=== PATIENT | male | born 1950 | race Caucasian/White ===

== ENCOUNTER 2019-12-15 13:04 | Inpatient (IN) | payer MEDICARE, OTHER ==
[~2019-12-15] VITALS: Ht 167.6 cm; Wt 65.3 kg
--- OUTSIDE RECORDS SUMMARY | ~2019-12-15 | XMS | Clinical Summary ---
Demographics + + + | Address | [address] | | | [place] [address] | + + + | Home Phone | | + + + | Preferred Language | Unknown | + + + | Marital Status | | + + + | Congregation Affiliation | Unknown | + + + | Race | Unknown | + + + | Ethnic Group | Unknown | + + + Author + + + | Author | [facility] | | | and [place] | + + + | Organization | [facility] | | | [...] | | | | | [place] [address] | | + + + + + Care Team Providers + +------+ + | Care Managing Partner [employer] Name | Role | Phone | + +------+ + | No, Physician | PCP | Unavailable | + +------+ + Allergies + + + + + + | Active Allergy | Reactions | Severity | Noted | Comments | | | | | Date | | + + + + + + | Vegetable Oil | GI Upset | Medium | 10/31/19 | Pt states that he | | | | | 18 | gets upset stomach | | | | | | when ingesting | | | | | | canola oil. | + + + + + + | Soybean Oil | GI Upset | Medium | 10/31/19 | Pt states he gets | | | | | 20 | upset stomach when | | | | | | he ingests soybean | | | | | | oil. | + + + + + + Medications + + + +---------+------+------+-------+ | Medication | Sig | Dispensed | Refills | Star | End | Statu | | | | | | t | Date | s | | | | | | Date | | | + + + +---------+------+------+-------+ | aspirin (ASPIRIN | Take 1 tablet (81 mg | 30 | 0 | 10/13 | | Activ | | ADULT LOW STRENGTH) | total) by mouth | tablet | | 0/20 | | e | | 81 MG EC tablet | Daily | | | 20 | | | + + + +---------+------+------+-------+ Active Problems Not on file Encounters +--------+ + + + + | Date | Type | Specialty | Care Team | Description | +--------+ + + + + | 10/30/ | Hospital | | Aki Capone, | Elevated troponin I | | 2019 - | Encounter | | Denzel Chan, | level (Primary Dx); | | | | | MD | Abnormal ECG; | | 10/31/ | | | | Fatigue, unspecified | | 2019 | | | | type; Generalized | | | | | | weakness | +--------+ + + + + | 10/30/ | Office | Immediate Care | Alex Frias | Dizziness (Primary | | 2019 | Visit | | [place] | Dx) | +--------+ + + + + from Last 3 Months Social History + +-------+ +--------+------+ | Tobacco Use | Types | Packs/Day | Years | Date | | | | | Used | | + +-------+ +--------+------+ | Never Smoker | | | | | + +-------+ +--------+------+ + +------+---+---+ | Smokeless Tobacco: | Chew | | | | Current User | | | | + +------+---+---+ + + + | Sex Assigned at | Date Recorded | | | | + + + | Not on file | | + + + Last Filed Vital Signs + + + + + | Vital Sign | Reading | Time Taken | Comments | + + + + + | Blood Pressure | 118/72 | 11/01/2019 7:54 AM | | | | | PDT | | + + + + + | Pulse | 90 | 11/01/2019 7:54 AM | | | | | PDT | | + + + + + | Temperature | 37 C (98.6 F) | 11/01/2019 7:54 AM | | | | | PDT | | + + + + + | Respiratory Rate | 18 | 11/01/2019 7:54 AM | | | | | PDT | | + + + + + | Oxygen Saturation | 96% | 11/01/2019 7:54 AM | | | | | PDT | | + + + + + | Inhaled Oxygen | - | - | | | Concentration | | | | + + + + + | Weight | 63.6 kg (140 lb 3.4 | 11/01/2019 3:29 AM | | | | oz) | PDT | | + + + + + | Height | 165.1 cm (5' 5") | 10/31/2019 11:33 AM | | | | | PDT | | + + + + + | Body Mass Index | 23.33 | 10/31/2019 11:33 AM | | | | | PDT | | + + + + + Plan of Treatment + + + + + | Health Maintenance | Due Date | Last | Comments | | | | Done | | + + + + + | Hepatitis C | | | | | Screening | 9 | | | + + + + + | Vaccine: | | | | | Dtap/Tdap/Td (1 - | 8 | | | | Tdap) | | | | + + + + + | Colorectal Cancer | | | | | Screening | 9 | | | | (Colonoscopy) | | | | + + + + + | Vaccine: Zoster (1 | | | | | of 2) | 9 | | | + + + + + | Vaccine: | | | | | Pneumococcal 65+ (1 | 4 | | | | of 1 - PPSV23) | | | | + + + + + | Adult Annual | | | | | Wellness Visit | 0 | | | + + + + + | Vaccine: Influenza | | | | | (#1) | 0 | | | + + + + + | Hemoglobin A1c | | 10/31/19 | | | Screening | 1 | 20 | | + + + + + Procedures + +--------+ + + + | Procedure Name | Priori | Date/Time | Associated Diagnosis | Comments | | | ty | | | | + +--------+ + + + | TROPONIN I | Routin | 11/01/2019 | | Results for this | | | e | 11:54 AM | | procedure are in the | | | | PDT | | results section. | + +--------+ + + + | TROPONIN I | Routin | 11/01/2019 | | Results for this | | | e | 5:44 AM | | procedure are in the | | | | PDT | | results section. | + +--------+ + + + | PROTIME INR | Routin | 11/01/2019 | | Results for this | | | e | 4:34 AM | | procedure are in the | | | | PDT | | results section. | + +--------+ + + + | MAGNESIUM | Routin | 11/01/2019 | | Results for this | | | e | 4:34 AM | | procedure are in the | | | | PDT | | results section. | + +--------+ + + + | CBC NO DIFFERENTIAL | Routin | 11/01/2019 | | Results for this | | | e | 4:34 AM | | procedure are in the | | | | PDT | | results section. | + +--------+ + + + | BASIC METABOLIC | Routin | 11/01/2019 | | Results for this | | PANEL | e | 4:34 AM | | procedure are in the | | | | PDT | | results section. | + +--------+ + + + | TROPONIN I | Routin | 11/01/2019 | | Results for this | | | e | 12:17 AM | | procedure are in the | | | | PDT | | results section. | + +--------+ + + + | HEMOGLOBIN A1C | Add-On | 10/31/2019 | | Results for this | | | | 8:03 PM | | procedure are in the | | | | PDT | | results section. | + +--------+ + + + | TROPONIN I | Routin | 10/31/2019 | | Results for this | | | e | 6:23 PM | | procedure are in the | | | | PDT | | results section. | + +--------+ + + + | ECHO COMPLETE | Routin | 10/31/2019 | | Results for this | | | e | 5:24 PM | | procedure are in the | | | | PDT | | results section. | + +--------+ + + + | ECG 12 LEAD | STAT | 10/31/2019 | | Results for this | | | | 1:12 PM | | procedure are in the | | | | PDT | | results section. | + +--------+ + + + | PROCALCITONIN, SERUM | STAT | 10/31/2019 | | Results for this | | | | 12:08 PM | | procedure are in the | | | | PDT | | results section. | + +--------+ + + + | XR CHEST AP PORTABLE | STAT | 10/31/2019 | | Results for this | | | | 12:04 PM | | procedure are in the | | | | PDT | | results section. | + +--------+ + + + | AMMONIA | STAT | 10/31/2019 | | Results for this | | | | 11:53 AM | | procedure are in the | | | | PDT | | results section. | + +--------+ + + + | CBC WITH | STAT | 10/31/2019 | | Results for this | | DIFFERENTIAL | | 11:49 AM | | procedure are in the | | | | PDT | | results section. | + +--------+ + + + | LIPID PANEL | Add-On | 10/31/2019 | | Results for this | | | | 11:48 AM | | procedure are in the | | | | PDT | | results section. | + +--------+ + + + | C-REACTIVE PROTEIN | Routin | 10/31/2019 | | Results for this | | | e | 11:48 AM | | procedure are in the | | | | PDT | | results section. | + +--------+ + + + | LIPASE | STAT | 10/31/2019 | | Results for this | | | | 11:48 AM | | procedure are in the | | | | PDT | | results section. | + +--------+ + + + | CK TOTAL | STAT | 10/31/2019 | | Results for this | | | | 11:48 AM | | procedure are in the | | | | PDT | | results section. | + +--------+ + + + | B TYPE NATRIURETIC | STAT | 10/31/2019 | | Results for this | | PEPTIDE | | 11:48 AM | | procedure are in the | | | | PDT | | results section. | + +--------+ + + + | MAGNESIUM | STAT | 10/31/2019 | | Results for this | | | | 11:48 AM | | procedure are in the | | | | PDT | | results section. | + +--------+ + + + | TSH | STAT | 10/31/2019 | | Results for this | | | | 11:48 AM | | procedure are in the | | | | PDT | | results section. | + +--------+ + + + | PROTIME INR | STAT | 10/31/2019 | | Results for this | | | | 11:48 AM | | procedure are in the | | | | PDT | | results section. | + +--------+ + + + | TROPONIN I | STAT | 10/31/2019 | | Results for this | | | | 11:48 AM | | procedure are in the | | | | PDT | | results section. | + +--------+ + + + | COMPREHENSIVE | STAT | 10/31/2019 | | Results for this | | METABOLIC PANEL | | 11:48 AM | | procedure are in the | | | | PDT | | results section. | + +--------+ + + + | ECG 12 LEAD | STAT | 10/31/2019 | | Results for this | | | | 11:47 AM | | procedure are in the | | | | PDT | | results section. | + +--------+ + + + | OXYGEN THERAPY | STAT | 10/31/2019 | | | | | | 11:31 AM | | | | | | PDT | | | + +--------+ + + + | RHYTHM ECG, REPORT | Routin | 10/31/2019 | | Results for this | | | e | 11:30 AM | | procedure are in the | | | | PDT | | results section. | + +--------+ + + + | RHYTHM ECG, REPORT | Routin | 10/31/2019 | | Results for this | | | e | 11:30 AM | | procedure are in the | | | | PDT | | results section. | + +--------+ + + + | ECG 12 LEAD | Routin | 10/31/2019 | Dizziness | Results for this | | | e | 10:56 AM | | procedure are in the | | | | PDT | | results section. | + +--------+ + + + from Last 3 Months Results Troponin I (11/01/2019 11:54 AM PDT)Only the most recent of 5 results within the time perio d is included. + + + + + + | Component | Value | Ref Range | Performed | Pathologist | | | | | At | Signature | + + + + + + | Troponin I | 0.04Comment: | <0.06 ng/mL | [facility] | | | | Comment:Reference | | [facility] | | | | Ranges: 0.00-0.06 = | | MEDICAL | | | | NORMAL >0.06 = | | CENTER - | | | | SUSPICIOUS FOR | | LABORATORY | | | | MYOCARDIAL DAMAGE NOTE: | | | | | | Values greater than | | | | | | 0.78 ng/mL have been | | | | | | shown to be strongly | | | | | | associated with acute | | | | | | myocardial infarction. | | | | | | The [employer] | | | | | | Cardiology (ACC) | | | | | | recommends a decision | | | | | | limit of 0.06 ng/mL for | | | | | | this assay. Results | | | | | | greater than 0.06 can | | | | | | reflect a pre-infarct | | | | | | acute coronary syndrome, | | | | | | but can also reflect | | | | | | myocardial necrosis or | | | | | | injury that is not due | | | | | | to coronary artery | | | | | | disease. Some of these | | | | | | causes are sepsis, | | | | | | hypocolemia, atrial | | | | | | fibrillation, heart | | | | | | failure, pulmonary | | | | | | embolism, myocarditis, | | | | | | myocardial contusion, | | | | | | and renal failure. The | | | | | | diagnosis of myocardial | | | | | | infarction should be | | | | | | based on a combination | | | | | | of the patient's | | | | | | clinical presentation | | | | | | and the clinical | | | | | | laboratory test results | | | | | | (especially serial | | | | | | troponin levels). | | | | + + + + + + + + | Specimen | + + | Blood | + + + + + + + | Performing | Address | City/State/Zipcode | Phone Number | | Organization | | | | + + + + + | [facility] | [address] | [place] | [phone] | | [facility] | | [address] | | | - LABORATORY | | | | + + + + + Protime INR (11/01/2019 4:34 AM PDT)Only the most recent of 2 results within the time tomás od is included. + + + + + + | Component | Value | Ref Range | Performed | Pathologist | | | | | At | Signature | + + + + + + | Prothrombin | 13.8 | 11.3 - 13.9 | [facility] | | | Time | | seconds | [facility] | | | | | | MEDICAL | | | | | | CENTER - | | | | | | LABORATORY | | + + + + + + | INR | 1.0Comment: Usual Oral | 0.9 - 1.1 | [facility] | | | | Anticoagulation Range: | | [facility] | | | | 2.0 - 3.0High | | MEDICAL | | | | Level Oral | | CENTER - | | | | Anticoagulation Range: | | LABORATORY | | | | 2.5 - 3.5 | | | | + + + + + + + + | Specimen | + + | Blood | + + + + + + + | Performing | Address | City/State/Zipcode | Phone Number | | Organization | | | | + + + + + | [facility] | [address] | [place] | [phone] | | [facility] | | [address] | | | - LABORATORY | | | | + + + + + CBC no Differential (11/01/2019 4:34 AM PDT) + + + + + + | Component | Value | Ref Range | Performed | Pathologist | | | | | At | Signature | + + + + + + | White Blood | 10.0 | 4.0 - 11.0 K/uL | [facility] | | | Cells | | | [facility] | | | | | | MEDICAL | | | | | | CENTER - | | | | | | LABORATORY | | + + + + + + | Red Blood | 3.86 (L) | 4.30 - 5.70 | [facility] | | | Cells | | M/uL | [facility] | | | | | | MEDICAL | | | | | | CENTER - | | | | | | LABORATORY | | + + + + + + | Hemoglobin | 10.8 (L) | 13.5 - 18.0 | [facility] | | | | | g/dL | [facility] | | | | | | MEDICAL | | | | | | CENTER - | | | | | | LABORATORY | | + + + + + + | Hematocrit | 32.9 (L) | 40.0 - 51.0 % | [facility] | | | | | | [facility] | | | | | | MEDICAL | | | | | | CENTER - | | | | | | LABORATORY | | + + + + + + | MCV | 85.2 | 83.0 - 101.0 fL | [facility] | | | | | | [facility] | | | | | | MEDICAL | | | | | | CENTER - | | | | | | LABORATORY | | + + + + + + | MCH | 28.0 | 28.0 - 35.0 pg | [facility] | | | | | | [facility] | | | | | | MEDICAL | | | | | | CENTER - | | | | | | LABORATORY | | + + + + + + | MCHC | 32.8 | 32.0 - 36.0 | [facility] | | | | | g/dL | [facility] | | | | | | MEDICAL | | | | | | CENTER - | | | | | | LABORATORY | | + + + + + + | RDW-CV | 14.6 | <15.0 % | [facility] | | | | | | [facility] | | | | | | MEDICAL | | | | | | CENTER - | | | | | | LABORATORY | | + + + + + + | RDW-SD | 45.0 | 35.1 - 46.3 fL | [facility] | | | | | | [facility] | | | | | | MEDICAL | | | | | | CENTER - | | | | | | LABORATORY | | + + + + + + | Platelet | 233 | 140 - 440 K/uL | [facility] | | | Count | | | [facility] | | | | | | MEDICAL | | | | | | CENTER - | | | | | | LABORATORY | | + + + + + + | MPV | 9.5 | 6.5 - 12.4 fL | [facility] | | | | | | [facility] | | | | | | MEDICAL | | | | | | CENTER - | | | | | | LABORATORY | | + + + + + + | % nRBC | 0 | 0 - 2 per 100 | [facility] | | | | | WBCs | [facility] | | | | | | MEDICAL | | | | | | CENTER - | | | | | | LABORATORY | | + + + + + + | Absolute | 0.00 | 0.00 - 0.01 | [facility] | | | nRBC | | K/uL | [facility] | | | | | | MEDICAL | | | | | | CENTER - | | | | | | LABORATORY | | + + + + + + + + | Specimen | + + | Blood | + + + + + + + | Performing | Address | City/State/Zipcode | Phone Number | | Organization | | | | + + + + + | [facility] | [address] | [place] | [phone] | | [facility] | | [address] | | | - LABORATORY | | | | + + + + + Magnesium (11/01/2019 4:34 AM PDT)Only the most recent of 2 results within the time period is included. + +-------+ + + + | Component | Value | Ref Range | Performed | Pathologist | | | | | At | Signature | + +-------+ + + + | Magnesium | 2.1 | 1.6 - 2.6 mg/dL | [facility] | | | | | | [facility] | | | | | | MEDICAL | | | | | | CENTER - | | | | | | LABORATORY | | + +-------+ + + + + + | Specimen | + + | Blood | + + + + + + + | Performing | Address | City/State/Zipcode | Phone Number | | Organization | | | | + + + + + | [facility] | [address] | [place] | [phone] | | [facility] | | [address] | | | - LABORATORY | | | | + + + + + Basic Metabolic Panel (11/01/2019 4:34 AM PDT) + + + + + + | Component | Value | Ref Range | Performed | Pathologist | | | | | At | Signature | + + + + + + | Na | 132 (L) | 136 - 145 | [facility] | | | | | mmol/L | [facility] | | | | | | MEDICAL | | | | | | CENTER - | | | | | | LABORATORY | | + + + + + + | K | 4.3 | 3.4 - 5.1 | [facility] | | | | | mmol/L | [facility] | | | | | | MEDICAL | | | | | | CENTER - | | | | | | LABORATORY | | + + + + + + | Cl | 98 | 98 - 107 mmol/L | [facility] | | | | | | [facility] | | | | | | MEDICAL | | | | | | CENTER - | | | | | | LABORATORY | | + + + + + + | CO2 | 24 | 20 - 31 mmol/L | [facility] | | | | | | [facility] | | | | | | MEDICAL | | | | | | CENTER - | | | | | | LABORATORY | | + + + + + + | Anion Gap | 10 | 3 - 16 mmol/L | [facility] | | | | | | [facility] | | | | | | MEDICAL | | | | | | CENTER - | | | | | | LABORATORY | | + + + + + + | Glucose | 109 (H) | 60 - 106 mg/dL | [facility] | | | | | | [facility] | | | | | | MEDICAL | | | | | | CENTER - | | | | | | LABORATORY | | + + + + + + | BUN | 17 | 9 - 23 mg/dL | [facility] | | | | | | [facility] | | | | | | MEDICAL | | | | | | CENTER - | | | | | | LABORATORY | | + + + + + + | Creatinine | 0.95 | 0.70 - 1.30 | [facility] | | | | | mg/dL | [facility] | | | | | | MEDICAL | | | | | | CENTER - | | | | | | LABORATORY | | + + + + + + | eGFR, | >60Comment: GLOMERULAR | >=60 | [facility] | | | non- | FILTRATION | mL/min/1.73m2 | [facility] | | | [place] | RATE,ESTIMATED | | MEDICAL | | | | mL/min/1.24n1Pnpb than | | CENTER - | | | | 60 Chronic kidney | | LABORATORY | | | | disease,if found over a | | | | | | 3-month period.Less than | | | | | | 15 Kidney failureFor | | | | | | | | | | | | Americans,multiply the | | | | | | calculated GFR by 1.21. | | | | | | | | | | + + + + + + | Calcium | 8.6 (L) | 8.7 - 10.4 | [facility] | | | | | mg/dL | [facility] | | | | | | MEDICAL | | | | | | CENTER - | | | | | | LABORATORY | | + + + + + + | BUN/Creatin | 17.9 | | [facility] | | | ine Ratio | | | [facility] | | | | | | MEDICAL | | | | | | CENTER - | | | | | | LABORATORY | | + + + + + + + + | Specimen | + + | Blood | + + + + + + + | Performing | Address | City/State/Zipcode | Phone Number | | Organization | | | | + + + + + | [facility] | [address] | [place] | [phone] | | [facility] | | [address] | | | - LABORATORY | | | | + + + + + Hemoglobin A1C (10/31/2019 8:03 PM PDT) + +---------+ + + + | Component | Value | Ref Range | Performed | Pathologist | | | | | At | Signature | + +---------+ + + + | Hemoglobin | 6.2 (H) | 4.3 - 6.0 % | [facility] | | | A1c | | | [facility] | | | | | | MEDICAL | | | | | | CENTER - | | | | | | LABORATORY | | + +---------+ + + + | Estimated | 131 | mg/dL | [facility] | | | Average | | | [facility] | | | Glucose | | | MEDICAL | | | | | | CENTER - | | | | | | LABORATORY | | + +---------+ + + + + + | Specimen | + + | Blood | + + + + + + + | Performing | Address | City/State/Zipcode | Phone Number | | Organization | | | | + + + + + | [facility] | [address] | [place], [place] | [phone] | | [facility] | | [address] | | | - LABORATORY | | | | + + + + + ECHO Complete (10/31/2019 5:24 PM PDT) + +--------+ + + + | Component | Value | Ref Range | Performed | Pathologist | | | | | At | Signature | + +--------+ + + + | LVIDd | 4.95 | cm | [facility] | | + +--------+ + + + | FS | 28 | % | [facility] | | + +--------+ + + + | LA volume | 55.52 | mL | [facility] | | + +--------+ + + + | Ascending | 3.19 | cm | [facility] | | | aorta | | | | | + +--------+ + + + | AV mean | 2.84 | mmHg | [facility] | | | gradient | | | | | + +--------+ + + + | Aortic | 2.36 | cm2 | [facility] | | | Valve Area | | | | | | by | | | | | | Continuity | | | | | | VTI | | | | | + +--------+ + + + | MV mean | 2.19 | mmHg | [facility] | | | gradient | | | | | + +--------+ + + + | MV Area by | 3.37 | cm2 | [facility] | | | P 1/2 | | | | | | method | | | | | + +--------+ + + + | MV Area by | 1.89 | cm2 | [facility] | | | Continuity | | | | | | Equation | | | | | + +--------+ + + + | IVRT | 89.97 | msec | [facility] | | + +--------+ + + + | LVOT | 1.94 | cm | [facility] | | | diameter | | | | | + +--------+ + + + | LVOT peak | 86.65 | cm/s | [facility] | | | pierre | | | | | + +--------+ + + + | LVOT peak | 16.29 | cm | [facility] | | | VTI | | | | | + +--------+ + + + | AV peak pierre | 115.4 | cm/s | [facility] | | + +--------+ + + + | AV VTI | 20.39 | cm | [facility] | | + +--------+ + + + | MR max pierre | 432.53 | cm/s | [facility] | | + +--------+ + + + | AV peak | 5.33 | mmHg | [facility] | | | gradient | | | | | + +--------+ + + + | MV peak | 4.83 | mmHg | [facility] | | | gradient | | | | | + +--------+ + + + | MV VTI | 131.1 | cm | [facility] | | + +--------+ + + + | MV Pressure | 65.28 | msec | [facility] | | | 1/2 time | | | | | + +--------+ + + + | LA Volume | 32 | mL/m2 | [facility] | | | Index | | | | | + +--------+ + + + | AV LVOT | 3 | mmHg | [facility] | | | Peak | | | | | | Gradient | | | | | + +--------+ + + + | AV LVOT | 1.55 | mmHg | [facility] | | | Mean | | | | | | Gradient | | | | | + +--------+ + + + | TR Peak | 22 | mmHg | [facility] | | | Gradient | | | | | + +--------+ + + + | TR Velocity | 232.29 | cm/s | [facility] | | + +--------+ + + + | LV | 8.21 | cm | [facility] | | | Diastolic | | | | | | Length 4C | | | | | + +--------+ + + + | LV | 60 | % | [facility] | | | Ordaz's | | | | | | Biplane EF | | | | | + +--------+ + + + | LV ED | 77.26 | ml | [facility] | | | Volume | | | | | | (Ordaz's) | | | | | + +--------+ + + + | LV ED | 45 | ml/m2 | [facility] | | | Volume | | | | | | Index | | | | | + +--------+ + + + | LV ES | 30.9 | ml | [facility] | | | Volume | | | | | + +--------+ + + + | LVOT Mean | 57.41 | cm/s | [facility] | | | Velocity | | | | | + +--------+ + + + | MV E' | 10 | cm/s | [facility] | | | Septal | | | | | | Velocity | | | | | + +--------+ + + + | MV | 512.73 | cm/s2 | [facility] | | | Deceleratio | | | | | | n [place] | | | | | + +--------+ + + + | MV | 225.1 | msec | [facility] | | | Deceleratio | | | | | | n Time | | | | | + +--------+ + + + | MV E/A | 0.94 | | [facility] | | | Ratio | | | | | + +--------+ + + + | MV Mean | 68.57 | cm/s | [facility] | | | Velocity | | | | | + +--------+ + + + | MV Peak | 122.56 | cm/s | [facility] | | | A-Wave | | | | | + +--------+ + + + | MV Peak | 115.42 | cm/s | [facility] | | | E-Wave | | | | | + +--------+ + + + | AV Mean | 77.55 | cm/s | [facility] | | | Velocity | | | | | + +--------+ + + + | RA Area | 7.84 | cm2 | [facility] | | + +--------+ + + + | LA/Aorta | 1.36 | | [facility] | | | Ratio | | | | | + +--------+ + + + | LA Area | 19.84 | cm2 | [facility] | | + +--------+ + + + | MV E/E | 11.54 | | [facility] | | | SEPTAL | | | | | + +--------+ + + + | LA Major | 0.2039 | cm | [facility] | | + +--------+ + + + | LV ES | 18 | ml/m2 | [facility] | | | Volume | | | | | | Index | | | | | + +--------+ + + + | Vitals | 165.1 | | [facility] | | | Height | | | | | + +--------+ + + + | Vitals | 66.00 | | [facility] | | | Weight | | | | | + +--------+ + + + | Aortic Root | 3.09 | cm | [facility] | | | Diameter | | | | | + +--------+ + + + | IVS | 1.03 | cm | [facility] | | | Diastolic | | | | | | Thickness | | | | | | MM | | | | | + +--------+ + + + | LVPW | 1 | cm | [facility] | | | Diastolic | | | | | | Thickness | | | | | | MM | | | | | + +--------+ + + + | IVS | 1.16 | cm | [facility] | | | Systolic | | | | | | Thickness | | | | | | MM | | | | | + +--------+ + + + | LV Systolic | 3.57 | cm | [facility] | | | Diameter | | | | | | MM | | | | | + +--------+ + + + | LVPW | 1.39 | cm | [facility] | | | Systolic | | | | | | Thickness | | | | | | MM | | | | | + +--------+ + + + | AV Cusp | 2.05 | cm | [facility] | | | Seperation | | | | | | MM | | | | | + +--------+ + + + | LA Systolic | 4.19 | cm | [facility] | | | Diameter | | | | | | MM | | | | | + +--------+ + + + | TAPSE | 1.9 | cm | [facility] | | + +--------+ + + + | LVEF-TTE | 60 | | [facility] | | | TRANSTHORAC | | | | | | IC ECHO | | | | | + +--------+ + + + + + | Specimen | + + | | + + + + -+ | Narrative | Performed At | + + -+ | Transthoracic | [facility] | | Echocardiography Report (TTE) Demographics Patient Name CHEYANNE | | | REILLY Room Number 428 | | | SUSHIL Patient Number [id number] Date of Study | | | 10/31/2019 Visit Number [id number] | | | Referring Physician ALICE BATES | | | Family Law Specialist KARIME AVITIA Number Date of | | | 1950 Daniela BAKER | | | MD DIANA | | | Physician Age 69 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 Procedure | | | DateDate: 10/31/2019 Start: 04:43 PM Study Location: Adult | | | FloorTechnical Quality: Adequate visualization Patient Status: Routine | | | Height: 65 inches Weight: 145 pounds BSA: 1.73 m^2 BMI: 24.13 kg/m^2 | | | HR: 79 bpm Conclusions Summary Left ventricle is normal in size and | | | function. Ejection fraction is estimated at 55-60%. Impaired | | | relaxation compatible with diastolic dysfunction (reversed E/A ratio). | | | Mitral valve is thickened with mild annular calcification, borderline | | | prolapse, and an eccentric jet of severe insufficiency directed | | | towards inter-atrial septum. Structurally normal tricuspid valve with | | | mild insufficiency and peak velocity consistent with normal pulmonary | | | pressures. Left atrium is mildly enlarged. No previous studies | | | available for comparison. Signature | | | | | | Electronically signed by SAMUEL ORTIZ MD (Interpreting physician) on | | | 10/31/2019 at 06:04 PM | | | | | | Structures Left Atrium LA Dimension: 4.19 cm | | | LA Area: 19.84 cm^2 LA/Aorta: 1.36 LA Volume/Index: 55.52 ml | | | /32m^2 Left Atrium Findings Left atrium is mildly enlarged. Left | | | Ventricle Diastolic Dimension: 4.95 cm Systolic | | | Dimension: 3.57 cm Septum Diastolic: 1.03 cm Septum | | | Systolic: 1.16 cm PW Diastolic: 1 cm PW | | | Systolic: 1.39 cm EF Estimated: 60% FS: | | | 27.9 % LV EDV/LV EDV Index: 77.26 ml/45 m^2 LV ESV/LV ESV Index: | | | 30.9 ml/18 m^2 EF Calculated: 60% LV | | | Length: 8.21 cm | | | CI: 2.2 l/min*m^2 CO: 3.8 l/min | | | IVRT: 90 msec LVOT Diameter: 1.94 cm Left Ventricle Findings Left | | | ventricle is normal in size and function. Ejection fraction is | | | estimated at 55-60%. Impaired relaxation compatible with diastolic | | | dysfunction (reversed E/A ratio). Right Atrium | | | RA Area: 7.84 cm^2 Right Atrium Findings | | | Normal right atrial size. Right Ventricle Right Ventricle Findings | | | Normal right ventricular size. Right ventricle global systolic | | | function is normal. TAPSE = 1.9 cm. MiscellaneousAorta Aortic Root: | | | 3.09 cm Ascending Aorta: 3.19 cm LVOT Diameter: 1.94 cm Miscellaneous | | | FindingsAortic root is of normal size. Pericardium Pericardial | | | Effusion Findings No evidence of pericardial effusion. Pleura | | | Pleural Effusion Findings No evidence of pleural effusion. Valves | | | Mitral Valve Peak E-Wave: 115.42 cm/s Peak A-Wave: | | | 122.56 cm/s P1/2t: 65.3 msec E/A Ratio: | | | 0.94 Mean Velocity: 68.57 cm/s Peak Gradient: 4.83 | | | mmHg Mean Gradient: 2.19 mmHg Deceleration Time: | | | 225.1 msec Area (PHT): 3.37 cm^2 Area | | | (continuity): 1.89 cm^2 MR Velocity: 432.53 cm/s MR | | | VTI: 131.1 cm Tissue Doppler E' Septal Velocity: 10 cm/s Mitral | | | Valve Findings Mitral valve is thickened with mild annular | | | calcification, borderline prolapse, and an eccentric jet of severe | | | insufficiency directed towards inter-atrial septum. Aortic Valve | | | Peak Velocity: 115.4 cm/s Mean Velocity: 77.55 cm/s | | | Peak Gradient: 5.33 mmHg Mean Gradient: 2.84 mmHg | | | Area (continuity): 2.36 cm^2 AV VTI: 20.39 cm Cusp Separation: 2.05 | | | cm Aortic Valve Findings Aortic valve is trileaflet without | | | significant stenosis or regurgitation. Tricuspid Valve TR Velocity: | | | 232.29 cm/s TR Gradient: 21.58 mmHg Tricuspid | | | Valve Findings Structurally normal tricuspid valve with mild | | | insufficiency and peak velocity consistent with normal pulmonary | | | pressures. Pulmonic Valve Pulmonic Valve Findings Normal pulmonic | | | valve structure and function. Normal pulmonary valve and RVOT flow by | | | color and Doppler flow imaging. LVOT Peak Velocity: 86.65 cm/s | | | Mean Velocity: 57.41 cm/s Peak Gradient: 3 mmHg | | | Mean Gradient: 1.55 mmHg LVOT Diameter: 1.94 cm | | | LVOT VTI: 16.29 cm | | | Septum Diastolic: 1.03 cm Septum Systolic: 1.16 cm | | | PW Diastolic: 1 cm PW Systolic: 1.39 cm | | | EF Estimated: 60% FS: 27.9 % | | | LV EDV/LV EDV Index: 77.26 ml/45 m^2 LV ESV/LV ESV Index: 30.9 ml/18 m^2 | | | EF Calculated: 60% LV Length: 8.21 cm | | | CI: 2.2 l/min*m^2 | | | CO: 3.8 l/min IVRT: 90 msec | | | LVOT Diameter: 1.94 cm | | | | | | Left Ventricle Findings | | | Left ventricle is normal in size and function. Ejection fraction is | | | estimated at 55-60%. | | | Impaired relaxation compatible with diastolic dysfunction (reversed E/A | | | ratio). | | | | | | Right Atrium | | | | | | RA Area: 7.84 cm^2 | | | | | | Right Atrium Findings | | | Normal right atrial size. | | | | | | Right Ventricle | | | | | | Right Ventricle Findings | | | Normal right ventricular size. | | | Right ventricle global systolic function is normal. | | | TAPSE = 1.9 cm. | | | | | |Miscellaneous | | |Aorta | | | | | | Aortic Root: 3.09 cm | | | Ascending Aorta: 3.19 cm | | | LVOT Diameter: 1.94 cm | | | | | |Miscellaneous Findings | | |Aortic root is of normal size. | | | | | | Pericardium | | | | | | Pericardial Effusion Findings | | | No evidence of pericardial effusion. | | | | | | Pleura | | | | | | Pleural Effusion Findings | | | No evidence of pleural effusion. | | | | | |Valves | | | | | | Mitral Valve | | | | | | Peak E-Wave: 115.42 cm/s Peak A-Wave: 122.56 cm/s | | | P1/2t: 65.3 msec E/A Ratio: 0.94 | | | Mean Velocity: 68.57 cm/s Peak Gradient: 4.83 mmHg | | | Mean Gradient: 2.19 mmHg Deceleration Time: 225.1 msec | | | Area (PHT): 3.37 cm^2 Area (continuity): 1.89 cm^2 | | | MR Velocity: 432.53 cm/s MR VTI: 131.1 cm | | | | | | Tissue Doppler | | | | | | E' Septal Velocity: 10 cm/s | | | | | | Mitral Valve Findings | | | Mitral valve is thickened with mild annular calcification, borderline | | | prolapse, and an eccentric jet of severe insufficiency directed towards | | | inter-atrial septum. | | | | | | Aortic Valve | | | | | | Peak Velocity: 115.4 cm/s Mean Velocity: 77.55 cm/s | | | Peak Gradient: 5.33 mmHg Mean Gradient: 2.84 mmHg | | | Area (continuity): 2.36 cm^2 | | | AV VTI: 20.39 cm | | | | | | Cusp Separation: 2.05 cm | | | | | | Aortic Valve Findings | | | Aortic valve is trileaflet without significant stenosis or regurgitation. | | | | | | Tricuspid Valve | | | | | | TR Velocity: 232.29 cm/s TR Gradient: 21.58 mmHg | | | | | | Tricuspid Valve Findings | | | Structurally normal tricuspid valve with mild insufficiency and peak | | | velocity consistent with normal pulmonary pressures. | | | | | | Pulmonic Valve | | | | | | Pulmonic Valve Findings | | | Normal pulmonic valve structure and function. Normal pulmonary valve and | | | RVOT flow by color and Doppler flow imaging. | | | | | | LVOT | | | | | | Peak Velocity: 86.65 cm/s Mean Velocity: 57.41 cm/s | | | Peak Gradient: 3 mmHg Mean Gradient: 1.55 mmHg | | | LVOT Diameter: 1.94 cm LVOT VTI: 16.29 cm | | | | | + + -+ + + | Procedure Note | + + | Juan, Rad Results In - 10/31/2019 6:04 PM PDT Transthoracic Echocardiography Report | | (TTE) Demographics Patient Name CHEYANNE SIMMS Room Number 428 | | SUSHIL Patient Number [id number] Date of Study 10/31/2019 Visit | | Number [id number] Referring Physician ALICE BATES Accession | | [id number] Family Law Specialist KARIME AVITIA Number Date of | | 1950 Interpreting SAMUEL ORTIZ MD | | Physician Age 69 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 Ejection fraction is estimated at 55-60%. Impaired relaxation | | compatible with diastolic dysfunction (reversed E/A ratio). Mitral valve is thickened | | with mild annular calcification, borderline prolapse, and an eccentric jet of severe | | insufficiency directed towards inter-atrial septum. Structurally normal tricuspid valve | | with mild insufficiency and peak velocity consistent with normal pulmonary pressures. | | Left atrium is mildly enlarged. No previous studies available for comparison. Signature | | | | Structures Left Atrium | | LA Dimension: 4.19 cm LA Area: 19.84 cm^2 LA/Aorta: 1.36 LA | | Volume/Index: 55.52 ml /32m^2 Left Atrium Findings Left atrium is mildly enlarged. Left | | Ventricle Diastolic Dimension: 4.95 cm Systolic Dimension: 3.57 cm Septum | | Diastolic: 1.03 cm Septum Systolic: 1.16 cm PW Diastolic: 1 cm | | PW Systolic: 1.39 cm EF Estimated: 60% FS: 27.9 % LV EDV/LV | | EDV Index: 77.26 ml/45 m^2 LV ESV/LV ESV Index: 30.9 ml/18 m^2 EF Calculated: 60% | | LV Length: 8.21 cm CI: 2.2 l/min*m^2 | | CO: 3.8 l/min IVRT: 90 msec LVOT Diameter: 1.94 cm Left | | Ventricle Findings Left ventricle is normal in size and function. Ejection fraction is | | estimated at 55-60%. Impaired relaxation compatible with diastolic dysfunction (reversed | | E/A ratio). Right Atrium RA Area: 7.84 cm^2 Right Atrium | | Findings Normal right atrial size. Right Ventricle Right Ventricle Findings Normal right | | ventricular size. Right ventricle global systolic function is normal. TAPSE = 1.9 | | cm.MiscellaneousAorta Aortic Root: 3.09 cm Ascending Aorta: 3.19 cm LVOT Diameter: 1.94 | | cmMiscellaneous FindingsAortic root is of normal size. Pericardium Pericardial Effusion | | Findings No evidence of pericardial effusion. Pleura Pleural Effusion Findings No | | evidence of pleural effusion.Valves Mitral Valve Peak E-Wave: 115.42 cm/s | | Peak A-Wave: 122.56 cm/s P1/2t: 65.3 msec E/A Ratio: 0.94 Mean | | Velocity: 68.57 cm/s Peak Gradient: 4.83 mmHg Mean Gradient: 2.19 mmHg | | Deceleration Time: 225.1 msec Area (PHT): 3.37 cm^2 Area | | (continuity): 1.89 cm^2 MR Velocity: 432.53 cm/s MR VTI: 131.1 cm Tissue | | Doppler E' Septal Velocity: 10 cm/s Mitral Valve Findings Mitral valve is thickened with | | mild annular calcification, borderline prolapse, and an eccentric jet of severe | | insufficiency directed towards inter-atrial septum. Aortic Valve Peak Velocity: 115.4 | | cm/s Mean Velocity: 77.55 cm/s Peak Gradient: 5.33 mmHg Mean | | Gradient: 2.84 mmHg Area (continuity): 2.36 cm^2 AV VTI: 20.39 cm Cusp Separation: 2.05 | | cm Aortic Valve Findings Aortic valve is trileaflet without significant stenosis or | | regurgitation. Tricuspid Valve TR Velocity: 232.29 cm/s TR Gradient: 21.58 | | mmHg Tricuspid Valve Findings Structurally normal tricuspid valve with mild | | insufficiency and peak velocity consistent with normal pulmonary pressures. Pulmonic | | Valve Pulmonic Valve Findings Normal pulmonic valve structure and function. Normal | | pulmonary valve and RVOT flow by color and Doppler flow imaging. LVOT Peak Velocity: | | 86.65 cm/s Mean Velocity: 57.41 cm/s Peak Gradient: 3 mmHg | | Mean Gradient: 1.55 mmHg LVOT Diameter: 1.94 cm LVOT VTI: 16.29 cm | | Signature | | | | | | | | | | | |Structures | | | | Left Atrium | | | | LA Dimension: 4.19 cm LA Area: 19.84 cm^2 | | LA/Aorta: 1.36 | | LA Volume/Index: 55.52 ml /32m^2 | | | | Left Atrium Findings | | Left atrium is mildly enlarged. | | | | Left Ventricle | | | | Diastolic Dimension: 4.95 cm Systolic Dimension: 3.57 cm | | Septum Diastolic: 1.03 cm Septum Systolic: 1.16 cm | | PW Diastolic: 1 cm PW Systolic: 1.39 cm | | EF Estimated: 60% FS: 27.9 % | | LV EDV/LV EDV Index: 77.26 ml/45 m^2 LV ESV/LV ESV Index: 30.9 ml/18 m^2 | | EF Calculated: 60% LV Length: 8.21 cm | | CI: 2.2 l/min*m^2 | | CO: 3.8 l/min IVRT: 90 msec | | LVOT Diameter: 1.94 cm | | | | Left Ventricle Findings | | Left ventricle is normal in size and function. Ejection fraction is | | estimated at 55-60%. | | Impaired relaxation compatible with diastolic dysfunction (reversed E/A | | ratio). | | | | Right Atrium | | | | RA Area: 7.84 cm^2 | | | | Right Atrium Findings | | Normal right atrial size. | | | | Right Ventricle | | | | Right Ventricle Findings | | Normal right ventricular size. | | Right ventricle global systolic function is normal. | | TAPSE = 1.9 cm. | | | |Miscellaneous | |Aorta | | | | Aortic Root: 3.09 cm | | Ascending Aorta: 3.19 cm | | LVOT Diameter: 1.94 cm | | | |Miscellaneous Findings | |Aortic root is of normal size. | | | | Pericardium | | | | Pericardial Effusion Findings | | No evidence of pericardial effusion. | | | | Pleura | | | | Pleural Effusion Findings | | No evidence of pleural effusion. | | | |Valves | | | | Mitral Valve | | | | Peak E-Wave: 115.42 cm/s Peak A-Wave: 122.56 cm/s | | P1/2t: 65.3 msec E/A Ratio: 0.94 | | Mean Velocity: 68.57 cm/s Peak Gradient: 4.83 mmHg | | Mean Gradient: 2.19 mmHg Deceleration Time: 225.1 msec | | Area (PHT): 3.37 cm^2 Area (continuity): 1.89 cm^2 | | MR Velocity: 432.53 cm/s MR VTI: 131.1 cm | | | | Tissue Doppler | | | | E' Septal Velocity: 10 cm/s | | | | Mitral Valve Findings | | Mitral valve is thickened with mild annular calcification, borderline | | prolapse, and an eccentric jet of severe insufficiency directed towards | | inter-atrial septum. | | | | Aortic Valve | | | | Peak Velocity: 115.4 cm/s Mean Velocity: 77.55 cm/s | | Peak Gradient: 5.33 mmHg Mean Gradient: 2.84 mmHg | | Area (continuity): 2.36 cm^2 | | AV VTI: 20.39 cm | | | | Cusp Separation: 2.05 cm | | | | Aortic Valve Findings | | Aortic valve is trileaflet without significant stenosis or regurgitation. | | | | Tricuspid Valve | | | | TR Velocity: 232.29 cm/s TR Gradient: 21.58 mmHg | | | | Tricuspid Valve Findings | | Structurally normal tricuspid valve with mild insufficiency and peak | | velocity consistent with normal pulmonary pressures. | | | | Pulmonic Valve | | | | Pulmonic Valve Findings | | Normal pulmonic valve structure and function. Normal pulmonary valve and | | RVOT flow by color and Doppler flow imaging. | | | | LVOT | | | | Peak Velocity: 86.65 cm/s Mean Velocity: 57.41 cm/s | | Peak Gradient: 3 mmHg Mean Gradient: 1.55 mmHg | | LVOT Diameter: 1.94 cm LVOT VTI: 16.29 cm | + + + +---------+ + + | Performing | Address | City/State/Zipcode | Phone Number | | Organization | | | | + +---------+ + + | [facility] | | | | + +---------+ + + ECG 12 lead (10/31/2019 1:12 PM PDT)Only the most recent of 3 results within the time tomás od is included. + + + + + + | Component | Value | Ref Range | Performed | Pathologist | | | | | At | Signature | + + + + + + | VENTRICULAR | 91 | BPM | [facility] | | | RATE EKG | | | | | + + + + + + | ATRIAL RATE | 91 | BPM | [facility] | | + + + + + + | P-R | 110 | ms | [facility] | | | INTERVAL | | | | | + + + + + + | QRS | 80 | ms | [facility] | | | DURATION | | | | | + + + + + + | Q-T | 384 | ms | [facility] | | | INTERVAL | | | | | + + + + + + | Q-T | 472 | ms | [facility] | | | INTERVAL | | | | | | (CORRECTED) | | | | | + + + + + + | P WAVE AXIS | -19 | degrees | [facility] | | + + + + + + | QRS AXIS | -20 | degrees | [facility] | | + + + + + + | T AXIS | 44 | degrees | [facility] | | + + + + + + | INTERPRETAT | Unusual P axis with | | [facility] | | | ION TEXT | short RI interval, | | | | | | possible ectopic atrial | | | | | | rhythm with premature | | | | | | atrial complexesPossible | | | | | | Inferior infarct , age | | | | | | undeterminedLong | | | | | | QTcOtherwise normal | | | | | | ECGWhen compared with | | | | | | ECG of 31-OCT-2019 | | | | | | 11:47, (Unconfirmed)No | | | | | | significant change was | | | | | | foundConfirmed by | | | | | | NICKOLAS ROMERO MD ([id number]) | | | | | | on 11/01/2019 10:47:37 AM | | | | | | | [...] | | | + +---------+ + + Procalcitonin (10/31/2019 12:08 PM PDT) + + + + + + | Component | Value | Ref Range | Performed | Pathologist | | | | | At | Signature | + + + + + + | Procalciton | 0.68 (H) | <=0.50 ng/mL | [facility] | | | in | | | [facility] | | | | | | [facility] | | | | | | [facility] - | | | | | | LABORATORY | | + + + + + + | Comment | Comment: < 0.50 | | [facility] | | | | ng/mL:Procalcitonin | | [facility] | | | | levels below 0.50 ng/mL | | MEDICAL | | | | on the first day of | | CENTER - | | | | admission represents a | | LABORATORY | | | | low risk for progression | | | | | | to severe sepsis and/or | | | | | | septic shock, however | | | | | | these do not exclude an | | | | | | infection, because | | | | | | localized infections | | | | | | (without systemic signs) | | | | | | may also be associated | | | | | | with such low levels. | | | | | | > 2.00 | | | | | | ng/mL:Procalcitonin | | | | | | levels above 2.00 ng/mL | | | | | | on the first day of | | | | | | admission represents a | | | | | | high risk for | | | | | | progression to severe | | | | | | sepsis and/or septic | | | | | | shock. If the | | | | | | procalcitonin | | | | | | measurement is performed | | | | | | shortly after the | | | | | | systemic infection | | | | | | process has started | | | | | | (usually less than 6 | | | | | | hours), these values may | | | | | | still be low. As | | | | | | various non-infectious | | | | | | conditions are known to | | | | | | induce procalcitonin as | | | | | | well, procalcitonin | | | | | | levels between 0.50 | | | | | | ng/mL and 2.00 ng/mL | | | | | | should be reviewed | | | | | | carefully to take into | | | | | | account the specific | | | | | | clinical background and | | | | | | condition(s) of the | | | | | | individual patient. | | | | + + + + + + + + | Specimen | + + | Blood | + + + + + + + | Performing | Address | City/State/Zipcode | Phone Number | | Organization | | | | + + + + + | [facility] | [address] | [place] | [phone] | | [facility] | | [address] | | | - LABORATORY | | | | + + + + + XR Chest AP Portable (10/31/2019 12:04 PM PDT) + + | Specimen | + + | | + + + + + | Impressions | Performed At | + + + | No radiographic evidence for acute disease in the chest. | [facility] | + + + + + + | Narrative | Performed At | + + + | EXAM: XR CHEST AP PORTABLE dated 10/31/2019 12:04 PM HISTORY: cp | [facility] | | Comparison: None. TECHNIQUE: A single portable view of the | | | chest. FINDINGS: The lungs are symmetrically aerated. They | | | are clear. There are no large pleural effusions. There is no | | | pneumothorax. The cardiac and mediastinal contours are not | | | enlarged. No acute osseous abnormalities. | | + + + + + | Procedure Note | + + | Juan, Rad Results In - 10/31/2019 12:36 PM PDT EXAM: XR CHEST AP PORTABLE dated | | 10/31/2019 12:04 PMHISTORY: cpComparison: None.TECHNIQUE: A single portable view of the | | chest.FINDINGS:The lungs are symmetrically aerated. They are clear. There are nolarge | | pleural effusions. There is no pneumothorax. The cardiac andmediastinal contours are | | not enlarged. No acute osseousabnormalities. IMPRESSION: No radiographic evidence for | | acute disease in the chest. | |TECHNIQUE: A single portable view of the chest. | | | |FINDINGS: | | | |The lungs are symmetrically aerated. They are clear. There are no | |large pleural effusions. There is no pneumothorax. The cardiac and | |mediastinal contours are not enlarged. No acute osseous | |abnormalities. | | | |IMPRESSION: | | | |No radiographic evidence for acute disease in the chest. | + + + +---------+ + + | Performing | Address | City/State/Zipcode | Phone Number | | Organization | | | | + +---------+ + + | [facility] | | | | + +---------+ + + Ammonia (10/31/2019 11:53 AM PDT) + +---------+ + + + | Component | Value | Ref Range | Performed | Pathologist | | | | | At | Signature | + +---------+ + + + | Ammonia | <10 (L) | 11 - 32 umol/L | [facility] | | | | | | [facility] | | | | | | [facility] | | | | | | CENTER - | | | | | | LABORATORY | | + +---------+ + + + + + | Specimen | + + | Blood - Right upper | | arm structure (body | | structure) | + + + + + + + | Performing | Address | City/State/Zipcode | Phone Number | | Organization | | | | + + + + + | [facility] | [address] | [place] | [phone] | | [facility] | | [id number] | | | - LABORATORY | | | | + + + + + CBC with Differential (10/31/2019 11:49 AM PDT) + + + + + + | Component | Value | Ref Range | Performed | Pathologist | | | | | At | Signature | + + + + + + | White Blood | 9.8 | 4.0 - 11.0 K/uL | [facility] | | | Cells | | | [facility] | | | | | | MEDICAL | | | | | | CENTER - | | | | | | LABORATORY | | + + + + + + | Red Blood | 4.19 (L) | 4.30 - 5.70 | [facility] | | | Cells | | M/uL | [facility] | | | | | | MEDICAL | | | | | | CENTER - | | | | | | LABORATORY | | + + + + + + | Hemoglobin | 11.7 (L) | 13.5 - 18.0 | [facility] | | | | | g/dL | [facility] | | | | | | MEDICAL | | | | | | CENTER - | | | | | | LABORATORY | | + + + + + + | Hematocrit | 34.8 (L) | 40.0 - 51.0 % | [facility] | | | | | | [facility] | | | | | | [facility]ICAL | | | | | | CENTER - | | | | | | LABORATORY | | + + + + + + | MCV | 83.1 | 83.0 - 101.0 fL | [facility] | | | | | | [facility] | | | | | | [facility]ICAL | | | | | | CENTER - | | | | | | LABORATORY | | + + + + + + | MCH | 27.9 (L) | 28.0 - 35.0 pg | [facility] | | | | | | [facility] | | | | | | [facility]ICAL | | | | | | CENTER - | | | | | | LABORATORY | | + + + + + + | MCHC | 33.6 | 32.0 - 36.0 | [facility] | | | | | g/dL | [facility] | | | | | | MEDICAL | | | | | | CENTER - | | | | | | LABORATORY | | + + + + + + | RDW-CV | 14.6 | <15.0 % | [facility] | | | | | | [facility] | | | | | | [facility] | | | | | | CENTER - | | | | | | LABORATORY | | + + + + + + | RDW-SD | 43.9 | 35.1 - 46.3 fL | [facility] | | | | | | [facility] | | | [facility] | | [facility] | | | | | | C[facility] - | | | | | | LABORATORY | | + + + + + + | Platelet | 246 | 140 - 440 K/uL | [facility] | | | Count | | | [facility] | | | | | | MEDICAL | | | | | | CENTER - | | | | | | LABORATORY | | + + + + + + | MPV | 9.2 | 6.5 - 12.4 fL | [facility] | | | | | | [facility] | | | | | | [facility] | | | | | | C[facility] - | | | | | | LABORATORY | | + + + + + + | % | 79.4 | 45.0 - 82.0 % | [facility] | | | Neutrophils | | | [facility] | | | | | | MEDICAL | | | | | | CENTER - | | | | | | LABORATORY | | + + + + + + | % | 12.4 (L) | 20.0 - 45.0 % | [facility] | | | Lymphocytes | | | [facility] | | | | | | MEDICAL | | | | | | CENTER - | | | | | | LABORATORY | | + + + + + + | % Monocytes | 7.4 | 4.0 - 12.0 % | [facility] | | | | | | [facility] | | | | | | [facility] | | | | | | C[facility] - | | | | | | LABORATORY | | + + + + + + | % | 0.1 | 0.0 - 5.0 % | [facility] | | | Eosinophils | | | [facility] | | | | | | MEDICAL | | | | | | CENTER - | | | | | | LABORATORY | | + + + + + + | % Basophils | 0.2 | 0.0 - 1.0 % | [facility] | | | | | | [facility] | | | | | | MEDICAL | | | | | | CENTER - | | | | | | LABORATORY | | + + + + + + | % Immature | 0.5 (H)Comment: | 0.0 - 0.4 % | [facility] | | | Granulocyte | Preliminary studies have | | [facility] | | | s | indicated the IG% | | MEDICAL | | | | and/or IG# show promise | | CENTER - | | | | as an early indicator | | LABORATORY | | | | for infection. | | | | + + + + + + | Absolute | 7.75 | 1.80 - 8.50 | [facility] | | | Neutrophils | | K/uL | [facility] | | | | | | MEDICAL | | | | | | CENTER - | | | | | | LABORATORY | | + + + + + + | Absolute | 1.21 | 0.60 - 3.20 | [facility] | | | Lymphocytes | | K/uL | [facility] | | | | | | MEDICAL | | | | | | CENTER - | | | | | | LABORATORY | | + + + + + + | Absolute | 0.72 | 0.00 - 1.00 | [facility] | | | Monocytes | | K/uL | [facility] | | | | | | MEDICAL | | | | | | CENTER - | | | | | | LABORATORY | | + + + + + + | Absolute | 0.01 | 0.00 - 0.40 | [facility] | | | Eosinophils | | K/uL | [facility] | | | | | | MEDICAL | | | | | | CENTER - | | | | | | LABORATORY | | + + + + + + | Absolute | 0.02 | 0.00 - 0.10 | [facility] | | | Basophils | | K/uL | [facility] | | | | | | MEDICAL | | | | | | CENTER - | | | | | | LABORATORY | | + + + + + + | Absolute | 0.05 (H) | 0.00 - 0.03 | [facility] | | | Immature | | K/uL | [facility] | | | Granulocyte | | | MEDICAL | | | s | | | CENTER - | | | | | | LABORATORY | | + + + + + + | % nRBC | 0 | 0 - 2 per 100 | [facility] | | | | | WBCs | [facility] | | | | | | MEDICAL | | | | | | CENTER - | | | | | | LABORATORY | | + + + + + + | Absolute | 0.00 | 0.00 - 0.01 | [facility] | | | nRBC | | K/uL | [facility] | | | | | | MEDICAL | | | | | | CENTER - | | | | | | LABORATORY | | + + + + + + + + | Specimen | + + | Blood - Right upper | | arm structure (body | | structure) | + + + + + + + | Performing | Address | City/State/Zipcode | Phone Number | | Organization | | | | + + + + + | [facility] | [address] | [place] | [phone] | | [facility] | | [id number] | | | - LABORATORY | | | | + + + + + Lipid Panel (10/31/2019 11:48 AM PDT) + +---------+ + + + | Component | Value | Ref Range | Performed | Pathologist | | | | | At | Signature | + +---------+ + + + | Triglycerid | 168 (H) | <=150 mg/dL | [facility] | | | es | | | [facility] | | | | | | [facility] | | | | | | [facility] - | | | | | | LABORATORY | | + +---------+ + + + | Cholesterol | 165 | <=200 mg/dL | [facility] | | | [facility] | [facility] | | | | | | [facility] - | | | | | | LABORATORY | | + +---------+ + + + | HDL | 21 (L) | 40 - 60 mg/dL | [facility] | | | | | [facility] | | | | | | [facility] | | | | | | CENTER - | | | | | | LABORATORY | | + +---------+ + + + | Chol/HDL | 7.9 | | [facility] | | | Ratio | | | [facility] | | | | | | [facility] | | | | | | CENTER - | | | | | | LABORATORY | | + +---------+ + + + | LDL, | 110 | <=130 mg/dL | [facility] | | | Calculated | | | [facility] | | | | | | [facility] | | | | | | CENTER - | | | | | | LABORATORY | | + +---------+ + + + + + | Specimen | + + | Blood - Right upper | | arm structure (body | | structure) | + + + + + + + | Performing | Address | City/State/Zipcode | Phone Number | | Organization | | | | + + + + + | [facility] | [address] | [place] | [phone] | | [facility] | | [address] | | | - LABORATORY | | | | + + + + + C-Reactive Protein (10/31/2019 11:48 AM PDT) + + + + + + | Component | Value | Ref Range | Performed | Pathologist | | | | | At | Signature | + + + + + + | CRP | 80.90 (H) | <10.00 mg/L | [facility] | [facility] | | | | | | [facility] - | | | | | | LABORATORY | | + + + + + + + + | Specimen | + + | Blood - Right upper | | arm structure (body | | structure) | + + + + + + + | Performing | Address | City/State/Zipcode | Phone Number | | Organization | | | | + + + + + | [facility] | [address] | [place] | [phone] | | [facility] | | [address] | | | - LABORATORY | | | | + + + + + TSH (10/31/2019 11:48 AM PDT) + + + + + + | Component | Value | Ref Range | Performed | Pathologist | | | | | At | Signature | + + + + + + | TSH | 0.46 (L) | 0.55 - 4.78 | [facility] | | | | | uIU/mL | [facility] | | | | | | MEDICAL | | | | | | CENTER - | | | | | | LABORATORY | | + + + + + + + + | Specimen | + + | Blood - Right upper | | arm structure (body | | structure) | + + + + + + + | Performing | Address | City/State/Zipcode | Phone Number | | Organization | | | | + + + + + | [facility] | [address] | [place] | [phone] | | [facility] | | [address] | | | - LABORATORY | | | | + + + + + B Type Natriuretic Peptide (10/31/2019 11:48 AM PDT) + + + + + + | Component | Value | Ref Range | Performed | Pathologist | | | | | At | Signature | + + + + + + | BNP | 238 (H)Comment: New | <100 pg/mL | [facility] | | | | method in use as of | | [facility] | | | | July 10, 2018. Check | | MEDICAL | | | | reference range for | | CENTER - | | | | changes.Some analytes | | LABORATORY | | | | show significant | | | | | | variation from the | | | | | | previous method.It may | | | | | | be necessary to set a | | | | | | new baseline for this | | | | | | analyte. | | | | + + + + + + + + | Specimen | + + | Blood - Right upper | | arm structure (body | | structure) | + + + + + + + | Performing | Address | City/State/Zipcode | Phone Number | | Organization | | | | + + + + + | [facility] | [address] | [place] | [phone] | | [facility] | | [address] | | | - LABORATORY | | | | + + + + + Lipase (10/31/2019 11:48 AM PDT) + + + + + + | Component | Value | Ref Range | Performed | Pathologist | | | | | At | Signature | + + + + + + | Lipase | 39Comment: New method in | 12 - 53 U/L | [facility] | | | | use as of July 10, | | [facility] | | | | 2019. Check reference | | MEDICAL | | | | range for changes.Some | | CENTER - | | | | analytes show | | LABORATORY | | | | significant variation | | | | | | from the previous | | | | | | method.It may be | | | | | | necessary to set a new | | | | | | baseline for this | | | | | | analyte. | | | | + + + + + + + + | Specimen | + + | Blood - Right upper | | arm structure (body | | structure) | + + + + + + + | Performing | Address | City/State/Zipcode | Phone Number | | Organization | | | | + + + + + | [facility] | [address] | [place] | [phone] | | [facility] | | [address] | | | - LABORATORY | | | | + + + + + CK Total (10/31/2019 11:48 AM PDT) + +--------+ + + + | Component | Value | Ref Range | Performed | Pathologist | | | | | At | Signature | + +--------+ + + + | CK TOTAL | 25 (L) | 46 - 171 U/L | [facility] | | | | | | [facility] | | | | | | MEDICAL | | | | | | CENTER - | | | | | | LABORATORY | | + +--------+ + + + + + | Specimen | + + | Blood - Right upper | | arm structure (body | | structure) | + + + + + + + | Performing | Address | City/State/Zipcode | Phone Number | | Organization | | | | + + + + + | [facility] | [address] | [place], [place] | [phone] | | [facility] | | [address] | | | - LABORATORY | | | | + + + + + Comprehensive Metabolic Panel (10/31/2019 11:48 AM PDT) + + + + + + | Component | Value | Ref Range | Performed | Pathologist | | | | | At | Signature | + + + + + + | Na | 129 (L) | 136 - 145 | [facility] | | | | | mmol/L | [facility] | | | | | | MEDICAL | | | | | | CENTER - | | | | | | LABORATORY | | + + + + + + | K | 4.1 | 3.4 - 5.1 | [facility] | | | | | mmol/L | [facility] | | | | | | MEDICAL | | | | | | CENTER - | | | | | | LABORATORY | | + + + + + + | Cl | 100 | 98 - 107 mmol/L | [facility] | | | | | | [facility] | | | | | | MEDICAL | | | | | | CENTER - | | | | | | LABORATORY | | + + + + + + | CO2 | 23 | 20 - 31 mmol/L | [facility] | | | | | | [facility] | | | | | | MEDICAL | | | | | | CENTER - | | | | | | LABORATORY | | + + + + + + | Anion Gap | 6 | 3 - 16 mmol/L | [facility] | | | | | | [facility] | | | | | | MEDICAL | | | | | | CENTER - | | | | | | LABORATORY | | + + + + + + | Glucose | 130 (H) | 60 - 106 mg/dL | [facility] | | | | | | [facility] | | | | | | MEDICAL | | | | | | CENTER - | | | | | | LABORATORY | | + + + + + + | BUN | 20 | 9 - 23 mg/dL | [facility] | | | | | | [facility] | | | | | | MEDICAL | | | | | | CENTER - | | | | | | LABORATORY | | + + + + + + | Creatinine | 1.16 | 0.70 - 1.30 | [facility] | | | | | mg/dL | [facility] | | | | | | [facility] | | | | | | CENTER - | | | | | | LABORATORY | | + + + + + + | eGFR, | >60Comment: GLOMERULAR | >=60 | [facility] | | | non- | FILTRATION | mL/min/1.73m2 | [facility] | | | [place] | RATE,ESTIMATED | | MEDICAL | | | | mL/min/1.82v8Htuk than | | CENTER - | | | | 60 Chronic kidney | | LABORATORY | | | | disease,if found over a | | | | | | 3-month period.Less than | | | | | | 15 Kidney failureFor | | | | | | | | | | | | Americans,multiply the | | | | | | calculated GFR by 1.21. | | | | | | | | | | + + + + + + | Calcium | 9.0 | 8.7 - 10.4 | [facility] | | | | | mg/dL | [facility] | | | | | | MEDICAL | | | | | | CENTER - | | | | | | LABORATORY | | + + + + + + | Albumin | 3.9 | 3.2 - 4.8 g/dL | [facility] | | | | | | [facility] | | | | | | MEDICAL | | | | | | CENTER - | | | | | | LABORATORY | | + + + + + + | Bilirubin | 0.7 | 0.3 - 1.2 mg/dL | [facility] | | | Total | | | [facility] | | | | | | MEDICAL | | | | | | CENTER - | | | | | | LABORATORY | | + + + + + + | Total | 7.2 | 5.7 - 8.2 g/dL | [facility] | | | Protein | | | [facility] | | | | | | MEDICAL | | | | | | CENTER - | | | | | | LABORATORY | | + + + + + + | AST | 23 | 0 - 34 U/L | [facility] | | | | | | [facility] | | | | | | MEDICAL | | | | | | CENTER - | | | | | | LABORATORY | | + + + + + + | ALT | 18 | 10 - 49 U/L | [facility] | | | | | | [facility] | | | | | | MEDICAL | | | | | | CENTER - | | | | | | LABORATORY | | + + + + + + | Alkaline | 53 | 46 - 116 U/L | [facility] | | | Phosphatase | | | [facility] | | | | | | MEDICAL | | | | | | CENTER - | | | | | | LABORATORY | | + + + + + + | Globulin | 3.3 | 2.1 - 3.8 g/dL | [facility] | | | | | | [facility] | | | | | | MEDICAL | | | | | | CENTER - | | | | | | LABORATORY | | + + + + + + | Albumin/Denice | 1.2 | 0.8 - 1.9 | [facility] | | | bulin Ratio | | | [facility] | | | | | | MEDICAL | | | | | | CENTER - | | | | | | LABORATORY | | + + + + + + | BUN/Creatin | 17.2 | | [facility] | | | ine Ratio | | | [facility] | | | | | | MEDICAL | | | | | | CENTER - | | | | | | LABORATORY | | + + + + + + + + | Specimen | + + | Blood - Right upper | | arm structure (body | | structure) | + + + + + + + | Performing | Address | City/State/Zipcode | Phone Number | | Organization | | | | + + + + + | [facility] | [address] | [place] | [phone] | | [facility] | | [address] | | | - LABORATORY | | | | + + + + + RHYTHM ECG, REPORT (10/31/2019 11:30 AM PDT)Only the most recent of 2 results within the ti period is included. + + + | Narrative | Performed At | + + + | Aki Capone MD 10/31/2019 1:02 PM ECG Rhythm Report | | | Date/Time: 10/31/2019 11:47 AM Performed by: Aki Capone MD | | | Authorized by: Aki Capone MD ECG reviewed by ED Physician | | | in the absence of a electrician refinery: yes Previous ECG: Previous | | | ECG: Compared to current Comparison ECG info: I compared to | | | the ECG done October 31, 2019 at 10:56 Similarity: Changes noted | | | Interpretation: Interpretation: normal Rate: ECG rate: | | | 92 ECG rate assessment: normal Rhythm: Rhythm: sinus | | | rhythm Ectopy: Ectopy: none QRS: QRS axis: Normal | | | Conduction: Conduction: normal ST segments: ST | | | segments: Normal T waves: T waves: normal Comments: | | | ECG shows normalization of the previously observed ischemic changes | | + + + from Last 3 Months Insurance + +--------+ +--------+ +---------+--------+ | Payer | Benefi | Subscriber | Effect | Phone | Address | Type | | | t Plan | ID | [place] | | | | | | / | | Dates | | | | | | Group | | | | | | + +--------+ +--------+ +---------+--------+ | MEDICARE | [employer] | [id number] | 10/13/19 | [phone] | | Medica | | | RE | | 14-Pre | 5 | | re | | | PART A | | sent | | | | | | AND B | | | | | | + +--------+ +--------+ +---------+--------+ + +--------+ +--------+ + + | Guarantor Name | Accoun | Relation to | Date | Phone | Billing Address | | | t Type | Patient | of | | | | | | | | | | + +--------+ +--------+ + + | Reilly Hamm | Person | Self [birth year] | [address] | | [place] | al/[place] | | 1951 | [phone] | [place] [address] | | | juice | | | 0 (Home) | | + +--------+ +--------+ + + Advance Directives + + + + + | Type | Date Recorded | Patient | Explanation | | | | 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
--- OUTSIDE RECORDS SUMMARY | ~2019-12-15 | XMS | Encounter Summary ---
Demographics + + + | Address | [address] | | | [place] [address] | + + + | Home Phone | | + + + | Preferred Language | Unknown | + + + | Marital Status | | + + + | Adventism Affiliation | Unknown | + + + | Race | Unknown | + + + | Ethnic Group | Unknown | + + + Author + + + | Author | [facility] | | | and [place] | + + + | Organization | [facility] | | [...] | | | | | [place] [id number] | | + + + + + Care Team Providers + +------+ + | Care Hotel Front Office Manager Name | Role | Phone | + +------+ + | No, Physician | PCP | Unavailable | + +------+ + Reason for Visit + + + | Reason | Comments | + + + | Weakness | | + + + Encounter Details +--------+ + + + + | Date | Type | Department | Care Team | Description | +--------+ + + + + | 10/30/ | Hospital | [facility] | Aki Capone, | Elevated troponin I | | 2019 - | Encounter | [facility] | [address] | level (Primary Dx); | | | | [address] [place] | [place] | Abnormal ECG; | | 10/31/ | | [place] [address] | [id number] | Fatigue, unspecified | | 2020 | | [phone] | | type; Generalized | | | | | Denzel Pryor MD | weakness | | | | | [address] | | | | | | [place] | | | | | | [id number] | | | | | | | | +--------+ + + + + Social History + +-------+ +--------+------+ | Tobacco [...] documented as of this encounter Discharge Summaries Denzel Pryor MD - 11/01/2019 1:44 PM PDT [place], [place] HOSPITALIST DISCHARGE SUMMARY Pt. Name/Age/: Reilly Hamm 69 y.o. 1950 Date of Admission: 10/31/2019 Date of Discharge: 11/01/2019 Admitting Physician: Denzel Pryor MD Primary Care Provider: No Physician on file Discharging Physician: Denzel Pryor MD DISCHARGE DIAGNOSES: Elevated troponin Impaired glucose tolerance with A1c of 6.2 DISCHARGE MEDICATIONS: Discharge Medications New Medications Details aspirin 81 MG EC tablet Take 1 tablet (81 mg total) by mouth Daily aka: ASPIRIN ADULT LOW STRENGTH HOSPITAL COURSE: Please refer to the H&P for full details and the most recent rounding rounding (progress) n ote. In short Mr Hamm is a 69 y/o gentleman with no significant past medical history, former smoker who presented to the hospital with generalized weakness. Initial evaluation revealed mildly ron vated troponin, elevated BNP, no acute ischemic changes on EKG, mildly suppressed TSH. With elevated troponin there was a concern of NSTEMI, patient was admitted for rule out and risk -stratification. His troponins remain flat and then normalized, ECHO showed normal EF with mild diastolic dysfunction and was otherwise fairly unremarkable. Next day patient felt at his baseline. I had a long discussion with the patient and his about re-stratification with stress testing, patient agreed to the test but was not willing to wait for it until Mo nday as inpatient he signed out AMA and will follow-up with stress test as outpatient. Keila ent was also found to have elevated A1c at 6.2, dietary instructions were provided and he wa s advised to recheck his A1c within 3 to 6 months. He was prescribed low-dose aspirin at [facility]. Otherwise he was stable clinically at the time of leaving hospital. Most recent weight: Input and output for last 24hrs: Wt Readings from Last 1 Encounters: 11/01/19 63.6 kg (140 lb 3.4 oz) I/O last 24 Hours: In: 300 [P.O.:300] Out: 300 [Urine:300] Vitals Ranges: Temp: [36.4 C (97.6 F)-38.2 C (100.8 F)] 37 C (98.6 F) Pulse: [84-99] 90 Resp: [12-18] 18 BP: (112-136)/(66-86) 118/72 Vitals: Temp: 37 C (98.6 F) BP: 118/72 Pulse: 90 Resp: 18 SpO2: 96 % SpO2 96 % on room air at flow rate L/min PHYSICAL EXAM: Patient seen and examined by me on discharge day Constitutional: NAD, afebrile Eye: pupils round, equal, reactive to light, no conjunctivitis nor scleral icterus, injecte d conjunctive are noted Neck: no lymphadenopathy, thyromegaly nor masses Cardiac: RRR, S1/S2, fairly loud systolic ejection murmur in the precordial area and right second intercostal space, no rubs or gallops, no LE edema Lung: non labored breathing, coarse breath sounds with no overt crackles, wheezing or rhonc hi Abdomen: soft, NT, non distended, no HSM nor masses, BS + MSK: normal mobility in all four extremities, normal range of motion Skin: no rash, ulcers or skin brakes Psych: mood and affect normal, oriented x3, appropriate and cooperative PROCEDURES AND CONSULTS: Procedures None Consults None PENDING RESULTS: Cardiac stress test DISPOSITION AND DISCHARGE INSTRUCTIONS: Condition: Patient being discharged with condition improved. Diet: Heart healthy diet Greater than 30 minutes were spent on discharge and coordination of post-hospital care. Electronically signed by: Denzel Pryor MD, 11/01/2019 1:[address] [facility] Portions of this chart may have been created with i[employer]itness voice recognition software. Occasi onal wrong-word or sound-alike substitutions may have occurred due to the inherent mcgee itations of voice recognition software. Please read the chart carefully and recognize, using context, where these substitutions have occurred documented in this enco unter Discharge Instructions AttachmentsThe following attachments cannot be sent through Care Everywhere.Weakness (Uncer tain Cause) (Citizen Of [place])documented in this encounter Medications at Time of [...] + + documented as of this encounter H&P Notes Denzel Pryor MD - 10/31/2019 2:14 PM PDT [place], [place] HOSPITALIST HISTORY & PHYSICAL Patient: Reilly Hamm : 1950: Age: 69 y.o. MedRec: [id number] Admission date: 10/31/2019 Hospital day # : 0 Physician author: Denzel Pryor MD Today: 10/31/2019 CHIEF COMPLAINT: Generalized weakness, dyspnea on exertion HISTORY OF PRESENT ILLNESS: Mr Hamm is a 69 y/o gentleman with no significant past medical history, former smoker who presented to the hospital with generalized weakness. 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 Other than that patient denies fever, chills, headache, dizziness, c ough, sore throat, chest pain, palpitations, abdominal pain, nausea, vomiting, diarrhea, dys uria hematuria, focal weakness, numbness or tingling. Of note patient has not seen a doctor in 40 years, he does not take any medications and had no symptoms in his adult life. In ED his vitals were normal, lab work significant for mildly elevated troponin at 0.07, BN P at 238, elevated inflammatory markers with procalcitonin 0.68, CRP 80.9, mild hyponatremia with sodium of 129, mildly suppressed TSH at 0.46. He is CXR is largely unremarkable, EKG with no acute ischemic changes. PAST MEDICAL and SURGICAL HISTORY: No significant past medical history or past surgical history FAMILY HISTORY: No significant family history of heart disease or cancer SOCIAL HISTORY: Has been a lifelong smoker who quit about a year and a half ago, he has been smoking for ab out 55 years under 1 pack/day Denies extensive alcohol use Denies illicit drugs REVIEW OF SYSTEMS: Constitutional: in no acute distress, afebrile, complaining of generalized weakness Head and neck: negative, except as stated in H&P Cardiac: negative, except as stated in H&P Pulmonary: negative, except as stated in H&P GI: negative, except as stated in H&P : negative, except as stated in H&P Skin: negative, except as stated in H&P Psyche: negative, except as stated in H&P Musculoskeletal: negative, except as stated in H&P Neuro: negative, except for as stated in H&P HOME MEDICATIONS: No prescription medications ALLERGIES: NKDA VITAL SIGNS: Temp: 35.6 C (96.1 F), Pulse: 95, Resp: 12, BP: 112/86, SpO2 98 % on room air at flow r ate L/min Temp Min: 35.6 C (96.1 F) Max: 36.6 C (97.9 F) Weight: 66 kg (145 lb 8.1 oz) PHYSICAL EXAMINATION: Constitutional: NAD, afebrile Eye: pupils round, equal, reactive to light, no conjunctivitis nor scleral icterus, injecte d conjunctive are noted ENT: unremarkable oral ear and nose Neck: no lymphadenopathy, thyromegaly nor masses Cardiac: RRR, S1/S2, fairly loud systolic ejection murmur in the precordial area and right second intercostal space, no rubs or gallops, no LE edema Lung: non labored breathing, coarse breath sounds with no overt crackles, wheezing or rhonc hi Abdomen: soft, NT, non distended, no HSM nor masses, BS + MSK: normal mobility in all four extremities, normal range of motion Skin: no rash, ulcers or skin brakes Neuro: Face symmetric, tongue midline, ehs manager equal, no pronator drift, motor and sensory int act throughout Psych: mood and affect normal, oriented x3, appropriate and cooperative DIAGNOSTIC STUDIES: Lab results last 24 hours Recent Results (from the past 24 hour(s)) ECG 12 lead Collection Time: 10/31/19 10:56 AM Result Value Ref Range INTERPRETATION TEXT Not Confirmed ECG 12 lead Collection Time: 10/31/19 11:47 AM Result Value Ref Range INTERPRETATION TEXT Not Confirmed Comprehensive Metabolic Panel Collection Time: 10/31/19 11:48 AM Result Value Ref Range Na 129 (L) 136 - 145 mmol/L K 4.1 3.4 - 5.1 mmol/L Cl 100 98 - 107 mmol/L CO2 23 20 - 31 mmol/L Anion Gap 6 3 - 16 mmol/L Glucose 130 (H) 60 - 106 mg/dL BUN 20 9 - 23 mg/dL Creatinine 1.16 0.70 - 1.30 mg/dL eGFR if not >60 >=60 mL/min/1.73m2 Calcium 9.0 8.7 - 10.4 mg/dL Albumin 3.9 3.2 - 4.8 g/dL Bilirubin Total 0.7 0.3 - 1.2 mg/dL Total Protein 7.2 5.7 - 8.2 g/dL AST 23 0 - 34 U/L ALT 18 10 - 49 U/L Alkaline Phosphatase 53 46 - 116 U/L Globulin 3.3 2.1 - 3.8 g/dL Albumin/Globulin Ratio 1.2 0.8 - 1.9 BUN/Creatinine Ratio 17.2 Troponin I Collection Time: 10/31/19 11:48 AM Result Value Ref Range Troponin I 0.07 (H) <0.06 ng/mL Protime INR Collection Time: 10/31/19 11:48 AM Result Value Ref Range Prothrombin Time 13.9 11.3 - 13.9 seconds INR 1.0 0.9 - 1.1 TSH Collection Time: 10/31/19 11:48 AM Result Value Ref Range TSH 0.46 (L) 0.55 - 4.78 uIU/mL Magnesium Collection Time: 10/31/19 11:48 AM Result Value Ref Range Magnesium 2.2 1.6 - 2.6 mg/dL B Type Natriuretic Peptide Collection Time: 10/31/19 11:48 AM Result Value Ref Range BNP 238 (H) <100 pg/mL CK Total Collection Time: 10/31/19 11:48 AM Result Value Ref Range CK TOTAL 25 (L) 46 - 171 U/L Lipase Collection Time: 10/31/19 11:48 AM Result Value Ref Range Lipase 39 12 - 53 U/L C-Reactive Protein Collection Time: 10/31/19 11:48 AM Result Value Ref Range CRP 80.90 (H) <10.00 mg/L CBC with Differential Collection Time: 10/31/19 11:49 AM Result Value Ref Range WBC 9.8 4.0 - 11.0 K/uL RBC 4.19 (L) 4.30 - 5.70 M/uL Hemoglobin 11.7 (L) 13.5 - 18.0 g/dL Hematocrit 34.8 (L) 40.0 - 51.0 % MCV 83.1 83.0 - 101.0 fL MCH 27.9 (L) 28.0 - 35.0 pg MCHC 33.6 32.0 - 36.0 g/dL RDW-CV 14.6 <15.0 % RDW-SD 43.9 35.1 - 46.3 fL Platelet Count 246 140 - 440 K/uL MPV 9.2 6.5 - 12.4 fL % Neutrophils 79.4 45.0 - 82.0 % % Lymphocytes 12.4 (L) 20.0 - 45.0 % % Monocytes 7.4 4.0 - 12.0 % % Eosinophils 0.1 0.0 - 5.0 % % Basophils 0.2 0.0 - 1.0 % % Immature Granulocytes 0.5 (H) 0.0 - 0.4 % Absolute Neutrophils 7.75 1.80 - 8.50 K/uL Absolute Lymphocytes 1.21 0.60 - 3.20 K/uL Absolute Monocytes 0.72 0.00 - 1.00 K/uL Absolute Eosinophils 0.01 0.00 - 0.40 K/uL Absolute Basophils 0.02 0.00 - 0.10 K/uL Absolute Immature Granulocytes 0.05 (H) 0.00 - 0.03 K/uL % nRBC 0 0 - 2 per 100 WBCs Absolute nRBC 0.00 0.00 - 0.01 K/uL Ammonia Collection Time: 10/31/19 11:53 AM Result Value Ref Range Ammonia <10 (L) 11 - 32 umol/L Procalcitonin Collection Time: 10/31/19 12:08 PM Result Value Ref Range Procalcitonin 0.68 (H) <=0.50 ng/mL Comment ECG 12 lead Collection Time: 10/31/19 1:13 PM Result Value Ref Range INTERPRETATION TEXT Not Confirmed Radiology results (more choices using dotrisresults) Xr Chest Ap Portable Result Date: 10/31/2019 EXAM: XR CHEST AP PORTABLE dated 10/31/2019 12:04 PM HISTORY: cp Comparison: None. TECHNIQUE : A single portable view of the chest. FINDINGS: The lungs are symmetrically aerated. They are clear. There are no large pleural effusions. There is no pneumothorax. The cardiac an d mediastinal contours are not enlarged. No acute osseous abnormalities. No radiographic evidence for acute disease in the chest. I reviewed imaging. EKG Results (I reviewed EKG). I reviewed and summarized old records. ASSESSMENT: This is a 69 y/o gentleman with no significant past medical history, former smoker who pres ented to the hospital with generalized weakness. Evaluation revealed mildly elevated tropon in, elevated BNP, no acute ischemic changes on EKG, mildly suppressed TSH. With elevated tr oponin there is a concern of NSTEMI, patient will be admitted for rule out and risk-stratifi cation. As to his generalized weakness no clear reason so far, and might continue that, he has elevated inflammatory markers but no fever or white count to suggest infection. We will continue work-up. PLAN: Elevated troponin Suspicious for cardiac event, his risk factors mainly include history of extensive smoking and age We will cycle troponins Obtain ECHO Monitor on telemetry If troponins go up will repeat EKG, discussed with cardiology Obtain lipid panel and A1c If troponins remain flat will go down will consider inpatient stress test risk stratificati on Generalized weakness No clear etiology at this time, he has elevated inflammatory markers but clinically does no t appear infected, no white count, no fever, CXR clear TSH is mildly suppressed, I doubt hyper thyroidism driving his symptoms We will watch closely for infectious etiology Rule out COVID-19 Monitor labs and clinical signs of infection Former smoker Patient counseled to stay away from smoking DVT prophylaxis: SCD, heparin sq CODE STATUS: FULL CODE Disposition: admit to inpatient care CMS Documentation I expect this patient will be hospitalized for greater than 2 midnights and expect the post -hospital plan to be discharged to home. Electronically signed by: Denzel Pryor MD 10/31/2019 2:[address] [facility] Portions of this chart may have been created with iWitness voice recognition software. Occasi onal wrong-word or sound-alike substitutions may have occurred due to the inherent mcgee itations of voice recognition software. Please read the chart carefully and recognize, using context, where these substitutions have occurred documented in this enco unter ED Notes Irene Lyles RN - 10/31/2019 11:58 AM PDTThijustine RN assumed care of the pt at this time a fter receiving report from Perla DE LA CRUZ erla Cote RN - 10/31/2019 11:33 AM PDTWeakness for the past few weeks af ter being in the heat with no water for increased amount of time, has decreased appetite and yesterday he had some dizziness, denies chest pain, no headaches ki Capone MD - 10/31/2019 11:30 AM PDTAss ociated Order(s): ECG Rhythm Report; ECG Rhythm ReportFormatting of this note might be diffe rent from the original. Chief Complaint: "dizziness and fatigue" HPI: This 69 y.o. patient presents to the Emergency Department with exam dizziness and fati laura and decreased appetite. This is been worsening for 5 weeks. The patient was seen at [facility] and sent to the emergency department for further work-up. Apparently the patient does not regularly receive medical care and has not seen a doctor in over 40 years. 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 About 1 month prior to a rrival, he was out helping his son [employer]. He was working outside and intense hot d ry conditions from 6 AM to 9 PM every day. During the daylight hours he had very limited ac cess to free water and felt very weak and dehydrated. Initially thought he had just been de hydrated and that he would get better over time. However over the past 2 to 3 weeks, he has had persistent lack of energy, severe fatigue, sleeping 14 to 16 hours a day, and simply is not able to regain his previous level of function. The patient has no associated chest damaris n. He denies nausea or vomiting. He denies back pain. No headache. The symptoms have wor sened and his son found out about the symptoms today and said that he needed to go to the em ergency department to be evaluated. The patient was seen in urgent care and had a very abno rmal ECG with possible ischemic changes on the anterior leads and was sent to the emergency department for further testing. There is no associated abdominal pain at this time Past Medical and Surgical History I did review the patient's past medical and surgical history. The patient has no past medic al history on file. The patient has no past surgical history on file. Family and Social History I did review the patient's family and social history. The patient's family history is not o n file. The patient reports that he has never smoked. His smokeless tobacco use includes delmi w. Medications and Allergies No current outpatient medications on file prior to encounter. No Known Allergies Review of Systems Review of Systems Constitutional: Positive for malaise/fatigue. Negative for chills, fever and weight loss. Gastrointestinal: Positive for nausea. Negative for abdominal pain. "Normally he eats three square meals a day but he has had no appetite" Neurological: Positive for dizziness. As in history of present illness. A 10 system review was otherwise negative. Physical Examination VITAL SIGNS: Temp: 35.6 C (96.1 F) Pulse: 93 Resp: 12 SpO2: 99 % BP: 144/81 Body mass index is 24.21 kg/m. Constitutional: male patient, alert and appropriate, conversant with nurse and staff. HEENT: Atraumatic, patient follows me around the room with their eyes, PERRL, Oropharynx sh ows no redness, moist mucus membranes. Neck: Supple with full range of motion. No JVD, lymphadenopathy, or meningismus. Respiratory: Good air movement bilaterally. No wheezes, no rales. Patient's work of breathi ng is normal. Cardiovascular: Normal S1 S2. No rubs or murmurs Abdomen: Soft, nontender. No rebound, guarding, or masses. Bowel tones normal. No pulsat ile masses Back: No CVA tenderness. No midline thoracic or lumbar spinal tenderness. Extremities: Nontender. No edema, no calf asymmetry. Present distal pulses. Skin: Warm, Dry, No obvious rashes. Capillary refill is brisk <3 seconds and shows good per fusion on areas of visible skin. Neurologic: Alert & oriented. Cranial nerves II-XII intact. No focal deficits. Gait is norm al. Speech is normal. Psychiatric: Normal mood, affect and judgement. No evidence of suicidal or homicidal ideat ion at this time. Labs Results for orders placed or performed during the hospital encounter of 10/31/19 CBC with Differential Result Value Ref Range WBC 9.8 4.0 - 11.0 K/uL RBC 4.19 (L) 4.30 - 5.70 M/uL Hemoglobin 11.7 (L) 13.5 - 18.0 g/dL Hematocrit 34.8 (L) 40.0 - 51.0 % MCV 83.1 83.0 - 101.0 fL MCH 27.9 (L) 28.0 - 35.0 pg MCHC 33.6 32.0 - 36.0 g/dL RDW-CV 14.6 <15.0 % RDW-SD 43.9 35.1 - 46.3 fL Platelet Count 246 140 - 440 K/uL MPV 9.2 6.5 - 12.4 fL % Neutrophils 79.4 45.0 - 82.0 % % Lymphocytes 12.4 (L) 20.0 - 45.0 % % Monocytes 7.4 4.0 - 12.0 % % Eosinophils 0.1 0.0 - 5.0 % % Basophils 0.2 0.0 - 1.0 % % Immature Granulocytes 0.5 (H) 0.0 - 0.4 % Absolute Neutrophils 7.75 1.80 - 8.50 K/uL Absolute Lymphocytes 1.21 0.60 - 3.20 K/uL Absolute Monocytes 0.72 0.00 - 1.00 K/uL Absolute Eosinophils 0.01 0.00 - 0.40 K/uL Absolute Basophils 0.02 0.00 - 0.10 K/uL Absolute Immature Granulocytes 0.05 (H) 0.00 - 0.03 K/uL % nRBC 0 0 - 2 per 100 WBCs Absolute nRBC 0.00 0.00 - 0.01 K/uL Comprehensive Metabolic Panel Result Value Ref Range Na 129 (L) 136 - 145 mmol/L K 4.1 3.4 - 5.1 mmol/L Cl 100 98 - 107 mmol/L CO2 23 20 - 31 mmol/L Anion Gap 6 3 - 16 mmol/L Glucose 130 (H) 60 - 106 mg/dL BUN 20 9 - 23 mg/dL Creatinine 1.16 0.70 - 1.30 mg/dL eGFR if not >60 >=60 mL/min/1.73m2 Calcium 9.0 8.7 - 10.4 mg/dL Albumin 3.9 3.2 - 4.8 g/dL Bilirubin Total 0.7 0.3 - 1.2 mg/dL Total Protein 7.2 5.7 - 8.2 g/dL AST 23 0 - 34 U/L ALT 18 10 - 49 U/L Alkaline Phosphatase 53 46 - 116 U/L Globulin 3.3 2.1 - 3.8 g/dL Albumin/Globulin Ratio 1.2 0.8 - 1.9 BUN/Creatinine Ratio 17.2 Troponin I Result Value Ref Range Troponin I 0.07 (H) <0.06 ng/mL Protime INR Result Value Ref Range Prothrombin Time 13.9 11.3 - 13.9 seconds INR 1.0 0.9 - 1.1 TSH Result Value Ref Range TSH 0.46 (L) 0.55 - 4.78 uIU/mL Magnesium Result Value Ref Range Magnesium 2.2 1.6 - 2.6 mg/dL B Type Natriuretic Peptide Result Value Ref Range BNP 238 (H) <100 pg/mL CK Total Result Value Ref Range CK TOTAL 25 (L) 46 - 171 U/L Ammonia Result Value Ref Range Ammonia <10 (L) 11 - 32 umol/L Lipase Result Value Ref Range Lipase 39 12 - 53 U/L C-Reactive Protein Result Value Ref Range CRP 80.90 (H) <10.00 mg/L Procalcitonin Result Value Ref Range Procalcitonin 0.68 (H) <=0.50 ng/mL Comment ECG 12 lead Result Value Ref Range INTERPRETATION TEXT Not Confirmed Imaging Recent imaging: Xr Chest Ap Portable Result Date: 10/31/2019 EXAM: XR CHEST AP PORTABLE dated 10/31/2019 12:04 PM HISTORY: cp Comparison: None. TECHNIQUE : A single portable view of the chest. FINDINGS: The lungs are symmetrically aerated. They are clear. There are no large pleural effusions. There is no pneumothorax. The cardiac an d mediastinal contours are not enlarged. No acute osseous abnormalities. No radiographic evidence for acute disease in the chest. Medical Decision Making EMS notes and snf records if applicable/available. Pertinent labs and imaging stud ies were reviewed (see above). Medication and allergy lists reviewed in [facility]. Nursing notes and old records were reviewed if available within [facility]. ER course: 11:30 AM PDT - Patient care initiated. After introducing myself to the patient, I performed a careful history and physical examination. This is a very pleasant 69-year-old male presenting with generalized weakness. The patient is pretty insistent that he never had chest pain or pressure but I am very concerned becaus e he had an ECG done at the urgent care that showed definite ST depressions and T wave inver sions in his anterior leads. The patient will benefit from a full cardiac work-up as well a s a full set of labs. This could be something like rhabdomyolysis, renal failure, anemia, e lectrolyte abnormalities, etc. We will give IV fluids and then reassess. 125:41. His ECG done in the emergency department shows normalization of the previously see n ischemic changes. These are dramatically different ECGs and are very concerning for dynam ic changes that could be related to cardiac ischemia. I will call and discuss the case with cardiology but I recommend admission to the hospital, trending his troponin, and further te sting. 12:56. Case discussed with Dr. Blakely of Cardiology who [facility]ing of his troponin ECG Rhythm Report Date/Time: 10/31/2019 10:56 AM Performed by: Aki Capone MD Authorized by: Aki Capone MD ECG reviewed by ED Physician in the absence of a automotive designer: yes Previous ECG: Previous ECG: Unavailable Interpretation: Interpretation: abnormal Rate: ECG rate: 95 ECG rate assessment: normal Rhythm: Rhythm: sinus rhythm Ectopy: Ectopy: none QRS: QRS axis: Normal Conduction: Conduction: normal ST segments: ST segments: Abnormal Depression: V2 and V3 T waves: T waves: inverted Inverted: V3, V4 and V5 Comments: This ECG is very worrisome and seems to show ischemic changes ECG Rhythm Report Date/Time: 10/31/2019 11:47 AM Performed by: Aki Capone MD Authorized by: Aki Capone MD ECG reviewed by ED Physician in the absence of a automotive designer: yes Previous ECG: Previous ECG: Compared to current Comparison ECG info: I compared to the ECG done October 31, 2019 at 10:56 Similarity: Changes noted Interpretation: Interpretation: normal Rate: ECG rate: 92 ECG rate assessment: normal Rhythm: Rhythm: sinus rhythm Ectopy: Ectopy: none QRS: QRS axis: Normal Conduction: Conduction: normal ST segments: ST segments: Normal T waves: T waves: normal Comments: ECG shows normalization of the previously observed ischemic changes Last Set of Vital Signs: Temp: 35.6 C (96.1 F) Pulse: 86 Resp: 21 SpO2: 99 % BP: 124/68 Impression 1. Elevated troponin I level 2. Abnormal ECG 3. Fatigue, unspecified type 4. Generalized weakness Disposition: Admit Condition: Stable Patient's Medications No medications on file Discharge References/Attachments Weakness (Uncertain Cause) (Citizen Of [place]) Aki Capone MD 10/31/19 1302 documented in this e ncounter Miscellaneous Notes Plan of [place] - Lilliana Lutz RN - 11/01/2019 1:36 PM PDTFree from falls/injury, ani ls appropriately to make needs known, alert/oriented x4. Pt signed ama form. IV removed. Bel ongings sent with pt. lan of Care - Angy Thompson - 11/01/2019 10:32 AM PDTDischarge Planning: This CM Asst spoke with Rafael and his daughter Alvaro Hoang at his bedside regarding discharge p lans. Rafael reports he lives in [place] with his Nathalie. He reports no steps to enter the home and no steps inside the home. The bathroom has a walk in shower and grab bars. Rafael reports he is independent in his ADL's. He does not use any DME. He drives. Rafael reports he has not had a PCP since 1974. He is not interested in establishing with one either. His pharmacy preference is [facility]. Rafael does not anticipate any discharge needs. He reports his Nathalie will transport him home when medically stable for discharge. Dispo: Home with spouse, no needs. Electronically signed by: Angy Thompson 11/01/2019 10:38 AM PDT lan of Galen العراقي RN - 11/01/2019 3:05 AM PDTReilly has remained free from falls. He has not had an y complaints of pain. His trop has gone up to 0.08, Dr. Frey notified. His urine output flores s been adequate, vitals signs have been stable. He has not had any complaints of SOB or dizz iness. lan of Lilliana Hopkins RN - 10/31/2019 5:05 PM PDTFree from falls/injury, alert/oriented x4, calls appropriately to make needs known. Telemetry in place. Pt has been NPO since this mor ahsan. Pt has an intolerance to canola and soybean oil, noted under allergies. Vss.Electronic ally signed by Lilliana Lutz RN at 10/31/2019 5:10 PM PDTdocumented in this encounter Plan of Treatment Not on filedocumented as of this encounter Procedures + +--------+ [...] + + documented in this encounter Results Troponin I (11/01/2019 11:54 AM PDT) + + + + + [...] | | | | | | [employer] | | | | | [...] [address] | [place] | [phone] | | [facility] | | [address] | | | - LABORATORY | | | | + + + + + Troponin I (11/01/2019 5:44 AM PDT) + + + + + + | Component | Value | Ref Range | Performed | Pathologist | | | | | At | Signature | + + + + + + | Troponin I | 0.06 (H)Comment: | <0.06 ng/mL | [facility] | | [...] | | | | | | [employer] | | | | | [...] + + | Performing | Address | City/State[facility] | Phone Number | | Organization | | | | + + + + + | [facility] | [address] | [place] | [phone] | | [facility] | | [address] | | | - LABORATORY | | | | + + + + + Protime INR (11/01/2019 4:34 AM PDT) + + + + + + | Component | Value | Ref Range | Performed | Pathologist | | | | | At | Signature | + + + + + + | Prothrombin | 13.8 | 11.3 - 13.9 | [facility] | | | Time | | seconds | [facility] | | | | | | MEDICAL | | | | | | CENTER - | | | | | | LABORATORY | | + + + + + + | INR | 1.0Comment: Usual Oral | 0.9 - 1.1 | [facility] | | | | Anticoagulation Range: | | [facility] | | | | 2.0 - 3.0High [...] + + | Performing | Address | City/State/[facility] | Phone Number | | Organization | | | | + + + + + | [facility] | [address] | [place] | [phone] | | [facility] | | [address] | | | - LABORATORY | | | | + + + + + Magnesium (11/01/2019 4:34 AM PDT) + +-------+ + + + | [...] + | [facility] | [address] | [place] | [phone] | | [facility] | | [address] | | | - LABORATORY | | [...] | | Cells | | | [facility] | | | | | | MEDICAL | | | | | | CENTER - | | | | | | LABORATORY | | + + + + + + | Red Blood | 3.86 (L) | 4.30 - 5.70 | [facility] | | | Cells | | M/uL | [facility] | | | | | | [...] | | nRBC | | K/uL | [facility] | | | | [...] ST. | [address] | [place], [place] | [phone] | | [facility] | | [address] | | | - LABORATORY | | [...] | | | | | mg/dL | [facility] | | | | | | MEDICAL | | | | | | CENTER - | | | | | | LABORATORY | | + + + + + + | eGFR, | >60Comment: GLOMERULAR | >=60 | [facility] | | | non- | FILTRATION | mL/min/1.73m2 | [facility] | | | Greek | RATE,ESTIMATED | | MEDICAL | | | | mL/min/1.71e6Ubks than | | CENTER - | | [...] | | | | | mg/dL | [facility] | | | | [...] + + | [facility] | [address] | [place] | [phone] | | [facility] | | [address] | | | - LABORATORY | | | | + + + + + Troponin I (11/01/2019 12:17 AM PDT) + + + + + + | Component | Value | Ref Range | Performed | Pathologist | | | | | At | Signature | + + + + + + | Troponin I | 0.08 (H)Comment: | <0.06 ng/mL | [facility] | | [...] | | | | | | [employer] | | | | | [...] [address] | [place] | [phone] | | [facility] | | [address] | | | - LABORATORY | | [...] [address] | [place] | [phone] | | [facility] | | [address] | | | - LABORATORY | | | | + + + + + Troponin I (10/31/2019 6:23 PM PDT) + + + + + + | Component | Value | Ref Range | Performed | Pathologist | | | | | At | Signature | + + + + + + | Troponin I | 0.07 (H)Comment: | <0.06 ng/mL | [facility] | | [...] | | | | | | [employer] | | | | | [...] ST. | 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 | | | Procedure Type of Study [...] | | | Electronically signed by SAMUEL BLAKELY MD (Interpreting physician) on | | | [...] | Procedure Note | + + | Bull Martinez Results In - 10/31/2019 6:04 PM PDT Transthoracic Echocardiography Report | | (TTE) Demographics Patient Name HANSEL SIMMS Room Number 428 | | SUSHIL Patient Number [id number] Date of Study 10/31/2019 Visit | | Number [id number] Referring Physician ALICE BATES Accession | | [id number] Slurry Man KARIME AVITIA Number Date of | | 1950 Interpreting SAMUEL BLAKELY MD | | Physician 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 | [address] | [place] | [phone] | | [facility] | | [address] | | | - LABORATORY | | [...] + | [facility] | [address] | [place] | [phone] | | [facility] | | [address] | | | - LABORATORY | | [...] | | | Cells | | | [facility] | | | | | | MEDICAL | | | | | | CENTER - | | | | | | LABORATORY | | + + + + + + | Red Blood | 4.19 (L) | 4.30 - 5.70 | [facility] | | | Cells | | M/uL | [facility] | | | | | | MEDICAL | | | | | | CENTER - | | | | | | LABORATORY | | + + + + + + | Hemoglobin | 11.7 (L) | 13.5 - 18.0 | [facility] | | | | | g/dL | [facility] | | | | [...] | Preliminary studies have | | [facility] | | | s | indicated the [...] | Neutrophils | | K/uL | [facility] | | | | [...] | | Basophils | | K/uL | [facility] | | | | | | MEDICAL | | | | | | CENTER - | | | | | | LABORATORY | | + + + + + + | Absolute | 0.05 (H) | 0.00 - 0.03 | [facility] | | | Immature | | K/uL | [facility] | | | Granulocyte | | | MEDICAL | | | s | | | CENTER - | | | | | | LABORATORY | | + + + + + + | % nRBC | 0 | 0 - 2 per 100 | [facility] | | | | | WBCs | [facility] | | | | | | MEDICAL | | | | | | CENTER - | | | | | | LABORATORY | | + + + + + + | Absolute | 0.00 | 0.00 - 0.01 | [facility] | | | nRBC | | K/uL | [facility] | | | | [...] [address] | [place] | [phone] | | [facility] | | [address] | | | - LABORATORY | | [...] LDL, | 110 | <=130 mg/dL | [facility] | | | Calculated | | | [facility] | | [...] + | [facility] | [address] | [place] | [phone] | | [facility] | | [address] | | | - LABORATORY | | | | + + + + + C-Reactive Protein (10/31/2019 11:48 AM PDT) + + + + + + | Component | Value | Ref Range | Performed | Pathologist | | | | | At | Signature | + + + + + + | CRP | 80.90 (H) | <10.00 mg/L | [facility] | | | | | [...] + | [facility] | [address] | [place] | [phone] | | [facility] | | [address] | | | - LABORATORY | | [...] in | 12 - 53 U/L | [facility] | | | | use as of July 10 | | [facility] | | | | 2018. Check reference | | MEDICAL | | [...] + | [facility] | [address] | [place] | [phone] | | [facility] | | [address] | | | - LABORATORY | | | | + + + + + CK Total (10/31/2019 11:48 AM PDT) + +--------+ + + + | Component | Value | Ref Range | Performed | Pathologist | | | | | At | Signature | + +--------+ + + + | CK TOTAL | 25 (L) | 46 - 171 U/L | [facility] | | | | [...] [address] | [place] | [phone] | | [facility] | | [address] | | | - LABORATORY | | [...] 238 (H)Comment: New | <100 pg/mL | [facility] | | | | method in use as of | | [facility] | | | | July 10, [...] + | [facility] | [address] | [place], [place] | [phone] | | [facility] | | [address] | | | - LABORATORY | | | | + + + + + Magnesium (10/31/2019 11:48 AM PDT) + +-------+ + + + | Component | Value | Ref Range | Performed | Pathologist | | | | | At | Signature | + +-------+ + + + | Magnesium | 2.2 | 1.6 - 2.6 mg/dL | [facility] | | | | [...] [address] | [place] | [phone] | | [facility] | | [address] | | | - LABORATORY | | [...] | | | | | uIU/mL | [facility] | | | | [...] + + | [facility] | [address] | [place] | [phone] | | [facility] | | [address] | | | - LABORATORY | | | | + + + + + Protime INR (10/31/2019 11:48 AM PDT) + + + + + + | Component | Value | Ref Range | Performed | Pathologist | | | | | At | Signature | + + + + + + | Prothrombin | 13.9 | 11.3 - 13.9 | [facility] | | | Time | | seconds | [facility] | | | | | | MEDICAL | | | | | | CENTER - | | | | | | LABORATORY | | + + + + + + | INR | 1.0Comment: Usual Oral | 0.9 - 1.1 | [facility] | | | | Anticoagulation Range: | | [facility] | | | | 2.0 - 3.0High [...] [address] | [place] | [phone] | | [facility] | | [address] | | | - LABORATORY | | | | + + + + + Troponin I (10/31/2019 11:48 AM PDT) + + + + + + | Component | Value | Ref Range | Performed | Pathologist | | | | | At | Signature | + + + + + + | Troponin I | 0.07 (H)Comment: | <0.06 ng/mL | [facility] | | [...] | | | | | | [employer] | | | | | [...] + | [facility] | [address] | [place] | [phone] | | [facility] | | [address] | | | - LABORATORY | | [...] 23 | 20 - 31 mmol/L | [facility] [...] 20 | 9 - 23 mg/dL | [facility] | | | | | | [facility] | | | | | | MEDICAL | | | | | | CENTER - | | | | | | LABORATORY | | + + + + + + | Creatinine | 1.16 | 0.70 - 1.30 | [facility] | | | | | mg/dL | [facility] | | | | | | MEDICAL | | | | | | CENTER - | | | | | | LABORATORY | | + + + + + + | eGFR, | >60Comment: GLOMERULAR | >=60 | [facility] | | | non- | FILTRATION | mL/min/1.73m2 | [facility] | | | Greek | RATE,ESTIMATED | | MEDICAL | | | | mL/min/1.01o3Etjh than | | CENTER - | | [...] | 9.0 | 8.7 - 10.4 | [facility] | | | | | mg/dL | [facility] | | | | | | MEDICAL | | | | | | CENTER - | | | | | | LABORATORY | | + + + + + + | Albumin | 3.9 | 3.2 - 4.8 g/dL | [facility] | | | | | | [facility] [...] [address] | [place] | [phone] | | [facility] | | [address] | | | - LABORATORY | | | | + + + + + ECG 12 lead (10/31/2019 11:47 AM PDT) + + + + + + | Component | Value | Ref Range | Performed | Pathologist | | | | | At | Signature | + + + + + + | VENTRICULAR | 92 | BPM | [facility] | | | RATE EKG | | | | | + + + + + + | ATRIAL RATE | 92 | BPM | [facility] | | + + + + + + | P-R | 172 | ms | [facility] | | | INTERVAL | | | | | + + + + + + | QRS | 80 | ms | [facility] | | | DURATION | | | | | + + + + + + | Q-T | 376 | ms | [facility] | | | INTERVAL | | | | | + + + + + + | Q-T | 464 | ms | [facility] | | | INTERVAL | | | | | | (CORRECTED) | | | | | + + + + + + | QRS AXIS | -25 | degrees | [facility] | | + + + + + + | T AXIS | 37 | degrees | [facility] | | + + + + + + | INTERPRETAT | Unusual P axis with | | [facility] | | | ION TEXT | short [place], , possible | | | | | | ectopic atrial rhythm | | | | | | with premature atrial | | | | | | complexesOtherwise | | | | | | normal ECGWhen compared | | | | | | with ECG of 31-OCT-2019 | | | | | | 10:56, | | | | | | (Unconfirmed)Criteria | | | | | | for Inferior infarct are | | | | | | no longer presentT wave | | | | | | inversion no longer | | | | | | evident in Anterior | | | | | | leadsCriteria for | | | | | | Possible Inferior | | | | | | infarct , age | | | | | | undetermined is no | | | | | | longer | | | | | | presentReconfirmed by | | | | | | NICKOLAS ROMERO MD ([id number]) | | | | | | on 11/01/2019 10:45:57 AM | | | | | | [...] | | | + +---------+ + + RHYTHM ECG, REPORT (10/31/2019 11:30 AM PDT) + + + | Narrative | Performed At | + + + | Aki Capone MD 10/31/2019 1:02 PM ECG Rhythm Report | | | Date/Time: 10/31/2019 11:47 AM Performed by: Aki Capone MD | | | Authorized by: Aki Capone MD ECG reviewed by ED Physician | | | in the absence of a automotive designer: yes Previous ECG: Previous | | | [...] ischemic changes | | + + + RHYTHM ECG, REPORT (10/31/2019 11:30 AM PDT) + + + | Narrative | Performed At | + + + | Aki Capone MD 10/31/2019 1:02 PM ECG Rhythm Report | | | Date/Time: 10/31/2019 10:56 AM Performed by: Aki Capone MD | | | Authorized by: Aki aCpone MD ECG reviewed by ED Physician | | | in the absence of a automotive designer: yes Previous ECG: Previous | | | ECG: Unavailable Interpretation: Interpretation: abnormal | | | Rate: ECG rate: 95 ECG rate assessment: normal Rhythm: | | | Rhythm: sinus rhythm Ectopy: Ectopy: none QRS: | | | QRS axis: Normal Conduction: Conduction: normal ST | | | segments: ST segments: Abnormal Depression: V2 and V3 T | | | waves: T waves: inverted Inverted: V3, V4 and V5 | | | Comments: This ECG is very worrisome and seems to show ischemic | | | changes | | + + + documented in this encounter Visit Diagnoses + + | Diagnosis | + + | Elevated troponin I level - Primary Other abnormal blood chemistry | + + | Abnormal ECG Nonspecific abnormal electrocardiogram (ECG) (EKG) | + + | Fatigue, unspecified type | + + | Generalized weakness Other malaise and fatigue | + + documented in this encounter Administered Medications + +--------+ +--------+------+------+ | Medication Order | MAR | Action | Dose | Rate | Site | | | Action | Date | | | | + +--------+ +--------+------+------+ | aspirin chewable tablet 324 mg | Given | 10/31/19 | 324 mg | | | | 324 mg, Oral, ONCE, Sun10/31/19 | | 20 1:43 | | | | | at 1245, For 1 dose | | PM PDT | | | | + +--------+ +--------+------+------+ +---+---+ | | | +---+---+ + +-------+ +--------+---+ + | heparin 5,000 units/mL | Given | 10/31/19 | 5,000 | | Abdomen- | | injection 5,000 Units 5,000 | | 20 8:26 | Units | | LLQ | | Units, Subcutaneous, EVERY 12 | | PM PDT | | | | | HOURS, First dose on Sun10/31/19 | | | | | | | at 2100 | | | | | | + +-------+ +--------+---+ + +---+---+ | | | +---+---+ documented in this encounter
--- OUTSIDE RECORDS SUMMARY | ~2019-12-15 | XMS | Encounter Summary ---
Demographics + + + | Address | [address] | | | [place] [address] | + + + | Home Phone | | + + + | Preferred Language | Unknown | + + + | Marital Status | | + + + | Jehovah'S Witness Affiliation | Unknown | + + + | Race | Unknown | + + + | Ethnic Group | Unknown | + + + Author + + + | Author | [facility] | | | and [place] | + + + | Organization | [facility] | | | [...] | | | | | [place] [address] | | + + + + + Care Team Providers + +------+ + | Care Lead Rider Name | Role | Phone | + +------+ + | No, Physician | PCP | Unavailable | + +------+ + Reason for Visit + + + | Reason | Comments | + + + | Fatigue | | + + + | Dizziness | | + + + | Decreased Appetite | | + + + Encounter Details +--------+---------+ + + + | Date | Type | Department | Care Team | Description | +--------+---------+ + + + | 10/30/ | Office | [facility] | Alex Frias | Dizziness (Primary | | 2020 | Visit | CARE [address] | [place] [address] [address] | Dx) | | | | [place], [place] | [address] [place] | | | | | [address] | [place] [address] | | | | | [phone] | [phone] | | | | | | | [...] + + + | Blood Pressure | 115/56 | 10/31/2019 10:42 AM | | | | | PDT | | + + + + + | Pulse | 96 | 10/31/2019 10:42 AM | | | | | PDT | | + + + + + | Temperature | 36.6 C (97.9 F) | 10/31/2019 10:42 AM | | | | | PDT | | + + + + + | Respiratory Rate | 20 | 10/31/2019 10:42 AM | | | | | PDT | | + + + + + | Oxygen Saturation | 99% | 10/31/2019 10:42 AM | | | | | PDT [...] + + + documented in this encounter Progress Notes Ramirez Cueto, DOROTHY - 10/31/2019 10:30 AM PDTFormatting of this note might be different fr om the original. This is a Rapid Triage & this patient was not seen by a physician during this triage: Patient presents to with fatigue, decreased appetite and intermittent dizziness for abou t 5 weeks. He denies chest pain, shortness of breath. He states he has not seen a physician in over 40 years. He is referred to ER for further evaluation Chief Complaint Patient presents with Fatigue Dizziness Decreased Appetite BP 115/56 | Pulse 96 | Temp 36.6 C (97.9 F) | Resp 20 | SpO2 99% Relevant History related to today's visit: No past medical history on file. MD Consulted: Emergency Room has been recommended for this patient. The patient has [facility] [] Other: Reason for triage recommendation: Out of Scope of Practice or Complex Medical Needs Suspected Cardiac: [] Seizures: [] Advanced Respiratory Condition: [] Head Injury with LOC: [] Pre- Problems: [] Victim of Crime: [] Child/Elder Abuse: [] Severe Abdominal Pain: [] "Worst pain in life": [] Need for IV Medication: [] After-hours Radiology Reading needs by [facility]: [] Patient with complex workup needs to close to closing time: [] Patient in need of hospital admission: [] Patient at risk if to remain in Urgent Care: [x] Patient refused assessment during triage: [] The recommended mode of transportation is: Patient/Family Transport-- x Staff Transport-- EMS-- Other: Patient has Accepted or Declined these recommendations: [x] Accept [] Decline Patient/guardian signature will be scanned in to EMR *Patient has been advised to the reasons that he/she is being triaged to the ED* [x] *Report has been called to the ED charge nurse regarding triage findings* [x] Nurse's name who took report: *The patient has been informed that the ED staff will be aware of his/her arrival, although patient may not be roomed immediately, they will be seen as soon as possible.* [x] documented in this e ncounter Plan of Treatment Not on filedocumented as [...] + + documented in this encounter Results ECG 12 lead (10/31/2019 10:56 AM PDT) + + + + + + | Component | Value | Ref Range | Performed | Pathologist | | | | | At | Signature | + + + + + + | VENTRICULAR | 95 | BPM | [facility] | | | RATE EKG | | | | | + + + + + + | ATRIAL RATE | 95 | BPM | [facility] | | + + + + + + | P-R | 110 | ms | [facility] | | | INTERVAL | | | | | + + + + + + | QRS | 78 | ms | [facility] | | | DURATION | | | | | + + + + + + | Q-T | 384 | ms | [facility] | | | INTERVAL | | | | | + + + + + + | Q-T | 482 | ms | [facility] | | | INTERVAL | | | | | | (CORRECTED) | | | | | + + + + + + | P WAVE AXIS | -27 | degrees | [facility] | | + + + + + + | QRS AXIS | -28 | degrees | [facility] | | + + + + + + | T AXIS | 148 | degrees | [facility] | | + + + + + + | INTERPRETAT | Unusual P axis with | | [facility] | | | ION TEXT | short [place], , possible | | | | | | ectopic atrial rhythm | | | | | | with premature atrial | | | | | | complexesLong | | | | | | QTcInferior infarct , | | | | | | age undeterminedT wave | | | | | | abnormality, consider | | | | | | anterior | | | | | | ischemiaAbnormal ECGNo | | | | | | previous ECGs | | | | | | availableConfirmed by | | | | | | NICKOLAS ROMERO MD ([id number]) | | | | | | on 11/01/2019 10:43:46 AM | | | | | | [...] | | | + +---------+ + + documented in this encounter Visit Diagnoses + + | Diagnosis | + + | Dizziness - Primary Dizziness and giddiness | + + documented in this encounter
--- NOTE | 2019-12-15 17:10 | NUR ---
69 YEAR OLD MALE PATIENT ADMITTED TO CCU FROM ED VIA STRETCHER WITH DX OF UTI/SEPSIS,AMS. UPON ADMIT PATIENT IS SLOW TO ANSWERE QUESTIONS. IS CONFUSED TO PLACE, TIME, EVENT. PATIENT WIDE HERE TO HELP WITH ADMISSION PROCESS. PATIENT HAS BEEN HAVING INTERMITTENT FEVERS APPROX 1.5 MONTHS. WAS AT [facility] IN OCTOBER. HAD HEART WORK UP AT THAT TIME. DENIES PAIN OR NAUSEA ON ADMIT.
--- NOTE | 2019-12-15 18:10 | NUR ---
UP TO COMMODE WITH ASSIST. NO BM.
--- NOTE | 2019-12-15 18:33 | NUR ---
AWAITING CLEAR LIQ TRAY. DENIES NAUSEA OR ABD PAIN.
--- NOTE | 2019-12-15 19:06 | NUR ---
REPORT TO NEXT SHIFT. SITTING UP IN BED RESTING. IVF OF LR INFUSING.
--- NOTE | 2019-12-15 20:22 | NUR ---
IN TO ASSESS. PT. IS AWAKE BUT SL SLOW TO RESPOND. ANSWERS MOST QUESTIONS READILY AND ACCURATELY BUT WHEN ASKED HOW LONG HE HAD LIVED HERE STATED THE 12TH. WHEN EXPRESSED CONCERN THAT HE WAS A BURDEN ON STAFF REASURED THAT HE WAS NOT AND THAT WE WERE HERE FOR HIM. NOTED TO HAVE MURMER. RR 24-28 UNLABORED. FEW CRACKLES R BASE.
--- NOTE | 2019-12-15 20:44 | NUR ---
ASSISTED TO [facility] THOUGHT HAD TO HAVE BM, PASSED LETI. DID BECOME FATIGUED WITH ACTIVITY.
--- NOTE | 2019-12-16 00:35 | NUR ---
AWAKE, FEELING NEED TO HAVE BM, ASSISTED TO BSC. MOVEMENT IS STRONGER BUT DID BECOME FATIGUED AND SOB WITH GETTING BACK TO BED. PASSED GAS AND HAVE SMEAR OF STOOL. HAS SCATTERED WHEEZES AND DR BAKER NOTIFIED. IVF DEC TO 100ML/HR.
--- NOTE | 2019-12-16 01:22 | NUR ---
PATIENT TACHYCARDIAC GREAT THAN 150 BPM. PATIENT IS ALERT IN BED, REPORTS FEELING SOB AND SOUNDS WHEEZY. STAT EKG ORDERED. NOTIFIED BY GISELE DE LA CRUZ. RT IN FOR EKG. TO THE ROOM. VERBAL ORDERS TO PUSH 15 MG CARDIZEM. GISELE DE LA CRUZ PROVIDED THE MEDS. HR IMPROVED TO THE 80'S. REPEAT EKG DONE. DILTIAZEM DRIP ORDERED TO START AT 5 MG/HR. BP Q 15M. SEE VITAL SIGNS AND EMAR.
--- NOTE | 2019-12-16 01:45 | NUR ---
DOROTHY ALVARADO STATES "PT SAYS HE IS SHOB AND SOUNDS A LITTLE WHEEZE". PT WAS ASSESSED. PT SPO2 97 ON RA. WHEEZES GONE WHEN PT BREATHING IN THROUGH NOSE AND OUT MOUTH. DR CHENG CALLED AND STATES "NO NEB AT THIS TIME. CHEST XRAY AND THEN MAYBE BIPAP AFTER XRAY RESULTS". XRAY ORDERED BY DOROTHY ALVARADO.
--- NOTE | 2019-12-16 01:58 | NUR ---
XRAY IN FOR PORTABLE CHEST XRAY. PATIENT TOLERATED WELL. PATIENT CONTINUES TO FEEL SOB AND ANXIOUS. RR 30. ENCOURAGED PATIENT TO BREATH IN THROUGH NOSE AND OUT THROUGH HIS MOUTH. PATIENT REPORTS SHAKING HANDS, MILD TREMOR NOTED. 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 PATIENT ORIENTED. ENCOURAGED PATIENT TO REST.
--- NOTE | 2019-12-16 02:25 | NUR ---
PT SLEEPING, RESP ARE UNLABORED BUT CONT 25-28. DR BAKER NOTIFIED OF CXR RESULTS. WILL DC IVF AND GIVE 20MG LASIX IV.
--- NOTE | 2019-12-16 03:38 | NUR ---
SLEEPING, RESP REG BUT RATE STILL MID 20'S. HR 90'S, CONT ON CARDIZEM AT 5MG/HR.
--- NOTE | 2019-12-16 04:11 | NUR ---
PT AWAKENED WHEN RN IN TO EMPTY [facility] CATH. PT STATES BREATHING FEELS BETTER. BREATH TONES ESS CLEAR, WHEN HAD PT TURN TO LISTEN TO POST CHEST THEN DID DEVELOP SL UPPER AIRWAY WHEEZE. HAD 775ML URINE OUT SINCE LASIX WAS GIVEN.HR REMAINS 90'S, CONT ON CARDIZEM GTT AT 5MG/HR.
--- NOTE | 2019-12-16 05:32 | NUR ---
LAB IN TO DRAW. PT STATES HE HASN'T REALLY SLEPT. NO OTHER C/O. NO CHANGE CARDIZEM GTT.
--- NOTE | 2019-12-16 06:49 | EKG ---
[facility] [address] [facility] [place], [place] [address] Signed Sinus tachycardia Left axis deviation Abnormal ECG No previous ECGs available Confirmed by VIDAL BAKER MD [id number] on 12/16/2019 6:49:18 AM Electronically Signed By: VIDAL BAKER MD 12/16/19 0649 PATIENT NAME: DEMI EDWARD Electrocardiogram DATE OF : 46 PHYSICIAN: VIDAL BAKER MD REPORT #: [id number] REPORT IS CONFIDENTIAL AND NOT TO BE RELEASED WITHOUT AUTHORIZATION
--- NOTE | 2019-12-16 06:51 | EKG ---
[facility] [address] [place] [address] Signed Sinus rhythm with short NV with premature atrial complexes Otherwise normal ECG When compared with ECG of 16-DEC-2019 01:12, (Unconfirmed) premature atrial complexes are now present Vent. rate has decreased BY 70 BPM Criteria for Inferior infarct are no longer present ST no longer depressed in Lateral leads Confirmed by VIDAL BAKER MD ([id number]) on 12/16/2019 6:51:14 AM Electronically Signed By: VIDAL BAKER MD 12/16/19 0651 PATIENT NAME: DEMI EDWARD Electrocardiogram DATE OF : 46 PHYSICIAN: VIDAL BAKER MD REPORT #: [id number] REPORT IS CONFIDENTIAL AND NOT TO BE RELEASED WITHOUT AUTHORIZATION
--- NOTE | 2019-12-16 06:51 | EKG ---
[facility] [address] [facility] [place], [place] [address] Signed Supraventricular tachycardia Inferior infarct , age undetermined Cannot rule out Anterior infarct , age undetermined Abnormal ECG When compared with ECG of 15-DEC-2019 13:13, (Unconfirmed) Inferior infarct is now present ST now depressed in Anterolateral leads Confirmed by VIDAL BAKER MD ([id number]) on 12/16/2019 6:50:54 AM Electronically Signed By: VIDAL BAKER MD 12/16/19 0651 PATIENT NAME: DEMI EDWARD Electrocardiogram DATE OF : 46 PHYSICIAN: VIDAL BAKER MD REPORT #: [id number] REPORT IS CONFIDENTIAL AND NOT TO BE RELEASED WITHOUT AUTHORIZATION
--- NOTE | 2019-12-16 08:00 | NUR ---
ASSESSMENT DONE. PATIENT STATES HE DIDN'T SLEEP LAST NIGHT. DENIES PAIN. C/O SLIGHT SHORTNESS OF BREATH. CARDIZEM GTT REMAINS AT 5 MG/HR. HR 100, SR WITH PAC'S. LAB HAS BEEN IN ROOM TO DRAW BLOOD FOR T&S AND REPEAT CBC. TALKED WITH PATIENT ABOUT BLOOD COUNT, IS AWARE OF POSSIBLE BLOOD TRANSFUSION. LUNGS WITH FEW WHEEZES RIGHT. MERIDA CATH PATENT WITH CLEAR YELLOW URINE NOTED.
--- NOTE | 2019-12-16 09:30 | NUR ---
SAT AT BEDSIDE, SPONGE BATH GIVEN, TOLERATED WELL. THEN TO CHAIR, TRANSFERS FAIR WITH ASSIST. INCREASED SHORTNESS OF BREATH WITH EXERTION. THEN TO COMMODE. NO STOOL NOTED. BACK TO BED PER REQUEST. HAS AUDIBLE EXERTIONAL WHEEZES. RR MID 30'S, O2 SAT HIGH 90'S.
--- NOTE | 2019-12-16 11:12 | NUR ---
RESTING, DENEIS PROBLEMS. NO CHANGES. CARDIZEM GTT REMAINS AT 5 MG/HR.
--- NOTE | 2019-12-16 12:00 | NUR ---
ECHOO BEING DONE AT BEDSIDE.
--- NOTE | 2019-12-16 13:00 | NUR ---
ECHO COMPLETE. MASTER PRINTER TO CALL DR. BAKER REGARDING RESULTS. CLEAR LIQ TRAY HELD AT THIS TIME.
--- NOTE | 2019-12-16 13:30 | NUR ---
DR. BAKER HERE TO TALK WITH PATIENT ABOUT POSSIBLE TRANSFER TO [facility] THIS AFTERNOON. PATIENT IN ROOM AND AWARE.
--- NOTE | 2019-12-16 13:52 | NUR ---
UNABLE TO VISIT WITH PT-COVID 19 TEST PENDING. WILL FOLLOW ABLE
--- NOTE | 2019-12-16 14:30 | NUR ---
CLEAR LIQUIDS OFFERED, REFUSING.
--- NOTE | 2019-12-16 15:10 | NUR ---
TYLENOL 650 MG PO GIVEN FOR GENERAL COMFORT AND SEHN816.1 F.
--- NOTE | 2019-12-16 15:20 | NUR ---
ROOM CONFIRMED AT [facility]. WILL BE TRANSFERRED [facility]IA [facility] THIS AFTERNOON.
--- NOTE | 2019-12-16 15:50 | NUR ---
report called to sabi.
--- NOTE | 2019-12-16 16:15 | NUR ---
TO [facility] VIA [facility].
--- NOTE | 2019-12-16 16:22 | NUR ---
AMBULANCE CREW HERE TO TAKE PATIENT TO [facility], REPORT TO THEM.
--- NOTE | 2019-12-16 17:44 | PATH ---
[facility] [address] [facility] [place], [place] [address] Signed ORDERING PHYSICIAN: Chapincito Gilmore MD PATIENT NAME: DEMI EDWARD GENDER: Galen : 1950 SPECIMEN(S): No Source Given MOLECULAR PATHOLOGY RESULTS: SARS-CoV-2 Not Detected ADDITIONAL NOTES.: The [employer] Fusion SARS-CoV-2 Assay is a multiplex real-time PCR (RT-PCR) in vitro diagnostic test intended for the qualitative detection of RNA from SARS-CoV-2 from individuals who meet COVID-19 clinical and/or epidemiological criteria. In general, SARS-CoV-2 RNA can be detected during the acute phase of infection. Positive results indicate the presence of SARS-CoV-2 RNA. Clinical correlation with patient history and other diagnostic information is necessary to determine patient infection status. Positive results do not rule out bacterial infection or co-infection with other viruses. Negative results do not preclude SARS-CoV-2 infection and should not be used as the sole basis for patient management decisions. Negative results must be combined with other clinical observations, patient history, and epidemiological information. The [employer] Fusion SARS-CoV-2 Assay is not yet approved or cleared by the [place] FDA. When there are no FDA-approved or cleared tests available, and other criteria are met, FDA can make tests available under an emergency access mechanism called an Emergency Use Authorization (EUA). The EUA for this test is supported by the [place] of Health and Human Service's (HHS's) declaration that circumstances exist to justify the emergency use of in vitro diagnostics for the detection and/or diagnosis of the virus that causes COVID-19. This EUA will remain in effect for the duration of the COVID-19 declaration justifying emergency of IVDs, unless it is terminated or revoked by FDA, after which the test may no longer be used. The [employer] Fusion SARS-CoV-2 Assay is for use only under EUA in US laboratories certified under the Clinical Laboratory Improvement Amendments of 1988 (CLIA) to perform high complexity tests. [email or web address] is certified under CLIA to perform high complexity PATIENT NAME: DEMI EDWARD PATHOLOGY DATE OF : 46 REPORT #: [id number] PHYSICIAN: NEERAJ LEWIS PCP: OTHER PCP REPORT IS CONFIDENTIAL AND NOT TO BE RELEASED WITHOUT AUTHORIZATION [address] [address] Signed clinical laboratory testing. PERFORMING LABORATORY.: Molecular testing was performed by [email or web address] [facility] [place] [address] (Financial Operations Consultant: Christos Julien D.O.; CLIA#: [id number]) Diagnostician: System Interface Pathologist Electronically Signed 12/16/2019 Copies: ~ PATIENT NAME: DEMI EDWARD PATHOLOGY DATE OF : 46 REPORT #: [id number] PHYSICIAN: NEERAJ LEWIS PCP: OTHER PCP REPORT IS CONFIDENTIAL AND NOT TO BE RELEASED WITHOUT AUTHORIZATION
== END 2019-12-16 16:15 | disposition short-term general hospital (02) | DRG 871 ==
LOC: ED 13:04 → CCU 16:47
PROVIDERS: ADMIT Internal Medicine
DX: A41.89 Other specified sepsis (principal); G93.41 Metabolic encephalopathy; N39.0 Urinary tract infection, site not specified; I01.1 Acute rheumatic endocarditis; D73.9 Disease of spleen, unspecified; Z20.828 Contact with and (suspected) exposure to other viral communicable diseases
CPT/HCPCS: 36415; 71045; 74177; 80048; 80053; 81001; 83605; 85025; 85651; 86140; 86850; 86900; 86901; 87040; 87077; 87088; 87186; 93005; 93010; 93306; 96361; 99285-25; C9803; J0692; J1650; J1940; J2543; J7030; J7121; Q9967

== ENCOUNTER 2020-01-05 22:12 | Emergency (ER) | payer MEDICARE ==
[~2020-01-05] VITALS: Ht 165.1 cm; Wt 60.3 kg
--- OUTSIDE RECORDS SUMMARY | ~2020-01-05 | XMS | Encounter Summary ---
Demographics + + + | Address | [address] | | | [place] [address] | + + + | Home Phone | | + + + | Preferred Language | Unknown | + + + | Marital Status | | + + + | Moravian Affiliation | Unknown | + + + | Race | Unknown | + + + | Ethnic Group | Not or | + + + Author + + + | Author | [facility] | | | and [place] | + + + | Organization | [facility] | | | and [place] | + + + | Address | Unknown | + + + | Phone | Unavailable | + + + Support + + + + + | Name | Relationship | Address | Phone | + + + + + | Nathalie Hamm | ECON | [address] | | | | | [place] [address] | | + + + + + | Alvaro Newton | ECON | Unknown | | + + + + + Care Team Providers + +------+ + | Care Toeing Stockings Name | Role | Phone | + +------+ + | Sheng Combs MD | PCP | | + +------+ + Encounter Details +--------+ + + + + | Date | Type | Department | Care Team | Description | +--------+ + + + + | 01/03/ | Telephone | [facility] | Isaac Rocha, | | | 2019 | | PHARMACY SERVICES | PharmD | | | | | [place] [address] | | | | | | [address] | | | | | | [place], [place] | | | | | | [address] | | | | | | [phone] | | | +--------+ + + + + Social History + +-------+ +--------+ + | Tobacco Use | Types | Packs/Day | Years | Date | | | | | Used | | + +-------+ +--------+ + | Former Smoker | | 0.5 | 40 | 12/15/1965 - | | | | | | 06/17/2017 | + +-------+ +--------+ + + +------+---+ + | Smokeless Tobacco: | Chew | | Quit: | | Former User | | | 11/15/19 | | | | | 15 | + +------+---+ + + + +---------+ + | Alcohol Use | Drinks/Week | oz/Week | Comments | + + +---------+ + | Not Currently | | | | + + +---------+ + + + + | Sex Assigned at | Date Recorded | | | | + + + | Not on file | | + + + documented as of this encounter Functional Status + + + + | Functional Status | Response | Date of Assessment | + + + + | Are you deaf or do you have serious | No | 11/01/2019 | | difficulty hearing? | | | + + + + | Are you blind or do you have serious | No | 11/01/2019 | | difficulty seeing, even when wearing | | | | glasses? | | | + + + + | Do you have serious difficulty walking or | No | 11/01/2019 | | climbing stairs? (5 years old or older) | | | + + + + | Do you have difficulty dressing or bathing? | No | 11/01/2019 | | (5 years old or older) | | | + + + + | Because of a physical, mental, or emotional | No | 11/01/2019 | | condition, do you have difficulty doing | | | | errands alone such as visiting a doctor's | | | | office or shopping? [15 years old or | | | | older)] | | | + + + + + + + + | Cognitive Status | Response | Date of Assessment | + + + + | Because of a physical, mental, or emotional | No | 11/01/2019 | | condition, do you have serious difficulty | | | | concentrating, remembering, or making | | | | decisions? (5 years old or older) | | | + + + + documented as of this encounter Plan of Treatment +--------+---------+ + + + | Date | Type | Specialty | Care Team | Description | +--------+---------+ + + + | 01/07/ | Office | Anticoagulation | Kenroy Greenberg, | | | 2019 | Visit | | [address] | | | | | | [place] | | | | | | [address] | | | | | | | | +--------+---------+ + + + | 01/15/ | Office | Cardiothoracic | Keaton Ernandez, | | | 2019 | Visit | Surgery | [address] | | | | | | [place] | | | | | | [place] [address] | | | | | | [phone] | | | | | | | | +--------+---------+ + + + | 01/20/ | Office | Cardiology | Valarie, | | | 2019 | Visit | | [address] | | | | | [address] | | | | | | [place] | | | | | | [address] | | | | | | | | +--------+---------+ + + + | 01/20/ | Office | Infectious Diseases | Josh Mckeon DO | | | 2019 | Visit | | [address] | | | | | | [place] [address] | | | | | | [phone] | | | | | | | | +--------+---------+ + + + documented as of this encounter Visit Diagnoses Not on filedocumented in this encounter"
--- OUTSIDE RECORDS SUMMARY | ~2020-01-05 | XMS | Encounter Summary ---
Demographics + + + | Address | [address] | | | [place] [address] | + + + | Home Phone | | + + + | Preferred Language | Unknown | + + + | Marital Status | | + + + | Temple Affiliation | Unknown | + + + | Race | Unknown | + + + | Ethnic Group | Not or | + + + Author + + + | Author | [facility] | | | and [place] | + + + | Organization | [facility] | | | and [...] | | | | | [place] [address] | | + + + + + | Alvaro Newton | ECON | Unknown | | + + + + + Care Team Providers + +------+ + | Care Media Relations Intern Name | Role | Phone | + +------+ + | No, Physician | PCP | Unavailable | + +------+ + Reason for Visit Auth/Cert +--------+--------+ + + + + | Status | Reason | Specialty | Diagnoses / | Referred By | Referred To | | | | | Procedures | Contact | Contact | +--------+--------+ + + + + | | | | Diagnoses | | Oh, | | | | | Acute | | Jeet Aaron MD | | | | | bacterial | | [address] | | | | | endocarditis | | [address] | | | | | | | [place] | | | | | Endocarditis | | [place] | | | | | of mitral | | [id number] Phone: | | | | | valve | | [phone] | | | | | Severe | | Fax: | | | | | mitral | | [phone] | | | | | regurgitatio | | | | | | | n | | | | | | | Procedures | | | | | | | MN L HRT | | | | | | | CATH W/NJX L | | | | | | | | | | | | | | VENTRICULOGR | | | | | | | APHY IMG S&I | | | | | | | . | | | +--------+--------+ + + + + Encounter Details +--------+---------+ + + + | Date | Type | Department | Care Team | Description | +--------+---------+ + + + | 12/19/ | Surgery | [facility] | Job Menjivar, | EXTRACTION TEETH | | 2019 | | [facility] | DMD [address] | | | | | [address] | [place] [address] | | | | | [address] | [phone] | | | | | [place], [place] | | | | | | [address] | | | | | | [phone] | | | +--------+---------+ + + + Social History + +-------+ [...] + + documented as of this encounter Last Filed Vital Signs + + + + + | Vital Sign | Reading | Time Taken | Comments | + + + + + | Blood Pressure | 149/79 | 12/20/2019 7:35 AM | | | | | PDT | | + + + + + | Pulse | 108 | 12/20/2019 7:35 AM | | | | | PDT | | + + + + + | Temperature | 37.3 C (99.2 F) | 12/20/2019 7:35 AM | | | | | PDT | | + + + + + | Respiratory Rate | 18 | 12/20/2019 7:35 AM | | | | | PDT | | + + + + + | Oxygen Saturation | 100% | 12/20/2019 7:35 AM | | | | | PDT | | + + + + + | Inhaled Oxygen | - | - | | | Concentration | | | | + + + + + | Weight | 59.5 kg (131 lb 2.8 | 12/20/2019 3:54 AM | | | | oz) | PDT | | + + + + + | Height | 165.1 cm (5' 5") | 12/16/2019 7:59 PM | | | | | PDT | | + + + + + | Body Mass Index | 22.38 | 12/16/2019 7:59 PM | | | | | PDT | | + + + + + documented in this encounter Functional Status + + + [...] + + documented as of this encounter Discharge Summaries Keaton Ernandez PA - 12/31/2019 7:41 AM PDTFormatting of this note might be different fr om the original. Service: Cardiothoracic Surgery Discharge Summary Pt: Reilly Hamm AGE/SEX: 69 y.o. male ROOM: [facility]/9111-01 : 1950 PCP: Sheng Combs MD Date/Time:12/31/2019 7:41 AM PDT Date of Admission: 12/16/2019 Date of Discharge: 12/31/2019 Hospital Day: LOS: 15 days Surgery/Procedure: 12/24/2019, Dr Galvan Mitral valve replacement with a 29 mm Saint JudeEpic bioprosthetic valve Exploration of aortic valve Post-Op Day: 7 Days Post-Op Discharge Provider: LEA Cavanaugh Treatment Team: Jeet Tejeda MD; Jef Ryan MD; Maddi Dwyer MD; Olvin Mckeon MD Discharge Diagnoses: Principal Problem: Status post mitral valve replacement Active Problems: Acute bacterial endocarditis Diet-controlled diabetes mellitus Severe protein-calorie malnutrition Infectious endocarditis Endocarditis of mitral valve DUNIA (acute kidney injury) Mitral valve replaced Resolved Problems: Severe mitral regurgitation BRIEF HISTORY OF PRESENTATION: Reilly Hamm is a 69 y.o. male w/ severe symptomatic mitral regurgitation. The patient has been treated for bacterial endocarditis and currently has negative blood cul tures. The patient was felt to be an appropriate candidate for mitral valve replacement an d the risks, benefits, and alternatives were discussed in detail with the patient who acknow ledged understanding and wished to proceed. HOSPITAL COURSE: The patient was taken to the operating room and underwent the above procedure(s) on 2019. Operation was uneventful (please refer to operative note for details of the same). The patient tolerated the procedure well and was transferred to the ICU intubated and in stable condition, and was extubated per ICU protocol. He spent 4 nights in the ICU and on patient was transferred to the cardiac unit, hemodynamically stable. He received electroly te replacement per protocol and continued to make good recovery, ambulating, tolerating card iac diet, and passing bowel movements. Chest tubes and pacing wires were removed without com plication, and the patient remained stable without supplemental oxygen. The patient was fit for discharge to Home on 12/31/2019. Discharged on Warfarin for Mitral Valve replacement for 3mos Problems addressed during hospital stay: 1)Endocarditits: Discharged on IV Abx per ID. F/u with ID outpatient Past Medical History: Diagnosis Date Diabetes mellitus (HCC) Infectious endocarditis Mitral valve replaced 12/24/2019 29 mm Saint Jose R Epic bioprosthetic valve Severe mitral regurgitation Past Surgical History: Procedure Laterality Date CARDIAC CATHERIZATION N/A 12/19/2019 Procedure: CV LHC; Surgeon: Jeet Tejeda MD; Location: [facility] CV LAB CARDIAC CATHERIZATION N/A 12/19/2019 Procedure: CV COR ANGIO; Surgeon: Jeet Tejeda MD; Location: [facility] CV LAB CARDIAC CATHERIZATION Left 12/19/2019 Procedure: CV LV; Surgeon: Jeet Tejeda MD; Location: [facility] CV LAB MITRAL VALVE REPLACEMENT N/A 12/24/2019 Procedure: MITRAL VALVE REPLACEMENT; Surgeon: Reilly Galvan MD PhD; Location: [facility] CHRISTI N OR TOOTH EXTRACTION N/A 12/20/2019 Procedure: EXTRACTION TEETH; Surgeon: Job Menjivar DMD; Location: [facility] MAIN OR Allergies Allergen Reactions Canola Oil [Vegetable Oil] GI Upset Pt states that he gets upset stomach when ingesting canola oil. Soybean Oil GI Upset Pt states he gets upset stomach when he ingests soybean oil. Medications Prior to Admission Medication Sig Dispense Refill aspirin (ASPIRIN ADULT LOW STRENGTH) 81 MG EC tablet Take 1 tablet (81 mg total) by [facility] Daily 30 tablet 0 DISCHARGE EXAM Vital Signs: BP 145/67 | Pulse 75 | Temp 37 C (98.6 F) (Oral) | Resp 16 | Ht 1.651 m (5' 5") | Wt 61 kg (134 lb 7.7 oz) | SpO2 99% | BMI 22.38 kg/m Temp: [36.7 C (98 F)-37 C (98.6 F)] 37 C (98.6 F) Pulse: [75-86] 75 Resp: [16-18] 16 BP: (130-145)/(60-67) 145/67 Current weight: Patient Vitals for the past 96 hrs: Weight 12/31/19 0600 61 kg (134 lb 7.7 oz) 12/30/19 0500 60.1 kg (132 lb 7.9 oz) 12/29/19 0610 64.7 kg (142 lb 10.2 oz) 12/28/19 0600 65.3 kg (143 lb 15.4 oz) Admission weight: Weight: 59 kg (130 lb 1.1 oz) Physical Exam: General: Alert, oriented, in no acute distress,resting in bed Heart: RRR No murmur Lungs: CTA b/l Dim bases. Abdomen:Soft, nondistended, nontender Extremities: Well perfused, mild LE edema Musculoskeletal:no deformities or significant abnormalities Neurological: No gross focal motor or sensory deficits Skin:No rash or lesions. Mid-sternal incision dressing is C/D/I. Chest tube removed inc ision C/D/I. Pacing wires removed EVH incisions C/D/I. DATA Recent Results (from the past 24 hour(s)) POC Glucose Result Value Ref Range Glucose, POC 99 65 - 99 mg/dL POC Glucose Result Value Ref Range Glucose, POC 110 (H) 65 - 99 mg/dL Basic Metabolic Panel Result Value Ref Range Na 136 135 - 145 mmol/L K 4.1 3.5 - 4.9 mmol/L Cl 102 99 - 109 mmol/L CO2 27 23 - 32 mmol/L Anion Gap 11 5 - 20 mmol/L Glucose 101 (H) 65 - 99 mg/dL BUN 10 8 - 25 mg/dL Creatinine 0.86 0.70 - 1.30 mg/dL BUN/Creatinine Ratio 12 Calcium 8.4 (L) 8.5 - 10.5 mg/dL Estimated GFR >60 >60 mL/min/1.73m2 CBC with Differential Result Value Ref Range WBC 7.61 3.80 - 11.00 K/uL Red Blood Cells 3.36 (L) 4.20 - 5.70 M/uL Hemoglobin 9.2 (L) 13.2 - 17.0 g/dL Hematocrit 29.2 (L) 39.0 - 50.0 % MCV 86.9 80.0 - 100.0 fl MCH 27.4 27.0 - 34.0 pg MCHC 31.5 (L) 32.0 - 35.5 g/dL RDW-SD 53.1 (H) 37 - 53 fl Platelet Count 324 150 - 400 K/uL MPV 9.9 fl Diff Type AUTOMATED % nRBC 0.0 0 /100WBC % Neutrophils 67.30 % IMMATURE GRANULOCYTE 0.30 % % Lymphocytes 18.50 % Monocyte % 12.20 % Eosinophils % 1.40 % Basophils % 0.30 % Neutrophils, Absolute 5.12 1.90 - 7.40 K/uL IMMATURE GRANS AB 0.02 0.00 - 0.07 K/uL Absolute Lymphocytes 1.41 1.00 - 3.90 K/uL Absolute Monocytes 0.93 (H) 0.00 - 0.80 K/uL Eosinophils, Absolute 0.11 0.00 - 0.50 K/uL Basophils, Absolute 0.02 0.00 - 0.10 K/uL Magnesium Result Value Ref Range Magnesium 1.5 (L) 1.7 - 2.4 mg/dL Protime INR Result Value Ref Range INR 2.9 PLAN 1. Patient is discharged to Home. 2. Pt instructed to schedule follow-up appointments as below. 3. Education: Cardiac Surgery: The patient is being discharged with instructions on cardiac diet, jamari rnal precautions x 12 weeks and surgical incision care are according to the Society of Thora cic Surgeon guidelines. The patient is given instructions to start cardiac rehabilitation in accordance with yield improvement engineer recommendations. Pt advised not to drive for 6 weeks post disc harge. The patient was given extensive education regarding incision precautions. He/She was instructed to take showers using only soap and water on the incisions. The patient was encou raged to contact us in case he/she developed high fever, discharge from his/her wounds, or e xperience same symptoms prior to surgery Cardiothoracic Surgery will manage prescriptions until pt has seen seen Speech Communication Instructor and Primary Care Physician, who will resume prescription management afterwards. Discharge Checklist: Aspirin (81mg/day) is being given at discharge:Yes A beta rip is being given at discharge:No, because of bradycardia. A high-intensity statin (e.g., atorvastatin at 40-80 mg/day) is being given at discharge :Yes. Adherence to lipid modifying therapy to be monitored by cardiology An JENNIFER inhibitor or ARB is being given at discharge:Yes Warfarin is being given at discharge and will be managed by: The anticoagulation clini c ([facility]) with a goal INR of 2-3. Tobacco cessation counseling is being given at discharge: N/A, because the patient does not use tobacco. A referral to phase 2 cardiac rehabilitation will be given by cardiology. Disposition: Discharge to: Home Condition: Stable Code Status: Full Code Discharge Procedure Orders CBC with Manual Differential Standing Status: Standing Number of Occurrences: 4 Standing Exp. Date: 12/29/20 Comprehensive Metabolic Panel Standing Status: Standing Number of Occurrences: 4 Standing Exp. Date: 12/29/20 Sedimentation Rate Standing Status: Standing Number of Occurrences: 4 Standing Exp. Date: 12/29/20 C-Reactive Protein Standing Status: Standing Number of Occurrences: 4 Standing Exp. Date: 12/29/20 Amb referral to external anticoagulation monitoring Referral Priority: Routine Referral Type: Evaluate & Treat Referral Reason: Specialty Services Required Requested Specialty: Anticoagulation Number of Visits Requested: 1 Referral to Home Health Referral Priority: Routine Referral Type: Evaluate & Treat Referral Reason: Specialty Services Required Requested Specialty: Home Health Services Number of Visits Requested: 1 Follow up: Reilly Galvan MD [facility] [address] [place] [facility] [id number] Schedule an appointment as soon as possible for a visit in 2 weeks Post-op Jeet Tejeda MD [address] [place] Formerly named [facility] [id number] Schedule an appointment as soon as possible for a visit in 2 weeks Post-op Maddi Dwyer MD [address] [facility] [id number] Schedule an appointment as soon as possible for a visit in 2 weeks Post-op Sheng Combs MD [address] [address] You have an upcoming appointment on at 1:40pm on Monday, January 06, 2020. Discharge Medications New Medications Details acetaminophen 500 mg tablet Take 2 tablets by mouth EVERY 6 TO 8 HOURS NEEDED for Pain. aka: TYLENOL ascorbic acid 500 mg tablet Take 1 tablet by mouth Daily for 60 days. aka: VITAMIN C atorvaSTATin 40 mg tablet Take 1 tablet by mouth nightly. aka: LIPITOR cefTRIAXone (ROCEPHIN) IVPB (custom dose) 2 g Inject 2 g into the vein Daily for 27 days. Indications: Bacteria in the Blood, endocardit is Start: January 04, 2020 cefTRIAXone 40 MG/ML IVPB Inject 50 mLs into the vein every 12 hours for 4 days. Indications: Bacteria in the Blood aka: ROCEPHIN ferrous sulfate 325 mg tablet Take 1 tablet by mouth 2 times daily (with breakfast & dinner). lisinopril 2.5 MG tablet Take 1 tablet by mouth Daily. aka: PRINIVIL,ZESTRIL oxyCODONE 5 mg tablet Take 1 tablet by mouth every 6 hours as needed for Pain. aka: ROXICODONE warfarin 3 MG tablet Take 1 tablet by mouth Daily. aka: COUMADIN Unchanged Medications Details aspirin 81 MG EC tablet Take 1 tablet (81 mg total) by mouth Daily aka: ASPIRIN ADULT LOW STRENGTH Discharge took less than 30 minutes, to include final examination, discussion of admission, and preparation of prescriptions, instructions for on-going care, follow-up and documentati on of discharge summary. LEA Cavanaugh 12/31/2019 documented in this enco unter Discharge Instructions Instructions Jannette Solis RN - 12/30/2019 Cardiothoracic Surgery Discharge Instructions Routine Follow Up Appointments Follow up with Cardiothoracic Surgery, Dr Galvan in 2wks. [facility]. Please call [phone] for questions/concerns Follow up with your Speech Communication Instructor, Dr. Tejeda, in 2 weeks. Please make an appointment. Follow up with your Infectious Disease, Dr. Dwyer, in 2 weeks. Please make an appoint ment. Follow up with your Primary Care Physician in 3-4 weeks. Please make an appointment. General Instructions Follow the instructions in the the [facility] Cardiac Surgery Navigation Guide. This guide is a n excellent resource for concerns you and your family may have as you heal from surgery. Watch the [facility] Heart Surgery video on YouTube: [email or web address].com/[email or web address] The [facility] Cardiothoracic Surgery office will contact you within 72 hours of your hospital discharge. If you do not receive a phone call or have any concerns before then, please call our office Mon-Fri 8:00am-5:00pm at [phone]. Please make sure we have the best conta ct number for you before you leave the hospital. Recovery Course: Until post-op week 6: please adhere to strict sternal precautions. Sternum is approx. 30-50% healed, given no complications. This includes the following: no pulling, pushing, or lifting, anything heavier than a mi lk jug or upper body opposing motion (arms in going in opposite directions). No driving until post-op week 6. No side-sleeping until post-op week 6. Post-op week 6-10: Sternum is approximately 50-90% healed. Begin Cardiac Rehab (this is approximately 3-5x/ week for 30 mins each). Referred to you by your yield improvement engineer. Post-op week 10-12: Sternum is approximately 90-100% healed. Should be near/at/better w/ your recovery than you were prior to surgery. Tips/Tricks for a Successful Recovery: Walk, walk, walk, walk as much as you can, a little farther each walk. Use your IS a few times every hour for a week, and then once /hr the next week and so on . Diet *These are in addition to any dietary restrictions you may already follow for other conditions. Most importantly: limit your sugar intake. (Yes, even if you are not a diabetic). Resear shows that sugar is a direct reflection to inflammation, which is not helpful for recover y. Continue a low sodium (salt) diet throughout the course of your life. Salt will cause hy pertension (high blood pressure). Try to decrease your intake of saturated fats (greasy/fried foods) and cholesterol. Increase your intake of high fiber foods such as vegetables, fruit, and whole grains. No caffeine while you are initially recovering from surgery as it can cause heart palpit ations. A cup of coffee a day is okay as long as your not experiencing symptoms. No alcohol, especially when taking pain medications (ie: narcotics). Eat plenty of fresh fruits and vegetables, especially that have the skin on them, to hel p reduce constipation. Tips/Tricks: Of your week's meals, try to eat 80% that are fresh food that isn't from a can, box, bag , or frozen. Try to eat a majority of your foods from the perimeter of the grocery store. Avoid the m iddle aisles, these foods are high in preservatives and are unhealthy options. Bowel Care Most patients experience some degree of constipation after surgery. To minimize constipati on: Take 4-6 short walks daily if able Take a twice daily fiber supplement such as Benefiber, Citrucel, or Metamucil Take stool softeners daily as prescribed, such as Colace Take over the counter medicines such as Milk of Magnesia (MOM) or Miralax. Tips/Tricks: In order to wipe after a bathroom visit, make sure you grab one shoulder wi th one arm, and turn your whole upper body towards the side you will use to wipe. This helps follow strict sternal precautions for 6 weeks. Daily Monitoring Follow the home care instructions in the [facility] Cardiac Surgery Navigation Guide. Please monitor your weight, blood pressure, heart rate and blood glucose daily (diabetics o nly) daily. Notify the [facility] Cardiothoracic Surgery office if: Any weight gain/loss of 4lbs or more in 2 days. Weigh yourself daily in the AM. Temperature greater than 101F. Redness, swelling, drainage, or increased tenderness along your incision. Significant shortness of breath, weight gain or loss, ankle swelling, or chest pain. Persistent loose stools or diarrhea. Medication Instructions Your medications may change after surgery. Some of these changes will be temporary, other changes are related to your halfway health maintenance. Ultimately your yield improvement engineer or [facility] care physician will determine what medications you should continue after you recover f rom surgery. Only take the medications on your Discharge Medication List when you leave the hospital. Review the list with your nurse prior to leaving the hospital and at the pharmacy when p icking up your medications. Cardiothoracic Surgery will manage prescriptions until you have seen your Speech Communication Instructor a [place] Primary Care Physician, in which they will resume prescription management afterwards. Dressings and Stitches You will not be leaving the hospital with a dressing on your surgical incision site. Theref ore, it is important to monitor for the changes covered under daily monitoring. All the stitches along your mid-sternal and leg incisions will dissolve and do not need to be removed. If you have any visible stitches at smaller incision sites (where the chest t ubes were) please have them removed at your follow up visit with [facility] Cardiothoracic Surge ry - no later than 2 weeks after your surgery. Wash incision with soap and water - do not scrub, rinse with warm water, and do not allo w the shower water to directly impact the incision (ie: place back towards shower head). Use clean towels on incision sites. Pat dry, do not cross contaminate. No baths, hot tubs, or swimming until incision sites are 100% scab-free and look like a scar. Do not use any dressings, lotions, creams, oils, neosporin, band-aids etc, on incisions. Reason to go to ER/Call 911 1. You cannot breathe. 2. You are having chest pain or pain that radiates into your jaw, arm, or the middle of you r back. 3. You feel as though you are going to lose consciousness. 4. Your heart is racing too fast or feels irregular. Reason to call our office 1. Weight gain of 2-5 lbs in 24 hours. Please take daily weights. 2. Drainage from any of your incisions, or opening of any incisions (Signs of infection (re dness, swelling, drainage, or warmth) at the incision site 3. Popping or clicking in chest - immediately stop the movement which caused that symptom. If it persists please call us, and we will order a Chest x-ray or CT scan. 4. Chest pain or a return of the heart symptoms you had before your surgery, changes in the location, type, or severity of pain 5. Fever above 100F (37.8C) 6. Shortness of breath 7. Fainting 8. New or increased swelling in your hands, feet, or ankles 9. Fast or irregular pulse 10. Any unusual bleeding Normal recovery: 1. Small lump at the top of the sternal incision that will resolve with time. 2. Numbness or tingling in small or ring finger, due to pinched cervical nerve from positio ahsan during surgery. 3. Pain across chest: Due to surgical retraction, LEON extraction; you may also experience pain in the neck, back, hips, or shoulder. 4. Sensitivity to your heart: More acute awareness of your heartbeat (sound, sensation) - a fter surgery the pericardium is no longer intact and there is no fluid to insulate the heart . Over time scar tissue will develop and sensitivity will diminish. 5. Neurological Cognitive Disfunction: The heart-lung machine causes micro emboli, which ca n cause short term memory loss, confusion, and/or inability to focus - the symptoms should s lowly resolve over time. Exercise: Ambulating: Progressively increase the amount of time and distance. The goal is to walk a minimum of 6 times a day. Do not use arms to push, pull, or lift greater than 5 lbs. Move arms symmetrically, not opposing (different directions). Emotions: It is common to feel somewhat emotional and/or depressed at times. You may also feel tired, irritable, anxious, or simply not quite yourself for a few weeks. These feelings usually im prove as your recovery progresses. If they don't, discuss these feelings with your primary c are provider. Sex: Rest assured that sex won't interfere with your healing. Until the breast bone is fully hea led, select a position that will reduce discomfort or stress to the breast bone. Cardiac Rehabilitation: Your Speech Communication Instructor will refer you to Outpatient Cardiac Rehabilitation. This program can ass ist you with supervised exercise and education that focus on your specific risk factors. In addition, it helps to "retrain" you to perform normal tasks that may be difficult immediatel y after surgery. Cardiac rehab starts at about 4-6 weeks post-op and lasts for 12 weeks, wit h 3 visits per week, and about 1 hour per visit. Your yield improvement engineer will provide you with a r eferral to cardiac rehab when he/she feels that you are physically ready. After Coronary Artery Bypass Surgery Your doctor performed coronary artery bypass graft surgery (also called CABG, [facility] ). This surgery created new pathways around blocked parts of your heart s blood vessels, allowing blood to reach your heart muscle. Your doctor used a healthy blood vessel from another part of your body (a graft) to restore blood flow. Activity Discuss with your doctor what you can and can t do as you recover. You will have good and bad days. This is normal. But tell your doctor if you feel depressed, have trouble sleep ing, or have a persistent decrease in appetite. Although these problems are common after sunil shaan, they can slow your recovery. It s important to seek help. Let others drive you wherever you need to go for the first 3 to 6 weeks after your surge ry. Ask someone to stand nearby while you shower or do other activities, just in case you ne ed help. Avoid using very hot water while showering. It can affect your circulation and make you dizzy. Weigh yourself every day, at the same time of day, and in the same kind of clothes. Grisel herndon weight gain can be a sign of a problem that needs your doctor s attention. You may start doing light work around the house and yard after 2 to 3 weeks at home. Don t lift anything heavier than 5 pounds. Until approved by your doctor, avoid mowing the la wn, vacuuming, driving, and doing other activities that could strain your breastbone. Ask your doctor when you can expect to return to work. Pain Relief You will recover faster after surgery if your pain is kept under control: Don t be surprised if you feel sharp pains as your breastbone heals or if you have sor eness in your incision during changes in weather. Tell your doctor if you have questions about what you re feeling, if your medications don t reduce your pain, or if you suddenly feel worse. Controlling Your Risk Factors After Bypass Surgery Managing coronary artery disease After surgery, the blood flow to your heart is better, but new blockages can still form. Yo u need to take steps to prevent this. By committing yourself to managing your risk factors f or coronary artery disease, commonly called heart disease, you can help keep new blockages f rom forming. This will lower your changes of needing another bypass surgery. Controlling risk factors To manage heart disease, you must control as many risk factors as you can. [facility] to identify your risk factors and to get them under control. Your health care provider will work with you to modify lifestyle factors as needed to help prevent profression of atherosclerotic cardiovascular disease (ASCVD), which may be the caus e of your chest pain (angina). Factors you may need to work on include: Diet Your health care provider will give you information on dietary changes that you may need to make, based on your situation. Your provider may recommend that you see a registered dietit sukhdev for help with diet changes. Changes may include: Reducing fat and cholesterol intake Reducing sodium (salt) intake, especially if you have high blood pressure Increasing your intake of fresh vegetables and fruits Eating lean proteins, such as fish, poultry, and legumes (beans and peas) and eating les s red meat and processed meats Using low-fat dairy products Using vegetable and nut oils in limited amounts Limiting sweets and processed foods such as chips, cookies, and baked goods Weight management If you are overweight or obese, your health care provider will work with you to lose weight and lower your body mass index (BMI) to a normal or near-normal level. Making diet changes and increasing physical activity can help. Heart Medications After Bypass Surgery Heart medications Your doctor may prescribe some of these medications after your bypass surgery: Antiplatelet medications (such as aspirin) help prevent blood clots. They also reduce yo ur risk of a heart attack. Beta-blockers reduce the heart rate and the force of the heartbeat. They also lower bloo d pressure. JENNIFER inhibitors lower blood pressure and decrease strain on the heart. Lipid-lowering medications reduce the amount of LDL ( bad ) cholesterol and other fa ts in the blood. Some medications also improve levels of HDL ( good ) cholesterol. Other medications Depending on your risk factors, you may also take medications for related conditions: If you have high blood pressure, you may take medications such as diuretics and vasodila tors. These lower blood pressure, which helps control heart disease. If you have diabetes, pills or insulin injections can keep blood sugar under control. Th is reduces the risk of diabetes complications, including heart disease. Tips for taking medications Set up a routine. For example, take your medication with the same meal each day, or befo re you go to bed. Keep a list of all your medications and their dosages. Show this list to any doctor or d entist who treats you. Also, show it to your pharmacist before buying any prescription or ov [id number] medication. Managing Pain After Bypass Surgery Taking your medicines After your bypass surgery, you may be given prescriptions for new medicines when you leave the hospital. Take each one as directed. Keeping a chart or putting your pills in a 7-day pi ll box can help you remember. Starting a Cardiac Rehab Program After Bypass Surgery A cardiac rehab program can take place in a hospital, a clinic, or a doctor's office. You' ll work with a team of specialists. Your team may include doctors, nurses, exercise speciali sts, dietitians, and counselors. Cardiac rehab can help you get back into your normal routin e after surgery. It also provides tools to improve your overall health for the rest of your life. Program components A cardiac rehab program includes the following: Exercise. You'll learn how to exercise safely. Your program will include exercises to in crease fitness, endurance, and strength. Nutrition education. You'll work with a dietitian to learn the best ways to eat for hear t health. You'll also learn ways to use this knowledge when you shop, cook, and eat out. Help managing risk factors. You'll learn about controlling related conditions such as hi gh blood pressure, high cholesterol, and diabetes. Counseling. You'll get help dealing with the emotional aspects of CAD and treatment. Thi s may include help with depression and anxiety. It may also include practical advice and sup port for quitting smoking, losing weight, being physically active, and continuing your sex l karmen. Family education. Your family can learn with you. That way, they can help you to continu e using your new skills and knowledge after you finish the program. Your Emotional Health After Bypass Surgery Having heart disease and heart surgery may trigger a variety of feelings. While you may be relieved to have had treatment, you may also feel depressed or angry at times. You may also feel that your loved ones don t let you do enough. These feelings are normal, but they can make you short-tempered with those around you. Letting them know how you feel will help kamille id misunderstandings. Talking about your feelings and needs If your loved ones know how you feel, they can support you better. When you talk with your spouse or other loved ones: Choose a time when you can relax and talk without being disturbed. Use terms such as I feel or I need you to This tells your loved one ho w you feel without blaming him or her. Be sure to give your loved one time to say what he or she feels and needs. This is a stacey d time for those close to you, too. You may want to talk first to a friend or family member who doesn t live with you. Thi s can help you understand your own feelings. Notes to family and friends Accept that your loved one may be depressed or angry at times. Try not to blame yourself for these feelings. Recognize that you may feel angry or depressed, too. Try to talk openly about your feeli ngs. You may want to talk with a friend or other family member first MEDICATION: BETA-BLOCKERS You have been prescribed a beta-rip. This is a special type of drug that contains many different generic and brand names, such as Inderal, (propranolol), Tenormin (atenolol), Lopr essor (metoprolol), Corgard (nadolol), and others. They are used for angina, high blood pres sure, rapid heart rate, migraine headaches, and other problems. DIRECTIONS FOR USE: Unless otherwise stated, take your medicine on an empty stomach either one half hour bef ore meals or 2 hours after a meal. If you find that it causes nausea when taken on an empty stomach, you may take it with food. Take the medicine at regular intervals and as directed. Please take your blood pressure before you take each dose. If your blood pressure (top n umber) is less than 110 or your heart rate is less than 60, please skip that one dose and th en resume your regular medication regimen. If you were given this medicine for high blood pressure, measure your blood pressure ramírez ry few days to check your response. You may measure your own blood pressure at home, or have someone do it for you at a pharmacy, clinic, or your doctor s office. Notify your doctor if your pressure does not begin to improve within 1 week. Notify your doctor if your blood p ressure goes below 110/60 on 2 readings in a row (this is too low) or if your pulse stays be low 60. The goal for most persons is to get their blood pressure below 140/90 and pulse unde r 100. If you were told to take this medicine every day, do not skip doses or suddenly stop karlo ing this medicine since this might make your condition worse. Talk to your doctor if you nee d to stop this medicine so you can reduce the dose gradually. WHAT TO WATCH FOR: POSSIBLE SIDE EFFECTS: Nausea, vomiting, cramps, gas (Take the medicine with food. Contact your doctor if symptoms persist). Sedation, fatigue, dizziness, confusion, diarrhea, or cons tipation (Contact your doctor if these effects persist). Shortness of breath, wheezing, swel ling of feet or legs, slow pulse, fainting (Contact your doctor or return to this facility p romptly). MEDICAL CONDITIONS: Before starting this medicine, be sure your doctor knows if you have an y of the following conditions: or Asthma, chronic bronchitis or emphysema Heart disease or diabetes Thyroid, liver, or kidney disease DRUG INTERACTIONS: Before starting this medicine, be sure your doctor knows if you are taki ng any of the following drugs: Tagamet (cimetidine), calcium channel blockers (Calan, verapamil), another beta-rip, theophylline (Aminophylline, Theodur), MAO inhibitors (Parnate) tranylcypromine, Nardil (ph enelzine) WARNING:Do not drive, ride a bicycle, or operate dangerous equipment while taking this medi cine until you know how it will affect you. What is Coronavirus? The Novel Coronavirus 2019 (COVID-19) is a new virus strain that is spread mainly from pers [id number] through respiratory droplets when an infected person coughs or sneezes. Symptom s may appear 2-14 days after exposure. Reported illnesses have ranged from mild symptoms to severe illness and for confirmed cases. Some people testing positive for COVID-19 have no symptoms at all (asymptomatic). The most common symptoms include: ? Cough ? Shortness of breath or difficulty breathing ? Fever ? Chills ? Muscle pain ? Sore throat ? New loss of taste or smell COVID-19 is most commonly spread from an infected person to others through: ? Between people who are in close contact with one another (within about 6 feet). ? Respiratory droplets produced by coughing and sneezing. These droplets can land in the mo uths or nose of people who are nearby or possibly be inhaled into the lungs. ? Touching a surface with the virus on it and then touching your mouth, nose, or eyes befor e washing your hands. How to protect yourself ? Avoid touching your eyes, nose and mouth with unwashed hands. ? Wash your hands often with soap and water for at least 20 seconds. This is especially imp ortant after blowing your nose, coughing, or sneezing; going to the bathroom; and before eat ing or preparing food. ? If soap and water are not available, use an alcohol-based hand seconds handler with at least 60 % alcohol covering all surfaces of your hands and rubbing them together until they feel dry. ? Cover your cough or sneeze with a tissue, then throw the tissue in the trash. (Putting a tissue on a table contaminates the surface of the table with germs.) ? Routinely disinfect frequently touched objects and surfaces, using a cleaning spray or wi pe. ? Avoid travel to high-risk countries. Non-essential travel to or through any of the countr ies for which the CDC has issued a level 2 or 3 travel health notice is discouraged. https://www.cdc.gov/coronavirus/2019-ncov/travelers/index.html ? Stay at least 6 feet away from others when in public places, do not gather in groups, sta y out of crowded places, and avoid mass gatherings to slow the spread of the virus. ? Use of a simple cloth face covering to slow the spread of the virus in public settings wh ere it's hard to stay away from others, such as in grocery stores, pharmacies, and other are as where the virus might easily spread. Cloth masks do not protect the wearer but instead h old in droplets from sneezing or coughing to prevent spreading to other people and surfaces. Cloth face coverings fashioned from household items or made at home from common materials a t low cost can be used. It is not recommended to use surgical masks or N-95 respirators. A few definitions that you should be familiar with regarding COVID-19: Quarantine is used to keep someone who might have been exposed to COVID-19 away from others . Isolation is used to separate people infected with the virus (those who are sick from COVID -19 and those with no symptoms) from people who are not infected. Both quarantine and isolation are similar that they: ? involve separation of people to protect the public ? help limit further spread of COVID-19 ? can be done voluntarily or be required by health authorities What to do if you are sick? ? If you have a fever and cough, you may have COVID-19. Notify your medical provider. ? Stay home except to get medical care (see for Home Isolation) ? Monitor your symptoms When you should seek medical evaluation and advice? ? Call 911 if you have a medical emergency such as trouble breathing, persistent pain or pr essure in the chest, and/or bluish lips or face. If you have a medical emergency and need to call 911, notify the collator operator that you have or think you might have, COVID-19. If possible, put on a facemask before medical help arrives. ? If you are 65 and older, or have underlying conditions such as , heart disease, diabetes, lung disease and weakened immune system, work with your doctor to develop a plan t o determine your health risks to COVID-19 and how to manage symptoms. If you do have symptom s, contact your doctor immediately. ? For worsening symptoms or difficulty breathing, please contact your primary care provider or consider a virtual visit. ? If you do not have a high-risk condition and your symptoms are mild, you do not need to b e evaluated in person and do not need to be tested for COVID-19. (Please see Home Quarantin e and Isolation Instructions below) ? We ask that you please avoid coming to the emergency department, unless you have a health emergency and/or you have been advised by a provider to do so. This helps prevent the risk of spreading this disease and further exposure in our community and allows us to dedicate cr itical and limited emergency resources to those who are very sick. Who should be tested? A common question right now is, Why can't I get tested? The answer: Not everyone need s to be tested. Given the short supply of testing supplies and protective equipment for our health care workers, the CDC recommends that people who are hospitalized, healthcare worker who have COVID-19 symptoms, residents in nursing facilities or jail communities or home health, or those who are high risk (older adults, chronic diseases, immunosuppressed) s hould be prioritized for testing. These recommendations may evolve to include more people ov er time, as this situation is evolving rapidly. It is not recommended to test individuals wh o do not have COVID-19 symptoms. What to do if you think you have been exposed to COVID-19? If you feel healthy but recently had close contact with a person known to have COVID-19, yo u need to self-quarantine. Follow the self-quarantine instructions listed below: ? Check your temperature twice a day ? Stay home for 14 days from the time of exposure and self-monitor for fever, cough, and sh ortness of breath. ? Contact your medical provider if your temperature is greater than 100.4 and you develop c ough or shortness of breath. ? If possible, stay away from people who are high-risk for getting very sick from COVID-19. Does this mean my family or other people I live with need to self-quarantine? Other members of the household are not required to self-quarantine, unless they have been t old by a medical professional to do so. If you develop symptoms and are suspected to have CO VID-19, members of the household will be classified as close contacts and will then need to be in self-quarantine. Please speak to your health care provider and/or health department fo r further instructions. What are the guidelines for home quarantine and home isolation? ? Restrict activities outside your home, except for seeking medical care. ? Do not go to work, another person's home, school or public areas. ? Do not use public transportation. ? Cover coughs and sneezes. ? Avoid close contact with household members. When this is not possible, stay at least 6 fe et from other people and wear a cloth face covering. During the COVD-19 pandemic, medical-gr ebony masks are reserved for healthcare workers. ? Use separate sleeping and bathroom/bathing facilities, if feasible. ? Wash your hands often with soap and water for at least 20 seconds. This is especially imp ortant after blowing your nose, coughing, or sneezing; going to the bathroom; and before eat ing or preparing your food. ? Use hand seconds handler if soap and water are not available. Use an alcohol-based hand sanitiz er with at least 60% alcohol, covering all surfaces of your hands and rubbing them together until they feel dry ? Cover your mouth and nose with a tissue when you cough or sneeze. Throw away used tissues in a lined trash can. Wash your hands afterwards. ? Clean and disinfect high-touch surfaces in your sick room and bathroom with a house hold disinfectant. High-touch surfaces include phones, remote controls, counters, doorknobs, tabletops, bathroom fixtures, toilets, keyboards, and bedside tables. Let someone else otto n and disinfect surfaces in common areas, but not your bedroom and bathroom. ? Avoid sharing personal household items (dishes, drinking glasses, cups, eating utensils, towels, or bedding) with other people or pets in your home. After using these items, they sh ould be washed thoroughly with soap and water or in the farmworker cranberry/washer. ? Call ahead before visiting your doctor. This will help the healthcare provider's office t shayy steps to keep other people from getting infected or exposed. ? If you have been tested for COVID-19, stay home until your healthcare provider contacts y ou about your test results. When should I discontinue self-quarantine? If you have tested positive for COVID-19, you can leave home after these three things have happened: ? At least 3 days (72 hours) have passed since resolution of fever (temperature less than 1 00.0F or 37.8C) without the use of fever-reducing medications (e.g. Tylenol, Ibuprofen) AND ? At least 3 days of improvement in respiratory symptoms (e.g. cough, shortness of breath) AND ? At least 10 days have passed since symptoms first appeared If you have tested positive for COVID-19 and are retested, you can leave home after these t hree things have happened: ? Resolution of fever (temperature less than 100.0F or 37.8C) without the use of fever-redu cing medications (e.g. Tylenol, Ibuprofen) AND ? Improvement in respiratory symptoms (e.g. cough, shortness of breath) AND ? Negative test results of COVID-19 from at least two consecutive samples collected 24 hrs or more apart If you are waiting for COVID-19 test results or you are symptomatic but did not require tejinder ting, you can leave home after the following things have happened: ? At least 3 days (72 hours) have passed since resolution of fever (temperature less than 1 00.0F or 37.8C) without the use of fever-reducing medications (e.g. Tylenol, Ibuprofen) and at least 3 days of improvement in respiratory symptoms (e.g., cough, shortness of breath), a nd at least 10 days have passed since symptoms first appeared. OR ? Two negative test results received and at least 24 hours have passed since resolution of fever (temperature less than 100.0F or 37.8C) without the use of fever-reducing medications (e.g. Tylenol, Ibuprofen). How is COVID-19 treated? Most people with COVID-19 will recover on their own. There is no specific antiviral treatm ent recommended for COVID-19 at this time. People with COVID-19 should receive supportive ca re to help relieve symptoms. For severe cases, treatment should include care to support jg l organ functions. Additional Information For up-to-date information about coronavirus and the community public health response, joshi t your local public health website. CDC: COVID-19: https://www.cdc.gov/coronavirus/2019-ncov/index.html [place] Coronavirus Advisory: https://www.[place].org/nkdcagbe-jxk-snvlvctp/coron avirus-advisory Virtual Visits Available [email or web address] documented in this encounter Medications at Time of Discharge + + + +---------+ + + | Medication | Sig | Dispensed | Refills | Start | End Date | | | | | | Date | | + + + +---------+ + + | acetaminophen | Take 2 tablets by | | 0 | 08/18/20 | | | (TYLENOL) 500 mg | mouth EVERY 6 TO 8 | | | 20 | | | tablet | HOURS NEEDED for | | | | | | | Pain. | | | | | + + + +---------+ + + | ascorbic acid | Take 1 tablet by | 30 | 1 | 08/18/20 | | | (VITAMIN C) 500 mg | mouth Daily for 60 | tablet | | 20 | 0 | | tablet | days. | | | | | + + + +---------+ + + | aspirin (ASPIRIN | Take 1 tablet (81 mg | 30 | 0 | 11/01/19 | | | ADULT LOW STRENGTH) | total) by mouth | tablet | | 20 | | | 81 MG EC tablet | Daily | | | | | + + + +---------+ + + | atorvaSTATin | Take 1 tablet by | 30 | 1 | 12/30/19 | | | (LIPITOR) 40 mg | mouth nightly. | tablet | | 20 | | | tablet | | | | | | + + + +---------+ + + | cefTRIAXone | Inject 2 g into the | 1 each | 0 | 01/04/20 | | | (ROCEPHIN) IVPB | vein Daily for 27 | | | 20 | 0 | | (custom dose) 2 | days. Indications: | | | | | | gIndications: | Bacteria in the | | | | | | Bacteremia, | Blood, endocarditis | | | | | | endocarditis | | | | | | + + + +---------+ + + | ferrous sulfate | Take 1 tablet by | 60 | 1 | 12/30/19 | | | 325 mg tablet | mouth 2 times daily | tablet | | 20 | | | | (with breakfast & | | | | | | | dinner). | | | | | + + + +---------+ + + | lisinopril | Take 1 tablet by | 30 | 1 | 12/30/19 | | | (PRINIVIL,ZESTRIL) | mouth Daily. | tablet | | 20 | | | 2.5 MG tablet | | | | | | + + + +---------+ + + | oxyCODONE | Take 1 tablet by | 30 | 0 | 12/30/19 | | | (ROXICODONE) 5 mg | mouth every 6 hours | tablet | | 20 | | | tablet | as needed for Pain. | | | | | + + + +---------+ + + | warfarin | Take 1 tablet by | 30 | 1 | 12/30/19 | | | (COUMADIN) 3 MG | mouth Daily. | tablet | | 20 | | | tablet | | | | | | + + + +---------+ + + | cefTRIAXone | Inject 50 mLs into | 400 mL | 0 | 12/30/19 | | | (ROCEPHIN) 40 MG/ML | the vein every 12 | | | 20 | 0 | | IVPBIndications: | hours for 4 days. | | | | | | Bacteremia | Indications: | | | | | | | Bacteria in the | | | | | | | Blood | | | | | + + + +---------+ + + documented as of this encounter Progress Notes Jannette Solis RN - 12/31/2019 9:53 AM PDTReviewed discharge education with patient. Pt left with IV ABX and belongings. Left in private vehicle with daughter. Jannette Solis, RN Jannette Esparza RN - 12/30/2019 6:27 PM PDTVS stable. Pt staying another night d/t IV ABX not arriving at pt's home. Pt's daughter and at bedside for IV infusion teaching and discharge educati on. All questions answered. AVS reviewed and discharge time set for 1000 tomorrow, pt and destiny luque voiced understanding. Jannette Solis RN hrah, Pilar Aaron RN - 12/30/2019 12:10 PM [facility]30 after 0900 dose. 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 Delivery of medication and supplies to [facility] by 900 12/30 for 2100 dose at home. Patient will need to re ceive his 0900 dose inpatient 12/30 prior to discharge. [facility] will follow patie nt weekly for picc line dressing changes, labs as ordered as well as providing nursing suppo rt as needed. Thank you. Pilar Gonzalez RN [phone] CM: patient will need to discharge in the am (its an hour drive) to make it to his [address] appt in [place] (per ). Electronically signed by Pilar Gonzalez RN at 2019 12:16 PM PDTMaddi Dwyer MD - 12/30/2019 8:19 AM PDTFormatting of this note joi ht be different from the original. [facility] Service: Infectious Disease Progress Note Hospital Day: LOS: 15 days Post-Op Day: 7 Days Post-Op SUBJECTIVE Patient Summary: RE: Endocarditis Chart reviewed. From Dr. Tejeda's note: 69 y.o. male transferred from 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 He had no significant medical history prior to his rece nt admissions. He reportsapproximately 4 months of weakness/fatigue, intermittent fevers, and weight loss of 35-40 pounds.Denieschest pain/pressure. He reported dyspnea on ex ertion with occasional cough, no orthopnea, PND or lower extremity edema. He noted occasio naldizziness but no lightheadedness/syncope. [facility] with those complaints.Laborato ry evaluation was significant for elevated CRP of 80, elevated procalcitonin of 0.68, decrea sed TSH 0.46, and hemoglobin A1c 6.2%. Also duringthe course of evaluation he was found to have a mild troponin elevation, peak 0.08. ECGs reviewed, initial ECGwas concerning f or possible inferior infarct, ST-T abnormalities whichresolved on follow-up ECGs. An ech ocardiogram showed preserved LV systolic function, diastolic dysfunction, severe eccentric M R, mild TR. Furtherevaluation with stress test was recommended, however he declined to d o it and was discharged. He then presented to [facility] 12/15/2019 with altered mental status and fever to 104F.He was found to have multiple laboratory abnormalities includingelevated white blood cell countwith bandemia, anemia with hemoglobin 8.3 (was 1 1.7on 10/31/19), lactic acidosis, blood cultures [id number] withgram-positive cocci in chains, identified as S. mitis. Chest x-ray was normal with the exception of mild cardiome unruly. CT scan of the abdomen pelvis demonstrated low-density lesion in the spleen (with 2 satellite lesions disease, low-density lesion in the right lobe of the liver, and lesion in the left kidney. He wasalso tachycardic,initialECG showed a regular narrow complex t achycardia, rate 167 bpm withpossible inferior infarct andnonspecific ST-T abnormalities , likely PSVT.He had palpitations with it. He was reportedly given diltiazem with decrease in his heart rate and follow-up ECG demonstratedNSR with a rate of 97, short MN andPACs .A repeat echo at [facility] showed preserved LV systolic function with a largemobilevegeta tion attached to the posterior leaflet of the mitral valve with severe eccentric anterior MR .There isalso a small ASD with mild ypxc-me-wlssp atrial shunting, as well as mild TR with moderate pulmonary hypertension, confirmed on ARNOLDO. He had no significant CAD on cardia c cath.. ID is following, and he is on antibiotics, awaiting surgical MVR. He had a comple te dental extraction Sunday. He underwent MVR surgery 12/24/19 with a 29 mm Saint Jose R Epic bioprosthetic valve. Follow ing this, in ICU, he had a prolonged gran mal seizure, responded to IV ativan. Brain CT kyra wed no new changes. 12/26: PICC placed, R IJ central line d/c'd Events Overnight: No further issues. Mental status has been stable and he has been working with physical therapy. Respiratory status is stable. Patient denies chest pain cur rently. No diarrhea. No pruritus or new skin rash. No issues with PICC. Discharge planning is ongoing. Scheduled Medications acetaminophen 1,000 mg Oral Q8H ascorbic acid 500 mg Oral Daily atorvaSTATin 40 mg Oral Nightly cefTRIAXone 2 g Intravenous Q12H ferrous sulfate 325 mg Oral BID WC furosemide 40 mg Intravenous BID ( and ) heparin 5,000 Units Subcutaneous Q8H insulin lispro 0-18 Units Subcutaneous 4x Daily WC and HS levETIRAcetam 500 mg Intravenous Q12H lisinopril 2.5 mg Oral Daily magnesium hydroxide 30 mL Oral Nightly magnesium sulfate 2 g Intravenous Once potassium chloride 20 mEq Oral BID warfarin 2 mg Oral Daily - Warfarin Continuous Infusions dextrose 10% PRN Medications albuterol, aspirin, bisacodyl, Hypoglycemia Management AND POCT Glucose AND dextros e AND dextrose 10%, gadobutrol, hydrALAZINE, HYDROmorphone, HYDROmorphone, LORazepam, me latonin, menthol throat lozenges, oxyCODONE, phenol, polyethylene glycol OBJECTIVE Physical Exam Vital signs have been reviewed General: Not in acute physical distress HEENT: Normocephalic. Anicteric sclera. No conjunctival petechiae. Notable pallor noted. No visible oral labial lesions. Supple neck Dressings intact over sternal wound. Lungs: No rales, wheezes rhonchi noted Cardiovascular: Normal rate. Regular rhythm. No murmur. Abdomen: No distention. Soft. No tenderness, rebound or guarding Skin: No rash PICC at left upper extremity no inflammation Neurologic: Oriented x3. Moves all extremities. No tremors Psychiatric: Cooperative for the clinical evaluation DATA Recent Labs Lab 12/30/19 0450 12/29/19 0536 12/28/19 0339 WBC 8.39 7.35 9.94 HGB 9.1* 8.3* 8.7* HCT 29.4* 26.4* 27.8* PLT 308 271 272 MONOPCT 10.40 10.70 8.20 Recent Labs Lab 12/30/19 0450 12/29/19 0536 12/28/19 0339 NA 137 139 138 K 3.9 4.0 4.0 CL 102 108 106 CO2 26 25 26 BUN 11 13 15 CALCIUM 8.4* 8.2* 8.2* Phosphorus: No results found for: PHOS No results for input(s): LABALBU in the last 168 hours. Recent Labs Lab 12/30/19 0450 12/29/19 0536 12/28/19 0339 MG 1.7 1.8 2.1 No results for input(s): AMYLASE in the last 168 hours. Recent Labs Lab 12/24/19 1756 12/24/19 1522 12/24/19 1331 PHART 7.341* 7.382 7.330* PO2ART 160* 153* 230* HET0UPE 40 33* 43 [id number] 99* 99* 100* Recent Labs Lab 12/30/19 0450 12/29/19 0536 12/28/19 1129 12/24/19 1328 INR 1.7 1.1 1.1 1.3 PTT -- -- -- 32 Microbiology and Radiology Data reviewed PROBLEM LIST Principal Problem: Status post mitral valve replacement Active Problems: Acute bacterial endocarditis Diet-controlled diabetes mellitus Severe protein-calorie malnutrition Infectious endocarditis Endocarditis of mitral valve DUNIA (acute kidney injury) Mitral valve replaced ASSESSMENT & PLAN 1.Subacute mitral valve endocarditis -Found to have large vegetation on mitral valve withsevereeccentric regurgitation. -Bacteremia cleared with negative blood cultures on 12/15 -S/p MVR with bioprosthetic valve on 12/23 -Patient will be covered withintravenous ceftriaxone 2 g every 12 hours until 01/03/20, then changed to daily dosing to complete the endocarditis treatment -PICC placed 2. Streptococcusviridans bacteremia. Antibiotics as above. 3. Splenic infarcts/emboli on CT Abdominal exam benign 4. Possible kidney hematogenous seeding per CT.findings 5. Very poor dentition.S/p teeth extraction. 6. Bilateral septic emboli to brain. Currently asymptomatic There was report of microhemorrhage. 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 Patient has be en advised to contact the ID clinic if any symptoms of antibiotic side effects ensue or if a ny concerns/questions regarding infection arise. ID clinic follow up: in 2 weeks Case discussed with Keaton Ernandez PA-C and Case Management 35 mins spent for clinical encounter including coordination of discharge care Code Status: Full Code Maddi Dwyer MD 12/31/2019 hika Ernandez PA - 12/30/2019 8:15 AM PDTFormatting of this note might be different from the [facility] Service: Cardiothoracic Surgery Progress Note ROOM: [address] [place] [address] Hospital Day: LOS: 14 days Post-Op Day: 6 Days Post-Op Surgery/Procedure: Mitral valve replacement with a 29 mm Saint JudeEpic bioprosthetic johnny ve Exploration of aortic valve SUBJECTIVE Events Overnight: Stable night, SR, RA. Ready to go home UOP: 1.3L/24hs CT Output: out OBJECTIVE Vital Signs: BP 115/56 | Pulse 79 | Temp 36.5 C (97.7 F) (Oral) | Resp 18 | Ht 1.651 m (5' 5") | Wt 60.1 kg (132 lb 7.9 oz) | SpO2 100% | BMI 22.05 kg/m Current weight: Patient Vitals for the past 96 hrs: Weight 12/30/19 0500 60.1 kg (132 lb 7.9 oz) 12/29/19 0610 64.7 kg (142 lb 10.2 oz) 12/28/19 0600 65.3 kg (143 lb 15.4 oz) 12/27/19 0500 66.8 kg (147 lb 4.3 oz) Admission weight: Weight: 59 kg (130 lb 1.1 oz) Physical Exam: General: Alert, oriented, in no acute distress, resting in bed Heart: RRR No murmur Lungs: CTA b/l Dim bases. Abdomen: Soft, nondistended, nontender Extremities: Well perfused, +1 LE edema Musculoskeletal: no deformities or significant abnormalities Neurological: No gross focal motor or sensory deficits Skin: No rash or lesions. Mid-sternal incision dressing is C/D/I. Chest tube removed inci daniel C/D/I. Pacing wires removed EVH incisions C/D/I. DATA: Scheduled Medications acetaminophen 1,000 mg Oral Q8H ascorbic acid 500 mg Oral Daily atorvaSTATin 40 mg Oral Nightly cefTRIAXone 2 g Intravenous Q12H ferrous sulfate 325 mg Oral BID WC furosemide 40 mg Intravenous BID (8 and 16) heparin 5,000 Units Subcutaneous Q8H insulin lispro 0-18 Units Subcutaneous 4x Daily WC and HS levETIRAcetam 500 mg Intravenous Q12H lisinopril 2.5 mg Oral Daily magnesium hydroxide 30 mL Oral Nightly potassium chloride 20 mEq Oral BID warfarin 5 mg Oral Daily - Warfarin Continuous Infusions dextrose 10% PRN Medications albuterol, aspirin, bisacodyl, Hypoglycemia Management AND POCT Glucose AND dextros e AND dextrose 10%, gadobutrol, hydrALAZINE, HYDROmorphone, HYDROmorphone, LORazepam, me latonin, menthol throat lozenges, oxyCODONE, phenol, polyethylene glycol HOME MEDS: Prior to Admission medications Medication Sig Start Date End Date Taking? Authorizing Provider aspirin (ASPIRIN ADULT LOW STRENGTH) 81 MG EC tablet Take 1 tablet (81 mg total) by mouth D ken 11/01/19 Denzel Pryor MD LABS: Recent Labs Lab 12/30/190 12/29/19 0536 12/28/19 0339 WBC 8.39 7.35 9.94 HGB 9.1* 8.3* 8.7* HCT 29.4* 26.4* 27.8* PLT 308 271 272 MONOPCT 10.40 10.70 8.20 Recent Labs Lab 12/30/190 12/29/19 0536 12/28/19 0339 NA 137 139 138 K 3.9 4.0 4.0 CL 102 108 106 CO2 26 25 26 BUN 11 13 15 CALCIUM 8.4* 8.2* 8.2* Phosphorus: No results found for: PHOS No results for input(s): LABALBU in the last 168 hours. Recent Labs Lab 12/30/19 0450 12/29/19 0536 12/28/19 0339 MG 1.7 1.8 2.1 No results for input(s): AMYLASE in the last 168 hours. Recent Labs Lab 12/24/19 1756 12/24/19 1522 12/24/19 1331 PHART 7.341* 7.382 7.330* PO2ART 160* 153* 230* UAP8MOY 40 33* 43 [id number] 99* 99* 100* Recent Labs Lab 12/30/19 0450 12/29/19 0536 12/28/19 1129 12/24/19 1328 INR 1.7 1.1 1.1 1.3 PTT -- -- -- 32 No results for input(s): TSH in the last 168 hours. Invalid input(s): T3FREE, FREET4 No results for input(s): TROPONINT in the last 168 hours. Invalid input(s): CKTOTAL, TROPONINI, CKMBINDEX PROBLEM LIST Principal Problem: Status post mitral valve replacement Active Problems: Acute bacterial endocarditis Diet-controlled diabetes mellitus Severe protein-calorie malnutrition Infectious endocarditis Endocarditis of mitral valve DUNIA (acute kidney injury) Mitral valve replaced ASSESSMENT & PLAN Endocarditis -- Rocephin BID till 01/02 then to daily till per Dr Real figueroa ID. S/P MVR -- Continue Coumadin for MVR, INR 1.1 today -- Start ASA. -- Diuresis again today Junctional rhythm -- SR with 1st degree AV block, f/u with Cardiology outpatient -- Appreciate consult from Dr Mckeon HTN -- lisinopril PO today. Code Status: Full Code LEA Cavanaugh 12/30/2019 Sheila Nicholson M A, CCC-CHROMOSOMAL DISORDERS COUNSELOR - 12/29/2019 2:53 PM PDTMISSED THERAPY VISIT Speech Therapy attempted to see the following patient today: Reilly Hamm Missed Visit (patient unavailable) - working with OT. SHEILA PILLAI MA, CCC-CHROMOSOMAL DISORDERS COUNSELOR 12/29/2019 hafer, Pilar Aaron RN - 12/29/2019 2:34 PM PDTProv[facility] received [facility]. W ill investigate benefits. Thank you. Pilar Gonzalez RN [phone] 1640: [facility] Liaison spoke with patient's , she is agreeable to services. Willing and able to learn. CM attempting to get HH on board, so I will hold on initiating nu rsing portion. After orders received I will coordinate delivery of medication and supplies t o support discharge plan. Maddi Farah MD - 12/29/2019 8:55 AM PDTFormatting of this note might be differe nt from the original. [facility] Service: Infectious Disease Progress Note Hospital Day: LOS: 13 days Post-Op Day: 5 Days Post-Op SUBJECTIVE Patient Summary: RE: Endocarditis Chart reviewed. From Dr. Tejeda's note: 69 y.o. male transferred from 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 He had no significant medical history prior to his rece nt admissions. He reportsapproximately 4 months of weakness/fatigue, intermittent fevers, and weight loss of 35-40 pounds.Denieschest pain/pressure. He reported dyspnea on ex ertion with occasional cough, no orthopnea, PND or lower extremity edema. He noted occasio naldizziness but no lightheadedness/syncope. He [facility] with those complaints.Laborato ry evaluation was significant for elevated CRP of 80, elevated procalcitonin of 0.68, decrea sed TSH 0.46, and hemoglobin A1c 6.2%. Also duringthe course of evaluation he was found to have a mild troponin elevation, peak 0.08. ECGs reviewed, initial ECGwas concerning f or possible inferior infarct, ST-T abnormalities whichresolved on follow-up ECGs. An ech ocardiogram showed preserved LV systolic function, diastolic dysfunction, severe eccentric M R, mild TR. Furtherevaluation with stress test was recommended, however he declined to d o it and was discharged. He then presented to [facility] 12/15/2019 with altered mental status and fever to 104F.He was found to have multiple laboratory abnormalities includingelevated white blood cell countwith bandemia, anemia with hemoglobin 8.3 (was 1 1.7on 10/31/19), lactic acidosis, blood cultures [id number] withgram-positive cocci in chains, identified as S. mitis. Chest x-ray was normal with the exception of mild cardiome unruly. CT scan of the abdomen pelvis demonstrated low-density lesion in the spleen (with 2 satellite lesions disease, low-density lesion in the right lobe of the liver, and lesion in the left kidney. He wasalso tachycardic,initialECG showed a regular narrow complex t achycardia, rate 167 bpm withpossible inferior infarct andnonspecific ST-T abnormalities , likely PSVT.He had palpitations with it. He was reportedly given diltiazem with decrease in his heart rate and follow-up ECG demonstratedNSR with a rate of 97, short MN andPACs .A repeat echo at [facility] showed preserved LV systolic function with a largemobilevegeta tion attached to the posterior leaflet of the mitral valve with severe eccentric anterior MR .There isalso a small ASD with mild pejx-jx-dhedt atrial shunting, as well as mild TR with moderate pulmonary hypertension, confirmed on ARNOLDO. He had no significant CAD on cardia c cath.. ID is following, and he is on antibiotics, awaiting surgical MVR. He had a comple te dental extraction Sunday. He underwent MVR surgery 12/24/19 with a 29 mm Saint Jose R Epic bioprosthetic valve. Follow ing this, in ICU, he had a prolonged gran mal seizure, responded to IV ativan. Brain CT kyra wed no new changes. 12/26: PICC placed, R IJ central line d/c'd Events Overnight: Afebrile. No acute issues reported overnight. Maintaining oxygen saturation on room air. Undergoing diuresis. Scheduled Medications acetaminophen 1,000 mg Oral Q8H ascorbic acid 500 mg Oral Daily atorvaSTATin 40 mg Oral Nightly cefTRIAXone 2 g Intravenous Q12H ferrous sulfate 325 mg Oral BID WC furosemide 40 mg Intravenous BID (8 and 16) heparin 5,000 Units Subcutaneous Q8H insulin lispro 0-18 Units Subcutaneous 4x Daily WC and HS levETIRAcetam 500 mg Intravenous Q12H lisinopril 2.5 mg Oral Daily magnesium hydroxide 30 mL Oral Nightly potassium chloride 20 mEq Oral BID warfarin 5 mg Oral Daily - Warfarin Continuous Infusions dextrose 10% PRN Medications albuterol, aspirin, bisacodyl, Hypoglycemia Management AND POCT Glucose AND dextros e AND dextrose 10%, gadobutrol, hydrALAZINE, HYDROmorphone, HYDROmorphone, LORazepam, me latonin, menthol throat lozenges, oxyCODONE, phenol, polyethylene glycol OBJECTIVE Vital Signs: Vitals: 12/29/19 0747 BP: 134/61 Pulse: 60 Resp: 18 Temp: 36.7 C (98.1 F) Physical Exam Vital signs have been reviewed General: Not in acute physical distress HEENT: Normocephalic. Anicteric sclera. No conjunctival petechiae. Notable pallor noted. No visible oral labial lesions. Supple neck Dressings intact over sternal wound. Lungs: No rales, wheezes rhonchi noted Cardiovascular: Normal rate. Regular rhythm. No murmur. Chest tube and pacer wires have been removed. Abdomen: No distention. Soft. No tenderness, rebound or guarding Skin: No rash PICC at left upper extremity no inflammation Neurologic: Oriented x3. Moves all extremities. No tremors Psychiatric: Cooperative for the clinical evaluation DATA Recent Results (from the past 24 hour(s)) ECG 12 lead Collection Time: 12/28/19 10:19 AM Result Value Ref Range VENTRICULAR RATE EKG 66 BPM ATRIAL RATE 66 BPM P-R INTERVAL 322 ms QRS DURATION 80 ms Q-T INTERVAL 558 ms Q-T INTERVAL (CORRECTED) 584 ms QRS AXIS -16 degrees T AXIS -167 degrees INTERPRETATION TEXT Sinus rhythm with 1st degree A-V block ST & Marked T wave abnormality, consider anterolateral ischemia Prolonged QT Abnormal ECG When compared with ECG of 26-DEC-2019 08:00, No significant change was found Confirmed by EARNESTINE GARZA MD ([id number]) on 12/28/2019 4:12:49 PM POC Glucose Collection Time: 12/28/19 11:28 AM Result Value Ref Range Glucose, POC 100 (H) 65 - 99 mg/dL Protime INR Collection Time: 12/28/19 11:29 AM Result Value Ref Range INR 1.1 POC Glucose Collection Time: 12/28/19 4:24 PM Result Value Ref Range Glucose, POC 114 (H) 65 - 99 mg/dL POC Glucose Collection Time: 12/28/19 9:18 PM Result Value Ref Range Glucose, POC 94 65 - 99 mg/dL Basic Metabolic Panel Collection Time: 12/29/19 5:36 AM Result Value Ref Range Na 139 135 - 145 mmol/L K 4.0 3.5 - 4.9 mmol/L Cl 108 99 - 109 mmol/L CO2 25 23 - 32 mmol/L Anion Gap 10 5 - 20 mmol/L Glucose 95 65 - 99 mg/dL BUN 13 8 - 25 mg/dL Creatinine 0.81 0.70 - 1.30 mg/dL BUN/Creatinine Ratio 16 Calcium 8.2 (L) 8.5 - 10.5 mg/dL Estimated GFR >60 >60 mL/min/1.73m2 CBC with Differential Collection Time: 12/29/19 5:36 AM Result Value Ref Range WBC 7.35 3.80 - 11.00 K/uL Red Blood Cells 2.94 (L) 4.20 - 5.70 M/uL Hemoglobin 8.3 (L) 13.2 - 17.0 g/dL Hematocrit 26.4 (L) 39.0 - 50.0 % MCV 89.8 80.0 - 100.0 fl MCH 28.2 27.0 - 34.0 pg MCHC 31.4 (L) 32.0 - 35.5 g/dL RDW-SD 56.1 (H) 37 - 53 fl Platelet Count 271 150 - 400 K/uL MPV 9.8 fl Diff Type AUTOMATED % nRBC 0.0 0 /100WBC % Neutrophils 69.70 % IMMATURE GRANULOCYTE 0.40 % % Lymphocytes 18.10 % Monocyte % 10.70 % Eosinophils % 0.70 % Basophils % 0.40 % Neutrophils, Absolute 5.12 1.90 - 7.40 K/uL IMMATURE GRANS AB 0.03 0.00 - 0.07 K/uL Absolute Lymphocytes 1.33 1.00 - 3.90 K/uL Absolute Monocytes 0.79 0.00 - 0.80 K/uL Eosinophils, Absolute 0.05 0.00 - 0.50 K/uL Basophils, Absolute 0.03 0.00 - 0.10 K/uL Magnesium Collection Time: 12/29/19 5:36 AM Result Value Ref Range Magnesium 1.8 1.7 - 2.4 mg/dL Protime INR Collection Time: 12/29/19 5:36 AM Result Value Ref Range INR 1.1 ECG 12 lead Collection Time: 12/29/19 8:21 AM Result Value Ref Range INTERPRETATION TEXT Not Confirmed Microbiology and radiology data reviewed PROBLEM LIST Principal Problem: Status post mitral valve replacement Active Problems: Acute bacterial endocarditis Diet-controlled diabetes mellitus Severe protein-calorie malnutrition Infectious endocarditis Endocarditis of mitral valve DUNIA (acute kidney injury) Mitral valve replaced ASSESSMENT & PLAN 1.Subacute mitral valve endocarditis -Found to have large vegetation on mitral valve withsevereeccentric regurgitation. -Bacteremia cleared with negative blood cultures on 12/15 -S/p MVR with bioprosthetic valve on 12/23 -Patient will be covered withintravenous ceftriaxone 2 g every 12 hours until 01/03/20, then changed to daily dosing to complete the endocarditis treatment for 4 more weeks -PICC placed 2. Streptococcusviridans bacteremia. Antibiotics as above. 3. Splenic infarcts/emboli on CT Abdominal exam benign 4. Possible kidney hematogenous seeding per CT.findings 5. Very poor dentition.S/p teeth extraction. 6. Bilateral septic emboli to brain. Currently asymptomatic There was report of microhemorrhage. 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 On RA. UOP: 1375/24hs CT Output: out OBJECTIVE Vital Signs: BP 164/71 | Pulse 59 | Temp 36.5 C (97.7 F) (Oral) | Resp 16 | Ht 1.651 m (5' 5") | Wt 64.7 kg (142 lb 10.2 oz) | SpO2 97% | BMI 23.74 kg/m Current weight: Patient Vitals for the past 96 hrs: Weight 12/29/19 0610 64.7 kg (142 lb 10.2 oz) 12/28/19 0600 65.3 kg (143 lb 15.4 oz) 12/27/19 0500 66.8 kg (147 lb 4.3 oz) 12/26/19 0400 67.6 kg (149 lb 0.5 oz) 12/25/19 1200 63 kg (138 lb 14.2 oz) Admission weight: Weight: 59 kg (130 lb 1.1 oz) Physical Exam: General: Alert, oriented, in no acute distress, resting in bed Heart: RRR No murmur Lungs: CTA b/l Dim bases. Abdomen: Soft, nondistended, nontender Extremities: Well perfused, +1 LE edema Musculoskeletal: no deformities or significant abnormalities Neurological: No gross focal motor or sensory deficits Skin: No rash or lesions. Mid-sternal incision dressing is C/D/I. Chest tube removed inci daniel C/D/I. Pacing wires removed EVH incisions C/D/I. DATA: Scheduled Medications acetaminophen 1,000 mg Oral Q8H ascorbic acid 500 mg Oral Daily atorvaSTATin 40 mg Oral Nightly cefTRIAXone 2 g Intravenous Q12H ferrous sulfate 325 mg Oral BID WC heparin 5,000 Units Subcutaneous Q8H insulin lispro 0-18 Units Subcutaneous 4x Daily WC and HS levETIRAcetam 500 mg Intravenous Q12H lisinopril 2.5 mg Oral Daily magnesium hydroxide 30 mL Oral Nightly warfarin 5 mg Oral Daily - Warfarin Continuous Infusions dextrose 10% PRN Medications albuterol, aspirin, bisacodyl, Hypoglycemia Management AND POCT Glucose AND dextros e AND dextrose 10%, gadobutrol, hydrALAZINE, HYDROmorphone, HYDROmorphone, LORazepam, me latonin, menthol throat lozenges, oxyCODONE, phenol, polyethylene glycol HOME MEDS: Prior to Admission medications Medication Sig Start Date End Date Taking? Authorizing Provider aspirin (ASPIRIN ADULT LOW STRENGTH) 81 MG EC tablet Take 1 tablet (81 mg total) by mouth D ken 11/01/19 Denzel Pryor MD LABS: Recent Labs Lab 12/29/19 0536 12/28/19 0339 12/27/19 0358 WBC 7.35 9.94 12.04* HGB 8.3* 8.7* 7.9* HCT 26.4* 27.8* 25.3* PLT 271 272 211 MONOPCT 10.70 8.20 9.10 Recent Labs Lab 12/29/19 0536 12/28/19 0339 12/27/19 1239 12/27/19 0358 NA 139 138 -- 137 K 4.0 4.0 4.4 3.5 CL 108 106 -- 105 CO2 25 26 -- 25 BUN 13 15 -- 14 CALCIUM 8.2* 8.2* -- 8.0* Phosphorus: No results found for: PHOS No results for input(s): LABALBU in the last 168 hours. Recent Labs Lab 12/29/19 0536 12/28/19 0339 12/27/19 0358 MG 1.8 2.1 2.2 No results for input(s): AMYLASE in the last 168 hours. Recent Labs Lab 12/24/19 1756 12/24/19 1522 12/24/19 1331 PHART 7.341* 7.382 7.330* PO2ART 160* 153* 230* QLJ2NCV 40 33* 43 Q1PGEXQI 99* 99* 100* Recent Labs Lab 12/29/19 0536 12/28/19 1129 12/24/19 1328 INR 1.1 1.1 1.3 PTT -- -- 32 No results for input(s): TSH in the last 168 hours. Invalid input(s): T3FREE, FREET4 No results for input(s): TROPONINT in the last 168 hours. Invalid input(s): CKTOTAL, TROPONINI, CKMBINDEX PROBLEM LIST Principal Problem: Status post mitral valve replacement Active Problems: Acute bacterial endocarditis Diet-controlled diabetes mellitus Severe protein-calorie malnutrition Infectious endocarditis Endocarditis of mitral valve DUNIA (acute kidney injury) Mitral valve replaced ASSESSMENT & PLAN Endocarditis -- Rocephin BID till 01/02 then to daily till per Dr Real figueroa ID. S/P MVR -- Continue Coumadin for MVR, INR 1.1 today -- Start ASA. -- Diuresis again today Junctional rhythm -- NO BBLOCKERS till back in steady NSR -- Check 12 lead ekg again today HTN -- lisinopril PO today. Code Status: Full Code LEA Cavanaugh 12/29/2019 ver, Nj Figueroa RN - 6:53 PM PDTA/O, forgetful at times, calm and cooperative, transfer from ICU today, plan for MRI now that pacer wires are removed ([id number]), tolerating diet, no N/V, denies pain, afebrile, sutures in mouth intact, would like to visit tomorrow Electronically signed by: Nj Curtis RN 12/28/2019 6:54 PM PDT hit Singh Phar mD - 12/28/2019 5:54 PM PDT Warfarin Dosing Per Pharmacy Pharmacy consulted to dose warfarin per: LEA Denis INDICATION: Bioprosthetic mitral valve GOAL INR: 2-3 OTHER ANTICOAGULATION: Heparin subcutaneous DRUG INTERACTIONS: Ceftriaxone, acetaminophen, heparin, ASA PATIENT DIET: General; puree, thin liquids. Eating 75-100% of meals. BLEED RISK: Concurrent drugs can increase bleed risk along with recent surgery. Recent Labs Lab 12/28/19 1129 12/28/19 0339 12/27/19 0358 12/26/19 0315 12/24/19 1328 12/23/19 0840 HGB -- 8.7* 7.9* 8.6* < > 10.8* < > -- PLT -- 272 211 159 < > 178 < > -- INR 1.1 -- -- -- -- 1.3 -- 1.1 < > = values in this interval not displayed. DATE 12/27 INR 1.1 Warfarin Dose Planned- 2.5 mg Assessment: The INR is at baseline of 1.1. Initiating the recommended warfarin nomogram dose of 2.5 mg due to patient's age, weight, r ecent surgery and concurrent medications. Heparin ordered for DVT prophylaxis until patient's INR is therapeutic per provider. Plan: Warfarin 2.5 mg po today INR in am Monitor for ability to discontinue heparin Pharmacy will continue to follow and modify therapy as indicated. Whit Singh, PharmD 5:27 PM PDT 12/28/2019 egan Montenegro, RD - 12/28/2019 11:22 AM PDTFormatting of this note might be different from the willie ginal. NUTRITION NOTE Summary High Risk Follow Up Fluid/Beverage Intake Oral Fluids Amount: Ad jewel Food Intake Type of Food/Meals: General, Dysphagia Puree, 1 DMA item per tray Amount of Food: 75-100% of meals over the last 2 days, on average 92% of 3 meals recorded. Pt reports he ate ~50% of bowl of cream of wheat this morning. Nourishments: Agreeable to receiving chocolate Magic Cup. Declined offer for Ensure/Boost d ue to these products containing canola oil which pt does not tolerate (vomiting, heartburn, diarrhea). Nutritionally Relevant Medications Reviewed Nutrition-Focused Physical Findings Extremities, Muscles and Bones: +1 BUE and +1 dependent edema Digestive System (Mouth to Rectum): CHROMOSOMAL DISORDERS COUNSELOR following; BM on 12/26; missing teeth Nerves and Cognition: Flat Affect Skin: bilateral chest incision Anthropometrics Current Weight: 65.3 kg, gain of 6.3 kg from admit. Per I/Os pt is 122 mL fluid positive. Monitor trend. Biochemical Data, Medical Test, and Procedures Recent Labs 12/28/19 0339 NA 138 K 4.0 GLU 99 BUN 15 CREA 0.79 MG 2.1 Estimated Energy Needs 1770 - 2065 octavio/day, 30 - 35 kcal/kg/admit wt 59 kg Estimated Protein Needs 71 - 86 g protein/day, 1.2 - 1.5 g pro/kg/admit wt 59 kg Nutrition Diagnosis severe PEM related to inability to consume sufficient PO as evidenced by illness, pt reports decreased appetite x 4 months, intake < 75% EER x 4 months, severe wt loss, severe m uscle loss. Recommendations General Diet with consistencies per CHROMOSOMAL DISORDERS COUNSELOR recommendations Chocolate Magic Cup BID at snack times Encourage intake of nutrient-dense, protein-rich food choices, as tolerated Consider appetite stimulant, as indicated Monitor diet tolerance, adequacy of intake, weight trend, labs, hydration status, and stool ing patterns. Nutritional Risk and Follow-Up Level of Risk: Moderate-High Required Follow Up: 4 days(; 12/31) Megan Cardona MS-MPH, RDN 12/28/2019 11:22 AM PDT aneu, LEA Daniel - 12/28/2019 7:44 AM PDTFormatting of this note might be different from [place]. [facility] Service: Cardiothoracic Surgery Progress Note ROOM: [address] [place] [address] Hospital Day: LOS: 12 days Post-Op Day: 4 Days Post-Op Surgery/Procedure: Mitral valve replacement with a 29 mm Saint JudeEpic bioprosthetic johnny ve Exploration of aortic valve SUBJECTIVE Events Overnight: Documented that back in NSR, but appeats jxn this morning. Rate 60-7 0. Better night no more hallucinations. Still a bit impulsive. [facility] UOP: 1375/24hs CT Output: out OBJECTIVE Vital Signs: BP 159/68 | Pulse 60 | Temp 36.7 C (98.1 F) (Oral) | Resp 20 | Ht 1.651 m (5' 5") | Wt 65.3 kg (143 lb 15.4 oz) | SpO2 97% | BMI 23.96 kg/m Current weight: Patient Vitals for the past 96 hrs: Weight 12/28/19 0600 65.3 kg (143 lb 15.4 oz) 12/27/19 0500 66.8 kg (147 lb 4.3 oz) 12/26/19 0400 67.6 kg (149 lb 0.5 oz) 12/25/19 1200 63 kg (138 lb 14.2 oz) Admission weight: Weight: 59 kg (130 lb 1.1 oz) Physical Exam: General: Alert, oriented, in no acute distress, resting in bed getting pic line Heart: RRR No murmur Lungs: CTA b/l Dim bases. Abdomen: Soft, nondistended, nontender Extremities: Well perfused, +1 LE edema Musculoskeletal: no deformities or significant abnormalities Neurological: No gross focal motor or sensory deficits Skin: No rash or lesions. Mid-sternal incision dressing is C/D/I. Chest tube present inci daniel C/D/I. Pacing wires removed EVH incisions C/D/I. DATA: Scheduled Medications acetaminophen 1,000 mg Oral Q8H atorvaSTATin 40 mg Oral Nightly cefTRIAXone 2 g Intravenous Q12H heparin 5,000 Units Subcutaneous Q8H insulin lispro 0-18 Units Subcutaneous 4x Daily WC and HS levETIRAcetam 500 mg Intravenous Q12H magnesium hydroxide 30 mL Oral Nightly Continuous Infusions dextrose 10% niCARdipine Stopped (12/27/19 1000) PRN Medications albumin, albuterol, aspirin, bisacodyl, calcium gluconate IVPB, Hypoglycemia Management A ND POCT Glucose AND dextrose AND dextrose 10%, hydrALAZINE, HYDROmorphone, HYDROmo rphone, LORazepam, Magnesium replacement - ICU AND magnesium sulfate AND magnesium s ulfate, melatonin, menthol throat lozenges, meperidine, oxyCODONE, phenol, polyethylene glyc ol, Potassium replacement - ICU AND potassium chloride AND potassium chloride AND* * potassium chloride, Phosphate Replacement - ICU AND sodium phosphate IVPB AND sodi um phosphate IVPB HOME MEDS: Prior to Admission medications Medication Sig Start Date End Date Taking? Authorizing Provider aspirin (ASPIRIN ADULT LOW STRENGTH) 81 MG EC tablet Take 1 tablet (81 mg total) by mouth Viv rogers 11/01/19 Denzel Pryor MD LABS: Recent Labs Lab 12/28/19 0339 12/27/19 0358 12/26/19 031 WBC 9.94 12.04* 11.09* HGB 8.7* 7.9* 8.6* HCT 27.8* 25.3* 27.3* PLT 272 211 159 MONOPCT 8.20 9.10 6.90 Recent Labs Lab 12/28/19 0339 12/27/19 1239 12/27/19 0358 12/26/19 0315 NA 138 -- 137 137 K 4.0 4.4 3.5 4.8 CL 106 -- 105 110* CO2 26 -- 25 21* BUN 15 -- 14 15 CALCIUM 8.2* -- 8.0* 7.8* Phosphorus: No results found for: PHOS No results for input(s): LABALBU in the last 168 hours. Recent Labs Lab 12/28/19 0339 12/27/19 0358 12/26/19 0315 MG 2.1 2.2 2.3 No results for input(s): AMYLASE in the last 168 hours. Recent Labs Lab 12/24/19 1756 12/24/19 1522 12/24/19 1331 PHART 7.341* 7.382 7.330* PO2ART 160* 153* 230* EUU1UBP 40 33* 43 H2WNBHOY 99* 99* 100* Recent Labs Lab 12/24/19 1328 12/23/19 0840 INR 1.3 1.1 PTT 32 -- No results for input(s): TSH in the last 168 hours. Invalid input(s): T3FREE, FREET4 No results for input(s): TROPONINT in the last 168 hours. Invalid input(s): CKTOTAL, TROPONINI, CKMBINDEX PROBLEM LIST Principal Problem: Status post mitral valve replacement Active Problems: Acute bacterial endocarditis Diet-controlled diabetes mellitus Severe protein-calorie malnutrition Infectious endocarditis Endocarditis of mitral valve DUNIA (acute kidney injury) Mitral valve replaced ASSESSMENT & PLAN Endocarditis -- Rocephin BID till 01/02 then to daily till per Dr Noble w ID. S/P MVR -- D/C pwires today -- Coumadin for MVR -- Start ASA. -- Diuresis again today -- transfer to step down Junctional rhythm -- Not likely gonna need PPM, as rate holding and improving. -- NO BBLOCKERS till back in steady NSR -- Check 12 lead ekg now. HTN -- lisinopril PO today. Code Status: Full Code LEA Evans 12/28/2019 Associated attestation - Rashaad Elder MD - 12/28/2019 5:01 PM PDTI agree Looks much better today. Recognized me Hct better Looks like junctional rhythm on strip but rate increases with exercise so will remove wires today and start him on Coumadin for his mitral valve Off 02 and looks euvolemic Maddi Key MD - 12/28/2019 6:05 AM PDTFormatting of this note might be differe nt from the original. [facility] Service: Infectious Disease Progress Note Hospital Day: LOS: 12 days Post-Op Day: 4 Days Post-Op SUBJECTIVE Patient Summary: RE: Endocarditis Chart reviewed. From Dr. Tejeda's note: 69 y.o. male transferred from 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 He had no significant medical history prior to his rece nt admissions. He reportsapproximately 4 months of weakness/fatigue, intermittent fevers, and weight loss of 35-40 pounds.Denieschest pain/pressure. He reported dyspnea on ex ertion with occasional cough, no orthopnea, PND or lower extremity edema. He noted occasio naldizziness but no lightheadedness/syncope. [facility] those complaints.Laborato ry evaluation was significant for elevated CRP of 80, elevated procalcitonin of 0.68, decrea sed TSH 0.46, and hemoglobin A1c 6.2%. Also duringthe course of evaluation he was found to have a mild troponin elevation, peak 0.08. ECGs reviewed, initial ECGwas concerning f or possible inferior infarct, ST-T abnormalities whichresolved on follow-up ECGs. An ech ocardiogram showed preserved LV systolic function, diastolic dysfunction, severe eccentric M R, mild TR. Furtherevaluation with stress test was recommended, however he declined to d o it and was discharged. He then presented to [facility] 12/15/2019 with altered mental status and fever to 104F.He was found to have multiple laboratory abnormalities includingelevated white blood cell countwith bandemia, anemia with hemoglobin 8.3 (was 1 1.7on 10/31/19), lactic acidosis, blood cultures [id number] withgram-positive cocci in chains, identified as S. mitis. Chest x-ray was normal with the exception of mild cardiome unruly. CT scan of the abdomen pelvis demonstrated low-density lesion in the spleen (with 2 satellite lesions disease, low-density lesion in the right lobe of the liver, and lesion in the left kidney. He wasalso tachycardic,initialECG showed a regular narrow complex t achycardia, rate 167 bpm withpossible inferior infarct andnonspecific ST-T abnormalities , likely PSVT.He had palpitations with it. He was reportedly given diltiazem with decrease in his heart rate and follow-up ECG demonstratedNSR with a rate of 97, short MN andPACs .A repeat echo at [facility] showed preserved LV systolic function with a largemobilevegeta tion attached to the posterior leaflet of the mitral valve with severe eccentric anterior MR .There isalso a small ASD with mild [id number] atrial shunting, as well as mild TR with moderate pulmonary hypertension, confirmed on ARNOLDO. He had no significant CAD on cardia c cath.. ID is following, and he is on antibiotics, awaiting surgical MVR. He had a comple te dental extraction Sunday. He underwent MVR surgery 12/24/19 with a 29 mm Saint Jose R Epic bioprosthetic valve. Follow ing this, in ICU, he had a prolonged gran mal seizure, responded to IV ativan. Brain CT kyra wed no new changes. 12/26: PICC placed, R IJ central line d/c'd Events Overnight: Afebrile. More oriented. Undergoing dysphagia treatment. Worked with physical therapy yesterday with recommendation for inpatient rehabitation. Denies chest pain, dyspnea, chest pain. Reportedly had no further hallucinations. Scheduled Medications acetaminophen 1,000 mg Oral Q8H atorvaSTATin 40 mg Oral Nightly cefTRIAXone 2 g Intravenous Q12H heparin 5,000 Units Subcutaneous Q8H insulin lispro 0-18 Units Subcutaneous 4x Daily WC and HS levETIRAcetam 500 mg Intravenous Q12H magnesium hydroxide 30 mL Oral Nightly Continuous Infusions dextrose 10% niCARdipine Stopped (12/27/19 1000) PRN Medications albumin, albuterol, aspirin, bisacodyl, calcium gluconate IVPB, Hypoglycemia Management A ND POCT Glucose AND dextrose AND dextrose 10%, hydrALAZINE, HYDROmorphone, HYDROmo rphone, LORazepam, Magnesium replacement - ICU AND magnesium sulfate AND magnesium s ulfate, melatonin, menthol throat lozenges, meperidine, oxyCODONE, phenol, polyethylene glyc ol, Potassium replacement - ICU AND potassium chloride AND potassium chloride AND* * potassium chloride, Phosphate Replacement - ICU AND sodium phosphate IVPB AND sodi um phosphate IVPB OBJECTIVE Vital Signs: Vitals: 12/27/19 2351 BP: Pulse: Resp: 19 Temp: 36.8 C (98.2 F) Physical Exam Vital signs have been reviewed General: Not in acute physical distress HEENT: Normocephalic. Anicteric sclera. No conjunctival petechiae. Notable pallor noted. No visible oral labial lesions. Supple neck Dressings intact over sternal wound. Lungs: No rales, wheezes rhonchi noted Cardiovascular: Normal rate. Regular rhythm. No murmur. Chest tube noted. Abdomen: No distention. Soft. No tenderness, rebound or guarding Skin: No rash PICC at left upper extremity no inflammation Neurologic: Sleepy. Oriented x3. Moves all extremities. No tremors Psychiatric: Cooperative for the clinical evaluation DATA Recent Results (from the past 24 hour(s)) POC Glucose Collection Time: 12/27/19 9:14 AM Result Value Ref Range Glucose, POC 119 (H) 65 - 99 mg/dL POC Glucose Collection Time: 12/27/19 12:04 PM Result Value Ref Range Glucose, POC 179 (H) 65 - 99 mg/dL Potassium Collection Time: 12/27/19 12:39 PM Result Value Ref Range K 4.4 3.5 - 4.9 mmol/L POC Glucose Collection Time: 12/27/19 5:10 PM Result Value Ref Range Glucose, POC 106 (H) 65 - 99 mg/dL POC Glucose Collection Time: 12/27/19 9:44 PM Result Value Ref Range Glucose, POC 119 (H) 65 - 99 mg/dL Basic Metabolic Panel Collection Time: 12/28/19 3:39 AM Result Value Ref Range Na 138 135 - 145 mmol/L K 4.0 3.5 - 4.9 mmol/L Cl 106 99 - 109 mmol/L CO2 26 23 - 32 mmol/L Anion Gap 10 5 - 20 mmol/L Glucose 99 65 - 99 mg/dL BUN 15 8 - 25 mg/dL Creatinine 0.79 0.70 - 1.30 mg/dL BUN/Creatinine Ratio 19 Calcium 8.2 (L) 8.5 - 10.5 mg/dL Estimated GFR >60 >60 mL/min/1.73m2 CBC with Differential Collection Time: 12/28/19 3:39 AM Result Value Ref Range WBC 9.94 3.80 - 11.00 K/uL Red Blood Cells 3.15 (L) 4.20 - 5.70 M/uL Hemoglobin 8.7 (L) 13.2 - 17.0 g/dL Hematocrit 27.8 (L) 39.0 - 50.0 % MCV 88.3 80.0 - 100.0 fl MCH 27.6 27.0 - 34.0 pg MCHC 31.3 (L) 32.0 - 35.5 g/dL RDW-SD 55.3 (H) 37 - 53 fl Platelet Count 272 150 - 400 K/uL MPV 10.3 fl Diff Type AUTOMATED % nRBC 0.0 0 /100WBC % Neutrophils 77.30 % IMMATURE GRANULOCYTE 0.60 % % Lymphocytes 13.50 % Monocyte % 8.20 % Eosinophils % 0.20 % Basophils % 0.20 % Neutrophils, Absolute 7.68 (H) 1.90 - 7.40 K/uL IMMATURE GRANS AB 0.06 0.00 - 0.07 K/uL Absolute Lymphocytes 1.34 1.00 - 3.90 K/uL Absolute Monocytes 0.82 (H) 0.00 - 0.80 K/uL Eosinophils, Absolute 0.02 0.00 - 0.50 K/uL Basophils, Absolute 0.02 0.00 - 0.10 K/uL Magnesium Collection Time: 12/28/19 3:39 AM Result Value Ref Range Magnesium 2.1 1.7 - 2.4 mg/dL Microbiology data: 12/23 mitral valve tissue culture with no growth to date; Gram stain shows no cells or organ isms 12/15 blood cultures with no growth Component Latest Ref Rng & Units 12/16/2019 12/24/2019 11:14 PM 6:46 AM SARS-CoV-2, NAAT (COVID-19) NEG NEGATIVE NEGATIVE SPECIMEN SOURCE: A. HEART VALVE, MITRAL CLINICAL HISTORY: Replacement/repair valve, mitral. I05.8 (endocarditis of mitral valve) FINAL PATHOLOGIC DIAGNOSIS: Mitral heart valve: - Severe bacterial endocarditis Radiology data: CXR FINDINGS/IMPRESSION: 1. Left upper extremity PICC, with catheter tip at or near the superior caval atrial juncti on level. Intact sternal wires with stable configuration. Epicardial wires noted. Evid ence of cardiac valve surgery. Interval removal of right IJ sheath. 2. Low lung volumes. Confluent opacity left lung base, likely combination of atelectasis and/or consolidation and/or small left pleural effusion, unchang ed from previous exam. Probable bilateral perihilar atelectasis and/or pulmonary vascular congestion, stable. Trace right pleural effusion. 3. Cardiomediastinal contours are stable. 4. No pneumothorax. Chest x-ray 1. Interval repositioning of the left arm PICC line 2. Left basilar subsegmental atelectasis and small left effusion Final Report Signed by: Fernando Collier Dwane Sign Date/Time: 12/27/2019 9:56 AM Echocardiogram 12/25 There is mildly reduced left ventricular systolic function. The left ventricular ejectio n fraction is 40%. There is abnormal left ventricular septal motion due to prior cardiac sunil shaan. Normal size right ventricle, with normal right ventricular systolic function. There is a surgically placed bioprosthetic mitral valve with normal function. Mild to moderate tricuspid regurgitation. There are significant changes compared to the preoperative study, done 12/16/2019 at [facility]. PROBLEM LIST Principal Problem: Status post mitral valve replacement Active Problems: Acute bacterial endocarditis Diet-controlled diabetes mellitus Severe protein-calorie malnutrition Infectious endocarditis Endocarditis of mitral valve DUNIA (acute kidney injury) Mitral valve replaced ASSESSMENT & PLAN 1.Subacute mitral valve endocarditis -Found to have large vegetation on mitral valve withsevereeccentric regurgitation. -Bacteremia cleared with negative blood cultures on 12/15 -S/p MVR with bioprosthetic valve on 12/23 -Patient will be covered withintravenous ceftriaxone 2 g every 12 hours until 01/03/20, then changed to daily dosing to complete the endocarditis treatment. -PICC placed 2. Streptococcusviridans bacteremia. Antibiotics as above. 3. Splenic infarcts/emboli on CT Abdominal exam benign 4. Possible kidney hematogenous seeding per CT.findings 5. Very poor dentition.S/p teeth extraction. 6. Bilateral septic emboli to brain. Currently asymptomatic There was report of microhemorrhage. No further seizure activity High-dose twice daily ceftriaxone for SIGN WRITER HAND coverage. Code Status: Full Code Maddi Dwyer MD 12/28/2019 ustine Cabrera RN - 12/27/2019 5:27 PM PDTPatient's orientation much improved today. Able to make needs known and is alert and oriented. Occasionally he is impulsive and requires frequent re direction and education on sternal precautions. Parker, LEA Daniel - 12/27/2019 3:10 PM PDTW. [facility] Interim Note Pt. Name/Age/: Reilly Hamm 69 y.o. 1950 Med. Record Number: [id number] Subjective General: just finished walking w PT. Did well. Very apologetic for his hallucinations last few days. Objective: Temp: 36.8 C (98.3 F) BP: 128/60 Pulse: 73 Resp: 20 SpO2: 97 % on l/m Min/Max Temp past 24 hours:Temp Av.8 C (98.3 F) Min: 36.4 C (97.6 F) Max: 3 7.4 C (99.3 F) Rhythm Strip: junctional, 70's Assessment and Plan: If cont to remain orientated then plan to transfer to floor tomorrow. Electronically signed by: LEA Evans 12/27/2019 3:10 PM PDT [facility] Diana Canales PA - 12/27/2019 8:04 AM PDT [facility] Service: Cardiothoracic Surgery Progress Note ROOM: [address] [place] [address] Hospital Day: LOS: 11 days Post-Op Day: 3 Days Post-Op Surgery/Procedure: Mitral valve replacement with a 29 mm Saint JudeEpic bioprosthetic johnny ve Exploration of aortic valve SUBJECTIVE Events Overnight: Remains in junctional rhythm rate 70 during day dropped 50-60. Hemod ynamics stable. ON and off Nicardipine. BP up 149/67. Art line damped but draws back. UOP: 2445/24hs CT Output: out OBJECTIVE Vital Signs: BP 149/67 | Pulse 54 | Temp 36.8 C (98.3 F) (Oral) | Resp 18 | Ht 1.651 m (5' 5") | Wt 67.6 kg (149 lb 0.5 oz) | SpO2 96% | BMI 24.80 kg/m Current weight: Patient Vitals for the past 96 hrs: Weight 12/26/19 0400 67.6 kg (149 lb 0.5 oz) 12/25/19 1200 63 kg (138 lb 14.2 oz) 12/24/19 0343 63 kg (138 lb 14.2 oz) Admission weight: Weight: 59 kg (130 lb 1.1 oz) Physical Exam: General: Alert, oriented, in no acute distress, resting in bed getting pic line Heart: RRR No murmur Lungs: CTA b/l Dim bases. Abdomen: Soft, nondistended, nontender Extremities: Well perfused, +1 LE edema Musculoskeletal: no deformities or significant abnormalities Neurological: No gross focal motor or sensory deficits Skin: No rash or lesions. Mid-sternal incision dressing is C/D/I. Chest tube present inci daniel C/D/I. Pacing wires present EVH incisions C/D/I. DATA: Scheduled Medications acetaminophen 1,000 mg Oral Q8H atorvaSTATin 40 mg Oral Nightly cefTRIAXone 2 g Intravenous Q12H heparin 5,000 Units Subcutaneous Q8H insulin lispro 0-18 Units Subcutaneous 4x Daily WC and HS levETIRAcetam 500 mg Intravenous Q12H magnesium hydroxide 30 mL Oral Nightly metoprolol tartrate 12.5 mg Oral BID Continuous Infusions dextrose 10% niCARdipine Stopped (12/27/19 0021) phenylephrine Stopped (12/25/19 1620) PRN Medications albumin, albuterol, aspirin, bisacodyl, calcium gluconate IVPB, Hypoglycemia Management A ND POCT Glucose AND dextrose AND dextrose 10%, HYDROmorphone, HYDROmorphone, LORaz epam, Magnesium replacement - ICU AND magnesium sulfate AND magnesium sulfate, andreia onin, menthol throat lozenges, meperidine, oxyCODONE, phenol, polyethylene glycol, Potassium replacement - ICU AND potassium chloride AND potassium chloride AND potassium c hloride, Phosphate Replacement - ICU AND sodium phosphate IVPB AND sodium phosphate IVPB HOME MEDS: Prior to Admission medications Medication Sig Start Date End Date Taking? Authorizing Provider aspirin (ASPIRIN ADULT LOW STRENGTH) 81 MG EC tablet Take 1 tablet (81 mg total) by mouth D ken 11/01/19 Denzel Pryor MD LABS: Recent Labs Lab 12/27/1935712/26/1931412/25/19 0418 WBC 12.04* 11.09* 13.20* HGB 7.9* 8.6* 8.5* HCT 25.3* 27.3* 26.3* PLT 211 159 145* MONOPCT 9.10 6.90 6.40 Recent Labs Lab 12/27/19 0358 12/26/19 0315 12/25/19 1231 12/25/19 0418 NA 137 137 -- -- 140 K 3.5 4.8 3.9 < > 4.0 CL 105 110* -- -- 110* CO2 25 21* -- -- 23 BUN 14 15 -- -- 14 CALCIUM 8.0* 7.8* -- -- 7.4* < > = values in this interval not displayed. Phosphorus: No results found for: PHOS No results for input(s): LABALBU in the last 168 hours. Recent Labs Lab 12/27/19 0358 12/26/19 0315 12/25/19 0418 MG 2.2 2.3 2.6* No results for input(s): AMYLASE in the last 168 hours. Recent Labs Lab 12/24/19 1756 12/24/19 1522 12/24/19 1331 PHART 7.341* 7.382 7.330* PO2ART 160* 153* 230* SEH8IDW 40 33* 43 [id number] 99* 99* 100* Recent Labs Lab 12/24/19 1328 12/23/19 0840 INR 1.3 1.1 PTT 32 -- No results for input(s): TSH in the last 168 hours. Invalid input(s): T3FREE, FREET4 No results for input(s): TROPONINT in the last 168 hours. Invalid input(s): CKTOTAL, TROPONINI, CKMBINDEX PROBLEM LIST Principal Problem: Status post mitral valve replacement Active Problems: Acute bacterial endocarditis Diet-controlled diabetes mellitus Severe protein-calorie malnutrition Infectious endocarditis Endocarditis of mitral valve DUNIA (acute kidney injury) Mitral valve replaced ASSESSMENT & PLAN Endocarditis -- Rocephin BID till 01/02 then to daily till per Dr Real figueroa ID. S/P MVR -- No bblocker -- PWires in place still with Jxn rhythm. Rate little lower this morning. -- Diuresis again today -- Getting PICC line today and will get central line out Junctional rhythm -- Rate 50 - 60. NO BBlockers. -- Watching closely for PPM HTN -- Hydralazine IV today -- Plan start lisinopril tomorrow PO Code Status: Full Code LEA Evans 12/27/2019 Maddi Farah MD - 12/27/2019 6:10 AM PDT [facility] Service: Infectious Disease Progress Note Hospital Day: LOS: 11 days Post-Op Day: 3 Days Post-Op SUBJECTIVE Patient Summary: RE: Endocarditis Chart reviewed. From Dr. Tejeda's note: 69 y.o. male transferred from 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 He had no significant medical history prior to his rece nt admissions. He reportsapproximately 4 months of weakness/fatigue, intermittent fevers, and weight loss of 35-40 pounds.Denieschest pain/pressure. He reported dyspnea on ex ertion with occasional cough, no orthopnea, PND or lower extremity edema. He noted occasio naldizziness but no lightheadedness/syncope. [facility] with those complaints.Laborato ry evaluation was significant for elevated CRP of 80, elevated procalcitonin of 0.68, decrea sed TSH 0.46, and hemoglobin A1c 6.2%. Also duringthe course of evaluation he was found to have a mild troponin elevation, peak 0.08. ECGs reviewed, initial ECGwas concerning f or possible inferior infarct, ST-T abnormalities whichresolved on follow-up ECGs. An [facility] ocardiogram showed preserved LV systolic function, diastolic dysfunction, severe eccentric M R, mild TR. Furtherevaluation with stress test was recommended, however he declined to d o it and was discharged. He then presented to [facility] 12/15/2019 with altered mental status and fever to 104F.He was found to have multiple laboratory abnormalities includingelevated white blood cell countwith bandemia, anemia with hemoglobin 8.3 (was 1 1.7on 10/31/19), lactic acidosis, blood cultures [id number] withgram-positive cocci in chains, identified as S. mitis. Chest x-ray was normal with the exception of mild cardiome unruly. CT scan of the abdomen pelvis demonstrated low-density lesion in the spleen (with 2 satellite lesions disease, low-density lesion in the right lobe of the liver, and lesion in the left kidney. He wasalso tachycardic,initialECG showed a regular narrow complex t achycardia, rate 167 bpm withpossible inferior infarct andnonspecific ST-T abnormalities , likely PSVT.He had palpitations with it. He was reportedly given diltiazem with decrease in his heart rate and follow-up ECG demonstratedNSR with a rate of 97, short MN andPACs .A repeat echo at [facility] showed preserved LV systolic function with a largemobilevegeta tion attached to the posterior leaflet of the mitral valve with severe eccentric anterior MR .There isalso a small ASD with mild [id number]-bllss atrial shunting, as well as mild TR with moderate pulmonary hypertension, confirmed on ARNOLDO. He had no significant CAD on cardia c cath.. ID is following, and he is on antibiotics, awaiting surgical MVR. He had a comple te dental extraction Sunday. He underwent MVR surgery 12/24/19 with a 29 mm [facility] Epic bioprosthetic valve. Follow ing this, in ICU, he had a prolonged gran mal seizure, responded to IV ativan. Brain CT kyra wed no new changes. Events Overnight: Patient is afebrile, evaluated by physical therapy and speech yest erday. T-max of 99.3 F yesterday, afebrile today. Hemodynamically stable. Maintaining o xygen saturation at 95 to 96% in room air. He currently denies chest pain, abdominal pain or headache. PICC just placed Scheduled Medications acetaminophen 1,000 mg Oral Q8H atorvaSTATin 40 mg Oral Nightly cefTRIAXone 2 g Intravenous Q12H heparin 5,000 Units Subcutaneous Q8H insulin lispro 0-18 Units Subcutaneous 4x Daily WC and HS levETIRAcetam 500 mg Intravenous Q12H magnesium hydroxide 30 mL Oral Nightly metoprolol tartrate 12.5 mg Oral BID Continuous Infusions dextrose 10% niCARdipine Stopped (12/27/19 0021) phenylephrine Stopped (12/25/19 1620) PRN Medications albumin, albuterol, aspirin, bisacodyl, calcium gluconate IVPB, Hypoglycemia Management A ND POCT Glucose AND dextrose AND dextrose 10%, HYDROmorphone, HYDROmorphone, LORaz epam, Magnesium replacement - ICU AND magnesium sulfate AND magnesium sulfate, andreia onin, menthol throat lozenges, meperidine, oxyCODONE, phenol, polyethylene glycol, Potassium replacement - ICU AND potassium chloride AND potassium chloride AND potassium c hloride, Phosphate Replacement - ICU AND sodium phosphate IVPB AND sodium phosphate IVPB OBJECTIVE Vital Signs: Vitals: 12/27/19 0400 BP: 168/72 Pulse: 56 Resp: 19 Temp: 36.7 C (98 F) Physical Exam Vital signs have been reviewed General: Frail looking elderly male, not in acute physical distress HEENT: Normocephalic. Anicteric sclera. No conjunctival petechiae. Notable pallor noted. No visible oral labial lesions. Supple neck Dressings intact over sternal wound. Lungs: No rales, wheezes rhonchi noted Cardiovascular: Normal rate. Regular rhythm. No murmur Abdomen: No distention. Soft. No tenderness, rebound or guarding Skin: No rash PICC noted at left upper extremity No peripheral stigmata of infective endocarditis Neurologic: Awake, alert, oriented to person and place. Slightly confused. Moves all extr emities. No tremors Psychiatric: Cooperative for the clinical evaluation DATA Recent Results (from the past 24 hour(s)) ECG 12 lead Collection Time: 12/26/19 8:00 AM Result Value Ref Range VENTRICULAR RATE EKG 57 BPM ATRIAL RATE 57 BPM P-R INTERVAL 252 ms QRS DURATION 76 ms Q-T INTERVAL 546 ms Q-T INTERVAL (CORRECTED) 531 ms P WAVE AXIS 18 degrees QRS AXIS -19 degrees T AXIS 111 degrees INTERPRETATION TEXT Sinus bradycardia with 1st degree A-V block ST & Marked T wave abnormality, consider anterolateral ischemia Prolonged QT Abnormal ECG When compared with ECG of 20-DEC-2019 08:04, Premature atrial complexes are no longer Present MN interval has increased Vent. rate has decreased BY 56 BPM T wave inversion now evident in Anterolateral leads Confirmed by EARNESTINE GARZA MD ([id number]) on 12/26/2019 3:17:52 PM POC Glucose Collection Time: 12/26/19 9:40 AM Result Value Ref Range Glucose, POC 128 (H) 65 - 99 mg/dL Echo Limited Collection Time: 12/26/19 11:29 AM Result Value Ref Range LVIDd 4.7 cm FS 20 % MV mean gradient 8.05 mmHg MV peak gradient 20.52 mmHg TR Peak Gradient 25 mmHg TR Velocity 248.22 cm/s RV Diastolic Basal Diameter 2.87 cm MV Deceleration Time 362.71 msec MV E/A Ratio 1.32 MV Mean Velocity 134.63 cm/s MV Peak A-Wave 134.88 cm/s MV Peak E-Wave 178.15 cm/s Vitals Heart Rate Rest 64 Vitals BP Systolic 128 Vitals BP Diastolic 63 Vitals Height 165.0 Vitals Weight 67.60 IVS Diastolic Thickness MM 1.12 cm LVPW Diastolic Thickness MM 1.05 cm IVS Systolic Thickness MM 1.29 cm LV Systolic Diameter MM 3.77 cm LVPW Systolic Thickness MM 1.28 cm LVEF-TTE TRANSTHORACIC ECHO 40 % POC Glucose Collection Time: 12/26/19 1:33 PM Result Value Ref Range Glucose, POC 121 (H) 65 - 99 mg/dL POC Glucose Collection Time: 12/26/19 5:30 PM Result Value Ref Range Glucose, POC 121 (H) 65 - 99 mg/dL POC Glucose Collection Time: 12/26/19 8:10 PM Result Value Ref Range Glucose, POC 138 (H) 65 - 99 mg/dL Basic Metabolic Panel Collection Time: 12/27/19 3:58 AM Result Value Ref Range Na 137 135 - 145 mmol/L K 3.5 3.5 - 4.9 mmol/L Cl 105 99 - 109 mmol/L CO2 25 23 - 32 mmol/L Anion Gap 11 5 - 20 mmol/L Glucose 114 (H) 65 - 99 mg/dL BUN 14 8 - 25 mg/dL Creatinine 0.85 0.70 - 1.30 mg/dL BUN/Creatinine Ratio 16 Calcium 8.0 (L) 8.5 - 10.5 mg/dL Estimated GFR >60 >60 mL/min/1.73m2 CBC with Differential Collection Time: 12/27/19 3:58 AM Result Value Ref Range WBC 12.04 (H) 3.80 - 11.00 K/uL Red Blood Cells 2.89 (L) 4.20 - 5.70 M/uL Hemoglobin 7.9 (L) 13.2 - 17.0 g/dL Hematocrit 25.3 (L) 39.0 - 50.0 % MCV 87.5 80.0 - 100.0 fl MCH 27.3 27.0 - 34.0 pg MCHC 31.2 (L) 32.0 - 35.5 g/dL RDW-SD 53.5 (H) 37 - 53 fl Platelet Count 211 150 - 400 K/uL MPV 10.7 fl Diff Type AUTOMATED % nRBC 0.0 0 /100WBC % Neutrophils 79.70 % IMMATURE GRANULOCYTE 0.50 % % Lymphocytes 10.40 % Monocyte % 9.10 % Eosinophils % 0.10 % Basophils % 0.20 % Neutrophils, Absolute 9.60 (H) 1.90 - 7.40 K/uL IMMATURE GRANS AB 0.06 0.00 - 0.07 K/uL Absolute Lymphocytes 1.25 1.00 - 3.90 K/uL Absolute Monocytes 1.10 (H) 0.00 - 0.80 K/uL Eosinophils, Absolute 0.01 0.00 - 0.50 K/uL Basophils, Absolute 0.02 0.00 - 0.10 K/uL Magnesium Collection Time: 12/27/19 3:58 AM Result Value Ref Range Magnesium 2.2 1.7 - 2.4 mg/dL Microbiology data: 12/23 mitral valve tissue culture with no growth to date; Gram stain shows no cells or organ isms 12/15 blood cultures with no growth Component Latest Ref Rng & Units 12/16/2019 12/24/2019 11:14 PM 6:46 AM SARS-CoV-2, NAAT (COVID-19) NEG NEGATIVE NEGATIVE SPECIMEN SOURCE: A. HEART VALVE, MITRAL CLINICAL HISTORY: Replacement/repair valve, mitral. I05.8 (endocarditis of mitral valve) FINAL PATHOLOGIC DIAGNOSIS: Mitral heart valve: - Severe bacterial endocarditis Radiology data: Chest x-ray 1. Interval repositioning of the left arm PICC line 2. Left basilar subsegmental atelectasis and small left effusion Final Report Signed by: Fernando Collier, Rishi Sign Date/Time: 12/27/2019 9:56 AM Echocardiogram 12/25 There is mildly reduced left ventricular systolic function. The left ventricular ejectio n fraction is 40%. There is abnormal left ventricular septal motion due to prior cardiac sunil shaan. Normal size right ventricle, with normal right ventricular systolic function. There is a surgically placed bioprosthetic mitral valve with normal function. Mild to moderate tricuspid regurgitation. There are significant changes compared to the preoperative study, done 12/16/2019 at [facility]. PROBLEM LIST Principal Problem: Status post mitral valve replacement Active Problems: Acute bacterial endocarditis Diet-controlled diabetes mellitus Severe protein-calorie malnutrition Infectious endocarditis Endocarditis of mitral valve DUNIA (acute kidney injury) Mitral valve replaced ASSESSMENT & PLAN 1.Subacute mitral valve endocarditis Large vegetation found on mitral valve withsevereeccentric regurgitation. Cardiothoracic surgery consulteddue to large size of vegetation. High risk for recurrent embolization. s/pTEE. No abscess. Bacteremia cleared with negative blood cultures on 12/15 S/p MVR with bioprosthetic valve on 12/23 Patient will be covered withintravenous ceftriaxone 2 g every 12 hours until 01/03/20, the n changed to daily to complete the endocarditis treatment. PICC placed 2. Streptococcusviridans bacteremia. Antibiotics as above. 3. Splenic infarcts/emboli on CT Abdominal exam benign 4. Possible kidney hematogenous seeding per CT.findings 5. Very poor dentition.S/p teeth extraction. 6. Bilateral septic emboli to brain. Currently asymptomatic, although with some degree of cognitive impairment. There was report of microhemorrhage. No further seizure activity High-dose twice daily ceftriaxone for SIGN WRITER HAND coverage. 8. Pulmonary edema: Resolved; O2 sats stable in room air Code Status: Full Code Maddi Dwyer MD 12/27/2019 Karina Marcus MD - 12/27/2019 3:27 AM PDTFormatting of this note might be different f rom the original. [facility] Service: Flare Worker Progress Note Reilly Hamm 69 y.o. Hospital Day: LOS: 11 days Post-Op Day: 1 Day Post-Op Consulting Physicians Treatment Team: Jeet Tejeda MD; Jef Ryan MD; Maddi Dwyer MD SUBJECTIVE Patient Summary: The patient is a 69 y.o. male with significant past medical history of diabetes mellitus who presented to [facility] 12/14 due to a 4 month history of we akness and 1 month history of fevers. Echocardiogram was perfromed which revealed mitral johnny ve endocarditis with mitral valve regurgitation. He was started on zosyn and cefipime. Blood cultures obtained on admission grew out GPC in chains in 2/2 bottles. [facility] on 12/16 and admitted to the acute care floor. CT revealed septic emboli in the spleen, liver, left kidney and brain. Initial blood cultures grew viridans gr oup streptococcus. He was referred to CTS for consideration of mitral valve replacement. Blo od cultures have remained negative for the past 6 days and he was maintained on 2g ceftriaxo ne Q12 for SIGN WRITER HAND coverage. His carious teeth were removed by [facility]FS on 12/19. He developed pulmona ry edema and was diuresed over the last 48 hours with lasix. He underwent mitral valve repla cement on 12/[address] Galvan. ICU Timeline: 12/23: To ICU s/p MVR with Dr. Galvan, postoperatively patient had left sided weakness, th en 2 mins of tonic clonic seizure. 2 mg ativan given with resolution of seizure activity. Lo aded with Keppra, repeat head CT largely unchanged. 12/24: Remains intubated on MV, restless but following some commands. Failed SBT x2 due t o prolonged periods of apnea. Off vasopressors at 0730 12/25: extubated to nasal canula, disoriented at times and yelling. Able to answer simple questions. Following commands in all extremities. Chest tube removed Events Overnight: Overnight he was disoriented and couldn't sleep. Wanted to communic ate with god. Heart rate has been sinus rhythm. Occasionally needing nicardipine for BP con trol. SCHEDULED MEDICATIONS Reviewed. OBJECTIVE VITAL SIGNS Temp: [35.9 C (96.6 F)-37.4 C (99.3 F)] 36.9 C (98.5 F) Pulse: [57-80] 61 Resp: [15-28] 21 BP: (92-191)/(56-85) 146/71 Arterial Line BP: (100-207)/(45-70) 190/68 CVP: [8 mmHg-27 mmHg] 27 mmHg Intake/Output Summary (Last 24 hours) at 12/27/2019 0327 Last data filed at 12/27/2019 0210 Gross per 24 hour Intake 667 ml Output 2565 ml Net -1898 ml EXAM GEN: disoriented, awake, alert NEURO: PERRL, tracking gaze, AxOx1, following simple commands, moving all extremities HEENT: sclerae clear, nonicteric, oral mmm, pink, no exudates NECK: supple, trachea midline CV: RRR, pacer off, S1/S2, no murmur, rub or gallop, peripheral pulses palpable, cap refill brisk, prolonged QTC on EKG CHEST: midline incision with dressing, c/d/i, no erythema or oozing, LUNGS: clear b/l, no wheezing, rales or rhonchi, symmetric chest expansion, even and unlabo red ABD: soft, nondistended, no rebound, no guarding, bowel tones present EXTR: no edema, clubbing or cyanosis SKIN: warm, dry, no rash or mottling; no e/o skin breakdown over the occiput, scapulae, elb ows, sacrum or heels LINES/TUBES: PIV, R IJ cordis, A-line Diagnostic Studies: Available labs and images have been reviewed and will be addressed as indicated in the assessment and plan. PROBLEM LIST Principal Problem: Status post mitral valve replacement Active Problems: Acute bacterial endocarditis Diet-controlled diabetes mellitus Severe protein-calorie malnutrition Infectious endocarditis Endocarditis of mitral valve DUNIA (acute kidney injury) Mitral valve replaced Resolved Problems: Severe mitral regurgitation ASSESSMENT & PLAN NEURO: Seizure: 2 min tonic clonic activity postoperatively with resulting postictal state - daina villanueva due to septic emboli. ? On Keppra BID prophylaxis ? PRN ativan, monitor for seizure activity ? Neurology consult per CTS ? EEG shows non specific generalized cerebral dysfunction without seizure activity Septic emboli to brain with intermittent confusion - secondary to mitral valve endocardi tis. Neurology following. ? Neuro checks per protocol ? CAM-ICU monitoring ? Promote regular sleep/wake cycle - melatonin 6mg started for sleep at night CV: Initially had complete Heart Block: s/p MVR with no intrinsic rhythm off epicardial paci ng. Now improved to sinus rhythm at 65s . Was pacer dependent. Likely due to debridement of posterior MV annulous- ? Off vasopressors ? Cardiology following - need for PPM placement to be determined. Coronary angiogram done 12/18- no significant CAD. Cont telemetry monitoring Beta rip on hold PULM: Titrate O2 to keep sats >92% GI/NUTRITION: CHROMOSOMAL DISORDERS COUNSELOR cleared for pureed diet with 1 DMA item per tray RENAL/LYTES: Stable creatinine Renally dose medications, avoid nephrotoxins Monitor electrolytes and replace per protocol Strict I/O's, daily weights ID: Subacute mitral valve endocarditis s/p MVR with Dr. Galvan. Original source likely cariou s teeth which were removed by Dr. Hull on 12/19. Evidence of septic emboli to spleen, brain, kidney and liver Abx per ID. on ceftriaxone 2gm for SIGN WRITER HAND coverage BID until 01/03/20 then change to daily t o complete the endocarditis treatment. Source of Infection: endocarditis and bacteremia SIRS Criteria: HR > 90 and WBC > 12,000 or < 4000 Acute Organ Dysfunction: Not present Shock: Not Present Based on the above findings, the patient has evidence of: Sepsis (Infection + 2 SIRS) 12/27/2019 3:35 AM PDT Total SOFA Score: 3 HEME: Normocytic anemia - exacerbated by blood loss during surgery. Transfusions managed by CT S. H&H stable Thrombocytopenia improving ENDO: Type 2 diabetes mellitus Maintain BG 80-180 mg/dl on SSI MUSC/SKIN: Reviewed skin cares with nursing. Mobilize up to chair/ ambulation Turns q2h to prevent pressure ulcers PT/OTwhen appropriate PROPHYLAXIS: Stress ulcer prophylaxis: N/A DVT prophylaxis: SCD's while in bed, subcutaneous heparin VAP: N/A Disposition: Per primary service. Code Status: Full Code *Please bill 45 minutes of critical care time spent evaluating the patient, reviewing the d isaac and formulating a plan exclusive of all other procedures. Karina Engle MD 12/27/2019 Aki Saucedo, PT, DPT - 12/26/2019 3:22 PM PDTFormatting of this note might be diffe rent from the original. 12/26/19 1522 PT Visit Summary PT Visit Type Missed Visit (patient unavailable) Next Visit Information 12/25, Cardiac/Stroke, 1+1, HPW, mild L sided weakness PT Visit Summary Having CHROMOSOMAL DISORDERS COUNSELOR consult lexi Peoples MD - 12/26/2019 9:16 AM PDTFormatting of this note might be different fro m the original. [facility] Service: Infectious Diseases Progress Note Hospital Day: LOS: 10 days Post-Op Day: 2 Days Post-Op CC: Follow up on endocarditis. SUBJECTIVE/OVERNIGHT EVENTS Continues on iv antibiotic therapy. Tolerating antibiotics well. Oxygen requirements: SpO2: 100 % on 5L/min nasal cannula Extubated. Good urine output. Postop leukocytosis is trending down. Afebrile. Slightly confused. Intake/Output Summary (Last 24 hours) at 12/26/2019 0916 Last data filed at 12/26/2019 0800 Gross per 24 hour Intake 2084.12 ml Output 658 ml Net 1426.12 ml REVIEW OF SYSTEMS Unable to obtain due to altered mental status. MEDICATIONS: Scheduled Meds: acetaminophen 1,000 mg Oral Q8H atorvaSTATin 40 mg Oral Nightly cefTRIAXone 2 g Intravenous Q12H chlorhexidine 15 mL Mouth/Throat BID docusate sodium 100 mg Oral BID famotidine 20 mg Oral Daily famotidine 20 mg Intravenous Daily heparin 5,000 Units Subcutaneous Q8H insulin lispro 0-18 Units Subcutaneous 4x Daily WC and HS levETIRAcetam 500 mg Intravenous Q12H magnesium hydroxide 30 mL Oral Nightly metoprolol tartrate 12.5 mg Oral BID Continuous Infusions: dexmedetomidine Stopped (12/26/19 0415) dextrose 10% phenylephrine Stopped (12/25/19 1620) PRN Meds:.albumin, albuterol, aspirin, bisacodyl, calcium gluconate IVPB, Hypoglycemia Cha gement AND POCT Glucose AND dextrose AND dextrose 10%, HYDROmorphone, HYDROmorph one, LORazepam, Magnesium replacement - ICU AND magnesium sulfate AND magnesium sulf ate, menthol throat lozenges, meperidine, oxyCODONE, phenol, polyethylene glycol, Potassium replacement - ICU AND potassium chloride AND potassium chloride AND potassium ch loride, Phosphate Replacement - ICU AND sodium phosphate IVPB AND sodium phosphate I VPB PHYSICAL EXAM Vital Signs: BP 141/56 | Pulse 80 | Temp 36.1 C (97 F) | Resp 22 | Ht 1.651 m (5' 5") | Wt 67.6 kg (149 lb 0.5 oz) | SpO2 100% | BMI 24.80 kg/m Focused exam shows: General exam: No distress, cooperative with exam. HEENT: sclera non-icteric, no visible oral thrush Cardiovascular: regular rate and rhythm Lungs: no tachypnea, clear breath sounds. Mildly decreased at bases Abdomen: no distension, bowel sounds present Extremities/MSK: No edema, no joint effusions Skin: No lesions, normal turgor Neurologic: Awake, cranial nerves intact. Follows commands. Location: [facility]. LABS: All labs were reviewed. Recent Results (from the past 24 hour(s)) POC Glucose Result Value Ref Range Glucose, POC 104 (H) 65 - 99 mg/dL Potassium Result Value Ref Range K 3.9 3.5 - 4.9 mmol/L POC Glucose Result Value Ref Range Glucose, POC 105 (H) 65 - 99 mg/dL POC Glucose Result Value Ref Range Glucose, POC 98 65 - 99 mg/dL POC Glucose Result Value Ref Range Glucose, POC 126 (H) 65 - 99 mg/dL POC Glucose Result Value Ref Range Glucose, POC 157 (H) 65 - 99 mg/dL Basic Metabolic Panel Result Value Ref Range Na 137 135 - 145 mmol/L K 4.8 3.5 - 4.9 mmol/L Cl 110 (H) 99 - 109 mmol/L CO2 21 (L) 23 - 32 mmol/L Anion Gap 11 5 - 20 mmol/L Glucose 177 (H) 65 - 99 mg/dL BUN 15 8 - 25 mg/dL Creatinine 0.89 0.70 - 1.30 mg/dL BUN/Creatinine Ratio 17 Calcium 7.8 (L) 8.5 - 10.5 mg/dL Estimated GFR >60 >60 mL/min/1.73m2 CBC with Differential Result Value Ref Range WBC 11.09 (H) 3.80 - 11.00 K/uL Red Blood Cells 3.03 (L) 4.20 - 5.70 M/uL Hemoglobin 8.6 (L) 13.2 - 17.0 g/dL Hematocrit 27.3 (L) 39.0 - 50.0 % MCV 90.1 80.0 - 100.0 fl MCH 28.4 27.0 - 34.0 pg MCHC 31.5 (L) 32.0 - 35.5 g/dL RDW-SD 54.6 (H) 37 - 53 fl Platelet Count 159 150 - 400 K/uL MPV 10.8 fl Diff Type AUTOMATED % nRBC 0.0 0 /100WBC % Neutrophils 82.90 % IMMATURE GRANULOCYTE 0.50 % % Lymphocytes 9.50 % Monocyte % 6.90 % Eosinophils % 0.10 % Basophils % 0.10 % Neutrophils, Absolute 9.20 (H) 1.90 - 7.40 K/uL IMMATURE GRANS AB 0.05 0.00 - 0.07 K/uL Absolute Lymphocytes 1.05 1.00 - 3.90 K/uL Absolute Monocytes 0.77 0.00 - 0.80 K/uL Eosinophils, Absolute 0.01 0.00 - 0.50 K/uL Basophils, Absolute 0.01 0.00 - 0.10 K/uL Magnesium Result Value Ref Range Magnesium 2.3 1.7 - 2.4 mg/dL POC Glucose Result Value Ref Range Glucose, POC 155 (H) 65 - 99 mg/dL ECG 12 lead Result Value Ref Range INTERPRETATION TEXT Not Confirmed Microbiology Results (Last 14 Days by Collected Date with Culture/Sensitivity) Procedure Component Value Units Date/Time Culture, Tissue, Smear, with Anaerobes [[id number]] Collected: 12/24/19 1020 Order Status: Completed Lab Status: Preliminary result Updated: 12/25/19 1351 Specimen: Tissue from Heart, Valve, Mitral Gram Stain Result NO CELLS OR ORGANISMS SEEN RESULT NO GROWTH AT THIS TIME RESULT Testing performed at [facility], [address] [place] [id number] Comment: Testing performed at [facility], [address] [place] [id number] Coronavirus (COVID-19) NAAT [[id number]] Collected: 12/24/19 0646 Order Status: Completed Lab Status: Final result Updated: 12/24/19 0749 Specimen: Tissue from Nasopharynx SARS-CoV-2, NAAT (COVID-19) NEGATIVE Comment: This test was developed and its performance characteristics determined by [email or web address]. It has not been cleared or approved by the [place] FDA. This test has been authorized by FDA under an Emergency Use Authorization (EUA). Clinicians should be advised to consider a patients signs, symptoms, history, and results of other diagnostic tests when interpreting results. Testing performed at [facility];[address] [place] [id number] Coronavirus (COVID-19) NAAT [[id number]] Collected: 12/16/19 2314 Order Status: Completed Lab Status: Final result Updated: 12/17/19 0022 SARS-CoV-2, NAAT (COVID-19) NEGATIVE Comment: This test was developed and its performance characteristics determined by [email or web address]. It has not been cleared or approved by the [place] FDA. This test has been authorized by FDA under an Emergency Use Authorization (EUA). Clinicians should be advised to consider a patients signs, symptoms, history, and results of other diagnostic tests when interpreting results. Testing performed at [facility];[address] [place] [address] Coronavirus (COVID-19) NAAT [[id number]] Collected: 12/16/192135 Order Status: Canceled Lab Status: No result Specimen: Tissue from Nasopharynx Culture, Blood [[id number]] Collected: 12/16/19 1925 Order Status: Completed Lab Status: Final result Updated: 12/23/19 0707 Specimen: Peripheral Blood Special Requests RIGHT HAND Special Requests Testing performed at [facility];[address] [place] [address] RESULT NO GROWTH 6 DAYS RESULT Testing performed at [facility], [address] [place] [id number] Comment: Testing performed at [facility], [address] [place] [address] Culture, Blood [[id number]] Collected: 12/16/19 1925 Order Status: Completed Lab Status: Final result Updated: 12/23/19 0707 Specimen: Peripheral Blood Special Requests LEFT HAND Special Requests Testing performed at [facility];[address] [place] [address]36 RESULT NO GROWTH 6 DAYS RESULT Testing performed at [facility], [address] [place] [id number] Comment: Testing performed at [facility], [address] [place] [address] Microbiology Results (72 hrs) Procedure Component Value Units Date/Time Culture, Tissue, Smear, with Anaerobes [[id number]] Collected: 12/24/19 1020 Order Status: Completed Lab Status: Preliminary result Updated: 12/25/19 1351 Specimen: Tissue from Heart, Valve, Mitral Gram Stain Result NO CELLS OR ORGANISMS SEEN RESULT NO GROWTH AT THIS TIME RESULT Testing performed at [facility], [address] [place] [id number] Comment: Testing performed at [address] [address] Coronavirus (COVID-19) NAAT [[id number]] Collected: 12/24/19 0646 Order Status: Completed Lab Status: Final result Updated: 12/24/19 0749 Specimen: Tissue from Nasopharynx SARS-CoV-2, NAAT (COVID-19) NEGATIVE Comment: This test was developed and its performance characteristics determined by [email or web address]. It has not been cleared or approved by the [place] FDA. This test has been authorized by FDA under an Emergency Use Authorization (EUA). Clinicians should be advised to consider a patients signs, symptoms, history, and results of other diagnostic tests when interpreting results. Testing performed at [facility];[address] [place] [address] IMAGING: CXR images were reviewed. Images dated today. My interpretation: Basilar atelectasis. ASSESSMENT & PLAN The patient is a 69 y.o.-year-old male with the following problems: Active Hospital Problems Diagnosis Date Noted Status post mitral valve replacement 12/24/2019 Mitral valve replaced 12/24/2019 DUNIA (acute kidney injury) 12/21/2019 Infectious endocarditis Severe protein-calorie malnutrition 12/17/2019 Acute bacterial endocarditis 12/16/2019 Diet-controlled diabetes mellitus 12/16/2019 Endocarditis of mitral valve 12/16/2019 Resolved Hospital Problems Diagnosis Date Noted Date Resolved Severe mitral regurgitation 12/24/2019 . 1.Subacute mitral valve endocarditis Large vegetation found on mitral valve withsevereeccentric regurgitation. Cardiothoracic surgery consulteddue to large size of vegetation. High risk for recurrent embolization. s/pTEE. No abscess. Repeat blood cultures x2 sets are in process, no growth so ar. Patient will be covered withintravenous ceftriaxone 2 g every 12 hours until 01/03/20, the n change to daily to complete the endocarditis treatment. Place PICC and remove central line. Cardiac surgery scheduled for tomorrow. 2. Viridans group Streptococcusbacteremia. Antibiotics as above. 3. Splenic infarcts/emboli on CT 4. Possible kidney hematogenous seeding as well per CT. 5. Very poor dentition.S/p teeth extraction. 6. Massive weight loss, secondary to #1. 7. Bilateral septic emboli to brain. Currently asymptomatic, although with some degree of cognitive impairment.With the larg e mitral valve vegetation, not surprising. There is evidence of microhemorrhage. 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 8. Pulmonary edema: Responded well to lasix. Off oxygen. Breathing better. 9. New problem: Seizure. No additional seizure activity. CT unchanged. MRI has been requested. Clinically stable from ID standpoint. Continue current antibiotic regimen. Repeat CBC and CMP in the am. Discussed with attending provider: Reilly Galvan MD PhD . Dr. Dwyer will take over ID service tomorrow. Alexi Noble MD, MPH Infectious Diseases 12/26/19 ehr, Chevy Aaron MD - 12/26/2019 7:58 AM PDTFormatting of this note might be different from the [facility] Service: Cardiology Progress Note Date of Admission: 12/16/2019 BRIEF CLINICAL HISTORY: 69 y.o. male transferred from [facility] for tribal dari ral valve endocarditis with severe mitral regurgitation and evidence for septic emboli in e spleen, liver, left kidney and brain. He had no significant medical history prior to his r [facility] admissions. He reports approximately 4 months of weakness/fatigue, intermittent fevers , and weight loss of 35-40 pounds. Denies chest pain/pressure. He reported dyspnea on exer tion with occasional cough, no orthopnea, PND or lower extremity edema. He noted occasional dizziness but no lightheadedness/syncope. He initially presented to [facility] 10/31/2019 with those complaints. Laboratory evaluation was significant for elevated CRP of 80, elevated procalcitonin of 0.68, decreased TSH 0.46, and hemoglobin A1c 6.2%. Also during the course of evaluation he was found to flores ve a mild troponin elevation, peak 0.08. ECGs reviewed, initial ECG was concerning for poss ible inferior infarct, ST-T abnormalities which resolved on follow-up ECGs. An echocardiogr am showed preserved LV systolic function, diastolic dysfunction, severe eccentric MR, mild T R. Further evaluation with stress test was recommended, however he declined to do it and wa s discharged. He then presented to [facility] 12/15/2019 with altered mental stat us and fever to 104F. He was found to have multiple laboratory abnormalities including elev ated white blood cell count with bandemia, anemia with hemoglobin 8.3 (was 11.7 on 10/31/19), lactic acidosis, blood cultures x2 positive with gram-positive cocci in chains, identified as S. mitis. Chest x-ray was normal with the exception of mild cardiomegaly. CT scan of e abdomen pelvis demonstrated low-density lesion in the spleen (with 2 satellite lesions dis ease, low-density lesion in the right lobe of the liver, and lesion in the left kidney. He was also tachycardic, initial ECG showed a regular narrow complex tachycardia, rate 167 bpm with possible inferior infarct and nonspecific ST-T abnormalities, likely PSVT. He had palpi tations with it. He was reportedly given diltiazem with decrease in his heart rate and follo w-up ECG demonstrated NSR with a rate of 97, short MN and PACs. A repeat echo at [facility] showed preserved LV systolic function with a large mobile vegetation attached to the posterior siria flet of the mitral valve with severe eccentric anterior MR. There is also a small ASD with mild [id number] atrial shunting, as well as mild TR with moderate pulmonary hypertension, confirmed on ARNOLDO. He had no significant CAD on cardiac cath.. ID is following, and he is o n antibiotics, awaiting surgical MVR. He had a complete dental extraction Sunday. He underwent MVR surgery 12/24/19 with a 29 mm Saint Jose R Epic bioprosthetic valve. Follow ing this, in ICU, he had a prolonged gran mal seizure, responded to IV ativan. Currently on vent, sedated, off pressor support. Ventricular paced, no underlying rhythm when PM rate t urned down to [address] showed no new changes. EVENTS OVERNIGHT: He is awake, still mildly sedated, on vent, moves all 4 extremities, no ds yes/no appropriately to questions, denies pain. Past Medical History: Diagnosis Date Diabetes mellitus (HCC) Infectious endocarditis Mitral valve replaced 12/24/2019 29 mm Saint Jose R Epic bioprosthetic valve Severe mitral regurgitation Past Surgical History: Procedure Laterality Date CARDIAC CATHERIZATION N/A 12/19/2019 Procedure: CV LHC; Surgeon: Jeet Tejeda MD; Location: [facility] CV LAB CARDIAC CATHERIZATION N/A 12/19/2019 Procedure: CV COR ANGIO; Surgeon: Jeet Tejeda MD; Location: [facility] CV LAB CARDIAC CATHERIZATION Left 12/19/2019 Procedure: CV LV; Surgeon: Jeet Tejeda MD; Location: [facility] CV LAB MITRAL VALVE REPLACEMENT N/A 12/24/2019 Procedure: MITRAL VALVE REPLACEMENT; Surgeon: Reilly Galvan MD PhD; Location: [facility] CHRISTI N OR TOOTH EXTRACTION N/A 12/20/2019 Procedure: EXTRACTION TEETH; Surgeon: Job Menjivar DMD; Location: [facility] MAIN OR Allergies Allergen Reactions Canola Oil [Vegetable Oil] GI Upset Pt states that he gets upset stomach when ingesting canola oil. Soybean Oil GI Upset Pt states he gets upset stomach when he ingests soybean oil. Medications Prior to Admission Medication Sig Dispense Refill aspirin (ASPIRIN ADULT LOW STRENGTH) 81 MG EC tablet Take 1 tablet (81 mg total) by valorie th Daily 30 tablet 0 Scheduled Medications acetaminophen 1,000 mg Oral Q8H atorvaSTATin 40 mg Oral Nightly cefTRIAXone 2 g Intravenous Q12H chlorhexidine 15 mL Mouth/Throat BID docusate sodium 100 mg Oral BID famotidine 20 mg Oral Daily famotidine 20 mg Intravenous Daily heparin 5,000 Units Subcutaneous Q8H insulin lispro 0-18 Units Subcutaneous 4x Daily WC and HS levETIRAcetam 500 mg Intravenous Q12H magnesium hydroxide 30 mL Oral Nightly metoprolol tartrate 12.5 mg Oral BID Continuous Infusions dexmedetomidine Stopped (12/26/19 0415) dextrose 10% phenylephrine Stopped (12/25/19 1620) PRN Medications albumin, albuterol, aspirin, bisacodyl, calcium gluconate IVPB, Hypoglycemia Management A ND POCT Glucose AND dextrose AND dextrose 10%, HYDROmorphone, HYDROmorphone, LORaz epam, Magnesium replacement - ICU AND magnesium sulfate AND magnesium sulfate, menth ol throat lozenges, meperidine, oxyCODONE, phenol, polyethylene glycol, Potassium replacemen t - ICU AND potassium chloride AND potassium chloride AND potassium chloride, Ph osphate Replacement - ICU AND sodium phosphate IVPB AND sodium phosphate IVPB PHYSICAL EXAM Vital Signs: BP 113/58 | Pulse 80 | Temp 36.1 C (97 F) | Resp 22 | Ht 1.651 m (5' 5") | Wt 67.6 kg (149 lb 0.5 oz) | SpO2 100% | BMI 24.80 kg/m TELEMETRY: Sinus bradycardia I/O: 2083, CT 150 GENERAL: Ill-appearing 69 yo M in no distress. Appears approximately stated age, awake, c onfused HEENT: Normocephalic, atraumatic. Forehead lipoma EYES: Arcus senilis (superior only),sclerae anicteric, no xanthelsasmas MOUTH: ETT in place NECK: No JVD, lymphadenopathy, thyromegaly, bruits. Carotid pulses are 2+ bilaterally LUNGS: clear anterolaterally, with no rales, rhonchi or wheezing noted, respirations unlab ored HEART: Sternotomy bandaged. Nondisplaced PMI, regular rate and rhythm, S1, S2 diminished. No murmurs, rubs or gallops noted. ABDOMEN: Soft, nontender, no organomegaly, masses or bruits. Bowel sounds are normal in a ll 4 quadrants. The abdominal aortic pulsation is not palpable. EXTREMITIES: No edema. Radial pulses 2+ bilaterally. Femoral pulses are 2+ bilaterally wi thout bruits. DP and PT pulses are 2+ bilaterally. SKIN: Warm and dry, capillary refill is normal, no splinter hemorrhages noted in nails, no Osler's nodes or Janeway lesions. NEUROLOGIC: Awake, confused but cooperative, moves all 4 extremities, fairly good strength bilaterally with no obvious defects PSYCHIATRIC: Confused, does not remember what happened to him DATA Recent Labs Lab 12/26/1931412/25/19 1231 12/25/19 0749 12/25/19 0418 12/24/19 2355 12/24/19 1959 12/24/19 1328 12/24/19 0451 12/23/19 0614 12/22/19 0546 NA 137 -- -- 140 -- -- -- 136 135 136 137 K 4.8 3.9 4.0 4.0 4.2 4.5 < > 4.3 3.7 3.6 3.9 CL 110* -- -- 110* -- -- -- 106 103 101 104 CO2 21* -- -- 23 -- -- -- 24 24 25 23 BUN 15 -- -- 14 -- -- -- 16 17 15 17 CREA 0.89 -- -- 0.90 -- -- -- 1.01 1.00 1.11 1.10 EGFR >60 -- -- >60 -- -- -- >60 >60 >60 >60 GLU 177* -- -- 98 -- -- -- 132* 109* 118* 112* MG 2.3 -- -- 2.6* -- -- -- 3.1* -- -- -- CALCIUM 7.8* -- -- 7.4* -- -- -- 7.1* 8.4* 8.3* 8.0* < > = values in this interval not displayed. Recent Labs Lab 12/26/1931413/20 0418 12/24/19 1328 12/24/19 1214 12/24/19 1140 12/24/19 1109 12/24/19 0451 12/23/19 0840 12/23/19 0614 12/22/19 0546 WBC 11.09* 13.20* 41.65* -- -- -- -- 10.42 -- 11.67* 12.49* HGB 8.6* 8.5* 10.8* 7.8* 7.5* 7.8* < > 9.0* -- 8.8* 8.9* HCT 27.3* 26.3* 33.3* 23* 22* 23* < > 28.3* -- 28.1* 28.8* PLT 159 145* 178 -- -- -- -- 344 -- 320 305 INR -- -- 1.3 -- -- -- -- -- 1.1 -- -- < > = values in this interval not displayed. BLOOD C&S: + for Step mitis EKG (12/26/19): Sinus bradycardia, 57, 1st degree AVB, low voltage in standard limb leads, marked T wave inversions V1-V6, prolonged QT interval, QTc 531 ms, marked changes compared t o his last EKG 10/31/[address] (12/25/19): Small subacute infarct within the right occipital lobe, not significantly changed since CT 12/20/2019. No additional significant intracranial findings. CXR (12/26/19): 1. Lines and support devices are unchanged in position. 2. Segmental medial left basilar atelectasis/consolidation unchanged. Stable lung volumes. No new pulmonary opacities. 3. Cardiomediastinal contours are stable. 4. No pneumothorax. BRAIN MRI (12/18/19): 1. An 8 x 8 x 11 mm ring enhancing lesion, image 68 series 11, in the right parieto-occipit al junction near the cortical surface. This may represent a septic embolus or simple the enh ancement of a subacute infarct. 2. 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 CERTIFIED HISTOLOGIC TECHNICIAN territory including a 1.1 x 2.6 cm infarct of t he right occipital lobe, minimal areas of subacute ischemia in the brothers matter of the inferi or right parietal lobe, a 4.5 mm infarct of the central right thalamus, a 3 mm infarct at th e right side of the posterior body the corpus callosum at the medial border of the atria the right lateral ventricle. These may represent embolic infarcts. 3. 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 4. Scalp lipoma of the left forehead measuring 38 x 31 x 7 mm. CARDIAC CATH (12/19/19): No angiographically significant coronary artery disease. Severe (4+) mitral regurgitation due to endocarditis. ECHOs (12/16/19 - [facility]): 1. EF 65%. 2. Normal RV size and function. 3. Suspicion of left to right atrial shunt by color Doppler in subcostal view. 4. Large echodense mass attached to the posterior leaflet of the mitral valve, highly mobil e, measuring 2.5 x 1.4 x 1.6 cm consistent with vegetation, with severe eccentric anterior m itral regurgitation. 5. Mild tricuspid regurgitation with moderate pulmonary hypertension. 6. No evidence of pericardial effusion. (10/31/19 - [facility]): EF 55-60%. Impaired relaxation compatible with diastolic dysfunction (reversed E/A ratio). Mitral valve is thickened with mild annular calcification, borderline prolapse, and an eccentric jet of severe insufficiency directed towards inter-atrial septum. Structurally normal tricuspid valve with mild insufficiency and peak velocity consistent with normal pulmonary pressures. Left atrium is mildly enlarged. No previous studies available for comparison. PROBLEM LIST Principal Problem: Status post mitral valve replacement Active Problems: Acute bacterial endocarditis Diet-controlled diabetes mellitus Severe protein-calorie malnutrition Infectious endocarditis Endocarditis of mitral valve DUNIA (acute kidney injury) Mitral valve replaced ASSESSMENT & PLAN 1. 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 Blood cultures x 2 positive at OSH for S. miti s, blood cultures here are negative so far. A complete dental extraction was done, as this is the likely initial source of infection. ID consulted, on IV Ceftriaxone. He underwent surgical mitral valve replacement earlier today. On vent, pressor support, sedated, cannot assess neuro status at present. Ventricular paced at present. 2. Mild troponin elevation, ECG abnormalities - without angina. There was no significant c oronary artery disease. His Aspirin can be stopped. Continue statin therapy, at 40 mg arthur y, even though he does not have CAD, for primary prevention, as his his 10 year ASCVD risk i s calculated at > 20% (high) and high dose statin therapy is indicated. 3. Anemia, acute - Hemoglobin 11.7 on 10/31/19, 8.3 on 12/15/19 labs at OSH. Hgb dropped to 6 .6 , was > 10 after transfusion of 2 units PRBCs. This is ? from a combination of b one marrow suppression due to IE, MR-related hemolysis, likely exacerbated by hematuria when he pulled out his [place]. Stool was negative for OB. Stable in early post-op period. 4. Arrhythmias: PSVT with a prolonged episode Sunday AM, nonsustained VT this AM. Topr ol XL decreased to 12.5 mg BID. No underlying rhythm at present, A-V paced. Discussed with Dr. Galvan, who had to debride the posterior MV annulus extensively, and he may require a PP M implantation due to this. It is too soon to determine this at present, however. 5. Small secundum ASD with a minimal left to right atrial shunt on echocardiogram and ARNOLDO, will be closed at the time of his MVR surgery. 6. Mild TR with pulmonary hypertension by 12/16/19 echocardiogram at [facility], most likely relate d to severe MR. This will not require surgery. 7. Encephalopathy on admission, resolved prior to surgery, likely due to septic emboli of the brain in multiple areas. His told me that prior to his current illness, his mental acuity was normal. He was evaluated by Dr. Ryan, neurology, who noted his mild confusion was improving. Post-op, he again has encephalopathy 8. TSH 0.46, but normal free T4 (1.5). 9. Glucose intolerance - HgbA1C 6.2% on 10/31/19 admission. 10. Gran mal seizure following MVR, responded to ativan, no new findings on brain CT overn ight. He had the potential for this from septic brain emboli prior to surgery. Now on Kepp ra. MRI indicated. 11. Marked leukocytosis immediately following surgery, decreased quite a bit today 12. Marked EKG changes, uncertain significance in absence of CAD or obvious CVA. Will rec heck limited echo. I will be out of town for the next week, starting this afternoon, Geoffrey Garza MD covering Code Status: Full Code eone, Reilly Umaña MD PhD - 12/26/2019 7:53 AM PDT [facility] Service: Cardiothoracic Surgery Progress Note ROOM: [address] [place] [address] Hospital Day: LOS: 10 days Post-Op Day: 2 Days Post-Op Surgery/Procedure: Mitral valve replacement with a 29 mm Saint JudeEpic bioprosthetic johnny ve Exploration of aortic valve SUBJECTIVE Events Overnight: Mr. Hamm was successfully extubated last night. He remains a bit confused this morning and perseverating but he was able to answer simple questions. He was restrained overnight as he was pulling on his central line and pacemaker wires. His hemodynamics have improved. He does have an underlying rhythm which appears to be a ju nctional rhythm in the 70s now. The pacemaker was turned down and his blood pressure remain ed stable. UOP: 568/24hs CT Output:30 mL/overnight, 150mL/24hrs OBJECTIVE Vital Signs: BP 113/58 | Pulse 80 | Temp 36.1 C (97 F) | Resp 22 | Ht 1.651 m (5' 5") | Wt 67.6 kg (149 lb 0.5 oz) | SpO2 100% | BMI 24.80 kg/m Current weight: Patient Vitals for the past 96 hrs: Weight 12/26/19 0400 67.6 kg (149 lb 0.5 oz) 12/25/19 1200 63 kg (138 lb 14.2 oz) 12/24/19 0343 63 kg (138 lb 14.2 oz) 12/23/19 0707 64.2 kg (141 lb 8.6 oz) Admission weight: Weight: 59 kg (130 lb 1.1 oz) Physical Exam: General: Alert, oriented, in no acute distress, resting in bed Heart: RRR No murmur Lungs: CTA b/l Dim bases. Abdomen: Soft, nondistended, nontender Extremities: Well perfused, +1 LE edema Musculoskeletal: no deformities or significant abnormalities Neurological: No gross focal motor or sensory deficits Skin: No rash or lesions. Mid-sternal incision dressing is C/D/I. Chest tube present inci daniel C/D/I. Pacing wires present EVH incisions C/D/I. DATA: Scheduled Medications acetaminophen 1,000 mg Oral Q8H atorvaSTATin 40 mg Oral Nightly cefTRIAXone 2 g Intravenous Q12H chlorhexidine 15 mL Mouth/Throat BID docusate sodium 100 mg Oral BID famotidine 20 mg Oral Daily famotidine 20 mg Intravenous Daily heparin 5,000 Units Subcutaneous Q8H insulin lispro 0-18 Units Subcutaneous 4x Daily WC and HS levETIRAcetam 500 mg Intravenous Q12H magnesium hydroxide 30 mL Oral Nightly metoprolol tartrate 12.5 mg Oral BID Continuous Infusions dexmedetomidine Stopped (12/26/19 0415) dextrose 10% phenylephrine Stopped (12/25/19 1620) PRN Medications albumin, albuterol, aspirin, bisacodyl, calcium gluconate IVPB, Hypoglycemia Management A ND POCT Glucose AND dextrose AND dextrose 10%, HYDROmorphone, HYDROmorphone, LORaz epam, Magnesium replacement - ICU AND magnesium sulfate AND magnesium sulfate, menth ol throat lozenges, meperidine, oxyCODONE, phenol, polyethylene glycol, Potassium replacemen t - ICU AND potassium chloride AND potassium chloride AND potassium chloride, Ph osphate Replacement - ICU AND sodium phosphate IVPB AND sodium phosphate IVPB HOME MEDS: Prior to Admission medications Medication Sig Start Date End Date Taking? Authorizing Provider aspirin (ASPIRIN ADULT LOW STRENGTH) 81 MG EC tablet Take 1 tablet (81 mg total) by mouth D ken 11/01/19 Denzel Pryor MD LABS: Recent Labs Lab 12/26/19 0315 12/25/19 0418 12/24/19 1328 12/24/19 0451 WBC 11.09* 13.20* 41.65* -- 10.42 HGB 8.6* 8.5* 10.8* < > 9.0* HCT 27.3* 26.3* 33.3* < > 28.3* PLT 159 145* 178 -- 344 MONOPCT 6.90 6.40 -- -- 6.10 < > = values in this interval not displayed. Recent Labs Lab 12/26/19 0315 12/25/19 1231 12/25/19 0749 12/25/19 0418 12/24/19 1328 NA 137 -- -- 140 -- 136 K 4.8 3.9 4.0 4.0 < > 4.3 CL 110* -- -- 110* -- 106 CO2 21* -- -- 23 -- 24 BUN 15 -- -- 14 -- 16 CALCIUM 7.8* -- -- 7.4* -- 7.1* < > = values in this interval not displayed. Phosphorus: No results found for: PHOS No results for input(s): LABALBU in the last 168 hours. Recent Labs Lab 12/26/19 0315 12/25/19 0418 12/24/19 1328 MG 2.3 2.6* 3.1* No results for input(s): AMYLASE in the last 168 hours. Recent Labs Lab 12/24/19 1756 12/24/19 1522 12/24/19 1331 PHART 7.341* 7.382 7.330* PO2ART 160* 153* 230* TSO0IUJ 40 33* 43 [id number] 99* 99* 100* Recent Labs Lab 12/24/19 1328 12/23/19 0840 INR 1.3 1.1 PTT 32 -- No results for input(s): TSH in the last 168 hours. Invalid input(s): T3FREE, FREET4 No results for input(s): TROPONINT in the last 168 hours. Invalid input(s): CKTOTAL, TROPONINI, CKMBINDEX PROBLEM LIST Principal Problem: Status post mitral valve replacement Active Problems: Acute bacterial endocarditis Diet-controlled diabetes mellitus Severe protein-calorie malnutrition Infectious endocarditis Endocarditis of mitral valve DUNIA (acute kidney injury) Mitral valve replaced ASSESSMENT & PLAN Mr. Hamm is a 69-year-old gentleman who remains hemodynamically stable following mitral v alve replacement for extensive destruction of his posterior leaflet and annulus from bacteri al endocarditis. His heart rhythm is improved overnight and is now what appears to be a jessica ctional rhythm in the 70s. We will obtain an EKG this morning. Chest tubes are no longer draining they will be removed. We will leave the pacing wires to day. We will increase mobility as he tolerates and becomes more oriented. Lasix 20 mg IV this m orning with removal of Villa catheter later today to decrease the risk of bacteremia and the risk of subsequent infection of his mitral prosthesis. I will be leaving town today and his care will be assumed by my partners Dr. Elder and Dr. Castro. Code Status: Full Code Reilly Galvan MD PhD FACS 12/26/2019 otung, TaishaLIZ yanP - 12/26/2019 7:50 AM PDTFormatting of this note might be different from the [facility] Service: Flare Worker Progress Note Reilly Hamm 69 y.o. Hospital Day: LOS: 10 days Post-Op Day: 1 Day Post-Op Consulting Physicians Treatment Team: Alexi Rodarte MD; Jeet Tejeda MD; Jef Ryan MD SUBJECTIVE Patient Summary: The patient is a 69 y.o. male with significant past medical history of diabetes mellitus who presented to [facility] 12/14 due to a 4 month history of we akness and 1 month history of fevers. Echocardiogram was perfromed which revealed mitral johnny ve endocarditis with mitral valve regurgitation. He was started on zosyn and cefipime. Blood cultures obtained on admission grew out GPC in chains in 2/2 bottles. [facility] on 12/16 and admitted to the acute care floor. CT revealed septic emboli in the spleen, liver, left kidney and brain. Initial blood cultures grew viridans gr oup streptococcus. He was referred to CTS for consideration of mitral valve replacement. Blo od cultures have remained negative for the past 6 days and he was maintained on 2g ceftriaxo ne Q12 for SIGN WRITER HAND coverage. His carious teeth were removed by OMFS on 12/19. He developed pulmona ry edema and was diuresed over the last 48 hours with lasix. He underwent mitral valve repla cement on 12/[address] Galvan. ICU Timeline: 12/23: To ICU s/p MVR with Dr. Galvan, postoperatively patient had left sided weakness, th en 2 mins of tonic clonic seizure. 2 mg ativan given with resolution of seizure activity. Lo aded with Keppra, repeat head CT largely unchanged. 12/24: Remains intubated on MV, restless but following some commands. Failed SBT x2 due t o prolonged periods of apnea. Off vasopressors at 0730 Events Overnight: Extubated to nasal canula, confused, restless, unable to follow com mands. Minimal CT output SCHEDULED MEDICATIONS Reviewed. OBJECTIVE VITAL SIGNS Temp: [34.9 C (94.8 F)-36.4 C (97.5 F)] 36.1 C (97 F) Pulse: [79-80] 80 Resp: [3-32] 22 BP: (83-121)/(55-76) 113/58 Arterial Line BP: (97-179)/(49-166) 129/61 CVP: [5 mmHg-21 mmHg] 15 mmHg Intake/Output Summary (Last 24 hours) at 12/26/2019 0750 Last data filed at 12/26/2019 0600 Gross per 24 hour Intake 2084.12 ml Output 718 ml Net 1366.12 ml EXAM GEN: pleasantly confused, restless, NAD NEURO: PERRL, tracking gaze, AxOx1, unable to follow commands, purposeful movement to all e xtremities HEENT: sclerae clear, nonicteric, oral mmm, pink, no exudates NECK: supple, trachea midline CV: RRR paced rhythm, S1/S2, no murmur, rub or gallop, peripheral pulses palpable, cap refi ll brisk CHEST: midline incision with dressing, c/d/i, no erythema or oozing, CT exiting subxiphoid process LUNGS: clear b/l, no wheezing, rales or rhonchi, symmetric chest expansion, even and unlabo red ABD: soft, nondistended, no rebound, no guarding, bowel tones present EXTR: no edema, clubbing or cyanosis SKIN: warm, dry, no rash or mottling; no e/o skin breakdown over the occiput, scapulae, elb ows, sacrum or heels LINES/TUBES: PIV, villa, CT x 2, R IJ cordis, A-line Diagnostic Studies: Available labs and images have been reviewed and will be addressed as indicated in the assessment and plan. PROBLEM LIST Principal Problem: Status post mitral valve replacement Active Problems: Acute bacterial endocarditis Diet-controlled diabetes mellitus Severe protein-calorie malnutrition Infectious endocarditis Endocarditis of mitral valve DUNIA (acute kidney injury) Mitral valve replaced Resolved Problems: Severe mitral regurgitation ASSESSMENT & PLAN NEURO: Seizure: 2 min tonic clonic activity postoperatively with resulting postictal state - daina villanueva due to septic emboli. ? On Keppra BID prophylaxis ? PRN ativan, monitor for seizure activity ? Neurology consult per CTS ? EEG shows non specific generalized cerebral dysfunction without seizure activity Septic emboli to brain with intermittent confusion - secondary to mitral valve endocardi tis. Neurology following. ? Neuro checks per protocol ? CAM-ICU monitoring ? Promote regular sleep/wake cycle. CV: Complete Heart Block: s/p MVR with no intrinsic rhythm off epicardial pacing. Now improv ed to junctional rhythm in 70's. Was pacer dependent. Likely due to debridement of posterior MV annulous- ? Off vasopressors ? Cardiology following - need for PPM placement to be determined. Coronary angiogram done 12/18- no significant CAD. Cont telemetry monitoring PULM: Apnea episodes - likely secondary to neurologic status. Extubated to NC- Resolved Monitor for airway compromise Titrate O2 to keep sats >92% GI/NUTRITION: NPO until CHROMOSOMAL DISORDERS COUNSELOR swallow evaluation completed RENAL/LYTES: DUNIA - Likely secondary to critical illness. High risk to develop worsening DUNIA post op. Follow closely. Renally dose medications, avoid nephrotoxins Monitor electrolytes and replace per protocol Strict I/O's, daily weights ID: Subacute mitral valve endocarditis s/p MVR with Dr. Galvan. Original source likely cariou s teeth which were removed by Dr. Hull on 12/19. Evidence of septic emboli to spleen, brain, kidney and liver Abx per ID. 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 Source of Infection: endocarditis and bacteremia SIRS Criteria: HR > 90 and WBC > 12,000 or < 4000 Acute Organ Dysfunction: Not present Shock: Not Present Based on the above findings, the patient has evidence of: Sepsis (Infection + 2 SIRS) 12/26/2019 12:42 PM PDT Total SOFA Score: 4 HEME: Normocytic anemia - exacerbated by blood loss during surgery. Transfusions managed by CT S. H&H stable Thrombocytopenia - drop since admission, exacerbated by sepsis, surgery. Follow closely. - resolved ENDO: Type 2 diabetes mellitus Maintain BG 80-180 mg/dl on SSI MUSC/SKIN: Reviewed skin cares with nursing. Mobilize up to chair/ ambulation Turns q2h to prevent pressure ulcers PT/OTwhen appropriate PROPHYLAXIS: Stress ulcer prophylaxis: N/A DVT prophylaxis: SCD's while in bed, subcutaneous heparin VAP: N/A Disposition: Per primary service. Code Status: Full Code *Please bill 45 minutes of critical care time spent evaluating the patient, reviewing the d isaac and formulating a plan exclusive of all other procedures. ARELY Peters 12/26/2019 Edelmira Hdez RN - 12/26/2019 5:34 AM PDTPt extubated to 2L NC. He has a moderate nonproductive cough. He is able to say his name, but perseverates. He does not know where he is or that he has had surgery. Last Oxycodone was given around 0200. Tylenol given just prior to extubation. Dex gtt is currently off. I have chose to leave patient restrained at this time because h e is pacer dependent, has TLC, and a wound VAC. Will continue to monitor for when it is saf e to remove . Pt was able to swallow a couple of ice chips, but he does not have very good control of his mouth. I think he will need a swallow eval. 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 Benton Martinez ARNP - 12/25/2019 12:51 PM PDTFormatting of this note might be different from the [facility] Service: Flare Worker Progress Note Reilly Hamm 69 y.o. Hospital Day: LOS: 9 days Post-Op Day: 1 Day Post-Op Consulting Physicians Treatment Team: Alexi Rodarte MD; Jeet Tejeda MD; Jef Ryan MD SUBJECTIVE Patient Summary: The patient is a 69 y.o. male with significant past medical history of diabetes mellitus who presented to [facility] 12/14 due to a 4 month history of we akness and 1 month history of fevers. Echocardiogram was perfromed which revealed mitral johnny ve endocarditis with mitral valve regurgitation. He was started on zosyn and cefipime. Blood cultures obtained on admission grew out GPC in chains in 2/2 bottles. [facility] management on 12/16 and admitted to the acute care floor. CT revealed septic emboli in the spleen, liver, left kidney and brain. Initial blood cultures grew viridans gr oup streptococcus. He was referred to CTS for consideration of mitral valve replacement. Blo od cultures have remained negative for the past 6 days and he was maintained on 2g ceftriaxo ne Q12 for SIGN WRITER HAND coverage. His carious teeth were removed by OMFS on 12/19. He developed pulmona ry edema and was diuresed over the last 48 hours with lasix. He underwent mitral valve repla cement on 12/[address] Galvan. ICU Timeline: 12/23: To ICU s/p MVR with Dr. Galvan, postoperatively patient had left sided weakness, th en 2 mins of tonic clonic seizure. 2 mg ativan given with resolution of seizure activity. Lo aded with Keppra, repeat head CT largely unchanged. Events Overnight: Remains intubated on MV, restless but following some commands. Fail ed SBT x2 due to prolonged periods of apnea. Off vasopressors at 0730 SCHEDULED MEDICATIONS Reviewed. OBJECTIVE VITAL SIGNS Temp: [35.2 C (95.4 F)-36.4 C (97.5 F)] 35.8 C (96.5 F) Pulse: [79-80] 80 Resp: [3-28] 14 BP: (82-143)/(53-81) 92/59 Arterial Line BP: (54-157)/(41-81) 97/52 CVP: [4 mmHg-26 mmHg] 9 mmHg Intake/Output Summary (Last 24 hours) at 12/25/2019 1251 Last data filed at 12/25/2019 1200 Gross per 24 hour Intake 3841.6 ml Output 1562 ml Net 2279.6 ml EXAM GEN: intubated and sedated, intermittent restlessness NEURO: PERRL, tracking gaze, but unable to follow finger with gaze. no facial asymmetry, mo ving extremities with RUE 4/5 cardiac rehab nurse strength LUE 3/5 cardiac rehab nurse strength HEENT: sclerae clear, nonicteric, oral mmm, pink, no exudates NECK: supple, trachea midline CV: RRR paced rhythm, S1/S2, no murmur, rub or gallop, peripheral pulses palpable, cap refi ll brisk CHEST: midline incision with dressing, c/d/i, no erythema or oozing, CT exiting subxiphoid process LUNGS: clear b/l, no wheezing, rales or rhonchi, symmetric chest expansion, irregular respi ration pattern on MV ABD: soft, nondistended, no rebound, no guarding, bowel tones present EXTR: no edema, clubbing or cyanosis SKIN: warm, dry, no rash or mottling; no e/o skin breakdown over the occiput, scapulae, elb ows, sacrum or heels LINES/TUBES: PIV, villa, CT x 2, R IJ cordis, A-line Diagnostic Studies: Available labs and images have been reviewed and will be addressed as indicated in the assessment and plan. PROBLEM LIST Principal Problem: Status post mitral valve replacement Active Problems: Acute bacterial endocarditis Diet-controlled diabetes mellitus Severe protein-calorie malnutrition Infectious endocarditis Endocarditis of mitral valve DUNIA (acute kidney injury) Mitral valve replaced Resolved Problems: Severe mitral regurgitation ASSESSMENT & PLAN NEURO: Seizure: 2 min tonic clonic activity postoperatively with resulting postictal state - daina villanueva due to septic emboli. ? Loading dose Kepra given with BID prophylaxis continued ? PRN ativan, monitor for seizure activity ? CTS to consult neurology ? EEG pending Septic emboli to brain with intermittent confusion - secondary to mitral valve endocardi tis. Neurology following. ? Neuro checks per protocol ? CAM-ICU monitoring ? Sedation holiday as tolerates. CV: Complete Heart Block: s/p MVR with no intrinsic rhythm off epicardial pacing. Likely due to debridement of posterior MV annulous ? AV 100% paced ? Off vasopressors ? Cardiology following - need for PPM placement to be determined. Coronary angiogram done 12/18- no significant CAD. Cont telemetry monitoring PULM: Apnea episodes - likely secondary to neurologic status. Continues to remain intubated f or airway protection. Cont lung protective strategy 6cc/kg IBW, pPlat<30 Work towards ventilator liberation, daily spontaneous breathing trials per postop CTS pr otocol. GI/NUTRITION: Start TF per RD due to prolonged intubation if he fails SBT again today. RENAL/LYTES: DUNIA - has improved over last 3 days. Likely secondary to critical illness. High risk to develop worsening DUNIA post op. Follow closely. Renally dose medications, avoid nephrotoxins Monitor electrolytes and replace per protocol Strict I/O's, daily weights ID: Subacute mitral valve endocarditis s/p MVR with Dr. Galvan. Original source likely cariou s teeth which were removed by Dr. Hull on 12/19. Evidence of septic emboli to spleen, brain, kidney and liver Abx per ID. 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 Source of Infection: endocarditis and bacteremia SIRS Criteria: HR > 90 and WBC > 12,000 or < 4000 Acute Organ Dysfunction: Not present Shock: Not Present Based on the above findings, the patient has evidence of: Sepsis (Infection + 2 SIRS) 12/25/2019 12:59 PM PDT Total SOFA Score: 8 HEME: Normocytic anemia - exacerbated by blood loss during surgery. Transfusions managed by CT S. Thrombocytopenia - drop since admission, exacerbated by sepsis, surgery. Follow closely. ENDO: Type 2 diabetes mellitus. Endotool post op, transition to SSI once stabilizes. MUSC/SKIN: Reviewed skin cares with nursing. Mobilize when able Turns q2h to prevent pressure ulcers PT/OTwhen appropriate PROPHYLAXIS: Stress ulcer prophylaxis: Famotidine DVT prophylaxis: SCD's while in bed VAP: chlorhexidine oral care and HOB > 30 degrees Disposition: ICU as above. Code Status: Full Code *Please bill 45 minutes of critical care time spent evaluating the patient, reviewing the d isaac and formulating a plan exclusive of all other procedures. ARELY Peters 12/25/2019 Evelin Squires se, MD - 12/25/2019 10:40 AM PDT [facility] Service: Infectious Diseases Progress Note Hospital Day: LOS: 9 days Post-Op Day: 1 Day Post-Op CC: Follow up on endocarditis. SUBJECTIVE/OVERNIGHT EVENTS Continues on iv antibiotic therapy. Oxygen requirements: SpO2: 99 % on 2L/min mechanical ventilation Pt had seizure activity earlier. Temperature is low. Urine output is good. Pupils are equal. Not on vasopressors. Remains intubated. Intake/Output Summary (Last 24 hours) at 12/25/2019 1040 Last data filed at 12/25/2019 0952 Gross per 24 hour Intake 4941.6 ml Output 2896 ml Net 2045.6 ml REVIEW OF SYSTEMS Unable to obtain due to altered mental status. MEDICATIONS: Scheduled Meds: acetaminophen 1,000 mg Oral Q8H atorvaSTATin 40 mg Oral Nightly cefTRIAXone 2 g Intravenous Q12H chlorhexidine 15 mL Mouth/Throat BID docusate sodium 100 mg Oral BID famotidine 20 mg Oral Daily famotidine 20 mg Intravenous Daily heparin 5,000 Units Subcutaneous Q8H insulin lispro 1-16 Units Subcutaneous TID WC levETIRAcetam 500 mg Intravenous Q12H magnesium hydroxide 30 mL Oral Nightly metoprolol tartrate 12.5 mg Oral BID Continuous Infusions: dexmedetomidine 0.4 mcg/kg/hr (12/25/19 0751) dextrose 5% and sodium chloride 0.45% 50 mL/hr at 12/25/19 0949 EPINEPHrine infusion Stopped (12/24/19 1415) insulin regular 1.1 Units/hr (12/25/19 0831) nitroglycerin in dextrose Stopped (12/24/19 1352) phenylephrine 10 mcg/min (12/25/19 0900) vasopressin (VASOSTRICT) infusion (shock) Stopped (12/24/19 1353) PRN Meds:.albumin, albuterol, aspirin, bisacodyl, calcium gluconate IVPB, dextrose, HYDROmo rphone, HYDROmorphone, LORazepam, Magnesium replacement - ICU AND magnesium sulfate AN D magnesium sulfate, menthol throat lozenges, meperidine, oxyCODONE, phenol, polyethylene glycol, Potassium replacement - ICU AND potassium chloride AND potassium chloride AND potassium chloride, Phosphate Replacement - ICU AND sodium phosphate IVPB AND sodium phosphate IVPB PHYSICAL EXAM Vital Signs: BP (!) 87/57 | Pulse 79 | Temp 35.3 C (95.5 F) | Resp 22 | Ht 1.651 m (5' 5") | Wt 63 kg (138 lb 14.2 oz) | SpO2 99% | BMI 23.11 kg/m Focused exam shows: General exam: Intubated, sedated, mildly agitated. HEENT: sclera non-icteric, no visible oral thrush Cardiovascular: regular rate and rhythm Lungs: no tachypnea, clear breath sounds. Mildly decreased at bases Abdomen: no distension, bowel sounds present Extremities/MSK: No edema, no joint effusions Skin: No lesions, normal turgor Neurologic: Awake, cranial nerves intact. Follows commands. Venous access: CVC. Location: [facility]. LABS: All labs were reviewed. Recent Results (from the past 24 hour(s)) POC CG 4, ISTAT Arterial Result Value Ref Range pH, Arterial, POC 7.364 7.350 - 7.450 pCO2, Arterial 46 (H) 35 - 45 mmHg pO2, Arterial 291 (HH) 80 - 105 mmHg Lactate, Arterial, POC 1.23 0.36 - 1.25 mmol/L HCO3, Arterial 26 22 - 26 mmol/L TCO2, Arterial, POC 27 23 - 27 mEq/L Base Excess, POC 1 0 - 3 mEq/L SO2, Arterial, POC 100 (H) 95 - 98 % POC ISTAT, CG8, Arterial Result Value Ref Range pH, Arterial, POC 7.414 7.350 - 7.450 pCO2, Arterial 41 35 - 45 mmHg pO2, Arterial 281 (HH) 80 - 105 mmHg HCO3, Arterial 26 22 - 26 mmol/L TCO2, Arterial, POC 27 23 - 27 mEq/L Base Excess, POC 1 0 - 3 mEq/L SO2, Arterial, POC 100 (H) 95 - 98 % Sodium, POC 136 135 - 145 mEq/L Potassium, POC 4.8 3.5 - 5.0 mEq/L Ionized Calcium, POC 1.03 (L) 1.12 - 1.32 mmol/L Glucose, POC 138 (H) 65 - 99 mg/dL Hematocrit, POC 23 (LL) 40.0 - 50.0 % Hemoglobin, POC 7.8 (LL) 13.7 - 16.7 g/dL POC ISTAT, CG8, Arterial Result Value Ref Range pH, Arterial, POC 7.344 (L) 7.350 - 7.450 pCO2, Arterial 47 (H) 35 - 45 mmHg pO2, Arterial 276 (HH) 80 - 105 mmHg HCO3, Arterial 25 22 - 26 mmol/L TCO2, Arterial, POC 27 23 - 27 mEq/L Base Excess, POC 0 0 - 3 mEq/L SO2, Arterial, POC 100 (H) 95 - 98 % Sodium, POC 134 (L) 135 - 145 mEq/L Potassium, POC 5.0 3.5 - 5.0 mEq/L Ionized Calcium, POC 1.40 (H) 1.12 - 1.32 mmol/L Glucose, POC 123 (H) 65 - 99 mg/dL Hematocrit, POC 22 (LL) 40.0 - 50.0 % Hemoglobin, POC 7.5 (LL) 13.7 - 16.7 g/dL POC CG 4, ISTAT Arterial Result Value Ref Range pH, Arterial, POC 7.371 7.350 - 7.450 pCO2, Arterial 44 35 - 45 mmHg pO2, Arterial 268 (HH) 80 - 105 mmHg Lactate, Arterial, POC 1.34 (H) 0.36 - 1.25 mmol/L HCO3, Arterial 25 22 - 26 mmol/L TCO2, Arterial, POC 27 23 - 27 mEq/L Base Excess, POC 0 0 - 3 mEq/L SO2, Arterial, POC 100 (H) 95 - 98 % POC ISTAT, CG8, Arterial Result Value Ref Range pH, Arterial, POC 7.358 7.350 - 7.450 pCO2, Arterial 44 35 - 45 mmHg pO2, Arterial 183 (H) 80 - 105 mmHg HCO3, Arterial 25 22 - 26 mmol/L TCO2, Arterial, POC 26 23 - 27 mEq/L POC Base Deficit mmol/L 1 0.0 - 2.0 mmol/L SO2, Arterial, POC 100 (H) 95 - 98 % Sodium, POC 137 135 - 145 mEq/L Potassium, POC 4.5 3.5 - 5.0 mEq/L Ionized Calcium, POC 1.17 1.12 - 1.32 mmol/L Glucose, POC 122 (H) 65 - 99 mg/dL Hematocrit, POC 23 (LL) 40.0 - 50.0 % Hemoglobin, POC 7.8 (LL) 13.7 - 16.7 g/dL POC CG 4, ISTAT Arterial Result Value Ref Range pH, Arterial, POC 7.375 7.350 - 7.450 pCO2, Arterial 42 35 - 45 mmHg pO2, Arterial 203 (HH) 80 - 105 mmHg Lactate, Arterial, POC 1.38 (H) 0.36 - 1.25 mmol/L HCO3, Arterial 25 22 - 26 mmol/L TCO2, Arterial, POC 26 23 - 27 mEq/L POC Base Deficit mmol/L 1 0.0 - 2.0 mmol/L SO2, Arterial, POC 100 (H) 95 - 98 % ECHO Transesophageal (ARNOLDO) - Periop Result Value Ref Range LVEF-ARNOLDO TRANSESOPHAGEAL ECHO 55 Basic Metabolic Panel Result Value Ref Range Na 136 135 - 145 mmol/L K 4.3 3.5 - 4.9 mmol/L Cl 106 99 - 109 mmol/L CO2 24 23 - 32 mmol/L Anion Gap 10 5 - 20 mmol/L Glucose 132 (H) 65 - 99 mg/dL BUN 16 8 - 25 mg/dL Creatinine 1.01 0.70 - 1.30 mg/dL BUN/Creatinine Ratio 16 Calcium 7.1 (L) 8.5 - 10.5 mg/dL Estimated GFR >60 >60 mL/min/1.73m2 CBC with Differential Result Value Ref Range WBC 41.65 (HH) 3.80 - 11.00 K/uL Red Blood Cells 3.73 (L) 4.20 - 5.70 M/uL Hemoglobin 10.8 (L) 13.2 - 17.0 g/dL Hematocrit 33.3 (L) 39.0 - 50.0 % MCV 89.3 80.0 - 100.0 fl MCH 29.0 27.0 - 34.0 pg MCHC 32.4 32.0 - 35.5 g/dL RDW-SD 53.5 (H) 37 - 53 fl Platelet Count 178 150 - 400 K/uL MPV 9.7 fl Diff Type MANUAL % Segmented Neutrophils 93 % % Lymphocytes 5 % % Monocytes 2 % Neutrophils, Absolute 38.74 (H) 1.90 - 7.40 K/uL Absolute Lymphocytes 2.08 1.00 - 3.90 K/uL Absolute Monocytes 0.83 (H) 0.00 - 0.80 K/uL Platelet Estimate ADEQUATE RBC Morphology RBC AND PLT MORPHOLOGY APPEAR NORMAL Fibrinogen Result Value Ref Range Fibrinogen 292 200 - 450 mg/dL Magnesium Result Value Ref Range Magnesium 3.1 (H) 1.7 - 2.4 mg/dL Protime INR Result Value Ref Range INR 1.3 PTT Result Value Ref Range PTT 32 23 - 32 seconds POC Glucose Result Value Ref Range Glucose, POC 128 (H) 65 - 99 mg/dL Blood gas, Arterial Result Value Ref Range FiO2, POC 50 % pH, Arterial, POC 7.330 (L) 7.350 - 7.450 pCO2, Arterial 43 35 - 45 mmHg pO2, Arterial 230 (HH) 80 - 105 mmHg HCO3, Arterial 23 22 - 26 mmol/L TCO2, Arterial, POC 24 23 - 27 mEq/L POC Base Deficit mmol/L 3 (H) 0.0 - 2.0 mmol/L SO2, Arterial, POC 100 (H) 95 - 98 % POC Glucose Result Value Ref Range Glucose, POC 127 (H) 65 - 99 mg/dL Blood gas, Arterial Result Value Ref Range FiO2, POC 30 % pH, Arterial, POC 7.382 7.350 - 7.450 pCO2, Arterial 33 (L) 35 - 45 mmHg pO2, Arterial 153 (H) 80 - 105 mmHg HCO3, Arterial 20 (L) 22 - 26 mmol/L TCO2, Arterial, POC 21 (L) 23 - 27 mEq/L POC Base Deficit mmol/L 6 (H) 0.0 - 2.0 mmol/L SO2, Arterial, POC 99 (H) 95 - 98 % Activated clotting time Result Value Ref Range Activated Clotting Time, POC 257 (H) 74 - 137 seconds POC Glucose Result Value Ref Range Glucose, POC 126 (H) 65 - 99 mg/dL Potassium Result Value Ref Range K 4.3 3.5 - 4.9 mmol/L POC Glucose Result Value Ref Range Glucose, POC 119 (H) 65 - 99 mg/dL POC Glucose Result Value Ref Range Glucose, POC 99 65 - 99 mg/dL Blood gas, Arterial Result Value Ref Range FiO2, POC 30 % pH, Arterial, POC 7.341 (L) 7.350 - 7.450 pCO2, Arterial 40 35 - 45 mmHg pO2, Arterial 160 (H) 80 - 105 mmHg HCO3, Arterial 21 (L) 22 - 26 mmol/L TCO2, Arterial, POC 23 23 - 27 mEq/L POC Base Deficit mmol/L 4 (H) 0.0 - 2.0 mmol/L SO2, Arterial, POC 99 (H) 95 - 98 % POC Glucose Result Value Ref Range Glucose, POC 96 65 - 99 mg/dL POC Glucose Result Value Ref Range Glucose, POC 106 (H) 65 - 99 mg/dL Potassium Result Value Ref Range K 4.5 3.5 - 4.9 mmol/L POC Glucose Result Value Ref Range Glucose, POC 106 (H) 65 - 99 mg/dL POC Glucose Result Value Ref Range Glucose, POC 102 (H) 65 - 99 mg/dL POC Glucose Result Value Ref Range Glucose, POC 105 (H) 65 - 99 mg/dL Potassium Result Value Ref Range K 4.2 3.5 - 4.9 mmol/L POC Glucose Result Value Ref Range Glucose, POC 99 65 - 99 mg/dL POC Glucose Result Value Ref Range Glucose, POC 98 65 - 99 mg/dL POC Glucose Result Value Ref Range Glucose, POC 100 (H) 65 - 99 mg/dL Basic Metabolic Panel Result Value Ref Range Na 140 135 - 145 mmol/L K 4.0 3.5 - 4.9 mmol/L Cl 110 (H) 99 - 109 mmol/L CO2 23 23 - 32 mmol/L Anion Gap 11 5 - 20 mmol/L Glucose 98 65 - 99 mg/dL BUN 14 8 - 25 mg/dL Creatinine 0.90 0.70 - 1.30 mg/dL BUN/Creatinine Ratio 16 Calcium 7.4 (L) 8.5 - 10.5 mg/dL Estimated GFR >60 >60 mL/min/1.73m2 CBC with Differential Result Value Ref Range WBC 13.20 (H) 3.80 - 11.00 K/uL Red Blood Cells 2.93 (L) 4.20 - 5.70 M/uL Hemoglobin 8.5 (L) 13.2 - 17.0 g/dL Hematocrit 26.3 (L) 39.0 - 50.0 % MCV 89.8 80.0 - 100.0 fl MCH 29.0 27.0 - 34.0 pg MCHC 32.3 32.0 - 35.5 g/dL RDW-SD 53.7 (H) 37 - 53 fl Platelet Count 145 (L) 150 - 400 K/uL MPV 10.6 fl Diff Type AUTOMATED % nRBC 0.0 0 /100WBC % Neutrophils 82.60 % IMMATURE GRANULOCYTE 0.50 % % Lymphocytes 10.20 % Monocyte % 6.40 % Eosinophils % 0.10 % Basophils % 0.20 % Neutrophils, Absolute 10.91 (H) 1.90 - 7.40 K/uL IMMATURE GRANS AB 0.07 0.00 - 0.07 K/uL Absolute Lymphocytes 1.35 1.00 - 3.90 K/uL Absolute Monocytes 0.84 (H) 0.00 - 0.80 K/uL Eosinophils, Absolute 0.01 0.00 - 0.50 K/uL Basophils, Absolute 0.02 0.00 - 0.10 K/uL Magnesium Result Value Ref Range Magnesium 2.6 (H) 1.7 - 2.4 mg/dL POC Glucose Result Value Ref Range Glucose, POC 95 65 - 99 mg/dL POC Glucose Result Value Ref Range Glucose, POC 103 (H) 65 - 99 mg/dL POC Glucose Result Value Ref Range Glucose, POC 105 (H) 65 - 99 mg/dL Potassium Result Value Ref Range K 4.0 3.5 - 4.9 mmol/L POC Glucose Result Value Ref Range Glucose, POC 106 (H) 65 - 99 mg/dL Microbiology Results (Last 14 Days by Collected Date with Culture/Sensitivity) Procedure Component Value Units Date/Time Culture, Tissue, Smear, with Anaerobes [[id number]] Collected: 12/24/19 1020 Order Status: Completed Lab Status: Preliminary result Updated: 12/24/192107 Specimen: Tissue from Heart, Valve, Mitral Gram Stain Result NO CELLS OR ORGANISMS SEEN Gram Stain Result Testing performed at [facility], [address] [place] [address] RESULT PENDING Comment: Testing performed at [address] [address] Coronavirus (COVID-19) NAAT [[id number]] Collected: 12/24/19 0646 Order Status: Completed Lab Status: Final result Updated: 12/24/19 0749 Specimen: Tissue from Nasopharynx SARS-CoV-2, NAAT (COVID-19) NEGATIVE Comment: This test was developed and its performance characteristics determined by [email or web address]. It has not been cleared or approved by the [place] FDA. This test has been authorized by FDA under an Emergency Use Authorization (EUA). Clinicians should be advised to consider a patients signs, symptoms, history, and results of other diagnostic tests when interpreting results. Testing performed at [address];[place] [address] Coronavirus (COVID-19) NAAT [[id number]] Collected: 12/16/19 2314 Order Status: Completed Lab Status: Final result Updated: 12/17/19 0022 SARS-CoV-2, NAAT (COVID-19) NEGATIVE Comment: This test was developed and its performance characteristics determined by [email or web address]. It has not been cleared or approved by the [place] FDA. This test has been authorized by FDA under an Emergency Use Authorization (EUA). Clinicians should be advised to consider a patients signs, symptoms, history, and results of other diagnostic tests when interpreting results. Testing performed at [facility];[address] [place] [address] Coronavirus (COVID-19) NAAT [[id number]] Collected: 12/16/192135 Order Status: Canceled Lab Status: No result Specimen: Tissue from Nasopharynx Culture, Blood [[id number]] Collected: 12/16/191924 Order Status: Completed Lab Status: Final result Updated: 12/23/19706 Specimen: Peripheral Blood Special Requests RIGHT HAND Special Requests Testing performed at [facility];[address] [place] [address] RESULT NO GROWTH 6 DAYS RESULT Testing performed at [facility], [address] [place] [address] Comment: Testing performed at [facility], [address] [place] [address] Culture, Blood [[id number]] Collected: 12/16/191924 Order Status: Completed Lab Status: Final result Updated: 12/23/19706 Specimen: Peripheral Blood Special Requests LEFT HAND Special Requests Testing performed at [facility];[address] [place] [address] RESULT NO GROWTH 6 DAYS RESULT Testing performed at [facility], [address] [place] [address] Comment: Testing performed at [facility], [address] [place] [address] Microbiology Results (72 hrs) Procedure Component Value Units Date/Time Culture, Tissue, Smear, with Anaerobes [[id number]] Collected: 12/24/19 1020 Order Status: Completed Lab Status: Preliminary result Updated: 12/24/192107 Specimen: Tissue from Heart, Valve, Mitral Gram Stain Result NO CELLS OR ORGANISMS SEEN Gram Stain Result Testing performed at [facility], [address] [place] [address] RESULT PENDING Comment: Testing performed at [facility], [address] [place] [address] Coronavirus (COVID-19) NAAT [[id number]] Collected: 12/24/19 0646 Order Status: Completed Lab Status: Final result Updated: 12/24/19 0749 Specimen: Tissue from Nasopharynx SARS-CoV-2, NAAT (COVID-19) NEGATIVE Comment: This test was developed and its performance characteristics determined by [email or web address]. It has not been cleared or approved by the [place] FDA. This test has been authorized by FDA under an Emergency Use Authorization (EUA). Clinicians should be advised to consider a patients signs, symptoms, history, and results of other diagnostic tests when interpreting results. Testing performed at [facility];[address] [place] [address];[place] [address] IMAGING: CXR images were reviewed. Images dated today. My interpretation: ET tube. Atelectasis. ASSESSMENT & PLAN The patient is a 69 y.o.-year-old male with the following problems: Active Hospital Problems Diagnosis Date Noted Status post mitral valve replacement 12/24/2019 Mitral valve replaced 12/24/2019 DUNIA (acute kidney injury) 12/21/2019 Infectious endocarditis Severe protein-calorie malnutrition 12/17/2019 Acute bacterial endocarditis 12/16/2019 Diet-controlled diabetes mellitus 12/16/2019 Endocarditis of mitral valve 12/16/2019 Resolved Hospital Problems Diagnosis Date Noted Date Resolved Severe mitral regurgitation 12/24/2019 . 1.Subacute mitral valve endocarditis Large vegetation found on mitral valve withsevereeccentric regurgitation. Cardiothoracic surgery consulteddue to large size of vegetation. High risk for recurrent embolization. s/pTEE. No abscess. Repeat blood cultures x2 sets are in process, no growth so ar. Patient will be covered withintravenous ceftriaxone 2 g every 12 hours. Cardiac surgery scheduled for tomorrow. 2. Viridans group Streptococcusbacteremia. Antibiotics as above. 3. Splenic infarcts/emboli on CT 4. Possible kidney hematogenous seeding as well per CT. 5. Very poor dentition.S/p teeth extraction. 6. Massive weight loss, secondary to #1. 7. Bilateral septic emboli to brain. Currently asymptomatic, although with some degree of cognitive impairment.With the larg e mitral valve vegetation, not surprising. There is evidence of microhemorrhage. 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 Timing of cardiothoracic surgery to be determined by CTS specialist in view of stroke. 8. Pulmonary edema: Responded well to lasix. Off oxygen. Breathing better. 9. New problem: Seizure. Recommend brain imaging. Continue current antibiotic regimen. Repeat CBC and CMP in the am. Discussed with attending provider: Reilly Galvan MD PhD . Alexi Noble MD, MPH Infectious Diseases 12/25/19 heree Miguel MS CCC-CHROMOSOMAL DISORDERS COUNSELOR - 12/25/2019 8:00 AM PDTMISSED THERAPY VISIT Speech Therapy attempted to see the following patient today: Reilly Hamm (P) Missed Visit (status changed), Need New Orders Due to transfer to ICU, new orders are needed if speech therapy services are still warrante d at this time. A M Shanika, Jeet Aaron MD - 12/25/2019 7:37 AM PDT [facility] Service: Cardiology Progress Note Date of Admission: 12/16/2019 BRIEF CLINICAL HISTORY: 69 y.o. male transferred from [facility] for tribal dari ral valve endocarditis with severe mitral regurgitation and evidence for septic emboli in th e spleen, liver, left kidney and brain. He had no significant medical history prior to his r ecent admissions. He reports approximately 4 months of weakness/fatigue, intermittent fevers , and weight loss of 35-40 pounds. Denies chest pain/pressure. He reported dyspnea on exer tion with occasional cough, no orthopnea, PND or lower extremity edema. He noted occasional dizziness but no lightheadedness/syncope. He initially presented to [facility] 10/31/2019 with those complaints. Laboratory evaluation was significant for elevated CRP of 80, elevated procalcitonin of 0.68, decreased TSH 0.46, and hemoglobin A1c 6.2%. Also during the course of evaluation he was found to flores ve a mild troponin elevation, peak 0.08. ECGs reviewed, initial ECG was concerning for poss ible inferior infarct, ST-T abnormalities which resolved on follow-up ECGs. An echocardiogr am showed preserved LV systolic function, diastolic dysfunction, severe eccentric MR, mild T R. Further evaluation with stress test was recommended, however he declined to do it and wa s discharged. He then presented to [facility] 12/15/2019 with altered mental stat us and fever to 104F. He was found to have multiple laboratory abnormalities including elev ated white blood cell count with bandemia, anemia with hemoglobin 8.3 (was 11.7 on 10/31/19), lactic acidosis, blood cultures x2 positive with gram-positive cocci in chains, identified as S. mitis. Chest x-ray was normal with the exception of mild cardiomegaly. CT scan of th e abdomen pelvis demonstrated low-density lesion in the spleen (with 2 satellite lesions dis ease, low-density lesion in the right lobe of the liver, and lesion in the left kidney. He was also tachycardic, initial ECG showed a regular narrow complex tachycardia, rate 167 bpm with possible inferior infarct and nonspecific ST-T abnormalities, likely PSVT. He had palpi tations with it. He was reportedly given diltiazem with decrease in his heart rate and follo w-up ECG demonstrated NSR with a rate of 97, short MN and PACs. A repeat echo at [facility] showed preserved LV systolic function with a large mobile vegetation attached to the posterior siria flet of the mitral valve with severe eccentric anterior MR. There is also a small ASD with mild [id number] atrial shunting, as well as mild TR with moderate pulmonary hypertension, confirmed on ARNOLDO. He had no significant CAD on cardiac cath.. ID is following, and he is o n antibiotics, awaiting surgical MVR. He had a complete dental extraction Sunday. EVENTS OVERNIGHT: He underwent MVR surgery 12/24/19 with a 29 mm Saint Jose R Epic bioprosth etic valve. Following this, in ICU, he had a prolonged gran mal seizure, responded to IV at [facility]. Currently on vent, sedated, off pressor support. Ventricular paced, no underlying rh ythm when PM rate turned down to [address] overnight showed no new changes. He is awake, still mildly sedated, on vent, moves all 4 extremities, nods yes/no appropriately to questions, denies pain. Past Medical History: Diagnosis Date Diabetes mellitus (HCC) Infectious endocarditis Mitral valve replaced 12/24/2019 29 mm Saint Jose R Epic bioprosthetic valve Severe mitral regurgitation Past Surgical History: Procedure Laterality Date CARDIAC CATHERIZATION N/A 12/19/2019 Procedure: CV LHC; Surgeon: Jeet Tejeda MD; Location: [facility] CV LAB CARDIAC CATHERIZATION N/A 12/19/2019 Procedure: CV COR ANGIO; Surgeon: Jeet Tejeda MD; Location: [facility] CV LAB CARDIAC CATHERIZATION Left 12/19/2019 Procedure: CV LV; Surgeon: Jeet Tejeda MD; Location: [facility] CV LAB TOOTH EXTRACTION N/A 12/20/2019 Procedure: EXTRACTION TEETH; Surgeon: Job Menjivar DMD; Location: [facility] MAIN OR Allergies Allergen Reactions Canola Oil [Vegetable Oil] GI Upset Pt states that he gets upset stomach when ingesting canola oil. Soybean Oil GI Upset Pt states he gets upset stomach when he ingests soybean oil. Medications Prior to Admission Medication Sig Dispense Refill aspirin (ASPIRIN ADULT LOW STRENGTH) 81 MG EC tablet Take 1 tablet (81 mg total) by valorie th Daily 30 tablet 0 Scheduled Medications acetaminophen 1,000 mg Oral Q8H atorvaSTATin 40 mg Oral Nightly cefTRIAXone 2 g Intravenous Q12H docusate sodium 100 mg Oral BID famotidine 20 mg Oral Daily famotidine 20 mg Intravenous Daily heparin 5,000 Units Subcutaneous Q8H insulin lispro 1-16 Units Subcutaneous TID WC levETIRAcetam 500 mg Intravenous Q12H magnesium hydroxide 30 mL Oral Nightly metoprolol tartrate 12.5 mg Oral BID Continuous Infusions dexmedetomidine 0.2 mcg/kg/hr (12/25/19 0637) dextrose 5% and sodium chloride 0.45% 50 mL/hr at 12/24/19 1425 EPINEPHrine infusion Stopped (12/24/19 1415) insulin regular 1 Units/hr (12/25/19 0606) nitroglycerin in dextrose Stopped (12/24/19 1352) phenylephrine 10 mcg/min (12/25/19 0421) vasopressin (VASOSTRICT) infusion (shock) Stopped (12/24/19 1353) PRN Medications albumin, albuterol, aspirin, bisacodyl, calcium gluconate IVPB, dextrose, HYDROmorphone, HY DROmorphone, LORazepam, Magnesium replacement - ICU AND magnesium sulfate AND magnes ium sulfate, menthol throat lozenges, meperidine, oxyCODONE, phenol, polyethylene glycol, Po tassium replacement - ICU AND potassium chloride AND potassium chloride AND pota ssium chloride, Phosphate Replacement - ICU AND sodium phosphate IVPB AND sodium aurora sphate IVPB PHYSICAL EXAM Vital Signs: BP 100/61 | Pulse 80 | Temp 35.5 C (95.9 F) | Resp 11 | Ht 1.651 m (5' 5") | Wt 63 kg (138 lb 14.2 oz) | SpO2 99% | BMI 23.11 kg/m TELEMETRY: Ventricular paced, no underlying rhythm at present I/O: 5342 / 2923, CT 170, blood 1250 GENERAL: Ill-appearing 69 yo M in no distress. Appears approximately stated age, on vent, sedated. HEENT: Normocephalic, atraumatic. EYES: Arcus senilis (superior only), pupils constricted, not clearly reacting to light, sclerae anicteric, no xanthelsasmas MOUTH: ETT in place NECK: No JVD, lymphadenopathy, thyromegaly, bruits. Carotid pulses are 2+ bilaterally LUNGS: clear anterolaterally, with no rales, rhonchi or wheezing noted, respirations unlab ored HEART: Nondisplaced PMI, regular rate and rhythm, S1, S2 diminished. No murmurs, rubs or gallops noted. ABDOMEN: Soft, nontender, no organomegaly, masses or bruits. Bowel sounds are normal in a ll 4 quadrants. The abdominal aortic pulsation is not palpable. EXTREMITIES: No edema. Radial pulses 2+ bilaterally. Femoral pulses are 2+ bilaterally wi thout bruits. DP and PT pulses are 2+ bilaterally. SKIN: Warm and dry, capillary refill is normal, no splinter hemorrhages noted in nails, no Osler's nodes or Janeway lesions. NEUROLOGIC: Awake, moves all 4 extremities PSYCHIATRIC: Cannot assess DATA Recent Labs Lab 12/25/198 12/24/19 2355 12/24/19 1959 12/24/19 1557 12/24/19 1328 12/24/19 0451 12/23/19 0614 12/22/19 0546 12/21/19 0502 12/18/19 1152 NA 140 -- -- -- 136 135 136 137 136 < > -- K 4.0 4.2 4.5 4.3 4.3 3.7 3.6 3.9 4.2 < > -- CL 110* -- -- -- 106 103 101 104 103 < > -- CO2 23 -- -- -- 24 24 25 23 22* < > -- BUN 14 -- -- -- 16 17 15 17 21 < > -- CREA 0.90 -- -- -- 1.01 1.00 1.11 1.10 1.40* < > -- EGFR >60 -- -- -- >60 >60 >60 >60 50* < > -- GLU 98 -- -- -- 132* 109* 118* 112* 149* < > -- MG 2.6* -- -- -- 3.1* -- -- -- -- -- -- CALCIUM 7.4* -- -- -- 7.1* 8.4* 8.3* 8.0* 7.6* < > -- TSH -- -- -- -- -- -- -- -- -- -- 1.380 < > = values in this interval not displayed. Recent Labs Lab 12/25/198 12/24/19 1328 12/24/19 1214 12/24/19 1140 12/24/19 1109 12/24/19 1038 12/24/19 0451 12/23/19 0840 12/23/19 0614 12/22/19 0546 12/21/19 0502 WBC 13.20* 41.65* -- -- -- -- -- 10.42 -- 11.67* 12.49* 15.85* HGB 8.5* 10.8* 7.8* 7.5* 7.8* 8.2* < > 9.0* -- 8.8* 8.9* 8.9* HCT 26.3* 33.3* 23* 22* 23* 24* < > 28.3* -- 28.1* 28.8* 28.2* PLT 145* 178 -- -- -- -- -- 344 -- 320 305 272 INR -- 1.3 -- -- -- -- -- -- 1.1 -- -- -- < > = values in this interval not displayed. BLOOD C&S: + for Step greta BRAIN CT (12/25/19): Small subacute infarct within the right occipital lobe, not significantly changed since CT 12/20/2019. No additional significant intracranial findings. CXR (12/25/19): 1. ET tube 4 cm from dany. Right IJ she stable. NG tube in the stomach. Left chest tube in place. Mediastinal drain in place. 2. Increased medial left basilar atelectasis. Decreased medial right basilar atelectasis. 3. Cardiomediastinal contours are stable. 4. No pneumothorax. BRAIN MRI (12/18/19): 1. An 8 x 8 x 11 mm ring enhancing lesion, image 68 series 11, in the right parieto-occipit al junction near the cortical surface. This may represent a septic embolus or simple the enh ancement of a subacute infarct. 2. 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 CERTIFIED HISTOLOGIC TECHNICIAN territory including a 1.1 x 2.6 cm infarct of t he right occipital lobe, minimal areas of subacute ischemia in the brothers matter of the inferi or right parietal lobe, a 4.5 mm infarct of the central right thalamus, a 3 mm infarct at th e right side of the posterior body the corpus callosum at the medial border of the atria the right lateral ventricle. These may represent embolic infarcts. 3. 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 4. Scalp lipoma of the left forehead measuring 38 x 31 x 7 mm. CARDIAC CATH (12/19/19): No angiographically significant coronary artery disease. Severe (4+) mitral regurgitation due to endocarditis. ECHOs (12/16/19 - [facility]): 1. EF 65%. 2. Normal RV size and function. 3. Suspicion of left to right atrial shunt by color Doppler in subcostal view. 4. Large echodense mass attached to the posterior leaflet of the mitral valve, highly mobil e, measuring 2.5 x 1.4 x 1.6 cm consistent with vegetation, with severe eccentric anterior m itral regurgitation. 5. Mild tricuspid regurgitation with moderate pulmonary hypertension. 6. No evidence of pericardial effusion. (10/31/19 - [facility]): EF 55-60%. Impaired relaxation compatible with diastolic dysfunction (reversed E/A ratio). Mitral valve is thickened with mild annular calcification, borderline prolapse, and an eccentric jet of severe insufficiency directed towards inter-atrial septum. Structurally normal tricuspid valve with mild insufficiency and peak velocity consistent with normal pulmonary pressures. Left atrium is mildly enlarged. No previous studies available for comparison. PROBLEM LIST Principal Problem: Status post mitral valve replacement Active Problems: Acute bacterial endocarditis Diet-controlled diabetes mellitus Severe protein-calorie malnutrition Infectious endocarditis Endocarditis of mitral valve DUNIA (acute kidney injury) Mitral valve replaced ASSESSMENT & PLAN 1. 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 Blood cultures x 2 positive at OSH for S. miti s, blood cultures here are negative so far. A complete dental extraction was done, as this is the likely initial source of infection. ID consulted, on IV Ceftriaxone. He underwent surgical mitral valve replacement earlier today. On vent, pressor support, sedated, cannot assess neuro status at present. Ventricular paced at present. 2. Mild troponin elevation, ECG abnormalities - without angina. There was no significant c oronary artery disease. His Aspirin can be stopped. Continue statin therapy, at 40 mg arthur y, even though he does not have CAD, for primary prevention, as his his 10 year ASCVD risk i s calculated at > 20% (high) and high dose statin therapy is indicated. 3. Anemia, acute - Hemoglobin 11.7 on 10/31/19, 8.3 on 12/15/19 labs at OSH. Hgb dropped to 6 .6 , was > 10 after transfusion of 2 units PRBCs. This is ? from a combination of b one marrow suppression due to IE, MR-related hemolysis, likely exacerbated by hematuria when he pulled out his [place]. Stool was negative for OB. Stable in early post-op period. 4. Arrhythmias: PSVT with a prolonged episode Sunday AM, nonsustained VT this AM. Topr ol XL decreased to 12.5 mg BID. No underlying rhythm at present, A-V paced. Discussed with Dr. Galvan, who had to debride the posterior MV annulus extensively, and he may require a PP M implantation due to this. It is too soon to determine this at present, however. 5. Small secundum ASD with a minimal left to right atrial shunt on echocardiogram and ARNOLDO, will be closed at the time of his MVR surgery. 6. Mild TR with pulmonary hypertension by 12/16/19 echocardiogram at [facility], most likely relate d to severe MR. This will not require surgery. 7. Encephalopathy on admission, resolved prior to surgery, likely due to septic emboli of the brain in multiple areas. His told me that prior to his current illness, his mental acuity was normal. He was evaluated by Dr. Ryan, neurology, who noted his mild confusion was improving. 8. TSH 0.46, but normal free T4 (1.5). 9. Glucose intolerance - HgbA1C 6.2% on 10/31/19 admission. 10. Gran mal seizure following MVR, responded to ativan, no new findings on brain CT overn ight. He had the potential for this from septic brain emboli prior to surgery. Now on Kepp ra. Brain imaging deferred at present, but will be needed. 11. Marked leukocytosis immediately following surgery, decreased quite a bit today Code Status: Full Code Reilly Townsend MD PhD - 12/25/2019 7:25 AM PDT [facility] Service: Cardiothoracic Surgery Progress Note ROOM: [id number]/[id number] Hospital Day: LOS: 9 days Post-Op Day: 1 Day Post-Op Surgery/Procedure: Mitral valve replacement with a 29 mm Saint Jose R Epic bioprosthetic valv e Exploration of aortic valve SUBJECTIVE Events Overnight: Mr. Hamm tolerated surgery well yesterday and came off pump withou t difficulty. Upon arriving in the ICU he was stable for a number of hours. He then experi enced a grand mal seizure and had several hours of minimal responsiveness albeit after recei ving lorazepam for the seizure. Overnight he did wake up more. He is now following command s including squeezing both hands and moving both feet. He is not awake enough for extubatio n yet but is moving in the right direction. A CT scan was obtained last night of the brain which demonstrated no new findings. He remains AV paced with a rate of 80. Underlying rhythm is profoundly bradycardic. UOP: 1503/24hs CT Output: 170mL/overnight, 170mL/24hrs OBJECTIVE Vital Signs: BP 100/61 | Pulse 80 | Temp 35.5 C (95.9 F) | Resp 11 | Ht 1.651 m (5' 5") | Wt 63 kg (138 lb 14.2 oz) | SpO2 99% | BMI 23.11 kg/m Current weight: Patient Vitals for the past 96 hrs: Weight 12/24/19 0343 63 kg (138 lb 14.2 oz) 12/23/19 0707 64.2 kg (141 lb 8.6 oz) Admission weight: Weight: 59 kg (130 lb 1.1 oz) Physical Exam: General: Minimally sedated on the ventilator, resting in bed Heart: RRR No murmur Lungs: CTA b/l Dim bases. Abdomen: Soft, nondistended, nontender Extremities: Well perfused, No LE edema Musculoskeletal: no deformities or significant abnormalities Neurological: No gross focal motor or sensory deficits Skin: No rash or lesions. Mid-sternal incision dressing is C/D/I. Chest tube present inci daniel C/D/I. Pacing wires present EVH incisions C/D/I. DATA: Scheduled Medications acetaminophen 1,000 mg Oral Q8H atorvaSTATin 40 mg Oral Nightly cefTRIAXone 2 g Intravenous Q12H docusate sodium 100 mg Oral BID famotidine 20 mg Oral Daily famotidine 20 mg Intravenous Daily insulin lispro 1-16 Units Subcutaneous TID levETIRAcetam 500 mg Intravenous Q12H magnesium hydroxide 30 mL Oral Nightly metoprolol tartrate 12.5 mg Oral BID Continuous Infusions dexmedetomidine 0.2 mcg/kg/hr (12/25/19 0637) dextrose 5% and sodium chloride 0.45% 50 mL/hr at 12/24/19 1425 EPINEPHrine infusion Stopped (12/24/19 1415) insulin regular 1 Units/hr (12/25/19 0606) nitroglycerin in dextrose Stopped (12/24/19 1352) phenylephrine 10 mcg/min (12/25/19 0421) vasopressin (VASOSTRICT) infusion (shock) Stopped (12/24/19 1353) PRN Medications albumin, albuterol, aspirin, bisacodyl, calcium gluconate IVPB, dextrose, HYDROmorphone, HY DROmorphone, LORazepam, Magnesium replacement - ICU AND magnesium sulfate AND magnes ium sulfate, menthol throat lozenges, meperidine, oxyCODONE, phenol, polyethylene glycol, Po tassium replacement - ICU AND potassium chloride AND potassium chloride AND pota ssium chloride, Phosphate Replacement - ICU AND sodium phosphate IVPB AND sodium aurora sphate IVPB HOME MEDS: Prior to Admission medications Medication Sig Start Date End Date Taking? Authorizing Provider aspirin (ASPIRIN ADULT LOW STRENGTH) 81 MG EC tablet Take 1 tablet (81 mg total) by mouth D ken 11/01/19 Denzel Pryor MD LABS: Recent Labs Lab 12/25/1941712/24/198 12/24/19 1214 12/24/19 0451 12/23/19 0614 WBC 13.20* 41.65* -- -- 10.42 11.67* HGB 8.5* 10.8* 7.8* < > 9.0* 8.8* HCT 26.3* 33.3* 23* < > 28.3* 28.1* PLT 145* 178 -- -- 344 320 MONOPCT 6.40 -- -- -- 6.10 6.40 < > = values in this interval not displayed. Recent Labs Lab 12/25/1941712/24/19 2355 12/24/19 1959 12/24/19 1328 12/24/19 0451 NA 140 -- -- -- 136 135 K 4.0 4.2 4.5 < > 4.3 3.7 CL 110* -- -- -- 106 103 CO2 23 -- -- -- 24 24 BUN 14 -- -- -- 16 17 CALCIUM 7.4* -- -- -- 7.1* 8.4* < > = values in this interval not displayed. Phosphorus: No results found for: PHOS No results for input(s): LABALBU in the last 168 hours. Recent Labs Lab 12/25/19 0418 12/24/19 1328 MG 2.6* 3.1* No results for input(s): AMYLASE in the last 168 hours. Recent Labs Lab 12/24/19 1756 12/24/19 1522 12/24/19 1331 PHART 7.341* 7.382 7.330* PO2ART 160* 153* 230* [id number] 40 33* 43 [id number] 99* 99* 100* Recent Labs Lab 12/24/19 1328 12/23/19 0840 INR 1.3 1.1 PTT 32 -- Recent Labs Lab 12/18/19 1152 TSH 1.380 No results for input(s): TROPONINT in the last 168 hours. Invalid input(s): CKTOTAL, TROPONINI, CKMBINDEX PROBLEM LIST Principal Problem: Status post mitral valve replacement Active Problems: Acute bacterial endocarditis Diet-controlled diabetes mellitus Severe protein-calorie malnutrition Infectious endocarditis Endocarditis of mitral valve DUNIA (acute kidney injury) Mitral valve replaced ASSESSMENT & PLAN Postoperative day #1 following atrial valve replacement for bacterial endocarditis with ext ensive destruction of the tribal mitral valve involving the annulus as well. He remains AV paced which is not surprising given the extensive destruction of the posterior annulus. Pos toperative transesophageal echocardiogram revealed excellent function of the new bioprosthet ic valve with no perivalvular leak. He seems to be waking up more this morning and may have delayed emergence from anesthetic secondary to his preoperative embolic stroke associated w ith his endocarditis. It is reassuring that the CT scan obtained last night demonstrates no new findings. We will follow him closely for the appropriate time for extubation. Continue AV pacing at this time. Continue postoperative antibiotics per infectious disease recommendation with fu ll course of postoperative endocarditis therapy. Begin DVT prophylaxis today. Code Status: Full Code Reilly Galvan MD PhD FACS 12/25/2019 Marcie Cadet RN - 12/24/2019 6:15 PM Peyton (Nathalie) updated over phone on events and progress post MVR. Password established. Dr. Galvan and Dr. Tejeda at bedside to evaluate patient. Dr. Tejeda check ed for underlying rhythm (pacer turned down to 30 bpm). No underlying rhythm at this time. E lectronically signed by Marcie Bennett RN at 12/24/2019 6:30 PM Alexi Squires MD - 12/24/2019 5:56 PM PDTFormatting of this note might be different from the origin [facility] Service: Infectious Diseases Progress Note Hospital Day: LOS: 8 days Post-Op Day: Day of Surgery CC: Follow up on endocarditis. SUBJECTIVE/OVERNIGHT EVENTS Continues on iv antibiotic therapy. Denies new concerns and denies side effects. Tolerating antibiotics well. No acute events over the last 24 hours. Oxygen requirements: SpO2: 100 % on 2L/min mechanical ventilation To the OR today for valvular replacement. Afebrile. Good mentation today. Intake/Output Summary (Last 24 hours) at 12/24/2019 1756 Last data filed at 12/24/2019 1700 Gross per 24 hour Intake 3188 ml Output 2168 ml Net 1020 ml REVIEW OF SYSTEMS . GI: denies diarrhea. Skin: denies skin rash. Constitutional: denies fever and chills. Respi ratory: denies difficulty breathing. MEDICATIONS: Scheduled Meds: acetaminophen 1,000 mg Oral Q8H atorvaSTATin 40 mg Oral Nightly cefTRIAXone 2 g Intravenous Q12H docusate sodium 100 mg Oral BID [START ON 12/25/2019] famotidine 20 mg Oral Daily [START ON 12/25/2019] famotidine 20 mg Intravenous Daily insulin lispro 1-16 Units Subcutaneous TID WC [START ON 12/25/2019] levETIRAcetam 500 mg Intravenous Q12H magnesium hydroxide 30 mL Oral Nightly metoprolol tartrate 12.5 mg Oral BID Continuous Infusions: dexmedetomidine Stopped (12/24/19 1450) dextrose 5% and sodium chloride 0.45% 50 mL/hr at 12/24/19 1425 EPINEPHrine infusion Stopped (12/24/19 1415) insulin regular 2 Units/hr (12/24/19 1551) nitroglycerin in dextrose Stopped (12/24/19 1352) phenylephrine 40 mcg/min (12/24/19 1630) vasopressin (VASOSTRICT) infusion (shock) Stopped (12/24/19 1353) PRN Meds:.albumin, albuterol, aspirin, bisacodyl, calcium gluconate IVPB, dextrose, HYDROmo rphone, HYDROmorphone, LORazepam, Magnesium replacement - ICU AND magnesium sulfate AN D magnesium sulfate, menthol throat lozenges, meperidine, oxyCODONE, phenol, polyethylene glycol, Potassium replacement - ICU AND potassium chloride AND potassium chloride AND potassium chloride, Phosphate Replacement - ICU AND sodium phosphate IVPB AND sodium phosphate IVPB PHYSICAL EXAM Vital Signs: BP 92/57 | Pulse 80 | Temp 35.5 C (95.9 F) | Resp 16 | Ht 1.651 m (5' 5") | Wt 63 kg (138 lb 14.2 oz) | SpO2 100% | BMI 23.11 kg/m Focused exam shows: General exam: No distress, cooperative with exam. HEENT: sclera non-icteric, no visible oral thrush Cardiovascular: regular rate and rhythm Lungs: no tachypnea, clear breath sounds. Mildly decreased at bases Abdomen: no distension, bowel sounds present Extremities/MSK: No edema, no joint effusions Skin: No lesions, normal turgor Neurologic: Awake, cranial nerves intact. Follows commands. Venous access: PIV. LABS: All labs were reviewed. Recent Results (from the past 24 hour(s)) CBC with Differential Result Value Ref Range WBC 10.42 3.80 - 11.00 K/uL Red Blood Cells 3.31 (L) 4.20 - 5.70 M/uL Hemoglobin 9.0 (L) 13.2 - 17.0 g/dL Hematocrit 28.3 (L) 39.0 - 50.0 % MCV 85.5 80.0 - 100.0 fl MCH 27.2 27.0 - 34.0 pg MCHC 31.8 (L) 32.0 - 35.5 g/dL RDW-SD 53.6 (H) 37 - 53 fl Platelet Count 344 150 - 400 K/uL MPV 10.2 fl Diff Type AUTOMATED % nRBC 0.0 0 /100WBC % Neutrophils 78.30 % IMMATURE GRANULOCYTE 0.60 % % Lymphocytes 14.20 % Monocyte % 6.10 % Eosinophils % 0.70 % Basophils % 0.10 % Neutrophils, Absolute 8.16 (H) 1.90 - 7.40 K/uL IMMATURE GRANS AB 0.06 0.00 - 0.07 K/uL Absolute Lymphocytes 1.48 1.00 - 3.90 K/uL Absolute Monocytes 0.64 0.00 - 0.80 K/uL Eosinophils, Absolute 0.07 0.00 - 0.50 K/uL Basophils, Absolute 0.01 0.00 - 0.10 K/uL Basic Metabolic Panel Result Value Ref Range Na 135 135 - 145 mmol/L K 3.7 3.5 - 4.9 mmol/L Cl 103 99 - 109 mmol/L CO2 24 23 - 32 mmol/L Anion Gap 12 5 - 20 mmol/L Glucose 109 (H) 65 - 99 mg/dL BUN 17 8 - 25 mg/dL Creatinine 1.00 0.70 - 1.30 mg/dL BUN/Creatinine Ratio 17 Calcium 8.4 (L) 8.5 - 10.5 mg/dL Estimated GFR >60 >60 mL/min/1.73m2 Coronavirus (COVID-19) NAAT Specimen: Nasopharynx; Tissue Result Value Ref Range SARS-CoV-2, NAAT (COVID-19) NEGATIVE NEG Red Blood Cells (RBC) - Crossmatch and Hold Result Value Ref Range Product Code RED CELL GROUP Units ordered 4 BLOOD BANK COMMENT ORDER RECEIVED IN BLOOD BANK. BLOOD BANK COMMENT Testing performed at [facility];[address] [place] [address];[place] [address] POC Glucose Result Value Ref Range Glucose, POC 119 (H) 65 - 99 mg/dL POC ISTAT, CG8, Arterial Result Value Ref Range pH, Arterial, POC 7.441 7.350 - 7.450 pCO2, Arterial 35 35 - 45 mmHg pO2, Arterial 220 (HH) 80 - 105 mmHg HCO3, Arterial 24 22 - 26 mmol/L TCO2, Arterial, POC 25 23 - 27 mEq/L Base Excess, POC 0 0 - 3 mEq/L SO2, Arterial, POC 100 (H) 95 - 98 % Sodium, POC 135 135 - 145 mEq/L Potassium, POC 3.8 3.5 - 5.0 mEq/L Ionized Calcium, POC 1.14 1.12 - 1.32 mmol/L Glucose, POC 133 (H) 65 - 99 mg/dL Hematocrit, POC 27 (L) 40.0 - 50.0 % Hemoglobin, POC 9.2 (L) 13.7 - 16.7 g/dL POC CG 4, ISTAT Arterial Result Value Ref Range pH, Arterial, POC 7.447 7.350 - 7.450 pCO2, Arterial 34 (L) 35 - 45 mmHg pO2, Arterial 218 (HH) 80 - 105 mmHg Lactate, Arterial, POC 0.72 0.36 - 1.25 mmol/L HCO3, Arterial 24 22 - 26 mmol/L TCO2, Arterial, POC 25 23 - 27 mEq/L Base Excess, POC 0 0 - 3 mEq/L SO2, Arterial, POC 100 (H) 95 - 98 % POC ISTAT, CG8, Arterial Result Value Ref Range pH, Arterial, POC 7.399 7.350 - 7.450 pCO2, Arterial 41 35 - 45 mmHg pO2, Arterial 263 (HH) 80 - 105 mmHg HCO3, Arterial 25 22 - 26 mmol/L TCO2, Arterial, POC 26 23 - 27 mEq/L Base Excess, POC 0 0 - 3 mEq/L SO2, Arterial, POC 100 (H) 95 - 98 % Sodium, POC 135 135 - 145 mEq/L Potassium, POC 3.6 3.5 - 5.0 mEq/L Ionized Calcium, POC 1.12 1.12 - 1.32 mmol/L Glucose, POC 142 (H) 65 - 99 mg/dL Hematocrit, POC 24 (L) 40.0 - 50.0 % Hemoglobin, POC 8.2 (L) 13.7 - 16.7 g/dL POC ISTAT, CG8, Arterial Result Value Ref Range pH, Arterial, POC 7.390 7.350 - 7.450 pCO2, Arterial 47 (H) 35 - 45 mmHg pO2, Arterial 314 (HH) 80 - 105 mmHg HCO3, Arterial 28 (H) 22 - 26 mmol/L TCO2, Arterial, POC 30 (H) 23 - 27 mEq/L Base Excess, POC 3 0 - 3 mEq/L SO2, Arterial, POC 100 (H) 95 - 98 % Sodium, POC 132 (L) 135 - 145 mEq/L Potassium, POC 3.6 3.5 - 5.0 mEq/L Ionized Calcium, POC 0.97 (L) 1.12 - 1.32 mmol/L Glucose, POC 145 (H) 65 - 99 mg/dL Hematocrit, POC 21 (LL) 40.0 - 50.0 % Hemoglobin, POC 7.1 (LL) 13.7 - 16.7 g/dL POC ISTAT, CG8, Venous Result Value Ref Range pH, Venous, POC 7.283 (L) 7.310 - 7.410 PCO2, Venous, POC 58 (H) 41 - 51 mmHG pO2, Venous 54 (H) 30 - 40 mmHG HCO3, Venous 27 23 - 28 mmol/L TCO2, POC 29 24 - 29 mEq/L Base Excess, POC 1 0 - 3 mEq/L POC SO2.BLDV.QN.(%) 83.0 60 - 85 % Sodium, POC 136 135 - 145 mEq/L Potassium, POC 4.2 3.5 - 5.0 mEq/L Ionized Calcium, POC 1.08 (L) 1.12 - 1.32 mmol/L Glucose, POC 148 (H) 65 - 99 mg/dL Hematocrit, POC 20 (LL) 40.0 - 50.0 % Hemoglobin, POC 6.8 (LL) 13.7 - 16.7 g/dL POC ISTAT, CG8, Arterial Result Value Ref Range pH, Arterial, POC 7.319 (L) 7.350 - 7.450 pCO2, Arterial 52 (H) 35 - 45 mmHg pO2, Arterial 363 (HH) 80 - 105 mmHg HCO3, Arterial 27 (H) 22 - 26 mmol/L TCO2, Arterial, POC 28 (H) 23 - 27 mEq/L Base Excess, POC 1 0 - 3 mEq/L SO2, Arterial, POC 100 (H) 95 - 98 % Sodium, POC 135 135 - 145 mEq/L Potassium, POC 4.2 3.5 - 5.0 mEq/L Ionized Calcium, POC 1.07 (L) 1.12 - 1.32 mmol/L Glucose, POC 150 (H) 65 - 99 mg/dL Hematocrit, POC 20 (LL) 40.0 - 50.0 % Hemoglobin, POC 6.8 (LL) 13.7 - 16.7 g/dL POC ISTAT, CG8, Arterial Result Value Ref Range pH, Arterial, POC 7.350 7.350 - 7.450 pCO2, Arterial 47 (H) 35 - 45 mmHg pO2, Arterial 314 (HH) 80 - 105 mmHg HCO3, Arterial 26 22 - 26 mmol/L TCO2, Arterial, POC 27 23 - 27 mEq/L Base Excess, POC 0 0 - 3 mEq/L SO2, Arterial, POC 100 (H) 95 - 98 % Sodium, POC 136 135 - 145 mEq/L Potassium, POC 4.2 3.5 - 5.0 mEq/L Ionized Calcium, POC 0.95 (L) 1.12 - 1.32 mmol/L Glucose, POC 159 (H) 65 - 99 mg/dL Hematocrit, POC 24 (L) 40.0 - 50.0 % Hemoglobin, POC 8.2 (L) 13.7 - 16.7 g/dL POC CG 4, ISTAT Arterial Result Value Ref Range pH, Arterial, POC 7.364 7.350 - 7.450 pCO2, Arterial 46 (H) 35 - 45 mmHg pO2, Arterial 291 (HH) 80 - 105 mmHg Lactate, Arterial, POC 1.23 0.36 - 1.25 mmol/L HCO3, Arterial 26 22 - 26 mmol/L TCO2, Arterial, POC 27 23 - 27 mEq/L Base Excess, POC 1 0 - 3 mEq/L SO2, Arterial, POC 100 (H) 95 - 98 % POC ISTAT, CG8, Arterial Result Value Ref Range pH, Arterial, POC 7.414 7.350 - 7.450 pCO2, Arterial 41 35 - 45 mmHg pO2, Arterial 281 (HH) 80 - 105 mmHg HCO3, Arterial 26 22 - 26 mmol/L TCO2, Arterial, POC 27 23 - 27 mEq/L Base Excess, POC 1 0 - 3 mEq/L SO2, Arterial, POC 100 (H) 95 - 98 % Sodium, POC 136 135 - 145 mEq/L Potassium, POC 4.8 3.5 - 5.0 mEq/L Ionized Calcium, POC 1.03 (L) 1.12 - 1.32 mmol/L Glucose, POC 138 (H) 65 - 99 mg/dL Hematocrit, POC 23 (LL) 40.0 - 50.0 % Hemoglobin, POC 7.8 (LL) 13.7 - 16.7 g/dL POC ISTAT, CG8, Arterial Result Value Ref Range pH, Arterial, POC 7.344 (L) 7.350 - 7.450 pCO2, Arterial 47 (H) 35 - 45 mmHg pO2, Arterial 276 (HH) 80 - 105 mmHg HCO3, Arterial 25 22 - 26 mmol/L TCO2, Arterial, POC 27 23 - 27 mEq/L Base Excess, POC 0 0 - 3 mEq/L SO2, Arterial, POC 100 (H) 95 - 98 % Sodium, POC 134 (L) 135 - 145 mEq/L Potassium, POC 5.0 3.5 - 5.0 mEq/L Ionized Calcium, POC 1.40 (H) 1.12 - 1.32 mmol/L Glucose, POC 123 (H) 65 - 99 mg/dL Hematocrit, POC 22 (LL) 40.0 - 50.0 % Hemoglobin, POC 7.5 (LL) 13.7 - 16.7 g/dL POC CG 4, ISTAT Arterial Result Value Ref Range pH, Arterial, POC 7.371 7.350 - 7.450 pCO2, Arterial 44 35 - 45 mmHg pO2, Arterial 268 (HH) 80 - 105 mmHg Lactate, Arterial, POC 1.34 (H) 0.36 - 1.25 mmol/L HCO3, Arterial 25 22 - 26 mmol/L TCO2, Arterial, POC 27 23 - 27 mEq/L Base Excess, POC 0 0 - 3 mEq/L SO2, Arterial, POC 100 (H) 95 - 98 % POC ISTAT, CG8, Arterial Result Value Ref Range pH, Arterial, POC 7.358 7.350 - 7.450 pCO2, Arterial 44 35 - 45 mmHg pO2, Arterial 183 (H) 80 - 105 mmHg HCO3, Arterial 25 22 - 26 mmol/L TCO2, Arterial, POC 26 23 - 27 mEq/L POC Base Deficit mmol/L 1 0.0 - 2.0 mmol/L SO2, Arterial, POC 100 (H) 95 - 98 % Sodium, POC 137 135 - 145 mEq/L Potassium, POC 4.5 3.5 - 5.0 mEq/L Ionized Calcium, POC 1.17 1.12 - 1.32 mmol/L Glucose, POC 122 (H) 65 - 99 mg/dL Hematocrit, POC 23 (LL) 40.0 - 50.0 % Hemoglobin, POC 7.8 (LL) 13.7 - 16.7 g/dL POC CG 4, ISTAT Arterial Result Value Ref Range pH, Arterial, POC 7.375 7.350 - 7.450 pCO2, Arterial 42 35 - 45 mmHg pO2, Arterial 203 (HH) 80 - 105 mmHg Lactate, Arterial, POC 1.38 (H) 0.36 - 1.25 mmol/L HCO3, Arterial 25 22 - 26 mmol/L TCO2, Arterial, POC 26 23 - 27 mEq/L POC Base Deficit mmol/L 1 0.0 - 2.0 mmol/L SO2, Arterial, POC 100 (H) 95 - 98 % ECHO Transesophageal (ARNOLDO) - Periop Result Value Ref Range LVEF-ARNOLDO TRANSESOPHAGEAL ECHO 55 Basic Metabolic Panel Result Value Ref Range Na 136 135 - 145 mmol/L K 4.3 3.5 - 4.9 mmol/L Cl 106 99 - 109 mmol/L CO2 24 23 - 32 mmol/L Anion Gap 10 5 - 20 mmol/L Glucose 132 (H) 65 - 99 mg/dL BUN 16 8 - 25 mg/dL Creatinine 1.01 0.70 - 1.30 mg/dL BUN/Creatinine Ratio 16 Calcium 7.1 (L) 8.5 - 10.5 mg/dL Estimated GFR >60 >60 mL/min/1.73m2 CBC with Differential Result Value Ref Range WBC 41.65 (HH) 3.80 - 11.00 K/uL Red Blood Cells 3.73 (L) 4.20 - 5.70 M/uL Hemoglobin 10.8 (L) 13.2 - 17.0 g/dL Hematocrit 33.3 (L) 39.0 - 50.0 % MCV 89.3 80.0 - 100.0 fl MCH 29.0 27.0 - 34.0 pg MCHC 32.4 32.0 - 35.5 g/dL RDW-SD 53.5 (H) 37 - 53 fl Platelet Count 178 150 - 400 K/uL MPV 9.7 fl Diff Type MANUAL % Segmented Neutrophils 93 % % Lymphocytes 5 % % Monocytes 2 % Neutrophils, Absolute 38.74 (H) 1.90 - 7.40 K/uL Absolute Lymphocytes 2.08 1.00 - 3.90 K/uL Absolute Monocytes 0.83 (H) 0.00 - 0.80 K/uL Platelet Estimate ADEQUATE RBC Morphology RBC AND PLT MORPHOLOGY APPEAR NORMAL Fibrinogen Result Value Ref Range Fibrinogen 292 200 - 450 mg/dL Magnesium Result Value Ref Range Magnesium 3.1 (H) 1.7 - 2.4 mg/dL Protime INR Result Value Ref Range INR 1.3 PTT Result Value Ref Range PTT 32 23 - 32 seconds POC Glucose Result Value Ref Range Glucose, POC 128 (H) 65 - 99 mg/dL Blood gas, Arterial Result Value Ref Range FiO2, POC 50 % pH, Arterial, POC 7.330 (L) 7.350 - 7.450 pCO2, Arterial 43 35 - 45 mmHg pO2, Arterial 230 (HH) 80 - 105 mmHg HCO3, Arterial 23 22 - 26 mmol/L TCO2, Arterial, POC 24 23 - 27 mEq/L POC Base Deficit mmol/L 3 (H) 0.0 - 2.0 mmol/L SO2, Arterial, POC 100 (H) 95 - 98 % POC Glucose Result Value Ref Range Glucose, POC 127 (H) 65 - 99 mg/dL Blood gas, Arterial Result Value Ref Range FiO2, POC 30 % pH, Arterial, POC 7.382 7.350 - 7.450 pCO2, Arterial 33 (L) 35 - 45 mmHg pO2, Arterial 153 (H) 80 - 105 mmHg HCO3, Arterial 20 (L) 22 - 26 mmol/L TCO2, Arterial, POC 21 (L) 23 - 27 mEq/L POC Base Deficit mmol/L 6 (H) 0.0 - 2.0 mmol/L SO2, Arterial, POC 99 (H) 95 - 98 % Activated clotting time Result Value Ref Range Activated Clotting Time, POC 257 (H) 74 - 137 seconds Potassium Result Value Ref Range K 4.3 3.5 - 4.9 mmol/L Microbiology Results (Last 14 Days by Collected Date with Culture/Sensitivity) Procedure Component Value Units Date/Time Culture, Tissue, Smear, with Anaerobes [[id number]] Collected: 12/24/19 1020 Order Status: Sent Lab Status: In process Updated: 12/24/19 1058 Specimen: Tissue from Heart, Valve, Mitral Coronavirus (COVID-19) NAAT [[id number]] Collected: 12/24/19 0646 Order Status: Completed Lab Status: Final result Updated: 12/24/19 0749 Specimen: Tissue from Nasopharynx SARS-CoV-2, NAAT (COVID-19) NEGATIVE Comment: This test was developed and its performance characteristics determined by [email or web address]. It has not been cleared or approved by the [place] FDA. This test has been authorized by FDA under an Emergency Use Authorization (EUA). Clinicians should be advised to consider a patients signs, symptoms, history, and results of other diagnostic tests when interpreting results. Testing performed at [facility];[address] [place] [address] Coronavirus (COVID-19) NAAT [[id number]] Collected: 12/16/19 2314 Order Status: Completed Lab Status: Final result Updated: 12/17/19 0022 SARS-CoV-2, NAAT (COVID-19) NEGATIVE Comment: This test was developed and its performance characteristics determined by [email or web address]. It has not been cleared or approved by the [place] FDA. This test has been authorized by FDA under an Emergency Use Authorization (EUA). Clinicians should be advised to consider a patients signs, symptoms, history, and results of other diagnostic tests when interpreting results. Testing performed at [facility];[address] [place] [address] Coronavirus (COVID-19) NAAT [[id number]] Collected: 12/16/196 Order Status: Canceled Lab Status: No result Specimen: Tissue from Nasopharynx Culture, Blood [[id number]] Collected: 12/16/191924 Order Status: Completed Lab Status: Final result Updated: 12/23/19706 Specimen: Peripheral Blood Special Requests RIGHT HAND Special Requests Testing performed at [facility];[address] [place] [address] RESULT NO GROWTH 6 DAYS RESULT Testing performed at [facility], [address] [place] [id number] Comment: Testing performed at [facility], [address] [place] [address] Culture, Blood [[id number]] Collected: 12/16/191924 Order Status: Completed Lab Status: Final result Updated: 12/23/19706 Specimen: Peripheral Blood Special Requests LEFT HAND Special Requests Testing performed at [facility];[address] [place] [address] RESULT NO GROWTH 6 DAYS RESULT Testing performed at [address] [address] Comment: Testing performed at [facility], [address] [place] [address] Microbiology Results (72 hrs) Procedure Component Value Units Date/Time Culture, Tissue, Smear, with Anaerobes [[id number]] Collected: 12/24/19 1020 Order Status: Sent Lab Status: In process Updated: 12/24/19 1058 Specimen: Tissue from Heart, Valve, Mitral Coronavirus (COVID-19) NAAT [[id number]] Collected: 12/24/19 0646 Order Status: Completed Lab Status: Final result Updated: 12/24/19 0749 Specimen: Tissue from Nasopharynx SARS-CoV-2, NAAT (COVID-19) NEGATIVE Comment: This test was developed and its performance characteristics determined by [email or web address]. It has not been cleared or approved by the [place] FDA. This test has been authorized by FDA under an Emergency Use Authorization (EUA). Clinicians should be advised to consider a patients signs, symptoms, history, and results of other diagnostic tests when interpreting results. Testing performed at [facility];[address] [place] [address];[place] [address] IMAGING: No new images for review today. ASSESSMENT & PLAN The patient is a 69 y.o.-year-old male with the following problems: Active Hospital Problems Diagnosis Date Noted Status post mitral valve replacement 12/24/2019 Mitral valve replaced 12/24/2019 DUNIA (acute kidney injury) 12/21/2019 Infectious endocarditis Severe protein-calorie malnutrition 12/17/2019 Acute bacterial endocarditis 12/16/2019 Diet-controlled diabetes mellitus 12/16/2019 Endocarditis of mitral valve 12/16/2019 Resolved Hospital Problems Diagnosis Date Noted Date Resolved Severe mitral regurgitation 12/24/2019 . 1.Subacute mitral valve endocarditis Large vegetation found on mitral valve withsevereeccentric regurgitation. Cardiothoracic surgery consulteddue to large size of vegetation. High risk for recurrent embolization. s/pTEE. No abscess. Repeat blood cultures x2 sets are in process, no growth so ar. Patient will be covered withintravenous ceftriaxone 2 g every 12 hours. Cardiac surgery scheduled for today.. 2. Viridans group Streptococcusbacteremia. Antibiotics as above. 3. Splenic infarcts/emboli on CT 4. Possible kidney hematogenous seeding as well per CT. 5. Very poor dentition.S/p teeth extraction. 6. Massive weight loss, secondary to #1. 7. Bilateral septic emboli to brain. Currently asymptomatic, although with some degree of cognitive impairment.With the larg e mitral valve vegetation, not surprising. There is evidence of microhemorrhage. 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 8. Pulmonary edema: Improved. Patient updated on his/her condition today. His was also updated at the bedside today. All questions answered. Discussed with attending provider: Reilly Galvan MD PhD and hospitalist service. Pt to g o to ICU postoperatively. . Alexi Noble MD, MPH Infectious Diseases 12/24/19 ehr, Chevy Aaron MD - 12/24/2019 5:50 PM PDTFormatting of this note might be different from the willie luis. [facility] Service: Cardiology Progress Note Date of Admission: 12/16/2019 BRIEF CLINICAL HISTORY: 69 y.o. male transferred from [facility] for tribal dari ral valve endocarditis with severe mitral regurgitation and evidence for septic emboli in th e spleen, liver, left kidney and brain. He had no significant medical history prior to his r ecent admissions. He reports approximately 4 months of weakness/fatigue, intermittent fevers , and weight loss of 35-40 pounds. Denies chest pain/pressure. He reported dyspnea on exer tion with occasional cough, no orthopnea, PND or lower extremity edema. He noted occasional dizziness but no lightheadedness/syncope. He initially presented to [facility] 10/31/2019 with those complaints. Laboratory evaluation was significant for elevated CRP of 80, elevated procalcitonin of 0.68, decreased TSH 0.46, and hemoglobin A1c 6.2%. Also during the course of evaluation he was found to flores ve a mild troponin elevation, peak 0.08. ECGs reviewed, initial ECG was concerning for poss ible inferior infarct, ST-T abnormalities which resolved on follow-up ECGs. An echocardiogr am showed preserved LV systolic function, diastolic dysfunction, severe eccentric MR, mild T R. Further evaluation with stress test was recommended, however he declined to do it and wa s discharged. He then presented to [facility] 12/15/2019 with altered mental stat us and fever to 104F. He was found to have multiple laboratory abnormalities including elev ated white blood cell count with bandemia, anemia with hemoglobin 8.3 (was 11.7 on 10/31/19), lactic acidosis, blood cultures x2 positive with gram-positive cocci in chains, identified as S. mitis. Chest x-ray was normal with the exception of mild cardiomegaly. CT scan of th e abdomen pelvis demonstrated low-density lesion in the spleen (with 2 satellite lesions dis ease, low-density lesion in the right lobe of the liver, and lesion in the left kidney. He was also tachycardic, initial ECG showed a regular narrow complex tachycardia, rate 167 bpm with possible inferior infarct and nonspecific ST-T abnormalities, likely PSVT. He had palpi tations with it. He was reportedly given diltiazem with decrease in his heart rate and follo w-up ECG demonstrated NSR with a rate of 97, short MN and PACs. A repeat echo at [facility] showed preserved LV systolic function with a large mobile vegetation attached to the posterior siria flet of the mitral valve with severe eccentric anterior MR. There is also a small ASD with mild dned-gy-uhdhb atrial shunting, as well as mild TR with moderate pulmonary hypertension, confirmed on ARNOLDO. He had no significant CAD on cardiac cath.. ID is following, and he is o n antibiotics, awaiting surgical MVR. He had a complete dental extraction Sunday. EVENTS OVERNIGHT: He underwent MVR surgery today with a 29 mm [place] R Epic bioprosthet ic valve. Following this, in ICU, he had a prolonged seizure, responded to IV ativan. Curr ently on vent, sedated, on Epi and Rojas drips for pressor support. Past Medical History: Diagnosis Date Diabetes mellitus (HCC) Infectious endocarditis Severe mitral regurgitation Past Surgical History: Procedure Laterality Date CARDIAC CATHERIZATION N/A 12/19/2019 Procedure: CV LHC; Surgeon: Jeet Tejeda MD; Location: [facility] CV LAB CARDIAC CATHERIZATION N/A 12/19/2019 Procedure: CV COR ANGIO; Surgeon: Jeet Tejeda MD; Location: [facility] [place] CV LAB CARDIAC CATHERIZATION Left 12/19/2019 Procedure: CV LV; Surgeon: Jeet Tejeda MD; Location: [facility] CV LAB TOOTH EXTRACTION N/A 12/20/2019 Procedure: EXTRACTION TEETH; Surgeon: Job Menjivar DMD; Location: [facility] MAIN OR Allergies Allergen Reactions Canola Oil [Vegetable Oil] GI Upset Pt states that he gets upset stomach when ingesting canola oil. Soybean Oil GI Upset Pt states he gets upset stomach when he ingests soybean oil. Medications Prior to Admission Medication Sig Dispense Refill aspirin (ASPIRIN ADULT LOW STRENGTH) 81 MG EC tablet Take 1 tablet (81 mg total) by valorie th Daily 30 tablet 0 Scheduled Medications acetaminophen 1,000 mg Oral Q8H atorvaSTATin 40 mg Oral Nightly cefTRIAXone 2 g Intravenous Q12H docusate sodium 100 mg Oral BID [START ON 12/25/2019] famotidine 20 mg Oral Daily [START ON 12/25/2019] famotidine 20 mg Intravenous Daily insulin lispro 1-16 Units Subcutaneous TID WC [START ON 12/25/2019] levETIRAcetam 500 mg Intravenous Q12H magnesium hydroxide 30 mL Oral Nightly metoprolol tartrate 12.5 mg Oral BID Continuous Infusions dexmedetomidine Stopped (12/24/19 1450) dextrose 5% and sodium chloride 0.45% 50 mL/hr at 12/24/19 1425 EPINEPHrine infusion Stopped (12/24/19 1415) insulin regular 2 Units/hr (12/24/19 1551) nitroglycerin in dextrose Stopped (12/24/19 1352) phenylephrine 40 mcg/min (12/24/19 1630) vasopressin (VASOSTRICT) infusion (shock) Stopped (12/24/19 1353) PRN Medications albumin, albuterol, aspirin, bisacodyl, calcium gluconate IVPB, dextrose, HYDROmorphone, HY DROmorphone, LORazepam, Magnesium replacement - ICU AND magnesium sulfate AND magnes ium sulfate, menthol throat lozenges, meperidine, oxyCODONE, phenol, polyethylene glycol, Po tassium replacement - ICU AND potassium chloride AND potassium chloride AND pota ssium chloride, Phosphate Replacement - ICU AND sodium phosphate IVPB AND sodium aurora sphate IVPB PHYSICAL EXAM Vital Signs: BP 92/57 | Pulse 80 | Temp 35.5 C (95.9 F) | Resp 16 | Ht 1.651 m (5' 5") | Wt 63 kg (138 lb 14.2 oz) | SpO2 100% | BMI 23.11 kg/m TELEMETRY: Ventricular paced, no underlying rhythm at present GENERAL: Ill-appearing 69 yo M in no distress. Appears approximately stated age. HEENT: Normocephalic, atraumatic. EYES: Arcus senilis (superior only), pupils constricted, not clearly reacting to light, sclerae anicteric, no xanthelsasmas MOUTH: ETT in place NECK: No JVD, lymphadenopathy, thyromegaly, bruits. Carotid pulses are 2+ bilaterally LUNGS: clear anterolaterally, with no rales, rhonchi or wheezing noted, respirations unlab ored HEART: Nondisplaced PMI, regular rate and rhythm, S1, S2 diminished. No murmurs, rubs or gallops noted. ABDOMEN: Soft, nontender, no organomegaly, masses or bruits. Bowel sounds are normal in a ll 4 quadrants. The abdominal aortic pulsation is not palpable. EXTREMITIES: No edema. Radial pulses 2+ bilaterally. Femoral pulses are 2+ bilaterally wi thout bruits. DP and PT pulses are 2+ bilaterally. SKIN: Warm and dry, capillary refill is normal, no splinter hemorrhages noted in nails, no Osler's nodes or Janeway lesions. NEUROLOGIC: Sedated, cannot assess PSYCHIATRIC: Cannot assess DATA Recent Labs Lab 12/24/19 1557 12/24/19 1328 12/24/19 0451 12/23/19 0614 12/22/19 0546 12/21/19 0502 12/20/19 0630 12/18/19 1152 NA -- 136 135 136 137 136 136 < > -- K 4.3 4.3 3.7 3.6 3.9 4.2 3.6 < > -- CL -- 106 103 101 104 103 103 < > -- CO2 -- 24 24 25 23 22* 24 < > -- BUN -- 16 17 15 17 21 14 < > -- CREA -- 1.01 1.00 1.11 1.10 1.40* 0.95 < > -- EGFR -- >60 >60 >60 >60 50* >60 < > -- GLU -- 132* 109* 118* 112* 149* 116* < > -- MG -- 3.1* -- -- -- -- -- -- -- CALCIUM -- 7.1* 8.4* 8.3* 8.0* 7.6* 8.4* < > -- TSH -- -- -- -- -- -- -- -- 1.380 < > = values in this interval not displayed. Recent Labs Lab 12/24/19 1328 12/24/19 1214 12/24/19 1140 12/24/19 1109 12/24/19 1038 12/24/19 1008 12/24/19 0451 12/23/19 0840 12/23/19 0614 12/22/19 0546 12/21/19 0502 12/20/19 0630 12/18/19 0554 WBC 41.65* -- -- -- -- -- -- 10.42 -- 11.67* 12.49* 15.85* 11.83* < > 9.59 HGB 10.8* 7.8* 7.5* 7.8* 8.2* 6.8* < > 9.0* -- 8.8* 8.9* 8.9* 9.7* < > 6.6* HCT 33.3* 23* 22* 23* 24* 20* < > 28.3* -- 28.1* 28.8* 28.2* 30.5* < > 21.6* PLT 178 -- -- -- -- -- -- 344 -- 320 305 272 295 < > 319 INR 1.3 -- -- -- -- -- -- -- 1.1 -- -- -- -- -- 1.0 < > = values in this interval not displayed. BLOOD C&S: + for Clayton hernandes BRAIN MRI (12/18/19): 1. An 8 x 8 x 11 mm ring enhancing lesion, image 68 series 11, in the right parieto-occipit al junction near the cortical surface. This may represent a septic embolus or simple the enh ancement of a subacute infarct. 2. 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 CERTIFIED HISTOLOGIC TECHNICIAN territory including a 1.1 x 2.6 cm infarct of t he right occipital lobe, minimal areas of subacute ischemia in the brothers matter of the inferi or right parietal lobe, a 4.5 mm infarct of the central right thalamus, a 3 mm infarct at th e right side of the posterior body the corpus callosum at the medial border of the atria the right lateral ventricle. These may represent embolic infarcts. 3. 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 4. Scalp lipoma of the left forehead measuring 38 x 31 x 7 mm. CARDIAC CATH (12/19/19): No angiographically significant coronary artery disease. Severe (4+) mitral regurgitation due to endocarditis. ECHOs (12/16/19 - [facility]): 1. EF 65%. 2. Normal RV size and function. 3. Suspicion of left to right atrial shunt by color Doppler in subcostal view. 4. Large echodense mass attached to the posterior leaflet of the mitral valve, highly mobil e, measuring 2.5 x 1.4 x 1.6 cm consistent with vegetation, with severe eccentric anterior m itral regurgitation. 5. Mild tricuspid regurgitation with moderate pulmonary hypertension. 6. No evidence of pericardial effusion. (10/31/19 - [facility]): EF 55-60%. Impaired relaxation compatible with diastolic dysfunction (reversed E/A ratio). Mitral valve is thickened with mild annular calcification, borderline prolapse, and an eccentric jet of severe insufficiency directed towards inter-atrial septum. Structurally normal tricuspid valve with mild insufficiency and peak velocity consistent with normal pulmonary pressures. Left atrium is mildly enlarged. No previous studies available for comparison. PROBLEM LIST Principal Problem: Status post mitral valve replacement Active Problems: Acute bacterial endocarditis Diet-controlled diabetes mellitus Severe protein-calorie malnutrition Infectious endocarditis Endocarditis of mitral valve DUNIA (acute kidney injury) ASSESSMENT & PLAN 1. 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 Blood cultures x 2 positive at OSH for S. miti s, blood cultures here are negative so far. A complete dental extraction was done, as this is the likely initial source of infection. ID consulted, on IV Ceftriaxone. He underwent surgical mitral valve replacement earlier today. On vent, pressor support, sedated, cannot assess neuro status at present. Ventricular paced at present. 2. Mild troponin elevation, ECG abnormalities - without angina. There was no significant c oronary artery disease. His Aspirin can be stopped. Continue statin therapy, at 40 mg arthur y, even though he does not have CAD, for primary prevention, as his his 10 year ASCVD risk i s calculated at > 20% (high) and high dose statin therapy is indicated. 3. Anemia, acute - Hemoglobin 11.7 on 10/31/19, 8.3 on 12/15/19 labs at OSH. Hgb dropped to 6 .6 , was > 10 after transfusion of 2 units PRBCs yesterday, now decreasing, may requ mello another transfusion prior to surgery. This is ? from a combination of bone marrow suppr ession due to IE, MR-related hemolysis, likely exacerbated by hematuria when he pulled out h is [place]. Stool was negative for OB. 4. Arrhythmias: PSVT with a prolonged episode Sunday AM, nonsustained VT this AM. Montaño ge Diltiazem to Toprol XL 50 mg daily. 5. Small secundum ASD with a minimal left to right atrial shunt on echocardiogram and ARNOLDO, will be closed at the time of his MVR surgery. 6. Mild TR with pulmonary hypertension by 12/16/19 echocardiogram at [facility], most likely relate d to severe MR. This will not require surgery. 7. Poor insight/understanding due to encephalopathy, resolved, likely due to septic emboli of the brain in multiple areas. His told me that prior to his current illness, his me ntal acuity was normal. He was evaluated by Dr. Ryan, neurology, who noted his mild confusion was improving. 8. TSH 0.46, but normal free T4 (1.5). 9. Glucose intolerance - HgbA1C 6.2% on 10/31/19 admission. 10. Seizure following MVR, responded to ativan, worrisome for another cerebral septic embo lic event. Now on Keppra. Brain imaging deferred at present, but will be needed. 11. Marked leukocytosis following surgery, expected to decrease over the next few days Code Status: Full Code Sheree Rowan M S CCC-CHROMOSOMAL DISORDERS COUNSELOR - 12/24/2019 7:52 AM PDTMISSED THERAPY VISIT Speech Therapy attempted to see the following patient today: Reilly Hamm (P) Missed Visit (patient unavailable)- receiving procedure at this time. ST to check back at another time census permitting. evin Little Chaplain - 12/24/2019 6:54 AM PDTF/u continue CP support. Pt voiced being scared (tear ful), CP facilitated with med conversation expression of Pt feelings and provided comforting presence. Pt voiced he would like to see his family again, his horse Khalil and getting fernando k his ADL. A prayer of blessing for Pt's surgery was offered and accepted. Pt shared feeling emotionally better as a result of CP visit. h, Jeet Aaron MD - 12/23/2019 5:42 PM PDTFormatting of this no te might be different from the original. [facility] Service: Cardiology Progress Note Date of Admission: 12/16/2019 BRIEF CLINICAL HISTORY: 69 y.o. male transferred from [facility] for tribal dari ral valve endocarditis with severe mitral regurgitation and evidence for septic emboli in th e spleen, liver, left kidney and brain. He had no significant medical history prior to his r ecent admissions. He reports approximately 4 months of weakness/fatigue, intermittent fevers , and weight loss of 35-40 pounds. Denies chest pain/pressure. He reported dyspnea on exer tion with occasional cough, no orthopnea, PND or lower extremity edema. He noted occasional dizziness but no lightheadedness/syncope. He initially presented to [facility] 10/31/2019 with those complaints. Laboratory evaluation was significant for elevated CRP of 80, elevated procalcitonin of 0.68, decreased TSH 0.46, and hemoglobin A1c 6.2%. Also during the course of evaluation he was found to flores ve a mild troponin elevation, peak 0.08. ECGs reviewed, initial ECG was concerning for poss ible inferior infarct, ST-T abnormalities which resolved on follow-up ECGs. An echocardiogr am showed preserved LV systolic function, diastolic dysfunction, severe eccentric MR, mild T R. Further evaluation with stress test was recommended, however he declined to do it and wa s discharged. He then presented to [facility] 12/15/2019 with altered mental stat us and fever to 104F. He was found to have multiple laboratory abnormalities including elev ated white blood cell count with bandemia, anemia with hemoglobin 8.3 (was 11.7 on 10/31/19), lactic acidosis, blood cultures x2 positive with gram-positive cocci in chains, identified as S. mitis. Chest x-ray was normal with the exception of mild cardiomegaly. CT scan of th e abdomen pelvis demonstrated low-density lesion in the spleen (with 2 satellite lesions dis ease, low-density lesion in the right lobe of the liver, and lesion in the left kidney. He was also tachycardic, initial ECG showed a regular narrow complex tachycardia, rate 167 bpm with possible inferior infarct and nonspecific ST-T abnormalities, likely PSVT. He had palpi tations with it. He was reportedly given diltiazem with decrease in his heart rate and follo w-up ECG demonstrated NSR with a rate of 97, short MN and PACs. A repeat echo at [facility] showed preserved LV systolic function with a large mobile vegetation attached to the posterior siria flet of the mitral valve with severe eccentric anterior MR. There is also a small ASD with mild pyhx-jh-cvrou atrial shunting, as well as mild TR with moderate pulmonary hypertension, confirmed on ARNOLDO. He had no significant CAD on cardiac cath.. ID is following, and he is o n antibiotics, awaiting surgical MVR. EVENTS OVERNIGHT: He had a complete dental extraction Sunday. He denies pain at present . Mental status has returned to normal. Surgery scheduled for tomorrow. He expressed unde rstandable apprehension regarding this, but is ready to have it done. Past Medical History: Diagnosis Date Diabetes mellitus (HCC) Infectious endocarditis Severe mitral regurgitation Past Surgical History: Procedure Laterality Date CARDIAC CATHERIZATION N/A 12/19/2019 Procedure: CV LHC; Surgeon: Jeet Tejeda MD; Location: [facility] CV LAB CARDIAC CATHERIZATION N/A 12/19/2019 Procedure: CV COR ANGIO; Surgeon: Jeet Tejeda MD; Location: [facility] CV LAB CARDIAC CATHERIZATION Left 12/19/2019 Procedure: CV LV; Surgeon: Jeet Tejeda MD; Location: [facility] CV LAB TOOTH EXTRACTION N/A 12/20/2019 Procedure: EXTRACTION TEETH; Surgeon: Job Menjivar DMD; Location: [facility] MAIN OR Allergies Allergen Reactions Canola Oil [Vegetable Oil] GI Upset Pt states that he gets upset stomach when ingesting canola oil. Soybean Oil GI Upset Pt states he gets upset stomach when he ingests soybean oil. Medications Prior to Admission Medication Sig Dispense Refill aspirin (ASPIRIN ADULT LOW STRENGTH) 81 MG EC tablet Take 1 tablet (81 mg total) by valorie th Daily 30 tablet 0 Scheduled Medications atorvaSTATin 40 mg Oral Nightly [START ON 12/24/2019] ceFAZolin 2 g Intravenous Prior to Incision cefTRIAXone 2 g Intravenous Q12H heparin 5,000 Units Subcutaneous Q12H melatonin 3 mg Oral Nightly metoprolol succinate 50 mg Oral Daily mupirocin Both nostrils BID probiotic formula 1 capsule Oral Daily with breakfast senna 17.2 mg Oral BID Continuous Infusions lactated ringers 100 mL/hr at 12/22/19 1608 PRN Medications acetaminophen, HYDROmorphone, ondansetron, oxyCODONE, polyethylene glycol, sodium chloride (PF) 0.9% injection PHYSICAL EXAM Vital Signs: BP 121/60 | Pulse 81 | Temp 36.7 C (98.1 F) (Oral) | Resp 20 | Ht 1.651 m (5' 5") | Wt 64.2 kg (141 lb 8.6 oz) | SpO2 90% | BMI 23.55 kg/m TELEMETRY: NSR, PACs, one 6 beat run of nonsustained VT at 08:03 this AM, no further PSVT s donta Sunday GENERAL: Ill-appearing 69 yo M in no distress. Appears approximately stated age. HEENT: Normocephalic, atraumatic. EYES: PERRL, sclerae anicteric, no xanthelsasmas MOUTH: Oral mucosae moist, edentulous NECK: No JVD, lymphadenopathy, thyromegaly, bruits. Carotid pulses are 2+ bilaterally LUNGS: Mildly decreased BS at the left base, otherwise clear bilaterally, with no rales, r honchi or wheezing noted, respirations unlabored HEART: Nondisplaced PMI, regular rate and rhythm, S1, S2 normal. 3/6 blowing holosystolic murmur at the apex radiating throughout the precordium, no rubs or gallops noted. ABDOMEN: Soft, nontender, no organomegaly, masses or bruits. Bowel sounds are normal in a ll 4 quadrants. The abdominal aortic pulsation is not palpable. EXTREMITIES: No edema. Radial pulses 2+ bilaterally with a normal right Kelton test. Femor al pulses are 2+ bilaterally without bruits. DP and PT pulses are 2+ bilaterally. SKIN: Warm and dry, capillary refill is normal, no splinter hemorrhages noted in nails, no Osler's nodes or Janeway lesions. NEUROLOGIC: Awake, A&Ox3. No focal motor deficits. PSYCHIATRIC: Appropriate affect DATA Recent Labs Lab 12/23/19 0614 12/22/19 0546 12/21/19 0502 12/20/19 0630 12/19/19 0626 12/18/19 1152 12/18/19 0554 NA 136 137 136 136 138 -- 142 K 3.6 3.9 4.2 3.6 3.9 -- 3.8 CL 101 104 103 103 107 -- 111* CO2 25 23 22* 24 20* -- 23 BUN 15 17 21 14 13 -- 13 CREA 1.11 1.10 1.40* 0.95 1.08 -- 0.90 EGFR >60 >60 50* >60 >60 -- >60 GLU 118* 112* 149* 116* 113* -- 99 CALCIUM 8.3* 8.0* 7.6* 8.4* 8.9 -- 7.9* TSH -- -- -- -- -- 1.380 -- Recent Labs Lab 12/23/19 0840 12/23/19 0614 12/22/19 0546 12/21/19 0502 12/20/19 0630 12/19/19 0626 12/18/19 1751 12/18/19 0554 WBC -- 11.67* 12.49* 15.85* 11.83* 16.89* -- 9.59 HGB -- 8.8* 8.9* 8.9* 9.7* 10.5* 10.3* 6.6* HCT -- 28.1* 28.8* 28.2* 30.5* 33.6* 32.2* 21.6* PLT -- 320 305 272 295 339 -- 319 INR 1.1 -- -- -- -- -- -- 1.0 BLOOD C&S: + for Clayton hernandes BRAIN MRI (12/18/19): 1. An 8 x 8 x 11 mm ring enhancing lesion, image 68 series 11, in the right parieto-occipit al junction near the cortical surface. This may represent a septic embolus or simple the enh ancement of a subacute infarct. 2. 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 CERTIFIED HISTOLOGIC TECHNICIAN territory including a 1.1 x 2.6 cm infarct of t he right occipital lobe, minimal areas of subacute ischemia in the brothers matter of the inferi or right parietal lobe, a 4.5 mm infarct of the central right thalamus, a 3 mm infarct at th e right side of the posterior body the corpus callosum at the medial border of the atria the right lateral ventricle. These may represent embolic infarcts. 3. 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 4. Scalp lipoma of the left forehead measuring 38 x 31 x 7 mm. CARDIAC CATH (12/19/19): No angiographically significant coronary artery disease. Severe (4+) mitral regurgitation due to endocarditis. ECHOs (12/16/19 - [facility]): 1. EF 65%. 2. Normal RV size and function. 3. Suspicion of left to right atrial shunt by color Doppler in subcostal view. 4. Large echodense mass attached to the posterior leaflet of the mitral valve, highly mobil e, measuring 2.5 x 1.4 x 1.6 cm consistent with vegetation, with severe eccentric anterior m itral regurgitation. 5. Mild tricuspid regurgitation with moderate pulmonary hypertension. 6. No evidence of pericardial effusion. (10/31/19 - [facility]): EF 55-60%. Impaired relaxation compatible with diastolic dysfunction (reversed E/A ratio). Mitral valve is thickened with mild annular calcification, borderline prolapse, and an eccentric jet of severe insufficiency directed towards inter-atrial septum. Structurally normal tricuspid valve with mild insufficiency and peak velocity consistent with normal pulmonary pressures. Left atrium is mildly enlarged. No previous studies available for comparison. PROBLEM LIST Principal Problem: Acute bacterial endocarditis Active Problems: Diet-controlled diabetes mellitus Severe protein-calorie malnutrition Infectious endocarditis Severe mitral regurgitation Endocarditis of mitral valve DUNIA (acute kidney injury) ASSESSMENT & PLAN 1. 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 Blood cultures x 2 positive at OSH for S. miti s, blood cultures here are negative so far. ID consulted, on IV Ceftriaxone. He has been af ebrile since admission, but has leukocytosis with bandemia, better today. He was seen by Evelin Elder MD and Reilly Galvan MD, and will undergo surgical mitral valve replacement to raeann. A complete dental extraction was done, as this is the likely initial source of inf ection. 2. Mild troponin elevation, ECG abnormalities - without angina. There was no significant c oronary artery disease. His Aspirin can be stopped. Continue statin therapy, at 40 mg arthur y, even though he does not have CAD, for primary prevention, as his his 10 year ASCVD risk i s calculated at > 20% (high) and high dose statin therapy is indicated. 3. Anemia, acute - Hemoglobin 11.7 on 10/31/19, 8.3 on 12/15/19 labs at OSH. Hgb dropped to 6 .6 , was > 10 after transfusion of 2 units PRBCs yesterday, now decreasing, may requ mello another transfusion prior to surgery. This is ? from a combination of bone marrow suppr ession due to IE, MR-related hemolysis, likely exacerbated by hematuria when he pulled out h is [place]. Stool was negative for OB. 4. Arrhythmias: PSVT with a prolonged episode Sunday AM, nonsustained VT this AM. Montaño ge Diltiazem to Toprol XL 50 mg daily. 5. Small secundum ASD with a minimal left to right atrial shunt on echocardiogram and ARNOLDO, will be closed at the time of his MVR surgery. 6. Mild TR with pulmonary hypertension by 12/16/19 echocardiogram at [facility], most likely relate d to severe MR. This will not require surgery. 7. Poor insight/understanding due to encephalopathy, resolved, likely due to septic emboli of the brain in multiple areas. His told me that prior to his current illness, his me ntal acuity was normal. He was evaluated by Dr. Ryan, neurology, who noted his mild confusion was improving. 8. TSH 0.46, but normal free T4 (1.5). 9. Glucose intolerance - HgbA1C 6.2% on 10/31/19 admission. 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 CHANGES: Pt w/ mitral valve disease. Plan for MV replacement in morning. Pt noted recent increased fatigue, then episode of severe dehydration. Had all his teeth removed about 4 d ays ago. EXPERIENCES: He notes a sense of surprise that something has gone wrong as he hasn't been in a hospital in over 40 years. INTENTIONS: To regain his strength and vitality. RESOURCES: Strong, rugged disposition, now balanced w/ feeling anxious regarding the unkno wns r/t pending surgery. One emotional moment as he reflected on his sense of vulnerability . Strong support of (51 yrs) and family. Marginal miki factor that included desire f or pre-op prayer which was said for deep peace and well-being going into the surgery. OUTCOMES: Pt noted feeling more grounded and calm after interventions. PLAN OF CARE: Usual CVOR pt care prior to surgery, then support protocols w/ family. Post -op f/u w/ patient pending. Alexi Lerner MD - 12/23/2019 11:10 AM PDTFormatting of this note might be different fro m the original. [facility] Service: Infectious Diseases Progress Note Hospital Day: LOS: 7 days Post-Op Day: 3 Days Post-Op CC: Follow up on endocarditis. SUBJECTIVE/OVERNIGHT EVENTS Continues on iv antibiotic therapy. Denies new concerns and denies side effects. Tolerating antibiotics well. No acute events over the last 24 hours. Oxygen requirements: SpO2: 90 % on 0L/min room air Cardiac surgery scheduled for tomorrow. Patient denies new complaints. Breathing better today. Good diuresis over last 24 h. Intake/Output Summary (Last 24 hours) at 12/23/2019 1110 Last data filed at 12/23/2019 0700 Gross per 24 hour Intake 538.41 ml Output 2325 ml Net -1786.59 ml REVIEW OF SYSTEMS . GI: denies diarrhea. Skin: denies skin rash. Constitutional: denies fever and chills. Respi ratory: denies difficulty breathing. MEDICATIONS: Scheduled Meds: atorvaSTATin 40 mg Oral Nightly [START ON 12/24/2019] ceFAZolin 2 g Intravenous Prior to Incision cefTRIAXone 2 g Intravenous Q12H heparin 5,000 Units Subcutaneous Q12H melatonin 3 mg Oral Nightly metoprolol succinate 50 mg Oral Daily mupirocin Both nostrils BID probiotic formula 1 capsule Oral Daily with breakfast senna 17.2 mg Oral BID Continuous Infusions: lactated ringers 100 mL/hr at 12/22/19 1608 PRN Meds:.acetaminophen, HYDROmorphone, ondansetron, oxyCODONE, polyethylene glycol, sodium chloride (PF) 0.9% injection PHYSICAL EXAM Vital Signs: BP 134/71 | Pulse 80 | Temp 36.4 C (97.6 F) (Oral) | Resp 20 | Ht 1.651 m (5' 5") | Wt 64.2 kg (141 lb 8.6 oz) | SpO2 90% | BMI 23.55 kg/m Focused exam shows: General exam: No distress, cooperative with exam. HEENT: sclera non-icteric, no visible oral thrush Cardiovascular: regular rate and rhythm Lungs: no tachypnea, clear breath sounds. Mildly decreased at bases Abdomen: no distension, bowel sounds present Extremities/MSK: No edema, no joint effusions Skin: No lesions, normal turgor Neurologic: Awake, cranial nerves intact. Follows commands. Venous access: PIV. LABS: All labs were reviewed. Recent Results (from the past 24 hour(s)) CBC with Differential Result Value Ref Range WBC 11.67 (H) 3.80 - 11.00 K/uL Red Blood Cells 3.27 (L) 4.20 - 5.70 M/uL Hemoglobin 8.8 (L) 13.2 - 17.0 g/dL Hematocrit 28.1 (L) 39.0 - 50.0 % MCV 85.9 80.0 - 100.0 fl MCH 26.9 (L) 27.0 - 34.0 pg MCHC 31.3 (L) 32.0 - 35.5 g/dL RDW-SD 53.1 (H) 37 - 53 fl Platelet Count 320 150 - 400 K/uL MPV 9.4 fl Diff Type AUTOMATED % nRBC 0.0 0 /100WBC % Neutrophils 80.60 % IMMATURE GRANULOCYTE 0.40 % % Lymphocytes 11.90 % Monocyte % 6.40 % Eosinophils % 0.50 % Basophils % 0.20 % Neutrophils, Absolute 9.40 (H) 1.90 - 7.40 K/uL IMMATURE GRANS AB 0.05 0.00 - 0.07 K/uL Absolute Lymphocytes 1.39 1.00 - 3.90 K/uL Absolute Monocytes 0.75 0.00 - 0.80 K/uL Eosinophils, Absolute 0.06 0.00 - 0.50 K/uL Basophils, Absolute 0.02 0.00 - 0.10 K/uL Basic Metabolic Panel Result Value Ref Range Na 136 135 - 145 mmol/L K 3.6 3.5 - 4.9 mmol/L Cl 101 99 - 109 mmol/L CO2 25 23 - 32 mmol/L Anion Gap 14 5 - 20 mmol/L Glucose 118 (H) 65 - 99 mg/dL BUN 15 8 - 25 mg/dL Creatinine 1.11 0.70 - 1.30 mg/dL BUN/Creatinine Ratio 14 Calcium 8.3 (L) 8.5 - 10.5 mg/dL Estimated GFR >60 >60 mL/min/1.73m2 Protime INR Result Value Ref Range INR 1.1 Type and Screen Result Value Ref Range ABO Rh O POSITIVE Antibody Screen NEGATIVE BB BAND [id number] BB BAND Testing performed at [facility];[address] [place] [address];[place] [address] Microbiology Results (Last 14 Days by Collected Date with Culture/Sensitivity) Procedure Component Value Units Date/Time Coronavirus (COVID-19) NAAT [[id number]] Collected: 12/16/19 6848 Order Status: Completed Lab Status: Final result Updated: 12/17/1921 SARS-CoV-2, NAAT (COVID-19) NEGATIVE Comment: This test was developed and its performance characteristics determined by [email or web address]. It has not been cleared or approved by the [place] FDA. This test has been authorized by FDA under an Emergency Use Authorization (EUA). Clinicians should be advised to consider a patients signs, symptoms, history, and results of other diagnostic tests when interpreting results. Testing performed at [facility];[address] [place] [address] Coronavirus (COVID-19) NAAT [[id number]] Collected: 12/16/192135 Order Status: Canceled Lab Status: No result Specimen: Tissue from Nasopharynx Culture, Blood [[id number]] Collected: 12/16/191924 Order Status: Completed Lab Status: Final result Updated: 12/23/1907 Specimen: Peripheral Blood Special Requests RIGHT HAND Special Requests Testing performed at [facility];[address] [place] [address] RESULT NO GROWTH 6 DAYS RESULT Testing performed at [facility], [address] [place] [id number] Comment: Testing performed at [facility], [address] [place] [address] Culture, Blood [[id number]] Collected: 12/16/191924 Order Status: Completed Lab Status: Final result Updated: 12/23/19 0707 Specimen: Peripheral Blood Special Requests LEFT HAND Special Requests Testing performed at [facility];[address] [place] [address] RESULT NO GROWTH 6 DAYS RESULT Testing performed at [facility], [address] [place] [id number] Comment: Testing performed at [facility], [address] [place] [address] Microbiology Results (72 hrs) No results found for the last 72 hours. IMAGING: CXR images were reviewed. My interpretation: Pulmonary edema. ASSESSMENT & PLAN The patient is a 69 y.o.-year-old male with the following problems: Active Hospital Problems Diagnosis Date Noted DUNIA (acute kidney injury) 12/21/2019 Infectious endocarditis Severe mitral regurgitation Severe protein-calorie malnutrition 12/17/2019 Acute bacterial endocarditis 12/16/2019 Diet-controlled diabetes mellitus 12/16/2019 Endocarditis of mitral valve 12/16/2019 Resolved Hospital Problems No resolved problems to display. . 1.Subacute mitral valve endocarditis Large vegetation found on mitral valve withsevereeccentric regurgitation. Cardiothoracic surgery consulteddue to large size of vegetation. High risk for recurrent embolization. s/pTEE. No abscess. Repeat blood cultures x2 sets are in process, no growth so ar. Patient will be covered withintravenous ceftriaxone 2 g every 12 hours. Cardiac surgery scheduled for tomorrow. 2. Viridans group Streptococcusbacteremia. Antibiotics as above. 3. Splenic infarcts/emboli on CT 4. Possible kidney hematogenous seeding as well per CT. 5. Very poor dentition.S/p teeth extraction. 6. Massive weight loss, secondary to #1. 7. Bilateral septic emboli to brain. Currently asymptomatic, although with some degree of cognitive impairment.With the larg e mitral valve vegetation, not surprising. There is evidence of microhemorrhage. 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 Timing of cardiothoracic surgery to be determined by CTS specialist in view of stroke. 8. Pulmonary edema: Responded well to lasix. Off oxygen. Breathing better. Repeat CBC and CMP in the am. Patient updated on his/her condition today. Discussed with attending provider: Aki Youssef,* . Alexi Noble MD, MPH Infectious Diseases 12/23/19 Mildred Townsend MD PhD - 12/23/2019 8:14 AM PDTFormatting of this note might be different from [place]. [facility] Service: Cardiothoracic Surgery Progress Note ROOM: [address] [place] [address] Hospital Day: LOS: 7 days SUBJECTIVE Events Overnight: Mr. Hamm appears comfortable this morning. He diuresed well foll owing the IV Lasix yesterday. He denies any shortness of breath and was lying supine in bed when I spoke with him. He is recovering well from his tooth extractions. He has been afeb rile. His hemoglobin has been stable at 28 and his platelet count is stable at 320. His cr eatinine is down to 1.1. Blood cultures remain negative at 6 acute days. UOP: 2525 /24hs OBJECTIVE Vital Signs: BP 130/74 | Pulse 83 | Temp 36.4 C (97.6 F) (Oral) | Resp 20 | Ht 1.651 m (5' 5") | Wt 64.2 kg (141 lb 8.6 oz) | SpO2 90% | BMI 23.55 kg/m Current weight: Patient Vitals for the past 96 hrs: Weight 12/23/19 0707 64.2 kg (141 lb 8.6 oz) 12/21/19 0317 59.4 kg (130 lb 13.5 oz) 12/20/19 0354 59.5 kg (131 lb 2.8 oz) Admission weight: Weight: 59 kg (130 lb 1.1 oz) Physical Exam: General: Alert, oriented, in no acute distress, resting in bed Heart: RRR Diastolic murmur Lungs: CTA b/l Abdomen: Soft, nondistended, nontender Extremities: Well perfused, No LE edema Musculoskeletal: no deformities or significant abnormalities Neurological: No gross focal motor or sensory deficits Skin: No rash or lesions. DATA: Scheduled Medications atorvaSTATin 40 mg Oral Nightly cefTRIAXone 2 g Intravenous Q12H heparin 5,000 Units Subcutaneous Q12H melatonin 3 mg Oral Nightly metoprolol succinate 50 mg Oral Daily probiotic formula 1 capsule Oral Daily with breakfast senna 17.2 mg Oral BID Continuous Infusions lactated ringers 100 mL/hr at 12/22/19 1608 PRN Medications acetaminophen, HYDROmorphone, ondansetron, oxyCODONE, polyethylene glycol, sodium chloride (PF) 0.9% injection HOME MEDS: Prior to Admission medications Medication Sig Start Date End Date Taking? Authorizing Provider aspirin (ASPIRIN ADULT LOW STRENGTH) 81 MG EC tablet Take 1 tablet (81 mg total) by mouth Viv rogers 11/01/19 Denzel Pryor MD LABS: Recent Labs Lab 12/23/19 0614 12/22/19 0546 12/21/19 0502 12/20/19 0630 WBC 11.67* 12.49* 15.85* 11.83* HGB 8.8* 8.9* 8.9* 9.7* HCT 28.1* 28.8* 28.2* 30.5* PLT 320 305 272 295 MONOPCT 6.40 -- 5.50 4.30 Recent Labs Lab 12/23/19 0614 12/22/19 0546 12/21/19 0502 NA 136 137 136 K 3.6 3.9 4.2 CL 101 104 103 CO2 25 23 22* BUN 15 17 21 CALCIUM 8.3* 8.0* 7.6* Phosphorus: No results found for: PHOS No results for input(s): LABALBU in the last 168 hours. No results for input(s): MG in the last 168 hours. No results for input(s): AMYLASE in the last 168 hours. No results for input(s): PHART, PO2ART, TET8GGB, U3YUYDNI, BEART in the last 168 hours. Recent Labs Lab 12/18/19 0554 INR 1.0 Recent Labs Lab 12/18/19 1152 TSH 1.380 No results for input(s): TROPONINT in the last 168 hours. Invalid input(s): CKTOTAL, TROPONINI, CKMBINDEX PROBLEM LIST Principal Problem: Acute bacterial endocarditis Active Problems: Diet-controlled diabetes mellitus Severe protein-calorie malnutrition Infectious endocarditis Severe mitral regurgitation Endocarditis of mitral valve DUNIA (acute kidney injury) ASSESSMENT & PLAN Mr. Hamm is a 69-year-old gentleman with tribal mitral valve endocarditis with severe dari ral regurgitation and documented septic emboli to the spleen liver and left kidney as well a s embolic stroke. He has been evaluated by neurology and underwent both an MRI and a CT sca n which did not demonstrate evidence of subarachnoid hemorrhage. Conversation with neurolog y supports our plan to proceed with surgical intervention on his valve for the very large ve getation which is not yet cleared. I explained to the patient that there certainly is a sma ll risk of stroke associated with surgery but that the large vegetation could also cause a d evastating stroke or without surgery. I again reviewed with the patient the procedure of mitral valve repair or replacement and d escribed it in detail including the alternatives and accompanying benefits and risks includi ng but not limited to operative mortality stroke pneumonia renal failure infection bleeding perioperative myocardial infarction postop arrhythmias recurrent endocarditis or sternal deh iscence. The patient understands these risks and wishes to proceed with surgery. We will plan to go to the operating room tomorrow for mitral valve repair or replacement. Code Status: Full Code Reilly Galvan MD PhD FACS [facility] 12/23/2019 Gareth Villar MD - 12/23/2019 7:58 AM PDTFormatting of this note might be different from the or iginal. [facility] Service: Hospitalist Progress Note Pt: Reilly Hamm AGE/SEX: 69 y.o. male ROOM: [facility]91[facility] [place][note 2] : 1950 PCP: No Physician on file ADMIT DATE: 12/16/2019 TODAY'S DATE: 12/23/2019 Hospital Day/Hospital Course: LOS: 7 days Mr. Hamm is a 69-year-old male with no significant past medical history who originally pr [facility] on 12/14 with progressive weakness for the last few months an d intermittent fevers for the last 1 month, found to have GPC bacteremia and mitral valve en docarditis, transferred to [facility] on 12/15 for further evaluation. Further work-up has revealed splenic infarcts/emboli on CT imaging. Hospital course has been complicated by acute delir ium and anemia of unclear etiology. Infectious disease has been consulted and patient is no w on broad-spectrum antibiotics. Cardiology has been consulted and patient has had cardiac catheterization and ARNOLDO , 12/18. CT surgery has also been consulted and patient is now awaiti MV surgery later this week. SUBJECTIVE: Patient seen and examined at bedside in follow-up,Was eating his dental soft diet which devan ts to eat because he has had all his teeth pulled out, he has been afebrile, vital signs hav e been stable has not needed extra O2, denies fevers, chest pain, dyspnea. Scheduled Medications: atorvaSTATin 40 mg Oral Nightly cefTRIAXone 2 g Intravenous Q12H heparin 5,000 Units Subcutaneous Q12H melatonin 3 mg Oral Nightly metoprolol succinate 50 mg Oral Daily probiotic formula 1 capsule Oral Daily with breakfast senna 17.2 mg Oral BID Continuous Infusions None lactated ringers 100 mL/hr at 12/22/19 1608 PRN Medications acetaminophen, HYDROmorphone, ondansetron, oxyCODONE, polyethylene glycol, sodium chloride (PF) 0.9% injection Allergy: Allergies Allergen Reactions Canola Oil [Vegetable Oil] GI Upset Pt states that he gets upset stomach when ingesting canola oil. Soybean Oil GI Upset Pt states he gets upset stomach when he ingests soybean oil. OBJECTIVE: Vitals: BP 130/74 | Pulse 83 | Temp 36.4 C (97.6 F) (Oral) | Resp 20 | Ht 1.651 m (5' 5") | Wt 64.2 kg (141 lb 8.6 oz) | SpO2 90% | BMI 23.55 kg/m I&O Detailed Table: Intake/Output Summary (Last 24 hours) at 12/23/2019 0758 Last data filed at 12/23/2019 0700 Gross per 24 hour Intake 538.41 ml Output 2525 ml Net -1986.59 ml Patient Vitals for the past 96 hrs: Weight 12/23/19 0707 64.2 kg (141 lb 8.6 oz) 12/21/19 0317 59.4 kg (130 lb 13.5 oz) 12/20/19 0354 59.5 kg (131 lb 2.8 oz) Physical Examination: GEN: elderly male in no apparent distress HEAD: normocephalic EYES: no conjunctival icterus or injection CV: RR at ~70 bpm, normal S1/S2, 3/6 systolic murmur heard best at the apex with radiation to axilla RESP: faint bibasilar crackles, no wheezing, no increased work of breathing ABD: soft, NT/ND, BS+, no obvious masses/organomegaly SKIN: warm and dry, no rashes MSK: normal muscle bulk and tone PSYCH: mood is good, affect congruent NEURO: grossly non-focal LABS: BMP 136 101 15 118* 3.6 25 1.11 CaMgPhos 8.3* LFT CBC 11.67* 8.8* 320 28.1* Coag 1.0 Last labs from current encounter as of 12/23/19-07:58 PDT Recent Labs Lab 12/18/19 0554 INR 1.0 Microbiology Results (72 hrs) Procedure Component Value Units Date/Time Coronavirus (COVID-19) NAAT [[id number]] Collected: 12/16/19 2314 Order Status: Completed Lab Status: Final result Updated: 12/17/19 0022 SARS-CoV-2, NAAT (COVID-19) NEGATIVE Comment: This test was developed and its performance characteristics determined by [email or web address]. It has not been cleared or approved by the [place] FDA. This test has been authorized by FDA under an Emergency Use Authorization (EUA). Clinicians should be advised to consider a patients signs, symptoms, history, and results of other diagnostic tests when interpreting results. Testing performed at [facility];[address] [place] [id number] Culture, Blood [[id number]] Collected: 12/16/191924 Order Status: Completed Lab Status: Preliminary result Updated: 12/18/19716 Specimen: Peripheral Blood Special Requests RIGHT HAND Special Requests Testing performed at [facility];[address] [place] [address] RESULT NO GROWTH AT THIS TIME RESULT Testing performed at [facility], [address] [place] [address] Comment: Testing performed at [facility], [address] [place] [address] Culture, Blood [[id number]] Collected: 12/16/191924 Order Status: Completed Lab Status: Preliminary result Updated: 12/18/19716 Specimen: Peripheral Blood Special Requests LEFT HAND Special Requests Testing performed at [facility];[address] [place] [address] RESULT NO GROWTH AT THIS TIME RESULT Testing performed at [facility], [address] [place] [address] Comment: Testing performed at [facility], [address] [place] [address] IMAGING: Reviewed in [facility], no new results. PROBLEM LIST Principal Problem: Acute bacterial endocarditis Active Problems: Diet-controlled diabetes mellitus Severe protein-calorie malnutrition Infectious endocarditis Severe mitral regurgitation Endocarditis of mitral valve DUNIA (acute kidney injury) Resolved Problems: * No resolved hospital problems. * ASSESSMENT & PLAN MV endocarditis Admitted on 12/14 to OSH with 1 month of intermittent fevers and 4 months of fatigue. Sepsis present on admit evidenced by fever to 104F, tachycardia to 160s, lactic Acid level of 5.8. Hemodynamics now improved. CXR unremarkable. CT abdomen/pelvis showed 2 hypodense liver lesi ons and 1 hypodense left kidney lesion concerning for infarcts. Blood cultures at OSH grew v iridans group streptococcus, ones here are NGTD. Underwent cardiac cath 12/18 which did not re veal any obstructive CAD. Also underwent ARNOLDO on 12/18 revealing a 3.1 cm posterior leaflet ve getation on mitral valve, severe MR, small ASD with minimal L to R shunting and no evidence of heart L shunting. On 12/19 patient underwent dental extraction of all his teeth by Dr. Jacobo rivers as these were presumed to be initial source of infection. -CT surgery, Dr. Galvan consulted, plan for surgery with bioprosthetic valve replacement tomas orrow -cardiology, Dr. Tejeda consulted -ID, Dr. Noble consulted, continue rocephin -follow up blood cultures, 12/15: NGTD SVT At outside hospital had HRs in the 160s, resolved on diltiazem drip which was weaned off up on arrival here, now on orals. Notably patient with admit October of this year for fatigue and poor appetite with negative cardiac enzymes with recommendation for stress test however left AMA before it could be done. Prior to that hospitalization had not seen a doctor in 20 year s. -cardiology, Dr. Tejeda consulted, continue diltiazem 120 mg daily -telemetry Anemia Notably had Hgb of 11.7 on 10/31/19. Was down to 6.6 on admit. MCV normocytic. Iron panel co nsistent with anemia of chronic disease. LDH and haptoglobin normal, not consistent with hem olysis. Reportedly also recently pulled out his villa and had associated hematuria although doubt this to be sole culprit. Imaging done at OSH did not show RP bleed. FOBT negative, no likely GI source of blood loss. Thyroid studies normal. Retic count/index appropriately high suggesting good bone marrow response to anemia. -serial monitoring of H/H -pRBC transfusion if Hgb <7.0 Septic emboli to the brain Intermittent confusion over the past few days prompting brain MRI which confirmed suspicion and had multiple abnormalities as seen below: 1. An 8 x 8 x 11 mm ring enhancing lesion, image 68 series 11, in the right parieto-occipit al junction near the cortical surface. This may represent a septic embolus or simple the enh ancement of a subacute infarct. 2. 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 CERTIFIED HISTOLOGIC TECHNICIAN territory including a 1.1 x 2.6 cm infarct of t he right occipital lobe, minimal areas of subacute ischemia in the brothers matter of the inferi or right parietal lobe, a 4.5 mm infarct of the central right thalamus, a 3 mm infarct at th e right side of the posterior body the corpus callosum at the medial border of the atria the right lateral ventricle. These may represent embolic infarcts. 3. 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 4. Scalp lipoma of the left forehead measuring 38 x 31 x 7 mm. -neurology, Dr. Ryan has been consulted DUNIA -improved with IV fluids suggestive of pre-renal etiology, continue IV fluids today -notably did receive IV contrast for cardiac cath on 12/18 as well as on 12/[address] head/neck so at risk for contrast induced nephropathy -also on broad antibiotics so at risk for intrinsic renal injury from this -trend Cr, strict Is&Os, daily weights, follow electrolytes, and avoid nephrotoxins TII DM -HgA1c of 6.2% -diet controlled I attest that this clinical assessment using ASPEN criteria 1 is accurate for this patient and supports that as a medical diagnosis. A specific nutrition treatment plan will be imple mented as outlined in the registered dietitian's plan of care. Nutrition Diagnosis: Severe protein-calorie malnutrition Type, Severe: Chronic illness Weight Loss: Other (see comment) (severe wt loss of 25 lbs, 16% over 4 months.) Energy Intake: Less than or equal to 75% energy intake compared to estimated needs for grea ter than or equal to 1 month Muscle Mass: Severe depletion PPx: SQH Code status: Full Contacts: Nathalie, , , called and updated 12/21 Dispo: Depending on progress after mitral valve surgery I explained lab findings and plan of care to patient and presently at bedside and the y verbalized understanding and agreement and had no more questions for me after my interacti on with them, also told her another hospitalist will see them later. More than 35 minutes sp ent directly face to face with patient and more than 65% spent for physical examination and discussing care and counseling about patient illness with patient and relative at bedside, on chart review, coordinating care with other providers, formulating a plan of care and cha gement as well as Computerized Physician Transit Mix Operator. Dictation software, [employer], used which may contain error for similar sounding words even af ter review. Portions of this chart may have been copied from previous notes for continuity of care. Aki Youssef MD 7:58 AM PDT 12/23/2019 Portions of this chart may have been copied from previous notes for continuity of care purp ose lisia Whitfield RN - 12/22/2019 6:[id number] Noble at bedside. Pt appears to have lab ored breathing and scattered crackles in bases. Pt became very flushed in the cheek. Stat ch est x-ray ordered and complete. Pt afebrile. 1815 Pt states feeling even more warm and diaphoretic. Temp 100.2 Ice pack placed under arm s. 1845 Dr. Noble aware of chest x-ray. Order for 20 mg IV lasix. Alisia Bello RN Alexi Squires MD - 12/22/2019 5:13 PM PDT [facility] Service: Infectious Diseases Progress Note Hospital Day: LOS: 6 days Post-Op Day: 2 Days Post-Op CC: Follow up on endocarditis. SUBJECTIVE/OVERNIGHT EVENTS Continues on iv antibiotic therapy. Denies new concerns and denies side effects. Tolerating antibiotics well. No acute events over the last 24 hours. Oxygen requirements: SpO2: 94 % on 0L/min room air Patient appeared to have difficulty breathing and increased work of breathing while I was e xamining him today. He denies chest pain. Intake/Output Summary (Last 24 hours) at 12/22/2019 1713 Last data filed at 12/22/2019 1543 Gross per 24 hour Intake 2518.12 ml Output 1450 ml Net 1068.12 ml REVIEW OF SYSTEMS . GI: denies diarrhea. Skin: denies skin rash. Constitutional: denies fever and chills. Respi ratory: denies difficulty breathing. MEDICATIONS: Scheduled Meds: atorvaSTATin 40 mg Oral Nightly cefTRIAXone 2 g Intravenous Q12H heparin 5,000 Units Subcutaneous Q12H melatonin 3 mg Oral Nightly metoprolol succinate 50 mg Oral Daily probiotic formula 1 capsule Oral Daily with breakfast senna 17.2 mg Oral BID Continuous Infusions: lactated ringers 100 mL/hr at 12/22/19 1608 PRN Meds:.acetaminophen, HYDROmorphone, ondansetron, oxyCODONE, polyethylene glycol, sodium chloride (PF) 0.9% injection PHYSICAL EXAM Vital Signs: BP 136/78 | Pulse 92 | Temp 37.6 C (99.6 F) (Oral) | Resp 19 | Ht 1.651 m (5' 5") | Wt 59.4 kg (130 lb 13.5 oz) | SpO2 94% | BMI 21.77 kg/m Focused exam shows: General exam: Tachypneic, no distress, cooperative with exam. HEENT: sclera non-icteric, no visible oral thrush Cardiovascular: regular rate and rhythm Lungs: Bilateral crackles Abdomen: no distension, bowel sounds present Extremities/MSK: No edema, no joint effusions Skin: No lesions, normal turgor Neurologic: Awake, cranial nerves intact. Follows commands. Venous access: PIV. LABS: All labs were reviewed. Recent Results (from the past 24 hour(s)) CBC with Differential Result Value Ref Range WBC 12.49 (H) 3.80 - 11.00 K/uL Red Blood Cells 3.35 (L) 4.20 - 5.70 M/uL Hemoglobin 8.9 (L) 13.2 - 17.0 g/dL Hematocrit 28.8 (L) 39.0 - 50.0 % MCV 86.0 80.0 - 100.0 fl MCH 26.6 (L) 27.0 - 34.0 pg MCHC 30.9 (L) 32.0 - 35.5 g/dL RDW-SD 54.1 (H) 37 - 53 fl Platelet Count 305 150 - 400 K/uL MPV 10.4 fl Diff Type MANUAL % Segmented Neutrophils 83 % % Lymphocytes 10 % % Monocytes 7 % RBC Morphology RBC AND PLT MORPHOLOGY APPEAR NORMAL Basic Metabolic Panel Result Value Ref Range Na 137 135 - 145 mmol/L K 3.9 3.5 - 4.9 mmol/L Cl 104 99 - 109 mmol/L CO2 23 23 - 32 mmol/L Anion Gap 14 5 - 20 mmol/L Glucose 112 (H) 65 - 99 mg/dL BUN 17 8 - 25 mg/dL Creatinine 1.10 0.70 - 1.30 mg/dL BUN/Creatinine Ratio 15 Calcium 8.0 (L) 8.5 - 10.5 mg/dL Estimated GFR >60 >60 mL/min/1.73m2 Microbiology Results (Last 14 Days by Collected Date with Culture/Sensitivity) Procedure Component Value Units Date/Time Coronavirus (COVID-19) NAAT [[id number]] Collected: 12/16/19 2314 Order Status: Completed Lab Status: Final result Updated: 12/17/19 0022 SARS-CoV-2, NAAT (COVID-19) NEGATIVE Comment: This test was developed and its performance characteristics determined by [email or web address]. It has not been cleared or approved by the [place] FDA. This test has been authorized by FDA under an Emergency Use Authorization (EUA). Clinicians should be advised to consider a patients signs, symptoms, history, and results of other diagnostic tests when interpreting results. Testing performed at [facility];[address] [place] [address] Coronavirus (COVID-19) NAAT [[id number]] Collected: 12/16/192135 Order Status: Canceled Lab Status: No result Specimen: Tissue from Nasopharynx Culture, Blood [[id number]] Collected: 12/16/191924 Order Status: Completed Lab Status: Preliminary result Updated: 12/18/19716 Specimen: Peripheral Blood Special Requests RIGHT HAND Special Requests Testing performed at [facility];[address] [place] [address] 15889 RESULT NO GROWTH AT THIS TIME RESULT Testing performed at [facility], [address] [place] [id number] Comment: Testing performed at [facility], [address] [place] [address] Culture, Blood [[id number]] Collected: 12/16/191924 Order Status: Completed Lab Status: Preliminary result Updated: 12/18/19716 Specimen: Peripheral Blood Special Requests LEFT HAND Special Requests Testing performed at [facility];[address] [place] [address] 50040 RESULT NO GROWTH AT THIS TIME RESULT Testing performed at [facility], [address] [place] [id number] Comment: Testing performed at [facility], [address] [place] [address] [id number] Microbiology Results (72 hrs) No results found for the last 72 hours. IMAGING: CXR images were reviewed. Images dated today. My interpretation: Stat chest x-ray was ordered. There is pulmonary edema. ASSESSMENT & PLAN The patient is a 69 y.o.-year-old male with the following problems: Active Hospital Problems Diagnosis Date Noted DUNIA (acute kidney injury) 12/21/2019 Infectious endocarditis Severe mitral regurgitation Severe protein-calorie malnutrition 12/17/2019 Acute bacterial endocarditis 12/16/2019 Diet-controlled diabetes mellitus 12/16/2019 Endocarditis of mitral valve 12/16/2019 Resolved Hospital Problems No resolved problems to display. . 1.Subacute mitral valve endocarditis Large vegetation found on mitral valve withsevereeccentric regurgitation. Cardiothoracic surgery consulteddue to large size of vegetation. High risk for recurrent embolization. s/pTEE. No abscess. Repeat blood cultures x2 sets are in process, no growth so ar. Patient will be covered withintravenous ceftriaxone 2 g every 12 hours. 2. Viridans group Streptococcusbacteremia. Antibiotics as above. 3. Splenic infarcts/emboli on CT 4. Possible kidney hematogenous seeding as well per CT. 5. Very poor dentition.S/p teeth extraction. 6. Massive weight loss, secondary to #1. 7. Bilateral septic emboli to brain. Currently asymptomatic, although with some degree of cognitive impairment.With the larg e mitral valve vegetation, not surprising. There is evidence of microhemorrhage. 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 Timing of cardiothoracic surgery to be determined by CTS specialist in view of stroke. Patient appears to be decompensating today, increased work of breathing, although maintaini ng oxygen saturation. Chest x-ray showed pulmonary edema. Contacted hospitalist service to day. 1 dose of Lasix given stat 20 mg IV. Cardiology on board. Continue current antibiotic regimen. Repeat CBC and CMP in the am. Patient updated on his/her condition today. Discussed with attending provider: Monty Major MD . Alexi Noble MD, MPH Infectious Diseases 12/22/[address] - 12/22/2019 1:10 PM PDTFormatting of this note might be different from the or iginal. NUTRITION NOTE Summary Reason For Assessment: per organizational policy( risk follow up.) Pt is POD # 2 oral surgery, needs valve replacement surgery. Pt reports his appetite remain s poor. Fluid/Beverage Intake Oral Fluids Amount: Ad jewel. Food Intake Type of Food/Meals: Current active diet order is: Diet Diet general; puree; Effective Now Amount of Food: Oral intake remains inadequate. Pt reports poor appetite this morning. Jeane mims charting of meals during admit. RN noted pt only ate a few bites of dinner on 12/20. This morning pt reports he ordered breakfast but ended up not eating it because he wasn't hungry. Nourishments: chocolate magic cups BID as mid am, mid pm snack. Pt reports he has been eati ng them at times. Nutritionally Relevant Medications Probiotic, senna. Nutrition-Focused Physical Findings Overall Appearance: Resting in bed, on room air, appears tired. Digestive System (Mouth to Rectum): CHROMOSOMAL DISORDERS COUNSELOR following. Anthropometrics Current Weight: 59.4 kg (130 lb 13.5 oz) Admit Weight: 59 kg (130 lb 1.1 oz) Biochemical Data, Medical Test, and Procedures Recent Labs 12/22/19 0546 NA 137 K 3.9 GLU 112* BUN 17 CREA 1.10 Food and Nutrition Knowledge Discussed importance of adequate kcal/protein for healing, pt verbalized understanding. Estimated Energy Needs Energy Calorie Requirements: 1770 - 2065 octavio/day, 30 - 35 kcal/kg/admit wt 59 kg Estimated Protein Needs Range Gm Protein (gm): 71 - 86 g protein/day, 1.2 - 1.5 g pro/kg/admit wt 59 kg Nutrition Diagnosis severe PEM related to inability to consume sufficient PO as evidenced by illness, pt r eports decreased appetite x 4 months, intake < 75% EER x 4 months, severe wt loss, severe mu scle loss. Recommendations Continue general diet as ordered with texture/liquids per CHROMOSOMAL DISORDERS COUNSELOR. Encourage high protein, nutr ient dense foods foods. Send chocolate magic cups TID at snack times to optimize oral intake . Consider appetite stimulant or TF if oral intake continues to be inadequate. RD staff to leonor mcgee per protocol. Nutritional Risk Required Follow Up: 3 days(8/13 H.) Jeet Keating RD,CD 12/22/2019 Problem: Malnutrition Goal: Improved Nutritional Intake Outcome: Ongoing, not progressing Note: Pt will consume at least 50% of meals/snacks/supplements. 1:10 PM PDT Monty Gunter MD - 12/22/2019 10:59 AM PDT [facility] Service: Hospitalist Progress Note Pt: Reilly Hamm AGE/SEX: 69 y.o. male ROOM: [address] [place] [address] : 1950 PCP: No Physician on file ADMIT DATE: 12/16/2019 TODAY'S DATE: 12/22/2019 Hospital Day/Hospital Course: LOS: 6 days Mr. Hamm is a 69-year-old male with no significant past medical history who originally pr esented to [facility] on 12/14 with progressive weakness for the last few months an d intermittent fevers for the last 1 month, found to have GPC bacteremia and mitral valve en docarditis, transferred to [facility] on 12/15 for further evaluation. Further work-up has revealed splenic infarcts/emboli on CT imaging. Hospital course has been complicated by acute delir ium and anemia of unclear etiology. Infectious disease has been consulted and patient is no w on broad-spectrum antibiotics. Cardiology has been consulted and is planning for cardiac catheterization and possibly ARNOLDO tomorrow, 12/18. CT surgery has also been consulted and ernst ent is now awaiting MV surgery later this week. SUBJECTIVE: He is doing well today. Hopes to continue recovering. Awaiting surgery. Denies fevers, ches t pain, dyspnea. Scheduled Medications: atorvaSTATin 40 mg Oral Nightly cefTRIAXone 2 g Intravenous Q12H heparin 5,000 Units Subcutaneous Q12H melatonin 3 mg Oral Nightly metoprolol succinate 50 mg Oral Daily probiotic formula 1 capsule Oral Daily with breakfast senna 17.2 mg Oral BID Continuous Infusions None lactated ringers 100 mL/hr at 12/21/19 0852 PRN Medications acetaminophen, HYDROmorphone, ondansetron, oxyCODONE, polyethylene glycol, sodium chloride (PF) 0.9% injection Allergy: Allergies Allergen Reactions Canola Oil [Vegetable Oil] GI Upset Pt states that he gets upset stomach when ingesting canola oil. Soybean Oil GI Upset Pt states he gets upset stomach when he ingests soybean oil. OBJECTIVE: Vitals: BP 136/83 | Pulse 98 | Temp 37 C (98.6 F) (Oral) | Resp 19 | Ht 1.651 m (5' 5") | Wt 59.4 kg (130 lb 13.5 oz) | SpO2 95% | BMI 21.77 kg/m I&O Detailed Table: Intake/Output Summary (Last 24 hours) at 12/22/2019 1059 Last data filed at 12/22/2019 0609 Gross per 24 hour Intake 2068.12 ml Output 1195 ml Net 873.12 ml Patient Vitals for the past 96 hrs: Weight 12/21/19 0317 59.4 kg (130 lb 13.5 oz) 12/20/19 0354 59.5 kg (131 lb 2.8 oz) 12/19/19 0326 59.4 kg (130 lb 15.3 oz) Physical Examination: GEN: elderly male in no apparent distress HEAD: normocephalic EYES: no conjunctival icterus or injection CV: RR at ~70 bpm, normal S1/S2, 3/6 systolic murmur heard best at the apex with radiation to axilla RESP: faint bibasilar crackles, no wheezing, no increased work of breathing ABD: soft, NT/ND, BS+, no obvious masses/organomegaly SKIN: warm and dry, no rashes MSK: normal muscle bulk and tone PSYCH: mood is good, affect congruent NEURO: grossly non-focal LABS: BMP 137 104 17 112* 3.9 23 1.10 CaMgPhos 8.0* LFT CBC 12.49* 8.9* 305 28.8* Coag 1.0 Last labs from current encounter as of 12/22/19-10:59 PDT Recent Labs Lab 12/18/19 0554 INR 1.0 Microbiology Results (72 hrs) Procedure Component Value Units Date/Time Coronavirus (COVID-19) NAAT [[id number]] Collected: 12/16/19 2319 Order Status: Completed Lab Status: Final result Updated: 12/17/1921 SARS-CoV-2, NAAT (COVID-19) NEGATIVE Comment: This test was developed and its performance characteristics determined by [employer]. It has not been cleared or approved by the [place] FDA. This test has been authorized by FDA under an Emergency Use Authorization (EUA). Clinicians should be advised to consider a patients signs, symptoms, history, and results of other diagnostic tests when interpreting results. Testing performed at [facility];[address] [place] [address]120 Culture, Blood [[id number]] Collected: 12/16/191924 Order Status: Completed Lab Status: Preliminary result Updated: 12/18/1917 Specimen: Peripheral Blood Special Requests RIGHT HAND Special Requests Testing performed at [facility];[address] [place] [address] 34672 RESULT NO GROWTH AT THIS TIME RESULT Testing performed at [facility], [address] [place] [address] [id number] Comment: Testing performed at [facility], [address] [place] [address] 079[address] Culture, Blood [[id number]] Collected: 12/16/191924 Order Status: Completed Lab Status: Preliminary result Updated: 12/18/19716 Specimen: Peripheral Blood Special Requests LEFT HAND Special Requests Testing performed at [facility];[address] [place] [address] 15092 RESULT NO GROWTH AT THIS TIME RESULT Testing performed at [facility], [address] [place] [address] 8[address]19 Comment: Testing performed at [facility], [address] [place] [address]82 IMAGING: Reviewed in EPIC, no new results. PROBLEM LIST Principal Problem: Acute bacterial endocarditis Active Problems: Diet-controlled diabetes mellitus Severe protein-calorie malnutrition Infectious endocarditis Severe mitral regurgitation Endocarditis of mitral valve DUNIA (acute kidney injury) Resolved Problems: * No resolved hospital problems. * ASSESSMENT & PLAN MV endocarditis Admitted on 12/14 to OSH with 1 month of intermittent fevers and 4 months of fatigue. Sepsis present on admit evidenced by fever to 104F, tachycardia to 160s, lactic Acid level of 5.8. Hemodynamics now improved. CXR unremarkable. CT abdomen/pelvis showed 2 hypodense liver lesi ons and 1 hypodense left kidney lesion concerning for infarcts. Blood cultures at OSH grew v iridans group streptococcus, ones here are NGTD. Underwent cardiac cath 12/18 which did not re veal any obstructive CAD. Also underwent ARNOLDO on 12/18 revealing a 3.1 cm posterior leaflet ve getation on mitral valve, severe MR, small ASD with minimal L to R shunting and no evidence of heart L shunting. On 12/19 patient underwent dental extraction of all his teeth by Dr. Jacobo rivers as these were presumed to be initial source of infection. -CT surgery, Dr. Galvan consulted, awaiting MV surgery -cardiology, Dr. Tejeda consulted -ID, Dr. Noble consulted, continue rocephin -follow up blood cultures, 12/15: NGTD SVT At outside hospital had HRs in the 160s, resolved on diltiazem drip which was weaned off up on arrival here, now on orals. Notably patient with admit October of this year for fatigue and poor appetite with negative cardiac enzymes with recommendation for stress test however left AMA before it could be done. Prior to that hospitalization had not seen a doctor in 20 year s. -cardiology, Dr. Tejeda consulted, continue diltiazem 120 mg daily -telemetry Anemia Notably had Hgb of 11.7 on 10/31/19. Was down to 6.6 on admit. MCV normocytic. Iron panel co nsistent with anemia of chronic disease. LDH and haptoglobin normal, not consistent with hem olysis. Reportedly also recently pulled out his villa and had associated hematuria although doubt this to be sole culprit. Imaging done at OSH did not show RP bleed. FOBT negative, no likely GI source of blood loss. Thyroid studies normal. Retic count/index appropriately high suggesting good bone marrow response to anemia. -serial monitoring of H/H -pRBC transfusion if Hgb <7.0 Septic emboli to the brain Intermittent confusion over the past few days prompting brain MRI which confirmed suspicion and had multiple abnormalities as seen below: 1. An 8 x 8 x 11 mm ring enhancing lesion, image 68 series 11, in the right parieto-occipit al junction near the cortical surface. This may represent a septic embolus or simple the enh ancement of a subacute infarct. 2. 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 CERTIFIED HISTOLOGIC TECHNICIAN territory including a 1.1 x 2.6 cm infarct of t he right occipital lobe, minimal areas of subacute ischemia in the brothers matter of the inferi or right parietal lobe, a 4.5 mm infarct of the central right thalamus, a 3 mm infarct at th e right side of the posterior body the corpus callosum at the medial border of the atria the right lateral ventricle. These may represent embolic infarcts. 3. 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 4. Scalp lipoma of the left forehead measuring 38 x 31 x 7 mm. -neurology, Dr. Ryan has been consulted DUNIA -improved with IV fluids suggestive of pre-renal etiology, continue IV fluids today -notably did receive IV contrast for cardiac cath on 12/18 as well as on 12/[address] head/neck so at risk for contrast induced nephropathy -also on broad antibiotics so at risk for intrinsic renal injury from this -trend Cr, strict Is&Os, daily weights, follow electrolytes, and avoid nephrotoxins TII DM -HgA1c of 6.2% -diet controlled I attest that this clinical assessment using ASPEN criteria 1 is accurate for this patient and supports that as a medical diagnosis. A specific nutrition treatment plan will be imple mented as outlined in the registered dietitian's plan of care. Nutrition Diagnosis: Severe protein-calorie malnutrition Type, Severe: Chronic illness Weight Loss: Other (see comment) (severe wt loss of 25 lbs, 16% over 4 months.) Energy Intake: Less than or equal to 75% energy intake compared to estimated needs for grea ter than or equal to 1 month Muscle Mass: Severe depletion PPx: SQH Code status: Full Contacts: Nathalie, , , called and updated 12/21 Dispo: pending final ID recs and MV surgery, no clear timeline at this time Monty Major MD 10:59 AM PDT 12/22/2019 Portions of this chart may have been copied from previous notes for continuity of care purp ose ehr, Jeet Aaron MD - 12/22/2019 9:25 AM PDT [facility] Service: Cardiology Progress Note Date of Admission: 12/16/2019 BRIEF CLINICAL HISTORY: 69 y.o. male transferred from [facility] for tribal dari ral valve endocarditis with severe mitral regurgitation and evidence for septic emboli in th e spleen, liver, left kidney and brain. He had no significant medical history prior to his r [facility] admissions. He reports approximately 4 months of weakness/fatigue, intermittent fevers , and weight loss of 35-40 pounds. Denies chest pain/pressure. He reported dyspnea on exer tion with occasional cough, no orthopnea, PND or lower extremity edema. He noted occasional dizziness but no lightheadedness/syncope. He initially presented to [facility] 10/31/2019 with those complaints. Laboratory evaluation was significant for elevated CRP of 80, elevated procalcitonin of 0.68, decreased TSH 0.46, and hemoglobin A1c 6.2%. Also during the course of evaluation he was found to flores ve a mild troponin elevation, peak 0.08. ECGs reviewed, initial ECG was concerning for poss ible inferior infarct, ST-T abnormalities which resolved on follow-up ECGs. An echocardiogr am showed preserved LV systolic function, diastolic dysfunction, severe eccentric MR, mild T R. Further evaluation with stress test was recommended, however he declined to do it and wa s discharged. He then presented to [facility] 12/15/2019 with altered mental stat us and fever to 104F. He was found to have multiple laboratory abnormalities including elev ated white blood cell count with bandemia, anemia with hemoglobin 8.3 (was 11.7 on 10/31/19), lactic acidosis, blood cultures x2 positive with gram-positive cocci in chains, identified as S. mitis. Chest x-ray was normal with the exception of mild cardiomegaly. CT scan of e abdomen pelvis demonstrated low-density lesion in the spleen (with 2 satellite lesions dis ease, low-density lesion in the right lobe of the liver, and lesion in the left kidney. He was also tachycardic, initial ECG showed a regular narrow complex tachycardia, rate 167 bpm with possible inferior infarct and nonspecific ST-T abnormalities, likely PSVT. He had palpi tations with it. He was reportedly given diltiazem with decrease in his heart rate and follo w-up ECG demonstrated NSR with a rate of 97, short MN and PACs. A repeat echo at [facility] showed preserved LV systolic function with a large mobile vegetation attached to the posterior siria flet of the mitral valve with severe eccentric anterior MR. There is also a small ASD with mild [id number]-sl-[id number] atrial shunting, as well as mild TR with moderate pulmonary hypertension, confirmed on ARNOLDO. He had no significant CAD on cardiac cath. ID is following, and he is on antibiotics, awaiting surgical MVR. EVENTS OVERNIGHT: He had a complete dental extraction done yesterday. He denies pain at p resent, seems sharper mentally today. Past Medical History: Diagnosis Date Diabetes mellitus (HCC) Infectious endocarditis Severe mitral regurgitation Past Surgical History: Procedure Laterality Date CARDIAC CATHERIZATION N/A 12/19/2019 Procedure: CV LHC; Surgeon: Jeet Tejeda MD; Location: [facility] CV LAB CARDIAC CATHERIZATION N/A 12/19/2019 Procedure: CV COR ANGIO; Surgeon: Jeet Tejeda MD; Location: [facility] CV LAB CARDIAC CATHERIZATION Left 12/19/2019 Procedure: CV LV; Surgeon: Jeet Tejeda MD; Location: [facility] CV LAB TOOTH EXTRACTION N/A 12/20/2019 Procedure: EXTRACTION TEETH; Surgeon: Job Menjivar DMD; Location: [facility] MAIN OR Allergies Allergen Reactions Canola Oil [Vegetable Oil] GI Upset Pt states that he gets upset stomach when ingesting canola oil. Soybean Oil GI Upset Pt states he gets upset stomach when he ingests soybean oil. Medications Prior to Admission Medication Sig Dispense Refill aspirin (ASPIRIN ADULT LOW STRENGTH) 81 MG EC tablet Take 1 tablet (81 mg total) by valorie th Daily 30 tablet 0 Scheduled Medications atorvaSTATin 40 mg Oral Nightly cefTRIAXone 2 g Intravenous Q12H dilTIAZem 120 mg Oral Daily heparin 5,000 Units Subcutaneous Q12H melatonin 3 mg Oral Nightly probiotic formula 1 capsule Oral Daily with breakfast senna 17.2 mg Oral BID Continuous Infusions lactated ringers 100 mL/hr at 12/21/19 0852 PRN Medications acetaminophen, HYDROmorphone, ondansetron, oxyCODONE, polyethylene glycol, sodium chloride (PF) 0.9% injection PHYSICAL EXAM Vital Signs: BP 136/83 | Pulse 98 | Temp 37 C (98.6 F) (Oral) | Resp 19 | Ht 1.651 m (5' 5") | Wt 59.4 kg (130 lb 13.5 oz) | SpO2 95% | BMI 21.77 kg/m TELEMETRY: NSR, PACs, one 6 beat run of nonsustained VT at 08:03 this AM, no further PSVT s donta Sunday GENERAL: Ill-appearing 69 yo M in no distress. Appears approximately stated age. HEENT: Normocephalic, atraumatic. EYES: PERRL, sclerae anicteric, no xanthelsasmas MOUTH: Oral mucosae moist, edentulous NECK: No JVD, lymphadenopathy, thyromegaly, bruits. Carotid pulses are 2+ bilaterally LUNGS: Mildly decreased BS at the left base, otherwise clear bilaterally, with no rales, r honchi or wheezing noted, respirations unlabored HEART: Nondisplaced PMI, regular rate and rhythm, S1, S2 normal. 3/6 blowing holosystolic murmur at the apex radiating throughout the precordium, no rubs or gallops noted. ABDOMEN: Soft, nontender, no organomegaly, masses or bruits. Bowel sounds are normal in a ll 4 quadrants. The abdominal aortic pulsation is not palpable. EXTREMITIES: No edema. Radial pulses 2+ bilaterally with a normal right Kelton test. Femor al pulses are 2+ bilaterally without bruits. DP and PT pulses are 2+ bilaterally. SKIN: Warm and dry, capillary refill is normal, no splinter hemorrhages noted in nails, no Osler's nodes or Janeway lesions. NEUROLOGIC: Awake, A&Ox3. No focal motor deficits. PSYCHIATRIC: Appropriate affect DATA Recent Labs Lab 12/22/19 0546 12/21/19 0502 12/20/19 0630 12/19/19 0626 12/18/19 1152 12/18/19 0554 12/17/19 0443 NA 137 136 136 138 -- 142 141 K 3.9 4.2 3.6 3.9 -- 3.8 3.6 CL 104 103 103 107 -- 111* 109 CO2 23 22* 24 20* -- 23 21* BUN 17 21 14 13 -- 13 18 CREA 1.10 1.40* 0.95 1.08 -- 0.90 0.90 EGFR >60 50* >60 >60 -- >60 >60 GLU 112* 149* 116* 113* -- 99 104* CALCIUM 8.0* 7.6* 8.4* 8.9 -- 7.9* 8.2* TSH -- -- -- -- 1.380 -- -- Recent Labs Lab 12/22/19 0546 12/21/19 0502 12/20/19 0630 12/19/19 0626 12/18/19 1751 12/18/19 0554 12/17/19 1622 WBC 12.49* 15.85* 11.83* 16.89* -- 9.59 9.24 HGB 8.9* 8.9* 9.7* 10.5* 10.3* 6.6* 7.0* HCT 28.8* 28.2* 30.5* 33.6* 32.2* 21.6* 23.1* PLT 305 272 295 339 -- 319 316 INR -- -- -- -- -- 1.0 -- BLOOD C&S: + for Clayton hernandes BRAIN MRI (12/18/19): 1. An 8 x 8 x 11 mm ring enhancing lesion, image 68 series 11, in the right parieto-occipit al junction near the cortical surface. This may represent a septic embolus or simple the enh ancement of a subacute infarct. 2. 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 CERTIFIED HISTOLOGIC TECHNICIAN territory including a 1.1 x 2.6 cm infarct of t he right occipital lobe, minimal areas of subacute ischemia in the brothers matter of the inferi or right parietal lobe, a 4.5 mm infarct of the central right thalamus, a 3 mm infarct at th e right side of the posterior body the corpus callosum at the medial border of the atria the right lateral ventricle. These may represent embolic infarcts. 3. 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 4. Scalp lipoma of the left forehead measuring 38 x 31 x 7 mm. CARDIAC CATH (12/19/19): No angiographically significant coronary artery disease. Severe (4+) mitral regurgitation due to endocarditis. ECHOs (12/16/19 - [facility]): 1. EF 65%. 2. Normal RV size and function. 3. Suspicion of left to right atrial shunt by color Doppler in subcostal view. 4. Large echodense mass attached to the posterior leaflet of the mitral valve, highly mobil e, measuring 2.5 x 1.4 x 1.6 cm consistent with vegetation, with severe eccentric anterior m itral regurgitation. 5. Mild tricuspid regurgitation with moderate pulmonary hypertension. 6. No evidence of pericardial effusion. (10/31/19 - [facility]): EF 55-60%. Impaired relaxation compatible with diastolic dysfunction (reversed E/A ratio). Mitral valve is thickened with mild annular calcification, borderline prolapse, and an eccentric jet of severe insufficiency directed towards inter-atrial septum. Structurally normal tricuspid valve with mild insufficiency and peak velocity consistent with normal pulmonary pressures. Left atrium is mildly enlarged. No previous studies available for comparison. PROBLEM LIST Principal Problem: Acute bacterial endocarditis Active Problems: Diet-controlled diabetes mellitus Severe protein-calorie malnutrition Infectious endocarditis Severe mitral regurgitation Endocarditis of mitral valve DUNIA (acute kidney injury) ASSESSMENT & PLAN 1. 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 Blood cultures x 2 positive at OSH for S. miti s, blood cultures here are negative so far. ID consulted, on IV Ceftriaxone, off Vanco and G entamycin. He has been afebrile since admission, but has leukocytosis with bandemia, better today. He was seen by Rashaad Elder MD and Reilly Galvan MD, and will undergo surgical m itral valve replacement this week - date has not yet been confirmed. A complete dental ext raction was done, as this is the likely initial source of infection. 2. Mild troponin elevation, ECG abnormalities - without angina. There was no significant c oronary artery disease. His Aspirin can be stopped. Continue statin therapy, at 40 mg arthur y, even though he does not have CAD, for primary prevention, as his his 10 year ASCVD risk i s calculated at > 20% (high) and high dose statin therapy is indicated. 3. Anemia, acute - Hemoglobin 11.7 on 10/31/19, 8.3 on 12/15/19 labs at OSH. Hgb dropped to 6 .6 , was > 10 after transfusion of 2 units PRBCs yesterday, now decreasing, may requ mello another transfusion prior to surgery. This is ? from a combination of bone marrow suppr ession due to IE, MR-related hemolysis, likely exacerbated by hematuria when he pulled out h is [place]. Stool was negative for OB. 4. Arrhythmias: PSVT with a prolonged episode Sunday AM, nonsustained VT this AM. Montaño ge Diltiazem to Toprol XL 50 mg daily. 5. Small secundum ASD with a minimal left to right atrial shunt on echocardiogram and ARNOLDO, will be closed at the time of his MVR surgery. 6. Mild TR with pulmonary hypertension by 12/16/19 echocardiogram at [facility], most likely relate d to severe MR. This will not require surgery. 7. Poor insight/understanding, resolved, likely due to septic emboli of the brain in multi ple areas. His told me that prior to his current illness, his mental acuity was normal . He was evaluated by Dr. Ryan, neurology, who noted his mild confusion was improving. 8. TSH 0.46, but normal free T4 (1.5). 9. Glucose intolerance - HgbA1C 6.2% on 10/31/19 admission. Code Status: Full Code Yesenia Wade Spe ech Pathologist - 12/22/2019 8:24 AM PDTMISSED THERAPY VISIT Speech Therapy attempted to see the following patient today: Reilly Hamm Missed Visit (treatment on hold). Per RN pt not appropriate for solids at this time due valorie th sores and removed dentition. Electronically signed by: Yesenia Reddy Speech Pathologist 12/22/2019 8:25 AM PDT lisia Burton RN - 12/21/2019 6:57 PM [id number] Assumed care of pt. Assessment unchange d from am. Pt has decreased appetite only ate a few bites of dinner. Some dried bloody drain age to mouth, no bleeding. Sutures intact. Alisia Bello RN Alexi Squires MD - 12/21/2019 1:11 PM PDT [facility] Service: Infectious Diseases Progress Note Hospital Day: LOS: 5 days Post-Op Day: 1 Day Post-Op CC: Follow up on endocarditis. SUBJECTIVE/OVERNIGHT EVENTS Continues on iv antibiotic therapy. Denies new concerns and denies side effects. Tolerating antibiotics well. No acute events over the last 24 hours. Oxygen requirements: SpO2: 96 % on 0L/min room air Develop fever postoperatively. Today for mild leukocytosis. He denies new complaints. Intake/Output Summary (Last 24 hours) at 12/21/2019 1311 Last data filed at 12/21/2019 1000 Gross per 24 hour Intake 0 ml Output 50 ml Net -50 ml REVIEW OF SYSTEMS . GI: denies diarrhea. Skin: denies skin rash. Constitutional: denies fever and chills. Respi ratory: denies difficulty breathing. MEDICATIONS: Scheduled Meds: atorvaSTATin 40 mg Oral Nightly cefTRIAXone 2 g Intravenous Q12H dilTIAZem 120 mg Oral Daily heparin 5,000 Units Subcutaneous Q12H melatonin 3 mg Oral Nightly probiotic formula 1 capsule Oral Daily with breakfast senna 17.2 mg Oral BID Continuous Infusions: lactated ringers 100 mL/hr at 12/21/19 0852 PRN Meds:.acetaminophen, HYDROmorphone, ondansetron, oxyCODONE, polyethylene glycol, sodium chloride (PF) 0.9% injection PHYSICAL EXAM Vital Signs: BP 101/60 | Pulse 87 | Temp 36.9 C (98.5 F) (Oral) | Resp 19 | Ht 1.651 m (5' 5") | Wt 59.4 kg (130 lb 13.5 oz) | SpO2 96% | BMI 21.77 kg/m Focused exam shows: General exam: No distress, cooperative with exam. HEENT: sclera non-icteric, no visible oral thrush Cardiovascular: regular rate and rhythm Lungs: no tachypnea, clear breath sounds. Mildly decreased at bases Abdomen: no distension, bowel sounds present Extremities/MSK: No edema, no joint effusions Skin: No lesions, normal turgor Neurologic: Awake, cranial nerves intact. Follows commands. Venous access: PIV. LABS: All labs were reviewed. Recent Results (from the past 24 hour(s)) CBC with Differential Result Value Ref Range WBC 15.85 (H) 3.80 - 11.00 K/uL Red Blood Cells 3.28 (L) 4.20 - 5.70 M/uL Hemoglobin 8.9 (L) 13.2 - 17.0 g/dL Hematocrit 28.2 (L) 39.0 - 50.0 % MCV 86.0 80.0 - 100.0 fl MCH 27.1 27.0 - 34.0 pg MCHC 31.6 (L) 32.0 - 35.5 g/dL RDW-SD 53.5 (H) 37 - 53 fl Platelet Count 272 150 - 400 K/uL MPV 10.4 fl Diff Type AUTOMATED % nRBC 0.0 0 /100WBC % Neutrophils 86.50 % % Lymphocytes 7.30 % Monocyte % 5.50 % Eosinophils % 0.10 % Basophils % 0.10 % IMMATURE GRANULOCYTE 0.50 % Neutrophils, Absolute 13.70 (H) 1.90 - 7.40 K/uL Absolute Lymphocytes 1.16 1.00 - 3.90 K/uL Absolute Monocytes 0.87 (H) 0.00 - 0.80 K/uL Eosinophils, Absolute 0.02 0.00 - 0.50 K/uL Basophils, Absolute 0.02 0.00 - 0.10 K/uL IMMATURE GRANS AB 0.08 (H) 0.00 - 0.07 K/uL RBC Morphology RBC AND PLT MORPHOLOGY APPEAR NORMAL Comment SLIDE SCANNED, AGREES WITH AUTOMATED RESULTS. Basic Metabolic Panel Result Value Ref Range Na 136 135 - 145 mmol/L K 4.2 3.5 - 4.9 mmol/L Cl 103 99 - 109 mmol/L CO2 22 (L) 23 - 32 mmol/L Anion Gap 15 5 - 20 mmol/L Glucose 149 (H) 65 - 99 mg/dL BUN 21 8 - 25 mg/dL Creatinine 1.40 (H) 0.70 - 1.30 mg/dL BUN/Creatinine Ratio 15 Calcium 7.6 (L) 8.5 - 10.5 mg/dL Estimated GFR 50 (L) >60 mL/min/1.73m2 Microbiology Results (Last 14 Days by Collected Date with Culture/Sensitivity) Procedure Component Value Units Date/Time Coronavirus (COVID-19) NAAT [[id number]] Collected: 12/16/19 9807 Order Status: Completed Lab Status: Final result Updated: 08/05/20 0022 SARS-CoV-2, NAAT (COVID-19) NEGATIVE Comment: This test was developed and its performance characteristics determined by [email or web address]. It has not been cleared or approved by the [place] FDA. This test has been authorized by FDA under an Emergency Use Authorization (EUA). Clinicians should be advised to consider a patients signs, symptoms, history, and results of other diagnostic tests when interpreting results. Testing performed at [facility];[address] [place] [id number] Coronavirus (COVID-19) NAAT [[id number]] Collected: 12/16/192135 Order Status: Canceled Lab Status: No result Specimen: Tissue from Nasopharynx Culture, Blood [[id number]] Collected: 12/16/191924 Order Status: Completed Lab Status: Preliminary result Updated: 12/18/19 0717 Specimen: Peripheral Blood Special Requests RIGHT HAND Special Requests Testing performed at [facility];[address] [place] [id number] RESULT NO GROWTH AT THIS TIME RESULT Testing performed at [facility], [address] [place] [id number] Comment: Testing performed at [facility], [address] [place] [id number] Culture, Blood [[id number]] Collected: 12/16/191924 Order Status: Completed Lab Status: Preliminary result Updated: 12/18/19 0717 Specimen: Peripheral Blood Special Requests LEFT HAND Special Requests Testing performed at [facility];[address] [place] [id number] RESULT NO GROWTH AT THIS TIME RESULT Testing performed at [address] [address] Comment: Testing performed at [facility], [address] [place] [id number] Microbiology Results (72 hrs) No results found for the last 72 hours. IMAGING: No new images for review today. ASSESSMENT & PLAN The patient is a 69 y.o.-year-old male with the following problems: Active Hospital Problems Diagnosis Date Noted DUNIA (acute kidney injury) 12/21/2019 Infectious endocarditis Severe mitral regurgitation Severe protein-calorie malnutrition 12/17/2019 Acute bacterial endocarditis 12/16/2019 Diet-controlled diabetes mellitus 12/16/2019 Endocarditis of mitral valve 12/16/2019 Resolved Hospital Problems No resolved problems to display. . 1.Subacute mitral valve endocarditis Large vegetation found on mitral valve with severe eccentric regurgitation. Cardiothoracic surgery consulteddue to large size of vegetation. High risk for recurrent embolization. s/pTEE. No abscess. Repeat blood cultures x2 sets are in process, no growth so ar. Patient will be covered withintravenous ceftriaxone 2 g every 12 hours. 2. Viridans group Streptococcusbacteremia. Antibiotics as above. 3. Splenic infarcts/emboli on CT 4. Possible kidney hematogenous seeding as well per CT. 5. Very poor dentition. S/p teeth extraction. 6. Massive weight loss, secondary to #1. 7. Bilateral septic emboli to brain. Currently asymptomatic, although with some degree of cognitive impairment. With the large mitral valve vegetation, not surprising. There is evidence of microhemorrhage. 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 Timing of cardiothoracic surgery to be determined by CTS specialist in view of stroke. Continue current antibiotic regimen. Patient updated on his/her condition today. Postoperative fever and leukocytosis. Monitor fever curve and repeat CBC in the morning. Discussed with attending provider: MD Alexi Jesus MD, MPH Infectious Diseases 12/21/19 ehr, Chevy Aaron MD - 12/21/2019 10:23 AM PDTFormatting of this note might be different from the willie alba [facility] Service: Cardiology Progress Note Date of Admission: 12/16/2019 BRIEF CLINICAL HISTORY: 69 y.o. 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 No significant medical history prior to recent admissions . He reports approximately 4 months of weakness/fatigue, intermittent fevers, and weight los s of 35-40 pounds. Denies chest pain/pressure. He does endorse dyspnea on exertion with oc casional cough. No orthopnea or lower extremity edema. Occasional dizziness but no lighthe adedness/syncope. He initially presented to [facility] 10/31/2019 with those complaints. Laboratory evaluation was significant for elevated CRP of 80, elevated procalcitonin of 0.68, decreased TSH 0.46, and hemoglobin A1c 6.2%. Also during the course of evaluation he was found to flores ve a mild troponin elevation, peak 0.08. ECGs reviewed, initial ECG was concerning for poss ible inferior infarct, ST-T abnormalities which resolved on follow-up ECGs. An echocardiogr am showed preserved LV systolic function, diastolic dysfunction, severe eccentric MR, mild T R. Further evaluation with stress test was recommended, however he declined to do it and wa s discharged. He then presented to [facility] 12/15/2019 with altered mental stat us and fever to 104F. He was found to have multiple laboratory abnormalities including elev ated white blood cell count with bandemia, anemia with hemoglobin 8.3 (was 11.7 on 10/31/19), lactic acidosis, blood cultures x2 positive with gram-positive cocci in chains. Chest x-ra y was normal with the exception of mild cardiomegaly. CT scan of the abdomen pelvis demonst rated low-density lesion in the spleen (with 2 satellite lesions disease, low-density lesion in the right lobe of the liver, and lesion in the left kidney. He was also tachycardic, in itial ECG showed a regular narrow complex tachycardia, rate 167 bpm with possible inferior i nfarct and nonspecific ST-T abnormalities, likely PSVT. He had palpitations with it. He was reportedly given diltiazem with decrease in his heart rate and follow-up ECG demonstrated NS R with a rate of 97, short MN and PACs. A repeat echo at [facility] showed preserved LV systolic f unction with a large mobile echodense mass attached to the posterior leaflet of the mitral v alve with severe eccentric anterior MR. There was also possible evidence for left to right atrial shunt as well as mild TR with moderate pulmonary hypertension. He was subsequently tr ansferred here. ID is following, and he is on Vanco and Gentamycin, but he will clearly need surgical MVR. He was seen Wed. by Rashaad Elder MD. He will need a ARNOLDO (to better evalu ate the possible ASD) and cardiac cath prior to surgery. EVENTS OVERNIGHT: He had a complete dental extraction done yesterday. He denies pain at p resent, seems sharper mentally today. Past Medical History: Diagnosis Date Diabetes mellitus (HCC) Infectious endocarditis Severe mitral regurgitation Past Surgical History: Procedure Laterality Date TOOTH EXTRACTION N/A 12/20/2019 Procedure: EXTRACTION TEETH; Surgeon: Job Menjivar DMD; Location: [facility] MAIN OR Allergies Allergen Reactions Canola Oil [Vegetable Oil] GI Upset Pt states that he gets upset stomach when ingesting canola oil. Soybean Oil GI Upset Pt states he gets upset stomach when he ingests soybean oil. Medications Prior to Admission Medication Sig Dispense Refill aspirin (ASPIRIN ADULT LOW STRENGTH) 81 MG EC tablet Take 1 tablet (81 mg total) by valorie th Daily 30 tablet 0 Scheduled Medications atorvaSTATin 40 mg Oral Nightly cefTRIAXone 2 g Intravenous Q12H dilTIAZem 120 mg Oral Daily heparin 5,000 Units Subcutaneous Q12H melatonin 3 mg Oral Nightly probiotic formula 1 capsule Oral Daily with breakfast Continuous Infusions lactated ringers 100 mL/hr at 12/21/19 0852 PRN Medications acetaminophen, HYDROmorphone, ondansetron, oxyCODONE, sodium chloride (PF) 0.9% injection PHYSICAL EXAM Vital Signs: BP 103/68 | Pulse 84 | Temp 36.3 C (97.4 F) (Oral) | Resp 18 | Ht 1.651 m (5' 5") | Wt 59.4 kg (130 lb 13.5 oz) | SpO2 95% | BMI 21.77 kg/m TELEMETRY: sinus tachycardia, frequent PACs, no further PSVT since Sunday AM GENERAL: Ill-appearing 69 yo M in no distress. Appears approximately stated age. HEENT: Normocephalic, atraumatic. EYES: PERRL, sclerae anicteric, no xanthelsasmas MOUTH: Oral mucosae bloody, edentulous NECK: No JVD, lymphadenopathy, thyromegaly, bruits. Carotid pulses are 2+ bilaterally LUNGS: Mildly decreased BS at the left base, otherwise clear bilaterally, with no rales, r honchi or wheezing noted, respirations unlabored HEART: Nondisplaced PMI, regular rate and rhythm, S1, S2 normal. 3/6 blowing holosystolic murmur at the apex radiating throughout the precordium, no rubs or gallops noted. ABDOMEN: Soft, nontender, no organomegaly, masses or bruits. Bowel sounds are normal in a ll 4 quadrants. The abdominal aortic pulsation is not palpable. EXTREMITIES: No edema. Radial pulses 2+ bilaterally with a normal right Kelton test. Femor al pulses are 2+ bilaterally without bruits. DP and PT pulses are 2+ bilaterally. SKIN: Warm and dry, capillary refill is normal, no splinter hemorrhages noted in nails, no Osler's nodes or Janeway lesions. NEUROLOGIC: Awake, A&Ox3. No focal motor deficits. PSYCHIATRIC: As above DATA Recent Labs Lab 12/21/19 0502 12/20/19 0630 12/19/19 0626 12/18/19 1152 12/18/19 0554 12/17/19 0443 NA 136 136 138 -- 142 141 K 4.2 3.6 3.9 -- 3.8 3.6 CL 103 103 107 -- 111* 109 CO2 22* 24 20* -- 23 21* BUN 21 14 13 -- 13 18 CREA 1.40* 0.95 1.08 -- 0.90 0.90 EGFR 50* >60 >60 -- >60 >60 GLU 149* 116* 113* -- 99 104* CALCIUM 7.6* 8.4* 8.9 -- 7.9* 8.2* TSH -- -- -- 1.380 -- -- Recent Labs Lab 12/21/19 0502 12/20/19 0630 12/19/19 0626 12/18/19 1751 12/18/19 0554 12/17/19 1622 WBC 15.85* 11.83* 16.89* -- 9.59 9.24 HGB 8.9* 9.7* 10.5* 10.3* 6.6* 7.0* HCT 28.2* 30.5* 33.6* 32.2* 21.6* 23.1* PLT 272 295 339 -- 319 316 INR -- -- -- -- 1.0 -- BLOOD C&S: + for Clayton hernandes BRAIN MRI (12/18/19): 1. An 8 x 8 x 11 mm ring enhancing lesion, image 68 series 11, in the right parieto-occipit al junction near the cortical surface. This may represent a septic embolus or simple the enh ancement of a subacute infarct. 2. 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 CERTIFIED HISTOLOGIC TECHNICIAN territory including a 1.1 x 2.6 cm infarct of t he right occipital lobe, minimal areas of subacute ischemia in the brothers matter of the inferi or right parietal lobe, a 4.5 mm infarct of the central right thalamus, a 3 mm infarct at th e right side of the posterior body the corpus callosum at the medial border of the atria the right lateral ventricle. These may represent embolic infarcts. 3. 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 4. Scalp lipoma of the left forehead measuring 38 x 31 x 7 mm. CARDIAC CATH (12/19/19): No angiographically significant coronary artery disease. Severe (4+) mitral regurgitation due to endocarditis. ECHOs (12/16/19 - [facility]): 1. EF 65%. 2. Normal RV size and function. 3. Suspicion of left to right atrial shunt by color Doppler in subcostal view. 4. Large echodense mass attached to the posterior leaflet of the mitral valve, highly mobil e, measuring 2.5 x 1.4 x 1.6 cm consistent with vegetation, with severe eccentric anterior m itral regurgitation. 5. Mild tricuspid regurgitation with moderate pulmonary hypertension. 6. No evidence of pericardial effusion. (10/31/19 - [facility]): EF 55-60%. Impaired relaxation compatible with diastolic dysfunction (reversed E/A ratio). Mitral valve is thickened with mild annular calcification, borderline prolapse, and an eccentric jet of severe insufficiency directed towards inter-atrial septum. Structurally normal tricuspid valve with mild insufficiency and peak velocity consistent with normal pulmonary pressures. Left atrium is mildly enlarged. No previous studies available for comparison. PROBLEM LIST Principal Problem: Acute bacterial endocarditis Active Problems: Diet-controlled diabetes mellitus Severe protein-calorie malnutrition Infectious endocarditis Severe mitral regurgitation Endocarditis of mitral valve DUNIA (acute kidney injury) ASSESSMENT & PLAN 1. 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 Blood cultures x 2 positive at OSH for S. miti s, blood cultures here are negative so far. ID consulted, on IV Vanco and Gentamycin. He flores s been afebrile since admission, but has leukocytosis with bandemia, increased yesterday, be tter today. He was seen by Rashaad Elder MD and Reilly Galvan MD, and will undergo surgic al mitral valve replacement this week - date has not yet been confirmed. A complete dental extraction was done, as this is the likely initial source of infection. 2. Mild troponin elevation, ECG abnormalities - without angina. There was no significant c oronary artery disease. His Aspirin can be stopped. Continue statin therapy, at 40 mg arthur y, even though he does not have CAD, for primary prevention, as his his 10 year ASCVD risk i s calculated at > 20% (high) and high dose statin therapy is indicated. 3. Anemia, acute - Hemoglobin 11.7 on 10/31/19, 8.3 on 12/15/19 labs at OSH. Hgb dropped to 6 .6 , was > 10 after transfusion of 2 units PRBCs yesterday, now decreasing, may requ mello another transfusion prior to surgery. This is ? from a combination of bone marrow suppr ession due to IE, MR-related hemolysis, likely exacerbated by hematuria when he pulled out h is [place]. Stool was negative for OB. 4. PSVT - prolonged episode this AM. Continue to monitor telemetry for recurrence, may ne ed EP evaluation if it recurs. Toprol XL 50 mg daily started. 5. Small secundum ASD with a minimal left to right atrial shunt on echocardiogram and ARNOLDO, will be closed at the time of his MVR surgery. 6. Mild TR with pulmonary hypertension by 12/16/19 echocardiogram at [facility], most likely relate d to severe MR. This will not require surgery. 7. Poor insight/understanding - suspected to be due to septic emboli of the brain in multi ple areas. His told me that prior to his current illness, his mental acuity was normal . He was evaluated by Dr. Ryan, neurology, who noted his mild confusion was improving. It se ems to have resolved today. 8. TSH 0.46, suggesting possible hyperthyroidism, will check free T4. 9. Glucose intolerance - HgbA1C 6.2% on 10/31/19 admission. Code Status: Full Code Monty Gunter MD - 0 12/21/2019 9:53 AM PDT [facility] Service: Hospitalist Progress Note Pt: Reilly Hamm AGE/SEX: 69 y.o. male ROOM: 9107/9107-01 : 1950 PCP: No Physician on file ADMIT DATE: 12/16/2019 TODAY'S DATE: 12/21/2019 Hospital Day/Hospital Course: LOS: 5 days Mr. Hamm is a 69-year-old male with no significant past medical history who originally pr esented to [facility] on 12/14 with progressive weakness for the last few months an d intermittent fevers for the last 1 month, found to have GPC bacteremia and mitral valve en docarditis, transferred to [facility] on 12/15 for further evaluation. Further work-up has revealed splenic infarcts/emboli on CT imaging. Hospital course has been complicated by acute delir ium and anemia of unclear etiology. Infectious disease has been consulted and patient is no w on broad-spectrum antibiotics. Cardiology has been consulted and is planning for cardiac catheterization and possibly ARNOLDO tomorrow, 12/18. CT surgery has also been consulted for eval uation of mitral valve and possible surgery needed. SUBJECTIVE: Reports he is doing well this morning. He no longer feels confused and states he feels lik e he burned off the medications from surgery yesterday "I was doped up yesterday". Remains on IV antibiotics. Denies fevers, chills, chest pain, dyspnea. Scheduled Medications: atorvaSTATin 40 mg Oral Nightly cefTRIAXone 2 g Intravenous Q12H dilTIAZem 120 mg Oral Daily heparin 5,000 Units Subcutaneous Q12H melatonin 3 mg Oral Nightly probiotic formula 1 capsule Oral Daily with breakfast Continuous Infusions None lactated ringers 100 mL/hr at 12/21/19 0852 PRN Medications acetaminophen, HYDROmorphone, ondansetron, oxyCODONE, sodium chloride (PF) 0.9% injection Allergy: Allergies Allergen Reactions Canola Oil [Vegetable Oil] GI Upset Pt states that he gets upset stomach when ingesting canola oil. Soybean Oil GI Upset Pt states he gets upset stomach when he ingests soybean oil. OBJECTIVE: Vitals: BP 103/68 | Pulse 84 | Temp 36.3 C (97.4 F) (Oral) | Resp 18 | Ht 1.651 m (5' 5") | Wt 59.4 kg (130 lb 13.5 oz) | SpO2 95% | BMI 21.77 kg/m I&O Detailed Table: Intake/Output Summary (Last 24 hours) at 12/21/2019 0953 Last data filed at 12/20/2019 1546 Gross per 24 hour Intake 850 ml Output 50 ml Net 800 ml Patient Vitals for the past 96 hrs: Weight 12/21/19 0317 59.4 kg (130 lb 13.5 oz) 12/20/19 0354 59.5 kg (131 lb 2.8 oz) 12/19/19 0326 59.4 kg (130 lb 15.3 oz) Physical Examination: GEN: elderly male in no apparent distress HEAD: normocephalic EYES: no conjunctival icterus or injection CV: RR at ~70 bpm, normal S1/S2, 3/6 systolic murmur heard best at the apex with radiation to axilla RESP: faint bibasilar crackles, no wheezing, no increased work of breathing ABD: soft, NT/ND, BS+, no obvious masses/organomegaly SKIN: warm and dry, no rashes MSK: normal muscle bulk and tone PSYCH: mood is good, affect congruent NEURO: grossly non-focal LABS: BMP 136 103 21 149* 4.2 22* 1.40* CaMgPhos 7.6* LFT CBC 15.85* 8.9* 272 28.2* Coag 1.0 Last labs from current encounter as of 12/21/19-09:53 PDT Recent Labs Lab 12/18/19 0554 INR 1.0 Microbiology Results (72 hrs) Procedure Component Value Units Date/Time Coronavirus (COVID-19) NAAT [[id number]] Collected: 12/16/19 2319 Order Status: Completed Lab Status: Final result Updated: 12/17/19 0022 SARS-CoV-2, NAAT (COVID-19) NEGATIVE Comment: This test was developed and its performance characteristics determined by [email or web address]. It has not been cleared or approved by the [place] FDA. This test has been authorized by FDA under an Emergency Use Authorization (EUA). Clinicians should be advised to consider a patients signs, symptoms, history, and results of other diagnostic tests when interpreting results. Testing performed at [facility];[address] [place] [address] Culture, Blood [[id number]] Collected: 12/16/191924 Order Status: Completed Lab Status: Preliminary result Updated: 12/18/19716 Specimen: Peripheral Blood Special Requests RIGHT HAND Special Requests Testing performed at [facility];[address] [place] [address] RESULT NO GROWTH AT THIS TIME RESULT Testing performed at [facility], [address] [place] [id number] Comment: Testing performed at [facility], [address] [place] [address] Culture, Blood [[id number]] Collected: 12/16/191924 Order Status: Completed Lab Status: Preliminary result Updated: 12/18/19716 Specimen: Peripheral Blood Special Requests LEFT HAND Special Requests Testing performed at [facility];[address] [place] [address] RESULT NO GROWTH AT THIS TIME RESULT Testing performed at [facility], [address] [place] [address], [place] [address] Comment: Testing performed at [facility], [address] [place] [id number] IMAGING: Reviewed in EPIC, no new results. PROBLEM LIST Principal Problem: Acute bacterial endocarditis Active Problems: Diet-controlled diabetes mellitus Severe protein-calorie malnutrition Infectious endocarditis Severe mitral regurgitation Endocarditis of mitral valve Resolved Problems: * No resolved hospital problems. * ASSESSMENT & PLAN MV endocarditis Admitted on 12/14 to OSH with 1 month of intermittent fevers and 4 months of fatigue. Sepsis present on admit evidenced by fever to 104F, tachycardia to 160s, lactic Acid level of 5.8. Hemodynamics now improved. CXR unremarkable. CT abdomen/pelvis showed 2 hypodense liver lesi ons and 1 hypodense left kidney lesion concerning for infarcts. Blood cultures at OSH grew v iridans group streptococcus, ones here are NGTD. Underwent cardiac cath 12/18 which did not re veal any obstructive CAD. Also underwent ARNOLDO on 12/18 revealing a 3.1 cm posterior leaflet ve getation on mitral valve, severe MR, small ASD with minimal L to R shunting and no evidence of heart L shunting. On 12/19 patient underwent dental extraction of all his teeth by Dr. Jacobo rivers as these were presumed to be initial source of infection. -CT surgery, Dr. Galvan consulted, awaiting MV surgery -cardiology, Dr. Tejeda consulted -ID, Dr. Noble consulted, continue rocephin -follow up blood cultures, 12/15: NGTD SVT At outside hospital had HRs in the 160s, resolved on diltiazem drip which was weaned off up on arrival here, now on orals. Notably patient with admit October of this year for fatigue and poor appetite with negative cardiac enzymes with recommendation for stress test however left AMA before it could be done. Prior to that hospitalization had not seen a doctor in 20 year s. -cardiology, Dr. Tejeda consulted, continue diltiazem 120 mg daily -telemetry Anemia Notably had Hgb of 11.7 on 10/31/19. Was down to 6.6 on admit. MCV normocytic. Iron panel co nsistent with anemia of chronic disease. LDH and haptoglobin normal, not consistent with hem olysis. Reportedly also recently pulled out his villa and had associated hematuria although doubt this to be sole culprit. Imaging done at OSH did not show RP bleed. FOBT negative, no likely GI source of blood loss. Thyroid studies normal. Retic count/index appropriately high suggesting good bone marrow response to anemia. -serial monitoring of H/H -pRBC transfusion if Hgb <7.0 Septic emboli to the brain Intermittent confusion over the past few days prompting brain MRI which confirmed suspicion and had multiple abnormalities as seen below: 1. An 8 x 8 x 11 mm ring enhancing lesion, image 68 series 11, in the right parieto-occipit al junction near the cortical surface. This may represent a septic embolus or simple the enh ancement of a subacute infarct. 2. 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 CERTIFIED HISTOLOGIC TECHNICIAN territory including a 1.1 x 2.6 cm infarct of t he right occipital lobe, minimal areas of subacute ischemia in the brothers matter of the inferi or right parietal lobe, a 4.5 mm infarct of the central right thalamus, a 3 mm infarct at th e right side of the posterior body the corpus callosum at the medial border of the atria the right lateral ventricle. These may represent embolic infarcts. 3. 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 4. Scalp lipoma of the left forehead measuring 38 x 31 x 7 mm. -neurology, Dr. Ryan has been consulted DUNIA -new, suspect pre-renal etiology given NPO status for multiple recent procedures -notably did receive IV contrast for cardiac cath on 12/18 as well as on 12/[address] head/neck so at risk for contrast induced nephropathy -also on broad antibiotics so at risk for intrinsic renal injury from this -start LR at 100 cc/hr -trend Cr, strict Is&Os, daily weights, follow electrolytes, and avoid nephrotoxins TII DM -HgA1c of 6.2% -diet controlled I attest that this clinical assessment using ASPEN criteria 1 is accurate for this patient and supports that as a medical diagnosis. A specific nutrition treatment plan will be imple mented as outlined in the registered dietitian's plan of care. Nutrition Diagnosis: Severe protein-calorie malnutrition Type, Severe: Chronic illness Weight Loss: Other (see comment) (severe wt loss of 25 lbs, 16% over 4 months.) Energy Intake: Less than or equal to 75% energy intake compared to estimated needs for grea ter than or equal to 1 month Muscle Mass: Severe depletion PPx: SQH Code status: Full Contacts: Nathalie, , , called and updated 12/20 Dispo: pending final ID recs and MV surgery, no clear timeline at this time Monty Major MD 9:53 AM PDT 12/21/2019 Portions of this chart may have been copied from previous notes for continuity of care purp ose eilly Galvan MD PhD - 12/21/2019 9:45 AM PDT [facility] Service: Cardiothoracic Surgery Progress Note ROOM: [facility]/91- SUBJECTIVE Events Overnight: Mr. Hamm is relatively comfortable this morning. He tolerated his tooth extractions yesterday quite well. He denies any acute complaints. OBJECTIVE Vital Signs: BP 103/68 | Pulse 84 | Temp 36.3 C (97.4 F) (Oral) | Resp 18 | Ht 1.651 m (5' 5") | Wt 59.4 kg (130 lb 13.5 oz) | SpO2 95% | BMI 21.77 kg/m Current weight: Patient Vitals for the past 96 hrs: Weight 12/21/19 0317 59.4 kg (130 lb 13.5 oz) 12/20/19 0354 59.5 kg (131 lb 2.8 oz) 12/19/19 0326 59.4 kg (130 lb 15.3 oz) Admission weight: Weight: 59 kg (130 lb 1.1 oz) Physical Exam: General: Alert, oriented, in no acute distress, resting in bed Heart: Diastolic murmur heard Lungs: CTA b/l Dim bases. Abdomen: Soft, nondistended, nontender Extremities: Well perfused, No LE edema Musculoskeletal: no deformities or significant abnormalities Neurological: No gross focal motor or sensory deficits DATA: Scheduled Medications atorvaSTATin 40 mg Oral Nightly cefTRIAXone 2 g Intravenous Q12H dilTIAZem 120 mg Oral Daily heparin 5,000 Units Subcutaneous Q12H melatonin 3 mg Oral Nightly probiotic formula 1 capsule Oral Daily with breakfast Continuous Infusions lactated ringers 100 mL/hr at 12/21/19 0852 PRN Medications acetaminophen, HYDROmorphone, ondansetron, oxyCODONE, sodium chloride (PF) 0.9% injection HOME MEDS: Prior to Admission medications Medication Sig Start Date End Date Taking? Authorizing Provider aspirin (ASPIRIN ADULT LOW STRENGTH) 81 MG EC tablet Take 1 tablet (81 mg total) by mouth D ken 11/01/19 Denzel Pryor MD LABS: Recent Labs Lab 12/21/19 0502 12/20/19 0630 12/19/19 0626 WBC 15.85* 11.83* 16.89* HGB 8.9* 9.7* 10.5* HCT 28.2* 30.5* 33.6* PLT 272 295 339 MONOPCT 5.50 4.30 4.90 Recent Labs Lab 12/21/19 0502 12/20/19 0630 12/19/19 0626 NA 136 136 138 K 4.2 3.6 3.9 CL 103 103 107 CO2 22* 24 20* BUN 21 14 13 CALCIUM 7.6* 8.4* 8.9 Phosphorus: No results found for: PHOS No results for input(s): LABALBU in the last 168 hours. No results for input(s): MG in the last 168 hours. No results for input(s): AMYLASE in the last 168 hours. No results for input(s): PHART, PO2ART, HDL6IDY, L4WKCVIH, BEART in the last 168 hours. Recent Labs Lab 12/18/19 0554 INR 1.0 Recent Labs Lab 12/18/19 1152 TSH 1.380 No results for input(s): TROPONINT in the last 168 hours. Invalid input(s): CKTOTAL, TROPONINI, CKMBINDEX PROBLEM LIST Principal Problem: Acute bacterial endocarditis Active Problems: Diet-controlled diabetes mellitus Severe protein-calorie malnutrition Infectious endocarditis Severe mitral regurgitation Endocarditis of mitral valve ASSESSMENT & PLAN Patient is a 69-year-old male with large vegetation associated with severe mitral regurgita tion. Will likely require surgical intervention on his mitral valve later this week. Code Status: Full Code Reilly Galvan MD PhD FACS 12/21/2019 John Lu RN - 12/20/2019 11:07 PM PDTPatient ambulated to the bathroom this evening and has requir ed minimal assistance from staff, was able to verbalize feelings of sadness about the loss o f teeth and seems to forget why he is in the hospital and why his teeth was taken out. Reori entation and support provided. It was reiterated re: his medical condition. Pt was able to t olerate thickened liquids. No other concerns at this time. WCTM. Hourly rounding uneventful. Chart check complete. Adi Goode RN Alexi Squires MD - 12/20/2019 3:18 PM PDTFormatting of this note might be different from the o riginal. [facility] Service: Infectious Diseases Progress Note Hospital Day: LOS: 4 days Post-Op Day: Day of Surgery CC: Follow up on endocarditis. SUBJECTIVE/OVERNIGHT EVENTS Continues on iv antibiotic therapy. Denies new concerns and denies side effects. Tolerating antibiotics well. No acute events over the last 24 hours. Oxygen requirements: SpO2: 93 % on 2L/min nasal cannula Taken to OR for teeth extraction. ARNOLDO with severe Afebrile. He continues to seem to always forget abiut his condition. He appears to have low memory an d understanding. Intake/Output Summary (Last 24 hours) at 12/20/2019 1518 Last data filed at 12/20/2019 1158 Gross per 24 hour Intake 850 ml Output Net 850 ml REVIEW OF SYSTEMS . GI: denies diarrhea. Skin: denies skin rash. Constitutional: denies fever and chills. Respi ratory: denies difficulty breathing. MEDICATIONS: Scheduled Meds: atorvaSTATin 40 mg Oral Nightly cefTRIAXone 2 g Intravenous Q12H dilTIAZem 120 mg Oral Daily heparin 5,000 Units Subcutaneous Q12H melatonin 3 mg Oral Nightly probiotic formula 1 capsule Oral Daily with breakfast Continuous Infusions: PRN Meds:.acetaminophen, ondansetron, oxyCODONE, sodium chloride (PF) 0.9% injection PHYSICAL EXAM Vital Signs: BP 128/65 | Pulse 97 | Temp 37.8 C (100 F) (Axillary) | Resp 30 | Ht 1.651 m (5' 5" ) | Wt 59.5 kg (131 lb 2.8 oz) | SpO2 93% | BMI 21.83 kg/m Focused exam shows: General exam: No distress, cooperative with exam. HEENT: sclera non-icteric, no visible oral thrush Cardiovascular: regular rate and rhythm Lungs: no tachypnea, clear breath sounds. Mildly decreased at bases Abdomen: no distension, bowel sounds present Extremities/MSK: No edema, no joint effusions Skin: No lesions, normal turgor Neurologic: Awake, cranial nerves intact. Follows commands. Venous access: PIV. LABS: All labs were reviewed. Recent Results (from the past 24 hour(s)) Basic Metabolic Panel Result Value Ref Range Na 136 135 - 145 mmol/L K 3.6 3.5 - 4.9 mmol/L Cl 103 99 - 109 mmol/L CO2 24 23 - 32 mmol/L Anion Gap 13 5 - 20 mmol/L Glucose 116 (H) 65 - 99 mg/dL BUN 14 8 - 25 mg/dL Creatinine 0.95 0.70 - 1.30 mg/dL BUN/Creatinine Ratio 15 Calcium 8.4 (L) 8.5 - 10.5 mg/dL Estimated GFR >60 >60 mL/min/1.73m2 CBC with Differential Result Value Ref Range WBC 11.83 (H) 3.80 - 11.00 K/uL Red Blood Cells 3.59 (L) 4.20 - 5.70 M/uL Hemoglobin 9.7 (L) 13.2 - 17.0 g/dL Hematocrit 30.5 (L) 39.0 - 50.0 % MCV 85.0 80.0 - 100.0 fl MCH 27.0 27.0 - 34.0 pg MCHC 31.8 (L) 32.0 - 35.5 g/dL RDW-SD 50.2 37 - 53 fl Platelet Count 295 150 - 400 K/uL MPV 9.5 fl Diff Type AUTOMATED % nRBC 0.0 0 /100WBC % Neutrophils 83.80 % IMMATURE GRANULOCYTE 0.70 % % Lymphocytes 9.20 % Monocyte % 4.30 % Eosinophils % 1.70 % Basophils % 0.30 % Neutrophils, Absolute 9.92 (H) 1.90 - 7.40 K/uL IMMATURE GRANS AB 0.08 (H) 0.00 - 0.07 K/uL Absolute Lymphocytes 1.09 1.00 - 3.90 K/uL Absolute Monocytes 0.51 0.00 - 0.80 K/uL Eosinophils, Absolute 0.20 0.00 - 0.50 K/uL Basophils, Absolute 0.03 0.00 - 0.10 K/uL ECG 12 lead Result Value Ref Range VENTRICULAR RATE EKG 113 BPM ATRIAL RATE 113 BPM P-R INTERVAL 126 ms QRS DURATION 80 ms Q-T INTERVAL 344 ms Q-T INTERVAL (CORRECTED) 471 ms P WAVE AXIS 55 degrees QRS AXIS -27 degrees T AXIS 52 degrees INTERPRETATION TEXT Sinus tachycardia with Premature atrial complexes Left atrial enlargement Nonspecific T wave abnormality Lateral leads Borderline ECG No previous ECGs available Confirmed by JEET TEJEDA MD ([id number]) on 12/20/2019 2:45:08 PM Microbiology Results (Last 14 Days by Collected Date with Culture/Sensitivity) Procedure Component Value Units Date/Time Coronavirus (COVID-19) NAAT [[id number]] Collected: 12/16/19 8258 Order Status: Completed Lab Status: Final result Updated: 12/17/19 0022 SARS-CoV-2, NAAT (COVID-19) NEGATIVE Comment: This test was developed and its performance characteristics determined by [email or web address]. It has not been cleared or approved by the [place] FDA. This test has been authorized by FDA under an Emergency Use Authorization (EUA). Clinicians should be advised to consider a patients signs, symptoms, history, and results of other diagnostic tests when interpreting results. Testing performed at [facility];[address] [place] [address] Coronavirus (COVID-19) NAAT [[id number]] Collected: 12/16/192135 Order Status: Canceled Lab Status: No result Specimen: Tissue from Nasopharynx Culture, Blood [[id number]] Collected: 12/16/191924 Order Status: Completed Lab Status: Preliminary result Updated: 12/18/19 0717 Specimen: Peripheral Blood Special Requests RIGHT HAND Special Requests Testing performed at [facility];[address] [place] [address] RESULT NO GROWTH AT THIS TIME RESULT Testing performed at [facility], [address] [place] [id number] Comment: Testing performed at [facility], [address] [place] [address] Culture, Blood [[id number]] Collected: 12/16/191924 Order Status: Completed Lab Status: Preliminary result Updated: 12/18/19 0717 Specimen: Peripheral Blood Special Requests LEFT HAND Special Requests Testing performed at [facility];[address] [place] [address] RESULT NO GROWTH AT THIS TIME RESULT Testing performed at [facility], [address] [place] [id number] Comment: Testing performed at [facility], [address] [place] [id number] Microbiology Results (72 hrs) No results found for the last 72 hours. IMAGING: No new images for review today. ASSESSMENT & PLAN The patient is a 69 y.o.-year-old male with the following problems: Active Hospital Problems Diagnosis Date Noted Infectious endocarditis Severe mitral regurgitation Severe protein-calorie malnutrition 12/17/2019 Acute bacterial endocarditis 12/16/2019 Diet-controlled diabetes mellitus 12/16/2019 Endocarditis of mitral valve 12/16/2019 Resolved Hospital Problems No resolved problems to display. . 1.Subacute mitral valve endocarditis Large vegetation found on mitral valve with severe eccentric regurgitation. Cardiothoracic surgery consulteddue to large size of vegetation. High risk for recurrent embolization. s/p ARNOLDO. No abscess. Repeat blood cultures x2 sets are in process, no growth so ar. Patient will be covered with intravenous ceftriaxone 2 g every 12 hours. 2. Viridans group Streptococcus bacteremia. Antibiotics as above. 3. Splenic infarcts/emboli on CT 4. Possible kidney hematogenous seeding as well per CT. 5. Very poor dentition. S/p teeth extraction. 6. Massive weight loss, secondary to #1. 7. Bilateral septic emboli to brain. Currently asymptomatic, although with some degree of cognitive impairment. With the large mitral valve vegetation, not surprising. There is evidence of microhemorrhage. 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 Timing of cardiothoracic surgery to be determined by CTS specialist in view of stroke. Continue current antibiotic regimen. Patient updated on his/her condition today. Discussed with attending provider: Monty Major MD . Alexi Noble MD, MPH Infectious Diseases 12/20/19 Bree Gunter MD - 12/20/2019 1:31 PM PDTFormatting of this note might be different from the [facility] Service: Hospitalist Progress Note Pt: Reilly Hamm AGE/SEX: 69 y.o. male ROOM: 91/9107-01 : 1950 PCP: No Physician on file ADMIT DATE: 12/16/2019 TODAY'S DATE: 12/20/2019 Hospital Day/Hospital Course: LOS: 4 days Mr. Hamm is a 69-year-old male with no significant past medical history who originally pr esented to [facility] on 12/14 with progressive weakness for the last few months an d intermittent fevers for the last 1 month, found to have GPC bacteremia and mitral valve en docarditis, transferred to [facility] on 12/15 for further evaluation. Further work-up has revealed splenic infarcts/emboli on CT imaging. Hospital course has been complicated by acute delir ium and anemia of unclear etiology. Infectious disease has been consulted and patient is no w on broad-spectrum antibiotics. Cardiology has been consulted and is planning for cardiac catheterization and possibly ARNOLDO tomorrow, 12/18. CT surgery has also been consulted for eval uation of mitral valve and possible surgery needed. SUBJECTIVE: Patient reports still feeling a bit out of it from his surgery. He is otherwise happy to h ear it went well. He denies any chest pain, dyspnea, abdominal pain. Also denies any fever s, chills. Scheduled Medications: aspirin 81 mg Oral Daily atorvaSTATin 80 mg Oral Nightly cefTRIAXone 2 g Intravenous Q12H dilTIAZem 120 mg Oral Daily heparin 5,000 Units Subcutaneous Q12H melatonin 3 mg Oral Nightly probiotic formula 1 capsule Oral Daily with breakfast Continuous Infusions None PRN Medications acetaminophen, ondansetron, sodium chloride (PF) 0.9% injection Allergy: Allergies Allergen Reactions Canola Oil [Vegetable Oil] GI Upset Pt states that he gets upset stomach when ingesting canola oil. Soybean Oil GI Upset Pt states he gets upset stomach when he ingests soybean oil. OBJECTIVE: Vitals: BP 128/65 | Pulse 97 | Temp 37.8 C (100 F) (Axillary) | Resp 30 | Ht 1.651 m (5' 5" ) | Wt 59.5 kg (131 lb 2.8 oz) | SpO2 93% | BMI 21.83 kg/m I&O Detailed Table: Intake/Output Summary (Last 24 hours) at 12/20/2019 1331 Last data filed at 12/20/2019 1158 Gross per 24 hour Intake 850 ml Output Net 850 ml Patient Vitals for the past 96 hrs: Weight 12/20/19 0354 59.5 kg (131 lb 2.8 oz) 12/19/19 0326 59.4 kg (130 lb 15.3 oz) 12/16/19 1959 59 kg (130 lb 1.1 oz) Physical Examination: GEN: elderly male in no apparent distress HEAD: normocephalic EYES: no conjunctival icterus or injection ENT: MMM, clear oropharynx NECK: supple, no cervical lymphadenpathy CV: RR at ~70 bpm, normal S1/S2, 3/6 systolic murmur heard best at the apex with radiation to axilla RESP: faint bibasilar crackles, no wheezing, no increased work of breathing ABD: soft, NT/ND, BS+, no obvious masses/organomegaly SKIN: warm and dry, no rashes MSK: normal muscle bulk and tone PSYCH: mood is good, affect congruent NEURO: grossly non-focal LABS: BMP 136 103 14 116* 3.6 24 0.95 CaMgPhos 8.4* LFT CBC 11.83* 9.7* 295 30.5* Coag 1.0 Last labs from current encounter as of 12/20/19-13:31 PDT Recent Labs Lab 12/18/19 0554 INR 1.0 Microbiology Results (72 hrs) Procedure Component Value Units Date/Time Coronavirus (COVID-19) NAAT [[id number]] Collected: 12/16/19 2314 Order Status: Completed Lab Status: Final result Updated: 12/17/19 0022 SARS-CoV-2, NAAT (COVID-19) NEGATIVE Comment: This test was developed and its performance characteristics determined by [email or web address]. It has not been cleared or approved by the [place] FDA. This test has been authorized by FDA under an Emergency Use Authorization (EUA). Clinicians should be advised to consider a patients signs, symptoms, history, and results of other diagnostic tests when interpreting results. Testing performed at [facility];[address] [place] [id number] Culture, Blood [[id number]] Collected: 12/16/191924 Order Status: Completed Lab Status: Preliminary result Updated: 12/18/19716 Specimen: Peripheral Blood Special Requests RIGHT HAND Special Requests Testing performed at [facility];[address] [place] [id number] RESULT NO GROWTH AT THIS TIME RESULT Testing performed at [facility], [address] [place] [id number] Comment: Testing performed at [facility], [address] [place] [id number] Culture, Blood [[id number]] Collected: 12/16/191924 Order Status: Completed Lab Status: Preliminary result Updated: 12/18/19716 Specimen: Peripheral Blood Special Requests LEFT HAND Special Requests Testing performed at [facility];[address] [place] [id number] RESULT NO GROWTH AT THIS TIME RESULT Testing performed at [facility], [address] [place] [address], [place] [address] Comment: Testing performed at [facility], [address], [place] [address] IMAGING: Reviewed in EPIC, no new results. PROBLEM LIST Principal Problem: Acute bacterial endocarditis Active Problems: Diet-controlled diabetes mellitus Severe protein-calorie malnutrition Infectious endocarditis Severe mitral regurgitation Endocarditis of mitral valve Resolved Problems: * No resolved hospital problems. * ASSESSMENT & PLAN MV endocarditis Admitted on 12/14 to OSH with 1 month of intermittent fevers and 4 months of fatigue. Sepsis present on admit evidenced by fever to 104F, tachycardia to 160s, lactic Acid level of 5.8. Hemodynamics now improved. CXR unremarkable. CT abdomen/pelvis showed 2 hypodense liver lesi ons and 1 hypodense left kidney lesion concerning for infarcts. Blood cultures at OSH grew v iridans group streptococcus, ones drawn here NGTD. Underwent cardiac cath 12/18 which did not reveal any obstructive CAD. Also underwent ARNOLDO on 12/18 revealing a 3.1 cm posterior leaflet vegetation on mitral valve, severe MR, small ASD with minimal L to R shunting and no evidenc e of heart L shunting. On 12/19 patient underwent dental extraction of all his teeth by Dr. Timothy villarreal as these were presumed to be initial source of infection. -CT surgery, Dr. Elder consulted, awaiting MV surgery -cardiology, Dr. Tejeda consulted -ID, Dr. Noble consulted, continue rocephin -follow up blood cultures, 12/15: NGTD SVT At outside hospital had HRs in the 160s, resolved on diltiazem drip which was weaned off up on arrival here, now on orals. Notably patient with admit October of this year for fatigue and poor appetite with negative cardiac enzymes with recommendation for stress test however left AMA before it could be done. Prior to that hospitalization had not seen a doctor in 20 year s. -cardiology, Dr. Tejeda consulted, continue diltiazem 120 mg daily -telemetry Anemia Notably had Hgb of 11.7 on 10/31/19. Was down to 6.6 on admit yesterday. MCV normocytic. Wor kup sent off including iron panel and hemolysis labs. Iron panel consistent with anemia of c hronic disease. LDH normal, not consistent with hemolysis. Reportedly also recently pulled o ut his villa and had associated hematuria although doubt this to be sole culprit. Imaging do ne at OSH did not show RP bleed. FOBT negative, no likely GI source of blood loss. Thyroid s tudies normal. Retic count/index appropriately high suggesting good bone marrow response to anemia. -serial monitoring of H/H -pRBC transfusion if Hgb <7.0 Suspected septic emboli to the brain Intermittent confusion over the past few days prompting brain MRI which confirmed suspicion and had multiple abnormalities as seen below: 1. An 8 x 8 x 11 mm ring enhancing lesion, image 68 series 11, in the right parieto-occipit al junction near the cortical surface. This may represent a septic embolus or simple the enh ancement of a subacute infarct. 2. 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 CERTIFIED HISTOLOGIC TECHNICIAN territory including a 1.1 x 2.6 cm infarct of t he right occipital lobe, minimal areas of subacute ischemia in the brothers matter of the inferi or right parietal lobe, a 4.5 mm infarct of the central right thalamus, a 3 mm infarct at th e right side of the posterior body the corpus callosum at the medial border of the atria the right lateral ventricle. These may represent embolic infarcts. 3. 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 4. Scalp lipoma of the left forehead measuring 38 x 31 x 7 mm. -neurology, Dr. Ryan has been consulted -follow up CTA head/neck TII DM -HgA1c of 6.2% -diet controlled I attest that this clinical assessment using ASPEN criteria 1 is accurate for this patient and supports that as a medical diagnosis. A specific nutrition treatment plan will be imple mented as outlined in the registered dietitian's plan of care. Nutrition Diagnosis: Severe protein-calorie malnutrition Type, Severe: Chronic illness Weight Loss: Other (see comment) (severe wt loss of 25 lbs, 16% over 4 months.) Energy Intake: Less than or equal to 75% energy intake compared to estimated needs for grea ter than or equal to 1 month Muscle Mass: Severe depletion PPx: [facility] Code status: Full Contacts: Nathalie, , , called and updated 12/19 Dispo: pending final ID recs and possible CT surgery, no clear timeline at this time Monty Major MD 1:31 PM PDT 12/20/2019 Portions of this chart may have been copied from previous notes for continuity of care purp ose Reilly Townsend MD PhD - 12/20/2019 9:19 AM PDTCardiothoracic Surgery Pt to OR today for tooth extractions Hemoglobin remains stable ARNOLDO yesterday confirms large mobile vegetation on the mitral valve Likely mitral surgery this week Reilly Galvan MD PhD eet Tejeda MD - 12/20/2019 8:36 AM PDT [facility] Service: Cardiology Progress Note Date of Admission: 12/16/2019 BRIEF CLINICAL HISTORY: 69 y.o. 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 No significant medical history prior to recent admissions . He reports approximately 4 months of weakness/fatigue, intermittent fevers, and weight los s of 35-40 pounds. Denies chest pain/pressure. He does endorse dyspnea on exertion with oc casional cough. No orthopnea or lower extremity edema. Occasional dizziness but no lighthe adedness/syncope. He initially presented to [facility] 10/31/2019 with those complaints. Laboratory evaluation was significant for elevated CRP of 80, elevated procalcitonin of 0.68, decreased TSH 0.46, and hemoglobin A1c 6.2%. Also during the course of evaluation he was found to flores ve a mild troponin elevation, peak 0.08. ECGs reviewed, initial ECG was concerning for poss ible inferior infarct, ST-T abnormalities which resolved on follow-up ECGs. An echocardiogr am showed preserved LV systolic function, diastolic dysfunction, severe eccentric MR, mild T R. Further evaluation with stress test was recommended, however he declined to do it and wa s discharged. He then presented to [facility] 12/15/2019 with altered mental stat us and fever to 104F. He was found to have multiple laboratory abnormalities including elev ated white blood cell count with bandemia, anemia with hemoglobin 8.3 (was 11.7 on 10/31/19), lactic acidosis, blood cultures x2 positive with gram-positive cocci in chains. Chest x-ra y was normal with the exception of mild cardiomegaly. CT scan of the abdomen pelvis demonst rated low-density lesion in the spleen (with 2 satellite lesions disease, low-density lesion in the right lobe of the liver, and lesion in the left kidney. He was also tachycardic, in itial ECG showed a regular narrow complex tachycardia, rate 167 bpm with possible inferior i nfarct and nonspecific ST-T abnormalities, likely PSVT. He had palpitations with it. He was reportedly given diltiazem with decrease in his heart rate and follow-up ECG demonstrated NS R with a rate of 97, short MN and PACs. A repeat echo at [facility] showed preserved LV systolic f unction with a large mobile echodense mass attached to the posterior leaflet of the mitral v alve with severe eccentric anterior MR. There was also possible evidence for left to right atrial shunt as well as mild TR with moderate pulmonary hypertension. He was subsequently tr ansferred here. ID is following, and he is on Vanco and Gentamycin, but he will clearly need surgical MVR. He was seen Wed. by Rashaad Elder MD. He will need a ARNOLDO (to better evalu ate the possible ASD) and cardiac cath prior to surgery. EVENTS OVERNIGHT: He had a complete dental extraction done earlier today. He denies pain at present, is mildly confused. Past Medical History: Diagnosis Date Diabetes mellitus (HCC) Infectious endocarditis Severe mitral regurgitation History reviewed. No pertinent surgical history. Allergies Allergen Reactions Canola Oil [Vegetable Oil] GI Upset Pt states that he gets upset stomach when ingesting canola oil. Soybean Oil GI Upset Pt states he gets upset stomach when he ingests soybean oil. Medications Prior to Admission Medication Sig Dispense Refill aspirin (ASPIRIN ADULT LOW STRENGTH) 81 MG EC tablet Take 1 tablet (81 mg total) by valorie th Daily 30 tablet 0 Scheduled Medications [JUL Hold] aspirin 81 mg Oral Daily [JUL Hold] atorvaSTATin 80 mg Oral Nightly [JUL Hold] cefTRIAXone 2 g Intravenous Q12H [JUL Hold] dilTIAZem 120 mg Oral Daily [JUL Hold] heparin 5,000 Units Subcutaneous Q12H [JUL Hold] melatonin 3 mg Oral Nightly [Jul] probiotic formula 1 capsule Oral Daily with breakfast Continuous Infusions PRN Medications [Jul] acetaminophen, lidocaine 1%-EPINEPHrine 1:100,000, nitroglycerin, [JUL Hold] ond ansetron, [JUL Hold] sodium chloride (PF) 0.9% injection PHYSICAL EXAM Vital Signs: BP 149/79 | Pulse 108 | Temp 37.3 C (99.2 F) (Oral) | Resp 18 | Ht 1.651 m (5' 5") | Wt 59.5 kg (131 lb 2.8 oz) | SpO2 100% | BMI 21.83 kg/m TELEMETRY: sinus tachycardia, frequent PACs, over 7 min run of PSVT, 185 bpm this AM GENERAL: Ill-appearing 69 yo M in no distress. Appears approximately stated age. HEENT: Normocephalic, atraumatic. EYES: PERRL, sclerae anicteric, no xanthelsasmas MOUTH: Oral mucosae bloody, edentulous NECK: No JVD, lymphadenopathy, thyromegaly, bruits. Carotid pulses are 2+ bilaterally LUNGS: Clear bilaterally, with no rales, rhonchi or wheezing noted, respirations unlabored HEART: Nondisplaced PMI, regular rate and rhythm, S1, S2 normal. 3/6 blowing holosystolic murmur at the apex radiating throughout the precordium, no rubs or gallops noted. ABDOMEN: Soft, nontender, no organomegaly, masses or bruits. Bowel sounds are normal in a ll 4 quadrants. The abdominal aortic pulsation is not palpable. EXTREMITIES: No edema. Radial pulses 2+ bilaterally with a normal right Kelton test. Femor al pulses are 2+ bilaterally without bruits. DP and PT pulses are 2+ bilaterally. SKIN: Warm and dry, capillary refill is normal, no splinter hemorrhages noted in nails, no Osler's nodes or Janeway lesions. NEUROLOGIC: Awake, mildly groggy, confused. No focal motor deficits. PSYCHIATRIC: As above DATA Recent Labs Lab 12/20/19 0630 12/19/19 0626 12/18/19 1152 12/18/19 0554 12/17/19 0443 NA 136 138 -- 142 141 K 3.6 3.9 -- 3.8 3.6 CL 103 107 -- 111* 109 CO2 24 20* -- 23 21* BUN 14 13 -- 13 18 CREA 0.95 1.08 -- 0.90 0.90 EGFR >60 >60 -- >60 >60 GLU 116* 113* -- 99 104* CALCIUM 8.4* 8.9 -- 7.9* 8.2* TSH -- -- 1.380 -- -- No results for input(s): POCTROP, TROPONINHS, TROPONIN, CK, CKMB in the last 168 hours. Recent Labs Lab 12/20/19 0630 12/19/19 0626 12/18/19 1751 12/18/19 0554 12/17/19 1622 WBC 11.83* 16.89* -- 9.59 9.24 HGB 9.7* 10.5* 10.3* 6.6* 7.0* HCT 30.5* 33.6* 32.2* 21.6* 23.1* PLT 295 339 -- 319 316 INR -- -- -- 1.0 -- BLOOD C&S: + for Step greta BRAIN MRI (12/18/19): 1. An 8 x 8 x 11 mm ring enhancing lesion, image 68 series 11, in the right parieto-occipit al junction near the cortical surface. This may represent a septic embolus or simple the enh ancement of a subacute infarct. 2. 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 CERTIFIED HISTOLOGIC TECHNICIAN territory including a 1.1 x 2.6 cm infarct of t he right occipital lobe, minimal areas of subacute ischemia in the brothers matter of the inferi or right parietal lobe, a 4.5 mm infarct of the central right thalamus, a 3 mm infarct at th e right side of the posterior body the corpus callosum at the medial border of the atria the right lateral ventricle. These may represent embolic infarcts. 3. 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 4. Scalp lipoma of the left forehead measuring 38 x 31 x 7 mm. CARDIAC CATH (12/19/19): No angiographically significant coronary artery disease. Severe (4+) mitral regurgitation due to endocarditis. ECHOs (12/16/19 - [facility]): 1. EF 65%. 2. Normal RV size and function. 3. Suspicion of left to right atrial shunt by color Doppler in subcostal view. 4. Large echodense mass attached to the posterior leaflet of the mitral valve, highly mobil e, measuring 2.5 x 1.4 x 1.6 cm consistent with vegetation, with severe eccentric anterior m itral regurgitation. 5. Mild tricuspid regurgitation with moderate pulmonary hypertension. 6. No evidence of pericardial effusion. (10/31/19 - [facility]): EF 55-60%. Impaired relaxation compatible with diastolic dysfunction (reversed E/A ratio). Mitral valve is thickened with mild annular calcification, borderline prolapse, and an eccentric jet of severe insufficiency directed towards inter-atrial septum. Structurally normal tricuspid valve with mild insufficiency and peak velocity consistent with normal pulmonary pressures. Left atrium is mildly enlarged. No previous studies available for comparison. PROBLEM LIST Principal Problem: Acute bacterial endocarditis Active Problems: Diet-controlled diabetes mellitus Severe protein-calorie malnutrition Infectious endocarditis Severe mitral regurgitation Endocarditis of mitral valve ASSESSMENT & PLAN 1. 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 Blood cultures x 2 positive at OSH for S. miti s, blood cultures here are negative so far. ID consulted, on IV Vanco and Gentamycin. He flores s been afebrile since admission, but has leukocytosis with bandemia, increased yesterday, be tter today. He was seen by Rashaad Elder MD and Reilly Galvan MD, and will undergo surgic al mitral valve replacement - date has not yet been confirmed. A complete dental extractio n was done, as this is the likely initial source of infection. 2. Mild troponin elevation, ECG abnormalities - without angina. There was no significant c oronary artery disease. His Aspirin can be stopped. Continue statin therapy, at 40 mg arthur y, even though he does not have CAD, for primary prevention, as his his 10 year ASCVD risk i s calculated at > 20% (high) and high dose statin therapy is indicated. 3. Anemia, acute - Hemoglobin 11.7 on 10/31/19, 8.3 on 12/15/19 labs at OSH. Hgb dropped to 6 .6 , was > 10 after transfusion of 2 units PRBCs yesterday, now mildly decreased aga in, Hgb 9.7. This is ? from a combination of bone marrow suppression due to IE, MR-related hemolysis, likely exacerbated by hematuria when he pulled out his Villa. Stool was negative for OB. 4. PSVT - prolonged episode this AM. Continue to monitor telemetry for recurrence, may ne ed EP evaluation if it recurs. Toprol XL 50 mg daily started. 5. Small secundum ASD with a minimal left to right atrial shunt on echocardiogram and ARNOLDO, will be closed at the time of his MVR surgery. 6. Mild TR with pulmonary hypertension by 12/16/19 echocardiogram at [facility], most likely relate d to severe MR. This will not require surgery. 7. Poor insight/understanding - suspected to be due to septic emboli of the brain in multi ple areas. His told me that prior to his current illness, his mental acuity was normal . He was evaluated by Dr. Ryan, neurology, who noted his mild confusion was improving. It se ems worse today, but he had anesthesia earlier, difficult to assess.. 8. TSH 0.46, suggesting possible hyperthyroidism, will check free T4. 9. Glucose intolerance - HgbA1C 6.2% on 10/31/19 admission. Code Status: Full Code ehr, Jeet Aaron MD - 12/19/2019 10:41 AM PDT [facility] Service: Cardiology Progress Note Date of Admission: 12/16/2019 BRIEF CLINICAL HISTORY: 69 y.o. 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 No significant medical history prior to recent admissions . He reports approximately 4 months of weakness/fatigue, intermittent fevers, and weight los s of 35-40 pounds. Denies chest pain/pressure. He does endorse dyspnea on exertion with oc casional cough. No orthopnea or lower extremity edema. Occasional dizziness but no lighthe adedness/syncope. He initially presented to [facility] 10/31/2019 with those complaints. Laboratory evaluation was significant for elevated CRP of 80, elevated procalcitonin of 0.68, decreased TSH 0.46, and hemoglobin A1c 6.2%. Also during the course of evaluation he was found to flores ve a mild troponin elevation, peak 0.08. ECGs reviewed, initial ECG was concerning for poss ible inferior infarct, ST-T abnormalities which resolved on follow-up ECGs. An echocardiogr am showed preserved LV systolic function, diastolic dysfunction, severe eccentric MR, mild T R. Further evaluation with stress test was recommended, however he declined to do it and wa s discharged. He then presented to [facility] 12/15/2019 with altered mental stat us and fever to 104F. He was found to have multiple laboratory abnormalities including elev ated white blood cell count with bandemia, anemia with hemoglobin 8.3 (was 11.7 on 10/31/19), lactic acidosis, blood cultures x2 positive with gram-positive cocci in chains. Chest x-ra y was normal with the exception of mild cardiomegaly. CT scan of the abdomen pelvis demonst rated low-density lesion in the spleen (with 2 satellite lesions disease, low-density lesion in the right lobe of the liver, and lesion in the left kidney. He was also tachycardic, in itial ECG showed a regular narrow complex tachycardia, rate 167 bpm with possible inferior i nfarct and nonspecific ST-T abnormalities, likely PSVT. He had palpitations with it. He was reportedly given diltiazem with decrease in his heart rate and follow-up ECG demonstrated NS R with a rate of 97, short MN and PACs. A repeat echo at [facility] showed preserved LV systolic f unction with a large mobile echodense mass attached to the posterior leaflet of the mitral v alve with severe eccentric anterior MR. There was also possible evidence for left to right atrial shunt as well as mild TR with moderate pulmonary hypertension. He was subsequently tr ansferred here. ID is following, and he is on Vanco and Gentamycin, but he will clearly need surgical MVR. He was seen Wed. by Rashaad Elder MD. He will need a ARNOLDO (to better evalu ate the possible ASD) and cardiac cath prior to surgery. EVENTS OVERNIGHT: He denies any symptoms at present. His H/H dropped to 6.6 / 21.6, Hgb n ow > 10 after a transfusion yesterday. He pulled out his Villa catheter with significant bl eeding 3 days ago, but bleeding has stopped. Stool was negative for OB. His brain MRI showe d evidence of septic brain embolization in multiple areas. He will undergo ARNOLDO and LHC late r today. I spoke with his via telephone yesterday to update her. Past Medical History: Diagnosis Date Diabetes mellitus (HCC) Infectious endocarditis Severe mitral regurgitation History reviewed. No pertinent surgical history. Allergies Allergen Reactions Canola Oil [Vegetable Oil] GI Upset Pt states that he gets upset stomach when ingesting canola oil. Soybean Oil GI Upset Pt states he gets upset stomach when he ingests soybean oil. Medications Prior to Admission Medication Sig Dispense Refill aspirin (ASPIRIN ADULT LOW STRENGTH) 81 MG EC tablet Take 1 tablet (81 mg total) by valorie th Daily 30 tablet 0 Scheduled Medications aspirin 81 mg Oral Daily atorvaSTATin 80 mg Oral Nightly cefTRIAXone 2 g Intravenous Q24H dilTIAZem 120 mg Oral Daily heparin 5,000 Units Subcutaneous Q12H melatonin 3 mg Oral Nightly probiotic formula 1 capsule Oral Daily with breakfast Continuous Infusions PRN Medications acetaminophen, ondansetron, sodium chloride (PF) 0.9% injection PHYSICAL EXAM Vital Signs: BP (!) 155/91 | Pulse 112 | Temp 37.2 C (98.9 F) (Oral) | Resp 20 | Ht 1.651 m (5' 5") | Wt 59.4 kg (130 lb 15.3 oz) | SpO2 95% | BMI 21.79 kg/m TELEMETRY: NSR, occasional PVCs, brief runs of PSVT I/O yesterday: 800 / 675, net -779 since admission GENERAL: Ill-appearing 69 yo M in no distress. Appears approximately stated age. HEENT: Normocephalic, atraumatic. EYES: PERRL, sclerae anicteric, no xanthelsasmas MOUTH: Oral mucosae moist, dentition adequate, no lesions noted NECK: No JVD, lymphadenopathy, thyromegaly, bruits. Carotid pulses are 2+ bilaterally LUNGS: Clear bilaterally, with no rales, rhonchi or wheezing noted, respirations unlabored HEART: Nondisplaced PMI, regular rate and rhythm, S1, S2 normal. 3/6 blowing holosystolic murmur at the apex radiating throughout the precordium, no rubs or gallops noted. ABDOMEN: Soft, nontender, no organomegaly, masses or bruits. Bowel sounds are normal in a ll 4 quadrants. The abdominal aortic pulsation is not palpable. EXTREMITIES: No edema. Radial pulses 2+ bilaterally with a normal right Kelton test. Femor al pulses are 2+ bilaterally without bruits. DP and PT pulses are 2+ bilaterally. SKIN: Warm and dry, capillary refill is normal, no splinter hemorrhages noted in nails, no Osler's nodes or Janeway lesions. NEUROLOGIC: Awake, alert and oriented x 3. No focal motor deficits. PSYCHIATRIC: Appropriate, affect appears normal, seems to have better insight into his con dition today, and is more accepting and trusting of medical recommendations. DATA Recent Labs Lab 12/19/19 0612/18/19 1152 12/18/19 0554 12/17/19 0443 NA 138 -- 142 141 K 3.9 -- 3.8 3.6 CL 107 -- 111* 109 CO2 20* -- 23 21* BUN 13 -- 13 18 CREA 1.08 -- 0.90 0.90 EGFR >60 -- >60 >60 GLU 113* -- 99 104* CALCIUM 8.9 -- 7.9* 8.2* TSH -- 1.380 -- -- No results for input(s): POCTROP, TROPONINHS, TROPONIN, CK, CKMB in the last 168 hours. Recent Labs Lab 12/19/19 0612/18/19 1751 12/18/19 0554 12/17/19 1622 WBC 16.89* -- 9.59 9.24 HGB 10.5* 10.3* 6.6* 7.0* HCT 33.6* 32.2* 21.6* 23.1* PLT 339 -- 319 316 INR -- -- 1.0 -- BLOOD C&S: + for Clayton hernandes BRAIN MRI (12/18/19): 1. An 8 x 8 x 11 mm ring enhancing lesion, image 68 series 11, in the right parieto-occipit al junction near the cortical surface. This may represent a septic embolus or simple the enh ancement of a subacute infarct. 2. 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 CERTIFIED HISTOLOGIC TECHNICIAN territory including a 1.1 x 2.6 cm infarct of t he right occipital lobe, minimal areas of subacute ischemia in the brothers matter of the inferi or right parietal lobe, a 4.5 mm infarct of the central right thalamus, a 3 mm infarct at th e right side of the posterior body the corpus callosum at the medial border of the atria the right lateral ventricle. These may represent embolic infarcts. 3. 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 4. Scalp lipoma of the left forehead measuring 38 x 31 x 7 mm. ECHOs (12/16/19 - [facility]): 1. EF 65%. 2. Normal RV size and function. 3. Suspicion of left to right atrial shunt by color Doppler in subcostal view. 4. Large echodense mass attached to the posterior leaflet of the mitral valve, highly mobil e, measuring 2.5 x 1.4 x 1.6 cm consistent with vegetation, with severe eccentric anterior m itral regurgitation. 5. Mild tricuspid regurgitation with moderate pulmonary hypertension. 6. No evidence of pericardial effusion. (10/31/19 - [facility]): EF 55-60%. Impaired relaxation compatible with diastolic dysfunction (reversed E/A ratio). Mitral valve is thickened with mild annular calcification, borderline prolapse, and an eccentric jet of severe insufficiency directed towards inter-atrial septum. Structurally normal tricuspid valve with mild insufficiency and peak velocity consistent with normal pulmonary pressures. Left atrium is mildly enlarged. No previous studies available for comparison. PROBLEM LIST Principal Problem: Acute bacterial endocarditis Active Problems: Diet-controlled diabetes mellitus Severe protein-calorie malnutrition Infectious endocarditis Severe mitral regurgitation Endocarditis of mitral valve ASSESSMENT & PLAN 1. 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 Blood cultures x 2 positive at OSH for S. miti s, blood cultures here are negative so far. ID consulted, on IV Vanco and Gentamycin. He flores s been afebrile since admission, but has leukocytosis with bandemia, increased today. He wa s seen by Rashaad Elder MD and should undergo surgical mitral valve replacement. Prior to this, he will need a ARNOLDO to evaluate the possible ASD and cardiac catheterization, scheduled for later today. This was discussed in full detail with informed consent yesterday, see my note from 12/18/19, discussed again briefly today. Dental extraction to be done as well, as t his is the likely initial source of infection. 2. Mild troponin elevation, ECG abnormalities - without angina. For cardiac catheterizatio n for evaluation of coronary anatomy later today. If he is found to have significant coronar y lesions he may require CABG at the time of mitral valve replacement. Continue aspirin 81 m g pending evaluation. Will initiate statin therapy, even if he does not have CAD and indicat ion for secondary prevention his 10 year ASCVD risk is calculated at > 20% (high) and high d ose statin therapy is indicated. 3. Anemia, acute - Hemoglobin 11.7 on 10/31/19, 8.3 on 12/15/19 labs at OSH. Hgb dropped to 6 .6 yesterday, now > 10 after transfusion of 2 units PRBCs yesterday, ? from a combination of bone marrow suppression due to IE, MR-related hemolysis, likely exacerbated by hematuria wh en he pulled out his Villa. Stool was negative for OB. 4. PSVT - Symptomatic with palpitations. Monitor telemetry for recurrence, may need EP magdalena luation if it recurs. Continue diltiazem 120 mg daily. 5. Possible ASD with a left to right atrial shunt on echocardiogram - ARNOLDO for evaluation later today. 6. Mild TR with pulmonary hypertension by 12/16/19 echocardiogram at [facility], most likely relate d to severe MR. Will assess with ARNOLDO. 7. Poor insight/understanding - suspected to be due to septic emboli of the brain in multi ple areas. Mentation seems a bit better today, as yesterday he did not seem to fully unders tand his medical conditions, or that his prognosis is very poor without surgical interventio n for his endocarditis. His told me via telephone today that prior to his current illn ess, his mental acuity was normal. Discussed with Monty Major MD, will get neurology eval uation. 8. TSH 0.46, suggesting possible hyperthyroidism, will check free T4. 9. Glucose intolerance - HgbA1C 6.2% on 10/31/19 admission. Code Status: Full Code Alexi Squires MD - 12/19/2019 10:24 AM PDTFormatting of this note might be different from the willie luis. [facility] Service: Infectious Diseases Progress Note Hospital Day: LOS: 3 days Post-Op Day: * No surgery date entered * CC: Follow up on endocarditis. SUBJECTIVE/OVERNIGHT EVENTS Continues on iv antibiotic therapy. Denies new concerns and denies side effects. Tolerating antibiotics well. Oxygen requirements: SpO2: 95 % on 0L/min room air The patient had MRI of the brain that showed small ring-enhancing lesion in the right parie to-occipital region, as well as multiple acute infarcts in the right CERTIFIED HISTOLOGIC TECHNICIAN territory, with num erous areas of microhemorrhage in the bihemispheric frontal lobes. Culture results obtained. Patient has various Streptococcus bacteremia, extremely suscepti ble to penicillin. Intake/Output Summary (Last 24 hours) at 12/19/2019 1025 Last data filed at 12/18/2019 1630 Gross per 24 hour Intake 800 ml Output 325 ml Net 475 ml REVIEW OF SYSTEMS . GI: denies diarrhea. Skin: denies skin rash. Constitutional: denies fever and chills. Respi ratory: denies difficulty breathing. MEDICATIONS: Scheduled Meds: aspirin 81 mg Oral Daily atorvaSTATin 80 mg Oral Nightly dilTIAZem 120 mg Oral Daily gentamicin 60 mg Intravenous Q12H gentamicin per pharmacy Other Pharmacy Consult heparin 5,000 Units Subcutaneous Q12H melatonin 3 mg Oral Nightly probiotic formula 1 capsule Oral Daily with breakfast vancomycin 1,500 mg Intravenous Q24H vancomycin per pharmacy Other Pharmacy Consult Continuous Infusions: PRN Meds:.acetaminophen, ondansetron, sodium chloride (PF) 0.9% injection PHYSICAL EXAM Vital Signs: BP (!) 155/91 | Pulse 112 | Temp 37.2 C (98.9 F) (Oral) | Resp 20 | Ht 1.651 m (5' 5") | Wt 59.4 kg (130 lb 15.3 oz) | SpO2 95% | BMI 21.79 kg/m Focused exam shows: General exam: No distress, cooperative with exam. HEENT: sclera non-icteric, no visible oral thrush Cardiovascular: regular rate and rhythm Lungs: no tachypnea, clear breath sounds. Mildly decreased at bases Abdomen: no distension, bowel sounds present Extremities/MSK: No edema, no joint effusions Skin: No lesions, normal turgor Neurologic: Awake, cranial nerves intact. Follows commands. Venous access: PIV. LABS: All labs were reviewed. Recent Results (from the past 24 hour(s)) Lactate Dehydrogenase Result Value Ref Range LDH TOTAL 244 120 - 246 U/L Retic Count Result Value Ref Range % Reticulocyte Count 4.7 (H) 0.4 - 2.7 % TSH, Reflex Free T4 Result Value Ref Range TSH 1.380 0.450 - 5.100 uIU/mL Fecal Hemoglobin Result Value Ref Range FECAL OCCULT BLD NEGATIVE NEG Hemoglobin and Hematocrit Result Value Ref Range Hemoglobin 10.3 (L) 13.2 - 17.0 g/dL Hematocrit 32.2 (L) 39.0 - 50.0 % Haptoglobin Result Value Ref Range Haptoglobin 281 34 - 355 mg/dL Iron and Iron Binding Capacity Result Value Ref Range Iron 58 45 - 190 ug/dL Iron Binding Capacity 224 (L) 250 - 450 ug/dL Iron Saturation 26 20 - 50 % Ferritin Result Value Ref Range Ferritin 705 (H) 30 - 400 ng/mL Basic Metabolic Panel Result Value Ref Range Na 138 135 - 145 mmol/L K 3.9 3.5 - 4.9 mmol/L Cl 107 99 - 109 mmol/L CO2 20 (L) 23 - 32 mmol/L Anion Gap 15 5 - 20 mmol/L Glucose 113 (H) 65 - 99 mg/dL BUN 13 8 - 25 mg/dL Creatinine 1.08 0.70 - 1.30 mg/dL BUN/Creatinine Ratio 12 Calcium 8.9 8.5 - 10.5 mg/dL Estimated GFR >60 >60 mL/min/1.73m2 CBC with Differential Result Value Ref Range WBC 16.89 (H) 3.80 - 11.00 K/uL Red Blood Cells 3.89 (L) 4.20 - 5.70 M/uL Hemoglobin 10.5 (L) 13.2 - 17.0 g/dL Hematocrit 33.6 (L) 39.0 - 50.0 % MCV 86.4 80.0 - 100.0 fl MCH 27.0 27.0 - 34.0 pg MCHC 31.3 (L) 32.0 - 35.5 g/dL RDW-SD 50.4 37 - 53 fl Platelet Count 339 150 - 400 K/uL MPV 9.3 fl Diff Type AUTOMATED % nRBC 0.0 0 /100WBC % Neutrophils 85.20 % IMMATURE GRANULOCYTE 0.80 % % Lymphocytes 8.50 % Monocyte % 4.90 % Eosinophils % 0.40 % Basophils % 0.20 % Neutrophils, Absolute 14.39 (H) 1.90 - 7.40 K/uL IMMATURE GRANS AB 0.14 (H) 0.00 - 0.07 K/uL Absolute Lymphocytes 1.44 1.00 - 3.90 K/uL Absolute Monocytes 0.83 (H) 0.00 - 0.80 K/uL Eosinophils, Absolute 0.06 0.00 - 0.50 K/uL Basophils, Absolute 0.03 0.00 - 0.10 K/uL Gentamicin, Trough Result Value Ref Range GENTAMICIN TROUGH 0.6 <2.0 ug/mL Microbiology Results (Last 14 Days by Collected Date with Culture/Sensitivity) Procedure Component Value Units Date/Time Coronavirus (COVID-19) NAAT [[id number]] Collected: 12/16/19 2314 Order Status: Completed Lab Status: Final result Updated: 12/17/19 0022 SARS-CoV-2, NAAT (COVID-19) NEGATIVE Comment: This test was developed and its performance characteristics determined by [email or web address]. It has not been cleared or approved by the [place] FDA. This test has been authorized by FDA under an Emergency Use Authorization (EUA). Clinicians should be advised to consider a patients signs, symptoms, history, and results of other diagnostic tests when interpreting results. Testing performed at [facility];[address] [place] [id number] Coronavirus (COVID-19) NAAT [[id number]] Collected: 12/16/192135 Order Status: Canceled Lab Status: No result Specimen: Tissue from Nasopharynx Culture, Blood [[id number]] Collected: 12/16/191924 Order Status: Completed Lab Status: Preliminary result Updated: 12/18/19716 Specimen: Peripheral Blood Special Requests RIGHT HAND Special Requests Testing performed at [facility];[address] [place] [address] RESULT NO GROWTH AT THIS TIME RESULT Testing performed at [facility], [address] [place] [id number] Comment: Testing performed at [facility], [address] [place] [address] Culture, Blood [[id number]] Collected: 12/16/191924 Order Status: Completed Lab Status: Preliminary result Updated: 12/18/19716 Specimen: Peripheral Blood Special Requests LEFT HAND Special Requests Testing performed at [facility];[address] [place] [address] RESULT NO GROWTH AT THIS TIME RESULT Testing performed at [facility], [address] [place] [id number] Comment: Testing performed at [facility], [address] [place] [address] Microbiology Results (72 hrs) Procedure Component Value Units Date/Time Coronavirus (COVID-19) NAAT [[id number]] Collected: 12/16/194 Order Status: Completed Lab Status: Final result Updated: 12/17/19 0022 SARS-CoV-2, NAAT (COVID-19) NEGATIVE Comment: This test was developed and its performance characteristics determined by [email or web address]. It has not been cleared or approved by the [place] FDA. This test has been authorized by FDA under an Emergency Use Authorization (EUA). Clinicians should be advised to consider a patients signs, symptoms, history, and results of other diagnostic tests when interpreting results. Testing performed at [facility];[address] [place] [address] Culture, Blood [[id number]] Collected: 12/16/191924 Order Status: Completed Lab Status: Preliminary result Updated: 12/18/19716 Specimen: Peripheral Blood Special Requests RIGHT HAND Special Requests Testing performed at [facility];[address] [place] [address] RESULT NO GROWTH AT THIS TIME RESULT Testing performed at [facility], [address] [place] [id number] Comment: Testing performed at [facility], [address] [place] [address] Culture, Blood [[id number]] Collected: 12/16/191924 Order Status: Completed Lab Status: Preliminary result Updated: 12/18/19716 Specimen: Peripheral Blood Special Requests LEFT HAND Special Requests Testing performed at [facility];[address];[place] [address] RESULT NO GROWTH AT THIS TIME RESULT Testing performed at [facility], [address] [facility], [place] [address] Comment: Testing performed at [facility], [address], [place] [address] IMAGING: No new images for review today. ASSESSMENT & PLAN The patient is a 69 y.o.-year-old male with the following problems: Active Hospital Problems Diagnosis Date Noted Infectious endocarditis Severe mitral regurgitation Severe protein-calorie malnutrition 12/17/2019 Acute bacterial endocarditis 12/16/2019 Diet-controlled diabetes mellitus 12/16/2019 Endocarditis of mitral valve 12/16/2019 Resolved Hospital Problems No resolved problems to display. 1.Subacute mitral valve endocarditis Large vegetation found on mitral valve with eccentric regurgitation. Cardiothoracic surgery consulted due to large size of vegetation. High risk for recurrent e mbolization. Going today for ARNOLDO to evaluate eccentric regurgitation ?perf? Repeat blood cultures x2 sets are in process, no growth so ar. Patient will be covered with intravenous ceftriaxone 2 g every 12 hours. 2. Viridans group Streptococcus bacteremia. Antibiotics as above. 3. Splenic infarcts/emboli on CT 4. Possible kidney hematogenous seeding as well per CT. 5. Very poor dentition. 6. Massive weight loss, secondary to #1. 7. Bilateral septic emboli to brain. Currently asymptomatic. But with the large mitral valve vegetation, not surprising. There is evidence of microhemorrhage. 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 Repeat CBC and CMP in the am. Patient updated on his/her condition today. Discussed with attending provider: Monty Major MD . Alexi oNble MD, MPH Infectious Diseases 12/19/19 Bree Gunter MD - 12/19/2019 8:24 AM PDTFormatting of this note might be different from the moises nal. [facility] Service: Hospitalist Progress Note Pt: Reilly Hamm AGE/SEX: 69 y.o. male ROOM: [address] [place] [address] : 1950 PCP: No Physician on file ADMIT DATE: 12/16/2019 TODAY'S DATE: 12/19/2019 Hospital Day/Hospital Course: LOS: 3 days Mr. Hamm is a 69-year-old male with no significant past medical history who originally pr [facility] on 12/14 with progressive weakness for the last few months an d intermittent fevers for the last 1 month, found to have GPC bacteremia and mitral valve en docarditis, transferred to [facility] on 12/15 for further evaluation. Further work-up has revealed splenic infarcts/emboli on CT imaging. Hospital course has been complicated by acute delir ium and anemia of unclear etiology. Infectious disease has been consulted and patient is no w on broad-spectrum antibiotics. Cardiology has been consulted and is planning for cardiac catheterization and possibly ARNOLDO tomorrow, 12/18. CT surgery has also been consulted for eval uation of mitral valve and possible surgery needed. SUBJECTIVE: Patient still reporting some anxiety regarding all of his procedures upcoming today as well as dental extraction. Following a long conversation with him and his and myself and kaleigh ross RN patient is calm and agreeable to plan for today. She otherwise reports no acute c omplaints. Remains on IV antibiotics. Denies fevers, chills. Denies chest pain, dyspnea. Scheduled Medications: aspirin 81 mg Oral Daily atorvaSTATin 80 mg Oral Nightly dilTIAZem 120 mg Oral Daily gentamicin 60 mg Intravenous Q12H gentamicin per pharmacy Other Pharmacy Consult heparin 5,000 Units Subcutaneous Q12H melatonin 3 mg Oral Nightly probiotic formula 1 capsule Oral Daily with breakfast vancomycin 1,500 mg Intravenous Q24H vancomycin per pharmacy Other Pharmacy Consult Continuous Infusions None PRN Medications acetaminophen, ondansetron, sodium chloride (PF) 0.9% injection Allergy: Allergies Allergen Reactions Canola Oil [Vegetable Oil] GI Upset Pt states that he gets upset stomach when ingesting canola oil. Soybean Oil GI Upset Pt states he gets upset stomach when he ingests soybean oil. OBJECTIVE: Vitals: BP (!) 155/91 | Pulse 112 | Temp 37.2 C (98.9 F) (Oral) | Resp 20 | Ht 1.651 m (5' 5") | Wt 59.4 kg (130 lb 15.3 oz) | SpO2 95% | BMI 21.79 kg/m I&O Detailed Table: Intake/Output Summary (Last 24 hours) at 12/19/2019 0824 Last data filed at 12/18/2019 1630 Gross per 24 hour Intake 800 ml Output 675 ml Net 125 ml Patient Vitals for the past 96 hrs: Weight 12/19/19 0326 59.4 kg (130 lb 15.3 oz) 12/16/19 1959 59 kg (130 lb 1.1 oz) Physical Examination: GEN: elderly male in no apparent distress HEAD: normocephalic EYES: no conjunctival icterus or injection ENT: MMM, clear oropharynx NECK: supple, no cervical lymphadenpathy CV: RR at ~70 bpm, normal S1/S2, 3/6 systolic murmur heard best at the apex with radiation to axilla RESP: faint bibasilar crackles, no wheezing, no increased work of breathing ABD: soft, NT/ND, BS+, no obvious masses/organomegaly SKIN: warm and dry, no rashes MSK: normal muscle bulk and tone PSYCH: mood is good, affect congruent NEURO: grossly non-focal LABS: BMP 138 107 13 113* 3.9 20* 1.08 CaMgPhos 8.9 LFT CBC 16.89* 10.5* 339 33.6* Coag 1.0 Last labs from current encounter as of 12/19/19-08:24 PDT Recent Labs Lab 12/18/19 0554 INR 1.0 Microbiology Results (72 hrs) Procedure Component Value Units Date/Time Coronavirus (COVID-19) NAAT [[id number]] Collected: 12/16/19 2314 Order Status: Completed Lab Status: Final result Updated: 12/17/19 0022 SARS-CoV-2, NAAT (COVID-19) NEGATIVE Comment: This test was developed and its performance characteristics determined by [employer]. It has not been cleared or approved by the [place] FDA. This test has been authorized by FDA under an Emergency Use Authorization (EUA). Clinicians should be advised to consider a patients signs, symptoms, history, and results of other diagnostic tests when interpreting results. Testing performed at [facility];[address] [place] [address];[place] [address] Culture, Blood [[id number]] Collected: 12/16/19 1925 Order Status: Completed Lab Status: Preliminary result Updated: 12/18/19 0717 Specimen: Peripheral Blood Special Requests RIGHT HAND Special Requests Testing performed at [facility];[address] [place] [address];[place] [address] RESULT NO GROWTH AT THIS TIME RESULT Testing performed at [facility], [address] [place] [address] Comment: Testing performed at [facility], [address] [place] [address], [place] [address] Culture, Blood [[id number]] Collected: 12/16/19 1925 Order Status: Completed Lab Status: Preliminary result Updated: 12/18/19716 Specimen: Peripheral Blood Special Requests LEFT HAND Special Requests Testing performed at [facility];[address] [place] [address] RESULT NO GROWTH AT THIS TIME RESULT Testing performed at [facility], [address] [place] [id number] Comment: Testing performed at [facility], [address] [place] [address] IMAGING: Reviewed in EPIC, no new results. PROBLEM LIST Principal Problem: Acute bacterial endocarditis Active Problems: Diet-controlled diabetes mellitus Severe protein-calorie malnutrition Infectious endocarditis Severe mitral regurgitation Endocarditis of mitral valve Resolved Problems: * No resolved hospital problems. * ASSESSMENT & PLAN MV endocarditis Admitted on 12/14 to OSH with 1 month of intermittent fevers and 4 months of fatigue. Sepsis present on admit evidenced by fever to 104F, tachycardia to 160s, lactic Acid level of 5.8. Hemodynamics now improved. CXR unremarkable. CT abdomen/pelvis showed 2 hypodense liver lesi ons and 1 hypodense left kidney lesion concerning for infarcts. Blood cultures at OSH showin g GPCs. Echo 12/15 at OSH showed MV vegetation with MR. Patient now awaiting ARNOLDO to further as sess degree of MR and cardiac cath for further evaluation. -CT surgery, Dr. Elder consulted -cardiology, Dr. Tejeda consulted, NPO awaiting ARNOLDO and cath today -ID, Dr. Noble consulted, continue vancomycin and gentamicin -OMFS, Dr. Hull consulted, NPO awaiting teeth extraction tonight vs tomorrow -follow up blood cultures SVT At outside hospital had HRs in the 160s, resolved on diltiazem drip which was weaned off up on arrival here, now on orals. Notably patient with admit October of this year for fatigue and poor appetite with negative cardiac enzymes with recommendation for stress test however left AMA before it could be done. Prior to that hospitalization had not seen a doctor in 20 year s. -cardiology, Dr. Tejeda consulted, continue diltiazem 120 mg daily -telemetry Anemia Notably had Hgb of 11.7 on 10/31/19. Was down to 6.6 on admit yesterday. MCV normocytic. Wor kup sent off including iron panel and hemolysis labs. Iron panel consistent with anemia of c hronic disease. LDH normal, not consistent with hemolysis. Reportedly also recently pulled o ut his villa and had associated hematuria although doubt this to be sole culprit. Imaging do ne at OSH did not show RP bleed. FOBT negative, no likely GI source of blood loss. Thyroid s tudies normal. Retic count/index appropriately high suggesting good bone marrow response to anemia. -serial monitoring of H/H -pRBC transfusion if Hgb <7.0 Suspected septic emboli to the brain Intermittent confusion over the past few days prompting brain MRI which confirmed suspicion and had multiple abnormalities as seen below: 1. An 8 x 8 x 11 mm ring enhancing lesion, image 68 series 11, in the right parieto-occipit al junction near the cortical surface. This may represent a septic embolus or simple the enh ancement of a subacute infarct. 2. 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 CERTIFIED HISTOLOGIC TECHNICIAN territory including a 1.1 x 2.6 cm infarct of t he right occipital lobe, minimal areas of subacute ischemia in the brothers matter of the inferi or right parietal lobe, a 4.5 mm infarct of the central right thalamus, a 3 mm infarct at th e right side of the posterior body the corpus callosum at the medial border of the atria the right lateral ventricle. These may represent embolic infarcts. 3. 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 4. Scalp lipoma of the left forehead measuring 38 x 31 x 7 mm. -neurology, Dr. Ryan has been consulted TII DM -HgA1c of 6.2% -diet controlled I attest that this clinical assessment using ASPEN criteria 1 is accurate for this patient and supports that as a medical diagnosis. A specific nutrition treatment plan will be imple mented as outlined in the registered dietitian's plan of care. Nutrition Diagnosis: Severe protein-calorie malnutrition Type, Severe: Chronic illness Weight Loss: Other (see comment) (severe wt loss of 25 lbs, 16% over 4 months.) Energy Intake: Less than or equal to 75% energy intake compared to estimated needs for grea ter than or equal to 1 month Muscle Mass: Severe depletion PPx: SQ[facility] Code status: Full Contacts: Nathalie, , , called and updated 12/18 Dispo: pending final ID recs and possible CT surgery, no clear timeline at this time Monty Major MD 8:24 AM PDT 12/19/2019 Portions of this chart may have been copied from previous notes for continuity of care purp ose Adi Lu RN - 12/19/2019 4:27 AM PDTPatient has been intermittently confused since midnight but is eas juice redirected. Bed alarm remains on for safety. Frequent reorientation provided, NPO since CT for scheduled ARNOLDO/cath today. VSS. Hourly rounding otherwise uneventful. Adi Goode RN Alexi Squires MD - 12/18/2019 3:13 PM PDTFormatting of this note might be different from the o riginal. [facility] Service: Infectious Diseases Progress Note Hospital Day: LOS: 2 days Post-Op Day: * No surgery date entered * CC: Follow up on endocarditis. SUBJECTIVE/OVERNIGHT EVENTS Continues on iv antibiotic therapy. Denies new concerns and denies side effects. Tolerating antibiotics well. No acute events over the last 24 hours. Oxygen requirements: SpO2: 98 % on 0L/min room air Anemic requiring transfusion today. Denies new complaints. Afebrile. ARNOLDO scheduled and also cardiac cath. Pt denies neurological deficit. Intake/Output Summary (Last 24 hours) at 12/18/2019 1513 Last data filed at 12/18/2019 1351 Gross per 24 hour Intake 400 ml Output 1325 ml Net -925 ml REVIEW OF SYSTEMS . GI: denies diarrhea. Skin: denies skin rash. Constitutional: denies fever and chills. Respi ratory: denies difficulty breathing. MEDICATIONS: Scheduled Meds: aspirin 81 mg Oral Daily atorvaSTATin 80 mg Oral Nightly dilTIAZem 120 mg Oral Daily gentamicin 60 mg Intravenous Q12H gentamicin per pharmacy Other Pharmacy Consult heparin 5,000 Units Subcutaneous Q12H melatonin 3 mg Oral Nightly probiotic formula 1 capsule Oral Daily with breakfast vancomycin 1,500 mg Intravenous Q24H vancomycin per pharmacy Other Pharmacy Consult Continuous Infusions: PRN Meds:.acetaminophen, ondansetron PHYSICAL EXAM Vital Signs: BP 148/82 | Pulse 96 | Temp 36.6 C (97.8 F) (Oral) | Resp 18 | Ht 1.651 m (5' 5") | Wt 59 kg (130 lb 1.1 oz) | SpO2 98% | BMI 21.64 kg/m Focused exam shows: General exam: No distress, cooperative with exam. HEENT: sclera non-icteric, no visible oral thrush Cardiovascular: regular rate and rhythm, syst murmur Lungs: no tachypnea, clear breath sounds. Mildly decreased at bases Abdomen: no distension, bowel sounds present Extremities/MSK: No edema, no joint effusions Skin: No lesions, normal turgor Neurologic: Awake, cranial nerves intact. Follows commands. Venous access: PIV. LABS: All labs were reviewed. Recent Results (from the past 24 hour(s)) CBC with Differential Result Value Ref Range WBC 9.24 3.80 - 11.00 K/uL Red Blood Cells 2.71 (L) 4.20 - 5.70 M/uL Hemoglobin 7.0 (L) 13.2 - 17.0 g/dL Hematocrit 23.1 (L) 39.0 - 50.0 % MCV 85.2 80.0 - 100.0 fl MCH 25.8 (L) 27.0 - 34.0 pg MCHC 30.3 (L) 32.0 - 35.5 g/dL RDW-SD 55.2 (H) 37 - 53 fl Platelet Count 316 150 - 400 K/uL MPV 9.2 fl Diff Type AUTOMATED % nRBC 0.0 0 /100WBC % Neutrophils 71.40 % IMMATURE GRANULOCYTE 1.10 % % Lymphocytes 18.60 % Monocyte % 8.40 % Eosinophils % 0.30 % Basophils % 0.20 % Neutrophils, Absolute 6.59 1.90 - 7.40 K/uL IMMATURE GRANS AB 0.10 (H) 0.00 - 0.07 K/uL Absolute Lymphocytes 1.72 1.00 - 3.90 K/uL Absolute Monocytes 0.78 0.00 - 0.80 K/uL Eosinophils, Absolute 0.03 0.00 - 0.50 K/uL Basophils, Absolute 0.02 0.00 - 0.10 K/uL Vancomycin Level Result Value Ref Range Vancomycin Random, Serum 11.1 ug/mL CBC no Differential Result Value Ref Range WBC 9.59 3.80 - 11.00 K/uL Red Blood Cells 2.53 (L) 4.20 - 5.70 M/uL Hemoglobin 6.6 (LL) 13.2 - 17.0 g/dL Hematocrit 21.6 (L) 39.0 - 50.0 % MCV 85.4 80.0 - 100.0 fl MCH 26.1 (L) 27.0 - 34.0 pg MCHC 30.6 (L) 32.0 - 35.5 g/dL RDW-SD 55.2 (H) 37 - 53 fl Platelet Count 319 150 - 400 K/uL MPV 10.0 fl Basic Metabolic Panel Result Value Ref Range Na 142 135 - 145 mmol/L K 3.8 3.5 - 4.9 mmol/L Cl 111 (H) 99 - 109 mmol/L CO2 23 23 - 32 mmol/L Anion Gap 12 5 - 20 mmol/L Glucose 99 65 - 99 mg/dL BUN 13 8 - 25 mg/dL Creatinine 0.90 0.70 - 1.30 mg/dL BUN/Creatinine Ratio 14 Calcium 7.9 (L) 8.5 - 10.5 mg/dL Estimated GFR >60 >60 mL/min/1.73m2 Protime INR Result Value Ref Range INR 1.0 Type and Screen Result Value Ref Range ABO Rh O POSITIVE Antibody Screen NEGATIVE BB BAND [id number] UNIT # [id number] Product Code LEUKODEPLETED PC Unit Division 00 Unit Status ISSUED Transfusion Status OK TO TRANSFUSE CROSSMATCH RESULT COMPATIBLE UNIT # [id number] Product Code LEUKODEPLETED PC Unit Division 00 Unit Status ISSUED Transfusion Status OK TO TRANSFUSE CROSSMATCH RESULT COMPATIBLE Testing performed at [facility];[address] [place] [address] UNIT # [id number] Product Code LEUKODEPLETED PC Unit Division 00 Unit Status ALLOCATED Transfusion Status OK TO TRANSFUSE CROSSMATCH RESULT COMPATIBLE Red Blood Cells (PRBC) - Crossmatch Result Value Ref Range Product Code RED CELL GROUP Units ordered 1 BLOOD BANK COMMENT ORDER RECEIVED IN BLOOD BANK. BLOOD BANK COMMENT Testing performed at [facility];[address] [place] [address] Red Blood Cells (PRBC) - Crossmatch Result Value Ref Range Product Code RED CELL GROUP Units ordered 2 BLOOD BANK COMMENT ORDER RECEIVED IN BLOOD BANK. BLOOD BANK COMMENT Testing performed at [facility];[address] [place] [address] Lactate Dehydrogenase Result Value Ref Range LDH TOTAL 244 120 - 246 U/L Retic Count Result Value Ref Range % Reticulocyte Count 4.7 (H) 0.4 - 2.7 % TSH, Reflex Free T4 Result Value Ref Range TSH 1.380 0.450 - 5.100 uIU/mL Microbiology Results (Last 14 Days by Collected Date with Culture/Sensitivity) Procedure Component Value Units Date/Time Coronavirus (COVID-19) NAAT [[id number]] Collected: 12/16/19 2314 Order Status: Completed Lab Status: Final result Updated: 12/17/19 0022 SARS-CoV-2, NAAT (COVID-19) NEGATIVE Comment: This test was developed and its performance characteristics determined by [email or web address]. It has not been cleared or approved by the [place] FDA. This test has been authorized by FDA under an Emergency Use Authorization (EUA). Clinicians should be advised to consider a patients signs, symptoms, history, and results of other diagnostic tests when interpreting results. Testing performed at [facility];[address] [place] [address] Coronavirus (COVID-19) NAAT [[id number]] Collected: 12/16/192135 Order Status: Canceled Lab Status: No result Specimen: Tissue from Nasopharynx Culture, Blood [[id number]] Collected: 12/16/191924 Order Status: Completed Lab Status: Preliminary result Updated: 12/18/19 0717 Specimen: Peripheral Blood Special Requests RIGHT HAND Special Requests Testing performed at [facility];[address] [place] [address] RESULT NO GROWTH AT THIS TIME RESULT Testing performed at [facility], [address] [place] [address] Comment: Testing performed at [facility], [address] [place] [address] Culture, Blood [[id number]] Collected: 12/16/191924 Order Status: Completed Lab Status: Preliminary result Updated: 12/18/19716 Specimen: Peripheral Blood Special Requests LEFT HAND Special Requests Testing performed at [facility];[address] [place] [address] RESULT NO GROWTH AT THIS TIME RESULT Testing performed at [facility], [address] [place] [address] Comment: Testing performed at [facility], [address] [place] [address] Microbiology Results (72 hrs) Procedure Component Value Units Date/Time Coronavirus (COVID-19) NAAT [[id number]] Collected: 12/16/194 Order Status: Completed Lab Status: Final result Updated: 12/17/19 0022 SARS-CoV-2, NAAT (COVID-19) NEGATIVE Comment: This test was developed and its performance characteristics determined by [email or web address]. It has not been cleared or approved by the [place] FDA. This test has been authorized by FDA under an Emergency Use Authorization (EUA). Clinicians should be advised to consider a patients signs, symptoms, history, and results of other diagnostic tests when interpreting results. Testing performed at [facility];[address] [place] [address] Culture, Blood [[id number]] Collected: 12/16/191924 Order Status: Completed Lab Status: Preliminary result Updated: 12/18/19716 Specimen: Peripheral Blood Special Requests RIGHT HAND Special Requests Testing performed at [facility];[address] [place] [address] RESULT NO GROWTH AT THIS TIME RESULT Testing performed at [facility], [address] [place] [address] Comment: Testing performed at [facility], [address] [place] [address] Culture, Blood [[id number]] Collected: 12/16/191924 Order Status: Completed Lab Status: Preliminary result Updated: 12/18/19716 Specimen: Peripheral Blood Special Requests LEFT HAND Special Requests Testing performed at [facility];[address];[place] [address] RESULT NO GROWTH AT THIS TIME RESULT Testing performed at [facility], [address] [place] [address] Comment: Testing performed at [facility], [address], [place] [address] IMAGING: No new images for review today. ASSESSMENT & PLAN The patient is a 69 y.o.-year-old male with the following problems: Active Hospital Problems Diagnosis Date Noted Infectious endocarditis Severe mitral regurgitation Severe protein-calorie malnutrition 12/17/2019 Acute bacterial endocarditis 12/16/2019 Diet-controlled diabetes mellitus 12/16/2019 Endocarditis of mitral valve 12/16/2019 Resolved Hospital Problems No resolved problems to display. . 1. Subacute mitral valve endocarditis Large vegetation found on mitral valve with eccentric regurgitation. Cardiothoracic surgery consulted due to large size of vegetation. High risk for recurrent e mbolization. ARNOLDO to evaluate eccentric regurgitation ?perf? Repeat blood cultures x2 sets are in process, no growth so ar. Request updated results from [facility] today. Patient will be covered with vancomycin and gentamicin. Gentamicin synergy per pharmacy service. 2. Gram-positive cocci in chains bacteremia. Enterococcus versus viridans Streptococcus. Antibiotics as above. 3. Splenic infarcts/emboli on CT 4. Possible kidney hematogenous seeding as well per CT. 5. Very poor dentition. 6. Massive weight loss, secondary to #1. Continue current antibiotic regimen. Repeat CBC and CMP in the am. Follow vancomycin levels. Discussed with attending provider: Monty Major MD Monitoring toxicity of iv antibiotic therapy, vancomycin, risk medication. Monitoring daily l labs, vancomycin levels. Pharmacy assisting with dosing and monitorization. Alexi Noble MD, MPH Infectious Diseases 12/18/19 Danielle Hardwick PharmD - 12/18/2019 11:03 AM PDT Vancomycin Dosing Per Pharmacy Subjective/Objective Reilly Hamm is a 69 y.o. male started on vancomycin 12/15 for bacteremia (GPC in c hains) and endocarditis of mitral valve. The infectious disease consult service is following this patient and directing antibiotic therapy. The patient is also on synergy dosing gentam icin. Current Vital Signs: BP 126/72 | Pulse 87 | Temp 36.7 C (98 F) (Oral) | Resp 20 | H t 1.651 m (5' 5") | Wt 59 kg (130 lb 1.1 oz) | SpO2 98% | BMI 21.64 kg/m Recent Labs Lab 12/18/19 0554 12/17/19 1622 12/17/19 0443 WBC 9.59 9.24 -- VANCO 11.1 -- -- CREA 0.90 -- 0.90 Estimated Creatinine Clearance: 63 mL/min (based on SCr of 0.9 mg/dL). Vancomycin Dosing History Date Dosing Regimen Admin Times Trough SCr Comments Day 1 12/15 1500 mg IV ONCE 2121 Day 2 12/16 1000 mg IV Q24H 0950 0.9 Day 3 12/17 1500mg IV q24H 1034 11.1 @ 0554 0.9 12/15 Blood cultures x2: NGTD ARNOLDO scheduled 12/18 Day 4 12/18 Day 5 12/19 *SCr = mg/dL [vanco] = mcg/mL Assessment/Plan Vancomycin Trough resulted: 12/17 @ 0554: 11.1 mcg/mL. below goal 15-20 mcg/mL Will change from vancomycin 1000 mg IV Q24H to 1500 mg IV Q24H. Plan for level: 12/20 at 0900. Pharmacy will continue to follow and make adjustments to vancomycin therapy as indicated. Thank You, Danielle Cerna PharmD, 12/18/2019, 10:47 AM PDT Monty Gunter MD - 12/18/2019 10:49 AM PDT [facility] Service: Hospitalist Progress Note Pt: Reilly Hamm AGE/SEX: 69 y.o. male ROOM: 9107/9107-01 : 1950 PCP: No Physician on file ADMIT DATE: 12/16/2019 TODAY'S DATE: 12/18/2019 Hospital Day/Hospital Course: LOS: 2 days Mr. Hamm is a 69-year-old male with no significant past medical history who originally pr [facility]ented [facility] on 12/14 with progressive weakness for the last few months an d intermittent fevers for the last 1 month, found to have GPC bacteremia and mitral valve en docarditis, transferred to [facility] on 12/15 for further evaluation. Further work-up has revealed splenic infarcts/emboli on CT imaging. Hospital course has been complicated by acute delir ium and anemia of unclear etiology. Infectious disease has been consulted and patient is no w on broad-spectrum antibiotics. Cardiology has been consulted and is planning for cardiac catheterization and possibly ARNOLDO tomorrow, 12/18. CT surgery has also been consulted for eval uation of mitral valve and possible surgery needed. SUBJECTIVE: Patient reports feeling quite anxious regarding the possibility of needing surgery. He als o reports intermittent confusion, feels okay right now. Remains on broad-spectrum antibioti cs. Hgb 6.6 this morning and written for 2 units of PRBCs by cardiology. Patient denies li ghtheadedness/dizziness. Also denies chest pain, dyspnea. Scheduled Medications: aspirin 81 mg Oral Daily atorvaSTATin 80 mg Oral Nightly dilTIAZem 120 mg Oral Daily gentamicin 60 mg Intravenous Q12H gentamicin per pharmacy Other Pharmacy Consult heparin 5,000 Units Subcutaneous Q12H melatonin 3 mg Oral Nightly probiotic formula 1 capsule Oral Daily with breakfast vancomycin 1,500 mg Intravenous Q24H vancomycin per pharmacy Other Pharmacy Consult Continuous Infusions None PRN Medications acetaminophen, ondansetron Allergy: Allergies Allergen Reactions Canola Oil [Vegetable Oil] GI Upset Pt states that he gets upset stomach when ingesting canola oil. Soybean Oil GI Upset Pt states he gets upset stomach when he ingests soybean oil. OBJECTIVE: Vitals: BP 126/72 | Pulse 87 | Temp 36.7 C (98 F) (Oral) | Resp 20 | Ht 1.651 m (5' 5") | Wt 59 kg (130 lb 1.1 oz) | SpO2 98% | BMI 21.64 kg/m I&O Detailed Table: Intake/Output Summary (Last 24 hours) at 12/18/2019 1049 Last data filed at 12/18/2019 0966 Gross per 24 hour Intake Output 1225 ml Net -1225 ml Patient Vitals for the past 96 hrs: Weight 12/16/19 1959 59 kg (130 lb 1.1 oz) Physical Examination: GEN: elderly male in no apparent distress HEAD: normocephalic EYES: no conjunctival icterus or injection ENT: MMM, clear oropharynx NECK: supple, no cervical lymphadenpathy CV: RR at ~70 bpm, normal S1/S2, 3/6 systolic murmur heard best at the apex with radiation to axilla RESP: faint bibasilar crackles, no wheezing, no increased work of breathing ABD: soft, NT/ND, BS+, no obvious masses/organomegaly SKIN: warm and dry, no rashes MSK: normal muscle bulk and tone PSYCH: mood is good, affect congruent NEURO: grossly non-focal LABS: BMP 142 111* 13 99 3.8 23 0.90 CaMgPhos 7.9* LFT CBC 9.59 6.6* 319 21.6* Coag 1.0 Last labs from current encounter as of 12/18/19-10:49 PDT Recent Labs Lab 12/18/19 0554 INR 1.0 Microbiology Results (72 hrs) Procedure Component Value Units Date/Time Coronavirus (COVID-19) NAAT [[id number]] Collected: 12/16/19 2314 Order Status: Completed Lab Status: Final result Updated: 12/17/19 0022 SARS-CoV-2, NAAT (COVID-19) NEGATIVE Comment: This test was developed and its performance characteristics determined by [email or web address]. It has not been cleared or approved by the [place] FDA. This test has been authorized by FDA under an Emergency Use Authorization (EUA). Clinicians should be advised to consider a patients signs, symptoms, history, and results of other diagnostic tests when interpreting results. Testing performed at [facility];[address] [place] [address] Culture, Blood [[id number]] Collected: 12/16/19 192 Order Status: Completed Lab Status: Preliminary result Updated: 12/18/19 0717 Specimen: Peripheral Blood Special Requests RIGHT HAND Special Requests Testing performed at [facility];[address] [place] [address] RESULT NO GROWTH AT THIS TIME RESULT Testing performed at [facility], [address] [place] [address] Comment: Testing performed at [facility], [address] [place] [address] Culture, Blood [[id number]] Collected: 12/16/195 Order Status: Completed Lab Status: Preliminary result Updated: 12/18/19 0717 Specimen: Peripheral Blood Special Requests LEFT HAND Special Requests Testing performed at [facility];[address] [place] [address];[place] [address] RESULT NO GROWTH AT THIS TIME RESULT Testing performed at [facility], [address] [facility], [place] [address] Comment: Testing performed at [facility], [address] [place] [address], [place] [address] IMAGING: Reviewed in EPIC, no new results. PROBLEM LIST Principal Problem: Acute bacterial endocarditis Active Problems: Diet-controlled diabetes mellitus Severe protein-calorie malnutrition Infectious endocarditis Severe mitral regurgitation Resolved Problems: * No resolved hospital problems. * ASSESSMENT & PLAN MV endocarditis Admitted on 12/14 to OSH with 1 month of intermittent fevers and 4 months of fatigue. Sepsis present on admit evidenced by fever to 104F, tachycardia to 160s, lactic Acid level of 5.8. Hemodynamics now improved. CXR unremarkable. CT abdomen/pelvis showed 2 hypodense liver lesi ons and 1 hypodense left kidney lesion concerning for infarcts. Blood cultures at OSH showin g GPCs. Echo 12/15 at OSH showed MV vegetation with MR. Patient now awaiting ARNOLDO to further as sess degree of MR and cardiac cath for further evaluation. -CT surgery, Dr. Elder consulted -cardiology, Dr. Tejeda consulted, NPO at CT for possible cath and ARNOLDO tomorrow -ID, Dr. Noble consulted, continue vancomycin and gentamicin -OMFS, Dr. Hull consulted, patient NPO now in case of needing teeth extraction tonight, CT max-face ordered per his recommendations -follow up blood cultures SVT At outside hospital had HRs in the 160s, resolved on diltiazem drip which was weaned off up on arrival here, now on orals. Notably patient with admit October of this year for fatigue and poor appetite with negative cardiac enzymes with recommendation for stress test however left AMA before it could be done. Prior to that hospitalization had not seen a doctor in 20 year s. -cardiology, Dr. Tejeda consulted, continue diltiazem 120 mg daily -telemetry Anemia Notably had Hgb of 11.7 on 10/31/19. Now down to 6.6 this morning. MCV normocytic. Possible hemolysis from endocarditis. Reportedly also recently pulled out his villa and had associate d hematuria although doubt this to be sole culprit. Iron panel to be added on to morning lab s. Imaging done at OSH did not show RP bleed. Component of chronic anemia likely also contri buting. Given that he has not seen a doc in 20 years probably not up to date with age approp riate malignancy screening, FOBT ordered. -follow up iron panel, FOBT, hemolysis labs, blood smear, retic count, TSH w/reflex T4 -maintain two large bore (18 gauge or higher) PIVs -pRBC transfusion if Hgb <7.0 TII DM -HgA1c of 6.2% -diet controlled Confusion -intermittent though reportedly improving -concern for possible septic emboli -follow up MRI brain I attest that this clinical assessment using ASPEN criteria 1 is accurate for this patient and supports that as a medical diagnosis. A specific nutrition treatment plan will be imple mented as outlined in the registered dietitian's plan of care. Nutrition Diagnosis: Severe protein-calorie malnutrition Type, Severe: Chronic illness Weight Loss: Other (see comment) (severe wt loss of 25 lbs, 16% over 4 months.) Energy Intake: Less than or equal to 75% energy intake compared to estimated needs for grea ter than or equal to 1 month Muscle Mass: Severe depletion PPx: [facility] Code status: Full Contacts: Nathalie, , , called and updated 12/17 Dispo: pending final ID recs and possible CT surgery, no clear timeline at this time Monty Major MD 10:49 AM PDT 12/18/2019 Portions of this chart may have been copied from previous notes for continuity of care purp ose Rashaad Espinoza MD - 12/18/2019 8:54 AM PDTDoing reasonably well No SHORTNESS OF BREATH Seems to be mentating better but still might consider doing MRI brain to rule out embolic e vents Note Hct is 21 and I do not see any blood ordered for him or investigation as to the cause - this should be sorted out as soon as possible For cardiac cath tomorrow ? ARNOLDO scheduled Timing of surgery still to be determined JJA ehr, Jeet Aaron MD - 12/18/2019 8:16 AM PDT [facility] Service: Cardiology Progress Note Date of Admission: 12/16/2019 BRIEF CLINICAL HISTORY: 69 y.o. 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 No significant medical history prior to recent admissions . He reports approximately 4 months of weakness/fatigue, intermittent fevers, and weight los s of 35-40 pounds. Denies chest pain/pressure. He does endorse dyspnea on exertion with oc casional cough. No orthopnea or lower extremity edema. Occasional dizziness but no lighthe adedness/syncope. He initially presented to [facility] 10/31/2019 with those complaints. Laboratory evaluation was significant for elevated CRP of 80, elevated procalcitonin of 0.68, decreased TSH 0.46, and hemoglobin A1c 6.2%. Also during the course of evaluation he was found to flores ve a mild troponin elevation, peak 0.08. ECGs reviewed, initial ECG was concerning for poss ible inferior infarct, ST-T abnormalities which resolved on follow-up ECGs. An echocardiogr am showed preserved LV systolic function, diastolic dysfunction, severe eccentric MR, mild T R. Further evaluation with stress test was recommended, however he declined to do it and wa s discharged. He then presented to [facility] 12/15/2019 with altered mental stat us and fever to 104F. He was found to have multiple laboratory abnormalities including elev ated white blood cell count with bandemia, anemia with hemoglobin 8.3 (was 11.7 on 10/31/19), lactic acidosis, blood cultures x2 positive with gram-positive cocci in chains. Chest x-ra y was normal with the exception of mild cardiomegaly. CT scan of the abdomen pelvis demonst rated low-density lesion in the spleen (with 2 satellite lesions disease, low-density lesion in the right lobe of the liver, and lesion in the left kidney. He was also tachycardic, in itial ECG showed a regular narrow complex tachycardia, rate 167 bpm with possible inferior i nfarct and nonspecific ST-T abnormalities, likely PSVT. He had palpitations with it. He was reportedly given diltiazem with decrease in his heart rate and follow-up ECG demonstrated NS R with a rate of 97, short MN and PACs. A repeat echo at [facility] showed preserved LV systolic f unction with a large mobile echodense mass attached to the posterior leaflet of the mitral v alve with severe eccentric anterior MR. There was also possible evidence for left to right atrial shunt as well as mild TR with moderate pulmonary hypertension. He was subsequently tr ansferred here. ID is following, and he is on Vanco and Gentamycin, but he will clearly need surgical MVR. He was seen Wed. by Rashaad Elder MD. He will need a ARNOLDO (to better evalu ate the possible ASD) and cardiac cath prior to surgery. EVENTS OVERNIGHT: He denies any symptoms at present. His H/H have dropped to 6.6 / 21.6, will need transfusion. He pulled out his Villa catheter with significant bleeding 2 days ag o, but bleeding has stopped. Will check stool for OB. Discussed with Rashaad Elder MD, who saw him with me today. There is some concern that his lack of insight into his condition c ould be related to septic brain embolization, brain MRI ordered to check this. He has agree d to ARNOLDO and LHC for tomorrow (will possibly need to defer cath if H/H are still significant ly low). I spoke with his via telephone. [place], sometimes go several weeks without other human contact. Past Medical History: Diagnosis Date Diabetes mellitus (HCC) Infectious endocarditis Severe mitral regurgitation History reviewed. No pertinent surgical history. Allergies Allergen Reactions Canola Oil [Vegetable Oil] GI Upset Pt states that he gets upset stomach when ingesting canola oil. Soybean Oil GI Upset Pt states he gets upset stomach when he ingests soybean oil. Medications Prior to Admission Medication Sig Dispense Refill aspirin (ASPIRIN ADULT LOW STRENGTH) 81 MG EC tablet Take 1 tablet (81 mg total) by valorie th Daily 30 tablet 0 Scheduled Medications aspirin 81 mg Oral Daily atorvaSTATin 80 mg Oral Nightly dilTIAZem 120 mg Oral Daily gentamicin 60 mg Intravenous Q12H gentamicin per pharmacy Other Pharmacy Consult heparin 5,000 Units Subcutaneous Q12H melatonin 3 mg Oral Nightly probiotic formula 1 capsule Oral Daily with breakfast vancomycin 1 g Intravenous Q24H vancomycin per pharmacy Other Pharmacy Consult Continuous Infusions PRN Medications acetaminophen, ondansetron PHYSICAL EXAM Vital Signs: BP 132/64 | Pulse 87 | Temp 36.9 C (98.5 F) (Oral) | Resp 19 | Ht 1.651 m (5' 5") | Wt 59 kg (130 lb 1.1 oz) | SpO2 99% | BMI 21.64 kg/m TELEMETRY: NSR, 9 beat run of PSVT yesterday afternoon, considerable baseline artifact I/O yesterday: 50 / 875, net -704 since admission GENERAL: Ill-appearing 69 yo M in no distress. Appears approximately stated age. HEENT: Normocephalic, atraumatic. EYES: PERRL, sclerae anicteric, no xanthelsasmas MOUTH: Oral mucosae moist, dentition adequate, no lesions noted NECK: No JVD, lymphadenopathy, thyromegaly, bruits. Carotid pulses are 2+ bilaterally LUNGS: Clear bilaterally, with no rales, rhonchi or wheezing noted, respirations unlabored HEART: Nondisplaced PMI, regular rate and rhythm, S1, S2 normal. 3/6 blowing holosystolic murmur at the apex radiating throughout the precordium, no rubs or gallops noted. ABDOMEN: Soft, nontender, no organomegaly, masses or bruits. Bowel sounds are normal in a ll 4 quadrants. The abdominal aortic pulsation is not palpable. EXTREMITIES: No edema. Radial pulses 2+ bilaterally with a normal right Kelton test. Femor al pulses are 2+ bilaterally without bruits. DP and PT pulses are 2+ bilaterally. SKIN: Warm and dry, capillary refill is normal, no splinter hemorrhages noted in nails, no Osler's nodes or Janeway lesions. NEUROLOGIC: Awake, alert and oriented x 3. No focal motor deficits. PSYCHIATRIC: Appropriate, affect appears normal, seems to have better insight into his con dition today, and is more accepting and trusting of medical recommendations. DATA Recent Labs Lab 12/18/19 0554 12/17/19 0443 NA 142 141 K 3.8 3.6 CL 111* 109 CO2 23 21* BUN 13 18 CREA 0.90 0.90 EGFR >60 >60 GLU 99 104* CALCIUM 7.9* 8.2* No results for input(s): POCTROP, TROPONINHS, TROPONIN, CK, CKMB in the last 168 hours. Recent Labs Lab 12/18/19 0554 12/17/19 1622 WBC 9.59 9.24 HGB 6.6* 7.0* HCT 21.6* 23.1* PLT 319 316 INR 1.0 -- ECHOs (12/16/19 - [facility]): 1. EF 65%. 2. Normal RV size and function. 3. Suspicion of left to right atrial shunt by color Doppler in subcostal view. 4. Large echodense mass attached to the posterior leaflet of the mitral valve, highly mobil e, measuring 2.5 x 1.4 x 1.6 cm consistent with vegetation, with severe eccentric anterior m itral regurgitation. 5. Mild tricuspid regurgitation with moderate pulmonary hypertension. 6. No evidence of pericardial effusion. (10/31/19 - [facility]): EF 55-60%. Impaired relaxation compatible with diastolic dysfunction (reversed E/A ratio). Mitral valve is thickened with mild annular calcification, borderline prolapse, and an eccentric jet of severe insufficiency directed towards inter-atrial septum. Structurally normal tricuspid valve with mild insufficiency and peak velocity consistent with normal pulmonary pressures. Left atrium is mildly enlarged. No previous studies available for comparison. PROBLEM LIST Principal Problem: Acute bacterial endocarditis Active Problems: Diet-controlled diabetes mellitus Severe protein-calorie malnutrition Infectious endocarditis Severe mitral regurgitation ASSESSMENT & PLAN 1. Infective tribal mitral valve endocarditis with large mobile vegetation attached to the posterior leaflet, and severe eccentric anterior mitral regurgitation, septic emboli suggest ed to spleen/liver/kidney on review of OSH CT abdomen/pelvis - Blood cultures x 2 positive a t OSH for gram+ cocci in chains. ID consulted, on IV Vanco and Gentamycin, blood cultures pe nding here. He was seen by Rashaad Elder MD and should undergo surgical mitral valve replac ement. Prior to this, he will need a ARNOLDO to evaluate the possible ASD and cardiac catheteri zation, scheduled for tomorrow AM. 2. Leukocytosis with bandemia, acute - Related to #1. 3. Anemia, acute - Hemoglobin 11.7 on 10/31/19, 8.3 on 12/15/19 labs at OSH. H/H continues to decrease, ? From IE, MR-related hemolysis, likely exacerbated by hematuria when he pulled ou t his Villa, transfusion ordered for today. Recheck H/H afterwards and in AM. Check stool for OB. Consider GI evaluation. 4. PSVT - Symptomatic with palpitations. Monitor telemetry for recurrence, may need EP eval uation if it recurs. Continue diltiazem 120 mg daily. 5. Possible ASD with a left to right atrial shunt on echocardiogram - needs a ARNOLDO for evalu ation. 6. Recent mild troponin elevation, ECG abnormalities - Patient is stable, without angina. R ecommend cardiac catheterization for evaluation of coronary anatomy, plan for Sunday. If he is found to have significant coronary lesions he may require CABG at the time of mitral valv e replacement. Continue aspirin 81 mg pending evaluation. Will initiate statin therapy, even if he does not have CAD and indication for secondary prevention his 10 year ASCVD risk is c alculated at > 20% (high) and high dose statin therapy is indicated. 7. Tricuspid regurgitation with pulmonary hypertension by 12/16/19 echocardiogram at [facility], mos t likely related to severe MR. 8. Type II diabetes mellitus - HgbA1C 6.2% on 10/31/19 admission and type [facility]. ?Typically the cutoff for diagnosis is 6.5% so technically patient may be considered to have prediabetes. As we are planning on upcoming cardiac catheterization, plea se do not start any metformin. Patient should be educated about lifestyle changes, consider consult for diabetes education. 9. Poor insight/understanding - he seems a bit better today, as yesterday he did not seem t o fully understand his medical conditions, or that his prognosis is very poor without surgic al intervention for his endocarditis. His told me via telephone today that prior to hi s current illness, his mental acuity was normal, raising concern that he may have had septic emboli to the brain as well. An MRI will be done today. Diagnostic Cardiac Catheterization via femoral or radial artery approach: the procedure, w ith its associated alternatives, benefits, and risks, the latter including but not limited t o possible need for more than one vascular access site, , ME, CVA, bleeding (including the need for blood transfusion), vascular damage (including the need for emergent surgical r epair, including PCI/stent placement or CABG), abnormal or life-threatening heart rhythms re quiring electrical defibrillation or placement of a transvenous pacemaker, renal failure (in cluding the possible need for short or long-term use of hemodialysis), allergic reactions/an aphylaxis, and the risks of moderate anesthesia/sedation, were discussed in detail. No guar antees were given. All questions were answered. The patient verbalized understanding and g ave informed consent for the procedure. The ARNOLDO procedure, with its associated alternatives, benefits and risks, the latter includi ng but not limited to , had-xxvzseshrd-fvlufit tear or rupture, risks of moderate anest hesia/sedation, vomiting and/or aspiration of gastric contents, etc. were discussed in detai l. No guarantees were given. All questions were answered. The patient verbalized underst anding and gave informed consent for the procedure. ASA 3 Mallampati 1 Code Status: Full Code Nj Miles RN - 12/17/2019 6:25 PM PDTA/O, forgetful at times, afebrile, SR on tele with PACs (HR 70-90s), BP 120-130, voids QS, SBA to BR, denies pain throughout shift, lungs clear, on room air, PIV x3, plan for ARNOLDO and heart cath, no acute events this shift Electronically signed by: Nj Curtis RN 12/17/2019 6:30 PM PDT Nj Miles RN - 0 12/17/2019 3:47 PM PDTAssumed care at 1530, bedside report received from Sarika DE LA CRUZ Electronically signed by: Nj Curtis RN 12/17/2019 3:48 PM PDT' eyna Neil RP H - 12/17/2019 2:55 PM PDT Aminoglycoside Dosing Per Pharmacy Subjective/Objective Reilly Hamm is a 69 y.o. male started on Gentamicin on 12/16/2019 for treatment of endocarditis utilizing Gentamicin Synergy Dosing . Pharmacy is consulted for aminoglycosid e dosing per Dr. Hart. The infectious disease consult service is following. Current antimicrobials: Antibiotics Aminoglycosides gentamicin 60 mg in sodium chloride 0.9% 50 mL IVPB (Completed) gentamicin 60 mg in sodium chloride 0.9% 50 mL IVPB gentamicin per pharmacy Glycopeptides vancomycin in NS (VANCOCIN) IVPB 1,500 mg (Completed) vancomycin in saline IVPB 1 g vancomycin in saline IVPB 1,000 mg (Completed) vancomycin per pharmacy Current Vital Signs: BP 127/73 | Pulse 92 | Temp 36.4 C (97.6 F) (Oral) | Resp 22 | Ht 1.651 m (5' 5") | Wt 59 kg (130 lb 1.1 oz) | SpO2 97% | BMI 21.64 kg/m Recent Labs Lab 12/17/19 0443 CREA 0.90 Estimated Creatinine Clearance: 63 mL/min (based on SCr of 0.9 mg/dL). Microbiology Results (72 hrs) Procedure Component Value Units Date/Time Coronavirus (COVID-19) NAAT [[id number]] Collected: 12/16/194 Order Status: Completed Lab Status: Final result Updated: 12/17/19 0022 SARS-CoV-2, NAAT (COVID-19) NEGATIVE Comment: This test was developed and its performance characteristics determined by [email or web address]. It has not been cleared or approved by the [place] FDA. This test has been authorized by FDA under an Emergency Use Authorization (EUA). Clinicians should be advised to consider a patients signs, symptoms, history, and results of other diagnostic tests when interpreting results. Testing performed at [facility];[address] [place] [address];[place] [address] Culture, Blood [[id number]] Collected: 12/16/191924 Order Status: Sent Lab Status: In process Updated: 12/16/192036 Specimen: Peripheral Blood Culture, Blood [[id number]] Collected: 12/16/191924 Order Status: Sent Lab Status: In process Updated: 12/16/192035 Specimen: Peripheral Blood Dosing History Date Dosing Regimen Admin Times Level SCr Comments Day 1 12/15 60 mg IV ONCE 2357 1.16 (on 12/14) Day 2 8 60 mg IV Q12H 0911 Due 2200 0.9 Day 3 Trough Due: 0930 Peak Due: 1100 Day 4 Day 5 *SCr = mg/dL [Level] = mcg/mL Assessment/Plan Renal function stable. Good urine output reported in 24 hours. Of note, serum creatinine flores s improved since gentamicin was started. CrCl is now >60 mL/min, however, given that CrCl is near cut off for dose adjustment, patient age >70 (so calculated CrCl likely an overestimat ion), and patient is on other nephrotoxic antibiotic, will not empirically change interval f rom Q12H to Q8H at this time. Other nephrotoxic medications: vancomycin Plan for dosing: Will continue the current regimen of 60 mg IV every 12 hours. Plan for levels: Trough: 12/17 @0930, 30 minutes prior to dose planned at 1000 Peak: 12/17 @1100, 30 minutes after the end of the infusion of dose planned at 1000 Desired Levels: Desired levels for Gram + Synergy: Target peak 3-5 mcg/mL, Target trough < 1.0 mcg/mL. Pharmacy will continue to follow and make adjustments to aminoglycoside therapy as indicate d. Thank You, Reyna Neil, PharmD, [facility] 12/17/19 2:51 PM PDT eyna Neil [facility] - 12/17/2019 2:42 PM PDT . Vancomycin Dosing Per Pharmacy Subjective/Objective Reilly Hamm is a 69 y.o. male started on vancomycin 12/15 for bacteremia (GPC in c hains) and endocarditis of mitral valve. The infectious disease consult service is following this patient and directing antibiotic therapy. The patient is also on synergy dosing gentam icin. Current Vital Signs: BP 127/73 | Pulse 92 | Temp 36.4 C (97.6 F) (Oral) | Resp 22 | Ht 1.651 m (5' 5") | Wt 59 kg (130 lb 1.1 oz) | SpO2 97% | BMI 21.64 kg/m Recent Labs Lab 12/17/19 0443 CREA 0.90 Estimated Creatinine Clearance: 63 mL/min (based on SCr of 0.9 mg/dL). Vancomycin Dosing History Date Dosing Regimen Admin Times Trough SCr Comments Day 1 12/15 1500 mg IV ONCE 2121 Day 2 12/16 1000 mg IV Q24H 0950 0.9 Day 3 12/17 Due: AM lab Day 4 12/18 Day 5 12/19 *SCr = mg/dL [vanco] = mcg/mL Assessment/Plan Patient qualifies for Q18H dosing per vancomycin dosing nomogram, however, will try to esta blish patient on Q12H or Q24H regimen for ease of dosing given anticipated long duration of treatment. Will continue with current regimen of vancomycin 1000 mg IV Q24H. A pre-steady state vancomycin random level has been set up for tomorrow morning (~18 hours from dose given today) to assess need for more aggressive dosing regimen. Will continue this plan. Plan for level: 12/18/19 at 0400. Pharmacy will continue to follow and make adjustments to vancomycin therapy as indicated. Thank You, Reyna Neil, PharmD, [facility] 12/17/19 2:41 PM PDT erry, Jeet Herndon, RD - 12/17/2019 9:21 AM PDT NUTRITION NOTE Summary Reason For Assessment: per organizational policy(Triggers for wt loss.) Pt admitted for acute bacterial endocarditis. At time of visit pt resting in bed, on room a ir, pleasant to speak with, and able to answer questions appropriately. Diet Experience Self-Selected Diet: Pt reports his appetite has been decreased for the past 4 months secona ry to illness, intermittent fever. Pt states at most he has been eating 1 x a day, states th ere have been some days he hasn't eaten at all due to illness and lack of appetite. Fluid/Beverage Intake Oral Fluids Amount: Ad jewel. Food Intake Type of Food/Meals: Current active diet order is: Diet Diet general; Effective Now Amount of Food: Per charting ate 75% of hamburger last night for dinner. Pt reports poor ap petite this morning, ate a fruit bowl for breakfast. Nourishments: Pt does not like Boost or Ensure shakes. Pt is agreeable to try chocolate mag ic cups. Nutritionally Relevant Medications Reviewed. Nutrition-Focused Physical Findings Extremities, Muscles and Bones: noted severe muscle loss to temples - hollow, deltoids/clav icles - prominent. Pt confirms severe muscle loss with increased weakness/decline in functio nal status. Anthropometrics Pt reports UBW 4 months ago at time of onset of decreased appetite was [address] Ind[address] e terrence wt loss of 25 lbs, 16%. Current Weight: 59 kg (130 lb 1.1 oz) Admit Weight: 59 kg (130 lb 1.1 oz) Biochemical Data, Medical Test, and Procedures Recent Labs 12/17/19 0443 NA 141 K 3.6 GLU 104* BUN 18 CREA 0.90 Estimated Energy Needs Energy Calorie Requirements: 1770 - 2065 octavio/day, 30 - 35 kcal/kg/admit wt 59 kg Estimated Protein Needs Range Gm Protein (gm): 71 - 86 g protein/day, 1.2 - 1.5 g pro/kg/admit wt 59 kg Nutrition Diagnosis severe PEM related to inability to consume sufficient PO as evidenced by illness, pt reports decreased appetite x 4 months, intake < 75% EER x 4 months, severe wt loss, severe m uscle loss. Malnutrition Nutrition Diagnosis: Severe protein-calorie malnutrition Type, Severe: Chronic illness Weight Loss: Other (see comment)(severe wt loss of 25 lbs, 16% over 4 months.) Energy Intake: Less than or equal to 75% energy intake compared to estimated needs for grea ter than or equal to 1 month Muscle Mass: Severe depletion Functional Status: (Pt reports decline in functional status, inreased fatigue.) Recommendations Continue general diet as ordered. Encourage high protein, nutrient dense foods. Send chocol ate magic cups BID as mid am, mid pm snack, more as desired. Consider appetite stimulant. Nutritional Risk Required Follow Up: ( 12/20) Jeet Keating RD 12/17/2019 9:21 AM PDT Problem: Malnutrition Goal: Improved Nutritional Intake Outcome: Ongoing, progressing Note: Pt will consume at least 50% of meals, supplements, avoid wt loss. a, Reilly Neil MD - 12/17/2019 9:05 AM PDT [facility] Adult Hospitalist Progress Note Hospital Day: 1 Patient Summary: Pt admitted on 12/15 for endocarditis SUBJECTIVE Pt feels same today, denies any chest pain, SOB, or FLORES Review of Systems Constitutional: Positive for malaise/fatigue. HENT: Negative. Eyes: Negative. Respiratory: Negative. Cardiovascular: Negative. Gastrointestinal: Negative. Genitourinary: Negative. Musculoskeletal: Negative. Skin: Negative. Neurological: Negative. Endo/Heme/Allergies: Negative. Psychiatric/Behavioral: Negative. All other systems reviewed and are negative. OBJECTIVE Vital Signs: BP 133/71 | Pulse 93 | Temp 36.4 C (97.6 F) (Oral) | Resp 24 | Ht 1.651 m (5' 5") | Wt 59 kg (130 lb 1.1 oz) | SpO2 98% | BMI 21.64 kg/m Physical Exam DATA BMP 141 109 18 104* 3.6 21* 0.90 CaMgPhos 8.2* LFT CBC Coag Last labs from current encounter as of 12/17/19-09:06 PDT No results for input(s): TROPONIN, BNP in the last 72 hours. No results for input(s): PROCALCITONI in the last 72 hours. Imaging: -Imaging reviewed and will be addressed as indicated in the assessment and plan. PROBLEM LIST Principal Problem: Acute bacterial endocarditis Active Problems: Diet-controlled diabetes mellitus Resolved Problems: * No resolved hospital problems. * IMPRESSION/PLAN: Active problems Endocarditis Pt admitted on 12/14 to OSH with 1 month of intermittent fevers and 4 months for fatigue. On admission pt met SIRS criteria with fever to 104, tachycardia to 160s, lactic Acid level of 5.8. Pt was given cefepime and zosyn 2/2 BC from [facility] grew out gram positive cocci in chains ECHO on 12/16/19 from outside hospital showed mitral valve endocarditis with mitral regurgita tion (ECHO on 10/31/19 showed Mitral valve is thickened with mild annular calcification, bord nicholas prolapse, and an eccentric jet of severe insufficiency directed towards inter-atrial septum) Repeat BC X 2 on 12/15 sent Pt started on gent and vanco on admission 12/16/19, managed by pharmacy Consult ID (Angie) consulted cardiology (Oh) Consulted CT surgery (Jerrod) Needs ARNOLDO per CT surgery, will need cardiac cath, unclear of timing Will make NPO after midnight tomorrow, unclear if cath or ARNOLDO planned yet CV Pt with SVT at outside hospital with rate to 160s, resolved on diltiazem drip which was wea sivakumar off upon arrival here Diltiazem CD 120 mg daily started Cardiology consult in am Pt was admitted to [facility] on with fatigue and poor appetite. Pt had some ischemic changes that resolved prior to discharge, he ruled out by enzymes and decl ined to stay for stress testing and left AMA, has not had stress test yet. Prior to that ho spitalization he had not seen a doctor in over 20 years Appreciate cardiology consult Plan for cardiac cath during hospitalization DM Pt with likely diet controlled DM HBA1C of 6.2 on 10/31/19 Outpatient follow up Anemia H/H of 12/03 with normal MCV (was 12/35 on 10/31/19) If hct drops further will need transfusion ? 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 male started on Gentamicin on 12/16/2019 for treatment of endocarditis utilizing Gentamicin Synergy Dosing . Pharmacy is consulted for aminoglycosid e dosing per Dr. Hart Current antimicrobials: Antibiotics Aminoglycosides gentamicin 60 mg in sodium chloride 0.9% 50 mL IVPB gentamicin 60 mg in sodium chloride 0.9% 50 mL IVPB gentamicin per pharmacy Glycopeptides vancomycin in NS (VANCOCIN) IVPB 1,500 mg vancomycin in saline IVPB 1,000 mg vancomycin per pharmacy Allergies: Canola oil [vegetable oil] and Soybean oil Quadriplegic/Paraplegic: No Diabetes: No Baseline Serum Creatinine: 0.95 mg/dL Current Vital Signs: BP 125/73 | Pulse 89 | Temp 36.5 C (97.7 F) (Oral) | Resp 26 | Ht 1.651 m (5' 5") | Wt 59 kg (130 lb 1.1 oz) | SpO2 95% | BMI 21.64 kg/m , Trosper body weight: 61.5 kg (135 lb 9.3 oz) Weight used for dosing: Total Body Weight No results for input(s): WBC, CREA in the last 168 hours. Invalid input(s): PROCALCITONIN CrCl cannot be calculated (Patient's most recent lab result is older than the maximum 3 day s allowed.). Microbiology Results (72 hrs) Procedure Component Value Units Date/Time Coronavirus (COVID-19) NAAT [[id number]] Collected: 12/16/192135 Order Status: Sent Lab Status: In process Updated: 12/16/192143 Specimen: Tissue from Nasopharynx Culture, Blood [[id number]] Collected: 12/16/191924 Order Status: Sent Lab Status: In process Updated: 12/16/192036 Specimen: Peripheral Blood Culture, Blood [[id number]] Collected: 12/16/191924 Order Status: Sent Lab Status: In process Updated: 12/16/192035 Specimen: Peripheral Blood Dosing History Date Dosing Regimen Admin Times Level SCr Comments Day 1 12/15 1 mg/kg q12h Plan 12/14 1.16 mg/dL Day 2 Day 3 Day 4 Day 5 *SCr = mg/dL [Level] = mcg/mL Assessment/Plan Plan for dosing: Gentamicin 60 mg IV every 12 hours (for crcl 40-60 ml/min) utilizing Genta micin Synergy Dosing . Rationale: Based on Kadlec dosing nomogram, current renal function, and indication. Other nephrotoxic medications: vancomycin Plan for level: Peak and Trough level to be drawn on 12/21/19 at 1100 and 12/18/19 at 0930 resp ectively. Desired levels for Gram + Synergy: Target peak 3-5 mcg/mL, Target trough < 1.0 mcg/mL. Since patient is concomitant therapy with vancomycin there is risk of accumulation, please follow for need to order levels sooner if patient's kidney function worsens. Pharmacy will continue to follow and make adjustments to aminoglycoside therapy as indicate d. Thank You, Tayler Posey, PharmD 12/16/2019 9:50 PM PDT ayler Posey PharmD - 12/16/2019 9:49 PM PDT . Vancomycin Dosing Per Pharmacy Subjective/Objective Reilly Hamm is a 69 y.o. male started on vancomycin 12/15 for bacteremia (GPC in c hains), endocarditis. Additional antimicrobials: gentamicin (received cefepime and zosyn at OSH) Quadriplegic/Paraplegic: no Diabetes: no Baseline Serum Creatinine: 0.95 Current Vital Signs: BP 125/73 | Pulse 89 | Temp 36.5 C (97.7 F) (Oral) | Resp 26 | Ht 1.651 m (5' 5") | Wt 59 kg (130 lb 1.1 oz) | SpO2 95% | BMI 21.64 kg/m No results for input(s): WBC, PROCALCITONI, VANCO, VANCOTROUGH, VANCOPEAK, CREA in the last 168 hours. CrCl cannot be calculated (Patient's most recent lab result is older than the maximum 3 day s allowed.). Microbiology Results (72 hrs) Procedure Component Value Units Date/Time Culture, Blood [[id number]] Collected: 12/16/191924 Order Status: Sent Lab Status: In process Updated: 12/16/192036 Specimen: Peripheral Blood Culture, Blood [[id number]] Collected: 12/16/191924 Order Status: Sent Lab Status: In process Updated: 12/16/192035 Specimen: Peripheral Blood Vancomycin Dosing History Date Dosing Regimen Admin Times Trough SCr Comments Day 1 12/15 1500mg 12/14 1.16 Day 2 Day 3 (check cx on day 3) (Discontinue if cultures negative) Day 4 Day 5 *SCr = mg/dL [vanco] = mcg/mL Assessment/Plan Vancomycin Load: 1500 mg (25 mg/kg) IV x 1. Was sufficient Maintenance Dose: 1000 mg IV q12h (~17 mg/kg/dose) x 1, followed by 1000mg q24h with plan f or random level prior to 12/17 @1000 dose Rationale: Based on Kadlec dosing nomogram, current renal function, and desired trough. Target trough: 15-20 mcg/ml Concurrent potentially nephrotoxic medications: gentamicin Culture monitoring: Will monitor culture(s) for growth, identification, and sensitivities. Plan for level: 12/17 at with am labs. Pharmacy will continue to follow and make adjustments to vancomycin therapy as indicated. Thank You, Tayler Posey PharmD, 12/16/2019, 9:29 PM PDT Sarika Turner RN - 12/16/2019 6:39 PM [facility] Cardiazem stopped upon a rrival. Pt saline locked. This nurse tried to contact MD regarding pt's arrival to get orders. Able to get ahold of t susan MD at 1820. stating that he is not the admitting MD and to try another MD. PCC contact ed. MD not on the floor at this time. Pt placed in contact droplet precuautions d/t COVID test pending with [facility].Electron ically signed by Sarika Pinedo RN at 12/16/2019 7:41 PM PDTdocumented in this encounter H&P Notes Reilly Galvan MD PhD - 12/24/2019 7:27 AM PDTSURGICAL INTERIM HISTORY & PHYSICAL UPDAT E Pt. Name/Age/: Reilly Hamm 69 y.o. 1950 Date of admission: 12/16/2019 The current H&P was reviewed. The patient was reexamined. Re-evaluation of the patient co nfirms the necessity for the scheduled procedure. No change has occurred in the patient s condition since the H&P was completed less than 30 days ago. VERIFICATION OF CONSENT (PARQ) The patient was counseled regarding the procedure, its indications, risks, potential compli cations and alternatives. Any questions were answered. Consent was obtained. Electronically signed by: Reilly Galvan MD PhD, 12/24/2019 7:27 AM PDT [facility] Electronically signed by Reilly Galvan MD PhD at 12/12 7:27 AM PDTRashaad Elder MD - 12/17/2019 2:40 PM PDTAukaity 2019 Reason for consultation: Mitral valve endocarditis History presenting illness: I have been asked to see this 69-year-old gentleman regarding his mitral valve endocarditis . Apparently he has been ill for approximately 4 months during which time he has lost 40 po unds worth of weight and has had fever and chills and sweats throughout that time. He denie s any history that would be consistent with embolic events. The patient was hospitalized on October 30 at a different hospital at which time he had signif icant elevation of his CRP and a mild elevation of his troponin. 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 The patient's ejection fraction was normal. The patien t was offered further evaluation but decided to leave hospital. The patient continued to feel unwell and went for further evaluation to a different hospita where apparently it was noted he had altered mental status and a fever of 104 F. He had a slightly elevated troponin at the time. [facility] showed evidence of a vegetation on the mitral valve measuring 24 mm x 16 mm with the same jet of eccentric severe mitral regurgitation. The patient denied any symptoms consistent wi th congestive heart failure and still no evidence of any embolic events. The patient went on to have blood cultures done that showed gram-positive cocci in chains. The patient also apparently had a CT scan done of the abdomen showing possible emboli to hi s spleen and liver although I have not seen these x-rays myself nor read the actual report. The patient has been transferred to [facility] for further treatment and evaluation. He has been started on the appropriate antibiotics. He has been seen by the infectious dise ase service. They make the comment that he has extremely poor dentition. Past medical history: Diabetes Family history: Negative for endocarditis Social history: The patient has smoked for over 50 years of approximately half pack cigaret tejinder a day and stopped at a couple of years ago. He still chews tobacco. He is . He does not drink very much. He is quite active Allergies: Canola oil and soybean oil Home medications: Aspirin Previous surgical history: None Complete review of systems otherwise completely negative Laboratory investigations show a normal renal profile but there are no other lab tests back for this admission yet. Of concern is that cardiology notes his hemoglobin is 11.7 back in October 30 but was only 8.3 at the outside hospital in December 14. On examination the patient's blood pressure is 125/70 with a pulse of 90 and regular. He i s afebrile. He apparently is 5 feet 5 inches tall and weighs 130 pounds with a BMI of 21.64 . His oxygen saturation on room air is 98%. He appears quite comfortable and not short of breath. His skin is clear. Examination ears eyes nose and throat are negative. His mental status grossly intact and he appears alert and oriented. He has good air entry bilaterally. His h eart sounds are normal but with a significant murmur heard at the apex. His abdomen is soft and nontender with no mass organomegaly. He has good strong femoral and distal pulses with no swelling of ankles or varicose veins Assessment and plan: This is a 69-year-old man with subacute endocarditis possibly present for months at this po int. He has been noted on echocardiogram back in October to have eccentric severe mitral insuf ficiency which is not changed from his December 15 echocardiogram. He has a large vegetation o n his posterior leaflet. He is only just started on effective treatment for his endocarditi s with antibiotics. He shows no evidence of heart failure clinically. He has very bad dent ition. He has been a long-term smoker and has diabetes and presented with an elevated tropo aj and ST segment changes in October of this year. I have spoken with the infectious disease specialist and agree that the patient will likely require surgery for treatment of his infective endocarditis at one point. I agree with the specialist that a ARNOLDO would be helpful in identifying the amount of regurgitation present a nd its position. Given that the patient was previously identified to have likely ischemic c oronary disease and he is a long-term smoker and diabetic I would agree with the cardiology opinion that he have a cardiac catheterization performed. Infectious disease specialist womary jo whyte also like the patient seen by dentist and possibly have his teeth dealt with before surgi ani intervention. I have discussed all of this with the patient and he appears to understand although I agree with the cardiology evaluation that perhaps he does not totally grasp the concept at this p oint. I will follow him along with infectious disease and cardiology and evaluate with them the a ppropriate timing for surgical intervention Thank you very much Your sincerely Rashaad Elder MD, FRCSC, FACS a, Reilly Neil MD - 7:20 PM PDT Patient Name: Reilly Hamm Date of Admission: 12/16/2019 Referring Provider: Source of Information: patient-Reliability Chief Complaint: Fever and weakness HPI: Pt is a 69 y/o male with no significant PMH admitted to [facility] on 12/15/19 wit h weakness for 4 months and intermitted fever for up to 1 month. Temperature was 104 on day of admission. Pt's workup remarkable for WBC of 17, CRP of 90, ECHO showed mitral valve en docarditis with mitral valve regurgitation. Pt was started on zosyn and cefepime and 2/2 BC from admission grew out gram positive cocci in chains. Pt was transferred to [facility] on 12/15 for further treatment and evaluation. Upon transfer pt states at he is still weak but n o longer has fevers. He denied any recent dental procedures, sick contacts, trauma, travel, or sick contacts Review of Systems Constitutional: Positive for fever and malaise/fatigue. HENT: Negative. Eyes: Negative. Respiratory: Negative. Cardiovascular: Negative. Gastrointestinal: Negative. Genitourinary: Negative. Musculoskeletal: Negative. Skin: Negative. Neurological: Negative. Endo/Heme/Allergies: Negative. Psychiatric/Behavioral: Negative. All other systems reviewed and are negative. PMH: Past Medical History: Diagnosis Date Diabetes mellitus (HCC) PSH: History reviewed. No pertinent surgical history. Medications: No current facility-administered medications on file prior to encounter. Current Outpatient Medications on File Prior to Encounter Medication Sig Dispense Refill aspirin (ASPIRIN ADULT LOW STRENGTH) 81 MG EC tablet Take 1 tablet (81 mg total) by valorie th Daily 30 tablet 0 Allergies: Allergies Allergen Reactions Canola Oil [Vegetable Oil] GI Upset Pt states that he gets upset stomach when ingesting canola oil. Soybean Oil GI Upset Pt states he gets upset stomach when he ingests soybean oil. FH: family history includes Asthma in his father. SH: reports that he quit smoking about 2 years ago. He started smoking about 54 years ago. He has a 20.00 pack-year smoking history. He quit smokeless tobacco use about 3 years ago. Hi s smokeless tobacco use included chew. He reports previous alcohol use. He reports that he d oes not use drugs. Physical Exam: BP 125/73 | Pulse 89 | Temp 36.5 C (97.7 F) (Oral) | Resp 26 | Ht 1.651 m (5' 5") | Wt 59 kg (130 lb 1.1 oz) | SpO2 95% | BMI 21.64 kg/m Physical Exam Vitals signs reviewed. HENT: Head: Normocephalic. Nose: Nose normal. Mouth/Throat: Mouth: Mucous membranes are moist. Eyes: Pupils: Pupils are equal, round, and reactive to light. Neck: Musculoskeletal: Normal range of motion. Cardiovascular: Rate and Rhythm: Normal rate and regular rhythm. Pulses: Normal pulses. Heart sounds: Murmur present. Pulmonary: Effort: Pulmonary effort is normal. Breath sounds: Normal breath sounds. Abdominal: General: Abdomen is flat. Palpations: Abdomen is soft. Musculoskeletal: Normal range of motion. Skin: General: Skin is warm. Neurological: General: No focal deficit present. Mental Status: He is alert and oriented to person, place, and time. Psychiatric: Mood and Affect: Mood normal. Behavior: Behavior normal. Labs: [facility] CaMgPhos LFT CBC Coag Last labs from current encounter as of 12/16/19-20:58 PDT No results for input(s): TROPONINT, CKMB in the last 168 hours. Invalid input(s): CKTOTAL, TROPONINI, CKMBINDEX, PCOTNI No results for input(s): CLARITYU, LEUKOCYTESUR, UROBILINOGEN, PHUR, BLOODU, KETONES, BILIR UBINUR, GLUCOSEU, RBCU, BACTERIA, COMU in the last 168 hours. Invalid input(s): UCOL, SPECGRAV, NITRITE, UPRO Imaging: Imaging reviewed and will be addressed as indicated in the assessment and plan. EKG: NSR at 97 ACTIVE COMORBIDITIES: Active comorbid conditions include: - endocrine problem - diabetes; controlled (Hgb A1C < 6.5); without complications Problem List: Principal Problem: Acute bacterial endocarditis Active Problems: Diet-controlled diabetes mellitus Resolved Problems: * No resolved hospital problems. * Assessment and Plan: Endocarditis Pt admitted on 12/14 to OSH with 1 month of intermittent fevers and 4 months for fatigue. On admission pt met SIRS criteria with fever to 104, tachycardia to 160s, lactic Acid level of 5.8. Pt was given cefepime and zosyn 2/2 BC from [facility] grew out gram positive cocci in chains ECHO showed mitral valve endocarditis with mitral regurgitation Repeat BC X 2 on 12/15 sent Pt started on gent and vanco Consult ID Will consult cardiology in am Consult CT surgery in am CV Pt with SVT at outside hospital with rate to 160s, resolved on diltiazem drip which was wea sivakumar off upon arrival here Diltiazem CD 120 mg daily started Cardiology consult in am Pt was admitted to [facility] on with fatigue and poor appetite. Pt had some ischemic changes that resolved prior to discharge, he ruled out by enzymes and decl ined to stay for stress testing and left AMA, has not had stress test yet. 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 Kindly, see daily progress notes for further details. documented in this enco unter Procedure Notes Josh Montoya, Neurodiagnostic Tech - 12/25/2019 3:04 PM PDTAssociated Order(s): EEGF ormatting of this note might be different from the original. [facility] Neurodiagnostic Dept [address] [place] [address] Patient: Reilly Hamm ID: [id number] : 1950 Age: 69 Gender: male Room #: 72754 Physician: Luis E Malcolm [employer] Packaging Machine Operator: Josh Montoya Ref. Physician: Carolin MCGEE Recording Date: 12/25/2019 Duration: 00:20:58 Report Date: 12/25/2019 2:58 PM Medications: insulin, keppra, precedex, dilaudid History: seizure a few hours after mitral valve replacement surgery EEG Description: Background: Occipital rhythm: Present at time Frequency: 5-6 Hz Voltage: Medium Organization: Poor Reactivity to eye opening/closure: No clear reactivity. Other background activity: Generalized irregular theta and delta activity. Drowsiness: Present. Sleep: Light sleep. Activation: Hyperventilation: Not done. Photic Stimulation: Done, No definite physiologic driving. EEG Diagnosis: This EEG is suggestive of generalized nonspecific cerebral dysfunction. No c lear ictal or intericatal discharges were seen. Clinical correlation is recommended. documented in this encounter Consult Notes Olvin Mckeon MD - 12/29/2019 2:23 PM PDT [facility] Service: Cardiology Initial Consult Note Name of Journeyman Power Plant Operator: Olvin Mckeon MD Date of Admission: 12/16/2019 Reason for Consultation: First-degree AV block CHIEF COMPLAINT: Endocarditis HISTORY OF PRESENT ILLNESS: Reilly Hamm is 69 y.o. male with possible history of type 2 diabetes, hypertensi on who was transferred to our hospital for mitral valve endocarditis and is postop day #5 st atus post mitral valve replacement. Patient found on ECG 12/26/2019 to have new onset first- degree AV block compared to prior ECGs. REVIEW OF SYSTEMS Review of Systems Constitution: Negative for diaphoresis. HENT: Negative for stridor. Eyes: Negative for blurred vision. Cardiovascular: Negative for chest pain, dyspnea on exertion, irregular heartbeat, leg swel ling, near-syncope, orthopnea, palpitations, paroxysmal nocturnal dyspnea and syncope. Respiratory: Negative for shortness of breath. Hematologic/Lymphatic: Does not bruise/bleed easily. Musculoskeletal: Negative for myalgias. Gastrointestinal: Negative for nausea and vomiting. Neurological: Negative for dizziness and light-headedness. Psychiatric/Behavioral: Negative for altered mental status. PAST MEDICAL & SURGICAL HISTORY Past Medical History: Diagnosis Date Diabetes mellitus (HCC) Infectious endocarditis Mitral valve replaced 12/24/2019 29 mm Saint Jose R Epic bioprosthetic valve Severe mitral regurgitation Past Surgical History: Procedure Laterality Date CARDIAC CATHERIZATION N/A 12/19/2019 Procedure: CV LHC; Surgeon: Jeet Tejeda MD; Location: [facility] CV LAB CARDIAC CATHERIZATION N/A 12/19/2019 Procedure: CV COR ANGIO; Surgeon: Jeet Tejeda MD; Location: [facility] CV LAB CARDIAC CATHERIZATION Left 12/19/2019 Procedure: CV LV; Surgeon: Jeet Tejeda MD; Location: [facility] CV LAB MITRAL VALVE REPLACEMENT N/A 12/24/2019 Procedure: MITRAL VALVE REPLACEMENT; Surgeon: Reilly Galvan MD PhD; Location: [facility] CHRISTI N OR TOOTH EXTRACTION N/A 12/20/2019 Procedure: EXTRACTION TEETH; Surgeon: Job Menjivar DMD; Location: [facility] MAIN OR MEDICATIONS Home Medications Medications Prior to Admission Medication Sig Dispense Refill aspirin (ASPIRIN ADULT LOW STRENGTH) 81 MG EC tablet Take 1 tablet (81 mg total) by valorie th Daily 30 tablet 0 Inhospital Medications acetaminophen 1,000 mg Oral Q8H ascorbic acid 500 mg Oral Daily atorvaSTATin 40 mg Oral Nightly cefTRIAXone 2 g Intravenous Q12H ferrous sulfate 325 mg Oral BID WC furosemide 40 mg Intravenous BID (8 and 16) heparin 5,000 Units Subcutaneous Q8H insulin lispro 0-18 Units Subcutaneous 4x Daily WC and HS levETIRAcetam 500 mg Intravenous Q12H lisinopril 2.5 mg Oral Daily magnesium hydroxide 30 mL Oral Nightly potassium chloride 20 mEq Oral BID warfarin 5 mg Oral Daily - Warfarin dextrose 10% Allergies Allergies Allergen Reactions Canola Oil [Vegetable Oil] GI Upset Pt states that he gets upset stomach when ingesting canola oil. Soybean Oil GI Upset Pt states he gets upset stomach when he ingests soybean oil. FAMILY HISTORY Family History Problem Relation Age of Onset Asthma Father SOCIAL HISTORY Social History Socioeconomic History Marital status: Spouse name: Not on file Number of children: Not on file Years of education: Not on file Highest education level: Not on file Occupational History Not on file Social Needs Financial resource strain: Not on file Food insecurity Worry: Not on file Inability: Not on file Transportation needs Medical: Not on file Non-medical: Not on file Tobacco Use Smoking status: Former Smoker Packs/day: 0.50 Years: 40.00 Pack years: 20.00 Start date: 12/15/1965 Quit date: 06/17/2017 Years since quittin.5 Smokeless tobacco: Former User Types: Chew Quit date: 11/14/2016 Substance and Sexual Activity Alcohol use: Not Currently Drug use: Never Sexual activity: Not Currently Lifestyle Physical activity Days per week: Not on file Minutes per session: Not on file Stress: Not on file Relationships Social connections Talks on phone: Not on file Gets together: Not on file Attends mosque service: Not on file Active member of club or organization: Not on file Attends meetings of clubs or organizations: Not on file Relationship status: Not on file Intimate partner violence Fear of current or ex partner: Not on file Emotionally abused: Not on file Physically abused: Not on file Forced sexual activity: Not on file Other Topics Concern Not on file Social History Narrative Not on file PHYSICAL EXAM Vital Signs: BP 149/68 | Pulse 63 | Temp 36.4 C (97.6 F) (Oral) | Resp 18 | Ht 1.651 m (5' 5") | Wt 64.7 kg (142 lb 10.2 oz) | SpO2 100% | BMI 23.74 kg/m Intake/Output Summary (Last 24 hours) at 12/29/2019 1423 Last data filed at 12/29/2019 1357 Gross per 24 hour Intake 550 ml Output 2990 ml Net -2440 ml Constitutional: Well-developed. Neck: No JVD present. No thyromegaly present. Cardiovascular: Regular rhythm, S1 normal and S2 normal. No murmur heard. Pulses: Carotid pulses are 2+ on the right side, and 2+ on the left side. Radial pulses are 2+ on the right side, and 2+ on the left side. Pulmonary/Chest: Effort normal and breath sounds normal. No wheezes. No rales. Abdominal: Soft. No tenderness. Musculoskeletal: No edema. Neurological: Alert. No cranial nerve deficit. Skin: Warm and dry. DATA CBC with Differential: Lab Results Component Value Date WBC 7.35 12/29/2019 RBC 2.94 (L) 12/29/2019 HGB 8.3 (L) 12/29/2019 HCT 26.4 (L) 12/29/2019 HCT 23 (LL) 12/24/2019 PLT 271 12/29/2019 MCV 89.8 12/29/2019 MCH 28.2 12/29/2019 MCHC 31.4 (L) 12/29/2019 CMP: Lab Results Component Value Date NA 139 12/29/2019 K 4.0 12/29/2019 CL 108 12/29/2019 CO2 25 12/29/2019 BUN 13 12/29/2019 CREA 0.81 12/29/2019 EGFR >60 12/29/2019 GLU 95 12/29/2019 CALCIUM 8.2 (L) 12/29/2019 BILITOT 0.7 10/31/2019 EKG (12/29/2019): Unusual P axis, possible ectopic atrial rhythm Left axis deviation ST & Marked T wave abnormality, consider anterolateral ischemia Prolonged QT Abnormal ECG When compared with ECG of 28-DEC-2019 10:19, Ectopic atrial rhythm has replaced Sinus rhythm Last Echo (12/2019): There is a vegetation on the mitral valve, attached to the atrial surface of the P2 s egment of the posterior leaflet, measuring 3.1 cm. It is shaggy and irregular, and highly mo bile. There is also a smaller vegetation attached to the ventricular surface of the leaflet. Severe eccentric mitral regurgitation. It causes reversal of systolic flow in the pul monary veins. There is normal left ventricular systolic function. The left ventricular ejection fra ction is 70%. Normal size right ventricle, with normal right ventricular systolic function. Moderately dilated left atrium. There is a small secundum atrial septal defect (ASD), measuring only 2.5 mm, with min imal [id number] shunting. There is no evidence of [id number] shunting on the intraveno us bubble contrast study. Last stress test: Last cath (12/2019): Summary No angiographically significant coronary artery disease. Severe (4+) mitral regurgitation due to endocarditis. Carotid US: AAA screening: Lower extremity US: OTHERS: ASSESSMENT & PLAN Reilly Hamm is 69 y.o. male with the following problems and associated assessmen t and plan: 1. Mitral valve infective endocarditis status post 29 mm Saint JudeEpic bioprosthetic va lve mitral valve replacement: Postop day #5. Surgical management per CT surgery. 2. First-degree AV block: New onset per ECG performed 12/26/2019 compared to prior. No loi dence of aortic root abscess or involvement of Aortomitral intervalvular fibrosa on preopera tive ARNOLDO's. Patient is asymptomatic with exertion, denies any presyncope or syncope. No indication for PPM implant or further cardiac rhythm monitoring at this time. 3. Hypertension: Variable control inpatient. Recommend medication up titration as an outp atient. 4. Secundum ASD: Noted on ARNOLDO performed 12/19/2019. Asymptomatic. Will follow clinically. Patient should be stable for discharge per CTS with outpatient followup with Dr. Tejeda in 2- 4 weeks in our office. Thank you for allowing me to participate in the care of this patient. Code Status: Full Code Primary Care Physician: No Physician on file Olvin Mckeon MD 12/29/2019 Jeet Marshall, RD - 12/25/2019 2:06 PM PDTAssociated Order(s): IP CONSULT TO NUTRITION SERVICES NUTRITION NOTE Summary Reason For Assessment: per organizational policy, nurse/nurse practitioner consult(H risk follow up. Consult - TF recs per RD.) Pt is POD # 1 MVR, is intubated, sedated. Per discussion in rounds plan is to start TF. Diet Experience Self-Selected Diet: Pt in [facility] has food allergy/intolerance to soybean oil and canola oil. Spoke with pt's Nathalie at [phone]. Nathalie states pt does not have a soybean oil allergy or intolerance but avoids soy for health purposes. Pt does have a intolerance to can brian oil - reaction is vomiting, heartburn, and diarrhea. Food Intake Type of Food/Meals: Current active diet order is: Diet Diet NPO; strict NPO; Effective Now Nutritionally Relevant Medications Docusate, humalog, insulin drip. D5 1/2 NS at 50 ml/hr, precedex. Nutrition-Focused Physical Findings Overall Appearance: intubated, sedated. Nerves and Cognition: Confused, agitated/restless per RN. Skin: NPWT - chest. Anthropometrics Current Weight: 63 kg (138 lb 14.2 oz) Admit Weight: 59 kg (130 lb 1.1 oz) Biochemical Data, Medical Test, and Procedures Recent Labs 12/25/19 1231 12/25/19 0418 NA -- -- 140 K 3.9 < > 4.0 GLU -- -- 98 BUN -- -- 14 CREA -- -- 0.90 MG -- -- 2.6* < > = values in this interval not displayed. Estimated Energy Needs Energy Calorie Requirements: 1770 - 5 octavio/day, 30 - 35 kcal/kg/admit wt 59 kg Estimated Protein Needs Range Gm Protein (gm): 71 - 86 g protein/day, 1.2 - 1.5 g pro/kg/admit wt 59 kg Nutrition Diagnosis Inadequate oral intake related to sedation induced inability to eat as evidence buy NPO ord er, on MV. severe PEMrelated to inability to consume sufficient POas evidenced by illnes s, pt reports decreased appetite x 4 months, intake < 75% EER x 4 months, severe wt loss, se terrence muscle loss. Recommendations Recommend Peptamen 1.5 with prebio (canola oil free formula) advance as tolerated to goal r ate of 60 ml/hr (x 20hr/d) to provide 1800 kcal, 82 g protein, 1200 ml TV, 926 ml free water which meets 100% of pt's estimated needs. Free water flushes 30 ml q 4 hrs/changes per MD/N P. Monitor K+, Mg, and phos and replace to wnl if low before starting/advancing feeds as pt is at risk for refeeding syndrome. Nutritional Risk Required Follow Up: 3 days(8/16 H) Jeet Keating RD,CD 12/25/2019 2:15 PM PDT Problem: Malnutrition Goal: Improved Nutritional Intake Outcome: Ongoing, progressing Note: Pt will tolerate TF at goal. arolin Lang A RNP - 12/24/2019 12:48 PM PDT [facility] Service: Flare Worker Initial Consult Note Reilly Hmam 69 y.o. Date of Admission: 12/16/2019 Reason for Consultation: bacterial endocarditis Requesting Physician: Dr. Galvan, Cardiothoracic Surgery History Obtained From: chart review, reason patient could not give history: intubated/sedat ed CHIEF COMPLAINT: weakness Subjective HISTORY OF PRESENT ILLNESS The patient is a 69 y.o. male with significant past medical history of diabetes mellitus wh o presented to [facility] 12/14 due to a 4 month history of weakness and 1 month hist ory of fevers. Echocardiogram was perfromed which revealed mitral valve endocarditis with mi tral valve regurgitation. He was started on zosyn and cefipime. Blood cultures obtained on a dmission grew out GPC in chains in 2/2 bottles. [facility] on 12[facility]16 and admitted to the acute care floor. CT revealed septic emboli in the spleen, liver, left kidney and brain. Initial blood cultures grew viridans group streptococcus. He w as referred to CTS for consideration of mitral valve replacement. Blood cultures have remain ed negative for the past 6 days and he was maintained on 2g ceftriaxone Q12 for SIGN WRITER HAND coverage . His carious teeth were removed by OMFS on 12/19. He developed pulmonary edema and was diures ed over the last 48 hours with lasix. He underwent mitral valve replacement on 12/[address] Galvan. ICU Timeline: 12/13 - To ICU s/p MVR with Dr. Galvan Events Intraop/on arrival to ICU per handoff report with anesthesiologist: - HD stable, paced @ 80 mcg, on epi at 1.5 mcg, 30 mcg rojas - intubated/sedated on precedex. Easy airway - intraop ARNOLDO with LVEF 55% - normal RV, no stenosis, no valve leaks - Fluids: crystalloid 1000 mL, cell saver 1100 mL, EBL 1250 mL UOP 495 ml Active comorbid conditions include: - endocrine problem - diabetes - sepsis; severe REVIEW OF SYSTEMS Unable to review due to intubation and mechanical ventilation PAST MEDICAL HISTORY Past Medical History: Diagnosis Date Diabetes mellitus (HCC) Infectious endocarditis Severe mitral regurgitation PAST SURGICAL HISTORY Past Surgical History: Procedure Laterality Date CARDIAC CATHERIZATION N/A 12/19/2019 Procedure: CV LHC; Surgeon: Jeet Tejeda MD; Location: [facility] CV LAB CARDIAC CATHERIZATION N/A 12/19/2019 Procedure: CV COR ANGIO; Surgeon: Jeet Tejeda MD; Location: [facility] CV LAB CARDIAC CATHERIZATION Left 12/19/2019 Procedure: CV LV; Surgeon: Jeet Tejeda MD; Location: [facility] CV LAB TOOTH EXTRACTION N/A 12/20/2019 Procedure: EXTRACTION TEETH; Surgeon: Job Menjivar DMD; Location: [facility] MAIN OR ALLERGIES Allergies Allergen Reactions Canola Oil [Vegetable Oil] GI Upset Pt states that he gets upset stomach when ingesting canola oil. Soybean Oil GI Upset Pt states he gets upset stomach when he ingests soybean oil. MEDICATIONS PRIOR TO ADMISSION Medications Prior to Admission Medication Sig Dispense Refill aspirin (ASPIRIN ADULT LOW STRENGTH) 81 MG EC tablet Take 1 tablet (81 mg total) by valorie th Daily 30 tablet 0 SCHEDULED MEDICATIONS Reviewed. FAMILY HISTORY OF SIGNIFICANCE Family History Problem Relation Age of Onset Asthma Father SOCIAL HISTORY Social History Socioeconomic History Marital status: Spouse name: Not on file Number of children: Not on file Years of education: Not on file Highest education level: Not on file Occupational History Not on file Social Needs Financial resource strain: Not on file Food insecurity Worry: Not on file Inability: Not on file Transportation needs Medical: Not on file Non-medical: Not on file Tobacco Use Smoking status: Former Smoker Packs/day: 0.50 Years: 40.00 Pack years: 20.00 Start date: 12/15/1965 Quit date: 06/17/2017 Years since quittin.5 Smokeless tobacco: Former User Types: Chew Quit date: 11/14/2016 Substance and Sexual Activity Alcohol use: Not Currently Drug use: Never Sexual activity: Not Currently Lifestyle Physical activity Days per week: Not on file Minutes per session: Not on file Stress: Not on file Relationships Social connections Talks on phone: Not on file Gets together: Not on file Attends mosque service: Not on file Active member of club or organization: Not on file Attends meetings of clubs or organizations: Not on file Relationship status: Not on file Intimate partner violence Fear of current or ex partner: Not on file Emotionally abused: Not on file Physically abused: Not on file Forced sexual activity: Not on file Other Topics Concern Not on file Social History Narrative Not on file PHYSICAL EXAM VITAL SIGNS Temp: [36.4 C (97.6 F)-36.7 C (98.1 F)] 36.7 C (98 F) Pulse: [81-88] 81 Resp: [18-20] 18 BP: (121-149)/(60-88) 149/82 Intake/Output Summary (Last 24 hours) at 12/24/2019 1248 Last data filed at 12/24/2019 1233 Gross per 24 hour Intake 1588 ml Output 1570 ml Net 18 ml EXAM GEN: intubated and sedated post op NEURO: PERRLA, EOMI, no facial asymmetry, moving extremities HEENT: sclerae clear, nonicteric, oral mmm, pink, no exudates NECK: supple, trachea midline CV: RRR, S1/S2, no murmur, rub or gallop, peripheral pulses palpable, cap refill brisk CHEST: midline incision with dressing, c/d/i, no erythema or oozing, CT exiting subxiphoid process LUNGS: clear b/l, no wheezing, rales or rhonchi, symmetric chest expansion, even/unlabored respirations on MV ABD: soft, nondistended, nontender to palpation, no masses EXTR: no edema, clubbing or cyanosis SKIN: warm, dry, no rash or mottling; no e/o skin breakdown over the occiput, scapulae, elb ows, sacrum or heels LINES/TUBES: PIV, villa, CT x 2, R IJ cordis, A-line PROBLEM LIST Principal Problem: Acute bacterial endocarditis Active Problems: Diet-controlled diabetes mellitus Severe protein-calorie malnutrition Infectious endocarditis Severe mitral regurgitation Endocarditis of mitral valve DUNIA (acute kidney injury) Resolved Problems: * No resolved hospital problems. * Diagnostic Studies: Available labs and images have been reviewed and will be addressed as indicated in the assessment and plan. ASSESSMENT & PLAN NEURO: Septic emboli to brain with intermittent confusion - secondary to mitral valve endocardi tis. Dr. Ryan consulted. CAM-ICU monitoring Sedation holiday as tolerates. CV: Paroxysmal SVT - symptomatic with palpitations, on diltiazem. Cardiology following. Cont telemetry monitoring PULM: Intubated for airway protection. Cont lung protective strategy 6cc/kg IBW, pPlat<30 Work towards ventilator liberation, daily spontaneous breathing trials per postop CTS marcio col. GI/NUTRITION: NPO for now. RD recs for TF if requiring prolonged intubation. RENAL/LYTES: DUNIA - has improved over last 3 days. Likely secondary to critical illness. High risk to develop worsening DUNIA post op. Follow closely. Renally dose medications, avoid nephrotoxins Monitor electrolytes and replace per protocol Strict I/O's, daily weights ID: Subacute mitral valve endocarditis s/p MVR with Dr. Galvan. Original source likely cariou s teeth which were removed by Dr. Hull on 12/19. Evidence of septic emboli to spleen, brain, kidney and liver Abx per ID. 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 Source of Infection: endocarditis and bacteremia SIRS Criteria: HR > 90 and WBC > 12,000 or < 4000 Acute Organ Dysfunction: Not present Shock: Not Present Based on the above findings, the patient has evidence of: Sepsis (Infection + 2 SIRS) 12/24/2019 12:55 PM PDT Total SOFA Score: 6 HEME: Normocytic anemia - exacerbated by blood loss during surgery. Transfusions managed by CT S. ENDO: Type 2 diabetes mellitus. Endotool post op, transition to SSI once stabilizes. MUSC/SKIN: Reviewed skin cares with nursing. Mobilize when able Turns q2h to prevent pressure ulcers PT/OT when appropriate PROPHYLAXIS: Stress ulcer prophylaxis: Famotidine DVT prophylaxis: SCD's while in bed VAP: chlorhexidine oral care and HOB > 30 degrees Disposition: ICU care as above. Code Status: Full Code Primary Care Physician: No Physician on file *Please bill 70 minutes of critical care time spent evaluating the patient, reviewing the d isaac and formulating a plan exclusive of all other procedures. ARELY Peters 12/24/2019 Jef Cueva MD - 12/19/2019 1:01 PM PDTAssociated Order(s): PROVIDER TO PROVIDER CONSULT [facility] Service: Neurology Initial Consult Note Date of Admission: 12/16/2019 Reason for Consultation: stroke Requesting Physician: Monty Major MD, Hospitalist History Obtained From: patient and chart review CHIEF COMPLAINT: confusion HISTORY OF PRESENT ILLNESS The patient is a 69 y.o. male with no significant past medical history who was admitted fro [facility] due to mitral valve endocarditis. I was consulted for stroke. The patient was found to have mitral valve endocarditis with large vegetation, evidence of septic emboli to the spleen, liver and kidney, anemia. Echo showed possible ASD with left to right shunt. Patient was noted to be confused so brain MRI was obtained. MRI showed multipl e small infarcts in the bilateral hemisphere, the largest in the right parieto-occipital jessica ction. I reviewed images with Dr. Mai, radiology, no evidence of brain abscess. 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 The ernst ent denies any sudden onset of stroke symptoms. His confusion seems to be improving. He has no cognitive impairment at baseline. Mri Brain W Wo Contrast 1. An 8 x 8 x 11 mm ring enhancing lesion, image 68 series 11, in the right parieto-occipit al junction near the cortical surface. This may represent a septic embolus or simple the enh ancement of a subacute infarct. 2. 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 CERTIFIED HISTOLOGIC TECHNICIAN territory includ ing a 1.1 x 2.6 cm infarct of the right occipital lobe, minimal areas of subacute ischemia i n the brothers matter of the inferior right parietal lobe, a 4.5 mm infarct of the central right thalamus, a 3 mm infarct at the right side of the posterior body the corpus callosum at the medial border of the atria the right lateral ventricle. These may represent embolic infarc ts. 3. There are numerous punctate foci of microhemorrhage in the bihemispheric frontal lobe white matter as well as low signal material in the sulci of the anterior right frontal lobe , mid left frontal lobe, posterior right frontal lobe, bilateral parietal lobes indicating a reas of subarachnoid hemorrhage or chronic hemosiderosis. 4. Scalp lipoma of the left forehe ad measuring 38 x 31 x 7 mm. Final Report Signed by: Taz Mai Edward Sign Date/Time: 0 12/18/2019 8:18 PM Xr Chest Ap Portable Result Date: 12/17/2019 CHEST PORTABLE ONE VIEW CLINICAL INFORMATION: Pre operative examination. COMPARISON: XR TASHA ST AP PORTABLE (10/31/2019); FINDINGS: Stable mediastinum to technique without deviation midl ine structures. Some vasculopathy arch. Typical for age Lung markings are somewhat coarse t hroughout, somewhat increasingly so when compared to the prior examination but there is no f ocal infiltrate or consolidation. Some Kyra lines at the left costophrenic angle, for exa mple No pneumothorax No effusion Skeleton with degenerative change of the shoulders, not unu sual Mild increased prominence of reticular interstitial markings throughout both lungs, but wit h preservation of lung volumes from the prior exam. Mild interstitial edema is possible. Cou ld also represent viral or reactive process Final Report Signed by: Fernando Bennett, Oswaldo steen Date/Time: 12/17/2019 4:[address] Maxillofacial Wo Contrast 1. Dental caries involving multiple teeth as described above. 2. Severe dental caries is se en involving the lower right 1st and 2nd molars and the upper left 2nd premolar with erosion of the crowns down to the gumlines. There is lucency surrounding the roots of the lower ri ght 2nd molar suggesting periodontal disease. 3. Cervical degenerative disc and facet diseas e as noted above. 4. Lingual and buccal side anterior mandibular shahab noted. A maxillary to oli is seen in the midline of the hard palate. Final Report Signed by: Taz Mai Edward Sign Date/Time: 12/18/2019 5:57 PM PAST MEDICAL HISTORY Past Medical History: Diagnosis Date Diabetes mellitus (HCC) Infectious endocarditis Severe mitral regurgitation PAST SURGICAL HISTORY History reviewed. No pertinent surgical history. ALLERGIES Allergies Allergen Reactions Canola Oil [Vegetable Oil] GI Upset Pt states that he gets upset stomach when ingesting canola oil. Soybean Oil GI Upset Pt states he gets upset stomach when he ingests soybean oil. HOME MEDICATIONS Medications Prior to Admission Medication Sig Dispense Refill aspirin (ASPIRIN ADULT LOW STRENGTH) 81 MG EC tablet Take 1 tablet (81 mg total) by valorie th Daily 30 tablet 0 Scheduled Medications aspirin 81 mg Oral Daily atorvaSTATin 80 mg Oral Nightly cefTRIAXone 2 g Intravenous Q24H dilTIAZem 120 mg Oral Daily diphenhydrAMINE 25 mg Oral Lead Inspector famotidine 20 mg Intravenous Lead Inspector heparin 5,000 Units Subcutaneous Q12H melatonin 3 mg Oral Nightly probiotic formula 1 capsule Oral Daily with breakfast [START ON 12/20/2019] sodium chloride 0.9% Intravenous Lead Inspector Continuous Infusions PRN Medications acetaminophen, ondansetron, sodium chloride (PF) 0.9% injection FAMILY HISTORY Family History Problem Relation Age of Onset Asthma Father SOCIAL HISTORY Social History Tobacco Use Smoking Status Former Smoker Packs/day: 0.50 Years: 40.00 Pack years: 20.00 Start date: 12/15/1965 Quit date: 06/17/2017 Years since quittin.5 Smokeless Tobacco Former User Types: Chew Quit date: 11/14/2016 Social History Substance and Sexual Activity Alcohol Use Not Currently Social History Substance and Sexual Activity Drug Use Never Social History Substance and Sexual Activity Sexual Activity Not Currently REVIEW OF SYSTEMS In addition to HPI, a comprehensive 10 system ROS also revealed: All other systems are reviewed and negative PHYSICAL EXAM Vital Signs: BP 137/77 | Pulse 98 | Temp 36.3 C (97.3 F) (Oral) | Resp 20 | Ht 1.651 m (5' 5") | Wt 59.4 kg (130 lb 15.3 oz) | SpO2 94% | BMI 21.79 kg/m Temp (24hrs), Av.8 C (98.2 F), Min:36.3 C (97.3 F), Max:37.2 C (98.9 F) Systolic (24hrs), Av , Min:133 , Max:155 Diastolic (24hrs), Av, Min:74, Max:91 General Exam WDWN, NAD Heart is regular Neuro Exam MS Awake, alert, oriented x3 to year, month, date, floor, kadlec. Cooperative and appropriate during the encounter. Speech is clear, fluent and coherent. CN Fundus difficult to view through natural nondilated pupils. VFF to confrontation. EOMI. PERRLA. Facial sensation is intact. Face is symmetric. Hearing is intact. Tongue protrusion is midline. Motor Bulk and Tone: normal Muscle strength: full in all extremities Sensory Intact to light touch. Coordination FNF intact Gait Deferred DATA Results for orders placed or performed during the hospital encounter of 12/16/19 Culture, Blood Specimen: Peripheral Blood Result Value Ref Range Special Requests RIGHT HAND Special Requests Testing performed at [facility] [facility] [address] RESULT NO GROWTH AT THIS TIME RESULT Testing performed at [facility], [facility] [place] [address] Culture, Blood Specimen: Peripheral Blood Result Value Ref Range Special Requests LEFT HAND Special Requests Testing performed at [facility];[address] [facility];[place] [address] RESULT NO GROWTH AT THIS TIME RESULT Testing performed at [facility], [facility] [place] [address] Coronavirus (COVID-19) NAAT Result Value Ref Range SARS-CoV-2, NAAT (COVID-19) NEGATIVE NEG Basic Metabolic Panel Result Value Ref Range Na 141 135 - 145 mmol/L K 3.6 3.5 - 4.9 mmol/L Cl 109 99 - 109 mmol/L CO2 21 (L) 23 - 32 mmol/L Anion Gap 15 5 - 20 mmol/L Glucose 104 (H) 65 - 99 mg/dL BUN 18 8 - 25 mg/dL Creatinine 0.90 0.70 - 1.30 mg/dL BUN/Creatinine Ratio 20 Calcium 8.2 (L) 8.5 - 10.5 mg/dL Estimated GFR >60 >60 mL/min/1.73m2 CBC with Differential Result Value Ref Range WBC 9.24 3.80 - 11.00 K/uL Red Blood Cells 2.71 (L) 4.20 - 5.70 M/uL Hemoglobin 7.0 (L) 13.2 - 17.0 g/dL Hematocrit 23.1 (L) 39.0 - 50.0 % MCV 85.2 80.0 - 100.0 fl MCH 25.8 (L) 27.0 - 34.0 pg MCHC 30.3 (L) 32.0 - 35.5 g/dL RDW-SD 55.2 (H) 37 - 53 fl Platelet Count 316 150 - 400 K/uL MPV 9.2 fl Diff Type AUTOMATED % nRBC 0.0 0 /100WBC % Neutrophils 71.40 % IMMATURE GRANULOCYTE 1.10 % % Lymphocytes 18.60 % Monocyte % 8.40 % Eosinophils % 0.30 % Basophils % 0.20 % Neutrophils, Absolute 6.59 1.90 - 7.40 K/uL IMMATURE GRANS AB 0.10 (H) 0.00 - 0.07 K/uL Absolute Lymphocytes 1.72 1.00 - 3.90 K/uL Absolute Monocytes 0.78 0.00 - 0.80 K/uL Eosinophils, Absolute 0.03 0.00 - 0.50 K/uL Basophils, Absolute 0.02 0.00 - 0.10 K/uL Vancomycin Level Result Value Ref Range Vancomycin Random, Serum 11.1 ug/mL CBC no Differential Result Value Ref Range WBC 9.59 3.80 - 11.00 K/uL Red Blood Cells 2.53 (L) 4.20 - 5.70 M/uL Hemoglobin 6.6 (LL) 13.2 - 17.0 g/dL Hematocrit 21.6 (L) 39.0 - 50.0 % MCV 85.4 80.0 - 100.0 fl MCH 26.1 (L) 27.0 - 34.0 pg MCHC 30.6 (L) 32.0 - 35.5 g/dL RDW-SD 55.2 (H) 37 - 53 fl Platelet Count 319 150 - 400 K/uL MPV 10.0 fl Basic Metabolic Panel Result Value Ref Range Na 142 135 - 145 mmol/L K 3.8 3.5 - 4.9 mmol/L Cl 111 (H) 99 - 109 mmol/L CO2 23 23 - 32 mmol/L Anion Gap 12 5 - 20 mmol/L Glucose 99 65 - 99 mg/dL BUN 13 8 - 25 mg/dL Creatinine 0.90 0.70 - 1.30 mg/dL BUN/Creatinine Ratio 14 Calcium 7.9 (L) 8.5 - 10.5 mg/dL Estimated GFR >60 >60 mL/min/1.73m2 Protime INR Result Value Ref Range INR 1.0 Hemoglobin and Hematocrit Result Value Ref Range Hemoglobin 10.3 (L) 13.2 - 17.0 g/dL Hematocrit 32.2 (L) 39.0 - 50.0 % Lactate Dehydrogenase Result Value Ref Range LDH TOTAL 244 120 - 246 U/L Haptoglobin Result Value Ref Range Haptoglobin 281 34 - 355 mg/dL Retic Count Result Value Ref Range % Reticulocyte Count 4.7 (H) 0.4 - 2.7 % Iron and Iron Binding Capacity Result Value Ref Range Iron 58 45 - 190 ug/dL Iron Binding Capacity 224 (L) 250 - 450 ug/dL Iron Saturation 26 20 - 50 % Ferritin Result Value Ref Range Ferritin 705 (H) 30 - 400 ng/mL TSH, Reflex Free T4 Result Value Ref Range TSH 1.380 0.450 - 5.100 uIU/mL Fecal Hemoglobin Result Value Ref Range FECAL OCCULT BLD NEGATIVE NEG Basic Metabolic Panel Result Value Ref Range Na 138 135 - 145 mmol/L K 3.9 3.5 - 4.9 mmol/L Cl 107 99 - 109 mmol/L CO2 20 (L) 23 - 32 mmol/L Anion Gap 15 5 - 20 mmol/L Glucose 113 (H) 65 - 99 mg/dL BUN 13 8 - 25 mg/dL Creatinine 1.08 0.70 - 1.30 mg/dL BUN/Creatinine Ratio 12 Calcium 8.9 8.5 - 10.5 mg/dL Estimated GFR >60 >60 mL/min/1.73m2 CBC with Differential Result Value Ref Range WBC 16.89 (H) 3.80 - 11.00 K/uL Red Blood Cells 3.89 (L) 4.20 - 5.70 M/uL Hemoglobin 10.5 (L) 13.2 - 17.0 g/dL Hematocrit 33.6 (L) 39.0 - 50.0 % MCV 86.4 80.0 - 100.0 fl MCH 27.0 27.0 - 34.0 pg MCHC 31.3 (L) 32.0 - 35.5 g/dL RDW-SD 50.4 37 - 53 fl Platelet Count 339 150 - 400 K/uL MPV 9.3 fl Diff Type AUTOMATED % nRBC 0.0 0 /100WBC % Neutrophils 85.20 % IMMATURE GRANULOCYTE 0.80 % % Lymphocytes 8.50 % Monocyte % 4.90 % Eosinophils % 0.40 % Basophils % 0.20 % Neutrophils, Absolute 14.39 (H) 1.90 - 7.40 K/uL IMMATURE GRANS AB 0.14 (H) 0.00 - 0.07 K/uL Absolute Lymphocytes 1.44 1.00 - 3.90 K/uL Absolute Monocytes 0.83 (H) 0.00 - 0.80 K/uL Eosinophils, Absolute 0.06 0.00 - 0.50 K/uL Basophils, Absolute 0.03 0.00 - 0.10 K/uL Gentamicin, Trough Result Value Ref Range GENTAMICIN TROUGH 0.6 <2.0 ug/mL T4, Free Result Value Ref Range FT4 1.5 0.7 - 1.5 ng/dL Type and Screen Result Value Ref Range ABO Rh O POSITIVE Antibody Screen NEGATIVE BB BAND [id number] UNIT # [id number] Product Code LEUKODEPLETED PC Unit Division 00 Unit Status ISSUED,FINAL Transfusion Status OK TO TRANSFUSE CROSSMATCH RESULT COMPATIBLE UNIT # [id number] Product Code LEUKODEPLETED PC Unit Division 00 Unit Status ISSUED,FINAL Transfusion Status OK TO TRANSFUSE CROSSMATCH RESULT COMPATIBLE Testing performed at [address] [address] UNIT # [id number] Product Code LEUKODEPLETED PC Unit Division 00 Unit Status ALLOCATED Transfusion Status OK TO TRANSFUSE CROSSMATCH RESULT COMPATIBLE Red Blood Cells (PRBC) - Crossmatch Result Value Ref Range Product Code RED CELL GROUP Units ordered 1 BLOOD BANK COMMENT ORDER RECEIVED IN BLOOD BANK. BLOOD BANK COMMENT Testing performed at [facility] [facility] [address] Red Blood Cells (PRBC) - Crossmatch Result Value Ref Range Product Code RED CELL GROUP Units ordered 2 BLOOD BANK COMMENT ORDER RECEIVED IN BLOOD BANK. BLOOD BANK COMMENT Testing performed at [facility] [facility] [address] PROBLEM LIST Principal Problem: Acute bacterial endocarditis Active Problems: Diet-controlled diabetes mellitus Severe protein-calorie malnutrition Infectious endocarditis Severe mitral regurgitation Endocarditis of mitral valve ASSESSMENT & PLAN 69 year old male with MV endocarditis and large vegetation. Brain MRI showed multiple small infarcts bilateral hemisphere. Most likely septic emboli. There was question on small area of subarachnoid hemorrhage vs chronic hemosiderosis. No evidence of brain abscess on MRI. Th e patient has no typical stroke symptoms, mild confusion which is improving. - recommend CTA head/neck to evaluate cerebral vasculature and if any acute intracranial he morrhage (given MRI findings) - continue antibiotic treatment, per ID - management of endocarditis per cardiology - Discussed with Dr. Major. Code Status: Full Code Primary Care Physician: No Physician on file Thank you for allowing me to participate in the care of this patient. Please call if there are any questions. Jef Ryan MD 12/19/2019 1:01 PM PDT opJob christina DMD - 12/17 6:43 PM PDTAssociated Order(s): PROVIDER TO PROVIDER CONSULTFormatting of this note m ight be different from the original. [facility] Department of concrete gun operator Consult Note Date of Admission: 12/16/2019 Reason for Consultation: Endocarditis; carious/fractured teeth Requesting Physician: Dr. Major, Hospitalist History Obtained From: Dr. Major CHIEF COMPLAINT: Carious/fractured teeth; endocarditis HISTORY OF PRESENT ILLNESS The patient is a 69 y.o. male with no significant PMH admitted to [facility] on 12/15/19 with weakness for 4 months and intermitted fever for up to 1 month. Temperature was 104 on day of admission. Pt's workup remarkable for WBC of 17, CRP of 90, ECHO showed mitr al valve endocarditis with mitral valve regurgitation. Pt was started on zosyn and cefepime and 2/2 BC from admission grew out gram positive cocci in chains. Pt was transferred to [facility] on 12/16/19 for further treatment and evaluation. OMFS was consulted due to the presence of multiple carious, infected teeth and a concern that there could be an odontogenic compon ent to his endocarditis. The patient was not oriented to place or time upon evaluation. REVIEW OF SYSTEMS Negative except as noted in HPI. Past Medical History: Diagnosis Date Diabetes mellitus (HCC) Infectious endocarditis Severe mitral regurgitation History reviewed. No pertinent surgical history. Allergies Allergen Reactions Canola Oil [Vegetable Oil] GI Upset Pt states that he gets upset stomach when ingesting canola oil. Soybean Oil GI Upset Pt states he gets upset stomach when he ingests soybean oil. Medications Prior to Admission Medication Sig Dispense Refill aspirin (ASPIRIN ADULT LOW STRENGTH) 81 MG EC tablet Take 1 tablet (81 mg total) by valorie th Daily 30 tablet 0 Scheduled Medications aspirin 81 mg Oral Daily atorvaSTATin 80 mg Oral Nightly dilTIAZem 120 mg Oral Daily gentamicin 60 mg Intravenous Q12H gentamicin per pharmacy Other Pharmacy Consult heparin 5,000 Units Subcutaneous Q12H melatonin 3 mg Oral Nightly probiotic formula 1 capsule Oral Daily with breakfast vancomycin 1,500 mg Intravenous Q24H vancomycin per pharmacy Other Pharmacy Consult PRN Medications acetaminophen, ondansetron Family History Problem Relation Age of Onset Asthma Father PHYSICAL EXAM Vital Signs: BP 145/79 | Pulse 86 | Temp 36.4 C (97.5 F) (Oral) | Resp 20 | Ht 1.651 m (5' 5") | Wt 59 kg (130 lb 1.1 oz) | SpO2 97% | BMI 21.64 kg/m There are multiple carious teeth There is no intraoral drainage present Generalized soft tissue recession is present Large mandibular buccal exostoses are present Bilateral mandibular lingual shahab are present A midline palatal torus is present Poor oral hygiene Many calculus deposits are present DATA CBC: Lab Results Component Value Date WBC 11.83 (H) 12/20/2019 RBC 3.59 (L) 12/20/2019 HGB 9.7 (L) 12/20/2019 HCT 30.5 (L) 12/20/2019 MCV 85.0 12/20/2019 PLT 295 12/20/2019 BMP: Lab Results Component Value Date NA 136 12/20/2019 K 3.6 12/20/2019 CL 103 12/20/2019 CO2 24 12/20/2019 BUN 14 12/20/2019 CREA 0.95 12/20/2019 EGFR >60 12/20/2019 GLU 116 (H) 12/20/2019 Imaging: CT imaging shows the presence of multiple carious teeth. Bilateral mandibular linda gual shahab and buccal exostoses are present. A midline palatal torus is present. ASSESSMENT Sepsis and endocarditis in the presence of multiple carious teeth. Removal of the carious teeth and possibly all remaining teeth, buccal exostoses and mandibular lingual shahab will be necessary with GA in the OR. PLAN -I discussed the indications for treatment with the patient's . She verbalized underst anding and would like to have all teeth removed if it is in the patient's best interest. I told her that I will be able to better evaluate the dentition once the patient is asleep and that I will remove all teeth that are concerning for infection and if there are some teeth that are not carious but fabrication of a partial denture would not be ideal with those teet h and that a complete denture would be better, then I will remove all remaining teeth. She verbalized understanding and agreement. Verbal consent was given over the phone. -To the OR for removal of teeth as indicated and the mandibular buccal exostoses and lingua l shahab Primary Care Physician: No Physician on file Thank you for the consultation request Job Menjivar DMD 12/18/2019 Alexi Espinoza ph, MD - 12/17/2019 2:40 PM PDTJermaine 2019 Reason for consultation: Mitral valve endocarditis History presenting illness: I have been asked to see this 69-year-old gentleman regarding his mitral valve endocarditis . Apparently he has been ill for approximately 4 months during which time he has lost 40 po unds worth of weight and has had fever and chills and sweats throughout that time. He denie s any history that would be consistent with embolic events. The patient was hospitalized on October 30 at a different hospital at which time he had signif icant elevation of his CRP and a mild elevation of his troponin. 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 The patient's ejection fraction was normal. The patien t was offered further evaluation but decided to leave hospital. The patient continued to feel unwell and went for further evaluation to a different hospita where apparently it was noted he had altered mental status and a fever of 104 F. He had a slightly elevated troponin at the time. [facility] showed evidence of a vegetation on the mitral valve measuring 24 mm x 16 mm with the same jet of eccentric severe mitral regurgitation. The patient denied any symptoms consistent wi th congestive heart failure and still no evidence of any embolic events. The patient went on to have blood cultures done that showed gram-positive cocci in chains. The patient also apparently had a CT scan done of the abdomen showing possible emboli to hi s spleen and liver although I have not seen these x-rays myself nor read the actual report. The patient has been transferred to [facility] for further treatment and evaluation. He has been started on the appropriate antibiotics. He has been seen by the infectious dise ase service. They make the comment that he has extremely poor dentition. Past medical history: Diabetes Family history: Negative for endocarditis Social history: The patient has smoked for over 50 years of approximately half pack cigaret tejinder a day and stopped at a couple of years ago. He still chews tobacco. He is . He does not drink very much. He is quite active Allergies: Canola oil and soybean oil Home medications: Aspirin Previous surgical history: None Complete review of systems otherwise completely negative Laboratory investigations show a normal renal profile but there are no other lab tests back for this admission yet. Of concern is that cardiology notes his hemoglobin is 11.7 back in October 30 but was only 8.3 at the outside hospital in December 14. On examination the patient's blood pressure is 125/70 with a pulse of 90 and regular. He i s afebrile. He apparently is 5 feet 5 inches tall and weighs 130 pounds with a BMI of 21.64 . His oxygen saturation on room air is 98%. He appears quite comfortable and not short of breath. His skin is clear. Examination ears eyes nose and throat are negative. His mental status grossly intact and he appears alert and oriented. He has good air entry bilaterally. His h eart sounds are normal but with a significant murmur heard at the apex. His abdomen is soft and nontender with no mass organomegaly. He has good strong femoral and distal pulses with no swelling of ankles or varicose veins Assessment and plan: This is a 69-year-old man with subacute endocarditis possibly present for months at this po int. He has been noted on echocardiogram back in October to have eccentric severe mitral insuf ficiency which is not changed from his December 15 echocardiogram. He has a large vegetation o n his posterior leaflet. He is only just started on effective treatment for his endocarditi s with antibiotics. He shows no evidence of heart failure clinically. He has very bad dent ition. He has been a long-term smoker and has diabetes and presented with an elevated tropo aj and ST segment changes in October of this year. I have spoken with the infectious disease specialist and agree that the patient will likely require surgery for treatment of his infective endocarditis at one point. I agree with the specialist that a ARNOLDO would be helpful in identifying the amount of regurgitation present a nd its position. Given that the patient was previously identified to have likely ischemic c oronary disease and he is a long-term smoker and diabetic I would agree with the cardiology opinion that he have a cardiac catheterization performed. Infectious disease specialist misty ld also like the patient seen by dentist and possibly have his teeth dealt with before surgi ani intervention. I have discussed all of this with the patient and he appears to understand although I agree with the cardiology evaluation that perhaps he does not totally grasp the concept at this p oint. I will follow him along with infectious disease and cardiology and evaluate with them the a ppropriate timing for surgical intervention Thank you very much Your sincerely Rashaad Elder MD, CS, FACS Martha Kirby PA - 12/17/2019 1:36 PM PDTAssociated Order(s): PROVIDER TO PROVIDER CONSULT [facility] Service: Cardiology Initial Consult Note Name of Journeyman Power Plant Operator: Martha Wolfe. LEA Dougherty/Dr. Daryl Tejeda Primary Speech Communication Instructor: None prior Reason for Consultation: [place] mitral valve endocarditis with severe MR, SVT Requesting Physician: Dr. Hart, Hospitalist History Obtained From: Patient (poor historian), Chart Review CHIEF COMPLAINT: Confusion, fever HISTORY OF PRESENT ILLNESS: Reilly Hamm is a 69 y.o. male who was transferred from [facility] fo r tribal mitral valve endocarditis with severe mitral regurgitation and evidence for septic emboli. No significant medical history prior to recent admissions. He reports approximately 4 months of weakness/fatigue, intermittent fevers, and weight loss of 35-40 pounds. Denies chest pain/pressure. He does endorse dyspnea on exertion with occasional cough. No orthopn ea or lower extremity edema. Occasional dizziness but no lightheadedness/syncope. In summary, he initially presented to [facility] 10/31/2019 with those complaints. Laboratory evaluation significant for elevated CRP of 80, elevated procalcitonin of 0.68, d ecreased TSH 0.46, and hemoglobin A1c 6.2%. Also during the course of evaluation he was fou nd to have mild troponin elevation, peak 0.08. ECGs reviewed, initial ECG was concerning fo r possible inferior infarct, ST-T abnormalities which resolved on follow-up ECGs. Echocardi ogram was obtained with preserved LV systolic function, diastolic dysfunction, severe eccent tod mitral regurgitation, mild tricuspid regurgitation. Further evaluation with stress test was recommended however patient declined and was discharged. The patient continued to wors en, he then presented to [facility] 12/15/2019 with altered mental status and fe contreras to 104F. He was found to have multiple laboratory abnormalities including elevated whit e blood cell count with bandemia, anemia with hemoglobin 8.3 (was 11.7 on 10/31/19), lactic a cidosis, blood cultures x2 positive with gram-positive cocci in chains. Chest x-ray was nor mal with the exception of mild cardiomegaly. CT scan of the abdomen pelvis demonstrated low -density lesion in the spleen (with 2 satellite lesions disease, low-density lesion in the r ight lobe of the liver, and lesion in the left kidney. He was also tachycardic, initial ECG (reviewed today) demonstrating a regular narrow complex tachycardia rate 167 bpm with possi ble inferior infarct and nonspecific ST-T abnormalities. Patient endorses having palpitation s with the dysrhythmia. He was reportedly given diltiazem with decrease in his heart rate an d follow-up ECG (reviewed today) demonstrated normal sinus rhythm with a rate of 97, short P R and PACs. Echocardiogram was obtained, per report which is reviewed today demonstrated pr eserved LV systolic function with a large mobile echodense mass attached to the posterior le aflet of the mitral valve with severe eccentric anterior mitral regurgitation. There was al so possible evidence for left to right atrial shunt as well as mild tricuspid regurgitation with moderate pulmonary hypertension. He was subsequently transferred to [facility] yesterday. Card iology is consulted for further evaluation and management. Follow up echocardiogram is tara lombardo. ID is following, CT surgery has also been consulted. REVIEW OF SYSTEMS CONSTITUTIONAL: + 35-40 pound weight loss over 3-4 months, + intermittent fevers and fatig ue/generalized weakness NEUROLOGIC: No history of CVA, TIA, migraines, seizures, syncope. + dizziness, no lighthe adedness/syncope. No numbness, tingling, paresthesias. EYES: No amaurosis, diplopia, recent visual changes, cataracts or glaucoma ENT: No hearing loss, tinnitus, epistaxis, dysphagia ENDOCRINE: Recent hgbA1C 6.2% consistent with diabetes mellitus, not on medical therapy. N o history of thyroid disorders or other endocrine problems but TSH low 10/31/19 labs. No exc essive hunger, thirst. + Decreased appetite. PULMONARY/SLEEP: + dyspnea on exertion, no orthopnea or paroxysmal nocturnal dyspnea. No history of asthma, emphysema. No history of pneumonia. Denies significant snoring, daytime s omnolence. Sleep is refreshing. CARDIOVASCULAR: Denies chest pain, pressure or discomfort. No history of CAD. No history of heart failure. Was found to have SVT on 12/15/19, symptomatic with palpitations, converted spontaneously to sinus rhythm. 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 No history of hypertension, h yperlipidemia. No edema, no claudication symptoms. No h/o an AAA. GASTROINTESTINAL: No recent abdominal pain, nausea, vomiting or diarrhea. Denies PUD, sunita na, hematochezia, hepatitis. RENAL/: No history of kidney disease. No dysuria, hematuria, urinary urgency, hesitancy . HEMATOLOGY/ONCOLOGY: No h/o bleeding disorders, DVT, PE. Denies easy bruisability or ble eding. No history of anemia, but hemoglobin is now significantly decreased compared to 10/30 labs. No transfusions. No history of cancer. MUSCULOSKELETAL: No myalgias, arthralgias. No history of rheumatologic or autoimmune dise ases. CUTANEOUS: No rashes, pruritus, lesions. PSYCHIATRIC: No history of depression, anxiety or other psychiatric problems. PAST MEDICAL & SURGICAL HISTORY Past Medical History: Diagnosis Date Diabetes mellitus (HCC) History reviewed. No pertinent surgical history. MEDICATIONS Home Medications Medications Prior to Admission Medication Sig Dispense Refill aspirin (ASPIRIN ADULT LOW STRENGTH) 81 MG EC tablet Take 1 tablet (81 mg total) by valorie th Daily 30 tablet 0 Inhospital Medications aspirin 81 mg Oral Daily dilTIAZem 120 mg Oral Daily gentamicin 60 mg Intravenous Q12H gentamicin per pharmacy Other Pharmacy Consult heparin 5,000 Units Subcutaneous Q12H [START ON 12/18/2019] vancomycin 1 g Intravenous Q24H vancomycin per pharmacy Other Pharmacy Consult ALLERGIES Allergies Allergen Reactions Canola Oil [Vegetable Oil] GI Upset Pt states that he gets upset stomach when ingesting canola oil. Soybean Oil GI Upset Pt states he gets upset stomach when he ingests soybean oil. FAMILY HISTORY Family History Problem Relation Age of Onset Asthma Father SOCIAL HISTORY Social History Socioeconomic History Marital status: Spouse name: Not on file Number of children: Not on file Years of education: Not on file Highest education level: Not on file Occupational History Not on file Social Needs Financial resource strain: Not on file Food insecurity Worry: Not on file Inability: Not on file Transportation needs Medical: Not on file Non-medical: Not on file Tobacco Use Smoking status: Former Smoker Packs/day: 0.50 Years: 40.00 Pack years: 20.00 Start date: 12/15/1965 Quit date: 06/17/2017 Years since quittin.5 Smokeless tobacco: Former User Types: Chew Quit date: 11/14/2016 Substance and Sexual Activity Alcohol use: Not Currently Drug use: Never Sexual activity: Not Currently Lifestyle Physical activity Days per week: Not on file Minutes per session: Not on file Stress: Not on file Relationships Social connections Talks on phone: Not on file Gets together: Not on file Attends mosque service: Not on file Active member of club or organization: Not on file Attends meetings of clubs or organizations: Not on file Relationship status: Not on file Intimate partner violence Fear of current or ex partner: Not on file Emotionally abused: Not on file Physically abused: Not on file Forced sexual activity: Not on file Other Topics Concern Not on file Social History Narrative Not on file PHYSICAL EXAM Vital Signs: BP 127/73 | Pulse 92 | Temp 36.4 C (97.6 F) (Oral) | Resp 22 | Ht 1.651 m (5' 5") | Wt 59 kg (130 lb 1.1 oz) | SpO2 97% | BMI 21.64 kg/m Intake/Output Summary (Last 24 hours) at 12/17/2019 1336 Last data filed at 12/17/2019 1200 Gross per 24 hour Intake 1371 ml Output 1425 ml Net -54 ml Physical Exam Constitutional: He is oriented to person, place, and time. He appears well-developed and we ll-nourished. No distress. HENT: Head: Normocephalic and atraumatic. Mouth/Throat: Oropharynx is clear and moist. Eyes: Conjunctivae are normal. No scleral icterus. Neck: Neck supple. No JVD present. Cardiovascular: Normal rate and regular rhythm. Exam reveals no gallop and no friction rub. Murmur heard. Pulses: Carotid pulses are 2+ on the right side and 2+ on the left side. Radial pulses are 2+ on the right side and 2+ on the left side. Femoral pulses are 2+ on the right side and 2+ on the left side. Dorsalis pedis pulses are 2+ on the right side and 2+ on the left side. Posterior tibial pulses are 2+ on the right side and 2+ on the left side. + systolic murmur over apex Pulmonary/Chest: Effort normal and breath sounds normal. No respiratory distress. He has no wheezes. He has no rales. Abdominal: Soft. Bowel sounds are normal. He exhibits no distension. There is no abdominal tenderness. Musculoskeletal: General: No deformity or edema. Neurological: He is alert and oriented to person, place, and time. Skin: Skin is warm and dry. He is not diaphoretic. Psychiatric: He has a normal mood and affect. His behavior is normal. Nursing note and vitals reviewed. DATA Recent Labs Lab 12/17/19 0443 NA 141 K 3.6 CL 109 CO2 21* BUN 18 CREA 0.90 GLU 104* CALCIUM 8.2* No results for input(s): POCTROP, TROPONINHS, TROPONIN, CK, CKMB in the last 168 hours. No results for input(s): WBC, HGB, HCT, PLT, INR in the last 168 hours. No results for input(s): ALT, PT, PTT in the last 72 hours. Invalid input(s): AST, MG, INR, DIGLEVEL:3)@ ECGs reviewed: None since transfer to [facility] ECGs from admission at [place] and [facility] reviewed and as documented in HPI Echocardiogram: TTE 12/16/19 ([facility]): 1. Normal LV cavity, normal LV systolic function EF 65%. 2. Normal RV size and function. 3. Suspicion of left to right atrial shunt by color Doppler in subcostal view. 4. Large echodense mass attached to the posterior leaflet of the mitral valve, highly mobil e, measuring 2.5 x 1.4 x 1.6 cm consistent with vegetation, with severe eccentric anterior m itral regurgitation. 5. Mild tricuspid regurgitation with moderate pulmonary hypertension. 6. No evidence of pericardial effusion. TTE 10/31/19 ([facility]): Summary Left ventricle is normal in size and function. Ejection fraction is estimated at 55-60%. Impaired relaxation compatible with diastolic dysfunction (reversed E/A ratio). Mitral valve is thickened with mild annular calcification, borderline prolapse, and an eccentric jet of severe insufficiency directed towards inter-atrial septum. Structurally normal tricuspid valve with mild insufficiency and peak velocity consistent with normal pulmonary pressures. Left atrium is mildly enlarged. No previous studies available for comparison. Stress test: None prior Cardiac catheterization: None prior ASSESSMENT & PLAN 1. 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 ID consulted, on IV antibiotics. Blood cultures pending here. Patient will need CT surgery magdalena luation for surgical management. Given #5, recommend ischemic evaluation with cardiac cathet erization prior. See below. 2. Leukocytosis with bandemia, acute - Related to #1. 3. Anemia, acute - Hemoglobin 11.7 on 10/31/19, 8.3 on 12/15/19 labs at OSH. Please evaluate t his, patient may have coronary artery disease which would warrant transfusion if hemoglobin drops < 8. 4. Paroxysmal supraventricular tachycardia - Symptomatic with palpitations. Monitor telemet ry for recurrence, may need EP evaluation if it recurs. Continue diltiazem 120 mg daily. 5. Possible left to right atrial shunt on OSH echocardiogram - Will plan for ARNOLDO at the haylee e of cardiac catheterization. 6. Recent mild troponin elevation at OSH, ECG abnormalities - Patient is stable, without an pablito. Recommend cardiac catheterization for evaluation of coronary anatomy, plan for Sunday. If he is found to have significant coronary lesions he may require CABG at the time of mitr al valve replacement. Continue aspirin 81 mg pending evaluation. Will initiate statin therap y, even if he does not have CAD and indication for secondary prevention his 10 year ASCVD ri sk is calculated at > 20% (high) and high dose statin therapy is indicated. 7. Tricuspid regurgitation with pulmonary hypertension by 12/16/19 echocardiogram at OSH - Mo st likely related to severe MR. 8. Type II diabetes mellitus - HgbA1C 6.2% on 10/31/19 admission and type II diabetes mell us was diagnosed. ?Typically the cutoff for diagnosis is 6.5% so technically patient may be considered to have prediabetes. As we are planning on upcoming cardiac catheterization, plea se do not start any metformin. Patient should be educated about lifestyle changes, consider consult for diabetes education. 9. Poor insight/understanding - The patient does not seem to fully understand his medical c onditions, he does not seem to grasp the concept that our recommendations are that he needs further cardiovascular evaluation and surgery, and he does not seem to understand that his p rognosis is very poor without surgical intervention for his endocarditis. The patient was seen and all labs, imaging and ECGs were reviewed. Case was discussed and r ecommendations were developed in conjunction with Dr. Daryl Tejeda. Thank you for allowing me to participate in the care of this patient. Code Status: Full Code Primary Care Physician: No Physician on file This encounter was dictated with voice recognition software and may contain inadvertent rec ognition errors. Martha Wolfe. LEA Dougherty 12/17/2019 Associated attestation - Jeet Tejeda MD - 12/17/2019 5:29 PM PDTI have personally int erviewed and examined Reilly Hamm on 12/17/19 at 17:22. I have personally reviewed the bekah ilable pertinent laboratory and imaging results and agree with what is stated in this note. He was seen earlier by Rashaad Elder MD. MVR is clearly indicated. We discussed doing a ARNOLDO and cardiac cath prior to surgery. At present, he "will listen, b ut I won't agree to anything". He is unable to give any specific reason as to why he would not agree to these procedures. I will see him tomorrow for further discussion, tentatively will do ARNOLDO and cardiac cath Fr madelaine MORRISON. MD Real Alexander Jose Fernando, MD - 12/17/2019 8:56 AM PDTAssociated Order(s): PROVIDER TO PROVIDER CONSULT [facility] Service: Infectious Diseases Initial Consult Note Date of Admission: 12/16/2019 Requesting Physician: Reilly Neil Ma, MD Reason for Consult Endocarditis CHIEF COMPLAINT Weight loss, fatigue, fevers, chills HISTORY OF PRESENT ILLNESS The patient is a 69 y.o.-year-old male with significant PMH of former smoking, diabetic, se en in consultation for endocarditis mitral valve. The patient reports an illness of approximately 4 months. Associated symptoms include feve r, chills, sweats, weight loss of approximately 40 pounds. The patient was hospitalized in October in an outside facility where he had significant elevation of CRP, mild elevation of tro ponin. He had some initial cardiac evaluation, also echocardiogram which was reportedly neg ative for vegetations. The patient was supposed to stay in the hospital for additional card iac work-up but he left AMA. Since then, the patient has been continued to have symptoms and therefore he was referred t o different doctor for repeat echocardiogram which also reportedly showed mitral valve endoc arditis. Report not available for review. The patient was also evaluated with blood cultures that showed gram-positive cocci in chain s. Report is not available for review at the moment. The patient has extremely poor dentition. Infectious Disease (ID) consult requested for further evaluation and management. PAST MEDICAL HISTORY Past Medical History: Diagnosis Date Diabetes mellitus (HCC) History reviewed. No pertinent surgical history. Social History Socioeconomic History Marital status: Spouse name: Not on file Number of children: Not on file Years of education: Not on file Highest education level: Not on file Occupational History Not on file Social Needs Financial resource strain: Not on file Food insecurity Worry: Not on file Inability: Not on file Transportation needs Medical: Not on file Non-medical: Not on file Tobacco Use Smoking status: Former Smoker Packs/day: 0.50 Years: 40.00 Pack years: 20.00 Start date: 12/15/1965 Quit date: 06/17/2017 Years since quittin.5 Smokeless tobacco: Former User Types: Chew Quit date: 11/14/2016 Substance and Sexual Activity Alcohol use: Not Currently Drug use: Never Sexual activity: Not Currently Lifestyle Physical activity Days per week: Not on file Minutes per session: Not on file Stress: Not on file Relationships Social connections Talks on phone: Not on file Gets together: Not on file Attends mosque service: Not on file Active member of club or organization: Not on file Attends meetings of clubs or organizations: Not on file Relationship status: Not on file Intimate partner violence Fear of current or ex partner: Not on file Emotionally abused: Not on file Physically abused: Not on file Forced sexual activity: Not on file Other Topics Concern Not on file Social History Narrative Not on file IMMUNIZATIONS: stated as current, but no records available Family History Problem Relation Age of Onset Asthma Father Current Facility-Administered Medications Medication Dose Route Frequency Provider Last Rate Last Dose acetaminophen (TYLENOL) tablet 650 mg 650 mg Oral Q4H PRN Reilly Neil Ma, MD aspirin EC tablet 81 mg 81 mg Oral Daily Reilly Neil Ma, MD 81 mg at 12/17/19 0732 dilTIAZem (CARDIZEM CD) 24 hr capsule 120 mg 120 mg Oral Daily Reilly Neil Ma, MD 120 mg at 12/17/19 0732 gentamicin 60 mg in sodium chloride 0.9% 50 mL IVPB 60 mg Intravenous Q12H Tayler rosas PharmD gentamicin per pharmacy Other Pharmacy Consult Reilly Neil Ma, MD heparin 5,000 units/mL injection 5,000 Units 5,000 Units Subcutaneous Q12H Reilly meade MD 5,000 Units at 12/17/19 0733 melatonin tablet 3 mg 3 mg Oral Nightly PRN Reilly Neil Ma, MD ondansetron (ZOFRAN ODT) disintegrating tablet 4 mg 4 mg Oral Q6H PRN Reilly Neil Ma, MD [START ON 12/18/2019] vancomycin in saline IVPB 1 g 1 g Intravenous Q24H Tayler Posey PharmD vancomycin in saline IVPB 1,000 mg 1,000 mg Intravenous Once Tayler Posey PharmD vancomycin per pharmacy Other Pharmacy Consult Reilly Neil Ma, MD ALLERGIES Allergies Allergen Reactions Canola Oil [Vegetable Oil] GI Upset Pt states that he gets upset stomach when ingesting canola oil. Soybean Oil GI Upset Pt states he gets upset stomach when he ingests soybean oil. REVIEW OF SYSTEMS 12+ systems reviewed. Negative except as per HPI. PHYSICAL EXAM Vital Signs: BP 133/71 | Pulse 93 | Temp 36.4 C (97.6 F) (Oral) | Resp 24 | Ht 1.651 m (5' 5") | Wt 59 kg (130 lb 1.1 oz) | SpO2 98% | BMI 21.64 kg/m General Appearance: Alert, cooperative, no distress. Head: Normocephalic, without obvious abnormality, atraumatic. Lips, mucosa, and tongue normal; dentition very poor; no thrush present. Eyes: PERRL, conjunctiva/corneas clear, EOM's intact. Throat: Oropharynx without exudates. Neck: Supple, symmetrical, trachea midline, no adenopathy; thyroid: no enlargement/tenderness/nodules; no carotid bruit or JVD Back: Symmetric, no curvature, ROM normal, no CVA tenderness Lungs: Clear to auscultation bilaterally, respirations unlabored Chest Wall: No tenderness or deformity Heart: Regular rate. Systolic murmur at the apex. Abdomen: Soft, non-tender, bowel sounds active all four quadrants, no masses, no organomegaly Extremities: Extremities normal, atraumatic, no cyanosis or edema Pulses: 2+ and symmetric all extremities Skin: Skin color, texture, turgor normal, no rashes or lesions Lymph nodes: Cervical, supraclavicular, and axillary nodes normal Neurologic: Alert, oriented, no focal deficits. Venous access: Venous access: PIV. REVIEW OF LABS: All labs were reviewed. Recent Results (from the past 24 hour(s)) Coronavirus (COVID-19) NAAT Result Value Ref Range SARS-CoV-2, NAAT (COVID-19) NEGATIVE NEG Basic Metabolic Panel Result Value Ref Range Na 141 135 - 145 mmol/L K 3.6 3.5 - 4.9 mmol/L Cl 109 99 - 109 mmol/L CO2 21 (L) 23 - 32 mmol/L Anion Gap 15 5 - 20 mmol/L Glucose 104 (H) 65 - 99 mg/dL BUN 18 8 - 25 mg/dL Creatinine 0.90 0.70 - 1.30 mg/dL BUN/Creatinine Ratio 20 Calcium 8.2 (L) 8.5 - 10.5 mg/dL Estimated GFR >60 >60 mL/min/1.73m2 MICROBIOLOGY Microbiology Results (Last 14 Days by Collected Date with Culture/Sensitivity) Procedure Component Value Units Date/Time Coronavirus (COVID-19) NAAT [[id number]] Collected: 12/16/192313 Order Status: Completed Lab Status: Final result Updated: 12/17/19 0022 SARS-CoV-2, NAAT (COVID-19) NEGATIVE Comment: This test was developed and its performance characteristics determined by [email or web address]. It has not been cleared or approved by the [place] FDA. This test has been authorized by FDA under an Emergency Use Authorization (EUA). Clinicians should be advised to consider a patients signs, symptoms, history, and results of other diagnostic tests when interpreting results. Testing performed at [facility];[address] [place] [address];[place] [address] Coronavirus (COVID-19) NAAT [[id number]] Collected: 12/16/192135 Order Status: Canceled Lab Status: No result Specimen: Tissue from Nasopharynx Culture, Blood [[id number]] Collected: 12/16/191924 Order Status: Sent Lab Status: In process Updated: 12/16/192036 Specimen: Peripheral Blood Culture, Blood [[id number]] Collected: 12/16/191924 Order Status: Sent Lab Status: In process Updated: 12/16/192035 Specimen: Peripheral Blood Microbiology Results (72 hrs) Procedure Component Value Units Date/Time Coronavirus (COVID-19) NAAT [[id number]] Collected: 08/04/20 2314 Order Status: Completed Lab Status: Final result Updated: 12/17/19 0022 SARS-CoV-2, NAAT (COVID-19) NEGATIVE Comment: This test was developed and its performance characteristics determined by [email or web address]. It has not been cleared or approved by the [place] FDA. This test has been authorized by FDA under an Emergency Use Authorization (EUA). Clinicians should be advised to consider a patients signs, symptoms, history, and results of other diagnostic tests when interpreting results. Testing performed at [facility];[address] [place] [address];[place] [address] Culture, Blood [[id number]] Collected: 12/16/191924 Order Status: Sent Lab Status: In process Updated: 12/16/192036 Specimen: Peripheral Blood Culture, Blood [[id number]] Collected: 12/16/191924 Order Status: Sent Lab Status: In process Updated: 12/16/192035 Specimen: Peripheral Blood IMAGING No new images for review today. DIAGNOSES: Active Hospital Problems Diagnosis Date Noted Acute bacterial endocarditis 12/16/2019 Diet-controlled diabetes mellitus 12/16/2019 Resolved Hospital Problems No resolved problems to display. ASSESSMENT AND RECOMMENDATIONS The patient is a 69 y.o.-year-old male with the following problems: 1. Subacute mitral valve endocarditis Large vegetation found on mitral valve with eccentric regurgitation. The patient will need cardiothoracic surgery consultation due to large size of vegetation. ARNOLDO to evaluate eccentric regurgitation ?perf? Repeat blood cultures x2 sets are in process. Patient will be covered with vancomycin and gentamicin. Gentamicin synergy per pharmacy service. 2. Gram-positive cocci in chains bacteremia. Enterococcus versus viridans Streptococcus. Antibiotics as above. 3. Splenic infarcts/emboli on CT 4. Possible kidney hematogenous seeding as well per CT. 5. Very poor dentition. 6. Massive weight loss, secondary to #1. This will have to be addressed prior to any type of cardiac surgical intervention. Discussed with attending provider: Reilly Neil Ma, MD . Thank you for this consultation. Will follow along. Alexi Noble MD, MPH Infectious Diseases 12/17/19 documented in this encounter Miscellaneous Notes Plan of Care - Salo Slade RN - 12/30/2019 9:35 PM PDT Problem: Adult Inpatient Plan of Care Goal: Optimal Comfort and Wellbeing Outcome: Ongoing, progressing Pt resting comfortably with no s/s of distress lan of Care - Aki Saucedo, PT, DPT - 12/30/2019 4: 22 PM PDT Physical Therapy Treatment Note Recommended discharge disposition: home with assist Post discharge physical therapy recommendation: home health Equipment Recommendations: 4 wheeled walker (4WW) Barriers to community-based discharge None Recommended Frequency: twice a day for 7 days with reassessment due by 01/01/20 Summary: Pt. did not d/c. Reports the plan now is to d/c tomorrow in the a.m. He continu es to mobilize well and feels happy about his progress overall. The pt. continues to requir e occasional reminder to follow precautions. VSS throughout mobility progression. Precautions Precaution Comment: Picc LUE Precautions/Limitations: cardiac, sternal, falls Cognitive Assessment Orientation: oriented x 4 Bed Mobility Supine to Sit, Level of Devol: minimal assist (75% patient effort), moderate assist (50% patient effort) Transfers Sit-Stand, Level of Devol: stand by assist Gait Level of Devol: stand by assist Assistive Device: 4 wheeled walker (4WW) Distance (feet): 350 Gait Pattern Analysis: swing-through gait Gait Deviations: yeison decreased Safety Issues: balance decreased during turns Balance Sitting Balance: Static: good balance Sitting Balance: Dynamic: good balance Standing Balance: Static: fair balance Standing Balance: Dynamic: fair balance Goals Reflects last filed data and may be from multiple contributors. All Bed Mobility Goal Most Recent Value LTG Devol Level minimum assist (75% patient effort) at 12/25/2019 1022 All Transfers Goal Most Recent Value LTG Devol Level stand by assist, contact guard assist at 12/25/2019 1022 Gait Goal Most Recent Value LTG Devol Level stand by assist, contact guard assist at 12/25/2019 1022 LTG Assistive Device 2 wheeled walker (FWW), 4 wheeled walker (4WW) at 12/25/2019 1022 LTG Distance (feet) 150 at 12/25/2019 1022 lan of Care - Sheila Pillai MA, CCC-CHROMOSOMAL DISORDERS COUNSELOR - 12/30/2019 1:16 PM PDT Speech Therapy Bedside Swallow Treatment Note Swallow Recommendations Recommended Solid Texture: pureed, other (see comments)(1 DMA item per tray ) Recommended Liquid Texture: thin liquids Recommended Medication Delivery: whole pills with puree Recommended Feeding/Eating Techniques: check mouth frequently for oral residue/pocketing, o ral care before and after each meal, cue patient to swallow 2-3 times per bite, maintain upr ight posture during/after eating for 30 mins, liquids by cup/sip only, no straws, single sip s, one small sip or bite at a time, 1:1 feeding, pacing, slow rate Summary: Pt seen for follow up dysphagia tx. Pt alert and cooperative, sitting up in chair . He reports he is edentulous so textured foods are difficult. He has been tolerating pureed consistency and occasionally DMA without difficulty. Pt observed with thin liquids alternat ing with DMA. He required extra time to masticate and required liquid wash to clear, but was able to effectively clear all trials. Recommend pureed diet with 1 DMA item per tray with t hin liquids. Pt given pureed food ideas/options and reviewed swallow precautions as he is di scharging from the hospital tomorrow. Pt stated understanding and agreement. ST to discharge at this time. Please re-order if further concerns arise. Recommended discharge disposition: other (see comments)(TBD) Post discharge speech language pathology recommendation: other (see comments)(TBD) Planned Interventions: diet texture modification Recommended Frequency: other (see comments)(ST to discharge - pt is discharging the [facility] ) for 7 days with reassessment due by 01/01/20 Thin Liquid - Bedside Swallowing Mode of Presentation: self fed Volume(s) Presented (mL): patient controlled volumes Oral Phase Results: intact oral phase without signs of dysfunction Pharyngeal Phase Results: safe swallow, no signs/symptoms of aspiration or penetration Mixed Consistencies Bedside Swallowing Mode of Presentation: self fed Volume(s) Presented (mL): patient controlled volumes Oral Phase Results: impaired oral phase, signs of dysfunction present Pharyngeal Phase Results: safe swallow, no signs/symptoms of aspiration or penetration Additional Documentation: oral transit concerns Oral Transit Concerns: oral transit delayed Education Completed Dysphagia: Explain results of session, speech-language pathology role, plan of care, most s afe diet and swallow precautions Learners: Patient Readiness: Acceptance Method: Explanation Response: Verbalizes Understanding Dysphagia Goal Most Recent Value LTG Status met at 12/30/2019 1259 LTG Pt will tolerate LRD at 12/30/2019 1259 CHROMOSOMAL DISORDERS COUNSELOR Time Calculation CHROMOSOMAL DISORDERS COUNSELOR Individual Start Time: 1259 CHROMOSOMAL DISORDERS COUNSELOR Individual Stop Time: 1322 CHROMOSOMAL DISORDERS COUNSELOR Individual Total Time: 23 CHROMOSOMAL DISORDERS COUNSELOR Total Treatment Time: 23 SHEILA PILLAI MA, CCC-CHROMOSOMAL DISORDERS COUNSELOR 12/30/2019 lan of Care - Job Brooks MSW - 12/30/2019 10:22 AM PDTDISCHARGE PLANNING FLASH OVEN OPERATOR p/c with Renetta with Dr. Combs office with [facility], obtain ed upcoming trae aden appt ([phone] fax, phone) for SundayJan 05. Dr. Combs will follow NOT follow new Coumadin or new Home Health orders until after new appt on Jan 05. FLASH OVEN OPERATOR p/c with Pilar with [facility], set up teaching today at 2pm in room with Pt and Pt daughter with Pt, unfortunately they are unable to senior marketing engineer medications to Pt by next 9pm dose, so Pt will stay another night in hospital, (avoidable day documented), Pt funmilayo l receive his 9:00am dose on Sunday then leave here at approx. 9:30am. Rosa sheriff RN. Pt already has discharge medications filled by [facility]. New Coumadin Clinic appt for 12/31 with Kenroy MCCOY at [facility], appt added to AVS. Transportation: Pt will transport Pt home tomorrow morning. DCP: Home with IV Abx - Sunday 9:30am YOBANY HOLGUIN [phone] [id number] lan of Care - Darling Terrell, OTR/L - 12/30/2019 9:00 AM PDT Occupational Therapy Treatment Note Recommended discharge disposition: home with assist Post discharge occupational therapy recommendation: family involved/supportive, home health Equipment Recommendations: hand held shower head, long handled sponge, soil sort worker, sock aide, toilet tongs, shower chair Barriers to community-based discharge: Level of assistance for ADLs/Mobility, Lack of equip ment, and Precautions Recommended Frequency: 3 times/wk for 10 days with reassessment due by 01/08/20 Summary: Pt is seated in the recliner upon entry, awake and agreeable to OT session. BP @ 150/71. During this evaluation pt completed ADL tasks to reinforce precautions, review of AE recommendations and home safety. Pt demonstrated good recall of education from previous day , however required instruction/tactile cueing to maintain precautions. Objective impairments include decreased activity tolerance, level of assist for self care tasks. Pt reports good support of family at home. Pt left seated in the recliner, call light nearby, RN aware. Precautions Precaution Comment: L arm picc line Precautions/Limitations: cardiac, falls, sternal ADLs Grooming Assessment/Training Grooming, Level of Devol: set up required Assistive Device: none Grooming Assess/Train, Position: sitting Upper Body Dressing Assessment/Training UB Dressing Assess/Train, Comment: Instructions provided for technique and tactile cueing t o maintain UEs close to chest when donning shirt overhead UB Dressing, Level of Devol: minimal assist (75% patient effort), verbal cues requir ed Assistive Device: none UB Dressing Assess/Train, Position: sitting UB Dressing Impairments: (precautions) Lower Body Dressing Assessment/Training LB Dressing Assess/Train, Comment: Pt was able to safetly bring feet up in order to don ryan ts over feet. LB Dressing, Level of Devol: minimal assist (75% patient effort), verbal cues requir ed Assistive Device: none LB Dressing Assess/Train, Position: sitting, standing LB Dressing Impairments: (precautions) Transfers Sit-Stand, Level of Devol: stand by assist Stand-Sit, Level of Devol: stand by assist [id number], Assistive Device: 4 wheeled walker (4WW) Impairments: strength decreased Balance Sitting Balance: Static: good balance Sitting Balance: Dynamic: good balance Standing Balance: Static: fair balance Goals Reflects last filed data and may be from multiple contributors. UB Dressing Goal Most Recent Value LTG Status new at 12/29/2019 1425 LTG Devol Level minimum assist (75% patient effort) at 12/29/2019 1425 LTG Adaptive Equipment none at 12/29/2019 1425 LTG Comments Maintaining sternal precautions at 12/29/2019 1425 LB Dressing Goal Most Recent Value LTG Status new at 12/29/2019 1425 LTG Devol Level minimum assist (75% patient effort), verbal cues required at 2019 1425 LTG Adaptive Equipment soil sort worker, shoe horn, long handled, sock-aid at 12/29/2019 1425 LTG Comments Maintaining sternal precautions at 12/29/2019 1425 OT Time Calculation OT Individual Start Time: 0900 OT Individual Stop Time: 09 OT Individual Total Time: 38 OT Total Treatment Time: 38 10: 15 AM PDTPlan of Lilo - Aki Saucedo PT, DPT - 12/30/2019 8:15 AM PDT Physical Therapy Treatment Note Recommended discharge disposition: home with assist Post discharge physical therapy recommendation: home health Equipment Recommendations: 4 wheeled walker (4WW) Barriers to community-based discharge None Recommended Frequency: twice a day for 7 days with reassessment due by 01/01/20 Summary: Pt is with improving functional strength and adhering to sternal precautions kristy rly well, only needing for precautions approx 25% of the time. He was educated in mobili ty considerations and reviewed precautions as the pt. is supposed to d/c later today. VSS t hroughout mobility progression. Precautions Precautions/Limitations: cardiac, sternal Cognitive Assessment Orientation: oriented x 4 Bed Mobility Supine to Sit, Level of Devol: minimal assist (75% patient effort), moderate assist (50% patient effort) Transfers Sit-Stand, Level of Devol: stand by assist Gait Level of Devol: stand by assist Assistive Device: 4 wheeled walker (4WW) Distance (feet): 350 Gait Pattern Analysis: swing-through gait Gait Deviations: yeison decreased Goals Reflects last filed data and may be from multiple contributors. All Bed Mobility Goal Most Recent Value LTG Devol Level minimum assist (75% patient effort) at 12/25/2019 1022 All Transfers Goal Most Recent Value LTG Devol Level stand by assist, contact guard assist at 12/25/2019 1022 Gait Goal Most Recent Value LTG Devol Level stand by assist, contact guard assist at 12/25/2019 1022 LTG Assistive Device 2 wheeled walker (FWW), 4 wheeled walker (4WW) at 12/25/2019 1022 LTG Distance (feet) 150 at 12/25/2019 1022 lan of Salo Mendez RN - 12/29/2019 9:48 PM PDT Problem: Pain (Cardiovascular Surgery) Goal: Acceptable Pain Control Outcome: Ongoing, progressing Pt resting comfortably with no s/s of distress No acute events, VSS A M PDTPlan of Job Jara MSW - 12/29/2019 5:18 PM PDTDISCHARGE PLANNING FLASH OVEN OPERATOR met with Pt regarding choice for home infusion, states preference is [facility]. FLASH OVEN OPERATOR p/c Pilar with [facility], needs IV Abx order, discussed with Pt . FLASH OVEN OPERATOR faxed referral to [facility], faxed referral to Lillie for PT and RN. Need Home health order for PT and RN Pt states Pt has new PCP - Dr. LILLIAN ACOSTA MD - [address], [place] [address] - Need to call Office on Sunday morning for Coumadin Follow up appt. DCP: Home YOBANY HOLGUIN [phone] cell lan of Papa Osuna PT - 12/29/2019 4:32 PM PDT Physical Therapy Treatment Note Recommended discharge disposition: home with assist Post discharge physical therapy recommendation: home health Equipment Recommendations: 4 wheeled walker (4WW) Barriers to community-based discharge Physical Impairment Recommended Frequency: twice a day for 7 days with reassessment due by 01/01/20 Summary: Patient resting upon PT arrival, agreeable to participation. Patient is very part icipatory. He is emotional discussing his medical journey these past 2 weeks and is eager to return home to his family. Improved path management noted during gait. Pt is with improving functional strength and adhering to sternal precautions fairly well, only needing for pr ecautions approx 25% of the time. He is agreeable to HH therapy/RN and for a 4WW. Pt in the chair after activity, all needs met. Vitals at rest in supine: HR 64, BP 163/72, SpO2 96% RA . Precautions Precautions/Limitations: cardiac, sternal, falls Cognitive Assessment Mood/Behavior: calm, cooperative Orientation: oriented x 4 Transfers Sit-Stand, Level of Devol: stand by assist Stand-Sit, Level of Devol: stand by assist [id number], Assistive Device: 4 wheeled walker (4WW) Toilet, Level of Devol: stand by assist Toilet, Assistive Device: 4 wheeled walker (4WW) Safety Issues: step length decreased Impairments: impaired balance, strength decreased Gait Level of Devol: stand by assist Assistive Device: 4 wheeled walker (4WW) Distance (feet): 350 Goals Reflects last filed data and may be from multiple contributors. All Bed Mobility Goal Most Recent Value LTG Devol Level minimum assist (75% patient effort) at 12/25/2019 1022 All Transfers Goal Most Recent Value LTG Devol Level stand by assist, contact guard assist at 12/25/2019 1022 Gait Goal Most Recent Value LTG Devol Level stand by assist, contact guard assist at 12/25/2019 1022 LTG Assistive Device 2 wheeled walker (FWW), 4 wheeled walker (4WW) at 12/25/2019 1022 LTG Distance (feet) 150 at 12/25/2019 1022 PT Time Calculation Individual Start Time: 1555 Individual Stop Time: 1625 Individual Total Time: 30 PT Total Treatment Time: 30 lan of Sonia Lema C, RN - 12/29/2019 3:20 PM PDTPt is alert and oriented x 4. Uses FWW for ambula ting. Nonskid socks in place. Bed in low position and locked. Uses call light appropriately. No fevers or signs of infections. Wound vac in place at 125 mmHg. VSS Sonia Brown RN 12/29/19 lan of Car Darling Whitehead, OTR/L - 12/29/2019 2:25 PM PDTFormatting of this note might be differen t from the original. Occupational Therapy Initial Evaluation Note Recommended discharge disposition: home with assist Post discharge occupational therapy recommendation: family involved/supportive, home healt h Equipment Recommendations: hand held shower head, long handled sponge, soil sort worker, sock aide, toilet tongs, shower chair Barriers to community-based discharge Physical Impairment, Level of assistance for ADLs/mobility, Lack of equipment, Precautions, and Fall risk Planned Interventions: ADL retraining, balance training, bed mobility training, fine motor coordination training, functional endurance training, patient/family education, ROM (Range o f Motion), transfer training Frequency: 3 times/wk for 10 days with reassessment due by 01/08/20 Summary: Pt is seated in bed upon entry, lethargic, but agreeable to OT session. BP @ 146 /70. During this evaluation pt reviewed/education on sternal precautions and ADL performance , use of AE and benefits to its use. Provided pt with demonstration, verbal education and flores ndout for AE recommendations and sternal precautions handout for ADLs. Objective impairments include decreased activity tolerance, level of assist for self care tasks. Pt reports good support of spouse at home. Anticipate with progression, pt to return home with support and HH services. Pt requesting to remain seated in bed at end of session, call light nearby, RN aware. Living Environment Lives With: spouse Living Arrangements: house Number of Stairs to Enter Home: 0 Number of Stairs Within Home: 0 Living Environment Comment: Walk in shower with threshold: grab bars. Standard toilet heigh t. FWW accessible. Pt was not using any AD Prior Functional Level Comment: Indep in ADLs/IADLs, was driving. Retired. Hobbies: cars Precautions Precaution Comment: L arm picc line Precautions/Limitations: cardiac, sternal, falls Cognitive Assessment Cognitive Comments: Answers questions appropriately throughout evaluation. Pt was able to r ecall 3 sternal precautions Mood/Behavior: calm, cooperative Orientation: oriented x 4 Impairments Found (describe specific impairments): aerobic capacity/endurance, functional e ndurance/activity tolerance, gait, locomotion, and balance, ROM, cognitive Sensory Assessment Sensation Comments: Denies any sensation changes Vision Comments: Wears glasses for reading & driving. No acute changes from his baseline Pt requesting to wait and practice ADLs as pt fatigued at this time. Pt reported multiple t imes up to the bathroom with use of the 4WW. Reviewed importance of OOB activities and pt st ated understanding. Plan to further address ADLs as they arise. OT demonstrated/simulated do nning/doffing shirt/pants, AE needs for his shower at home, and personal hygiene. Pt may tosha efit from further education/training for a toilet aid for ease and to maintain precautions. Educated pt on Sternal precautions including the following: No raising arms above head greater than 90 degrees and no raising one arm above head withou t the other No pushing pulling No reaching back with BUE's No lifting more than 5lbs No bending over to feet Educated on strategies/suggestions for ADL completion while maintaining precautions includi ng the following: UB dressing: thread both arms through sleeves, then raising both hands up together place sh irt over head, bring both arms to same side of trunk to pull shirt down. LB dressing: use of soil sort worker, sock aid, or bringing foot up to opposite knee to thread pants /don socks, then crossing one arm over chest when reaching back to pull pants up OR reaching with both arms to one side to pull pants up over hips. Bathing: Seated on chair; use of shower head (not reaching up with one hand to grab shower head) and long handled sponge Toileting: tomás care from front to back OR crossing arm over chest while reaching behind wi th opposite arm. ROM Comments: UE ROM WFL with respect to sternal precautions Strength Comments: UE WFL with respect to sternal precautions Goals Reflects last filed data and may be from multiple contributors. UB Dressing Goal Most Recent Value LTG Status new at 12/29/2019 1425 LTG Devol Level minimum assist (75% patient effort) at 12/29/2019 1425 LTG Adaptive Equipment none at 12/29/2019 1425 LTG Comments Maintaining sternal precautions at 12/29/2019 1425 LB Dressing Goal Most Recent Value LTG Status new at 12/29/2019 1425 LTG Devol Level minimum assist (75% patient effort), verbal cues required at 2019 1425 LTG Adaptive Equipment soil sort worker, shoe horn, long handled, sock-aid at 12/29/2019 1425 LTG Comments Maintaining sternal precautions at 12/29/2019 1425 lan of Care - Papa Mclaughlin, PT - 12/29/2019 12:24 PM PDT Physical Therapy Treatment Note Recommended discharge disposition: home with assist Post discharge physical therapy recommendation: home health Equipment Recommendations: 4 wheeled walker (4WW)(tbd) Barriers to community-based discharge Physical Impairments Recommended Frequency: twice a day for 7 days with reassessment due by 01/01/20 Summary: Pt resting in bed upon PT arrival, eager to participate. Requesting to use the BR prior to mobility training. Pt able to void and have a BM, ed on pericare technique that ad heres to sternal precautions. pt demonstrates a subtle L path deviation during gait, benefit s from occasional for safety. Pt in the chair after activity. Good functional strength an d activity tolerance noted.Vitals at rest in sitting: HR 60, BP 149/68, SpO2 96% RA. Precautions Precautions/Limitations: cardiac, sternal Cognitive Assessment Mood/Behavior: calm, cooperative Orientation: oriented x 4 Arousal Level: opens eyes spontaneously Speech: clear, logical Transfers Sit-Stand, Level of Devol: stand by assist Stand-Sit, Level of Devol: stand by assist Toilet, Level of Devol: stand by assist Safety Issues: step length decreased Impairments: impaired balance, strength decreased Gait Level of Devol: stand by assist, contact guard assist Assistive Device: 4 wheeled walker (4WW) Distance (feet): 350 Goals Reflects last filed data and may be from multiple contributors. All Bed Mobility Goal Most Recent Value LTG Devol Level minimum assist (75% patient effort) at 12/25/2019 1022 All Transfers Goal Most Recent Value LTG Devol Level stand by assist, contact guard assist at 12/25/2019 1022 Gait Goal Most Recent Value LTG Devol Level stand by assist, contact guard assist at 12/25/2019 1022 LTG Assistive Device 2 wheeled walker (FWW), 4 wheeled walker (4WW) at 12/25/2019 1022 LTG Distance (feet) 150 at 12/25/2019 1022 lan of Job Berg RN - 12/29/2019 6:22 AM PDT Problem: Cerebral Tissue Perfusion Risk (Cardiovascular Surgery) Goal: Effective Cerebral Perfusion Outcome: Ongoing, progressing Pt still impulsive and forgetful at times, but easily reoriented and educated. Pt able to f ollow commands and instructions well. No hallucinations throughout the shift. Problem: Pain (Cardiovascular Surgery) Goal: Acceptable Pain Control Outcome: Ongoing, progressing Pt denies pain, appears comfortable and able to sleep overnight. Problem: Postoperative Urinary Retention (Cardiovascular Surgery) Goal: Effective Urinary Elimination Outcome: Ongoing, progressing Pt voiding QS with urinal and in bathroom. Urine clear & yellow lan of Nj Gaitan RN - 12/28/2019 5 :41 PM PDTProblem: Infection (Cardiovascular Surgery) Goal: Absence of Infection Signs/Symptoms Outcome: Ongoing, progressing Note: VSS, afebrile, no acute s/s of infection or complications thereof lan of Benjamín Llamas rd, PT - 12/28/2019 1:00 PM PDTFormatting of this note might be different from [place] Physical Therapy Treatment Note Recommended discharge disposition: home with assist Post discharge physical therapy recommendation: home health(HHPT) Equipment Recommendations: (TBD may need 4WW) Barriers to community-based discharge Level of assistance for ADLs/mobility, Precautions, and Fall risk Recommended Frequency: twice a day for 7 days with reassessment due by 01/01/20 Summary: pt. sitting in recliner when therapist arrived and agreeable to PT. Obtained 4WW and demonstrated to pt. how to use it. Reviewed sternal precautions with pt. which pt. was able to state 4/5 this afternoon. pt. used restroom multiple times and PT discussed how to wipe within precautions (pt. would benefit from cont. ed). pt. continues to make progress and anticipate if pt. conts. like this will be able to go home with assist from spouse. Precautions Precaution Comment: fall risk Precautions/Limitations: cardiac, sternal Transfers Additional Documentation: toilet, sit to/from stand Sit-Stand, Level of Devol: contact guard assist Stand-Sit, Level of Devol: contact guard assist [id number], Assistive Device: 4 wheeled walker (4WW) Toilet, Level of Devol: contact guard assist Toilet, Assistive Device: 4 wheeled walker (4WW) Impairments: impaired balance, strength decreased Gait Level of Devol: contact guard assist Assistive Device: 4 wheeled walker (4WW), gait belt Distance (feet): 200 Gait Deviations: yeison decreased, stride length decreased Safety Issues: balance decreased during turns Goals Reflects last filed data and may be from multiple contributors. All Bed Mobility Goal Most Recent Value LTG Devol Level minimum assist (75% patient effort) at 12/25/2019 1022 All Transfers Goal Most Recent Value LTG Devol Level stand by assist, contact guard assist at 12/25/2019 1022 Gait Goal Most Recent Value LTG Devol Level stand by assist, contact guard assist at 12/25/2019 1022 LTG Assistive Device 2 wheeled walker (FWW), 4 wheeled walker (4WW) at 12/25/2019 1022 LTG Distance (feet) 150 at 12/25/2019 1022 PT Time Calculation Individual Start Time: 1300 Individual Stop Time: 1357 Individual Total Time: 57 PT Total Treatment Time: 57 lan of Care - Benjamín Westbrook PT - 12/28/2019 8:40 AM PDT Physical Therapy Treatment Note Recommended discharge disposition: inpatient rehabilitation facility(vs. Home with assist p ending progress) Post discharge physical therapy recommendation: minimum 5 days of therapy/week, will benef it from structured setting, family involved/supportive Equipment Recommendations: (TBD) Barriers to community-based discharge Level of assistance for ADLs/mobility, Precautions, and Fall risk Recommended Frequency: twice a day for 7 days with reassessment due by 01/01/20 Summary: Pt. sitting in recliner when therapist arrived and agreeabe to PT. reviewed prec autions with pt. who was able to 1/5 but was able to follow during session. pt. ambulates w ith HPW and is able to clear LLE pt. landing heel to toe this session. pt. more with it cog . [place] and follows commands with no need for repeats. Precautions Precaution Comment: fall risk Precautions/Limitations: cardiac, sternal Transfers Additional Documentation: sit to/from stand Sit-Stand, Level of Devol: contact guard assist Stand-Sit, Level of Devol: contact guard assist [id number], Assistive Device: gait belt, other (see comments)(HPW) Safety Issues: step length decreased Impairments: impaired balance, strength decreased Gait Level of Devol: contact guard assist Assistive Device: gait belt, other (see comments)(HPW) Distance (feet): 120 Gait Deviations: yeison decreased, double stance time increased, limb motion velocity decr eased Safety Issues: balance decreased during turns, sequencing ability decreased, step length de creased, weight-shifting ability decreased Goals Reflects last filed data and may be from multiple contributors. All Bed Mobility Goal Most Recent Value LTG Devol Level minimum assist (75% patient effort) at 12/25/2019 1022 All Transfers Goal Most Recent Value LTG Devol Level stand by assist, contact guard assist at 12/25/2019 1022 Gait Goal Most Recent Value LTG Devol Level stand by assist, contact guard assist at 12/25/2019 1022 LTG Assistive Device 2 wheeled walker (FWW), 4 wheeled walker (4WW) at 12/25/2019 1022 LTG Distance (feet) 150 at 12/25/2019 1022 PT Time Calculation Individual Start Time: 0810 Individual Stop Time: 0840 Individual Total Time: 30 PT Total Treatment Time: 30 lan of [facility] - Rima Webb RN - 12/28/2019 6:50 AM PDT Problem: Activity Intolerance (Cardiovascular Surgery) Goal: Improved Activity Tolerance Outcome: Not met, adequate for care transition Pt correctly follows sternal precautions, pt is strong and able to ambulate with standby a ssist. lan of [place] - Yfn Cabrera RN - 12/27/2019 5:10 PM PDT Problem: Infection Goal: Infection Symptom Resolution Outcome: Ongoing, progressing Cordis cath, villa catheter and ART line removed. No s/sx of infection noted. Patient sparkle ins afebrile. Problem: Malnutrition Goal: Improved Nutritional Intake Outcome: Ongoing, progressing Improved appetite today, ate 100% of dinner. Sliding scale insulin per Emar. Problem: Activity Intolerance (Cardiovascular Surgery) Goal: Improved Activity Tolerance Outcome: Ongoing, progressing Up with 1 person and platform walker, ambulating in hallway with PT. Steady gait noted. So me left side delay noted. lan of [place] - Benjamín Crowe PT - 12/27/2019 2:35 PM PDTFormatting of this note m ight be different from the original. Physical Therapy Treatment Note Recommended discharge disposition: inpatient rehabilitation facility Post discharge physical therapy recommendation: minimum 5 days of therapy/week, will benef it from structured setting, family involved/supportive Equipment Recommendations: (TBD) Barriers to community-based discharge Physical Impairment, Level of assistance for ADLs/mobility, Precautions, and Fall risk Recommended Frequency: twice a day for 7 days with reassessment due by 01/01/20 Summary: pt. sitting in recliner when therapist arrived and agreeable to PT. Reviewed jamari rnal precautions with pt. who wasn't able to get any of them and needs reminders throughout the session. pt. able to ambulate out in the hallway with good clearance of L foot but pt. tends to land flat footed instead of heel to toe motion. pt. should benefit from continued therapy to address gait and functional endurance. Precautions Precaution Comment: fall risk Precautions/Limitations: cardiac, sternal Transfers Additional Documentation: sit to/from stand Sit-Stand, Level of Devol: minimal assist (75% patient effort) Stand-Sit, Level of Devol: moderate assist (50% patient effort) [id number], Assistive Device: gait belt, other (see comments)(HPW) Safety Issues: loses balance backward, step length decreased Impairments: impaired balance, strength decreased Gait Level of Devol: minimal assist (75% patient effort) Assistive Device: gait belt, other (see comments)(HPW) Distance (feet): 80 Gait Pattern Analysis: swing-to gait Gait Deviations: yeison decreased, double stance time increased, limb motion velocity decr eased Safety Issues: balance decreased during turns, sequencing ability decreased, step length de creased, weight-shifting ability decreased Goals Reflects last filed data and may be from multiple contributors. All Bed Mobility Goal Most Recent Value LTG Devol Level minimum assist (75% patient effort) at 12/25/2019 1022 All Transfers Goal Most Recent Value LTG Devol Level stand by assist, contact guard assist at 12/25/2019 1022 Gait Goal Most Recent Value LTG Devol Level stand by assist, contact guard assist at 12/25/2019 1022 LTG Assistive Device 2 wheeled walker (FWW), 4 wheeled walker (4WW) at 12/25/2019 1022 LTG Distance (feet) 150 at 12/25/2019 1022 PT Time Calculation Individual Start Time: 1435 Individual Stop Time: 1518 Individual Total Time: 43 PT Total Treatment Time: 43 lan of Care - Yesenia Murphy, Speech Pathologist - 12/27/2019 2:32 PM PDT Speech Therapy Bedside Swallow Treatment Note Swallow Recommendations Recommended Solid Texture: pureed, other (see comments)(1 DMA item per tray) Recommended Liquid Texture: thin liquids Recommended Medication Delivery: whole pills with puree Recommended Feeding/Eating Techniques: check mouth frequently for oral residue/pocketing, o ral care before and after each meal, cue patient to swallow 2-3 times per bite, maintain upr ight posture during/after eating for 30 mins, liquids by cup/sip only, no straws, single sip s, one small sip or bite at a time, 1:1 feeding, pacing, slow rate Summary: Pt seen for follow up dysphagia treatment. Pt upright in chair. Pt seen with thin liquids and DMA item. Pt continues to present with prolonged mastication and stated mild di scomfort when chewing. Recommend continue with puree diet with 1 DMA item and thin liquids. ST to continue to follow to assess for upgrade. Recommended discharge disposition: other (see comments)(TBD) Post discharge speech language pathology recommendation: other (see comments)(TBD) Planned Interventions: diet texture modification Recommended Frequency: 3 times/wk for 7 with reassessment due by Education Completed Dysphagia: Explain results of session, speech-language pathology role, plan of care, most s afe diet and swallow precautions Learners: Patient Readiness: Acceptance Method: Explanation Response: Needs Reinforcement Dysphagia Goal Most Recent Value LTG Status progressing at 12/23/2019 1641 LTG Pt will tolerate LRD at 12/21/2019 1224 CHROMOSOMAL DISORDERS COUNSELOR Time Calculation CHROMOSOMAL DISORDERS COUNSELOR Individual Start Time: 1420 CHROMOSOMAL DISORDERS COUNSELOR Individual Stop Time: 1432 CHROMOSOMAL DISORDERS COUNSELOR Individual Total Time: 12 CHROMOSOMAL DISORDERS COUNSELOR Total Treatment Time: 12 lan of Rima Mckenna RN - 12/27/2019 5:00 AM PDT Problem: Fall Injury Risk Goal: Absence of Fall and Fall-Related Injury Outcome: Ongoing, progressing Pt ambulated from bed to commode and into chair, pt was able to follow instructions, yolandaev er reported feeling dizzy. Mobility improved with practice, pt was able to stand up on his o wn. Will continue reminding pt about importance of sternal precautions. Electronically bipin d by Rima Tidwell RN at 12/27/2019 7:46 AM PDTPlan of Yfn Bhagat RN - 12/25 6:59 PM PDT Problem: Activity Intolerance (Cardiovascular Surgery) Goal: Improved Activity Tolerance Outcome: Ongoing, progressing Up with physical therapy to chair today. Tolerated well with no syncopal episodes or desat urations noted. In chair for 5+ hours. Problem: Pain (Cardiovascular Surgery) Goal: Acceptable Pain Control Outcome: Ongoing, progressing Prn pain medication administered per Emar and with effective pain relief noted. Electronic ally signed by Yfn Cabrera RN at 12/26/2019 7:00 PM PDTPlan of Yfn Bhagat RN - 12/26/2019 6:59 PM PDT Problem: Restraint, Nonbehavioral (Nonviolent) Goal: Discontinuation Criteria Achieved Outcome: Met Goal: Personal Dignity and Safety Maintained Outcome: Met lan of Care - Yelena Chavez, MS [facility]CHROMOSOMAL DISORDERS COUNSELOR - 12/26/2019 3:28 PM PDTFormatting of this note might be differen t from the original. Speech Therapy Bedside Swallow Re-Evaluation Note Swallow Recommendations Recommended Solid Texture: pureed, other (see comments)(1 DMA item per tray) Recommended Liquid Texture: thin liquids Recommended Medication Delivery: whole pills with puree, crushed pills with puree, if able( as tolerated) Recommended Feeding/Eating Techniques: check mouth frequently for oral residue/pocketing, o ral care before and after each meal, cue patient to swallow 2-3 times per bite, maintain upr ight posture during/after eating for 30 mins, liquids by cup/sip only, no straws, single sip s, one small sip or bite at a time, 1:1 feeding, pacing, slow rate Summary: Pt seen for reevaluation of swallow after being intubated for more than 24 hours. Pt can not use a straw at this time d/t recent removal of all teeth. Pt was seen with trial s of thin water, puding, and peaches. Pt demo'd cough x1 with larger cup sip of water. Pt wa s observed to complete multiple swallows for trials of puding and peach, but vocal quality w as clear post swallows. Pt demo'd prolonged mastication and asked if it was ok that he chewe d slow. ST encouraged this. Pt indicated that he sould not like to eat a pureed diet and the re was minimal pain/discomfort with more chewable textures. ST recommends a pureed diet with 1 DMA item per tray. ST to f/u to ensure tolerance and trial upgraded textures as pt is abl e to. Recommended discharge disposition: other (see comments)(TBD) Post discharge speech language pathology recommendation: other (see comments)(TBD) Planned Interventions: diet texture modification Recommended Frequency: 3 times/wk for 7 with reassessment due by 01/01/20 Education Completed Dysphagia: Explain results of session, speech-language pathology role, plan of care, most s afe diet and swallow precautions Learners: Patient Readiness: Acceptance Method: Explanation and Demonstration Response: Verbalizes Understanding and Needs Reinforcement Dysphagia Goal Most Recent Value LTG Status progressing at 12/23/2019 1641 LTG Pt will tolerate LRD at 12/21/2019 1224 CHROMOSOMAL DISORDERS COUNSELOR Time Calculation CHROMOSOMAL DISORDERS COUNSELOR Individual Start Time: 1528 CHROMOSOMAL DISORDERS COUNSELOR Individual Stop Time: 1551 CHROMOSOMAL DISORDERS COUNSELOR Individual Total Time: 23 CHROMOSOMAL DISORDERS COUNSELOR Total Treatment Time: 23 Electronically signed by Yelena Hicks MS [facility]CHROMOSOMAL DISORDERS COUNSELOR at 12/26/2019 4:06 PM PDTPlan of Aki Domingo, PT, DPT - 12/26/2019 10:42 AM PDT Physical Therapy Treatment Note Recommended discharge disposition: inpatient rehabilitation facility Post discharge physical therapy recommendation: minimum 5 days of therapy/week, will benef it from structured setting, family involved/supportive Equipment Recommendations: (TBD) Barriers to community-based discharge Cognitive Impairment, Physical Impairment, Level of assistance for ADLs/mobility, Precautio ns, and Fall risk Recommended Frequency: twice a day for 7 days with reassessment due by 01/01/20 Summary: Pt. was extubated this a.m. to 2L NC. He is in the bed, confused but cooperative . There is a sitter present due to confusion. He requires frequent for sternal precauti on adherence as well as to maintain focus on directions being given. He continues to demons trate mild L sided weakness which is more prominent during gait cycle. He requires modAx2 t o perform safe transfers. ModAx1-2 required to ambulate approx. 8 ft. using HPW. He demons trates slight decrease in foot clearance of the LLE during swing phase of gait. In addition , there is variability of the LLE during initial loading phase of gait cycle. He was left i n the chair with sitter nearby. VS remained stable throughout. Precautions Precaution Comment: fall risk Precautions/Limitations: cardiac, sternal Cognitive Assessment Orientation: disoriented to, place, time, situation Bed Mobility Supine to Sit, Level of Devol: moderate assist (50% patient effort), 2 person assist required Transfers Sit-Stand, Level of Devol: moderate assist (50% patient effort), 2 person assist req uired Gait Level of Devol: moderate assist (50% patient effort), 1 person + 1 person to manage equipment Assistive Device: (HPW) Distance (feet): 8 Gait Pattern Analysis: swing-to gait Gait Deviations: yeison decreased, double stance time increased, limb motion velocity decr eased Safety Issues: balance decreased during turns, sequencing ability decreased, step length de creased, weight-shifting ability decreased Balance Sitting Balance: Static: fair balance Sitting Balance: Dynamic: fair balance Standing Balance: Static: poor balance Standing Balance: Dynamic: poor balance Goals Reflects last filed data and may be from multiple contributors. All Bed Mobility Goal Most Recent Value LTG Devol Level minimum assist (75% patient effort) at 12/25/2019 1022 All Transfers Goal Most Recent Value LTG Devol Level stand by assist, contact guard assist at 12/25/2019 1022 Gait Goal Most Recent Value LTG Devol Level stand by assist, contact guard assist at 12/25/2019 1022 LTG Assistive Device 2 wheeled walker (FWW), 4 wheeled walker (4WW) at 12/25/2019 1022 LTG Distance (feet) 150 at 12/25/2019 1022 lan of Care - Lillie Patel MSW - 12/26/2019 9:47 AM PDTAttended daily rounding. Pt was extuba prasnana this morning and is confused, per RN. At baseline, pt resides with his spouse in [place], [place]. to follow for discharge planning. YOBANY VAUGHN lan of Care - Edelmira Wahl RN - 12/25/2019 11:25 PM PDT Problem: Adult Inpatient Plan of Care Goal: Plan of Care Review Outcome: Ongoing, progressing Problem: Adult Inpatient Plan of Care Goal: Optimal Comfort and Wellbeing Outcome: Ongoing, progressing Problem: Restraint, Nonbehavioral (Nonviolent) Goal: Discontinuation Criteria Achieved Outcome: Ongoing, progressing Problem: Adjustment to Surgery (Cardiovascular Surgery) Goal: Optimal Coping with Heart Surgery Outcome: Ongoing, progressing Problem: Respiratory Compromise (Cardiovascular Surgery) Goal: Effective Oxygenation and Ventilation Outcome: Ongoing, progressing Pt is able to follow commands, but is also very restless. He failed his SBT during day shivani ft due to agitation and apnea. We will plan a repeat SBT in the early AM. For now, will in crease dex and provide pain medication to help manage pain and improve sleep way cycle. Pt remains restrained due to multiple attempts at extubation and removal of central line per Da y shift RN. Pt is very restless in bed will assist with turns, but currently patient is contreras y active in bed. He does not maintain sternal precautions despite multiple attempts at gissell ucation. He uses both his upper shoulders to push himself around in bed and has limited abil ity to use his heart pillow. He is able to move both sides, but his left side continues to b e slightly weaker. His UO is on the low side, Day shift updated attending team. No interve ntion. lan of Trevor Coomsb ARNP - 12/25/2019 10:22 PM [facility] Service: Flare Worker Restraint for Medical Interference: Face to Face Assessment Reilly Hamm 69 y.o. Date of Admission: 12/16/2019 Restraint: Non-violent - Medical Interference Condition/Symptoms Necessitating Restraint: Patient displayed the following behaviors: inab ility to refrain from behavior that will dislodge drains, tubing or lines and inability to c ontrol impulses Evaluation of Alternative Measures: Less restrictive measures were attempted prior to rest raint. The patient's response to these measures was not adequate to ensure patient safety an d medical stability. Patient's Medical and Behavioral Condition: I have reviewed all available relevant medical and behavioral history, labs, medications and vital signs. Indication to Continue or Terminate Restraint or Seclusion: Patient will remain in restrain t until they meet criteria for discontinuation: originating behavior no longer evident and p atient oriented to person/place/time AERLY Kohler 12/25/2019 10:22 PM PDT lan of Marcie Canchola RN - 12/25/2019 2:55 PM PDT Problem: Infection Goal: Infection Symptom Resolution Outcome: Ongoing, progressing Intervention: Prevent or Manage Infection Flowsheets (Taken 12/25/2019 9909) Infection Management: aseptic technique maintained Note: Patient remains afebrile; WBC trending down from 12/23. No signs or symptoms of new i nfection. Patient remains on antibiotics esearch Note - Fadumo Williamson, - 12/25/2019 12:53 PM PDTBRAVE STUDY CONSENT Title: Biomedical Resilience & Readiness in [employer] Operating Environments (BRAVE)-- Sampling Molecular Effectors of COVID-19 in Exhaled Breath Condensate (EBC) Partner Study with [facility] ([facility]) You are being asked to provide verbal consent of behalf of a participant to participate in this study as their legally authorized lead customer service representative (LAR). The goal of the study is to co llect and analyze EBC from specimens collected on mechanically ventilated patients to potent ially identify more accurate prognosis and diagnosis for COVID-19 and respiratory illnesses. The benefits of participating in this study are that, hopefully, this research will advanc e improved medical capabilities for the COVID-19 global pandemic and intubated patient progn osis. Participation will end when the patient is removed from respirator aid (is extubated and off of the mechanical ventilator). The LAR has received study information from the Primary Hospitality Recruiter or an authorized Sub-I nvestigator and have had time to ask questions about the study and potential benefits and ri sks. All questions that the LAR had were answered and the LAR gave verbal consent to enroll this patient in the BRAVE study as outlined in the consent form, which the LAR was provided (copy sent via text to the LAR). The LAR understands that by giving verbal consent, he/she understands the provided informat ion stated and has had the opportunity to ask questions. He/She voluntarily gives [facility] permission to collect the specimens and send de-identified specimens a nd data to [facility]. He/She understands that participation is voluntary, and that he/she is shameka e to withdraw the participant at any time, without giving a reason and without penalty. He/She voluntarily agrees/ or does not consent as a legally authorized lead customer service representative on be half of a participant to participate in this study, as documented below: Do you consent for the patient to participate in this research study? __X___ Yes, I consent No, I do not consent Do you consent to use specimens and data for future research? 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 Remains vented. No prior notes indicating if d/c plannign was discussed and who can care for pt after d/c a s well as discussion about likely need for IV abx due to endocartditis. Will need to begin d iscussion with (Nathalie) regarding likely need for 6 weeks IV abx and 24/7 care for 2 wee ks after d/c. Per FS, pt only has Medicare so likely will need SNF for halfway IV abx. Contact Information Family Contact Information: Name: Nathalie Hamm(spouse); [phone] Phone: spouse additonal contact: Alvaro Newton, daughter, [email or web address] signed by Da Thomas ch FLASH OVEN OPERATOR at 12/25/2019 10:34 AM PDTPlan of Aki Nelson, PT, DPT - 12/25/2019 1 0:22 AM PDT Physical Therapy Initial Evaluation Note Recommended discharge disposition: other (see comments)(TBD) Post discharge physical therapy recommendation: other (see comments)(TBD) Equipment Recommendations: (TBD) Barriers to community-based discharge Physical Impairment, Level of assistance for ADLs/mobility, Precautions, and Fall risk Impairments Found (describe specific impairments): aerobic capacity/endurance, functional e ndurance/activity tolerance, gait, locomotion, and balance Planned Interventions: balance training, gait training, bed mobility training, transfer tra ining, patient/family education Recommended Frequency: twice a day for 7 days with reassessment due by 01/01/20 Summary: Pt. is s/p MVR. He has had complicated recovery with L sided weakness post op. 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 There is also que stion of seizure activity. The pt. is on minimal sedation on the vent. Vent settings: 25% FiO2, PEEP of 8. The pt. is sleepy but able to arous to voice/touch. He follows simple com mands fair however requires frequent reminders for sternal precaution adherence. He demonst rates some slight L sided weakness however is able to sit up at bedside with midline orienta tion requiring only CGA. He was able to stand and take 2-3 steps next to bedside. There is some slight evidence of decreased foot clearance of LLE however this seems minor. He did r eport increased dizziness upon upright activity. Marcie DE LA CRUZ increased pressor support due to this. His MAP however remained >65 throughout. WIll continue to increase activity once li berated from the vent/more alert. Living Environment Lives With: spouse Living Arrangements: house Home Accessibility: no concerns Living Environment Comment: Per notes, pt. was indep. at baseline without use of DME. Precautions Precaution Comment: fall risk Precautions/Limitations: cardiac, sternal Cognitive Assessment Arousal Level: arouses to voice Speech: endotracheal tube, unable to speak Bed Mobility Additional Documentation: supine to/from sit Supine to Sit, Level of Devol: moderate assist (50% patient effort), maximal assist (25% patient effort), 2 person assist required Transfers Additional Documentation: sit to/from stand Sit-Stand, Level of Devol: moderate assist (50% patient effort), 1 person + 1 person to manage equipment Gait Level of Devol: moderate assist (50% patient effort), maximal assist (25% patient ef fort), 1 person + 1 person to manage equipment Assistive Device: none, gait belt Distance (feet): 2 Additional Documentation: pattern, deviations, safety, impairments Gait Pattern Analysis: swing-to gait Gait Deviations: yeison decreased, limb motion velocity decreased, step length decreased, pcowy-bh-phrqes ratio decreased, weight-shifting ability decreased Safety Issues: balance decreased during turns, sequencing ability decreased, weight-shiftin g ability decreased Sensory Assessment Sensation Comments: seems intact Strength Strength Comments: WFL, slight LUE/LLE weakness Balance Sitting Balance: Static: fair balance Sitting Balance: Dynamic: fair balance Standing Balance: Static: poor balance Standing Balance: Dynamic: poor balance Goals Reflects last filed data and may be from multiple contributors. All Bed Mobility Goal Most Recent Value LTG Devol Level minimum assist (75% patient effort) at 12/25/2019 1022 All Transfers Goal Most Recent Value LTG Devol Level stand by assist, contact guard assist at 12/25/2019 1022 Gait Goal Most Recent Value LTG Devol Level stand by assist, contact guard assist at 12/25/2019 1022 LTG Assistive Device 2 wheeled walker (FWW), 4 wheeled walker (4WW) at 12/25/2019 1022 LTG Distance (feet) 150 at 12/25/2019 1022 lan of Karina Cueto MD - 12/25/2019 12:17 AM [facility] Service: Flare Worker Restraint for Medical Interference: Face to Face Assessment Reilly Hamm 69 y.o. Date of Admission: 12/16/2019 Restraint: Non-violent - Medical Interference Condition/Symptoms Necessitating Restraint: Patient displayed the following behaviors: inab ility to refrain from behavior that will dislodge drains, tubing or lines Evaluation of Alternative Measures: Less restrictive measures were attempted prior to rest raint. The patient's response to these measures was not adequate to ensure patient safety an d medical stability. Patient's Medical and Behavioral Condition: I have reviewed all available relevant medical and behavioral history, labs, medications and vital signs. Indication to Continue or Terminate Restraint or Seclusion: Patient will remain in restrain t until they meet criteria for discontinuation: originating behavior no longer evident Karina Engle MD 12/25/2019 12:17 AM PDT eilly Rodriguez MD PhD - 12/24/2019 12:56 PM PDT PATIENT NAME: Reilly Hamm AGE: 69 y.o. DATE OF PROCEDURE: 12/24/2019 PRE-OPERATIVE DIAGNOSIS: 1) severe mitral regurgitation, mitral valve endocarditis POST-OPERATIVE DIAGNOSIS: Same PROCEDURE PERFORMED: Mitral valve replacement with a 29 mm Saint Jose R Epic bioprosthetic valve Exploration of aortic valve Surgeon(s) and Role: * Reilly Galvan MD PhD - Primary Anesthesiologist: Nimesh Castillo MD Anesthesia Type: General Varnish Remover: Len Felipe RN; Hang Walker RN Street Sweeper: Trevon Bob, OR Tech Registered Nurse Resident Care Assistant: Ingrid Delvalle SUPPLY CATALOGUER; JOSE WaiteA Scrub: Kaycee Pina, OR Tech; Alisia Monk, OR Tech; Dianne Caballero, OR Tech ; Antoinette Baca, OR Tech Relief Street Sweeper: Jaxon Beckman CCP Pay Per Click Strategist: Bernadette Price [facility] Center[facility] INTRAOPERATIVE DATA: Cross-clamp time: 110 min CPB time: 143 min EBL: 200 mL INTRAOPERATIVE FINDINGS: 1. Severe mitral regurgitation with large vegetation on the P2 segment of the posterior le aflet 2. Preserved ventricular function with ejection fraction of 50% 3 mild aortic insufficiency 4. Well-seated prosthetic mitral valve with no evidence of paravalvular insufficiency by T EE Direct examination of the aortic valve revealed no visible vegetations and no holes. A sma ll amount of aortic insufficiency at the beginning of the examination was concerning for pos sible bivalvular disease but no visible disease was present on the aortic valve. The mitral valve revealed large vegetation and destruction of the P2 segment of the posteri or leaflet. The valve was not repairable. INDICATION FOR PROCEDURE: This is a 69 y.o. male with severe symptomatic mitral regurgitation. The patient has been treated for bacterial endocarditis and currently has negative blood cultures. The patient was felt to be an appropriate candidate for mitral valve replacement and the risks, benefits , and alternatives were discussed in detail with the patient who acknowledged understanding and wished to proceed. PROCEDURE IN DETAIL: The patient was taken to the operating room and placed in the supine position. After induc tion of general endotracheal anesthesia, monitoring lines and a transesophageal echo probe w ere placed. The patient was prepped and draped in standard sterile fashion, IV antibiotics were administered, and a timeout was performed. A sternotomy incision was made and a retractor inserted and the pericardium was incised and suspended. The transverse aortic arch was cannulated with a soft flow cannula. The superi or and inferior vena cava were cannulated directly. Umbilical tapes surrounded each KV for isolation. Once an appropriate ACT had been achieved, cardiopulmonary bypass was initiated. Antegrade and retrograde cardioplegia cannulas were placed. A cross-clamp was placed across the distal ascending aorta and antegrade and retrograde ca rdioplegia was used to achieve a diastolic arrest. Cardioplegia was administered at approxim ately 15 minute intervals and as needed throughout the case. Topical slush was used and je myocardial temperature monitored. Carbon dioxide was used to flood the operative field to decrease intracardiac air. A transverse aortotomy was made and the valve was inspected and found to be not significant ly diseased. There were no visible vegetations. There were several nodular areas on the ao rtic valve but a coapted well. Saline test revealed no leak. Exposure of the mitral valve was achieved via transseptal approach. A right atriotomy was performed and the fossa ovalis was divided. The previously identified atrial septal defect was included in the incision and closed. The incision was extended into the dome of the rig ht atrium for a superior septal approach. This provided adequate exposure to the mitral johnny ve. A very large vegetation was present the posterior leaflet. This area was excised. All den uded tissue was removed. There was no residual abnormal tissue remaining. A small amount o f the anterior leaflet was also excised. Circumferential 2-0 Ethibond pledgeted sutures were used for implantation of the mitral johnny ve. The annulus was sized to a 29 mm Saint Jose R bioprosthesis. The sutures were passed thr ough the valve and the valve was implanted. It was tied in place using the core knot device to decrease cross-clamp time. The valve seated well and was tested with no evident leak. Left atrium was closed using running 4-0 Prolene suture. Subsequently the right atrium was closed in similar fashion. The heart was de-aired, and the cross-clamp was removed in steep Trendelenburg position. T he heart returned to normal sinus rhythm. Atrial and ventricular pacing wires were placed a nd the retrograde cardioplegia cannula was removed. After a period of resuscitation, the le ft ventricular vent was removed and the patient was weaned from cardiopulmonary bypass witho ut significant difficulty and the venous cannula was removed. ARNOLDO was examined and showed t he findings listed above. After echo evaluation heparin was reversed with Protamine and the arterial cannula removed. Drains were placed in the pericardium, and the left pleural space were placed. The sternum was reapproximated with stainless steel sternal wires and the remainder of the incision was closed in layers with running absorbable suture. The patient tolerated the procedure well and was transported to the cardiac intensive care unit in stable condition. Electronically signed by: Reilly Galvan MD, PhD, FACS Cardiothoracic Surgery 12/24/2019 12:56 PM PDT lan of Lilo - Denise Wade RN - 12/23/2019 9:35 PM PDTVSS. Pre Op open heart protocol followed . Patient educated on sternal precautions and expectations for post op. Hourly rounding will continue. End of shift chart check complete. Denise Harry RN Problem: Adult Inpatient Plan of Care Goal: Plan of Care Review Outcome: Ongoing, progressing Flowsheets (Taken 12/23/20192132) Plan of Care Reviewed With: patient Note: Present for bedside report. Medications discussed, all cares explained, plan of care for shift, including pre op baths, agreed upon. Goal: Optimal Comfort and Wellbeing Outcome: Ongoing, progressing Note: All needs met at this time. Call light within reach and use encouraged. lan of Care - Lamont Sheree G, MS CCC-CHROMOSOMAL DISORDERS COUNSELOR - 12/23/2019 4:41 PM PDT Speech Therapy Bedside Swallow Treatment Note Swallow Recommendations Recommended Solid Texture: soft Recommended Liquid Texture: thin liquids Recommended Medication Delivery: whole pills with puree, crushed pills with puree, if able Recommended Feeding/Eating Techniques: alternate between small bites and sips of food/liqui d, check mouth frequently for oral residue/pocketing, monitor for signs of aspiration, cue p atient to swallow 2-3 times per bite, slow rate, no straws, one small sip or bite at a time, pacing, limit distractions Summary: Per RN, pt reported wanting to eat more solid food. Pt stated that he couldn't sw allow the peaches when he tried them because he didn't chew them and was trying to swallow t hem whole. Pt was agreeable to pureed textures, without observable s/sx of aspiration. Pt st ates that eventually he would like to get false teeth. If patient wants to try dental soft t extures in the near future, he can order them himself off the menu or work with the kitchen. Skilled ST services are not needed for him to try out different textures to see if he can c hew them as he is acclimating to not having teeth like he used to. If he or his would l angely education about potential food preparation to help with transition, please notify Speech Therapy. Post discharge speech language pathology recommendation: no further Speech Therapy Planned Interventions: diet texture modification Recommended Frequency: 1-2 sessions, for follow up for 7 Education Completed Dysphagia: Explain results of session, speech-language pathology role, plan of care, most s afe diet and swallow precautions Learners: Patient Readiness: Acceptance Method: Explanation and Demonstration Response: Verbalizes Understanding and Needs Reinforcement Dysphagia Goal Most Recent Value LTG Status progressing at 12/23/2019 1641 LTG Pt will tolerate LRD at 12/21/2019 1224 lan of Nv Preethi Bella RN - 12/23/2019 12:15 PM PDT Problem: Infection Goal: Infection Symptom Resolution Outcome: Ongoing, progressing pt remains afebrile. Pt continues on IV ABX per ID. Problem: Adult Inpatient Plan of Care Goal: Plan of Care Review Outcome: Ongoing, progressing Pre-op teaching done today for MVR tomorrow am. present for all teaching. PT had spee ch reevaluate swallow post teeth extraction. Stencil Printer at bedside to see pre-op. Pt expressed that he is nervous about surg. Discussed course of care post-op. End of shift chart review complete. lan of Lilo - Denise Harry RN - 12/22/2019 7:48 PM PDTHR 90-110's , SR-ST. All other VSS. Hourly rounding will continue. End of shift chart check complete. Denise Harry, DOROTHY Problem: Adult Inpatient Plan of Care Goal: Plan of Care Review Outcome: Ongoing, progressing Flowsheets (Taken 12/22/2019 1947) Plan of Care Reviewed With: patient Note: Present for bedside report. All cares explained, all medications discussed, plan of c are for shift agreed upon. Goal: Optimal Comfort and Wellbeing Outcome: Ongoing, progressing Note: All needs met at this time. Call light within reach and use encouraged. lan of Alisia Montgomery RN - 12/22/2019 5:41 PM PDT Problem: Adult Inpatient Plan of Care Goal: Optimal Comfort and Wellbeing Outcome: Ongoing, progressing Encouraging pt to change positions frequently throughout the day. Able to make needs known. Uses call light appropriately. Problem: Infection Goal: Infection Symptom Resolution Outcome: Ongoing, progressing Continues on IV antibiotics. Monitoring white count. Pt afebrile. Problem: Malnutrition Goal: Improved Nutritional Intake Outcome: Ongoing, progressing Pt seen by inventory control specialist. Pt has decreased appetite. Encouraging food that seem appetizing and with each interaction. Chart check complete. Alisia Bello RN lan of Lillie Dill MSW - 12/22/2019 11:40 AM PDTCare Management Follow-Up Readmission Risk: HIGH Current Discharge Plan Anticipated Discharge Disposition: home Expected DC Date: 12/29/2019 Steps Taken Toward Discharge: FLASH OVEN OPERATOR attended daily rounding. Pt will have valve replacement surgery sometime this week, date is not yet known. Next Steps: CM to follow for discharge planning. Community Support Services Current Outpt/Agency/Support Groups: none Discharge Transportation Transportation Needs: family or friend will provide Notes: At baseline, pt resides with spouse and is independent. Electronically signed: YOBANY VAUGHN 12/22/2019 11:40 AM PDT lan of Denise Selby RN - 12/21/2019 7:49 PM PDTHR 90's-110's. SR-ST. All other VSS. Ho urly rounding will continue. End of shift chart check complete. Denise Harry RN Problem: Adult Inpatient Plan of Care Goal: Plan of Care Review Outcome: Ongoing, progressing Flowsheets (Taken 12/21/20191947) Plan of Care Reviewed With: patient Note: Present for bedside report. All cares explained, all medications discussed, plan of c are for shift agreed upon. Goal: Optimal Comfort and Wellbeing Outcome: Ongoing, progressing lan of Care - Mallory Rodriguez RN - 12/21/2019 5:39 PM PDT Problem: Malnutrition Goal: Improved Nutritional Intake Outcome: Ongoing, progressing Note: Patient consumed AM and PM snacks for meals. Reports no appetite. Speech eval done this shift, diet advanced to general pureed, patient tolerating well. Rep orts mild pain to mouth, denies pain medication. End of shift chart check complete Mallory Rodriguez RN Report given to Alisia, all questions answered, agreed to continue care. lan of Care - Brooke Huitron V, Speech Pathologist - 12/21/2019 12:24 PM PDT Speech Therapy Bedside Swallow Initial Evaluation Note Swallow Recommendations Recommended Solid Texture: pureed, other (see comments)(could not trial other solids) Recommended Liquid Texture: thin liquids Recommended Medication Delivery: whole pills with puree, crushed pills with puree, if able Recommended Feeding/Eating Techniques: alternate between small bites and sips of food/liqui d, check mouth frequently for oral residue/pocketing, monitor for signs of aspiration, cue p atient to swallow 2-3 times per bite, slow rate, no straws, one small sip or bite at a time, pacing, limit distractions Summary: Pt seen for initial swallow eval due to concerns with thin liquids. Pt tolerated trials well with no overt s/sx of aspiration. Ptdemo'd coughing when given thins via straw b ut it resolved when taking sips via cup. Pt could not trial solids beyond puree as he had hi s teeth removed yesterday. ST to follow up to assess tolerance and to assess for possible so lid upgrade. Recommended discharge disposition: other (see comments)(TBD) Post discharge speech language pathology recommendation: other (see comments)(TBD) Planned Interventions: diet texture modification Recommended Frequency: 1-2 sessions, for follow up for 7 with reassessment due by 12/28/19 Education Completed Dysphagia: Explain results of session, speech-language pathology role, plan of care, most s afe diet and swallow precautions Learners: Patient Readiness: Eager Method: Explanation Response: Verbalizes Understanding Dysphagia Goal Most Recent Value LTG Status new at 12/21/2019 1224 LTG Pt will tolerate LRD at 12/21/2019 1224 CHROMOSOMAL DISORDERS COUNSELOR Time Calculation CHROMOSOMAL DISORDERS COUNSELOR Individual Start Time: 1224 CHROMOSOMAL DISORDERS COUNSELOR Individual Stop Time: 1246 CHROMOSOMAL DISORDERS COUNSELOR Individual Total Time: 22 CHROMOSOMAL DISORDERS COUNSELOR Total Treatment Time: 22 12: 46 PM PDTPlan of Lilo - Mallory Rodriguez RN - 12/20/2019 7:27 PM PDT Problem: Malnutrition Goal: Improved Nutritional Intake Outcome: Ongoing, progressing Note: Patient back from procedure and at one meal. AF RVR into 180's for 10 min and then flipped back to ST. Went to OR, 28 teeth extracted. P atient oriented x2 and groggy for rest of shift. Medicated for pain x1. End of shift chart c glennyk complete. Mallory Rodriguez RN p Note - To Job kohler DMD - 12/20/2019 12:05 PM [facility] Service: concrete gun operator Operative Note Pre-operative Diagnosis: Bacterial endocarditis; carious teeth; irregular bony growths Post-operative Diagnosis: Same Procedure(s): Removal of teeth #1, 2, 3, 5, 6, 7, 9, 10, 11, 12, 13, 14, 15, 17, 18, 21, 22, 23, 24, 25, 26, 27, 28, 29, 30, 31, 32-sx Removal of root tip #4-si Alveoloplasty 4+ teeth (UR, UL, LL, LR) Removal of mandibular buccal exostoses (LR, LL) Removal of bilateral mandibular lingual shahab (LR, LL) Removal of midline palatal torus Surgeon: oJb Menjivar DMD Fabric Sourcer(s): OR staff Anesthesia: General Estimated Blood Loss: less than 100 mL Indications: The patient is a 69 y.o. year-old male who was referred to [facility] for evaluation and treatment of carious teeth due to bacterial endocarditis. Clinical and radiographic findings were consistent with the listed diagnosis. The risks, b enefits, complications and alternatives associated with this type of treatment were discusse d with the patient in detail. Informed phone consent was obtained from the patient's leonor mcgeeing the answering all questions. Findings: NSF Complications: None Description of Procedure: The patient was taken to operating room 2 at [facility] and was placed on the operating room table in the supine position. The patient was placed under IV inductio n for general anesthesia and endotracheal intubation. Once the patient was intubated, the tu be was secured. The patient was draped in normal fashion in preparation for maxillofacial garcia rgery. A gauze pack was placed in the posterior oropharynx. Next, 1% lidocaine with 1:100,0 00 units of epinephrine was injected in infiltration and block fashion in order to achieve a dequate operative hemostasis and postoperative local anesthesia. The teeth were evaluated and generalized periodontal disease was present. The remaining te eth were carious and the majority of the teeth had deep decay. Removal of all remaining arnoldo th was indicated. There were large mandibular buccal exostoses and lingual shahab and a large palatal torus that would prevent denture fabrication and placement and removal was indicate d. A full thickness buccal flap was created in the maxilla. Bone surrounding teeth #1, 2, 3, 5, 6,7, 8, 9, 10, 11, 12, 13, 14, 15 was removed. The teeth were removed with elevators and forceps without complications. Root tip #4 was removed with forceps without complications. There was no oroantral communication. Alveoloplasty was performed to prepare the ridge fo r a prosthesis. The sockets were curetted and the site was copiously irrigated. Gelfoam wa s placed. The soft tissue was closed with 3-0 chromic suture. A full thickness flap was cr eated over the maxillary torus and the torus was removed with a handpiece without complicati ons. Surgicel was placed and the soft tissue was closed with 3-0 chromic suture. A full thickness buccal flap was created in the mandible. Bone surrounding teeth #17, 18, 21, 22, 23, 24, 25, 26, 27, 28, 29, 30, 31, 32 was removed. The teeth were removed with ron vators and forceps without complications. The IANs were not visualized and the lingual plat es remained intact. Alveoloplasty was performed to prepare the ridge for a prosthesis. The buccal exostoses were removed without complications. The floor of the mouth and adjacent s oft tissue was protected and the mandibular lingual shahab were removed without complications. The sockets were curetted and the site was copiously irrigated. Gelfoam was placed. The soft tissue was closed with 3-0 chromic suture. The previously placed throat pack was removed. The oropharynx was visualized and suctioned using a Yankauer suction. An orogastric tube was placed and the stomach contents were decom pressed and the OG tube was removed. Gauze ghosts were placed to aid in hemostasis. This c oncluded the procedure Condition: stable Job Menjivar DMD 12/20/2019 lan of Care - Adi Charlton RN - 12/19/2019 9:28 PM PDT Problem: Infection Goal: Infection Symptom Resolution Outcome: Ongoing, progressing Remains afebrile. Has received IV antibiotics for endocarditis. Problem: Malnutrition Goal: Improved Nutritional Intake Outcome: Ongoing, progressing Appetite is improving. Patient is eating 50-100% of meals. Problem: Fall Injury Risk Goal: Absence of Fall and Fall-Related Injury Outcome: Ongoing, progressing Bed alarm on for safety. Call light placed within reach. VSS overnight, pt slept a lot better this shift. Hourly rounding uneventful. Chart check complete. Adi Goode RN lan of Care - Nj Silva RN - 12/19/2019 2:04 PM PDTProblem: Infection Goal: Infection Symptom Resolution Outcome: Ongoing, progressing Note: Pt remains free from new or worsening s/s of infection, VSS, remains afebrile lan of Adi Morris RN - 12/18/2019 11:33 PM PDT Problem: Adult Inpatient Plan of Care Goal: Plan of Care Review Outcome: Ongoing, progressing Plan of care has been discussed with patient. Questions encouraged and answered as appropr iate. Pt verbalized understanding of the plan for possible ARNOLDO and cardiac cath as well as t eeth extraction. Pt verbalized concerns and reassurance provided. Problem: Infection Goal: Infection Symptom Resolution Outcome: Ongoing, progressing Patient has been afebrile, currently receiving IV antibiotics. Problem: Malnutrition Goal: Improved Nutritional Intake Outcome: Ongoing, progressing Patient ate 100% of his dinner this evening. Problem: Fall Injury Risk Goal: Absence of Fall and Fall-Related Injury Outcome: Ongoing, progressing Has been appropriate in calling prior to getting out of bed. Bed alarm is set for safety, bed locked and in lowest position. Call light placed within reach. lan of Nj Gaitan RN - 12/18/2019 4:03 PM PDTProblem: Infection Goal: Infection Symptom Resolution Outcome: Ongoing, progressing Note: VSS, afebrile this shift, continues to receive IV abx Problem: Fall Injury Risk Goal: Absence of Fall and Fall-Related Injury 12/18/2019 1602 by Nj Curtis RN Outcome: Ongoing, progressing Note: Pt remains free from falls this shift, bed and chair alarm utilized, pt calling appro priately 12/18/2019 1601 by Nj Curtis RN Outcome: Ongoing, progressing lan of Kaylynn Taylor RN - 12/18/2019 3:14 PM PDTCare Management Initial Assessment Readmission Risk: HIGH Status Prior to Admission or Illness Arrival From: home([place], [place]) Lives With: spouse Living Arrangements: house Functional Status: indep at baseline Home Accessibility: no concerns Transportation Available: family or friend will provide Able to return to prior living: yes Care Management Concerns Last discharge date: Readmission Within Last 30 Days: no previous admission in last 30 days PCP: Cathi casillas, Dr Trinh? Contact Information Family Contact Information: Name: Nathalie Hamm(spouse); [phone] Phone: spouse additonal contact: Alvaro Newton, daughter, [place] Needs Assessment Current Outpt/Agency/Support Groups: none Community Agency Name: Anticipated Changes Related to Illness: none Concerns to be Addressed: no discharge needs identified Services Anticipated at Discharge: none Equipment Used at Home: none, no home O2 prior to admisiosn Equipment Needed after Discharge: none Pharmacy/Medication Needs: no anticoagulants prior to admission. Uses [facility] Transportation Needs: family or friend will provide Initial Plan Anticipated Discharge Disposition: home Expected DC Date: yes Steps Taken Toward Discharge: will return home Next Steps: currently on IV abx Notes: Electronically signed: Kaylynn Grullon RN 12/18/2019 3:14 PM PDT lan of [place] Annika Ruiz RN - 12/18/2019 12:58 AM PDT Problem: Infection Goal: Infection Symptom Resolution Outcome: Ongoing, progressing Problem: Fall Injury Risk Goal: Absence of Fall and Fall-Related Injury Outcome: Ongoing, progressing lan of [place]ilo Sarika Baumann RN - 12/17/2019 10:01 AM PDTProblem: Infection Goal: Infection Symptom Resolution Outcome: Ongoing, progressing Pt remains intermittently confused, but A&Ox4. COVID negative. ID consult, pt on IV antibio tics. Blood cultures pending. Pt remains A&Ox4, still intermittently confused and forgetful. Pt frequently getting up, fo rgetting to call first. Bed and chair alarm activated. Report given to DOROTHY Mauro. Chart check complete. Sarika Pinedo RN lan of [facility] Bulmaro Spring RN - 12/17/2019 5:38 AM PDTAntibiotics initiated last night per order. Pt is A and O x 4, but is forgetful and impulsive. At 2300 Pt pulled his villa out with balloon inf lated, and had bleeding from the site which tapered to a slow ooze and has mostly stopped. Rashaad pelletier has voided several times since then, starting with mostly blood, but his latest urine was pink. PVR checked with bladder scanner and pt had 28ml. Pt is up in chair this morning with bed alarm in place, and breakfast ordered. 24 hour chart review complete.Electronically sign ed by Bulmaro Johnson RN at 12/17/2019 5:41 AM PDTPlan of Care - Bulmaro Johnson RN - 8:20 PM PDT Problem: Infection Goal: Infection Symptom Resolution Outcome: Ongoing, progressing Repeat Bcs drawn. Pt to start on new abx. CT surgery and ID to follow pt. Monitor for signs /symptoms of sepsis. Hourly rounding.Electronically signed by Bulmaro Johnson RN at 020 8:21 PM PDTdocumented in this encounter Plan of Treatment +--------+---------+ + + + | Date | Type | Specialty | Care Team | Description | +--------+---------+ + + + | 01/07/ | Office | Anticoagulation | Kenroy Greenberg, | | 2019 | Visit | | [facility] [address] [place] [address] | | | | | | [place] | | | | | | [address] | | | | | | | | +--------+---------+ + + + | 01/15/ | Office | Cardiothoracic | Keaton Ernandez, | | | 2019 | Visit | Surgery | [facility] [address] | | | | | | [place] | | | | | | [place] [address] | | | | | | [phone] | | | | | | | | +--------+---------+ + + + | 01/20/ | Office | Cardiology | Valarie, | | | 2019 | Visit | | [facility] [address] | | | | | | [address] | | | | | | [place] | | | | | | [address] | | | | | | | | +--------+---------+ + + + | 01/20/ | Office | Infectious Diseases | Josh Mckeon DO | | | 2019 | Visit | | [address] | | | | | | [place] [address] | | | | | | [phone] | | | | | | | | +--------+---------+ + + + + +------+--------+ + + | Name | Type | Priori | Associated Diagnoses | Date/Time | | | | ty | | | + +------+--------+ + + | Path Hematology | Lab | Add-On | | 12/18/2019 5:54 AM | | Request | | | | PDT | + +------+--------+ + + + +------+--------+ + + | Name | Type | Priori | Associated Diagnoses | Order Schedule | | | | ty | | | + +------+--------+ + + | CBC with Manual | Lab | Routin | Acute bacterial | weekly for 4 | | Differential | | e | endocarditis | Occurrences starting | | | | | | 12/30/2019 until | | | | | | 12/29/2020 | + +------+--------+ + + | Comprehensive | Lab | Routin | Acute bacterial | weekly for 4 | | Metabolic Panel | | e | endocarditis | Occurrences starting | | | | | | 12/30/2019 until | | | | | | 12/29/2020 | + +------+--------+ + + | Sedimentation Rate | Lab | Routin | Acute bacterial | weekly for 4 | | | | e | endocarditis | Occurrences starting | | | | | | 12/30/2019 until | | | | | | 12/29/2020 | + +------+--------+ + + | C-Reactive Protein | Lab | Routin | Acute bacterial | weekly for 4 | | | | e | endocarditis | Occurrences starting | | | | | | 12/30/2019 until | | | | | | 12/29/2020 | + +------+--------+ + + + + +--------+ + + | Name | Type | Priori | Associated Diagnoses | Order Schedule | | | | ty | | | + + +--------+ + + | Amb referral to | Outpatient | Routin | 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 | + +--------+ + + + | LABS - EXTERNAL SCAN | | 01/01/2020 | | Results for this | | | | 12:00 AM | | procedure are in the | | | | PDT | | results section. | + +--------+ + + + | XR CHEST AP PORTABLE | Routin | 12/31/2019 | | Results for this | | | e | 5:53 AM | | procedure are in the | | | | PDT | | results section. | + +--------+ + + + | PROTIME INR | Routin | 12/31/2019 | | Results for this | | | e | 5:36 AM | | procedure are in the | | | | PDT | | results section. | + +--------+ + + + | CBC WITH | Routin | 12/31/2019 | | Results for this | | DIFFERENTIAL | e | 5:36 AM | | procedure are in the | | | | PDT | | results section. | + +--------+ + + + | MAGNESIUM | Routin | 12/31/2019 | | Results for this | | | e | 5:36 AM | | procedure are in the | | | | PDT | | results section. | + +--------+ + + + | BASIC METABOLIC | Routin | 12/31/2019 | | Results for this | | PANEL | e | 5:36 AM | | procedure are in the | | | | PDT | | results section. | + +--------+ + + + | POC GLUCOSE (NON | Routin | 12/30/2019 | | Results for this | | ORD) | e | 8:34 PM | | procedure are in the | | | | PDT | | results section. | + +--------+ + + + | POC GLUCOSE (NON | Routin | 12/30/2019 | | Results for this | | ORD) | e | 4:42 PM | | procedure are in the | | | | PDT | | results section. | + +--------+ + + + | POC GLUCOSE (NON | Routin | 12/30/2019 | | Results for this | | ORD) | e | 7:26 AM | | procedure are in the | | | | PDT | | results section. | + +--------+ + + + | XR CHEST AP PORTABLE | Routin | 12/30/2019 | | Results for this | | | e | 5:43 AM | | procedure are in the | | | | PDT | | results section. | + +--------+ + + + | PROTIME INR | Routin | 12/30/2019 | | Results for this | | | e | 4:50 AM | | procedure are in the | | | | PDT | | results section. | + +--------+ + + + | CBC WITH | Routin | 12/30/2019 | | Results for this | | DIFFERENTIAL | e | 4:50 AM | | procedure are in the | | | | PDT | | results section. | + +--------+ + + + | MAGNESIUM | Routin | 12/30/2019 | | Results for this | | | e | 4:50 AM | | procedure are in the | | | | PDT | | results section. | + +--------+ + + + | BASIC METABOLIC | Routin | 12/30/2019 | | Results for this | | PANEL | e | 4:50 AM | | procedure are in the | | | | PDT | | results section. | + +--------+ + + + | POC GLUCOSE (NON | Routin | 12/29/2019 | | Results for this | | ORD) | e | 8:11 PM | | procedure are in the | | | | PDT | | results section. | + +--------+ + + + | POC GLUCOSE (NON | Routin | 12/29/2019 | | Results for this | | ORD) | e | 4:44 PM | | procedure are in the | | | | PDT | | results section. | + +--------+ + + + | POC GLUCOSE (NON | Routin | 12/29/2019 | | Results for this | | ORD) | e | 11:37 AM | | procedure are in the | | | | PDT | | results section. | + +--------+ + + + | POC GLUCOSE (NON | Routin | 12/29/2019 | | Results for this | | ORD) | e | 8:51 AM | | procedure are in the | | | | PDT | | results section. | + +--------+ + + + | ECG 12 LEAD | Routin | 12/29/2019 | | Results for this | | | e | 8:09 AM | | procedure are in the | | | | PDT | | results section. | + +--------+ + + + | XR CHEST AP PORTABLE | Routin | 12/29/2019 | | Results for this | | | e | 6:14 AM | | procedure are in the | | | | PDT | | results section. | + +--------+ + + + | PROTIME INR | Routin | 12/29/2019 | | Results for this | | | e | 5:36 AM | | procedure are in the | | | | PDT | | results section. | + +--------+ + + + | CBC WITH | Routin | 12/29/2019 | | Results for this | | DIFFERENTIAL | e | 5:36 AM | | procedure are in the | | | | PDT | | results section. | + +--------+ + + + | MAGNESIUM | Routin | 12/29/2019 | | Results for this | | | e | 5:36 AM | | procedure are in the | | | | PDT | | results section. | + +--------+ + + + | BASIC METABOLIC | Routin | 12/29/2019 | | Results for this | | PANEL | e | 5:36 AM | | procedure are in the | | | | PDT | | results section. | + +--------+ + + + | MRI BRAIN WO | Routin | 12/28/2019 | | Results for this | | CONTRAST | e | 10:08 PM | | procedure are in the | | | | PDT | | results section. | + +--------+ + + + | POC GLUCOSE (NON | Routin | 12/28/2019 | | Results for this | | ORD) | e | 9:18 PM | | procedure are in the | | | | PDT | | results section. | + +--------+ + + + | POC GLUCOSE (NON | Routin | 12/28/2019 | | Results for this | | ORD) | e | 4:24 PM | | procedure are in the | | | | PDT | | results section. | + +--------+ + + + | PROTIME INR | Routin | 12/28/2019 | | Results for this | | | e | 11:29 AM | | procedure are in the | | | | PDT | | results section. | + +--------+ + + + | POC GLUCOSE (NON | Routin | 12/28/2019 | | Results for this | | ORD) | e | 11:28 AM | | procedure are in the | | | | PDT | | results section. | + +--------+ + + + | ECG 12 LEAD | Routin | 12/28/2019 | | Results for this | | | e | 10:19 AM | | procedure are in the | | | | PDT | | results section. | + +--------+ + + + | POC GLUCOSE (NON | Routin | 12/28/2019 | | Results for this | | ORD) | e | 8:10 AM | | procedure are in the | | | | PDT | | results section. | + +--------+ + + + | XR CHEST AP PORTABLE | Routin | 12/28/2019 | | Results for this | | | e | 5:54 AM | | procedure are in the | | | | PDT | | results section. | + +--------+ + + + | CBC WITH | Routin | 12/28/2019 | | Results for this | | DIFFERENTIAL | e | 3:39 AM | | procedure are in the | | | | PDT | | results section. | + +--------+ + + + | MAGNESIUM | Routin | 12/28/2019 | | Results for this | | | e | 3:39 AM | | procedure are in the | | | | PDT | | results section. | + +--------+ + + + | BASIC METABOLIC | Routin | 12/28/2019 | | Results for this | | PANEL | e | 3:39 AM | | procedure are in the | | | | PDT | | results section. | + +--------+ + + + | POC GLUCOSE (NON | Routin | 12/27/2019 | | Results for this | | ORD) | e | 9:44 PM | | procedure are in the | | | | PDT | | results section. | + +--------+ + + + | POC GLUCOSE (NON | Routin | 12/27/2019 | | Results for this | | ORD) | e | 5:10 PM | | procedure are in the | | | | PDT | | results section. | + +--------+ + + + | POTASSIUM | Routin | 12/27/2019 | | Results for this | | | e | 12:39 PM | | procedure are in the | | | | PDT | | results section. | + +--------+ + + + | POC GLUCOSE (NON | Routin | 12/27/2019 | | Results for this | | ORD) | e | 12:04 PM | | procedure are in the | | | | PDT | | results section. | + +--------+ + + + | XR CHEST AP PORTABLE | STAT | 12/27/2019 | | Results for this | | | | 9:47 AM | | procedure are in the | | | | PDT | | results section. | + +--------+ + + + | XR CHEST AP PORTABLE | STAT | 12/27/2019 | | Results for this | | | | 9:21 AM | | procedure are in the | | | | PDT | | results section. | + +--------+ + + + | POC GLUCOSE (NON | Routin | 12/27/2019 | | Results for this | | ORD) | e | 9:14 AM | | procedure are in the | | | | PDT | | results section. | + +--------+ + + + | XR CHEST AP PORTABLE | Routin | 12/27/2019 | | Results for this | | | e | 5:32 AM | | procedure are in the | | | | PDT | | results section. | + +--------+ + + + | CBC WITH | Routin | 12/27/2019 | | Results for this | | DIFFERENTIAL | e | 3:58 AM | | procedure are in the | | | | PDT | | results section. | + +--------+ + + + | MAGNESIUM | Routin | 12/27/2019 | | Results for this | | | e | 3:58 AM | | procedure are in the | | | | PDT | | results section. | + +--------+ + + + | BASIC METABOLIC | Routin | 12/27/2019 | | Results for this | | PANEL | e | 3:58 AM | | procedure are in the | | | | PDT | | results section. | + +--------+ + + + | POC GLUCOSE (NON | Routin | 12/26/2019 | | Results for this | | ORD) | e | 8:10 PM | | procedure are in the | | | | PDT | | results section. | + +--------+ + + + | POC GLUCOSE (NON | Routin | 12/26/2019 | | Results for this | | ORD) | e | 5:30 PM | | procedure are in the | | | | PDT | | results section. | + +--------+ + + + | POC GLUCOSE (NON | Routin | 12/26/2019 | | Results for this | | ORD) | e | 1:33 PM | | procedure are in the | | | | PDT | | results section. | + +--------+ + + + | ECHO LIMITED | Routin | 12/26/2019 | | Results for this | | | e | 11:29 AM | | procedure are in the | | | | PDT | | results section. | + +--------+ + + + | POC GLUCOSE (NON | Routin | 12/26/2019 | | Results for this | | ORD) | e | 9:40 AM | | procedure are in the | | | | PDT | | results section. | + +--------+ + + + | ECG 12 LEAD | [place] | 12/26/2019 | | Results for this | | | | 8:00 AM | | procedure are in the | | | | PDT | | results section. | + +--------+ + + + | XR CHEST AP PORTABLE | Routin | 12/26/2019 | | Results for this | | | e | 5:58 AM | | procedure are in the | | | | PDT | | results section. | + +--------+ + + + | POC GLUCOSE (NON | Routin | 12/26/2019 | | Results for this | | ORD) | e | 5:28 AM | | procedure are in the | | | | PDT | | results section. | + +--------+ + + + | CBC WITH | Routin | 12/26/2019 | | Results for this | | DIFFERENTIAL | e | 3:15 AM | | procedure are in the | | | | PDT | | results section. | + +--------+ + + + | MAGNESIUM | Routin | 12/26/2019 | | Results for this | | | e | 3:15 AM | | procedure are in the | | | | PDT | | results section. | + +--------+ + + + | BASIC METABOLIC | Routin | 12/26/2019 | | Results for this | | PANEL | e | 3:15 AM | | procedure are in the | | | | PDT | | results section. | + +--------+ + + + | POC GLUCOSE (NON | Routin | 12/25/2019 | | Results for this | | ORD) | e | 9:10 PM | | procedure are in the | | | | PDT | | results section. | + +--------+ + + + | POC GLUCOSE (NON | Routin | 12/25/2019 | | Results for this | | ORD) | e | 5:06 PM | | procedure are in the | | | | PDT | | results section. | + +--------+ + + + | EEG | Routin | 12/25/2019 | | Results for this | | | e | 3:04 PM | | procedure are in the | | | | PDT | | results section. | + +--------+ + + + | POC GLUCOSE (NON | Routin | 12/25/2019 | | Results for this | | ORD) | e | 2:35 PM | | procedure are in the | | | | PDT | | results section. | + +--------+ + + + | POC GLUCOSE (NON | Routin | 12/25/2019 | | Results for this | | ORD) | e | 12:31 PM | | procedure are in the | | | | PDT | | results section. | + +--------+ + + + | POTASSIUM | STAT | 12/25/2019 | | Results for this | | | | 12:31 PM | | procedure are in the | | | | PDT | | results section. | + +--------+ + + + | POC GLUCOSE (NON | Routin | 12/25/2019 | | Results for this | | ORD) | e | 10:39 AM | | procedure are in the | | | | PDT | | results section. | + +--------+ + + + | POC GLUCOSE (NON | Routin | 12/25/2019 | | Results for this | | ORD) | e | 8:31 AM | | procedure are in the | | | | PDT | | results section. | + +--------+ + + + | POTASSIUM | STAT | 12/25/2019 | | Results for this | | | | 7:49 AM | | procedure are in the | | | | PDT | | results section. | + +--------+ + + + | POC GLUCOSE (NON | Routin | 12/25/2019 | | Results for this | | ORD) | e | 7:35 AM | | procedure are in the | | | | PDT | | results section. | + +--------+ + + + | POC GLUCOSE (NON | Routin | 12/25/2019 | | Results for this | | ORD) | e | 6:05 AM | | procedure are in the | | | | PDT | | results section. | + +--------+ + + + | XR CHEST AP PORTABLE | Routin | 12/25/2019 | | Results for this | | | e | 5:41 AM | | procedure are in the | | | | PDT | | results section. | + +--------+ + + + | POC GLUCOSE (NON | Routin | 12/25/2019 | | Results for this | | ORD) | e | 5:13 AM | | procedure are in the | | | | PDT | | results section. | + +--------+ + + + | CBC WITH | Routin | 12/25/2019 | | Results for this | | DIFFERENTIAL | e | 4:18 AM | | procedure are in the | | | | PDT | | results section. | + +--------+ + + + | MAGNESIUM | Routin | 12/25/2019 | | Results for this | | | e | 4:18 AM | | procedure are in the | | | | PDT | | results section. | + +--------+ + + + | BASIC METABOLIC | Routin | 12/25/2019 | | Results for this | | PANEL | e | 4:18 AM | | procedure are in the | | | | PDT | | results section. | + +--------+ + + + | POC GLUCOSE (NON | Routin | 12/25/2019 | | Results for this | | ORD) | e | 4:09 AM | | procedure are in the | | | | PDT | | results section. | + +--------+ + + + | POC GLUCOSE (NON | Routin | 12/25/2019 | | Results for this | | ORD) | e | 3:07 AM | | procedure are in the | | | | PDT | | results section. | + +--------+ + + + | POC GLUCOSE (NON | Routin | 12/25/2019 | | Results for this | | ORD) | e | 1:56 AM | | procedure are in the | | | | PDT | | results section. | + +--------+ + + + | POTASSIUM | STAT | 12/24/2019 | | Results for this | | | | 11:55 PM | | procedure are in the | | | | PDT | | results section. | + +--------+ + + + | POC GLUCOSE (NON | Routin | 12/24/2019 | | Results for this | | ORD) | e | 11:52 PM | | procedure are in the | | | | PDT | | results section. | + +--------+ + + + | POC GLUCOSE (NON | Routin | 12/24/2019 | | Results for this | | ORD) | e | 9:53 PM | | procedure are in the | | | | PDT | | results section. | + +--------+ + + + | CT HEAD WO CONTRAST | Routin | 12/24/2019 | | Results for this | | | e | 9:26 PM | | procedure are in the | | | | PDT | | results section. | + +--------+ + + + | POC GLUCOSE (NON | Routin | 12/24/2019 | | Results for this | | ORD) | e | 8:56 PM | | procedure are in the | | | | PDT | | results section. | + +--------+ + + + | POTASSIUM | STAT | 12/24/2019 | | Results for this | | | | 7:59 PM | | procedure are in the | | | | PDT | | results section. | + +--------+ + + + | POC GLUCOSE (NON | Routin | 12/24/2019 | | Results for this | | ORD) | e | 7:52 PM | | procedure are in the | | | | PDT | | results section. | + +--------+ + + + | POC GLUCOSE (NON | Routin | 12/24/2019 | | Results for this | | ORD) | e | 6:49 PM | | procedure are in the | | | | PDT | | results section. | + +--------+ + + + | HC BLOOD GASES ANY | Routin | 12/24/2019 | | Results for this | | COMBINATION | e | 5:56 PM | | procedure are in the | | | | PDT | | results section. | + +--------+ + + + | POC GLUCOSE (NON | Routin | 12/24/2019 | | Results for this | | ORD) | e | 5:54 PM | | procedure are in the | | | | PDT | | results section. | + +--------+ + + + | POC GLUCOSE (NON | Routin | 12/24/2019 | | Results for this | | ORD) | e | 5:03 PM | | procedure are in the | | | | PDT | | results section. | + +--------+ + + + | POTASSIUM | STAT | 12/24/2019 | | Results for this | | | | 3:57 PM | | procedure are in the | | | | PDT | | results section. | + +--------+ + + + | POC GLUCOSE (NON | Routin | 12/24/2019 | | Results for this | | ORD) | e | 3:51 PM | | procedure are in the | | | | PDT | | results section. | + +--------+ + + + | ACTIVATED CLOTTING | Routin | 12/24/2019 | | Results for this | | TIME | e | 3:26 PM | | procedure are in the | | | | PDT | | results section. | + +--------+ + + + | HC BLOOD GASES ANY | Routin | 12/24/2019 | | Results for this | | COMBINATION | e | 3:22 PM | | procedure are in the | | | | PDT | | results section. | + +--------+ + + + | POC GLUCOSE (NON | Routin | 12/24/2019 | | Results for this | | ORD) | e | 2:44 PM | | procedure are in the | | | | PDT | | results section. | + +--------+ + + + | XR CHEST AP PORTABLE | STAT | 12/24/2019 | | Results for this | | | | 1:48 PM | | procedure are in the | | | | PDT | | results section. | + +--------+ + + + | HC BLOOD GASES ANY | Routin | 12/24/2019 | | Results for this | | COMBINATION | e | 1:31 PM | | procedure are in the | | | | PDT | | results section. | + +--------+ + + + | POC GLUCOSE (NON | Routin | 12/24/2019 | | Results for this | | ORD) | e | 1:29 PM | | procedure are in the | | | | PDT | | results section. | + +--------+ + + + | PTT | STAT | 12/24/2019 | | Results for this | | | | 1:28 PM | | procedure are in the | | | | PDT | | results section. | + +--------+ + + + | PROTIME INR | STAT | 12/24/2019 | | Results for this | | | | 1:28 PM | | procedure are in the | | | | PDT | | results section. | + +--------+ + + + | FIBRINOGEN | STAT | 12/24/2019 | | Results for this | | | | 1:28 PM | | procedure are in the | | | | PDT | | results section. | + +--------+ + + + | CBC WITH | STAT | 12/24/2019 | | Results for this | | DIFFERENTIAL | | 1:28 PM | | procedure are in the | | | | PDT | | results section. | + +--------+ + + + | MAGNESIUM | STAT | 12/24/2019 | | Results for this | | | | 1:28 PM | | procedure are in the | | | | PDT | | results section. | + +--------+ + + + | BASIC METABOLIC | STAT | 12/24/2019 | | Results for this | | PANEL | | 1:28 PM | | procedure are in the | | | | PDT | | results section. | + +--------+ + + + | ECHO | Routin | 12/24/2019 | | Results for this | | TRANSESOPHAGEAL([facility]) | e | 1:14 PM | | procedure are in the | | - PERIOPERATIVE | | PDT | | results section. | + +--------+ + + + | POC CG 4, ISTAT | Routin | 12/24/2019 | | Results for this | | ARTERIAL | e | 12:18 PM | | procedure are in the | | | | PDT | | results section. | + +--------+ + + + | POC ISTAT, CG8, | Routin | 12/24/2019 | | Results for this | | ARTERIAL | e | 12:14 PM | | procedure are in the | | | | PDT | | results section. | + +--------+ + + + | POC KAROL 4, ISTROYT | Routin | 12/24/2019 | | Results for this | | ARTERIAL | e | 11:44 AM | | procedure are in the | | | | PDT | | results section. | + +--------+ + + + | SHARITA ABAD, | Routin | 12/24/2019 | | Results for this | | ARTERIAL | e | 11:40 AM | | procedure are in the | | | | PDT | | results section. | + +--------+ + + + | POC ISTROYT CG8, | Routin | 12/24/2019 | | Results for this | | ARTERIAL | e | 11:09 AM | | procedure are in the | | | | PDT | | results section. | + +--------+ + + + | POC CG 4, ISTAT | Routin | 12/24/2019 | | Results for this | | ARTERIAL | e | 10:42 AM | | procedure are in the | | | | PDT | | results section. | + +--------+ + + + | POC RANDY CG8, | Routin | 12/24/2019 | | Results for this | | ARTERIAL | e | 10:38 AM | | procedure are in the | | | | PDT | | results section. | + +--------+ + + + | SURGICAL PATHOLOGY | Routin | 12/24/2019 | Endocarditis of | Results for this | | EXAM | e | 10:24 AM | mitral valve | procedure are in the | | | | PDT | | results section. | + +--------+ + + + | HC CULTURE-SURGICAL | Routin | 12/24/2019 | Endocarditis of | Results for this | | TISSUE | e | 10:20 AM | mitral valve | procedure are in the | | | | PDT | | results section. | + +--------+ + + + | SHARITA ABAD, | Routin | 12/24/2019 | | Results for this | | ARTERIAL | e | 10:08 AM | | procedure are in the | | | | PDT | | results section. | + +--------+ + + + | SHARITA ABAD, | Routin | 12/24/2019 | | Results for this | | VENOUS | e | 10:04 AM | | procedure are in the | | | | PDT | | results section. | + +--------+ + + + | SHARITA ABAD, | Routin | 12/24/2019 | | Results for this | | ARTERIAL | e | 9:39 AM | | procedure are in the | | | | PDT | | results section. | + +--------+ + + + | POC ISTAT, CG8, | Routin | 12/24/2019 | | Results for this | | ARTERIAL | e | 9:16 AM | | procedure are in the | | | | PDT | | results section. | + +--------+ + + + | POC CG 4, ISTAT | Routin | 12/24/2019 | | Results for this | | ARTERIAL | e | 8:37 AM | | procedure are in the | | | | PDT | | results section. | + +--------+ + + + | POC ISTAT, CG8, | Routin | 12/24/2019 | | Results for this | | ARTERIAL | e | 8:34 AM | | procedure are in the | | | | PDT | | results section. | + +--------+ + + + | POC GLUCOSE (NON | Routin | 12/24/2019 | | Results for this | | ORD) | e | 7:22 AM | | procedure are in the | | | | PDT | | results section. | + +--------+ + + + | PRODUCT: RBC | [facility] | 12/24/2019 | | Results for this | | | | 6:59 AM | | procedure are in the | | | | PDT | | results section. | + +--------+ + + + | CORONAVIRUS | STAT | 12/24/2019 | | Results for this | | (COVID-19) NAAT | | 6:46 AM | | procedure are in the | | | | PDT | | results section. | + +--------+ + + + | CBC WITH | Routin | 12/24/2019 | | Results for this | | DIFFERENTIAL | e | 4:51 AM | | procedure are in the | | | | PDT | | results section. | + +--------+ + + + | BASIC METABOLIC | Routin | 12/24/2019 | | Results for this | | PANEL | e | 4:51 AM | | procedure are in the | | | | PDT | | results section. | + +--------+ + + + | URINALYSIS WITH | Routin | 12/23/2019 | | Results for this | | MICROSCOPIC WITH | e | 3:42 PM | | procedure are in the | | CULTURE IF INDICATED | | PDT | | results section. | + +--------+ + + + | XR CHEST PA AND | Routin | 12/23/2019 | | Results for this | | LATERAL | e | 9:43 AM | | procedure are in the | | | | PDT | | results section. | + +--------+ + + + | PROTIME INR | Routin | 12/23/2019 | | Results for this | | | e | 8:40 AM | | procedure are in the | | | | PDT | | results section. | + +--------+ + + + | TYPE AND SCREEN | [facility] | 12/23/2019 | | Results for this | | | | 8:40 AM | | procedure are in the | | | | PDT | | results section. | + +--------+ + + + | CBC WITH | Routin | 12/23/2019 | | Results for this | | DIFFERENTIAL | e | 6:14 AM | | procedure are in the | | | | PDT | | results section. | + +--------+ + + + | BASIC METABOLIC | Routin | 12/23/2019 | | Results for this | | PANEL | e | 6:14 AM | | procedure are in the | | | | PDT | | results section. | + +--------+ + + + | XR CHEST AP PORTABLE | STAT | 12/22/2019 | | Results for this | | | | 5:48 PM | | procedure are in the | | | | PDT | | results section. | + +--------+ + + + | CBC WITH | Routin | 12/22/2019 | | Results for this | | DIFFERENTIAL | e | 5:46 AM | | procedure are in the | | | | PDT | | results section. | + +--------+ + + + | BASIC METABOLIC | Routin | 12/22/2019 | | Results for this | | PANEL | e | 5:46 AM | | procedure are in the | | | | PDT | | results section. | + +--------+ + + + | CBC WITH | Routin | 12/21/2019 | | Results for this | | DIFFERENTIAL | e | 5:02 AM | | procedure are in the | | | | PDT | | results section. | + +--------+ + + + | BASIC METABOLIC | Routin | 12/21/2019 | | Results for this | | PANEL | e | 5:02 AM | | procedure are in the | | | | PDT | | results section. | + +--------+ + + + | CT ANGIOGRAM HEAD | Routin | 12/20/2019 | | Results for this | | NECK | e | 2:30 PM | | procedure are in the | | | | PDT | | results section. | + +--------+ + + + | POC GLUCOSE (NON | Routin | 12/20/2019 | | Results for this | | ORD) | e | 12:11 PM | | procedure are in the | | | | PDT | | results section. | + +--------+ + + + | EXTRACTION TEETH | | 12/20/2019 | Acute bacterial | | | | | 8:54 AM | endocarditis | | | | | PDT | | | + +--------+ + + + | ECG 12 LEAD | STAT | 12/20/2019 | | Results for this | | | | 8:04 AM | | procedure are in the | | | | PDT | | results section. | + +--------+ + + + | CBC WITH | Routin | 12/20/2019 | | Results for this | | DIFFERENTIAL | e | 6:30 AM | | procedure are in the | | | | PDT | | results section. | + +--------+ + + + | BASIC METABOLIC | Routin | 12/20/2019 | | Results for this | | PANEL | e | 6:30 AM | | procedure are in the | | | | PDT | | results section. | + +--------+ + + + | CV CARDIAC PROCEDURE | Routin | 12/19/2019 | Acute bacterial | Results for this | | | e | 2:28 PM | endocarditis | procedure are in the | | | | PDT | Endocarditis of | results section. | | | | | mitral valve Severe | | | | | | mitral | | | | | | regurgitation | | + +--------+ + + + | CV CARDIAC PROCEDURE | Routin | 12/19/2019 | Acute bacterial | Results for this | | | e | 2:28 PM | endocarditis | procedure are in the | | | | PDT | Endocarditis of | results section. | | | | | mitral valve Severe | | | | | | mitral | | | | | | regurgitation | | + +--------+ + + + | CV CARDIAC PROCEDURE | Routin | 12/19/2019 | Acute bacterial | Results for this | | | e | 2:28 PM | endocarditis | procedure are in the | | | | PDT | Endocarditis of | results section. | | | | | mitral valve Severe | | | | | | mitral | | | | | | regurgitation | | + +--------+ + + + | ECHO TRANSESOPHAGEAL | [facility] | 12/19/2019 | | Results for this | | ([facility]) | | 1:29 PM | | procedure are in the | | | | PDT | | results section. | + +--------+ + + + | T4, FREE | Routin | 12/19/2019 | | Results for this | | | e | 9:37 AM | | procedure are in the | | | | PDT | | results section. | + +--------+ + + + | REMINGTON BEAUCHAMP | [facility] | 12/19/2019 | | Results for this | | | | 9:37 AM | | procedure are in the | | | | PDT | | results section. | + +--------+ + + + | CBC WITH | Routin | 12/19/2019 | | Results for this | | DIFFERENTIAL | e | 6:26 AM | | procedure are in the | | | | PDT | | results section. | + +--------+ + + + | BASIC METABOLIC | Routin | 12/19/2019 | | Results for this | | PANEL | e | 6:26 AM | | procedure are in the | | | | PDT | | results section. | + +--------+ + + + | MRI BRAIN W WO | Routin | 12/18/2019 | | Results for this | | CONTRAST | e | 7:45 PM | | procedure are in the | | | | PDT | | results section. | + +--------+ + + + | IRON AND IRON | Add-On | 12/18/2019 | | Results for this | | BINDING CAPACITY | | 5:52 PM | | procedure are in the | | | | PDT | | results section. | + +--------+ + + + | HAPTOGLOBIN | Add-On | 12/18/2019 | | Results for this | | | | 5:52 PM | | procedure are in the | | | | PDT | | results section. | + +--------+ + + + | FERRITIN | Add-On | 12/18/2019 | | Results for this | | | | 5:52 PM | | procedure are in the | | | | PDT | | results section. | + +--------+ + + + | HEMOGLOBIN AND | Routin | 12/18/2019 | | Results for this | | HEMATOCRIT | e | 5:51 PM | | procedure are in the | | | | PDT | | results section. | + +--------+ + + + | HC OCCULT BLD FECES | Routin | 12/18/2019 | | Results for this | | 1-3 TESTS | e | 5:30 PM | | procedure are in the | | | | PDT | | results section. | + +--------+ + + + | CT MAXILLOFACIAL WO | Routin | 12/18/2019 | | Results for this | | CONTRAST | e | 2:37 PM | | procedure are in the | | | | PDT | | results section. | + +--------+ + + + | TRANSFUSE 1 UNIT RED | Routin | 12/18/2019 | | | | BLOOD CELLS | e | 1:08 PM | | | | | | PDT | | | + +--------+ + + + | TSH, REFLEX FREE T4 | Add-On | 12/18/2019 | | Results for this | | | | 11:52 AM | | procedure are in the | | | | PDT | | results section. | + +--------+ + + + | PATHOLOGY CONSULT | Routin | 12/18/2019 | | Results for this | | REQUEST | e | 11:52 AM | | procedure are in the | | | | PDT | | results section. | + +--------+ + + + | RETIC COUNT | Add-On | 12/18/2019 | | Results for this | | | | 11:52 AM | | procedure are in the | | | | PDT | | results section. | + +--------+ + + + | LACTATE | Add-On | 12/18/2019 | | Results for this | | DEHYDROGENASE | | 11:52 AM | | procedure are in the | | | | PDT | | results section. | + +--------+ + + + | PRODUCT: RBC | [facility] | 12/18/2019 | | Results for this | | | | 9:50 AM | | procedure are in the | | | | PDT | | results section. | + +--------+ + + + | PRODUCT: RBC | [facility] | 12/18/2019 | | Results for this | | | | 8:12 AM | | procedure are in the | | | | PDT | | results section. | + +--------+ + + + | TYPE AND SCREEN | [facility] | 12/18/2019 | | Results for this | | | | 7:59 AM | | procedure are in the | | | | PDT | | results section. | + +--------+ + + + | PROTIME INR | Routin | 12/18/2019 | | Results for this | | | e | 5:54 AM | | procedure are in the | | | | PDT | | results section. | + +--------+ + + + | CBC NO DIFFERENTIAL | Routin | 12/18/2019 | | Results for this | | | e | 5:54 AM | | procedure are in the | | | | PDT | | results section. | + +--------+ + + + | VANCOMYCIN LEVEL | [facility] | 12/18/2019 | | Results for this | | | | 5:54 AM | | procedure are in the | | | | PDT | | results section. | + +--------+ + + + | BASIC METABOLIC | Routin | 12/18/2019 | | Results for this | | PANEL | e | 5:54 AM | | procedure are in the | | | | PDT | | results section. | + +--------+ + + + | CBC WITH | Routin | 12/17/2019 | | Results for this | | DIFFERENTIAL | e | 4:22 PM | | procedure are in the | | | | PDT | | results section. | + +--------+ + + + | XR CHEST AP PORTABLE | Routin | 12/17/2019 | | Results for this | | | e | 3:58 PM | | procedure are in the | | | | PDT | | results section. | + +--------+ + + + | BASIC METABOLIC | Routin | 12/17/2019 | | Results for this | | PANEL | e | 4:43 AM | | procedure are in the | | | | PDT | | results section. | + +--------+ + + + | CORONAVIRUS | Routin | 12/16/2019 | | Results for this | | (COVID-19) NAAT | e | 11:14 PM | | procedure are in the | | | | PDT | | results section. | + +--------+ + + + | CULTURE, BLOOD | STAT | 12/16/2019 | | Results for this | | | | 7:25 PM | | procedure are in the | | | | PDT | | results section. | + +--------+ + + + | CULTURE, BLOOD | STAT | 12/16/2019 | | Results for this | | | | 7:25 PM | | procedure are in the | | | | PDT | | results section. | + +--------+ + + + documented in this encounter Results LABS - EXTERNAL SCAN (01/01/2020 12:00 AM PDT) + + + | Narrative | Performed At | + + + | Ordered by an | | | unspecified provider. | | + + + LABS - EXTERNAL SCAN (01/01/2020 12:00 AM PDT) + + + | Narrative | Performed At | + + + | Ordered by an | | | unspecified provider. | | + + + XR Chest AP Portable (12/31/2019 5:53 AM PDT) + + | Specimen | + + | | + + + + + | Narrative | Performed At | + + + | CHEST PORTABLE [facility] CLINICAL INFORMATION: Post open | [facility] | | heart surgery. COMPARISON: XR CHEST AP PORTABLE (12/30/2019); XR | | | CHEST AP PORTABLE (12/29/2019); XR CHEST AP PORTABLE (12/28/2019); XR | | | CHEST AP PORTABLE (12/27/2019); FINDINGS/IMPRESSION: 1. Stable | | | positioning of left upper extremity PICC. Intact sternal wires in | | | stable configuration. 2. Symmetric lung expansion. Continued | | | improvement in left lower lobe atelectasis and trace pleural | | | effusion. Left hemidiaphragm now visible. Right lung clear. 3. | | | Cardiomediastinal contours are stable. 4. No pneumothorax. | | | Final Report Signed by: Fernando Raymond Brian Sign Date/Time: | | | 12/31/2019 6:00 AM | | + + + + + | Procedure Note | + + | Juan, [id number] - 12/31/2019 6:04 AM PDT | | CHEST PORTABLE [facility] | | | | CLINICAL INFORMATION: | | Post open heart surgery. | | | | COMPARISON: | | XR CHEST AP PORTABLE (12/30/2019); XR CHEST AP PORTABLE (12/29/2019); XR | | CHEST AP PORTABLE (12/28/2019); XR CHEST AP PORTABLE (12/27/2019); | | | | FINDINGS/IMPRESSION: | | 1. Stable positioning of left upper extremity PICC. Intact sternal | | wires in stable configuration. | | 2. Symmetric lung expansion. Continued improvement in left lower lobe | | atelectasis and trace pleural effusion. Left hemidiaphragm now | | visible. Right lung clear. | | 3. Cardiomediastinal contours are stable. | | 4. No pneumothorax. | | | | | | | | | | | | Final Report Signed by: Fernando Raymond Brian | | Sign Date/Time: 12/31/2019 6:00 AM | + + + +---------+ + + | Performing | Address | City/State/Zipcode | Phone Number | | Organization | | | | + +---------+ + + | [facility] | | | | + +---------+ + + Protime INR (12/31/2019 5:36 AM PDT) + + + + + + | Component | Value | Ref Range | Performed | Pathologist | | | | | At | Signature | + + + + + + | INR | 2.9Comment: REFERENCE | | [facility] | | | | RANGE:0.9 - 1.2 | | LABORATORY | | | | NON-ANTICOAGULATED2.0 | | | | | | - 3.0 ALL OTHER | | | | | | THERAPEUTIC | | | | | | INDICATIONS2.5 - 3.5 | | | | | | MECHANICAL HEART VALVES, | | | | | | RECURRENT OR SYSTEMIC | | | | | | EMBOLISMTesting | | | | | | performed at [facility];[id number] | | | | | | [facility];[place], [place] | | | | | | [address] | | | | + + + + + + + + | Specimen | + + | Blood | + + + + + + + | Performing | Address | City/State/Zipcode | Phone Number | | Organization | | | | + + + + + | [facility] | [address] | [place] [address] | [phone] | + + + + + Magnesium (12/31/2019 5:36 AM PDT) + + + + + + | Component | Value | Ref Range | Performed | Pathologist | | | | | At | Signature | + + + + + + | Magnesium | 1.5 (L)Comment: Testing | 1.7 - 2.4 mg/dL | [facility] | | | | performed at [facility];[id number] | [address]AT[address] | | | | [address];[place] | | | | | | [address] | | | | + + + + + + + + | Specimen | + + | Blood | + + + + + + + | Performing | Address | City/State/Zipcode | Phone Number | | Organization | | | | + + + + + | [facility] | [address] | [place] [address] | [phone] | + + + + + CBC with Differential (12/31/2019 5:36 AM PDT) + + + + + + | Component | Value | Ref Range | Performed | Pathologist | | | | | At | Signature | + + + + + + | WBC | 7.61 | 3.80 - 11.00 | [facility] | | | | | K/uL | LABORATORY | | + + + + + + | Red Blood | 3.36 (L) | 4.20 - 5.70 | [facility] | | | Cells | | M/uL | LABORATORY | | + + + + + + | Hemoglobin | 9.2 (L) | 13.2 - 17.0 | [facility] | | | | | g/dL | LABORATORY | | + + + + + + | Hematocrit | 29.2 (L) | 39.0 - 50.0 % | [facility] | | | | | | LABORATORY | | + + + + + + | MCV | 86.9 | 80.0 - 100.0 fl | [facility] | | | | | | LABORATORY | | + + + + + + | MCH | 27.4 | 27.0 - 34.0 pg | [facility] | | | | | | LABORATORY | | + + + + + + | MCHC | 31.5 (L) | 32.0 - 35.5 | [facility] | | | | | g/dL | LABORATORY | | + + + + + + | RDW-SD | 53.1 (H) | 37 - 53 fl | [facility] | | | | | | LABORATORY | | + + + + + + | Platelet | 324 | 150 - 400 K/uL | [facility] | | | Count | | | LABORATORY | | + + + + + + | MPV | 9.9Comment: NO NORMAL | fl | [facility] | | | | RANGE ESTABLISHED | | LABORATORY | | + + + + + + | Diff Type | AUTOMATED | | [facility] | | | | | | LABORATORY | | + + + + + + | % nRBC | 0.0 | 0 /100WBC | [facility] | | | | | | LABORATORY | | + + + + + + | % | 67.30 | % | [facility] | | | Neutrophils | | | LABORATORY | | + + + + + + | IMMATURE | 0.30 | % | [facility] | | | GRANULOCYTE | | | LABORATORY | | + + + + + + | % | 18.50 | % | [facility] | | | Lymphocytes | | | LABORATORY | | + + + + + + | Monocyte % | 12.20 | % | [facility] | | | | | | LABORATORY | | + + + + + + | Eosinophils | 1.40 | % | [facility] | | | % | | | LABORATORY | | + + + + + + | Basophils % | 0.30 | % | [facility] | | | | | | LABORATORY | | + + + + + + | Neutrophils | 5.12 | 1.90 - 7.40 | [facility] | | | , Absolute | | K/uL | LABORATORY | | + + + + + + | IMMATURE | 0.02Comment: NOTE NEW | 0.00 - 0.07 | [facility] | | | GRANS AB | REFERENCE RANGE | K/uL | LABORATORY | | + + + + + + | Absolute | 1.41 | 1.00 - 3.90 | [facility] | | | Lymphocytes | | [facility] | LABORATORY | | + + + + + + | Absolute | 0.93 (H) | 0.00 - 0.80 | [facility] | | | Monocytes | | K/[facility]L | LABORATORY | | + + + + + + | Eosinophils | 0.11 | 0.00 - 0.50 | [facility] | | | , Absolute | | K/uL | LABORATORY | | + + + + + + | Basophils, | 0.02Comment: Testing | 0.00 - 0.10 | [facility] | | | Absolute | performed at [facility], [address] | K/uL | LABORATORY | | | | [address], | | | | | | [place] [address] | | | | + + + + + + + + | Specimen | + + | Blood | + + + + + + + | Performing | Address | City/State/Zipcode | Phone Number | | Organization | | | | + + + + + | [facility] | [address] | [place] [address] | [phone] | + + + + + Basic Metabolic Panel (12/31/2019 5:36 AM PDT) + + + + + + | Component | Value | Ref Range | Performed | Pathologist | | | | | At | Signature | + + + + + + | Na | 136 | 135 - 145 | [facility] | | | | | mmol/L | LABORATORY | | + + + + + + | K | 4.1 | 3.5 - 4.9 | [facility] | | | | | mmol/L | LABORATORY | | + + + + + + | Cl | 102 | 99 - 109 mmol/L | [facility] | | | | | | LABORATORY | | + + + + + + | CO2 | 27 | 23 - 32 mmol/L | [facility] | | | | | | LABORATORY | | + + + + + + | Anion Gap | 11 | 5 - 20 mmol/L | [facility] | | | | | | LABORATORY | | + + + + + + | Glucose | 101 (H) | 65 - 99 mg/dL | [facility] | | | | | | LABORATORY | | + + + + + + | BUN | 10 | 8 - 25 mg/dL | [facility] | | | | | | LABORATORY | | + + + + + + | Creatinine | 0.86 | 0.70 - 1.30 | [facility] | | | | | mg/dL | LABORATORY | | + + + + + + | BUN/Creatin | 12 | | [facility] | | | ine Ratio | | | LABORATORY | | + + + + + + | Calcium | 8.4 (L) | 8.5 - 10.5 | [facility] | | | | | mg/dL | LABORATORY | | + + + + + + | Estimated | >60Comment: GFR <60: | >60 | [facility] | | | GFR | CHRONIC KIDNEY DISEASE, | mL/min/1.73m2 | LABORATORY | | | | IF FOUND OVER A 3 MONTH | | | | | | PERIOD.GFR <15: KIDNEY | | | | | | FAILURE.FOR | | | | | | AMERICANS, MULTIPLY THE | | | | | | CALCULATED GFR BY | | | | | | 1.210.This eGFR is | | | | | | calculated using the | | | | | | [facility] traceable | | | | | | equation.Testing | | | | | | performed at [facility];[address] | | | | | | [address];[place], [place] | | | | | | [address] | | | | + + + + + + + + | Specimen | + + | Blood | + + + + + + + | Performing | Address | City/State/Zipcode | Phone Number | | Organization | | | | + + + + + | [facility] | [address] | [place] [address] | [phone] | + + + + + POC Glucose (12/30/2019 8:34 PM PDT) + + + + + + | Component | Value | Ref Range | Performed | Pathologist | | | | | At | Signature | + + + + + + | Glucose, | 110 (H)Comment: Testing | 65 - 99 mg/dL | [facility] | | | POC | performed at [facility];[address] | | LABORATORY | | | | [address];[place], [place] | | | | | | [address] | | | | + + + + + + + + | Specimen | + + | | + + + + + + + | Performing | Address | City/State/Zipcode | Phone Number | | Organization | | | | + + + + + | [facility] | [address] | [place] [address] | [phone] | + + + + + POC Glucose (12/30/2019 4:42 PM PDT) + + + + + + | Component | Value | Ref Range | Performed | Pathologist | | | | | At | Signature | + + + + + + | Glucose, | 99Comment: Testing | 65 - 99 mg/dL | [facility] | | | POC | performed at [facility];[address] | | LABORATORY | | | | [address];[place] | | | | | | [address] | | | | + + + + + + + + | Specimen | + + | | + + + + + + + | Performing | Address | City/State/Zipcode | Phone Number | | Organization | | | | + + + + + | [facility] | [address] | [place] [address] | [phone] | + + + + + POC Glucose (12/30/2019 7:26 AM PDT) + + + + + + | Component | Value | Ref Range | Performed | Pathologist | | | | | At | Signature | + + + + + + | Glucose, | 187 (H)Comment: Testing | 65 - 99 mg/dL | [facility] | | | POC | performed at [facility];[address] | | LABORATORY | | | | [address];[place] | | | | | | [address] | | | | + + + + + + + + | Specimen | + + | | + + + + + + + | Performing | Address | City/State/Zipcode | Phone Number | | Organization | | | | + + + + + | [facility] | [address] | [place] [address] | [phone] | + + + + + XR Chest AP Portable (12/30/2019 5:43 AM PDT) + + | Specimen | + + | | + + + + + | Impressions | Performed At | + + + | 1. Stable positioning of the left upper extremity PICC. 2. Slightly | [facility] | | improved left basilar opacity suggesting some combination of | | | atelectasis and small pleural effusion. Decreased right basilar | | | opacity. 3. Cardiomediastinal contours are stable. 4. No | | | pneumothorax. Final Report Signed by: Fernando Le, | | | Rachna Sign Date/Time: 12/30/2019 5:52 AM | | + + + + + + | Narrative | Performed At | + + + | CHEST PORTABLE ONE VIEW CLINICAL INFORMATION: Post open | [facility] | | heart surgery COMPARISON: X-ray yesterday. | | + + + + + | Procedure Note | + + | Juan, [id number] - 12/30/2019 5:56 AM PDT | | CHEST PORTABLE ONE VIEW | | | | CLINICAL INFORMATION: | | Post open heart surgery | | | | COMPARISON: | | X-ray yesterday. | | | | IMPRESSION: | | 1. Stable positioning of the left upper extremity PICC. | | 2. Slightly improved left basilar opacity suggesting some combination | | of atelectasis and small pleural effusion. Decreased right basilar | | opacity. | | 3. Cardiomediastinal contours are stable. | | 4. No pneumothorax. | | | | | | | | | | Final Report Signed by: Fernando Le Paula | | Sign Date/Time: 12/30/2019 5:52 AM | + + + +---------+ + + | Performing | Address | City/State/Zipcode | Phone Number | | Organization | | | | + +---------+ + + | [facility] | | | | + +---------+ + + Protime INR (12/30/2019 4:50 AM PDT) + + + + + + | Component | Value | Ref Range | Performed | Pathologist | | | | | At | Signature | + + + + + + | INR | 1.7Comment: REFERENCE | | [facility] | | | | RANGE:0.9 - 1.2 | | LABORATORY | | | | NON-ANTICOAGULATED2.0 | | | | | | - 3.0 ALL OTHER | | | | | | THERAPEUTIC | | | | | | INDICATIONS2.5 - 3.5 | | | | | | MECHANICAL HEART VALVES, | | | | | | RECURRENT OR SYSTEMIC | | | | | | EMBOLISMTesting | | | | | | performed at [facility] | | | | | | [address];[place], [place] | | | | | | [address] | | | | + + + + + + + + | Specimen | + + | Blood | + + + + + + + | Performing | Address | City/State/Zipcode | Phone Number | | Organization | | | | + + + + + | [facility] | [address] | [place] [address] | [phone] | + + + + + Magnesium (12/30/2019 4:50 AM PDT) + + + + + + | Component | Value | Ref Range | Performed | Pathologist | | | | | At | Signature | + + + + + + | Magnesium | 1.7Comment: Testing | 1.7 - 2.4 mg/dL | [facility] | | | | performed at [facility];[address] | | LABORATORY | | | | [address];[place], [place] | | | | | | [address] | | | | + + + + + + + + | Specimen | + + | Blood | + + + + + + + | Performing | Address | City/State/Zipcode | Phone Number | | Organization | | | | + + + + + | [facility] | [address] | [place] [address] | [phone] | + + + + + CBC with Differential (12/30/2019 4:50 AM PDT) + + + + + + | Component | Value | Ref Range | Performed | Pathologist | | | | | At | Signature | + + + + + + | WBC | 8.39 | 3.80 - 11.00 | [facility] | | | | | K/uL | LABORATORY | | + + + + + + | Red Blood | 3.28 (L) | 4.20 - 5.70 | [facility] | | | Cells | | M/uL | LABORATORY | | + + + + + + | Hemoglobin | 9.1 (L) | 13.2 - 17.0 | [facility] | | | | | g/dL | LABORATORY | | + + + + + + | Hematocrit | 29.4 (L) | 39.0 - 50.0 % | [facility] | | | | | | LABORATORY | | + + + + + + | MCV | 89.6 | 80.0 - 100.0 fl | [facility] | | | | | | LABORATORY | | + + + + + + | MCH | 27.7 | 27.0 - 34.0 pg | [facility] | | | | | | LABORATORY | | + + + + + + | MCHC | 31.0 (L) | 32.0 - 35.5 | [facility] | | | | | g/dL | LABORATORY | | + + + + + + | RDW-SD | 55.9 (H) | 37 - 53 fl | [facility] | | | | | | LABORATORY | | + + + + + + | Platelet | 308 | 150 - 400 K/uL | [facility] | | | Count | | | LABORATORY | | + + + + + + | MPV | 9.5Comment: NO NORMAL | fl | [facility] | | | | RANGE ESTABLISHED | | LABORATORY | | + + + + + + | Diff Type | AUTOMATED | | [facility] | | | | | | LABORATORY | | + + + + + + | % nRBC | 0.0 | 0 /100WBC | [facility] | | | | | | LABORATORY | | + + + + + + | % | 71.90 | % | [facility] | | | Neutrophils | | | LABORATORY | | + + + + + + | IMMATURE | 0.50 | % | [facility] | | | GRANULOCYTE | | | LABORATORY | | + + + + + + | % | 16.60 | % | [facility] | | | Lymphocytes | | | LABORATORY | | + + + + + + | Monocyte % | 10.40 | % | [facility] | | | | | | LABORATORY | | + + + + + + | Eosinophils | 0.40 | % | [facility] | | | % | | | LABORATORY | | + + + + + + | Basophils % | 0.20 | % | [facility] | | | | | | LABORATORY | | + + + + + + | Neutrophils | 6.04 | 1.90 - 7.40 | [facility] | | | , Absolute | | K/uL | LABORATORY | | + + + + + + | IMMATURE | 0.04Comment: NOTE NEW | 0.00 - 0.07 | [facility] | | | GRANS AB | REFERENCE RANGE | K/uL | LABORATORY | | + + + + + + | Absolute | 1.39 | 1.00 - 3.90 | [facility] | | | Lymphocytes | | K/uL | LABORATORY | | + + + + + + | Absolute | 0.87 (H) | 0.00 - 0.80 | [facility] | | | Monocytes | | K/uL | LABORATORY | | + + + + + + | Eosinophils | 0.03 | 0.00 - 0.50 | [facility] | | | , Absolute | | K/uL | LABORATORY | | + + + + + + | Basophils, | 0.02Comment: Testing | 0.00 - 0.10 | [facility] | | | Absolute | performed at [facility];[address] | K[address] | LABORATORY | | | | [address];[place], [place] | | | | | | [address] | | | | + + + + + + + + | Specimen | + + | Blood | + + + + + + + | Performing | Address | City/State/Zipcode | Phone Number | | Organization | | | | + + + + + | [facility] | [address] | [place] [address] | [phone] | + + + + + Basic Metabolic Panel (12/30/2019 4:50 AM PDT) + + + + + + | Component | Value | Ref Range | Performed | Pathologist | | | | | At | Signature | + + + + + + | Na | 137 | 135 - 145 | [facility] | | | | | mmol/L | LABORATORY | | + + + + + + | K | 3.9 | 3.5 - 4.9 | [facility] | | | | | mmol/L | LABORATORY | | + + + + + + | Cl | 102 | 99 - 109 mmol/L | [facility] | | | | | | LABORATORY | | + + + + + + | CO2 | 26 | 23 - 32 mmol/L | [facility] | | | | | | LABORATORY | | + + + + + + | Anion Gap | 13 | 5 - 20 mmol/L | [facility] | | | | | | LABORATORY | | + + + + + + | Glucose | 102 (H) | 65 - 99 mg/dL | [facility] | | | | | | LABORATORY | | + + + + + + | BUN | 11 | 8 - 25 mg/dL | [facility] | | | | | | LABORATORY | | + + + + + + | Creatinine | 0.84 | 0.70 - 1.30 | [facility] | | | | | mg/dL | LABORATORY | | + + + + + + | BUN/Creatin | 13 | | [facility] | | | ine Ratio | | | LABORATORY | | + + + + + + | Calcium | 8.4 (L) | 8.5 - 10.5 | [facility] | | | | | mg/dL | LABORATORY | | + + + + + + | Estimated | >60Comment: GFR <60: | >60 | [facility] | | | GFR | CHRONIC KIDNEY DISEASE, | mL/min/1.73m2 | LABORATORY | | | | IF FOUND OVER A 3 MONTH | | | | | | PERIOD.GFR <15: KIDNEY | | | | | | FAILURE.FOR | | | | | | AMERICANS, MULTIPLY THE | | | | | | CALCULATED GFR BY | | | | | | 1.210.This eGFR is | | | | | | calculated using the | | | | | | [facility] traceable | | | | | | equation.Testing | | | | | | performed at [facility] | | | | | | [facility];[place], [place] | | | | | | [address] | | | | + + + + + + + + | Specimen | + + | Blood | + + + + + + + | Performing | Address | City/State/Zipcode | Phone Number | | Organization | | | | + + + + + | [facility] | [address] | [place] [address] | [phone] | + + + + + POC Glucose (12/29/2019 8:11 PM PDT) + + + + + + | Component | Value | Ref Range | Performed | Pathologist | | | | | At | Signature | + + + + + + | Glucose, | 106 (H)Comment: Testing | 65 - 99 mg/dL | [facility] | | | POC | performed at [facility];[address] | | LABORATORY | | | | [address];[place] | | | | | | [address] | | | | + + + + + + + + | Specimen | + + | | + + + + + + + | Performing | Address | City/State/Zipcode | Phone Number | | Organization | | | | + + + + + | [facility] | [address] | [place] [address] | [phone] | + + + + + POC Glucose (12/29/2019 4:44 PM PDT) + + + + + + | Component | Value | Ref Range | Performed | Pathologist | | | | | At | Signature | + + + + + + | Glucose, | 102 (H)Comment: Testing | 65 - 99 mg/dL | [facility] | | | POC | performed at [facility];[address] | | LABORATORY | | | | [address];[place] | | | | | | [address] | | | | + + + + + + + + | Specimen | + + | | + + + + + + + | Performing | Address | City/State/Zipcode | Phone Number | | Organization | | | | + + + + + | [facility] | [address] | [place] [address] | [phone] | + + + + + POC Glucose (12/29/2019 11:37 AM PDT) + + + + + + | Component | Value | Ref Range | Performed | Pathologist | | | | | At | Signature | + + + + + + | Glucose, | 100 (H)Comment: Testing | 65 - 99 mg/dL | [facility] | | | POC | performed at [facility];[address] | | LABORATORY | | | | [address];[place], [place] | | | | | | [address] | | | | + + + + + + + + | Specimen | + + | | + + + + + + + | Performing | Address | City/State/Zipcode | Phone Number | | Organization | | | | + + + + + | [facility] | [address] | [place] [address] | [phone] | + + + + + POC Glucose (12/29/2019 8:51 AM PDT) + + + + + + | Component | Value | Ref Range | Performed | Pathologist | | | | | At | Signature | + + + + + + | Glucose, | 93Comment: Testing | 65 - 99 mg/dL | [facility] | | | POC | performed at [facility];[address] | | LABORATORY | | | | [address];[place] | | | | | | [address] | | | | + + + + + + + + | Specimen | + + | | + + + + + + + | Performing | Address | City/State/Zipcode | Phone Number | | Organization | | | | + + + + + | [facility] | [address] | [place] [address] | [phone] | + + + + + ECG 12 lead (12/29/2019 8:09 AM PDT) + + + + + + | Component | Value | Ref Range | Performed | Pathologist | | | | | At | Signature | + + + + + + | VENTRICULAR | 63 | BPM | [facility] | | | RATE EKG | | | | | + + + + + + | ATRIAL RATE | 63 | BPM | [facility] | | + + + + + + | P-R | 264 | ms | [facility] | | | INTERVAL | | | | | + + + + + + | QRS | 82 | ms | [facility] | | | DURATION | | | | | + + + + + + | Q-T | 560 | ms | [facility] | | | INTERVAL | | | | | + + + + + + | Q-T | 573 | ms | [facility] | | | INTERVAL | | | | | | (CORRECTED) | | | | | + + + + + + | P WAVE AXIS | -61 | degrees | [facility] | | + + + + + + | QRS AXIS | -33 | degrees | [facility] | | + + + + + + | T AXIS | -159 | degrees | [facility] | | + + + + + + | INTERPRETAT | Unusual P axis, possible | | [facility] | | | ION TEXT | ectopic atrial | | | | | | rhythmLeft axis | | | | | | deviationST & Marked T | | | | | | wave abnormality, | | | | | | consider anterolateral | | | | | | ischemiaProlonged | | | | | | QTAbnormal ECGWhen | | | | | | compared with ECG of | | | | | | 28-DEC-2019 | | | | | | 10:19,Ectopic atrial | | | | | | rhythm has replaced | | | | | | Sinus rhythm Confirmed | | | | | | by CYNTHIA SANDRA MD | | | | | | ([id number]) on 12/29/2019 | | | | | | 1:50:33 PM | | | | + + + + + + + + | Specimen | + + | | + + + + + | Narrative | Performed At | + + + | | | + + + + +---------+ + + | Performing | Address | City/State/Zipcode | Phone Number | | Organization | | | | + +---------+ + + | [facility] | | | | + +---------+ + + XR Chest AP Portable (12/29/2019 6:14 AM PDT) + + | Specimen | + + | | + + + + + | Impressions | Performed At | + + + | Moderate bilateral posterior layering effusions with mild interval | [facility] | | increase. Final Report Signed by: Fernando Dumont, Aki Loo | | | Date/Time: 12/29/2019 6:28 AM | | + + + + + + | Narrative | Performed At | + + + | CHEST PORTABLE ONE VIEW CLINICAL INFORMATION: Post open | [facility] | | heart surgery. COMPARISON: XR CHEST AP PORTABLE (12/28/2019); XR | | | CHEST AP PORTABLE (12/27/2019); XR CHEST AP PORTABLE (12/27/2019); | | | FINDINGS: Intact median sternotomy wires in unchanged alignment. | | | Moderate bilateral posterior layering effusions with mild interval | | | increase. Cardiomediastinal silhouette is unchanged. No | | | pneumothorax. No consolidation. | | + + + + + | Procedure Note | + + | Juan, [id number] - 12/29/2019 6:31 AM PDT | | CHEST PORTABLE ONE VIEW | | | | CLINICAL INFORMATION: | | Post open heart surgery. | | | | COMPARISON: | | XR CHEST AP PORTABLE (12/28/2019); XR CHEST AP PORTABLE (12/27/2019); XR | | CHEST AP PORTABLE (12/27/2019); | | | | FINDINGS: | | Intact median sternotomy wires in unchanged alignment. | | | | Moderate bilateral posterior layering effusions with mild interval | | increase. Cardiomediastinal silhouette is unchanged. No pneumothorax. | | No consolidation. | | | | IMPRESSION: | | Moderate bilateral posterior layering effusions with mild interval | | increase. | | | | | | | | Final Report Signed by: Fernando Dumont David | | Sign Date/Time: 12/29/2019 6:28 AM | + + + +---------+ + + | Performing | Address | City/State/Zipcode | Phone Number | | Organization | | | | + +---------+ + + | [facility] | | | | + +---------+ + + Protime INR (12/29/2019 5:36 AM PDT) + + + + + + | Component | Value | Ref Range | Performed | Pathologist | | | | | At | Signature | + + + + + + | INR | 1.1Comment: REFERENCE | | [facility] | | | | RANGE:0.9 - 1.2 | | LABORATORY | | | | NON-ANTICOAGULATED2.0 | | | | | | - 3.0 ALL OTHER | | | | | | THERAPEUTIC | | | | | | INDICATIONS2.5 - 3.5 | | | | | | MECHANICAL HEART VALVES, | | | | | | RECURRENT OR SYSTEMIC | | | | | | EMBOLISMTesting | | | | | | performed at [facility] | | | | | | [facility];[place], [place] | | | | | | [address] | | | | + + + + + + + + | Specimen | + + | Blood | + + + + + + + | Performing | Address | City/State/Zipcode | Phone Number | | Organization | | | | + + + + + | [facility] | [address] | [place] [address] | [phone] | + + + + + Magnesium (12/29/2019 5:36 AM PDT) + + + + + + | Component | Value | Ref Range | Performed | Pathologist | | | | | At | Signature | + + + + + + | Magnesium | 1.8Comment: Testing | 1.7 - 2.4 mg/dL | [facility] | | | | performed at [facility];[address] | | LABORATORY | | | | [address];[place] | | | | | | [address] | | | | + + + + + + + + | Specimen | + + | Blood | + + + + + + + | Performing | Address | City/State/Zipcode | Phone Number | | Organization | | | | + + + + + | [facility] | [address] | [place] [address] | [phone] | + + + + + CBC with Differential (12/29/2019 5:36 AM PDT) + + + + + + | Component | Value | Ref Range | Performed | Pathologist | | | | | At | Signature | + + + + + + | WBC | 7.35 | 3.80 - 11.00 | [facility] | | | | | K/uL | LABORATORY | | + + + + + + | Red Blood | 2.94 (L) | 4.20 - 5.70 | [facility] | | | Cells | | M/uL | LABORATORY | | + + + + + + | Hemoglobin | 8.3 (L) | 13.2 - 17.0 | [facility] | | | | | g/dL | LABORATORY | | + + + + + + | Hematocrit | 26.4 (L) | 39.0 - 50.0 % | [facility] | | | | | | LABORATORY | | + + + + + + | MCV | 89.8 | 80.0 - 100.0 fl | [facility] | | | | | | LABORATORY | | + + + + + + | MCH | 28.2 | 27.0 - 34.0 pg | [facility] | | | | | | LABORATORY | | + + + + + + | MCHC | 31.4 (L) | 32.0 - 35.5 | [facility] | | | | | g/dL | LABORATORY | | + + + + + + | RDW-SD | 56.1 (H) | 37 - 53 fl | [facility] | | | | | | LABORATORY | | + + + + + + | Platelet | 271 | 150 - 400 K/uL | [facility] | | | Count | | | LABORATORY | | + + + + + + | MPV | 9.8Comment: NO NORMAL | fl | [facility] | | | | RANGE ESTABLISHED | | LABORATORY | | + + + + + + | Diff Type | AUTOMATED | | [facility] | | | | | | LABORATORY | | + + + + + + | % nRBC | 0.0 | 0 /100WBC | [facility] | | | | | | LABORATORY | | + + + + + + | % | 69.70 | % | [facility] | | | Neutrophils | | | LABORATORY | | + + + + + + | IMMATURE | 0.40 | % | [facility] | | | GRANULOCYTE | | | LABORATORY | | + + + + + + | % | 18.10 | % | [facility] | | | Lymphocytes | | | LABORATORY | | + + + + + + | Monocyte % | 10.70 | % | [facility] | | | | | | LABORATORY | | + + + + + + | Eosinophils | 0.70 | % | [facility] | | | % | | | LABORATORY | | + + + + + + | Basophils % | 0.40 | % | [facility] | | | | | | LABORATORY | | + + + + + + | Neutrophils | 5.12 | 1.90 - 7.40 | [facility] | | | , Absolute | | K/uL | LABORATORY | | + + + + + + | IMMATURE | 0.03Comment: NOTE NEW | 0.00 - 0.07 | [facility] | | | GRANS AB | REFERENCE RANGE | K/uL | LABORATORY | | + + + + + + | Absolute | 1.33 | 1.00 - 3.90 | [facility] | | | Lymphocytes | | K/uL | LABORATORY | | + + + + + + | Absolute | 0.79 | 0.00 - 0.80 | [facility] | | | Monocytes | | K/uL | LABORATORY | | + + + + + + | Eosinophils | 0.05 | 0.00 - 0.50 | [facility] | | | , Absolute | | K/uL | LABORATORY | | + + + + + + | Basophils, | 0.03Comment: Testing | 0.00 - 0.10 | [facility] | | | Absolute | performed at [facility];[address] | K/uL | LABORATORY | | | | [facility];[place], [place] | | | | | | [address] | | | | + + + + + + + + | Specimen | + + | Blood | + + + + + + + | Performing | Address | City/State/Zipcode | Phone Number | | Organization | | | | + + + + + | [facility] | [address] | [place] [address] | [phone] | + + + + + Basic Metabolic Panel (12/29/2019 5:36 AM PDT) + + + + + + | Component | Value | Ref Range | Performed | Pathologist | | | | | At | Signature | + + + + + + | Na | 139 | 135 - 145 | [facility] | | | | | mmol/L | LABORATORY | | + + + + + + | K | 4.0 | 3.5 - 4.9 | [facility] | | | | | mmol/L | LABORATORY | | + + + + + + | Cl | 108 | 99 - 109 mmol/L | [facility] | | | | | | LABORATORY | | + + + + + + | CO2 | 25 | 23 - 32 mmol/L | [facility] | | | | | | LABORATORY | | + + + + + + | Anion Gap | 10 | 5 - 20 mmol/L | [facility] | | | | | | LABORATORY | | + + + + + + | Glucose | 95 | 65 - 99 mg/dL | [facility] | | | | | | LABORATORY | | + + + + + + | BUN | 13 | 8 - 25 mg/dL | [facility] | | | | | | LABORATORY | | + + + + + + | Creatinine | 0.81 | 0.70 - 1.30 | [facility] | | | | | mg/dL | LABORATORY | | + + + + + + | BUN/Creatin | 16 | | [facility] | | | ine Ratio | | | LABORATORY | | + + + + + + | Calcium | 8.2 (L) | 8.5 - 10.5 | [facility] | | | | | mg/dL | LABORATORY | | + + + + + + | Estimated | >60Comment: GFR <60: | >60 | [facility] | | | GFR | CHRONIC KIDNEY DISEASE, | mL/min/1.73m2 | LABORATORY | | | | IF FOUND OVER A 3 MONTH | | | | | | PERIOD.GFR <15: KIDNEY | | | | | | FAILURE.FOR | | | | | | AMERICANS, MULTIPLY THE | | | | | | CALCULATED GFR BY | | | | | | 1.210.This eGFR is | | | | | | calculated using the | | | | | | MDRD IDMS traceable | | | | | | equation.Testing | | | | | | performed at [facility];[address] | | | | | | [address];[place], [place] | | | | | | [address] | | | | + + + + + + + + | Specimen | + + | Blood | + + + + + + + | Performing | Address | City/State/Zipcode | Phone Number | | Organization | | | | + + + + + | [facility] | [address] | [place] [address] | [phone] | + + + + + MRI Brain wo Contrast (12/28/2019 10:08 PM PDT) + + | Specimen | + + | | + + + + + | Impressions | Performed At | + + + | 1. Multiple areas of mild diffusion restriction which correlate with | [facility] | | lesions seen on the previous MRI and are consistent with subacute | | | infarcts involving the right parietal and occipital lobes with new | | | probable subacute infarcts in the superior central and right | | | cerebellum 2. Vasogenic edema in the posterior right occipital lobe | | | is unchanged. 3. Gyriform increased susceptibility again noted along | | | both cerebral hemispheres consistent with subarachnoid hemorrhage | | | which is likely subacute or chronic. 4. Multiple parenchymal micro | | | hemorrhages scattered in the cerebral hemispheres and cerebellum. | | | Differential considerations include vasculitis/vasculopathy | | | including amyloid angiopathy, hypertensive microangiopathy, and | | | multiple cavernous malformations. Final Report Signed by: | | | Fernando Mckeon Robert Sign Date/Time: 12/28/2019 10:58 PM | | + + + + + + | Narrative | Performed At | + + + | MRI BRAIN WITHOUT CONTRAST CLINICAL INFORMATION: Seizure. | [facility] | | COMPARISON: CT HEAD WO CONTRAST (12/24/2019); CT ANGIOGRAM HEAD NECK | | | W CONTRAST (12/20/2019); MRI BRAIN W WO CONTRAST (12/18/2019); | | | PROCEDURE: Axial FLAIR, axial T2, axial T1, axial gradient | | | susceptibility, axial DWI. FINDINGS: Brain: There is gyriform | | | increased susceptibility scattered along the sulci of both cerebral | | | hemispheres consistent with subarachnoid hemorrhage which is not | | | FLAIR hyperintense and is not seen on the recent CT, likely subacute | | | or chronic. There are multiple scattered foci of increased | | | susceptibility within the parenchyma of the cerebral hemispheres and | | | cerebellum consistent with chronic micro hemorrhages which are better | | | seen than on the previous MRI but probably unchanged. There are | | | multiple areas of mild diffusion restriction with increased DWI and | | | isointense ADC involving the right parietal and occipital lobes as | | | well as the superior left paracentral central cerebellum and | | | bilateral cerebellum consistent with subacute infarcts. The superior | | | central cerebellar lesion and right cerebellar lesion is new on the | | | FLAIR images when compared with the previous MRI. No pathologic | | | mass effect or midline shift is seen. There are also scattered | | | nonspecific T2/FLAIR hyperintensities in the cerebral white matter | | | which could be due to mild chronic small vessel ischemic disease. | | | There is stable lateral and third ventricular prominence likely | | | related to central brain volume loss. Ventricles and extra-axial | | | fluid spaces: See comments above. Orbits: Normal. Major | | | vascular flow voids: Normal. 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 Paranasal sinuses and mastoid air cells: Normal. | | | | | + + + + + | Procedure Note | + + | Juan, [id number] - 12/28/2019 11:01 PM PDT | | MRI BRAIN WITHOUT CONTRAST | | | | CLINICAL INFORMATION: | | Seizure. | | | | COMPARISON: | | CT HEAD WO CONTRAST (12/24/2019); CT ANGIOGRAM HEAD NECK W CONTRAST | | (12/20/2019); MRI BRAIN W WO CONTRAST (12/18/2019); | | | | PROCEDURE: | | Axial FLAIR, axial T2, axial T1, axial gradient susceptibility, axial | | DWI. | | | | FINDINGS: | | Brain: There is gyriform increased susceptibility scattered along the | | sulci of both cerebral hemispheres consistent with subarachnoid | | hemorrhage which is not FLAIR hyperintense and is not seen on the | | recent CT, likely subacute or chronic. There are multiple scattered | | foci of increased susceptibility within the parenchyma of the cerebral | | hemispheres and cerebellum consistent with chronic micro hemorrhages | | which are better seen than on the previous MRI but probably unchanged. | | | | There are multiple areas of mild diffusion restriction with increased | | DWI and isointense ADC involving the right parietal and occipital lobes | | as well as the superior left paracentral central cerebellum and | | bilateral cerebellum consistent with subacute infarcts. The superior | | central cerebellar lesion and right cerebellar lesion is new on the | | FLAIR images when compared with the previous MRI. | | | | No pathologic mass effect or midline shift is seen. | | | | There are also scattered nonspecific T2/FLAIR hyperintensities in the | | cerebral white matter which could be due to mild chronic small vessel | | ischemic disease. There is stable lateral and third ventricular | | prominence likely related to central brain volume loss. | | | | Ventricles and extra-axial fluid spaces: See comments above. | | | | Orbits: Normal. | | | | Major vascular flow voids: Normal. | | | | Calvarium and extracranial soft tissues: There is a left frontal scalp | | lipoma unchanged since the previous study. | | | | Paranasal sinuses and mastoid air cells: Normal. | | | | IMPRESSION: | | 1. Multiple areas of mild diffusion restriction which correlate with | | lesions seen on the previous MRI and are consistent with subacute | | infarcts involving the right parietal and occipital lobes with new | | probable subacute infarcts in the superior central and right cerebellum | | 2. Vasogenic edema in the posterior right occipital lobe is unchanged. | | 3. Gyriform increased susceptibility again noted along both cerebral | | hemispheres consistent with subarachnoid hemorrhage which is likely | | subacute or chronic. | | 4. Multiple parenchymal micro hemorrhages scattered in the cerebral | | hemispheres and cerebellum. Differential considerations include | | vasculitis/vasculopathy including amyloid angiopathy, hypertensive | | microangiopathy, and multiple cavernous malformations. | | | | | | | | Final Report Signed by: Fernando Mckeon Robert | | Sign Date/Time: 12/28/2019 10:58 PM | + + + +---------+ + + | Performing | Address | City/State/Zipcode | Phone Number | | Organization | | | | + +---------+ + + | [facility] | | | | + +---------+ + + POC Glucose (12/28/2019 9:18 PM PDT) + + + + + + | Component | Value | Ref Range | Performed | Pathologist | | | | | At | Signature | + + + + + + | Glucose, | 94Comment: Testing | 65 - 99 mg/dL | [facility] | | | POC | performed at [facility];[address] | | LABORATORY | | | | [address];[place], [place] | | | | | | [address] | | | | + + + + + + + + | Specimen | + + | | + + + + + + + | Performing | Address | City/State/Zipcode | Phone Number | | Organization | | | | + + + + + | [facility] | [address] | [place] [address] | [phone] | + + + + + POC Glucose (12/28/2019 4:24 PM PDT) + + + + + + | Component | Value | Ref Range | Performed | Pathologist | | | | | At | Signature | + + + + + + | Glucose, | 114 (H)Comment: Testing | 65 - 99 mg/dL | [facility] | | | POC | performed at [facility];[address] | | LABORATORY | | | | [address];[place] | | | | | | [address] | | | | + + + + + + + + | Specimen | + + | | + + + + + + + | Performing | Address | City/State/Zipcode | Phone Number | | Organization | | | | + + + + + | [facility] | [address] | [place] [address] | [phone] | + + + + + Protime INR (12/28/2019 11:29 AM PDT) + + + + + + | Component | Value | Ref Range | Performed | Pathologist | | | | | At | Signature | + + + + + + | INR | 1.1Comment: REFERENCE | | [facility] | | | | RANGE:0.9 - 1.2 | | LABORATORY | | | | NON-ANTICOAGULATED2.0 | | | | | | - 3.0 ALL OTHER | | | | | | THERAPEUTIC | | | | | | INDICATIONS2.5 - 3.5 | | | | | | MECHANICAL HEART VALVES, | | | | | | RECURRENT OR SYSTEMIC | | | | | | EMBOLISMTesting | | | | | | performed at [facility] | | | | | | [facility];[place], [place] | | | | | | [address] | | | | + + + + + + + + | Specimen | + + | Blood | + + + + + + + | Performing | Address | City/State/Zipcode | Phone Number | | Organization | | | | + + + + + | [facility] | [address] | [place] [address] | [phone] | + + + + + POC Glucose (12/28/2019 11:28 AM PDT) + + + + + + | Component | Value | Ref Range | Performed | Pathologist | | | | | At | Signature | + + + + + + | Glucose, | 100 (H)Comment: Testing | 65 - 99 mg/dL | [facility] | | | POC | performed at [facility];[address] | | LABORATORY | | | | [address];[place] | | | | | | [address] | | | | + + + + + + + + | Specimen | + + | | + + + + + + + | Performing | Address | City/State/Zipcode | Phone Number | | Organization | | | | + + + + + | [facility] | [address] | [place] [address] | [phone] | + + + + + ECG 12 lead (12/28/2019 10:19 AM PDT) + + + + + + | Component | Value | Ref Range | Performed | Pathologist | | | | | At | Signature | + + + + + + | VENTRICULAR | 66 | BPM | [facility] | | | RATE EKG | | | | | + + + + + + | ATRIAL RATE | 66 | BPM | [facility] | | + + + + + + | P-R | 322 | ms | [facility] | | | INTERVAL | | | | | + + + + + + | QRS | 80 | ms | [facility] | | | DURATION | | | | | + + + + + + | Q-T | 558 | ms | [facility] | | | INTERVAL | | | | | + + + + + + | Q-T | 584 | ms | [facility] | | | INTERVAL | | | | | | (CORRECTED) | | | | | + + + + + + | QRS AXIS | -16 | degrees | [facility] | | + + + + + + | T AXIS | -167 | degrees | [facility] | | + + + + + + | INTERPRETAT | Sinus rhythm with 1st | | [facility] | | | ION TEXT | degree A-V blockST & | | | | | | Marked T wave | | | | | | abnormality, consider | | | | | | anterolateral | | | | | | ischemiaProlonged | | | | | | QTAbnormal ECGWhen | | | | | | compared with ECG of | | | | | | 26-DEC-2019 08:00,No | | | | | | significant change was | | | | | | foundConfirmed by GREG | | | | | | EARNESTINE THOMAS ([id number]) on | | | | | | 12/28/2019 4:12:49 PM | | | | + + + + + + + + | Specimen | + + | | + + + + + | Narrative | Performed At | + + + | | | + + + + +---------+ + + | Performing | Address | City/State/Zipcode | Phone Number | | Organization | | | | + +---------+ + + | [facility] | | | | + +---------+ + + POC Glucose (12/28/2019 8:10 AM PDT) + + + + + + | Component | Value | Ref Range | Performed | Pathologist | | | | | At | Signature | + + + + + + | Glucose, | 178 (H)Comment: Testing | 65 - 99 mg/dL | [facility] | | | POC | performed at [facility];[address] | | LABORATORY | | | | [address];[place] | | | | | | [address] | | | | + + + + + + + + | Specimen | + + | | + + + + + + + | Performing | Address | City/State/Zipcode | Phone Number | | Organization | | | | + + + + + | [facility] | [address] | [place] [address] | [phone] | + + + + + XR Chest AP Portable (12/28/2019 5:54 AM PDT) + + | Specimen | + + | | + + + + + | Narrative | Performed At | + + + | CHEST PORTABLE ONE VIEW CLINICAL INFORMATION: Post open | [facility] | | heart surgery COMPARISON: XR CHEST AP PORTABLE (12/27/2019); XR | | | CHEST AP PORTABLE (12/27/2019); XR CHEST AP PORTABLE (12/27/2019); XR | | | CHEST AP PORTABLE (12/26/2019); FINDINGS/IMPRESSION: 1. Left upper | | | extremity PICC, with catheter tip at or near the superior caval | | | atrial junction level. Intact sternal wires with stable | | | configuration. Epicardial wires noted. Evidence of cardiac valve | | | surgery. Interval removal of right IJ sheath. 2. Low lung volumes. | | | Confluent opacity left lung base, likely combination of atelectasis | | | and/or consolidation and/or small left pleural effusion, unchanged | | | from previous exam. Probable bilateral perihilar atelectasis and/or | | | pulmonary vascular congestion, stable. Trace right pleural effusion. | | | 3. Cardiomediastinal contours are stable. 4. No pneumothorax. | | | Final Report Signed by: Fernando Raymond Brian Sign Date/Time: | | | 12/28/2019 5:57 AM | | + + + + + | Procedure Note | + + | Juan, [id number] - 12/28/2019 6:01 AM PDT | | CHEST PORTABLE ONE VIEW | | | | CLINICAL INFORMATION: | | Post open heart surgery | | | | COMPARISON: | | XR CHEST AP PORTABLE (12/27/2019); XR CHEST AP PORTABLE (12/27/2019); XR | | CHEST AP PORTABLE (12/27/2019); XR CHEST AP PORTABLE (12/26/2019); | | | | FINDINGS/IMPRESSION: | | 1. Left upper extremity PICC, with catheter tip at or near the superior | | caval atrial junction level. Intact sternal wires with stable | | configuration. Epicardial wires noted. Evidence of cardiac valve | | surgery. Interval removal of right IJ sheath. | | 2. Low lung volumes. Confluent opacity left lung base, likely | | combination of atelectasis and/or consolidation and/or small left | | pleural effusion, unchanged from previous exam. Probable bilateral | | perihilar atelectasis and/or pulmonary vascular congestion, stable. | | Trace right pleural effusion. | | 3. Cardiomediastinal contours are stable. | | 4. No pneumothorax. | | | | | | | | | | | | Final Report Signed by: Fernando Raymond Brian | | Sign Date/Time: 12/28/2019 5:57 AM | + + + +---------+ + + | Performing | Address | City/State/Zipcode | Phone Number | | Organization | | | | + +---------+ + + | [facility] | | | | + +---------+ + + Magnesium (12/28/2019 3:39 AM PDT) + + + + + + | Component | Value | Ref Range | Performed | Pathologist | | | | | At | Signature | + + + + + + | Magnesium | 2.1Comment: Testing | 1.7 - 2.4 mg/dL | [facility] | | | | performed at [facility];[address] | | LABORATORY | | | | [address];[place] | | | | | | [address] | | | | + + + + + + + + | Specimen | + + | Blood | + + + + + + + | Performing | Address | City/State/Zipcode | Phone Number | | Organization | | | | + + + + + | [facility] | [address] | [place] [address] | [phone] | + + + + + CBC with Differential (12/28/2019 3:39 AM PDT) + + + + + + | Component | Value | Ref Range | Performed | Pathologist | | | | | At | Signature | + + + + + + | WBC | 9.94 | 3.80 - 11.00 | [facility] | | | | | K/uL | LABORATORY | | + + + + + + | Red Blood | 3.15 (L) | 4.20 - 5.70 | [facility] | | | Cells | | M/uL | LABORATORY | | + + + + + + | Hemoglobin | 8.7 (L) | 13.2 - 17.0 | [facility] | | | | | g/dL | LABORATORY | | + + + + + + | Hematocrit | 27.8 (L) | 39.0 - 50.0 % | [facility] | | | | | | LABORATORY | | + + + + + + | MCV | 88.3 | 80.0 - 100.0 fl | [facility] | | | | | | LABORATORY | | + + + + + + | MCH | 27.6 | 27.0 - 34.0 pg | [facility] | | | | | | LABORATORY | | + + + + + + | MCHC | 31.3 (L) | 32.0 - 35.5 | [facility] | | | | | g/dL | LABORATORY | | + + + + + + | RDW-SD | 55.3 (H) | 37 - 53 fl | [facility] | | | | | | LABORATORY | | + + + + + + | Platelet | 272 | 150 - 400 K/uL | [facility] | | | Count | | | LABORATORY | | + + + + + + | MPV | 10.3Comment: NO NORMAL | fl | [facility] | | | | RANGE ESTABLISHED | | LABORATORY | | + + + + + + | Diff Type | AUTOMATED | | [facility] | | | | | | LABORATORY | | + + + + + + | % nRBC | 0.0 | 0 /100WBC | [facility] | | | | | | LABORATORY | | + + + + + + | % | 77.30 | % | [facility] | | | Neutrophils | | | LABORATORY | | + + + + + + | IMMATURE | 0.60 | % | [facility] | | | GRANULOCYTE | | | LABORATORY | | + + + + + + | % | 13.50 | % | [facility] | | | Lymphocytes | | | LABORATORY | | + + + + + + | Monocyte % | 8.20 | % | [facility] | | | | | | LABORATORY | | + + + + + + | Eosinophils | 0.20 | % | [facility] | | | % | | | LABORATORY | | + + + + + + | Basophils % | 0.20 | % | [facility] | | | | | | LABORATORY | | + + + + + + | Neutrophils | 7.68 (H) | 1.90 - 7.40 | [facility] | | | , Absolute | | K/uL | LABORATORY | | + + + + + + | IMMATURE | 0.06Comment: NOTE NEW | 0.00 - 0.07 | [facility] | | | GRANS AB | REFERENCE RANGE | K/uL | LABORATORY | | + + + + + + | Absolute | 1.34 | 1.00 - 3.90 | [facility] | | | Lymphocytes | | K/uL | LABORATORY | | + + + + + + | Absolute | 0.82 (H) | 0.00 - 0.80 | [facility] | | | Monocytes | | K/uL | LABORATORY | | + + + + + + | Eosinophils | 0.02 | 0.00 - 0.50 | [facility] | | | , Absolute | | K/uL | LABORATORY | | + + + + + + | Basophils, | 0.02Comment: Testing | 0.00 - 0.10 | [facility] | | | Absolute | performed at [facility];[address] | K/uL | LABORATORY | | | | [facility];[place], [place] | | | | | | [address] | | | | + + + + + + + + | Specimen | + + | Blood | + + + + + + + | Performing | Address | City/State/Zipcode | Phone Number | | Organization | | | | + + + + + | [facility] | [address] | [place] [address] | [phone] | + + + + + Basic Metabolic Panel (12/28/2019 3:39 AM PDT) + + + + + + | Component | Value | Ref Range | Performed | Pathologist | | | | | At | Signature | + + + + + + | Na | 138 | 135 - 145 | [facility] | | | | | mmol/L | LABORATORY | | + + + + + + | K | 4.0 | 3.5 - 4.9 | [facility] | | | | | mmol/L | LABORATORY | | + + + + + + | Cl | 106 | 99 - 109 mmol/L | [facility] | | | | | | LABORATORY | | + + + + + + | CO2 | 26 | 23 - 32 mmol/L | [facility] | | | | | | LABORATORY | | + + + + + + | Anion Gap | 10 | 5 - 20 mmol/L | [facility] | | | | | | LABORATORY | | + + + + + + | Glucose | 99 | 65 - 99 mg/dL | [facility] | | | | | | LABORATORY | | + + + + + + | BUN | 15 | 8 - 25 mg/dL | [facility] | | | | | | LABORATORY | | + + + + + + | Creatinine | 0.79 | 0.70 - 1.30 | [facility] | | | | | mg/dL | LABORATORY | | + + + + + + | BUN/Creatin | 19 | | [facility] | | | ine Ratio | | | LABORATORY | | + + + + + + | Calcium | 8.2 (L) | 8.5 - 10.5 | [facility] | | | | | mg/dL | LABORATORY | | + + + + + + | Estimated | >60Comment: GFR <60: | >60 | [facility] | | | GFR | CHRONIC KIDNEY DISEASE, | mL/min/1.73m2 | LABORATORY | | | | IF FOUND OVER A 3 MONTH | | | | | | PERIOD.GFR <15: KIDNEY | | | | | | FAILURE.FOR | | | | | | AMERICANS, MULTIPLY THE | | | | | | CALCULATED GFR BY | | | | | | 1.210.This eGFR is | | | | | | calculated using the | | | | | | MDRD IDMS traceable | | | | | | equation.Testing | | | | | | performed at [facility] | | | | | | [facility];[place], [place] | | | | | | [address] | | | | + + + + + + + + | Specimen | + + | Blood | + + + + + + + | Performing | Address | City/State/Zipcode | Phone Number | | Organization | | | | + + + + + | [facility] | [address] | [place] [address] | [phone] | + + + + + POC Glucose (12/27/2019 9:44 PM PDT) + + + + + + | Component | Value | Ref Range | Performed | Pathologist | | | | | At | Signature | + + + + + + | Glucose, | 119 (H)Comment: Testing | 65 - 99 mg/dL | [facility] | | | POC | performed at [facility];[address] | | LABORATORY | | | | [address];[place], [place] | | | | | | [address] | | | | + + + + + + + + | Specimen | + + | | + + + + + + + | Performing | Address | City/State/Zipcode | Phone Number | | Organization | | | | + + + + + | [facility] | [address] | [place] [address] | [phone] | + + + + + POC Glucose (12/27/2019 5:10 PM PDT) + + + + + + | Component | Value | Ref Range | Performed | Pathologist | | | | | At | Signature | + + + + + + | Glucose, | 106 (H)Comment: Testing | 65 - 99 mg/dL | [facility] | | | POC | performed at [facility];[address] | | LABORATORY | | | | [address];[place], [place] | | | | | | [address] | | | | + + + + + + + + | Specimen | + + | | + + + + + + + | Performing | Address | City/State/Zipcode | Phone Number | | Organization | | | | + + + + + | [facility] | [address] | [place] [address] | [phone] | + + + + + Potassium (12/27/2019 12:39 PM PDT) + + + + + + | Component | Value | Ref Range | Performed | Pathologist | | | | | At | Signature | + + + + + + | K | 4.4Comment: Testing | 3.5 - 4.9 | [facility] | | | | performed at [facility];[address] | mmol/L | LABORATORY | | | | [address];[place], [place] | | | | | | [address] | | | | + + + + + + + + | Specimen | + + | Blood | + + + + + + + | Performing | Address | City/State/Zipcode | Phone Number | | Organization | | | | + + + + + | [facility] | [address] | [place] [address] | [phone] | + + + + + POC Glucose (12/27/2019 12:04 PM PDT) + + + + + + | Component | Value | Ref Range | Performed | Pathologist | | | | | At | Signature | + + + + + + | Glucose, | 179 (H)Comment: Testing | 65 - 99 mg/dL | [facility] | | | POC | performed at [facility];[address] | | LABORATORY | | | | [address];[place] | | | | | | [address] | | | | + + + + + + + + | Specimen | + + | | + + + + + + + | Performing | Address | City/State/Zipcode | Phone Number | | Organization | | | | + + + + + | [facility] | [address] | [place] [address] | [phone] | + + + + + XR Chest AP Portable (12/27/2019 9:47 AM PDT) + + | Specimen | + + | | + + + + + | Impressions | Performed At | + + + | 1. Interval repositioning of the left arm PICC line 2. Left basilar | [facility] | | subsegmental atelectasis and small left effusion Final | | | Report Signed by: Fernando Collier, Rishi Sign Date/Time: 12/27/2019 | | | 9:56 AM | | + + + + + + | Narrative | Performed At | + + + | CHEST PORTABLE ONE VIEW CLINICAL INFORMATION: Picc line | [facility] | | placement adjustment. COMPARISON: XR CHEST AP PORTABLE | | | (12/27/2019); XR CHEST AP PORTABLE (12/27/2019); XR CHEST AP PORTABLE | | | (12/26/2019); FINDINGS: Been slight interval retraction of the | | | left arm PICC line tip is now in the distal SVC. Vascular sheath | | | entering from the right neck region is unchanged in position. | | | Postoperative changes of prior sternotomy and valvular repair again | | | noted. Cardiac size is within the range of normal for an AP lordotic | | | view of the chest mild pulmonary vascular prominence with a mild | | | interstitial edema pattern. Minimal right effusion and small left | | | effusion. Left retrocardiac density likely representing left | | | basilar atelectasis | | + + + + + | Procedure Note | + + | Juan, [id number] - 12/27/2019 10:00 AM PDT | | CHEST PORTABLE ONE VIEW | | | | CLINICAL INFORMATION: | | Picc line placement adjustment. | | | | COMPARISON: | | XR CHEST AP PORTABLE (12/27/2019); XR CHEST AP PORTABLE (12/27/2019); XR | | CHEST AP PORTABLE (12/26/2019); | | | | FINDINGS: | | Been slight interval retraction of the left arm PICC line tip is now in | | the distal SVC. | | Vascular sheath entering from the right neck region is unchanged in | | position. Postoperative changes of prior sternotomy and valvular | | repair again noted. | | Cardiac size is within the range of normal for an AP lordotic view of | | the chest mild pulmonary vascular prominence with a mild interstitial | | edema pattern. Minimal right effusion and small left effusion. Left | | retrocardiac density likely representing left basilar atelectasis | | | | IMPRESSION: | | 1. Interval repositioning of the left arm PICC line | | 2. Left basilar subsegmental atelectasis and small left effusion | | | | | | | | | | Final Report Signed by: Fernando Collier Dwane | | Sign Date/Time: 12/27/2019 9:56 AM | + + + +---------+ + + | Performing | Address | City/State/Zipcode | Phone Number | | Organization | | | | + +---------+ + + | [facility] | | | | + +---------+ + + XR Chest AP Portable (12/27/2019 9:21 AM PDT) + + | Specimen | + + | | + + + + + | Impressions | Performed At | + + + | 1. Life-support devices and post surgical changes; with interval | [facility] | | placement of a left arm PICC line. 2. Persistent mild CHF pattern | | | with left pleural effusion Final Report Signed by: | | | Fernando Collier, Rishi Sign Date/Time: 12/27/2019 9:29 AM | | + + + + + + | Narrative | Performed At | + + + | CHEST PORTABLE ONE VIEW CLINICAL INFORMATION: Picc line | [facility] | | placement. COMPARISON: XR CHEST AP PORTABLE (12/27/2019); XR CHEST | | | AP PORTABLE (12/26/2019); XR CHEST AP PORTABLE (12/25/2019); | | | FINDINGS: AP portable view of the chest 0913 hours compared to 0447 | | | hours earlier this morning. Again noted is the vascular sheath | | | entering the right neck region, unchanged in position. Interval | | | placement of a left arm PICC line, tip is at the atrial caval | | | junction. Postoperative changes of prior sternotomy and valvular | | | repair. Correlate with surgical history. Cardiac size is within | | | the range of normal. Persistent pulmonary vascular prominence and | | | indistinctness with reticular interstitial pattern. Small left | | | pleural effusion. | | + + + + + | Procedure Note | + + | Juan, [id number] - 12/27/2019 9:33 AM PDT | | CHEST PORTABLE ONE VIEW | | | | CLINICAL INFORMATION: | | Picc line placement. | | | | COMPARISON: | | XR CHEST AP PORTABLE (12/27/2019); XR CHEST AP PORTABLE (12/26/2019); XR | | CHEST AP PORTABLE (12/25/2019); | | | | FINDINGS: | | AP portable view of the chest 0913 hours compared to 0447 hours earlier | | this morning. Again noted is the vascular sheath entering the right | | neck region, unchanged in position. Interval placement of a left arm | | PICC line, tip is at the atrial caval junction. Postoperative changes | | of prior sternotomy and valvular repair. Correlate with surgical | | history. Cardiac size is within the range of normal. Persistent | | pulmonary vascular prominence and indistinctness with reticular | | interstitial pattern. Small left pleural effusion. | | | | IMPRESSION: | | 1. Life-support devices and post surgical changes; with interval | | placement of a left arm PICC line. | | 2. Persistent mild CHF pattern with left pleural effusion | | | | | | | | | | Final Report Signed by: Fernando Collier Dwane | | Sign Date/Time: 12/27/2019 9:29 AM | + + + +---------+ + + | Performing | Address | City/State/Zipcode | Phone Number | | Organization | | | | + +---------+ + + | [facility] | | | | + +---------+ + + POC Glucose (12/27/2019 9:14 AM PDT) + + + + + + | Component | Value | Ref Range | Performed | Pathologist | | | | | At | Signature | + + + + + + | Glucose, | 119 (H)Comment: Testing | 65 - 99 mg/dL | [facility] | | | POC | performed at [facility];[address] | | LABORATORY | | | | [address];[place], [place] | | | | | | [address] | | | | + + + + + + + + | Specimen | + + | | + + + + + + + | Performing | Address | City/State/Zipcode | Phone Number | | Organization | | | | + + + + + | [facility] | [address] | [place] [address] | [phone] | + + + + + XR Chest AP Portable (12/27/2019 5:32 AM PDT) + + | Specimen | + + | | + + + + + | Impressions | Performed At | + + + | 1. The endotracheal tube, NG tube, and left-sided chest tube has | [facility] | | been withdrawn. Right IJ sheath remains in place. 2. Diffusely | | | increased bilateral perihilar and bibasilar interstitial and hazy | | | opacities suggesting pulmonary edema. Suspect small left pleural | | | effusion. 3. Cardiomediastinal contours are stable. 4. No | | | pneumothorax. Final Report Signed by: Fernando Le, | | | Rachna Sign Date/Time: 12/27/2019 6:00 AM | | + + + + + + | Narrative | Performed At | + + + | CHEST PORTABLE ONE VIEW CLINICAL INFORMATION: Post open | [facility] | | heart surgery. COMPARISON: X-ray yesterday. | | + + + + + | Procedure Note | + + | Juan, [id number] - 12/27/2019 6:04 AM PDT | | CHEST PORTABLE ONE VIEW | | | | CLINICAL INFORMATION: | | Post open heart surgery. | | | | COMPARISON: | | X-ray yesterday. | | | | IMPRESSION: | | 1. The endotracheal tube, NG tube, and left-sided chest tube has been | | withdrawn. Right IJ sheath remains in place. | | 2. Diffusely increased bilateral perihilar and bibasilar interstitial | | and hazy opacities suggesting pulmonary edema. Suspect small left | | pleural effusion. | | 3. Cardiomediastinal contours are stable. | | 4. No pneumothorax. | | | | | | | | | | Final Report Signed by: Fernando Le Paula | | Sign Date/Time: 12/27/2019 6:00 AM | + + + +---------+ + + | Performing | Address | City/State/Zipcode | Phone Number | | Organization | | | | + +---------+ + + | [facility] | | | | + +---------+ + + Magnesium (12/27/2019 3:58 AM PDT) + + + + + + | Component | Value | Ref Range | Performed | Pathologist | | | | | At | Signature | + + + + + + | Magnesium | 2.2Comment: Testing | 1.7 - 2.4 mg/dL | [facility] | | | | performed at [facility];[address] | | LABORATORY | | | | [address];[place], [place] | | | | | | [address] | | | | + + + + + + + + | Specimen | + + | Blood | + + + + + + + | Performing | Address | City/State/Zipcode | Phone Number | | Organization | | | | + + + + + | [facility] | [address] | [place] [address] | [phone] | + + + + + CBC with Differential (12/27/2019 3:58 AM PDT) + + + + + + | Component | Value | Ref Range | Performed | Pathologist | | | | | At | Signature | + + + + + + | WBC | 12.04 (H) | 3.80 - 11.00 | [facility] | | | | | K/uL | LABORATORY | | + + + + + + | Red Blood | 2.89 (L) | 4.20 - 5.70 | [facility] | | | Cells | | M/uL | LABORATORY | | + + + + + + | Hemoglobin | 7.9 (L) | 13.2 - 17.0 | [facility] | | | | | g/dL | LABORATORY | | + + + + + + | Hematocrit | 25.3 (L) | 39.0 - 50.0 % | [facility] | | | | | | LABORATORY | | + + + + + + | MCV | 87.5 | 80.0 - 100.0 fl | [facility] | | | | | | LABORATORY | | + + + + + + | MCH | 27.3 | 27.0 - 34.0 pg | [facility] | | | | | | LABORATORY | | + + + + + + | MCHC | 31.2 (L) | 32.0 - 35.5 | [facility] | | | | | g/dL | LABORATORY | | + + + + + + | RDW-SD | 53.5 (H) | 37 - 53 fl | [facility] | | | | | | LABORATORY | | + + + + + + | Platelet | 211 | 150 - 400 K/uL | [facility] | | | Count | | | LABORATORY | | + + + + + + | MPV | 10.7Comment: NO NORMAL | fl | [facility] | | | | RANGE ESTABLISHED | | LABORATORY | | + + + + + + | Diff Type | AUTOMATED | | [facility] | | | | | | LABORATORY | | + + + + + + | % nRBC | 0.0 | 0 /100WBC | [facility] | | | | | | LABORATORY | | + + + + + + | % | 79.70 | % | [facility] | | | Neutrophils | | | LABORATORY | | + + + + + + | IMMATURE | 0.50 | % | [facility] | | | GRANULOCYTE | | | LABORATORY | | + + + + + + | % | 10.40 | % | [facility] | | | Lymphocytes | | | LABORATORY | | + + + + + + | Monocyte % | 9.10 | % | [facility] | | | | | | LABORATORY | | + + + + + + | Eosinophils | 0.10 | % | [facility] | | | % | | | LABORATORY | | + + + + + + | Basophils % | 0.20 | % | [facility] | | | | | | LABORATORY | | + + + + + + | Neutrophils | 9.60 (H) | 1.90 - 7.40 | [facility] | | | , Absolute | | K/uL | LABORATORY | | + + + + + + | IMMATURE | 0.06Comment: NOTE NEW | 0.00 - 0.07 | [facility] | | | GRANS AB | REFERENCE RANGE | K/uL | LABORATORY | | + + + + + + | Absolute | 1.25 | 1.00 - 3.90 | [facility] | | | Lymphocytes | | K/uL | LABORATORY | | + + + + + + | Absolute | 1.10 (H) | 0.00 - 0.80 | [facility] | | | Monocytes | | K/uL | LABORATORY | | + + + + + + | Eosinophils | 0.01 | 0.00 - 0.50 | [facility] | | | , Absolute | | K/uL | LABORATORY | | + + + + + + | Basophils, | 0.02Comment: Testing | 0.00 - 0.10 | [facility] | | | Absolute | performed at [facility];[address] | K/uL | LABORATORY | | | | [address];[place] | | | | | | [address] | | | | + + + + + + + + | Specimen | + + | Blood | + + + + + + + | Performing | Address | City/State/Zipcode | Phone Number | | Organization | | | | + + + + + | [facility] | [address] | [place] [address] | [phone] | + + + + + Basic Metabolic Panel (12/27/2019 3:58 AM PDT) + + + + + + | Component | Value | Ref Range | Performed | Pathologist | | | | | At | Signature | + + + + + + | Na | 137 | 135 - 145 | [facility] | | | | | mmol/L | LABORATORY | | + + + + + + | K | 3.5 | 3.5 - 4.9 | [facility] | | | | | mmol/L | LABORATORY | | + + + + + + | Cl | 105 | 99 - 109 mmol/L | [facility] | | | | | | LABORATORY | | + + + + + + | CO2 | 25 | 23 - 32 mmol/L | [facility] | | | | | | LABORATORY | | + + + + + + | Anion Gap | 11 | 5 - 20 mmol/L | [facility] | | | | | | LABORATORY | | + + + + + + | Glucose | 114 (H) | 65 - 99 mg/dL | [facility] | | | | | | LABORATORY | | + + + + + + | BUN | 14 | 8 - 25 mg/dL | [facility] | | | | | | LABORATORY | | + + + + + + | Creatinine | 0.85 | 0.70 - 1.30 | [facility] | | | | | mg/dL | LABORATORY | | + + + + + + | BUN/Creatin | 16 | | [facility] | | | ine Ratio | | | LABORATORY | | + + + + + + | Calcium | 8.0 (L) | 8.5 - 10.5 | [facility] | | | | | mg/dL | LABORATORY | | + + + + + + | Estimated | >60Comment: GFR <60: | >60 | [facility] | | | GFR | CHRONIC KIDNEY DISEASE, | mL/min/1.73m2 | LABORATORY | | | | IF FOUND OVER A 3 MONTH | | | | | | PERIOD.GFR <15: KIDNEY | | | | | | FAILURE.FOR | | | | | | AMERICANS, MULTIPLY THE | | | | | | CALCULATED GFR BY | | | | | | 1.210.This eGFR is | | | | | | calculated using the | | | | | | MDRD IDMS traceable | | | | | | equation.Testing | | | | | | performed at [facility];[address] | | | | | | [address];[place], [place] | | | | | | [address] | | | | + + + + + + + + | Specimen | + + | Blood | + + + + + + + | Performing | Address | City/State/Zipcode | Phone Number | | Organization | | | | + + + + + | [facility] | [address] [facility] | [place] [address] | [phone] | + + + + + POC Glucose (12/26/2019 8:10 PM PDT) + + + + + + | Component | Value | Ref Range | Performed | Pathologist | | | | | At | Signature | + + + + + + | Glucose, | 138 (H)Comment: Testing | 65 - 99 mg/dL | [facility] | | | POC | performed at [facility];[address] | | LABORATORY | | | | [address];[place], [place] | | | | | | [address] | | | | + + + + + + + + | Specimen | + + | | + + + + + + + | Performing | Address | City/State/Zipcode | Phone Number | | Organization | | | | + + + + + | [facility] | [address] | [place] [address] | [phone] | + + + + + POC Glucose (12/26/2019 5:30 PM PDT) + + + + + + | Component | Value | Ref Range | Performed | Pathologist | | | | | At | Signature | + + + + + + | Glucose, | 121 (H)Comment: Testing | 65 - 99 mg/dL | [facility] | | | POC | performed at [facility];[address] | | LABORATORY | | | | [address];[place] | | | | | | [address] | | | | + + + + + + + + | Specimen | + + | | + + + + + + + | Performing | Address | City/State/Zipcode | Phone Number | | Organization | | | | + + + + + | [facility] | [address] | [place] [address] | [phone] | + + + + + POC Glucose (12/26/2019 1:33 PM PDT) + + + + + + | Component | Value | Ref Range | Performed | Pathologist | | | | | At | Signature | + + + + + + | Glucose, | 121 (H)Comment: Testing | 65 - 99 mg/dL | [facility] | | | POC | performed at [facility];[address] | | LABORATORY | | | | [address];[place], [place] | | | | | | [address] | | | | + + + + + + + + | Specimen | + + | | + + + + + + + | Performing | Address | City/State/Zipcode | Phone Number | | Organization | | | | + + + + + | [facility] | [address] | [place] [address] | [phone] | + + + + + Echo Limited (12/26/2019 11:29 AM PDT) + +--------+ + + + | Component | Value | Ref Range | Performed | Pathologist | | | | | At | Signature | + +--------+ + + + | LVIDd | 4.7 | cm | [facility] | | + +--------+ + + + | FS | 20 | % | [facility] | | + +--------+ + + + | MV mean | 8.05 | mmHg | [facility] | | | gradient | | | | | + +--------+ + + + | MV peak | 20.52 | mmHg | [facility] | | | gradient | | | | | + +--------+ + + + | TR Peak | 25 | mmHg | [facility] | | | Gradient | | | | | + +--------+ + + + | TR Velocity | 248.22 | cm/s | [facility] | | + +--------+ + + + | RV | 2.87 | cm | [facility] | | | Diastolic | | | | | | Basal | | | | | | Diameter | | | | | + +--------+ + + + | MV | 362.71 | msec | [facility] | | | Deceleratio | | | | | | n Time | | | | | + +--------+ + + + | MV E/A | 1.32 | | [facility] | | | Ratio | | | | | + +--------+ + + + | MV Mean | 134.63 | cm/s | [facility] | | | Velocity | | | | | + +--------+ + + + | MV Peak | 134.88 | cm/s | [facility] | | | A-Wave | | | | | + +--------+ + + + | MV Peak | 178.15 | cm/s | [facility] | | | E-Wave | | | | | + +--------+ + + + | Vitals | 64 | | [facility] | | | Heart Rate | | | | | | Rest | | | | | + +--------+ + + + | Vitals BP | 128 | | [facility] | | | Systolic | | | | | + +--------+ + + + | Vitals BP | 63 | | [facility] | | | Diastolic | | | | | + +--------+ + + + | Vitals | 165.0 | | [facility] | | | Height | | | | | + +--------+ + + + | Vitals | 67.60 | | [facility] | | | Weight | | | | | + +--------+ + + + | IVS | 1.12 | cm | [facility] | | | Diastolic | | | | | | Thickness | | | | | | MM | | | | | + +--------+ + + + | LVPW | 1.05 | cm | [facility] | | | Diastolic | | | | | | Thickness | | | | | | MM | | | | | + +--------+ + + + | IVS | 1.29 | cm | [facility] | | | Systolic | | | | | | Thickness | | | | | | MM | | | | | + +--------+ + + + | LV Systolic | 3.77 | cm | [facility] | | | Diameter | | | | | | MM | | | | | + +--------+ + + + | LVPW | 1.28 | cm | [facility] | | | Systolic | | | | | | Thickness | | | | | | MM | | | | | + +--------+ + + + | LVEF-TTE | 40 | % | [facility] | | | TRANSTHORAC | | | | | | IC ECHO | | | | | + +--------+ + + + + + | Specimen | + + | | + + + + + | Narrative | Performed At | + + + | There is | [facility] | | mildly reduced left ventricular systolic function. The left | | | ventricular ejection fraction is 40%. There is abnormal left | | | ventricular septal motion due to prior cardiac surgery. Normal size | | | right ventricle, with normal right ventricular systolic function. 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 Mild to moderate tricuspid regurgitation. There are | | | significant changes compared to the preoperative study, done 12/16/2019 | | | at [facility]. | | |12/16/[address] [facility]. | | | | | + + + + +---------+ + + | Performing | Address | City/State/Zipcode | Phone Number | | Organization | | | | + +---------+ + + | [facility] | | | | + +---------+ + + POC Glucose (12/26/2019 9:40 AM PDT) + + + + + + | Component | Value | Ref Range | Performed | Pathologist | | | | | At | Signature | + + + + + + | Glucose, | 128 (H)Comment: Testing | 65 - 99 mg/dL | [facility] | | | POC | performed at [facility];[address] | | LABORATORY | | | | [address];[place] | | | | | | [address] | | | | + + + + + + + + | Specimen | + + | | + + + + + + + | Performing | Address | City/State/Zipcode | Phone Number | | Organization | | | | + + + + + | [facility] | [address] | [place] [address] | [phone] | + + + + + ECG 12 lead (12/26/2019 8:00 AM PDT) + + + + + + | Component | Value | Ref Range | Performed | Pathologist | | | | | At | Signature | + + + + + + | VENTRICULAR | 57 | BPM | [facility] | | | RATE EKG | | | | | + + + + + + | ATRIAL RATE | 57 | BPM | [facility] | | + + + + + + | P-R | 252 | ms | [facility] | | | INTERVAL | | | | | + + + + + + | QRS | 76 | ms | [facility] | | | DURATION | | | | | + + + + + + | Q-T | 546 | ms | [facility] | | | INTERVAL | | | | | + + + + + + | Q-T | 531 | ms | [facility] | | | INTERVAL | | | | | | (CORRECTED) | | | | | + + + + + + | P WAVE AXIS | 18 | degrees | [facility] | | + + + + + + | QRS AXIS | -19 | degrees | [facility] | | + + + + + + | T AXIS | 111 | degrees | [facility] | | + + + + + + | INTERPRETAT | Sinus bradycardia with | | [facility] | | | ION TEXT | 1st degree A-V blockST & | | | | | | Marked T wave | | | | | | abnormality, consider | | | | | | anterolateral | | | | | | ischemiaProlonged | | | | | | QTAbnormal ECGWhen | | | | | | compared with ECG of | | | | | | 20-DEC-2019 | | | | | | 08:04,Premature atrial | | | | | | complexes are no longer | | | | | | PresentPR interval has | | | | | | increasedVent. rate has | | | | | | decreased BY 56 BPMT | | | | | | wave inversion now | | | | | | evident in Anterolateral | | | | | | leadsConfirmed by GREG | | | | | | EARNESTINE THOMAS ([id number]) on | | | | | | 12/26/2019 3:17:52 PM | | | | + + + + + + + + | Specimen | + + | | + + + + + | Narrative | Performed At | + + + | | | + + + + +---------+ + + | Performing | Address | City/State/Zipcode | Phone Number | | Organization | | | | + +---------+ + + | [facility] | | | | + +---------+ + + XR Chest AP Portable (12/26/2019 5:58 AM PDT) + + | Specimen | + + | | + + + + + | Narrative | Performed At | + + + | CHEST PORTABLE ONE VIEW CLINICAL INFORMATION: Post open | [facility] | | heart surgery. COMPARISON: XR CHEST AP PORTABLE (12/25/2019); XR | | | CHEST AP PORTABLE (12/24/2019); XR CHEST PA AND LATERAL (12/23/2019); | | | FINDINGS/IMPRESSION: 1. Lines and support devices are unchanged in | | | position. 2. Segmental medial left basilar atelectasis/consolidation | | | unchanged. Stable lung volumes. No new pulmonary opacities. 3. | | | Cardiomediastinal contours are stable. 4. No pneumothorax. | | | Final Report Signed by: Fernando Grewal, Reilly Loo Date/Time: | | | 12/26/2019 6:18 AM | | + + + + + | Procedure Note | + + | Juan, [id number] - 12/26/2019 6:22 AM PDT | | CHEST PORTABLE ONE VIEW | | | | CLINICAL INFORMATION: | | Post open heart surgery. | | | | COMPARISON: | | XR CHEST AP PORTABLE (12/25/2019); XR CHEST AP PORTABLE (12/24/2019); XR | | CHEST PA AND LATERAL (12/23/2019); | | | | FINDINGS/IMPRESSION: | | 1. Lines and support devices are unchanged in position. | | 2. Segmental medial left basilar atelectasis/consolidation unchanged. | | Stable lung volumes. No new pulmonary opacities. | | 3. Cardiomediastinal contours are stable. | | 4. No pneumothorax. | | | | | | | | Final Report Signed by: Fernando Grewal, Reilly | | Sign Date/Time: 12/26/2019 6:18 AM | + + + +---------+ + + | Performing | Address | City/State/Zipcode | Phone Number | | Organization | | | | + +---------+ + + | [facility] | | | | + +---------+ + + POC Glucose (12/26/2019 5:28 AM PDT) + + + + + + | Component | Value | Ref Range | Performed | Pathologist | | | | | At | Signature | + + + + + + | Glucose, | 155 (H)Comment: Testing | 65 - 99 mg/dL | [facility] | | | POC | performed at [facility];[address] | | LABORATORY | | | | [address];[place] | | | | | | [address] | | | | + + + + + + + + | Specimen | + + | | + + + + + + + | Performing | Address | City/State/Zipcode | Phone Number | | Organization | | | | + + + + + | [facility] | [address] | [place] [address] | [phone] | + + + + + Magnesium (12/26/2019 3:15 AM PDT) + + + + + + | Component | Value | Ref Range | Performed | Pathologist | | | | | At | Signature | + + + + + + | Magnesium | 2.3Comment: Testing | 1.7 - 2.4 mg/dL | [facility] | | | | performed at [facility];[address] | | LABORATORY | | | | [address];[place], [place] | | | | | | [address] | | | | + + + + + + + + | Specimen | + + | Blood | + + + + + + + | Performing | Address | City/State/Zipcode | Phone Number | | Organization | | | | + + + + + | [facility] | [address] | [place] [address] | [phone] | + + + + + CBC with Differential (12/26/2019 3:15 AM PDT) + + + + + + | Component | Value | Ref Range | Performed | Pathologist | | | | | At | Signature | + + + + + + | WBC | 11.09 (H) | 3.80 - 11.00 | [facility] | | | | | K/uL | LABORATORY | | + + + + + + | Red Blood | 3.03 (L) | 4.20 - 5.70 | [facility] | | | Cells | | M/uL | LABORATORY | | + + + + + + | Hemoglobin | 8.6 (L) | 13.2 - 17.0 | [facility] | | | | | g/dL | LABORATORY | | + + + + + + | Hematocrit | 27.3 (L) | 39.0 - 50.0 % | [facility] | | | | | | LABORATORY | | + + + + + + | MCV | 90.1 | 80.0 - 100.0 fl | [facility] | | | | | | LABORATORY | | + + + + + + | MCH | 28.4 | 27.0 - 34.0 pg | [facility] | | | | | | LABORATORY | | + + + + + + | MCHC | 31.5 (L) | 32.0 - 35.5 | [facility] | | | | | g/dL | LABORATORY | | + + + + + + | RDW-SD | 54.6 (H) | 37 - 53 fl | [facility] | | | | | | LABORATORY | | + + + + + + | Platelet | 159 | 150 - 400 K/uL | [facility] | | | Count | | | LABORATORY | | + + + + + + | MPV | 10.8Comment: NO NORMAL | fl | [facility] | | | | RANGE ESTABLISHED | | LABORATORY | | + + + + + + | Diff Type | AUTOMATED | | [facility] | | | | | | LABORATORY | | + + + + + + | % nRBC | 0.0 | 0 /100WBC | [facility] | | | | | | LABORATORY | | + + + + + + | % | 82.90 | % | [facility] | | | Neutrophils | | | LABORATORY | | + + + + + + | IMMATURE | 0.50 | % | [facility] | | | GRANULOCYTE | | | LABORATORY | | + + + + + + | % | 9.50 | % | [facility] | | | Lymphocytes | | | LABORATORY | | + + + + + + | Monocyte % | 6.90 | % | [facility] | | | | | | LABORATORY | | + + + + + + | Eosinophils | 0.10 | % | [facility] | | | % | | | LABORATORY | | + + + + + + | Basophils % | 0.10 | % | [facility] | | | | | | LABORATORY | | + + + + + + | Neutrophils | 9.20 (H) | 1.90 - 7.40 | [facility] | | | , Absolute | | K/uL | LABORATORY | | + + + + + + | IMMATURE | 0.05Comment: NOTE NEW | 0.00 - 0.07 | [facility] | | | GRANS AB | REFERENCE RANGE | K/uL | LABORATORY | | + + + + + + | Absolute | 1.05 | 1.00 - 3.90 | [facility] | | | Lymphocytes | | K/uL | LABORATORY | | + + + + + + | Absolute | 0.77 | 0.00 - 0.80 | [facility] | | | Monocytes | | K/uL | LABORATORY | | + + + + + + | Eosinophils | 0.01 | 0.00 - 0.50 | [facility] | | | , Absolute | | K/uL | LABORATORY | | + + + + + + | Basophils, | 0.01Comment: Testing | 0.00 - 0.10 | [facility] | | | Absolute | performed at [facility];[address] | K/uL | LABORATORY | | | | [address];[place] | | | | | | [address] | | | | + + + + + + + + | Specimen | + + | Blood | + + + + + + + | Performing | Address | City/State/Zipcode | Phone Number | | Organization | | | | + + + + + | [facility] | [address] | [place] [address] | [phone] | + + + + + Basic Metabolic Panel (12/26/2019 3:15 AM PDT) + + + + + + | Component | Value | Ref Range | Performed | Pathologist | | | | | At | Signature | + + + + + + | Na | 137 | 135 - 145 | [facility] | | | | | mmol/L | LABORATORY | | + + + + + + | K | 4.8 | 3.5 - 4.9 | [facility] | | | | | mmol/L | LABORATORY | | + + + + + + | Cl | 110 (H) | 99 - 109 mmol/L | [facility] | | | | | | LABORATORY | | + + + + + + | CO2 | 21 (L) | 23 - 32 mmol/L | [facility] | | | | | | LABORATORY | | + + + + + + | Anion Gap | 11 | 5 - 20 mmol/L | [facility] | | | | | | LABORATORY | | + + + + + + | Glucose | 177 (H) | 65 - 99 mg/dL | [facility] | | | | | | LABORATORY | | + + + + + + | BUN | 15 | 8 - 25 mg/dL | [facility] | | | | | | LABORATORY | | + + + + + + | Creatinine | 0.89 | 0.70 - 1.30 | [facility] | | | | | mg/dL | LABORATORY | | + + + + + + | BUN/Creatin | 17 | | [facility] | | | ine Ratio | | | LABORATORY | | + + + + + + | Calcium | 7.8 (L) | 8.5 - 10.5 | [facility] | | | | | mg/dL | LABORATORY | | + + + + + + | Estimated | >60Comment: GFR <60: | >60 | [facility] | | | GFR | CHRONIC KIDNEY DISEASE, | mL/min/1.73m2 | LABORATORY | | | | IF FOUND OVER A 3 MONTH | | | | | | PERIOD.GFR <15: KIDNEY | | | | | | FAILURE.FOR | | | | | | AMERICANS, MULTIPLY THE | | | | | | CALCULATED GFR BY | | | | | | 1.210.This eGFR is | | | | | | calculated using the | | | | | | MDRD IDMS traceable | | | | | | equation.Testing | | | | | | performed at [facility] | | | | | | [facility];[place], [place] | | | | | | [id number] | | | | + + + + + + + + | Specimen | + + | Blood | + + + + + + + | Performing | Address | City/State/Zipcode | Phone Number | | Organization | | | | + + + + + | [facility] | [address] | [place] [address] | [phone] | + + + + + POC Glucose (12/25/2019 9:10 PM PDT) + + + + + + | Component | Value | Ref Range | Performed | Pathologist | | | | | At | Signature | + + + + + + | Glucose, | 157 (H)Comment: Testing | 65 - 99 mg/dL | [place] | | | POC | performed at [facility];[address] | | LABORATORY | | | | [address]it [address];[place] | | | | | | [address] | | | | + + + + + + + + | Specimen | + + | | + + + + + + + | Performing | Address | City/State/Zipcode | Phone Number | | Organization | | | | + + + + + | [facility] | [address] | [place] [address] | [phone] | + + + + + POC Glucose (12/25/2019 5:06 PM PDT) + + + + + + | Component | Value | Ref Range | Performed | Pathologist | | | | | At | Signature | + + + + + + | Glucose, | 126 (H)Comment: Testing | 65 - 99 mg/dL | [place] | | | POC | performed at [facility];[address] | | LABORATORY | | | | [facility];[place], [place] | | | | | | [address] | | | | + + + + + + + + | Specimen | + + | | + + + + + + + | Performing | Address | City/State/Zipcode | Phone Number | | Organization | | | | + + + + + | [facility] | [address] | [place] [address] | [phone] | + + + + + EEG (12/25/2019 3:04 PM PDT) + + + | Narrative | Performed At | + + + | Josh Montoya, Neurodiagnostic Tech 12/25/2019 3:04 PM | | | [facility] [address] | | | [place] [address] Patient: Reilly Hamm ID: | | | [id number] : 1950 Age: 69 Gender: male Room #: 46385 | | | Physician: Luis E Malcolm [employer] Operator: Josh Montoya | | | Ref. Physician: Carolin MCGEE Recording Date: | | | 12/25/2019 Duration: 00:20:58 Report Date: 12/25/2019 2:58 PM | | | Medications: insulin, keppra, precedex, dilaudid History: | | | seizure a few hours after mitral valve replacement surgery EEG | | | Description: Background: Occipital rhythm: Present at time | | | Frequency: 5-6 Hz Voltage: Medium Organization: Poor | | | Reactivity to eye opening/closure: No clear reactivity. Other | | | background activity: Generalized irregular theta and delta | | | activity. Drowsiness: Present. Sleep: Light sleep. | | | Activation: Hyperventilation: Not done. Photic Stimulation: | | | Done, No definite physiologic driving. EEG Diagnosis: This EEG is | | | suggestive of generalized nonspecific cerebral dysfunction. No | | | clear ictal or intericatal discharges were seen. Clinical | | | correlation is recommended. | | | | | + + + POC Glucose (12/25/2019 2:35 PM PDT) + + + + + + | Component | Value | Ref Range | Performed | Pathologist | | | | | At | Signature | + + + + + + | Glucose, | 98Comment: Testing | 65 - 99 mg/dL | [facility] | | | POC | performed at [facility];[address] | | LABORATORY | | | | [address];[place] | | | | | | [address] | | | | + + + + + + + + | Specimen | + + | | + + + + + + + | Performing | Address | City/State/Zipcode | Phone Number | | Organization | | | | + + + + + | [facility] | [address] | [place] [address] | [phone] | + + + + + POC Glucose (12/25/2019 12:31 PM PDT) + + + + + + | Component | Value | Ref Range | Performed | Pathologist | | | | | At | Signature | + + + + + + | Glucose, | 105 (H)Comment: Testing | 65 - 99 mg/dL | [facility] | | | POC | performed at [facility];[address] | | LABORATORY | | | | [address];[place], [place] | | | | | | [address] | | | | + + + + + + + + | Specimen | + + | | + + + + + + + | Performing | Address | City/State/Zipcode | Phone Number | | Organization | | | | + + + + + | [facility] | [address] | [place] [address] | [phone] | + + + + + Potassium (12/25/2019 12:31 PM PDT) + + + + + + | Component | Value | Ref Range | Performed | Pathologist | | | | | At | Signature | + + + + + + | K | 3.9Comment: Testing | 3.5 - 4.9 | [facility] | | | | performed at [facility];888 | mmol/L | LABORATORY | | | | [address];[place] | | | | | | [address] | | | | + + + + + + + + | Specimen | + + | Blood | + + + + + + + | Performing | Address | City/State/Zipcode | Phone Number | | Organization | | | | + + + + + | [facility] | [address] | [place] [address] | [phone] | + + + + + POC Glucose (12/25/2019 10:39 AM PDT) + + + + + + | Component | Value | Ref Range | Performed | Pathologist | | | | | At | Signature | + + + + + + | Glucose, | 104 (H)Comment: Testing | 65 - 99 mg/dL | [facility] | | | POC | performed at [facility];[address] | | LABORATORY | | | | [address];[place] | | | | | | [address] | | | | + + + + + + + + | Specimen | + + | | + + + + + + + | Performing | Address | City/State/Zipcode | Phone Number | | Organization | | | | + + + + + | [facility] | [address] | [place] [address] | [phone] | + + + + + POC Glucose (12/25/2019 8:31 AM PDT) + + + + + + | Component | Value | Ref Range | Performed | Pathologist | | | | | At | Signature | + + + + + + | Glucose, | 106 (H)Comment: Testing | 65 - 99 mg/dL | [facility] | | | POC | performed at [facility];[address] | | LABORATORY | | | | [address];[place] | | | | | | [address] | | | | + + + + + + + + | Specimen | + + | | + + + + + + + | Performing | Address | City/State/Zipcode | Phone Number | | Organization | | | | + + + + + | [facility] | [address] | [place] [address] | [phone] | + + + + + Potassium (12/25/2019 7:49 AM PDT) + + + + + + | Component | Value | Ref Range | Performed | Pathologist | | | | | At | Signature | + + + + + + | K | 4.0Comment: Testing | 3.5 - 4.9 | [facility] | | | | performed at [facility];[address] | mmol/L | LABORATORY | | | | [address];[place] | | | | | | [address] | | | | + + + + + + + + | Specimen | + + | Blood | + + + + + + + | Performing | Address | City/State/Zipcode | Phone Number | | Organization | | | | + + + + + | [facility] | [address] | [place] [address] | [phone] | + + + + + POC Glucose (12/25/2019 7:35 AM PDT) + + + + + + | Component | Value | Ref Range | Performed | Pathologist | | | | | At | Signature | + + + + + + | Glucose, | 105 (H)Comment: Testing | 65 - 99 mg/dL | [facility] | | | POC | performed at [facility];[address] | | LABORATORY | | | | [address];[place], [place] | | | | | | [address] | | | | + + + + + + + + | Specimen | + + | | + + + + + + + | Performing | Address | City/State/Zipcode | Phone Number | | Organization | | | | + + + + + | [facility] | [address] | [place] [address] | [phone] | + + + + + POC Glucose (12/25/2019 6:05 AM PDT) + + + + + + | Component | Value | Ref Range | Performed | Pathologist | | | | | At | Signature | + + + + + + | Glucose, | 103 (H)Comment: Testing | 65 - 99 mg/dL | [facility] | | | POC | performed at [facility];[address] | | LABORATORY | | | | [address];[place], [place] | | | | | | [address] | | | | + + + + + + + + | Specimen | + + | | + + + + + + + | Performing | Address | City/State/Zipcode | Phone Number | | Organization | | | | + + + + + | [facility] | [address] | [place] [address] | [phone] | + + + + + XR Chest AP Portable (12/25/2019 5:41 AM PDT) + + | Specimen | + + | | + + + + + | Narrative | Performed At | + + + | CHEST PORTABLE ONE VIEW CLINICAL INFORMATION: Post open | [facility] | | heart surgery. COMPARISON: XR CHEST AP PORTABLE (12/24/2019); XR | | | CHEST PA AND LATERAL (12/23/2019); XR CHEST AP PORTABLE (12/22/2019); | | | FINDINGS/IMPRESSION: 1. ET tube 4 cm from dany. Right IJ she | | | stable. NG tube in the stomach. Left chest tube in place. | | | Mediastinal drain in place. 2. Increased medial left basilar | | | atelectasis. Decreased medial right basilar atelectasis. 3. | | | Cardiomediastinal contours are stable. 4. No pneumothorax. | | | Final Report Signed by: Fernando Grewal Richard Sign Date/Time: | | | 12/25/2019 6:09 AM | | + + + + + | Procedure Note | + + | Juan, [id number] - 12/25/2019 6:12 AM PDT | | CHEST PORTABLE ONE VIEW | | | | CLINICAL INFORMATION: | | Post open heart surgery. | | | | COMPARISON: | | XR CHEST AP PORTABLE (12/24/2019); XR CHEST PA AND LATERAL (12/23/2019); | | XR CHEST AP PORTABLE (12/22/2019); | | | | FINDINGS/IMPRESSION: | | 1. ET tube 4 cm from dany. Right IJ she stable. NG tube in the | | stomach. Left chest tube in place. Mediastinal drain in place. | | 2. Increased medial left basilar atelectasis. Decreased medial right | | basilar atelectasis. | | 3. Cardiomediastinal contours are stable. | | 4. No pneumothorax. | | | | | | | | Final Report Signed by: Fernando Grewal Richard | | Sign Date/Time: 12/25/2019 6:09 AM | + + + +---------+ + + | Performing | Address | City/State/Zipcode | Phone Number | | Organization | | | | + +---------+ + + | [facility] | | | | + +---------+ + + POC Glucose (12/25/2019 5:13 AM PDT) + + + + + + | Component | Value | Ref Range | Performed | Pathologist | | | | | At | Signature | + + + + + + | Glucose, | 95Comment: Testing | 65 - 99 mg/dL | [facility] | | | POC | performed at [facility];[address] | | LABORATORY | | | | [address];[place] | | | | | | [address] | | | | + + + + + + + + | Specimen | + + | | + + + + + + + | Performing | Address | City/State/Zipcode | Phone Number | | Organization | | | | + + + + + | [facility] | [address] | [place] [address] | [phone] | + + + + + Magnesium (12/25/2019 4:18 AM PDT) + + + + + + | Component | Value | Ref Range | Performed | Pathologist | | | | | At | Signature | + + + + + + | Magnesium | 2.6 (H)Comment: Testing | 1.7 - 2.4 mg/dL | [facility] | | | | performed at [facility];[address] | | LABORATORY | | | | [address];[place] | | | | | | [address] | | | | + + + + + + + + | Specimen | + + | Blood | + + + + + + + | Performing | Address | City/State/Zipcode | Phone Number | | Organization | | | | + + + + + | [facility] | [address] | [place] [address] | [phone] | + + + + + CBC with Differential (12/25/2019 4:18 AM PDT) + + + + + + | Component | Value | Ref Range | Performed | Pathologist | | | | | At | Signature | + + + + + + | WBC | 13.20 (H) | 3.80 - 11.00 | [facility] | | | | | K/uL | LABORATORY | | + + + + + + | Red Blood | 2.93 (L) | 4.20 - 5.70 | [facility] | | | Cells | | M/uL | LABORATORY | | + + + + + + | Hemoglobin | 8.5 (L) | 13.2 - 17.0 | [facility] | | | | | g/dL | LABORATORY | | + + + + + + | Hematocrit | 26.3 (L) | 39.0 - 50.0 % | [facility] | | | | | | LABORATORY | | + + + + + + | MCV | 89.8 | 80.0 - 100.0 fl | [facility] | | | | | | LABORATORY | | + + + + + + | MCH | 29.0 | 27.0 - 34.0 pg | [facility] | | | | | | LABORATORY | | + + + + + + | MCHC | 32.3 | 32.0 - 35.5 | [facility] | | | | | g/dL | LABORATORY | | + + + + + + | RDW-SD | 53.7 (H) | 37 - 53 fl | [facility] | | | | | | LABORATORY | | + + + + + + | Platelet | 145 (L) | 150 - 400 K/uL | [facility] | | | Count | | | LABORATORY | | + + + + + + | MPV | 10.6Comment: NO NORMAL | fl | [facility] | | | | RANGE ESTABLISHED | | LABORATORY | | + + + + + + | Diff Type | AUTOMATED | | [facility] | | | | | | LABORATORY | | + + + + + + | % nRBC | 0.0 | 0 /100WBC | [facility] | | | | | | LABORATORY | | + + + + + + | % | 82.60 | % | [facility] | | | Neutrophils | | | LABORATORY | | + + + + + + | IMMATURE | 0.50 | % | [facility] | | | GRANULOCYTE | | | LABORATORY | | + + + + + + | % | 10.20 | % | [facility] | | | Lymphocytes | | | LABORATORY | | + + + + + + | Monocyte % | 6.40 | % | [facility] | | | | | | LABORATORY | | + + + + + + | Eosinophils | 0.10 | % | [facility] | | | % | | | LABORATORY | | + + + + + + | Basophils % | 0.20 | % | [facility] | | | | | | LABORATORY | | + + + + + + | Neutrophils | 10.91 (H) | 1.90 - 7.40 | [facility] | | | , Absolute | | K/uL | LABORATORY | | + + + + + + | IMMATURE | 0.07Comment: NOTE NEW | 0.00 - 0.07 | [facility] | | | GRANS AB | REFERENCE RANGE | K/uL | LABORATORY | | + + + + + + | Absolute | 1.35 | 1.00 - 3.90 | [facility] | | | Lymphocytes | | K/uL | LABORATORY | | + + + + + + | Absolute | 0.84 (H) | 0.00 - 0.80 | [facility] | | | Monocytes | | K/uL | LABORATORY | | + + + + + + | Eosinophils | 0.01 | 0.00 - 0.50 | [facility] | | | , Absolute | | K/uL | LABORATORY | | + + + + + + | Basophils, | 0.02Comment: Testing | 0.00 - 0.10 | [facility] | | | Absolute | performed at [facility];[address] | K/uL | LABORATORY | | | | [address];[place] | | | | | | [address] | | | | + + + + + + + + | Specimen | + + | Blood | + + + + + + + | Performing | Address | City/State/Zipcode | Phone Number | | Organization | | | | + + + + + | [facility] | [address] | [place] [address] | [phone] | + + + + + Basic Metabolic Panel (12/25/2019 4:18 AM PDT) + + + + + + | Component | Value | Ref Range | Performed | Pathologist | | | | | At | Signature | + + + + + + | Na | 140 | 135 - 145 | [facility] | | | | | mmol/L | LABORATORY | | + + + + + + | K | 4.0 | 3.5 - 4.9 | [facility] | | | | | mmol/L | LABORATORY | | + + + + + + | Cl | 110 (H) | 99 - 109 mmol/L | [facility] | | | | | | LABORATORY | | + + + + + + | CO2 | 23 | 23 - 32 mmol/L | [facility] | | | | | | LABORATORY | | + + + + + + | Anion Gap | 11 | 5 - 20 mmol/L | [facility] | | | | | | LABORATORY | | + + + + + + | Glucose | 98 | 65 - 99 mg/dL | [facility] | | | | | | LABORATORY | | + + + + + + | BUN | 14 | 8 - 25 mg/dL | [facility] | | | | | | LABORATORY | | + + + + + + | Creatinine | 0.90 | 0.70 - 1.30 | [facility] | | | | | mg/dL | LABORATORY | | + + + + + + | BUN/Creatin | 16 | | [facility] | | | ine Ratio | | | LABORATORY | | + + + + + + | Calcium | 7.4 (L) | 8.5 - 10.5 | [facility] | | | | | mg/dL | LABORATORY | | + + + + + + | Estimated | >60Comment: GFR <60: | >60 | [facility] | | | GFR | CHRONIC KIDNEY DISEASE, | mL/min/1.73m2 | LABORATORY | | | | IF FOUND OVER A 3 MONTH | | | | | | PERIOD.GFR <15: KIDNEY | | | | | | FAILURE.FOR | | | | | | AMERICANS, MULTIPLY THE | | | | | | CALCULATED GFR BY | | | | | | 1.210.This eGFR is | | | | | | calculated using the | | | | | | MDRD IDWA traceable | | | | | | equation.Testing | | | | | | performed at [facility];[address] | | | | | | [facility];[place], [place] | | | | | | [address] | | | | + + + + + + + + | Specimen | + + | Blood | + + + + + + + | Performing | Address | City/State/Zipcode | Phone Number | | Organization | | | | + + + + + | [facility] | [address] [facility] | [place] [address] | [phone] | + + + + + POC Glucose (12/25/2019 4:09 AM PDT) + + + + + + | Component | Value | Ref Range | Performed | Pathologist | | | | | At | Signature | + + + + + + | Glucose, | 100 (H)Comment: Testing | 65 - 99 mg/dL | [facility] | | | POC | performed at [facility];[address] | | LABORATORY | | | | [address];[place], [place] | | | | | | [address] | | | | + + + + + + + + | Specimen | + + | | + + + + + + + | Performing | Address | City/State/Zipcode | Phone Number | | Organization | | | | + + + + + | [facility] | [address] | [place] [address] | [phone] | + + + + + POC Glucose (12/25/2019 3:07 AM PDT) + + + + + + | Component | Value | Ref Range | Performed | Pathologist | | | | | At | Signature | + + + + + + | Glucose, | 98Comment: Testing | 65 - 99 mg/dL | [facility] | | | POC | performed at [facility];[address] | | LABORATORY | | | | [address];[place], [place] | | | | | | [address] | | | | + + + + + + + + | Specimen | + + | | + + + + + + + | Performing | Address | City/State/Zipcode | Phone Number | | Organization | | | | + + + + + | [facility] | [address] | [place] [address] | [phone] | + + + + + POC Glucose (12/25/2019 1:56 AM PDT) + + + + + + | Component | Value | Ref Range | Performed | Pathologist | | | | | At | Signature | + + + + + + | Glucose, | 99Comment: Testing | 65 - 99 mg/dL | [facility] | | | POC | performed at [facility];[address] | | LABORATORY | | | | [address];[place] | | | | | | [address] | | | | + + + + + + + + | Specimen | + + | | + + + + + + + | Performing | Address | City/State/Zipcode | Phone Number | | Organization | | | | + + + + + | [facility] | [address] | [place] [address] | [phone] | + + + + + Potassium (12/24/2019 11:55 PM PDT) + + + + + + | Component | Value | Ref Range | Performed | Pathologist | | | | | At | Signature | + + + + + + | K | 4.2Comment: Testing | 3.5 - 4.9 | [facility] | | | | performed at [facility];[address] | mmol/L | LABORATORY | | | | [facility];[place], [place] | | | | | | [address] | | | | + + + + + + + + | Specimen | + + | Blood | + + + + + + + | Performing | Address | City/State/Zipcode | Phone Number | | Organization | | | | + + + + + | [facility] | [address] | [place] [address] | [phone] | + + + + + POC Glucose (12/24/2019 11:52 PM PDT) + + + + + + | Component | Value | Ref Range | Performed | Pathologist | | | | | At | Signature | + + + + + + | Glucose, | 105 (H)Comment: Testing | 65 - 99 mg/dL | [facility] | | | POC | performed at [facility];[address] | | LABORATORY | | | | [address];[place] | | | | | | [address] | | | | + + + + + + + + | Specimen | + + | | + + + + + + + | Performing | Address | City/State/Zipcode | Phone Number | | Organization | | | | + + + + + | [facility] | [address] | [place] [address] | [phone] | + + + + + POC Glucose (12/24/2019 9:53 PM PDT) + + + + + + | Component | Value | Ref Range | Performed | Pathologist | | | | | At | Signature | + + + + + + | Glucose, | 102 (H)Comment: Testing | 65 - 99 mg/dL | [facility] | | | POC | performed at [facility];[address] | | LABORATORY | | | | [address];[place] | | | | | | [address] | | | | + + + + + + + + | Specimen | + + | | + + + + + + + | Performing | Address | City/State/Zipcode | Phone Number | | Organization | | | | + + + + + | [facility] | [address] | [place] [address] | [phone] | + + + + + CT Head wo Contrast (12/24/2019 9:26 PM PDT) + + | Specimen | + + | | + + + + + | Impressions | Performed At | + + + | Small subacute infarct within the right occipital lobe, not | [facility] | | significantly changed since CT 12/20/2019. No additional significant | | | intracranial findings. Final Report Signed by: Terri | | | Prosper King Date/Time: 12/25/2019 2:07 AM | | + + + + + + | Narrative | Performed At | + + + | CT HEAD WITHOUT CONTRAST CLINICAL INFORMATION: New onset | [facility] | | seizures with dizziness, weakness, and fatigue. COMPARISON: CT | | | ANGIOGRAM HEAD NECK W CONTRAST (12/20/2019); MRI BRAIN W WO CONTRAST | | | (12/18/2019); PROCEDURE: Axial images were obtained through the | | | head without IV contrast. Multiplanar reformations were obtained from | | | the acquisition data. At least one of the following CT dose | | | optimization techniques were used: Automated exposure control; | | | Adjustment of mA and/or kV according to patient size; Use of | | | iterative reconstruction technique. FINDINGS: Brain: No | | | intracranial hemorrhage, midline shift or pathologic mass effect. | | | Small focus of hypoattenuation within the right occipital lobe not | | | significantly changed since 12/20/2019. Ventricles and extra-axial | | | fluid spaces: Normal. Paranasal sinuses and mastoid air cells: | | | Normal. Calvarium and extracranial soft tissues: Calvarium intact. | | | Left forehead lipoma measuring 3.7 x 3.2 x 0.9 cm. Orbits: | | | Imaged portions of the orbits are normal. | | + + + + + | Procedure Note | + + | Juan, [id number] - 12/25/2019 2:10 AM PDT | | CT HEAD WITHOUT CONTRAST | | | | CLINICAL INFORMATION: | | New onset seizures with dizziness, weakness, and fatigue. | | | | COMPARISON: | | CT ANGIOGRAM HEAD NECK W CONTRAST (12/20/2019); MRI BRAIN W WO CONTRAST | | (12/18/2019); | | | | PROCEDURE: | | Axial images were obtained through the head without IV contrast. | | Multiplanar reformations were obtained from the acquisition data. | | | | At least one of the following CT dose optimization techniques were | | used: Automated exposure control; Adjustment of mA and/or kV according | | to patient size; Use of iterative reconstruction technique. | | | | FINDINGS: | | Brain: No intracranial hemorrhage, midline shift or pathologic mass | | effect. Small focus of hypoattenuation within the right occipital lobe | | not significantly changed since 12/20/2019. | | | | Ventricles and extra-axial fluid spaces: Normal. | | | | Paranasal sinuses and mastoid air cells: Normal. | | | | Calvarium and extracranial soft tissues: Calvarium intact. Left | | forehead lipoma measuring 3.7 x 3.2 x 0.9 cm. | | | | Orbits: Imaged portions of the orbits are normal. | | | | IMPRESSION: | | Small subacute infarct within the right occipital lobe, not | | significantly changed since CT 12/20/2019. No additional significant | | intracranial findings. | | | | | | | | Final Report Signed by: Fernando Murray Zachary | | Sign Date/Time: 12/25/2019 2:07 AM | + + + +---------+ + + | Performing | Address | City/State/Zipcode | Phone Number | | Organization | | | | + +---------+ + + | [facility] | | | | + +---------+ + + POC Glucose (12/24/2019 8:56 PM PDT) + + + + + + | Component | Value | Ref Range | Performed | Pathologist | | | | | At | Signature | + + + + + + | Glucose, | 106 (H)Comment: Testing | 65 - 99 mg/dL | [facility] | | | POC | performed at [facility];[address] | | LABORATORY | | | | [address];[place] | | | | | | [address] | | | | + + + + + + + + | Specimen | + + | | + + + + + + + | Performing | Address | City/State/Zipcode | Phone Number | | Organization | | | | + + + + + | [facility] | [address] | [place] [address] | [phone] | + + + + + Potassium (12/24/2019 7:59 PM PDT) + + + + + + | Component | Value | Ref Range | Performed | Pathologist | | | | | At | Signature | + + + + + + | K | 4.5Comment: Testing | 3.5 - 4.9 | [facility] | | | | performed at [facility];[address] | mmol/L | LABORATORY | | | | [address];[place], [place] | | | | | | [address] | | | | + + + + + + + + | Specimen | + + | Blood | + + + + + + + | Performing | Address | City/State/Zipcode | Phone Number | | Organization | | | | + + + + + | [facility] | [address] | [place] [address] | [phone] | + + + + + POC Glucose (12/24/2019 7:52 PM PDT) + + + + + + | Component | Value | Ref Range | Performed | Pathologist | | | | | At | Signature | + + + + + + | Glucose, | 106 (H)Comment: Testing | 65 - 99 mg/dL | [facility] | | | POC | performed at [facility];[address] | | LABORATORY | | | | [address];[place] | | | | | | [address] | | | | + + + + + + + + | Specimen | + + | | + + + + + + + | Performing | Address | City/State/Zipcode | Phone Number | | Organization | | | | + + + + + | [facility] | [address] | [place] [address] | [phone] | + + + + + POC Glucose (12/24/2019 6:49 PM PDT) + + + + + + | Component | Value | Ref Range | Performed | Pathologist | | | | | At | Signature | + + + + + + | Glucose, | 96Comment: Testing | 65 - 99 mg/dL | [facility] | | | POC | performed at [facility];[address] | | LABORATORY | | | | [address];[place] | | | | | | [address] | | | | + + + + + + + + | Specimen | + + | | + + + + + + + | Performing | Address | City/State/Zipcode | Phone Number | | Organization | | | | + + + + + | [facility] | [address] | [place] [address] | [phone] | + + + + + Blood gas, Arterial (12/24/2019 5:56 PM PDT) + + + + + + | Component | Value | Ref Range | Performed | Pathologist | | | | | At | Signature | + + + + + + | FiO2, POC | 30 | % | [facility] | | | | | | LABORATORY | | + + + + + + | pH, | 7.341 (L)Comment: This | 7.350 - 7.450 | [facility] | | | Arterial, | test was developed and | | LABORATORY | | | POC | its performance | | | | | | characteristics | | | | | | determined by[facility], it | | | | | | has not been cleared or | | | | | | approved by the [place] FDA. | | | | | | Clinicians should | | | | | | beadvised to consider a | | | | | | patient's signs, | | | | | | symptoms, history, and | | | | | | results of | | | | | | otherdiagnostic tests | | | | | | when interpreting | | | | | | results from these | | | | | | cartridges. | | | | + + + + + + | pCO2, | 40 | 35 - 45 mmHg | [facility] | | | Arterial | | | LABORATORY | | + + + + + + | pO2, | 160 (H) | 80 - 105 mmHg | [facility] | | | Arterial | | | LABORATORY | | + + + + + + | HCO3, | 21 (L) | 22 - 26 mmol/L | [facility] | | | Arterial | | | LABORATORY | | + + + + + + | TCO2, | 23 | 23 - 27 mEq/L | [facility] | | | Arterial, | | | LABORATORY | | | POC | | | | | + + + + + + | POC Base | 4 (H) | 0.0 - 2.0 | [facility] | | | Deficit | | mmol/L | LABORATORY | | | mmol/L | | | | | + + + + + + | SO2, | 99 (H)Comment: Testing | 95 - 98 % | [facility] | | | Arterial, | performed at [facility];[address] | | LABORATORY | | | POC | [facility];[place], [place] | | | | | | [address] | | | | + + + + + + + + | Specimen | + + | | + + + + + + + | Performing | Address | City/State/Zipcode | Phone Number | | Organization | | | | + + + + + | [facility] | [address] | [place] [address] | [phone] | + + + + + POC Glucose (12/24/2019 5:54 PM PDT) + + + + + + | Component | Value | Ref Range | Performed | Pathologist | | | | | At | Signature | + + + + + + | Glucose, | 99Comment: Testing | 65 - 99 mg/dL | [facility] | | | POC | performed at [facility];[address] | | LABORATORY | | | | [address];[place] | | | | | | [address] | | | | + + + + + + + + | Specimen | + + | | + + + + + + + | Performing | Address | City/State/Zipcode | Phone Number | | Organization | | | | + + + + + | [facility] | [address] | [place] [address] | [phone] | + + + + + POC Glucose (12/24/2019 5:03 PM PDT) + + + + + + | Component | Value | Ref Range | Performed | Pathologist | | | | | At | Signature | + + + + + + | Glucose, | 119 (H)Comment: Testing | 65 - 99 mg/dL | [facility] | | | POC | performed at [facility];[address] | | LABORATORY | | | | [address];[place] | | | | | | [address] | | | | + + + + + + + + | Specimen | + + | | + + + + + + + | Performing | Address | City/State/Zipcode | Phone Number | | Organization | | | | + + + + + | [facility] | [address] | [place] [address] | [phone] | + + + + + Potassium (12/24/2019 3:57 PM PDT) + + + + + + | Component | Value | Ref Range | Performed | Pathologist | | | | | At | Signature | + + + + + + | K | 4.3Comment: Testing | 3.5 - 4.9 | [facility] | | | | performed at [facility];888 | mmol/L | LABORATORY | | | | [address];[place] | | | | | | [address] | | | | + + + + + + + + | Specimen | + + | Blood | + + + + + + + | Performing | Address | City/State/Zipcode | Phone Number | | Organization | | | | + + + + + | [facility] | [address] | [place] [address] | [phone] | + + + + + POC Glucose (12/24/2019 3:51 PM PDT) + + + + + + | Component | Value | Ref Range | Performed | Pathologist | | | | | At | Signature | + + + + + + | Glucose, | 126 (H)Comment: Testing | 65 - 99 mg/dL | [facility] | | | POC | performed at [facility];[address] | | LABORATORY | | | | [address];[place] | | | | | | [address] | | | | + + + + + + + + | Specimen | + + | | + + + + + + + | Performing | Address | City/State/Zipcode | Phone Number | | Organization | | | | + + + + + | [facility] | [address] | [place] [address] | [phone] | + + + + + Activated clotting time (12/24/2019 3:26 PM PDT) + + + + + + | Component | Value | Ref Range | Performed | Pathologist | | | | | At | Signature | + + + + + + | Activated | 257 (H)Comment: Testing | 74 - 137 | [facility] | | | Clotting | performed at [facility];888 | seconds | LABORATORY | | | Time, POC | [address];[place], [place] | | | | | | [address] | | | | + + + + + + + + | Specimen | + + | | + + + + + + + | Performing | Address | City/State/Zipcode | Phone Number | | Organization | | | | + + + + + | [facility] | [address] | [place] [address] | [phone] | + + + + + Blood gas, Arterial (12/24/2019 3:22 PM PDT) + + + + + + | Component | Value | Ref Range | Performed | Pathologist | | | | | At | Signature | + + + + + + | FiO2, POC | 30 | % | [facility] | | | | | | LABORATORY | | + + + + + + | pH, | 7.382Comment: This test | 7.350 - 7.450 | [facility] | | | Arterial, | was developed and its | | LABORATORY | | | POC | performance | | | | | | characteristics | | | | | | determined by[facility], it | | | | | | has not been cleared or | | | | | | approved by the [place] FDA. | | | | | | Clinicians should | | | | | | beadvised to consider a | | | | | | patient's signs, | | | | | | symptoms, history, and | | | | | | results of | | | | | | otherdiagnostic tests | | | | | | when interpreting | | | | | | results from these | | | | | | cartridges. | | | | + + + + + + | pCO2, | 33 (L) | 35 - 45 mmHg | [facility] | | | Arterial | | | LABORATORY | | + + + + + + | pO2, | 153 (H) | 80 - 105 mmHg | [facility] | | | Arterial | | | LABORATORY | | + + + + + + | HCO3, | 20 (L) | 22 - 26 mmol/L | [facility] | | | Arterial | | | LABORATORY | | + + + + + + | TCO2, | 21 (L) | 23 - 27 mEq/L | [facility] | | | Arterial, | | | LABORATORY | | | POC | | | | | + + + + + + | POC Base | 6 (H) | 0.0 - 2.0 | [facility] | | | Deficit | | mmol/L | LABORATORY | | | mmol/L | | | | | + + + + + + | SO2, | 99 (H)Comment: Testing | 95 - 98 % | [facility] | | | Arterial, | performed at [facility];888 | | LABORATORY | | | POC | [address];[place] | | | | | | [address] | | | | + + + + + + + + | Specimen | + + | | + + + + + + + | Performing | Address | City/State/Zipcode | Phone Number | | Organization | | | | + + + + + | [facility] | [address] | [place] [address] | [phone] | + + + + + POC Glucose (12/24/2019 2:44 PM PDT) + + + + + + | Component | Value | Ref Range | Performed | Pathologist | | | | | At | Signature | + + + + + + | Glucose, | 127 (H)Comment: Testing | 65 - 99 mg/dL | [facility] | | | POC | performed at [facility];[address] | | LABORATORY | | | | [address];[place] | | | | | | [address] | | | | + + + + + + + + | Specimen | + + | | + + + + + + + | Performing | Address | City/State/Zipcode | Phone Number | | Organization | | | | + + + + + | [facility] | [address] | [place] [address] | [phone] | + + + + + XR Chest AP Portable (12/24/2019 1:48 PM PDT) + + | Specimen | + + | | + + + + + | Impressions | Performed At | + + + | 1. NG tube at the gastroesophageal junction. Right IJ line at the | [facility] | | expected confluence of jugular and subclavian veins. ET tube 5 cm | | | from the dany. 2. No unexpected postoperative findings. Low lung | | | volumes. Final Report Signed by: Fernando Nathan Scott Sign | | | Date/Time: 12/24/2019 1:54 PM | | + + + + + + | Narrative | Performed At | + + + | CHEST PORTABLE ONE VIEW CLINICAL INFORMATION: Open heart | [facility] | | surgery COMPARISON: XR CHEST PA AND LATERAL (12/23/2019); XR CHEST | | | AP PORTABLE (12/22/2019); XR CHEST AP PORTABLE (12/17/2019); XR CHEST | | | AP PORTABLE (10/31/2019); FINDINGS: ET tube 5.5 cm from the | | | dany. NG tube terminates at the gastroesophageal junction. | | | Right IJ line terminates at the expected location of the internal | | | jugular vein and subclavian vein confluence. Left-sided chest tube | | | present. Radiopaque densities at the expected location of the | | | mitral valve. No unexpected postoperative findings. Decreased lung | | | volumes. No significant effusion or pneumothorax. | | + + + + + | Procedure Note | + + | Juan, [id number] - 12/24/2019 1:58 PM PDT | | CHEST PORTABLE ONE VIEW | | | | CLINICAL INFORMATION: | | Open heart surgery | | | | COMPARISON: | | XR CHEST PA AND LATERAL (12/23/2019); XR CHEST AP PORTABLE (12/22/2019); | | XR CHEST AP PORTABLE (12/17/2019); XR CHEST AP PORTABLE (10/31/2019); | | | | FINDINGS: | | ET tube 5.5 cm from the dany. NG tube terminates at the | | gastroesophageal junction. Right IJ line terminates at the expected | | location of the internal jugular vein and subclavian vein confluence. | | Left-sided chest tube present. Radiopaque densities at the expected | | location of the mitral valve. No unexpected postoperative findings. | | Decreased lung volumes. No significant effusion or pneumothorax. | | | | IMPRESSION: | | 1. NG tube at the gastroesophageal junction. Right IJ line at the | | expected confluence of jugular and subclavian veins. ET tube 5 cm from | | the dany. | | 2. No unexpected postoperative findings. Low lung volumes. | | | | | | | | | | Final Report Signed by: Fernando Nathan Scott | | Sign Date/Time: 12/24/2019 1:54 PM | + + + +---------+ + + | Performing | Address | City/State/Zipcode | Phone Number | | Organization | | | | + +---------+ + + | [facility] | | | | + +---------+ + + Blood gas, Arterial (12/24/2019 1:31 PM PDT) + + + + + + | Component | Value | Ref Range | Performed | Pathologist | | | | | At | Signature | + + + + + + | FiO2, POC | 50 | % | [facility] | | | | | | LABORATORY | | + + + + + + | pH, | 7.330 (L)Comment: This | 7.350 - 7.450 | [facility] | | | Arterial, | test was developed and | | LABORATORY | | | POC | its performance | | | | | | characteristics | | | | | | determined by[facility], it | | | | | | has not been cleared or | | | | | | approved by the [place] FDA. | | | | | | Clinicians should | | | | | | beadvised to consider a | | | | | | patient's signs, | | | | | | symptoms, history, and | | | | | | results of | | | | | | otherdiagnostic tests | | | | | | when interpreting | | | | | | results from these | | | | | | cartridges. | | | | + + + + + + | pCO2, | 43 | 35 - 45 mmHg | [facility] | | | Arterial | | | LABORATORY | | + + + + + + | pO2, | 230 (HH) | 80 - 105 mmHg | [facility] | | | Arterial | | | LABORATORY | | + + + + + + | HCO3, | 23 | 22 - 26 mmol/L | [facility] | | | Arterial | | | LABORATORY | | + + + + + + | TCO2, | 24 | 23 - 27 mEq/L | [facility] | | | Arterial, | | | LABORATORY | | | POC | | | | | + + + + + + | POC Base | 3 (H) | 0.0 - 2.0 | [facility] | | | Deficit | | mmol/L | LABORATORY | | | mmol/L | | | | | + + + + + + | SO2, | 100 (H)Comment: Testing | 95 - 98 % | [facility] | | | Arterial, | performed at [facility];888 | | LABORATORY | | | POC | [address];[place] | | | | | | [address] | | | | + + + + + + + + | Specimen | + + | | + + + + + + + | Performing | Address | City/State/Zipcode | Phone Number | | Organization | | | | + + + + + | [facility] | [address] | [place] [address] | [phone] | + + + + + POC Glucose (12/24/2019 1:29 PM PDT) + + + + + + | Component | Value | Ref Range | Performed | Pathologist | | | | | At | Signature | + + + + + + | Glucose, | 128 (H)Comment: Testing | 65 - 99 mg/dL | [facility] | | | POC | performed at [facility];[address] | | LABORATORY | | | | [address];[place] | | | | | | [address] | | | | + + + + + + + + | Specimen | + + | | + + + + + + + | Performing | Address | City/State/Zipcode | Phone Number | | Organization | | | | + + + + + | [facility] | [address] | [place] [address] | [phone] | + + + + + PTT (12/24/2019 1:28 PM PDT) + + + + + + | Component | Value | Ref Range | Performed | Pathologist | | | | | At | Signature | + + + + + + | PTT | 32Comment: Testing | 23 32 seconds | [facility] | | | | performed at [facility];[address] | | LABORATORY | | | | [address];[place], [place] | | | | | | [address] | | | | + + + + + + + + | Specimen | + + | Blood | + + + + + + + | Performing | Address | City/State/Zipcode | Phone Number | | Organization | | | | + + + + + | [facility] | [address] | [place] [address] | [phone] | + + + + + Protime INR (12/24/2019 1:28 PM PDT) + + + + + + | Component | Value | Ref Range | Performed | Pathologist | | | | | At | Signature | + + + + + + | INR | 1.3Comment: REFERENCE | | [facility] | | | | RANGE:0.9 - 1.2 | | LABORATORY | | | | NON-ANTICOAGULATED2.0 | | | | | | - 3.0 ALL OTHER | | | | | | THERAPEUTIC | | | | | | INDICATIONS2.5 - 3.5 | | | | | | MECHANICAL HEART VALVES, | | | | | | RECURRENT OR SYSTEMIC | | | | | | EMBOLISMTesting | | | | | | performed at [facility] | | | | | | [address];[place], [place] | | | | | | [address] | | | | + + + + + + + + | Specimen | + + | Blood | + + + + + + + | Performing | Address | City/State/Zipcode | Phone Number | | Organization | | | | + + + + + | [facility] | [address] | [place] [address] | [phone] | + + + + + Magnesium (12/24/2019 1:28 PM PDT) + + + + + + | Component | Value | Ref Range | Performed | Pathologist | | | | | At | Signature | + + + + + + | Magnesium | 3.1 (H)Comment: Testing | 1.7 - 2.4 mg/dL | [facility] | | | | performed at [facility];[address] | | LABORATORY | | | | [address];[place] | | | | | | [address] | | | | + + + + + + + + | Specimen | + + | Blood | + + + + + + + | Performing | Address | City/State/Zipcode | Phone Number | | Organization | | | | + + + + + | [facility] | [address] | [place] [address] | [phone] | + + + + + Fibrinogen (12/24/2019 1:28 PM PDT) + + + + + + | Component | Value | Ref Range | Performed | Pathologist | | | | | At | Signature | + + + + + + | Fibrinogen | 292Comment: Testing | 200 - 450 mg/dL | [facility] | | | | performed at [facility];[address] | | LABORATORY | | | | [address];[place] | | | | | | [address] | | | | + + + + + + + + | Specimen | + + | Blood | + + + + + + + | Performing | Address | City/State/Zipcode | Phone Number | | Organization | | | | + + + + + | [facility] | [address] | [place] [address] | [phone] | + + + + + CBC with Differential (12/24/2019 1:28 PM PDT) + + + + + + | Component | Value | Ref Range | Performed | Pathologist | | | | | At | Signature | + + + + + + | WBC | 41.65 (HH)Comment: | 3.80 - 11.00 | [facility] | | | | CALLED RESULTSREAD BACK | K/uL | LABORATORY | | | | RESULTS VERIFIEDALISHA | | | | | | L/ICU AT 1356 BY KHANG | | | | | |DEBBI L/ICU AT 1356 BY KHANG | | | | | | | | | | + + + + + + | Red Blood | 3.73 (L) | 4.20 - 5.70 | [facility] | | | Cells | | M/uL | LABORATORY | | + + + + + + | Hemoglobin | 10.8 (L) | 13.2 - 17.0 | [facility] | | | | | g/dL | LABORATORY | | + + + + + + | Hematocrit | 33.3 (L) | 39.0 - 50.0 % | [facility] | | | | | | LABORATORY | | + + + + + + | MCV | 89.3 | 80.0 - 100.0 fl | [facility] | | | | | | LABORATORY | | + + + + + + | MCH | 29.0 | 27.0 - 34.0 pg | [facility] | | | | | | LABORATORY | | + + + + + + | MCHC | 32.4 | 32.0 - 35.5 | [facility] | | | | | g/dL | LABORATORY | | + + + + + + | RDW-SD | 53.5 (H) | 37 - 53 fl | [facility] | | | | | | LABORATORY | | + + + + + + | Platelet | 178 | 150 - 400 K/uL | [facility] | | | Count | | | LABORATORY | | + + + + + + | MPV | 9.7Comment: NO NORMAL | fl | [facility] | | | | RANGE ESTABLISHED | | LABORATORY | | + + + + + + | Diff Type | MANUAL | | [facility] | | | | | | LABORATORY | | + + + + + + | % Segmented | 93 | % | [facility] | | | | | | LABORATORY | | | Neutrophils | | | | | + + + + + + | % | 5 | % | [facility] | | | Lymphocytes | | | LABORATORY | | + + + + + + | % Monocytes | 2 | % | [facility] | | | | | | LABORATORY | | + + + + + + | Neutrophils | 38.74 (H) | 1.90 - 7.40 | [facility] | | | , Absolute | | K/uL | LABORATORY | | + + + + + + | Absolute | 2.08 | 1.00 - 3.90 | [facility] | | | Lymphocytes | | K/uL | LABORATORY | | + + + + + + | Absolute | 0.83 (H) | 0.00 - 0.80 | [facility] | | | Monocytes | | K/uL | LABORATORY | | + + + + + + | Platelet | ADEQUATE | | [facility] | | | Estimate | | | LABORATORY | | + + + + + + | RBC | RBC AND PLT MORPHOLOGY | | [facility] | | | Morphology | APPEAR NORMALComment: | | LABORATORY | | | | Testing performed at | | | | | | [facility];[address];[place] [address] | | | | + + + + + + + + | Specimen | + + | Blood | + + + + + + + | Performing | Address | City/State/Zipcode | Phone Number | | Organization | | | | + + + + + | [facility] | [address] | [place] [address] | [phone] | + + + + + Basic Metabolic Panel (12/24/2019 1:28 PM PDT) + + + + + + | Component | Value | Ref Range | Performed | Pathologist | | | | | At | Signature | + + + + + + | Na | 136 | 135 - 145 | [facility] | | | | | mmol/L | LABORATORY | | + + + + + + | K | 4.3 | 3.5 - 4.9 | [facility] | | | | | mmol/L | LABORATORY | | + + + + + + | Cl | 106 | 99 - 109 mmol/L | [facility] | | | | | | LABORATORY | | + + + + + + | CO2 | 24 | 23 - 32 mmol/L | [facility] | | | | | | LABORATORY | | + + + + + + | Anion Gap | 10 | 5 - 20 mmol/L | [facility] | | | | | | LABORATORY | | + + + + + + | Glucose | 132 (H) | 65 - 99 mg/dL | [facility] | | | | | | LABORATORY | | + + + + + + | BUN | 16 | 8 - 25 mg/dL | [facility] | | | | | | LABORATORY | | + + + + + + | Creatinine | 1.01 | 0.70 - 1.30 | [facility] | | | | | mg/dL | LABORATORY | | + + + + + + | BUN/Creatin | 16 | | [facility] | | | ine Ratio | | | LABORATORY | | + + + + + + | Calcium | 7.1 (L) | 8.5 - 10.5 | [facility] | | | | | mg/dL | LABORATORY | | + + + + + + | Estimated | >60Comment: GFR <60: | >60 | [facility] | | | GFR | CHRONIC KIDNEY DISEASE, | mL/min/1.73m2 | LABORATORY | | | | IF FOUND OVER A 3 MONTH | | | | | | PERIOD.GFR <15: KIDNEY | | | | | | FAILURE.FOR | | | | | | AMERICANS, MULTIPLY THE | | | | | | CALCULATED GFR BY | | | | | | 1.210.This eGFR is | | | | | | calculated using the | | | | | | MDRD IDMS traceable | | | | | | equation.Testing | | | | | | performed at [facility];[address] | | | | | | [facility];[place], [place] | | | | | | [address] | | | | + + + + + + + + | Specimen | + + | Blood | + + + + + + + | Performing | Address | City/State/Zipcode | Phone Number | | Organization | | | | + + + + + | [facility] | [address] | [place] [address] | [phone] | + + + + + ECHO Transesophageal (ARNOLDO) - Periop (12/24/2019 1:14 PM PDT) + +-------+ + + + | Component | Value | Ref Range | Performed | Pathologist | | | | | At | Signature | + +-------+ + + + | LVEF-ARNOLDO | 55 | | [facility] | | | TRANSESOPHA | | | | | | GEAL ECHO | | | | | + +-------+ + + + + + | Specimen | + + | | + + + +--- + | Narrative | Pe rformed At | + +--- + | | [facility] | | Transesophageal Echocardiography Report (ARNOLDO) Demographics Patient | | | Name CHEYANNE SIMMS Room Number [facility] | | | SUSHIL | | | JARAD Patient Number [id number] Date of Study | | | 12/24/2019 Visit Number [id number] Referring | | | Physician SAMUEL Gracia | | | Firearms Assembly Supervisor Number Date of 1950 | | | Interpreting Nimesh Castillo MD | | | Physician 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 Procedure DateDate: | | | 12/24/2019 Start: 08:34 AM Study Location: [facility] Quality: | | | Adequate visualization Patient Status: Routine Height: 65 inches | | | Weight: 130 pounds BSA: 1.65 m^2 BMI: 21.63 kg/m^2 Rhythm: Normal | | | Sinus Rhythm HR: 70 bpm BP: 110/60 mmHg Conclusions Summary Normal | | | LV systolic function with LVEF = 55%. Mild concentric LVH. Moderately | | | dilated RV with preserved systolic function. Severe LAE. At least | | | moderate tribal MR with (+)vegetation on P2 scallop. Mild AI. Trace | | | TR. Mild PI. 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 | | | Signature | | | | | | Electronically signed by Nimesh Castillo MD (Interpreting physician) on | | | 12/24/2019 at 04:01 PM | | | ARNOLDO | | | Performed By: Dr. Reddy Type of Anesthesia: General anesthesia | | | Cardiac Chambers RA: Normal | | | LV: Normal LV size LA: Markedly dilated LA | | | RV: Dilated RV Global RV Function: Normal Global LV Function: Normal | | | LV Diastolic Fxn: Normal Ascending Ao: Intimal thickening Aortic Arch: | | | Mild-mod atherosclerosis Descending Ao: Mild-mod atherosclerosis | | | Atrial Septum: PFO by color flow Structures Left Atrium LA | | | Dimension: 5.7 cm Left Atrium Findings Severely dilated LA chamber. | | | Normal (large caliber) appendage. Absent thrombus. Interatrial septum | | | demonstrates lipomatous hypertrophy. (+)small PFO with lidv-qm-wfzpq | | | shunt via CFM. Left Ventricle Diastolic Dimension: 4.95 cm | | | Systolic Dimension: 3.43 cm EF Estimated: 55% | | | FS: 30.7 % CO: 3.91 l/min | | | CI: 2.37 l/min*m^2 LVOT Diameter: 2.16 cm Left Ventricle | | | Findings Normal LV chamber size. Mild concentric LV muscular | | | hypertrophy. Normal global & regional LV systolic function with | | | estimated LVEF = 55%. Absent RWMAs. Normal diastology. Right Atrium | | | RA Dimension: 3.9 cm RA Systolic Pressure: 12 mmHg Right Atrium | | | Findings Normal RA chamber size. Right Ventricle Diastolic | | | Dimension: 3.72 cm | | | RV Systolic Pressure: 37.45 mmHg Right Ventricle Findings | | | Moderately enlarged RV chamber size without evidence of RV muscular | | | hypertrophy. Normal RV systolic function. MiscellaneousAorta | | | Ascending Aorta: 3.25 cm Aortic Arch: 2.39 cm LVOT | | | Diameter: 2.16 cm Descending Aorta: 2.48 cm | | | Miscellaneous SxrdcnxnUvkb-nj-qpxiwbvt atherosclerosis of thoracic | | | aorta. Post-CPB, s/p MVR findings: normal LV global & regional | | | systolic functionwith estimated LVEF = 55% (on low-dose epinephrine). | | | Absent RWMAs. Normal RVsystolic function. 29mm SJM Epic porcine | | | bioprosthetic MVR appearswell-seated with good leaflet excursion. No | | | paravalvular or pathologicperivalvular leaks noted. Absent prosthetic | | | mitral stenosis with meantransmitral gradient = 4mmHg. AI remains | | | mild. TR remains trace. PI remainsmild. No evidence of aortic | | | trauma/dissection. Examination otherwiseunchanged. Pericardium | | | Pericardial Effusion Findings Small generalized pericardial effusion | | | without tamponade physiology. Pleura Pleural Effusion Findings | | | Fbmbm-dv-pbjhqbxl left pleural effusion noted. Valves Mitral Valve | | | Peak E-Wave: 106.4 cm/s Peak A-Wave: 43.89 cm/s Mean | | | Velocity: 80.9 cm/s E/A Ratio: 2.42 Mean Gradient: 3.26 | | | mmHg Peak Gradient: 7.91 mmHg | | | Deceleration Time: 242.7 msec MR Velocity: | | | 397.2 cm/s Area (continuity): 1.65 cm^2 Mitral Valve | | | Findings MV annulus = 3.8cm. Mild annular calcification. At least | | | moderate mitral regurgitation with eccentric jet. (+)large (2.4 x | | | 1.4cm) follicular vegetation noted on posterior leaflet (primarily P2 | | | with some extension to P1 scallop). Mass is highly mobile and | | | prolapses into LA with systole. Absent mitral stenosis with | | | transmitral mean grad = 1mmHg. Aortic Valve Peak Velocity: 117.63 | | | cm/s Mean Velocity: 72.95 cm/s Peak Gradient: 5.53 | | | mmHg Mean Gradient: 2.73 mmHg Area (continuity): | | | 2.55 cm^2 Area (2D): 2.33 cm^2 AV VTI: 21.88 cm Aortic | | | Valve Findings AV annulus = 21mm. Tri-cuspid tribal valve. Mild cusp & | | | annular calcification. Mild aortic insufficiency with jet originating | | | near annulus between noncoronary- and left coronary cusps. No | | | evidence of vegetation or fistula tract identified. Absent aortic | | | stenosis (BEKAH = 2.3cm2 via planimetry vs. 2.5cm2 via continuity | | | equation, peak grad = 6mmHg, mean grad = 3mmHg). Tricuspid Valve | | | Estimated RVSP: 37.45 mmHg Estimated RAP: 12 mmHg TR | | | Velocity: 252.26 cm/s TR Gradient: 25.45 mmHg | | | Tricuspid Valve Findings TV annulus = 3.3cm. Trace tricuspid | | | regurgitation. RVSP = 37mmHg consistent with mild pulmonary arterial | | | hypertension. Pulmonic Valve Peak Velocity: 44.33 cm/s | | | Peak Gradient: 0.79 mmHg Mean Velocity: 25.27 cm/s | | | Mean Gradient: 0.32 mmHg | | | Estimated PASP: 37.45 mmHg Pulmonic Valve Findings Mild | | | pulmonic insufficiency. Absent pulmonic stenosis. LVOT Peak | | | Velocity: 77.09 cm/s Mean Velocity: 50.88 cm/s Peak | | | Gradient: 2.38 mmHg Mean Gradient: 1.25 mmHg LVOT | | | Diameter: 2.16 cm LVOT VTI: 15.26 cm | | | | | | Right Atrium | | | | | | RA Dimension: 3.9 cm | | | RA Systolic Pressure: 12 mmHg | | | | | | Right Atrium Findings | | | Normal RA chamber size. | | | | | | Right Ventricle | | | | | | Diastolic Dimension: 3.72 cm | | | RV Systolic Pressure: 37.45 mmHg | | | | | | Right Ventricle Findings | | | Moderately enlarged RV chamber size without evidence of RV muscular | | | hypertrophy. Normal RV systolic function. | | | | | |Miscellaneous | | |Aorta | | | | | | Ascending Aorta: 3.25 cm Aortic Arch: 2.39 cm | | | LVOT Diameter: 2.16 cm Descending Aorta: 2.48 cm | | | | | |Miscellaneous Findings | | |Mryq-sh-ffzrpxjq atherosclerosis of thoracic aorta. | | | | | |Post-CPB, s/p MVR findings: normal LV global & regional systolic function | | |with estimated LVEF = 55% (on low-dose epinephrine). Absent RWMAs. Normal RV | | |systolic function. 29mm SJM Epic porcine bioprosthetic MVR appears | | |well-seated with good leaflet excursion. No paravalvular or pathologic | | |perivalvular leaks noted. Absent prosthetic mitral stenosis with mean | | |transmitral gradient = 4mmHg. AI remains mild. TR remains trace. PI remains | | |mild. No evidence of aortic trauma/dissection. Examination otherwise | | |unchanged. | | | | | | Pericardium | | | | | | Pericardial Effusion Findings | | | Small generalized pericardial effusion without tamponade physiology. | | | | | | Pleura | | | | | | Pleural Effusion Findings | | | [id number] left pleural effusion noted. | | | | | |Valves | | | | | | Mitral Valve | | | | | | Peak E-Wave: 106.4 cm/s Peak A-Wave: 43.89 cm/s | | | Mean Velocity: 80.9 cm/s E/A Ratio: 2.42 | | | Mean Gradient: 3.26 mmHg Peak Gradient: 7.91 mmHg | | | Deceleration Time: 242.7 msec | | | MR Velocity: 397.2 cm/s Area (continuity): 1.65 cm^2 | | | | | | Mitral Valve Findings | | | MV annulus = 3.8cm. Mild annular calcification. At least moderate mitral | | | regurgitation with eccentric jet. (+)large (2.4 x 1.4cm) follicular | | | vegetation noted on posterior leaflet (primarily P2 with some extension | | | to P1 scallop). Mass is highly mobile and prolapses into LA with systole. | | | Absent mitral stenosis with transmitral mean grad = 1mmHg. | | | | | | Aortic Valve | | | | | | Peak Velocity: 117.63 cm/s Mean Velocity: 72.95 cm/s | | | Peak Gradient: 5.53 mmHg Mean Gradient: 2.73 mmHg | | | Area (continuity): 2.55 cm^2 Area (2D): 2.33 cm^2 | | | AV VTI: 21.88 cm | | | | | | Aortic Valve Findings | | | AV annulus = 21mm. Tri-cuspid tribal valve. Mild cusp & annular | | | calcification. Mild aortic insufficiency with jet originating near | | | annulus between noncoronary- and left coronary cusps. No evidence of | | | vegetation or fistula tract identified. Absent aortic stenosis (BEKAH = | | | 2.3cm2 via planimetry vs. 2.5cm2 via continuity equation, peak grad = | | | 6mmHg, mean grad = 3mmHg). | | | | | | Tricuspid Valve | | | | | | Estimated RVSP: 37.45 mmHg Estimated RAP: 12 mmHg | | | TR Velocity: 252.26 cm/s TR Gradient: 25.45 mmHg | | | | | | Tricuspid Valve Findings | | | TV annulus = 3.3cm. Trace tricuspid regurgitation. RVSP = 37mmHg | | | consistent with mild pulmonary arterial hypertension. | | | | | | Pulmonic Valve | | | | | | Peak Velocity: 44.33 cm/s Peak Gradient: 0.79 mmHg | | | Mean Velocity: 25.27 cm/s Mean Gradient: 0.32 mmHg | | | Estimated PASP: 37.45 mmHg | | | | | | Pulmonic Valve Findings | | | Mild pulmonic insufficiency. Absent pulmonic stenosis. | | | | | | LVOT | | | | | | Peak Velocity: 77.09 cm/s Mean Velocity: 50.88 cm/s | | | Peak Gradient: 2.38 mmHg Mean Gradient: 1.25 mmHg | | | LVOT Diameter: 2.16 cm LVOT VTI: 15.26 cm | | | | | + +--- + + + | Procedure Note | + + | [place], [id number] - 12/24/2019 4:01 PM [facility] Transesophageal Echocardiography Report (ARNOLDO) | | | | Demographics | | | | Patient Name CHEYANNE SIMMS Room Number [facility] CV INTRA OP | | GILMINA POOL | | | | Patient Number [id number] Date of Study 12/24/2019 | | | | Visit Number [id number] Referring Physician SAMUEL MUSAA Chivo | | | | Firearms Assembly Supervisor | | Number | | | | Date of 1950 Interpreting Nimesh Castillo MD | | Physician | | | | 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 | | | | Procedure Date | | Date: 12/24/2019 Start: 08:34 AM | | | | Study Location: [place] | | Technical Quality: Adequate visualization | | | | Patient Status: Routine | | | | Height: 65 inches Weight: 130 pounds BSA: 1.65 m^2 BMI: 21.63 kg/m^2 | | | | Rhythm: Normal Sinus Rhythm HR: 70 bpm BP: 110/60 mmHg | | | | Conclusions | | | | Summary | | Normal LV systolic function with LVEF = 55%. Mild concentric LVH. | | Moderately dilated RV with preserved systolic function. Severe LAE. At | | least moderate tribal MR with (+)vegetation on P2 scallop. Mild AI. Trace | | TR. Mild PI. 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 | | | | Signature | | | | | | | | | | | | ARNOLDO Performed By: Dr. Reddy | | | | Type of Anesthesia: General anesthesia | | | | Cardiac Chambers | | | | RA: Normal LV: Normal LV size | | LA: Markedly dilated LA RV: Dilated RV | | | | Global RV Function: Normal | | Global LV Function: Normal | | LV Diastolic Fxn: Normal | | Ascending Ao: Intimal thickening | | Aortic Arch: Mild-mod atherosclerosis | | Descending Ao: Mild-mod atherosclerosis | | Atrial Septum: PFO by color flow | | | | Structures | | | | Left Atrium | | | | LA Dimension: 5.7 cm | | | | Left Atrium Findings | | Severely dilated LA chamber. Normal (large caliber) appendage. Absent | | thrombus. Interatrial septum demonstrates lipomatous hypertrophy. | | (+)small PFO with ycsm-np-rvgig shunt via CFM. | | | | Left Ventricle | | | | Diastolic Dimension: 4.95 cm Systolic Dimension: 3.43 cm | | | | EF Estimated: 55% FS: 30.7 % | | | | CO: 3.91 l/min CI: 2.37 l/min*m^2 | | LVOT Diameter: 2.16 cm | | | | Left Ventricle Findings | | Normal LV chamber size. Mild concentric LV muscular hypertrophy. Normal | | global & regional LV systolic function with estimated LVEF = 55%. Absent | | RWMAs. Normal diastology. | | | | Right Atrium | | | | RA Dimension: 3.9 cm | | RA Systolic Pressure: 12 mmHg | | | | Right Atrium Findings | | Normal RA chamber size. | | | | Right Ventricle | | | | Diastolic Dimension: 3.72 cm | | RV Systolic Pressure: 37.45 mmHg | | | | Right Ventricle Findings | | Moderately enlarged RV chamber size without evidence of RV muscular | | hypertrophy. Normal RV systolic function. | | | | Miscellaneous | | Aorta | | | | Ascending Aorta: 3.25 cm Aortic Arch: 2.39 cm | | LVOT Diameter: 2.16 cm Descending Aorta: 2.48 cm | | | | Miscellaneous Findings | | Rlev-ii-absanqgw atherosclerosis of thoracic aorta. | | | | Post-CPB, s/p MVR findings: normal LV global & regional systolic function | | with estimated LVEF = 55% (on low-dose epinephrine). Absent RWMAs. Normal RV | | systolic function. 29mm SJM Epic porcine bioprosthetic MVR appears | | well-seated with good leaflet excursion. No paravalvular or pathologic | | perivalvular leaks noted. Absent prosthetic mitral stenosis with mean | | transmitral gradient = 4mmHg. AI remains mild. TR remains trace. PI remains | | mild. No evidence of aortic trauma/dissection. Examination otherwise | | unchanged. | | | | Pericardium | | | | Pericardial Effusion Findings | | Small generalized pericardial effusion without tamponade physiology. | | | | Pleura | | | | Pleural Effusion Findings | | Dvthf-lv-svgrcnos left pleural effusion noted. | | | | Valves | | | | Mitral Valve | | | | Peak E-Wave: 106.4 cm/s Peak A-Wave: 43.89 cm/s | | Mean Velocity: 80.9 cm/s E/A Ratio: 2.42 | | Mean Gradient: 3.26 mmHg Peak Gradient: 7.91 mmHg | | Deceleration Time: 242.7 msec | | MR Velocity: 397.2 cm/s Area (continuity): 1.65 cm^2 | | | | Mitral Valve Findings | | MV annulus = 3.8cm. Mild annular calcification. At least moderate mitral | | regurgitation with eccentric jet. (+)large (2.4 x 1.4cm) follicular | | vegetation noted on posterior leaflet (primarily P2 with some extension | | to P1 scallop). Mass is highly mobile and prolapses into LA with systole. | | Absent mitral stenosis with transmitral mean grad = 1mmHg. | | | | Aortic Valve | | | | Peak Velocity: 117.63 cm/s Mean Velocity: 72.95 cm/s | | Peak Gradient: 5.53 mmHg Mean Gradient: 2.73 mmHg | | Area (continuity): 2.55 cm^2 Area (2D): 2.33 cm^2 | | AV VTI: 21.88 cm | | | | Aortic Valve Findings | | AV annulus = 21mm. Tri-cuspid tribal valve. Mild cusp & annular | | calcification. Mild aortic insufficiency with jet originating near | | annulus between noncoronary- and left coronary cusps. No evidence of | | vegetation or fistula tract identified. Absent aortic stenosis (BEKAH = | | 2.3cm2 via planimetry vs. 2.5cm2 via continuity equation, peak grad = | | 6mmHg, mean grad = 3mmHg). | | | | Tricuspid Valve | | | | Estimated RVSP: 37.45 mmHg Estimated RAP: 12 mmHg | | TR Velocity: 252.26 cm/s TR Gradient: 25.45 mmHg | | | | Tricuspid Valve Findings | | TV annulus = 3.3cm. Trace tricuspid regurgitation. RVSP = 37mmHg | | consistent with mild pulmonary arterial hypertension. | | | | Pulmonic Valve | | | | Peak Velocity: 44.33 cm/s Peak Gradient: 0.79 mmHg | | Mean Velocity: 25.27 cm/s Mean Gradient: 0.32 mmHg | | Estimated PASP: 37.45 mmHg | | | | Pulmonic Valve Findings | | Mild pulmonic insufficiency. Absent pulmonic stenosis. | | | | LVOT | | | | Peak Velocity: 77.09 cm/s Mean Velocity: 50.88 cm/s | | Peak Gradient: 2.38 mmHg Mean Gradient: 1.25 mmHg | | LVOT Diameter: 2.16 cm LVOT VTI: 15.26 cm | + + + +---------+ + + | Performing | Address | City/State/Zipcode | Phone Number | | Organization | | | | + +---------+ + + | [facility] | | | | + +---------+ + + POC CG 4, ISTAT Arterial (12/24/2019 12:18 PM PDT) + + + + + + | Component | Value | Ref Range | Performed | Pathologist | | | | | At | Signature | + + + + + + | pH, | 7.375Comment: This test | 7.350 - 7.450 | [facility] | | | Arterial, | was developed and its | | LABORATORY | | | POC | performance | | | | | | characteristics | | | | | | determined by[facility], it | | | | | | has not been cleared or | | | | | | approved by the [place] FDA. | | | | | | Clinicians should | | | | | | beadvised to consider a | | | | | | patient's signs, | | | | | | symptoms, history, and | | | | | | results of | | | | | | otherdiagnostic tests | | | | | | when interpreting | | | | | | results from these | | | | | | cartridges. | | | | + + + + + + | pCO2, | 42 | 35 - 45 mmHg | [facility] | | | Arterial | | | LABORATORY | | + + + + + + | pO2, | 203 (HH) | 80 - 105 mmHg | [facility] | | | Arterial | | | LABORATORY | | + + + + + + | Lactate, | 1.38 (H) | 0.36 - 1.25 | [facility] | | | Arterial, | | mmol/L | LABORATORY | | | POC | | | | | + + + + + + | HCO3, | 25 | 22 - 26 mmol/L | [facility] | | | Arterial | | | LABORATORY | | + + + + + + | TCO2, | 26 | 23 - 27 mEq/L | [facility] | | | Arterial, | | | LABORATORY | | | POC | | | | | + + + + + + | POC Base | 1 | 0.0 - 2.0 | [facility] | | | Deficit | | mmol/L | LABORATORY | | | mmol/L | | | | | + + + + + + | SO2, | 100 (H)Comment: Testing | 95 - 98 % | [facility] | | | Arterial, | performed at [facility];[address] | | LABORATORY | | | POC | [address];[place], [place] | | | | | | [address] | | | | + + + + + + + + | Specimen | + + | | + + + + + + + | Performing | Address | City/State/Zipcode | Phone Number | | Organization | | | | + + + + + | [facility] | [address] | [place] [address] | [phone] | + + + + + POC ISKYLEIGH, CG8, Arterial (12/24/2019 12:14 PM PDT) + + + + + + | Component | Value | Ref Range | Performed | Pathologist | | | | | At | Signature | + + + + + + | pH, | 7.358 | 7.350 - 7.450 | [facility] | | | Arterial, | | | LABORATORY | | | POC | | | | | + + + + + + | pCO2, | 44 | 35 - 45 mmHg | [facility] | | | Arterial | | | LABORATORY | | + + + + + + | pO2, | 183 (H) | 80 - 105 mmHg | [facility] | | | Arterial | | | LABORATORY | | + + + + + + | HCO3, | 25 | 22 - 26 mmol/L | [facility] | | | Arterial | | | LABORATORY | | + + + + + + | TCO2, | 26 | 23 - 27 mEq/L | [facility] | | | Arterial, | | | LABORATORY | | | POC | | | | | + + + + + + | POC Base | 1 | 0.0 - 2.0 | [facility] | | | Deficit | | mmol/L | LABORATORY | | | mmol/L | | | | | + + + + + + | SO2, | 100 (H) | 95 - 98 % | [facility] | | | Arterial, | | | LABORATORY | | | POC | | | | | + + + + + + | Sodium, POC | 137 | 135 - 145 mEq/L | [facility] | | | | | | LABORATORY | | + + + + + + | Potassium, | 4.5 | 3.5 - 5.0 mEq/L | [facility] | | | POC | | | LABORATORY | | + + + + + + | Ionized | 1.17 | 1.12 - 1.32 | [facility] | | | Calcium, | | mmol/L | LABORATORY | | | POC | | | | | + + + + + + | Glucose, | 122 (H) | 65 - 99 mg/dL | [facility] | | | POC | | | LABORATORY | | + + + + + + | Hematocrit, | 23 (LL) | 40.0 - 50.0 % | [facility] | | | POC | | | LABORATORY | | + + + + + + | Hemoglobin, | 7.8 (LL)Comment: Testing | 13.7 - 16.7 | [facility] | | | POC | performed at [facility];888 | g/dL | LABORATORY | | | | [address];[place] | | | | | | [address] | | | | + + + + + + + + | Specimen | + + | | + + + + + + + | Performing | Address | City/State/Zipcode | Phone Number | | Organization | | | | + + + + + | [facility] | [address] | [place] [address] | [phone] | + + + + + POC CG 4, ISTAT Arterial (12/24/2019 11:44 AM PDT) + + + + + + | Component | Value | Ref Range | Performed | Pathologist | | | | | At | Signature | + + + + + + | pH, | 7.371Comment: This test | 7.350 - 7.450 | [facility] | | | Arterial, | was developed and its | | LABORATORY | | | POC | performance | | | | | | characteristics | | | | | | determined [facility], it | | | | | | has not been cleared or | | | | | | approved by the [place] FDA. | | | | | | Clinicians should | | | | | | beadvised to consider a | | | | | | patient's signs, | | | | | | symptoms, history, and | | | | | | results of | | | | | | otherdiagnostic tests | | | | | | when interpreting | | | | | | results from these | | | | | | cartridges. | | | | + + + + + + | pCO2, | 44 | 35 - 45 mmHg | [facility] | | | Arterial | | | LABORATORY | | + + + + + + | pO2, | 268 (HH) | 80 - 105 mmHg | [facility] | | | Arterial | | | LABORATORY | | + + + + + + | Lactate, | 1.34 (H) | 0.36 - 1.25 | [facility] | | | Arterial, | | mmol/L | LABORATORY | | | POC | | | | | + + + + + + | HCO3, | 25 | 22 - 26 mmol/L | [facility] | | | Arterial | | | LABORATORY | | + + + + + + | TCO2, | 27 | 23 - 27 mEq/L | [facility] | | | Arterial, | | | LABORATORY | | | POC | | | | | + + + + + + | Base | 0 | 0 - 3 mEq/L | [facility] | | | Excess, POC | | | LABORATORY | | + + + + + + | SO2, | 100 (H)Comment: Testing | 95 - 98 % | [facility] | | | Arterial, | performed at [facility];[address] | | LABORATORY | | | POC | [address];[place], [place] | | | | | | [address] | | | | + + + + + + + + | Specimen | + + | | + + + + + + + | Performing | Address | City/State/Zipcode | Phone Number | | Organization | | | | + + + + + | [facility] | [address] | [place] [address] | [phone] | + + + + + POC RANDY CG8, Arterial (12/24/2019 11:40 AM PDT) + + + + + + | Component | Value | Ref Range | Performed | Pathologist | | | | | At | Signature | + + + + + + | pH, | 7.344 (L) | 7.350 - 7.450 | [facility] | | | Arterial, | | | LABORATORY | | | POC | | | | | + + + + + + | pCO2, | 47 (H) | 35 - 45 mmHg | [facility] | | | Arterial | | | LABORATORY | | + + + + + + | pO2, | 276 (HH) | 80 - 105 mmHg | [facility] | | | Arterial | | | LABORATORY | | + + + + + + | HCO3, | 25 | 22 - 26 mmol/L | [facility] | | | Arterial | | | LABORATORY | | + + + + + + | TCO2, | 27 | 23 - 27 mEq/L | [facility] | | | Arterial, | | | LABORATORY | | | POC | | | | | + + + + + + | Base | 0 | 0 - 3 mEq/L | [facility] | | | Excess, POC | | | LABORATORY | | + + + + + + | SO2, | 100 (H) | 95 - 98 % | [facility] | | | Arterial, | | | LABORATORY | | | POC | | | | | + + + + + + | Sodium, POC | 134 (L) | 135 - 145 mEq/L | [facility] | | | | | | LABORATORY | | + + + + + + | Potassium, | 5.0 | 3.5 - 5.0 mEq/L | [facility] | | | POC | | | LABORATORY | | + + + + + + | Ionized | 1.40 (H) | 1.12 - 1.32 | [facility] | | | Calcium, | | mmol/L | LABORATORY | | | POC | | | | | + + + + + + | Glucose, | 123 (H) | 65 - 99 mg/dL | [facility] | | | POC | | | LABORATORY | | + + + + + + | Hematocrit, | 22 (LL) | 40.0 - 50.0 % | [facility] | | | POC | | | LABORATORY | | + + + + + + | Hemoglobin, | 7.5 (LL)Comment: Testing | 13.7 - 16.7 | [facility] | | | POC | performed at [facility];888 | g/dL | LABORATORY | | | | [address];[place] | | | | | | [address] | | | | + + + + + + + + | Specimen | + + | | + + + + + + + | Performing | Address | City/State/Zipcode | Phone Number | | Organization | | | | + + + + + | [facility] | [address] | [place] [address] | [phone] | + + + + + POC ISTAT, CG8, Arterial (12/24/2019 11:09 AM PDT) + + + + + + | Component | Value | Ref Range | Performed | Pathologist | | | | | At | Signature | + + + + + + | pH, | 7.414 | 7.350 - 7.450 | [facility] | | | Arterial, | | | LABORATORY | | | POC | | | | | + + + + + + | pCO2, | 41 | 35 - 45 mmHg | [facility] | | | Arterial | | | LABORATORY | | + + + + + + | pO2, | 281 (HH) | 80 - 105 mmHg | [facility] | | | Arterial | | | LABORATORY | | + + + + + + | HCO3, | 26 | 22 - 26 mmol/L | [facility] | | | Arterial | | | LABORATORY | | + + + + + + | TCO2, | 27 | 23 - 27 mEq/L | [facility] | | | Arterial, | | | LABORATORY | | | POC | | | | | + + + + + + | Base | 1 | 0 - 3 mEq/L | [facility] | | | Excess, POC | | | LABORATORY | | + + + + + + | SO2, | 100 (H) | 95 - 98 % | [facility] | | | Arterial, | | | LABORATORY | | | POC | | | | | + + + + + + | Sodium, POC | 136 | 135 - 145 mEq/L | [facility] | | | | | | LABORATORY | | + + + + + + | Potassium, | 4.8 | 3.5 - 5.0 mEq/L | [facility] | | | POC | | | LABORATORY | | + + + + + + | Ionized | 1.03 (L) | 1.12 - 1.32 | [facility] | | | Calcium, | | mmol/L | LABORATORY | | | POC | | | | | + + + + + + | Glucose, | 138 (H) | 65 - 99 mg/dL | [facility] | | | POC | | | LABORATORY | | + + + + + + | Hematocrit, | 23 (LL) | 40.0 - 50.0 % | [facility] | | | POC | | | LABORATORY | | + + + + + + | Hemoglobin, | 7.8 (LL)Comment: Testing | 13.7 - 16.7 | [facility] | | | POC | performed at [facility];[address] | g/dL | LABORATORY | | | | [address];[place], [place] | | | | | | [address] | | | | + + + + + + + + | Specimen | + + | | + + + + + + + | Performing | Address | City/State/Zipcode | Phone Number | | Organization | | | | + + + + + | [facility] | [address] | [place] [address] | [phone] | + + + + + POC CG 4, ISTAT Arterial (12/24/2019 10:42 AM PDT) + + + + + + | Component | Value | Ref Range | Performed | Pathologist | | | | | At | Signature | + + + + + + | pH, | 7.364Comment: This test | 7.350 - 7.450 | [facility] | | | Arterial, | was developed and its | | LABORATORY | | | POC | performance | | | | | | characteristics | | | | | | determined by[facility], it | | | | | | has not been cleared or | | | | | | approved by the [place] FDA. | | | | | | Clinicians should | | | | | | beadvised to consider a | | | | | | patient's signs, | | | | | | symptoms, history, and | | | | | | results of | | | | | | otherdiagnostic tests | | | | | | when interpreting | | | | | | results from these | | | | | | cartridges. | | | | + + + + + + | pCO2, | 46 (H) | 35 - 45 mmHg | [facility] | | | Arterial | | | LABORATORY | | + + + + + + | pO2, | 291 (HH) | 80 - 105 mmHg | [facility] | | | Arterial | | | LABORATORY | | + + + + + + | Lactate, | 1.23 | 0.36 - 1.25 | [facility] | | | Arterial, | | mmol/L | LABORATORY | | | POC | | | | | + + + + + + | HCO3, | 26 | 22 - 26 mmol/L | [facility] | | | Arterial | | | LABORATORY | | + + + + + + | TCO2, | 27 | 23 - 27 mEq/L | [facility] | | | Arterial, | | | LABORATORY | | | POC | | | | | + + + + + + | Base | 1 | 0 - 3 mEq/L | [facility] | | | Excess, POC | | | LABORATORY | | + + + + + + | SO2, | 100 (H)Comment: Testing | 95 - 98 % | [facility] | | | Arterial, | performed at [facility];[address] | | LABORATORY | | | POC | [address];[place] | | | | | | [address] | | | | + + + + + + + + | Specimen | + + | | + + + + + + + | Performing | Address | City/State/Zipcode | Phone Number | | Organization | | | | + + + + + | [facility] | [address] | [place] [address] | [phone] | + + + + + POC SHARITA PADILLA Arterial (12/24/2019 10:38 AM PDT) + + + + + + | Component | Value | Ref Range | Performed | Pathologist | | | | | At | Signature | + + + + + + | pH, | 7.350 | 7.350 - 7.450 | [facility] | | | Arterial, | | | LABORATORY | | | POC | | | | | + + + + + + | pCO2, | 47 (H) | 35 - 45 mmHg | [facility] | | | Arterial | | | LABORATORY | | + + + + + + | pO2, | 314 (HH) | 80 - 105 mmHg | [facility] | | | Arterial | | | LABORATORY | | + + + + + + | HCO3, | 26 | 22 - 26 mmol/L | [facility] | | | Arterial | | | LABORATORY | | + + + + + + | TCO2, | 27 | 23 - 27 mEq/L | [facility] | | | Arterial, | | | LABORATORY | | | POC | | | | | + + + + + + | Base | 0 | 0 - 3 mEq/L | [facility] | | | Excess, POC | | | LABORATORY | | + + + + + + | SO2, | 100 (H) | 95 - 98 % | [facility] | | | Arterial, | | | LABORATORY | | | POC | | | | | + + + + + + | Sodium, POC | 136 | 135 - 145 mEq/L | [facility] | | | | | | LABORATORY | | + + + + + + | Potassium, | 4.2 | 3.5 - 5.0 mEq/L | [facility] | | | POC | | | LABORATORY | | + + + + + + | Ionized | 0.95 (L) | 1.12 - 1.32 | [facility] | | | Calcium, | | mmol/L | LABORATORY | | | POC | | | | | + + + + + + | Glucose, | 159 (H) | 65 - 99 mg/dL | [facility] | | | POC | | | LABORATORY | | + + + + + + | Hematocrit, | 24 (L) | 40.0 - 50.0 % | [facility] | | | POC | | | LABORATORY | | + + + + + + | Hemoglobin, | 8.2 (L)Comment: Testing | 13.7 - 16.7 | [facility] | | | POC | performed at [facility];888 | g/dL | LABORATORY | | | | [address];[place], [place] | | | | | | [address] | | | | + + + + + + + + | Specimen | + + | | + + + + + + + | Performing | Address | City/State/Zipcode | Phone Number | | Organization | | | | + + + + + | [facility] | [address] | [place] [address] | [phone] | + + + + + Surgical Pathology Exam (12/24/2019 10:24 AM PDT) + + | Specimen | + + | Tissue - Heart valve | | tissue (specimen) | + + + + + | Narrative | Performed At | + + + | SPECIMEN(S): A | [facility] | | HEART VALVE, MITRAL SPECIMEN SOURCE:A. HEART VALVE, MITRAL CLINICAL | [facility] | | HISTORY:Replacement/repair valve, mitral. 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 Adherent | | | fibrinous material is present on the surface containing innumerable | | | bacterial organisms. MICROSCOPIC EXAMINATION:Histologic sections of | | | all submitted blocks are examined by light microscopy. These | | | findings, together with the gross examination, support the pathologic | | | diagnosis. GROSS DESCRIPTION:The specimen, labeled "RC, mitral valve | | | for pathology and culture," is received in formalin and consists of | | | two pieces of heart valve with attached segments of chordae tendineae | | | (3.0 x 2.8 x 0.4 cm,and 3.9 x 2.1 x 0.8 cm). The smaller piece is | | | white-nava and pliable with brown-nava, slightly hemorrhagic nodular | | | lesions. The larger piece is minimally calcified, and thickened (0.6 | | | cm thickness)with a slightly friable, brown-brothers to hemorrhagic area. | | | Marine Consultant sections of each are submitted in cassette (A1).AC | | | (under the direct supervision of a pathologist) The Gross Description | | | was prepared using a voice recognition system. The report was | | | reviewed for accuracy; however, sound-alike word errors, addition | | | and/or deletions may occur. If there is anyquestion about this | | | report, please contact Client Services. PERFORMING LABORATORY:The | | | professional interpretation was performed by [email or web address], | | | [address] (Medical | | | Director: Josh Bob M.D.; CLIA#: [id number]).The technical | | | component was performed by [email or web address] [email or web address], [address] [place] [address], | | | [place] [address] (Cartridge Loader: Fadumo Triana MD; CLIA# | | | [id number]). Diagnostician: Josh Bob | | | MDPathologistElectronically Signed 12/25/2019 | | | | | |Diagnostician: Josh Bbo MD | | |Pathologist | | |Electronically Signed 12/25/2019 | | | | | | | | + + + + +---------+ + + | Performing | Address | City/State/Zipcode | Phone Number | | Organization | | | | + +---------+ + + | [facility] | | | | | [facility] | | | | + +---------+ + + Culture, Tissue, Smear, with Anaerobes (12/24/2019 10:20 AM PDT) + + + + + + | Component | Value | Ref Range | Performed | Pathologist | | | | | At | Signature | + + + + + + | Gram Stain | NO CELLS OR ORGANISMS | | [facility] | | | Result | SEEN | | LABORATORY | | + + + + + + | RESULT | NO GROWTH 4 DAYS | | [facility] | | | | | | LABORATORY | | + + + + + + | RESULT | Testing performed at | | [facility] | | | | [facility], [address] | | LABORATORY | | | | [place], [place], [place] | | | | | | [id number]: Testing | | | | | | performed at [facility], [address], | | | | | | [place] [address] | | | | + + + + + + + + | Specimen | + + | Tissue - Heart valve | | tissue (specimen) | + + + + + + + | Performing | Address | City/State/Zipcode | Phone Number | | Organization | | | | + + + + + | [facility] | [address] | [place] [address] | [phone] | + + + + + POC ISTAT, CG8, Arterial (12/24/2019 10:08 AM PDT) + + + + + + | Component | Value | Ref Range | Performed | Pathologist | | | | | At | Signature | + + + + + + | pH, | 7.319 (L) | 7.350 - 7.450 | [facility] | | | Arterial, | | | LABORATORY | | | POC | | | | | + + + + + + | pCO2, | 52 (H) | 35 - 45 mmHg | [facility] | | | Arterial | | | LABORATORY | | + + + + + + | pO2, | 363 (HH) | 80 - 105 mmHg | [facility] | | | Arterial | | | LABORATORY | | + + + + + + | HCO3, | 27 (H) | 22 - 26 mmol/L | [facility] | | | Arterial | | | LABORATORY | | + + + + + + | TCO2, | 28 (H) | 23 - 27 mEq/L | [facility] | | | Arterial, | | | LABORATORY | | | POC | | | | | + + + + + + | Base | 1 | 0 - 3 mEq/L | [facility] | | | Excess, POC | | | LABORATORY | | + + + + + + | SO2, | 100 (H) | 95 - 98 % | [facility] | | | Arterial, | | | LABORATORY | | | POC | | | | | + + + + + + | Sodium, POC | 135 | 135 - 145 mEq/L | [facility] | | | | | | LABORATORY | | + + + + + + | Potassium, | 4.2 | 3.5 - 5.0 mEq/L | [facility] | | | POC | | | LABORATORY | | + + + + + + | Ionized | 1.07 (L) | 1.12 - 1.32 | [facility] | | | Calcium, | | mmol/L | LABORATORY | | | POC | | | | | + + + + + + | Glucose, | 150 (H) | 65 - 99 mg/dL | [facility] | | | POC | | | LABORATORY | | + + + + + + | Hematocrit, | 20 (LL) | 40.0 - 50.0 % | [facility] | | | POC | | | LABORATORY | | + + + + + + | Hemoglobin, | 6.8 (LL)Comment: Testing | 13.7 - 16.7 | [facility] | | | POC | performed at [facility];888 | g/dL | LABORATORY | | | | [address]it Jin;[place], [place] | | | | | | [address] | | | | + + + + + + + + | Specimen | + + | | + + + + + + + | Performing | Address | City/State/Zipcode | Phone Number | | Organization | | | | + + + + + | [facility] | [address] | [place] [address] | [phone] | + + + + + POC ISTAT, CG8, Venous (12/24/2019 10:04 AM PDT) + + + + + + | Component | Value | Ref Range | Performed | Pathologist | | | | | At | Signature | + + + + + + | pH, Venous, | 7.283 (L) | 7.310 - 7.410 | [facility] | | | POC | | | LABORATORY | | + + + + + + | PCO2, | 58 (H) | 41 - 51 mmHG | [facility] | | | Venous, POC | | | LABORATORY | | + + + + + + | pO2, Venous | 54 (H) | 30 - 40 mmHG | [facility] | | | | | | LABORATORY | | + + + + + + | HCO3, | 27 | 23 - 28 mmol/L | [facility] | | | Venous | | | LABORATORY | | + + + + + + | TCO2, POC | 29 | 24 - 29 mEq/L | [facility] | | | | | | LABORATORY | | + + + + + + | Base | 1 | 0 - 3 mEq/L | [facility] | | | Excess, POC | | | LABORATORY | | + + + + + + | POC | 83.0 | 60 - 85 % | [facility] | | | SO2.BLDV.QN | | | LABORATORY | | | .(%) | | | | | + + + + + + | Sodium, POC | 136 | 135 - 145 mEq/L | [facility] | | | | | | LABORATORY | | + + + + + + | Potassium, | 4.2 | 3.5 - 5.0 mEq/L | [facility] | | | POC | | | LABORATORY | | + + + + + + | Ionized | 1.08 (L) | 1.12 - 1.32 | [facility] | | | Calcium, | | mmol/L | LABORATORY | | | POC | | | | | + + + + + + | Glucose, | 148 (H) | 65 - 99 mg/dL | [facility] | | | POC | | | LABORATORY | | + + + + + + | Hematocrit, | 20 (LL) | 40.0 - 50.0 % | [facility] | | | POC | | | LABORATORY | | + + + + + + | Hemoglobin, | 6.8 (LL)Comment: Testing | 13.7 - 16.7 | [facility] | | | POC | performed at [facility];888 | g/dL | LABORATORY | | | | [address]it Jin;[place] | | | | | | [address] | | | | + + + + + + + + | Specimen | + + | | + + + + + + + | Performing | Address | City/State/Zipcode | Phone Number | | Organization | | | | + + + + + | [facility] | [address] | [place] [address] | [phone] | + + + + + POC SHARITA PADILLA Arterial (12/24/2019 9:39 AM PDT) + + + + + + | Component | Value | Ref Range | Performed | Pathologist | | | | | At | Signature | + + + + + + | pH, | 7.390 | 7.350 - 7.450 | [facility] | | | Arterial, | | | LABORATORY | | | POC | | | | | + + + + + + | pCO2, | 47 (H) | 35 - 45 mmHg | [facility] | | | Arterial | | | LABORATORY | | + + + + + + | pO2, | 314 (HH) | 80 - 105 mmHg | [facility] | | | Arterial | | | LABORATORY | | + + + + + + | HCO3, | 28 (H) | 22 - 26 mmol/L | [facility] | | | Arterial | | | LABORATORY | | + + + + + + | TCO2, | 30 (H) | 23 - 27 mEq/L | [facility] | | | Arterial, | | | LABORATORY | | | POC | | | | | + + + + + + | Base | 3 | 0 - 3 mEq/L | [facility] | | | Excess, POC | | | LABORATORY | | + + + + + + | SO2, | 100 (H) | 95 - 98 % | [facility] | | | Arterial, | | | LABORATORY | | | POC | | | | | + + + + + + | Sodium, POC | 132 (L) | 135 - 145 mEq/L | [facility] | | | | | | LABORATORY | | + + + + + + | Potassium, | 3.6 | 3.5 - 5.0 mEq/L | [facility] | | | POC | | | LABORATORY | | + + + + + + | Ionized | 0.97 (L) | 1.12 - 1.32 | [facility] | | | Calcium, | | mmol/L | LABORATORY | | | POC | | | | | + + + + + + | Glucose, | 145 (H) | 65 - 99 mg/dL | [facility] | | | POC | | | LABORATORY | | + + + + + + | Hematocrit, | 21 (LL) | 40.0 - 50.0 % | [facility] | | | POC | | | LABORATORY | | + + + + + + | Hemoglobin, | 7.1 (LL)Comment: Testing | 13.7 - 16.7 | [facility] | | | POC | performed at [facility];888 | g/dL | LABORATORY | | | | [address];[place], [place] | | | | | | [address] | | | | + + + + + + + + | Specimen | + + | | + + + + + + + | Performing | Address | City/State/Zipcode | Phone Number | | Organization | | | | + + + + + | [facility] | [address] | [place] [address] | [phone] | + + + + + POC ISTAT, CG8, Arterial (12/24/2019 9:16 AM PDT) + + + + + + | Component | Value | Ref Range | Performed | Pathologist | | | | | At | Signature | + + + + + + | pH, | 7.399 | 7.350 - 7.450 | [facility] | | | Arterial, | | | LABORATORY | | | POC | | | | | + + + + + + | pCO2, | 41 | 35 - 45 mmHg | [facility] | | | Arterial | | | LABORATORY | | + + + + + + | pO2, | 263 (HH) | 80 - 105 mmHg | [facility] | | | Arterial | | | LABORATORY | | + + + + + + | HCO3, | 25 | 22 - 26 mmol/L | [facility] | | | Arterial | | | LABORATORY | | + + + + + + | TCO2, | 26 | 23 - 27 mEq/L | [facility] | | | Arterial, | | | LABORATORY | | | POC | | | | | + + + + + + | Base | 0 | 0 - 3 mEq/L | [facility] | | | Excess, POC | | | LABORATORY | | + + + + + + | SO2, | 100 (H) | 95 - 98 % | [facility] | | | Arterial, | | | LABORATORY | | | POC | | | | | + + + + + + | Sodium, POC | 135 | 135 - 145 mEq/L | [facility] | | | | | | LABORATORY | | + + + + + + | Potassium, | 3.6 | 3.5 - 5.0 mEq/L | [facility] | | | POC | | | LABORATORY | | + + + + + + | Ionized | 1.12 | 1.12 - 1.32 | [facility] | | | Calcium, | | mmol/L | LABORATORY | | | POC | | | | | + + + + + + | Glucose, | 142 (H) | 65 - 99 mg/dL | [facility] | | | POC | | | LABORATORY | | + + + + + + | Hematocrit, | 24 (L) | 40.0 - 50.0 % | [facility] | | | POC | | | LABORATORY | | + + + + + + | Hemoglobin, | 8.2 (L)Comment: Testing | 13.7 - 16.7 | [facility] | | | POC | performed at [facility];888 | g/dL | LABORATORY | | | | [address]it [address];[place], [place] | | | | | | [address] | | | | + + + + + + + + | Specimen | + + | | + + + + + + + | Performing | Address | City/State/Zipcode | Phone Number | | Organization | | | | + + + + + | [facility] | [address] | [place] [address] | [phone] | + + + + + POC CG 4, ISTAT Arterial (12/24/2019 8:37 AM PDT) + + + + + + | Component | Value | Ref Range | Performed | Pathologist | | | | | At | Signature | + + + + + + | pH, | 7.447Comment: This test | 7.350 - 7.450 | [facility] | | | Arterial, | was developed and its | | LABORATORY | | | POC | performance | | | | | | characteristics | | | | | | determined by[employer], it | | | | | | has not been cleared or | | | | | | approved by the [place] FDA. | | | | | | Clinicians should | | | | | | beadvised to consider a | | | | | | patient's signs, | | | | | | symptoms, history, and | | | | | | results of | | | | | | otherdiagnostic tests | | | | | | when interpreting | | | | | | results from these | | | | | | cartridges. | | | | + + + + + + | pCO2, | 34 (L) | 35 - 45 mmHg | [facility] | | | Arterial | | | LABORATORY | | + + + + + + | pO2, | 218 (HH) | 80 - 105 mmHg | [facility] | | | Arterial | | | LABORATORY | | + + + + + + | Lactate, | 0.72 | 0.36 - 1.25 | [facility] | | | Arterial, | | mmol/L | LABORATORY | | | POC | | | | | + + + + + + | HCO3, | 24 | 22 - 26 mmol/L | [facility] | | | Arterial | | | LABORATORY | | + + + + + + | TCO2, | 25 | 23 - 27 mEq/L | [facility] | | | Arterial, | | | LABORATORY | | | POC | | | | | + + + + + + | Base | 0 | 0 - 3 mEq/L | [facility] | | | Excess, POC | | | LABORATORY | | + + + + + + | SO2, | 100 (H)Comment: Testing | 95 - 98 % | [facility] | | | Arterial, | performed at [facility];[address] | | LABORATORY | | | POC | [facility], [place] | | | | | | [address] | | | | + + + + + + + + | Specimen | + + | | + + + + + + + | Performing | Address | City/State/Zipcode | Phone Number | | Organization | | | | + + + + + | [facility] | [address] | [place] [address] | [phone] | + + + + + POC ISTAT, CG8, Arterial (12/24/2019 8:34 AM PDT) + + + + + + | Component | Value | Ref Range | Performed | Pathologist | | | | | At | Signature | + + + + + + | pH, | 7.441 | 7.350 - 7.450 | [facility] | | | Arterial, | | | LABORATORY | | | POC | | | | | + + + + + + | pCO2, | 35 | 35 - 45 mmHg | [facility] | | | Arterial | | | LABORATORY | | + + + + + + | pO2, | 220 (HH) | 80 - 105 mmHg | [facility] | | | Arterial | | | LABORATORY | | + + + + + + | HCO3, | 24 | 22 - 26 mmol/L | [facility] | | | Arterial | | | LABORATORY | | + + + + + + | TCO2, | 25 | 23 - 27 mEq/L | [facility] | | | Arterial, | | | LABORATORY | | | POC | | | | | + + + + + + | Base | 0 | 0 - 3 mEq/L | [facility] | | | Excess, POC | | | LABORATORY | | + + + + + + | SO2, | 100 (H) | 95 - 98 % | [facility] | | | Arterial, | | | LABORATORY | | | POC | | | | | + + + + + + | Sodium, POC | 135 | 135 - 145 mEq/L | [facility] | | | | | | LABORATORY | | + + + + + + | Potassium, | 3.8 | 3.5 - 5.0 mEq/L | [facility] | | | POC | | | LABORATORY | | + + + + + + | Ionized | 1.14 | 1.12 - 1.32 | [facility] | | | Calcium, | | mmol/L | LABORATORY | | | POC | | | | | + + + + + + | Glucose, | 133 (H) | 65 - 99 mg/dL | [facility] | | | POC | | | LABORATORY | | + + + + + + | Hematocrit, | 27 (L) | 40.0 - 50.0 % | [facility] | | | POC | | | LABORATORY | | + + + + + + | Hemoglobin, | 9.2 (L)Comment: Testing | 13.7 - 16.7 | [facility] | | | POC | performed at [facility];888 | g/dL | LABORATORY | | | | [address] Jin;[place] | | | | | | [address] | | | | + + + + + + + + | Specimen | + + | | + + + + + + + | Performing | Address | City/State/Zipcode | Phone Number | | Organization | | | | + + + + + | [facility] | [address] | [place] [address] | [phone] | + + + + + POC Glucose (12/24/2019 7:22 AM PDT) + + + + + + | Component | Value | Ref Range | Performed | Pathologist | | | | | At | Signature | + + + + + + | Glucose, | 119 (H)Comment: Testing | 65 - 99 mg/dL | [facility] | | | POC | performed at [facility];[address] | | LABORATORY | | | | [address];[place], [place] | | | | | | [address] | | | | + + + + + + + + | Specimen | + + | | + + + + + + + | Performing | Address | City/State/Zipcode | Phone Number | | Organization | | | | + + + + + | [facility] | [address] | [place] [address] | [phone] | + + + + + Red Blood Cells (RBC) - Crossmatch and Hold (12/24/2019 6:59 AM PDT) + + + + + + | Component | Value | Ref Range | Performed | Pathologist | | | | | At | Signature | + + + + + + | Product | RED CELL GROUP | | [facility] | | | Code | | | LABORATORY | | + + + + + + | Units | 4 | | [facility] | | | ordered | | | LABORATORY | | + + + + + + | BLOOD BANK | ORDER RECEIVED IN BLOOD | | [facility] | | | COMMENT | BANK. | | LABORATORY | | + + + + + + | BLOOD BANK | Testing performed at | | [facility] | | | COMMENT | [facility];[address] | | LABORATORY | | | | [address] [address] | | | | + + + + + + + + | Specimen | + + | | + + + + + + + | Performing | Address | City/State/Zipcode | Phone Number | | Organization | | | | + + + + + | [facility] | [address] | [place] [address] | [phone] | + + + + + Coronavirus (COVID-19) NAAT (12/24/2019 6:46 AM PDT) + + + + + + | Component | Value | Ref Range | Performed | Pathologist | | | | | At | Signature | + + + + + + | SARS-CoV-2, | NEGATIVEComment: This | NEG | [facility] | | | NAAT | test was developed and | | LABORATORY | | | (COVID-19) | its performance | | | | | | characteristics | | | | | | determined by[employer]. It | | | | | | has not been cleared or | | | | | | approved by the [place] FDA. | | | | | | This test has | | | | | | beenauthorized by FDA | | | | | | under an Emergency Use | | | | | | Authorization (EUA). | | | | | | Clinicians shouldbe | | | | | | advised to consider a | | | | | | patients signs, | | | | | | symptoms, history, and | | | | | | results ofother | | | | | | diagnostic tests when | | | | | | interpreting | | | | | | results.Testing | | | | | | performed at [facility] | | | | | | [address] Ch[address];[place], [place] | | | | | | [address] | | | | + + + + + + + + | Specimen | + + | Tissue - Entire | | nasopharynx (body | | structure) | + + + + + + + | Performing | Address | City/State/Zipcode | Phone Number | | Organization | | | | + + + + + | [facility] | [address] | [place] [address] | [phone] | + + + + + Basic Metabolic Panel (12/24/2019 4:51 AM PDT) + + + + + + | Component | Value | Ref Range | Performed | Pathologist | | | | | At | Signature | + + + + + + | Na | 135 | 135 - 145 | [facility] | | | | | mmol/L | LABORATORY | | + + + + + + | K | 3.7 | 3.5 - 4.9 | [facility] | | | | | mmol/L | LABORATORY | | + + + + + + | Cl | 103 | 99 - 109 mmol/L | [facility] | | | | | | LABORATORY | | + + + + + + | CO2 | 24 | 23 - 32 mmol/L | [facility] | | | | | | LABORATORY | | + + + + + + | Anion Gap | 12 | 5 - 20 mmol/L | [facility] | | | | | | LABORATORY | | + + + + + + | Glucose | 109 (H) | 65 - 99 mg/dL | [facility] | | | | | | LABORATORY | | + + + + + + | BUN | 17 | 8 - 25 mg/dL | [facility] | | | | | | LABORATORY | | + + + + + + | Creatinine | 1.00 | 0.70 - 1.30 | [facility] | | | | | mg/dL | LABORATORY | | + + + + + + | BUN/Creatin | 17 | | [facility] | | | ine Ratio | | | LABORATORY | | + + + + + + | Calcium | 8.4 (L) | 8.5 - 10.5 | [facility] | | | | | mg/dL | LABORATORY | | + + + + + + | Estimated | >60Comment: GFR <60: | >60 | [facility] | | | GFR | CHRONIC KIDNEY DISEASE, | mL/min/1.73m2 | LABORATORY | | | | IF FOUND OVER A 3 MONTH | | | | | | PERIOD.GFR <15: KIDNEY | | | | | | FAILURE.FOR | | | | | | AMERICANS, MULTIPLY THE | | | | | | CALCULATED GFR BY | | | | | | 1.210.This eGFR is | | | | | | calculated using the | | | | | | MDRD IDMS traceable | | | | | | equation.Testing | | | | | | performed at [facility], [address] | | | | | [facility], | | | | | | [place] [address] | | | | + + + + + + + + | Specimen | + + | Blood | + + + + + + + | Performing | Address | City/State/Zipcode | Phone Number | | Organization | | | | + + + + + | [facility] | [address] | [place] [address] | [phone] | + + + + + CBC with Differential (12/24/2019 4:51 AM PDT) + + + + + + | Component | Value | Ref Range | Performed | Pathologist | | | | | At | Signature | + + + + + + | WBC | 10.42 | 3.80 - 11.00 | [facility] | | | | | K/uL | LABORATORY | | + + + + + + | Red Blood | 3.31 (L) | 4.20 - 5.70 | [facility] | | | Cells | | M/uL | LABORATORY | | + + + + + + | Hemoglobin | 9.0 (L) | 13.2 - 17.0 | [facility] | | | | | g/dL | LABORATORY | | + + + + + + | Hematocrit | 28.3 (L) | 39.0 - 50.0 % | [facility] | | | | | | LABORATORY | | + + + + + + | MCV | 85.5 | 80.0 - 100.0 fl | [facility] | | | | | | LABORATORY | | + + + + + + | MCH | 27.2 | 27.0 - 34.0 pg | [facility] | | | | | | LABORATORY | | + + + + + + | MCHC | 31.8 (L) | 32.0 - 35.5 | [facility] | | | | | g/dL | LABORATORY | | + + + + + + | RDW-SD | 53.6 (H) | 37 - 53 fl | [facility] | | | | | | LABORATORY | | + + + + + + | Platelet | 344 | 150 - 400 K/uL | [facility] | | | Count | | | LABORATORY | | + + + + + + | MPV | 10.2Comment: NO NORMAL | fl | [facility] | | | | RANGE ESTABLISHED | | LABORATORY | | + + + + + + | Diff Type | AUTOMATED | | [facility] | | | | | | LABORATORY | | + + + + + + | % nRBC | 0.0 | 0 /100WBC | [facility] | | | | | | LABORATORY | | + + + + + + | % | 78.30 | % | [facility] | | | Neutrophils | | | LABORATORY | | + + + + + + | IMMATURE | 0.60 | % | [facility] | | | GRANULOCYTE | | | LABORATORY | | + + + + + + | % | 14.20 | % | [facility] | | | Lymphocytes | | | LABORATORY | | + + + + + + | Monocyte % | 6.10 | % | [facility] | | | | | | LABORATORY | | + + + + + + | Eosinophils | 0.70 | % | [facility] | | | % | | | LABORATORY | | + + + + + + | Basophils % | 0.10 | % | [facility] | | | | | | LABORATORY | | + + + + + + | Neutrophils | 8.16 (H) | 1.90 - 7.40 | [facility] | | | , Absolute | | K/uL | LABORATORY | | + + + + + + | IMMATURE | 0.06Comment: NOTE NEW | 0.00 - 0.07 | [facility] | | | GRANS AB | REFERENCE RANGE | K/uL | LABORATORY | | + + + + + + | Absolute | 1.48 | 1.00 - 3.90 | [facility] | | | Lymphocytes | | K/uL | LABORATORY | | + + + + + + | Absolute | 0.64 | 0.00 - 0.80 | [facility] | | | Monocytes | | K/uL | LABORATORY | | + + + + + + | Eosinophils | 0.07 | 0.00 - 0.50 | [facility] | | | , Absolute | | K/uL | LABORATORY | | + + + + + + | Basophils, | 0.01Comment: Testing | 0.00 - 0.10 | [facility] | | | Absolute | performed at [facility], [address] | K/uL | LABORATORY | | | | [address], | | | | | | [place] [address] | | | | + + + + + + + + | Specimen | + + | Blood | + + + + + + + | Performing | Address | City/State/Zipcode | Phone Number | | Organization | | | | + + + + + | [facility] | [address] | [place] [address] | [phone] | + + + + + Urinalysis with Microscopic with Culture if Indicated (12/23/2019 3:42 PM PDT) + + + + + + | Component | Value | Ref Range | Performed | Pathologist | | | | | At | Signature | + + + + + + | Color, UA | YELLOW | | [facility] | | | | | | LABORATORY | | + + + + + + | Clarity, | HAZY | | [facility] | | | Urine | | | LABORATORY | | + + + + + + | Specific | 1.015 | 1.002 - 1.030 | [facility] | | | [place], | | | LABORATORY | | | Urine | | | | | + + + + + + | Leukocyte | NEGATIVE | NEG | [facility] | | | esterase, | | | LABORATORY | | | UA | | | | | + + + + + + | Nitrite, UA | NEGATIVE | NEG | [facility] | | | | | | LABORATORY | | + + + + + + | Urobilinoge | NORMAL | <1.6 mg/dL | [facility] | | | n, Ur | | | LABORATORY | | + + + + + + | Protein, | 30 (A) | NEG mg/dL | [facility] | | | Urine | | | LABORATORY | | | (mg/dL) | | | | | + + + + + + | pH, Urine | 7.0 | 5.0 - 8.0 | [facility] | | | | | | LABORATORY | | + + + + + + | Blood, UA | MODERATE (A) | NEG | [facility] | | | | | | LABORATORY | | + + + + + + | Ketones, UA | NEGATIVE | NEG mg/dL | [facility] | | | | | | LABORATORY | | + + + + + + | Bilirubin, | NEGATIVE | NEG | [facility] | | | UA | | | LABORATORY | | + + + + + + | Glucose, Ur | NEGATIVE | NEG mg/dL | [facility] | | | | | | LABORATORY | | + + + + + + | WBC UA | 3-5 | 0 - 5 /hpf | [facility] | | | | | | LABORATORY | | + + + + + + | Red Blood | 6-10 | 0 - 2 /hpf | [facility] | | | Cells, | | | LABORATORY | | | Urine | | | | | + + + + + + | Squamous | 3-5 | /lpf | [facility] | | | Epithelial | | | LABORATORY | | | Cells, | | | | | | Urine | | | | | + + + + + + | Bacteria, | 1+ (A) | NONE | [facility] | | | Urine | | | LABORATORY | | + + + + + + | Mucus, | 1+Comment: Testing | | [facility] | | | Urine | performed at [facility];[address] | | LABORATORY | | | | [address];[place], [place] | | | | | | [address] | | | | + + + + + + + + | Specimen | + + | Urine | + + + + + + + | Performing | Address | City/State/Zipcode | Phone Number | | Organization | | | | + + + + + | [facility] | [address] | [place] [address] | [phone] | + + + + + XR Chest PA and Lateral (12/23/2019 9:43 AM PDT) + + | Specimen | + + | | + + + + + | Impressions | Performed At | + + + | Persistent or recurrent pulmonary venous hypertension/CHF Moderate | [facility] | | severity Final Report Signed by: Fernando Bennett Timothy | | | Sign Date/Time: 12/23/2019 9:59 AM | | + + + + + + | Narrative | Performed At | + + + | CHEST PA AND LATERAL CLINICAL INFORMATION: Preop mitral | [facility] | | surgery. COMPARISON: XR CHEST AP PORTABLE (12/22/2019); XR CHEST | | | AP PORTABLE (12/17/2019); XR CHEST AP PORTABLE (10/31/2019); | | | FINDINGS: Stable cardiomegaly, vasculopathy-without deviation midline | | | structures. Central vessels congested with venous | | | redistribution/cephalization Interstitial edema, symmetric Small | | | right basilar effusion is increased but still trace No pneumothorax | | | Stable skeleton | | + + + + + | Procedure Note | + + | Juan, [id number] - 12/23/2019 10:03 AM PDT | | CHEST PA AND LATERAL | | | | CLINICAL INFORMATION: | | Preop mitral surgery. | | | | COMPARISON: | | XR CHEST AP PORTABLE (12/22/2019); XR CHEST AP PORTABLE (12/17/2019); XR | | CHEST AP PORTABLE (10/31/2019); | | | | FINDINGS: | | Stable cardiomegaly, vasculopathy-without deviation midline structures. | | | | Central vessels congested with venous redistribution/cephalization | | Interstitial edema, symmetric | | | | Small right basilar effusion is increased but still trace | | No pneumothorax | | Stable skeleton | | | | IMPRESSION: | | Persistent or recurrent pulmonary venous hypertension/CHF | | Moderate severity | | | | | | | | Final Report Signed by: Fernando Bennett Timothy | | Sign Date/Time: 12/23/2019 9:59 AM | + + + +---------+ + + | Performing | Address | City/State/Zipcode | Phone Number | | Organization | | | | + +---------+ + + | [facility] | | | | + +---------+ + + Type and Screen (12/23/2019 8:40 AM PDT) + + + + + + | Component | Value | Ref Range | Performed | Pathologist | | | | | At | Signature | + + + + + + | ABO Rh | O POSITIVE | | [facility] | | | | | | LABORATORY | | + + + + + + | Antibody | NEGATIVE | | [facility] | | | Screen | | | LABORATORY | | + + + + + + | BB BAND | [id number] | | [facility] | | | | | | LABORATORY | | + + + + + + | UNIT # | [id number] | | [facility] | | | | | | LABORATORY | | + + + + + + | Product | LEUKODEPLETED PC | | [facility] | | | Code | | | LABORATORY | | + + + + + + | Unit | 00 | | [facility] | | | Division | | | LABORATORY | | + + + + + + | Unit Status | REL FROM ALLOC | | [facility] | | | | | | LABORATORY | | + + + + + + | Transfusion | OK TO TRANSFUSE | | [facility] | | | Status | | | LABORATORY | | + + + + + + | CROSSMATCH | COMPATIBLE | | [facility] | | | RESULT | | | LABORATORY | | + + + + + + | UNIT # | [id number] | | [facility] | | | | | | LABORATORY | | + + + + + + | Product | LEUKODEPLETED PC | | [facility] | | | Code | | | LABORATORY | | + + + + + + | Unit | 00 | | [facility] | | | Division | | | LABORATORY | | + + + + + + | Unit Status | ISSUED,FINAL | | [facility] | | | | | | LABORATORY | | + + + + + + | Transfusion | OK TO TRANSFUSE | | [facility] | | | Status | | | LABORATORY | | + + + + + + | CROSSMATCH | COMPATIBLE | | [facility] | | | RESULT | | | LABORATORY | | + + + + + + | UNIT # | [id number] | | [facility] | | | | | | LABORATORY | | + + + + + + | Product | LEUKODEPLETED PC,B | | [facility] | | | Code | | | LABORATORY | | + + + + + + | Unit | 00 | | [facility] | | | Division | | | LABORATORY | | + + + + + + | Unit Status | ISSUED,FINAL | | [facility] | | | | | | LABORATORY | | + + + + + + | Transfusion | OK TO TRANSFUSE | | [facility] | | | Status | | | LABORATORY | | + + + + + + | CROSSMATCH | COMPATIBLE | | [facility] | | | RESULT | | | LABORATORY | | + + + + + + | UNIT # | [id number] | | [facility] | | | | | | LABORATORY | | + + + + + + | Product | LEUKODEPLETED PC | | [facility] | | | Code | | | LABORATORY | | + + + + + + | Unit | 00 | | [facility] | | | Division | | | LABORATORY | | + + + + + + | Unit Status | REL FROM ALLOC | | [facility] | | | | | | LABORATORY | | + + + + + + | Transfusion | OK TO TRANSFUSE | | [facility] | | | Status | | | LABORATORY | | + + + + + + | CROSSMATCH | COMPATIBLETesting | | [facility] | | | RESULT | performed at [facility];[address] | LABORATORY | | | | [address];[place], [place] | | | | | | [address] | | | | + + + + + + + + | Specimen | + + | Blood | + + + + + + + | Performing | Address | City/State/Zipcode | Phone Number | | Organization | | | | + + + + + | [facility] | [address] | [place] [address] | [phone] | + + + + + Jennifer SWIFT (12/23/2019 8:40 AM PDT) + + + + + + | Component | Value | Ref Range | Performed | Pathologist | | | | | At | Signature | + + + + + + | INR | 1.1Comment: REFERENCE | | [facility] | | | | RANGE:0.9 - 1.2 | | LABORATORY | | | | NON-ANTICOAGULATED2.0 | | | | | | - 3.0 ALL OTHER | | | | | | THERAPEUTIC | | | | | | INDICATIONS2.5 - 3.5 | | | | | | MECHANICAL HEART VALVES, | | | | | | RECURRENT OR SYSTEMIC | | | | | | EMBOLISMTesting | | | | | | performed at [facility];[address];[place], [place] | | | | | | [address] | | | | + + + + + + + + | Specimen | + + | Blood | + + + + + + + | Performing | Address | City/State/Zipcode | Phone Number | | Organization | | | | + + + + + | [facility] | [address] | [place] [address] | [phone] | + + + + + Basic Metabolic Panel (12/23/2019 6:14 AM PDT) + + + + + + | Component | Value | Ref Range | Performed | Pathologist | | | | | At | Signature | + + + + + + | Na | 136 | 135 - 145 | [facility] | | | | | mmol/L | LABORATORY | | + + + + + + | K | 3.6 | 3.5 - 4.9 | [facility] | | | | | mmol/L | LABORATORY | | + + + + + + | Cl | 101 | 99 - 109 mmol/L | [facility] | | | | | | LABORATORY | | + + + + + + | CO2 | 25 | 23 - 32 mmol/L | [facility] | | | | | | LABORATORY | | + + + + + + | Anion Gap | 14 | 5 - 20 mmol/L | [facility] | | | | | | LABORATORY | | + + + + + + | Glucose | 118 (H) | 65 - 99 mg/dL | [facility] | | | | | | LABORATORY | | + + + + + + | BUN | 15 | 8 - 25 mg/dL | [facility] | | | | | | LABORATORY | | + + + + + + | Creatinine | 1.11 | 0.70 - 1.30 | [facility] | | | | | mg/dL | LABORATORY | | + + + + + + | BUN/Creatin | 14 | | [facility] | | | ine Ratio | | | LABORATORY | | + + + + + + | Calcium | 8.3 (L) | 8.5 - 10.5 | [facility] | | | | | mg/dL | LABORATORY | | + + + + + + | Estimated | >60Comment: GFR <60: | >60 | [facility] | | | GFR | CHRONIC KIDNEY DISEASE, | mL/min/1.73m2 | LABORATORY | | | | IF FOUND OVER A 3 MONTH | | | | | | PERIOD.GFR <15: KIDNEY | | | | | | FAILURE.FOR | | | | | | AMERICANS, MULTIPLY THE | | | | | | CALCULATED GFR BY | | | | | | 1.210.This eGFR is | | | | | | calculated using the | | | | | | MDRD IDWA traceable | | | | | | equation.Testing | | | | | | performed at [facility] | | | | | | [address];[place], [place] | | | | | | [address] | | | | + + + + + + + + | Specimen | + + | Blood | + + + + + + + | Performing | Address | City/State/Zipcode | Phone Number | | Organization | | | | + + + + + | [facility] | [address] | [place] [address] | [phone] | + + + + + CBC with Differential (12/23/2019 6:14 AM PDT) + + + + + + | Component | Value | Ref Range | Performed | Pathologist | | | | | At | Signature | + + + + + + | WBC | 11.67 (H) | 3.80 - 11.00 | [facility] | | | | | K/uL | LABORATORY | | + + + + + + | Red Blood | 3.27 (L) | 4.20 - 5.70 | [facility] | | | Cells | | M/uL | LABORATORY | | + + + + + + | Hemoglobin | 8.8 (L) | 13.2 - 17.0 | [facility] | | | | | g/dL | LABORATORY | | + + + + + + | Hematocrit | 28.1 (L) | 39.0 - 50.0 % | [facility] | | | | | | LABORATORY | | + + + + + + | MCV | 85.9 | 80.0 - 100.0 fl | [facility] | | | | | | LABORATORY | | + + + + + + | MCH | 26.9 (L) | 27.0 - 34.0 pg | [facility] | | | | | | LABORATORY | | + + + + + + | MCHC | 31.3 (L) | 32.0 - 35.5 | [facility] | | | | | g/dL | LABORATORY | | + + + + + + | RDW-SD | 53.1 (H) | 37 - 53 fl | [facility] | | | | | | LABORATORY | | + + + + + + | Platelet | 320 | 150 - 400 K/uL | [facility] | | | Count | | | LABORATORY | | + + + + + + | MPV | 9.4Comment: NO NORMAL | fl | [facility] | | | | RANGE ESTABLISHED | | LABORATORY | | + + + + + + | Diff Type | AUTOMATED | | [facility] | | | | | | LABORATORY | | + + + + + + | % nRBC | 0.0 | 0 /100WBC | [facility] | | | | | | LABORATORY | | + + + + + + | % | 80.60 | % | [facility] | | | Neutrophils | | | LABORATORY | | + + + + + + | IMMATURE | 0.40 | % | [facility] | | | GRANULOCYTE | | | LABORATORY | | + + + + + + | % | 11.90 | % | [facility] | | | Lymphocytes | | | LABORATORY | | + + + + + + | Monocyte % | 6.40 | % | [facility] | | | | | | LABORATORY | | + + + + + + | Eosinophils | 0.50 | % | [facility] | | | % | | | LABORATORY | | + + + + + + | Basophils % | 0.20 | % | [facility] | | | | | | LABORATORY | | + + + + + + | Neutrophils | 9.40 (H) | 1.90 - 7.40 | [facility] | | | , Absolute | | K/uL | LABORATORY | | + + + + + + | IMMATURE | 0.05Comment: NOTE NEW | 0.00 - 0.07 | [facility] | | | GRANS AB | REFERENCE RANGE | K/uL | LABORATORY | | + + + + + + | Absolute | 1.39 | 1.00 - 3.90 | [facility] | | | Lymphocytes | | K/uL | LABORATORY | | + + + + + + | Absolute | 0.75 | 0.00 - 0.80 | [facility] | | | Monocytes | | K/uL | LABORATORY | | + + + + + + | Eosinophils | 0.06 | 0.00 - 0.50 | [facility] | | | , Absolute | | K/uL | LABORATORY | | + + + + + + | Basophils, | 0.02Comment: Testing | 0.00 - 0.10 | [facility] | | | Absolute | performed at [facility];[address] | K/uL | LABORATORY | | | | [address];[place], [place] | | | | | | [address] | | | | + + + + + + + + | Specimen | + + | Blood | + + + + + + + | Performing | Address | City/State/Zipcode | Phone Number | | Organization | | | | + + + + + | [facility] | [address] | [place] [address] | [phone] | + + + + + XR Chest AP Portable (12/22/2019 5:48 PM PDT) + + | Specimen | + + | | + + + + + | Impressions | Performed At | + + + | Mild congestive heart failure and/or volume overload with pulmonary | [facility] | | edema, which appears increased from the prior study. Final | | | Report Signed by: Fernando Madrid, Jorge Alberto Sign Date/Time: 12/22/2019 6:22 | | | PM | | + + + + + + | Narrative | Performed At | + + + | CHEST PORTABLE ONE VIEW CLINICAL INFORMATION: Shortness of | [facility] | | breath. COMPARISON: XR CHEST AP PORTABLE (12/17/2019); XR CHEST AP | | | PORTABLE (10/31/2019); FINDINGS: Mild cardiomegaly, similar to the | | | prior study. Pulmonary vasculature is mildly congested and | | | indistinct. Increased diffuse reticular markings throughout the | | | lungs including Kyra B lines. No dense focal consolidation. | | | Probable trace bilateral pleural effusions. No pneumothorax. No | | | acute osseous or upper abdominal abnormality. | | + + + + + | Procedure Note | + + | [place], [id number] - 12/22/2019 6:25 PM PDT | | CHEST PORTABLE ONE VIEW | | | | CLINICAL INFORMATION: | | Shortness of breath. | | | | COMPARISON: | | XR CHEST AP PORTABLE (12/17/2019); XR CHEST AP PORTABLE (10/31/2019); | | | | FINDINGS: | | Mild cardiomegaly, similar to the prior study. Pulmonary vasculature | | is mildly congested and indistinct. Increased diffuse reticular | | markings throughout the lungs including Kyra B lines. No dense focal | | consolidation. Probable trace bilateral pleural effusions. No | | pneumothorax. No acute osseous or upper abdominal abnormality. | | | | IMPRESSION: | | Mild congestive heart failure and/or volume overload with pulmonary | | edema, which appears increased from the prior study. | | | | | | | | Final Report Signed by: Fernando Madrid Robert | | Sign Date/Time: 12/22/2019 6:22 PM | + + + +---------+ + + | Performing | Address | City/State/Zipcode | Phone Number | | Organization | | | | + +---------+ + + | [facility] | | | | + +---------+ + + Basic Metabolic Panel (12/22/2019 5:46 AM PDT) + + + + + + | Component | Value | Ref Range | Performed | Pathologist | | | | | At | Signature | + + + + + + | Na | 137 | 135 - 145 | [facility] | | | | | mmol/L | LABORATORY | | + + + + + + | K | 3.9 | 3.5 - 4.9 | [facility] | | | | | mmol/L | LABORATORY | | + + + + + + | Cl | 104 | 99 - 109 mmol/L | [facility] | | | | | | LABORATORY | | + + + + + + | CO2 | 23 | 23 - 32 mmol/L | [facility] | | | | | | LABORATORY | | + + + + + + | Anion Gap | 14 | 5 - 20 mmol/L | [facility] | | | | | | LABORATORY | | + + + + + + | Glucose | 112 (H) | 65 - 99 mg/dL | [facility] | | | | | | LABORATORY | | + + + + + + | BUN | 17 | 8 - 25 mg/dL | [facility] | | | | | | LABORATORY | | + + + + + + | Creatinine | 1.10 | 0.70 - 1.30 | [facility] | | | | | mg/dL | LABORATORY | | + + + + + + | BUN/Creatin | 15 | | [facility] | | | ine Ratio | | | LABORATORY | | + + + + + + | Calcium | 8.0 (L) | 8.5 - 10.5 | [facility] | | | | | mg/dL | LABORATORY | | + + + + + + | Estimated | >60Comment: GFR <60: | >60 | [facility] | | | GFR | CHRONIC KIDNEY DISEASE, | mL/min/1.73m2 | LABORATORY | | | | IF FOUND OVER A 3 MONTH | | | | | | PERIOD.GFR <15: KIDNEY | | | | | | FAILURE.FOR | | | | | | AMERICANS, MULTIPLY THE | | | | | | CALCULATED GFR BY | | | | | | 1.210.This eGFR is | | | | | | calculated using the | | | | | | MDRD IDMS traceable | | | | | | equation.Testing | | | | | | performed at [facility], [address] | | | | | [address], | | | | | | [place] [address] | | | | + + + + + + + + | Specimen | + + | Blood | + + + + + + + | Performing | Address | City/State/Zipcode | Phone Number | | Organization | | | | + + + + + | [facility] | [address] | [place] [address] | [phone] | + + + + + CBC with Differential (12/22/2019 5:46 AM PDT) + + + + + + | Component | Value | Ref Range | Performed | Pathologist | | | | | At | Signature | + + + + + + | WBC | 12.49 (H) | 3.80 - 11.00 | [facility] | | | | | K/uL | LABORATORY | | + + + + + + | Red Blood | 3.35 (L) | 4.20 - 5.70 | [facility] | | | Cells | | M/uL | LABORATORY | | + + + + + + | Hemoglobin | 8.9 (L) | 13.2 - 17.0 | [facility] | | | | | g/dL | LABORATORY | | + + + + + + | Hematocrit | 28.8 (L) | 39.0 - 50.0 % | [facility] | | | | | | LABORATORY | | + + + + + + | MCV | 86.0 | 80.0 - 100.0 fl | [facility] | | | | | | LABORATORY | | + + + + + + | MCH | 26.6 (L) | 27.0 - 34.0 pg | [facility] | | | | | | LABORATORY | | + + + + + + | MCHC | 30.9 (L) | 32.0 - 35.5 | [facility] | | | | | g/dL | LABORATORY | | + + + + + + | RDW-SD | 54.1 (H) | 37 - 53 fl | [facility] | | | | | | LABORATORY | | + + + + + + | Platelet | 305Comment: SLIDE | 150 - 400 K/uL | [facility] | | | Count | SCANNED, AGREES WITH | | LABORATORY | | | | AUTOMATED RESULTS. | | | | + + + + + + | MPV | 10.4Comment: NO NORMAL | fl | [facility] | | | | RANGE ESTABLISHED | | LABORATORY | | + + + + + + | Diff Type | MANUAL | | [facility] | | | | | | LABORATORY | | + + + + + + | % Segmented | 83 | % | [facility] | | | | | | LABORATORY | | | Neutrophils | | | | | + + + + + + | % | 10 | % | [facility] | | | Lymphocytes | | | LABORATORY | | + + + + + + | % Monocytes | 7 | % | [facility] | | | | | | LABORATORY | | + + + + + + | RBC | RBC AND PLT MORPHOLOGY | | [facility] | | | Morphology | APPEAR NORMALComment: | | LABORATORY | | | | Testing performed at | | | | | | [facility], [address] | | | | | | [place], [place] | | | | | | [address] | | | | + + + + + + + + | Specimen | + + | Blood | + + + + + + + | Performing | Address | City/State/Zipcode | Phone Number | | Organization | | | | + + + + + | [facility] | [address] | [place] [address] | [phone] | + + + + + Basic Metabolic Panel (12/21/2019 5:02 AM PDT) + + + + + + | Component | Value | Ref Range | Performed | Pathologist | | | | | At | Signature | + + + + + + | Na | 136 | 135 - 145 | [facility] | | | | | mmol/L | LABORATORY | | + + + + + + | K | 4.2Comment: SPECIMEN | 3.5 - 4.9 | [facility] | | | | SLIGHTLY HEMOLYZED | mmol/L | LABORATORY | | + + + + + + | Cl | 103 | 99 - 109 mmol/L | [facility] | | | | | | LABORATORY | | + + + + + + | CO2 | 22 (L) | 23 - 32 mmol/L | [facility] | | | | | | LABORATORY | | + + + + + + | Anion Gap | 15 | 5 - 20 mmol/L | [facility] | | | | | | LABORATORY | | + + + + + + | Glucose | 149 (H)Comment: SPECIMEN | 65 - 99 mg/dL | [facility] | | | | SLIGHTLY HEMOLYZED | | LABORATORY | | + + + + + + | BUN | 21 | 8 - 25 mg/dL | [facility] | | | | | | LABORATORY | | + + + + + + | Creatinine | 1.40 (H)Comment: | 0.70 - 1.30 | [facility] | | | | SPECIMEN SLIGHTLY | mg/dL | LABORATORY | | | | HEMOLYZED | | | | + + + + + + | BUN/Creatin | 15 | | [facility] | | | ine Ratio | | | LABORATORY | | + + + + + + | Calcium | 7.6 (L) | 8.5 - 10.5 | [facility] | | | | | mg/dL | LABORATORY | | + + + + + + | Estimated | 50 (L)Comment: GFR <60: | >60 | [facility] | | | GFR | CHRONIC KIDNEY DISEASE, | mL/min/1.73m2 | LABORATORY | | | | IF FOUND OVER A 3 MONTH | | | | | | PERIOD.GFR <15: KIDNEY | | | | | | FAILURE.FOR | | | | | | AMERICANS, MULTIPLY THE | | | | | | CALCULATED GFR BY | | | | | | 1.210.This eGFR is | | | | | | calculated using the | | | | | | MDRD IDMS traceable | | | | | | equation.Testing | | | | | | performed at [facility], [address] | | | | | | [facility], | | | | | | [place] [address] | | | | + + + + + + + + | Specimen | + + | Blood | + + + + + + + | Performing | Address | City/State/Zipcode | Phone Number | | Organization | | | | + + + + + | [facility] | [address] | [place] [address] | [phone] | + + + + + CBC with Differential (12/21/2019 5:02 AM PDT) + + + + + + | Component | Value | Ref Range | Performed | Pathologist | | | | | At | Signature | + + + + + + | WBC | 15.85 (H) | 3.80 - 11.00 | [facility] | | | | | K/uL | LABORATORY | | + + + + + + | Red Blood | 3.28 (L) | 4.20 - 5.70 | [facility] | | | Cells | | M/uL | LABORATORY | | + + + + + + | Hemoglobin | 8.9 (L) | 13.2 - 17.0 | [facility] | | | | | g/dL | LABORATORY | | + + + + + + | Hematocrit | 28.2 (L) | 39.0 - 50.0 % | [facility] | | | | | | LABORATORY | | + + + + + + | MCV | 86.0 | 80.0 - 100.0 fl | [facility] | | | | | | LABORATORY | | + + + + + + | MCH | 27.1 | 27.0 - 34.0 pg | [facility] | | | | | | LABORATORY | | + + + + + + | MCHC | 31.6 (L) | 32.0 - 35.5 | [facility] | | | | | g/dL | LABORATORY | | + + + + + + | RDW-SD | 53.5 (H) | 37 - 53 fl | [facility] | | | | | | LABORATORY | | + + + + + + | Platelet | 272 | 150 - 400 K/uL | [facility] | | | Count | | | LABORATORY | | + + + + + + | MPV | 10.4Comment: NO NORMAL | fl | [facility] | | | | RANGE ESTABLISHED | | LABORATORY | | + + + + + + | Diff Type | AUTOMATED | | [facility] | | | | | | LABORATORY | | + + + + + + | % nRBC | 0.0 | 0 /100WBC | [facility] | | | | | | LABORATORY | | + + + + + + | % | 86.50 | % | [facility] | | | Neutrophils | | | LABORATORY | | + + + + + + | % | 7.30 | % | [facility] | | | Lymphocytes | | | LABORATORY | | + + + + + + | Monocyte % | 5.50 | % | [facility] | | | | | | LABORATORY | | + + + + + + | Eosinophils | 0.10 | % | [facility] | | | % | | | LABORATORY | | + + + + + + | Basophils % | 0.10 | % | [facility] | | | | | | LABORATORY | | + + + + + + | IMMATURE | 0.50 | % | [facility] | | | GRANULOCYTE | | | LABORATORY | | + + + + + + | Neutrophils | 13.70 (H) | 1.90 - 7.40 | [facility] | | | , Absolute | | K/uL | LABORATORY | | + + + + + + | Absolute | 1.16 | 1.00 - 3.90 | [facility] | | | Lymphocytes | | K/uL | LABORATORY | | + + + + + + | Absolute | 0.87 (H) | 0.00 - 0.80 | [facility] | | | Monocytes | | K/uL | LABORATORY | | + + + + + + | Eosinophils | 0.02 | 0.00 - 0.50 | [facility] | | | , Absolute | | K/uL | LABORATORY | | + + + + + + | Basophils, | 0.02 | 0.00 - 0.10 | [facility] | | | Absolute | | K/uL | LABORATORY | | + + + + + + | IMMATURE | 0.08 (H) | 0.00 - 0.07 | [facility] | | | GRANS AB | | K/uL | LABORATORY | | + + + + + + | RBC | RBC AND PLT MORPHOLOGY | | [facility] | | | Morphology | APPEAR NORMAL | | LABORATORY | | + + + + + + | Comment | SLIDE SCANNED, AGREES | | [facility] | | | | WITH AUTOMATED | | LABORATORY | | | | RESULTS.Comment: Testing | | | | | | performed at [facility], [address] | | | | | [address] [facility], | | | | | | [place] [address] | | | | + + + + + + + + | Specimen | + + | Blood | + + + + + + + | Performing | Address | City/State/Zipcode | Phone Number | | Organization | | | | + + + + + | [facility] | [address] | [place] [address] | [phone] | + + + + + CT Angiogram Head Neck w Contrast (12/20/2019 2:30 PM PDT) + + | Specimen | + + | | + + + + + | Impressions | Performed At | + + + | 1. Small area of hypoattenuation in the right occipital lobe with | [facility] | | evolving infarct. 2. No hemodynamically significant stenosis, | | | occlusion or dissection CTA head and neck. 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 CT Angiogram Head: Thin section axial images | | | were obtained through the brain during the arterial phase after IV | | | administration. CT Angiogram Neck: Thin section axial images were | | | obtained through the neck during the arterial phase after IV | | | administration. NASCET criteria applied for internal carotid | | | stenosis determination. 3D and multiplanar reconstructions were | | | obtained from the acquisition data. Contrast: 100ml Omnipaque 350 | | | IV. At least one of the following CT dose optimization techniques | | | were used: Automated exposure control; Adjustment of mA and/or kV | | | according to patient size; Use of iterative reconstruction technique. | | | FINDINGS: CT Head: Brain: Small area of hypoattenuation in the | | | right occipital lobe. There is generalized brain substance loss. | | | There is periventricular and subcortical white matter | | | hypoattenuation. No intracranial hemorrhage. No midline shift. No | | | evidence of cerebral edema, mass effect or acute territorial infarct. | | | Left frontal subgaleal lipoma. Ventricles and extra-axial fluid | | | spaces: Normal. Paranasal sinuses and mastoid air cells: Normal. | | | Calvarium and extracranial soft tissues: Normal. Orbits: Imaged | | | portions of the orbits are normal. CTA Head: Intracranial | | | Segments of the Internal Carotid Arteries: Normal contrast | | | enhancement without evidence of occlusion, intraluminal thrombus, | | | significant stenosis, or aneurysm. Middle Cerebral Arteries: | | | Normal contrast enhancement without evidence of occlusion, | | | intraluminal thrombus, significant stenosis, or aneurysm. Anterior | | | Cerebral Arteries: Normal contrast enhancement without evidence of | | | occlusion, intraluminal thrombus, significant stenosis, or aneurysm. | | | Posterior Circulation: Intracranial segments of the vertebral | | | arteries, basilar artery, inferior cerebellar, superior cerebellar, | | | and posterior cerebral arteries demonstrate normal contrast | | | enhancement without evidence of occlusion, intraluminal thrombus, | | | significant stenosis, or aneurysm. CTA Neck: Aortic Arch: | | | Conventional anatomy. Brachiocephalic and subclavian arteries | | | demonstrate normal contrast enhancement without evidence of | | | occlusion, intraluminal thrombus, or significant stenosis. Right | | | Carotid Artery: Mild calcified and noncalcified plaque the carotid | | | bulb. Carotid origin, common carotid artery, carotid bifurcation, | | | external carotid artery, and cervical segments of the internal | | | carotid artery demonstrate normal contrast enhancement without | | | evidence of occlusion, intraluminal thrombus, dissection, or | | | significant stenosis. Left Carotid Artery: Mild calcified and | | | noncalcified plaque of the carotid bulb. Carotid origin, common | | | carotid artery, carotid bifurcation, external carotid artery, and | | | cervical segments of the internal carotid artery demonstrate normal | | | contrast enhancement without evidence of occlusion, intraluminal | | | thrombus, dissection, or significant stenosis. Vertebral | | | Arteries: Vertebral artery origins and cervical segments of the | | | vertebral arteries demonstrate normal contrast enhancement without | | | evidence of occlusion, intraluminal thrombus, dissection, or | | | significant stenosis. Moderate bilateral pleural effusions. | | + + + + + | Procedure Note | + + | [place], [id number] - 12/20/2019 2:58 PM PDT | | CT ANGIOGRAM OF THE HEAD WITHOUT AND WITH CONTRAST; CT ANGIOGRAM OF THE | | NECK WITH CONTRAST | | | | CLINICAL INFORMATION: | | septic infarcts r/t endocarditis | | | | COMPARISON: | | MRI BRAIN W WO CONTRAST (12/18/2019); | | | | PROCEDURE: | | CT Head: Axial images were obtained through the brain IV without | | contrast. | | | | CT Angiogram Head: Thin section axial images were obtained through the | | brain during the arterial phase after IV administration. | | | | CT Angiogram Neck: Thin section axial images were obtained through the | | neck during the arterial phase after IV administration. | | | | NASCET criteria applied for internal carotid stenosis determination. | | | | 3D and multiplanar reconstructions were obtained from the acquisition | | data. | | | | Contrast: 100ml Omnipaque 350 IV. | | | | At least one of the following CT dose optimization techniques were | | used: Automated exposure control; Adjustment of mA and/or kV according | | to patient size; Use of iterative reconstruction technique. | | | | FINDINGS: | | CT Head: | | Brain: Small area of hypoattenuation in the right occipital lobe. | | There is generalized brain substance loss. There is periventricular | | and subcortical white matter hypoattenuation. No intracranial | | hemorrhage. No midline shift. No evidence of cerebral edema, mass | | effect or acute territorial infarct. Left frontal subgaleal lipoma. | | | | Ventricles and extra-axial fluid spaces: Normal. | | | | Paranasal sinuses and mastoid air cells: Normal. | | | | Calvarium and extracranial soft tissues: Normal. | | | | Orbits: Imaged portions of the orbits are normal. | | | | | | CTA Head: | | Intracranial Segments of the Internal Carotid Arteries: Normal contrast | | enhancement without evidence of occlusion, intraluminal thrombus, | | significant stenosis, or aneurysm. | | | | Middle Cerebral Arteries: Normal contrast enhancement without evidence | | of occlusion, intraluminal thrombus, significant stenosis, or aneurysm. | | | | Anterior Cerebral Arteries: Normal contrast enhancement without | | evidence of occlusion, intraluminal thrombus, significant stenosis, or | | aneurysm. | | | | Posterior Circulation: Intracranial segments of the vertebral arteries, | | basilar artery, inferior cerebellar, superior cerebellar, and posterior | | cerebral arteries demonstrate normal contrast enhancement without | | evidence of occlusion, intraluminal thrombus, significant stenosis, or | | aneurysm. | | | | | | CTA Neck: | | Aortic Arch: Conventional anatomy. Brachiocephalic and subclavian | | arteries demonstrate normal contrast enhancement without evidence of | | occlusion, intraluminal thrombus, or significant stenosis. | | | | Right Carotid Artery: Mild calcified and noncalcified plaque the | | carotid bulb. Carotid origin, common carotid artery, carotid | | bifurcation, external carotid artery, and cervical segments of the | | internal carotid artery demonstrate normal contrast enhancement without | | evidence of occlusion, intraluminal thrombus, dissection, or | | significant stenosis. | | | | Left Carotid Artery: Mild calcified and noncalcified plaque of the | | carotid bulb. Carotid origin, common carotid artery, carotid | | bifurcation, external carotid artery, and cervical segments of the | | internal carotid artery demonstrate normal contrast enhancement without | | evidence of occlusion, intraluminal thrombus, dissection, or | | significant stenosis. | | | | Vertebral Arteries: Vertebral artery origins and cervical segments of | | the vertebral arteries demonstrate normal contrast enhancement without | | evidence of occlusion, intraluminal thrombus, dissection, or | | significant stenosis. | | | | Moderate bilateral pleural effusions. | | | | IMPRESSION: | | 1. Small area of hypoattenuation in the right occipital lobe with | | evolving infarct. | | 2. No hemodynamically significant stenosis, occlusion or dissection CTA | | head and neck. | | | | | | | | Final Report Signed by: Fernando Grullon Joshua | | Sign Date/Time: 12/20/2019 2:54 PM | + + + +---------+ + + | Performing | Address | City/State/Zipcode | Phone Number | | Organization | | | | + +---------+ + + | [facility] | | | | + +---------+ + + POC Glucose (12/20/2019 12:11 PM PDT) + + + + + + | Component | Value | Ref Range | Performed | Pathologist | | | | | At | Signature | + + + + + + | Glucose, | 155 (H)Comment: Testing | 65 - 99 mg/dL | [facility] | | | POC | performed at [facility];[address] | | LABORATORY | | | | [address];[place], [place] | | | | | | [address] | | | | + + + + + + + + | Specimen | + + | | + + + + + + + | Performing | Address | City/State/Zipcode | Phone Number | | Organization | | | | + + + + + | [facility] | [address] | [place] [address] | [phone] | + + + + + ECG 12 lead (12/20/2019 8:04 AM PDT) + + + + + + | Component | Value | Ref Range | Performed | Pathologist | | | | | At | Signature | + + + + + + | VENTRICULAR | 113 | BPM | [facility] | | | RATE EKG | | | | | + + + + + + | ATRIAL RATE | 113 | BPM | [facility] | | + + + + + + | P-R | 126 | ms | [facility] | | | INTERVAL | | | | | + + + + + + | QRS | 80 | ms | [facility] | | | DURATION | | | | | + + + + + + | Q-T | 344 | ms | [facility] | | | INTERVAL | | | | | + + + + + + | Q-T | 471 | ms | [facility] | | | INTERVAL | | | | | | (CORRECTED) | | | | | + + + + + + | P WAVE AXIS | 55 | degrees | [facility] | | + + + + + + | QRS AXIS | -27 | degrees | [facility] | | + + + + + + | T AXIS | 52 | degrees | [facility] | | + + + + + + | INTERPRETAT | Sinus tachycardia with | | [facility] | | | ION TEXT | Premature atrial | | | | | | complexesLeft atrial | | | | | | enlargementNonspecific T | | | | | | wave abnormality | | | | | | Lateral leadsBorderline | | | | | | ECGNo previous ECGs | | | | | | availableConfirmed by | | | | | | JEET TEJEDA MD ([id number]) | | | | | | on 12/20/2019 2:45:08 PM | | | | + + + + + + + + | Specimen | + + | | + + + + + | Narrative | Performed At | + + + | | | + + + + +---------+ + + | Performing | Address | City/State/Zipcode | Phone Number | | Organization | | | | + +---------+ + + | [facility] | | | | + +---------+ + + CBC with Differential (12/20/2019 6:30 AM PDT) + + + + + + | Component | Value | Ref Range | Performed | Pathologist | | | | | At | Signature | + + + + + + | WBC | 11.83 (H) | 3.80 - 11.00 | [facility] | | | | | K/uL | LABORATORY | | + + + + + + | Red Blood | 3.59 (L) | 4.20 - 5.70 | [facility] | | | Cells | | M/uL | LABORATORY | | + + + + + + | Hemoglobin | 9.7 (L) | 13.2 - 17.0 | [facility] | | | | | g/dL | LABORATORY | | + + + + + + | Hematocrit | 30.5 (L) | 39.0 - 50.0 % | [facility] | | | | | | LABORATORY | | + + + + + + | MCV | 85.0 | 80.0 - 100.0 fl | [facility] | | | | | | LABORATORY | | + + + + + + | MCH | 27.0 | 27.0 - 34.0 pg | [facility] | | | | | | LABORATORY | | + + + + + + | MCHC | 31.8 (L) | 32.0 - 35.5 | [facility] | | | | | g/dL | LABORATORY | | + + + + + + | RDW-SD | 50.2 | 37 - 53 fl | [facility] | | | | | | LABORATORY | | + + + + + + | Platelet | 295 | 150 - 400 K/uL | [facility] | | | Count | | | LABORATORY | | + + + + + + | MPV | 9.5Comment: NO NORMAL | fl | [facility] | | | | RANGE ESTABLISHED | | LABORATORY | | + + + + + + | Diff Type | AUTOMATED | | [facility] | | | | | | LABORATORY | | + + + + + + | % nRBC | 0.0 | 0 /100WBC | [facility] | | | | | | LABORATORY | | + + + + + + | % | 83.80 | % | [facility] | | | Neutrophils | | | LABORATORY | | + + + + + + | IMMATURE | 0.70 | % | [facility] | | | GRANULOCYTE | | | LABORATORY | | + + + + + + | % | 9.20 | % | [facility] | | | Lymphocytes | | | LABORATORY | | + + + + + + | Monocyte % | 4.30 | % | [facility] | | | | | | LABORATORY | | + + + + + + | Eosinophils | 1.70 | % | [facility] | | | % | | | LABORATORY | | + + + + + + | Basophils % | 0.30 | % | [facility] | | | | | | LABORATORY | | + + + + + + | Neutrophils | 9.92 (H) | 1.90 - 7.40 | [facility] | | | , Absolute | | K/uL | LABORATORY | | + + + + + + | IMMATURE | 0.08 (H)Comment: NOTE | 0.00 - 0.07 | [facility] | | | GRANS AB | NEW REFERENCE RANGE | K/uL | LABORATORY | | + + + + + + | Absolute | 1.09 | 1.00 - 3.90 | [facility] | | | Lymphocytes | | K/uL | LABORATORY | | + + + + + + | Absolute | 0.51 | 0.00 - 0.80 | [facility] | | | Monocytes | | K/uL | LABORATORY | | + + + + + + | Eosinophils | 0.20 | 0.00 - 0.50 | [facility] | | | , Absolute | | K/uL | LABORATORY | | + + + + + + | Basophils, | 0.03Comment: Testing | 0.00 - 0.10 | [facility] | | | Absolute | performed at [facility];[address] | K/uL | LABORATORY | | | | [address];[place] | | | | | | [address] | | | | + + + + + + + + | Specimen | + + | Blood | + + + + + + + | Performing | Address | City/State/Zipcode | Phone Number | | Organization | | | | + + + + + | [facility] | [address] | [place] [address] | [phone] | + + + + + Basic Metabolic Panel (12/20/2019 6:30 AM PDT) + + + + + + | Component | Value | Ref Range | Performed | Pathologist | | | | | At | Signature | + + + + + + | Na | 136 | 135 - 145 | [facility] | | | | | mmol/L | LABORATORY | | + + + + + + | K | 3.6 | 3.5 - 4.9 | [facility] | | | | | mmol/L | LABORATORY | | + + + + + + | Cl | 103 | 99 - 109 mmol/L | [facility] | | | | | | LABORATORY | | + + + + + + | CO2 | 24 | 23 - 32 mmol/L | [facility] | | | | | | LABORATORY | | + + + + + + | Anion Gap | 13 | 5 - 20 mmol/L | [facility] | | | | | | LABORATORY | | + + + + + + | Glucose | 116 (H) | 65 - 99 mg/dL | [facility] | | | | | | LABORATORY | | + + + + + + | BUN | 14 | 8 - 25 mg/dL | [facility] | | | | | | LABORATORY | | + + + + + + | Creatinine | 0.95 | 0.70 - 1.30 | [facility] | | | | | mg/dL | LABORATORY | | + + + + + + | BUN/Creatin | 15 | | [facility] | | | ine Ratio | | | LABORATORY | | + + + + + + | Calcium | 8.4 (L) | 8.5 - 10.5 | [facility] | | | | | mg/dL | LABORATORY | | + + + + + + | Estimated | >60Comment: GFR <60: | >60 | [facility] | | | GFR | CHRONIC KIDNEY DISEASE, | mL/min/1.73m2 | LABORATORY | | | | IF FOUND OVER A 3 MONTH | | | | | | PERIOD.GFR <15: KIDNEY | | | | | | FAILURE.FOR | | | | | | AMERICANS, MULTIPLY THE | | | | | | CALCULATED GFR BY | | | | | | 1.210.This eGFR is | | | | | | calculated using the | | | | | | MDRD IDMS traceable | | | | | | equation.Testing | | | | | | performed at [facility];[address] | | | | | | [facility];[place], [place] | | | | | | [address] | | | | + + + + + + + + | Specimen | + + | Blood | + + + + + + + | Performing | Address | City/State/Zipcode | Phone Number | | Organization | | | | + + + + + | [facility] | [address] | [place] [address] | [phone] | + + + + + CV CARDIAC PROCEDURE (12/19/2019 2:28 PM PDT) + +-------+ + + + | Component | Value | Ref Range | Performed | Pathologist | | | | | At | Signature | + +-------+ + + + | LVEF-LVGRAM | 55 | % | | | | CARDIAC | | | | | | CATH | | | | | + +-------+ + + + + + | Specimen | + + | | + + + + -+ | Narrative | Performed At | + + -+ | Summary No | | | angiographically significant coronary artery disease. 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 Recommendations Mitral | | | valve replacement surgery following complete dental extraction. | | | Procedures Performed Left heart catheterization (56403.26) with | | | selective bilateral coronary angiography, left ventricular angiograpy. | | | Procedure Summary Access site: right radial artery | | | Anticoagulation: heparin Antiplatelet therapy: aspirin 81 mg | | | Closure: Radial band/closure device Clinical IndicationsThijustine is a 69 | | | y.o. year old male transferred 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 He has | | | septic emboli to the spleen, liver, left kidney and brain (mutliple | | | sites). His initial evaluation there showed a mild troponin | | | elevation, peak 0.08. His initial ECG was concerning for a possible | | | inferior infarct, with ST-T abnormalities that resolved on follow-up | | | ECGs. Mitral valve replacement is clinically indicated. Prior to | | | surgery, diagnostic cardiac catheterization is indicated to evaluate | | | his coronary anatomy. For additional detail as to the procedures | | | performed and the equipment that was utilized, please refer to the | | | Procedure Log. | | |has septic emboli to the spleen, liver, left kidney and brain (mutliple | | |sites). His initial evaluation there showed a mild troponin elevation, | | |peak 0.08. His initial ECG was concerning for a possible inferior | | |infarct, with ST-T abnormalities that resolved on follow-up ECGs. Mitral | | |valve replacement is clinically indicated. Prior to surgery, diagnostic | | |cardiac catheterization is indicated to evaluate his coronary anatomy. | | | | | | | | | | | |For additional detail as to the procedures performed and the equipment | | |that was utilized, please refer to the Procedure Log. | | | | | + + -+ ECHO Transesophageal (ARNOLDO) (12/19/2019 1:29 PM PDT) + +-------+ + + + | Component | Value | Ref Range | Performed | Pathologist | | | | | At | Signature | + +-------+ + + + | Vitals | 68 | | [facility] | | | Heart Rate | | | | | | Rest | | | | | + +-------+ + + + | Vitals BP | 139 | | [facility] | | | Systolic | | | | | + +-------+ + + + | Vitals BP | 79 | | [facility] | | | Diastolic | | | | | + +-------+ + + + | Vitals | 165.1 | | [facility] | | | Height | | | | | + +-------+ + + + | Vitals | 59.40 | | [facility] | | | Weight | | | | | + +-------+ + + + | LVEF-TTE | 70 | % | [facility] | | | TRANSTHORAC | | | | | | IC ECHO | | | | | + +-------+ + + + + + | Specimen | + + | | + + + + + | Narrative | Performed At | + + + | There is a | [facility] | | vegetation on the mitral valve, attached to the atrial surface of the | | | P2 segment of the posterior leaflet, measuring 3.1 cm. It is shaggy | | | and irregular, and highly mobile. There is also a smaller vegetation | | | attached to the ventricular surface of the leaflet. Severe eccentric | | | mitral regurgitation. It causes reversal of systolic flow in the | | | pulmonary veins. There is normal left ventricular systolic function. | | | The left ventricular ejection fraction is 70%. Normal size right | | | ventricle, with normal right ventricular systolic function. | | | Moderately dilated left atrium. There is a small secundum atrial | | | septal defect (ASD), measuring only 2.5 mm, with minimal glpk-vt-oyvof | | | shunting. There is no evidence of beunz-ad-wgli shunting on the | | | intravenous bubble contrast study. | | |zjypg-xu-ofnz shunting on the intravenous bubble contrast study. | | | | | + + + + +---------+ + + | Performing | Address | City/State/Zipcode | Phone Number | | Organization | | | | + +---------+ + + | [facility] | | | | + +---------+ + + T4, Free (12/19/2019 9:37 AM PDT) + + + + + + | Component | Value | Ref Range | Performed | Pathologist | | | | | At | Signature | + + + + + + | FT4 | 1.5Comment: Testing | 0.7 - 1.5 ng/dL | [facility] | | | | performed at [facility];[address] | | LABORATORY | | | | [address];[place], [place] | | | | | | [address] | | | | + + + + + + + + | Specimen | + + | Blood | + + + + + + + | Performing | Address | City/State/Zipcode | Phone Number | | Organization | | | | + + + + + | [facility] | [address] | [place] [address] | [phone] | + + + + + Gentamicin, Trough (12/19/2019 9:37 AM PDT) + + + + + + | Component | Value | Ref Range | Performed | Pathologist | | | | | At | Signature | + + + + + + | GENTAMICIN | 0.6Comment: Testing | <2.0 ug/mL | [facility] | | | TROUGH | performed at [facility];[address] | | LABORATORY | | | | [address];[place] | | | | | | [address] | | | | + + + + + + + + | Specimen | + + | Blood | + + + + + + + | Performing | Address | City/State/Zipcode | Phone Number | | Organization | | | | + + + + + | [facility] | [address] | [place] [address] | [phone] | + + + + + CBC with Differential (12/19/2019 6:26 AM PDT) + + + + + + | Component | Value | Ref Range | Performed | Pathologist | | | | | At | Signature | + + + + + + | WBC | 16.89 (H) | 3.80 - 11.00 | [facility] | | | | | K/uL | LABORATORY | | + + + + + + | Red Blood | 3.89 (L) | 4.20 - 5.70 | [facility] | | | Cells | | M/uL | LABORATORY | | + + + + + + | Hemoglobin | 10.5 (L) | 13.2 - 17.0 | [facility] | | | | | g/dL | LABORATORY | | + + + + + + | Hematocrit | 33.6 (L) | 39.0 - 50.0 % | [facility] | | | | | | LABORATORY | | + + + + + + | MCV | 86.4 | 80.0 - 100.0 fl | [facility] | | | | | | LABORATORY | | + + + + + + | MCH | 27.0 | 27.0 - 34.0 pg | [facility] | | | | | | LABORATORY | | + + + + + + | MCHC | 31.3 (L) | 32.0 - 35.5 | [facility] | | | | | g/dL | LABORATORY | | + + + + + + | RDW-SD | 50.4 | 37 - 53 fl | [facility] | | | | | | LABORATORY | | + + + + + + | Platelet | 339 | 150 - 400 K/uL | [facility] | | | Count | | | LABORATORY | | + + + + + + | MPV | 9.3Comment: NO NORMAL | fl | [facility] | | | | RANGE ESTABLISHED | | LABORATORY | | + + + + + + | Diff Type | AUTOMATED | | [facility] | | | | | | LABORATORY | | + + + + + + | % nRBC | 0.0 | 0 /100WBC | [facility] | | | | | | LABORATORY | | + + + + + + | % | 85.20 | % | [facility] | | | Neutrophils | | | LABORATORY | | + + + + + + | IMMATURE | 0.80 | % | [facility] | | | GRANULOCYTE | | | LABORATORY | | + + + + + + | % | 8.50 | % | [facility] | | | Lymphocytes | | | LABORATORY | | + + + + + + | Monocyte % | 4.90 | % | [facility] | | | | | | LABORATORY | | + + + + + + | Eosinophils | 0.40 | % | [facility] | | | % | | | LABORATORY | | + + + + + + | Basophils % | 0.20 | % | [facility] | | | | | | LABORATORY | | + + + + + + | Neutrophils | 14.39 (H) | 1.90 - 7.40 | [facility] | | | , Absolute | | K/uL | LABORATORY | | + + + + + + | IMMATURE | 0.14 (H)Comment: NOTE | 0.00 - 0.07 | [facility] | | | GRANS AB | NEW REFERENCE RANGE | K/uL | LABORATORY | | + + + + + + | Absolute | 1.44 | 1.00 - 3.90 | [facility] | | | Lymphocytes | | K/uL | LABORATORY | | + + + + + + | Absolute | 0.83 (H) | 0.00 - 0.80 | [facility] | | | Monocytes | | K/uL | LABORATORY | | + + + + + + | Eosinophils | 0.06 | 0.00 - 0.50 | [facility] | | | , Absolute | | K/uL | LABORATORY | | + + + + + + | Basophils, | 0.03Comment: Testing | 0.00 - 0.10 | [facility] | | | Absolute | performed at [facility];[address] | K/uL | LABORATORY | | | | [address];[place] | | | | | | [address] | | | | + + + + + + + + | Specimen | + + | Blood | + + + + + + + | Performing | Address | City/State/Zipcode | Phone Number | | Organization | | | | + + + + + | [facility] | [address] | [place] [address] | [phone] | + + + + + Basic Metabolic Panel (12/19/2019 6:26 AM PDT) + + + + + + | Component | Value | Ref Range | Performed | Pathologist | | | | | At | Signature | + + + + + + | Na | 138 | 135 - 145 | [facility] | | | | | mmol/L | LABORATORY | | + + + + + + | K | 3.9 | 3.5 - 4.9 | [facility] | | | | | mmol/L | LABORATORY | | + + + + + + | Cl | 107 | 99 - 109 mmol/L | [facility] | | | | | | LABORATORY | | + + + + + + | CO2 | 20 (L) | 23 - 32 mmol/L | [facility] | | | | | | LABORATORY | | + + + + + + | Anion Gap | 15 | 5 - 20 mmol/L | [facility] | | | | | | LABORATORY | | + + + + + + | Glucose | 113 (H) | 65 - 99 mg/dL | [facility] | | | | | | LABORATORY | | + + + + + + | BUN | 13 | 8 - 25 mg/dL | [facility] | | | | | | LABORATORY | | + + + + + + | Creatinine | 1.08 | 0.70 - 1.30 | [facility] | | | | | mg/dL | LABORATORY | | + + + + + + | BUN/Creatin | 12 | | [facility] | | | ine Ratio | | | LABORATORY | | + + + + + + | Calcium | 8.9 | 8.5 - 10.5 | [facility] | | | | | mg/dL | LABORATORY | | + + + + + + | Estimated | >60Comment: GFR <60: | >60 | [facility] | | | GFR | CHRONIC KIDNEY DISEASE, | mL/min/1.73m2 | LABORATORY | | | | IF FOUND OVER A 3 MONTH | | | | | | PERIOD.GFR <15: KIDNEY | | | | | | FAILURE.FOR | | | | | | AMERICANS, MULTIPLY THE | | | | | | CALCULATED GFR BY | | | | | | 1.210.This eGFR is | | | | | | calculated using the | | | | | | MDRD IDWA traceable | | | | | | equation.Testing | | | | | | performed at [facility];[address] | | | | | | [facility];[place], [place] | | | | | | [address] | | | | + + + + + + + + | Specimen | + + | Blood | + + + + + + + | Performing | Address | City/State/Zipcode | Phone Number | | Organization | | | | + + + + + | [facility] | [address] | [place] [address] | [phone] | + + + + + MRI Brain w wo Contrast (12/18/2019 7:45 PM PDT) + + | Specimen | + + | | + + + + + | Impressions | Performed At | + + + | 1. An 8 x 8 x 11 mm ring enhancing lesion, image 68 series 11, in | [facility] | | the right parieto-occipital junction near the cortical surface. This | | | may represent a septic embolus or simple the enhancement of a | | | subacute infarct. 2. 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 CERTIFIED HISTOLOGIC TECHNICIAN | | | territory including a 1.1 x 2.6 cm infarct of the right occipital | | | lobe, minimal areas of subacute ischemia in the brothers matter of the | | | inferior right parietal lobe, a 4.5 mm infarct of the central right | | | thalamus, a 3 mm infarct at the right side of the posterior body the | | | corpus callosum at the medial border of the atria the right lateral | | | ventricle. These may represent embolic infarcts. 3. There are | | | numerous punctate foci of microhemorrhage in the bihemispheric | | | frontal lobe white matter as well as low signal material in the sulci | | | of the anterior right frontal lobe, mid left frontal lobe, posterior | | | right frontal lobe, bilateral parietal lobes indicating areas of | | | subarachnoid hemorrhage or chronic hemosiderosis. 4. Scalp lipoma of | | | the left forehead measuring 38 x 31 x 7 mm. Final Report | | | Signed by: Taz Mai Edward Sign Date/Time: 12/18/2019 8:18 PM | | | | | + + + + + + | Narrative | Performed At | + + + | MRI BRAIN WITHOUT AND WITH CONTRAST CLINICAL INFORMATION: | [facility] | | Altered mental status. COMPARISON: None PROCEDURE: Sagittal | | | T1, axial FLAIR, axial T2, axial T1, axial gradient susceptibility, | | | axial T1 enhanced, coronal T1 enhanced and axial DWI. Contrast: 5 | | | mL Gadavist IV. FINDINGS: Brain: The DWI sequence shows multiple | | | infarcts in the right CERTIFIED HISTOLOGIC TECHNICIAN territory including an acute 1.1 x 2.6 cm | | | infarct of the right occipital lobe, image 16 series 3, minimal areas | | | of subacute ischemia in the brothers matter of the inferior right | | | parietal lobe, images 9 through 11 of series 3, a 4.5 mm infarct of | | | the central right thalamus, image 12 series 3 and a 3 mm infarct at | | | the right side of the posterior body the corpus callosum at the | | | medial border of the atria the right lateral ventricle. A few | | | scattered foci of chronic microvascular ischemic gliosis are seen in | | | the bihemispheric white matter. The T2*GRE sequence shows numerous | | | punctate foci of microhemorrhage in the bihemispheric frontal lobe | | | white matter as well as low signal material in the sulci of the | | | anterior right frontal lobe, mid left frontal lobe, posterior right | | | frontal lobe, bilateral parietal lobes indicating areas of | | | subarachnoid hemorrhage or chronic hemosiderosis. Following | | | contrast administration there an 8 x 8 x 11 mm ring enhancing lesion, | | | image 68 series 11, in the right parieto-occipital junction near the | | | cortical surface. On the sagittal images this has a lmpstm-jo-miqqt | | | appearance, image 17 series 101. Minimal enhancement of the | | | adjacent cortical surfaces of the inferior right parietal lobe are | | | noted as well. The midline structures including the corpus | | | callosum, bonnie, cerebellar vermis, pituitary and pineal gland are | | | otherwise normal. CSF spaces: The ventricles, cisterns and sulci | | | are mildly enlarged suggesting mild diffuse cortical atrophy. No | | | extra-axial fluid collections are noted. Orbits: Normal. CP | | | Angles and IACs: No masses are seen in the region of the | | | cerebellopontine angles or internal auditory canals. The visualized | | | structures of the temporal bones are normal. Vessels: The | | | intracranial arteries and dural venous sinuses demonstrate normal | | | flow voids on the T2 sequences and enhance normally following | | | contrast administration. No large aneurysm or dural venous sinus | | | thrombosis is noted. Calvarium and extracranial soft tissues: The | | | osseous structures of the calvaria, face and upper cervical region | | | demonstrate normal bone marrow signal intensity. The extracranial | | | soft tissues demonstrate the presence of a lipoma in the left | | | forehead region which measures 38 x 31 x 7 mm, image 9 series 6 and | | | image 22 series 8 Paranasal sinuses and mastoid air cells: Normal. | | | | | + + + + + | Procedure Note | + + | Juan, [id number] - 12/18/2019 8:22 PM PDT | | MRI BRAIN WITHOUT AND WITH CONTRAST | | | | CLINICAL INFORMATION: | | Altered mental status. | | | | COMPARISON: | | None | | | | PROCEDURE: | | Sagittal T1, axial FLAIR, axial T2, axial T1, axial gradient | | susceptibility, axial T1 enhanced, coronal T1 enhanced and axial DWI. | | | | Contrast: 5 mL Gadavist IV. | | | | FINDINGS: | | Brain: The DWI sequence shows multiple infarcts in the right CERTIFIED HISTOLOGIC TECHNICIAN | | territory including an acute 1.1 x 2.6 cm infarct of the right | | occipital lobe, image 16 series 3, minimal areas of subacute ischemia | | in the brothers matter of the inferior right parietal lobe, images 9 | | through 11 of series 3, a 4.5 mm infarct of the central right thalamus, | | image 12 series 3 and a 3 mm infarct at the right side of the posterior | | body the corpus callosum at the medial border of the atria the right | | lateral ventricle. A few scattered foci of chronic microvascular | | ischemic gliosis are seen in the bihemispheric white matter. The | | T2*GRE sequence shows numerous punctate foci of microhemorrhage in the | | bihemispheric frontal lobe white matter as well as low signal material | | in the sulci of the anterior right frontal lobe, mid left frontal lobe, | | posterior right frontal lobe, bilateral parietal lobes indicating areas | | of subarachnoid hemorrhage or chronic hemosiderosis. Following | | contrast administration there an 8 x 8 x 11 mm ring enhancing lesion, | | image 68 series 11, in the right parieto-occipital junction near the | | cortical surface. On the sagittal images this has a vpegha-oi-xbifi | | appearance, image 17 series 101. Minimal enhancement of the adjacent | | cortical surfaces of the inferior right parietal lobe are noted as well. | | | | The midline structures including the corpus callosum, bonnie, cerebellar | | vermis, pituitary and pineal gland are otherwise normal. | | | | CSF spaces: The ventricles, cisterns and sulci are mildly enlarged | | suggesting mild diffuse cortical atrophy. No extra-axial fluid | | collections are noted. | | | | Orbits: Normal. | | | | CP Angles and IACs: No masses are seen in the region of the | | cerebellopontine angles or internal auditory canals. The visualized | | structures of the temporal bones are normal. | | | | Vessels: The intracranial arteries and dural venous sinuses demonstrate | | normal flow voids on the T2 sequences and enhance normally following | | contrast administration. No large aneurysm or dural venous sinus | | thrombosis is noted. | | | | Calvarium and extracranial soft tissues: The osseous structures of the | | calvaria, face and upper cervical region demonstrate normal bone marrow | | signal intensity. The extracranial soft tissues demonstrate the | | presence of a lipoma in the left forehead region which measures 38 x 31 | | x 7 mm, image 9 series 6 and image 22 series 8 | | | | Paranasal sinuses and mastoid air cells: Normal. | | | | IMPRESSION: | | 1. An 8 x 8 x 11 mm ring enhancing lesion, image 68 series 11, in the | | right parieto-occipital junction near the cortical surface. This may | | represent a septic embolus or simple the enhancement of a subacute | | infarct. | | 2. 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 CERTIFIED HISTOLOGIC TECHNICIAN territory including a 1.1 x | | 2.6 cm infarct of the right occipital lobe, minimal areas of subacute | | ischemia in the brothers matter of the inferior right parietal lobe, a 4.5 | | mm infarct of the central right thalamus, a 3 mm infarct at the right | | side of the posterior body the corpus callosum at the medial border of | | the atria the right lateral ventricle. These may represent embolic | | infarcts. | | 3. There are numerous punctate foci of microhemorrhage in the | | bihemispheric frontal lobe white matter as well as low signal material | | in the sulci of the anterior right frontal lobe, mid left frontal lobe, | | posterior right frontal lobe, bilateral parietal lobes indicating areas | | of subarachnoid hemorrhage or chronic hemosiderosis. | | 4. Scalp lipoma of the left forehead measuring 38 x 31 x 7 mm. | | | | | | | | | | Final Report Signed by: Taz Mai Edward | | Sign Date/Time: 12/18/2019 8:18 PM | + + + +---------+ + + | Performing | Address | City/State/Zipcode | Phone Number | | Organization | | | | + +---------+ + + | [facility] | | | | + +---------+ + + Ferritin (12/18/2019 5:52 PM PDT) + + + + + + | Component | Value | Ref Range | Performed | Pathologist | | | | | At | Signature | + + + + + + | Ferritin | 705 (H)Comment: Testing | 30 - 400 ng/mL | [facility] | | | | performed at [facility], | | LABORATORY | | | | [address], | | | | | | [facility] [address] | | | | + + + + + + + + | Specimen | + + | Blood | + + + + + + + | Performing | Address | City/State/Zipcode | Phone Number | | Organization | | | | + + + + + | [facility] | [address] | [place] [address] | [phone] | + + + + + Iron and Iron Binding Capacity (12/18/2019 5:52 PM PDT) + + + + + + | Component | Value | Ref Range | Performed | Pathologist | | | | | At | Signature | + + + + + + | Iron | 58 | 45 - 190 ug/dL | [facility] | | | | | | LABORATORY | | + + + + + + | Iron | 224 (L) | 250 - 450 ug/dL | [facility] | | | Binding | | | LABORATORY | | | Capacity | | | | | + + + + + + | Iron | 26Comment: Testing | 20 - 50 % | [facility] | | | Saturation | performed at [facility], [address] | | LABORATORY | | | | [address], | | | | | | [place] [address] | | | | + + + + + + + + | Specimen | + + | Blood | + + + + + + + | Performing | Address | City/State/Zipcode | Phone Number | | Organization | | | | + + + + + | [facility] | [address] | [place] [address] | [phone] | + + + + + Haptoglobin (12/18/2019 5:52 PM PDT) + + + + + + | Component | Value | Ref Range | Performed | Pathologist | | | | | At | Signature | + + + + + + | Haptoglobin | 281Comment: Testing | 34 - 355 mg/dL | [facility] | | | | performed at [facility], | | LABORATORY | | | | [address], [address], | | | | | | [facility] [address] | | | | + + + + + + + + | Specimen | + + | Blood | + + + + + + + | Performing | Address | City/State/Zipcode | Phone Number | | Organization | | | | + + + + + | [facility] | [address] | [place] [address] | [phone] | + + + + + Hemoglobin and Hematocrit (12/18/2019 5:51 PM PDT) + + + + + + | Component | Value | Ref Range | Performed | Pathologist | | | | | At | Signature | + + + + + + | Hemoglobin | 10.3 (L) | 13.2 - 17.0 | [facility] | | | | | g/dL | LABORATORY | | + + + + + + | Hematocrit | 32.2 (L)Comment: Testing | 39.0 - 50.0 % | [facility] | | | | performed at [facility];[address] | | LABORATORY | | | | [address];[place] | | | | | | [address] | | | | + + + + + + + + | Specimen | + + | Blood | + + + + + + + | Performing | Address | City/State/Zipcode | Phone Number | | Organization | | | | + + + + + | [facility] | [address] | [place] [address] | [phone] | + + + + + Fecal Hemoglobin (12/18/2019 5:30 PM PDT) + + + + + + | Component | Value | Ref Range | Performed | Pathologist | | | | | At | Signature | + + + + + + | FECAL | NEGATIVEComment: Testing | NEG | [facility] | | | OCCULT BLD | performed at [facility];[address] | | LABORATORY | | | | [address];[place], [place] | | | | | | [address] | | | | + + + + + + + + | Specimen | + + | | + + + + + + + | Performing | Address | City/State/Zipcode | Phone Number | | Organization | | | | + + + + + | [facility] | [address] | [place] [address] | [phone] | + + + + + CT Maxillofacial wo Contrast (12/18/2019 2:37 PM PDT) + + | Specimen | + + | | + + + + | Addenda | + + | Addendum by Reji Mai DO on 01/02/2020 2:58 PM ADDENDUM BEGINS | | Additional Clinical Information: Fever, malaise/fatigue. This addendum was issued to | | complete the clinical information only and does not alter the original interpretation | | of the study. Final Report Signed by: Taz Mai Edward Sign | | Date/Time: 01/02/2020 2:54 PM ADDENDUM ENDS | + + + + + | Impressions | Performed At | + + + | 1. Dental caries involving multiple teeth as described above. 2. | [facility] | | Severe dental caries is seen involving the lower right 1st and 2nd | | | molars and the upper left 2nd premolar with erosion of the crowns down | | | to the gumlines. There is lucency surrounding the roots of the | | | lower right 2nd molar suggesting periodontal disease. 3. Cervical | | | degenerative disc and facet disease as noted above. 4. Lingual and | | | buccal side anterior mandibular shahab noted. A maxillary torus is | | | seen in the midline of the hard palate. Final Report | | | Signed by: Taz Mai Edward Sign Date/Time: 12/18/2019 5:57 PM | | | | | + + + + + + | Narrative | Performed At | + + + | CT MAXILLOFACIAL AREA WITHOUT CONTRAST (CPT) CLINICAL | [facility] | | INFORMATION: evaluate for dental abscess/infection COMPARISON: | | | None PROCEDURE: Thin section axial images were obtained through | | | the facial bones. At least one of the following CT dose | | | optimization techniques were used: Automated exposure control; | | | Adjustment of mA and/or kV according to patient size; Use of | | | iterative reconstruction technique. FINDINGS: Imaged portions of | | | the brain: Normal. Orbits: Normal. No orbital wall fractures or | | | intraorbital hematoma. Paranasal sinuses: Normal. No sinus fluid | | | levels or evidence of sinus hematoma. Maxilla and mandible: A | | | central mandibular torus is noted measuring 11 x 13 x 10 mm. There | | | also mandibular shahab seen along the anterior right and left lingual | | | and buccal sides of the mandible. TEETH: Upper Right 3rd Molar | | | (#1): Normal. Upper Right 2nd Molar (#2): Mild dental caries. Upper | | | Right 1st Molar (#3): Cap noted otherwise normal. Upper Right 2nd | | | Premolar (#4): Extracted. Upper Right 1st Premolar (#5): Normal. | | | Upper Right Canine (#6): Normal. Upper Right Lateral Incisor (#7): | | | Normal. Upper Right Central Incisor (#8): Extracted. Upper Left | | | Central Incisor (#9): Normal. Upper Left Lateral Incisor (#10): | | | Normal. Upper Left Canine (#11): Mild dental caries involving the tip | | | of the crown and the buccal side gumline. Upper Left 1st Premolar | | | (#12): Moderate dental caries involving the crown and buccal side gum | | | line. Upper Left 2nd Premolar (#13): Severe dental caries with | | | erosion of the crown down to the gums. Upper Left 1st Molar (#14): | | | Moderate dental caries at the buccal side gumline. Upper Left 2nd | | | Molar (#15): Normal. Upper Left 3rd Molar (#16): Extracted. Lower | | | Left 3rd Molar (#17): Normal. Lower Left 2nd Molar (#18): Moderate | | | dental caries. Lower Left 1st Molar (#19): Extracted. Lower Left 2nd | | | Premolar (#20): Extracted. Lower Left 1st Premolar (#21): Moderate | | | dental caries at the buccal gumline. Lower Left Canine (#22): Mild | | | dental caries at the buccal gumline. Lower Left Lateral Incisor | | | (#23): Normal. Lower Left Central Incisor (#24): Normal. Lower | | | Right Central Incisor (#25): Normal. Lower Right Lateral Incisor | | | (#26): Normal. Lower Right Canine (#27): Normal. Lower Right 1st | | | Premolar (#28): Mild dental caries at the buccal gumline. Lower | | | Right 2nd Premolar (#29): Mild dental caries at the buccal gumline. | | | Lower Right 1st Molar (#30): Severe dental caries with erosion of the | | | crown down to the gum line. Lower Right 2nd Molar (#31): Severe | | | dental caries with erosion of the crown down to the gum line and mild | | | periodontal disease with lucency surrounding the roots. Lower Right | | | 3rd Molar (#32): Normal. Zygoma/zygomatic arches and pterygoid | | | plates: Normal. Temporal bones: Normal. Nasal bones: Normal. | | | Craniocervical junction and imaged portions of the cervical spine: | | | The craniocervical junction appears normal. Mild DJD is seen at the | | | atlantodental joint. There is 3 mm anterior subluxation of C3 on | | | C4. Reversal of the cervical lordosis is seen from C3 through C6. | | | There is degenerative osseous fusion across the C4-5 disc space and | | | left-sided facet joint. There is moderate disc space narrowing and | | | endplate degeneration at C5-6 and C6-7. Uncovertebral joint | | | osteophytes cause significant foraminal narrowing on the left at C3-4 | | | and C4-5 as well as bilaterally at C5-6 and C6-7. Degenerative | | | facet hypertrophy is seen bilaterally at C2-3 and C3-4. | | + + + + + | Procedure Note | + + | Juan, [id number] - 12/18/2019 6:01 PM PDT | | CT MAXILLOFACIAL AREA WITHOUT CONTRAST (CPT) | | | | CLINICAL INFORMATION: | | evaluate for dental abscess/infection | | | | COMPARISON: | | None | | | | PROCEDURE: | | Thin section axial images were obtained through the facial bones. | | | | At least one of the following CT dose optimization techniques were | | used: Automated exposure control; Adjustment of mA and/or kV according | | to patient size; Use of iterative reconstruction technique. | | | | FINDINGS: | | Imaged portions of the brain: Normal. | | | | Orbits: Normal. No orbital wall fractures or intraorbital hematoma. | | | | Paranasal sinuses: Normal. No sinus fluid levels or evidence of sinus | | hematoma. | | | | Maxilla and mandible: A central mandibular torus is noted measuring 11 | | x 13 x 10 mm. There also mandibular shahab seen along the anterior right | | and left lingual and buccal sides of the mandible. | | | | TEETH: | | Upper Right 3rd Molar (#1): Normal. | | Upper Right 2nd Molar (#2): Mild dental caries. | | Upper Right 1st Molar (#3): Cap noted otherwise normal. | | Upper Right 2nd Premolar (#4): Extracted. | | Upper Right 1st Premolar (#5): Normal. | | Upper Right Canine (#6): Normal. | | Upper Right Lateral Incisor (#7): Normal. | | Upper Right Central Incisor (#8): Extracted. | | | | Upper Left Central Incisor (#9): Normal. | | Upper Left Lateral Incisor (#10): Normal. | | Upper Left Canine (#11): Mild dental caries involving the tip of the | | crown and the buccal side gumline. | | Upper Left 1st Premolar (#12): Moderate dental caries involving the | | crown and buccal side gum line. | | Upper Left 2nd Premolar (#13): Severe dental caries with erosion of the | | crown down to the gums. | | Upper Left 1st Molar (#14): Moderate dental caries at the buccal side | | gumline. | | Upper Left 2nd Molar (#15): Normal. | | Upper Left 3rd Molar (#16): Extracted. | | | | Lower Left 3rd Molar (#17): Normal. | | Lower Left 2nd Molar (#18): Moderate dental caries. | | Lower Left 1st Molar (#19): Extracted. | | Lower Left 2nd Premolar (#20): Extracted. | | Lower Left 1st Premolar (#21): Moderate dental caries at the buccal | | gumline. | | Lower Left Canine (#22): Mild dental caries at the buccal gumline. | | Lower Left Lateral Incisor (#23): Normal. | | Lower Left Central Incisor (#24): Normal. | | | | Lower Right Central Incisor (#25): Normal. | | Lower Right Lateral Incisor (#26): Normal. | | Lower Right Canine (#27): Normal. | | Lower Right 1st Premolar (#28): Mild dental caries at the buccal | | gumline. | | Lower Right 2nd Premolar (#29): Mild dental caries at the buccal | | gumline. | | Lower Right 1st Molar (#30): Severe dental caries with erosion of the | | crown down to the gum line. | | Lower Right 2nd Molar (#31): Severe dental caries with erosion of the | | crown down to the gum line and mild periodontal disease with lucency | | surrounding the roots. | | Lower Right 3rd Molar (#32): Normal. | | | | Zygoma/zygomatic arches and pterygoid plates: Normal. | | | | Temporal bones: Normal. | | | | Nasal bones: Normal. | | | | Craniocervical junction and imaged portions of the cervical spine: The | | craniocervical junction appears normal. Mild DJD is seen at the | | atlantodental joint. There is 3 mm anterior subluxation of C3 on C4. | | Reversal of the cervical lordosis is seen from C3 through C6. There is | | degenerative osseous fusion across the C4-5 disc space and left-sided | | facet joint. There is moderate disc space narrowing and endplate | | degeneration at C5-6 and C6-7. Uncovertebral joint osteophytes cause | | significant foraminal narrowing on the left at C3-4 and C4-5 as well as | | bilaterally at C5-6 and C6-7. Degenerative facet hypertrophy is seen | | bilaterally at C2-3 and C3-4. | | | | IMPRESSION: | | 1. Dental caries involving multiple teeth as described above. | | 2. Severe dental caries is seen involving the lower right 1st and 2nd | | molars and the upper left 2nd premolar with erosion of the crowns down | | to the gumlines. There is lucency surrounding the roots of the lower | | right 2nd molar suggesting periodontal disease. | | 3. Cervical degenerative disc and facet disease as noted above. | | 4. Lingual and buccal side anterior mandibular shahab noted. A maxillary | | torus is seen in the midline of the hard palate. | | | | | | | | | | Final Report Signed by: Taz Mai Edward | | Sign Date/Time: 12/18/2019 5:57 PM | + + + +---------+ + + | Performing | Address | City/State/Zipcode | Phone Number | | Organization | | | | + +---------+ + + | [facility] | | | | + +---------+ + + PATHOLOGY CONSULT REQUEST (12/18/2019 11:52 AM PDT) + + + + + + | Component | Value | Ref Range | Performed | Pathologist | | | | | At | Signature | + + + + + + | Comments: | (See Below)Comment: Mild | | [facility] | | | | normocytic normochromic | | LABORATORY | | | | anemia with | | | | | | significantanisocytosis; | | | | | | poikilocytosis is noted | | | | | | by the presence of | | | | | | elliptocytes.Iron | | | | | | studies may aid in | | | | | | evaluation.Vitamin B12 | | | | | | and folate studies may | | | | | | aid in | | | | | | evaluation.Concomitant | | | | | | iron and B12/Folate | | | | | | deficiencies can mask | | | | | | themicrocytosis of iron | | | | | | deficiency.Please | | | | | | correlate with clinical | | | | | | findings. | | | | + + + + + + | Pathologist | (See Below)Comment: | | [facility] | | | | Reviewed by: Ingris carson | | LABORATORY | | | | MD Brain, Pathologist | | | | | | NPI- | | | | | | [id number] | | | | | | [facility] | | | | | | [facility] | | | | | | [place] [address] | | | | + + + + + + | % | 77 | Not Estab. % | [facility] | | | Neutrophils | | | LABORATORY | | + + + + + + | % | 14 | Not Estab. % | [facility] | | | Lymphocytes | | | LABORATORY | | + + + + + + | % Monocytes | 8 | Not Estab. % | [facility] | | | | | | LABORATORY | | + + + + + + | % | 1 | Not Estab. % | [facility] | | | Eosinophils | | | LABORATORY | | + + + + + + | % Basophils | 0 | Not Estab. % | [facility] | | | | | | LABORATORY | | + + + + + + | Absolute | 7.4 (H) | 1.4 - 7.0 | [facility] | | | Neutrophils | | x10E3/uL | LABORATORY | | + + + + + + | Absolute | 1.3 | 0.7 - 3.1 | [facility] | | | Lymphocytes | | x10E3/uL | LABORATORY | | + + + + + + | Absolute | 0.8 | 0.1 - 0.9 | [facility] | | | Monocytes | | x10E3/uL | LABORATORY | | + + + + + + | Absolute | 0.1 | 0.0 - 0.4 | [facility] | | | Eosinophils | | x10E3/uL | LABORATORY | | + + + + + + | Absolute | 0.0 | 0.0 - 0.2 | [facility] | | | Basophils | | x10E3/uL | LABORATORY | | + + + + + + | % Immature | 0 | Not Estab. % | [facility] | | | Granulocyte | | | LABORATORY | | | s | | | | | + + + + + + | Absolute | 0.0 | 0.0 - 0.1 | [facility] | | | Immature | | x10E3/uL | LABORATORY | | | Granulocyte | | | | | | s | | | | | + + + + + + | % nRBC | 0 | 0 - 0 % | [facility] | | | | | | LABORATORY | | + + + + + + | Hematology | Note:Comment: Manual | | [facility] | | | Comments: | differential was | | LABORATORY | | | | performed.Anisocytosis | | | | | | present.Other CBC | | | | | | parameters previously | | | | | | [facility] | | | | | | [place], | | | | | | [place].Testing performed at | | | | | | [facility], [address], | | | | | | [address], [facility] | | | | | | [address] | | | | + + + + + + + + | Specimen | + + | | + + + + + + + | Performing | Address | City/State/Zipcode | Phone Number | | Organization | | | | + + + + + | [facility] | [address] | [place] [address] | [phone] | + + + + + TSH, Reflex Free T4 (12/18/2019 11:52 AM PDT) + + + + + + | Component | Value | Ref Range | Performed | Pathologist | | | | | At | Signature | + + + + + + | TSH | 1.380Comment: Testing | 0.450 - 5.100 | [facility] | | | | performed at [facility];[address] | uIU/mL | LABORATORY | | | | [address];[place], [place] | | | | | | [address] | | | | + + + + + + + + | Specimen | + + | Blood | + + + + + + + | Performing | Address | City/State/Zipcode | Phone Number | | Organization | | | | + + + + + | [facility] | [address] | [place] [address] | [phone] | + + + + + Retic Count (12/18/2019 11:52 AM PDT) + + + + + + | Component | Value | Ref Range | Performed | Pathologist | | | | | At | Signature | + + + + + + | % | 4.7 (H)Comment: Testing | 0.4 - 2.7 % | [facility] | | | Reticulocyt | performed at [facility], [address] | | LABORATORY | | | e Count | [facility], | | | | | | [place] [address] | | | | + + + + + + + + | Specimen | + + | Blood | + + + + + + + | Performing | Address | City/State/Zipcode | Phone Number | | Organization | | | | + + + + + | [facility] | [address] | [place] [address] | [phone] | + + + + + Lactate Dehydrogenase (12/18/2019 11:52 AM PDT) + + + + + + | Component | Value | Ref Range | Performed | Pathologist | | | | | At | Signature | + + + + + + | LDH TOTAL | 244Comment: Testing | 120 - 246 U/L | [facility] | | | | performed at [facility];[address] | | LABORATORY | | | | [address];[place] | | | | | | [address] | | | | + + + + + + + + | Specimen | + + | Blood | + + + + + + + | Performing | Address | City/State/Zipcode | Phone Number | | Organization | | | | + + + + + | [facility] | [address] | [place] [address] | [phone] | + + + + + Red Blood Cells (PRBC) - Crossmatch (12/18/2019 9:50 AM PDT) + + + + + + | Component | Value | Ref Range | Performed | Pathologist | | | | | At | Signature | + + + + + + | Product | RED CELL GROUP | | [facility] | | | Code | | | LABORATORY | | + + + + + + | Units | 2 | | [facility] | | | ordered | | | LABORATORY | | + + + + + + | BLOOD BANK | ORDER RECEIVED IN BLOOD | | [facility] | | | COMMENT | BANK. | | LABORATORY | | + + + + + + | BLOOD BANK | Testing performed at | | [facility] | | | COMMENT | [facility];[address] | | LABORATORY | | | | [address];[place] [address] | | | | + + + + + + + + | Specimen | + + | | + + + + + + + | Performing | Address | City/State/Zipcode | Phone Number | | Organization | | | | + + + + + | [facility] | [address] | [place] [address] | [phone] | + + + + + Red Blood Cells (PRBC) - Crossmatch (12/18/2019 8:12 AM PDT) + + + + + + | Component | Value | Ref Range | Performed | Pathologist | | | | | At | Signature | + + + + + + | Product | RED CELL GROUP | | [facility] | | | Code | | | LABORATORY | | + + + + + + | Units | 1 | | [facility] | | | ordered | | | LABORATORY | | + + + + + + | BLOOD BANK | ORDER RECEIVED IN BLOOD | | [facility] | | | COMMENT | BANK. | | LABORATORY | | + + + + + + | BLOOD BANK | Testing performed at | | [facility] | | | COMMENT | [facility];[address] | LABORATORY | | | [address];[place] [address] | | | | + + + + + + + + | Specimen | + + | | + + + + + + + | Performing | Address | City/State/Zipcode | Phone Number | | Organization | | | | + + + + + | [facility] | [address] | [place] [address] | [phone] | + + + + + Type and Screen (12/18/2019 7:59 AM PDT) + + + + + + | Component | Value | Ref Range | Performed | Pathologist | | | | | At | Signature | + + + + + + | ABO Rh | O POSITIVE | | [facility] | | | | | | LABORATORY | | + + + + + + | Antibody | NEGATIVE | | [facility] | | | Screen | | | LABORATORY | | + + + + + + | BB BAND | [id number] | | [facility] | | | | | | LABORATORY | | + + + + + + | UNIT # | [id number] | | [facility] | | | | | | LABORATORY | | + + + + + + | Product | LEUKODEPLETED PC | | [facility] | | | Code | | | LABORATORY | | + + + + + + | Unit | 00 | | [facility] | | | Division | | | LABORATORY | | + + + + + + | Unit Status | ISSUED,FINAL | | [facility] | | | | | | LABORATORY | | + + + + + + | Transfusion | OK TO TRANSFUSE | | [facility] | | | Status | | | LABORATORY | | + + + + + + | CROSSMATCH | COMPATIBLE | | [facility] | | | RESULT | | | LABORATORY | | + + + + + + | UNIT # | [id number] | | [facility] | | | | | | LABORATORY | | + + + + + + | Product | LEUKODEPLETED PC | | [facility] | | | Code | | | LABORATORY | | + + + + + + | Unit | 00 | | [facility] | | | Division | | | LABORATORY | | + + + + + + | Unit Status | ISSUED,FINAL | | [facility] | | | | | | LABORATORY | | + + + + + + | Transfusion | OK TO TRANSFUSE | | [facility] | | | Status | | | LABORATORY | | + + + + + + | CROSSMATCH | COMPATIBLE | | [facility] | | | RESULT | | | LABORATORY | | + + + + + + | UNIT # | [id number] | | [facility] | | | | | | LABORATORY | | + + + + + + | Product | LEUKODEPLETED PC | | [facility] | | | Code | | | LABORATORY | | + + + + + + | Unit | 00 | | [facility] | | | Division | | | LABORATORY | | + + + + + + | Unit Status | REL FROM ALLOC | | [facility] | | | | | | LABORATORY | | + + + + + + | Transfusion | OK TO TRANSFUSE | | [facility] | | | Status | | | LABORATORY | | + + + + + + | CROSSMATCH | COMPATIBLETesting | | [facility] | | | RESULT | performed at [facility];[address] | | LABORATORY | | | | [address];[place], [place] | | | | | | [address] | | | | + + + + + + + + | Specimen | + + | Blood | + + + + + + + | Performing | Address | City/State/Zipcode | Phone Number | | Organization | | | | + + + + + | [facility] | [address] | [place] [address] | [phone] | + + + + + Protime INR (12/18/2019 5:54 AM PDT) + + + + + + | Component | Value | Ref Range | Performed | Pathologist | | | | | At | Signature | + + + + + + | INR | 1.0Comment: REFERENCE | | [facility] | | | | RANGE:0.9 - 1.2 | | LABORATORY | | | | NON-ANTICOAGULATED2.0 | | | | | | - 3.0 ALL OTHER | | | | | | THERAPEUTIC | | | | | | INDICATIONS2.5 - 3.5 | | | | | | MECHANICAL HEART VALVES, | | | | | | RECURRENT OR SYSTEMIC | | | | | | EMBOLISMTesting | | | | | | performed at [facility];[address] | | | [address];[place] | | | | | | [address] | | | | + + + + + + + + | Specimen | + + | Blood | + + + + + + + | Performing | Address | City/State/Zipcode | Phone Number | | Organization | | | | + + + + + | [facility] | [address] | [place] [address] | [phone] | + + + + + CBC no Differential (12/18/2019 5:54 AM PDT) + + + + + + | Component | Value | Ref Range | Performed | Pathologist | | | | | At | Signature | + + + + + + | WBC | 9.59 | 3.80 - 11.00 | [facility] | | | | | K/uL | LABORATORY | | + + + + + + | Red Blood | 2.53 (L) | 4.20 - 5.70 | [facility] | | | Cells | | M/uL | LABORATORY | | + + + + + + | Hemoglobin | 6.6 (LL)Comment: RESULT | 13.2 - 17.0 | [facility] | | | | READ BACK BY: JIMMY | g/dL | LABORATORY | | | | D[address] [id number] VL | | | | | | | | | | | | | | | | + + + + + + | Hematocrit | 21.6 (L) | 39.0 - 50.0 % | [facility] | | | | | | LABORATORY | | + + + + + + | MCV | 85.4 | 80.0 - 100.0 fl | [facility] | | | | | | LABORATORY | | + + + + + + | MCH | 26.1 (L) | 27.0 - 34.0 pg | [facility] | | | | | | LABORATORY | | + + + + + + | MCHC | 30.6 (L) | 32.0 - 35.5 | [facility] | | | | | g/dL | LABORATORY | | + + + + + + | RDW-SD | 55.2 (H) | 37 - 53 fl | [facility] | | | | | | LABORATORY | | + + + + + + | Platelet | 319 | 150 - 400 K/uL | [facility] | | | Count | | | LABORATORY | | + + + + + + | MPV | 10.0Comment: NO NORMAL | fl | [facility] | | | | RANGE ESTABLISHEDTesting | | LABORATORY | | | | performed at [facility], [address] | | | | | [address], | | | | | | [place] [address] | | | | + + + + + + + + | Specimen | + + | Blood | + + + + + + + | Performing | Address | City/State/Zipcode | Phone Number | | Organization | | | | + + + + + | [facility] | [address] | [place] [address] | [phone] | + + + + + Basic Metabolic Panel (12/18/2019 5:54 AM PDT) + + + + + + | Component | Value | Ref Range | Performed | Pathologist | | | | | At | Signature | + + + + + + | Na | 142 | 135 - 145 | [facility] | | | | | mmol/L | LABORATORY | | + + + + + + | K | 3.8 | 3.5 - 4.9 | [facility] | | | | | mmol/L | LABORATORY | | + + + + + + | Cl | 111 (H) | 99 - 109 mmol/L | [facility] | | | | | | LABORATORY | | + + + + + + | CO2 | 23 | 23 - 32 mmol/L | [facility] | | | | | | LABORATORY | | + + + + + + | Anion Gap | 12 | 5 - 20 mmol/L | [facility] | | | | | | LABORATORY | | + + + + + + | Glucose | 99 | 65 - 99 mg/dL | [facility] | | | | | | LABORATORY | | + + + + + + | BUN | 13 | 8 - 25 mg/dL | [facility] | | | | | | LABORATORY | | + + + + + + | Creatinine | 0.90 | 0.70 - 1.30 | [facility] | | | | | mg/dL | LABORATORY | | + + + + + + | BUN/Creatin | 14 | | [facility] | | | ine Ratio | | | LABORATORY | | + + + + + + | Calcium | 7.9 (L) | 8.5 - 10.5 | [facility] | | | | | mg/dL | LABORATORY | | + + + + + + | Estimated | >60Comment: GFR <60: | >60 | [facility] | | | GFR | CHRONIC KIDNEY DISEASE, | mL/min/1.73m2 | LABORATORY | | | | IF FOUND OVER A 3 MONTH | | | | | | PERIOD.GFR <15: KIDNEY | | | | | | FAILURE.FOR | | | | | | AMERICANS, MULTIPLY THE | | | | | | CALCULATED GFR BY | | | | | | 1.210.This eGFR is | | | | | | calculated using the | | | | | | MDRD [facility] traceable | | | | | | equation.Testing | | | | | | performed at [facility], [address] | | | | | [facility], | | | | | | [place] [address] | | | | + + + + + + + + | Specimen | + + | Blood | + + + + + + + | Performing | Address | City/State/Zipcode | Phone Number | | Organization | | | | + + + + + | [facility] | [address] | [place] [address] | [phone] | + + + + + Vancomycin Level (12/18/2019 5:54 AM PDT) + + + + + + | Component | Value | Ref Range | Performed | Pathologist | | | | | At | Signature | + + + + + + | Vancomycin | 11.1Comment: Testing | ug/mL | [facility] | | | Random, | performed at [facility];[address] | | LABORATORY | | | Serum | [address];[place], [place] | | | | | | [address] | | | | + + + + + + + + | Specimen | + + | Blood | + + + + + + + | Performing | Address | City/State/Zipcode | Phone Number | | Organization | | | | + + + + + | [facility] | [address] | [place] [address] | [phone] | + + + + + CBC with Differential (12/17/2019 4:22 PM PDT) + + + + + + | Component | Value | Ref Range | Performed | Pathologist | | | | | At | Signature | + + + + + + | WBC | 9.24 | 3.80 - 11.00 | [facility] | | | | | K/uL | LABORATORY | | + + + + + + | Red Blood | 2.71 (L) | 4.20 - 5.70 | [facility] | | | Cells | | M/uL | LABORATORY | | + + + + + + | Hemoglobin | 7.0 (L) | 13.2 - 17.0 | [facility] | | | | | g/dL | LABORATORY | | + + + + + + | Hematocrit | 23.1 (L) | 39.0 - 50.0 % | [facility] | | | | | | LABORATORY | | + + + + + + | MCV | 85.2 | 80.0 - 100.0 fl | [facility] | | | | | | LABORATORY | | + + + + + + | MCH | 25.8 (L) | 27.0 - 34.0 pg | [facility] | | | | | | LABORATORY | | + + + + + + | MCHC | 30.3 (L) | 32.0 - 35.5 | [facility] | | | | | g/dL | LABORATORY | | + + + + + + | RDW-SD | 55.2 (H) | 37 - 53 fl | [facility] | | | | | | LABORATORY | | + + + + + + | Platelet | 316 | 150 - 400 K/uL | [facility] | | | Count | | | LABORATORY | | + + + + + + | MPV | 9.2Comment: NO NORMAL | fl | [facility] | | | | RANGE ESTABLISHED | | LABORATORY | | + + + + + + | Diff Type | AUTOMATED | | [facility] | | | | | | LABORATORY | | + + + + + + | % nRBC | 0.0 | 0 /100WBC | [facility] | | | | | | LABORATORY | | + + + + + + | % | 71.40 | % | [facility] | | | Neutrophils | | | LABORATORY | | + + + + + + | IMMATURE | 1.10 | % | [facility] | | | GRANULOCYTE | | | LABORATORY | | + + + + + + | % | 18.60 | % | [facility] | | | Lymphocytes | | | LABORATORY | | + + + + + + | Monocyte % | 8.40 | % | [facility] | | | | | | LABORATORY | | + + + + + + | Eosinophils | 0.30 | % | [facility] | | | % | | | LABORATORY | | + + + + + + | Basophils % | 0.20 | % | [facility] | | | | | | LABORATORY | | + + + + + + | Neutrophils | 6.59 | 1.90 - 7.40 | [facility] | | | , Absolute | | K/uL | LABORATORY | | + + + + + + | IMMATURE | 0.10 (H)Comment: NOTE | 0.00 - 0.07 | [facility] | | | GRANS AB | NEW REFERENCE RANGE | K/uL | LABORATORY | | + + + + + + | Absolute | 1.72 | 1.00 - 3.90 | [facility] | | | Lymphocytes | | K/uL | LABORATORY | | + + + + + + | Absolute | 0.78 | 0.00 - 0.80 | [facility] | | | Monocytes | | K/uL | LABORATORY | | + + + + + + | Eosinophils | 0.03 | 0.00 - 0.50 | [facility] | | | , Absolute | | K/uL | LABORATORY | | + + + + + + | Basophils, | 0.02Comment: Testing | 0.00 - 0.10 | [facility] | | | Absolute | performed at [facility];[address] | K/uL | LABORATORY | | | | [address];[place] | | | | | | [address] | | | | + + + + + + + + | Specimen | + + | Blood | + + + + + + + | Performing | Address | City/State/Zipcode | Phone Number | | Organization | | | | + + + + + | [facility] | [address] | [place] [address] | [phone] | + + + + + XR Chest AP Portable (12/17/2019 3:58 PM PDT) + + | Specimen | + + | | + + + + + | Impressions | Performed At | + + + | Mild increased prominence of reticular interstitial markings | [facility] | | throughout both lungs, but with preservation of lung volumes from the | | | prior exam. Mild interstitial edema is possible. Could also | | | represent viral or reactive process Final Report Signed by: | | | Fernando Bennett Timothy Sign Date/Time: 12/17/2019 4:30 PM | | + + + + + + | Narrative | Performed At | + + + | CHEST PORTABLE ONE VIEW CLINICAL INFORMATION: Pre operative | [facility] | | examination. COMPARISON: XR CHEST AP PORTABLE (10/31/2019); | | | FINDINGS: Stable mediastinum to technique without deviation midline | | | structures. Some vasculopathy arch. Typical for age Lung | | | markings are somewhat coarse throughout, somewhat increasingly so | | | when compared to the prior examination but there is no focal | | | infiltrate or consolidation. Some Kyra lines at the left | | | costophrenic angle, for example No pneumothorax No effusion | | | Skeleton with degenerative change of the shoulders, not unusual | | + + + + + | Procedure Note | + + | Juan, [id number] - 12/17/2019 4:34 PM PDT | | CHEST PORTABLE ONE VIEW | | | | CLINICAL INFORMATION: | | Pre operative examination. | | | | COMPARISON: | | XR CHEST AP PORTABLE (10/31/2019); | | | | FINDINGS: | | Stable mediastinum to technique without deviation midline structures. | | Some vasculopathy arch. Typical for age | | | | Lung markings are somewhat coarse throughout, somewhat increasingly so | | when compared to the prior examination but there is no focal infiltrate | | or consolidation. Some Kyra lines at the left costophrenic angle, | | for example | | | | No pneumothorax | | No effusion | | | | Skeleton with degenerative change of the shoulders, not unusual | | | | IMPRESSION: | | Mild increased prominence of reticular interstitial markings throughout | | both lungs, but with preservation of lung volumes from the prior exam. | | | | Mild interstitial edema is possible. | | Could also represent viral or reactive process | | | | | | | | Final Report Signed by: Fernando Bennett Timothy | | Sign Date/Time: 12/17/2019 4:30 PM | + + + +---------+ + + | Performing | Address | City/State/Zipcode | Phone Number | | Organization | | | | + +---------+ + + | [facility] | | | | + +---------+ + + Basic Metabolic Panel (12/17/2019 4:43 AM PDT) + + + + + + | Component | Value | Ref Range | Performed | Pathologist | | | | | At | Signature | + + + + + + | Na | 141 | 135 - 145 | [facility] | | | | | mmol/L | LABORATORY | | + + + + + + | K | 3.6 | 3.5 - 4.9 | [facility] | | | | | mmol/L | LABORATORY | | + + + + + + | Cl | 109 | 99 - 109 mmol/L | [facility] | | | | | | LABORATORY | | + + + + + + | CO2 | 21 (L) | 23 - 32 mmol/L | [facility] | | | | | | LABORATORY | | + + + + + + | Anion Gap | 15 | 5 - 20 mmol/L | [facility] | | | | | | LABORATORY | | + + + + + + | Glucose | 104 (H) | 65 - 99 mg/dL | [facility] | | | | | | LABORATORY | | + + + + + + | BUN | 18 | 8 - 25 mg/dL | [facility] | | | | | | LABORATORY | | + + + + + + | Creatinine | 0.90 | 0.70 - 1.30 | [facility] | | | | | mg/dL | LABORATORY | | + + + + + + | BUN/Creatin | 20 | | [facility] | | | ine Ratio | | | LABORATORY | | + + + + + + | Calcium | 8.2 (L) | 8.5 - 10.5 | [facility] | | | | | mg/dL | LABORATORY | | + + + + + + | Estimated | >60Comment: GFR <60: | >60 | [facility] | | | GFR | CHRONIC KIDNEY DISEASE, | mL/min/1.73m2 | LABORATORY | | | | IF FOUND OVER A 3 MONTH | | | | | | PERIOD.GFR <15: KIDNEY | | | | | | FAILURE.FOR | | | | | | AMERICANS, MULTIPLY THE | | | | | | CALCULATED GFR BY | | | | | | 1.210.This eGFR is | | | | | | calculated using the | | | | | | MDRD [facility] traceable | | | | | | equation.Testing | | | | | | performed at [facility], [address] | | | | | [facility], | | | | | | [place] [address] | | | | + + + + + + + + | Specimen | + + | Blood | + + + + + + + | Performing | Address | City/State/Zipcode | Phone Number | | Organization | | | | + + + + + | [facility] | [address] | [place] [address] | [phone] | + + + + + Coronavirus (COVID-19) NAAT (12/16/2019 11:14 PM PDT) + + + + + + | Component | Value | Ref Range | Performed | Pathologist | | | | | At | Signature | + + + + + + | SARS-CoV-2, | NEGATIVEComment: This | NEG | [facility] | | | NAAT | test was developed and | | LABORATORY | | | (COVID-19) | its performance | | | | | | characteristics | | | | | | determined byCepheid. It | | | | | | has not been cleared or | | | | | | approved by the [place] FDA. | | | | | | This test has | | | | | | beenauthorized by FDA | | | | | | under an Emergency Use | | | | | | Authorization (EUA). | | | | | | Clinicians shouldbe | | | | | | advised to consider a | | | | | | patients signs, | | | | | | symptoms, history, and | | | | | | results ofother | | | | | | diagnostic tests when | | | | | | interpreting | | | | | | results.Testing | | | | | | performed at [facility] | | | | | | [facility];[place], [place] | | | | | | [address] | | | | + + + + + + + + | Specimen | + + | | + + + + + + + | Performing | Address | City/State/Zipcode | Phone Number | | Organization | | | | + + + + + | [facility] | [address] | [place] [address] | [phone] | + + + + + Culture, Blood (12/16/2019 7:25 PM PDT) + + + + + + | Component | Value | Ref Range | Performed | Pathologist | | | | | At | Signature | + + + + + + | Special | LEFT HAND | | [facility] | | | Requests | | | LABORATORY | | + + + + + + | Special | Testing performed at | | [facility] | | | Requests | [facility];[address] | | LABORATORY | | | | [address];[place] [address] | | | | + + + + + + | RESULT | NO GROWTH 6 DAYS | | [facility] | | | | | | LABORATORY | | + + + + + + | RESULT | Testing performed at | | [facility] | | | | [facility], [address] | | LABORATORY | | | | [place] | | | | | | [id number]: Testing | | | | | | performed at [facility], [address] | [address], [place], [place] | | | | | | [address] | | | | + + + + + + + + | Specimen | + + | Blood - Peripheral | | blood specimen | | (specimen) | + + + + + + + | Performing | Address | City/State/Zipcode | Phone Number | | Organization | | | | + + + + + | [facility] | [address] | [place] [address] | [phone] | + + + + + Culture, Blood (12/16/2019 7:25 PM PDT) + + + + + + | Component | Value | Ref Range | Performed | Pathologist | | | | | At | Signature | + + + + + + | Special | RIGHT HAND | | [facility] | | | Requests | | | LABORATORY | | + + + + + + | Special | Testing performed at | | [facility] | | | Requests | [facility];[address] | | LABORATORY | | | | [address];[place] [address] | | | | + + + + + + | RESULT | NO GROWTH 6 DAYS | | [facility] | | | | | | LABORATORY | | + + + + + + | RESULT | Testing performed at | | [facility] | | | | [facility], [address] | | LABORATORY | | | | [place], [place] | | | | | | [address]Uopqhwp: Testing | | | | | | performed at [facility], [address] | | [address] | [address], [place], [place] | | | | | | [address] | | | | + + + + + + + + | Specimen | + + | Blood - Peripheral | | blood specimen | | (specimen) | + + + + + + + | Performing | Address | City/State/Zipcode | Phone Number | | Organization | | | | + + + + + | [facility] | [address] | [place] [address] | [phone] | + + + + + documented in this encounter Visit Diagnoses + + | Diagnosis | + + | Acute bacterial endocarditis Acute and subacute bacterial endocarditis | + + documented in this encounter Admitting Diagnoses + + | Diagnosis | + + | Endocarditis of mitral valve | + + documented in this encounter Administered Medications + +--------+ + +------+------+ | Medication Order | MAR | Action | Dose | Rate | Site | | | Action | Date | | | | + +--------+ + +------+------+ | acetaminophen (TYLENOL) tablet | Given | 12/29/19 | 1,000 mg | | | | 1,000 mg 1,000 mg, Oral, EVERY 8 | | 20 5:25 | | | | | HOURS, First dose on Sun12/24/19 | | AM PDT | | | | | at 1400, Start 8 hours after | | | | | | | pre-op dose., | | | | | | + +--------+ + +------+------+ +-------+ + +---+---+ | Given | 12/28/19 | 1,000 mg | | | | | 20 9:20 | | | | | | PM PDT | | | | +-------+ + +---+---+ | Given | 12/28/19 | 1,000 mg | | | | | 20 1:12 | | | | | | PM PDT | | | | +-------+ + +---+---+ +---+---+ | | | +---+---+ + +-------+ +--------+---+---+ | ascorbic acid (VITAMIN C) | Given | 12/31/19 | 500 mg | | | | tablet 500 mg 500 mg, Oral, | | 20 7:44 | | | | | DAILY, First dose on Sun12/29/19 | | AM PDT | | | | | at 0900 | | | | | | + +-------+ +--------+---+---+ +-------+ +--------+---+---+ | Given | 12/30/19 | 500 mg | | | | | 20 9:40 | | | | | | AM PDT | | | | +-------+ +--------+---+---+ | Given | 12/29/19 | 500 mg | | | | | 20 8:54 | | | | | | AM PDT | | | | +-------+ +--------+---+---+ +---+---+ | | | +---+---+ + +-------+ +-------+---+---+ | atorvaSTATin (LIPITOR) tablet | Given | 12/30/19 | 40 mg | | | | 40 mg 40 mg, Oral, NIGHTLY, | | 20 8:10 | | | | | First dose on Sun12/24/19 at 2100 | | PM PDT | | | | + +-------+ +-------+---+---+ +-------+ +-------+---+---+ | Given | 12/29/19 | 40 mg | | | | | 20 8:16 | | | | | | PM PDT | | | | +-------+ +-------+---+---+ | Given | 12/28/19 | 40 mg | | | | | 20 9:20 | | | | | | PM PDT | | | | +-------+ +-------+---+---+ +---+---+ | | | +---+---+ + +---------+ +-----+-------+---+ | cefTRIAXone (ROCEPHIN) IVPB 2 g | New Bag | 12/31/19 | 2 g | 100 | | | 2 g, Intravenous, Administer | | 20 8:45 | | mL/hr | | | over 30 Minutes, EVERY 12 HOURS, | | AM PDT | | | | | First dose on Sun12/24/19 at | | | | | | | 2100, Keep in refrigerator., | | | | | | | Indications: Bacteremia | | | | | | + +---------+ +-----+-------+---+ +---------+ +-----+-------+---+ | New Bag | 12/30/19 | 2 g | 100 | | | | 20 8:10 | | mL/hr | | | | PM PDT | | | | +---------+ +-----+-------+---+ | New Bag | 12/30/19 | 2 g | 100 | | | | 20 9:40 | | mL/hr | | | | AM PDT | | | | +---------+ +-----+-------+---+ + +---+ | | | + +---+ | dextrose 10% (D10W) infusion | | | at 50 mL/hr, Intravenous, | | | CONTINUOUS PRN, hypoglycemia, | | | Starting [facility] 12/25/19 at 1512, | | | Start infusion if unable to | | | maintain blood glucose greater | | | than 70 mg/dL after two rounds of | | | hypoglycemia treatment. Recheck | | | blood glucose 30 minutes after | | | starting D10W then at least | | | hourly and PRN until it is | | | discontinued. Call provider to | | | discuss parameters for D10W | | | discontinuation., | | + +---+ | | | + +---+ | dextrose 50% injection 12.5-25 | | | g 12.5-25 g, Intravenous, PRN, | | | Low Blood Sugar, Starting Breana | | | 12/25/19 at 1512, For blood | | | glucose 50-69 mg/dl - give 12.5 g | | | For blood glucose less than 50 | | | mg/dl - give 25 g, | | + +---+ | | | + +---+ + +-------+ +--------+---+---+ | ferrous sulfate tablet 325 mg | Given | 12/31/19 | 325 mg | | | | 325 mg, Oral, 2 TIMES DAILY WITH | | 20 7:44 | | | | | BREAKFAST & DINNER, First dose on | | AM PDT | | | | | 12/29/19 at 0800 | | | | | | + +-------+ +--------+---+---+ +-------+ +--------+---+---+ | Given | 12/30/19 | 325 mg | | | | | 20 5:02 | | | | | | PM PDT | | | | +-------+ +--------+---+---+ | Given | 12/30/19 | 325 mg | | | | | 20 9:40 | | | | | | AM PDT | | | | +-------+ +--------+---+---+ +---+---+ | | | +---+---+ + +-------+ +-------+---+---+ | furosemide (LASIX) injection 40 | Given | 12/30/19 | 40 mg | | | | mg 40 mg, Intravenous, 2 TIMES | | 20 9:40 | | | | | DAILY 0800 & 1600, First dose on | | AM PDT | | | | | 12/29/19 at 0815 | | | | | | + +-------+ +-------+---+---+ +-------+ +-------+---+---+ | Given | 12/29/19 | 40 mg | | | | | 20 5:26 | | | | | | PM PDT | | | | +-------+ +-------+---+---+ | Given | 12/29/19 | 40 mg | | | | | 20 8:53 | | | | | | AM PDT | | | | +-------+ +-------+---+---+ + +---+ | | | + +---+ | gadobutrol (GADAVIST) injection | | | 6 mL 6 mL, Intravenous, ONCE | | | PRN, Other, Starting 12/28/19 | | | at 2140, For 1 dose, MRI | | + +---+ | | | + +---+ + +-------+ +--------+---+ + | heparin 5,000 units/mL | Given | 12/29/19 | 5,000 | | Abdomen- | | injection 5,000 Units 5,000 | | 20 8:17 | Units | | LLQ | | Units, Subcutaneous, EVERY 8 | | PM PDT | | | | | HOURS, First dose on [facility] 12/25/19 | | | | | | | at 0800 | | | | | | + +-------+ +--------+---+ + +-------+ +--------+---+ + | Given | 12/29/19 | 5,000 | | Abdomen- | | | 20 5:25 | Units | | RLQ | | | AM PDT | | | | +-------+ +--------+---+ + | Given | 12/28/19 | 5,000 | | Abdomen- | | | 20 9:19 | Units | | RLQ | | | PM PDT | | | | +-------+ +--------+---+ + +---+---+ | | | +---+---+ + +-------+ +-------+---+---+ | hydrALAZINE (APRESOLINE) | Given | 12/28/19 | 20 mg | | | | injection 10-20 mg 10-20 mg, | | 20 6:53 | | | | | Intravenous, EVERY 6 HOURS PRN, | | AM PDT | | | | | HTN, Starting 12/27/19 at | | | | | | | 0818, For Goal SBP less than 130, | | | | | | | | | | | | | + +-------+ +-------+---+---+ +-------+ +-------+---+---+ | Given | 12/27/19 | 10 mg | | | | | 20 10:17 | | | | | | PM PDT | | | | +-------+ +-------+---+---+ | Given | 12/27/19 | 10 mg | | | | | 20 9:47 | | | | | | AM PDT | | | | +-------+ +-------+---+---+ +---+---+ | | | +---+---+ + +-------+ +--------+---+---+ | HYDROmorphone (DILAUDID) | Given | 12/26/19 | 0.4 mg | | | | injection 0.2-0.4 mg 0.2-0.4 mg, | | 20 2:22 | | | | | Intravenous, EVERY 1 HOUR PRN, | | PM PDT | | | | | Pain, Starting 12/24/19 at | | | | | | | 1309, If oral route not an | | | | | | | option. Slow IV push, not faster | | | | | | | than 0.3mg/minute. First dose | | | | | | | must be lowest dose, titrate to | | | | | | | effective dose by repeat of | | | | | | | lowest dose every 30 minutes prn | | | | | | | pain, may not exceed maximum dose | | | | | | | ordered per interval. Use | | | | | | | Pasero Sedation Scale., | | | | | | + +-------+ +--------+---+---+ +-------+ +--------+---+---+ | Given | 12/26/19 | 0.4 mg | | | | | 20 11:32 | | | | | | AM PDT | | | | +-------+ +--------+---+---+ | Given | 12/26/19 | 0.4 mg | | | | | 20 8:45 | | | | | | AM PDT | | | | +-------+ +--------+---+---+ +---+---+ | | | +---+---+ + +-------+ +---------+---+---+ | HYDROmorphone (DILAUDID) | Given | 12/27/19 | 0.25 mg | | | | injection 0.25-1 mg 0.25-1 mg, | | 20 1:52 | | | | | Intravenous, EVERY 10 MIN PRN, | | AM PDT | | | | | Pain, Starting 12/24/19 at | | | | | | | 1309, While intubated only. To | | | | | | | maximum of 6 mg in 4 hours., | | | | | | + +-------+ +---------+---+---+ +---+---+ | | | +---+---+ + +-------+ +---------+---+ + | insulin lispro (humaLOG) | Given | 12/27/19 | 3 Units | | Abdomen- | | injection (vial) 0-18 Units 0-18 | | 20 12:34 | | | RUQ | | Units, Subcutaneous, 4 TIMES | | PM PDT | | | | | DAILY WITH MEALS & NIGHTLY, First | | | | | | | dose on Breana 12/25/19 at 1700, | | | | | | | CORRECTION SCALE: Blood Glucose | | | | | | | (BG) < 150: None | | | | | | | BG 150-200: DAY: 3 units. | | | | | | | NIGHT: 0 units BG 201-250: DAY: | | | | | | | 6 units. NIGHT: 3 units BG | | | | | | | 251-300: DAY: 9 units. NIGHT: | | | | | | | 6 units BG 301-350: DAY: 12 | | | | | | | units. NIGHT: 9 units BG | | | | | | | 351-400: DAY: 15 units. NIGHT: | | | | | | | 12 units BG > 400 : DAY: 18 | | | | | | | units. NIGHT: 15 units | | | | | | | AND CALL PROVIDER | | | | | | | Use DAY DOSE for doses | | | | | | | scheduled: AC, NPO, Daytime | | | | | | | [phone] Use NIGHT DOSE for | | | | | | | doses scheduled: HS, | | | | | | | Nighttime [phone] If the BG is | | | | | | | not checked before the patient | | | | | | | starts eating, do not give | | | | | | | correction insulin. Only for use | | | | | | | with U-100 insulin syringe., | | | | | | + +-------+ +---------+---+ + +---+---+ | | | +---+---+ + +---------+ +--------+-------+---+ | levETIRAcetam (KEPPRA) 500 mg | New Bag | 12/31/19 | 500 mg | 420 | | | in sodium chloride 0.9% 100 mL | | 20 5:27 | | mL/hr | | | IVPB 500 mg, Intravenous, | | AM PDT | | | | | Administer over 15 Minutes, EVERY | | | | | | | 12 HOURS INTERVAL, First dose on | | | | | | | [facility] 12/25/19 at 0500 | | | | | | + +---------+ +--------+-------+---+ +---------+ +--------+-------+---+ | New Bag | 12/30/19 | 500 mg | 420 | | | | 20 6:22 | | mL/hr | | | | PM PDT | | | | +---------+ +--------+-------+---+ | New Bag | 12/30/19 | 500 mg | 420 | | | | 20 5:57 | | mL/hr | | | | AM PDT | | | | +---------+ +--------+-------+---+ +---+---+ | | | +---+---+ + +-------+ +------+---+ + | lidocaine 1% injection PRN, | Given | 12/20/19 | 1 mL | | Surgical | | Starting 12/20/19 at 1158, | | 20 11:58 | | | Site | | Intra-op | | AM PDT | | | | + +-------+ +------+---+ + +---+---+ | | | +---+---+ + +-------+ +--------+---+ + | lidocaine 1%-EPINEPHrine | Given | 12/20/19 | 20 mLs | | Surgical | | 1:100,000 injection PRN, | | 20 10:42 | | | Site | | Starting 12/20/19 at 1042, | | AM PDT | | | | | Intra-op | | | | | | + +-------+ +--------+---+ + +---+---+ | | | +---+---+ + +-------+ +--------+---+---+ | lisinopril (PRINIVIL, ZESTRIL) | Given | 12/31/19 | 2.5 mg | | | | tablet 2.5 mg 2.5 mg, Oral, | | 20 7:44 | | | | | DAILY, First dose on 12/28/19 | | AM PDT | | | | | at 0930, Hold for SBP<100mmHg or | | | | | | | less., | | | | | | + +-------+ +--------+---+---+ +-------+ +--------+---+---+ | Given | 12/30/19 | 2.5 mg | | | | | 20 9:40 | | | | | | AM PDT | | | | +-------+ +--------+---+---+ | Given | 12/29/19 | 2.5 mg | | | | | 20 8:54 | | | | | | AM PDT | | | | +-------+ +--------+---+---+ + +---+ | | | + +---+ | LORazepam (ATIVAN) injection | | | 1-4 mg 1-4 mg, Intravenous, | | | EVERY 1 HOUR PRN, Seizures, | | | Starting Sun12/24/19 at 1641 | | + +---+ | | | + +---+ + +-------+ +--------+---+---+ | magnesium hydroxide (MILK OF | Given | 12/26/19 | 30 mLs | | | | MAGNESIA) 400 mg/5 mL suspension | | 20 8:05 | | | | | 30 mL 30 mL, Oral, NIGHTLY, | | PM PDT | | | | | First dose on Sun12/24/19 at | | | | | | | 2100, If docusate, senna, and | | | | | | | polyethylene glycol ineffective x | | | | | | | 24 hours or not ordered, | | | | | | + +-------+ +--------+---+---+ +-------+ +--------+---+---+ | Given | 12/25/19 | 30 mLs | | | | | 20 8:57 | | | | | | PM PDT | | | | +-------+ +--------+---+---+ +---+---+ | | | +---+---+ + +-------+ +------+---+---+ | melatonin tablet 6 mg 6 mg, | Given | 12/28/19 | 6 mg | | | | Oral, NIGHTLY Gabby MCCRACKEN, | | 20 9:20 | | | | | Starting 12/26/19 at 2331 | | PM PDT | | | | + +-------+ +------+---+---+ +-------+ +------+---+---+ | Given | 12/27/19 | 6 mg | | | | | 20 10:24 | | | | | | PM PDT | | | | +-------+ +------+---+---+ | Given | 12/26/19 | 6 mg | | | | | 20 11:50 | | | | | | PM PDT | | | | +-------+ +------+---+---+ +---+---+ | | | +---+---+ + +-------+ +-------+---+---+ | oxyCODONE (ROXICODONE) tablet | Given | 12/26/19 | 10 mg | | | | 2.5-10 mg 2.5-10 mg, Oral, EVERY | | 20 11:32 | | | | | 3 HOURS PRN, Pain, Starting Wed | | AM PDT | | | | | 12/24/19 at 1309, First dose must | | | | | | | be the lowest dose, can titrate | | | | | | | to effective dose by repeat of | | | | | | | lowest dose every 60 minutes prn | | | | | | | pain, may not exceed maximum dose | | | | | | | ordered per interval. Use [employer]ero | | | | | | | Sedation Scale., | | | | | | + +-------+ +-------+---+---+ +-------+ +------+---+---+ | Given | 12/26/19 | 5 mg | | | | | 20 1:46 | | | | | | AM PDT | | | | +-------+ +------+---+---+ | Given | 12/25/19 | 5 mg | | | | | 20 11:01 | | | | | | PM PDT | | | | +-------+ +------+---+---+ +---+---+ | | | +---+---+ + +-------+ +--------+---+---+ | potassium chloride (KLOR-CON) | Given | 12/30/19 | 20 mEq | | | | ER tablet 20 mEq 20 mEq, Oral, 2 | | 20 8:10 | | | | | TIMES DAILY, First dose on Mon | | PM PDT | | | | | 12/29/19 at 0900, May take with | | | | | | | food to decrease GI upset., | | | | | | + +-------+ +--------+---+---+ +-------+ +--------+---+---+ | Given | 12/30/19 | 20 mEq | | | | | 20 9:40 | | | | | | AM PDT | | | | +-------+ +--------+---+---+ | Given | 12/29/19 | 20 mEq | | | | | 20 8:16 | | | | | | PM PDT | | | | +-------+ +--------+---+---+ + +---+ | | | + +---+ | warfarin (COUMADIN) tablet 2 mg | | | 2 mg, Oral, Daily - Warfarin, | | | First dose (after last | | | modification) on Sun12/31/19 at | | | 1800, Reproductive Risk: Use | | | appropriate handling precautions. | | | Drug education required., | | + +---+ | | | + +---+ documented in this encounter Additional Health Concerns + + + + + | Infection | Onset Date | Last Indicated | Resolved Time | + + + + + | Rule out COVID-19 | 12/16/2019 | 12/16/2019 | 12/16/2019 10:01 PM | | | | | PDT | + + + + + | Rule out COVID-19 | 12/16/2019 | 12/16/2019 | 12/17/2019 12:22 AM | | | | | PDT | + + + + + documented as of this encounter
--- OUTSIDE RECORDS SUMMARY | ~2020-01-05 | XMS | Encounter Summary ---
Demographics + + + | Address | [address] | | | [place] [address] | + + + | Home Phone | | + + + | Preferred Language | Unknown | + + + | Marital Status | | + + + | Presybeterian Affiliation | Unknown | + + + | Race | Unknown | + + + | Ethnic Group | Not or | + + + Author + + + | Author | [facility] | | | and Paulinoana | + + + | Organization | [facility] | | | and [...] | | | | | [place] [address] | | + + + + + | Alvaro Newton | ECON | Unknown | | + + + + + Care Team Providers + +------+ + | Care Interior Wirer Name | Role | Phone | + [...] | | Endocarditis | | [place] | | | | | of mitral | | [address] Phone: | | | | | valve | | [phone] | | | | | Severe | | Fax: | | | | | mitral | | [phone] | | | | | regurgitatio | | | | | | | n | | | | | | | Procedures | | | | | | | CA L HRT | | | | | [...] Description | +--------+---------+ + + + | 12/18/ | Surgery | [facility] | Jeet Tejeda, | CV [facility] | | 2020 | | CENTER CV INTRA OP | [address] | | | | | [address] [facility] | [facility], | | | | | [place], [place] | [place] [address] | | | | | [address] | [phone] | | | | | [phone] | | | +--------+---------+ + + + [...] + + + | Blood Pressure | 137/77 | 12/19/2019 12:24 PM | | | | | PDT | | + + + + + | Pulse | 98 | 12/19/2019 12:24 PM | | | | | PDT | | + + + + + | Temperature | 36.3 C (97.3 F) | 12/19/2019 12:24 PM | | | | | PDT | | + + + + + | Respiratory Rate | 20 | 12/19/2019 12:24 PM | | | | | PDT | | + + + + + | Oxygen Saturation | 94% | 12/19/2019 12:24 PM | | | | | PDT | | + + + + + | Inhaled Oxygen | - | - | | | Concentration | | | | + + + + + | Weight | 59.4 kg (130 lb 15.3 | 12/19/2019 3:26 AM | | | | oz) | [...] Reilly Hamm AGE/SEX: 69 y.o. male ROOM: [facility] : 1950 PCP: Sheng Combs MD Date/Time:12/31/2019 [...] 4 nights in the ICU and on e patient was transferred to the cardiac unit, [...] CV LHC; Surgeon: Jeet Tejeda MD; Location: [facility] [facility] CV LAB CARDIAC CATHERIZATION N/A 12/19/2019 Procedure: CV COR ANGIO; Surgeon: Jeet Tejeda MD; Location: [facility] [place] [facility] CV LAB CARDIAC CATHERIZATION Left 12/19/2019 Procedure: CV LV; Surgeon: Jeet Tejeda MD; Location: [facility] [place] [facility] CV LAB MITRAL VALVE REPLACEMENT N/A 12/24/2019 Procedure: MITRAL VALVE REPLACEMENT; Surgeon: Reilly Galvan MD PhD; Location: [facility] [place] [facility] CHRISTI N OR TOOTH EXTRACTION N/A 12/20/2019 Procedure: EXTRACTION TEETH; Surgeon: Job Menjivar DMD; Location: [facility] [facility] MAIN OR Allergies Allergen Reactions Canola Oil [Vegetable Oil] GI Upset Pt states that he gets upset stomach when ingesting canola oil. Soybean Oil GI Upset Pt states he gets upset stomach when he ingests soybean oil. Medications Prior to Admission Medication Sig Dispense Refill aspirin (ASPIRIN ADULT LOW STRENGTH) 81 MG EC tablet Take 1 tablet (81 mg total) by valorie Daily 30 tablet 0 DISCHARGE EXAM Vital [...] to start cardiac rehabilitation in accordance with certified medical biller recommendations. Pt advised not to drive for [...] manage prescriptions until pt has seen seen Diabetic Educator and Primary Care Physician, who will resume [...] Requested: 1 Follow up: Reilly Galvan MD [facility] [address] [place] [facility] [id number] Schedule an appointment as soon as possible for a visit in 2 weeks Post-op Jeet Tejeda MD [address] [place] [facility] [address] Schedule an appointment as soon as possible for a visit in 2 weeks Post-op Maddi Dwyer MD [address], located [facility] [id number] Schedule an appointment as soon as possible for a visit in 2 weeks Post-op Sheng Combs MD [address] [place] [id number] You have an upcoming appointment on at 1:40pm on Sunday, January 06, 2020. Discharge Medications New Medications [...] 2wks. Our office will call you to [facility] timmy a time. Please call [phone] for questions/concerns Follow up with your Diabetic Educator, Dr. Tejeda, in 2 weeks. Please make an appointment. Follow up with your Infectious Disease, Dr. Dwyer, in 2 weeks. Please make an appoint ment. Follow up with your Primary Care Physician in 3-4 weeks. Please make an appointment. General Instructions Follow the instructions in the the [facility] Cardiac Surgery Navigation Guide. This guide is a n excellent resource for concerns you and your family may have as you heal from surgery. Watch the [facility] Heart Surgery video on YouTube: https://www.youtube.com/watch?v=nGqwBuf2BM M The [facility] Cardiothoracic Surgery office will contact you within 72 hours of your hospital discharge. If you do not receive a phone call or have any concerns before then, please call our office Mon-Fri 8:00am-5:00pm at [phone]. Please make sure we have the best [...] mins each). Referred to you by your certified medical biller. Post-op week 10-12: Sternum is approximately 90-100% [...] if you are not a diabetic). Resear ch shows that sugar is a direct reflection [...] Follow the home care instructions in the [facility] Cardiac Surgery Navigation Guide. Please monitor your weight, blood pressure, heart rate and blood glucose daily (diabetics o nly) daily. Notify the [facility] Cardiothoracic Surgery office if: Any weight [...] temporary, other changes are related to your [facility] health maintenance. Ultimately your certified medical biller or [facility] care physician will determine what medications you should continue after you recover f rom surgery. Only take the medications on your Discharge Medication List when you leave the hospital. Review the list with your nurse prior to leaving the hospital and at the pharmacy when p icking up your medications. Cardiothoracic Surgery will manage prescriptions until you have seen your Diabetic Educator a tx Primary Care Physician, in which they will [...] removed at your follow up visit with [facility] Cardiothoracic Surge ry - no later [...] to the breast bone. Cardiac Rehabilitation: Your Diabetic Educator will refer you to Outpatient Cardiac Rehabilitation. [...] and about 1 hour per visit. Your certified medical biller will provide you with a r eferral to cardiac rehab when he/she feels that you are physically ready. After Coronary Artery Bypass Surgery Your doctor performed coronary artery bypass graft surgery (also called CABG, pronounced cabbage ). This surgery created new pathways around [...] in the same kind of clothes. Grisel abdi weight gain can be a sign of [...] factors as you can. Work with your peoples hospital care provider to identify your risk [...] pharmacist before buying any prescription or ov vt-ghm-oemzhov medication. Managing Pain After Bypass Surgery Taking [...] strain that is spread mainly from pers oj-hi-ycncls through respiratory droplets when an infected person [...] are not available, use an alcohol-based hand grind operator with at least 60 % alcohol covering [...] and need to call 911, notify the drill punch operator that you have or think you [...] COVID-19 symptoms, residents in nursing facilities or detention communities or home health, or those who [...] or preparing your food. ? Use hand grind operator if soap and water are not available. [...] with soap and water or in the internal auditor/washer. ? Call ahead before visiting your doctor. [...] coronavirus and the community public health response, visi t your local public health website. CDC: COVID-19: https://www.cdc.gov/coronavirus/2019-ncov/index.html [place] Coronavirus Advisory: https://www.amenia.org/hoycereb-cog-woqtqsii/coron avirus-advisory Virtual Visits Available https://virtual.amenia.org/ documented in this encounter Medications at Time of Discharge + + + +---------+ + + | Medication | Sig | Dispensed | Refills | Start | End Date | | | | | | Date | | + + + +---------+ + + | acetaminophen | Take 2 tablets by | | 0 | 12/30/19 | | | (TYLENOL) 500 mg | mouth EVERY 6 TO 8 | | | 20 | | | tablet | HOURS NEEDED for | | | | | | | Pain. | | | | | + + + +---------+ + + | ascorbic acid | Take 1 tablet by | 30 | 1 | 12/30/19 | 10/17/202 | | (VITAMIN C) 500 mg | [...] tablet by | 60 | 1 | /18/20 | | | 325 mg tablet | mouth 2 times daily | tablet | | 20 | | | | (with breakfast & | | | | | | | dinner). | | | | | + + + +---------+ + + | lisinopril | Take 1 tablet by | 30 | 1 | /20 | | | (PRINIVIL,ZESTRIL) | mouth Daily. | tablet | | 20 | | | 2.5 MG tablet | | | | | | + + + +---------+ + + | oxyCODONE | Take 1 tablet by | 30 | 0 | /18/20 | | | (ROXICODONE) 5 mg | [...] Left in private vehicle with daughter. Jannette Solis RN Jannette Esparza RN - 12/30/2019 6:27 PM PDTVS stable. Pt staying another night d/t IV ABX not arriving at pt's home. Pt's daughter and at bedside for IV infusion teaching and discharge educati on. All questions answered. AVS reviewed and discharge time set for 1000 tomorrow, pt and destiny luque voiced understanding. Jannette Solis RN SZShPilar monreal RN - 12/30/2019 12:10 PM PDTProv[facility] provide [facility] therapy starting 12/30 after 0900 dose. hospital administrative assistant teach today 12/29 at [facility] at 1400 with and daughter. Delivery of medication and supplies to [facility] by 900 12/30 for 2100 dose at home. Patient will need to re ceive his 0900 dose inpatient 12/30 prior to discharge. [facility] will follow patie nt weekly for picc line dressing changes, labs as ordered as well as providing nursing suppo rt as needed. Thank you. Pilar Gonzalez RN [phone] CM: patient will need to discharge in the am (its an hour drive) to make it to his 1045 cou [address] appt in [place] (per ). Electronically signed by Pilar Gonzalez RN at 2019 12:16 PM Maddi Farah MD - 12/30/2019 8:19 AM PDTFormatting of this note joi ht be different from the original. [facility] Service: Infectious Disease Progress Note Hospital Day: LOS: 15 days Post-Op Day: 7 Days Post-Op SUBJECTIVE Patient Summary: RE: Endocarditis Chart reviewed. From Dr. Tejeda's note: 69 y.o. male transferred from [facility] for [place] mitral valve endocarditis with severe mitral regurgitation [...] naldizziness but no lightheadedness/syncope. [facility] with those complaints.Laborato ry evaluation was [...] and was discharged. He then presented to [facility] 12/15/2019 with altered mental status and fever to 104F.He was found to have multiple laboratory abnormalities includingelevated white blood cell countwith bandemia, anemia with hemoglobin 8.3 (was 1 1.7on 10/31/19), lactic acidosis, blood cultures l1maqmmasj withgram-positive cocci in chains, identified as S. [...] demonstratedNSR with a rate of 97, short CA andPACs .A repeat echo at [facility] showed preserved LV systolic function with a largemobilevegeta tion attached to the posterior leaflet of the mitral valve with severe eccentric anterior MR .There isalso a small ASD with mild oqft-vb-ckiso atrial shunting, as well as mild TR [...] 7.341* 7.382 7.330* PO2ART 160* 153* 230* [id number] 40 33* 43 [id number] 99* 99* 100* Recent Labs Lab 12/30/19 [...] seizure activity High-dose twice daily ceftriaxone for SONOSCOPE OPERATOR coverage as outlined above Case Management consulted [...] Status: Full Code Maddi Dwyer MD 12/31/2019 oshaniqua, LEA Valenzuela - 12/30/2019 8:15 AM PDTFormatting of this note might be different from the [facility]: [facility]acic Surgery Progress Note ROOM: [address] [place] [address] Hospital Day: LOS: 14 days Post-Op Day: [...] Denzel Pryor MD LABS: Recent Labs Lab 12/30/1944912/29/1936 12/28/19 0339 WBC 8.39 7.35 9.94 HGB 9.1* 8.3* 8.7* HCT 29.4* 26.4* 27.8* PLT 308 271 272 MONOPCT 10.40 10.70 8.20 Recent Labs Lab 12/30/1944912/29/19 0536 12/28/19 0339 NA 137 139 138 [...] 7.341* 7.382 7.330* PO2ART 160* 153* 230* [id number] 40 33* 43 [id number] 99* 99* 100* Recent Labs Lab 12/30/19 [...] LEA Cavanaugh 12/30/2019 Sheila Nicholson M A, CCC-CENTER LINE CUTTER OPERATOR - 12/29/2019 2:53 PM PDTMISSED THERAPY VISIT Speech Therapy attempted to see the following patient today: Reilly Hamm Missed Visit (patient unavailable) - working with OT. SHEILA PILLAI MA, CCC-CENTER LINE CUTTER OPERATOR 12/29/2019 hadithyar, Pilar Aaron RN - 12/29/2019 2:34 PM PDTProvidence Infusion received referral for home ARSH. W ill investigate benefits. Thank you. Pilar Gonzalez RN [phone]: [facility] Liaison spoke with patient's , she is agreeable to services. Willing and able to learn. CM attempting to get HH on board, so I will hold on initiating nu rsing portion. After orders received I will coordinate delivery of medication and supplies t o support discharge plan. addi Dwyer MD - 12/29/2019 8:55 AM PDTFormatting of this note might be differe nt from the original. [facility] Service: Infectious Disease Progress Note Hospital Day: LOS: 13 days Post-Op Day: 5 Days Post-Op SUBJECTIVE Patient Summary: RE: Endocarditis Chart reviewed. From Dr. Tejeda's note: 69 y.o. male transferred from [facility] for [place] mitral valve endocarditis with severe mitral regurgitation [...] naldizziness but no lightheadedness/syncope. He initiallypresented to [facility] 10/31[facility]2019 with those complaints.Laborato ry evaluation was [...] and was discharged. He then presented to [facility] 12/15/2019 with altered mental status and fever to 104F.He was found to have multiple laboratory abnormalities includingelevated white blood cell countwith bandemia, anemia with hemoglobin 8.3 (was 1 1.7on 10/31/19), lactic acidosis, blood cultures n3izlhdrfs withgram-positive cocci in chains, identified as S. [...] demonstratedNSR with a rate of 97, short CA andPACs .A repeat echo at [facility] showed preserved LV systolic function with a largemobilevegeta tion attached to the posterior leaflet of the mitral valve with severe eccentric anterior MR .There isalso a small ASD with mild cgsy-ns-rbgwb atrial shunting, as well as mild TR [...] seizure activity High-dose twice daily ceftriaxone for SONOSCOPE OPERATOR coverage as outlined above Case discussed with case management Code Status: Full Code Maddi Dwyer MD 12/29/2019 wais, LEA Valenzuela - 12/29/2019 7:28 AM PDTFormatting of this note might be different from the willie alba [facility]: Cardiothoracic Surgery Progress Note ROOM: [facility]/91- Hospital Day: LOS: 13 days Post-Op Day: [...] 7.341* 7.382 7.330* PO2ART 160* 153* 230* [id number] 40 33* 43 [id number] 99* 99* 100* Recent Labs Lab 12/29/19 [...] 01/02 then to daily till per Dr Echaiz w ID. S/P MVR -- Continue Coumadin for [...] MRI now that pacer wires are removed ([id number]), tolerating diet, no N/V, denies pain, afebrile, [...] Whit Singh, PharmD 5:27 PM PDT 12/28/2019 Megan Coelho, RD - 12/28/2019 11:22 AM PDTFormatting of [...] dependent edema Digestive System (Mouth to Rectum): CENTER LINE CUTTER OPERATOR following; BM on 12/26; missing teeth Nerves [...] loss. Recommendations General Diet with consistencies per CENTER LINE CUTTER OPERATOR recommendations Chocolate Magic Cup BID at snack [...] note might be different from [place]. [facility]: Cardiothoracic Surgery Progress Note ROOM: [address] [place] [address] Hospital Day: LOS: 12 days Post-Op Day: 4 Days Post-Op Surgery/Procedure: Mitral valve replacement with a 29 mm Saint JudeEpic bioprosthetic johnny ve Exploration of aortic valve SUBJECTIVE Events Overnight: Documented that back in NSR, but appeats jxn this morning. Rate 60-7 0. Better night no more hallucinations. Still a bit impulsive. Good to transfer to floor tod ay. UOP: 1375/24hs CT Output: out OBJECTIVE Vital [...] Lab 12/28/19 0339 12/27/19 0358 12/26/19 0315 WBC 9.94 12.04* 11.09* HGB 8.7* 7.9* [...] 7.341* 7.382 7.330* PO2ART 160* 153* 230* [id number] 40 33* 43 [id number] 99* 99* 100* Recent Labs Lab 12/24/19 [...] Dr Real figueroa ID. S/P MVR -- D/C pwires today [...] on Coumadin for his mitral valve Off and looks euvolemic Maddi Key MD - 12/28/2019 6:05 AM PDTFormatting of this note might be differe nt from the original. [facility] Service: Infectious Disease Progress Note Hospital Day: LOS: 12 days Post-Op Day: 4 Days Post-Op SUBJECTIVE Patient Summary: RE: Endocarditis Chart reviewed. From Dr. Tejeda's note: 69 y.o. male transferred from [facility] for [place] mitral valve endocarditis with severe mitral regurgitation [...] naldizziness but no lightheadedness/syncope. He initiallypresented to [facility] 10/31/2019 with those complaints.Laborato ry evaluation was [...] and was discharged. He then presented to [facility] 12/15/2019 with altered mental status and fever to 104F.He was found to have multiple laboratory abnormalities includingelevated white blood cell countwith bandemia, anemia with hemoglobin 8.3 (was 1 1.7on 10/31/19), lactic acidosis, blood cultures h9fayfcevm withgram-positive cocci in chains, identified as S. [...] demonstratedNSR with a rate of 97, short CA andPACs .A repeat echo at [facility] showed preserved LV systolic function with a largemobilevegeta tion attached to the posterior leaflet of the mitral valve with severe eccentric anterior MR .There isalso a small ASD with mild tkaw-wa-rbvti atrial shunting, as well as mild TR [...] to the preoperative study, done 12/16/2019 at [facility]. PROBLEM LIST Principal Problem: Status post mitral [...] seizure activity High-dose twice daily ceftriaxone for SONOSCOPE OPERATOR coverage. Code Status: Full Code Maddi Dwyer MD 12/28/2019 utsine Cabrera RN - 12/27/2019 5:27 PM PDTPatient's orientation much improved today. Able to make needs known and is alert and oriented. Occasionally he is impulsive and requires frequent re direction and education on sternal precautions. Parker, LEA Daniel - 12/27/2019 3:10 PM PDTDec[facility] Pt. Name/Age/: Reilly Hamm 69 y.o. 1950 Med. Record Number: [id number] Subjective General: just finished walking w PT. [...] by: LEA Evans 12/27/2019 3:10 PM PDT [facility] Diana Canales PA - 12/27/2019 8:04 AM PDT [facility]: Cardiothoracic Surgery Progress Note ROOM: [id number] Hospital Day: LOS: 11 days Post-Op Day: [...] Denzel Pryor MD LABS: Recent Labs Lab 12/27/1935712/26/195 12/25/19 0418 WBC 12.04* 11.09* 13.20* HGB 7.9* 8.6* 8.5* HCT 25.3* 27.3* 26.3* PLT 211 159 145* MONOPCT 9.10 6.90 6.40 Recent Labs Lab 12/27/19 0358 12/26/195 12/25/19 1231 12/25/19 0418 NA 137 137 [...] the last 168 hours. Recent Labs Lab 12/27/1935712/26/1931412/25/19 0418 MG 2.2 2.3 2.6* No results for input(s): AMYLASE in the last 168 hours. Recent Labs Lab 12/24/19 1756 12/24/19 1522 12/24/19 1331 PHART 7.341* 7.382 7.330* PO2ART 160* 153* 230* CIS7GED 40 33* 43 [id number] 99* 99* 100* Recent Labs Lab 12/24/19 [...] Farah MD - 12/27/2019 6:10 AM PDT [facility] Service: Infectious Disease Progress Note Hospital Day: LOS: 11 days Post-Op Day: 3 Days Post-Op SUBJECTIVE Patient Summary: RE: Endocarditis Chart reviewed. From Dr. Tejeda's note: 69 y.o. male transferred from [facility] for [place] mitral valve endocarditis with severe mitral regurgitation [...] naldizziness but no lightheadedness/syncope. He initiallypresented to [facility] 10/31/2019 with those complaints.Laborato ry evaluation was [...] and was discharged. He then presented to [facility] 12/15/2019 with altered mental status and fever to 104F.He was found to have multiple laboratory abnormalities includingelevated white blood cell countwith bandemia, anemia with hemoglobin 8.3 (was 1 1.7on 10/31/19), lactic acidosis, blood cultures w7hczkmifg withgram-positive cocci in chains, identified as S. [...] demonstratedNSR with a rate of 97, short CA andPACs .A repeat echo at [facility] showed preserved LV systolic function with a largemobilevegeta tion attached to the posterior leaflet of the mitral valve with severe eccentric anterior MR .There isalso a small ASD with mild xxns-ad-mnepl atrial shunting, as well as mild TR [...] Premature atrial complexes are no longer Present CA interval has increased Vent. rate has decreased BY 56 BPM T wave inversion now evident in Anterolateral leads Confirmed by EARNESTINE GARZA MD ([id number]) on 12/26/2019 3:17:52 PM POC Glucose Collection [...] to the preoperative study, done 12/16/2019 at [facility]. PROBLEM LIST Principal Problem: Status post mitral [...] seizure activity High-dose twice daily ceftriaxone for SONOSCOPE OPERATOR coverage. 8. Pulmonary edema: Resolved; O2 sats stable in room air Code Status: Full Code Maddi Dwyer MD 12/27/2019 Karina Marcus MD - 12/27/2019 3:27 AM PDTFormatting of this note might be different f rom the original. [facility]: Risk Control Product Liability Director Progress Note Reilly Hamm 69 y.o. Hospital Day: LOS: 11 days Post-Op Day: 1 Day Post-Op Consulting Physicians Treatment Team: Jeet Tejeda MD; Jef Ryan MD; Maddi Dwyer MD SUBJECTIVE Patient Summary: The patient is a 69 y.o. male with significant past medical history of diabetes mellitus who presented to [facility] 12/14 due to a 4 month history of we akness and 1 month history of fevers. Echocardiogram was perfromed which revealed mitral johnny ve endocarditis with mitral valve regurgitation. He was started on zosyn and cefipime. Blood cultures obtained on admission grew out GPC in chains in 2/2 bottles. He was transferred to [facility] for further management on 12/16 and admitted [...] maintained on 2g ceftriaxo ne Q12 for SONOSCOPE OPERATOR coverage. His carious teeth were removed by [...] Titrate O2 to keep sats >92% GI/NUTRITION: CENTER LINE CUTTER OPERATOR cleared for pureed diet with 1 DMA [...] Abx per ID. on ceftriaxone 2gm for SONOSCOPE OPERATOR coverage BID until 01/03/20 then change to [...] L sided weakness PT Visit Summary Having CENTER LINE CUTTER OPERATOR consult Alexi Lerner MD - 12/26/2019 9:16 AM PDTFormatting of this note might be different fro m the original. [facility]: Infectious Diseases Progress Note Hospital Day: [...] Awake, cranial nerves intact. Follows commands. Location: [facility]. LABS: All labs were reviewed. Recent Results [...] Units Date/Time Culture, Tissue, Smear, with Anaerobes [[id number]] Collected: 12/24/19 1020 Order Status: Completed Lab Status: Preliminary result Updated: 12/25/19 1351 Specimen: Tissue from Heart, Valve, Mitral Gram Stain Result NO CELLS OR ORGANISMS SEEN RESULT NO GROWTH AT THIS TIME RESULT Testing performed at [facility], [address] [place] [id number] Comment: Testing performed at [address] [address] Coronavirus (COVID-19) NAAT [[id number]] Collected: 12/24/19 0646 Order Status: Completed Lab Status: Final result Updated: 12/24/19 0749 Specimen: Tissue from Nasopharynx SARS-CoV-2, NAAT (COVID-19) NEGATIVE Comment: This test was developed and its performance characteristics determined by [employer]. It has not been cleared or approved by the [place] FDA. This test has been authorized by FDA under an Emergency Use Authorization (EUA). Clinicians should be advised to consider a patients signs, symptoms, history, and results of other diagnostic tests when interpreting results. Testing performed at [facility];[address] [place] [address] 54096 Coronavirus (COVID-19) NAAT [[id number]] Collected: 12/16/19 2314 Order Status: Completed Lab Status: Final result Updated: 12/17/19 0022 SARS-CoV-2, NAAT (COVID-19) NEGATIVE Comment: This test was developed and its performance characteristics determined by [employer]. It has not been cleared or approved by the [place] FDA. This test has been authorized by FDA under an Emergency Use Authorization (EUA). Clinicians should be advised to consider a patients signs, symptoms, history, and results of other diagnostic tests when interpreting results. Testing performed at [facility];[address] [place] [address] 72595 Coronavirus (COVID-19) NAAT [[id number]] Collected: 12/16/192135 Order Status: Canceled Lab Status: No result Specimen: Tissue from Nasopharynx Culture, Blood [[id number]] Collected: 12/16/19 1925 Order Status: Completed Lab Status: Final result Updated: 12/23/19 0707 Specimen: Peripheral Blood Special Requests RIGHT HAND Special Requests Testing performed at [facility];[address] [place] [address] 37998 RESULT NO GROWTH 6 DAYS RESULT Testing performed at [facility], [address] [place] [address] 85878 Comment: Testing performed at [facility], [address] [place] [address] 05395 Culture, Blood [[id number]] Collected: 12/16/19 1925 Order Status: Completed Lab Status: Final result Updated: 12/23/19 0707 Specimen: Peripheral Blood Special Requests LEFT HAND Special Requests Testing performed at [facility];[address] [place] [address] 76933 RESULT NO GROWTH 6 DAYS RESULT Testing performed at [facility], [address] [place] [address] 58435 Comment: Testing performed at [facility], [address] [place] [address] 22114 Microbiology Results (72 hrs) Procedure Component Value Units Date/Time Culture, Tissue, Smear, with Anaerobes [[id number]] Collected: 12/24/19 1020 Order Status: Completed Lab Status: Preliminary result Updated: 12/25/19 1351 Specimen: Tissue from Heart, Valve, Mitral Gram Stain Result NO CELLS OR ORGANISMS SEEN RESULT NO GROWTH AT THIS TIME RESULT Testing performed at [facility], [address] [place] [address] 02670 Comment: Testing performed at [facility], [address] [place] [address] 06843 Coronavirus (COVID-19) NAAT [[id number]] Collected: 12/24/19 0646 Order Status: Completed Lab Status: Final result Updated: 12/24/19 0749 Specimen: Tissue from Nasopharynx SARS-CoV-2, NAAT (COVID-19) NEGATIVE Comment: This test was developed and its performance characteristics determined by [employer]. It has not been cleared or approved by the [place] FDA. This test has been authorized by FDA under an Emergency Use Authorization (EUA). Clinicians should be advised to consider a patients signs, symptoms, history, and results of other diagnostic tests when interpreting results. Testing performed at [facility];[address] [place] [address] 62709 IMAGING: CXR images were reviewed. Images dated [...] of microhemorrhage. 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 8. Pulmonary edema: Responded well to lasix. Off oxygen. Breathing better. 9. New problem: Seizure. No additional seizure activity. CT unchanged. MRI has been requested. Clinically stable from ID standpoint. Continue current antibiotic regimen. Repeat CBC and CMP in the am. Discussed with attending provider: Reilly Galvan MD PhD . Dr. Dweyr will take over ID service tomorrow. Alexi Noble MD, MPH Infectious Diseases 12/26/19 ehr, Chevy Aaron MD - 12/26/2019 7:58 AM PDTFormatting of this note might be different from the [facility]: [facility] Progress Note Date of Admission: 12/16/2019 BRIEF CLINICAL HISTORY: 69 y.o. 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 He had no significant medical history prior to his [facility] admissions. He reports approximately 4 months of weakness/fatigue, intermittent fevers , and weight loss of 35-40 pounds. Denies chest pain/pressure. He reported dyspnea on exer tion with occasional cough, no orthopnea, PND or lower extremity edema. He noted occasional dizziness but no lightheadedness/syncope. He initially presented to [facility] 10/31/2019 with those complaints. Laboratory evaluation was [...] wa s discharged. He then presented to [facility] 12/15/2019 with altered mental stat us and fever to 104F. He was found to have multiple laboratory abnormalities including elev ated white blood cell count with bandemia, anemia with hemoglobin 8.3 (was 11.7 on 10/31/19), lactic acidosis, blood cultures x2 positive with gram-positive cocci in chains, identified as S. mitis. Chest x-ray was normal with the exception of mild cardiomegaly. CT scan of [facility] abdomen pelvis demonstrated low-density lesion in the [...] NSR with a rate of 97, short CA and PACs. A repeat echo at [facility] showed preserved LV systolic function with a large mobile vegetation attached to the posterior siria flet of the mitral valve with severe eccentric anterior MR. There is also a small ASD with mild nxau-vv-szxlk atrial shunting, as well as mild TR [...] CV LHC; Surgeon: Jeet Tejeda MD; Location: [facility] CV LAB CARDIAC CATHERIZATION N/A 12/19/2019 Procedure: CV COR ANGIO; Surgeon: Jeet Tejeda MD; Location: [facility] CV LAB CARDIAC CATHERIZATION Left 12/19/2019 Procedure: CV LV; Surgeon: Jeet Tejeda MD; Location: [facility] CV LAB MITRAL VALVE REPLACEMENT N/A 12/24/2019 Procedure: MITRAL VALVE REPLACEMENT; Surgeon: Reilly Galvan MD PhD; Location: [facility] CHRISTI N OR TOOTH EXTRACTION N/A 12/20/2019 Procedure: EXTRACTION TEETH; Surgeon: Job Menjivar DMD; Location: [facility] MAIN OR Allergies Allergen Reactions Canola Oil [...] BMI 24.80 kg/m TELEMETRY: Sinus bradycardia I/O: 2083 / 8, CT 150 GENERAL: Ill-appearing 69 yo M [...] this interval not displayed. Recent Labs Lab 12/26/1931412/25/198 12/24/19 1328 12/24/19 1214 12/24/19 1140 12/24/19 [...] 2. 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 (10/31/19 - [facility]): EF 55-60%. Impaired relaxation compatible with diastolic [...] valve replaced ASSESSMENT & PLAN 1. 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 [...] brain emboli prior to surgery. Now on Ke ra. MRI indicated. 11. Marked leukocytosis immediately following surgery, decreased quite a bit today 12. Marked EKG changes, uncertain significance in absence of CAD or obvious CVA. Will rec heck limited echo. I will be out of town for the next week, starting this afternoon, Geoffrey Garza MD covering Code Status: Full Code eone, Reilly Umaña MD PhD - 12/26/2019 7:53 AM PDT [facility]: Cardiothoracic Surgery Progress Note ROOM: [address] [place] [address] Hospital Day: LOS: 10 days Post-Op Day: [...] 7.341* 7.382 7.330* PO2ART 160* 153* 230* QVO1SVC 40 33* 43 R4ALPACB 99* 99* 100* Recent Labs Lab 12/24/19 [...] Code Reilly Galvan MD PhD FACS 12/26/2019 oArsalan ruby, YACHT MASTER - 12/26/2019 7:50 AM PDTFormatting of this note might be different from the [facility] Service: Risk Control Product Liability Director Progress Note Reilly Hamm 69 y.o. Hospital Day: LOS: 10 days Post-Op Day: 1 Day Post-Op Consulting Physicians Treatment Team: Alexi Rodarte MD; Jeet Tejeda MD; Jef Ryan MD SUBJECTIVE Patient Summary: The patient is a 69 y.o. male with significant past medical history of diabetes mellitus who presented to [facility] 12/14 due to a 4 month history of we akness and 1 month history of fevers. Echocardiogram was perfromed which revealed mitral johnny ve endocarditis with mitral valve regurgitation. He was started on zosyn and cefipime. Blood cultures obtained on admission grew out GPC in chains in 2/2 bottles. He was transferred to [facility] for further management on 12/16 and admitted [...] maintained on 2g ceftriaxo ne Q12 for SONOSCOPE OPERATOR coverage. His carious teeth were removed by [...] Now improv ed to junctional rhythm in 's. Was pacer dependent. Likely due to debridement of posterior MV annulous- ? Off vasopressors ? Cardiology following - need for PPM placement to be determined. Coronary angiogram done 12/18- no significant CAD. Cont telemetry monitoring PULM: Apnea episodes - likely secondary to neurologic status. Extubated to [place]- Resolved Monitor for airway compromise Titrate O2 to keep sats >92% GI/NUTRITION: NPO until CENTER LINE CUTTER OPERATOR swallow evaluation completed RENAL/LYTES: DUNIA - Likely [...] ID. Has been on ceftriaxone 2gm for SONOSCOPE OPERATOR coverage. Source of Infection: endocarditis and bacteremia [...] note might be different from the [facility]: Risk Control Product Liability Director Progress Note Reilly Hamm 69 y.o. Hospital Day: LOS: 9 days Post-Op Day: 1 Day Post-Op Consulting Physicians Treatment Team: Alexi Rodarte MD; Jeet Tejeda MD; Jef Ryan MD SUBJECTIVE Patient Summary: The patient is a 69 y.o. male with significant past medical history of diabetes mellitus who presented to [facility] 12/14 due to a 4 month history of we akness and 1 month history of fevers. Echocardiogram was perfromed which revealed mitral johnny ve endocarditis with mitral valve regurgitation. He was started on zosyn and cefipime. Blood cultures obtained on admission grew out GPC in chains in 2/2 bottles. He was transferred to [facility] for further management on 12/16 and admitted [...] maintained on 2g ceftriaxo ne Q12 for SONOSCOPE OPERATOR coverage. His carious teeth were removed by [...] resolution of seizure activity. Lo aded with Kederrick, repeat head CT largely unchanged. Events Overnight: [...] asymmetry, mo ving extremities with RUE 4/5 temporary office assistant strength LUE 3/5 temporary office assistant strength HEENT: sclerae clear, nonicteric, oral mmm, [...] ID. Has been on ceftriaxone 2gm for SONOSCOPE OPERATOR coverage. Source of Infection: endocarditis and bacteremia [...] se, MD - 12/25/2019 10:40 AM PDT [facility]: Infectious Diseases Progress Note Hospital Day: [...] intact. Follows commands. Venous access: CVC. Location: [facility]. LABS: All labs were reviewed. Recent Results [...] Units Date/Time Culture, Tissue, Smear, with Anaerobes [[id number]] Collected: 12/24/19 1020 Order Status: Completed Lab Status: Preliminary result Updated: 12/24/192107 Specimen: Tissue from Heart, Valve, Mitral Gram Stain Result NO CELLS OR ORGANISMS SEEN Gram Stain Result Testing performed at [facility], [address] [place] [address] 42589 RESULT PENDING Comment: Testing performed at [facility], [address] [place] [address] 61186 Coronavirus (COVID-19) NAAT [[id number]] Collected: 12/24/19 0646 Order Status: Completed Lab Status: Final result Updated: 12/24/19 0749 Specimen: Tissue from Nasopharynx SARS-CoV-2, NAAT (COVID-19) NEGATIVE Comment: This test was developed and its performance characteristics determined by [employer]. It has not been cleared or approved by the [place] FDA. This test has been authorized by FDA under an Emergency Use Authorization (EUA). Clinicians should be advised to consider a patients signs, symptoms, history, and results of other diagnostic tests when interpreting results. Testing performed at [facility];[address] [place] [address];[place] [address] Coronavirus (COVID-19) NAAT [[id number]] Collected: 12/16/19 2314 Order Status: Completed Lab Status: Final result Updated: 12/17/19 0022 SARS-CoV-2, NAAT (COVID-19) NEGATIVE Comment: This test was developed and its performance characteristics determined by [employer]. It has not been cleared or approved by the [place] FDA. This test has been authorized by FDA under an Emergency Use Authorization (EUA). Clinicians should be advised to consider a patients signs, symptoms, history, and results of other diagnostic tests when interpreting results. Testing performed at [facility];[address] [place] [address] 58005 Coronavirus (COVID-19) NAAT [[id number]] Collected: 12/16/192135 Order Status: Canceled Lab Status: No result Specimen: Tissue from Nasopharynx Culture, Blood [[id number]] Collected: 12/16/191924 Order Status: Completed Lab Status: Final result Updated: 12/23/19706 Specimen: Peripheral Blood Special Requests RIGHT HAND Special Requests Testing performed at [facility];[address] [place] [address] 43370 RESULT NO GROWTH 6 DAYS RESULT Testing performed at [facility], [address] [place] [address] 46526 Comment: Testing performed at [facility], [address] [place] [address] 82750 Culture, Blood [[id number]] Collected: 12/16/191924 Order Status: Completed Lab Status: Final result Updated: 12/23/19706 Specimen: Peripheral Blood Special Requests LEFT HAND Special Requests Testing performed at [facility];[address] [place] [address] 99530 RESULT NO GROWTH 6 DAYS RESULT Testing performed at [facility], [address] [place] [address] 18885 Comment: Testing performed at [facility], [address] [place] [address] 15517 Microbiology Results (72 hrs) Procedure Component Value Units Date/Time Culture, Tissue, Smear, with Anaerobes [[id number]] Collected: 12/24/19 1020 Order Status: Completed Lab Status: Preliminary result Updated: 12/24/192107 Specimen: Tissue from Heart, Valve, Mitral Gram Stain Result NO CELLS OR ORGANISMS SEEN Gram Stain Result Testing performed at [facility], [address] [place] [address] 64613 RESULT PENDING Comment: Testing performed at [facility], [address] [facility], [place] [address] Coronavirus (COVID-19) NAAT [[id number]] Collected: 12/24/19 0646 Order Status: Completed Lab Status: Final result Updated: 12/24/19 0749 Specimen: Tissue from Nasopharynx SARS-CoV-2, NAAT (COVID-19) NEGATIVE Comment: This test was developed and its performance characteristics determined by [employer]. It has not been cleared or approved by the [place] FDA. This test has been authorized by FDA under an Emergency Use Authorization (EUA). Clinicians should be advised to consider a patients signs, symptoms, history, and results of other diagnostic tests when interpreting results. Testing performed at [facility];[address] [place] [address];[place] [address] IMAGING: CXR images were reviewed. Images dated [...] of microhemorrhage. 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 Timing of cardiothoracic surgery to be determined by CTS specialist in view of stroke. 8. Pulmonary edema: Responded well to lasix. Off oxygen. Breathing better. 9. New problem: Seizure. Recommend brain imaging. Continue current antibiotic regimen. Repeat CBC and CMP in the am. Discussed with attending provider: Reilly Galvan MD PhD . Alexi Nobel MD, MPH Infectious Diseases 12/25/19 amont, Sheree Espana MS CCC-CENTER LINE CUTTER OPERATOR - 12/25/2019 8:00 AM PDTMISSED THERAPY VISIT Speech Therapy attempted to see the following patient today: Reilly Hamm (P) Missed Visit (status changed), Need New Orders Due to transfer to ICU, new orders are needed if speech therapy services are still warrante d at this time. A M Shanika, Jeet Aaron MD - 12/25/2019 7:37 AM PDT [facility]: Cardiology Progress Note Date of Admission: 12/16/2019 BRIEF CLINICAL HISTORY: 69 y.o. male transferred from [facility] for unalakleet dari ral valve endocarditis with severe mitral [...] but no lightheadedness/syncope. He initially presented to [facility] 10/31/2019 with those complaints. Laboratory evaluation was [...] wa s discharged. He then presented to [facility] 12/15/2019 with altered mental stat us and [...] NSR with a rate of 97, short CA and PACs. A repeat echo at [facility] showed preserved LV systolic function with a large mobile vegetation attached to the posterior siria flet of the mitral valve with severe eccentric anterior MR. There is also a small ASD with mild byuo-kv-dlehi atrial shunting, as well as mild TR [...] CV LHC; Surgeon: Jeet Tejeda MD; Location: [facility] CV LAB CARDIAC CATHERIZATION N/A 12/19/2019 Procedure: CV COR ANGIO; Surgeon: Jeet Tejeda MD; Location: [facility] CV LAB CARDIAC CATHERIZATION Left 12/19/2019 Procedure: CV LV; Surgeon: Jeet Tejeda MD; Location: [facility] CV LAB TOOTH EXTRACTION N/A 12/20/2019 Procedure: EXTRACTION TEETH; Surgeon: Job Menjivar DMD; Location: [facility] MAIN OR Allergies Allergen Reactions Canola Oil [...] PSYCHIATRIC: Cannot assess DATA Recent Labs Lab 12/25/19 0418 12/24/19 2355 12/24/19 1959 12/24/19 1557 12/24/19 [...] this interval not displayed. Recent Labs Lab 12/25/19 0418 12/24/19 1328 12/24/19 1214 12/24/19 1140 [...] BLOOD C&S: + for Clayton hernandes BRAIN CT (12/25/19): Small subacute infarct within [...] 2. 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 (10/31/19 - [facility]): EF 55-60%. Impaired relaxation compatible with diastolic [...] valve replaced ASSESSMENT & PLAN 1. 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 [...] MD PhD - 12/25/2019 7:25 AM PDT [facility]: Cardiothoracic Surgery Progress Note ROOM: [id number] Hospital Day: LOS: 9 days Post-Op Day: [...] Denzel Pryor MD LABS: Recent Labs Lab 12/25/1941712/24/19132712/24/19 1214 12/24/19 0451 12/23/19 0614 WBC 13.20* [...] 7.341* 7.382 7.330* PO2ART 160* 153* 230* CBX4GCP 40 33* 43 [id number] 99* 99* 100* Recent Labs Lab 12/24/19 [...] endocarditis with ext ensive destruction of the unalakleet mitral valve involving the annulus as well. [...] Marcie Bennett RN at 12/24/2019 6:30 PM Sebas Rodarte, Alexi boyle MD - 12/24/2019 5:56 PM PDTFormatting of this note might be different from the origin Located within [facility] Service: Infectious Diseases Progress Note Hospital Day: [...] BANK. BLOOD BANK COMMENT Testing performed at [address] [address] POC Glucose Result Value Ref Range Glucose, POC 119 (H) 65 - 99 mg/dL POC ISTAT, CG8, Arterial Result Value Ref Range pH, Arterial, POC 7.441 7.350 - 7.450 pCO2, Arterial 35 35 - 45 mmHg pO2, Arterial 220 () 80 - 105 mmHg HCO3, Arterial 24 [...] Units Date/Time Culture, Tissue, Smear, with Anaerobes [[id number]] Collected: 12/24/19 1020 Order Status: Sent Lab Status: In process Updated: 12/24/19 1058 Specimen: Tissue from Heart, Valve, Mitral Coronavirus (COVID-19) NAAT [[id number]] Collected: 12/24/19 0646 Order Status: Completed Lab Status: Final result Updated: 12/24/19 0749 Specimen: Tissue from Nasopharynx SARS-CoV-2, NAAT (COVID-19) NEGATIVE Comment: This test was developed and its performance characteristics determined by [employer]. It has not been cleared or approved by the [place] FDA. This test has been authorized by FDA under an Emergency Use Authorization (EUA). Clinicians should be advised to consider a patients signs, symptoms, history, and results of other diagnostic tests when interpreting results. Testing performed at [address] [place] [address] Coronavirus (COVID-19) NAAT [[id number]] Collected: 12/16/19 2314 Order Status: Completed Lab Status: Final result Updated: 12/17/19 0022 SARS-CoV-2, NAAT (COVID-19) NEGATIVE Comment: This test was developed and its performance characteristics determined by [employer]. It has not been cleared or approved by the [place] FDA. This test has been authorized by FDA under an Emergency Use Authorization (EUA). Clinicians should be advised to consider a patients signs, symptoms, history, and results of other diagnostic tests when interpreting results. Testing performed at [facility];[address] [place] [address]694 Coronavirus (COVID-19) NAAT [[id number]] Collected: 12/16/192135 Order Status: Canceled Lab Status: No result Specimen: Tissue from Nasopharynx Culture, Blood [[id number]] Collected: 12/16/191924 Order Status: Completed Lab Status: Final result Updated: 12/23/19706 Specimen: Peripheral Blood Special Requests RIGHT HAND Special Requests Testing performed at [facility];[address] [place] [address] 41085 RESULT NO GROWTH 6 DAYS RESULT Testing performed at [facility], [address] [place] [address] 02118 Comment: Testing performed at [facility], [address] [place] [address] 17294 Culture, Blood [[id number]] Collected: 12/16/191924 Order Status: Completed Lab Status: Final result Updated: 12/23/19706 Specimen: Peripheral Blood Special Requests LEFT HAND Special Requests Testing performed at [facility];[address] [place] [address] 72908 RESULT NO GROWTH 6 DAYS RESULT Testing performed at [facility], [address] [place] [address] 48581 Comment: Testing performed at [facility], [address] [place] [address] 73380 Microbiology Results (72 hrs) Procedure Component Value Units Date/Time Culture, Tissue, Smear, with Anaerobes [[id number]] Collected: 12/24/19 1020 Order Status: Sent Lab Status: In process Updated: 12/24/19 1058 Specimen: Tissue from Heart, Valve, Mitral Coronavirus (COVID-19) NAAT [[id number]] Collected: 12/24/19 0646 Order Status: Completed Lab Status: Final result Updated: 12/24/19 0749 Specimen: Tissue from Nasopharynx SARS-CoV-2, NAAT (COVID-19) NEGATIVE Comment: This test was developed and its performance characteristics determined by [employer]. It has not been cleared or approved by the [place] FDA. This test has been authorized by FDA under an Emergency Use Authorization (EUA). Clinicians should be advised to consider a patients signs, symptoms, history, and results of other diagnostic tests when interpreting results. Testing performed at [facility];[address] [place] [address];[place] [address] IMAGING: No new images for review today. [...] of microhemorrhage. 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 8. Pulmonary edema: Improved. Patient updated [...] this note might be different from the [place] [facility] Progress Note Date of Admission: 12/16/2019 BRIEF CLINICAL HISTORY: 69 y.o. male transferred from [facility] for unalakleet dari ral valve endocarditis with severe mitral [...] but no lightheadedness/syncope. He initially presented to [facility] 10/31/2019 with those complaints. Laboratory evaluation was [...] wa s discharged. He then presented to [facility] 12/15/2019 with altered mental stat us and [...] NSR with a rate of 97, short CA and PACs. A repeat echo at [facility] showed preserved LV systolic function with a large mobile vegetation attached to the posterior siria flet of the mitral valve with severe eccentric anterior MR. There is also a small ASD with mild ghil-rw-mckex atrial shunting, as well as mild TR [...] CV LHC; Surgeon: Jeet Tejeda MD; Location: [facility] CV LAB CARDIAC CATHERIZATION N/A 12/19/2019 Procedure: CV COR ANGIO; Surgeon: Jeet Tejeda MD; Location: [facility] CV LAB CARDIAC CATHERIZATION Left 12/19/2019 Procedure: CV LV; Surgeon: Jeet Tejeda MD; Location: [facility] CV LAB TOOTH EXTRACTION N/A 12/20/2019 Procedure: EXTRACTION TEETH; Surgeon: Job Menjivar DMD; Location: [facility] MAIN OR Allergies Allergen Reactions Canola Oil [...] 2. 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 (10/31/19 - [facility]): EF 55-60%. Impaired relaxation compatible with diastolic [...] kidney injury) ASSESSMENT & PLAN 1. 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 [...] Status: Full Code Sheree Rowan M S CCC-CENTER LINE CUTTER OPERATOR - 12/24/2019 7:52 AM PDTMISSED THERAPY VISIT Speech Therapy attempted to see the following patient today: Reilly Hamm (P) Missed Visit (patient unavailable)- receiving procedure at this time. ST to check back at another time census permitting. ass, Chaplain Bere - 12/24/2019 6:54 AM PDTF/u continue CP [...] te might be different from the original. [facility]: Cardiology Progress Note Date of Admission: 12/16/2019 BRIEF CLINICAL HISTORY: 69 y.o. male transferred from [facility] for unalakleet dari ral valve endocarditis with severe mitral [...] but no lightheadedness/syncope. He initially presented to [facility] 10/31/2019 with those complaints. Laboratory evaluation was [...] wa s discharged. He then presented to [facility] 12/15/2019 with altered mental stat us and [...] NSR with a rate of 97, short CA and PACs. A repeat echo at [facility] showed preserved LV systolic function with a large mobile vegetation attached to the posterior siria flet of the mitral valve with severe eccentric anterior MR. There is also a small ASD with mild ioov-sf-mfndr atrial shunting, as well as mild TR [...] CV LHC; Surgeon: Jeet Tejeda MD; Location: [facility] CV LAB CARDIAC CATHERIZATION N/A 12/19/2019 Procedure: CV COR ANGIO; Surgeon: Jeet Tejeda MD; Location: [facility] CV LAB CARDIAC CATHERIZATION Left 12/19/2019 Procedure: CV LV; Surgeon: Jeet Tejeda MD; Location: [facility] CV LAB TOOTH EXTRACTION N/A 12/20/2019 Procedure: EXTRACTION TEETH; Surgeon: Job Menjivar DMD; Location: [facility] MAIN OR Allergies Allergen Reactions Canola Oil [...] AM, no further PSVT s donta Sunday AM GENERAL: Ill-appearing 69 yo M [...] -- -- 1.0 BLOOD C&S: + for Step mitis BRAIN MRI (12/18/19): 1. An 8 x 8 x 11 mm ring enhancing lesion, image 68 series 11, in the right parieto-occipit al junction near the cortical surface. This may represent a septic embolus or simple the enh ancement of a subacute infarct. 2. 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 (10/31/19 - [facility]): EF 55-60%. Impaired relaxation compatible with diastolic [...] kidney injury) ASSESSMENT & PLAN 1. 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 [...] 10/31/19 admission. Code Status: Full Code Oswaldo Bowman C radha - 12/23/2019 3:26 PM PDTSPIRITUAL CARE ASSESSMENT [...] support of (53 yrs) and family. Marginal mkii factor that included desire f or pre-op [...] might be different fro m the original. [facility]: Infectious Diseases Progress Note Hospital Day: [...] O POSITIVE Antibody Screen NEGATIVE BB BAND [id number] BB BAND Testing performed at [facility];[address] [place] [address];[place] [address] Microbiology Results (Last 14 Days by Collected Date with Culture/Sensitivity) Procedure Component Value Units Date/Time Coronavirus (COVID-19) NAAT [[id number]] Collected: 12/16/19 4814 Order Status: Completed Lab Status: Final result Updated: 12/17/19 0022 SARS-CoV-2, NAAT (COVID-19) NEGATIVE Comment: This test was developed and its performance characteristics determined by [employer]. It has not been cleared or approved by the US FDA. This test has been authorized by FDA under an Emergency Use Authorization (EUA). Clinicians should be advised to consider a patients signs, symptoms, history, and results of other diagnostic tests when interpreting results. Testing performed at [facility];[address] [place] [address] Coronavirus (COVID-19) NAAT [[id number]] Collected: 12/16/192135 Order Status: Canceled Lab Status: No result Specimen: Tissue from Nasopharynx Culture, Blood [[id number]] Collected: 12/16/191924 Order Status: Completed Lab Status: Final result Updated: 12/23/1907 Specimen: Peripheral Blood Special Requests RIGHT HAND Special Requests Testing performed at [facility];[address] [place] [address] RESULT NO GROWTH 6 DAYS RESULT Testing performed at [facility], [address] [place] [address] Comment: Testing performed at [facility], [address] [place] [address] Culture, Blood [[id number]] Collected: 12/16/191924 Order Status: Completed Lab Status: Final result Updated: 12/23/19 0707 Specimen: Peripheral Blood Special Requests LEFT HAND Special Requests Testing performed at [facility];[address] [place] [address] 28794 RESULT NO GROWTH 6 DAYS RESULT Testing performed at [facility], [address] [place] [address] Comment: Testing performed at [facility], [address] [place] [address] Microbiology Results (72 hrs) No results found [...] of microhemorrhage. 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 Timing of cardiothoracic surgery to be [...] of this note might be different from obn terrazas. [facility]: Cardiothoracic Surgery Progress Note ROOM: [address] [place] [address] Hospital Day: LOS: 7 days SUBJECTIVE Events [...] Denzel Pryor MD LABS: Recent Labs Lab 12/23/1961312/22/19 0546 12/21/19 0502 12/20/19 0630 WBC 11.67* [...] hours. No results for input(s): PHART, PO2ART, IEC4UHD, W4ZJYGRB, BEART in the last 168 hours. Recent [...] Mr. Hamm is a 69-year-old gentleman with unalakleet mitral valve endocarditis with severe dari ral [...] Full Code Reilly Galvan MD PhD FACS [facility] 12/23/2019 Gareth Villar MD - 12/23/2019 7:58 AM PDTFormatting of this note might be different from the or iginal. [facility]: Hospitalist Progress Note Pt: Reilly Hamm AGE/SEX: 69 y.o. male ROOM: [facility]- : 1950 PCP: No Physician on file ADMIT DATE: 12/16/2019 TODAY'S DATE: 12/23/2019 Hospital Day/Hospital Course: LOS: 7 days Mr. Hamm is a 69-year-old male with no significant past medical history who originally pr esented to [facility] on 12/14 with progressive weakness for the last few months an d intermittent fevers for the last 1 month, found to have GPC bacteremia and mitral valve en docarditis, transferred to [facility] on 12/15 for further evaluation. Further work-up [...] been consulted and patient is now awaiti ng MV surgery later this week. SUBJECTIVE: Patient [...] Component Value Units Date/Time Coronavirus (COVID-19) NAAT [[id number]] Collected: 12/16/19 2314 Order Status: Completed Lab Status: Final result Updated: 12/17/19 0022 SARS-CoV-2, NAAT (COVID-19) NEGATIVE Comment: This test was developed and its performance characteristics determined by [employer]. It has not been cleared or approved by the [place] FDA. This test has been authorized by FDA under an Emergency Use Authorization (EUA). Clinicians should be advised to consider a patients signs, symptoms, history, and results of other diagnostic tests when interpreting results. Testing performed at [facility];[address] [place] [address];[place] [address] Culture, Blood [[id number]] Collected: 12/16/191924 Order Status: Completed Lab Status: Preliminary result Updated: 12/18/19716 Specimen: Peripheral Blood Special Requests RIGHT HAND Special Requests Testing performed at [facility];[address] [place] [address] RESULT NO GROWTH AT THIS TIME RESULT Testing performed at [facility], [address] [place] [address] Comment: Testing performed at [facility], [address] [place] [address] Culture, Blood [[id number]] Collected: 12/16/191924 Order Status: Completed Lab Status: Preliminary result Updated: 12/18/19716 Specimen: Peripheral Blood Special Requests LEFT HAND Special Requests Testing performed at [facility];[address] [place] [address] RESULT NO GROWTH AT THIS TIME RESULT Testing performed at [facility], [address] [place] [address] Comment: Testing performed at [facility], [address] [place] [address] IMAGING: Reviewed in [facility], no new results. PROBLEM LIST Principal Problem: [...] for surgery with bioprosthetic valve replacement tomas bailey -cardiology, Dr. Tejeda consulted -ID, Dr. Noble [...] 2. 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 Dictation software, [employer], used which may contain error for similar sounding words even af ter review. Portions of this chart may have been copied from previous notes for continuity of care. Aki Youssef MD 7:58 AM PDT 12/23/2019 Portions of this chart may have been copied from previous notes for continuity of care purp ose dAlisia Curry RN - 12/22/2019 6:[id number] Noble at bedside. Pt appears to have lab ored breathing and scattered crackles in bases. Pt became very flushed in the cheek. Stat ch est x-ray ordered and complete. Pt afebrile. 181 Pt states feeling even more warm and diaphoretic. Temp 100.2 Ice pack placed under arm s. 1845 Dr. Noble aware of chest x-ray. Order for 20 mg IV lasix. Alisia Bello RN Alexi Squires MD - 12/22/2019 5:13 PM PDT [facility]: Infectious Diseases Progress Note Hospital Day: [...] Component Value Units Date/Time Coronavirus (COVID-19) NAAT [[id number]] Collected: 12/16/19 2314 Order Status: Completed Lab Status: Final result Updated: 12/17/19 0022 SARS-CoV-2, NAAT (COVID-19) NEGATIVE Comment: This test was developed and its performance characteristics determined by [employer]. It has not been cleared or approved by the [place] FDA. This test has been authorized by FDA under an Emergency Use Authorization (EUA). Clinicians should be advised to consider a patients signs, symptoms, history, and results of other diagnostic tests when interpreting results. Testing performed at [facility];[address] [place] [address] Coronavirus (COVID-19) NAAT [[id number]] Collected: 12/16/192135 Order Status: Canceled Lab Status: No result Specimen: Tissue from Nasopharynx Culture, Blood [[id number]] Collected: 12/16/191924 Order Status: Completed Lab Status: Preliminary result Updated: 12/18/19716 Specimen: Peripheral Blood Special Requests RIGHT HAND Special Requests Testing performed at [facility];[address] [place] [address] RESULT NO GROWTH AT THIS TIME RESULT Testing performed at [facility], [address] [place] [address] Comment: Testing performed at [facility], [address] [place] [address] Culture, Blood [[id number]] Collected: 12/16/191924 Order Status: Completed Lab Status: Preliminary result Updated: 12/18/19716 Specimen: Peripheral Blood Special Requests LEFT HAND Special Requests Testing performed at [facility];[address] [place] [address]15 RESULT NO GROWTH AT THIS TIME RESULT Testing performed at [facility], [address] [place] [address] Comment: Testing performed at [facility], [address] [place] [address] Microbiology Results (72 hrs) No results found [...] of microhemorrhage. 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 Timing of cardiothoracic surgery to be [...] appears tired. Digestive System (Mouth to Rectum): CENTER LINE CUTTER OPERATOR following. Anthropometrics Current Weight: 59.4 kg (130 lb 13.5 oz) Admit Weight: 59 kg (130 lb 1.1 oz) Biochemical Data, Medical Test, and Procedures Recent Labs 12/22/19 0546 NA 137 K 3.9 GLU 112* BUN 17 CREA 1.10 Food and Nutrition Knowledge Discussed importance of adequate kcal/protein for healing, pt verbalized understanding. Estimated Energy Needs Energy Calorie Requirements: 1770 - 2065 cotavio/day, 30 - 35 kcal/kg/admit wt 59 kg [...] general diet as ordered with texture/liquids per CENTER LINE CUTTER OPERATOR. Encourage high protein, nutr ient dense foods [...] Gunter MD - 12/22/2019 10:59 AM PDT [facility]: Hospitalist Progress Note Pt: Reilly Hamm AGE/SEX: 69 y.o. male ROOM: [address] [place] [address] : 1950 PCP: No Physician on file ADMIT DATE: 12/16/2019 TODAY'S DATE: 12/22/2019 Hospital Day/Hospital Course: LOS: 6 days Mr. Hamm is a 69-year-old male with no significant past medical history who originally pr esented to [facility] on 12/14 with progressive weakness for the last few months an d intermittent fevers for the last 1 month, found to have GPC bacteremia and mitral valve en docarditis, transferred to [facility] on 12/15 for further evaluation. Further work-up [...] Component Value Units Date/Time Coronavirus (COVID-19) NAAT [[id number]] Collected: 12/16/19 2314 Order Status: Completed Lab Status: Final result Updated: 12/17/19 0022 SARS-CoV-2, NAAT (COVID-19) NEGATIVE Comment: This test was developed and its performance characteristics determined by [employer]. It has not been cleared or approved by the [place] FDA. This test has been authorized by FDA under an Emergency Use Authorization (EUA). Clinicians should be advised to consider a patients signs, symptoms, history, and results of other diagnostic tests when interpreting results. Testing performed at [facility];[address] [place] [address] Culture, Blood [[id number]] Collected: 12/16/191924 Order Status: Completed Lab Status: Preliminary result Updated: 12/18/19716 Specimen: Peripheral Blood Special Requests RIGHT HAND Special Requests Testing performed at [facility];[address] [place] [address];[place] [address] RESULT NO GROWTH AT THIS TIME RESULT Testing performed at [facility], [address] [place] [address] Comment: Testing performed at [facility], [address] [place] [address], [place] [address] Culture, Blood [[id number]] Collected: 12/16/191924 Order Status: Completed Lab Status: Preliminary result Updated: 12/18/19716 Specimen: Peripheral Blood Special Requests LEFT HAND Special Requests Testing performed at [facility];[address] [place] [address] RESULT NO GROWTH AT THIS TIME RESULT Testing performed at [facility], [address] [place] [address], [place] [address] Comment: Testing performed at [facility], [address] [place] [address], [place] [address] IMAGING: Reviewed in [employer], no new results. [...] 2. 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 male transferred from [facility] for unalak[place]et dari ral valve endocarditis with severe mitral [...] but no lightheadedness/syncope. He initially presented to [facility] 10/31/2019 with those complaints. Laboratory evaluation was [...] wa s discharged. He then presented to [facility] 12/15/2019 with altered mental stat us and [...] NSR with a rate of 97, short CA and PACs. A repeat echo at [facility] showed preserved LV systolic function with a large mobile vegetation attached to the posterior siria flet of the mitral valve with severe eccentric anterior MR. There is also a small ASD with mild veeq-lo-njnfj atrial shunting, as well as mild TR [...] CV LHC; Surgeon: Jeet Tejeda MD; Location: [facility] CV LAB CARDIAC CATHERIZATION N/A 12/19/2019 Procedure: CV COR ANGIO; Surgeon: Jeet Tejeda MD; Location: [facility] CV LAB CARDIAC CATHERIZATION Left 12/19/2019 Procedure: CV LV; Surgeon: Jeet Tejeda MD; Location: [facility] CV LAB TOOTH EXTRACTION N/A 12/20/2019 Procedure: EXTRACTION TEETH; Surgeon: Job Menjivar DMD; Location: [facility] MAIN OR Allergies Allergen Reactions Canola Oil [...] this AM, no further PSVT s donta Saturday AM GENERAL: Ill-appearing 69 yo M in [...] 2. 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 (10/31/19 - [facility]): EF 55-60%. Impaired relaxation compatible with diastolic [...] kidney injury) ASSESSMENT & PLAN 1. 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 [...] Reddy Speech Pathologist 12/22/2019 8:25 AM PDT Alisia Bennett RN - 12/21/2019 6:57 PM [id number] Assumed care of pt. Assessment unchange d from am. Pt has decreased appetite only ate a few bites of dinner. Some dried bloody drain age to mouth, no bleeding. Sutures intact. Alisia Bello RN Alexi Squires MD - 12/21/2019 1:11 PM PDT [facility]: Infectious Diseases Progress Note Hospital Day: [...] Component Value Units Date/Time Coronavirus (COVID-19) NAAT [[id number]] Collected: 12/16/19 7656 Order Status: Completed Lab Status: Final result Updated: 12/17/19 0022 SARS-CoV-2, NAAT (COVID-19) NEGATIVE Comment: This test was developed and its performance characteristics determined by [employer]. It has not been cleared or approved by the [place] FDA. This test has been authorized by FDA under an Emergency Use Authorization (EUA). Clinicians should be advised to consider a patients signs, symptoms, history, and results of other diagnostic tests when interpreting results. Testing performed at [facility];[address] [place] [address] Coronavirus (COVID-19) NAAT [[id number]] Collected: 12/16/192135 Order Status: Canceled Lab Status: No result Specimen: Tissue from Nasopharynx Culture, Blood [[id number]] Collected: 12/16/191924 Order Status: Completed Lab Status: Preliminary result Updated: 12/18/19 0717 Specimen: Peripheral Blood Special Requests RIGHT HAND Special Requests Testing performed at [facility];[address] [place] [address] RESULT NO GROWTH AT THIS TIME RESULT Testing performed at [facility], [address] [place] [address] Comment: Testing performed at [facility], [address] [place] [address] Culture, Blood [[id number]] Collected: 12/16/191924 Order Status: Completed Lab Status: Preliminary result Updated: 12/18/19 0717 Specimen: Peripheral Blood Special Requests LEFT HAND Special Requests Testing performed at [facility];[address] [place] [address] RESULT NO GROWTH AT THIS TIME RESULT Testing performed at [facility], [address] [place] [address] Comment: Testing performed at [facility], [address] [place] [address]695 Microbiology Results (72 hrs) No results found [...] of microhemorrhage. 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 Timing of cardiothoracic surgery to be [...] note might be different from the willie smith. [facility]: Cardiology Progress Note Date of Admission: 12/16/2019 BRIEF CLINICAL HISTORY: 69 y.o. male transferred from [facility] for unalak[place]et m itral valve endocarditis with severe mitral [...] no lighthe adedness/syncope. He initially presented to [facility] 10/31/2019 with those complaints. Laboratory evaluation was [...] wa s discharged. He then presented to [facility] 12/15/2019 with altered mental stat us and [...] R with a rate of 97, short CA and PACs. A repeat echo at [facility] showed preserved LV systolic f unction with [...] EXTRACTION TEETH; Surgeon: Job Menjivar DMD; Location: [facility] MAIN OR Allergies Allergen Reactions Canola Oil [...] 2. 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 (10/31/19 - [facility]): EF 55-60%. Impaired relaxation compatible with diastolic [...] kidney injury) ASSESSMENT & PLAN 1. 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 [...] MD - 0 12/21/2019 9:53 AM PDT [facility]: Hospitalist Progress Note Pt: Reilly Hamm AGE/SEX: 69 y.o. male ROOM: 9107/9107-01 : 1950 PCP: No Physician on file ADMIT DATE: 12/16/2019 TODAY'S DATE: 12/21/2019 Hospital Day/Hospital Course: LOS: 5 days Mr. Hamm is a 69-year-old male with no significant past medical history who originally pr esented to [facility] on 12/14 with progressive weakness for the last few months an d intermittent fevers for the last 1 month, found to have GPC bacteremia and mitral valve en docarditis, transferred to [facility] on 12/15 for further evaluation. Further work-up [...] Component Value Units Date/Time Coronavirus (COVID-19) NAAT [[id number]] Collected: 12/16/19 2314 Order Status: Completed Lab Status: Final result Updated: 12/17/19 0022 SARS-CoV-2, NAAT (COVID-19) NEGATIVE Comment: This test was developed and its performance characteristics determined by [employer]. It has not been cleared or approved by the US FDA. This test has been authorized by FDA under an Emergency Use Authorization (EUA). Clinicians should be advised to consider a patients signs, symptoms, history, and results of other diagnostic tests when interpreting results. Testing performed at [facility];[address] [place] [address] 54053 Culture, Blood [[id number]] Collected: 12/16/191924 Order Status: Completed Lab Status: Preliminary result Updated: 12/18/19716 Specimen: Peripheral Blood Special Requests RIGHT HAND Special Requests Testing performed at [facility];[address] [place] [address] 06410 RESULT NO GROWTH AT THIS TIME RESULT Testing performed at [facility], [address] [place] [address] 64208 Comment: Testing performed at [facility], [address] [place] [address], [place] [address] Culture, Blood [[id number]] Collected: 12/16/191924 Order Status: Completed Lab Status: Preliminary result Updated: 12/18/19716 Specimen: Peripheral Blood Special Requests LEFT HAND Special Requests Testing performed at [facility];[address] [place] [address] 22160 RESULT NO GROWTH AT THIS TIME RESULT Testing performed at [facility], [address] [place] [address] 29658 Comment: Testing performed at [facility], [address] [place] [address] 40919 IMAGING: Reviewed in [facility], no new results. PROBLEM LIST Principal Problem: [...] 2. 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 including a 1.1 x 2.6 cm [...] MD PhD - 12/21/2019 9:45 AM PDT [facility]: Cardiothoracic Surgery Progress Note ROOM: [facility]/9107- SUBJECTIVE Events Overnight: Mr. Hamm is relatively [...] hours. No results for input(s): PHART, PO2ART, ZUZ2JJM, M8RVHJWO, BEART in the last 168 hours. Recent [...] might be different from the o riginal. [facility]: Infectious Diseases Progress Note Hospital Day: [...] ECGs available Confirmed by JEET TEJEDA MD ([id number]) on 12/20/2019 2:45:08 PM Microbiology Results (Last 14 Days by Collected Date with Culture/Sensitivity) Procedure Component Value Units Date/Time Coronavirus (COVID-19) NAAT [[id number]] Collected: 12/16/19 3101 Order Status: Completed Lab Status: Final result Updated: 12/17/19 0022 SARS-CoV-2, NAAT (COVID-19) NEGATIVE Comment: This test was developed and its performance characteristics determined by [employer]. It has not been cleared or approved by the [place] FDA. This test has been authorized by FDA under an Emergency Use Authorization (EUA). Clinicians should be advised to consider a patients signs, symptoms, history, and results of other diagnostic tests when interpreting results. Testing performed at [facility];[address] [place] [address] 50905 Coronavirus (COVID-19) NAAT [[id number]] Collected: 12/16/192135 Order Status: Canceled Lab Status: No result Specimen: Tissue from Nasopharynx Culture, Blood [[id number]] Collected: 12/16/191924 Order Status: Completed Lab Status: Preliminary result Updated: 12/18/19 0717 Specimen: Peripheral Blood Special Requests RIGHT HAND Special Requests Testing performed at [facility];[address] [place] [address] 01414 RESULT NO GROWTH AT THIS TIME RESULT Testing performed at [facility], [address] [place] [address] 76062 Comment: Testing performed at [facility], [address] [place] [address] 21976 Culture, Blood [[id number]] Collected: 12/16/191924 Order Status: Completed Lab Status: Preliminary result Updated: 12/18/19 0717 Specimen: Peripheral Blood Special Requests LEFT HAND Special Requests Testing performed at [facility];[address] [place] [address] 42977 RESULT NO GROWTH AT THIS TIME RESULT Testing performed at [facility], [address] [place] [address] 50339 Comment: Testing performed at [facility], [address] [place] [address] 12044 Microbiology Results (72 hrs) No results found [...] of microhemorrhage. 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 Timing of cardiothoracic surgery to be determined by CTS specialist in view of stroke. Continue current antibiotic regimen. Patient updated on his/her condition today. Discussed with attending provider: Monty Major MD . Alexi Noble MD, MPH Infectious Diseases 12/20/19 Bree Gunter MD - 12/20/2019 1:31 PM PDTFormatting of this note might be different from the [facility] Service: Hospitalist Progress Note Pt: Reilly Hamm AGE/SEX: 69 y.o. male ROOM: 9107/9107-01 : 1950 PCP: No Physician on file ADMIT DATE: 12/16/2019 TODAY'S DATE: 12/20/2019 Hospital Day/Hospital Course: LOS: 4 days Mr. Hamm is a 69-year-old male with no significant past medical history who originally pr esented to [facility] on 12/14 with progressive weakness for the last few months an d intermittent fevers for the last 1 month, found to have GPC bacteremia and mitral valve en docarditis, transferred to [facility] on 12/15 for further evaluation. Further work-up [...] Component Value Units Date/Time Coronavirus (COVID-19) NAAT [[id number]] Collected: 12/16/19 2314 Order Status: Completed Lab Status: Final result Updated: 12/17/19 0022 SARS-CoV-2, NAAT (COVID-19) NEGATIVE Comment: This test was developed and its performance characteristics determined by [employer]. It has not been cleared or approved by the [place] FDA. This test has been authorized by FDA under an Emergency Use Authorization (EUA). Clinicians should be advised to consider a patients signs, symptoms, history, and results of other diagnostic tests when interpreting results. Testing performed at [facility];[address] [place] [address] 60327 Culture, Blood [[id number]] Collected: 12/16/191924 Order Status: Completed Lab Status: Preliminary result Updated: 12/18/19716 Specimen: Peripheral Blood Special Requests RIGHT HAND Special Requests Testing performed at [facility];[address] [place] [address] 01994 RESULT NO GROWTH AT THIS TIME RESULT Testing performed at [facility], [address] [place] [address] 43154 Comment: Testing performed at [facility], [address] [place] [address] 61404 Culture, Blood [[id number]] Collected: 12/16/191924 Order Status: Completed Lab Status: Preliminary result Updated: 12/18/19716 Specimen: Peripheral Blood Special Requests LEFT HAND Special Requests Testing performed at [facility];[address] [place] [address] 90241 RESULT NO GROWTH AT THIS TIME RESULT Testing performed at [facility], [address] [place] [address] 90145 Comment: Testing performed at [facility], [address] [place] [address] 65758 IMAGING: Reviewed in EP[facility], no new results. [...] 2. 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 male transferred from [facility] for [place] m itral valve endocarditis with severe mitral [...] no lighthe adedness/syncope. He initially presented to [facility] 10/31/2019 with those complaints. Laboratory evaluation was [...] wa s discharged. He then presented to [facility] 12/15/2019 with altered mental stat us and [...] R with a rate of 97, short CA and PACs. A repeat echo at [facility] showed preserved LV systolic f unction with [...] 1 tablet (81 mg total) by valorie Daily 30 tablet 0 Scheduled Medications [Jul] aspirin 81 mg Oral Daily [Jul] atorvaSTATin 80 mg Oral Nightly [Jul] cefTRIAXone 2 g Intravenous Q12H [JUL Hold] dilTIAZem 120 mg Oral Daily [JUL Hold] heparin 5,000 Units Subcutaneous Q12H [Jul] melatonin 3 mg Oral Nightly [Jul] probiotic formula 1 capsule Oral Daily with breakfast Continuous Infusions PRN Medications [JUL Hold] acetaminophen, lidocaine 1%-EPINEPHrine 1:100,000, nitroglycerin, [JUL Hold] [...] 2. 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 ECHOs (12/16/19 - [facility]): 1. EF 65%. 2. Normal RV size [...] No evidence of pericardial effusion. (10/31/19 - [facility]): EF 55-60%. Impaired relaxation compatible with diastolic [...] mitral valve ASSESSMENT & PLAN 1. 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 [...] Aaron MD - 12/19/2019 10:41 AM PDT [facility]: Cardiology Progress Note Date of Admission: 12/16/2019 BRIEF CLINICAL HISTORY: 69 y.o. male transferred from [facility] for un[place] m itral valve endocarditis with severe mitral [...] no lighthe adedness/syncope. He initially presented to [facility] 10/31/2019 with those complaints. Laboratory evaluation was [...] wa s discharged. He then presented to [facility] 12/15/2019 with altered mental stat us and [...] R with a rate of 97, short CA and PACs. A repeat echo at [facility] showed preserved LV systolic f unction with [...] medical recommendations. DATA Recent Labs Lab 12/19/19 0626 12/18/19 1152 12/18/19 0554 12/17/19 0443 NA 138 [...] last 168 hours. Recent Labs Lab 12/19/19 0626 12/18/19 1751 12/18/19 0554 12/17/19 1622 WBC 16.89* [...] 2. 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 (10/31/19 - [facility]): EF 55-60%. Impaired relaxation compatible with diastolic [...] mitral valve ASSESSMENT & PLAN 1. 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 [...] note might be different from the willie smith. [facility]: Infectious Diseases Progress Note Hospital Day: [...] as multiple acute infarcts in the right [employer] territory, with num erous areas of microhemorrhage [...] Component Value Units Date/Time Coronavirus (COVID-19) NAAT [[id number]] Collected: 12/16/19 2314 Order Status: Completed Lab Status: Final result Updated: 12/17/19 0022 SARS-CoV-2, NAAT (COVID-19) NEGATIVE Comment: This test was developed and its performance characteristics determined by [employer]. It has not been cleared or approved by the [place] FDA. This test has been authorized by FDA under an Emergency Use Authorization (EUA). Clinicians should be advised to consider a patients signs, symptoms, history, and results of other diagnostic tests when interpreting results. Testing performed at [facility];[address] [place] [address];[place] [address] Coronavirus (COVID-19) NAAT [[id number]] Collected: 12/16/192135 Order Status: Canceled Lab Status: No result Specimen: Tissue from Nasopharynx Culture, Blood [[id number]] Collected: 12/16/19 192 Order Status: Completed Lab Status: Preliminary result Updated: 12/18/19 0717 Specimen: Peripheral Blood Special Requests RIGHT HAND Special Requests Testing performed at [facility];[address] [place] [address];[place] [address] RESULT NO GROWTH AT THIS TIME RESULT Testing performed at [facility], [address] [place] [address] Comment: Testing performed at [facility], [address] [place] [address] 75194 Culture, Blood [[id number]] Collected: 12/16/191924 Order Status: Completed Lab Status: Preliminary result Updated: 12/18/19716 Specimen: Peripheral Blood Special Requests LEFT HAND Special Requests Testing performed at [facility];[address] [place] [address] 49908 RESULT NO GROWTH AT THIS TIME RESULT Testing performed at [facility], [address] [place] [address] 16820 Comment: Testing performed at [facility], [address] [place] [address] 73781 Microbiology Results (72 hrs) Procedure Component Value Units Date/Time Coronavirus (COVID-19) NAAT [[id number]] Collected: 12/16/192313 Order Status: Completed Lab Status: Final result Updated: 12/17/192 SARS-CoV-2, NAAT (COVID-19) NEGATIVE Comment: This test was developed and its performance characteristics determined by [employer]. It has not been cleared or approved by the [place] FDA. This test has been authorized by FDA under an Emergency Use Authorization (EUA). Clinicians should be advised to consider a patients signs, symptoms, history, and results of other diagnostic tests when interpreting results. Testing performed at [facility];[address] [place] [address] 60388 Culture, Blood [[id number]] Collected: 12/16/191924 Order Status: Completed Lab Status: Preliminary result Updated: 12/18/19716 Specimen: Peripheral Blood Special Requests RIGHT HAND Special Requests Testing performed at [facility];[address] [place] [address] 32984 RESULT NO GROWTH AT THIS TIME RESULT Testing performed at [facility], [address] [place] [address] 17475 Comment: Testing performed at [facility], [address] [place] [address] 11963 Culture, Blood [[id number]] Collected: 12/16/191924 Order Status: Completed Lab Status: Preliminary result Updated: 12/18/19716 Specimen: Peripheral Blood Special Requests LEFT HAND Special Requests Testing performed at [facility];[address] [place] [address] 77594 RESULT NO GROWTH AT THIS TIME RESULT Testing performed at [facility], [address] [place] [address] Comment: Testing performed at [facility], [address] [place] [address] IMAGING: No new images for review today. [...] of microhemorrhage. 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 Repeat CBC and CMP in the am. Patient updated on his/her condition today. Discussed with attending provider: Monty Major MD . Alexi Noble MD, MPH Infectious Diseases 12/19/19 Bree Gunter MD - 12/19/2019 8:24 AM PDTFormatting of this note might be different from the [facility] Service: Hospitalist Progress Note Pt: Reilly Hamm AGE/SEX: 69 y.o. male ROOM: [address] [place] [address] : 1950 PCP: No Physician on file ADMIT DATE: 12/16/2019 TODAY'S DATE: 12/19/2019 Hospital Day/Hospital Course: LOS: 3 days Mr. Hamm is a 69-year-old male with no significant past medical history who originally pr esented to [facility] on 12/14 with progressive weakness for the last few months an d intermittent fevers for the last 1 month, found to have GPC bacteremia and mitral valve en docarditis, transferred to [facility] on 12/15 for further evaluation. Further work-up [...] Component Value Units Date/Time Coronavirus (COVID-19) NAAT [[id number]] Collected: 12/16/19 2314 Order Status: Completed Lab Status: Final result Updated: 12/17/19 0022 SARS-CoV-2, NAAT (COVID-19) NEGATIVE Comment: This test was developed and its performance characteristics determined by [employer]. It has not been cleared or approved by the US FDA. This test has been authorized by FDA under an Emergency Use Authorization (EUA). Clinicians should be advised to consider a patients signs, symptoms, history, and results of other diagnostic tests when interpreting results. Testing performed at [facility];[address] [place] [address];[place] [address] Culture, Blood [[id number]] Collected: 12/16/19 1925 Order Status: Completed Lab Status: Preliminary result Updated: 12/18/19 0717 Specimen: Peripheral Blood Special Requests RIGHT HAND Special Requests Testing performed at [facility];[address] [place] [address] 74126 RESULT NO GROWTH AT THIS TIME RESULT Testing performed at [facility], [address] [place] [address] Comment: Testing performed at [facility], [address] [place] [address] 36361 Culture, Blood [[id number]] Collected: 12/16/195 Order Status: Completed Lab Status: Preliminary result Updated: 12/18/19 0717 Specimen: Peripheral Blood Special Requests LEFT HAND Special Requests Testing performed at [facility];[address] [place] [address] 86694 RESULT NO GROWTH AT THIS TIME RESULT Testing performed at [facility], [address] [facility], [place] [address] Comment: Testing performed at [facility], [address] [place] [address] 30172 IMAGING: Reviewed in EPIC, no new results. [...] 2. 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 Frequent reorientation provided, NPO since NM for scheduled ARNOLDO/cath today. VSS. Hourly rounding otherwise uneventful. Adi Goode RN Alexi Squires MD - 12/18/2019 3:13 PM PDTFormatting of this note might be different from the o riginal. [facility]: Infectious Diseases Progress Note Hospital Day: [...] O POSITIVE Antibody Screen NEGATIVE BB BAND [id number] UNIT # [id number] Product Code LEUKODEPLETED PC Unit Division 00 Unit Status ISSUED Transfusion Status OK TO TRANSFUSE CROSSMATCH RESULT COMPATIBLE UNIT # [id number] Product Code LEUKODEPLETED PC Unit Division 00 Unit Status ISSUED Transfusion Status OK TO TRANSFUSE CROSSMATCH RESULT COMPATIBLE Testing performed at [facility];[address] [place] [address]28 UNIT # [id number] Product Code LEUKODEPLETED PC Unit Division 00 Unit Status ALLOCATED Transfusion Status OK TO TRANSFUSE CROSSMATCH RESULT COMPATIBLE Red Blood Cells (PRBC) - Crossmatch Result Value Ref Range Product Code RED CELL GROUP Units ordered 1 BLOOD BANK COMMENT ORDER RECEIVED IN BLOOD BANK. BLOOD BANK COMMENT Testing performed at [facility];[address] [place] [address] 62656 Red Blood Cells (PRBC) - Crossmatch Result Value Ref Range Product Code RED CELL GROUP Units ordered 2 BLOOD BANK COMMENT ORDER RECEIVED IN BLOOD BANK. BLOOD BANK COMMENT Testing performed at [facility];[address] [place] [address] 37272 Lactate Dehydrogenase Result Value Ref Range LDH TOTAL 244 120 - 246 U/L Retic Count Result Value Ref Range % Reticulocyte Count 4.7 (H) 0.4 - 2.7 % TSH, Reflex Free T4 Result Value Ref Range TSH 1.380 0.450 - 5.100 uIU/mL Microbiology Results (Last 14 Days by Collected Date with Culture/Sensitivity) Procedure Component Value Units Date/Time Coronavirus (COVID-19) NAAT [[id number]] Collected: 12/16/19 2314 Order Status: Completed Lab Status: Final result Updated: 12/17/19 0022 SARS-CoV-2, NAAT (COVID-19) NEGATIVE Comment: This test was developed and its performance characteristics determined by [employer]. It has not been cleared or approved by the [place] FDA. This test has been authorized by FDA under an Emergency Use Authorization (EUA). Clinicians should be advised to consider a patients signs, symptoms, history, and results of other diagnostic tests when interpreting results. Testing performed at [facility];[address] [place] [address] 40327 Coronavirus (COVID-19) NAAT [[id number]] Collected: 12/16/192135 Order Status: Canceled Lab Status: No result Specimen: Tissue from Nasopharynx Culture, Blood [[id number]] Collected: 12/16/19 192 Order Status: Completed Lab Status: Preliminary result Updated: 12/18/19 0717 Specimen: Peripheral Blood Special Requests RIGHT HAND Special Requests Testing performed at [facility];[address] [place] [address] 42114 RESULT NO GROWTH AT THIS TIME RESULT Testing performed at [facility], [address] [place] [address] Comment: Testing performed at [facility], [address] [place] [address] 21997 Culture, Blood [[id number]] Collected: 12/16/191924 Order Status: Completed Lab Status: Preliminary result Updated: 12/18/19716 Specimen: Peripheral Blood Special Requests LEFT HAND Special Requests Testing performed at [facility];[address] [place] [address] 29838 RESULT NO GROWTH AT THIS TIME RESULT Testing performed at [facility], [address] [place] [address] 40220 Comment: Testing performed at [facility], [address] [place] [address] 50069 Microbiology Results (72 hrs) Procedure Component Value Units Date/Time Coronavirus (COVID-19) NAAT [[id number]] Collected: 12/16/192313 Order Status: Completed Lab Status: Final result Updated: 12/17/1921 SARS-CoV-2, NAAT (COVID-19) NEGATIVE Comment: This test was developed and its performance characteristics determined by [employer]. It has not been cleared or approved by the [place] FDA. This test has been authorized by FDA under an Emergency Use Authorization (EUA). Clinicians should be advised to consider a patients signs, symptoms, history, and results of other diagnostic tests when interpreting results. Testing performed at [facility];[address] [place] [address] 37056 Culture, Blood [[id number]] Collected: 12/16/191924 Order Status: Completed Lab Status: Preliminary result Updated: 12/18/19716 Specimen: Peripheral Blood Special Requests RIGHT HAND Special Requests Testing performed at [facility];[address] [place] [address] 62690 RESULT NO GROWTH AT THIS TIME RESULT Testing performed at [facility], [address] [place] [address] 08102 Comment: Testing performed at [facility], [address] [place] [address] 64354 Culture, Blood [[id number]] Collected: 12/16/191924 Order Status: Completed Lab Status: Preliminary result Updated: 12/18/19716 Specimen: Peripheral Blood Special Requests LEFT HAND Special Requests Testing performed at [facility];[address] [place] [address] 48699 RESULT NO GROWTH AT THIS TIME RESULT Testing performed at [facility], [address] [place] [address] Comment: Testing performed at [facility], [address] [place] [address] IMAGING: No new images for review today. [...] Alexi Noble MD, MPH Infectious Diseases 12/18/19 anielle Cerna PharmD - 12/18/2019 11:03 AM PDT Vancomycin [...] Day 1 12/15 1500 mg IV ONCE 2122 Day 2 12/16 1000 mg IV Q24H [...] vancomycin therapy as indicated. Thank You, Danielle Cerna, PharmD, 12/18/2019, 10:47 AM PDT Monty Gunter MD - 12/18/2019 10:49 AM PDT [facility]: Hospitalist Progress Note Pt: Reilly Hamm AGE/SEX: 69 y.o. male ROOM: 91/9107-01 : 1950 PCP: No Physician on file ADMIT DATE: 12/16/2019 TODAY'S DATE: 12/18/2019 Hospital Day/Hospital Course: LOS: 2 days Mr. Hamm is a 69-year-old male with no significant past medical history who originally pr esented to [facility] on 12/14 with progressive weakness for the last few months an d intermittent fevers for the last 1 month, found to have GPC bacteremia and mitral valve en docarditis, transferred to [facility] on 12/15 for further evaluation. Further work-up [...] 12/18/2019 1049 Last data filed at 12/18/2019 0947 Gross per 24 hour Intake Output 1225 [...] Component Value Units Date/Time Coronavirus (COVID-19) NAAT [[id number]] Collected: 12/16/19 2314 Order Status: Completed Lab Status: Final result Updated: 12/17/19 0022 SARS-CoV-2, NAAT (COVID-19) NEGATIVE Comment: This test was developed and its performance characteristics determined by [employer]. It has not been cleared or approved by the US FDA. This test has been authorized by FDA under an Emergency Use Authorization (EUA). Clinicians should be advised to consider a patients signs, symptoms, history, and results of other diagnostic tests when interpreting results. Testing performed at [facility];[address] [place] [address] Culture, Blood [[id number]] Collected: 12/16/191924 Order Status: Completed Lab Status: Preliminary result Updated: 12/18/19 0717 Specimen: Peripheral Blood Special Requests RIGHT HAND Special Requests Testing performed at [facility];[address] [place] [address] RESULT NO GROWTH AT THIS TIME RESULT Testing performed at [facility], [address] [place] [address] Comment: Testing performed at [facility], [address] [place] [address] Culture, Blood [[id number]] Collected: 12/16/191924 Order Status: Completed Lab Status: Preliminary result Updated: 12/18/19 0717 Specimen: Peripheral Blood Special Requests LEFT HAND Special Requests Testing performed at [facility];[address] [facility] [place] [address] RESULT NO GROWTH AT THIS TIME RESULT Testing performed at [facility], [address] [facility], [place] [address] Comment: Testing performed at [facility], [address] [facility] [place], [place] [address] IMAGING: Reviewed in [facility], no new results. PROBLEM LIST Principal Problem: [...] consulted -cardiology, Dr. Tejeda consulted, NPO at [facility] for possible cath and ARNOLDO tomorrow -ID, [...] 1 month Muscle Mass: Severe depletion PPx: [facility] Code status: Full Contacts: Nathalie, , , [...] of surgery still to be determined JJA eet Tejeda MD - 12/18/2019 8:16 AM PDT [facility]: Cardiology Progress Note Date of Admission: 12/16/2019 BRIEF CLINICAL HISTORY: 69 y.o. male transferred from [facility] for [place] m itral valve endocarditis with severe mitral [...] no lighthe adedness/syncope. He initially presented to [facility] 10/31/2019 with those complaints. Laboratory evaluation was [...] wa s discharged. He then presented to [facility] 12/15/2019 with altered mental stat us and [...] R with a rate of 97, short CA and PACs. A repeat echo at [facility] showed preserved LV systolic f unction with [...] No evidence of pericardial effusion. (10/31/19 - [facility]): EF 55-60%. Impaired relaxation compatible with diastolic [...] mitral regurgitation ASSESSMENT & PLAN 1. Infective [place] mitral valve endocarditis with large mobile vegetation [...] with pulmonary hypertension by 12/16/19 echocardiogram at [facility], mos t likely related to severe MR. 8. Type II diabetes mellitus - HgbA1C 6.2% on 10/31/19 admission and type II diabetes [facility] was diagnosed. ?Typically the cutoff for diagnosis [...] more than one vascular access site, , [place], CVA, bleeding (including the need for blood [...] includi ng but not limited to , jjz-uotgxrkpwb-hzqtbbt tear or rupture, risks of moderate anest [...] Nj Curtis RN 12/17/2019 6:30 PM PDT j Curtis RN - 0 12/17/2019 3:47 PM PDTAssumed [...] Component Value Units Date/Time Coronavirus (COVID-19) NAAT [[id number]] Collected: 12/16/19 2314 Order Status: Completed Lab Status: Final result Updated: 12/17/19 0022 SARS-CoV-2, NAAT (COVID-19) NEGATIVE Comment: This test was developed and its performance characteristics determined by [employer]. It has not been cleared or approved by the US FDA. This test has been authorized by FDA under an Emergency Use Authorization (EUA). Clinicians should be advised to consider a patients signs, symptoms, history, and results of other diagnostic tests when interpreting results. Testing performed at [facility];[address] [place] [address];[place] [address] Culture, Blood [[id number]] Collected: 12/16/191924 Order Status: Sent Lab Status: In process Updated: 12/16/192036 Specimen: Peripheral Blood Culture, Blood [[id number]] Collected: 12/16/191924 Order Status: Sent Lab Status: In process Updated: 12/16/192035 Specimen: Peripheral Blood Dosing History Date Dosing Regimen Admin Times Level SCr Comments Day 1 12/15 60 mg IV ONCE 2357 1.16 (on 12/14) Day 2 12/16 60 mg IV Q12H 0911 Due 2200 [...] indicate d. Thank You, Reyna Neil, PharmD, [facility] 12/17/19 2:51 PM PDT eyna Neil [facility] - 12/17/2019 2:42 PM PDT . Vancomycin [...] Day 3 12/17 Due: AM lab Day 12/18 Day 5 12/19 *SCr = mg/dL [...] to vancomycin therapy as indicated. Thank You, eRyna Neil, PharmD, [facility] 12/17/19 2:41 PM PDT erryJeet, RD - 12/17/2019 9:21 AM PDT NUTRITION [...] Neil MD - 12/17/2019 9:05 AM PDT [facility] Hospitalist Progress Note Hospital Day: 1 [...] given cefepime and zosyn 2/2 BC from [facility] grew out gram positive cocci [...] consult in am Pt was admitted to [facility] on with fatigue and poor appetite. 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 Invalid input(s): PROCALCITONIN CrCl cannot be calculated (Patient's most recent lab result is older than the maximum 3 day s allowed.). Microbiology Results (72 hrs) Procedure Component Value Units Date/Time Coronavirus (COVID-19) NAAT [[id number]] Collected: 12/16/192135 Order Status: Sent Lab Status: In process Updated: 12/16/192143 Specimen: Tissue from Nasopharynx Culture, Blood [[id number]] Collected: 12/16/191924 Order Status: Sent Lab Status: In process Updated: 12/16/192036 Specimen: Peripheral Blood Culture, Blood [[id number]] Collected: 12/16/191924 Order Status: Sent Lab Status: [...] therapy as indicate d. Thank You, Tayler Posey PharmD 12/16/2019 9:50 PM PDT Tayler Mercer PharmD - 12/16/2019 9:49 PM PDT . Vancomycin Dosing Per Pharmacy Subjective/Objective Reilly Hamm is a 69 y.o. male started on vancomycin 12/15 for bacteremia (GPC in jania sadler), endocarditis. Additional antimicrobials: gentamicin (received cefepime and [...] Procedure Component Value Units Date/Time Culture, Blood [[id number]] Collected: 12/16/191924 Order Status: Sent Lab Status: In process Updated: 12/16/192036 Specimen: Peripheral Blood Culture, Blood [[id number]] Collected: 12/16/191924 Order Status: Sent Lab Status: [...] to vancomycin therapy as indicated. Thank You, Jose Alberto AlmazanD, 12/16/2019, 9:29 PM PDT arika Pinedo, RN - 12/16/2019 6:39 PM PDTPt arrived from [facility] at 1800. Cardiazem stopped upon a rrival. Pt saline locked. This nurse tried to contact MD regarding pt's arrival to get orders. Able to get ahold of t he MD at 1820. MD stating that he is not the admitting MD and to try another MD. PCC contact ed. MD not on the floor at this time. Pt placed in contact droplet precuautions d/t COVID test pending with [facility].Electron ically signed by Sarika Pinedo, DOROTHY at 12/16/2019 7:41 PM PDTdocumented in this [...] Galvan MD PhD, 12/24/2019 7:27 AM PDT [facility] Electronically signed by Reilly Galvan MD PhD at 12/12 7:27 AM PDTRashaad Elder MD - 12/17/2019 2:40 PM PDTAugust 2019 Reason for consultation: Mitral valve endocarditis [...] An echocardiogram was performed on 15 December [facility] h showed evidence of a vegetation on the [...] report. The patient has been transferred to [facility] for further treatment and evaluation. He has [...] diabetes and presented with an elevated tropo ja and ST segment changes in October of [...] cardiac catheterization performed. Infectious disease specialist misty whyte also like the patient seen by [...] Your sincerely Rashaad Elder MD, FRCSC, FACS Reilly Devi MD - 7:20 PM PDT Patient Name: Reilly Hamm Date of Admission: 12/16/2019 Referring Provider: Source of Information: patient-Reliability Chief Complaint: Fever and weakness HPI: Pt is a 69 y/o male with no significant PMH admitted to [facility] on 12/15/19 wit h weakness for 4 [...] cocci in chains. Pt was transferred to [facility] on 12/15 for further treatment and [...] 1 tablet (81 mg total) by valorie Daily 30 tablet 0 Allergies: Allergies Allergen [...] Affect: Mood normal. Behavior: Behavior normal. Labs: [facility] CaMgPhos LFT CBC Coag Last labs from [...] given cefepime and zosyn 2/2 BC from [facility] grew out gram positive cocci [...] consult in am Pt was admitted to [facility] on with fatigue and poor appetite. [...] with pt on 12/16/19 Family Contact: Nathalie [phone] Something about patient:Pt lives with , they [...] note might be different from the original. [facility] [address] [place] [id number] Patient: Reilly Hamm ID: [id number] : 1950 Age: 69 Gender: male Room #: 82984 Physician: Luis E Malcolm Manager Organizational: Josh Montoya Ref. Physician: Carolin Lang [facility] Recording Date: 12/25/2019 Duration: 00:20:58 Report Date: [...] Mckeon MD - 12/29/2019 2:23 PM PDT [facility]: Cardiology Initial Consult Note Name of Psych Therapist: Olvin Mckeon MD Date of Admission: 12/16/2019 [...] CV LHC; Surgeon: Jeet Tejeda MD; Location: [facility] CV LAB CARDIAC CATHERIZATION N/A 12/19/2019 Procedure: CV COR ANGIO; Surgeon: Jeet Tejeda MD; Location: [facility] CV LAB CARDIAC CATHERIZATION Left 12/19/2019 Procedure: CV LV; Surgeon: Jeet Tejeda MD; Location: [facility] CV LAB MITRAL VALVE REPLACEMENT N/A 12/24/2019 Procedure: MITRAL VALVE REPLACEMENT; Surgeon: Reilly Galvan MD PhD; Location: [facility] CHRISTI N OR TOOTH EXTRACTION N/A 12/20/2019 Procedure: EXTRACTION TEETH; Surgeon: Job Menjivar DMD; Location: [facility] MAIN OR MEDICATIONS Home Medications Medications Prior [...] file Gets together: Not on file Attends temple service: Not on file Active member of [...] measuring only 2.5 mm, with min imal evpq-yu-iutjk shunting. There is no evidence of hfdqv-eb-otbz shunting on the intraveno us bubble contrast [...] on file Olvin Mckeon MD 12/29/[address] - 12/25/2019 2:06 PM PDTAssociated Order(s): IP CONSULT TO NUTRITION SERVICES NUTRITION NOTE Summary Reason For Assessment: per organizational policy, nurse/nurse practitioner consult(H risk follow up. Consult - TF recs per RD.) Pt is POD # 1 MVR, is intubated, sedated. Per discussion in rounds plan is to start TF. Diet Experience Self-Selected Diet: Pt in [facility] has food allergy/intolerance to soybean oil and canola oil. Spoke with pt's Nathalie at [phone]. Nathalie states pt does not have a [...] A RNP - 12/24/2019 12:48 PM PDT [facility]: Risk Control Product Liability Director Initial Consult Note Reilly Sushil Cheyanne 69 y.o. Date of Admission: 12/16/2019 Reason for Consultation: bacterial endocarditis Requesting Physician: Dr. Galvan, Cardiothoracic Surgery History Obtained From: chart review, reason patient could not give history: intubated/sedat ed CHIEF COMPLAINT: weakness Subjective HISTORY OF PRESENT ILLNESS The patient is a 69 y.o. male with significant past medical history of diabetes mellitus wh o presented to [facility] 12/14 due to a 4 month history of weakness and 1 month hist ory of fevers. Echocardiogram was perfromed which revealed mitral valve endocarditis with mi tral valve regurgitation. He was started on zosyn and cefipime. Blood cultures obtained on a dmission grew out GPC in chains in 2/2 bottles. 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 His carious teeth were removed [...] CV LHC; Surgeon: Jeet Tejeda MD; Location: [facility] CV LAB CARDIAC CATHERIZATION N/A 12/19/2019 Procedure: CV COR ANGIO; Surgeon: Jeet Tejeda MD; Location: [facility] CV LAB CARDIAC CATHERIZATION Left 12/19/2019 Procedure: CV LV; Surgeon: Jeet Tejeda MD; Location: [facility] CV LAB TOOTH EXTRACTION N/A 12/20/2019 Procedure: EXTRACTION TEETH; Surgeon: Job Menjivar DMD; Location: [facility] MAIN OR ALLERGIES Allergies Allergen Reactions Canola [...] file Gets together: Not on file Attends temple service: Not on file Active member of [...] ID. Has been on ceftriaxone 2gm for SONOSCOPE OPERATOR coverage. Source of Infection: endocarditis and bacteremia [...] PM PDTAssociated Order(s): PROVIDER TO PROVIDER CONSULT [facility]: Neurology Initial Consult Note Date of Admission: 12/16/2019 Reason for Consultation: stroke Requesting Physician: Monty Major MD, Hospitalist History Obtained From: patient and chart review CHIEF COMPLAINT: confusion HISTORY OF PRESENT ILLNESS The patient is a 69 y.o. male with no significant past medical history who was admitted fro [facility] due to mitral valve endocarditis. I was [...] 2. 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 includ ing a 1.1 x 2.6 [...] mg Oral Daily diphenhydrAMINE 25 mg Oral Wire Coiler Machine Operator famotidine 20 mg Intravenous Wire Coiler Machine Operator heparin 5,000 Units Subcutaneous Q12H melatonin 3 mg Oral Nightly probiotic formula 1 capsule Oral Daily with breakfast [START ON 12/20/2019] sodium chloride 0.9% Intravenous Wire Coiler Machine Operator Continuous Infusions PRN Medications acetaminophen, ondansetron, sodium [...] RIGHT HAND Special Requests Testing performed at [facility];[address] [place] [address] RESULT NO GROWTH AT THIS TIME RESULT Testing performed at [facility], [address] [place] [address] Culture, Blood Specimen: Peripheral Blood Result Value Ref Range Special Requests LEFT HAND Special Requests Testing performed at [facility];[address] [place] [address] RESULT NO GROWTH AT THIS TIME RESULT Testing performed at [facility], [address] [place] [address] Coronavirus (COVID-19) NAAT Result Value Ref Range [...] O POSITIVE Antibody Screen NEGATIVE BB BAND [id number] UNIT # [id number] Product Code LEUKODEPLETED PC Unit Division 00 Unit Status ISSUED,FINAL Transfusion Status OK TO TRANSFUSE CROSSMATCH RESULT COMPATIBLE UNIT # [id number] Product Code LEUKODEPLETED PC Unit Division 00 Unit Status ISSUED,FINAL Transfusion Status OK TO TRANSFUSE CROSSMATCH RESULT COMPATIBLE Testing performed at [facility];[address] [place] [address] UNIT # [id number] Product Code LEUKODEPLETED PC Unit Division 00 Unit Status ALLOCATED Transfusion Status OK TO TRANSFUSE CROSSMATCH RESULT COMPATIBLE Red Blood Cells (PRBC) - Crossmatch Result Value Ref Range Product Code RED CELL GROUP Units ordered 1 BLOOD BANK COMMENT ORDER RECEIVED IN BLOOD BANK. BLOOD BANK COMMENT Testing performed at [facility];[address] [facility] [facility] [place] [address] Red Blood Cells (PRBC) - Crossmatch Result Value Ref Range Product Code RED CELL GROUP Units ordered 2 BLOOD BANK COMMENT ORDER RECEIVED IN BLOOD BANK. BLOOD BANK COMMENT Testing performed at [facility];[address] [facility] [place] [address] PROBLEM LIST Principal Problem: Acute bacterial endocarditis [...] Jef Ryan MD 12/19/2019 1:01 PM PDT oponce, Job Aaron DMD - 12/17 6:43 PM PDTAssociated Order(s): PROVIDER TO PROVIDER CONSULTFormatting of this note m ight be different from the original. [facility] Department of wood borer Consult Note Date of Admission: 12/16/2019 Reason for Consultation: Endocarditis; carious/fractured teeth Requesting Physician: Dr. Major, Hospitalist History Obtained From: Dr. Major CHIEF COMPLAINT: Carious/fractured teeth; endocarditis HISTORY OF PRESENT ILLNESS The patient is a 69 y.o. male with no significant PMH admitted to [facility] on 12/15/19 with weakness for 4 months [...] cocci in chains. Pt was transferred to [facility] on 12/16/19 for further treatment and evaluation. [...] consultation request Job Menjivar DMD 12/18/2019 Alexi Espinzoa ph, MD - 12/17/2019 2:40 PM Raymundo 2019 Reason for consultation: Mitral valve endocarditis [...] An echocardiogram was performed on 15 December [facility] showed evidence of a vegetation on the mitral valve measuring 24 mm x 16 mm with the same jet of eccentric severe mitral regurgitation. The patient denied any symptoms consistent wi congestive heart failure and still no evidence [...] report. The patient has been transferred to [facility] for further treatment and evaluation. He has [...] catheterization performed. Infectious disease specialist womary jo ld also like the patient seen by [...] very much Your sincerely Rashaad Elder MD, [facility], FACS edMartha avendano PA - 12/17/2019 1:36 PM PDTAssociated Order(s): PROVIDER TO PROVIDER CONSULT [facility]: Cardiology Initial Consult Note Name of Psych Therapist: Martha Wolfe. LEA Dougherty/Dr. Daryl Tejeda Primary Diabetic Educator: None prior Reason for Consultation: [place] mitral valve endocarditis with severe MR, SVT Requesting Physician: Dr. Hart, Hospitalist History Obtained From: Patient (poor historian), Chart Review CHIEF COMPLAINT: Confusion, fever HISTORY OF PRESENT ILLNESS: Reilly Hamm is a 69 y.o. male who was transferred from [facility] fo r [place] mitral valve endocarditis with severe mitral regurgitation [...] lightheadedness/syncope. In summary, he initially presented to [facility] 10/31/2019 with those complaints. Laboratory evaluation significant [...] to wors en, he then presented to [facility] 12/15/2019 with altered mental status and fe [...] pulmonary hypertension. He was subsequently transferred to [facility] yesterday. Card iology is consulted for further [...] but he is now a dmitted with [place] mitral valve endocarditis with severe MR. No [...] file Gets together: Not on file Attends temple service: Not on file Active member of [...] DIGLEVEL:3)@ ECGs reviewed: None since transfer to [facility] ECGs from admission at [facility] reviewed and as documented in HPI Echocardiogram: TTE 12/16/19 ([facility]): 1. Normal LV cavity, normal LV systolic [...] No evidence of pericardial effusion. TTE 10/31/19 ([facility]): Summary Left ventricle is normal in size [...] None prior ASSESSMENT & PLAN 1. Infective [place] mitral valve endocarditis with large mobile vegetation [...] on 10/31/19 [facility]. ?Typically the cutoff for diagnosis [...] cardiac cath Fr madelaine MORRISON. MD Real Alexander, Alexi Mueller MD - 12/17/2019 8:56 AM PDTAssociated Order(s): PROVIDER TO PROVIDER CONSULT [facility]: Infectious Diseases Initial Consult Note Date [...] file Gets together: Not on file Attends temple service: Not on file Active member of [...] 50 mL IVPB 60 mg Intravenous Q12H Jose Alberto McdermottD gentamicin per pharmacy Other Pharmacy Consult Reilly [...] Component Value Units Date/Time Coronavirus (COVID-19) NAAT [[id number]] Collected: 12/16/192313 Order Status: Completed Lab Status: Final result Updated: 12/17/1921 SARS-CoV-2, NAAT (COVID-19) NEGATIVE Comment: This test was developed and its performance characteristics determined by [employer]. It has not been cleared or approved by the US FDA. This test has been authorized by FDA under an Emergency Use Authorization (EUA). Clinicians should be advised to consider a patients signs, symptoms, history, and results of other diagnostic tests when interpreting results. Testing performed at [facility];[address] [place] [address];[place] [address] Coronavirus (COVID-19) NAAT [[id number]] Collected: 12/16/192135 Order Status: Canceled Lab Status: No result Specimen: Tissue from Nasopharynx Culture, Blood [[id number]] Collected: 12/16/191924 Order Status: Sent Lab Status: In process Updated: 12/16/192036 Specimen: Peripheral Blood Culture, Blood [[id number]] Collected: 12/16/191924 Order Status: Sent Lab Status: In process Updated: 12/16/192035 Specimen: Peripheral Blood Microbiology Results (72 hrs) Procedure Component Value Units Date/Time Coronavirus (COVID-19) NAAT [[id number]] Collected: 12/16/192313 Order Status: Completed Lab Status: Final result Updated: 08/05/20 0022 SARS-CoV-2, NAAT (COVID-19) NEGATIVE Comment: This test was developed and its performance characteristics determined by [employer]. It has not been cleared or approved by the US FDA. This test has been authorized by FDA under an Emergency Use Authorization (EUA). Clinicians should be advised to consider a patients signs, symptoms, history, and results of other diagnostic tests when interpreting results. Testing performed at [facility];[address] [place] [address];[place] [address] Culture, Blood [[id number]] Collected: 12/16/191924 Order Status: Sent Lab Status: In process Updated: 12/16/192036 Specimen: Peripheral Blood Culture, Blood [[id number]] Collected: 12/16/191924 Order Status: Sent Lab Status: [...] Bed Mobility Supine to Sit, Level of Phelps: minimal assist (75% patient effort), moderate assist (50% patient effort) Transfers Sit-Stand, Level of Phelps: stand by assist Gait Level of Phelps: stand by assist Assistive Device: 4 wheeled [...] Bed Mobility Goal Most Recent Value LTG Phelps Level minimum assist (75% patient effort) at 12/25/2019 1022 All Transfers Goal Most Recent Value LTG Phelps Level stand by assist, contact guard assist at 12/25/2019 1022 Gait Goal Most Recent Value LTG Phelps Level stand by assist, contact guard assist at 12/25/2019 1022 LTG Assistive Device 2 wheeled walker (FWW), 4 wheeled walker (4WW) at 12/25/2019 1022 LTG Distance (feet) 150 at 12/25/2019 1022 lan of Care - Sheila Pillai MA, CCC-CENTER LINE CUTTER OPERATOR - 12/30/2019 1:16 PM PDT Speech Therapy [...] to discharge - [facility] with [facility] [...] Pt will tolerate LRD at 12/30/2019 1259 CENTER LINE CUTTER OPERATOR Time Calculation CENTER LINE CUTTER OPERATOR Individual Start Time: 1259 CENTER LINE CUTTER OPERATOR Individual Stop Time: 1322 CENTER LINE CUTTER OPERATOR Individual Total Time: 23 CENTER LINE CUTTER OPERATOR Total Treatment Time: 23 SHEILA PILLAI MA, CCC-CENTER LINE CUTTER OPERATOR 12/30/2019 lan of Job Jara MSW - 12/30/2019 10:22 AM PDTDISCHARGE PLANNING WELLNESS GUIDE p/c with Renetta with Dr. Combs office with [facility], obtain ed upcoming trae aden appt ([phone] fax, phone) for SundayJan 05. Dr. Combs will follow NOT follow new Coumadin or new Home Health orders until after new appt on Jan 05. WELLNESS GUIDE p/c with Pilar with [facility], set up teaching today at 2pm in room with Pt and Pt daughter with Pt, unfortunately they are unable to field control inspector medications to Pt by next 9pm dose, so Pt will stay another night in hospital, (avoidable day documented), Pt funmilayo l receive his 9:00am dose on Sunday then leave here at approx. 9:30am. Rosa sheriff RN. Pt already has discharge medications filled by [facility]. New Coumadin Clinic appt for 12/31 with Kenroy MCCOY at [facility], appt added to AVS. Transportation: Pt will transport Pt home tomorrow morning. DCP: Home with IV Abx - Sunday 9:30am YOBANY HOLGUIN [phone] [id number] lan of Darling Dover OTR/Chivo - 12/30/2019 9:00 AM PDT Occupational Therapy Treatment Note Recommended discharge disposition: home with assist Post discharge occupational therapy recommendation: family involved/supportive, home health Equipment Recommendations: hand held shower head, long handled sponge, contract modeler, sock aide, toilet tongs, shower chair Barriers [...] sternal ADLs Grooming Assessment/Training Grooming, Level of Phelps: set up required Assistive Device: none Grooming Assess/Train, Position: sitting Upper Body Dressing Assessment/Training UB Dressing Assess/Train, Comment: Instructions provided for technique and tactile cueing t o maintain UEs close to chest when donning shirt overhead UB Dressing, Level of Phelps: minimal assist (75% patient effort), verbal cues requir ed Assistive Device: none UB Dressing Assess/Train, Position: sitting UB Dressing Impairments: (precautions) Lower Body Dressing Assessment/Training LB Dressing Assess/Train, Comment: Pt was able to safetly bring feet up in order to don ryan ts over feet. LB Dressing, Level of Phelps: minimal assist (75% patient effort), verbal cues requir ed Assistive Device: none LB Dressing Assess/Train, Position: sitting, standing LB Dressing Impairments: (precautions) Transfers Sit-Stand, Level of Phelps: stand by assist Stand-Sit, Level of Phelps: stand by assist [id number]-Tue, Assistive Device: 4 wheeled walker (4WW) Impairments: strength decreased Balance Sitting Balance: Static: good balance Sitting Balance: Dynamic: good balance Standing Balance: Static: fair balance Goals Reflects last filed data and may be from multiple contributors. UB Dressing Goal Most Recent Value LTG Status new at 12/29/2019 1425 LTG Phelps Level minimum assist (75% patient effort) at 12/29/2019 1425 LTG Adaptive Equipment none at 12/29/2019 1425 LTG Comments Maintaining sternal precautions at 12/29/2019 1425 LB Dressing Goal Most Recent Value LTG Status new at 12/29/2019 1425 LTG Phelps Level minimum assist (75% patient effort), verbal cues required at 2019 1425 LTG Adaptive Equipment contract modeler, shoe horn, long handled, sock-aid at 12/29/2019 1425 LTG Comments Maintaining sternal precautions at 12/29/2019 1425 OT Time Calculation OT Individual Start Time: 09 OT Individual Stop Time: 937 OT Individual Total Time: 38 OT Total Treatment Time: 38 10: 15 AM PDTPlan of Care - Aki Saucedo, PT, DPT - 12/30/2019 8:15 AM PDT [...] Bed Mobility Supine to Sit, Level of Phelps: minimal assist (75% patient effort), moderate assist (50% patient effort) Transfers Sit-Stand, Level of Phelps: stand by assist Gait Level of Phelps: stand by assist Assistive Device: 4 wheeled walker (4WW) Distance (feet): 350 Gait Pattern Analysis: swing-through gait Gait Deviations: yeison decreased Goals Reflects last filed data and may be from multiple contributors. All Bed Mobility Goal Most Recent Value LTG Phelps Level minimum assist (75% patient effort) at 12/25/2019 1022 All Transfers Goal Most Recent Value LTG Phelps Level stand by assist, contact guard assist at 12/25/2019 1022 Gait Goal Most Recent Value LTG Phelps Level stand by assist, contact guard assist at 12/25/2019 1022 LTG Assistive Device 2 wheeled walker (FWW), 4 wheeled walker (4WW) at 12/25/2019 1022 LTG Distance (feet) 150 at 12/25/2019 1022 lan of Salas pelletier - Salo Slade RN - 12/29/2019 9:48 PM PDT Problem: Pain (Cardiovascular Surgery) Goal: Acceptable Pain Control Outcome: Ongoing, progressing Pt resting comfortably with no s/s of distress No acute events, VSS A M PDTPlan of Job Jara MSW - 12/29/2019 5:18 PM PDTDISCHARGE PLANNING WELLNESS GUIDE met with Pt regarding choice for home infusion, states preference is [facility]. WELLNESS GUIDE p/c Pilar with [facility], needs IV Abx order, discussed with Pt . WELLNESS GUIDE faxed referral to [facility], faxed referral to Lillie for PT and RN. Need Home health order for PT and RN Pt states Pt has new PCP - Dr. LILLIAN ACOSTA MD - [address] [place] [address], [place] [address] - Need to call Office on Sunday morning for Coumadin Follow up appt. DCP: Home YOBANY HOLGUIN [phone] cell lan of Papa Osuna PT - [...] oriented x 4 Transfers Sit-Stand, Level of Phelps: stand by assist Stand-Sit, Level of Phelps: stand by assist Aho-[id number]-Rax, Assistive Device: 4 wheeled walker (4WW) Toilet, Level of Phelps: stand by assist Toilet, Assistive Device: 4 wheeled walker (4WW) Safety Issues: step length decreased Impairments: impaired balance, strength decreased Gait Level of Phelps: stand by assist Assistive Device: 4 wheeled walker (4WW) Distance (feet): 350 Goals Reflects last filed data and may be from multiple contributors. All Bed Mobility Goal Most Recent Value LTG Phelps Level minimum assist (75% patient effort) at 12/25/2019 1022 All Transfers Goal Most Recent Value LTG Phelps Level stand by assist, contact guard assist at 12/25/2019 1022 Gait Goal Most Recent Value LTG Phelps Level stand by assist, contact guard assist at 12/25/2019 1022 LTG Assistive Device 2 wheeled walker (FWW), 4 wheeled walker (4WW) at 12/25/2019 1022 LTG Distance (feet) 150 at 12/25/2019 1022 PT Time Calculation Individual Start Time: 1555 Individual Stop Time: 1625 Individual Total Time: 30 PT Total Treatment Time: 30 lan of Lilo - Sonia Salmon RN - 12/29/2019 3:20 PM PDTPt is alert and oriented x 4. Uses FWW for ambula ting. Nonskid socks in place. Bed in low position and locked. Uses call light appropriately. No fevers or signs of infections. Wound vac in place at 125 mmHg. VSS Sonia Brown RN 12/29/19 lan of Car Darling Whitehead, OTR/Chivo - 12/29/2019 2:25 PM PDTFormatting of this note might be differen t from the original. Occupational Therapy Initial Evaluation Note Recommended discharge disposition: home with assist Post discharge occupational therapy recommendation: family involved/supportive, home healt h Equipment Recommendations: hand held shower head, long handled sponge, contract modeler, sock aide, toilet tongs, shower chair Barriers [...] pull shirt down. LB dressing: use of contract modeler, sock aid, or bringing foot up to [...] LTG Status new at 12/29/2019 1425 LTG Phelps Level minimum assist (75% patient effort) at 12/29/2019 1425 LTG Adaptive Equipment none at 12/29/2019 1425 LTG Comments Maintaining sternal precautions at 12/29/2019 1425 LB Dressing Goal Most Recent Value LTG Status new at 12/29/2019 1425 LTG Phelps Level minimum assist (75% patient effort), verbal cues required at 2019 1425 LTG Adaptive Equipment contract modeler, shoe horn, long handled, sock-aid at 12/29/2019 [...] Speech: clear, logical Transfers Sit-Stand, Level of Phelps: stand by assist Stand-Sit, Level of Phelps: stand by assist Toilet, Level of Phelps: stand by assist Safety Issues: step length decreased Impairments: impaired balance, strength decreased Gait Level of Phelps: stand by assist, contact guard assist Assistive Device: 4 wheeled walker (4WW) Distance (feet): 350 Goals Reflects last filed data and may be from multiple contributors. All Bed Mobility Goal Most Recent Value LTG Phelps Level minimum assist (75% patient effort) at 12/25/2019 1022 All Transfers Goal Most Recent Value LTG Phelps Level stand by assist, contact guard assist at 12/25/2019 1022 Gait Goal Most Recent Value LTG Phelps Level stand by assist, contact guard assist [...] this note might be different from bon pelletier original. Physical Therapy Treatment Note Recommended discharge [...] toilet, sit to/from stand Sit-Stand, Level of Phelps: contact guard assist Stand-Sit, Level of Phelps: contact guard assist Spf-Ccvlz-Xch, Assistive Device: 4 wheeled walker (4WW) Toilet, Level of Phelps: contact guard assist Toilet, Assistive Device: 4 wheeled walker (4WW) Impairments: impaired balance, strength decreased Gait Level of Phelps: contact guard assist Assistive Device: 4 wheeled walker (4WW), gait belt Distance (feet): 200 Gait Deviations: yeison decreased, stride length decreased Safety Issues: balance decreased during turns Goals Reflects last filed data and may be from multiple contributors. All Bed Mobility Goal Most Recent Value LTG Phelps Level minimum assist (75% patient effort) at 12/25/2019 1022 All Transfers Goal Most Recent Value LTG Phelps Level stand by assist, contact guard assist at 12/25/2019 1022 Gait Goal Most Recent Value LTG Phelps Level stand by assist, contact guard assist at 12/25/2019 1022 LTG Assistive Device 2 wheeled walker (FWW), 4 wheeled walker (4WW) at 12/25/2019 1022 LTG Distance (feet) 150 at 12/25/2019 1022 PT Time Calculation Individual Start Time: 1300 Individual Stop Time: 1357 Individual Total Time: 57 PT Total Treatment Time: 57 lan of Lilo - Benjamín Westbrook PT - 12/28/2019 8:40 [...] Documentation: sit to/from stand Sit-Stand, Level of Phelps: contact guard assist Stand-Sit, Level of Phelps: contact guard assist Sox-Kzqdz-Eeu, Assistive Device: gait belt, other (see comments)(HPW) Safety Issues: step length decreased Impairments: impaired balance, strength decreased Gait Level of Phelps: contact guard assist Assistive Device: gait belt, other (see comments)(HPW) Distance (feet): 120 Gait Deviations: yeison decreased, double stance time increased, limb motion velocity decr eased Safety Issues: balance decreased during turns, sequencing ability decreased, step length de creased, weight-shifting ability decreased Goals Reflects last filed data and may be from multiple contributors. All Bed Mobility Goal Most Recent Value LTG Phelps Level minimum assist (75% patient effort) at 12/25/2019 1022 All Transfers Goal Most Recent Value LTG Phelps Level stand by assist, contact guard assist at 12/25/2019 1022 Gait Goal Most Recent Value LTG Phelps Level stand by assist, contact guard assist at 12/25/2019 1022 LTG Assistive Device 2 wheeled walker (FWW), 4 wheeled walker (4WW) at 12/25/2019 1022 LTG Distance (feet) 150 at 12/25/2019 1022 PT Time Calculation Individual Start Time: 08 Individual Stop Time: 40 Individual Total Time: 30 PT Total Treatment Time: 30 lan of Care - Rima Webb RN - 12/28/2019 6:50 AM PDT Problem: Activity Intolerance (Cardiovascular Surgery) Goal: Improved Activity Tolerance Outcome: Not met, adequate for care transition Pt correctly follows sternal precautions, pt is strong and able to ambulate with standby a ssist. lan of Yfn Bhagat RN - 12/27/2019 5:10 PM PDT Problem: [...] me left side delay noted. lan of Benjamín Coreas PT - 12/27/2019 2:35 PM PDTFormatting of [...] Documentation: sit to/from stand Sit-Stand, Level of Phelps: minimal assist (75% patient effort) Stand-Sit, Level of Phelps: moderate assist (50% patient effort) Bos-[id number]-Nqv, Assistive Device: gait belt, other (see comments)(HPW) Safety Issues: loses balance backward, step length decreased Impairments: impaired balance, strength decreased Gait Level of Phelps: minimal assist (75% patient effort) Assistive Device: [...] Bed Mobility Goal Most Recent Value LTG Phelps Level minimum assist (75% patient effort) at 12/25/2019 1022 All Transfers Goal Most Recent Value LTG Phelps Level stand by assist, contact guard assist at 12/25/2019 1022 Gait Goal Most Recent Value LTG Phelps Level stand by assist, contact guard assist [...] Pt will tolerate LRD at 12/21/2019 1224 CENTER LINE CUTTER OPERATOR Time Calculation CENTER LINE CUTTER OPERATOR Individual Start Time: 1420 CENTER LINE CUTTER OPERATOR Individual Stop Time: 1432 CENTER LINE CUTTER OPERATOR Individual Total Time: 12 CENTER LINE CUTTER OPERATOR Total Treatment Time: 12 lan of Rima Mckenna RN - 12/27/2019 5:00 AM PDT Problem: Fall Injury Risk Goal: Absence of Fall and Fall-Related Injury Outcome: Ongoing, progressing Pt ambulated from bed to commode and into chair, pt was able to follow instructions, howev er reported feeling dizzy. Mobility improved with [...] lan of Care - Yelena Chavez, MS [facility]-CENTER LINE CUTTER OPERATOR - 12/26/2019 3:28 PM PDTFormatting of this [...] Pt will tolerate LRD at 12/21/2019 1224 CENTER LINE CUTTER OPERATOR Time Calculation CENTER LINE CUTTER OPERATOR Individual Start Time: 1528 CENTER LINE CUTTER OPERATOR Individual Stop Time: 1551 CENTER LINE CUTTER OPERATOR Individual Total Time: 23 CENTER LINE CUTTER OPERATOR Total Treatment Time: 23 lan of Aki Domingo, PT, DPT - 12/26/2019 [...] Bed Mobility Supine to Sit, Level of Phelps: moderate assist (50% patient effort), 2 person assist required Transfers Sit-Stand, Level of Phelps: moderate assist (50% patient effort), 2 person assist req uired Gait Level of Phelps: moderate assist (50% patient effort), 1 person [...] Bed Mobility Goal Most Recent Value LTG Phelps Level minimum assist (75% patient effort) at 12/25/2019 1022 All Transfers Goal Most Recent Value LTG Phelps Level stand by assist, contact guard assist at 12/25/2019 1022 Gait Goal Most Recent Value LTG Phelps Level stand by assist, contact guard assist at 12/25/2019 1022 LTG Assistive Device 2 wheeled walker (FWW), 4 wheeled walker (4WW) at 12/25/2019 1022 LTG Distance (feet) 150 at 12/25/2019 1022 lan of [facility] - Lillie Patel MSW - 12/26/2019 9:47 AM PDTAttended daily rounding. Pt was extuba prasanna this morning and is confused, per RN. At baseline, pt resides with his spouse in [place], [place]. to follow for discharge planning. YOBANY [...] team. No interve ntion. lan of Trevor Coombs ARNP - 12/25/2019 10:22 PM PDTMult[facility]are Health Service: Risk Control Product Liability Director Restraint for Medical Interference: Face to Face Assessment Reilly Sushil Cheyanne 69 y.o. Date of Admission: 12/16/2019 Restraint: [...] evident and p atient oriented to person/place/time ARELY Kohler 12/25/2019 10:22 PM PDT lan of Marcie Canchola RN - 12/25/2019 2:55 PM PDT Problem: Infection Goal: Infection Symptom Resolution Outcome: Ongoing, progressing Intervention: Prevent or Manage Infection Flowsheets (Taken 12/25/2019 6432) Infection Management: aseptic technique maintained Note: Patient remains afebrile; WBC trending down from 12/23. No signs or symptoms of new i nfection. Patient remains on antibiotics esearch Note - Fadumo Williamson, - 12/25/2019 12:53 PM PDTBRAVE STUDY CONSENT Title: Biomedical Resilience & Readiness in [employer] Operating Environments (BRAVE)-- Sampling Molecular Effectors of COVID-19 in Exhaled Breath Condensate (EBC) Partner Study with [facility] ([facility]) You are being asked to provide verbal consent of behalf of a participant to participate in this study as their legally authorized player services representative (LAR). The goal of the study [...] has received study information from the Primary Gas Mask Assembler or an authorized Sub-I nvestigator and have [...] opportunity to ask questions. He/She voluntarily gives [facility] permission to collect the specimens and send de-identified specimens a nd data to [facility]. He/She understands that participation is voluntary, and that he/she is shameka e to withdraw the participant at any time, without giving a reason and without penalty. He/She voluntarily agrees/ or does not consent as a legally authorized player services representative on be half of a participant to participate in this study, as documented below: Do you consent for the patient to participate in this research study? __X___ Yes, I consent No, I do not consent Do you consent to use specimens and data for future research? __X___ Yes, I consent No, I do not consent Participant name: Reilly Hamm Legally authorized player services representative's name: Nathalie Hamm () Principle Gas Mask Assembler: Fadumo Rodriguez DO Date: 12/25/2019 [facility] IRB IRB Number: [id number] IRB Approval Date: 12/17/2019 lan of Diann [...] Medicare so likely will need SNF for mcc IV abx. Contact Information Family Contact Information: Name: Nathalie Hamm(spouse); [phone] Phone: spouse additonal contact: Alvaro Newton, daughter, [id number] signed by Da Thomas ch WELLNESS GUIDE at 12/25/2019 10:34 AM PDTPlan of Aki [...] to/from sit Supine to Sit, Level of Phelps: moderate assist (50% patient effort), maximal assist (25% patient effort), 2 person assist required Transfers Additional Documentation: sit to/from stand Sit-Stand, Level of Phelps: moderate assist (50% patient effort), 1 person + 1 person to manage equipment Gait Level of Phelps: moderate assist (50% patient effort), maximal assist (25% patient ef fort), 1 person + 1 person to manage equipment Assistive Device: none, gait belt Distance (feet): 2 Additional Documentation: pattern, deviations, safety, impairments Gait Pattern Analysis: swing-to gait Gait Deviations: yeison decreased, limb motion velocity decreased, step length decreased, abhdk-wc-dzlwxt ratio decreased, weight-shifting ability decreased Safety Issues: [...] Bed Mobility Goal Most Recent Value LTG Phelps Level minimum assist (75% patient effort) at 12/25/2019 1022 All Transfers Goal Most Recent Value LTG Phelps Level stand by assist, contact guard assist at 12/25/2019 1022 Gait Goal Most Recent Value LTG Phelps Level stand by assist, contact guard assist at 12/25/2019 1022 LTG Assistive Device 2 wheeled walker (FWW), 4 wheeled walker (4WW) at 12/25/2019 1022 LTG Distance (feet) 150 at 12/25/2019 1022 lan of Karina Cueto MD - 12/25/2019 12:17 AM [facility] Service: Risk Control Product Liability Director Restraint for Medical Interference: Face to Face [...] Anesthesiologist: Nimesh Castillo MD Anesthesia Type: General Clay Pigeon Setter: Len Felipe RN; Hang Walker RN Etiquette Teacher: Trevon Bob, OR Tech Registered Nurse [place] Planning Manager: Ingrid Delvalle, FASHION CONSULTANT SELLING; Ayana Parsons FASHION CONSULTANT SELLING Scrub: Kaycee Pina, OR Tech; Alisia Monk, OR Tech; Dianne Caballero, OR Tech ; Antoinette Baca, OR Tech Relief Etiquette Teacher: Jaxon Beckman [facility] Cycle Specialist: Bernadette Price [facility] INTRAOPERATIVE DATA: Cross-clamp time: 110 min CPB [...] Care Review Outcome: Ongoing, progressing Flowsheets (Taken 12/23/2019 2133) Plan of Care Reviewed With: patient Note: Present for bedside report. Medications discussed, all cares explained, plan of care for shift, including pre op baths, agreed upon. Goal: Optimal Comfort and Wellbeing Outcome: Ongoing, progressing Note: All needs met at this time. Call light within reach and use encouraged. lan of Lilo - Sheree Miguel MS [facility]-CENTER LINE CUTTER OPERATOR - 12/23/2019 4:41 PM PDT Speech Therapy [...] tolerate LRD at 12/21/2019 1224 lan of Preethi Carlin RN - 12/23/2019 12:15 PM PDT Problem: Infection Goal: Infection Symptom Resolution Outcome: Ongoing, progressing pt remains afebrile. Pt continues on IV ABX per ID. Problem: Adult Inpatient Plan of Care Goal: Plan of Care Review Outcome: Ongoing, progressing Pre-op teaching done today for MVR tomorrow am. present for all teaching. PT had spee ch reevaluate swallow post teeth extraction. Sharepoint Net Developer at bedside to see pre-op. Pt expressed [...] Intake Outcome: Ongoing, progressing Pt seen by creasing machine operator. Pt has decreased appetite. Encouraging food that seem appetizing and with each interaction. Chart check complete. Alisia Bello RN lan of Llilie Dill MSW - 12/22/2019 11:40 AM PDTCare Management Follow-Up Readmission Risk: HIGH Current Discharge Plan Anticipated Discharge Disposition: home Expected DC Date: 12/29/2019 Steps Taken Toward Discharge: WELLNESS GUIDE attended daily rounding. Pt will have valve [...] and Wellbeing Outcome: Ongoing, progressing lan of Lilo - Mallory Rodriguez RN - 12/21/2019 5:39 [...] answered, agreed to continue care. lan of Lilo - Brooke Huitron V, Speech Pathologist - [...] Pt will tolerate LRD at 12/21/2019 1224 CENTER LINE CUTTER OPERATOR Time Calculation CENTER LINE CUTTER OPERATOR Individual Start Time: 1224 CENTER LINE CUTTER OPERATOR Individual Stop Time: 1246 CENTER LINE CUTTER OPERATOR Individual Total Time: 22 CENTER LINE CUTTER OPERATOR Total Treatment Time: 22 12: 46 PM [...] for pain x1. End of shift chart jania moore complete. Mallory Rodriguez RN p Note - To Job kohler DMD - 12/20/2019 12:05 PM [facility] Service: wood borer Operative Note Pre-operative Diagnosis: Bacterial endocarditis; carious [...] LL) Removal of midline palatal torus Surgeon: Job Menjivar DMD Entry Level Finance(s): OR staff Anesthesia: General Estimated Blood Loss: less than 100 mL Indications: The patient is a 69 y.o. year-old male who was referred to [facility] and Maxillof acial Surgeons for evaluation [...] was taken to operating room 2 at [facility] and was placed on the operating room [...] stable Job Menjivar DMD 12/20/2019 lan of Lilo - Adi Charlton RN - 12/19/2019 9:28 [...] check complete. Adi Goode RN lan of Lilo - Nj Silva RN - 12/19/2019 2:04 [...] Prior to Admission or Illness Arrival From: home([place], [place]) Lives With: spouse Living Arrangements: house Functional Status: indep at baseline Home Accessibility: no concerns Transportation Available: family or friend will provide Able to return to prior living: yes Care Management Concerns Last discharge date: Readmission Within Last 30 Days: no previous admission in last 30 days PCP: Cathi casillas, Dr Curse? Contact Information Family Contact Information: Name: Nathalie Hamm(spouse); [phone] Phone: spouse additonal contact: Alvaro Newton, daughter, [...] RN 12/18/2019 3:14 PM PDT lan of Annika Keane RN - 12/18/2019 12:58 AM PDT Problem: Infection Goal: Infection Symptom Resolution Outcome: Ongoing, progressing Problem: Fall Injury Risk Goal: Absence of Fall and Fall-Related Injury Outcome: Ongoing, progressing lan of Sarika Luciano RN - 12/17/2019 10:01 AM PDTProblem: Infection [...] check complete. Sarika Pinedo RN lan of Bulmaro Davison RN - 12/17/2019 5:38 AM PDTAntibiotics initiated [...] | | 2019 | Visit | | [employer] [address] [place] [address] | | | | | | [place] | | | | | | [address] | | | | | | | | +--------+---------+ + + + | 01/15/ | Office | Cardiothoracic | Keaton Ernandez, | | | 2019 | Visit | Surgery | LEA [address] | | | | | | [place] | | | | | | [place] [address] | | | | | | [phone] | | | | | | | | +--------+---------+ + + + | 01/20/ | Office | Cardiology | Valarie, | | | 2019 | Visit | | ARLEY [address]ver [address] | | | | | | [address] | | | | | | [place] | | | | | | [address] | | | | | | | | +--------+---------+ + + + | 01/20/ | Office | Infectious Diseases | Josh Mckeon DO | | | 2019 | Visit | | [address] | | | | | | [place] [address] | | | | | | [phone] | | | | | | | [...] | + +--------+ + + + | RANDY BELLA | Routin | 12/24/2019 | | Results [...] | + +--------+ + + + | GENTAMICIN, TROUGH | DOROTA | 12/19/2019 | | Results [...] Procedure Note | + + | Juan, [id number] - 12/31/2019 6:04 AM PDT | | [...] | | | | | performed at [facility];[address] | | | | | | [address];[place] | | | | | | [address] | | | | + + + + + + + + | Specimen | + + | Blood | + + + + + + + | Performing | Address | City/State/Zipcode | Phone Number | | Organization | | | | + + + + + | [facility] | [address] | [place] [address] | [phone] | + + + + + Magnesium (12/31/2019 5:36 AM PDT) + + + + + + | Component | Value | Ref Range | Performed | Pathologist | | | | | At | Signature | + + + + + + | Magnesium | 1.5 (L)Comment: Testing | 1.7 - 2.4 mg/dL | [facility] | | | | performed at [facility];8 | | LABORATORY | | | | [address];[place], [place] | | | | | | [address] | | | | + + + + + + + + | Specimen | + + | Blood | + + + + + + + | Performing | Address | City/State/Zipcode | Phone Number | | Organization | | | | + + + + + | [facility] | [address] | [place] [address] | [phone] | + + + + + CBC [...] 0.02Comment: Testing | 0.00 - 0.10 | [facility] | | | Absolute | performed at [facility] | LABORATORY | | | | [address], | | | | | | [place] [address] | | | | + + + + + + + + | Specimen | + + | Blood | + + + + + + + | Performing | Address | City/State/Zipcode | Phone Number | | Organization | | | | + + + + + | [facility] | [address] | [place] [address] | [phone] | + + + + + Basic [...] | | | | | performed at [facility];[address] | | | | | | [address];[place] | | | | | | [address] | | | | + + + + + + + + | Specimen | + + | Blood | + + + + + + + | Performing | Address | City/State/Zipcode | Phone Number | | Organization | | | | + + + + + | [facility] | [address] | [place] [address] | [phone] | + + + + + POC [...] | | | POC | performed at [facility];[address] | | LABORATORY | | | | [address];[place] | | | | | | [address] | | | | + + + + + + + + | Specimen | + + | | + + + + + + + | Performing | Address | City/State/Zipcode | Phone Number | | Organization | | | | + + + + + | [facility] | [address] | [place] [address] | [phone] | + + + + + POC Glucose (12/30/2019 4:42 PM PDT) + + + + + + | Component | Value | Ref Range | Performed | Pathologist | | | | | At | Signature | + + + + + + | Glucose, | 99Comment: Testing | 65 - 99 mg/dL | [facility] | | | POC | performed at [facility];[address] | | LABORATORY | | | | [address];[place] | | | | | | [address] | | | | + + + + + + + + | Specimen | + + | | + + + + + + + | Performing | Address | City/State/Zipcode | Phone Number | | Organization | | | | + + + + + | [facility] | [address] | [place] [address] | [phone] | + + + + + POC Glucose (12/30/2019 7:26 AM PDT) + + + + + + | Component | Value | Ref Range | Performed | Pathologist | | | | | At | Signature | + + + + + + | Glucose, | 187 (H)Comment: Testing | 65 - 99 mg/dL | [facility] | | | POC | performed at [facility];[address] | | LABORATORY | | | | [address];[place] | | | | | | [address] | | | | + + + + + + + + | Specimen | + + | | + + + + + + + | Performing | Address | City/State/Zipcode | Phone Number | | Organization | | | | + + + + + | [facility] | [address] | [place] [address] | [phone] | + + + + + XR [...] Procedure Note | + + | Juan, [id number] - 12/30/2019 5:56 AM PDT | | [...] | INR | 1.7Comment: REFERENCE | | [facility] | | | | RANGE:0.9 - 1.2 [...] | | | | | performed at [facility];[address] | | | | | | [address];[place] | | | | | | [address] | | | | + + + + + + + + | Specimen | + + | Blood | + + + + + + + | Performing | Address | City/State/Zipcode | Phone Number | | Organization | | | | + + + + + | [facility] | [address] [facility] [facility] | [place] [address] | [phone] | + + + + + Magnesium (12/30/2019 4:50 AM PDT) + + + + + + | Component | Value | Ref Range | Performed | Pathologist | | | | | At | Signature | + + + + + + | Magnesium | 1.7Comment: Testing | 1.7 - 2.4 mg/dL | [facility] | | | | performed at [facility];[address] | | LABORATORY | | | | [address] [facility];[place], [place] | | | | | | [address] | | | | + + + + + + + + | Specimen | + + | Blood | + + + + + + + | Performing | Address | City/State/Zipcode | Phone Number | | Organization | | | | + + + + + | [facility] | [address] | [place] [address] | [phone] | + + + + + CBC [...] | | | Absolute | performed at [facility];[address] | [address] | LABORATORY | | | | [address];[place] | | | | | | [address] | | | | + + + + + + + + | Specimen | + + | Blood | + + + + + + + | Performing | Address | City/State/Zipcode | Phone Number | | Organization | | | | + + + + + | [facility] | [address] | [place] [address] | [phone] | + + + + + Basic [...] | | | | | performed at [facility];[address] | | | | | | [address];[place], [place] | | | | | | [address] | | | | + + + + + + + + | Specimen | + + | Blood | + + + + + + + | Performing | Address | City/State/Zipcode | Phone Number | | Organization | | | | + + + + + | [facility] | [address] | [place] [address] | [phone] | + + + + + POC [...] | | | POC | performed at [facility];[address] | | LABORATORY | | | | [address];[place], [place] | | | | | | [address] | | | | + + + + + + + + | Specimen | + + | | + + + + + + + | Performing | Address | City/State/Zipcode | Phone Number | | Organization | | | | + + + + + | [facility] | [address] | [place] [address] | [phone] | + + + + + POC Glucose (12/29/2019 4:44 PM PDT) + + + + + + | Component | Value | Ref Range | Performed | Pathologist | | | | | At | Signature | + + + + + + | Glucose, | 102 (H)Comment: Testing | 65 - 99 mg/dL | [facility] | | | POC | performed at [facility];[address] | | LABORATORY | | | | [address];[place] | | | | | | [address] | | | | + + + + + + + + | Specimen | + + | | + + + + + + + | Performing | Address | City/State/Zipcode | Phone Number | | Organization | | | | + + + + + | [facility] | [address] | [place] [address] | [phone] | + + + + + POC Glucose (12/29/2019 11:37 AM PDT) + + + + + + | Component | Value | Ref Range | Performed | Pathologist | | | | | At | Signature | + + + + + + | Glucose, | 100 (H)Comment: Testing | 65 - 99 mg/dL | [facility] | | | POC | performed at [facility];[address] | | LABORATORY | | | | [address];[place], [place] | | | | | | [address] | | | | + + + + + + + + | Specimen | + + | | + + + + + + + | Performing | Address | City/State/Zipcode | Phone Number | | Organization | | | | + + + + + | [facility] | [address] | [place] [address] | [phone] | + + + + + POC Glucose (12/29/2019 8:51 AM PDT) + + + + + + | Component | Value | Ref Range | Performed | Pathologist | | | | | At | Signature | + + + + + + | Glucose, | 93Comment: Testing | 65 - 99 mg/dL | [facility] | | | POC | performed at [facility];[address] | | LABORATORY | | | | [address];[place], [place] | | | | | | [address] | | | | + + + + + + + + | Specimen | + + | | + + + + + + + | Performing | Address | City/State/Zipcode | Phone Number | | Organization | | | | + + + + + | [facility] | [address] | [place] [address] | [phone] | + + + + + ECG [...] MD | | | | | | ([id number]) on 12/29/2019 | | | | | [...] Procedure Note | + + | Juan, [id number] - 12/29/2019 6:31 AM PDT | | [...] | | | | | performed at [facility] | | | | | | [address] [facility];[place], [place] | | | | | | [address] | | | | + + + + + + + + | Specimen | + + | Blood | + + + + + + + | Performing | Address | City/State/Zipcode | Phone Number | | Organization | | | | + + + + + | [facility] | [address] | [place] [address] | [phone] | + + + + + Magnesium (12/29/2019 5:36 AM PDT) + + + + + + | Component | Value | Ref Range | Performed | Pathologist | | | | | At | Signature | + + + + + + | Magnesium | 1.8Comment: Testing | 1.7 - 2.4 mg/dL | [facility] | | | | performed at [facility];[address] | | LABORATORY | | | | [address];[place] | | | | | | [address] | | | | + + + + + + + + | Specimen | + + | Blood | + + + + + + + | Performing | Address | City/State/Zipcode | Phone Number | | Organization | | | | + + + + + | [facility] | [address] [facility] | [place] [address] | [phone] | + + + + + CBC [...] | | | Absolute | performed at [facility];[address] | [address] | LABORATORY | | | | [address];[place] | | | | | | [address] | | | | + + + + + + + + | Specimen | + + | Blood | + + + + + + + | Performing | Address | City/State/Zipcode | Phone Number | | Organization | | | | + + + + + | [facility] | [address] | [place] [address] | [phone] | + + + + + Basic [...] 8.2 (L) | 8.5 - 10.5 | [facility] [...] | | | | | performed at [facility];[address] | | | | | | [facility];[place], [place] | | | | | | [address] | | | | + + + + + + + + | Specimen | + + | Blood | + + + + + + + | Performing | Address | City/State/Zipcode | Phone Number | | Organization | | | | + + + + + | [facility] | [address] | [place] [address] | [phone] | + + + + + MRI [...] Report Signed by: | | | Fernando Mckeon, Jorge Alberto Sign Date/Time: 12/28/2019 10:58 PM | | [...] Procedure Note | + + | Juan, [id number] - 12/28/2019 11:01 PM PDT | | [...] | | | POC | performed at [facility];[address] | | LABORATORY | | | | [address];[place], [place] | | | | | | [address] | | | | + + + + + + + + | Specimen | + + | | + + + + + + + | Performing | Address | City/State/Zipcode | Phone Number | | Organization | | | | + + + + + | [facility] | [address] | [place] [address] | [phone] | + + + + + POC Glucose (12/28/2019 4:24 PM PDT) + + + + + + | Component | Value | Ref Range | Performed | Pathologist | | | | | At | Signature | + + + + + + | Glucose, | 114 (H)Comment: Testing | 65 - 99 mg/dL | [facility] | | | POC | performed at [facility];[address] | | LABORATORY | | | | [address];[place] | | | | | | [address] | | | | + + + + + + + + | Specimen | + + | | + + + + + + + | Performing | Address | City/State/Zipcode | Phone Number | | Organization | | | | + + + + + | [facility] | [address] | [place] [address] | [phone] | + + + + + Marime INR (12/28/2019 11:29 AM PDT) + + + + + + | Component | Value | Ref Range | Performed | Pathologist | | | | | At | Signature | + + + + + + | INR | 1.1Comment: REFERENCE | | [facility] | | | | RANGE:0.9 - 1.2 [...] | | | | | performed at [facility];[address] | | | | | | [address];[place] | | | | | | [address] | | | | + + + + + + + + | Specimen | + + | Blood | + + + + + + + | Performing | Address | City/State/Zipcode | Phone Number | | Organization | | | | + + + + + | [facility] | [address] | [place] [address] | [phone] | + + + + + POC [...] | | | POC | performed at [facility];[address] | | LABORATORY | | | | [address];[place], [place] | | | | | | [address] | | | | + + + + + + + + | Specimen | + + | | + + + + + + + | Performing | Address | City/State/Zipcode | Phone Number | | Organization | | | | + + + + + | [facility] | [address] | [place] [address] | [phone] | + + + + + ECG [...] | | | | | EARNESTINE THOMAS ([id number]) on | | | | | | [...] | | | POC | performed at [facility];[address] | | LABORATORY | | | | [address];[place], [place] | | | | | | [address] | | | | + + + + + + + + | Specimen | + + | | + + + + + + + | Performing | Address | City/State/Zipcode | Phone Number | | Organization | | | | + + + + + | [facility] | [address] | [place] [address] | [phone] | + + + + + XR [...] Procedure Note | + + | Juan, [id number] - 12/28/2019 6:01 AM PDT | | [...] KR | | | | performed at [facility];[address] | | LABORATORY | | | | [address];[place], [place] | | | | | | [address] | | | | + + + + + + + + | Specimen | + + | Blood | + + + + + + + | Performing | Address | City/State/Zipcode | Phone Number | | Organization | | | | + + + + + | [facility] | [address] | [place] [address] | [phone] | + + + + + CBC [...] 0.02Comment: Testing | 0.00 - 0.10 | [facility] | | | Absolute | performed at [facility];[address] | K[address] | LABORATORY | | | | [address];[place] | | | | | | [address] | | | | + + + + + + + + | Specimen | + + | Blood | + + + + + + + | Performing | Address | City/State/Zipcode | Phone Number | | Organization | | | | + + + + + | [facility] | [address] | [place] [address] | [phone] | + + + + + Basic [...] | | | | | performed at [facility];[address] | | | | | | [address];[place] | | | | | | [address] | | | | + + + + + + + + | Specimen | + + | Blood | + + + + + + + | Performing | Address | City/State/Zipcode | Phone Number | | Organization | | | | + + + + + | [facility] | [address] | [place] [address] | [phone] | + + + + + POC [...] | | | POC | performed at [facility];[address] | | LABORATORY | | | | [address];[place] | | | | | | [address] | | | | + + + + + + + + | Specimen | + + | | + + + + + + + | Performing | Address | City/State/Zipcode | Phone Number | | Organization | | | | + + + + + | [facility] | [address] | [place] [address] | [phone] | + + + + + POC [...] | | | POC | performed at [facility];[address] | | LABORATORY | | | | [address];[place] | | | | | | [address] | | | | + + + + + + + + | Specimen | + + | | + + + + + + + | Performing | Address | City/State/Zipcode | Phone Number | | Organization | | | | + + + + + | [facility] | [address] | [place] [address] | [phone] | + + + + + Potassium (12/27/2019 12:39 PM PDT) + + + + + + | Component | Value | Ref Range | Performed | Pathologist | | | | | At | Signature | + + + + + + | K | 4.4Comment: Testing | 3.5 - 4.9 | [facility] | | | | performed at [facility];888 | mmol/L | LABORATORY | | | | [address];[place], [place] | | | | | | [address] | | | | + + + + + + + + | Specimen | + + | Blood | + + + + + + + | Performing | Address | City/State/Zipcode | Phone Number | | Organization | | | | + + + + + | [facility] | [address] | [place] [address] | [phone] | + + + + + POC [...] | | | POC | performed at [facility];[address] | | LABORATORY | | | | [address];[place], [place] | | | | | | [address] | | | | + + + + + + + + | Specimen | + + | | + + + + + + + | Performing | Address | City/State/Zipcode | Phone Number | | Organization | | | | + + + + + | [facility] | [address] | [place] [address] | [phone] | + + + + + XR [...] | | | Report Signed by: Fernando Collier Dwane Sign Date/Time: 12/27/2019 | | | 9:56 [...] Procedure Note | + + | Juan, [id number] - 12/27/2019 10:00 AM PDT | | [...] Report Signed by: | | | Fernando Collier Dwane Sign Date/Time: 12/27/2019 9:29 AM | | [...] Procedure Note | + + | Juan, [id number] - 12/27/2019 9:33 AM PDT | | [...] Testing | 65 - 99 mg/dL | [facility] | | | POC | performed at [facility];[address] | | LABORATORY | | | | [address];[place] | | | | | | [address] | | | | + + + + + + + + | Specimen | + + | | + + + + + + + | Performing | Address | City/State/Zipcode | Phone Number | | Organization | | | | + + + + + | [facility] | [address] | [place] [address] | [phone] | + + + + + XR [...] Procedure Note | + + | Juan, [id number] - 12/27/2019 6:04 AM PDT | | [...] [facility] | | | | performed at [facility];8 | | LABORATORY | | | | [address];[place] | | | | | | [address] | | | | + + + + + + + + | Specimen | + + | Blood | + + + + + + + | Performing | Address | City/State/Zipcode | Phone Number | | Organization | | | | + + + + + | [facility] | [address] | [place] [address] | [phone] | + + + + + CBC [...] | | | Absolute | performed at [facility];[address] | K[address] | LABORATORY | | | | [address];[place], [place] | | | | | | [address] | | | | + + + + + + + + | Specimen | + + | Blood | + + + + + + + | Performing | Address | City/State/Zipcode | Phone Number | | Organization | | | | + + + + + | [facility] | [address] | [place] [address] | [phone] | + + + + + Basic [...] | | | | | performed at [facility] | | | | | | [facility];[place], [place] | | | | | | [address] | | | | + + + + + + + + | Specimen | + + | Blood | + + + + + + + | Performing | Address | City/State/Zipcode | Phone Number | | Organization | | | | + + + + + | [facility] | [address] | [place] [address] | [phone] | + + + + + POC Glucose (12/26/2019 8:10 PM PDT) + + + + + + | Component | Value | Ref Range | Performed | Pathologist | | | | | At | Signature | + + + + + + | Glucose, | 138 (H)Comment: Testing | 65 - 99 mg/dL | [facility] | | | POC | performed at [facility];[address] | | LABORATORY | | | | [address];[place], [place] | | | | | | [address] | | | | + + + + + + + + | Specimen | + + | | + + + + + + + | Performing | Address | City/State/Zipcode | Phone Number | | Organization | | | | + + + + + | [facility] | [address] | [place] [address] | [phone] | + + + + + POC [...] | | | POC | performed at [facility];888 | | LABORATORY | | | | [address] [facility];[place], [place] | | | | | | [address] | | | | + + + + + + + + | Specimen | + + | | + + + + + + + | Performing | Address | City/State/Zipcode | Phone Number | | Organization | | | | + + + + + | [facility] | [address] | [place] [address] | [phone] | + + + + + POC Glucose (12/26/2019 1:33 PM PDT) + + + + + + | Component | Value | Ref Range | Performed | Pathologist | | | | | At | Signature | + + + + + + | Glucose, | 121 (H)Comment: Testing | 65 - 99 mg/dL | [facility] | | | POC | performed at [facility];[address] | | LABORATORY | | | | [address];[place] | | | | | | [address] | | | | + + + + + + + + | Specimen | + + | | + + + + + + + | Performing | Address | City/State/Zipcode | Phone Number | | Organization | | | | + + + + + | [facility] | [address] | [place] [address] | [phone] | + + + + + Echo [...] study, done 12/16/2019 | | | at [facility]. | | |12/16/2019 at [facility]. | | | | | + + [...] Testing | 65 - 99 mg/dL | [facility] | | | POC | performed at [facility];[address] | | LABORATORY | | | | [address];[place], [place] | | | | | | [address] | | | | + + + + + + + + | Specimen | + + | | + + + + + + + | Performing | Address | City/State/Zipcode | Phone Number | | Organization | | | | + + + + + | [facility] | [address] | [place] [address] | [phone] | + + + + + ECG [...] | | | | | EARNESTINE THOMAS ([id number]) on | | | | | | [...] Grewal Richard Sign Date/Time: | | | 12/26/2019 6:18 AM | | + + + + + | Procedure Note | + + | Juan, [id number] - 12/26/2019 6:22 AM PDT | | [...] Fernando Grewal Richard | | Sign Date/Time: 12/26/2019 6:18 AM [...] | | | POC | performed at [facility];[address] | | LABORATORY | | | | [address];[place] | | | | | | [address] | | | | + + + + + + + + | Specimen | + + | | + + + + + + + | Performing | Address | City/State/Zipcode | Phone Number | | Organization | | | | + + + + + | [facility] | [address] | [place] [address] | [phone] | + + + + + Magnesium (12/26/2019 3:15 AM PDT) + + + + + + | Component | Value | Ref Range | Performed | Pathologist | | | | | At | Signature | + + + + + + | Magnesium | 2.3Comment: Testing | 1.7 - 2.4 mg/dL | [facility] | | | | performed at [facility];[address] | | LABORATORY | | | | [address];[place] | | | | | | [id number] | | | | + + + + + + + + | Specimen | + + | Blood | + + + + + + + | Performing | Address | City/State/Zipcode | Phone Number | | Organization | | | | + + + + + | [facility]LY [facility] | [address] | [place] [address] | [phone] | + + + + + CBC [...] | | | Absolute | performed at [facility];[address] | [address]/uL | LABORATORY | | | | [address];[place] | | | | | | [address] | | | | + + + + + + + + | Specimen | + + | Blood | + + + + + + + | Performing | Address | City/State/Zipcode | Phone Number | | Organization | | | | + + + + + | [facility] | [address] | [place] [address] | [phone] | + + + + + Basic [...] 7.8 (L) | 8.5 - 10.5 | [facility] | | | | | mg/dL | LABORATORY | | + + + + + + | Estimated | >60Comment: GFR <60: | >60 | [facility] | | | GFR | CHRONIC KIDNEY [...] | | | | | | MDRD [facility] traceable | | | | | | equation.Testing | | | | | | performed at [facility] | | | | | | [facility] [place], [place] | | | | | | [address] | | | | + + + + + + + + | Specimen | + + | Blood | + + + + + + + | Performing | Address | City/State/Zipcode | Phone Number | | Organization | | | | + + + + + | [facility] | [address] | [place] [address] | [phone] | + + + + + POC [...] | | | POC | performed at [facility];[address] | | LABORATORY | | | | [address];[place] | | | | | | [address] | | | | + + + + + + + + | Specimen | + + | | + + + + + + + | Performing | Address | City/State/Zipcode | Phone Number | | Organization | | | | + + + + + | [facility] | [address] | [place] [address] | [phone] | + + + + + POC Glucose (12/25/2019 5:06 PM PDT) + + + + + + | Component | Value | Ref Range | Performed | Pathologist | | | | | At | Signature | + + + + + + | Glucose, | 126 (H)Comment: Testing | 65 - 99 mg/dL | [facility] | | | POC | performed at [facility];[address] | | LABORATORY | | | | [address];[place] | | | | | | [address] | | | | + + + + + + + + | Specimen | + + | | + + + + + + + | Performing | Address | City/State/Zipcode | Phone Number | | Organization | | | | + + + + + | [facility] | [address] | [place] [address] | [phone] | + + + + + EEG (12/25/2019 3:04 PM PDT) + + + | Narrative | Performed At | + + + | Josh Montoya, Neurodiagnostic Tech 12/25/2019 3:04 PM | | | [facility] [address] | | | [place] [address] Patient: Reilly Hamm ID: | | | [id number] : 1950 Age: 69 Gender: male Room #: 79579 | | | Physician: Luis E Malcolm Manager Organizational: Josh Montoya | | | Ref. Physician: [...] | | | POC | performed at [facility] | | LABORATORY | | | | [address];[place], [place] | | | | | | [address] | | | | + + + + + + + + | Specimen | + + | | + + + + + + + | Performing | Address | City/State/Zipcode | Phone Number | | Organization | | | | + + + + + | [facility] | [address] | [place] [address] | [phone] | + + + + + POC Glucose (12/25/2019 12:31 PM PDT) + + + + + + | Component | Value | Ref Range | Performed | Pathologist | | | | | At | Signature | + + + + + + | Glucose, | 105 (H)Comment: Testing | 65 - 99 mg/dL | [facility] | | | POC | performed at [facility];[address] | | LABORATORY | | | | [address];[place], [place] | | | | | | [address] | | | | + + + + + + + + | Specimen | + + | | + + + + + + + | Performing | Address | City/State/Zipcode | Phone Number | | Organization | | | | + + + + + | [facility] | [address] | [place] [address] | [phone] | + + + + + Potassium (12/25/2019 12:31 PM PDT) + + + + + + | Component | Value | Ref Range | Performed | Pathologist | | | | | At | Signature | + + + + + + | K | 3.9Comment: Testing | 3.5 - 4.9 | [facility] | | | | performed at [facility];888 | mmol/L | LABORATORY | | | | [address];[place] | | | | | | [address] | | | | + + + + + + + + | Specimen | + + | Blood | + + + + + + + | Performing | Address | City/State/Zipcode | Phone Number | | Organization | | | | + + + + + | [facility] | [address] | [place] [address] | [phone] | + + + + + POC Glucose (12/25/2019 10:39 AM PDT) + + + + + + | Component | Value | Ref Range | Performed | Pathologist | | | | | At | Signature | + + + + + + | Glucose, | 104 (H)Comment: Testing | 65 - 99 mg/dL | [facility] | | | POC | performed at [facility];[address] | | LABORATORY | | | | [address];[place] | | | | | | [address] | | | | + + + + + + + + | Specimen | + + | | + + + + + + + | Performing | Address | City/State/Zipcode | Phone Number | | Organization | | | | + + + + + | [facility] | [address] | [place] [address] | [phone] | + + + + + POC Glucose (12/25/2019 8:31 AM PDT) + + + + + + | Component | Value | Ref Range | Performed | Pathologist | | | | | At | Signature | + + + + + + | Glucose, | 106 (H)Comment: Testing | 65 - 99 mg/dL | [facility] | | | POC | performed at [facility];888 | | LABORATORY | | | | [address];[place] | | | | | | [address] | | | | + + + + + + + + | Specimen | + + | | + + + + + + + | Performing | Address | City/State/Zipcode | Phone Number | | Organization | | | | + + + + + | [facility] | [address] | [place] [address] | [phone] | + + + + + Potassium (12/25/2019 7:49 AM PDT) + + + + + + | Component | Value | Ref Range | Performed | Pathologist | | | | | At | Signature | + + + + + + | K | 4.0Comment: Testing | 3.5 - 4.9 | [facility] | | | | performed at [facility];888 | mmol/L | LABORATORY | | | | [address] [facility];[place], [place] | | | | | | [address] | | | | + + + + + + + + | Specimen | + + | Blood | + + + + + + + | Performing | Address | City/State/Zipcode | Phone Number | | Organization | | | | + + + + + | [facility] | [address] | [place] [address] | [phone] | + + + + + POC Glucose (12/25/2019 7:35 AM PDT) + + + + + + | Component | Value | Ref Range | Performed | Pathologist | | | | | At | Signature | + + + + + + | Glucose, | 105 (H)Comment: Testing | 65 - 99 mg/dL | [facility] | | | POC | performed at [facility];[address] | | LABORATORY | | | | [address];[place] | | | | | | [address] | | | | + + + + + + + + | Specimen | + + | | + + + + + + + | Performing | Address | City/State/Zipcode | Phone Number | | Organization | | | | + + + + + | [facility] | [address] | [place] [address] | [phone] | + + + + + POC Glucose (12/25/2019 6:05 AM PDT) + + + + + + | Component | Value | Ref Range | Performed | Pathologist | | | | | At | Signature | + + + + + + | Glucose, | 103 (H)Comment: Testing | 65 - 99 mg/dL | [facility] | | | POC | performed at [facility];888 | | LABORATORY | | | | [address];[place] | | | | | | [address] | | | | + + + + + + + + | Specimen | + + | | + + + + + + + | Performing | Address | City/State/Zipcode | Phone Number | | Organization | | | | + + + + + | [facility] | [address] | [place] [address] | [phone] | + + + + + XR [...] | | | Final Report Signed by: UriFernando Richard Sign Date/Time: | | | 12/25/2019 6:09 AM | | + + + + + | Procedure Note | + + | Juan, [id number] - 12/25/2019 6:12 AM PDT | | [...] | | | POC | performed at [facility];[address] | | LABORATORY | | | | [address];[place] | | | | | | [address] | | | | + + + + + + + + | Specimen | + + | | + + + + + + + | Performing | Address | City/State/Zipcode | Phone Number | | Organization | | | | + + + + + | [facility] | [address] [facility] [address] | [place] [address] | [phone] | + + + + + Magnesium (12/25/2019 4:18 AM PDT) + + + + + + | Component | Value | Ref Range | Performed | Pathologist | | | | | At | Signature | + + + + + + | Magnesium | 2.6 (H)Comment: Testing | 1.7 - 2.4 mg/dL | [facility] | | | | performed at [facility];[address] | | LABORATORY | | | | [address];[place], [place] | | | | | | [address] | | | | + + + + + + + + | Specimen | + + | Blood | + + + + + + + | Performing | Address | City/State/Zipcode | Phone Number | | Organization | | | | + + + + + | [facility] | [address] | [place] [address] | [phone] | + + + + + CBC [...] | | | Absolute | performed at [facility];888 | K/uL | LABORATORY | | | | [address];[place], [place] | | | | | | [address] | | | | + + + + + + + + | Specimen | + + | Blood | + + + + + + + | Performing | Address | City/State/Zipcode | Phone Number | | Organization | | | | + + + + + | [facility] | [address] [facility] [address] | [place] [address] | [phone] | + + + + + Basic [...] | | | | | performed at [facility];[address] | | | | | | [facility];[place], [place] | | | | | | [address] | | | | + + + + + + + + | Specimen | + + | Blood | + + + + + + + | Performing | Address | City/State/Zipcode | Phone Number | | Organization | | | | + + + + + | [facility] | [address] | [place] [address] | [phone] | + + + + + POC Glucose (12/25/2019 4:09 AM PDT) + + + + + + | Component | Value | Ref Range | Performed | Pathologist | | | | | At | Signature | + + + + + + | Glucose, | 100 (H)Comment: Testing | 65 - 99 mg/dL | [facility] | | | POC | performed at [facility];888 | | LABORATORY | | | | [address];[place] | | | | | | [address] | | | | + + + + + + + + | Specimen | + + | | + + + + + + + | Performing | Address | City/State/Zipcode | Phone Number | | Organization | | | | + + + + + | [facility] | [address] | [place] [address] | [phone] | + + + + + POC Glucose (12/25/2019 3:07 AM PDT) + + + + + + | Component | Value | Ref Range | Performed | Pathologist | | | | | At | Signature | + + + + + + | Glucose, | 98Comment: Testing | 65 - 99 mg/dL | [facility] | | | POC | performed at [facility];[address] | | LABORATORY | | | | [address];[place], [place] | | | | | | [address] | | | | + + + + + + + + | Specimen | + + | | + + + + + + + | Performing | Address | City/State/Zipcode | Phone Number | | Organization | | | | + + + + + | [facility] | [address] | [place] [address] | [phone] | + + + + + POC Glucose (12/25/2019 1:56 AM PDT) + + + + + + | Component | Value | Ref Range | Performed | Pathologist | | | | | At | Signature | + + + + + + | Glucose, | 99Comment: Testing | 65 - 99 mg/dL | [facility] | | | POC | performed at [facility];[address] | | LABORATORY | | | | [address];[place] | | | | | | [address] | | | | + + + + + + + + | Specimen | + + | | + + + + + + + | Performing | Address | City/State/Zipcode | Phone Number | | Organization | | | | + + + + + | [facility] | [address] | [place] [address] | [phone] | + + + + + Potassium (12/24/2019 11:55 PM PDT) + + + + + + | Component | Value | Ref Range | Performed | Pathologist | | | | | At | Signature | + + + + + + | K | 4.2Comment: Testing | 3.5 - 4.9 | [facility] | | | | performed at [facility];888 | mmol/L | LABORATORY | | | | [address];[place] | | | | | | [address] | | | | + + + + + + + + | Specimen | + + | Blood | + + + + + + + | Performing | Address | City/State/Zipcode | Phone Number | | Organization | | | | + + + + + | [facility] | [address] | [place] [address] | [phone] | + + + + + POC [...] | | | POC | performed at [facility];888 | | LABORATORY | | | | [address];[place] | | | | | | [address] | | | | + + + + + + + + | Specimen | + + | | + + + + + + + | Performing | Address | City/State/Zipcode | Phone Number | | Organization | | | | + + + + + | [facility] | [address] | [place] [address] | [phone] | + + + + + POC [...] | | | POC | performed at [facility];[address] | | LABORATORY | | | | [address];[place], [place] | | | | | | [address] | | | | + + + + + + + + | Specimen | + + | | + + + + + + + | Performing | Address | City/State/Zipcode | Phone Number | | Organization | | | | + + + + + | [facility] | [address] | [place] [address] | [phone] | + + + + + CT [...] Final Report Signed by: Terri | | Prosper Steen M.D. Date/Time: 12/25/2019 2:07 AM | | + [...] Procedure Note | + + | Juan, [id number] - 12/25/2019 2:10 AM PDT | | [...] | | | POC | performed at [facility];[address] | | LABORATORY | | | | [address];[place], [place] | | | | | | [address] | | | | + + + + + + + + | Specimen | + + | | + + + + + + + | Performing | Address | City/State/Zipcode | Phone Number | | Organization | | | | + + + + + | [facility] | [address] | [place] [address] | [phone] | + + + + + Potassium (12/24/2019 7:59 PM PDT) + + + + + + | Component | Value | Ref Range | Performed | Pathologist | | | | | At | Signature | + + + + + + | K | 4.5Comment: Testing | 3.5 - 4.9 | [facility] | | | | performed at [facility];888 | mmol/L | LABORATORY | | | | [address];[place] | | | | | | [address] | | | | + + + + + + + + | Specimen | + + | Blood | + + + + + + + | Performing | Address | City/State/Zipcode | Phone Number | | Organization | | | | + + + + + | [facility] | [address] | [place] [address] | [phone] | + + + + + POC [...] | | | POC | performed at [facility];888 | | LABORATORY | | | | [address];[place], [place] | | | | | | [address] | | | | + + + + + + + + | Specimen | + + | | + + + + + + + | Performing | Address | City/State/Zipcode | Phone Number | | Organization | | | | + + + + + | [facility] | [address] | [place] [address] | [phone] | + + + + + POC Glucose (12/24/2019 6:49 PM PDT) + + + + + + | Component | Value | Ref Range | Performed | Pathologist | | | | | At | Signature | + + + + + + | Glucose, | 96Comment: Testing | 65 - 99 mg/dL | [facility] | | | POC | performed at [facility];[address] | | LABORATORY | | | | [address];[place], [place] | | | | | | [address] | | | | + + + + + + + + | Specimen | + + | | + + + + + + + | Performing | Address | City/State/Zipcode | Phone Number | | Organization | | | | + + + + + | [facility] | [address] | [place] [address] | [phone] | + + + + + Blood [...] Testing | 95 - 98 % | [facility] | | | Arterial, | performed at [facility];[address] | | LABORATORY | | | POC | [address];[place] | | | | | | [address] | | | | + + + + + + + + | Specimen | + + | | + + + + + + + | Performing | Address | City/State/Zipcode | Phone Number | | Organization | | | | + + + + + | [facility] | [address] | [place] [address] | [phone] | + + + + + POC Glucose (12/24/2019 5:54 PM PDT) + + + + + + | Component | Value | Ref Range | Performed | Pathologist | | | | | At | Signature | + + + + + + | Glucose, | 99Comment: Testing | 65 - 99 mg/dL | [facility] | | | POC | performed at [facility];[address] | | LABORATORY | | | | [address];[place] | | | | | | [address] | | | | + + + + + + + + | Specimen | + + | | + + + + + + + | Performing | Address | City/State/Zipcode | Phone Number | | Organization | | | | + + + + + | [facility] | [address] | [place] [address] | [phone] | + + + + + POC Glucose (12/24/2019 5:03 PM PDT) + + + + + + | Component | Value | Ref Range | Performed | Pathologist | | | | | At | Signature | + + + + + + | Glucose, | 119 (H)Comment: Testing | 65 - 99 mg/dL | [facility] | | | POC | performed at [facility];[address] | | LABORATORY | | | | [address];[place] | | | | | | [address] | | | | + + + + + + + + | Specimen | + + | | + + + + + + + | Performing | Address | City/State/Zipcode | Phone Number | | Organization | | | | + + + + + | [facility] | [address] | [place] [address] | [phone] | + + + + + Potassium (12/24/2019 3:57 PM PDT) + + + + + + | Component | Value | Ref Range | Performed | Pathologist | | | | | At | Signature | + + + + + + | K | 4.3Comment: Testing | 3.5 - 4.9 | [facility] | | | | performed at [facility];888 | mmol/L | LABORATORY | | | | [address];[place], [place] | | | | | | [address] | | | | + + + + + + + + | Specimen | + + | Blood | + + + + + + + | Performing | Address | City/State/Zipcode | Phone Number | | Organization | | | | + + + + + | [facility] | [address] | [place] [address] | [phone] | + + + + + POC [...] | | | POC | performed at [facility];888 | | LABORATORY | | | | [address];[place], [place] | | | | | | [address] | | | | + + + + + + + + | Specimen | + + | | + + + + + + + | Performing | Address | City/State/Zipcode | Phone Number | | Organization | | | | + + + + + | [facility] | [address] | [place] [address] | [phone] | + + + + + Activated clotting time (12/24/2019 3:26 PM PDT) + + + + + + | Component | Value | Ref Range | Performed | Pathologist | | | | | At | Signature | + + + + + + | Activated | 257 (H)Comment: Testing | 74 - 137 | [facility] | | | Clotting | performed at [facility];888 | seconds | LABORATORY | | | Time, POC | [address];[place] | | | | | | [address] | | | | + + + + + + + + | Specimen | + + | | + + + + + + + | Performing | Address | City/State/Zipcode | Phone Number | | Organization | | | | + + + + + | [facility] | [address] | [place] [address] | [phone] | + + + + + Blood [...] Testing | 95 - 98 % | [facility] | | | Arterial, | performed at [facility];888 | | LABORATORY | | | POC | [address];[place] | | | | | | [address] | | | | + + + + + + + + | Specimen | + + | | + + + + + + + | Performing | Address | City/State/Zipcode | Phone Number | | Organization | | | | + + + + + | [facility] | [address] | [place] [address] | [phone] | + + + + + POC [...] | | | POC | performed at [facility];888 | | LABORATORY | | | | [address];[place], [place] | | | | | | [address] | | | | + + + + + + + + | Specimen | + + | | + + + + + + + | Performing | Address | City/State/Zipcode | Phone Number | | Organization | | | | + + + + + | [facility] | [address] | [place] [address] | [phone] | + + + + + XR [...] Procedure Note | + + | Juan, [id number] - 12/24/2019 1:58 PM PDT | | [...] Testing | 95 - 98 % | [facility] | | | Arterial, | performed at [facility];888 | | LABORATORY | | | POC | [address];[place] | | | | | | [address] | | | | + + + + + + + + | Specimen | + + | | + + + + + + + | Performing | Address | City/State/Zipcode | Phone Number | | Organization | | | | + + + + + | [facility] | [address] | [place] [address] | [phone] | + + + + + POC [...] | | | POC | performed at [facility];888 | | LABORATORY | | | | [address];[place] | | | | | | [address] | | | | + + + + + + + + | Specimen | + + | | + + + + + + + | Performing | Address | City/State/Zipcode | Phone Number | | Organization | | | | + + + + + | [facility] | [address] | [place] [address] | [phone] | + + + + + PTT (12/24/2019 1:28 PM PDT) + + + + + + | Component | Value | Ref Range | Performed | Pathologist | | | | | At | Signature | + + + + + + | PTT | 32Comment: Testing | 23 - 32 seconds | [facility] | | | | performed at [facility];888 | | LABORATORY | | | | [address];[place] | | | | | | [address] | | | | + + + + + + + + | Specimen | + + | Blood | + + + + + + + | Performing | Address | City/State/Zipcode | Phone Number | | Organization | | | | + + + + + | [facility] | [address] | [place] [address] | [phone] | + + + + + Protime INR (12/24/2019 1:28 PM PDT) + + + + + + | Component | Value | Ref Range | Performed | Pathologist | | | | | At | Signature | + + + + + + | INR | 1.3Comment: REFERENCE | | [facility] | | | | RANGE:0.9 - 1.2 [...] | | | | | performed at [facility];[address] | | | | | | [facility] | | | | | | [address] | | | | + + + + + + + + | Specimen | + + | Blood | + + + + + + + | Performing | Address | City/State/Zipcode | Phone Number | | Organization | | | | + + + + + | [facility] | [address] | [place] [address] | [phone] | + + + + + Magnesium (12/24/2019 1:28 PM PDT) + + + + + + | Component | Value | Ref Range | Performed | Pathologist | | | | | At | Signature | + + + + + + | Magnesium | 3.1 (H)Comment: Testing | 1.7 - 2.4 mg/dL | [facility] | | | | performed at [facility];[address] | | LABORATORY | | | | [address];[place], [place] | | | | | | [address] | | | | + + + + + + + + | Specimen | + + | Blood | + + + + + + + | Performing | Address | City/State/Zipcode | Phone Number | | Organization | | | | + + + + + | [facility] | [address] | [place] [address] | [phone] | + + + + + Fibrinogen (12/24/2019 1:28 PM PDT) + + + + + + | Component | Value | Ref Range | Performed | Pathologist | | | | | At | Signature | + + + + + + | Fibrinogen | 292Comment: Testing | 200 - 450 mg/dL | [facility] | | | | performed at [facility];[address] | | LABORATORY | | | | [address];[place], [place] | | | | | | [address] | | | | + + + + + + + + | Specimen | + + | Blood | + + + + + + + | Performing | Address | City/State/Zipcode | Phone Number | | Organization | | | | + + + + + | [facility] | [address] [facility] | [place] [address] | [phone] | + + + + + CBC [...] at | | | | | | [facility];[address] [place] [address] | | | | | | [facility];[place] [address] | | | | + + + + + + + + | Specimen | + + | Blood | + + + + + + + | Performing | Address | City/State/Zipcode | Phone Number | | Organization | | | | + + + + + | [facility] | [address] | [place] [address] | [phone] | + + + + + Basic [...] 7.1 (L) | 8.5 - 10.5 | [facility] | | | | | mg/dL | LABORATORY | | + + + + + + | Estimated | >60Comment: GFR <60: | >60 | [facility] | | | GFR | CHRONIC KIDNEY [...] | | | | | performed at [facility] | | | | | | [facility];[place], [place] | | | | | | [address] | | | | + + + + + + + + | Specimen | + + | Blood | + + + + + + + | Performing | Address | City/State/Zipcode | Phone Number | | Organization | | | | + + + + + | [facility] | [address] | [place] [address] | [phone] | + + + + + ECHO [...] | | | SUSHIL | | | POOL Patient Number [id number] Date of Study | | | 12/24/2019 Visit Number [id number] Referring | | | Physician SAMUEL Gracia | | | Industrial Sociologist Number Date of 1950 | | | Interpreting Nimesh Castillo MD | | | Physician 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 Procedure DateDate: | | | 12/24/2019 Start: 08:34 AM Study Location: ORTechnical Quality: | | | Adequate visualization Patient [...] LAE. At least | | | moderate unalakleet MR with (+)vegetation on P2 scallop. Mild AI. Trace | | | TR. Mild PI. s/p satisfactory 29mm SJM Epic bioprosthetic MVR. | | | Signature [...] | demonstrates lipomatous hypertrophy. (+)small PFO with rkrg-jk-qktvf | | | shunt via CFM. Left [...] Aorta: 2.48 cm | | | Miscellaneous HdtkbricDjry-ut-uqilgtar atherosclerosis of thoracic | | | aorta. [...] Pleura Pleural Effusion Findings | | | Xjjtx-ex-wpxbacrx left pleural effusion noted. Valves Mitral Valve [...] Valve Findings AV annulus = 21mm. Tri-cuspid [place] valve. Mild cusp & | | | [...] | | | |Miscellaneous Findings | | |Itrm-dz-pktwraei atherosclerosis of thoracic aorta. | | | [...] | Pleural Effusion Findings | | | Hosep-eb-izrbnvxb left pleural effusion noted. | | | [...] | | AV annulus = 21mm. Tri-cuspid [place] valve. 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 At | | least moderate [place] MR with (+)vegetation on P2 scallop. Mild AI. Trace | | TR. Mild PI. s/p satisfactory 29mm [facility] Epic bioprosthetic MVR. | | | | [...] lipomatous hypertrophy. | | (+)small PFO with ztoj-ry-dppbw shunt via CFM. | | | | [...] | | | Miscellaneous Findings | | Dnil-xf-zcuaztlj atherosclerosis of thoracic aorta. | | | [...] | | Pleural Effusion Findings | | Opbfp-zh-xkswoxxd left pleural effusion noted. | | | [...] | | AV annulus = 21mm. Tri-cuspid [place] valve. Mild cusp & annular | | [...] Testing | 95 - 98 % | INGA | | | Arterial, | performed at [facility] [place];[address] | | LABORATORY | | | POC | [address];[place] | | | | | | [id number] | | | | + + + + + + + + | Specimen | + + | | + + + + + + + | Performing | Address | City/State/Zipcode | Phone Number | | Organization | | | | + + + + + | [facility] | [address] | [place] [address] | [phone] | + + + + + POC ISTAT, CG8, Arterial (12/24/2019 12:14 PM PDT) + + + + + + | Component | Value | Ref Range | Performed | Pathologist | | | | | At | Signature | + + + + + + | pH, | 7.358 | 7.350 - 7.450 | [facility] | [...] | | | POC | performed at [facility];888 | g/dL | LABORATORY | | | | [address];[place], [place] | | | | | | [address] | | | | + + + + + + + + | Specimen | + + | | + + + + + + + | Performing | Address | City/State/Zipcode | Phone Number | | Organization | | | | + + + + + | [facility] | [address] | [place] [address] | [phone] | + + + + + POC CG 4, ISTAT Arterial (12/24/2019 11:44 AM PDT) + + + + + + | Component | Value | Ref Range | Performed | Pathologist | | | | | At | Signature | + + + + + + | pH, | 7.371Comment: This test | 7.350 - 7.450 | [facility] | | | Arterial, | was developed [...] | | | Arterial, | performed at [facility];888 | | LABORATORY | | | POC | [facility];[place], [place] | | | | | | [address] | | | | + + + + + + + + | Specimen | + + | | + + + + + + + | Performing | Address | City/State/Zipcode | Phone Number | | Organization | | | | + + + + + | [facility] | [address] | [place] [address] | [phone] | + + + + + POC [...] | | | POC | performed at [facility];888 | g/dL | LABORATORY | | | | [address];[place] | | | | | | [address] | | | | + + + + + + + + | Specimen | + + | | + + + + + + + | Performing | Address | City/State/Zipcode | Phone Number | | Organization | | | | + + + + + | [facility] | [address] | [place] [address] | [phone] | + + + + + SHARITA ABAD Arterial (12/24/2019 11:09 AM PDT) + + [...] | | | POC | performed at [facility];888 | g/dL | LABORATORY | | | | [address];[place] | | | | | | [address] | | | | + + + + + + + + | Specimen | + + | | + + + + + + + | Performing | Address | City/State/Zipcode | Phone Number | | Organization | | | | + + + + + | [facility] | [address] | [place] [address] | [phone] | + + + + + POC [...] | | | Arterial, | performed at [facility];888 | | LABORATORY | | | POC | [address];[place], [place] | | | | | | [address] | | | | + + + + + + + + | Specimen | + + | | + + + + + + + | Performing | Address | City/State/Zipcode | Phone Number | | Organization | | | | + + + + + | [facility] | [address] | [place] [address] | [phone] | + + + + + POC ISTAT, CG8, Arterial (12/24/2019 10:38 AM PDT) + + + + + + | Component | Value | Ref Range | Performed | Pathologist | | | | | At | Signature | + + + + + + | pH, | 7.350 | 7.350 - 7.450 | [facility] | | | Arterial, | | | [...] | | | POC | performed at [facility];888 | g/dL | LABORATORY | | | | [address];[place] | | | | | | [address] | | | | + + + + + + + + | Specimen | + + | | + + + + + + + | Performing | Address | City/State/Zipcode | Phone Number | | Organization | | | | + + + + + | [facility] | [address] | [place] [address] | [phone] | + + + + + Surgical [...] brown-brothers to hemorrhagic area. | | | Rubber Washer sections of each are submitted in cassette [...] | | professional interpretation was performed by [facility], | | | [facility], [address] [facility], [place], [place] (Medical | | | Director: Josh Bob M.D.; IA#: [id number]).The technical | | | component was performed by [facility], [address] [facility], | | | [place] [address] (Commercial Mortgage Broker: Fadumo Triana MD; IA# | | | [id number]). Diagnostician: Josh Bob | | | MDPathologistElectronically Signed 12/25/2019 | | | | | |Diagnostician: Josh Bob MD | | |Pathologist | | |Electronically [...] [facility] | | | | [facility], [address] [facility] | | LABORATORY | | | | [place] | | | | | | [address]Yypebag: Testing | | | | | | performed at [facility], [address] | | | | | | [facility], | | | | | | [place] [address] | | | | + + + + + + + + | Specimen | + + | Tissue - Heart valve | | tissue (specimen) | + + + + + + + | Performing | Address | City/State/Zipcode | Phone Number | | Organization | | | | + + + + + | [facility] | [address] | [place] [address] | [phone] | + + + + + POC ISKYLEIGH, CG8, Arterial (12/24/2019 10:08 AM PDT) + [...] | | | POC | performed at [facility];888 | g/dL | LABORATORY | | | | [address];[place] | | | | | | [address] | | | | + + + + + + + + | Specimen | + + | | + + + + + + + | Performing | Address | City/State/Zipcode | Phone Number | | Organization | | | | + + + + + | [facility] | [address] | [place] [address] | [phone] | + + + + + POC ISTAT, CG8, Venous (12/24/2019 10:04 AM PDT) + + + + + + | Component | Value | Ref Range | Performed | Pathologist | | | | | At | Signature | + + + + + + | pH, Venous, | 7.283 (L) | 7.310 - 7.410 | [facility] | | | POC | [...] | | | POC | performed at [facility];888 | g/dL | LABORATORY | | | | [address];[place] | | | | | | [address] | | | | + + + + + + + + | Specimen | + + | | + + + + + + + | Performing | Address | City/State/Zipcode | Phone Number | | Organization | | | | + + + + + | [facility] | [address] | [place] [address] | [phone] | + + + + + POC ISTAT, CG8, Arterial (12/24/2019 9:39 AM PDT) + + + + + + | Component | Value | Ref Range | Performed | Pathologist | | | | | At | Signature | + + + + + + | pH, | 7.390 | 7.350 - 7.450 | [facility] | | | Arterial, | | | [...] | | | POC | performed at [facility];888 | g/dL | LABORATORY | | | | [address];[place] | | | | | | [address] | | | | + + + + + + + + | Specimen | + + | | + + + + + + + | Performing | Address | City/State/Zipcode | Phone Number | | Organization | | | | + + + + + | [facility] | [address] | [place] [address] | [phone] | + + + + + POC SHARITA PADILLA Arterial (12/24/2019 9:16 AM PDT) + + [...] | | | POC | performed at [facility];888 | g/dL | LABORATORY | | | | [address];[place], [place] | | | | | | [address] | | | | + + + + + + + + | Specimen | + + | | + + + + + + + | Performing | Address | City/State/Zipcode | Phone Number | | Organization | | | | + + + + + | [facility] | [address] | [place] [address] | [phone] | + + + + + POC [...] | | | Arterial, | performed at [facility];888 | | LABORATORY | | | POC | [address];[place] | | | | | | [address] | | | | + + + + + + + + | Specimen | + + | | + + + + + + + | Performing | Address | City/State/Zipcode | Phone Number | | Organization | | | | + + + + + | [facility] | [address] | [place] [address] | [phone] | + + + + + POC ISTAT, CG8, Arterial (12/24/2019 8:34 AM PDT) + + + + + + | Component | Value | Ref Range | Performed | Pathologist | | | | | At | Signature | + + + + + + | pH, | 7.441 | 7.350 - 7.450 | [facility] | [...] | | | POC | performed at [facility];888 | g/dL | LABORATORY | | | | [address];[place], [place] | | | | | | [address] | | | | + + + + + + + + | Specimen | + + | | + + + + + + + | Performing | Address | City/State/Zipcode | Phone Number | | Organization | | | | + + + + + | [facility] | [address] | [place] [address] | [phone] | + + + + + POC Glucose (12/24/2019 7:22 AM PDT) + + + + + + | Component | Value | Ref Range | Performed | Pathologist | | | | | At | Signature | + + + + + + | Glucose, | 119 (H)Comment: Testing | 65 - 99 mg/dL | [facility] | | | POC | performed at [facility];[address] | | LABORATORY | | | | [address];[place] | | | | | | [address] | | | | + + + + + + + + | Specimen | + + | | + + + + + + + | Performing | Address | City/State/Zipcode | Phone Number | | Organization | | | | + + + + + | [facility] | [address] | [place] [address] | [phone] | + + + + + Red [...] [facility] | | | COMMENT | [facility];[address] | | LABORATORY | | | | [address];[place] [address] | | | | + + + + + + + + | Specimen | + + | | + + + + + + + | Performing | Address | City/State/Zipcode | Phone Number | | Organization | | | | + + + + + | [facility] | [address] | [place] [address] | [phone] | + + + + + Coronavirus (COVID-19) NAAT (12/24/2019 6:46 AM PDT) + + + + + + | Component | Value | Ref Range | Performed | Pathologist | | | | | At | Signature | + + + + + + | SARS-CoV-2, | NEGATIVEComment: This | NEG | [facility] | | | NAAT | test was [...] | | | | | performed at [facility];88 | | | | | | [facility];[place], [place] | | | | | | [address] | | | | + + + + + + + + | Specimen | + + | Tissue - Entire | | nasopharynx (body | | structure) | + + + + + + + | Performing | Address | City/State/Zipcode | Phone Number | | Organization | | | | + + + + + | [facility] | [address] | [place] [address] | [phone] | + + + + + Basic [...] 8.4 (L) | 8.5 - 10.5 | [facility] | | | | | mg/dL | LABORATORY | | + + + + + + | Estimated | >60Comment: GFR <60: | >60 | [facility] | | | GFR | CHRONIC KIDNEY [...] | | | | | performed at [facility], [address] | | | | | | [facility], | | | | | | [place] [address] | | | | + + + + + + + + | Specimen | + + | Blood | + + + + + + + | Performing | Address | City/State/Zipcode | Phone Number | | Organization | | | | + + + + + | [facility] | [address] | [place] [address] | [phone] | + + + + + CBC [...] 0.01Comment: Testing | 0.00 - 0.10 | [facility] | | | Absolute | performed at [facility], [address] | K[address]uL | LABORATORY | | | | [address], | | | | | | [place] [address] | | | | + + + + + + + + | Specimen | + + | Blood | + + + + + + + | Performing | Address | City/State/Zipcode | Phone Number | | Organization | | | | + + + + + | [facility] | [address] | [place] [address] | [phone] | + + + + + Urinalysis [...] - 1.030 | [facility] | | | [place], | | | LABORATORY | | | [...] | | | Urine | performed at [facility];888 | | LABORATORY | | | | [address];[place] | | | | | | [address] | | | | + + + + + + + + | Specimen | + + | Urine | + + + + + + + | Performing | Address | City/State/Zipcode | Phone Number | | Organization | | | | + + + + + | [facility] | [address] | [place] [address] | [phone] | + + + + + XR [...] Procedure Note | + + | [place], [id number] - 12/23/2019 10:03 AM PDT | | [...] | | Final Report Signed by: Fernando Bennett, Oswaldo | | Sign Date/Time: 12/23/2019 9:59 AM [...] + + + | BB BAND | [id number] | | [facility] | | | | | | LABORATORY | | + + + + + + | UNIT # | [id number] | | [facility] | | | | [...] + + + | UNIT # | [id number] | | [facility] | | | | [...] + + + | UNIT # | [id number] | | [facility] | | | | [...] + + + | UNIT # | [id number] | | [facility] | | | | [...] | | | RESULT | performed at [facility] | | LABORATORY | | | | [address];[place] | | | | | | [address] | | | | + + + + + + + + | Specimen | + + | Blood | + + + + + + + | Performing | Address | City/State/Zipcode | Phone Number | | Organization | | | | + + + + + | [facility] | [address] | [place] [address] | [phone] | + + + + + Protime INR (12/23/2019 8:40 AM PDT) + + + [...] | | | | | performed at [facility];888 | | | | | | [facility];[place], [place] | | | | | | [address] | | | | + + + + + + + + | Specimen | + + | Blood | + + + + + + + | Performing | Address | City/State/Zipcode | Phone Number | | Organization | | | | + + + + + | [facility] | [address] [facility] | [place] [address] | [phone] | + + + + + Basic [...] | | | | | performed at [facility];888 | | | | | | [address];[place] | | | | | | [address] | | | | + + + + + + + + | Specimen | + + | Blood | + + + + + + + | Performing | Address | City/State/Zipcode | Phone Number | | Organization | | | | + + + + + | [facility] | [address] | [place] [address] | [phone] | + + + + + CBC [...] | | | Absolute | performed at [facility];[address] | K/uL | LABORATORY | | | | [facility];[place], [place] | | | | | | [address] | | | | + + + + + + + + | Specimen | + + | Blood | + + + + + + + | Performing | Address | City/State/Zipcode | Phone Number | | Organization | | | | + + + + + | [facility] | [address] | [place] [address] | [phone] | + + + + + XR [...] Procedure Note | + + | [place], [id number] - 12/22/2019 6:25 PM PDT | | [...] 8.0 (L) | 8.5 - 10.5 | [facility] [...] | | | | | | MDRD IDPA traceable | | | | | | equation.Testing | | | | | | performed at [facility], [address] | | | | | | [facility], | | | | | | [place] [address] | | | | + + + + + + + + | Specimen | + + | Blood | + + + + + + + | Performing | Address | City/State/Zipcode | Phone Number | | Organization | | | | + + + + + | [facility] | [address] | [place] [address] | [phone] | + + + + + CBC [...] | RBC AND PLT MORPHOLOGY | | [facility] | | | Morphology | APPEAR NORMALComment: | | LABORATORY | | | | Testing performed at | | | | | | [facility], [address] [facility] | | | | | | [place] | | | | | | [address] | | | | + + + + + + + + | Specimen | + + | Blood | + + + + + + + | Performing | Address | City/State/Zipcode | Phone Number | | Organization | | | | + + + + + | [facility] | [address] | [place] [address] | [phone] | + + + + + Basic [...] 50 (L)Comment: GFR <60: | >60 | [facility] | [...] | | | | | performed at [facility], [address] | | | | | | [address], | | | | | | [place] [address] | | | | + + + + + + + + | Specimen | + + | Blood | + + + + + + + | Performing | Address | City/State/Zipcode | Phone Number | | Organization | | | | + + + + + | [facility] | [address] | [place] [address] | [phone] | + + + + + CBC [...] Comment | SLIDE SCANNED, AGREES | | [facility] | | | | WITH AUTOMATED | | LABORATORY | | | | RESULTS.Comment: Testing | | | | | | performed at [facility], [address] | | | | | [address], | | | | | | [place] [address] | | | | + + + + + + + + | Specimen | + + | Blood | + + + + + + + | Performing | Address | City/State/Zipcode | Phone Number | | Organization | | | | + + + + + | [facility] | [address] | [place] [address] | [phone] | + + + + + CT [...] Procedure Note | + + | [place], [id number] - 12/20/2019 2:58 PM PDT | | [...] Testing | 65 - 99 mg/dL | [facility] | | | POC | performed at [facility];[address] | | LABORATORY | | | | [address];[place], [place] | | | | | | [address] | | | | + + + + + + + + | Specimen | + + | | + + + + + + + | Performing | Address | City/State/Zipcode | Phone Number | | Organization | | | | + + + + + | [facility] | [address] | [place] [address] | [phone] | + + + + + ECG [...] | | | | JEET TEJEDA MD ([id number]) | | | | | | on [...] | | | Absolute | performed at [facility];[address] | K/uL | LABORATORY | | | | [address];[place], [place] | | | | | | [address] | | | | + + + + + + + + | Specimen | + + | Blood | + + + + + + + | Performing | Address | City/State/Zipcode | Phone Number | | Organization | | | | + + + + + | [facility] | [address] | [place] [address] | [phone] | + + + + + Basic [...] | >60Comment: GFR <60: | >60 | [facility] | | | GFR | CHRONIC KIDNEY [...] | | | | | | MDRD [facility] traceable | | | | | | equation.Testing | | | | | | performed at [facility];[address] | | | | | | [address] [facility];[place], [place] | | | | | | [address] | | | | + + + + + + + + | Specimen | + + | Blood | + + + + + + + | Performing | Address | City/State/Zipcode | Phone Number | | Organization | | | | + + + + + | [facility] | [address] [facility] | [place] [address] | [phone] | + + + + + CV [...] | | Procedures Performed Left heart catheterization (70605.26) with | | | selective bilateral coronary angiography, left ventricular angiograpy. | | | Procedure Summary Access site: right radial artery | | | Anticoagulation: heparin Antiplatelet therapy: aspirin 81 mg | | | Closure: Radial band/closure device Clinical IndicationsThijustine is a 69 | | | y.o. year old male transferred to [facility] from [facility] in | | | [place] due to mitral endocarditis, blood cultures positive [...] (ASD), measuring only 2.5 mm, with minimal jyeb-ad-jzgtc | | | shunting. There is no evidence of jkixq-hu-sosq shunting on the | | | intravenous bubble contrast study. | | |tcuma-mq-rcpn shunting on the intravenous bubble contrast study. [...] [facility] | | | | performed at [facility];[address] | | LABORATORY | | | | [facility];[place], [place] | | | | | | [address] | | | | + + + + + + + + | Specimen | + + | Blood | + + + + + + + | Performing | Address | City/State/Zipcode | Phone Number | | Organization | | | | + + + + + | [facility] | [address] | [place] [address] | [phone] | + + + + + Gentamicin, Trough (12/19/2019 9:37 AM PDT) + + + + + + | Component | Value | Ref Range | Performed | Pathologist | | | | | At | Signature | + + + + + + | GENTAMICIN | 0.6Comment: Testing | <2.0 ug/mL | [facility] | | | TROUGH | performed at [facility];[address] | | LABORATORY | | | | [address];[place], [place] | | | | | | [address] | | | | + + + + + + + + | Specimen | + + | Blood | + + + + + + + | Performing | Address | City/State/Zipcode | Phone Number | | Organization | | | | + + + + + | [facility] | [address] | [place] [address] | [phone] | + + + + + CBC [...] | | | Absolute | performed at [facility];[address] | K/uL | LABORATORY | | | | [facility];[place], [place] | | | | | | [address] | | | | + + + + + + + + | Specimen | + + | Blood | + + + + + + + | Performing | Address | City/State/Zipcode | Phone Number | | Organization | | | | + + + + + | [facility] | [address] | [place] [address] | [phone] | + + + + + Basic [...] | >60Comment: GFR <60: | >60 | [facility] | | | GFR | CHRONIC KIDNEY [...] | | | | | | MDRD IDPA traceable | | | | | | equation.Testing | | | | | | performed at [facility] | | | | | | [facility];[place], [place] | | | | | | [address] | | | | + + + + + + + + | Specimen | + + | Blood | + + + + + + + | Performing | Address | City/State/Zipcode | Phone Number | | Organization | | | | + + + + + | [facility] | [address] | [place] [address] | [phone] | + + + + + MRI [...] 2. 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 [employer] | | | territory including a 1.1 [...] | | | infarcts in the right [employer] territory including an acute 1.1 x 2.6 [...] On the sagittal images this has a pxgkcl-mu-wmbuo | | | appearance, image 17 series [...] Procedure Note | + + | [place], [id number] - 12/18/2019 8:22 PM PDT | | [...] sequence shows multiple infarcts in the right [employer] | | territory including an acute 1.1 [...] On the sagittal images this has a psbarq-fq-elqvj | | appearance, image 17 series 101. [...] 2. 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 including a 1.1 x | | [...] Testing | 30 - 400 ng/mL | [facility] | | | | performed at [email or web address], | | LABORATORY | | | | [address], [address], | | | | | | [place] [address] | | | | + + + + + + + + | Specimen | + + | Blood | + + + + + + + | Performing | Address | City/State/Zipcode | Phone Number | | Organization | | | | + + + + + | [facility] | [address] | [place] [address] | [phone] | + + + + + Iron [...] | | | | | [place] [address] | | | | + + + + + + + + | Specimen | + + | Blood | + + + + + + + | Performing | Address | City/State/Zipcode | Phone Number | | Organization | | | | + + + + + | [facility] | [address] | [place] [address] | [phone] | + + + + + Haptoglobin (12/18/2019 5:52 PM PDT) + + + + + + | Component | Value | Ref Range | Performed | Pathologist | | | | | At | Signature | + + + + + + | Haptoglobin | 281Comment: Testing | 34 - 355 mg/dL | [facility] | | | | performed at [email or web address], | | LABORATORY | | | | [address], [address], | | | | | | [facility] [address] | | | | + + + + + + + + | Specimen | + + | Blood | + + + + + + + | Performing | Address | City/State/Zipcode | Phone Number | | Organization | | | | + + + + + | [facility] | [address] | [place] [address] | [phone] | + + + + + Hemoglobin [...] [facility] | | | | performed at [facility] | | LABORATORY | | | | [facility];[place], [place] | | | | | | [address] | | | | + + + + + + + + | Specimen | + + | Blood | + + + + + + + | Performing | Address | City/State/Zipcode | Phone Number | | Organization | | | | + + + + + | [facility] | [address] | [place] [address] | [phone] | + + + + + Fecal Hemoglobin (12/18/2019 5:30 PM PDT) + + + + + + | Component | Value | Ref Range | Performed | Pathologist | | | | | At | Signature | + + + + + + | FECAL | NEGATIVEComment: Testing | NEG | [facility] | | | OCCULT BLD | performed at [facility];[address] | | LABORATORY | | | | [address];[place] | | | | | | [address] | | | | + + + + + + + + | Specimen | + + | | + + + + + + + | Performing | Address | City/State/Zipcode | Phone Number | | Organization | | | | + + + + + | [facility] | [address] | [place] [address] | [phone] | + + + + + CT [...] Report | | | Signed by: Taz Mai, Reji Sign Date/Time: 12/18/2019 5:57 PM | | [...] Procedure Note | + + | Juan, [id number] - 12/18/2019 6:01 PM PDT | | [...] [facility]- | | | | | | [id number] | | | | | | [facility] | | | | | | [facility] | | | | | | [place] [id number] | | | | + + + [...] | | | | | | [facility] | | | | | | Cristo Cervantes, | | | | | | [place].Testing performed at | | | | | | [facility], [address], | | | | | | [address] | | | | | | [address] | | | | + + + + + + + + | Specimen | + + | | + + + + + + + | Performing | Address | City/State/Zipcode | Phone Number | | Organization | | | | + + + + + | [facility] | [address] | [place] [address] | [phone] | + + + + + TSH, Reflex Free T4 (12/18/2019 11:52 AM PDT) + + + + + + | Component | Value | Ref Range | Performed | Pathologist | | | | | At | Signature | + + + + + + | TSH | 1.380Comment: Testing | 0.450 - 5.100 | [facility] | | | | performed at [facility];[address] | uIU/mL | LABORATORY | | | | [place]it Jin;[place], [place] | | | | | | [address] | | | | + + + + + + + + | Specimen | + + | Blood | + + + + + + + | Performing | Address | City/State/Zipcode | Phone Number | | Organization | | | | + + + + + | [facility] | [address] [facility] | [place] [address] | [phone] | + + + + + Retic Count (12/18/2019 11:52 AM PDT) + + + + + + | Component | Value | Ref Range | Performed | Pathologist | | | | | At | Signature | + + + + + + | % | 4.7 (H)Comment: Testing | 0.4 - 2.7 % | [facility] | | | Reticulocyt | performed at [facility], [address] | | LABORATORY | | | e Count | [address], | | | | | | [place] [address] | | | | + + + + + + + + | Specimen | + + | Blood | + + + + + + + | Performing | Address | City/State/Zipcode | Phone Number | | Organization | | | | + + + + + | [facility] | [address] | [place] [address] | [phone] | + + + + + Lactate Dehydrogenase (12/18/2019 11:52 AM PDT) + + + + + + | Component | Value | Ref Range | Performed | Pathologist | | | | | At | Signature | + + + + + + | LDH TOTAL | 244Comment: Testing | 120 - 246 U/L | [facility] | | | | performed at [facility];[address] | LABORATORY | | | | [address];[place] | | | | | | [address] | | | | + + + + + + + + | Specimen | + + | Blood | + + + + + + + | Performing | Address | City/State/Zipcode | Phone Number | | Organization | | | | + + + + + | [facility] | [address] | [place] [address] | [phone] | + + + + + Red [...] BANK | Testing performed at | | [facility] | | | COMMENT | [facility];[address] [facility] [address] | | LABORATORY | | | | Blvd;[place] [address] | | | | + + + + + + + + | Specimen | + + | | + + + + + + + | Performing | Address | City/State/Zipcode | Phone Number | | Organization | | | | + + + + + | [facility] | [address] | [place] [address] | [phone] | + + + + + Red [...] BANK | Testing performed at | | JEFFERY | | | COMMENT | [facility];[address] [facility] | | LABORATORY | | | | [address];[place] [address] | | | | + + + + + + + + | Specimen | + + | | + + + + + + + | Performing | Address | City/State/Zipcode | Phone Number | | Organization | | | | + + + + + | [facility] | [address] | [place] [address] | [phone] | + + + + + Type [...] + + + | BB BAND | [id number] | | [facility] | | | | | | LABORATORY | | + + + + + + | UNIT # | [id number] | | [facility] | | | | [...] + + + | UNIT # | [id number] | | [facility] | | | | [...] + + + | UNIT # | [id number] | | [facility] | | | | [...] + | CROSSMATCH | COMPATIBLETesting | | [facility] | | | RESULT | performed at [facility];[address] | | LABORATORY | | | | [address];[place], [place] | | | | | | [address] | | | | + + + + + + + + | Specimen | + + | Blood | + + + + + + + | Performing | Address | City/State/Zipcode | Phone Number | | Organization | | | | + + + + + | [facility] | [address] [facility] | [place] [address] | [phone] | + + + + + Protime INR (12/18/2019 5:54 AM PDT) + + + + + + | Component | Value | Ref Range | Performed | Pathologist | | | | | At | Signature | + + + + + + | INR | 1.0Comment: REFERENCE | | [facility] | | | [...] | | | | | performed at [facility] | | | | | | [address] [facility];[place], [place] | | | | | | [address] | | | | + + + + + + + + | Specimen | + + | Blood | + + + + + + + | Performing | Address | City/State/Zipcode | Phone Number | | Organization | | | | + + + + + | [facility] | [address] | [place] [address] | [phone] | + + + + + CBC [...] g/dL | LABORATORY | | | | [address] [address] [id number] VL | | | | | | [...] | 10.0Comment: NO NORMAL | fl | [facility] | | | | RANGE ESTABLISHEDTesting | | LABORATORY | | | | performed at [facility], [address] | | | | | [address], | | | | | | [place] [address] | | | | + + + + + + + + | Specimen | + + | Blood | + + + + + + + | Performing | Address | City/State/Zipcode | Phone Number | | Organization | | | | + + + + + | [facility] | [address] | [place] [address] | [phone] | + + + + + Basic [...] | | | | | performed at [facility], [address] | | | | | | [address], | | | | | | [place] [address] | | | | + + + + + + + + | Specimen | + + | Blood | + + + + + + + | Performing | Address | City/State/Zipcode | Phone Number | | Organization | | | | + + + + + | [facility] | [address] | [place] [address] | [phone] | + + + + + Vancomycin Level (12/18/2019 5:54 AM PDT) + + + + + + | Component | Value | Ref Range | Performed | Pathologist | | | | | At | Signature | + + + + + + | Vancomycin | 11.1Comment: Testing | ug/mL | [facility] | | | Random, | performed at [facility];[address] | | LABORATORY | | | Serum | [address];[place], [place] | | | | | | [address] | | | | + + + + + + + + | Specimen | + + | Blood | + + + + + + + | Performing | Address | City/State/Zipcode | Phone Number | | Organization | | | | + + + + + | [facility] | [address] | [place] [address] | [phone] | + + + + + CBC [...] | | | Absolute | performed at [facility];[address] | [address] | LABORATORY | | | | [address];[place], [place] | | | | | | [address] | | | | + + + + + + + + | Specimen | + + | Blood | + + + + + + + | Performing | Address | City/State/Zipcode | Phone Number | | Organization | | | | + + + + + | [facility] | [address] [facility] | [place] [address] | [phone] | + + + + + XR [...] Report Signed by: | | | Fernando Bennett, Oswaldo Sign Date/Time: 12/17/2019 4:30 PM | | [...] Procedure Note | + + | Juan, [id number] - 12/17/2019 4:34 PM PDT | | [...] | | | | | performed at [facility], [address] | | | | | | [facility], | | | | | | [place] [address] | | | | + + + + + + + + | Specimen | + + | Blood | + + + + + + + | Performing | Address | City/State/Zipcode | Phone Number | | Organization | | | | + + + + + | [facility] | [address] | [place] [address] | [phone] | + + + + + Coronavirus (COVID-19) NAAC[place]enne (12/16/2019 11:14 PM PDT) + + + + + + | Component | Value | Ref Range | Performed | Pathologist | | | | | At | Signature | + + + + + + | SARS-CoV-2, | NEGATIVEComment: This | NEG | [facility] | | | NAAT | test was [...] | | | | | performed at [facility] | | | | | | [address];[place], [place] | | | | | | [address] | | | | + + + + + + + + | Specimen | + + | | + + + + + + + | Performing | Address | City/State/Zipcode | Phone Number | | Organization | | | | + + + + + | [facility] | [address] | [place] [address] | [phone] | + + + + + Culture, [...] Special | Testing performed at | | [facility] | | | Requests | [facility];[address] | | LABORATORY | | | | [address];[place] [address] | | | | + + + + + + | RESULT | NO GROWTH 6 DAYS | | [facility] | | | | | | LABORATORY | | + + + + + + | RESULT | Testing performed at | | [facility] | | | | [facility], [address] [facility] | | LABORATORY | | | | [place] | | | | | | [address]Lgegyzp: Testing | | | | | | performed at [facility], [address] | | | | | | [address] [place] | | | | | | [address] | | | | + + + + + + + + | Specimen | + + | Blood - Peripheral | | blood specimen | | (specimen) | + + + + + + + | Performing | Address | City/State/Zipcode | Phone Number | | Organization | | | | + + + + + | [facility] | [address] | [place] [address] | [phone] | + + + + + Culture, [...] Special | Testing performed at | | [facility] | | | Requests | [facility];[address] | | LABORATORY | | | | [address];[place] [address] | | | | + + + + + + | RESULT | NO GROWTH 6 DAYS | | [facility] | | | | | | LABORATORY | | + + + + + + | RESULT | Testing performed at | | [facility] | | | | [facility], [address] [facility] | | LABORATORY | | | | [place] | | | | | | [address]Dojmpyc: Testing | | | | | | performed at [facility], [address] | | | | | | [address] [place] | | | | | | [address] | | | | + + + + + + + + | Specimen | + + | Blood - Peripheral | | blood specimen | | (specimen) | + + + + + + + | Performing | Address | City/State/Zipcode | Phone Number | | Organization | | | | + + + + + | [facility] | [address] | [place] [address] | [phone] | + + + + + documented in this encounter Visit Diagnoses + + | Diagnosis | + + | Acute bacterial endocarditis Acute and subacute bacterial endocarditis | + + | Endocarditis of mitral valve | + + | Severe mitral regurgitation Mitral valve disorders | + + documented in this encounter [...] | | | DAILY, First dose on 12/29/19 | | AM PDT | | | [...] CONTINUOUS PRN, hypoglycemia, | | | Starting [facility] 12/25/19 at 1512, | | | Start [...] | + +---+ + +-------+ +--------+---+---+ | heparin 1,000 units/mL | Given | 12/19/19 | 2,000 | | | | injection ONCE PRN, Starting Fri | | 20 2:06 | Units | | | | 12/19/19 at 1406, Intra-op | | PM PDT | | | | + +-------+ +--------+---+---+ +---+---+ | | | +---+---+ + +-------+ +--------+---+ + | heparin 5,000 units/mL | Given | 12/29/19 | 5,000 | | Abdomen- | | injection 5,000 Units 5,000 | | 20 8:17 | Units | | LLQ | | Units, Subcutaneous, EVERY 8 | | PM PDT | | | | | HOURS, First dose on Breana 12/25/19 | | | | | | [...] | | | | | | | 2088-6955 Use NIGHT DOSE for | | | | | | | doses scheduled: HS, | | | | | | | Nighttime 1173-1828 If the BG is | | | [...] | | +---+---+ + +-------+ +--------+---+---+ | iohexol (OMNIPAQUE 300) 300 | Given | 12/19/19 | 82 mLs | | | | mg/mL injection ONCE PRN, | | 20 2:21 | | | | | Starting 12/19/19 at 1421, | | PM PDT | | | | | Intra-op | | | | | | + +-------+ +--------+---+---+ +---+---+ | | | +---+---+ + +---------+ [...] | | | | | | | [facility] 12/25/19 at 0500 | | | | [...] +---+---+ | | | +---+---+ + +-------+ +-------+---+ + | lidocaine 1% injection ONCE | Given | 12/19/19 | 5 mLs | | Surgical | | PRN, Starting 12/19/19 at 1358, | | 20 1:58 | | | Site | | Intra-op | | PM PDT | | | | + +-------+ +-------+---+ + +---+---+ | | | +---+---+ + [...] HOUR PRN, Seizures, | | | Starting 12/24/19 at 1641 | | + +---+ | [...] mg | | | | Oral, NIGHTLY PRN, Insomnia, | | 20 9:20 | | | [...] | | +---+---+ + +-------+ +------+---+---+ | midazolam (VERSED) 1 mg/mL | Given | 12/19/19 | 1 mg | | | | injection ONCE PRN, Starting Sun | | 1:59 | | | | | 12/19/19 at 1359, Intra-op | | PM PDT | | | | + +-------+ +------+---+---+ +---+---+ | | | +---+---+ + +-------+ +---------+---+---+ | nitroglycerin injection ONCE | Given | 12/19/19 | 200 mcg | | | | PRN, Starting 12/19/19 at 1406, | | 20 2:06 | | | | | Intra-op | | PM PDT | | | | + +-------+ +---------+---+---+ [...] | | +---+---+ + +-------+ +------+---+---+ | verapamil injection ONCE PRN, | Given | 12/19/19 | 2 mg | | | | Starting Sun12/19/19 at 1406, | | 20 2:06 | | | | | Intra-op | | PM PDT | | | | + +-------+ +------+---+---+ + +---+ | | | + +---+ [...]
--- OUTSIDE RECORDS SUMMARY | ~2020-01-05 | XMS | Encounter Summary ---
Demographics + + + | Address | [address] | | | [place] [address] | + + + | Home Phone | | + + + | Preferred Language | Unknown | + + + | Marital Status | | + + + | Alevism Affiliation | Unknown | + + + | Race | Unknown | + + + | Ethnic Group | Not or | + + + Author + + + | Author | [facility] | | | and [place] | + + + | Organization | [facility] | | | [...] | | | | | [place] [address] | | + + + + + | Alvaro Newton | ECON | Unknown | | + + + + + Care Team Providers + +------+ + | Care Halftone Operator Name | Role | Phone | + [...] | | Endocarditis | | [place] | | | | | of mitral | | [address] Phone: | | | | | valve | | [phone] | | | | | Severe | | Fax: | | | | | mitral | | [phone] | | | | | regurgitatio | | | | | | | n | | | | | | | Procedures | | | | | | | [place] L HRT | | | | | [...] Description | +--------+---------+ + + + | 12/23/ Surgery | [facility] | Reilly Galvan, | MITRAL VALVE | | 2020 | | [facility] | PhD [address] | REPLACEMENT | | | | OPERATING ROOM [address] | [address] | | | | | [address] | [place] [address] | | | | | [place], [place] | [phone] | | | | | [address] | | | | | | [phone] | | | +--------+---------+ + + + [...] + + + | Blood Pressure | 105/68 | 12/24/2019 1:30 PM | | | | | PDT | | + + + + + | Pulse | 80 | 12/24/2019 1:30 PM | | | | | PDT | | + + + + + | Temperature | 35.7 C (96.3 F) | 12/24/2019 1:30 PM | | | | | PDT | | + + + + + | Respiratory Rate | 16 | 12/24/2019 1:30 PM | | | | | PDT | | + + + + + | Oxygen Saturation | 100% | 12/24/2019 1:30 PM | | | | | PDT | | + + + + + | Inhaled Oxygen | - | - | | | Concentration | | | | + + + + + | Weight | 63 kg (138 lb 14.2 | 12/24/2019 3:43 AM | | | | oz) | [...] Reilly Hamm AGE/SEX: 69 y.o. male ROOM: [address] [place] [address] : 1950 PCP: Sheng Combs MD Date/Time:12/31/2019 [...] CV LHC; Surgeon: Jeet Tejeda MD; Location: [facility] CV LAB CARDIAC CATHERIZATION N/A 12/19/2019 Procedure: CV COR ANGIO; Surgeon: Jeet Tejeda MD; Location: [facility] CV LAB CARDIAC CATHERIZATION Left 12/19/2019 Procedure: CV LV; Surgeon: Jeet Tejeda MD; Location: [facility] CV LAB MITRAL VALVE REPLACEMENT N/A 12/24/2019 Procedure: MITRAL VALVE REPLACEMENT; Surgeon: Reilly Galvan MD PhD; Location: [facility] CHRISTI N OR TOOTH EXTRACTION N/A 12/20/2019 Procedure: EXTRACTION TEETH; Surgeon: Job Menjivar DMD; Location: [facility] MAIN OR Allergies Allergen Reactions Canola Oil [...] to start cardiac rehabilitation in accordance with tie binder recommendations. Pt advised not to drive for [...] manage prescriptions until pt has seen seen Printer'S Devil and Primary Care Physician, who will resume [...] Requested: 1 Follow up: Reilly Galvan MD [facility] [address] [place] [facility] [id number] Schedule an appointment as soon as possible for a visit in 2 weeks Post-op Jeet Tejeda MD [address] [place] [facility] [id number] Schedule an appointment as soon as possible for a visit in 2 weeks Post-op Maddi Dwyer MD [address] [facility] [phone] Schedule an appointment as soon as possible for a visit in 2 weeks Post-op Sheng Combs MD [address] [place] [address] You have an upcoming appointment on at [...] 2wks. Our office will call you to [facility] a time. Please call [phone] for questions/concerns Follow up with your Printer'S Devil, Dr. Tejeda, in 2 weeks. Please make an appointment. Follow up with your Infectious Disease, Dr. Dwyer, in 2 weeks. Please make an appoint ment. Follow up with your Primary Care Physician in 3-4 weeks. Please make an appointment. General Instructions Follow the instructions in the the [facility] Cardiac Surgery Navigation Guide. This guide is a n excellent resource for concerns you and your family may have as you heal from surgery. Watch the [facility] Heart Surgery video on YouTube: https://www.youtube.com/watch?v=kMndPmy7JU M The [facility] Cardiothoracic Surgery office will contact you within 72 hours of your hospital discharge. If you do not receive a phone call or have any concerns before then, please call our office Mon-Fri 8:00am-5:00pm at [phone]. Please make sure we have the best [...] mins each). Referred to you by your tie binder. Post-op week 10-12: Sternum is approximately 90-100% [...] Follow the home care instructions in the [facility] Cardiac Surgery Navigation Guide. Please monitor your weight, blood pressure, heart rate and blood glucose daily (diabetics o nly) daily. 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 Ultimately your tie binder or [facility] care physician will determine what medications you should continue after you recover f rom surgery. Only take the medications on your Discharge Medication List when you leave the hospital. Review the list with your nurse prior to leaving the hospital and at the pharmacy when p icking up your medications. Cardiothoracic Surgery will manage prescriptions until you have seen your Printer'S Devil a nd Primary Care Physician, in which they will [...] removed at your follow up visit with [facility] Cardiothoracic Surge ry - no later [...] to the breast bone. Cardiac Rehabilitation: Your [employer]inter'S Devil will refer you to Outpatient Cardiac Rehabilitation. [...] and about 1 hour per visit. Your tie binder will provide you with a r eferral [...] factors as you can. Work with your [facility] care provider to identify your risk factors [...] pharmacist before buying any prescription or ov kh-hyz-zkffgrw medication. Managing Pain After Bypass Surgery Taking [...] strain that is spread mainly from pers pz-zu-zbhnvd through respiratory droplets when an infected person [...] are not available, use an alcohol-based hand office executive with at least 60 % alcohol covering [...] and need to call 911, notify the tool polishing machine operator that you have or think you [...] COVID-19 symptoms, residents in nursing facilities or fci communities or home health, or those who [...] or preparing your food. ? Use hand office executive if soap and water are not available. [...] keyboards, and bedside tables. Let someone else otot n and disinfect surfaces in common areas, but not your bedroom and bathroom. ? Avoid sharing personal household items (dishes, drinking glasses, cups, eating utensils, towels, or bedding) with other people or pets in your home. After using these items, they sh ould be washed thoroughly with soap and water or in the internet network specialist/washer. ? Call ahead before visiting your doctor. [...] local public health website. CDC: COVID-19: https://www.cdc.gov/coronavirus/2019-ncov/index.html [place] Coronavirus Advisory: https://www.[facility].org/ffvndlrc-beg-xoahjpew/coron avirus-advisory Virtual Visits Available https://virtual.[facility].org/ documented in this encounter Medications at Time [...] | 1 | 12/30/19 | | | (VITAMIN C) 500 mg [...] tablet by | 60 | 1 | 20 | | | 325 mg tablet | [...] tablet by | 30 | 0 | 20 | | | (ROXICODONE) 5 mg | [...] pt and destiny luque voiced understanding. Jannette Solis, RN SZShPilar monreal RN - 12/30/2019 12:10 PM PDTProvidence [facility] will provide [facility] therapy starting 12/30 after 0900 dose. glass bender teach today 12/29 at [facility] at 1400 with and daughter. Delivery of medication and supplies to [facility] by 900 12/30 for 2100 dose at home. Patient will need to re ceive his 0900 dose inpatient 12/30 prior to discharge. [facility] for picc line dressing changes, labs as ordered as well as providing nursing suppo rt as needed. Thank you. Pilar Gonzalez RN [phone] CM: patient will need to discharge in the am (its an hour drive) to make it to his 1045 cou madin appt in [place] (per ). Electronically signed by Pilar Gonzalez RN at 2019 12:16 PM Maddi Farah MD - 12/30/2019 8:19 AM PDTFormatting of this note joi ht be different from the original. [facility] Service: Infectious Disease Progress Note Hospital Day: LOS: 15 days Post-Op Day: 7 Days Post-Op SUBJECTIVE Patient Summary: RE: Endocarditis Chart reviewed. From Dr. Tejeda's note: 69 y.o. male transferred from 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 He [facility] 10[facility]31[facility]2019 with those complaints.Laborato ry [...] and was discharged. He then presented to [facility] 12/15/2019 with altered mental status and fever to 104F.He was found to have multiple laboratory abnormalities includingelevated white blood cell countwith bandemia, anemia with hemoglobin 8.3 (was 1 1.7on 10/31/19), lactic acidosis, blood cultures [id number] withgram-positive cocci in chains, identified as S. [...] demonstratedNSR with a rate of 97, short KS andPACs .A repeat echo at [facility] showed preserved LV systolic function with a largemobilevegeta tion attached to the posterior leaflet of the mitral valve with severe eccentric anterior MR .There isalso a small ASD with mild uhrv-ho-sqkww atrial shunting, as well as mild TR [...] Brain CT kyra wed no new changes. 8/15: PICC placed, R IJ central line d/c'd [...] 7.341* 7.382 7.330* PO2ART 160* 153* 230* [id number] 40 33* 43 [id number] 99* 99* 100* Recent Labs Lab 12/30/19 [...] seizure activity High-dose twice daily ceftriaxone for FISH BAIT PICKER coverage as outlined above Case Management consulted [...] note might be different [facility] Surgery Progress Note ROOM: [address] [place] [address] Hospital Day: LOS: 14 days Post-Op Day: [...] 7.341* 7.382 7.330* PO2ART 160* 153* 230* [id number] 40 33* 43 [id number] 99* 99* 100* Recent Labs Lab 12/30/19 [...] Status: Full Code LEA Cavanaugh 12/30/2019 Sheila Nciholson M A, CCC-ELIGIBILITY WORKER - 12/29/2019 2:53 PM PDTMISSED THERAPY VISIT Speech Therapy attempted to see the following patient today: Reilly Hamm Missed Visit (patient unavailable) - working with OT. SHEILA PILLAI MA, CCC-ELIGIBILITY WORKER 12/29/2019 Pilar Champagne RN - 12/29/2019 2:34 PM PDTProvidence Infusion received referral for home ARSH. W ill investigate benefits. Thank you. Pilar Gonzalez RN [phone] 1640: [facility] Liaison spoke with patient's , she [...] might be differe nt from the original. [facility] Service: Infectious Disease Progress Note Hospital Day: LOS: 13 days Post-Op Day: 5 Days Post-Op SUBJECTIVE Patient Summary: RE: Endocarditis Chart reviewed. From Dr. Tejeda's note: 69 y.o. male transferred from 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 He [facility] 10[facility]31[facility]2019 with those complaints.Laborato ry [...] and was discharged. He then presented to [facility] 12/15/2019 with altered mental status and fever to 104F.He was found to have multiple laboratory abnormalities includingelevated white blood cell countwith bandemia, anemia with hemoglobin 8.3 (was 1 1.7on 10/31/19), lactic acidosis, blood cultures [id number] withgram-positive cocci in chains, identified as S. [...] demonstratedNSR with a rate of 97, short KS andPACs .A repeat echo at [facility] showed preserved LV systolic function with a largemobilevegeta tion attached to the posterior leaflet of the mitral valve with severe eccentric anterior MR .There isalso a small ASD with mild hwrk-ad-oimam atrial shunting, as well as mild TR [...] seizure activity High-dose twice daily ceftriaxone for FISH BAIT PICKER coverage as outlined above Case discussed with case management Code Status: Full Code Maddi Dwyer MD 12/29/2019 hika Ernandez PA - 12/29/2019 7:28 AM PDTFormatting of this note might be different from the willie alba [facility] Service: Cardiothoracic Surgery Progress Note ROOM: [facility]/9111-01 Hospital Day: LOS: 13 days Post-Op Day: [...] Labs Lab 12/29/19 0536 12/28/19 0339 12/27/19 035 MG 1.8 2.1 2.2 No results for input(s): AMYLASE in the last 168 hours. Recent Labs Lab 12/24/19 1756 12/24/19 1522 12/24/19 1331 PHART 7.341* 7.382 7.330* PO2ART 160* 153* 230* [id number] 40 33* 43 [id number] 99* 99* 100* Recent Labs Lab 12/29/19 [...] MRI now that pacer wires are removed ([id number]), tolerating diet, no N/V, denies pain, afebrile, [...] PharmD 5:27 PM PDT 12/28/2019 Megan Coelho, LULU - 12/28/2019 11:22 AM PDTFormatting of this [...] dependent edema Digestive System (Mouth to Rectum): ELIGIBILITY WORKER following; BM on 12/26; missing teeth Nerves [...] loss. Recommendations General Diet with consistencies per ELIGIBILITY WORKER recommendations Chocolate Magic Cup BID at snack times Encourage intake of nutrient-dense, protein-rich food choices, as tolerated Consider appetite stimulant, as indicated Monitor diet tolerance, adequacy of intake, weight trend, labs, hydration status, and stool ing patterns. Nutritional Risk and Follow-Up Level of Risk: Moderate-High Required Follow Up: 4 days(; 12/31) Megan Cardona MS-MPH, RDN 12/28/2019 11:22 AM PDT elmer, LEA Daniel - 12/28/2019 7:44 AM PDTFormatting of this note might be different from [place] [facility]: Cardiothoracic Surgery Progress Note ROOM: [address] [place] [address] Hospital Day: LOS: 12 days Post-Op Day: [...] 7.341* 7.382 7.330* PO2ART 160* 153* 230* [id number] 40 33* 43 [id number] 99* 99* 100* Recent Labs Lab 12/24/19 [...] might be differe nt from the original. [facility] Service: Infectious Disease Progress Note Hospital Day: LOS: 12 days Post-Op Day: 4 Days Post-Op SUBJECTIVE Patient Summary: RE: Endocarditis Chart reviewed. From Dr. Tejeda's note: 69 y.o. male transferred from 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 He initiallypresented to [facility] 10/31/2019 with those complaints.Laborato ry [...] and was discharged. He then presented to [facility] 12/15/2019 with altered mental status and fever to 104F.He was found to have multiple laboratory abnormalities includingelevated white blood cell countwith bandemia, anemia with hemoglobin 8.3 (was 1 1.7on 10/31/19), lactic acidosis, blood cultures q2cnbfmtyn withgram-positive cocci in chains, identified as S. [...] demonstratedNSR with a rate of 97, short KS andPACs .A repeat echo at [facility] showed preserved LV systolic function with a largemobilevegeta tion attached to the posterior leaflet of the mitral valve with severe eccentric anterior MR .There isalso a small ASD with mild udrr-be-djjdi atrial shunting, as well as mild TR [...] to the preoperative study, done 12/16/2019 at [facility]. PROBLEM LIST Principal Problem: Status post [...] seizure activity High-dose twice daily ceftriaxone for FISH BAIT PICKER coverage. Code Status: Full Code Maddi Dwyer MD 12/28/2019 amryn Cabrera RN - 12/27/2019 5:27 PM PDTPatient's orientation much improved today. Able to make needs known and is alert and oriented. Occasionally he is impulsive and requires frequent re direction and education on sternal precautions. Parker, LEA Daniel - 12/27/2019 3:10 PM [facility] Interim Note Pt. Name/Age/: Reilly Hamm 69 y.o. 1950 Med. Record Number: [id number] Subjective General: just finished walking w PT. [...] by: LEA Evans 12/27/2019 3:10 PM PDT [facility] Diana Canales PA - 12/27/2019 8:04 AM PDT [facility]: Cardiothoracic Surgery Progress Note ROOM: [address] [place], [place] [id number] Hospital Day: LOS: 11 days Post-Op Day: [...] 7.341* 7.382 7.330* PO2ART 160* 153* 230* [id number] 40 33* 43 [id number] 99* 99* 100* Recent Labs Lab 12/24/19 [...] Farah MD - 12/27/2019 6:10 AM PDT [facility] Service: Infectious Disease Progress Note Hospital Day: LOS: 11 days Post-Op Day: 3 Days Post-Op SUBJECTIVE Patient Summary: RE: Endocarditis Chart reviewed. From Dr. Tejeda's note: 69 y.o. male transferred from 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 He initiallypresented to [facility] 10/31/2019 with those complaints.Laborato ry [...] and was discharged. He then presented to [facility] 12/15/2019 with altered mental status and fever to 104F.He was found to have multiple laboratory abnormalities includingelevated white blood cell countwith bandemia, anemia with hemoglobin 8.3 (was 1 1.7on 10/31/19), lactic acidosis, blood cultures k1ymxmewnp withgram-positive cocci in chains, identified as S. [...] demonstratedNSR with a rate of 97, short KS andPACs .A repeat echo at [facility] showed preserved LV systolic function with a largemobilevegeta tion attached to the posterior leaflet of the mitral valve with severe eccentric anterior MR .There isalso a small ASD with mild tbtv-bc-idzsh atrial shunting, as well as mild TR [...] Premature atrial complexes are no longer Present KS interval has increased Vent. rate has decreased BY 56 BPM T wave inversion now evident in Anterolateral leads Confirmed by EARNESTINE GARZA MD ([id number]) on 12/26/2019 3:17:52 PM POC Glucose Collection [...] to the preoperative study, done 12/16/2019 at [facility]. PROBLEM LIST Principal Problem: Status post [...] seizure activity High-dose twice daily ceftriaxone for FISH BAIT PICKER coverage. 8. Pulmonary edema: Resolved; O2 sats stable in room air Code Status: Full Code Maddi Dwyer MD 12/27/2019 Karina Marcus MD - 12/27/2019 3:27 AM PDTFormatting of this note might be different f rom the original. [facility]: Vocational Rehabilitation Supervisor Progress Note Reilly Hamm 69 y.o. Hospital Day: LOS: 11 days Post-Op Day: 1 Day Post-Op Consulting Physicians Treatment Team: Jeet Tejeda MD; Jef Ryan MD; Maddi Dwyer MD SUBJECTIVE Patient Summary: The patient is a 69 y.o. male with significant past medical history of diabetes mellitus who presented to [facility] 12/14 due to a 4 month history of we akness and 1 month history of fevers. Echocardiogram was perfromed which revealed mitral johnny ve endocarditis with mitral valve regurgitation. He was started on zosyn and cefipime. Blood cultures obtained on admission grew out GPC in chains in 2/2 bottles. He was transferred to [facility] for further management on 12/16 and [...] maintained on 2g ceftriaxo ne Q12 for FISH BAIT PICKER coverage. His carious teeth were removed by [...] Titrate O2 to keep sats >92% GI/NUTRITION: ELIGIBILITY WORKER cleared for pureed diet with 1 DMA [...] Abx per ID. on ceftriaxone 2gm for FISH BAIT PICKER coverage BID until 01/03/20 then change to [...] other procedures. Karina Engle MD 12/27/2019 Aki Reyes, PT, DPT - 12/26/2019 3:22 PM PDTFormatting of this note might be diffe rent from the original. 12/26/19 1522 PT Visit Summary PT Visit Type Missed Visit (patient unavailable) Next Visit Information 12/25, Cardiac/Stroke, 1+1, HPW, mild L sided weakness PT Visit Summary Having ELIGIBILITY WORKER consult Alexi Lerner MD - 12/26/2019 9:16 AM PDTFormatting of this note might be different fro m the original. [facility]: Infectious Diseases Progress Note Hospital [...] Awake, cranial nerves intact. Follows commands. Location: [facility]. LABS: All labs were reviewed. Recent Results [...] Units Date/Time Culture, Tissue, Smear, with Anaerobes [[id number]] Collected: 12/24/19 1020 Order Status: Completed Lab Status: Preliminary result Updated: 12/25/19 1351 Specimen: Tissue from Heart, Valve, Mitral Gram Stain Result NO CELLS OR ORGANISMS SEEN RESULT NO GROWTH AT THIS TIME RESULT Testing performed at [facility], [address] [place] [id number] Comment: Testing performed at [facility], [address] [place] [id number] Coronavirus (COVID-19) NAAT [[id number]] Collected: 12/24/19 0646 Order Status: Completed Lab Status: Final result Updated: 12/24/19 0749 Specimen: Tissue from Nasopharynx SARS-CoV-2, NAAT (COVID-19) NEGATIVE Comment: This test was developed and its performance characteristics determined by [facility]. It has not been cleared or approved by the [place] FDA. This test has been authorized by FDA under an Emergency Use Authorization (EUA). Clinicians should be advised to consider a patients signs, symptoms, history, and results of other diagnostic tests when interpreting results. Testing performed at [facility];[address] [place] [id number] Coronavirus (COVID-19) NAAT [[id number]] Collected: 12/16/19 2314 Order Status: Completed Lab Status: Final result Updated: 12/17/19 0022 SARS-CoV-2, NAAT (COVID-19) NEGATIVE Comment: This test was developed and its performance characteristics determined by [facility]. It has not been cleared or approved by the [place] FDA. This test has been authorized by FDA under an Emergency Use Authorization (EUA). Clinicians should be advised to consider a patients signs, symptoms, history, and results of other diagnostic tests when interpreting results. Testing performed at [facility];[address] [place] [address] Coronavirus (COVID-19) NAAT [[id number]] Collected: 12/16/192135 Order Status: Canceled Lab Status: No result Specimen: Tissue from Nasopharynx Culture, Blood [[id number]] Collected: 12/16/19 192 Order Status: Completed Lab Status: Final result Updated: 12/23/19 0707 Specimen: Peripheral Blood Special Requests RIGHT HAND Special Requests Testing performed at [facility];[address] [place] [address] RESULT NO GROWTH 6 DAYS RESULT Testing performed at [facility], [address] [place] [id number] Comment: Testing performed at [facility], [address] [place] [address] Culture, Blood [[id number]] Collected: 12/16/19 1925 Order Status: Completed Lab Status: Final result Updated: 12/23/19 0707 Specimen: Peripheral Blood Special Requests LEFT HAND Special Requests Testing performed at [facility];[address] [place] [address]67 RESULT NO GROWTH 6 DAYS RESULT Testing performed at [facility], [address] [place] [id number] Comment: Testing performed at [facility], [address] [place] [address] Microbiology Results (72 hrs) Procedure Component Value Units Date/Time Culture, Tissue, Smear, with Anaerobes [[id number]] Collected: 12/24/19 1020 Order Status: Completed Lab Status: Preliminary result Updated: 12/25/19 1351 Specimen: Tissue from Heart, Valve, Mitral Gram Stain Result NO CELLS OR ORGANISMS SEEN RESULT NO GROWTH AT THIS TIME RESULT Testing performed at [facility], [address] [place] [id number] Comment: Testing performed at [facility], [address] [place] [address] Coronavirus (COVID-19) NAAT [[id number]] Collected: 12/24/19 0646 Order Status: Completed Lab Status: Final result Updated: 12/24/19 0749 Specimen: Tissue from Nasopharynx SARS-CoV-2, NAAT (COVID-19) NEGATIVE Comment: This test was developed and its performance characteristics determined by [facility]. It has not been cleared or approved by the [place] FDA. This test has been authorized by FDA under an Emergency Use Authorization (EUA). Clinicians should be advised to consider a patients signs, symptoms, history, and results of other diagnostic tests when interpreting results. Testing performed at [facility];[address] [place] [address] IMAGING: CXR images were reviewed. Images dated [...] of microhemorrhage. 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 8. Pulmonary edema: Responded well to [...] [facility] Note Date of Admission: 12/16/2019 BRIEF CLINICAL HISTORY: 69 y.o. male transferred from [facility] for little shell tribe dari ral valve endocarditis with severe mitral regurgitation and evidence for septic emboli in [facility] spleen, liver, left kidney and brain. He [...] but no lightheadedness/syncope. He initially presented to [facility] 10/31/2019 with those complaints. Laboratory [...] wa s discharged. He then presented to [facility] 12/15/2019 with altered mental stat us and fever to 104F. He was found to have multiple laboratory abnormalities including elev ated white blood cell count with bandemia, anemia with hemoglobin 8.3 (was 11.7 on 10/31/19), lactic acidosis, blood cultures x2 positive with gram-positive cocci in chains, identified as S. mitis. Chest x-ray was normal with the exception of mild cardiomegaly. CT scan of [facility] abdomen pelvis demonstrated low-density lesion in the [...] NSR with a rate of 97, short KS and PACs. A repeat echo at [facility] showed preserved LV systolic function with a large mobile vegetation attached to the posterior siria flet of the mitral valve with severe eccentric anterior MR. There is also a small ASD with mild jxsg-sl-dcgow atrial shunting, as well as mild TR [...] CV LHC; Surgeon: Jeet Tejeda MD; Location: [facility] CV LAB CARDIAC CATHERIZATION N/A 12/19/2019 Procedure: CV COR ANGIO; Surgeon: Jeet Tejeda MD; Location: [facility] CV LAB CARDIAC CATHERIZATION Left 12/19/2019 Procedure: CV LV; Surgeon: Jeet Tejeda MD; Location: [facility] CV LAB MITRAL VALVE REPLACEMENT N/A 12/24/2019 Procedure: MITRAL VALVE REPLACEMENT; Surgeon: Reilly Galvan MD PhD; Location: [facility] CHRISTI N OR TOOTH EXTRACTION N/A 12/20/2019 Procedure: EXTRACTION TEETH; Surgeon: Job Menjivar DMD; Location: [facility] MAIN OR Allergies Allergen Reactions Canola Oil [...] kg/m TELEMETRY: Sinus bradycardia I/O: 2083 / , CT 150 GENERAL: Ill-appearing 69 yo M [...] 2. 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 (10/31/19 - [facility]): EF 55-60%. Impaired relaxation compatible [...] valve replaced ASSESSMENT & PLAN 1. 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 [...] MD PhD - 12/26/2019 7:53 AM PDT [facility]: Cardiothoracic Surgery Progress Note ROOM: [address] [place] [address] Hospital Day: LOS: 10 days Post-Op Day: [...] 7.341* 7.382 7.330* PO2ART 160* 153* 230* [id number] 40 33* 43 [id number] 99* 99* 100* Recent Labs Lab 12/24/19 [...] Galvan MD PhD FACS 12/26/2019 oArsalan ruby, INSPECTOR PRECISION ASSEMBLY - 12/26/2019 7:50 AM PDTFormatting of this note might be different from the [facility]: Vocational Rehabilitation Supervisor Progress Note Reilly Hamm 69 y.o. Hospital Day: LOS: 10 days Post-Op Day: 1 Day Post-Op Consulting Physicians Treatment Team: Alexi Rodarte MD; Jeet Tejeda MD; Jef Ryan MD SUBJECTIVE Patient Summary: The patient is a 69 y.o. male with significant past medical history of diabetes mellitus who presented to [facility] 12/14 due to a 4 month history of we akness and 1 month history of fevers. Echocardiogram was perfromed which revealed mitral johnny ve endocarditis with mitral valve regurgitation. He was started on zosyn and cefipime. Blood cultures obtained on admission grew out GPC in chains in 2/2 bottles. He was transferred to [facility] for further management on 12/16 and [...] maintained on 2g ceftriaxo ne Q12 for FISH BAIT PICKER coverage. His carious teeth were removed by [...] postoperatively with resulting postictal state - daina villaneuva due to septic emboli. ? On Keppra [...] to keep sats >92% GI/NUTRITION: NPO until ELIGIBILITY WORKER swallow evaluation completed RENAL/LYTES: DUNIA - Likely [...] ID. 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 Source of Infection: endocarditis and bacteremia [...] think he will need a swallow eval. 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 Benton Martinez ARNP - 12/25/2019 12:51 PM PDTFormatting of this note might be different from the willie smith. [facility]: Vocational Rehabilitation Supervisor Progress Note Reilly Hamm 69 y.o. Hospital Day: LOS: 9 days Post-Op Day: 1 Day Post-Op Consulting Physicians Treatment Team: Alexi Rodarte MD; Jeet Tejeda MD; Jef Ryan MD SUBJECTIVE Patient Summary: The patient is a 69 y.o. male with significant past medical history of diabetes mellitus who presented to [facility] 12/14 due to a 4 month history of we akness and 1 month history of fevers. Echocardiogram was perfromed which revealed mitral johnny ve endocarditis with mitral valve regurgitation. He was started on zosyn and cefipime. Blood cultures obtained on admission grew out GPC in chains in 2/2 bottles. He was transferred to [facility] for further management on 12/16 and [...] maintained on 2g ceftriaxo ne Q12 for FISH BAIT PICKER coverage. His carious teeth were removed by [...] resolution of seizure activity. Lo aded with Keadrianara, repeat head CT largely unchanged. Events Overnight: [...] asymmetry, mo ving extremities with RUE 4/5 director multimedia strength LUE 3/5 director multimedia strength HEENT: sclerae clear, nonicteric, oral mmm, [...] ID. 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 Source of Infection: endocarditis and bacteremia [...] se, MD - 12/25/2019 10:40 AM PDT [facility]: Infectious Diseases Progress Note Hospital [...] intact. Follows commands. Venous access: CVC. Location: [facility]. LABS: All labs were reviewed. Recent Results [...] Units Date/Time Culture, Tissue, Smear, with Anaerobes [[id number]] Collected: 12/24/19 1020 Order Status: Completed Lab Status: Preliminary result Updated: 12/24/192107 Specimen: Tissue from Heart, Valve, Mitral Gram Stain Result NO CELLS OR ORGANISMS SEEN Gram Stain Result Testing performed at [facility], [address] [place] [id number] RESULT PENDING Comment: Testing performed at [facility], [address] [place] [address] Coronavirus (COVID-19) NAAT [[id number]] Collected: 12/24/19 0646 Order Status: Completed Lab Status: Final result Updated: 12/24/19 0749 Specimen: Tissue from Nasopharynx SARS-CoV-2, NAAT (COVID-19) NEGATIVE Comment: This test was developed and its performance characteristics determined by [facility]. It has not been cleared or approved by the [place] FDA. This test has been authorized by FDA under an Emergency Use Authorization (EUA). Clinicians should be advised to consider a patients signs, symptoms, history, and results of other diagnostic tests when interpreting results. Testing performed at [facility];[address] [place] [address];[place] [address] Coronavirus (COVID-19) NAAT [[id number]] Collected: 12/16/19 2314 Order Status: Completed Lab Status: Final result Updated: 12/17/19 0022 SARS-CoV-2, NAAT (COVID-19) NEGATIVE Comment: This test was developed and its performance characteristics determined by [facility]. It has not been cleared or approved by the [place] FDA. This test has been authorized by FDA under an Emergency Use Authorization (EUA). Clinicians should be advised to consider a patients signs, symptoms, history, and results of other diagnostic tests when interpreting results. Testing performed at [facility];[address] [place] [address] Coronavirus (COVID-19) NAAT [[id number]] Collected: 12/16/192135 Order Status: Canceled Lab Status: No result Specimen: Tissue from Nasopharynx Culture, Blood [[id number]] Collected: 12/16/191924 Order Status: Completed Lab Status: Final result Updated: 12/23/19706 Specimen: Peripheral Blood Special Requests RIGHT HAND Special Requests Testing performed at [facility];[address] [place] [address] RESULT NO GROWTH 6 DAYS RESULT Testing performed at [facility], [address] [place] [phone] Comment: Testing performed at [facility], [address] [place] [address] Culture, Blood [[id number]] Collected: 12/16/191924 Order Status: Completed Lab Status: Final result Updated: 12/23/19706 Specimen: Peripheral Blood Special Requests LEFT HAND Special Requests Testing performed at [facility];[address] [place] [address] RESULT NO GROWTH 6 DAYS RESULT Testing performed at [facility], [address] [place] [id number] Comment: Testing performed at [facility], [address] [place] [address] Microbiology Results (72 hrs) Procedure Component Value Units Date/Time Culture, Tissue, Smear, with Anaerobes [[id number]] Collected: 12/24/19 1020 Order Status: Completed Lab Status: Preliminary result Updated: 12/24/192107 Specimen: Tissue from Heart, Valve, Mitral Gram Stain Result NO CELLS OR ORGANISMS SEEN Gram Stain Result Testing performed at [facility], [address] [place] [address] RESULT PENDING Comment: Testing performed at [facility], [address] [place] [address] Coronavirus (COVID-19) NAAT [[id number]] Collected: 12/24/19 0646 Order Status: Completed Lab Status: Final result Updated: 12/24/19 0749 Specimen: Tissue from Nasopharynx SARS-CoV-2, NAAT (COVID-19) NEGATIVE Comment: This test was developed and its performance characteristics determined by [facility]. It has not been cleared or approved by the [place] FDA. This test has been authorized by FDA under an Emergency Use Authorization (EUA). Clinicians should be advised to consider a patients signs, symptoms, history, and results of other diagnostic tests when interpreting results. Testing performed at [facility];[address] [place] [address];[place] [address] IMAGING: CXR images were reviewed. Images dated [...] of microhemorrhage. 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 Timing of cardiothoracic surgery to be determined by CTS specialist in view of stroke. 8. Pulmonary edema: Responded well to lasix. Off oxygen. Breathing better. 9. New problem: Seizure. Recommend brain imaging. Continue current antibiotic regimen. Repeat CBC and CMP in the am. Discussed with attending provider: Reilly Galvan MD PhD . Alexi Noble MD, MPH Infectious Diseases 12/25/19 amont, Sheree Espana MS CCC-ELIGIBILITY WORKER - 12/25/2019 8:00 AM PDTMISSED THERAPY VISIT Speech Therapy attempted to see the following patient today: Reilly Hamm (P) Missed Visit (status changed), Need New Orders Due to transfer to ICU, new orders are needed if speech therapy services are still warrante d at this time. A M Shanika, Jeet Aaron MD - 12/25/2019 7:37 AM PDT [facility]: Cardiology Progress Note Date of Admission: 12/16/2019 BRIEF CLINICAL HISTORY: 69 y.o. male transferred from [facility] for little shell tribe dari ral valve endocarditis with severe mitral [...] but no lightheadedness/syncope. He initially presented to [facility] 10/31/2019 with those complaints. Laboratory [...] wa s discharged. He then presented to [facility] 12/15/2019 with altered mental stat us and [...] NSR with a rate of 97, short KS and PACs. A repeat echo at [facility] showed preserved LV systolic function with a large mobile vegetation attached to the posterior siria flet of the mitral valve with severe eccentric anterior MR. There is also a small ASD with mild mfyz-nt-feqft atrial shunting, as well as mild TR [...] CV LHC; Surgeon: Jeet Tejeda MD; Location: [facility] CV LAB CARDIAC CATHERIZATION N/A 12/19/2019 Procedure: CV COR ANGIO; Surgeon: Jeet Tejeda MD; Location: [facility] CV LAB CARDIAC CATHERIZATION Left 12/19/2019 Procedure: CV LV; Surgeon: Jeet Tejeda MD; Location: [facility] CV LAB TOOTH EXTRACTION N/A 12/20/2019 Procedure: EXTRACTION TEETH; Surgeon: Job Menjivar DMD; Location: [facility] MAIN OR Allergies Allergen Reactions Canola Oil [...] 2. 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 (10/31/19 - [facility]): EF 55-60%. Impaired relaxation compatible [...] valve replaced ASSESSMENT & PLAN 1. 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 [...] MD PhD - 12/25/2019 7:25 AM PDT [facility]: Cardiothoracic Surgery Progress Note ROOM: [id number] Hospital Day: LOS: 9 days Post-Op Day: [...] MD LABS: Recent Labs Lab 12/25/1941712/24/19132712/24/19 1214 12/24/191 12/23/19 0614 WBC 13.20* 41.65* -- -- [...] 7.341* 7.382 7.330* PO2ART 160* 153* 230* UHG3RTR 40 33* 43 [id number] 99* 99* 100* Recent Labs Lab 12/24/19 [...] endocarditis with ext ensive destruction of the little shell tribe mitral valve involving the annulus as well. [...] Marcie Cadet RN - 12/24/2019 6:15 PM PDTWife (Nathalie) updated over phone on events and [...] note might be different from the origin [facility] Service: Infectious Diseases Progress Note Hospital [...] BANK. BLOOD BANK COMMENT Testing performed at [address];[place] [address] POC Glucose Result Value Ref Range Glucose, [...] Units Date/Time Culture, Tissue, Smear, with Anaerobes [[id number]] Collected: 12/24/19 1020 Order Status: Sent Lab Status: In process Updated: 12/24/19 1058 Specimen: Tissue from Heart, Valve, Mitral Coronavirus (COVID-19) NAAT [[id number]] Collected: 12/24/19 0646 Order Status: Completed Lab Status: Final result Updated: 12/24/19 0749 Specimen: Tissue from Nasopharynx SARS-CoV-2, NAAT (COVID-19) NEGATIVE Comment: This test was developed and its performance characteristics determined by [facility]. It has not been cleared or approved by the [place] FDA. This test has been authorized by FDA under an Emergency Use Authorization (EUA). Clinicians should be advised to consider a patients signs, symptoms, history, and results of other diagnostic tests when interpreting results. Testing performed at [facility];[address] [place] [address] Coronavirus (COVID-19) NAAT [[id number]] Collected: 12/16/19 2314 Order Status: Completed Lab Status: Final result Updated: 12/17/19 0022 SARS-CoV-2, NAAT (COVID-19) NEGATIVE Comment: This test was developed and its performance characteristics determined by [facility]. It has not been cleared or approved by the [place] FDA. This test has been authorized by FDA under an Emergency Use Authorization (EUA). Clinicians should be advised to consider a patients signs, symptoms, history, and results of other diagnostic tests when interpreting results. Testing performed at [facility];[address] [place] [address] Coronavirus (COVID-19) NAAT [[id number]] Collected: 12/16/192135 Order Status: Canceled Lab Status: No result Specimen: Tissue from Nasopharynx Culture, Blood [[id number]] Collected: 12/16/191924 Order Status: Completed Lab Status: Final result Updated: 12/23/19706 Specimen: Peripheral Blood Special Requests RIGHT HAND Special Requests Testing performed at [facility];[address] [place] [address] RESULT NO GROWTH 6 DAYS RESULT Testing performed at [facility], [address] [place] [id number] Comment: Testing performed at [facility], [address] [place] [address] Culture, Blood [[id number]] Collected: 12/16/191924 Order Status: Completed Lab Status: Final result Updated: 12/23/19706 Specimen: Peripheral Blood Special Requests LEFT HAND Special Requests Testing performed at [facility];[address] [place] [address] RESULT NO GROWTH 6 DAYS RESULT Testing performed at [facility], [address] [place] [address] Comment: Testing performed at [facility], [address] [place] [address] Microbiology Results (72 hrs) Procedure Component Value Units Date/Time Culture, Tissue, Smear, with Anaerobes [[id number]] Collected: 12/24/19 1020 Order Status: Sent Lab Status: In process Updated: 12/24/19 1058 Specimen: Tissue from Heart, Valve, Mitral Coronavirus (COVID-19) NAAT [[id number]] Collected: 12/24/19 0646 Order Status: Completed Lab Status: Final result Updated: 12/24/19 0749 Specimen: Tissue from Nasopharynx SARS-CoV-2, NAAT (COVID-19) NEGATIVE Comment: This test was developed and its performance characteristics determined by [facility]. It has not been cleared or approved by the [place] FDA. This test has been authorized by FDA under an Emergency Use Authorization (EUA). Clinicians should be advised to consider a patients signs, symptoms, history, and results of other diagnostic tests when interpreting results. Testing performed at [facility];[address] [place] [address];[place] [address] IMAGING: No new images for review today. [...] of microhemorrhage. 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 8. Pulmonary edema: Improved. Patient updated [...] might be different from the willie luis. [facility]: Cardiology Progress Note Date of Admission: 12/16/2019 BRIEF CLINICAL HISTORY: 69 y.o. male transferred from [facility] for little shell tribe dari ral valve endocarditis with severe mitral [...] but no lightheadedness/syncope. He initially presented to [facility] 10/31/2019 with those complaints. Laboratory [...] wa s discharged. He then presented to [facility] 12/15/2019 with altered mental stat us and [...] NSR with a rate of 97, short KS and PACs. A repeat echo at [facility] showed preserved LV systolic function with a large mobile vegetation attached to the posterior siria flet of the mitral valve with severe eccentric anterior MR. There is also a small ASD with mild qqqh-kg-fiovj atrial shunting, as well as mild TR [...] CV LHC; Surgeon: Jeet Tejeda MD; Location: [facility] CV LAB CARDIAC CATHERIZATION N/A 12/19/2019 Procedure: CV COR ANGIO; Surgeon: Jeet Tejeda MD; Location: [facility] CV LAB CARDIAC CATHERIZATION Left 12/19/2019 Procedure: CV LV; Surgeon: Jeet Tejeda MD; Location: [facility] CV LAB TOOTH EXTRACTION N/A 12/20/2019 Procedure: EXTRACTION TEETH; Surgeon: Job Menjivar DMD; Location: [facility] MAIN OR Allergies Allergen Reactions Canola Oil [...] 2. 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 (10/31/19 - [facility]): EF 55-60%. Impaired relaxation compatible [...] kidney injury) ASSESSMENT & PLAN 1. 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 [...] Status: Full Code Sheree Rowan M S CCC-ELIGIBILITY WORKER - 12/24/2019 7:52 AM PDTMISSED THERAPY VISIT [...] better as a result of CP visit. e, Jeet Aaron MD - 12/23/2019 5:42 PM PDTFormatting of this no te might be different from the original. [facility]: Cardiology Progress Note Date of Admission: 12/16/2019 BRIEF CLINICAL HISTORY: 69 y.o. male transferred from [facility] for little shell tribe dari ral valve endocarditis with severe mitral [...] but no lightheadedness/syncope. He initially presented to [facility] 10/31/2019 with those complaints. Laboratory [...] wa s discharged. He then presented to [facility] 12/15/2019 with altered mental stat us and [...] NSR with a rate of 97, short KS and PACs. A repeat echo at [facility] showed preserved LV systolic function with a large mobile vegetation attached to the posterior siria flet of the mitral valve with severe eccentric anterior MR. There is also a small ASD with mild vvcs-dp-aphhi atrial shunting, as well as mild TR [...] CATHERIZATION N/A 12/19/2019 Procedure: CV LHC; Surgeon: eJet Tejeda MD; Location: [facility] CV LAB CARDIAC CATHERIZATION N/A 12/19/2019 Procedure: CV COR ANGIO; Surgeon: Jeet Tejeda MD; Location: [facility] CV LAB CARDIAC CATHERIZATION Left 12/19/2019 Procedure: CV LV; Surgeon: Jeet Tejeda MD; Location: [facility] CV LAB TOOTH EXTRACTION N/A 12/20/2019 Procedure: EXTRACTION TEETH; Surgeon: Job Menjivar DMD; Location: [facility] MAIN OR Allergies Allergen Reactions Canola Oil [...] -- 1.0 BLOOD C&S: + for Step [facility] BRAIN MRI (12/18/19): 1. An 8 x 8 x 11 mm ring enhancing lesion, image 68 series 11, in the right parieto-occipit al junction near the cortical surface. This may represent a septic embolus or simple the enh ancement of a subacute infarct. 2. 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 (10/31/19 - [facility]): EF 55-60%. Impaired relaxation compatible [...] kidney injury) ASSESSMENT & PLAN 1. 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 [...] admission. Code Status: Full Code Oswaldo Bowman Chente garcia - 12/23/2019 3:26 PM PDTSPIRITUAL CARE ASSESSMENT [...] might be different fro m the original. [facility]: Infectious Diseases Progress Note Hospital [...] O POSITIVE Antibody Screen NEGATIVE BB BAND [id number] BB BAND Testing performed at [address];[place] [address] Microbiology Results (Last 14 Days by Collected Date with Culture/Sensitivity) Procedure Component Value Units Date/Time Coronavirus (COVID-19) NAAT [[id number]] Collected: 12/16/19 2314 Order Status: Completed Lab Status: Final result Updated: 12/17/19 0022 SARS-CoV-2, NAAT (COVID-19) NEGATIVE Comment: This test was developed and its performance characteristics determined by [employer]. It has not been cleared or approved by the [place] FDA. This test has been authorized by FDA under an Emergency Use Authorization (EUA). Clinicians should be advised to consider a patients signs, symptoms, history, and results of other diagnostic tests when interpreting results. Testing performed at [facility];[address] [place] [address] Coronavirus (COVID-19) NAAT [[id number]] Collected: 12/16/192135 Order Status: Canceled Lab Status: No result Specimen: Tissue from Nasopharynx Culture, Blood [[id number]] Collected: 12/16/191924 Order Status: Completed Lab Status: Final result Updated: 12/23/1907 Specimen: Peripheral Blood Special Requests RIGHT HAND Special Requests Testing performed at [facility];[address] [place] [address];[place] [address] RESULT NO GROWTH 6 DAYS RESULT Testing performed at [facility], [address] [place] [address] Comment: Testing performed at [facility], [address] [place] [address] Culture, Blood [[id number]] Collected: 12/16/191924 Order Status: Completed Lab Status: Final result Updated: 12/23/1907 Specimen: Peripheral Blood Special Requests LEFT HAND Special Requests Testing performed at [facility];[address] [place] [address] RESULT NO GROWTH 6 DAYS RESULT Testing performed at [facility], [address] [place] [address] Comment: Testing performed at [facility], [address] [place] [address]479 Microbiology Results (72 hrs) No results found [...] of microhemorrhage. 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 Timing of cardiothoracic surgery to be [...] note might be different from [place]. [facility]: Cardiothoracic Surgery Progress Note ROOM: [facility]91- Hospital Day: LOS: 7 days SUBJECTIVE Events [...] Vitals for the past 96 hrs: Weight 08/11/20 0707 64.2 kg (141 lb 8.6 oz) [...] hours. No results for input(s): PHART, PO2ART, XAN8SWV, D1AOXMBD, BEART in the last 168 hours. Recent [...] Mr. Hamm is a 69-year-old gentleman with little shell tribe mitral valve endocarditis with severe dari ral [...] Code Reilly Galvan MD PhD FACS [facility] 12/23/2019 Gareth Villar MD - 12/23/2019 7:58 AM PDTFormatting of this note might be different from the or iginal. [facility]: Hospitalist Progress Note Pt: Reilly Hamm AGE/SEX: 69 y.o. male ROOM: [facility]9107- : 1950 PCP: No Physician on file ADMIT DATE: 12/16/2019 TODAY'S DATE: 12/23/2019 Hospital Day/Hospital Course: LOS: 7 days Mr. Hamm is a 69-year-old male with no significant past medical history who originally pr esented to [facility] on 12/14 with progressive weakness for the last few months an d intermittent fevers for the last 1 month, found to have GPC bacteremia and mitral valve en docarditis, transferred to [facility] on 12/15 for further evaluation. Further [...] Component Value Units Date/Time Coronavirus (COVID-19) NAAT [[id number]] Collected: 12/16/19 2314 Order Status: Completed Lab Status: Final result Updated: 12/17/19 0022 SARS-CoV-2, NAAT (COVID-19) NEGATIVE Comment: This test was developed and its performance characteristics determined by [employer]. It has not been cleared or approved by the [place] FDA. This test has been authorized by FDA under an Emergency Use Authorization (EUA). Clinicians should be advised to consider a patients signs, symptoms, history, and results of other diagnostic tests when interpreting results. Testing performed at [facility];[address] [place] [address];[place] [address] Culture, Blood [[id number]] Collected: 12/16/191924 Order Status: Completed Lab Status: Preliminary result Updated: 12/18/19716 Specimen: Peripheral Blood Special Requests RIGHT HAND Special Requests Testing performed at [facility];[address] [place] [address] RESULT NO GROWTH AT THIS TIME RESULT Testing performed at [facility], [address] [place] [address] Comment: Testing performed at [facility], [address] [place] [address] Culture, Blood [[id number]] Collected: 12/16/191924 Order Status: Completed Lab Status: Preliminary result Updated: 12/18/19716 Specimen: Peripheral Blood Special Requests LEFT HAND Special Requests Testing performed at [facility];[address] [place] [address] RESULT NO GROWTH AT THIS TIME RESULT Testing performed at [facility], [address] [place] [address] Comment: Testing performed at [facility], [address] [place] [address] IMAGING: Reviewed in [facility], no new results. PROBLEM LIST Principal [...] 2. 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 Dictation software, [employer], used which may contain error for similar sounding words even af ter review. Portions of this chart may have been copied from previous notes for continuity of care. Aki Youssef MD 7:58 AM PDT 12/23/2019 Portions of this chart may have been copied from previous notes for continuity of care purp ose dAlisia Curry RN - 12/22/2019 6:[id number] Noble at bedside. Pt appears to [...] Squires MD - 12/22/2019 5:13 PM PDT [facility]: Infectious Diseases Progress Note Hospital [...] Component Value Units Date/Time Coronavirus (COVID-19) NAAT [[id number]] Collected: 12/16/19 2314 Order Status: Completed Lab Status: Final result Updated: 12/17/19 0022 SARS-CoV-2, NAAT (COVID-19) NEGATIVE Comment: This test was developed and its performance characteristics determined by [employer]. It has not been cleared or approved by the [place] FDA. This test has been authorized by FDA under an Emergency Use Authorization (EUA). Clinicians should be advised to consider a patients signs, symptoms, history, and results of other diagnostic tests when interpreting results. Testing performed at [facility];[address] [place] [address] Coronavirus (COVID-19) NAAT [[id number]] Collected: 12/16/192135 Order Status: Canceled Lab Status: No result Specimen: Tissue from Nasopharynx Culture, Blood [[id number]] Collected: 12/16/191924 Order Status: Completed Lab Status: Preliminary result Updated: 12/18/19716 Specimen: Peripheral Blood Special Requests RIGHT HAND Special Requests Testing performed at [facility];[address] [place] [address] RESULT NO GROWTH AT THIS TIME RESULT Testing performed at [facility], [address] [place] [address] Comment: Testing performed at [facility], [address] [place] [address] Culture, Blood [[id number]] Collected: 12/16/191924 Order Status: Completed Lab Status: Preliminary result Updated: 12/18/19716 Specimen: Peripheral Blood Special Requests LEFT HAND Special Requests Testing performed at [facility];[address] [place] [address] RESULT NO GROWTH AT THIS TIME RESULT Testing performed at [facility], [address] [place] [address] Comment: Testing performed at [facility], [address] [place] [address] 35660 Microbiology Results (72 hrs) No results found [...] of microhemorrhage. 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 Timing of cardiothoracic surgery to be [...] appears tired. Digestive System (Mouth to Rectum): ELIGIBILITY WORKER following. Anthropometrics Current Weight: 59.4 kg (130 [...] general diet as ordered with texture/liquids per ELIGIBILITY WORKER. Encourage high protein, nutr ient dense foods [...] Gunter MD - 12/22/2019 10:59 AM PDT [facility]: Hospitalist Progress Note Pt: Reilly Hamm AGE/SEX: 69 y.o. male ROOM: [address] [place] [address] : 1950 PCP: No Physician on file ADMIT DATE: 12/16/2019 TODAY'S DATE: 12/22/2019 Hospital Day/Hospital Course: LOS: 6 days Mr. Hamm is a 69-year-old male with no significant past medical history who originally pr esented to [facility] on 12/14 with progressive weakness for the last few months an d intermittent fevers for the last 1 month, found to have GPC bacteremia and mitral valve en docarditis, transferred to [facility] on 12/15 for further evaluation. Further [...] Component Value Units Date/Time Coronavirus (COVID-19) NAAT [[id number]] Collected: 12/16/19 2314 Order Status: Completed Lab Status: Final result Updated: 12/17/19 0022 SARS-CoV-2, NAAT (COVID-19) NEGATIVE Comment: This test was developed and its performance characteristics determined by [employer]. It has not been cleared or approved by the [place] FDA. This test has been authorized by FDA under an Emergency Use Authorization (EUA). Clinicians should be advised to consider a patients signs, symptoms, history, and results of other diagnostic tests when interpreting results. Testing performed at [facility];[address] [place] [address] Culture, Blood [[id number]] Collected: 12/16/191924 Order Status: Completed Lab Status: Preliminary result Updated: 12/18/19716 Specimen: Peripheral Blood Special Requests RIGHT HAND Special Requests Testing performed at [facility];[address] [place] [address] RESULT NO GROWTH AT THIS TIME RESULT Testing performed at [facility], [address] [place] [address] Comment: Testing performed at [facility], [address] [place] [address] Culture, Blood [[id number]] Collected: 12/16/191924 Order Status: Completed Lab Status: Preliminary result Updated: 12/18/19716 Specimen: Peripheral Blood Special Requests LEFT HAND Special Requests Testing performed at [facility];[address] [place] [address]99[address] RESULT NO GROWTH AT THIS TIME RESULT Testing performed at [facility], [address] [place] [address] Comment: Testing performed at [facility], [address] [place] [address] IMAGING: Reviewed in [facility], no new results. [...] 2. 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 male transferred from [facility] for little shell tribe dari ral valve endocarditis with severe mitral [...] but no lightheadedness/syncope. He initially presented to [facility] 10/31/2019 with those complaints. Laboratory [...] wa s discharged. He then presented to [facility] 12/15/2019 with altered mental stat us and [...] NSR with a rate of 97, short KS and PACs. A repeat echo at [facility] showed preserved LV systolic function with a large mobile vegetation attached to the posterior siria flet of the mitral valve with severe eccentric anterior MR. There is also a small ASD with mild wgte-qe-ygaiz atrial shunting, as well as mild TR [...] CV LHC; Surgeon: Jeet Tejeda MD; Location: [facility] CV LAB CARDIAC CATHERIZATION N/A 12/19/2019 Procedure: CV COR ANGIO; Surgeon: Jeet Tejeda MD; Location: [facility] CV LAB CARDIAC CATHERIZATION Left 12/19/2019 Procedure: CV LV; Surgeon: Jeet Tejeda MD; Location: [facility] CV LAB TOOTH EXTRACTION N/A 12/20/2019 Procedure: EXTRACTION TEETH; Surgeon: Job Menjivar DMD; Location: [facility] MAIN OR Allergies Allergen Reactions Canola Oil [...] 2. 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 (10/31/19 - [facility]): EF 55-60%. Impaired relaxation compatible [...] kidney injury) ASSESSMENT & PLAN 1. 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 Stool was negative for OB. 4. Arrhythmias: PSVT with a prolonged episode Sunday AM, nonsustained VT this AM. Montaño ge Diltiazem to Toprol XL 50 mg daily. 5. Small secundum ASD with a minimal left to right atrial shunt on echocardiogram and ARNOLDO, will be closed at the time of his MVR surgery. 6. Mild TR with pulmonary hypertension by 12/16/19 echocardiogram at [facility], most likely relate d to severe MR. [...] Alisia Bennett RN - 12/21/2019 6:57 PM [id number] Assumed care of pt. Assessment unchange d from am. Pt has decreased appetite only ate a few bites of dinner. Some dried bloody drain age to mouth, no bleeding. Sutures intact. Alisia Bello RN Alexi Squires MD - 12/21/2019 1:11 PM PDT [facility] Service: Infectious Diseases Progress Note [...] Component Value Units Date/Time Coronavirus (COVID-19) NAAT [[id number]] Collected: 12/16/19 6411 Order Status: Completed Lab Status: Final result Updated: 12/17/19 0022 SARS-CoV-2, NAAT (COVID-19) NEGATIVE Comment: This test was developed and its performance characteristics determined by [employer]. It has not been cleared or approved by the [place] FDA. This test has been authorized by FDA under an Emergency Use Authorization (EUA). Clinicians should be advised to consider a patients signs, symptoms, history, and results of other diagnostic tests when interpreting results. Testing performed at [facility];[address] [place] [address]396 Coronavirus (COVID-19) NAAT [[id number]] Collected: 12/16/192135 Order Status: Canceled Lab Status: No result Specimen: Tissue from Nasopharynx Culture, Blood [[id number]] Collected: 12/16/191924 Order Status: Completed Lab Status: Preliminary result Updated: 12/18/19 0717 Specimen: Peripheral Blood Special Requests RIGHT HAND Special Requests Testing performed at [facility];[address] [place] [address] 00607 RESULT NO GROWTH AT THIS TIME RESULT Testing performed at [facility], [address] [place] [address] Comment: Testing performed at [facility], [address] [place] [address]86 Culture, Blood [[id number]] Collected: 12/16/191924 Order Status: Completed Lab Status: Preliminary result Updated: 12/18/19 0717 Specimen: Peripheral Blood Special Requests LEFT HAND Special Requests Testing performed at [facility];[address] [place] [address]113 RESULT NO GROWTH AT THIS TIME RESULT Testing performed at [facility], [address] [place] [address] Comment: Testing performed at [facility], [address] [place] [address] 99492 Microbiology Results (72 hrs) No results found [...] of microhemorrhage. 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 Timing of cardiothoracic surgery to be determined by CTS specialist in view of stroke. Continue current antibiotic regimen. Patient updated on his/her condition today. Postoperative fever and leukocytosis. Monitor fever curve and repeat CBC in the morning. Discussed with attending provider: MD lAexi Jesus MD, MPH Infectious Diseases 12/21/19 ehr, Chevy Aaron MD - 12/21/2019 10:23 AM PDTFormatting of this note might be different from the willie smith. [facility]: Cardiology Progress Note Date of Admission: 12/16/2019 BRIEF CLINICAL HISTORY: 69 y.o. male transferred from [facility] for little shell tribe m itral valve endocarditis with severe mitral [...] no lighthe adedness/syncope. He initially presented to [facility] 10/31/2019 with those complaints. Laboratory [...] wa s discharged. He then presented to [facility] 12/15/2019 with altered mental stat us and [...] R with a rate of 97, short KS and PACs. A repeat echo at [facility] showed preserved LV systolic f unction with [...] EXTRACTION TEETH; Surgeon: Job Menjivar DMD; Location: [facility] MAIN OR Allergies Allergen Reactions Canola Oil [...] 2. 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 (10/31/19 - [facility]): EF 55-60%. Impaired relaxation compatible [...] kidney injury) ASSESSMENT & PLAN 1. 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 [...] MD - 0 12/21/2019 9:53 AM PDT [facility]: Hospitalist Progress Note Pt: Reilly Hamm AGE/SEX: 69 y.o. male ROOM: 9107/9107-01 : 1950 PCP: No Physician on file ADMIT DATE: 12/16/2019 TODAY'S DATE: 12/21/2019 Hospital Day/Hospital Course: LOS: 5 days Mr. Hamm is a 69-year-old male with no significant past medical history who originally pr esented to [facility] on 12/14 with progressive weakness for the last few months an d intermittent fevers for the last 1 month, found to have GPC bacteremia and mitral valve en docarditis, transferred to [facility] on 12/15 for further evaluation. Further [...] Component Value Units Date/Time Coronavirus (COVID-19) NAAT [[id number]] Collected: 12/16/19 2314 Order Status: Completed Lab Status: Final result Updated: 12/17/19 0022 SARS-CoV-2, NAAT (COVID-19) NEGATIVE Comment: This test was developed and its performance characteristics determined by [employer]. It has not been cleared or approved by the [place] FDA. This test has been authorized by FDA under an Emergency Use Authorization (EUA). Clinicians should be advised to consider a patients signs, symptoms, history, and results of other diagnostic tests when interpreting results. Testing performed at [facility];[address] [place] [address]49 Culture, Blood [[id number]] Collected: 12/16/191924 Order Status: Completed Lab Status: Preliminary result Updated: 12/18/19716 Specimen: Peripheral Blood Special Requests RIGHT HAND Special Requests Testing performed at [facility];[address] [place] [address]48 RESULT NO GROWTH AT THIS TIME RESULT Testing performed at [facility], [address] [place] [address] Comment: Testing performed at [facility], [address] [place] [address] 21483 Culture, Blood [[id number]] Collected: 12/16/191924 Order Status: Completed Lab Status: Preliminary result Updated: 12/18/19716 Specimen: Peripheral Blood Special Requests LEFT HAND Special Requests Testing performed at [facility];[address] [place] [address]196 RESULT NO GROWTH AT THIS TIME RESULT Testing performed at [facility], [address] [place] [address] Comment: Testing performed at [facility], [address] [place] [address] 48668 IMAGING: Reviewed in [facility], no new results. PROBLEM LIST Principal [...] 2. 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 Hamm is relatively [...] hours. No results for input(s): PHART, PO2ART, YCO7XNA, G9YJADUT, BEART in the last 168 hours. Recent [...] note might be different from the o alkainal. [facility]: Infectious Diseases Progress Note Hospital [...] ECGs available Confirmed by JEET TEJEDA MD ([id number]) on 12/20/2019 2:45:08 PM Microbiology Results (Last 14 Days by Collected Date with Culture/Sensitivity) Procedure Component Value Units Date/Time Coronavirus (COVID-19) NAAT [[id number]] Collected: 12/16/19 6124 Order Status: Completed Lab Status: Final result Updated: 12/17/19 0022 SARS-CoV-2, NAAT (COVID-19) NEGATIVE Comment: This test was developed and its performance characteristics determined by [employer]. It has not been cleared or approved by the [place] FDA. This test has been authorized by FDA under an Emergency Use Authorization (EUA). Clinicians should be advised to consider a patients signs, symptoms, history, and results of other diagnostic tests when interpreting results. Testing performed at [facility];[address] [place] [address]99 Coronavirus (COVID-19) NAAT [[id number]] Collected: 12/16/192135 Order Status: Canceled Lab Status: No result Specimen: Tissue from Nasopharynx Culture, Blood [[id number]] Collected: 12/16/191924 Order Status: Completed Lab Status: Preliminary result Updated: 12/18/19 0717 Specimen: Peripheral Blood Special Requests RIGHT HAND Special Requests Testing performed at [facility];[address] [place] [address] 56346 RESULT NO GROWTH AT THIS TIME RESULT Testing performed at [facility], [address] [place] [address] Comment: Testing performed at [facility], [address] [place] [address]73 Culture, Blood [[id number]] Collected: 12/16/191924 Order Status: Completed Lab Status: Preliminary result Updated: 12/18/19 0717 Specimen: Peripheral Blood Special Requests LEFT HAND Special Requests Testing performed at [facility];[address] [place] [address]321 RESULT NO GROWTH AT THIS TIME RESULT Testing performed at [facility], [address] [place] [address] Comment: Testing performed at [facility], [address] [place] [address] 86078 Microbiology Results (72 hrs) No results found [...] of microhemorrhage. 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 Timing of cardiothoracic surgery to be determined by CTS specialist in view of stroke. Continue current antibiotic regimen. Patient updated on his/her condition today. Discussed with attending provider: Monty Major MD . lAexi Noble MD, MPH Infectious Diseases 12/20/19 Bree Gunter MD - 12/20/2019 1:31 PM PDTFormatting of this note might be different from the [facility] Service: Hospitalist Progress Note Pt: Reilly Hamm AGE/SEX: 69 y.o. male ROOM: 9107/9107-01 : 1950 PCP: No Physician on file ADMIT DATE: 12/16/2019 TODAY'S DATE: 12/20/2019 Hospital Day/Hospital Course: LOS: 4 days Mr. Hamm is a 69-year-old male with no significant past medical history who originally pr esented to [facility] on 12/14 with progressive weakness for the last few months an d intermittent fevers for the last 1 month, found to have GPC bacteremia and mitral valve en docarditis, transferred to [facility] on 12/15 for further evaluation. Further [...] Component Value Units Date/Time Coronavirus (COVID-19) NAAT [[id number]] Collected: 12/16/19 2314 Order Status: Completed Lab Status: Final result Updated: 12/17/19 0022 SARS-CoV-2, NAAT (COVID-19) NEGATIVE Comment: This test was developed and its performance characteristics determined by [employer]. It has not been cleared or approved by the [place] FDA. This test has been authorized by FDA under an Emergency Use Authorization (EUA). Clinicians should be advised to consider a patients signs, symptoms, history, and results of other diagnostic tests when interpreting results. Testing performed at [facility];[address] [place] [address] 87406 Culture, Blood [[id number]] Collected: 12/16/191924 Order Status: Completed Lab Status: Preliminary result Updated: 12/18/19716 Specimen: Peripheral Blood Special Requests RIGHT HAND Special Requests Testing performed at [facility];[address] [place] [address] 57309 RESULT NO GROWTH AT THIS TIME RESULT Testing performed at [facility], [address] [place] [address] Comment: Testing performed at [facility], [address] [place] [address] 48714 Culture, Blood [[id number]] Collected: 12/16/191924 Order Status: Completed Lab Status: Preliminary result Updated: 12/18/19716 Specimen: Peripheral Blood Special Requests LEFT HAND Special Requests Testing performed at [facility];[address] [place] [address] 37619 RESULT NO GROWTH AT THIS TIME RESULT Testing performed at [facility], [address] [place] [address] 59099 Comment: Testing performed at [facility], [address] [place] [address] 31335 IMAGING: Reviewed in EPIC, no new results. [...] 2. 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 male transferred from [facility] for little shell tribe m itral valve endocarditis with severe mitral [...] no lighthe adedness/syncope. He initially presented to [facility] 10/31/2019 with those complaints. Laboratory [...] wa s discharged. He then presented to [facility] 12/15/2019 with altered mental stat us and [...] R with a rate of 97, short KS and PACs. A repeat echo at [facility] showed preserved LV systolic f unction with [...] th Daily 30 tablet 0 Scheduled Medications [Jul] aspirin 81 mg Oral Daily [Jul] atorvaSTATin 80 mg Oral Nightly [Jul] cefTRIAXone 2 g Intravenous Q12H [JUL Hold] dilTIAZem 120 mg Oral Daily [Jul] heparin 5,000 Units Subcutaneous Q12H [Jul] melatonin [...] 2. 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 ECHOs (12/16/19 - [facility]): 1. EF 65%. 2. Normal RV size [...] No evidence of pericardial effusion. (10/31/19 - [facility]): EF 55-60%. Impaired relaxation compatible [...] mitral valve ASSESSMENT & PLAN 1. 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 [...] Aaron MD - 12/19/2019 10:41 AM PDT [facility]: Cardiology Progress Note Date of Admission: 12/16/2019 BRIEF CLINICAL HISTORY: 69 y.o. male transferred from [facility] for little [place] m itral valve endocarditis with severe mitral [...] no lighthe adedness/syncope. He initially presented to [facility] 10/31/2019 with those complaints. Laboratory [...] wa s discharged. He then presented to [facility] 12/15/2019 with altered mental stat us and [...] R with a rate of 97, short KS and PACs. A repeat echo at [facility] showed preserved LV systolic f unction with [...] 2. 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 (10/31/19 - [facility]): EF 55-60%. Impaired relaxation compatible [...] mitral valve ASSESSMENT & PLAN 1. 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 [...] might be different from the willie luis. [facility]: Infectious Diseases Progress Note Hospital [...] as multiple acute infarcts in the right WEAVER NEEDLE LOOM territory, with num erous areas of microhemorrhage [...] Component Value Units Date/Time Coronavirus (COVID-19) NAAT [[id number]] Collected: 12/16/19 2314 Order Status: Completed Lab Status: Final result Updated: 12/17/19 0022 SARS-CoV-2, NAAT (COVID-19) NEGATIVE Comment: This test was developed and its performance characteristics determined by [employer]. It has not been cleared or approved by the [place] FDA. This test has been authorized by FDA under an Emergency Use Authorization (EUA). Clinicians should be advised to consider a patients signs, symptoms, history, and results of other diagnostic tests when interpreting results. Testing performed at [facility];[address] [place] [address] 70498 Coronavirus (COVID-19) NAAT [[id number]] Collected: 12/16/192135 Order Status: Canceled Lab Status: No result Specimen: Tissue from Nasopharynx Culture, Blood [[id number]] Collected: 12/16/19 192 Order Status: Completed Lab Status: Preliminary result Updated: 12/18/19 0717 Specimen: Peripheral Blood Special Requests RIGHT HAND Special Requests Testing performed at [facility];[address] [place] [address] 08927 RESULT NO GROWTH AT THIS TIME RESULT Testing performed at [facility], [address] [place] [address] Comment: Testing performed at [facility], [address] [place] [address] 82035 Culture, Blood [[id number]] Collected: 12/16/191924 Order Status: Completed Lab Status: Preliminary result Updated: 12/18/19716 Specimen: Peripheral Blood Special Requests LEFT HAND Special Requests Testing performed at [facility];[address] [place] [address] 98376 RESULT NO GROWTH AT THIS TIME RESULT Testing performed at [facility], [address] [place] [address] 09278 Comment: Testing performed at [facility], [address] [place] [address] 57966 Microbiology Results (72 hrs) Procedure Component Value Units Date/Time Coronavirus (COVID-19) NAAT [[id number]] Collected: 12/16/192313 Order Status: Completed Lab Status: Final result Updated: 12/17/192 SARS-CoV-2, NAAT (COVID-19) NEGATIVE Comment: This test was developed and its performance characteristics determined by [employer]. It has not been cleared or approved by the [place] FDA. This test has been authorized by FDA under an Emergency Use Authorization (EUA). Clinicians should be advised to consider a patients signs, symptoms, history, and results of other diagnostic tests when interpreting results. Testing performed at [facility];[address] [place] [address] 95063 Culture, Blood [[id number]] Collected: 12/16/191924 Order Status: Completed Lab Status: Preliminary result Updated: 12/18/19716 Specimen: Peripheral Blood Special Requests RIGHT HAND Special Requests Testing performed at [facility];[address] [place] [address] 64320 RESULT NO GROWTH AT THIS TIME RESULT Testing performed at [facility], [address] [place] [address] 90880 Comment: Testing performed at [facility], [address] [place] [address] 26307 Culture, Blood [[id number]] Collected: 12/16/191924 Order Status: Completed Lab Status: Preliminary result Updated: 12/18/19716 Specimen: Peripheral Blood Special Requests LEFT HAND Special Requests Testing performed at [facility];[address] [place] [address] 43266 RESULT NO GROWTH AT THIS TIME RESULT Testing performed at [facility], [address] [place] [address] Comment: Testing performed at [facility], [address] [place] [address] IMAGING: No new images for review today. [...] of microhemorrhage. 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 Repeat CBC and CMP in the am. Patient updated on his/her condition today. Discussed with attending provider: Monty Major MD . Alexi Noble MD, MPH Infectious Diseases 12/19/19 Bree Gunter MD - 12/19/2019 8:24 AM PDTFormatting of this note might be different from the [facility]: Hospitalist Progress Note Pt: Reilly Hamm AGE/SEX: 69 y.o. male ROOM: [address] [place] [address] : 1950 PCP: No Physician on file ADMIT DATE: 12/16/2019 TODAY'S DATE: 12/19/2019 Hospital Day/Hospital Course: LOS: 3 days Mr. Hamm is a 69-year-old male with no significant past medical history who originally pr esented to [facility] on 12/14 with progressive weakness for the last few months an d intermittent fevers for the last 1 month, found to have GPC bacteremia and mitral valve en docarditis, transferred to [facility] on 12/15 for further evaluation. Further [...] Component Value Units Date/Time Coronavirus (COVID-19) NAAT [[id number]] Collected: 12/16/19 2314 Order Status: Completed Lab Status: Final result Updated: 12/17/19 0022 SARS-CoV-2, NAAT (COVID-19) NEGATIVE Comment: This test was developed and its performance characteristics determined by [facility]. It has not been cleared or approved by the [place] FDA. This test has been authorized by FDA under an Emergency Use Authorization (EUA). Clinicians should be advised to consider a patients signs, symptoms, history, and results of other diagnostic tests when interpreting results. Testing performed at [facility];[address] [place] [address];[place] [address] Culture, Blood [[id number]] Collected: 12/16/19 1925 Order Status: Completed Lab Status: Preliminary result Updated: 12/18/19 0717 Specimen: Peripheral Blood Special Requests RIGHT HAND Special Requests Testing performed at [facility];[address] [place] [address] 57998 RESULT NO GROWTH AT THIS TIME RESULT Testing performed at [facility], [address] [place] [address] Comment: Testing performed at [facility], [address] [place] [address], [place] [address] Culture, Blood [[id number]] Collected: 12/16/191924 Order Status: Completed Lab Status: Preliminary result Updated: 12/18/19 0717 Specimen: Peripheral Blood Special Requests LEFT HAND Special Requests Testing performed at [facility];[address] [place] [address] 05957 RESULT NO GROWTH AT THIS TIME RESULT Testing performed at [facility], [address] [facility], [place] [address] Comment: Testing performed at [facility], [address] [place] [address] 58846 IMAGING: Reviewed in EPIC, no new results. [...] 2. 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 including a 1.1 x 2.6 cm [...] might be different from the o riginal. [facility]: Infectious Diseases Progress Note Hospital [...] O POSITIVE Antibody Screen NEGATIVE BB BAND [id number] UNIT # [id number] Product Code LEUKODEPLETED PC Unit Division 00 Unit Status ISSUED Transfusion Status OK TO TRANSFUSE CROSSMATCH RESULT COMPATIBLE UNIT # [id number] Product Code LEUKODEPLETED PC Unit Division 00 Unit Status ISSUED Transfusion Status OK TO TRANSFUSE CROSSMATCH RESULT COMPATIBLE Testing performed at [facility];[address] [place] [address] 47464 UNIT # [id number] Product Code LEUKODEPLETED PC Unit Division 00 Unit Status ALLOCATED Transfusion Status OK TO TRANSFUSE CROSSMATCH RESULT COMPATIBLE Red Blood Cells (PRBC) - Crossmatch Result Value Ref Range Product Code RED CELL GROUP Units ordered 1 BLOOD BANK COMMENT ORDER RECEIVED IN BLOOD BANK. BLOOD BANK COMMENT Testing performed at [facility];[address] [place] [address] 08376 Red Blood Cells (PRBC) - Crossmatch Result Value Ref Range Product Code RED CELL GROUP Units ordered 2 BLOOD BANK COMMENT ORDER RECEIVED IN BLOOD BANK. BLOOD BANK COMMENT Testing performed at [facility];[address] [place] [address] 49120 Lactate Dehydrogenase Result Value Ref Range LDH TOTAL 244 120 - 246 U/L Retic Count Result Value Ref Range % Reticulocyte Count 4.7 (H) 0.4 - 2.7 % TSH, Reflex Free T4 Result Value Ref Range TSH 1.380 0.450 - 5.100 uIU/mL Microbiology Results (Last 14 Days by Collected Date with Culture/Sensitivity) Procedure Component Value Units Date/Time Coronavirus (COVID-19) NAAT [[id number]] Collected: 12/16/19 2314 Order Status: Completed Lab Status: Final result Updated: 12/17/19 0022 SARS-CoV-2, NAAT (COVID-19) NEGATIVE Comment: This test was developed and its performance characteristics determined by [facility]. It has not been cleared or approved by the [place] FDA. This test has been authorized by FDA under an Emergency Use Authorization (EUA). Clinicians should be advised to consider a patients signs, symptoms, history, and results of other diagnostic tests when interpreting results. Testing performed at [facility];[address] [place] [address] 24238 Coronavirus (COVID-19) NAAT [[id number]] Collected: 12/16/196 Order Status: Canceled Lab Status: No result Specimen: Tissue from Nasopharynx Culture, Blood [[id number]] Collected: 12/16/19 192 Order Status: Completed Lab Status: Preliminary result Updated: 12/18/19 0717 Specimen: Peripheral Blood Special Requests RIGHT HAND Special Requests Testing performed at [facility];[address] [place] [address] 51233 RESULT NO GROWTH AT THIS TIME RESULT Testing performed at [facility], [address] [place] [address] Comment: Testing performed at [facility], [address] [place] [address] 60732 Culture, Blood [[id number]] Collected: 12/16/191924 Order Status: Completed Lab Status: Preliminary result Updated: 12/18/19716 Specimen: Peripheral Blood Special Requests LEFT HAND Special Requests Testing performed at [facility];[address] [place] [address] 82904 RESULT NO GROWTH AT THIS TIME RESULT Testing performed at [facility], [address] [place] [address] Comment: Testing performed at [facility], [address] [place] [address] 24244 Microbiology Results (72 hrs) Procedure Component Value Units Date/Time Coronavirus (COVID-19) NAAT [[id number]] Collected: 12/16/192313 Order Status: Completed Lab Status: Final result Updated: 12/17/1921 SARS-CoV-2, NAAT (COVID-19) NEGATIVE Comment: This test was developed and its performance characteristics determined by [facility]. It has not been cleared or approved by the [place] FDA. This test has been authorized by FDA under an Emergency Use Authorization (EUA). Clinicians should be advised to consider a patients signs, symptoms, history, and results of other diagnostic tests when interpreting results. Testing performed at [facility];[address] [place] [address] 26660 Culture, Blood [[id number]] Collected: 12/16/191924 Order Status: Completed Lab Status: Preliminary result Updated: 12/18/19716 Specimen: Peripheral Blood Special Requests RIGHT HAND Special Requests Testing performed at [facility];[address] [place] [address] 79677 RESULT NO GROWTH AT THIS TIME RESULT Testing performed at [facility], [address] [place] [address]10 Comment: Testing performed at [facility], [address] [place] [address] 57711 Culture, Blood [[id number]] Collected: 12/16/191924 Order Status: Completed Lab Status: Preliminary result Updated: 12/18/19716 Specimen: Peripheral Blood Special Requests LEFT HAND Special Requests Testing performed at [facility];[address] [place] [address] 13189 RESULT NO GROWTH AT THIS TIME RESULT Testing performed at [facility], [address] [place] [address] Comment: Testing performed at [facility], [address] [place] [address] IMAGING: No new images for review today. [...] therapy as indicated. Thank You, Danielle Cerna, Jose AlbertoD, 12/18/2019, 10:47 AM PDT Monty Gunter MD - 12/18/2019 10:49 AM PDT [facility]: Hospitalist Progress Note Pt: Reilly Hamm AGE/SEX: 69 y.o. male ROOM: [facility]/9107-01 : 1950 PCP: No Physician on file ADMIT DATE: 12/16/2019 TODAY'S DATE: 12/18/2019 Hospital Day/Hospital Course: LOS: 2 days Mr. Hamm is a 69-year-old male with no significant past medical history who originally pr esented to [facility] on 12/14 with progressive weakness for the last few months an d intermittent fevers for the last 1 month, found to have GPC bacteremia and mitral valve en docarditis, transferred to [facility] on 12/15 for further evaluation. Further [...] Component Value Units Date/Time Coronavirus (COVID-19) NAAT [[id number]] Collected: 12/16/19 2314 Order Status: Completed Lab Status: Final result Updated: 12/17/19 0022 SARS-CoV-2, NAAT (COVID-19) NEGATIVE Comment: This test was developed and its performance characteristics determined by [employer]. It has not been cleared or approved by the [place] FDA. This test has been authorized by FDA under an Emergency Use Authorization (EUA). Clinicians should be advised to consider a patients signs, symptoms, history, and results of other diagnostic tests when interpreting results. Testing performed at [facility];[address] [place] [address] 92896 Culture, Blood [[id number]] Collected: 12/16/191924 Order Status: Completed Lab Status: Preliminary result Updated: 12/18/1917 Specimen: Peripheral Blood Special Requests RIGHT HAND Special Requests Testing performed at [facility];[address] [place] [address] 18422 RESULT NO GROWTH AT THIS TIME RESULT Testing performed at [facility], [address] [place] [address] Comment: Testing performed at [facility], [address] [place] [address] 40746 Culture, Blood [[id number]] Collected: 08/04/20 1925 Order Status: Completed Lab Status: Preliminary result Updated: 12/18/19 0717 Specimen: Peripheral Blood Special Requests LEFT HAND Special Requests Testing performed at [facility];[address];[place] [address] RESULT NO GROWTH AT THIS TIME RESULT Testing performed at [facility], [address] [facility], [place] [address] Comment: Testing performed at [facility], [address], [place] [address] IMAGING: Reviewed in [facility], no new results. PROBLEM LIST Principal [...] 1 month Muscle Mass: Severe depletion PPx: [facility] Code status: Full Contacts: Nathalie, , , [...] of surgery still to be determined JJA h, Jeet Aaron MD - 12/18/2019 8:16 AM PDT [facility]: Cardiology Progress Note Date of Admission: 12/16/2019 BRIEF CLINICAL HISTORY: 69 y.o. male transferred from [facility] for little shell tribe m itral valve endocarditis with severe mitral [...] no lighthe adedness/syncope. He initially presented to [facility] 10/31/2019 with those complaints. Laboratory [...] wa s discharged. He then presented to [facility] 12/15/2019 with altered mental stat us and [...] R with a rate of 97, short KS and PACs. A repeat echo at [facility] showed preserved LV systolic f unction with [...] No evidence of pericardial effusion. (10/31/19 - [facility]): EF 55-60%. Impaired relaxation compatible [...] mitral regurgitation ASSESSMENT & PLAN 1. 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 8. Type II diabetes mellitus - HgbA1C 6.2% on 10/31/19 admission and type II diabetes [facility] was diagnosed. ?Typically the cutoff [...] more than one vascular access site, , OR, CVA, bleeding (including the need for blood [...] includi ng but not limited to , sex-ljrgncbtfy-bthtmej tear or rupture, risks of moderate anest [...] Component Value Units Date/Time Coronavirus (COVID-19) NAAT [[id number]] Collected: 12/16/19 2314 Order Status: Completed Lab Status: Final result Updated: 12/17/19 0022 SARS-CoV-2, NAAT (COVID-19) NEGATIVE Comment: This test was developed and its performance characteristics determined by [employer]. It has not been cleared or approved by the [place] FDA. This test has been authorized by FDA under an Emergency Use Authorization (EUA). Clinicians should be advised to consider a patients signs, symptoms, history, and results of other diagnostic tests when interpreting results. Testing performed at [facility];[address] [place] [address];[place] [address] Culture, Blood [[id number]] Collected: 12/16/191924 Order Status: Sent Lab Status: In process Updated: 12/16/192036 Specimen: Peripheral Blood Culture, Blood [[id number]] Collected: 12/16/191924 Order Status: Sent Lab Status: [...] indicate d. Thank You, Reyna Neil, PharmD, [facility] 12/17/19 2:51 PM PDT eyna Neil [facility] - 12/17/2019 2:42 PM PDT . Vancomycin [...] as indicated. Thank You, Reyna Neil, PharmD, [facility] 12/17/19 2:41 PM PDT erryJeet, RD - [...] Neil MD - 12/17/2019 9:05 AM PDT [facility] Hospitalist Progress Note Hospital Day: 1 Patient Summary: Pt admitted on 12/15 for endocarditis SUBJECTIVE Pt feels same today, denies any chest pain, SOB, or FLROES Review of Systems Constitutional: Positive for malaise/fatigue. [...] given cefepime and zosyn 2/2 BC from [facility] grew out gram positive cocci in chains [...] consult in am Pt was admitted to [facility] on with fatigue and poor appetite. 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 Invalid input(s): PROCALCITONIN CrCl cannot be calculated (Patient's most recent lab result is older than the maximum 3 day s allowed.). Microbiology Results (72 hrs) Procedure Component Value Units Date/Time Coronavirus (COVID-19) NAAT [[id number]] Collected: 12/16/192135 Order Status: Sent Lab Status: In process Updated: 12/16/192143 Specimen: Tissue from Nasopharynx Culture, Blood [[id number]] Collected: 12/16/191924 Order Status: Sent Lab Status: In process Updated: 12/16/192036 Specimen: Peripheral Blood Culture, Blood [[id number]] Collected: 12/16/191924 Order Status: Sent Lab Status: [...] on vancomycin 12/15 for bacteremia (GPC in chente sadler), endocarditis. Additional antimicrobials: gentamicin (received cefepime [...] Procedure Component Value Units Date/Time Culture, Blood [[id number]] Collected: 12/16/191924 Order Status: Sent Lab Status: In process Updated: 12/16/192036 Specimen: Peripheral Blood Culture, Blood [[id number]] Collected: 12/16/191924 Order Status: Sent Lab Status: [...] - 12/16/2019 6:39 PM PDTPt arrived from [facility] at 1800. Cardiazem stopped upon a [...] droplet precuautions d/t COVID test pending with [facility].Electron ically signed by Sarika Pinedo, DOROTHY [...] Galvan MD PhD, 12/24/2019 7:27 AM PDT [facility] Electronically signed by Reilly Galvan MD PhD [...] An echocardiogram was performed on 15 December [facility] h showed evidence of a vegetation on [...] report. The patient has been transferred to [facility] for further treatment and evaluation. He [...] male with no significant PMH admitted to [facility] on 12/15/19 wit h weakness for 4 [...] cocci in chains. Pt was transferred to [facility] on 12/15 for further treatment and [...] Affect: Mood normal. Behavior: Behavior normal. Labs: [facility] CaMgPhos LFT CBC Coag Last labs from [...] given cefepime and zosyn 2/2 BC from [facility] grew out gram positive cocci in chains [...] consult in am Pt was admitted to [facility] on with fatigue and poor appetite. Pt [...] with pt on 12/16/19 Family Contact: Nathalie [phone] Something about patient:Pt lives with , they [...] note might be different from the original. [facility] Neurodiagnostic Dept [address] [place] [id number] Patient: Reilly Hamm ID: [id number] : 1950 Age: 69 Gender: male Room #: 35853 Physician: Luis E Malcolm Metal Fabricator Apprentice: Josh Montoya Ref. Physician: Carolin Lang [facility] Recording Date: 12/25/2019 Duration: 00:20:58 Report [...] Mckeon MD - 12/29/2019 2:23 PM PDT [facility]: Cardiology Initial Consult Note Name of Swimming Coach Or Instructor: Olvin Mckeon MD Date of Admission: 12/16/2019 [...] CV LHC; Surgeon: Jeet Tejeda MD; Location: [facility] CV LAB CARDIAC CATHERIZATION N/A 12/19/2019 Procedure: CV COR ANGIO; Surgeon: Jeet Tejeda MD; Location: [facility] CV LAB CARDIAC CATHERIZATION Left 12/19/2019 Procedure: CV LV; Surgeon: Jeet Tejeda MD; Location: [facility] CV LAB MITRAL VALVE REPLACEMENT N/A 12/24/2019 Procedure: MITRAL VALVE REPLACEMENT; Surgeon: Reilly Galvan MD PhD; Location: [facility] CHRISTI N OR TOOTH EXTRACTION N/A 12/20/2019 Procedure: EXTRACTION TEETH; Surgeon: Job Menjivar DMD; Location: [facility] MAIN OR MEDICATIONS Home Medications Medications Prior [...] file Gets together: Not on file Attends yazidism service: Not on file Active member of [...] measuring only 2.5 mm, with min imal brbo-uk-mhhha shunting. There is no evidence of lemuf-pi-sqpe shunting on the intraveno us bubble contrast [...] TF. Diet Experience Self-Selected Diet: Pt in [facility] has food allergy/intolerance to soybean oil and canola oil. Spoke with pt's Nathalie at [phone]. Nathalie states pt does not have a [...] A RNP - 12/24/2019 12:48 PM PDT [facility]: Vocational Rehabilitation Supervisor Initial Consult Note Reilly Sushil Cheyanne 69 y.o. Date of Admission: 12/16/2019 Reason for Consultation: bacterial endocarditis Requesting Physician: Dr. Galvan, Cardiothoracic Surgery History Obtained From: chart review, reason patient could not give history: intubated/sedat ed CHIEF COMPLAINT: weakness Subjective HISTORY OF PRESENT ILLNESS The patient is a 69 y.o. male with significant past medical history of diabetes mellitus wh o presented to [facility] 12/14 due to a 4 month history of weakness and 1 month hist ory of fevers. Echocardiogram was perfromed which revealed mitral valve endocarditis with mi tral valve regurgitation. He was started on zosyn and cefipime. Blood cultures obtained on a dmission grew out GPC in chains in 2/2 bottles. 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 His carious teeth were removed [...] CV LHC; Surgeon: Jeet Tejeda MD; Location: [facility] CV LAB CARDIAC CATHERIZATION N/A 12/19/2019 Procedure: CV COR ANGIO; Surgeon: Jeet Tejeda MD; Location: [facility] CV LAB CARDIAC CATHERIZATION Left 12/19/2019 Procedure: CV LV; Surgeon: Jeet Tejeda MD; Location: [facility] CV LAB TOOTH EXTRACTION N/A 12/20/2019 Procedure: EXTRACTION TEETH; Surgeon: Job Menjivar DMD; Location: [facility] MAIN OR ALLERGIES Allergies Allergen Reactions Canola [...] file Gets together: Not on file Attends yazidism service: Not on file Active member of [...] ID. 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 Source of Infection: endocarditis and bacteremia [...] PM PDTAssociated Order(s): PROVIDER TO PROVIDER CONSULT [facility]: Neurology Initial Consult Note Date of Admission: 12/16/2019 Reason for Consultation: stroke Requesting Physician: Monty Major MD, Hospitalist History Obtained From: patient and chart review CHIEF COMPLAINT: confusion HISTORY OF PRESENT ILLNESS The patient is a 69 y.o. male with no significant past medical history who was admitted fro [facility] due to mitral valve endocarditis. I was [...] 2. 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 Final Report Signed by: Taz Mai, Reji Sign Date/Time: 0 12/18/2019 8:18 PM Xr [...] mg Oral Daily diphenhydrAMINE 25 mg Oral Carpet Tile Layer famotidine 20 mg Intravenous Carpet Tile Layer heparin 5,000 Units Subcutaneous Q12H melatonin 3 mg Oral Nightly probiotic formula 1 capsule Oral Daily with breakfast [START ON 12/20/2019] sodium chloride 0.9% Intravenous Carpet Tile Layer Continuous Infusions PRN Medications acetaminophen, ondansetron, sodium [...] oriented x3 to year, month, date, floor, kadle. Cooperative and appropriate during the encounter. Speech [...] RIGHT HAND Special Requests Testing performed at [facility];[address] [place] [address] RESULT NO GROWTH AT THIS TIME RESULT Testing performed at [facility], [address] [place] [address] Culture, Blood Specimen: Peripheral Blood Result Value Ref Range Special Requests LEFT HAND Special Requests Testing performed at [facility];[address] [place] [address] RESULT NO GROWTH AT THIS TIME RESULT Testing performed at [facility], [address] [place] [address] Coronavirus (COVID-19) NAAT Result Value Ref Range [...] O POSITIVE Antibody Screen NEGATIVE BB BAND [id number] UNIT # [id number] Product Code LEUKODEPLETED PC Unit Division 00 Unit Status ISSUED,FINAL Transfusion Status OK TO TRANSFUSE CROSSMATCH RESULT COMPATIBLE UNIT # [id number] Product Code LEUKODEPLETED PC Unit Division 00 Unit Status ISSUED,FINAL Transfusion Status OK TO TRANSFUSE CROSSMATCH RESULT COMPATIBLE Testing performed at [address] [address] UNIT # [id number] Product Code LEUKODEPLETED PC Unit Division 00 Unit Status ALLOCATED Transfusion Status OK TO TRANSFUSE CROSSMATCH RESULT COMPATIBLE Red Blood Cells (PRBC) - Crossmatch Result Value Ref Range Product Code RED CELL GROUP Units ordered 1 BLOOD BANK COMMENT ORDER RECEIVED IN BLOOD BANK. BLOOD BANK COMMENT Testing performed at [facility];[address] [facility];[place] [address] Red Blood Cells (PRBC) - Crossmatch Result Value Ref Range Product Code RED CELL GROUP Units ordered 2 BLOOD BANK COMMENT ORDER RECEIVED IN BLOOD BANK. BLOOD BANK COMMENT Testing performed at [facility];[address] [facility];[place] [address] PROBLEM LIST Principal Problem: Acute bacterial endocarditis [...] call if there are any questions. Jef yRan MD 12/19/2019 1:01 PM PDT oponce, Job Aaron DMD - 12/17 6:43 PM PDTAssociated Order(s): PROVIDER TO PROVIDER CONSULTFormatting of this note m ight be different from the original. 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 Major, Hospitalist History Obtained From: Dr. Major CHIEF COMPLAINT: Carious/fractured teeth; endocarditis HISTORY OF PRESENT ILLNESS The patient is a 69 y.o. male with no significant PMH admitted to [facility] on 12/15/19 with weakness for 4 months [...] cocci in chains. Pt was transferred to [facility] on 12/16/19 for further treatment and evaluation. [...] Espinoza ph, MD - 12/17/2019 2:40 PM Raymundo [...] An echocardiogram was performed on 15 December [facility] h showed evidence of a vegetation on [...] report. The patient has been transferred to [facility] for further treatment and evaluation. He [...] very much Your sincerely Rashaad Elder MD, [facility], FACS edromana, LEA Hernandez - 12/17/2019 1:36 PM PDTAssociated Order(s): PROVIDER TO PROVIDER CONSULT [facility]: Cardiology Initial Consult Note Name of Swimming Coach Or Instructor: Martha Wolfe. LEA Dougherty/Dr. Daryl Tejeda Primary Printer'S Devil: None prior Reason for Consultation: [place] mitral valve endocarditis with severe MR, SVT Requesting Physician: Dr. Hart, Hospitalist History Obtained From: Patient (poor historian), Chart Review CHIEF COMPLAINT: Confusion, fever HISTORY OF PRESENT ILLNESS: Reilly Hamm is a 69 y.o. male who was transferred from [facility] fo r [place] mitral valve endocarditis with severe mitral regurgitation [...] lightheadedness/syncope. In summary, he initially presented to [facility] 10/31/2019 with those complaints. Laboratory [...] to wors en, he then presented to [facility] 12/15/2019 with altered mental [...] pulmonary hypertension. He was subsequently transferred to [facility] yesterday. Card iology is consulted for further [...] but he is now a dmitted with [place] mitral valve endocarditis with severe MR. No [...] file Gets together: Not on file Attends yazidism service: Not on file Active member of [...] DIGLEVEL:3)@ ECGs reviewed: None since transfer to [facility] ECGs from admission at [facility] reviewed and as documented in HPI Echocardiogram: TTE 12/16/19 ([facility]): 1. Normal LV cavity, normal LV systolic [...] No evidence of pericardial effusion. TTE 10/31/19 ([facility]): Summary Left ventricle is normal [...] None prior ASSESSMENT & PLAN 1. 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 ?Typically the cutoff [...] AM PDTAssociated Order(s): PROVIDER TO PROVIDER CONSULT [facility]: Infectious Diseases Initial Consult Note [...] file Gets together: Not on file Attends yazidism service: Not on file Active member of [...] Component Value Units Date/Time Coronavirus (COVID-19) NAAT [[id number]] Collected: 12/16/192313 Order Status: Completed Lab Status: Final result Updated: 12/17/1921 SARS-CoV-2, NAAT (COVID-19) NEGATIVE Comment: This test was developed and its performance characteristics determined by [employer]. It has not been cleared or approved by the [place] FDA. This test has been authorized by FDA under an Emergency Use Authorization (EUA). Clinicians should be advised to consider a patients signs, symptoms, history, and results of other diagnostic tests when interpreting results. Testing performed at [facility];[address] [place] [address];[place] [address] Coronavirus (COVID-19) NAAT [[id number]] Collected: 12/16/192135 Order Status: Canceled Lab Status: No result Specimen: Tissue from Nasopharynx Culture, Blood [[id number]] Collected: 12/16/191924 Order Status: Sent Lab Status: In process Updated: 12/16/192036 Specimen: Peripheral Blood Culture, Blood [[id number]] Collected: 12/16/191924 Order Status: Sent Lab Status: In process Updated: 12/16/192035 Specimen: Peripheral Blood Microbiology Results (72 hrs) Procedure Component Value Units Date/Time Coronavirus (COVID-19) NAAT [[id number]] Collected: 12/16/192313 Order Status: Completed Lab Status: Final result Updated: 12/17/19 0022 SARS-CoV-2, NAAT (COVID-19) NEGATIVE Comment: This test was developed and its performance characteristics determined by [employer]. It has not been cleared or approved by the [place] FDA. This test has been authorized by FDA under an Emergency Use Authorization (EUA). Clinicians should be advised to consider a patients signs, symptoms, history, and results of other diagnostic tests when interpreting results. Testing performed at [facility];[address] [place] [address];[place] [address] Culture, Blood [[id number]] Collected: 12/16/191924 Order Status: Sent Lab Status: In process Updated: 12/16/192036 Specimen: Peripheral Blood Culture, Blood [[id number]] Collected: 12/16/191924 Order Status: Sent Lab Status: [...] Bed Mobility Supine to Sit, Level of [place]: minimal assist (75% patient effort), moderate assist (50% patient effort) Transfers Sit-Stand, Level of [place]: stand by assist Gait Level of [place]: stand by assist Assistive Device: 4 wheeled [...] Bed Mobility Goal Most Recent Value LTG [place] Level minimum assist (75% patient effort) at 12/25/2019 1022 All Transfers Goal Most Recent Value LTG [place] Level stand by assist, contact guard assist at 12/25/2019 1022 Gait Goal Most Recent Value LTG [place] Level stand by assist, contact guard assist at 12/25/2019 1022 LTG Assistive Device 2 wheeled walker (FWW), 4 wheeled walker (4WW) at 12/25/2019 1022 LTG Distance (feet) 150 at 12/25/2019 1022 lan of Care - Sheila Pillai MA, CCC-ELIGIBILITY WORKER - 12/30/2019 1:16 PM PDT Speech Therapy [...] to discharge - pt is discharging the [facility] ) for 7 days with reassessment [...] Pt will tolerate LRD at 12/30/2019 1259 ELIGIBILITY WORKER Time Calculation ELIGIBILITY WORKER Individual Start Time: 1259 ELIGIBILITY WORKER Individual Stop Time: 1322 ELIGIBILITY WORKER Individual Total Time: 23 ELIGIBILITY WORKER Total Treatment Time: 23 SHEILA PILLAI MA, CCC-ELIGIBILITY WORKER 12/30/2019 lan of Job Jara MSW - 12/30/2019 10:22 AM PDTDISCHARGE PLANNING REINFORCEMENT MAKER p/c with Renetta with Dr. Combs office with [facility], obtain ed upcoming trae aden appt ([phone] fax, phone) for SundayJan 05. Dr. Combs will follow NOT follow new Coumadin or new Home Health orders until after new appt on Jan 05. REINFORCEMENT MAKER p/c with Pilar with [facility], set up teaching today at 2pm in room with Pt and Pt daughter with Pt, unfortunately they are unable to barrel straightener medications to Pt by next 9pm dose, so Pt will stay another night in hospital, (avoidable day documented), Pt funmilayo l receive his 9:00am dose on Sunday then leave here at approx. 9:30am. Rosa sheriff RN. Pt already has discharge medications filled by [facility]. New Coumadin Clinic appt for 12/31 with Kenroy MCCOY at [facility], appt added to AVS. Transportation: Pt will transport Pt home tomorrow morning. DCP: Home with IV Abx - Sunday 9:30am YOBANY HOLGUIN [phone] [id number] lan of Darling Dover OTR/Chivo - 12/30/2019 9:00 AM PDT Occupational Therapy Treatment Note Recommended discharge disposition: home with assist Post discharge occupational therapy recommendation: family involved/supportive, home health Equipment Recommendations: hand held shower head, long handled sponge, director on air, sock aide, toilet tongs, shower chair Barriers [...] sternal ADLs Grooming Assessment/Training Grooming, Level of [place]: set up required Assistive Device: none Grooming Assess/Train, Position: sitting Upper Body Dressing Assessment/Training UB Dressing Assess/Train, Comment: Instructions provided for technique and tactile cueing t o maintain UEs close to chest when donning shirt overhead UB Dressing, Level of [place]: minimal assist (75% patient effort), verbal cues requir ed Assistive Device: none UB Dressing Assess/Train, Position: sitting UB Dressing Impairments: (precautions) Lower Body Dressing Assessment/Training LB Dressing Assess/Train, Comment: Pt was able to safetly bring feet up in order to don ryan ts over feet. LB Dressing, Level of [place]: minimal assist (75% patient effort), verbal cues requir ed Assistive Device: none LB Dressing Assess/Train, Position: sitting, standing LB Dressing Impairments: (precautions) Transfers Sit-Stand, Level of [place]: stand by assist Stand-Sit, Level of [place]: stand by assist [id number], Assistive Device: 4 wheeled walker (4WW) Impairments: strength decreased Balance Sitting Balance: Static: good balance Sitting Balance: Dynamic: good balance Standing Balance: Static: fair balance Goals Reflects last filed data and may be from multiple contributors. UB Dressing Goal Most Recent Value LTG Status new at 12/29/2019 1425 LTG [place] Level minimum assist (75% patient effort) at 12/29/2019 1425 LTG Adaptive Equipment none at 12/29/2019 1425 LTG Comments Maintaining sternal precautions at 12/29/2019 1425 LB Dressing Goal Most Recent Value LTG Status new at 12/29/2019 1425 LTG [place] Level minimum assist (75% patient effort), verbal cues required at 2019 1425 LTG Adaptive Equipment director on air, shoe horn, long handled, sock-aid at 12/29/2019 [...] Bed Mobility Supine to Sit, Level of [place]: minimal assist (75% patient effort), moderate assist (50% patient effort) Transfers Sit-Stand, Level of [place]: stand by assist Gait Level of [place]: stand by assist Assistive Device: 4 wheeled walker (4WW) Distance (feet): 350 Gait Pattern Analysis: swing-through gait Gait Deviations: yeison decreased Goals Reflects last filed data and may be from multiple contributors. All Bed Mobility Goal Most Recent Value LTG [place] Level minimum assist (75% patient effort) at 12/25/2019 1022 All Transfers Goal Most Recent Value LTG [place] Level stand by assist, contact guard assist at 12/25/2019 1022 Gait Goal Most Recent Value LTG [place] Level stand by assist, contact guard assist at 12/25/2019 1022 LTG Assistive Device 2 wheeled walker (FWW), 4 wheeled walker (4WW) at 12/25/2019 1022 LTG Distance (feet) 150 at 12/25/2019 1022 lan of [place] - Salo Slade RN - 12/29/2019 9:48 PM PDT Problem: Pain (Cardiovascular Surgery) Goal: Acceptable Pain Control Outcome: Ongoing, progressing Pt resting comfortably with no s/s of distress No acute events, VSS A M PDTPlan of Job Jara MSW - 12/29/2019 5:18 PM PDTDISCHARGE PLANNING REINFORCEMENT MAKER met with Pt regarding choice for home infusion, states preference is [facility]. REINFORCEMENT MAKER p/c Pilar with [facility], needs IV Abx order, discussed with Pt . REINFORCEMENT MAKER faxed referral to [facility], faxed referral to [facility] for PT and RN. Need Home health order for PT and RN Pt states Pt has new PCP - Dr. LILLIAN ACOSTA MD - [address] [place] [address], [place] [address] - Need to call Office on Sunday morning for Coumadin Follow up appt. DCP: Home YOBANY HOLGUIN [phone] cell lan of Papa Osuna PT - [...] oriented x 4 Transfers Sit-Stand, Level of [place]: stand by assist Stand-Sit, Level of [place]: stand by assist [id number], Assistive Device: 4 wheeled walker (4WW) Toilet, Level of [place]: stand by assist Toilet, Assistive Device: 4 wheeled walker (4WW) Safety Issues: step length decreased Impairments: impaired balance, strength decreased Gait Level of [place]: stand by assist Assistive Device: 4 wheeled walker (4WW) Distance (feet): 350 Goals Reflects last filed data and may be from multiple contributors. All Bed Mobility Goal Most Recent Value LTG [place] Level minimum assist (75% patient effort) at 12/25/2019 1022 All Transfers Goal Most Recent Value LTG [place] Level stand by assist, contact guard assist at 12/25/2019 1022 Gait Goal Most Recent Value LTG [place] Level stand by assist, contact guard assist [...] hand held shower head, long handled sponge, director on air, sock aide, toilet tongs, shower chair Barriers [...] pull shirt down. LB dressing: use of director on air, sock aid, or bringing foot up to [...] LTG Status new at 12/29/2019 1425 LTG [place] Level minimum assist (75% patient effort) at 12/29/2019 1425 LTG Adaptive Equipment none at 12/29/2019 1425 LTG Comments Maintaining sternal precautions at 12/29/2019 1425 LB Dressing Goal Most Recent Value LTG Status new at 12/29/2019 1425 LTG [place] Level minimum assist (75% patient effort), verbal cues required at 2019 1425 LTG Adaptive Equipment director on air, shoe horn, long handled, sock-aid at 12/29/2019 [...] Speech: clear, logical Transfers Sit-Stand, Level of [place]: stand by assist Stand-Sit, Level of [place]: stand by assist Toilet, Level of [place]: stand by assist Safety Issues: step length decreased Impairments: impaired balance, strength decreased Gait Level of [place]: stand by assist, contact guard assist Assistive Device: 4 wheeled walker (4WW) Distance (feet): 350 Goals Reflects last filed data and may be from multiple contributors. All Bed Mobility Goal Most Recent Value LTG [place] Level minimum assist (75% patient effort) at 12/25/2019 1022 All Transfers Goal Most Recent Value LTG [place] Level stand by assist, contact guard assist at 12/25/2019 1022 Gait Goal Most Recent Value LTG [place] Level stand by assist, contact guard assist [...] toilet, sit to/from stand Sit-Stand, Level of [place]: contact guard assist Stand-Sit, Level of [place]: contact guard assist [id number], Assistive Device: 4 wheeled walker (4WW) Toilet, Level of [place]: contact guard assist Toilet, Assistive Device: 4 wheeled walker (4WW) Impairments: impaired balance, strength decreased Gait Level of [place]: contact guard assist Assistive Device: 4 wheeled walker (4WW), gait belt Distance (feet): 200 Gait Deviations: yeison decreased, stride length decreased Safety Issues: balance decreased during turns Goals Reflects last filed data and may be from multiple contributors. All Bed Mobility Goal Most Recent Value LTG [place] Level minimum assist (75% patient effort) at 12/25/2019 1022 All Transfers Goal Most Recent Value LTG [place] Level stand by assist, contact guard assist at 12/25/2019 1022 Gait Goal Most Recent Value LTG [place] Level stand by assist, contact guard assist [...] Documentation: sit to/from stand Sit-Stand, Level of [place]: contact guard assist Stand-Sit, Level of [place]: contact guard assist [id number], Assistive Device: gait belt, other (see comments)(HPW) Safety Issues: step length decreased Impairments: impaired balance, strength decreased Gait Level of [place]: contact guard assist Assistive Device: gait belt, other (see comments)(HPW) Distance (feet): 120 Gait Deviations: yeison decreased, double stance time increased, limb motion velocity decr eased Safety Issues: balance decreased during turns, sequencing ability decreased, step length de creased, weight-shifting ability decreased Goals Reflects last filed data and may be from multiple contributors. All Bed Mobility Goal Most Recent Value LTG [place] Level minimum assist (75% patient effort) at 12/25/2019 1022 All Transfers Goal Most Recent Value LTG [place] Level stand by assist, contact guard assist at 12/25/2019 1022 Gait Goal Most Recent Value LTG [place] Level stand by assist, contact guard assist at 12/25/2019 1022 LTG Assistive Device 2 wheeled walker (FWW), 4 wheeled walker (4WW) at 12/25/2019 1022 LTG Distance (feet) 150 at 12/25/2019 1022 PT Time Calculation Individual Start Time: 809 Individual Stop Time: 40 Individual Total Time: [...] Documentation: sit to/from stand Sit-Stand, Level of [place]: minimal assist (75% patient effort) Stand-Sit, Level of [place]: moderate assist (50% patient effort) Sth-Jtqid-Wsz, Assistive Device: gait belt, other (see comments)(HPW) Safety Issues: loses balance backward, step length decreased Impairments: impaired balance, strength decreased Gait Level of [place]: minimal assist (75% patient effort) Assistive Device: [...] Bed Mobility Goal Most Recent Value LTG [place] Level minimum assist (75% patient effort) at 12/25/2019 1022 All Transfers Goal Most Recent Value LTG [place] Level stand by assist, contact guard assist at 12/25/2019 1022 Gait Goal Most Recent Value LTG [place] Level stand by assist, contact guard assist [...] Pt will tolerate LRD at 12/21/2019 1224 ELIGIBILITY WORKER Time Calculation ELIGIBILITY WORKER Individual Start Time: 1420 ELIGIBILITY WORKER Individual Stop Time: 1432 ELIGIBILITY WORKER Individual Total Time: 12 ELIGIBILITY WORKER Total Treatment Time: 12 lan of Rima [...] Maintained Outcome: Met lan of Care - Rubi marshall Yelena Camargo, MS [facility]-ELIGIBILITY WORKER - 12/26/2019 3:28 PM PDTFormatting of this [...] Pt will tolerate LRD at 12/21/2019 1224 ELIGIBILITY WORKER Time Calculation ELIGIBILITY WORKER Individual Start Time: 1528 ELIGIBILITY WORKER Individual Stop Time: 1551 ELIGIBILITY WORKER Individual Total Time: 23 ELIGIBILITY WORKER Total Treatment Time: 23 lan of Aki [...] Bed Mobility Supine to Sit, Level of [place]: moderate assist (50% patient effort), 2 person assist required Transfers Sit-Stand, Level of [place]: moderate assist (50% patient effort), 2 person assist req uired Gait Level of [place]: moderate assist (50% patient effort), 1 person [...] Bed Mobility Goal Most Recent Value LTG [place] Level minimum assist (75% patient effort) at 12/25/2019 1022 All Transfers Goal Most Recent Value LTG [place] Level stand by assist, contact guard assist at 12/25/2019 1022 Gait Goal Most Recent Value LTG [place] Level stand by assist, contact guard assist at 12/25/2019 1022 LTG Assistive Device 2 wheeled walker (FWW), 4 wheeled walker (4WW) at 12/25/2019 1022 LTG Distance (feet) 150 at 12/25/2019 1022 lan of [facility] - Lillie Patel MSW - 12/26/2019 9:47 AM PDTAttended daily rounding. Pt was extuba prasanna this morning and is confused, per RN. At baseline, pt resides with his spouse in [facility] to follow for discharge planning. YOBANY VAUGHN [...] Trevor Coombs ARNP - 12[facility]25/2019 10:[facility] Vocational Rehabilitation Supervisor Restraint for Medical Interference: Face to Face [...] Prevent or Manage Infection Flowsheets (Taken 12/25/2019 7762) Infection Management: aseptic technique maintained Note: Patient remains afebrile; WBC trending down from 12/23. No signs or symptoms of new i nfection. Patient remains on antibiotics esearch Note - Fadumo Williamson, - 12/25/2019 12:53 PM PDTBRAVE STUDY CONSENT Title: Biomedical Resilience & Readiness in [employer] Operating Environments (BRAVE)-- Sampling Molecular Effectors of COVID-19 in Exhaled Breath Condensate (EBC) Partner Study with [facility] ([facility]) You are being asked to provide verbal consent of behalf of a participant to participate in this study as their legally authorized customer service representative teller (LAR). The goal of the study is [...] has received study information from the Primary Printer[employer]S Devil or an authorized Sub-I nvestigator and have [...] opportunity to ask questions. He/She voluntarily gives [facility] permission to collect the specimens and send de-identified specimens a nd data to [facility]. He/She understands that participation is voluntary, and that he/she is shameka e to withdraw the participant at any time, without giving a reason and without penalty. He/She voluntarily agrees/ or does not consent as a legally authorized customer service representative teller on be half of a participant to participate in this study, as documented below: Do you consent for the patient to participate in this research study? __X___ Yes, I consent No, I do not consent Do you consent to use specimens and data for future research? __X___ Yes, I consent No, I do not consent Participant name: Reilly Hamm Legally authorized customer service representative teller's name: Nathalie Hamm () Principle Printer[employer] Devil: Fadumo Rodriguez DO Date: 12/25/2019 [facility] IRB IRB Number: [id number] IRB Approval Date: 12/17/2019 lan of Diann [...] Medicare so likely will need SNF for care home IV abx. Contact Information Family Contact Information: Name: Nathalie Hamm(spouse); [phone] Phone: spouse additonal contact: Alvaro Newton, daughter, Ntndtyjjhuufmg signed by Da Thomas ch REINFORCEMENT MAKER at 12/25/2019 10:34 AM PDTPlan of Aki [...] to/from sit Supine to Sit, Level of [place]: moderate assist (50% patient effort), maximal assist (25% patient effort), 2 person assist required Transfers Additional Documentation: sit to/from stand Sit-Stand, Level of [place]: moderate assist (50% patient effort), 1 person + 1 person to manage equipment Gait Level of [place]: moderate assist (50% patient effort), maximal assist (25% patient ef fort), 1 person + 1 person to manage equipment Assistive Device: none, gait belt Distance (feet): 2 Additional Documentation: pattern, deviations, safety, impairments Gait Pattern Analysis: swing-to gait Gait Deviations: yeison decreased, limb motion velocity decreased, step length decreased, ffqch-gl-novbfy ratio decreased, weight-shifting ability decreased Safety Issues: [...] Bed Mobility Goal Most Recent Value LTG [place] Level minimum assist (75% patient effort) at 12/25/2019 1022 All Transfers Goal Most Recent Value LTG [place] Level stand by assist, contact guard assist at 12/25/2019 1022 Gait Goal Most Recent Value LTG [place] Level stand by assist, contact guard assist at 12/25/2019 1022 LTG Assistive Device 2 wheeled walker (FWW), 4 wheeled walker (4WW) at 12/25/2019 1022 LTG Distance (feet) 150 at 12/25/2019 1022 lan of Karina Cueto MD - 12/25/2019 12:[address] [facility] Service: Vocational Rehabilitation Supervisor Restraint for Medical Interference: Face to Face [...] Anesthesiologist: Nimesh Castillo MD Anesthesia Type: General Breaker Up Machine Operator: Len Felipe RN; Hang Walker RN Shell Machine Operator: Trevon Bob, OR Tech Registered Nurse Social Media Designer: Ingrid Delvalle, INSTRUCTOR SUBSTITUTE COSMETOLOGY; Ayana Parsons INSTRUCTOR SUBSTITUTE COSMETOLOGY Scrub: Kaycee Pina, OR Tech; Alisia Monk, OR Tech; Dianne Caballero, OR Tech ; Antoinette Baca, OR Tech Relief Shell Machine Operator: Jaxon Beckman [facility] Bonderizer Operator: Bernadette Price [facility] INTRAOPERATIVE DATA: Cross-clamp time: 110 min [...] the case. Topical slush was used and thje myocardial temperature monitored. Carbon dioxide was used [...] and use encouraged. lan of Care - Sheree Miguel, MS [facility]-ELIGIBILITY WORKER - 12/23/2019 4:41 PM PDT Speech Therapy [...] spee ch reevaluate swallow post teeth extraction. Revenue Integrity Analyst at bedside to see pre-op. Pt expressed [...] Care Review Outcome: Ongoing, progressing Flowsheets (Taken 12/22/20191946) Plan of Care Reviewed With: patient Note: [...] Intake Outcome: Ongoing, progressing Pt seen by lining repairer. Pt has decreased appetite. Encouraging food that seem appetizing and with each interaction. Chart check complete. Alisia Bello RN lan of Lillie iDll MSW - 12/22/2019 11:40 AM PDTCare Management Follow-Up Readmission Risk: HIGH Current Discharge Plan Anticipated Discharge Disposition: home Expected DC Date: 12/29/2019 Steps Taken Toward Discharge: REINFORCEMENT MAKER attended daily rounding. Pt will have valve [...] Pt will tolerate LRD at 12/21/2019 1224 ELIGIBILITY WORKER Time Calculation ELIGIBILITY WORKER Individual Start Time: 1224 ELIGIBILITY WORKER Individual Stop Time: 1246 ELIGIBILITY WORKER Individual Total Time: 22 ELIGIBILITY WORKER Total Treatment Time: 22 12: 46 PM [...] pain x1. End of shift chart c oscar complete. Mallory Rodriguez RN p Note - To Job kohler DMD - 12/20/2019 12:[address] [facility] Service: supervisor vine fruit farming Operative Note Pre-operative Diagnosis: Bacterial endocarditis; carious [...] midline palatal torus Surgeon: Job Menjivar DMD Director Of Perioperative Services(s): OR staff Anesthesia: General Estimated Blood Loss: less than 100 mL Indications: The patient is a 69 y.o. year-old male who was referred to [facility] for evaluation [...] was taken to operating room 2 at [facility] and was placed on the operating [...] stable Job Menjivar DMD 12/20/2019 lan of Adi Saels RN - 12/19/2019 9:28 PM PDT Problem: [...] Prior to Admission or Illness Arrival From: home([place], [place]) Lives With: spouse Living Arrangements: house Functional Status: indep at baseline Home Accessibility: no concerns Transportation Available: family or friend will provide Able to return to prior living: yes Care Management Concerns Last discharge date: Readmission Within Last 30 Days: no previous admission in last 30 days PCP: Cathi casillas, Dr Curse? Contact Information Family Contact Information: Name: Nathalie Hamm(spouse); [phone] Phone: spouse additonal contact: Alvaro Newton, daughter, [...] 12/18/2019 3:14 PM PDT lan of Annika Kenae RN - 12/18/2019 12:58 AM PDT Problem: [...] slow ooze and has mostly stopped. Rashaad camargo has voided several times since then, starting [...] | | 2019 | Visit | | [address] | | | | | | [place] [...] | | | | | | [place] [address] | | | | | | [phone] | | | | | | | | +--------+---------+ + + + | 01/20/ | Office | Cardiology | Valarie, | | | 2019 | Visit | | [address] | | | | | | [address] | | | | | | [place] | | | | | | [address] | | | | | | | | +--------+---------+ + + + | 01/20/ | Office | Infectious Diseases | Josh Mckeon DO | | | 2019 | Visit | | [address] | | | | | | [place] [address] | | | | | | [phone] | | | | | | | [...] + +--------+ + + + | POC RANDY, [id number], | Routin | 12/24/2019 | | Results [...] + +--------+ + + + | POC FARIDATROYCheyenne, [id number], | Routin | 12/24/2019 | | Results for this | | ARTERIAL | e | 8:34 AM | | procedure are in the | | | | PDT | | results section. | + +--------+ + + + | REPLACEMENT / REPAIR | | 12/24/2019 | Endocarditis of | | | VALVE MITRAL | | 7:26 AM | mitral valve | | | | | PDT | [...] | | Final Report Signed by: Fernando Raymond, Josh Sign Date/Time: | | | 12/31/2019 6:00 AM | | + + + + + | Procedure Note | + + | Juan, [id number] - 12/31/2019 6:04 AM PDT | | [...] | INR | 2.9Comment: REFERENCE | | INGA | | | | RANGE:0.9 - 1.2 [...] | | | | | performed at [facility];[address] | | | | | | [address] [facility];[place], [place] | | | | | | [address] | | | | + + + + + + + + | Specimen | + + | Blood | + + + + + + + | Performing | Address | City/State/Zipcode | Phone Number | | Organization | | | | + + + + + | [facility] | [address] | [place] [address] | [phone] | + + + + + Magnesium (12/31/2019 5:36 AM PDT) + + + + + + | Component | Value | Ref Range | Performed | Pathologist | | | | | At | Signature | + + + + + + | Magnesium | 1.5 (L)Comment: Testing | 1.7 - 2.4 mg/dL | [facility] | | | | performed at [facility];[address] | | LABORATORY | | | | [facility];[place] | | | | | | [address] | | | | + + + + + + + + | Specimen | + + | Blood | + + + + + + + | Performing | Address | City/State/Zipcode | Phone Number | | Organization | | | | + + + + + | [facility] | [address] | [place] [address] | [phone] | + + + + + CBC [...] | | | Absolute | performed at [facility], [address] | K/uL | LABORATORY | | | | [address], | | | | | | [place] [address] | | | | + + + + + + + + | Specimen | + + | Blood | + + + + + + + | Performing | Address | City/State/Zipcode | Phone Number | | Organization | | | | + + + + + | [facility] | [address] | [place] [address] | [phone] | + + + + + Basic [...] | >60Comment: GFR <60: | >60 | [facility] | | | GFR | CHRONIC [...] | | | | | | MDRD [facility] traceable | | | | | | equation.Testing | | | | | | performed at [facility];[address] | | | | | | [address] [facility];[place], [place] | | | | | | [address] | | | | + + + + + + + + | Specimen | + + | Blood | + + + + + + + | Performing | Address | City/State/Zipcode | Phone Number | | Organization | | | | + + + + + | [facility] | [address] [facility] | [place] [address] | [phone] | + + + + + POC [...] | | | POC | performed at [facility];[address] | | LABORATORY | | | | [address];[place], [place] | | | | | | [address] | | | | + + + + + + + + | Specimen | + + | | + + + + + + + | Performing | Address | City/State/Zipcode | Phone Number | | Organization | | | | + + + + + | [facility] | [address] | [place] [address] | [phone] | + + + + + POC Glucose (12/30/2019 4:42 PM PDT) + + + + + + | Component | Value | Ref Range | Performed | Pathologist | | | | | At | Signature | + + + + + + | Glucose, | 99Comment: Testing | 65 - 99 mg/dL | [facility] | | | POC | performed at [facility];[address] | | LABORATORY | | | | [address];[place] | | | | | | [address] | | | | + + + + + + + + | Specimen | + + | | + + + + + + + | Performing | Address | City/State/Zipcode | Phone Number | | Organization | | | | + + + + + | [facility] | [address] | [place] [address] | [phone] | + + + + + POC [...] | | | POC | performed at [facility];[address] | | LABORATORY | | | | [address];[place], [place] | | | | | | [address] | | | | + + + + + + + + | Specimen | + + | | + + + + + + + | Performing | Address | City/State/Zipcode | Phone Number | | Organization | | | | + + + + + | [facility] | [address] | [place] [address] | [phone] | + + + + + XR [...] Procedure Note | + + | [place], [id number] - 12/30/2019 5:56 AM PDT | | [...] + + | Performing | Address | City/State/[facility] | Phone Number | | Organization | [...] | | | | | performed at [facility];[address] | | | | | | [address];[place] | | | | | | [address] | | | | + + + + + + + + | Specimen | + + | Blood | + + + + + + + | Performing | Address | City/State/Zipcode | Phone Number | | Organization | | | | + + + + + | [facility] | [address] | [place] [address] | [phone] | + + + + + Magnesium (12/30/2019 4:50 AM PDT) + + + + + + | Component | Value | Ref Range | Performed | Pathologist | | | | | At | Signature | + + + + + + | Magnesium | 1.7Comment: Testing | 1.7 - 2.4 mg/dL | [facility] | | | | performed at [facility];[address] | | LABORATORY | | | | [address];[place] | | | | | | [address] | | | | + + + + + + + + | Specimen | + + | Blood | + + + + + + + | Performing | Address | City/State/Zipcode | Phone Number | | Organization | | | | + + + + + | [facility] | [address] | [place] [address] | [phone] | + + + + + CBC [...] | | | Absolute | performed at [facility];[address] | K/uL | LABORATORY | | | | [address];[place] | | | | | | [address] | | | | + + + + + + + + | Specimen | + + | Blood | + + + + + + + | Performing | Address | City/State/Zipcode | Phone Number | | Organization | | | | + + + + + | [facility] | [address] | [place] [address] | [phone] | + + + + + Basic [...] | >60Comment: GFR <60: | >60 | [facility] | | | GFR | CHRONIC [...] | | | | | performed at [facility];[address] | | | | | | [address];[place], [place] | | | | | | [address] | | | | + + + + + + + + | Specimen | + + | Blood | + + + + + + + | Performing | Address | City/State/Zipcode | Phone Number | | Organization | | | | + + + + + | [facility] | [address] | [place] [address] | [phone] | + + + + + POC Glucose (12/29/2019 8:11 PM PDT) + + + + + + | Component | Value | Ref Range | Performed | Pathologist | | | | | At | Signature | + + + + + + | Glucose, | 106 (H)Comment: Testing | 65 - 99 mg/dL | [facility] | | | POC | performed at [facility];[address] | | LABORATORY | | | | [address];[place] | | | | | | [address] | | | | + + + + + + + + | Specimen | + + | | + + + + + + + | Performing | Address | City/State/Zipcode | Phone Number | | Organization | | | | + + + + + | [facility] | [address] | [place] [address] | [phone] | + + + + + POC Glucose (12/29/2019 4:44 PM PDT) + + + + + + | Component | Value | Ref Range | Performed | Pathologist | | | | | At | Signature | + + + + + + | Glucose, | 102 (H)Comment: Testing | 65 - 99 mg/dL | [facility] | | | POC | performed at [facility];[address] | | LABORATORY | | | | [address];[place] | | | | | | [address] | | | | + + + + + + + + | Specimen | + + | | + + + + + + + | Performing | Address | City/State/Zipcode | Phone Number | | Organization | | | | + + + + + | [facility] | [address] | [place] [address] | [phone] | + + + + + POC [...] | | | POC | performed at [facility];[address] | | LABORATORY | | | | [address];[place], [place] | | | | | | [address] | | | | + + + + + + + + | Specimen | + + | | + + + + + + + | Performing | Address | City/State/Zipcode | Phone Number | | Organization | | | | + + + + + | [facility] | [address] | [place] [address] | [phone] | + + + + + POC Glucose (12/29/2019 8:51 AM PDT) + + + + + + | Component | Value | Ref Range | Performed | Pathologist | | | | | At | Signature | + + + + + + | Glucose, | 93Comment: Testing | 65 - 99 mg/dL | [facility] | | | POC | performed at [facility];[address] | | LABORATORY | | | | [address];[place] | | | | | | [address] | | | | + + + + + + + + | Specimen | + + | | + + + + + + + | Performing | Address | City/State/Zipcode | Phone Number | | Organization | | | | + + + + + | [facility] | [address] | [place] [address] | [phone] | + + + + + ECG [...] MD | | | | | | ([id number]) on 12/29/2019 | | | | | [...] Procedure Note | + + | [place], [id number] - 12/29/2019 6:31 AM PDT | | [...] | | | | | performed at [facility];[address] | | | | | | [address] [facility];[place], [place] | | | | | | [address] | | | | + + + + + + + + | Specimen | + + | Blood | + + + + + + + | Performing | Address | City/State/Zipcode | Phone Number | | Organization | | | | + + + + + | [facility] | [address] | [place] [address] | [phone] | + + + + + Magnesium (12/29/2019 5:36 AM PDT) + + + + + + | Component | Value | Ref Range | Performed | Pathologist | | | | | At | Signature | + + + + + + | Magnesium | 1.8Comment: Testing | 1.7 - 2.4 mg/dL | [facility] | | | | performed at [facility];[address] | | LABORATORY | | | | [address];[place] | | | | | | [address] | | | | + + + + + + + + | Specimen | + + | Blood | + + + + + + + | Performing | Address | City/State/Zipcode | Phone Number | | Organization | | | | + + + + + | [facility] | [address] | [place] [address] | [phone] | + + + + + CBC [...] | | | Absolute | performed at [facility];[address] | K/u[address] | LABORATORY | | | | [address];[place], [place] | | | | | | [address] | | | | + + + + + + + + | Specimen | + + | Blood | + + + + + + + | Performing | Address | City/State/Zipcode | Phone Number | | Organization | | | | + + + + + | [facility] | [address] | [place] [address] | [phone] | + + + + + Basic [...] | | | | | performed at [facility];[address] | | | | | | [address];[place], [place] | | | | | | [address] | | | | + + + + + + + + | Specimen | + + | Blood | + + + + + + + | Performing | Address | City/State/Zipcode | Phone Number | | Organization | | | | + + + + + | [facility] | [address] | [place] [address] | [phone] | + + + + + MRI [...] Procedure Note | + + | [place], [id number] - 12/28/2019 11:01 PM PDT | | [...] | | | POC | performed at [facility];[address] | | LABORATORY | | | | [address];[place], [place] | | | | | | [address] | | | | + + + + + + + + | Specimen | + + | | + + + + + + + | Performing | Address | City/State/Zipcode | Phone Number | | Organization | | | | + + + + + | [facility] | [address] | [place] [address] | [phone] | + + + + + POC Glucose (12/28/2019 4:24 PM PDT) + + + + + + | Component | Value | Ref Range | Performed | Pathologist | | | | | At | Signature | + + + + + + | Glucose, | 114 (H)Comment: Testing | 65 - 99 mg/dL | [facility] | | | POC | performed at [facility];[address] | | LABORATORY | | | | [address];[place], [place] | | | | | | [address] | | | | + + + + + + + + | Specimen | + + | | + + + + + + + | Performing | Address | City/State/Zipcode | Phone Number | | Organization | | | | + + + + + | [facility] | [address] | [place] [address] | [phone] | + + + + + Protime [...] | | | | | performed at [facility] | | | | | | [address];[place], [place] | | | | | | [address] | | | | + + + + + + + + | Specimen | + + | Blood | + + + + + + + | Performing | Address | City/State/Zipcode | Phone Number | | Organization | | | | + + + + + | [facility] | [address] | [place] [address] | [phone] | + + + + + POC Glucose (12/28/2019 11:28 AM PDT) + + + + + + | Component | Value | Ref Range | Performed | Pathologist | | | | | At | Signature | + + + + + + | Glucose, | 100 (H)Comment: Testing | 65 - 99 mg/dL | [facility] | | | POC | performed at [facility];[address] | | LABORATORY | | | | [address];[place] | | | | | | [address] | | | | + + + + + + + + | Specimen | + + | | + + + + + + + | Performing | Address | City/State/Zipcode | Phone Number | | Organization | | | | + + + + + | [facility] | [address] | [place] [address] | [phone] | + + + + + ECG [...] | | | | | EARNESTINE THOMAS ([id number]) on | | | | | | [...] | | | POC | performed at [facility];[address] | | LABORATORY | | | | [address];[place] | | | | | | [address] | | | | + + + + + + + + | Specimen | + + | | + + + + + + + | Performing | Address | City/State/Zipcode | Phone Number | | Organization | | | | + + + + + | [facility] | [address] | [place] [address] | [phone] | + + + + + XR [...] Procedure Note | + + | [place], [id number] - 12/28/2019 6:01 AM PDT | | [...] Testing | 1.7 - 2.4 mg/dL | [facility] | | | | performed at [facility];[address] | | LABORATORY | | | | [address];[place] | | | | | | [address] | | | | + + + + + + + + | Specimen | + + | Blood | + + + + + + + | Performing | Address | City/State/Zipcode | Phone Number | | Organization | | | | + + + + + | [facility] | [address] | [place] [address] | [phone] | + + + + + CBC [...] | | | Absolute | performed at [facility];888 | K/uL | LABORATORY | | | | [address];[place], [place] | | | | | | [address] | | | | + + + + + + + + | Specimen | + + | Blood | + + + + + + + | Performing | Address | City/State/Zipcode | Phone Number | | Organization | | | | + + + + + | [facility] | [address] | [place] [address] | [phone] | + + + + + Basic [...] | >60Comment: GFR <60: | >60 | [facility] | | | GFR | CHRONIC [...] | | | | | | [facility]D [facility] traceable | | | | | | equation.Testing | | | | | | performed at [facility];888 | | | | | | [address] [facility];[place], [place] | | | | | | [address] | | | | + + + + + + + + | Specimen | + + | Blood | + + + + + + + | Performing | Address | City/State/Zipcode | Phone Number | | Organization | | | | + + + + + | [facility] | [address] | [place] [address] | [phone] | + + + + + POC [...] | | | POC | performed at [facility];888 | | LABORATORY | | | | [address];[place] | | | | | | [address] | | | | + + + + + + + + | Specimen | + + | | + + + + + + + | Performing | Address | City/State/Zipcode | Phone Number | | Organization | | | | + + + + + | [facility] | [address] | [place] [address] | [phone] | + + + + + POC [...] | | | POC | performed at [facility];888 | | LABORATORY | | | | [address];[place], [place] | | | | | | [address] | | | | + + + + + + + + | Specimen | + + | | + + + + + + + | Performing | Address | City/State/Zipcode | Phone Number | | Organization | | | | + + + + + | [facility] | [address] | [place] [address] | [phone] | + + + + + Potassium (12/27/2019 12:39 PM PDT) + + + + + + | Component | Value | Ref Range | Performed | Pathologist | | | | | At | Signature | + + + + + + | K | 4.4Comment: Testing | 3.5 - 4.9 | [facility] | | | | performed at [facility];888 | mmol/L | LABORATORY | | | | [address] [facility];[place], [place] | | | | | | [address] | | | | + + + + + + + + | Specimen | + + | Blood | + + + + + + + | Performing | Address | City/State/Zipcode | Phone Number | | Organization | | | | + + + + + | [facility] | [address] | [place] [address] | [phone] | + + + + + POC [...] | | | POC | performed at [facility];[address] | | LABORATORY | | | | [address];[place] | | | | | | [address] | | | | + + + + + + + + | Specimen | + + | | + + + + + + + | Performing | Address | City/State/Zipcode | Phone Number | | Organization | | | | + + + + + | [facility] | [address] | [place] [address] | [phone] | + + + + + XR [...] Procedure Note | + + | Juan, [id number] - 12/27/2019 10:00 AM PDT | | [...] + + | Performing | Address | City/State/[facility] | Phone Number | | Organization | [...] Procedure Note | + + | Juan, [id number] - 12/27/2019 9:33 AM PDT | | [...] | | | POC | performed at [facility];[address] | | LABORATORY | | | | [address];[place], [place] | | | | | | [address] | | | | + + + + + + + + | Specimen | + + | | + + + + + + + | Performing | Address | City/State/Zipcode | Phone Number | | Organization | | | | + + + + + | [facility] | [address] | [place] [address] | [phone] | + + + + + XR [...] Procedure Note | + + | Juan, [id number] - 12/27/2019 6:04 AM PDT | | [...] [facility] | | | | performed at [facility];8 | | LABORATORY | | | | [facility];[place], [place] | | | | | | [address] | | | | + + + + + + + + | Specimen | + + | Blood | + + + + + + + | Performing | Address | City/State/Zipcode | Phone Number | | Organization | | | | + + + + + | [facility] | [address] | [place] [address] | [phone] | + + + + + CBC [...] 0.02Comment: Testing | 0.00 - 0.10 | [facility] | | | Absolute | performed at [facility];[address] | K/uL | LABORATORY | | | | [address];[place], [place] | | | | | | [address] | | | | + + + + + + + + | Specimen | + + | Blood | + + + + + + + | Performing | Address | City/State/Zipcode | Phone Number | | Organization | | | | + + + + + | [facility] | [address] | [place] [address] | [phone] | + + + + + Basic [...] | | | | | performed at [facility];888 | | | | | | [address];[place], [place] | | | | | | [address] | | | | + + + + + + + + | Specimen | + + | Blood | + + + + + + + | Performing | Address | City/State/Zipcode | Phone Number | | Organization | | | | + + + + + | [facility] | [address] [facility] | [place] [address] | [phone] | + + + + + POC [...] | | | POC | performed at [facility];[address] | | LABORATORY | | | | [address];[place], [place] | | | | | | [address] | | | | + + + + + + + + | Specimen | + + | | + + + + + + + | Performing | Address | City/State/Zipcode | Phone Number | | Organization | | | | + + + + + | [facility] | [address] | [place] [address] | [phone] | + + + + + POC [...] | | | POC | performed at [facility];[address] | | LABORATORY | | | | [address];[place] | | | | | | [address] | | | | + + + + + + + + | Specimen | + + | | + + + + + + + | Performing | Address | City/State/Zipcode | Phone Number | | Organization | | | | + + + + + | [facility] | [address] | [place] [address] | [phone] | + + + + + POC Glucose (12/26/2019 1:33 PM PDT) + + + + + + | Component | Value | Ref Range | Performed | Pathologist | | | | | At | Signature | + + + + + + | Glucose, | 121 (H)Comment: Testing | 65 - 99 mg/dL | [facility] | | | POC | performed at [facility];[address] | | LABORATORY | | | | [address];[place], [place] | | | | | | [address] | | | | + + + + + + + + | Specimen | + + | | + + + + + + + | Performing | Address | City/State/Zipcode | Phone Number | | Organization | | | | + + + + + | [facility] | [address] | [place] [address] | [phone] | + + + + + Echo [...] done 12/16/2019 | | | at [facility]. | | |12/16/[address] [facility]. | | | | | + + [...] | | | POC | performed at [facility];[address] | | LABORATORY | | | | [address];[place], [place] | | | | | | [address] | | | | + + + + + + + + | Specimen | + + | | + + + + + + + | Performing | Address | City/State/Zipcode | Phone Number | | Organization | | | | + + + + + | [facility] | [address] | [place] [address] | [phone] | + + + + + ECG [...] | | | | | EARNESTINE THOMAS ([id number]) on | | | | | | [...] Procedure Note | + + | Juan, [id number] - 12/26/2019 6:22 AM PDT | | [...] | | | POC | performed at [facility];888 | | LABORATORY | | | | [address];[place] | | | | | | [address] | | | | + + + + + + + + | Specimen | + + | | + + + + + + + | Performing | Address | City/State/Zipcode | Phone Number | | Organization | | | | + + + + + | [facility] | [address] | [place] [address] | [phone] | + + + + + Magnesium (12/26/2019 3:15 AM PDT) + + + + + + | Component | Value | Ref Range | Performed | Pathologist | | | | | At | Signature | + + + + + + | Magnesium | 2.3Comment: Testing | 1.7 - 2.4 mg/dL | [facility] | | | | performed at [facility];888 | | LABORATORY | | | | [address];[place] | | | | | | [address] | | | | + + + + + + + + | Specimen | + + | Blood | + + + + + + + | Performing | Address | City/State/Zipcode | Phone Number | | Organization | | | | + + + + + | [facility] | [address] | [place] [address] | [phone] | + + + + + CBC [...] | | | Absolute | performed at [facility];888 | K/uL | LABORATORY | | | | [address];[place] | | | | | | [address] | | | | + + + + + + + + | Specimen | + + | Blood | + + + + + + + | Performing | Address | City/State/Zipcode | Phone Number | | Organization | | | | + + + + + | [facility] | [address] | [place] [address] | [phone] | + + + + + Basic [...] 7.8 (L) | 8.5 - 10.5 | [facility] | | | | | mg/dL | LABORATORY | | + + + + + + | Estimated | >60Comment: GFR <60: | >60 | [facility] | | | GFR | CHRONIC [...] | | | | | performed at [facility] | | | | | | [facility];[place], [place] | | | | | | [address] | | | | + + + + + + + + | Specimen | + + | Blood | + + + + + + + | Performing | Address | City/State/Zipcode | Phone Number | | Organization | | | | + + + + + | [facility] | [address] | [place] [address] | [phone] | + + + + + POC Glucose (12/25/2019 9:10 PM PDT) + + + + + + | Component | Value | Ref Range | Performed | Pathologist | | | | | At | Signature | + + + + + + | Glucose, | 157 (H)Comment: Testing | 65 - 99 mg/dL | [facility] | | | POC | performed at [facility];888 | | LABORATORY | | | | [address];[place], [place] | | | | | | [address] | | | | + + + + + + + + | Specimen | + + | | + + + + + + + | Performing | Address | City/State/Zipcode | Phone Number | | Organization | | | | + + + + + | [facility] | [address] | [place] [address] | [phone] | + + + + + POC [...] | | | POC | performed at [facility];888 | | LABORATORY | | | | [address];[place] | | | | | | [address] | | | | + + + + + + + + | Specimen | + + | | + + + + + + + | Performing | Address | City/State/Zipcode | Phone Number | | Organization | | | | + + + + + | [facility] | [address] | [place] [address] | [phone] | + + + + + EEG (12/25/2019 3:04 PM PDT) + + + | Narrative | Performed At | + + + | Josh Montoya, Neurodiagnostic Tech 12/25/2019 3:04 PM | | | [facility] [address] | | [place] [address] Patient: Reilly Hamm ID: | | | [id number] : 1950 Age: 69 Gender: male Room #: 63516 | | | Physician: Luis E Malcolm [employer] Apprentice: Josh Montoya | | | Ref. Physician: [...] | | | POC | performed at [facility];888 | | LABORATORY | | | | [address];[place] | | | | | | [address] | | | | + + + + + + + + | Specimen | + + | | + + + + + + + | Performing | Address | City/State/Zipcode | Phone Number | | Organization | | | | + + + + + | [facility] | [address] | [place] [address] | [phone] | + + + + + POC [...] | | | POC | performed at [facility];[address] | | LABORATORY | | | | [address];[place], [place] | | | | | | [address] | | | | + + + + + + + + | Specimen | + + | | + + + + + + + | Performing | Address | City/State/Zipcode | Phone Number | | Organization | | | | + + + + + | [facility] | [address] | [place] [address] | [phone] | + + + + + Potassium (12/25/2019 12:31 PM PDT) + + + + + + | Component | Value | Ref Range | Performed | Pathologist | | | | | At | Signature | + + + + + + | K | 3.9Comment: Testing | 3.5 - 4.9 | [facility] | | | | performed at [facility];888 | mmol/L | LABORATORY | | | | [address];[place] | | | | | | [address] | | | | + + + + + + + + | Specimen | + + | Blood | + + + + + + + | Performing | Address | City/State/Zipcode | Phone Number | | Organization | | | | + + + + + | [facility] | [address] | [place] [address] | [phone] | + + + + + POC Glucose (12/25/2019 10:39 AM PDT) + + + + + + | Component | Value | Ref Range | Performed | Pathologist | | | | | At | Signature | + + + + + + | Glucose, | 104 (H)Comment: Testing | 65 - 99 mg/dL | [facility] | | | POC | performed at [facility];888 | | LABORATORY | | | | [address];[place], [place] | | | | | | [address] | | | | + + + + + + + + | Specimen | + + | | + + + + + + + | Performing | Address | City/State/Zipcode | Phone Number | | Organization | | | | + + + + + | [facility] | [address] | [place] [address] | [phone] | + + + + + POC [...] | | | POC | performed at [facility];[address] | | LABORATORY | | | | [address];[place], [place] | | | | | | [address] | | | | + + + + + + + + | Specimen | + + | | + + + + + + + | Performing | Address | City/State/Zipcode | Phone Number | | Organization | | | | + + + + + | [facility] | [address] | [place] [address] | [phone] | + + + + + Potassium (12/25/2019 7:49 AM PDT) + + + + + + | Component | Value | Ref Range | Performed | Pathologist | | | | | At | Signature | + + + + + + | K | 4.0Comment: Testing | 3.5 - 4.9 | [facility] | | | | performed at [facility];888 | mmol/L | LABORATORY | | | | [address];[place] | | | | | | [address] | | | | + + + + + + + + | Specimen | + + | Blood | + + + + + + + | Performing | Address | City/State/Zipcode | Phone Number | | Organization | | | | + + + + + | [facility] | [address] | [place] [address] | [phone] | + + + + + POC Glucose (12/25/2019 7:35 AM PDT) + + + + + + | Component | Value | Ref Range | Performed | Pathologist | | | | | At | Signature | + + + + + + | Glucose, | 105 (H)Comment: Testing | 65 - 99 mg/dL | [facility] | | | POC | performed at [facility];[address] | | LABORATORY | | | | [address];[place] | | | | | | [address] | | | | + + + + + + + + | Specimen | + + | | + + + + + + + | Performing | Address | City/State/Zipcode | Phone Number | | Organization | | | | + + + + + | [facility] | [address] | [place] [address] | [phone] | + + + + + POC [...] | | | POC | performed at [facility];[address] | | LABORATORY | | | | [address];[place], [place] | | | | | | [address] | | | | + + + + + + + + | Specimen | + + | | + + + + + + + | Performing | Address | City/State/Zipcode | Phone Number | | Organization | | | | + + + + + | [facility] | [address] | [place] [address] | [phone] | + + + + + XR [...] Grewal, Reilly Loo Date/Time: | | | 12/25/2019 6:09 AM | | + + + + + | Procedure Note | + + | Juan, [id number] - 12/25/2019 6:12 AM PDT | | [...] Testing | 65 - 99 mg/dL | [facility] | | | POC | performed at [facility];888 | | LABORATORY | | | | [address];[place] | | | | | | [address] | | | | + + + + + + + + | Specimen | + + | | + + + + + + + | Performing | Address | City/State/Zipcode | Phone Number | | Organization | | | | + + + + + | [facility] | [address] | [place] [address] | [phone] | + + + + + Magnesium (12/25/2019 4:18 AM PDT) + + + + + + | Component | Value | Ref Range | Performed | Pathologist | | | | | At | Signature | + + + + + + | Magnesium | 2.6 (H)Comment: Testing | 1.7 - 2.4 mg/dL | [facility] | | | | performed at [facility];[address] | | LABORATORY | | | | [address];[place], [place] | | | | | | [address] | | | | + + + + + + + + | Specimen | + + | Blood | + + + + + + + | Performing | Address | City/State/Zipcode | Phone Number | | Organization | | | | + + + + + | [facility] | [address] | [place] [address] | [phone] | + + + + + CBC [...] 0.02Comment: Testing | 0.00 - 0.10 | [facility] | | | Absolute | performed at [facility];888 | K/uL | LABORATORY | | | | [address];[place] | | | | | | [address] | | | | + + + + + + + + | Specimen | + + | Blood | + + + + + + + | Performing | Address | City/State/Zipcode | Phone Number | | Organization | | | | + + + + + | [facility] | [address] | [place] [address] | [phone] | + + + + + Basic [...] | | | | | performed at [facility];[address] | | | | | | [address] [facility];[place], [place] | | | | | | [address] | | | | + + + + + + + + | Specimen | + + | Blood | + + + + + + + | Performing | Address | City/State/Zipcode | Phone Number | | Organization | | | | + + + + + | [facility] | [address] | [place] [address] | [phone] | + + + + + POC [...] | | | POC | performed at [facility];[address] | | LABORATORY | | | | [address];[place], [place] | | | | | | [address] | | | | + + + + + + + + | Specimen | + + | | + + + + + + + | Performing | Address | City/State/Zipcode | Phone Number | | Organization | | | | + + + + + | [facility] | [address] | [place] [address] | [phone] | + + + + + POC Glucose (12/25/2019 3:07 AM PDT) + + + + + + | Component | Value | Ref Range | Performed | Pathologist | | | | | At | Signature | + + + + + + | Glucose, | 98Comment: Testing | 65 - 99 mg/dL | [facility] | | | POC | performed at [facility];[address] | | LABORATORY | | | | [address];[place] | | | | | | [address] | | | | + + + + + + + + | Specimen | + + | | + + + + + + + | Performing | Address | City/State/Zipcode | Phone Number | | Organization | | | | + + + + + | [facility] | [address] | [place] [address] | [phone] | + + + + + POC Glucose (12/25/2019 1:56 AM PDT) + + + + + + | Component | Value | Ref Range | Performed | Pathologist | | | | | At | Signature | + + + + + + | Glucose, | 99Comment: Testing | 65 - 99 mg/dL | [facility] | | | POC | performed at [facility];[address] | | LABORATORY | | | | [address];[place] | | | | | | [address] | | | | + + + + + + + + | Specimen | + + | | + + + + + + + | Performing | Address | City/State/Zipcode | Phone Number | | Organization | | | | + + + + + | [facility] | [address] | [place] [address] | [phone] | + + + + + Potassium (12/24/2019 11:55 PM PDT) + + + + + + | Component | Value | Ref Range | Performed | Pathologist | | | | | At | Signature | + + + + + + | K | 4.2Comment: Testing | 3.5 - 4.9 | [facility] | | | | performed at [facility];888 | mmol/L | LABORATORY | | | | [address];[place], [place] | | | | | | [address] | | | | + + + + + + + + | Specimen | + + | Blood | + + + + + + + | Performing | Address | City/State/Zipcode | Phone Number | | Organization | | | | + + + + + | [facility] | [address] | [place] [address] | [phone] | + + + + + POC Glucose (12/24/2019 11:52 PM PDT) + + + + + + | Component | Value | Ref Range | Performed | Pathologist | | | | | At | Signature | + + + + + + | Glucose, | 105 (H)Comment: Testing | 65 - 99 mg/dL | [facility] | | | POC | performed at [facility];[address] | | LABORATORY | | | | [address];[place], [place] | | | | | | [address] | | | | + + + + + + + + | Specimen | + + | | + + + + + + + | Performing | Address | City/State/Zipcode | Phone Number | | Organization | | | | + + + + + | [facility] | [address] | [place] [address] | [phone] | + + + + + POC Glucose (12/24/2019 9:53 PM PDT) + + + + + + | Component | Value | Ref Range | Performed | Pathologist | | | | | At | Signature | + + + + + + | Glucose, | 102 (H)Comment: Testing | 65 - 99 mg/dL | [facility] | | | POC | performed at [facility];[address] | | LABORATORY | | | | [address];[place] | | | | | | [address] | | | | + + + + + + + + | Specimen | + + | | + + + + + + + | Performing | Address | City/State/Zipcode | Phone Number | | Organization | | | | + + + + + | [facility] | [address] | [place] [address] | [phone] | + + + + + CT [...] | intracranial findings. Final Report Signed by: Terri, | | Prosper Steen M.D. Date/Time: 12/25/2019 [...] Procedure Note | + + | Juan, [id number] - 12/25/2019 2:10 AM PDT | | [...] Testing | 65 - 99 mg/dL | [facility] | | | POC | performed at [facility];[address] | | LABORATORY | | | | [address];[place] | | | | | | [address] | | | | + + + + + + + + | Specimen | + + | | + + + + + + + | Performing | Address | City/State/Zipcode | Phone Number | | Organization | | | | + + + + + | [facility] | [address] | [place] [address] | [phone] | + + + + + Potassium (12/24/2019 7:59 PM PDT) + + + + + + | Component | Value | Ref Range | Performed | Pathologist | | | | | At | Signature | + + + + + + | K | 4.5Comment: Testing | 3.5 - 4.9 | [facility] | | | | performed at [facility];888 | mmol/L | LABORATORY | | | | [address];[place], [place] | | | | | | [address] | | | | + + + + + + + + | Specimen | + + | Blood | + + + + + + + | Performing | Address | City/State/Zipcode | Phone Number | | Organization | | | | + + + + + | [facility] | [address] | [place] [address] | [phone] | + + + + + POC [...] | | | POC | performed at [facility];[address] | | LABORATORY | | | | [address];[place] | | | | | | [address] | | | | + + + + + + + + | Specimen | + + | | + + + + + + + | Performing | Address | City/State/Zipcode | Phone Number | | Organization | | | | + + + + + | [facility] | [address] | [place] [address] | [phone] | + + + + + POC Glucose (12/24/2019 6:49 PM PDT) + + + + + + | Component | Value | Ref Range | Performed | Pathologist | | | | | At | Signature | + + + + + + | Glucose, | 96Comment: Testing | 65 - 99 mg/dL | [place] | | | POC | performed at [facility];[address] | | LABORATORY | | | | [address];[place] | | | | | | [address] | | | | + + + + + + + + | Specimen | + + | | + + + + + + + | Performing | Address | City/State/Zipcode | Phone Number | | Organization | | | | + + + + + | [facility] | [address] | [place] [address] | [phone] | + + + + + Blood [...] | | | Arterial, | performed at [facility];[address] | | LABORATORY | | | POC | [address];[place], [place] | | | | | | [address] | | | | + + + + + + + + | Specimen | + + | | + + + + + + + | Performing | Address | City/State/Zipcode | Phone Number | | Organization | | | | + + + + + | [facility] | [address] | [place] [address] | [phone] | + + + + + POC Glucose (12/24/2019 5:54 PM PDT) + + + + + + | Component | Value | Ref Range | Performed | Pathologist | | | | | At | Signature | + + + + + + | Glucose, | 99Comment: Testing | 65 - 99 mg/dL | [place] | | | POC | performed at [facility];[address] | | LABORATORY | | | | [address];[place] | | | | | | [address] | | | | + + + + + + + + | Specimen | + + | | + + + + + + + | Performing | Address | City/State/Zipcode | Phone Number | | Organization | | | | + + + + + | [facility] | [address] | [place] [address] | [phone] | + + + + + POC Glucose (12/24/2019 5:03 PM PDT) + + + + + + | Component | Value | Ref Range | Performed | Pathologist | | | | | At | Signature | + + + + + + | Glucose, | 119 (H)Comment: Testing | 65 - 99 mg/dL | [facility] | | | POC | performed at [facility];[address] | | LABORATORY | | | | [address];[place], [place] | | | | | | [address] | | | | + + + + + + + + | Specimen | + + | | + + + + + + + | Performing | Address | City/State/Zipcode | Phone Number | | Organization | | | | + + + + + | [facility] | [address] | [place] [address] | [phone] | + + + + + Potassium (12/24/2019 3:57 PM PDT) + + + + + + | Component | Value | Ref Range | Performed | Pathologist | | | | | At | Signature | + + + + + + | K | 4.3Comment: Testing | 3.5 - 4.9 | [facility] | | | | performed at [facility];888 | mmol/L | LABORATORY | | | | [facility];[place], [place] | | | | | | [address] | | | | + + + + + + + + | Specimen | + + | Blood | + + + + + + + | Performing | Address | City/State/Zipcode | Phone Number | | Organization | | | | + + + + + | [facility] | [address] | [place] [address] | [phone] | + + + + + POC [...] | | | POC | performed at [facility];888 | | LABORATORY | | | | [address];[place] | | | | | | [address] | | | | + + + + + + + + | Specimen | + + | | + + + + + + + | Performing | Address | City/State/Zipcode | Phone Number | | Organization | | | | + + + + + | [facility] | [address] | [place] [address] | [phone] | + + + + + Activated clotting time (12/24/2019 3:26 PM PDT) + + + + + + | Component | Value | Ref Range | Performed | Pathologist | | | | | At | Signature | + + + + + + | Activated | 257 (H)Comment: Testing | 74 - 137 | [facility] | | | Clotting | performed at [facility];888 | seconds | LABORATORY | | | Time, POC | [address];[place] | | | | | | [address] | | | | + + + + + + + + | Specimen | + + | | + + + + + + + | Performing | Address | City/State/Zipcode | Phone Number | | Organization | | | | + + + + + | [facility] | [address] | [place] [address] | [phone] | + + + + + Blood [...] | | | Arterial, | performed at [facility];888 | | LABORATORY | | | POC | [facility];[place], [place] | | | | | | [address] | | | | + + + + + + + + | Specimen | + + | | + + + + + + + | Performing | Address | City/State/Zipcode | Phone Number | | Organization | | | | + + + + + | [facility] | [address] | [place] [address] | [phone] | + + + + + POC [...] | | | POC | performed at [facility];[address] | | LABORATORY | | | | [address];[place] | | | | | | [address] | | | | + + + + + + + + | Specimen | + + | | + + + + + + + | Performing | Address | City/State/Zipcode | Phone Number | | Organization | | | | + + + + + | [facility] | [address] | [place] [address] | [phone] | + + + + + XR [...] | volumes. Final Report Signed by: Fernando Nathan, Trevon Sign | | | Date/Time: 12/24/2019 1:54 [...] Procedure Note | + + | Juan, [id number] - 12/24/2019 1:58 PM PDT | | [...] 3 (H) | 0.0 - 2.0 | [facility] | | | Deficit | | mmol/L | LABORATORY | | | mmol/L | | | | | + + + + + + | SO2, | 100 (H)Comment: Testing | 95 - 98 % | [facility] | | | Arterial, | performed at [facility];888 | | LABORATORY | | | POC | [address];[place] | | | | | | [address] | | | | + + + + + + + + | Specimen | + + | | + + + + + + + | Performing | Address | City/State/Zipcode | Phone Number | | Organization | | | | + + + + + | [facility] | [address] | [place] [address] | [phone] | + + + + + POC [...] | | | POC | performed at [facility];888 | | LABORATORY | | | | [address];[place] | | | | | | [address] | | | | + + + + + + + + | Specimen | + + | | + + + + + + + | Performing | Address | City/State/Zipcode | Phone Number | | Organization | | | | + + + + + | [facility] | [address] | [place] [address] | [phone] | + + + + + PTT (12/24/2019 1:28 PM PDT) + + + + + + | Component | Value | Ref Range | Performed | Pathologist | | | | | At | Signature | + + + + + + | PTT | 32Comment: Testing | 23 - 32 seconds | [facility] | | | | performed at [facility];888 | | LABORATORY | | | | [address];[place] | | | | | | [address] | | | | + + + + + + + + | Specimen | + + | Blood | + + + + + + + | Performing | Address | City/State/Zipcode | Phone Number | | Organization | | | | + + + + + | [facility] | [address] [facility] | [place] [address] | [phone] | + + + + + Protime [...] | | | | | performed at [facility];888 | | | | | | [address];[place], [place] | | | | | | [address] | | | | + + + + + + + + | Specimen | + + | Blood | + + + + + + + | Performing | Address | City/State/Zipcode | Phone Number | | Organization | | | | + + + + + | [facility] | [address] | [place] [address] | [phone] | + + + + + Magnesium (12/24/2019 1:28 PM PDT) + + + + + + | Component | Value | Ref Range | Performed | Pathologist | | | | | At | Signature | + + + + + + | Magnesium | 3.1 (H)Comment: Testing | 1.7 - 2.4 mg/dL | [facility] | | | | performed at [facility];[address] | | LABORATORY | | | | [address];[place] | | | | | | [address] | | | | + + + + + + + + | Specimen | + + | Blood | + + + + + + + | Performing | Address | City/State/Zipcode | Phone Number | | Organization | | | | + + + + + | [facility] | [address] | [place] [address] | [phone] | + + + + + Fibrinogen (12/24/2019 1:28 PM PDT) + + + + + + | Component | Value | Ref Range | Performed | Pathologist | | | | | At | Signature | + + + + + + | Fibrinogen | 292Comment: Testing | 200 - 450 mg/dL | [facility] | | | | performed at [facility];8 | | LABORATORY | | | | [address];[place] | | | | | | [address] | | | | + + + + + + + + | Specimen | + + | Blood | + + + + + + + | Performing | Address | City/State/Zipcode | Phone Number | | Organization | | | | + + + + + | [facility] | [address] | [place] [address] | [phone] | + + + + + CBC [...] at | | | | | | [facility];[address] [place] [address] | | | | | | Blvd;[place] [address] | | | | + + + + + + + + | Specimen | + + | Blood | + + + + + + + | Performing | Address | City/State/Zipcode | Phone Number | | Organization | | | | + + + + + | [facility] | [address] | [place] [address] | [phone] | + + + + + Basic [...] | >60Comment: GFR <60: | >60 | [facility] | | | GFR | CHRONIC [...] | | | | | performed at [facility] | | | | | | [facility];[place], [place] | | | | | | [address] | | | | + + + + + + + + | Specimen | + + | Blood | + + + + + + + | Performing | Address | City/State/Zipcode | Phone Number | | Organization | | | | + + + + + | [facility] | [address] | [place] [address] | [phone] | + + + + + ECHO [...] SUSHIL | | | JARAD Patient Number [id number] Date of Study | | | 12/24/2019 Visit Number [id number] Referring | | | Physician SAMUEL Gracia | | | Waste Handling Technician Number Date of 1950 | | | Interpreting Nimesh Castillo MD | | | Physician Age 69 year(s) | | | 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 Procedure DateDate: | | | 12/24/2019 Start: 08:34 AM Study Location: [facility] Quality: | | | Adequate visualization [...] LAE. 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 Mild [...] | demonstrates lipomatous hypertrophy. (+)small PFO with iasi-my-wozai | | | shunt via CFM. Left [...] Aorta: 2.48 cm | | | Miscellaneous YurkitmpFhax-df-idpvlpna atherosclerosis of thoracic | | | aorta. [...] Pleura Pleural Effusion Findings | | | Rvqkd-os-qizujrif left pleural effusion noted. Valves Mitral Valve [...] Valve Findings AV annulus = 21mm. Tri-cuspid little shell tribe valve. Mild cusp & | | | [...] | | | |Miscellaneous Findings | | |Htol-kv-lahtxgzw atherosclerosis of thoracic aorta. | | | [...] | Pleural Effusion Findings | | | Qkpbj-sr-qxytmrao left pleural effusion noted. | | | [...] | | AV annulus = 21mm. Tri-cuspid little shell tribe valve. 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 Mild [...] lipomatous hypertrophy. | | (+)small PFO with klvp-lt-mwtge shunt via CFM. | | | | [...] | | | Miscellaneous Findings | | Cbsp-gn-xsucqisr atherosclerosis of thoracic aorta. | | | [...] | | Pleural Effusion Findings | | Srocw-dl-zsmqrifv left pleural effusion noted. | | | [...] | | AV annulus = 21mm. Tri-cuspid little shell tribe valve. Mild cusp & annular | | [...] | | | Arterial, | performed at [facility];888 | | LABORATORY | | | POC | [address];[place] | | | | | | [address] | | | | + + + + + + + + | Specimen | + + | | + + + + + + + | Performing | Address | City/State/Zipcode | Phone Number | | Organization | | | | + + + + + | [facility] | [address] | [place] [address] | [phone] | + + + + + POC [...] | | | POC | performed at [facility];888 | g/dL | LABORATORY | | | | [address];[place] | | | | | | [address] | | | | + + + + + + + + | Specimen | + + | | + + + + + + + | Performing | Address | City/State/Zipcode | Phone Number | | Organization | | | | + + + + + | [facility] | [address] | [place] [address] | [phone] | + + + + + POC [...] | | | Arterial, | performed at [facility];888 | | LABORATORY | | | POC | [address] [facility];[place] | | | | | | [address] | | | | + + + + + + + + | Specimen | + + | | + + + + + + + | Performing | Address | City/State/Zipcode | Phone Number | | Organization | | | | + + + + + | [facility] | [address] | [place] [address] | [phone] | + + + + + SHARITA ABAD Arterial (12/24/2019 11:40 AM PDT) + + [...] | | | POC | performed at [facility];888 | g/dL | LABORATORY | | | | [address];[place], [place] | | | | | | [address] | | | | + + + + + + + + | Specimen | + + | | + + + + + + + | Performing | Address | City/State/Zipcode | Phone Number | | Organization | | | | + + + + + | [facility] | [address] | [place] [address] | [phone] | + + + + + POC ISKYLEIGH, CG8, Arterial (12/24/2019 11:09 AM PDT) + [...] | | | POC | performed at [facility];888 | g/dL | LABORATORY | | | | [address];[place], [place] | | | | | | [address] | | | | + + + + + + + + | Specimen | + + | | + + + + + + + | Performing | Address | City/State/Zipcode | Phone Number | | Organization | | | | + + + + + | [facility] | [address] | [place] [address] | [phone] | + + + + + POC CG 4, ISTAT Arterial (12/24/2019 10:42 AM PDT) + + + + + + | Component | Value | Ref Range | Performed | Pathologist | | | | | At | Signature | + + + + + + | pH, | 7.364Comment: This test | 7.350 - 7.450 | [facility] | | | Arterial, | was [...] | | | Arterial, | performed at [facility];888 | | LABORATORY | | | POC | [address];[place] | | | | | | [address] | | | | + + + + + + + + | Specimen | + + | | + + + + + + + | Performing | Address | City/State/Zipcode | Phone Number | | Organization | | | | + + + + + | [facility] | [address] | [place] [address] | [phone] | + + + + + POC KAROL PADILLA8, Arterial (12/24/2019 10:38 AM PDT) + + [...] | | | POC | performed at [facility];888 | g/dL | LABORATORY | | | | [address];[place], [place] | | | | | | [address] | | | | + + + + + + + + | Specimen | + + | | + + + + + + + | Performing | Address | City/State/Zipcode | Phone Number | | Organization | | | | + + + + + | [facility] | [address] [facility] | [place] [address] | [phone] | + + + + + Surgical [...] brown-brothers to hemorrhagic area. | | | Skip Locator sections of each are submitted in cassette [...] | | professional interpretation was performed by [facility], | | | [address] (Medical | | | Director: Josh Bob M.D.; CLIA#: [id number]).The technical | | | component was performed by [facility], [address] [place] [address], | | | [place] [address] ([employer] Application Developer: Fadumo Triana MD; CLIA# | | | [id number]). Diagnostician: Josh Bob | | | MDPathologistElectronically [...] RESULT | Testing performed at | | [facility] | | | | TC, [address] [facility] | | LABORATORY | | | | [facility], [place], [place] | | | | | | [id number]: Testing | | | | | | performed at [facility], [address] | | | | | | [facility], | | | | | | [place] [address] | | | | + + + + + + + + | Specimen | + + | Tissue - Heart valve | | tissue (specimen) | + + + + + + + | Performing | Address | City/State/Zipcode | Phone Number | | Organization | | | | + + + + + | [facility] | [address] | [place] [address] | [phone] | + + + + + POC [...] | | | POC | performed at [facility];888 | g/dL | LABORATORY | | | | [address];[place], [place] | | | | | | [address] | | | | + + + + + + + + | Specimen | + + | | + + + + + + + | Performing | Address | City/State/Zipcode | Phone Number | | Organization | | | | + + + + + | [facility] | [address] | [place] [address] | [phone] | + + + + + POC ISTAT, CG8, Venous (12/24/2019 10:04 AM PDT) + + + + + + | Component | Value | Ref Range | Performed | Pathologist | | | | | At | Signature | + + + + + + | pH, Venous, | 7.283 (L) | 7.310 - 7.410 | [facility] | | | POC | | [...] | | | POC | performed at [facility];888 | g/dL | LABORATORY | | | | [address];[place] | | | | | | [address] | | | | + + + + + + + + | Specimen | + + | | + + + + + + + | Performing | Address | City/State/Zipcode | Phone Number | | Organization | | | | + + + + + | [facility] | [address] | [place] [address] | [phone] | + + + + + SHARITA ABAD Arterial (12/24/2019 9:39 AM PDT) + + [...] (LL)Comment: Testing | 13.7 - 16.7 | [facility] | | | POC | performed at [facility];888 | g/dL | LABORATORY | | | | [address];[place], [place] | | | | | | [address] | | | | + + + + + + + + | Specimen | + + | | + + + + + + + | Performing | Address | City/State/Zipcode | Phone Number | | Organization | | | | + + + + + | [facility] | [address] | [place] [address] | [phone] | + + + + + POC RANDY CG8, Arterial (12/24/2019 9:16 AM PDT) + [...] | | | POC | performed at [facility];888 | g/dL | LABORATORY | | | | [address];[place] | | | | | | [address] | | | | + + + + + + + + | Specimen | + + | | + + + + + + + | Performing | Address | City/State/Zipcode | Phone Number | | Organization | | | | + + + + + | [facility] | [address] | [place] [address] | [phone] | + + + + + POC [...] | | | Arterial, | performed at [facility];888 | | LABORATORY | | | POC | [facility];[place], [place] | | | | | | [address] | | | | + + + + + + + + | Specimen | + + | | + + + + + + + | Performing | Address | City/State/Zipcode | Phone Number | | Organization | | | | + + + + + | [facility] | [address] | [place] [address] | [phone] | + + + + + POC ISTAT, CG8, Arterial (12/24/2019 8:34 AM PDT) + + + + + + | Component | Value | Ref Range | Performed | Pathologist | | | | | At | Signature | + + + + + + | pH, | 7.441 | 7.350 - 7.450 | [facility] | [...] | | | POC | performed at [facility];888 | g/dL | LABORATORY | | | | [address];[place] | | | | | | [address] | | | | + + + + + + + + | Specimen | + + | | + + + + + + + | Performing | Address | City/State/Zipcode | Phone Number | | Organization | | | | + + + + + | [facility] | [address] | [place] [address] | [phone] | + + + + + POC Glucose (12/24/2019 7:22 AM PDT) + + + + + + | Component | Value | Ref Range | Performed | Pathologist | | | | | At | Signature | + + + + + + | Glucose, | 119 (H)Comment: Testing | 65 - 99 mg/dL | [facility] | | | POC | performed at [facility];[address] | | LABORATORY | | | | [address];[place], [place] | | | | | | [address] | | | | + + + + + + + + | Specimen | + + | | + + + + + + + | Performing | Address | City/State/Zipcode | Phone Number | | Organization | | | | + + + + + | [facility] | [address] | [place] [address] | [phone] | + + + + + Red [...] BANK | Testing performed at | | [facility] | | | COMMENT | [facility];[address] | | LABORATORY | | | | [address];[place] [address] | | | | + + + + + + + + | Specimen | + + | | + + + + + + + | Performing | Address | City/State/Zipcode | Phone Number | | Organization | | | | + + + + + | [facility] | [address] | [place] [address] | [phone] | + + + + + Coronavirus [...] | | | | | performed at [facility] | | | | | | [address];[place], [place] | | | | | | [address] | | | | + + + + + + + + | Specimen | + + | Tissue - Entire | | nasopharynx (body | | structure) | + + + + + + + | Performing | Address | City/State/Zipcode | Phone Number | | Organization | | | | + + + + + | [facility] | [address] | [place] [address] | [phone] | + + + + + Basic [...] | | | | | performed at [facility], [address] | | | | | | [address], | | | | | | [place] [address] | | | | + + + + + + + + | Specimen | + + | Blood | + + + + + + + | Performing | Address | City/State/Zipcode | Phone Number | | Organization | | | | + + + + + | [facility] | [address] | [place] [address] | [phone] | + + + + + CBC [...] | | | Absolute | performed at [facility], [address] | K/uL | LABORATORY | | | | [facility], | | | | | | [place] [address] | | | | + + + + + + + + | Specimen | + + | Blood | + + + + + + + | Performing | Address | City/State/Zipcode | Phone Number | | Organization | | | | + + + + + | [facility] | [address] | [place] [address] | [phone] | + + + + + Urinalysis [...] - 1.030 | [facility] | | | [place], | | | LABORATORY | | | [...] | | | Urine | performed at [facility] | | LABORATORY | | | | [address];[place], [place] | | | | | | [address] | | | | + + + + + + + + | Specimen | + + | Urine | + + + + + + + | Performing | Address | City/State/Zipcode | Phone Number | | Organization | | | | + + + + + | [facility] | [address] | [place] [address] | [phone] | + + + + + XR [...] Procedure Note | + + | Juan, [id number] - 12/23/2019 10:03 AM PDT | | [...] + + + | BB BAND | [id number] | | [facility] | | | | | | LABORATORY | | + + + + + + | UNIT # | [id number] | | [facility] | | | | [...] + + + | UNIT # | [id number] | | [facility] | | | | [...] + + + | UNIT # | [id number] | | [facility] | | | | [...] + + + | UNIT # | [id number] | | [facility] | | | | [...] | | | RESULT | performed at [facility];[address] | | LABORATORY | | | | [address];[place] | | | | | | [address] | | | | + + + + + + + + | Specimen | + + | Blood | + + + + + + + | Performing | Address | City/State/Zipcode | Phone Number | | Organization | | | | + + + + + | [facility] | [address] | [place] [address] | [phone] | + + + + + Jennifer SWIFT (12/23/2019 8:40 AM PDT) + + + + + + | Component | Value | Ref Range | Performed | Pathologist | | | | | At | Signature | + + + + + + | INR | 1.1Comment: REFERENCE | | [facility] | | | | RANGE:0.9 - [...] | | | | | performed at [facility] | | | | | | [address] [facility];[place], [place] | | | | | | [address] | | | | + + + + + + + + | Specimen | + + | Blood | + + + + + + + | Performing | Address | City/State/Zipcode | Phone Number | | Organization | | | | + + + + + | [facility] | [address] | [place] [address] | [phone] | + + + + + Basic [...] | | | | | performed at [facility] | | | | | | [facility];[place], [place] | | | | | | [address] | | | | + + + + + + + + | Specimen | + + | Blood | + + + + + + + | Performing | Address | City/State/Zipcode | Phone Number | | Organization | | | | + + + + + | [facility] | [address] | [place] [address] | [phone] | + + + + + CBC [...] | | | Absolute | performed at [facility];[address] | K/uL | LABORATORY | | | | [address];[place], [place] | | | | | | [address] | | | | + + + + + + + + | Specimen | + + | Blood | + + + + + + + | Performing | Address | City/State/Zipcode | Phone Number | | Organization | | | | + + + + + | [facility] | [address] | [place] [address] | [phone] | + + + + + XR [...] | | | Report Signed by: Fernando Madrid Robert Sign Date/Time: 12/22/2019 6:22 | | | [...] Procedure Note | + + | Juan, [id number] - 12/22/2019 6:25 PM PDT | | [...] | | | Final Report Signed by: Fernanod Madrid Robert | | Sign Date/Time: 12/22/2019 [...] | | | | | performed at [facility], [address] | | | | | | [facility], | | | | | | [place] [address] | | | | + + + + + + + + | Specimen | + + | Blood | + + + + + + + | Performing | Address | City/State/Zipcode | Phone Number | | Organization | | | | + + + + + | [facility] | [address] | [place] [address] | [phone] | + + + + + CBC [...] at | | | | | | [facility], [address] [facility] | | | | | | [place] | | | | | | [address] | | | | + + + + + + + + | Specimen | + + | Blood | + + + + + + + | Performing | Address | City/State/Zipcode | Phone Number | | Organization | | | | + + + + + | [facility] | [address] | [place] [address] | [phone] | + + + + + Basic [...] 50 (L)Comment: GFR <60: | >60 | [facility] | | | GFR | CHRONIC [...] | | | | | performed at [facility], [address] | | | | | | [facility], | | | | | | [place] [address] | | | | + + + + + + + + | Specimen | + + | Blood | + + + + + + + | Performing | Address | City/State/Zipcode | Phone Number | | Organization | | | | + + + + + | [facility] | [address] | [place] [address] | [phone] | + + + + + CBC [...] | | | | | performed at [facility], [address] | | | | | [address], | | | | | | [place] [address] | | | | + + + + + + + + | Specimen | + + | Blood | + + + + + + + | Performing | Address | City/State/Zipcode | Phone Number | | Organization | | | | + + + + + | [facility] | [address] | [place] [address] | [phone] | + + + + + CT [...] Procedure Note | + + | Juan, [id number] - 12/20/2019 2:58 PM PDT | | [...] | | | POC | performed at [facility];[address] | | LABORATORY | | | | [address];[place] | | | | | | [address] | | | | + + + + + + + + | Specimen | + + | | + + + + + + + | Performing | Address | City/State/Zipcode | Phone Number | | Organization | | | | + + + + + | [facility] | [address] | [place] [address] | [phone] | + + + + + ECG [...] | | | | JEET TEJEDA MD ([id number]) | | | | | | on [...] | | | Absolute | performed at [facility];888 | K/uL | LABORATORY | | | | [address];[place] | | | | | | [address] | | | | + + + + + + + + | Specimen | + + | Blood | + + + + + + + | Performing | Address | City/State/Zipcode | Phone Number | | Organization | | | | + + + + + | [facility] | [address] | [place] [address] | [phone] | + + + + + Basic [...] | | | | | | MDRD [facility] traceable | | | | | | equation.Testing | | | | | | performed at [facility];88 | | | | | | [facility];[place], [place] | | | | | | [address] | | | | + + + + + + + + | Specimen | + + | Blood | + + + + + + + | Performing | Address | City/State/Zipcode | Phone Number | | Organization | | | | + + + + + | [facility] | [address] | [place] [address] | [phone] | + + + + + CV [...] | | Procedures Performed Left heart catheterization (03914.26) with | | | selective bilateral coronary angiography, left ventricular angiograpy. | | | Procedure Summary Access site: right radial artery | | | Anticoagulation: heparin Antiplatelet therapy: aspirin 81 mg | | | Closure: Radial band/closure device Clinical IndicationsThis is a 69 | | | y.o. year old male transferred to [facility] from [facility] in | | | [place] due to mitral endocarditis, blood cultures positive [...] (ASD), measuring only 2.5 mm, with minimal dqci-rv-cudhr | | | shunting. There is no evidence of kcfyx-ux-omuu shunting on the | | | intravenous bubble contrast study. | | |bwjbr-wu-czjh shunting on the intravenous bubble contrast study. [...] [facility] | | | | performed at [facility];8 | | LABORATORY | | | | [address];[place], [place] | | | | | | [address] | | | | + + + + + + + + | Specimen | + + | Blood | + + + + + + + | Performing | Address | City/State/Zipcode | Phone Number | | Organization | | | | + + + + + | [facility] | [address] | [place] [address] | [phone] | + + + + + Gentamicin, Trough (12/19/2019 9:37 AM PDT) + + + + + + | Component | Value | Ref Range | Performed | Pathologist | | | | | At | Signature | + + + + + + | GENTAMICIN | 0.6Comment: Testing | <2.0 ug/mL | [facility] | | | TROUGH | performed at [facility];888 | | LABORATORY | | | | [address];[place] | | | | | | [address] | | | | + + + + + + + + | Specimen | + + | Blood | + + + + + + + | Performing | Address | City/State/Zipcode | Phone Number | | Organization | | | | + + + + + | [facility] | [address] | [place] [address] | [phone] | + + + + + CBC [...] | | | Absolute | performed at [facility];[address] | K/uL | LABORATORY | | | | [address];[place], [place] | | | | | | [address] | | | | + + + + + + + + | Specimen | + + | Blood | + + + + + + + | Performing | Address | City/State/Zipcode | Phone Number | | Organization | | | | + + + + + | [facility] | [address] | [place] [address] | [phone] | + + + + + Basic [...] | 8.9 | 8.5 - 10.5 | [facility] | [...] | | | | | performed at [facility];[address] | | | | | | [facility];[place], [place] | | | | | | [address] | | | | + + + + + + + + | Specimen | + + | Blood | + + + + + + + | Performing | Address | City/State/Zipcode | Phone Number | | Organization | | | | + + + + + | [facility] | [address] | [place] [address] | [phone] | + + + + + MRI [...] 2. 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 [...] 2. 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 including a 1.1 x | | [...] Testing | 30 - 400 ng/mL | [facility] | | | | performed at [facility], | | LABORATORY | | | | [address], | | | | | | [facility] [address] | | | | + + + + + + + + | Specimen | + + | Blood | + + + + + + + | Performing | Address | City/State/Zipcode | Phone Number | | Organization | | | | + + + + + | [facility] | [address] | [place] [address] | [phone] | + + + + + Iron [...] | | | | | [place] [address] | | | | + + + + + + + + | Specimen | + + | Blood | + + + + + + + | Performing | Address | City/State/Zipcode | Phone Number | | Organization | | | | + + + + + | [facility] | [address] | [place] [address] | [phone] | + + + + + Haptoglobin (12/18/2019 5:52 PM PDT) + + + + + + | Component | Value | Ref Range | Performed | Pathologist | | | | | At | Signature | + + + + + + | Haptoglobin | 281Comment: Testing | 34 - 355 mg/dL | [facility] | | | | performed at [facility], | | LABORATORY | | | | [address], | | | | | | [facility] [address] | | | | + + + + + + + + | Specimen | + + | Blood | + + + + + + + | Performing | Address | City/State/Zipcode | Phone Number | | Organization | | | | + + + + + | [facility] | [address] | [place] [address] | [phone] | + + + + + Hemoglobin [...] [facility] | | | | performed at [facility] | | LABORATORY | | | | [address];[place], [place] | | | | | | [address] | | | | + + + + + + + + | Specimen | + + | Blood | + + + + + + + | Performing | Address | City/State/Zipcode | Phone Number | | Organization | | | | + + + + + | [facility] | [address] | [place] [address] | [phone] | + + + + + Fecal Hemoglobin (12/18/2019 5:30 PM PDT) + + + + + + | Component | Value | Ref Range | Performed | Pathologist | | | | | At | Signature | + + + + + + | FECAL | NEGATIVEComment: Testing | NEG | [facility] | | | OCCULT BLD | performed at [facility];[address] | | LABORATORY | | | | [address];[place], [place] | | | | | | [address] | | | | + + + + + + + + | Specimen | + + | | + + + + + + + | Performing | Address | City/State/Zipcode | Phone Number | | Organization | | | | + + + + + | [facility] | [address] | [place] [address] | [phone] | + + + + + CT [...] Procedure Note | + + | Juan, [id number] - 12/18/2019 6:01 PM PDT | | [...] NPI- | | | | | | [id number] | | | | | | [facility] | | | | | | [facility] | | | | | | [place] [address] | | | | + + + [...] | | | | | | [facility] | | | | | | [place] | | | | | | TMAIA.Testing performed at | | | | | | [facility], [address], | | | | | | [place] [address], [facility] | | | | | | [address] | | | | + + + + + + + + | Specimen | + + | | + + + + + + + | Performing | Address | City/State/Zipcode | Phone Number | | Organization | | | | + + + + + | [facility] | [address] | [place] [address] | [phone] | + + + + + TSH, Reflex Free T4 (12/18/2019 11:52 AM PDT) + + + + + + | Component | Value | Ref Range | Performed | Pathologist | | | | | At | Signature | + + + + + + | TSH | 1.380Comment: Testing | 0.450 - 5.100 | [facility] | | | | performed at [facility];888 | uIU/mL | LABORATORY | | | | [address];[place] | | | | | | [address] | | | | + + + + + + + + | Specimen | + + | Blood | + + + + + + + | Performing | Address | City/State/Zipcode | Phone Number | | Organization | | | | + + + + + | [facility] | [address] | [place] [address] | [phone] | + + + + + Retic Count (12/18/2019 11:52 AM PDT) + + + + + + | Component | Value | Ref Range | Performed | Pathologist | | | | | At | Signature | + + + + + + | % | 4.7 (H)Comment: Testing | 0.4 - 2.7 % | [facility] | | | Reticulocyt | performed at L, [address] | | LABORATORY | | | e Count | [facility], | | | | | | [place] [address] | | | | + + + + + + + + | Specimen | + + | Blood | + + + + + + + | Performing | Address | City/State/Zipcode | Phone Number | | Organization | | | | + + + + + | [facility] | [address] | [place] [address] | [phone] | + + + + + Lactate Dehydrogenase (12/18/2019 11:52 AM PDT) + + + + + + | Component | Value | Ref Range | Performed | Pathologist | | | | | At | Signature | + + + + + + | LDH TOTAL | 244Comment: Testing | 120 - 246 U/L | [facility] | | | | performed at [facility];[address] | | LABORATORY | | | | [address];[place], [place] | | | | | | [address] | | | | + + + + + + + + | Specimen | + + | Blood | + + + + + + + | Performing | Address | City/State/Zipcode | Phone Number | | Organization | | | | + + + + + | [facility] | [address] | [place] [address] | [phone] | + + + + + Red [...] | [facility] | | | COMMENT | [facility];[address] | | LABORATORY | | | | [address];[place] [address] | | | | + + + + + + + + | Specimen | + + | | + + + + + + + | Performing | Address | City/State/Zipcode | Phone Number | | Organization | | | | + + + + + | [facility] | [address] | [place] [address] | [phone] | + + + + + Red [...] | [facility] | | | COMMENT | [address] | | LABORATORY | | | | [address];[place] [address] | | | | + + + + + + + + | Specimen | + + | | + + + + + + + | Performing | Address | City/State/Zipcode | Phone Number | | Organization | | | | + + + + + | [facility] | [address] | [place] [address] | [phone] | + + + + + Type [...] + + + | BB BAND | [id number] | | [facility] | | | | | | LABORATORY | | + + + + + + | UNIT # | [id number] | | [facility] | | | | [...] + + + | UNIT # | [id number] | | [facility] | | | | [...] + + + | UNIT # | [id number] | | [facility] | | | | [...] | | | RESULT | performed at [facility];[address] | | LABORATORY | | | | [address];[place] | | | | | | [address] | | | | + + + + + + + + | Specimen | + + | Blood | + + + + + + + | Performing | Address | City/State/Zipcode | Phone Number | | Organization | | | | + + + + + | [facility] | [address] [facility] | [place] [address] | [phone] | + + + + + Protime INR (12/18/2019 5:54 AM PDT) + + + + + + | Component | Value | Ref Range | Performed | Pathologist | | | | | At | Signature | + + + + + + | INR | 1.0Comment: REFERENCE | | [facility] | | | | RANGE:0.9 - [...] | | | | | performed at [facility];[address] | | | | | | [facility];[place] | | | | | | [address] | | | | + + + + + + + + | Specimen | + + | Blood | + + + + + + + | Performing | Address | City/State/Zipcode | Phone Number | | Organization | | | | + + + + + | [facility] | [address] | [place] [address] | [phone] | + + + + + CBC [...] | LABORATORY | | | | [address] [address] [id number] VL | | | | | | [...] LABORATORY | | | | performed at [facility], [address] | | | | | [address], | | | | | | [place] [address] | | | | + + + + + + + + | Specimen | + + | Blood | + + + + + + + | Performing | Address | City/State/Zipcode | Phone Number | | Organization | | | | + + + + + | [facility] | [address] | [place] [address] | [phone] | + + + + + Basic [...] | >60Comment: GFR <60: | >60 | [facility] | | | GFR | CHRONIC [...] | | | | | | MDRD [facility] traceable | | | | | | equation.Testing | | | | | | performed at [facility], [address] | | | | | | [facility], | | | | | | [place] [address] | | | | + + + + + + + + | Specimen | + + | Blood | + + + + + + + | Performing | Address | City/State/Zipcode | Phone Number | | Organization | | | | + + + + + | [facility] | [address] | [place] [address] | [phone] | + + + + + Vancomycin Level (12/18/2019 5:54 AM PDT) + + + + + + | Component | Value | Ref Range | Performed | Pathologist | | | | | At | Signature | + + + + + + | Vancomycin | 11.1Comment: Testing | ug/mL | [facility] | | | Random, | performed at [facility];[address] | | LABORATORY | | | Serum | [address];[place], [place] | | | | | | [address] | | | | + + + + + + + + | Specimen | + + | Blood | + + + + + + + | Performing | Address | City/State/Zipcode | Phone Number | | Organization | | | | + + + + + | [facility] | [address] | [place] [address] | [phone] | + + + + + CBC [...] 0.02Comment: Testing | 0.00 - 0.10 | [facility] | | | Absolute | performed at [facility];[address] | K/uL | LABORATORY | | | | [address];[place] | | | | | | [address] | | | | + + + + + + + + | Specimen | + + | Blood | + + + + + + + | Performing | Address | City/State/Zipcode | Phone Number | | Organization | | | | + + + + + | [facility] | [address] | [place] [address] | [phone] | + + + + + XR [...] Procedure Note | + + | Juan, [id number] - 12/17/2019 4:34 PM PDT | | [...] | | | | | performed at [facility], [address] | | | | | | [facility], | | | | | | [place] [address] | | | | + + + + + + + + | Specimen | + + | Blood | + + + + + + + | Performing | Address | City/State/Zipcode | Phone Number | | Organization | | | | + + + + + | [facility] | [address] | [place] [address] | [phone] | + + + + + Coronavirus [...] | | | | | performed at [facility] | | | | | | [facility];[place], [place] | | | | | | [address] | | | | + + + + + + + + | Specimen | + + | | + + + + + + + | Performing | Address | City/State/Zipcode | Phone Number | | Organization | | | | + + + + + | [facility] | [address] | [place] [address] | [phone] | + + + + + Culture, [...] Special | Testing performed at | | [facility] | | | Requests | [address] | | LABORATORY | | | | [address];[place] [address] | | | | + + + + + + | RESULT | NO GROWTH 6 DAYS | | [facility] | | | | | | LABORATORY | | + + + + + + | RESULT | Testing performed at | | [facility] | | | | [facility], [address] | | LABORATORY | | | | [place], [place] | | | | | | [address]Dwvexgt: Testing | | | | | | performed at [facility], [address] | | [address] | | [address], [place], [place] | | | | | | [address] | | | | + + + + + + + + | Specimen | + + | Blood - Peripheral | | blood specimen | | (specimen) | + + + + + + + | Performing | Address | City/State/Zipcode | Phone Number | | Organization | | | | + + + + + | [facility] | [address] | [place] [address] | [phone] | + + + + + Culture, [...] | [facility] | | | Requests | [facility] [address] | | LABORATORY | | | | [address]vd;[place] [address] | | | | + + + + + + | RESULT | NO GROWTH 6 DAYS | | [facility] | | | | | | LABORATORY | | + + + + + + | RESULT | Testing performed at | | [facility] | | | | [facility], [address] | | LABORATORY | | | | [place] | | | | | | [address]Cscxjew: Testing | | | | | | performed at [facility], [address] | | [address] | | [address], [place], [place] | | | | | | [address] | | | | + + + + + + + + | Specimen | + + | Blood - Peripheral | | blood specimen | | (specimen) | + + + + + + + | Performing | Address | City/State/Zipcode | Phone Number | | Organization | | | | + + + + + | [facility] | [address] | [place] [address] | [phone] | + + + + + documented [...] CONTINUOUS PRN, hypoglycemia, | | | Starting Breana 12/25/19 at 1512, | | | Start [...] | | | | | dose on Sun12/25/19 at 1700, | | | | | [...] | | | | | | | 0532-6375 Use NIGHT DOSE for | | | | | | | doses scheduled: HS, | | | | | | | Nighttime 5123-3557 If the BG is | | | [...] | | | | | | | Breana 12/25/19 at 0500 | | | | [...] mg | | | | Oral, NIGHTLY PRNGabby, | | 20 9:20 | | | [...]
--- OUTSIDE RECORDS SUMMARY | ~2020-01-05 | XMS | Encounter Summary ---
Demographics + + + | Address | [address] | | | [place] [address] | + + + | Home Phone | | + + + | Preferred Language | Unknown | + + + | Marital Status | | + + + | Rastafarian Affiliation | Unknown | + + + | Race | Unknown | + + + | Ethnic Group | Not or | + + + Author + + + | Author | [facility] | | | and [place] | + + + | Organization | [facility] | | [...] | | | | | [place] [address] | | + + + + + | Alvaro Newton | ECON | Unknown | | + + + + + Care Team Providers + +------+ + | Care Computer Aided Design Operator Name | Role | Phone | + +------+ + | Sheng Combs MD | PCP | | + +------+ + Reason for Visit + + + | Reason | Comments | + + + | Dressing Change | | + + + | Labs Only | | + + + Encounter Details +--------+ + + + + | Date | Type | Department | Care Team | Description | +--------+ + + + + | 01/01/ | Home | PROV INFUSION | Janessa Macdonald RN | | | 2019 | Infusion | PHARMACY SERVICES | | | | | Visit | [place] [address] | | | | | | [facility] | | | | | | [place], [place] | | | | | | [address] | | | | | | [phone] | | | +--------+ + + + [...] + + + | Blood Pressure | 118/60 | 01/02/2020 8:20 AM | | | | | PDT | | + + + + + | Pulse | 60 | 01/02/2020 8:20 AM | | | | | PDT | | + + + + + | Temperature | 36.8 C (98.2 F) | 01/02/2020 8:20 AM | | | | | PDT | | + + + + + | Respiratory Rate | 16 | 01/02/2020 8:20 AM | | | | | PDT | | + + + + + | Oxygen Saturation | - | - | | + + + + + | Inhaled Oxygen | - | - | | | Concentration | | | | + + + + + | Weight | - | - | | + + + + + | Height | - | - | | + + + + + | Body Mass Index | - | - | | + + + + + [...] documented as of this encounter Progress Notes Janessa Macdonald RN - 01/02/2020 11:59 PM PDTFormatting of this note might be different from t he original. Nursing Progress Note Visit Record Janessa Macdonald RN Visit Record Name: Reilly Hamm Date of : 1950 Primary Care Physician: Sheng Combs MD Visit Date: 01/02/2020 Next Visit: [x] Home [] AIS Date/Time: 01/09/2020 Next MD Appointment: 01/05/2020 Supplies Needed or to be Deleted: Labs Labs drawn: [x] CBC w/ diff [x] CMP [x] CRP [] CPK [x] ESR [] TPN Labs: Mag, Phos, Triglycerides [] Other: Stat: [] Yes [x] No [facility] Information Race Other Language Urdu Display Specialist No Source of Information [x] Patient [x] Family Member [] Friend/Caregiver [x] Medical Record [] Other: Therapy Type [x] ARSH [] IVV [] TPN [] HYD [] MOLD CAPPER HELPER [x] LMT [] CHM [] OTH [] ENT Advanced Directives [] Yes [x] No Code Status [x] Full [] No Code [] POLST present Activity Level Current activity level and/or restrictions: Sternal precautions and PICC precautions Barriers to performing home infusion?: none / Toddler: [] Walking [] Crawling [] Rolling [] Sitting up Activities of Daily Living Able to perform ADL's?: [x] Yes With assistance [] No - DME's used: / Toddler: [] Diapers [] Toilet trained Special Needs: Drug Levels Vancomycin: [] Trough [] Peak [] Random Gentamicin: [] Trough [] Peak [] Random Amikacin: [] Trough [] Peak [] Random Tobramycin: [] Trough [] Peak [] Random Start: End: Duration: 1st lab draw time: 2nd lab draw time: Central Line Type: [x] PICC [] PORT [] Baron [] Midline Lumens: [] Single [x] Double [] Triple External Length: 3 cm OTP Arm Circumference: 28 cm measured 10 cm proximal AC fossa Location: Left upper arm Stabilization Device: [x] PICC CVC Securement [x] Steri Strips [] Stat Lock Tunneled: [] Yes [x] No Cuffed [] Yes [x] No Sutured: [] Yes [x] No Antimicrobial Disc: [x] Gardiva [] Biopatch [] Silverlon Type of Dressing: [x] CVC Kit [] Sorbaview [] Tegaderm [] Duoderm Clave Changed: [x] Yes [] No Extension Added: [x] None [] 7in [] 14in Central line insertion site: Clean, dry, intact without redness, swelling, drainage, warmth or streaking Line Flushed: [x] Yes [] No [x] Saline [x] Heparin Blood return: [x] Yes [] No Port: [] Accessed [] Deaccessed [] Reaccessed Lidocaine used: [] Yes [] No PAC attempts: Access needle used: Line TPA'd: [] Yes [] No [] Successful [] Unsuccessful Reason for TPA: TPA Dwell Time: PICC / CVC / Midline D/C'd per PIPS Policy: [] Yes [] No Tip Intact: [] Yes [] No Length: Peripheral PIV Location: [] Left Arm [] Left hand [] Left Forearm [] Right Arm [] Right hand [] Right Forearm PIV Attempts: Device Used: [] 24g [] 22g [] 20g Device Brand: [] BD [] Other: Lidocaine Used: Line flushed per PIPS Protocol: [] Yes [] No Medication Administration Patient Supplied Oral Pre-Meds: [] Yes [x] No [] N/A Med Given / Dose: 0.9% normal saline, 40 mls Med Given / Dose: 10 U/ml Heparin, 4-5 mls Medication Changes: [] Yes [x] No - med profile updated Pump Verification Pump Type: [] CADD Prizm [] CADD Dawson [x] IVP [] Massey Syringe Pump Drug Name: cefTRIAXone 2000mg in 20 ml SWFI syringe Drug Concentration: cefTRIAXone 2000mg in 20 ml SWFI syringe RX #: [id number] [place] volume of current bag: [place] volume of new bag: Bag changed at this visit: [] Yes [] No - Last Changed: Basal Rate: Bolus dose: Bolus per hour: Bolus interval: Bolus attempts: Bolus given: Number of Bolus Given since pump cleared: Date/Time last cleared: Data Cleared: [] Yes [] No Number of backup bags in home: Exp date of bags in home: Number of back-up pumps present: Back-up pump settings reviewed and verified: [] Yes [] No Current pump settings reviewed and verified: [] Yes [] No Pump verified with: Systems Assessment Comments Pain [] Yes [x] No Intensity Type Intervention [] Heat [] Cold [] Medication [] Massage [] Postural Intervention Successful? [] Yes [] No MD Notified? [] Yes [] No Head and Neck [] WNL [] Vision problems [] Glasses [] Contact Lenses [] Hearing Impairment [] Hearing Aid [] Tinnitus Mouth and Throat [] WNL [] Dentures [] Gum Lesions/Bleeding [] Difficulty Swallowing/Chewing [] Loss of taste Cardiac [] WNL [] SOB w/ Exertion [] Edema [] Tachycardia/Bradycardia/Irregular Rhythm [] Hyper/Hypotension [] Implanted Pacemaker/Defibrillator S/P recent Mitral valve replacement and open heart garcia rgery Anticoag Therapy [x] Yes [] No [] Bruising [] Bleeding [] Bloody Stools Coumadin Respiratory [] WNL [] Dyspnea [] Cough [] Wheezing [] Crackles [] Rales [] Asthma [] COPD [] Sleep Apnea [] Decreased breath sounds Oxygen [] Yes [x] No Liters/min: Oxygen Safety Assessment completed: [] Yes [] No Compliant with Oxygen Storage Safety Req: [] Yes [] No GI [] WNL [] Nausea [] Vomiting [] Distention [] Dehydrated [] Heartburn [] Constipation [] Diarrhea [] Ostomy [] Obesity Dietary Changes: [] Yes [] No [] WNL [] Incontinence [] Retention [] Hematuria [] Dysuria [] Frequency [] Burning [] Reproductive Problems [] M enopause [] Prostate Problems [] Villa Catheter [] Urostomy : [] Yes [] No MD Aware: [] Yes [] No GA - trimester: [] 1st [] 2nd [] 3rd Endocrine / Immunologic [] WNL [] Hormone supplements [] Autoimmune disease Diabetic: [x] Yes [] No Blood Glucose Level: MSK [] WNL [] Stiffness [] Tremors [] Swelling [] Balance problems [x] ROM limitations Sternal precautions status post open heart surgery Neurological [] WNL [] Slurred speech [] Seizures [] Headache [] Neur opathy [] Numbness/tingling [] Dizziness Psychosocial [] WNL [] Angry/Agitated [] Blunted/flat affect [] Depressed/withdrawn [] Confused [] Sleep disturbances [] Difficulty coping Skin [] WNL [] Bruises [] Pallor [] Erythema/Rash [] Wound [x] Wound not observed Midsternum incision Fall Assessment Did the patient fall since last home visit: [] Yes [x] No Fall occurrence assessment completed: [] Yes [x] No Fall risk assessment completed: [] Yes [x] No Therapy Administration Therapy administered by: Janessa Macdonald RN Therapy knowledge by Patient/Caregiver: [x] Good [] Fair [] Poor Response to Therapy: [x] Good [] Fair [] Poor Compliance with Therapy Administration: [x] Good [] Fair [] Poor Self Monitoring Activities: [x] Good [] Fair [] Poor Teaching - Patient/Caregiver Instruction [x] Aseptic Technique [x] Medication Administration [x] Blood Glucose Monitoring [x] Home Safety [x] Flushing Protocol [] Oxygen Safety [] Pump Training Environment/Safety - WNL: [x] Yes [] No [] N/A Do you feel safe at home: [x] Yes [] No Narcotic Safety Checklist Patient's narcotics outside of the supply box that PIPS sent to the home: [] Yes [] N o Previously infused bags of narcotics placed in patient's sharps container: [] Yes [] No Sharps container out of sight or safely stored: [] Yes [] No Patient understands risks of having back-up bags of narcotics in the home: [] Yes [] No Patient understands they must sign for receipt of their narcotics: [] Yes [] No Comments: Progress Progress towards Goal: [x] Good [] Fair [] Poor Covid 19 screen negative. RN wears mask and shield for entire visit. RN arrived to pt home for scheduled dressing change and lab draw. RN performed hand hygiene and obtained vital sig ns then gathered supplies onto clean surface. PICC line secured to patient arm above the dr jemma with tape from dressing change kit. Old dressing and CVC securement device removed. I nsertion site and surrounding area cleaned with chloraprep and allowed to air dry before are a is treated with skin barrier prep. OTP measured with sterile measuring tape. PICC line sec ured with CVC device, Gardiva patch applied to insertion site and steri strips and area cove red with small tegaderm. Dressing labeled with RN intitials, date, time OTP and arm circumfe rence measurement. Blood sample obtained from PICC line when needless connector removed and line flushed with 20 mls NS, blood drawn into flushing syringe. New 10ml syringe attached to PICC and blood 8m l drawn up and placed in lavender and gold tubes. Line flushed and then primed needleless co nnector added to PICC and flushed again for a total of NS 20ml. Then finally flushed with 4- 5 mls of 10 U/ml Heparin. Second lumen line needless connector removed and checked for posit selwyn blood return. Then new primed needless connector added and then flushed with 4-5 mls 10U /ml Heparin. Lab samples spun down in RN centrifuge on way to TCL lab at [address] in [facility]. Let patient know [facility] administrator would call next week to schedule next dressing kay nge and lab draw. Patient verbalized understanding. Vital Signs Vitals with Comments 12/30/2019 12/31/2019 12/31/2019 01/01/2020 01/05/2020 SYSTOLIC - 145 116 118 112 DIASTOLIC - 67 56 58 60 BP Comments - - - - - Pulse - 75 80 87 142 Temp (No Data) 98.6 98.3 97.9 98.4 Temp Comments pt refused all vital signs at this time. - - - - Resp - 16 18 - - Weight - 134 lbs 8 oz - - - Height - - - - - SPO2 - 99 98 98 100 BMI - - - - - Pain Score - - - 0 - No pain 0 - No pain Electronically signed by: Janessa Macdoanld, DOROTHY 01/05/2020 8:32 PM PDT Registered Nurse | [facility] | [address], [address] | [place] [address] | P [phone] | F [phone] documented in this encou nter Plan of Treatment +--------+---------+ + + + | Date | Type | Specialty | Care Team | Description | +--------+---------+ + + + | 01/07/ | Office | Anticoagulation | Kenroy Greenberg, | | 2019 | Visit | | SOFTWARE DEVELOPMENT MANAGER [facility] [address] | | | | | | [place], [place] | | | | | | [id number] | | | | | | | | +--------+---------+ + + + | 01/15/ | Office | Cardiothoracic | Keaton Ernandez, | | 2019 | Visit | Surgery | [address] | | | | | | [place], | | | | | | [place] [address] | | | | | | [phone] | | | | | | | | +--------+---------+ + + + | 01/20/ | Office | Cardiology | Valarie, | | | 2019 | Visit | | [address] | | | | | | [address] | | | | | | [place] | | | | | | [address] | | | | | | | | +--------+---------+ + + + | 01/20/ | Office | Infectious Diseases | Josh Mckeon DO | | | 2019 | Visit | | [address] | | | | | | [place] [address] | | | | | | [phone] | | | | | | | | +--------+---------+ + + + documented as of this encounter Visit Diagnoses Not on filedocumented in this encounter"
--- OUTSIDE RECORDS SUMMARY | ~2020-01-05 | XMS | Encounter Summary ---
Demographics + + + | Address | [address] | | | [place] [address] | + + + | Home Phone | | + + + | Preferred Language | Unknown | + + + | Marital Status | | + + + | Taoism Affiliation | Unknown | + + + | Race | Unknown | + + + | Ethnic Group | Not or | + + + Author + + + | Author | [facility] | | | and [place] | + + + | Organization | [facility] | | | [...] | | | | | [place] [address] | | + + + + + | Alvaro Newton | ECON | Unknown | | + + + + + Care Team Providers + +------+ + | Care Cold Mill Operator Name | Role | Phone | + +------+ + | Sheng Combs MD | PCP | | + +------+ + Reason for Visit + +--------+ + | Reason | Onset | Comments | | | Date | | + +--------+ + | Abnormal Lab | 01/01/ | | | | 2020 | | + +--------+ + Encounter Details +--------+ + + + + | Date | Type | Department | Care Team | Description | +--------+ + + + + | 01/01/ | Telephone | [facility] | Yuliya, | Abnormal Lab | | 2020 | | INFECTIOUS DISEASE | MD [address] | | | | | [address] | [address] | | | | | [place], [place] | [place] [address] | | | | | [address] | [phone] | | | | | [phone] | | | +--------+ + + + [...] + + documented as of this encounter Miscellaneous Notes Telephone Encounter - Maddi Dwyer MD - 01/02/2020 4:53 PM PDTPhone call received f rom TCL that platelet is 5k (324k on 12/30). Called patient; his states he is stable with no bleeding episodes. Will have CBC repeated. P M PDTdocumented in this encounter Plan of Treatment +--------+---------+ + + + | Date | Type | Specialty | Care Team | Description | +--------+---------+ + + + | 01/07/ | Office | Anticoagulation | Kenroy Greenberg, | | 2019 | Visit | | [address] | | | | | | [place] | | | | | | [id number] | | | | | | | | +--------+---------+ + + + | 01/15/ | Office | Cardiothoracic | Keaton Ernandez, | | | 2019 | Visit | Surgery | [address] | | | | | | [place] | | | | | | [place] [address] | | | | | | [phone] | | | | | | | | +--------+---------+ + + + | 01/20/ | Office | Cardiology | Valarie, | | | 2019 | Visit | | [address] | | | | | | [address] | | | | | | [place] | | | | | | [address] | | | | | | | | +--------+---------+ + + + | 01/20/ | Office | Infectious Diseases | Josh Mckeon DO | | | 2019 | Visit | | [address] | | | | | | [place] [address] | | | | | | [phone] | | | | | | | | +--------+---------+ + + + + +------+--------+ + + | Name | Type | Priori | Associated Diagnoses | Order Schedule | | | | ty | | | + +------+--------+ + + | CBC with Manual | Lab | STAT | Acute bacterial | Expected: | | Differential | | | endocarditis | 01/02/2020, Expires: | | | | | | 01/01/2021 | + +------+--------+ + + documented as of this encounter Visit Diagnoses + + | Diagnosis | + + | Acute bacterial endocarditis - Primary Acute and subacute bacterial endocarditis | + + documented in this encounter"
--- OUTSIDE RECORDS SUMMARY | ~2020-01-05 | XMS | Encounter Summary ---
Demographics + + + | Address | [address] | | | [place] [address] | + + + | Home Phone | | + + + | Preferred Language | Unknown | + + + | Marital Status | | + + + | Yazdanism Affiliation | Unknown | + + + | Race | Unknown | + + + | Ethnic Group | Not or | + + + Author + + + | Author | [facility] | | | and [place] | + + + | Organization | [facility] | | | [...] | | | | | [place] [address] | | + + + + + | Alvaro Newton | ECON | Unknown | | + + + + + Care Team Providers + +------+ + | Care Web Content Editor Name | Role | Phone | + +------+ + | Sheng Combs MD | PCP | | + +------+ + Encounter Details +--------+ + + + + | Date | Type | Department | Care Team | Description | +--------+ + + + + | 01/01/ | Orders Only | [facility] | Amanda Dunn, | Acute bacterial | | 2020 | | [address] | Print Line Supervisor | endocarditis | | | | [place] | | | | | | [address] | | | | | | [phone] | | | +--------+ + + + [...] [place] | | | | | | [address] | | | | | | | | +--------+---------+ + + + | 01/15/ | Office | Cardiothoracic | Keaton Ernandez, | | | 2019 | Visit | Surgery | [address] | | | | | | [place] | | | | | | [place] [address] | | | | | | [phone] | | | | | | | | +--------+---------+ + + + | 01/20/ | Office | Cardiology | Valarie, | | | 2019 | Visit | | [address] | | | | | | [address] | | | | | | [place] | | | | | | [address] | | | | | | | | +--------+---------+ + + + | 01/20/ | Office | Infectious Diseases | Josh Mckeon DO | | | 2020 | Visit | | [address] | | | | | | [place] [address] | | | | | | [phone] | | | | | | | | +--------+---------+ + + + documented as of this encounter Visit Diagnoses + + | Diagnosis | + + | Acute bacterial endocarditis Acute and subacute bacterial endocarditis | + + documented in this encounter"
--- OUTSIDE RECORDS SUMMARY | ~2020-01-05 | XMS | Encounter Summary ---
Demographics + + + | Address | [address] | | | [place] [address] | + + + | Home Phone | | + + + | Preferred Language | Unknown | + + + | Marital Status | | + + + | Confucianist Affiliation | Unknown | + + + [...] | | | | | [place] [address] | | + + + + + | Alvaro Newton | ECON | Unknown | | + + + + + Care Team Providers + +------+ + | Care Disability Case Manager Name | Role | Phone | + +------+ + | Sheng Combs MD | PCP | | + +------+ + Reason for Visit + + + | Reason | Comments | + + + | New Patient | Initial Mock teach for new admit IVP LMT ARSH | + + + Encounter Details +--------+ + + + + | Date | Type | Department | Care Team | Description | +--------+ + + + + | 12/29/ | Home | PROV INFUSION | Rubia Brewster, | | | 2019 | Infusion | PHARMACY SERVICES | RN | | | | Visit | [place] [address] | | | | | [address] | | | | | | [place], [place] | | | | | | [address] | | | | | | [phone] | | | +--------+ + + + [...] documented as of this encounter Progress Notes Rubia Brewster, Student SALES ENGINEER [employer] - 12/30/2019 7:00 PM PDTRN scheduled for initial/assessment t each in hospital. RN arrived to pt room, washed hands and introduced herself. Pt and daughter in the room pt will be doing all the care. RN discussed what to expect when they get their supply box scheduled to be delivered to [facility] before 9am tomrrow. RN advised medication will need to be stored in the refrigerator. Rn advised will do infusions 9am a nd 9pm twice a day through the and then on Sunday the once a day at 9am. RN went o contreras how to lay out supplies and medication before infusing by using [facility] pt instruction andreea prince. RN discussed aseptic technique, washing hands, and having a clean work space. RN demons trated how to clean the end clave 30 sec with alcohol using a moch PICC line connected to a glove. RN then demonstrated how to attach the NS 10ml syringe for flushing and how to flush using a brisk push pause method. RN then had pt return demonstrate. Pt wfe returned d emonstrated and was competent. Rn advised if the syringe touches anything to throw away an d get a new one. RN then discussed the IV push medication syringe, and cleaning the pt end clave and attaching the syringe to pt. Rn advised to push 2ml and wait a minute before pus yessi another 2ml until completed. RN advised will infuse in 10 minutes. RN then discussed w hen syringe is empty to detach it and throw it away. RN advised to clean end clave and flus h line again with NS 10 ml, and then clean and flush with heparin as final flush. Rn advise d to flush the second line with saline and heparin after each dose and same on Sunday one do ing only one dose to flush second PICC line. Pt competent in return demonstration of all steps of care. RN gave pt family education handout in advance to review. RN asked if he had any questions. RN asked if they feel confident in doing the first dose tomorrow night , pt stated she feels confident. RN advised after teach in home that we have a 24 ho ur phone line to call for assistance and we will come out once a week to change dressing and labs in home. PT and pt confirmed understanding and had no further questions at the [facility]. docristine craig in this encounter Plan of Treatment +--------+---------+ + + + | Date | Type | Specialty | Care Team | Description | +--------+---------+ + + + | 01/07/ | Office | Anticoagulation | Kenroy Greenberg, | | 2019 | Visit | | [address] | | | | | | [place] | | | | | | [phone] | | | | | | | | +--------+---------+ + + + | 01/15/ | Office | Cardiothoracic | Keaton Ernandez, | | | 2019 | Visit | Surgery | [address] | | | | | | [place] | | | | | | [place] [address] | | | | | | [phone] | | | | | | | | +--------+---------+ + + + | 01/20/ | Office | Cardiology | Valarie, | | | 2019 | Visit | | [address] | | | | | | [address] | | | | | | [place] | | | | | | [address] | | | | | | | | +--------+---------+ + + + | 01/20/ | Office | Infectious Diseases | Josh Mckeon DO | | | 2019 | Visit | | [address] | | | | | | [place] [address] | | | | | | [phone] | | | | | | | | +--------+---------+ + + + documented as of this encounter Visit Diagnoses Not on filedocumented in this encounter"
--- OUTSIDE RECORDS SUMMARY | ~2020-01-05 | XMS | Encounter Summary ---
Demographics + + + | Address | [address] | | | [place] [address] | + + + | Home Phone | | + + + | Preferred Language | Unknown | + + + | Marital Status | | + + + | Confucianist Affiliation | Unknown | + + + | Race | Unknown | + + + | Ethnic Group | Not or | + + + Author + + + | Author | [facility] | | | and [place] | + + + | Organization | [facility] | | | and [...] | | | | | [place] [address] | | + + + + + | Alvaro Newton | ECON | Unknown | | + + + + + Care Team Providers + +------+ + | Care Blood Bank Laboratory Professional Name | Role | Phone | + [...] | | | | Diagnoses | | [place], | | | | | Acute | | Jeet Aaron MD | | | | | bacterial | | [address] | | | | | endocarditis | | [address] | | | | | | | [place] | | | | | Endocarditis | | [place] | | | | | of mitral | | [address] Phone: | | | | | valve | | [phone] | | | | | Severe | | Fax: | | | | | mitral | | [phone] | | | | | regurgitatio | | | | | | | n | | | | | | | Procedures | | | | | | | HI L HRT | | | | | | | CATH W/NJX L | | | | | | | | | | | | | | VENTRICULOGR | | | | | | | APHY IMG S&I | | | | | | | . | | | +--------+--------+ + + + + Encounter Details +--------+ + + + + | Date | Type | Department | Care Team | Description | +--------+ + + + + | 12/23/ | Anesthesia | [facility] | Nimesh Castillo MD | | | 2020 | Event | [facility] | [address] | | | | | [address] | [place] [address] | | | | | [address] | [phone] | | | | | [place], [place] | | | | | | [address] | | | | | | [phone] | | | +--------+ + + + + Anesthesia Record + + + + + | Procedure Name | Responsible | Anesthesia Start | Anesthesia Stop Time | | | Anesthesiologist | Time | | + + + + + | MITRAL VALVE | Nimesh Castillo MD | 12/24/19 0756 | 12/24/19 1317 | | REPLACEMENT (N/A | | | | | Chest) | | | | + + + + + +----+---+ + + | Da | T | Event | Comment | | te | i | | | | | m | | | | | e | | | +----+---+ + + | 08 | 0 | | | | /1 | 7 | | | | 2/ | 2 | | | | 20 | 8 | | | | 20 | | | | +----+---+ + + | | 0 | An Start | Reassessment prior to anesthesia induction/procedure. | | | 7 | | | | | 5 | | | | | 6 | | | +----+---+ + + | | 0 | Art Line | | | | 8 | Stop | | | | 0 | | | | | 6 | | | +----+---+ + + | | 0 | An | | | | 8 | Induction | | | | 0 | | | | | 8 | | | +----+---+ + + | | 0 | An | | | | 8 | Intubation | | | | 1 | | | | | 1 | | | +----+---+ + + | | 0 | CVC Stop | | | | 8 | | | | | 2 | | | | | 4 | | | +----+---+ + + | | 0 | ADALI Probe | Easy, atraumatic insertion; (+)bite block. | | | 8 | Placement | | | | 2 | | | | | 7 | | | +----+---+ + + | | 0 | Anesthesia | | | | 8 | Ready | | | | 3 | | | | | 0 | | | +----+---+ + + | | 0 | First | | | | 8 | Inc/Proc St | | | | 5 | | | | | 1 | | | +----+---+ + + | | 0 | Sternotomy | | | | 8 | | | | | 5 | | | | | 2 | | | +----+---+ + + | | 0 | Quick Note | Surgeon requests lower tidal volumes. | | | 9 | | | | | 0 | | | | | 2 | | | +----+---+ + + | | 0 | Quick Note | RAP start. | | | 9 | | | | | 2 | | | | | 1 | | | +----+---+ + + | | 0 | Insert | | | | 9 | Aortic | | | | 2 | Cannula | | | | 5 | | | +----+---+ + + | | 0 | Quick Note | PHARMACY: regularly scheduled ceftriaxone 1g IVPB start (infused | | | 9 | | over 20min). | | | 3 | | | | | 0 | | | +----+---+ + + | | 0 | An CV | | | | 9 | Bypass init | | | | 3 | | | | | 5 | | | +----+---+ + + | | 0 | Quick Note | Surgeon & central communications specialist aware of relatively low UOP prior to CPB. | | | 9 | | | | | 3 | | | | | 9 | | | +----+---+ + + | | 0 | An Clamp On | | | | 9 | | | | | 4 | | | | | 5 | | | +----+---+ + + | | 1 | Quick Note | One unit pRBCs given on CPB by central communications specialist. | | | 0 | | | | | 4 | | | | | 2 | | | +----+---+ + + | | 1 | An Clamp | | | | 1 | Off | | | | 3 | | | | | 6 | | | +----+---+ + + | | 1 | Quick Note | Pacemaker: DDD @80bpm with 10mA. | | | 1 | | | | | 4 | | | | | 6 | | | +----+---+ + + | | 1 | An CV | | | | 1 | Bypass | | | | 5 | cease | | | | 8 | | | +----+---+ + + | | 1 | Quick Note | Protamine test dose. | | | 2 | | | | | 0 | | | | | 1 | | | +----+---+ + + | | 1 | Sternal | | | | 2 | Closure | | | | 3 | | | | | 3 | | | +----+---+ + + | | 1 | ADALI Probe | | | | 2 | Removed | | | | 5 | | | | | 9 | | | +----+---+ + + | | 1 | NG/OG | | | | 3 | Placement | | | | 0 | | | | | 3 | | | +----+---+ + + | | 1 | Quick Note | Transport to ICU. | | | 3 | | | | | 0 | | | | | 6 | | | +----+---+ + + | | 1 | An Stop | Patient handed off to recovery nurse. | | | 1 | | | | | 7 | | | +----+---+ + + +------+ | Meds | +------+ + + + | Name | Total | + + + | midazolam 2 mg/mL | 2 mg | + + + | fentaNYL | 500 mcg | + + + | lidocaine 2% | 80 mg | + + + | propofol | 80 mg | + + + | rocuronium | 120 mg | + + + | phenylephrine (bolus) | 1,300 mcg | + + + | phenylephrine (infusion) | 3,830 mcg | + + + | nitroglycerin (bolus) | 50 mcg | + + + | EPINEPHrine (infusion) | 163.5 mcg | + + + | aminocaproic acid | 20 g | + + + | heparin | 25,000 Units | + + + | protamine | 250 mg | + + + | insulin regular | 3 Units | + + + | insulin regular (humuLIN R, | 8.75 Units | | novoLIN R) 1 Units/mL in sodium | | | chloride 0.9% 100 mL infusion | | + + + | ceFAZolin in dextrose (ANCEF) | 4 g | | IVPB 2 g | | + + + | metoclopramide | 10 mg | + + + | ondansetron | 4 mg | + + + | dexmedetomidine in saline | 17.22 mcg | | (PRECEDEX) infusion 4 mcg/mL (100 | | | mL premix) | | + + + | ceFAZolin | 2 g | + + + | NS (infusion) | 700 mL | + + + | Plasmalyte (infusion) | 300 mL | + + + + + | Name | + + | N2O Flow Rate (L/Min) | + + | O2 Flow Rate (L/Min) | + + | Insp O2 | + + | Exp N2O | + + | Exp ISO | + + | Air Flow Rate (L/Min) | + + + + | No blood administrations on file. | + + +--------+ + + + | Type | Details | Placement | Removal | +--------+ + + + | Wound | 12/24/19; 0901; Incision; | 12/24/19 09 by | | | | Bilateral; chest | Len Felipe, | | | | | RN | | +--------+ + + + | Periph | Right; Distal; Wrist; 18 gauge; | 12/24/19 0737 by | 12/25/19 1045 by | | agusto | lumen/catheter not patent, | | Marcie Bennett RN | | IV | catheter/device intact, other | | | | | (see comments) (leaking); | | | | | 12/25/19; 1045 | | | +--------+ + + + | Periph | 12/17/19; 1212; Left; Posterior | 12/17/19 1212 by | 12/25/19 0915 by | | eral | (dorsal); Forearm; 20 gauge; | Sarika Pinedo RN | Marcie Bennett RN | | IV | lumen/catheter not patent, | | | | | catheter/device intact; 12/25/19; | | | | | 0915 | | | +--------+ + + + | Periph | 12/18/19; 1321; Right; Anterior | 12/18/19 1321 by | 12/24/19 1429 by | | eral | (palmar); Forearm; | Nj Curtis RN | Marcie Bennett RN | | IV | [id number] catheter system; | | | | | 22 gauge; 1; right dorsal wrist; | | | | | lumen/catheter not patent, | | | | | catheter/device intact; 12/24/19; | | | | | 1429 | | | +--------+ + + + | Arteri | 12/24/19; 0806 (created via | 12/24/19 0806 by | 12/27/19 1049 by | | al | procedure documentation); | Nimesh Castillo MD | Viviane Ndiaye RN | | Line | Chlorhexidine/Isopropyl Alcohol; | | | | | sedated; Left; radial artery; 20 | | | | | gauge; continuous blood pressure | | | | | monitoring, frequent blood gas | | | | | measurement; intradermal | | | | | injection; landmarks; arm board, | | | | | other (see comments); Easy, | | | | | first-pass direct insertion.; | | | | | 12/27/19; 1049 | | | +--------+ + + + | Airway | Placement Date: 12/24/19; | 12/24/19810 by | 12/26/19 0505 by | | | Placement Time: 810 (created via | Nimesh Castillo MD | Edelmira Wahl RN | | | procedure documentation); Airway | | | | | Grade: 1; External Maneuvers: | | | | | CP; Successful Technique: Mac; | | | | | Laryngoscope Blade Size: 3; | | | | | Attempts: 1; Airway Type: | | | | | endotracheal; Size: 8; Airway | | | | | Tube Secured At: 22; Trauma: | | | | | none; Other Equipment: stylette; | | | | | Placement Check: exhaled CO2 | | | | | detection device, bilateral chest | | | | | rise, breath sounds equal | | | | | bilaterally; Removal Date: | | | | | 12/26/19; Removal Time: 0505; | | | | | Additional Comments: Easy, | | | | | atraumatic | | | | | visualization/intubation. | | | +--------+ + + + | Urethr | 12/24/19; 821; indicated due to | 12/24/19821 by | 12/27/19 0934 by | | al | specific surgical procedure; All | Hang Walker RN | Viviane Ndiaye RN | | Cathet | elements; All elements; Bag | | | | er | positioned below the bladder, | | | | | System checked to verify closed | | | | | connections & no dependent loops, | | | | | obstructions/kinks; indwelling | | | | | double lumen catheter; 100% | | | | | silicone; 16; None; 1; 10; 10; | | | | | none; tolerated well; drainage | | | | | bag to dependent drainage; | | | | | removed in past; 12/27/19; 09 | | | | | (Removed by comedian nurse) | | | +--------+ + + + | CVC | 12/24/19; 823 (created via | 12/24/19 0824 by | 12/27/19 1050 by | | Triple | procedure documentation); Yes; | Nimesh Castillo MD | Viviane Ndiaye RN | | Lumen | Chlorhexidine/Isopropyl Alcohol; | | | | | Yes; Yes; All; OR; [facility]; | | | | | Nimesh Castillo MD; New indication | | | | | for central line (e.g., | | | | | hemodynamic monitoring, | | | | | fluid/medication administration, | | | | | etc.); internal jugular vein, | | | | | right; under GA; 10; 9 Fr; | | | | | ultrasound guided, landmarks; no | | | | | longer indicated; Easy, | | | | | first-pass success; (+)SLIC via | | | | | introducer.; pressure transduced; | | | | | all ports aspirated blood; | | | | | 12/27/19; 1050 | | | +--------+ + + + | Pacema | 12/24/19; 1200; epicardial; DDD; | 12/24/19 1200 by | 12/28/19 0000 by | | ker | capturing, sensing; 12/28/19 | Marcie Bennett RN | Nj Curtis RN | +--------+ + + + | Chest | 12/24/19; 1243; DR. MONROE; 1; | 12/24/19 1243 by | 12/26/19 0815 by | | Tube Y | Left:; pleural; 28 Fr.; 2; | Hang Walker RN | Yfn Cabrera RN | | 1&2 | midline; mediastinal; 28 Fr.; | | | | | 12/26/19; 0815 | | | +--------+ + + + | NG/OG | 12/24/19; 1300; orogastric; | 12/24/19 1300 by | 12/26/19 0505 by | | | center mouth; stomach; tubing | Marcie Bennett RN | Edelmira Wahl RN | | | intact, other (see comments) (pt | | | | | was extubated.); 12/26/19; 0505 | | | +--------+ + + + documented in this encounter Social History + +-------+ +--------+ + | [...] + + documented as of this encounter OR Notes Anesthesia Postprocedure Evaluation - Nimesh Castillo MD - 12/24/2019 1:20 PM PDT ANESTHESIA POSTANESTHESIA EVALUATION Reilly Hamm 69 y.o. male 1950 [id number] Procedure(s) MITRAL VALVE REPLACEMENT (N/A Chest) Cooperates? No, patient has been or will be intubated for greater than 48hrs after anesthe guicho. Mental Status Sedated Respiratory intubated--vented Cardiovascular Satisfactory - Blood pressure and heart rate acceptable Temperature Satisfactory Pain Satisfactory N/V Control Satisfactory Hydration Satisfactory - No signs of dehydration Adverse Events ADVERSE EVENTS: No adverse events Vitals Value Taken Time Temp 35.7 bladder Pulse 80 12/24/19 1319 Resp 17 12/24/19 1319 BP 99/62 12/24/19 1319 Arterial Line BP 112/57 12/24/19 1319 Arterial Line BP 2 SpO2 100 % 12/24/19 1319 Vitals shown include unvalidated device data. CXR personally reviewed: ETT okay, introducer okay, absent pneumothorax, OGT distal course below diaphragm. Electronically signed by Nimesh Castillo MD 12/24/2019 1:20 PM PDT [facility] nesthesia Procedure Nimesh Rubalcava MD - 12/24/2019 9:18 AM PDTAssociate d Order(s): CVCCentral Venous Line Placement 12/24/2019 8:24 AM Indication: continuous CVP monitoring and intravenous access Insertion reason: new indication for central line Prep solution: chlorhexidine/isoproplyl alcohol Preparation: central line kit used, staff scrubbed hands and prep allowed to dry Sterile barriers used: all Patient was: under GA Vein: right internal jugular Size: 9 Fr Number of Lumens: triple lumen Localizaton technique: landmark and ultrasound Catheter depth at skin: 10 cm Port patency: all ports flushed Placement verification: pressure transduced, ultrasound visualization of wire in vein and a spiration venous colored blood Securement: transparent dressing, sutures and dressing per hospital protocol Complications: no complications noted at this time 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 Location performed: OR Please see intraoperative grid for any additional medication documentation. nesthesia Procedure Nimesh Rangel MD - 12/24/2019 9:17 AM PDTAssociated Order(s): ALineArterial Line Ap cement 12/24/2019 8:06 AM Indication: continuous blood pressure monitoring and acid-base/laboratory analysis Prep solution: chlorhexidine/isoproplyl alcohol Patient was: sedated Pain prevention: 1% lidocaine infiltration Laterality: left Artery:radial Size: 20 g Localization technique: landmark Securement: transparent dressing, tape and arm board Performed by: Nimesh Castillo MD Authorizing provider: Nimesh Castillo MD Comments: Easy, first-pass direct insertion. Please see intraoperative grid for any additional medication documentation. nesthesia Procedure Nimesh Rangel MD - 12/24/2019 9:16 AM PDTAssociated Order(s): AirwayAnesthesia Airwa y Placement 12/24/2019 8:11 AM Preprocedure check: patient identified, airway equipment checked, patient reassessment prio r to induction, airway assessed, suction and oxygen Rapid Sequence Induction: modified External maneuver: cricoid pressure Successful technique: Mac Laryngoscope blade size: 3 Airway grade: 1 (Full view of glottis) Other equipment: stylette Attempts: 1 Airway type: endotracheal Size: 8 Cuffed: cuffed Route, reference point: right side of mouth Tube depth: 22 cm Tube secured with: adhesive tape Trauma: none Tube placement verification: bilateral chest rise, carbon dioxide detection and equal bilat eral breath sounds Performing provider: Nimesh Castillo MD Authorizing provider: Nimesh Castillo MD Comments: Easy, atraumatic visualization/intubation. Please see intraoperative grid for any additional medication documentation. nesthesia Preprocedure Evaluation - Nimesh Castillo MD - 12/24/2019 6:07 AM PDTFormatting of this note might be di fferent from the original. ANESTHESIA PREANESTHESIA EVALUATION Reilly Hamm 69 y.o. male 1950 [id number] Procedure(s): REPLACEMENT / REPAIR VALVE MITRAL (N/A Chest) Medical,anesthesia, drug, allergy histories reviewed, NPO status verified. ECG reviewed. Labs reviewed. (-) perioperative beta-[place]/statin not given/taken, reason : not applicable/Not taking Beta-[place]. Review of Systems / Med History Anesthesia History No anesthesia complications except where noted below. (+) previous surgery or anesthesia.(-) PONV, malignant hyperthermia . Family Anesthesia History Family Anesthesia Negative except where noted below. Cardiovascular (-) hypertension (-) dysrhythmias: (+) chronic diastolic dysfunction congestive heart failure. (-) coronary artery disease. (+ ) valvular problems/murmurs : MR [facility] (-) recent URI, Chronic Obstructive Pulmonary Disease.(-) sleep apnea.(-) asthma.(+) tobacc o use.(+) ex-smoker: 2018. Gastrointestinal/Hepatic Negative except where noted below. (-) hiatal hernia, hypercholesterolemia, jaundice. (-) acid reflux. (-) cirrhosis. Renal (-) chronic renal insufficiency. Endocrine (-) hypothyroidism. (-) obesity. (+) Diabetes: Hematology/Other (+) anemia. Cancer Negative except where noted below. Neuromuscular (+) CVA. (-) seizures. Psychology Negative except where noted below. Additional Comments: Presented with fatigue/malaise, sepsis/SIRS. 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 Denies neurologic deficit. Denies personal history of WI/CAD/CHF/dysrhy thmia. Denies esophageal pathology. EKG (12/20/19): sinus tachycardia with PACs, non-specific T-wave changes. CXR (12/23/19): mod CHF. TTE (10/31/19): LVEF=55-60%, grade I DD, mild LAE, severe MR, mild TR. ADALI (12/19/19): LVEF=70%, mod LAE, severe eccentric MR, lg mobile vegetation P2 leaflet, sm o stium secundum ASD with [id number] shunt. Cardiac cath (12/19/19): normal coronaries, LVEF=55%, severe MR, normal LVEDP. Labs (12/23/19): Hgb8.8, rtzn796, K+3.6, creatinine1.1, INR1.1. Physical Exam Airway MP II, TM >3 FB, Mouth opening >2 FB. Neck: full ROM, extends >30 degrees. Facial hair present: Yes Dental (+) dentures-lower and dentures-upper. CV cardiovascular normal Rhythm regular. Rate normal. (+) murmur. Pulm Clear to auscultation bilaterally. (-) wheezing and rales. Neuro grossly normal. Other Healing edentulation wounds. Absent peripheral edema. Anesthesia Plan ASA: 4 Type: General. Induction: Intravenous. Potential problems: None anticipated. Monitors: Standard ASA monitors. Arterial line, CVC, CVP and ADALI to aid in hemodynamic monitoring. Consent statement: Anesthetic plan, alternatives, risks and benefits discussed with patient. Consenting person understands and agrees to proceed. Electronically Signed by: Nimesh Castilol MD ESig date/time: 12/24/2019 7:26 AM PDT documented in this enco unter Miscellaneous Notes Anesthesia Post-op Handoff - Nimesh Castillo MD - 12/24/2019 1:19 PM PDT ANESTHESIA HANDOFF NOTE Reilly Hamm 69 y.o. male 1950 [id number] MITRAL VALVE REPLACEMENT (N/A Chest) HANDOFF NOTE Handoff Protocol Used: post-procedure handoff checklist completed The following were completed during the transfer of care: 1. Identification of patient 2. Identification of responsible practitioner (primary service) 3. Discussion of pertinent medical history 4. Discussion of the surgical/procedure course (procedure, reason for surgery, procedure pe rformed) 5. Intraoperative anesthetic management and issues/concerns 6. Expectations/plans for the early post-procedure period 7. Opportunity for questions and acknowledgement of understanding of report from receiving team Patient Location: ICU Condition: sedated Airway/O2: endotracheal tube with O2 Multimodal analgesia: multimodal analgesia not used between 6 hours prior to anesthesia sta rt to PACU discharge Multimodal analgesia not used reason: A medical reason exists for NOT using multimodal anal gesia. (at risk for major organ hypoperfusion) Comments: Transport to ICU in stable condition with full monitoring, intubated with oxygen via bag-mask ventilator. The significant anesthesia concerns and VS in Epic were reviewed with the receiving team. Nimesh Castillo MD 12/24/2019 1:19 PM PDT [facility] documented in this encounter Plan of Treatment +--------+---------+ + + + | Date | Type | Specialty | Care Team | Description | +--------+---------+ + + + | 01/07/ | Office | Anticoagulation | Kenroy Greenberg, | | | 2019 | Visit | | [facility] [address] | | | | | | [place] | | | | | | [address] | | | | | | | | +--------+---------+ + + + | 01/15/ | Office | Cardiothoracic | Keaton Ernandez, | | | 2019 | Visit | Surgery | [facility] [address] | | | | | | [place] | | | | | | [place] [address] | | | | | | [phone] | | | | | | | | +--------+---------+ + + + | 01/20/ | Office | Cardiology | Valarie, | | | 2019 | Visit | | [facility] [address] | | | | | | [address] | | | | | | [place] | | | | | | [address] | | | | | | | | +--------+---------+ + + + | 01/20/ | Office | Infectious Diseases | Josh Mckeon DO | | | 2019 | Visit | | [address] | | | | | | [place] [address] | | | | | | [phone] | | | | | | | | +--------+---------+ + + + documented as of this encounter Procedures + +--------+ + + + | Procedure Name | Priori | Date/Time | Associated Diagnosis | Comments | | | ty | | | | + +--------+ + + + | ANE CENTRAL VENOUS | Routin | 12/24/2019 | | Results for this | | NOTE | e | 9:18 AM | | procedure are in the | | | | PDT | | results section. | + +--------+ + + + | ANE ARTERIAL LINE | Routin | 12/24/2019 | | Results for this | | NOTE | e | 9:17 AM | | procedure are in the | | | | PDT | | results section. | + +--------+ + + + | ANE AIRWAY NOTE | Routin | 12/24/2019 | | Results for this | | | e | 9:16 AM | | procedure are in the | | | | PDT | | results section. | + +--------+ + + + documented in this encounter Results [facility] (12/24/2019 9:18 AM PDT) + + + | Narrative | Performed At | + + + | Nimesh Castillo MD 12/24/2019 9:19 AM Central Venous Line | | | Placement 12/24/2019 8:24 AM Indication: continuous CVP monitoring | | | and intravenous access Insertion reason: new indication for central | | | line Prep solution: chlorhexidine/isoproplyl alcohol Preparation: | | | central line kit used, staff scrubbed hands and prep allowed to dry | | | Sterile barriers used: all Patient was: under GA Vein: right | | | internal jugular Size: 9 Fr Number of Lumens: triple lumen | | | Localizaton technique: landmark and ultrasound Catheter depth at | | | skin: 10 cm Port patency: all ports flushed Placement verification: | | | pressure transduced, ultrasound visualization of wire in vein and | | | aspiration venous colored blood Securement: transparent dressing, | | | sutures and dressing per hospital protocol Complications: no | | | complications noted at this time 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 Location | | | performed: OR Please see intraoperative grid for any additional | | | medication documentation. | | + + + [facility] (12/24/2019 9:17 AM PDT) + + + | Narrative | Performed At | + + + | Nimesh Castillo MD 12/24/2019 9:18 AM Arterial Line Placement | | | 12/24/2019 8:06 AM Indication: continuous blood pressure | | | monitoring and acid-base/laboratory analysis Prep solution: | | | chlorhexidine/isoproplyl alcohol Patient was: sedated Pain | | | prevention: 1% lidocaine infiltration Laterality: left Artery:radial | | | Size: 20 g Localization technique: landmark Securement: | | | transparent dressing, tape and arm board Performed by: Nimesh Castillo | | | Authorizing provider: Nimesh Castillo MD Comments: Easy, first-pass | | | direct insertion. Please see intraoperative grid for any | | | additional medication documentation. | | + + + Airway (12/24/2019 9:16 AM PDT) + + + | Narrative | Performed At | + + + | Nimesh Castillo MD 12/24/2019 9:17 AM Anesthesia Airway | | | Placement 12/24/2019 8:11 AM Preprocedure check: patient | | | identified, airway equipment checked, patient reassessment prior to | | | induction, airway assessed, suction and oxygen Rapid Sequence | | | Induction: modified External maneuver: cricoid pressure Successful | | | technique: Mac Laryngoscope blade size: 3 Airway grade: 1 (Full | | | view of glottis) Other equipment: stylette Attempts: 1 Airway type: | | | endotracheal Size: 8 Cuffed: cuffed Route, reference point: right | | | side of mouth Tube depth: 22 cm Tube secured with: adhesive tape | | | Trauma: none Tube placement verification: bilateral chest rise, | | | carbon dioxide detection and equal bilateral breath sounds | | | Performing provider: Nimesh Castillo MD Authorizing provider: Nimesh | | | MD Jonathan Comments: Easy, atraumatic visualization/intubation. | | | Please see intraoperative grid for any additional medication | | | documentation. | | + + + documented in this encounter Visit Diagnoses Not on filedocumented in this encounter Administered Medications + +--------+ +------+------+------+ | Medication Order | MAR | Action | Dose | Rate | Site | | | Action | Date | | | | + +--------+ +------+------+------+ | aminocaproic acid (AMICAR) | Given | 12/24/19 | 10 g | | | | injection Intravenous, PRN, | | 20 12:07 | | | | | Starting Sun12/24/19 at 0830, | | PM PDT | | | | | Anesthesia Intra-op | | | | | | + +--------+ +------+------+------+ +-------+ +------+---+---+ | Given | 12/24/19 | 10 g | | | | | 20 8:30 | | | | | | AM PDT | | | | +-------+ +------+---+---+ +---+---+ | | | +---+---+ + +---------+ +---+---+---+ | balanced electrolytes in water | New Bag | 12/24/19 | | | | | (PLASMALYTE-148/NORMOSOL-R) | | 20 7:56 | | | | | infusion Intravenous, CONTINUOUS | | AM PDT | | | | | PRN, Starting Sun12/24/19 at | | | | | | | 0756, Anesthesia Intra-op | | | | | | + +---------+ +---+---+---+ +---+---+ | | | +---+---+ + +-------+ +-----+---+---+ | ceFAZolin (ANCEF, KEFZOL) | Given | 12/24/19 | 2 g | | | | injection Intravenous, PRN, | | 20 9:49 | | | | | Starting 12/24/19 at 0949, | | AM PDT | | | | | Anesthesia Intra-op | | | | | | + +-------+ +-----+---+---+ +---+---+ | | | +---+---+ + +-------+ +-----+---+---+ | ceFAZolin in dextrose (ANCEF) | Given | 12/24/19 | 2 g | | | | IVPB 2 g 2 g, Intravenous, | | 20 12:07 | | | | | Administer over 30 Minutes, Prior | | PM PDT | | | | | to Incision, Starting Wed | | | | | | | 12/24/19 at 0433, For 1 dose, | | | | | | | Start in OR. Must be completely | | | | | | | infused before incision is made. | | | | | | | Redose every 2 hours during | | | | | | | procedure. Keep in refrigerator., | | | | | | | Pre-op, Indications: Surgical | | | | | | | Prophylaxis | | | | | | + +-------+ +-----+---+---+ +-------+ +-----+---+---+ | Given | 12/24/19 | 2 g | | | | | 20 8:30 | | | | | | AM PDT | | | | +-------+ +-----+---+---+ +---+---+ | | | +---+---+ + +---------+ + +-------+---+ | dexmedetomidine in saline | New Bag | 12/24/19 | 0.4 | 6.3 | | | (PRECEDEX) 4 mcg/mL infusion | | 20 12:36 | mcg/kg/h | mL/hr | | | CONTINUOUS PRN, Starting Wed | | PM PDT | r | | | | 12/24/19 at 1236, Anesthesia | | | | | | | Intra-op | | | | | | + +---------+ + +-------+---+ +---+---+ | | | +---+---+ + + + +---------+-------+---+ | EPINEPHrine 1 mg/mL injection | Rate/Dos | 12/24/19 | 1.5 | 0.1 | | | Intravenous, CONTINUOUS PRN, | e Change | 20 12:36 | mcg/min | mL/hr | | | Starting 12/24/19 at 1136, | | PM PDT | | | | | Anesthesia Intra-op | | | | | | + + + +---------+-------+---+ + + +---------+-------+---+ | Rate/Dose Change | 12/24/19 | 2 | 0.1 | | | | 20 11:48 | mcg/min | mL/hr | | | | AM PDT | | | | + + +---------+-------+---+ | New Bag | 12/24/19 | 0.5 | 0.1 | | | | 20 11:36 | mcg/min | mL/hr | | | | AM PDT | | | | + + +---------+-------+---+ +---+---+ | | | +---+---+ + +-------+ +--------+---+---+ | fentaNYL (PF) injection | Given | 12/24/19 | 50 mcg | | | | Intravenous, PRN, Starting Wed | | 20 12:06 | | | | | 12/24/19 at 0754, Anesthesia | | PM PDT | | | | | Intra-op | | | | | | + +-------+ +--------+---+---+ +-------+ +---------+---+---+ | Given | 12/24/19 | 50 mcg | | | | | 20 9:24 | | | | | | AM PDT | | | | +-------+ +---------+---+---+ | Given | 12/24/19 | 150 mcg | | | | | 20 8:50 | | | | | | AM PDT | | | | +-------+ +---------+---+---+ +---+---+ | | | +---+---+ + +-------+ +---------+---+---+ | heparin 1,000 units/mL | Given | 12/24/19 | 25,000 | | | | injection Intravenous, PRN, | | 20 9:10 | Units | | | | Starting 12/24/19 at 0910, | | AM PDT | | | | | Anesthesia Intra-op | | | | | | + +-------+ +---------+---+---+ +---+---+ | | | +---+---+ + + + + +---------+---+ | insulin regular (humuLIN R, | Rate/Dos | 12/24/19 | 1 | 1 mL/hr | | | novoLIN R) 1 Units/mL in sodium | e Change | 20 11:44 | Units/hr | | | | chloride 0.9% 100 mL infusion | | AM PDT | | | | | Intravenous, CONTINUOUS PRN, | | | | | | | Starting 12/24/19 at 0903, | | | | | | | Anesthesia Intra-op | | | | | | + + + + +---------+---+ + + + +---------+---+ | Rate/Dose Change | 12/24/19 | 4 | 4 mL/hr | | | | 20 10:41 | Units/hr | | | | | AM PDT | | | | + + + +---------+---+ | Rate/Dose Change | 12/24/19 | 3 | 3 mL/hr | | | | 20 10:17 | Units/hr | | | | | AM PDT | | | | + + + +---------+---+ +---+---+ | | | +---+---+ + +-------+ +---------+---+---+ | insulin regular (humuLIN R, | Given | 12/24/19 | 1 Units | | | | novoLIN R) injection (vial) | | 20 10:41 | | | | | Intravenous, PRN, Starting Wed | | AM PDT | | | | | 12/24/19 at 0943, Anesthesia | | | | | | | Intra-op | | | | | | + +-------+ +---------+---+---+ +-------+ +---------+---+---+ | Given | 12/24/19 | 1 Units | | | | | 20 10:17 | | | | | | AM PDT | | | | +-------+ +---------+---+---+ | Given | 12/24/19 | 1 Units | | | | | 20 9:43 | | | | | | AM PDT | | | | +-------+ +---------+---+---+ +---+---+ | | | +---+---+ + +-------+ +-------+---+---+ | lidocaine (PF) 2% injection | Given | 12/24/19 | 80 mg | | | | Intravenous, PRN, Starting Wed | | 20 8:08 | | | | | 12/24/19 at 0808, Anesthesia | | AM PDT | | | | | Intra-op | | | | | | + +-------+ +-------+---+---+ +---+---+ | | | +---+---+ + +-------+ +-------+---+---+ | metoclopramide (REGLAN) 5 mg/mL | Given | 12/24/19 | 10 mg | | | | injection Intravenous, PRN, | | 20 12:13 | | | | | Starting 12/24/19 at 1213, | | PM PDT | | | | | Anesthesia Intra-op | | | | | | + +-------+ +-------+---+---+ +---+---+ | | | +---+---+ + +-------+ +------+---+---+ | midazolam (VERSED) 1 mg/mL | Given | 12/24/19 | 1 mg | | | | injection Intravenous, PRN, | | 20 8:07 | | | | | Starting 12/24/19 at 0754, | | AM PDT | | | | | Anesthesia Intra-op | | | | | | + +-------+ +------+---+---+ +-------+ +--------+---+---+ | Given | 12/24/19 | 0.5 mg | | | | | 20 8:04 | | | | | | AM PDT | | | | +-------+ +--------+---+---+ | Given | 12/24/19 | 0.5 mg | | | | | 20 7:54 | | | | | | AM PDT | | | | +-------+ +--------+---+---+ +---+---+ | | | +---+---+ + +-------+ +--------+---+---+ | nitroglycerin in dextrose 200 | Given | 12/24/19 | 50 mcg | | | | mcg/mL infusion Intravenous, | | 20 12:08 | | | | | PRN, Starting 12/24/19 at | | PM PDT | | | | | 1208, Anesthesia Intra-op | | | | | | + +-------+ +--------+---+---+ +---+---+ | | | +---+---+ + +-------+ +------+---+---+ | ondansetron (ZOFRAN) injection | Given | 12/24/19 | 4 mg | | | | Intravenous, PRN, Starting Wed | | 20 12:46 | | | | | 12/24/19 at 1246, Anesthesia | | PM PDT | | | | | Intra-op | | | | | | + +-------+ +------+---+---+ +---+---+ | | | +---+---+ + +-------+ +---------+---+---+ | phenylephrine (DESTIN-SYNEPHRINE, | Given | 12/24/19 | 100 mcg | | | | VAZCULEP) 10 mg per mL injection | | 20 1:06 | | | | | Intravenous, PRN, Starting Wed | | PM PDT | | | | | 12/24/19 at 0812, Anesthesia | | | | | | | Intra-op | | | | | | + +-------+ +---------+---+---+ +-------+ +---------+---+---+ | Given | 12/24/19 | 100 mcg | | | | | 20 12:46 | | | | | | PM PDT | | | | +-------+ +---------+---+---+ | Given | 12/24/19 | 100 mcg | | | | | 20 9:29 | | | | | | AM PDT | | | | +-------+ +---------+---+---+ +---+---+ | | | +---+---+ + + + +---------+-------+---+ | phenylephrine (DESTIN-SYNEPHRINE, | Rate/Dos | 12/24/19 | 20 | 0.1 | | | VAZCULEP) 10 mg per mL injection | e Change | 20 12:59 | mcg/min | mL/hr | | | Intravenous, CONTINUOUS PRN, | | PM PDT | | | | | Starting 12/24/19 at 0829, | | | | | | | Anesthesia Intra-op | | | | | | + + + +---------+-------+---+ + + +---------+-------+---+ | Rate/Dose Change | 12/24/19 | 25 | 0.2 | | | | 20 12:45 | mcg/min | mL/hr | | | | PM PDT | | | | + + +---------+-------+---+ | Rate/Dose Change | 12/24/19 | 15 | 0.1 | | | | 20 12:38 | mcg/min | mL/hr | | | | PM PDT | | | | + + +---------+-------+---+ +---+---+ | | | +---+---+ + +-------+ +-------+---+---+ | propofol (DIPRIVAN) injection | Given | 12/24/19 | 80 mg | | | | Intravenous, PRN, Starting Sun | | 20 8:08 | | | | | 12/24/19 at 0808, Anesthesia | | AM PDT | | | | | Intra-op | | | | | | + +-------+ +-------+---+---+ +---+---+ | | | +---+---+ + +-------+ +--------+---+---+ | protamine injection | Given | 12/24/19 | 250 mg | | | | Intravenous, PRN, Starting Wed | | 20 12:06 | | | | | 12/24/19 at 1206, Anesthesia | | PM PDT | | | | | Intra-op | | | | | | + +-------+ +--------+---+---+ +---+---+ | | | +---+---+ + +-------+ +-------+---+---+ | rocuronium (ZEMURON) injection | Given | 12/24/19 | 20 mg | | | | Intravenous, PRN, Starting Wed | | 20 11:44 | | | | | 12/24/19 at 0808, Anesthesia | | AM PDT | | | | | Intra-op | | | | | | + +-------+ +-------+---+---+ +-------+ +-------+---+---+ | Given | 12/24/19 | 20 mg | | | | | 20 9:52 | | | | | | AM PDT | | | | +-------+ +-------+---+---+ | Given | 12/24/19 | 30 mg | | | | | 20 9:24 | | | | | | AM PDT | | | | +-------+ +-------+---+---+ +---+---+ | | | +---+---+ + +---------+ +---+---+---+ | sodium chloride 0.9% (NS) | New Bag | 12/24/19 | | | | | infusion Intravenous, CONTINUOUS | | 20 7:56 | | | | | PRN, Starting 12/24/19 at | | AM PDT | | | | | 0756, Anesthesia Intra-op | | | | | | + +---------+ +---+---+---+ +---+---+ | | | +---+---+ documented in this encounter"
--- OUTSIDE RECORDS SUMMARY | ~2020-01-05 | XMS | Encounter Summary ---
Demographics + + + | Address | [address] | | | [place] [address] | + + + | Home Phone | | + + + | Preferred Language | Unknown | + + + | Marital Status | | + + + | Advent Affiliation | Unknown | + + + [...] | | | | | [place] [address] | | + + + + + | Alvaro Newton | ECON | Unknown | | + + + + + Care Team Providers + +------+ + | Care Anchor Tacker Name | Role | Phone | + +------+ + | Sheng Combs MD | PCP | | + +------+ + Reason for Visit + + + | Reason | Comments | + + + | Anticoagulation | | + + + Encounter Details +--------+---------+ + + + | Date | Type | Department | Care Team | Description | +--------+---------+ + + + | 01/04/ | Office | [facility] | Kenroy Greenberg, | Arrived | | 2020 | Visit | [address] | [place] [address] | | | | | [place] | [place] | | | | | [address] | [id number] | | | | | [phone] | | | +--------+---------+ + + + [...] + + + | Blood Pressure | 112/60 | 01/05/2020 1:40 PM | | | | | PDT | | + + + + + | Pulse | 142 | 01/05/2020 1:40 PM | | | | | PDT | | + + + + + | Temperature | 36.9 C (98.4 F) | 01/05/2020 1:40 PM | | | | | PDT | | + + + + + | Respiratory Rate | - | - | | + + + + + | Oxygen Saturation | 100% | 01/05/2020 1:40 PM | | | | | PDT [...] documented as of this encounter Progress Notes Kenroy Greenberg ARNP - 01/05/2020 1:45 PM PDTFormatting of this note might be different f rom the original. [facility] Patient Name: Reilly Hamm | Age: 69 y.o. | : 1950 | Medical Record Deloris r:[id number] | Author: ARELY Hou | Date of Encounter: 01/05/2020 Subjective: HPI: Anticoagulation: Patient here for followup of chronic anticoagulation. Indication: No diagnosis found. Patient Findings Negatives: Signs/symptoms of thrombosis, Signs/symptoms of bleeding, Laboratory test erro r suspected, Change in health, Change in alcohol use, Change in activity, Upcoming invasive procedure, Emergency department visit, Upcoming dental procedure, Missed doses, Extra doses, Change in medications, Change in diet/appetite, Hospital admission, Bruising, Other complai nts Patient's medications, allergies, past medical, surgical, social and family histories were obtained and reviewed as appropriate. ROS: See HPI Objective: BP 112/60 | Pulse 142 | Temp 36.9 C (98.4 F) | SpO2 100% Physical Exam Constitutional: He is oriented to person, place, and time. He appears well-developed and we ll-nourished. Cardiovascular: Normal rate and regular rhythm. Pulmonary/Chest: Effort normal. He has no wheezes. He has no rales. Musculoskeletal: Normal range of motion. General: No tenderness, deformity or edema. Neurological: He is alert and oriented to person, place, and time. Skin: Skin is warm and dry. Anticoagulation Summary As of 01/05/2020 INR goal: 1.5-2.5 TTR: INR used for dosin.2 (01/05/2020) Warfarin maintenance plan: 1.5 mg (3 mg x 0.5) every Sat; 3 mg (3 mg x 1) all other days Weekly warfarin total: 19.5 mg Plan last modified: ARELY Agustin (01/01/2020) Next INR check: 01/08/2020 Target end date: 04/12/2020 Anticoagulation Episode Summary INR check location: Preferred lab: Send INR reminders to: Comments: Anticoagulation Care Providers Provider Role Specialty Phone number LEA Cavanaugh Referring Cardiothoracic Surgery [phone] Assessment/Plan: There are no diagnoses linked to this encounter. See Anticoagulation Summary above. Warfarin schedule adjusted. [id number] Calendar and Anticoagulant instructions reviewed with the patient. Electronically signed by: ARELY Hou 01/05/2020 at 1:48 PM PDT Portions of this chart may have been created with [employer] voice recognition software. Occasi onal wrong-word or sound-alike substitutions may have occurred due to the inherent mcgee itations of voice recognition software. Please read the chart carefully and recognize, using context, where these substitutions have occurred. documented in this encounter Plan of Treatment +--------+---------+ + + + | Date | Type | Specialty | Care Team | Description | +--------+---------+ + + + | 01/07/ | Office | Anticoagulation | Kenroy Greenberg, | | 2019 | Visit | | [facility] [address] | | | | | | [place] | | | | | | [id number] | | | | | | | | +--------+---------+ + + + | 01/15/ | Office | Cardiothoracic | Keaton Ernandez, | | | 2019 | Visit | Surgery | [address] | | | | | | [place] | | | | | | [place] [address] | | | | | | [phone] | | | | | | | | +--------+---------+ + + + | 01/20/ | Office | Cardiology | Valarie, | | | 2019 | Visit | | [address] | | | | | | [address] | | | | | | [place] | | | | | | [address] | | | | | | | | +--------+---------+ + + + | 01/20/ | Office | Infectious Diseases | Josh Mckeon DO | | | 2019 | Visit | | [address] | | | | | | [place] [address] | | | | | | [phone] | | | | | | | | +--------+---------+ + + + documented as of this encounter Procedures + +--------+ + + + | Procedure Name | Priori | Date/Time | Associated Diagnosis | Comments | | | ty | | | | + +--------+ + + + | POC PT/INR | Routin | 01/05/2020 | | Results for this | | FINGERSTICK | e | 1:45 PM | | procedure are in the | | | | PDT | | results section. | + +--------+ + + + documented in this encounter Results POCT PT/INR fingerstick (01/05/2020 1:45 PM PDT) + +-------+ + + + | Component | Value | Ref Range | Performed | Pathologist | | | | | At | Signature | + +-------+ + + + | INR, POC | 1.2 | 0.9 - 1.2 | | | + +-------+ + + + + + | Specimen | + + | Blood | + + documented in this encounter Visit Diagnoses Not on filedocumented in this encounter"
--- OUTSIDE RECORDS SUMMARY | ~2020-01-05 | XMS | Encounter Summary ---
Demographics + + + | Address | [address] | | | [place] [address] | + + + | Home Phone | | + + + | Preferred Language | Unknown | + + + | Marital Status | | + + + | Scientology Affiliation | Unknown | + + + | Race | Unknown | + + + | Ethnic Group | Not or | + + + Author + + + | Author | [facility] | | | and [place] | + + + | Organization | [facility] | | | [...] | | | | | [place] [address] | | + + + + + | Alvaro Newton | ECON | Unknown | | + + + + + Care Team Providers + +------+ + | Care Body Wirer Name | Role | Phone | + +------+ + | Sheng Combs MD | PCP | | + +------+ + Reason for Visit + +--------+ + | Reason | Onset | Comments | | | Date | | + +--------+ + | Care Coordination | 01/04/ | Lab result f/u | | | 2020 | | + +--------+ + Encounter Details +--------+ + + + + | Date | Type | Department | Care Team | Description | +--------+ + + + + | 01/04/ | Telephone | [facility] | Joana Guevara, | Care Coordination | | 2020 | | INFECTIOUS DISEASE | Traffic Checker | (Lab result f/u) | | | | [address] | | | | | | [place] | | | | | | [address] | | | | | | [phone] | | | +--------+ + + + [...] this encounter Miscellaneous Notes Telephone Encounter - Joana Guevara Traffic Checker - 01/05/2020 1:19 PM PDT01/05/2020 : I called [facility] x3 and requested labs as I have not received results from 01/02/20. I spoke to Yashira and she stated that the faxes are down and they are not able to fax at the moment. IT is fixing issue. Once ready she will fax results to our office. I provided her with front office fax. elephone Encounter - Joana Guevara Medical Assistant - 01/05/2020 11:33 AM PDT 020: I called [facility] and requested labs from 01/02/2020 x2. Waiting to receive lab results for Dr. Dwyer to review. elepho ne Encounter - Joana Guevara Medical Assistant - 01/05/2020 11:07 AM PDT----- Message from Maddi Dwyer MD sent at 01/02/2020 4:57 PM PDT ----- Milka, Received phone call from lab about platelet critical at 5k. Can we request [place] to re-draw CBC tomorrow? Thanks,KP dofrancis mims in this encounter Plan of Treatment +--------+---------+ + + + | Date | Type | Specialty | Care Team | Description | +--------+---------+ + + + | 01/07/ | Office | Anticoagulation | Kenroy Greenberg, | | | 2019 | Visit | | [address] | | | | | | [place] | | | | | | [address] | | | | | | | | +--------+---------+ + + + | 01/15/ | Office | Cardiothoracic | Keaton Ernandez, | | | 2019 | Visit | Surgery | [address] | | | | | | [place] | | | | | | [place] [address] | | | | | | [phone] | | | | | | | | +--------+---------+ + + + | 01/20/ | Office | Cardiology | Valarie, | | | 2019 | Visit | | [address] | | | | | | [address] | | | | | | [place] | | | | | | [address] | | | | | | | | +--------+---------+ + + + | 01/20/ | Office | Infectious Diseases | Josh Mckeon DO | | | 2020 | Visit | | [address] | | | | | | [place] [address] | | | | | | [phone] | | | | | | | | +--------+---------+ + + + documented as of this encounter Visit Diagnoses Not on filedocumented in this encounter"
--- OUTSIDE RECORDS SUMMARY | ~2020-01-05 | XMS | Encounter Summary ---
Demographics + + + | Address | [address] | | | [place] [address] | + + + | Home Phone | | + + + | Preferred Language | Unknown | + + + | Marital Status | | + + + | Yarsani Affiliation | Unknown | + + + | Race | Unknown | + + + | Ethnic Group | Not or | + + + Author + + + | Author | [facility] | | | and [place] | + + + | Organization | [facility] | | | and [...] | | | | | [place] [address] | | + + + + + | Alvaro Newton | ECON | Unknown | | + + + + + Care Team Providers + +------+ + | Care Arc Air Operator Name | Role | Phone | + +------+ + | Sheng Combs MD | PCP | | + +------+ + Reason for Visit + +--------+ + | Reason | Onset | Comments | | | Date | | + +--------+ + | Follow-up(Procedure) | 08/24/ | MVR - tachycardia | | | 2020 | | + +--------+ + Encounter Details +--------+ + + + + | Date | Type | Department | Care Team | Description | +--------+ + + + + | 01/04/ | Telephone | [facility] | Reilly Galvan, | Follow-up(Procedure) | | 2019 | | CARDIOTHORACIC | [address] | (MVR - tachycardia) | | | | SURGERY [address] | | | | | [address] | [place] [address] | | | | | [place], [place] | [phone] | | | | | [address] | | | | | | [phone] | | | +--------+ + + + [...] this encounter Miscellaneous Notes Telephone Encounter - Elda Whitmore RN - 01/05/2020 4:43 PM PDTReceived call patient's spouse Nathalie verified two patient identifiers with concerns of elevated heart rate. Surgery/Procedure: 12/24/2019 Dr. 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 Spouse repeated while on phon e HR 142. Patient denies SOB, fatigue, dizziness, chest pain, or sensation of rapid heart r ate, spouse states "he says he feels flat, he feels fine", relaying that he is currently rec lined in his chair elevating feet. Spouse states patient reported he felt excitement going t o the dentist today, reports previously had teeth extraction at last visit. pharmacy consultant provider notified, recommendations received with read back per CHRISTEN Cavanaugh advised if asymptomatic to monitor and f/u on status tomorrow. Spoke with spouse relayed instructions, advised if patient develops SOB, chest pain, dizzin ess, fatigue, or increasing HR >150 needs ED evaluation. Informed spouse RN to call tomorrow morning for update and recommended continue to monitor hourly, call clinic if she has furth er questions or concerns. Nathalie verbalized understanding and agreed with plan of care. Elect ronically signed by Elda Whitmore RN at 01/05/2020 5:03 PM PDTdocumented in this encounte r Plan of Treatment +--------+---------+ + + + | Date | Type | Specialty | Care Team | Description | +--------+---------+ + + + | 01/07/ | Office | Anticoagulation | Kenroy Greenberg, | | 2019 | Visit | | [facility] [address] | | | | | | [place] | | | | | | [id number] | | | | | | | | +--------+---------+ + + + | 01/15/ | Office | Cardiothoracic | Keaton Ernandez, | | 2019 | Visit | Surgery | [address] | | | | | | [place], | | | | | | [place] [address] | | | | | | [phone] | | | | | | | | +--------+---------+ + + + | 01/20/ | Office | Cardiology | Valarie, | | | 2019 | Visit | | [address] | | | | | | [address] | | | | | | [place] | | | | | | [address] | | | | | | | | +--------+---------+ + + + | 01/20/ | Office | Infectious Diseases | Josh Mckeon DO | | | 2019 | Visit | | [address] | | | | | | [place] [address] | | | | | | [phone] | | | | | | | | +--------+---------+ + + + documented as of this encounter Visit Diagnoses Not on filedocumented in this encounter
--- OUTSIDE RECORDS SUMMARY | ~2020-01-05 | XMS | Encounter Summary ---
Demographics + + + | Address | [address] | | | [place] [address] | + + + | Home Phone | | + + + | Preferred Language | Unknown | + + + | Marital Status | | + + + | Alevism Affiliation | Unknown | + + + | Race | Unknown | + + + | Ethnic Group | Not or | + + + Author + + + | Author | Merged With [facility] | | | and [facility] | + + + | Organization | Merged With [facility] | | | [...] | | | | | [place] [address] | | + + + + + | Alvaro Newton | ECON | Unknown | | + + + + + Care Team Providers + +------+ + | Care Coordinate Measuring Machine Technician Name | Role | Phone | + +------+ + | Sheng Combs MD | PCP | | + +------+ + Reason for Referral Evaluate & Treat (Routine) + + + + + + + | Status | Reason | Specialty | Diagnoses / | Referred By | Referred To | | | | | Procedures | Contact | Contact | + + + + + + + | Pending | Specialty | Home Health | Diagnoses | Awais, | | | Review | Services | Services | S/P MVR | Ke[place], | | | | Required | | (mitral | [place] [address] | | | | | | valve | [address] | | | | | | replacement) | [place] | | | | | | | [place] | | | | | | | [address] | | | | | | | Phone: | | | | | | | [phone] | | | | | | | Fax: | | | | | | | [phone] | | + + + + + + + Evaluate & Treat (Routine) + + + + + + + | Status | Reason | Specialty | Diagnoses / | Referred By | Referred To | | | | | Procedures | Contact | Contact | + + + + + + + | Pending | Specialty | Anticoagulati | Diagnoses | Awais, | | | Review | Services | on | S/P MVR | [place], | | | | Required | | (mitral | [place] [address] | | | | | | valve | [address] | | | | | | replacement) | [place] | | | | | | | [place] | | | | | | | [address] | | | | | | | Phone: | | | | | | | [phone] | | | | | | | Fax: | | | | | | | [phone] | | + + + + + + + Reason for Visit Auth/Cert +--------+--------+ + + + + | Status | Reason | Specialty | Diagnoses / | Referred By | Referred To | | | | | Procedures | Contact | Contact | +--------+--------+ + + + + | | | | Diagnoses | | Letona, | | | | | Acute | | Jeet Aaron MD | | | | | bacterial | | [address] | | | | | endocarditis | | [address] | | | | | | | [place] | | | | | Endocarditis | | [place] | | | | | of mitral | | [address] Phone: | | | | | valve | | [phone] | | | | | Severe | | Fax: | | | | | mitral | | [phone] | | | | | regurgitatio | | | | | | | n | | | | | | | Procedures | | | | | | | [place] L HRT | | | | | [...] | +--------+ + + + + | 12/15/ | Hospital | [facility] | Reilly Hart MD | S/P MVR (mitral | | 2019 - | Encounter | [facility] | [address] | valve repair) | | | | [address] | [place] [address] | (Primary Dx); Acute | | 12/30/ | | [place], [place] | [phone] | bacterial | | 2020 | | [address] | | endocarditis; | | | | [phone] | Monty Major MD | Diet-controlled | | | | | [address] | diabetes mellitus | | | | | [place] [address] | (HCC); Subacute | | | | | [phone] | bacterial | | | | | | endocarditis; | | | | | Aki Youssef | Endocarditis of | | | | | Yao Aaron MD [address] | mitral valve; Gram | | | | | [address]VD [place], [place] | positive bacterial | | | | | [address] | infection; | | | | | | 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, | spleen; Weight loss; | | | | | PhD [address] | Poor dentition; | | | | | [address] | Severe mitral | | | | | [place] [address] | regurgitation; | | | | | [phone] | Severe | | | | | | protein-calorie | | | | | | malnutrition (HCC); | | | | | | Endocarditis of | | | | | | mitral valve; | | | | | | 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 | | | | | | (HCC); Status post | | | | | | mitral valve | | | | | | replacement; | | | | | | Viridans | | | | | | streptococci | | | | | | infection; Splenic | | | | | | infarct; Mitral | | | | | | valve replaced; S/P | | | | | | MVR (mitral valve | | | | | | replacement); First | | | | | | degree AV block; ASD | | | | | | (atrial septal | | | | | | defect); Septic | | | | | | embolism ([facility]); | | | | | | Bacterial | | | | | | endocarditis, | | | | | | unspecified | | | | | | chronicity; | | | | | | Streptococcal | | | | | | bacteremia | +--------+ + + + + Social [...] + + + | Blood Pressure | 116/56 | 12/31/2019 7:44 AM | | | | | PDT | | + + + + + | Pulse | 80 | 12/31/2019 7:44 AM | | | | | PDT | | + + + + + | Temperature | 36.8 C (98.3 F) | 12/31/2019 7:44 AM | | | | | PDT | | + + + + + | Respiratory Rate | 18 | 12/31/2019 7:44 AM | | | | | PDT | | + + + + + | Oxygen Saturation | 98% | 12/31/2019 7:44 AM | | | | | PDT | | + + + + + | Inhaled Oxygen | - | - | | | Concentration | | | | + + + + + | Weight | 61 kg (134 lb 7.7 | 12/31/2019 6:00 AM | | | | oz) | [...] Reilly Hamm AGE/SEX: 69 y.o. male ROOM: 91/9111-01 : 1950 PCP: Sheng Combs MD Date/Time:12/31/2019 [...] mitral regurgitation BRIEF HISTORY OF PRESENTATION: Reilly Hmam is a 69 y.o. male w/ severe [...] CV LHC; Surgeon: Jeet Tejeda MD; [place] [facility] [place] CARDIAC CATHERIZATION N/A 12/19/2019 Procedure: CV COR ANGIO; Surgeon: Jeet Tejeda MD; [place] [facility] [place] CARDIAC CATHERIZATION Left 12/19/2019 Procedure: CV LV; Surgeon: Jeet Tejeda MD; [place] [facility] [place] MITRAL VALVE REPLACEMENT N/A 12/24/2019 Procedure: MITRAL VALVE REPLACEMENT; Surgeon: Reilly Galvan MD PhD; [place] [facility] [place]STI N OR TOOTH EXTRACTION N/A 12/20/2019 Procedure: EXTRACTION TEETH; Surgeon: Job Menjivar DMD; [place] [facility] [place] Allergies Allergen [...] by valorie th Daily 30 tablet 0 DISCHARGE EXAM Vital [...] to start cardiac rehabilitation in accordance with manager garden recommendations. Pt advised not to drive for [...] manage prescriptions until pt has seen seen Auto Service Writer and Primary Care Physician, who will resume [...] Requested: 1 Follow up: Reilly Galvan MD PhD [address] [place] [facility] [id number] Schedule an appointment as soon as possible for a visit in 2 weeks Post-op Jeet Tejeda MD [address] [place] [facility] [id number] Schedule an appointment as soon as possible for a visit in 2 weeks Post-op Maddi Dwyer MD [address] [facility] [id number] Schedule an appointment as soon as possible for a visit in 2 weeks Post-op Sheng Combs MD [address] [facility] [address] [place] [address] You have an upcoming appointment on at [...] 2wks. Our office will call you to [facility] a time. Please call [phone] for questions/concerns Follow up with your Auto Service Writer, Dr. Tejeda, in 2 weeks. Please make an appointment. Follow up with your Infectious Disease, Dr. Dwyer, in 2 weeks. Please make an appoint ment. Follow up with your Primary Care Physician in 3-4 weeks. Please make an appointment. General Instructions Follow the instructions in the the [facility] Cardiac Surgery Navigation Guide. This guide is a n excellent resource for concerns you and your family may have as you heal from surgery. Watch the [facility] Heart Surgery video on YouTube: https://www.youtube.com/watch?v=wVhnUgi9PY M The [facility] Cardiothoracic Surgery office will contact you within 72 hours of your hospital discharge. If you do not receive a phone call or have any concerns before then, please call our office Mon-Fri 8:00am-5:00pm at [phone]. Please make sure we have the best [...] mins each). Referred to you by your manager garden. Post-op week 10-12: Sternum is approximately 90-100% [...] Follow the home care instructions in the [facility] Cardiac Surgery Navigation Guide. Please monitor your weight, blood pressure, heart rate and blood glucose daily (diabetics o nly) daily. Notify the [facility] Cardiothoracic Surgery office if: Any weight [...] temporary, other changes are related to your intermediate health maintenance. Ultimately your manager garden or [facility] care physician will determine what medications you should continue after you recover f rom surgery. Only take the medications on your Discharge Medication List when you leave the hospital. Review the list with your nurse prior to leaving the hospital and at the pharmacy when p icking up your medications. Cardiothoracic Surgery will manage prescriptions until you have seen your Auto Service Writer a de Primary Care Physician, in which they will [...] removed at your follow up visit with [facility] Cardiothoracic Surge ry - no later [...] to the breast bone. Cardiac Rehabilitation: Your Auto Service Writer will refer you to Outpatient Cardiac Rehabilitation. [...] and about 1 hour per visit. Your manager garden will provide you with a r eferral [...] factors as you can. Work with your [facility] care provider to identify your risk factors [...] pharmacist before buying any prescription or ov cb-jma-nqsplba medication. Managing Pain After Bypass Surgery Taking [...] strain that is spread mainly from pers gn-lz-tgneze through respiratory droplets when an infected person [...] are not available, use an alcohol-based hand emanations analysis technician with at least 60 % alcohol covering [...] and need to call 911, notify the fur operator that you have or think you [...] COVID-19 symptoms, residents in nursing facilities or halfway communities or home health, or those who are high risk (older adults, chronic diseases, immunosuppressed) justine sparks be prioritized for testing. These recommendations may [...] or preparing your food. ? Use hand emanations analysis technician if soap and water are not available. [...] with soap and water or in the religious healer/washer. ? Call ahead before visiting your doctor. [...] local public health website. CDC: COVID-19: https://www.cdc.gov/coronavirus/2019-ncov/index.html [place] Coronavirus Advisory: https://www.providence.org/dtpijkmq-fhu-gojcqzqi/harlan burrell-advisory Virtual Visits Available https://virtual.nap- Naturally Attached Parents.org/ documented in this encounter Medications at Time [...] private vehicle with daughter. Jannette Solis RN enafJannette camacho RN - 12/30/2019 6:27 PM PDTVS stable. Pt staying another night d/t IV ABX not arriving at pt's home. Pt's daughter and at bedside for IV infusion teaching and discharge educati on. All questions answered. AVS reviewed and discharge time set for 1000 tomorrow, pt and destiny luque voiced understanding. Jannette Solis RN hPilar monreal RN - 12/30/2019 12:10 PM PDTProvidence [facility] will provide AR[facility] therapy starting 12/30 after 0900 dose. grain farmer teach today 12/29 at [facility] at 1400 with and daughter. Delivery of medication and supplies to [facility] by 900 12/30 for 2100 dose at home. Patient will need to re ceive his 0900 dose inpatient 12/30 prior to discharge. [facility] will follow patie nt weekly for picc line dressing changes, labs as ordered as well as providing nursing suppo rt as needed. Thank you. Pilar Gonzalez RN [phone] CM: patient will need to discharge in the am (its an hour drive) to make it to his 1045 cou madin appt in [place] (per ). Electronically signed by Pilar Gonzalez RN at 2019 12:16 PM Maddi Farah MD - 12/30/2019 8:19 AM PDTFormatting of this note joi ht be different from the original. [facility] Service: Infectious Disease Progress Note Hospital Day: LOS: 15 days Post-Op Day: 7 Days Post-Op SUBJECTIVE Patient Summary: RE: Endocarditis Chart reviewed. From Dr. Tejdea's note: 69 y.o. male transferred from 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 [facility] with those complaints.Laborato ry evaluation was [...] and was discharged. He then presented to [facility] 12/15/2019 with altered mental status and fever to 104F.He was found to have multiple laboratory abnormalities includingelevated white blood cell countwith bandemia, anemia with hemoglobin 8.3 (was 1 1.7on 10/31/19), lactic acidosis, blood cultures x3krwkaegs withgram-positive cocci in chains, identified as S. [...] demonstratedNSR with a rate of 97, short [place] andPACs .A repeat echo at [facility] showed preserved LV systolic function with a largemobilevegeta tion attached to the posterior leaflet of the mitral valve with severe eccentric anterior MR .There isalso a small ASD with mild onju-lf-xrjux atrial shunting, as well as mild TR [...] the clinical evaluation DATA Recent Labs Lab 12/30/190 12/29/19 0536 12/28/19 [...] 7.341* 7.382 7.330* PO2ART 160* 153* 230* [id number] 40 33* 43 [id number] 99* 99* 100* Recent Labs Lab 12/30/19 [...] seizure activity High-dose twice daily ceftriaxone for CLINICAL APPLICATIONS MANAGER coverage as outlined above Case Management consulted [...] Status: Full Code Maddi Dwyer MD 12/31/2019 ocortneys, LEA Valenzuela - 12/30/2019 8:15 AM PDTFormatting of this note might be different from the [facility] Service: Cardiothoracic Surgery Progress Note ROOM: [address] [place] [address] Hospital Day: LOS: 14 days Post-Op Day: [...] Denzel Pryor MD LABS: Recent Labs Lab 12/30/1944912/29/19 0536 12/28/19 0339 WBC 8.39 7.35 9.94 [...] 7.341* 7.382 7.330* PO2ART 160* 153* 230* [id number] 40 33* 43 [id number] 99* 99* 100* Recent Labs Lab 12/30/19 [...] LEA Cavanaugh 12/30/2019 Sheila Nicholson M A, CCC-MANAGING MANAGER - 12/29/2019 2:53 PM PDTMISSED THERAPY VISIT Speech Therapy attempted to see the following patient today: Reilly Hamm Missed Visit (patient unavailable) - working with OT. SHEILA PILLAI MA, CCC-MANAGING MANAGER 12/29/2019 Pilar Champagne RN - 12/29/2019 2:34 PM PDTProvidence Infusion received referral for home ARSH. W ill investigate benefits. Thank you. Pilar Gonzalez RN [phone] 1640: [facility] Liaison spoke with patient's , she [...] might be differe nt from the original. [facility] Service: Infectious Disease Progress Note Hospital Day: LOS: 13 days Post-Op Day: 5 Days Post-Op SUBJECTIVE Patient Summary: RE: Endocarditis Chart reviewed. From Dr. Tejeda's note: 69 y.o. male transferred from 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 He [facility] 10[facility] with those complaints.Laborato ry evaluation was [...] and was discharged. He then presented to [facility] 12/15/2019 with altered mental status and fever to 104F.He was found to have multiple laboratory abnormalities includingelevated white blood cell countwith bandemia, anemia with hemoglobin 8.3 (was 1 1.7on 10/31/19), lactic acidosis, blood cultures [id number] withgram-positive cocci in chains, identified as S. [...] demonstratedNSR with a rate of 97, short [place] andPACs .A repeat echo at [facility] showed preserved LV systolic function with a largemobilevegeta tion attached to the posterior leaflet of the mitral valve with severe eccentric anterior MR .There isalso a small ASD with mild iorc-bc-ikzuv atrial shunting, as well as mild TR [...] seizure activity High-dose twice daily ceftriaxone for CLINICAL APPLICATIONS MANAGER coverage as outlined above Case discussed with case management Code Status: Full Code Maddi Dwyer MD 12/29/2019 oggs, LEA Valenzuela - 12/29/2019 7:28 AM PDTFormatting of this note might be different from the willie alba [facility] Service: Cardiothoracic Surgery Progress Note ROOM: [address] [place] [address] Hospital Day: LOS: 13 days Post-Op Day: [...] 7.341* 7.382 7.330* PO2ART 160* 153* 230* [id number] 40 33* 43 [id number] 99* 99* 100* Recent Labs Lab 12/29/19 [...] Code Status: Full Code LEA Cavanaugh 12/29/2019 unlow, Nj Figueroa RN - 6:53 PM PDTA/O, forgetful at times, calm and cooperative, transfer from ICU today, plan for MRI now that pacer wires are removed ([id number]), tolerating diet, no N/V, denies pain, afebrile, sutures in mouth intact, would like to visit tomorrow Electronically signed by: Nj Curtis RN 12/28/2019 6:54 PM PDT rancisco, Sonia Paul mD - 12/28/2019 5:54 PM PDT Warfarin [...] and modify therapy as indicated. Whit Singh, Marcus 5:27 PM PDT 12/28/2019 Megan Coelho, RD - 12/28/2019 11:22 AM PDTFormatting of this note might be different from the [facility] g[facility]. NUTRITION NOTE Summary High Risk Follow [...] dependent edema Digestive System (Mouth to Rectum): MANAGING MANAGER following; BM on 12/26; missing teeth Nerves [...] loss. Recommendations General Diet with consistencies per MANAGING MANAGER recommendations Chocolate Magic Cup BID at snack times Encourage intake of nutrient-dense, protein-rich food choices, as tolerated Consider appetite stimulant, as indicated Monitor diet tolerance, adequacy of intake, weight trend, labs, hydration status, and stool ing patterns. Nutritional Risk and Follow-Up Level of Risk: Moderate-High Required Follow Up: 4 days(; 12/31) Megan Cardona, -MPH, RDN 12/28/2019 11:22 AM PDT Nimesh Canales PA - 12/28/2019 7:44 AM PDTFormatting of this note might be different from th e original. [facility] Service: Cardiothoracic Surgery Progress Note ROOM: [address] [place] [address] Hospital Day: LOS: 12 days Post-Op Day: [...] Pryor MD LABS: Recent Labs Lab 12/28/19 03312/27/19 0358 12/26/19 0315 WBC 9.94 12.04* 11.09* [...] 7.341* 7.382 7.330* PO2ART 160* 153* 230* [id number] 40 33* 43 [id number] 99* 99* 100* Recent Labs Lab 12/24/19 [...] then to daily till per Dr Real fgiueroa ID. S/P MVR -- D/C pwires today [...] might be differe nt from the original. [facility] Service: Infectious Disease Progress Note Hospital Day: LOS: 12 days Post-Op Day: 4 Days Post-Op SUBJECTIVE Patient Summary: RE: Endocarditis Chart reviewed. From Dr. Tejeda's note: 69 y.o. male transferred from 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 He initially[facility]ed [facility] 10/31/2019 with those complaints.Laborato ry evaluation was [...] and was discharged. He then presented to [facility] 12/15/2019 with altered mental status and fever to 104F.He was found to have multiple laboratory abnormalities includingelevated white blood cell countwith bandemia, anemia with hemoglobin 8.3 (was 1 1.7on 10/31/19), lactic acidosis, blood cultures s5kitlzswp withgram-positive cocci in chains, identified as S. [...] demonstratedNSR with a rate of 97, short [place] andPACs .A repeat echo at [facility] showed preserved LV systolic function with a largemobilevegeta tion attached to the posterior leaflet of the mitral valve with severe eccentric anterior MR .There isalso a small ASD with mild uwrp-hn-ctdex atrial shunting, as well as mild TR [...] to the preoperative study, done 12/16/2019 at [facility]. PROBLEM LIST Principal Problem: Status post mitral [...] seizure activity High-dose twice daily ceftriaxone for CLINICAL APPLICATIONS MANAGER coverage. Code Status: Full Code Maddi Dwyer MD 12/28/2019 Justine Pandya RN - 12/27/2019 5:27 PM PDTPatient's orientation much improved today. Able to make needs known and is alert and oriented. Occasionally he is impulsive and requires frequent re direction and education on sternal precautions. Nimesh Canales PA - 12/27/2019 3:[address] [facility] Interim Note Pt. Name/Age/: Reilly Hamm 69 y.o. 1950 Med. Record Number: [id number] Subjective General: just finished walking w PT. [...] by: LEA Evans 12/27/2019 3:10 PM PDT [facility] Diana Canales PA - 12/27/2019 8:04 AM PDT [facility] Service: Cardiothoracic Surgery Progress Note ROOM: [facility]/[address]-48 Hospital Day: LOS: 11 days Post-Op Day: [...] 7.341* 7.382 7.330* PO2ART 160* 153* 230* [id number] 40 33* 43 [id number] 99* 99* 100* Recent Labs Lab 12/24/19 [...] Farah MD - 12/27/2019 6:10 AM PDT [facility] Service: Infectious Disease Progress Note Hospital Day: LOS: 11 days Post-Op Day: 3 Days Post-Op SUBJECTIVE Patient Summary: RE: Endocarditis Chart reviewed. From Dr. Tejeda's note: 69 y.o. male transferred from 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 He initiallypresented to [facility] 10/31/2019 with those complaints.Laborato ry evaluation was [...] and was discharged. He then presented to [facility] 12/15/2019 with altered mental status and fever to 104F.He was found to have multiple laboratory abnormalities includingelevated white blood cell countwith bandemia, anemia with hemoglobin 8.3 (was 1 1.7on 10/31/19), lactic acidosis, blood cultures o5envuwgvz withgram-positive cocci in chains, identified as S. [...] demonstratedNSR with a rate of 97, short [place] andPACs .A repeat echo at [facility] showed preserved LV systolic function with a largemobilevegeta tion attached to the posterior leaflet of the mitral valve with severe eccentric anterior MR .There isalso a small ASD with mild axto-yv-hrxuk atrial shunting, as well as mild TR [...] Premature atrial complexes are no longer Present [place] interval has increased Vent. rate has decreased BY 56 BPM T wave inversion now evident in Anterolateral leads Confirmed by EARNESTINE GARZA MD ([id number]) on 12/26/2019 3:17:52 PM POC Glucose Collection [...] to the preoperative study, done 12/16/2019 at [facility]. PROBLEM LIST Principal Problem: Status post mitral [...] seizure activity High-dose twice daily ceftriaxone for CLINICAL APPLICATIONS MANAGER coverage. 8. Pulmonary edema: Resolved; O2 sats stable in room air Code Status: Full Code Maddi Dwyer MD 12/27/2019 Karina Marcus MD - 12/27/2019 3:27 AM PDTFormatting of this note might be different f rom the original. [facility] Service: Citrus Fruit Colorer Progress Note Reilly Hamm 69 y.o. Hospital Day: LOS: 11 days Post-Op Day: 1 Day Post-Op Consulting Physicians Treatment Team: Jeet Tejeda MD; Jef Ryan MD; Maddi Dwyer MD SUBJECTIVE Patient Summary: The patient is a 69 y.o. male with significant past medical history of diabetes mellitus who presented to [facility] 12/14 due to a 4 month history of we akness and 1 month history of fevers. Echocardiogram was perfromed which revealed mitral johnny ve endocarditis with mitral valve regurgitation. He was started on zosyn and cefipime. Blood cultures obtained on admission grew out GPC in chains in 2/2 bottles. He was transferred to [facility] for further management on 12/16 and [...] maintained on 2g ceftriaxo ne Q12 for CLINICAL APPLICATIONS MANAGER coverage. His carious teeth were removed by [...] postoperatively with resulting postictal state - daina kay due to septic emboli. ? On Keppra [...] Titrate O2 to keep sats >92% GI/NUTRITION: MANAGING MANAGER cleared for pureed diet with 1 DMA [...] Abx per ID. on ceftriaxone 2gm for CLINICAL APPLICATIONS MANAGER coverage BID until 01/03/20 then change to [...] L sided weakness PT Visit Summary Having MANAGING MANAGER consult Alexi Lerner MD - 12/26/2019 9:16 AM PDTFormatting of this note might be different fro m the original. [facility] Service: Infectious Diseases Progress [...] Awake, cranial nerves intact. Follows commands. Location: [facility] [place]. LABS: All labs were reviewed. Recent Results [...] Units Date/Time Culture, Tissue, Smear, with Anaerobes [[id number]] Collected: 12/24/19 1020 Order Status: Completed Lab Status: Preliminary result Updated: 12/25/19 1351 Specimen: Tissue from Heart, Valve, Mitral Gram Stain Result NO CELLS OR ORGANISMS SEEN RESULT NO GROWTH AT THIS TIME RESULT Testing performed at [facility], [address] [place] [address] 93991 Comment: Testing performed at [facility], [address] [place] [address] 88338 Coronavirus (COVID-19) NAAT [[id number]] Collected: 12/24/19 0646 Order Status: Completed Lab Status: Final result Updated: 12/24/19 0749 Specimen: Tissue from Nasopharynx SARS-CoV-2, NAAT (COVID-19) NEGATIVE Comment: This test was developed and its performance characteristics determined by [employer]. It has not been cleared or approved by the [place] FDA. This test has been authorized by FDA under an Emergency Use Authorization (EUA). Clinicians should be advised to consider a patients signs, symptoms, history, and results of other diagnostic tests when interpreting results. [place] [facility] [place] [place] [address]194 Coronavirus (COVID-19) NAAT [[id number]] Collected: 12/16/19 2314 Order Status: Completed Lab Status: Final result Updated: 12/17/19 0022 SARS-CoV-2, NAAT (COVID-19) NEGATIVE Comment: This test was developed and its performance characteristics determined by [employer]. It has not been cleared or approved by the [place] FDA. This test has been authorized by FDA under an Emergency Use Authorization (EUA). Clinicians should be advised to consider a patients signs, symptoms, history, and results of other diagnostic tests when interpreting results. Testing performed at [facility] [place] [place] [address] 69914 Coronavirus (COVID-19) NAAT [[id number]] Collected: 12/16/192135 Order Status: Canceled Lab Status: No result Specimen: Tissue from Nasopharynx Culture, Blood [[id number]] Collected: 12/16/191924 Order Status: Completed Lab Status: Final result Updated: 12/23/19 0707 Specimen: Peripheral Blood Special Requests RIGHT HAND Special Requests Testing performed at [facility] [place] [place] [address] 92696 RESULT NO GROWTH 6 DAYS RESULT Testing performed at [facility], [address] [place] [address] Comment: Testing performed at [facility], [address] [place] [address] 73620 Culture, Blood [[id number]] Collected: 12/16/191924 Order Status: Completed Lab Status: Final result Updated: 12/23/19 0707 Specimen: Peripheral Blood Special Requests LEFT HAND Special Requests Testing performed at [facility] [place] [place] [address] 44223 RESULT NO GROWTH 6 DAYS RESULT Testing performed at [facility], [address] [place] [address] 55160 Comment: Testing performed at [facility], [address] [place] [address] 70868 Microbiology Results (72 hrs) Procedure Component Value Units Date/Time Culture, Tissue, Smear, with Anaerobes [[id number]] Collected: 12/24/19 1020 Order Status: Completed Lab Status: Preliminary result Updated: 12/25/19 1351 Specimen: Tissue from Heart, Valve, Mitral Gram Stain Result NO CELLS OR ORGANISMS SEEN RESULT NO GROWTH AT THIS TIME RESULT Testing performed at [facility], [address] [place] [address] 55979 Comment: Testing performed at [facility], [address] [place] [address] 35548 Coronavirus (COVID-19) NAAT [[id number]] Collected: 12/24/19 0646 Order Status: Completed Lab Status: Final result Updated: 12/24/19 0749 Specimen: Tissue from Nasopharynx SARS-CoV-2, NAAT (COVID-19) NEGATIVE Comment: This test was developed and its performance characteristics determined by [employer]. It has not been cleared or approved by the [place] FDA. This test has been authorized by FDA under an Emergency Use Authorization (EUA). Clinicians should be advised to consider a patients signs, symptoms, history, and results of other diagnostic tests when interpreting results. Testing performed at [facility] [place] [place] [address] 81785 IMAGING: CXR images were reviewed. Images dated [...] of microhemorrhage. High-dose twice daily ceftriaxone for CLINICAL APPLICATIONS MANAGER coverage. 8. Pulmonary edema: Responded well to [...] might be different from the willie smith. [facility] Service: Cardiology Progress Note Date of Admission: 12/16/2019 BRIEF CLINICAL HISTORY: 69 y.o. male transferred from [facility] for iqugmiut dari ral valve endocarditis with severe mitral [...] but no lightheadedness/syncope. He initially presented to [facility] 10/31/2019 with those complaints. Laboratory evaluation was [...] wa s discharged. He then presented to [facility] 12/15/2019 with altered mental stat [...] NSR with a rate of 97, short [place] and PACs. A repeat echo at [facility] showed preserved LV systolic function with a large mobile vegetation attached to the posterior siria flet of the mitral valve with severe eccentric anterior MR. There is also a small ASD with mild posi-rq-xldqq atrial shunting, as well as mild TR [...] CV LHC; Surgeon: Jeet Tejeda MD; [place] [facility] [place] LAB CARDIAC CATHERIZATION N/A 12/19/2019 Procedure: CV COR ANGIO; Surgeon: Jeet Tejeda MD; [place] [facility] [place] LAB CARDIAC CATHERIZATION Left 12/19/2019 Procedure: CV LV; Surgeon: Jeet Tejeda MD; [place] [facility] [place] LAB MITRAL VALVE REPLACEMENT N/A 12/24/2019 Procedure: MITRAL VALVE REPLACEMENT; Surgeon: Reilly Galvan MD PhD; [place] [facility] [place] CHRISTI N OR TOOTH EXTRACTION N/A 12/20/2019 Procedure: EXTRACTION TEETH; Surgeon: Job Menjivar DMD; [place] [facility] [place] Allergies Allergen [...] BMI 24.80 kg/m TELEMETRY: Sinus bradycardia I/O: 2084 / 718, CT 150 GENERAL: Ill-appearing 69 yo M [...] not displayed. BLOOD C&S: + for Step dariis EKG (12/26/19): Sinus bradycardia, 57, 1st degree [...] 2. 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 (10/31/19 - [facility]): EF 55-60%. Impaired relaxation compatible with diastolic [...] valve replaced ASSESSMENT & PLAN 1. 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 [...] Garza MD covering Code Status: Full Code Reilly Townsend MD PhD - 12/26/2019 7:53 AM PDT [facility] Service: Cardiothoracic Surgery Progress Note ROOM: [id number] Hospital Day: LOS: 10 days Post-Op Day: [...] mg Oral BID Continuous Infusions dexmedetomidine Stopped (12/26/19414) dextrose 10% phenylephrine Stopped (12/25/19 162) PRN Medications albumin, albuterol, aspirin, bisacodyl, calcium [...] Denzel Pryor MD LABS: Recent Labs Lab 12/26/1931412/25/198 12/24/19 1328 12/24/19 0451 WBC 11.09* 13.20* 41.65* -- 10.42 HGB 8.6* 8.5* 10.8* < > 9.0* HCT 27.3* 26.3* 33.3* < > 28.3* PLT 159 145* 178 -- 344 MONOPCT 6.90 6.40 -- -- 6.10 < > = values in this interval not displayed. Recent Labs Lab 12/26/1931412/25/19 1231 12/25/19 0749 12/25/19 0418 12/24/19 1328 [...] 7.341* 7.382 7.330* PO2ART 160* 153* 230* NME1QDB 40 33* 43 M3YEAVWF 99* 99* 100* Recent Labs Lab 12/24/19 [...] Reilly Galvan MD PhD FACS 12/26/2019 oArsalan ruby ARNP - 12/26/2019 7:50 AM PDTFormatting of this note might be different from the [facility] Service: Citrus Fruit Colorer Progress Note Reilly Hamm 69 y.o. Hospital Day: LOS: 10 days Post-Op Day: 1 Day Post-Op Consulting Physicians Treatment Team: Alexi Rodarte MD; Jeet Tejeda MD; Jef Ryan MD SUBJECTIVE Patient Summary: The patient is a 69 y.o. male with significant past medical history of diabetes mellitus who presented to [facility] 12/14 due to a 4 month history of we akness and 1 month history of fevers. Echocardiogram was perfromed which revealed mitral johnny ve endocarditis with mitral valve regurgitation. He was started on zosyn and cefipime. Blood cultures obtained on admission grew out GPC in chains in 2/2 bottles. He was transferred to [facility] for further management on 12/16 and [...] maintained on 2g ceftriaxo ne Q12 for CLINICAL APPLICATIONS MANAGER coverage. His carious teeth were removed by [...] activity postoperatively with resulting postictal state - li kay due to septic emboli. ? On Keppra [...] likely secondary to neurologic status. Extubated to UT- Resolved Monitor for airway compromise Titrate O2 to keep sats >92% GI/NUTRITION: NPO until MANAGING MANAGER swallow evaluation completed RENAL/LYTES: DUNIA - Likely [...] ID. Has been on ceftriaxone 2gm for CLINICAL APPLICATIONS MANAGER coverage. Source of Infection: endocarditis and bacteremia [...] might be different from the willie alba [facility] Service: Citrus Fruit Colorer Progress Note Reilly Hamm 69 y.o. Hospital Day: LOS: 9 days Post-Op Day: 1 Day Post-Op Consulting Physicians Treatment Team: Alexi Rodarte MD; Jeet Tejeda MD; Jef Ryan MD SUBJECTIVE Patient Summary: The patient is a 69 y.o. male with significant past medical history of diabetes mellitus who presented to [facility] 12/14 due to a 4 month history of we akness and 1 month history of fevers. Echocardiogram was perfromed which revealed mitral johnny ve endocarditis with mitral valve regurgitation. He was started on zosyn and cefipime. Blood cultures obtained on admission grew out GPC in chains in 2/2 bottles. He was transferred to [facility] for further management on 12/16 and [...] maintained on 2g ceftriaxo ne Q12 for CLINICAL APPLICATIONS MANAGER coverage. His carious teeth were removed by [...] resolution of seizure activity. Lo aded with Morales, repeat head CT largely unchanged. Events Overnight: [...] asymmetry, mo ving extremities with RUE 4/5 airline station agent strength LUE 3/5 airline station agent strength HEENT: sclerae clear, nonicteric, oral mmm, [...] ID. Has been on ceftriaxone 2gm for CLINICAL APPLICATIONS MANAGER coverage. Source of Infection: endocarditis and bacteremia [...] se, MD - 12/25/2019 10:40 AM PDT [facility] Service: Infectious Diseases Progress [...] intact. Follows commands. Venous access: CVC. Location: [facility] [place]. LABS: All labs were reviewed. Recent Results [...] Units Date/Time Culture, Tissue, Smear, with Anaerobes [[id number]] Collected: 12/24/19 1020 Order Status: Completed Lab Status: Preliminary result Updated: 12/24/192107 Specimen: Tissue from Heart, Valve, Mitral Gram Stain Result NO CELLS OR ORGANISMS SEEN Gram Stain Result Testing performed at [facility], [address] [place] [address] 76755 RESULT PENDING Comment: Testing performed at [facility], [address] [place] [address] 64977 Coronavirus (COVID-19) NAAT [[id number]] Collected: 12/24/19 0646 Order Status: Completed Lab Status: Final result Updated: 12/24/19 0749 Specimen: Tissue from Nasopharynx SARS-CoV-2, NAAT (COVID-19) NEGATIVE Comment: This test was developed and its performance characteristics determined by [employer]. It has not been cleared or approved by the [place] FDA. This test has been authorized by FDA under an Emergency Use Authorization (EUA). Clinicians should be advised to consider a patients signs, symptoms, history, and results of other diagnostic tests when interpreting results. Testing performed at [facility] [place] [place] [address];[place] [address] Coronavirus (COVID-19) NAAT [[id number]] Collected: 12/16/19 2314 Order Status: Completed Lab Status: Final result Updated: 12/17/19 0022 SARS-CoV-2, NAAT (COVID-19) NEGATIVE Comment: This test was developed and its performance characteristics determined by [employer]. It has not been cleared or approved by the [place] FDA. This test has been authorized by FDA under an Emergency Use Authorization (EUA). Clinicians should be advised to consider a patients signs, symptoms, history, and results of other diagnostic tests when interpreting results. Testing performed at [facility] [place] [place] [address] 49476 Coronavirus (COVID-19) NAAT [[id number]] Collected: 12/16/192135 Order Status: Canceled Lab Status: No result Specimen: Tissue from Nasopharynx Culture, Blood [[id number]] Collected: 12/16/191924 Order Status: Completed Lab Status: Final result Updated: 12/23/19706 Specimen: Peripheral Blood Special Requests RIGHT HAND Special Requests Testing performed at [facility] [place] [place] [address] 48380 RESULT NO GROWTH 6 DAYS RESULT Testing performed at [facility], [address] [place] [address] 58442 Comment: Testing performed at [facility], [address] [place] [address] 17581 Culture, Blood [[id number]] Collected: 12/16/191924 Order Status: Completed Lab Status: Final result Updated: 12/23/19706 Specimen: Peripheral Blood Special Requests LEFT HAND Special Requests Testing performed at [facility] [place] [place] [address] 33447 RESULT NO GROWTH 6 DAYS RESULT Testing performed at [facility], [address] [place] [address] 75082 Comment: Testing performed at [facility], [address] [place] [address] 11331 Microbiology Results (72 hrs) Procedure Component Value Units Date/Time Culture, Tissue, Smear, with Anaerobes [[id number]] Collected: 12/24/19 1020 Order Status: Completed Lab Status: Preliminary result Updated: 12/24/192107 Specimen: Tissue from Heart, Valve, Mitral Gram Stain Result NO CELLS OR ORGANISMS SEEN Gram Stain Result Testing performed at [facility], [address] [place] [address] 14243 RESULT PENDING Comment: Testing performed at [address] [address] Coronavirus (COVID-19) NAAT [[id number]] Collected: 12/24/19 0646 Order Status: Completed Lab Status: Final result Updated: 12/24/19 0749 Specimen: Tissue from Nasopharynx SARS-CoV-2, NAAT (COVID-19) NEGATIVE Comment: This test was developed and its performance characteristics determined by [employer]. It has not been cleared or approved by the [place] FDA. This test has been authorized by FDA under an Emergency Use Authorization (EUA). Clinicians should be advised to consider a patients signs, symptoms, history, and results of other diagnostic tests when interpreting results. Testing performed at [facility] [place];[address] [place] [address];[place] [address] IMAGING: CXR images were reviewed. Images dated [...] of microhemorrhage. High-dose twice daily ceftriaxone for CLINICAL APPLICATIONS MANAGER coverage. Timing of cardiothoracic surgery to be determined by CTS specialist in view of stroke. 8. Pulmonary edema: Responded well to lasix. Off oxygen. Breathing better. 9. New problem: Seizure. Recommend brain imaging. Continue current antibiotic regimen. Repeat CBC and CMP in the am. Discussed with attending provider: Reilly Galvan MD PhD . Alexi Noble MD, MPH Infectious Diseases 12/25/19 Sheree Rowan MS CCC-MANAGING MANAGER - 12/25/2019 8:00 AM PDTMISSED THERAPY VISIT Speech Therapy attempted to see the following patient today: Reilly Hamm (P) Missed Visit (status changed), Need New Orders Due to transfer to ICU, new orders are needed if speech therapy services are still warrante d at this time. A M LUKASZLe, Jeet Aaron MD - 12/25/2019 7:37 AM PDT [facility] Service: Cardiology Progress Note Date of Admission: 12/16/2019 BRIEF CLINICAL HISTORY: 69 y.o. male transferred from [facility] for iqugmiut dari ral valve endocarditis with severe mitral [...] but no lightheadedness/syncope. He initially presented to [facility] 10/31/2019 with those complaints. Laboratory evaluation was [...] wa s discharged. He then presented to [facility] 12/15/2019 with altered mental stat [...] NSR with a rate of 97, short [place] and PACs. A repeat echo at [facility] showed preserved LV systolic function with a large mobile vegetation attached to the posterior siria flet of the mitral valve with severe eccentric anterior MR. There is also a small ASD with mild guzt-nu-lfbxo atrial shunting, as well as mild TR [...] CV LHC; Surgeon: Jeet Tejeda MD; [place] [facility] [place] LAB CARDIAC CATHERIZATION N/A 12/19/2019 Procedure: CV COR ANGIO; Surgeon: Jeet Tejeda MD; [place] [facility] [place] CV LAB CARDIAC CATHERIZATION Left 12/19/2019 Procedure: CV LV; Surgeon: Jeet Tejeda MD; [place] [facility] [place] CV LAB TOOTH EXTRACTION N/A 12/20/2019 Procedure: EXTRACTION TEETH; Surgeon: Job Menjivar DMD; [place] [facility] [place] Allergies Allergen [...] 2. 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 (10/31/19 - [facility]): EF 55-60%. Impaired relaxation compatible with diastolic [...] valve replaced ASSESSMENT & PLAN 1. 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 [...] MD PhD - 12/25/2019 7:25 AM PDT [facility] Service: Cardiothoracic Surgery Progress Note ROOM: [facility]/09030-19 Hospital Day: LOS: 9 days Post-Op Day: [...] Denzel Pryor MD LABS: Recent Labs Lab 12/25/1941712/24/19 1328 12/24/19 1214 12/24/19 0451 12/23/19 0614 WBC [...] the last 168 hours. Recent Labs Lab 12/25/1941712/24/19 1328 MG 2.6* 3.1* No results for input(s): AMYLASE in the last 168 hours. Recent Labs Lab 12/24/19 1756 12/24/19 1522 12/24/19 1331 PHART 7.341* 7.382 7.330* PO2ART 160* 153* 230* EAR1WAZ 40 33* 43 C4QQZIZO 99* 99* 100* Recent Labs Lab 12/24/19 [...] endocarditis with ext ensive destruction of the iqugmiut mitral valve involving the annulus as well. [...] Marcie Bennett RN at 12/24/2019 6:30 PM PDTAlexi Jackson MD - 12/24/2019 5:56 PM PDTFormatting of this note might be different from the origin [facility] Service: Infectious Diseases Progress Note Hospital [...] BANK. BLOOD BANK COMMENT Testing performed at [facility] [place];[address] [place] [address];[place] [address] POC Glucose Result Value Ref Range Glucose, [...] Units Date/Time Culture, Tissue, Smear, with Anaerobes [[id number]] Collected: 12/24/19 1020 Order Status: Sent Lab Status: In process Updated: 12/24/19 1058 Specimen: Tissue from Heart, Valve, Mitral Coronavirus (COVID-19) NAAT [[id number]] Collected: 12/24/19 0646 Order Status: Completed Lab Status: Final result Updated: 12/24/19 0749 Specimen: Tissue from Nasopharynx SARS-CoV-2, NAAT (COVID-19) NEGATIVE Comment: This test was developed and its performance characteristics determined by [employer]. It has not been cleared or approved by the [place] FDA. This test has been authorized by FDA under an Emergency Use Authorization (EUA). Clinicians should be advised to consider a patients signs, symptoms, history, and results of other diagnostic tests when interpreting results. Testing performed at [facility] [place] [place] [address];[place] [address] Coronavirus (COVID-19) NAAT [[id number]] Collected: 12/16/19 2314 Order Status: Completed Lab Status: Final result Updated: 12/17/19 0022 SARS-CoV-2, NAAT (COVID-19) NEGATIVE Comment: This test was developed and its performance characteristics determined by [employer]. It has not been cleared or approved by the [place] FDA. This test has been authorized by FDA under an Emergency Use Authorization (EUA). Clinicians should be advised to consider a patients signs, symptoms, history, and results of other diagnostic tests when interpreting results. Testing performed at [facility] [place] [place] [address]74 Coronavirus (COVID-19) NAAT [[id number]] Collected: 12/16/192135 Order Status: Canceled Lab Status: No result Specimen: Tissue from Nasopharynx Culture, Blood [[id number]] Collected: 12/16/191924 Order Status: Completed Lab Status: Final result Updated: 12/23/19 0707 Specimen: Peripheral Blood Special Requests RIGHT HAND Special Requests Testing performed at [facility] [place];[address] [place] [address] 33845 RESULT NO GROWTH 6 DAYS RESULT Testing performed at [facility], [address] [place] [address] 8[address]10 Comment: Testing performed at [facility], [address] [place] [address] 6[address]64 Culture, Blood [[id number]] Collected: 12/16/191924 Order Status: Completed Lab Status: Final result Updated: 12/23/19 0707 Specimen: Peripheral Blood Special Requests LEFT HAND Special Requests Testing performed at [facility] [place];[address] [place] [address] 65736 RESULT NO GROWTH 6 DAYS RESULT Testing performed at [facility], [address] [place] [address] 33310 Comment: Testing performed at [facility], [address] [place] [address] 61486 Microbiology Results (72 hrs) Procedure Component Value Units Date/Time Culture, Tissue, Smear, with Anaerobes [[id number]] Collected: 12/24/19 1020 Order Status: Sent Lab Status: In process Updated: 12/24/19 1058 Specimen: Tissue from Heart, Valve, Mitral Coronavirus (COVID-19) NAAT [[id number]] Collected: 12/24/19 0646 Order Status: Completed Lab Status: Final result Updated: 12/24/19 0749 Specimen: Tissue from Nasopharynx SARS-CoV-2, NAAT (COVID-19) NEGATIVE Comment: This test was developed and its performance characteristics determined by [employer]. It has not been cleared or approved by the [place] FDA. This test has been authorized by FDA under an Emergency Use Authorization (EUA). Clinicians should be advised to consider a patients signs, symptoms, history, and results of other diagnostic tests when interpreting results. Testing performed at [facility] [place];[address] [place] [address];[place] [address] IMAGING: No new images for review today. [...] of microhemorrhage. High-dose twice daily ceftriaxone for CLINICAL APPLICATIONS MANAGER coverage. 8. Pulmonary edema: Improved. Patient updated on his/her condition today. His was also updated at the bedside today. All questions answered. Discussed with attending provider: Reilly Galvan MD PhD and hospitalist service. Pt to g o to ICU postoperatively. . Alexi Noble MD, MPH Infectious Diseases 12/24/19 Chevy Voss MD - 12/24/2019 5:50 PM PDTFormatting of this note might be different from the willie smith. [facility] Service: Cardiology Progress Note Date of Admission: 12/16/2019 BRIEF CLINICAL HISTORY: 69 y.o. male transferred from [facility] for iqugmiut dari ral valve endocarditis with severe mitral regurgitation and evidence for septic emboli in e spleen, liver, left kidney and brain. He had no significant medical history prior to his r [facility] admissions. He reports approximately 4 months of weakness/fatigue, intermittent fevers , and weight loss of 35-40 pounds. Denies chest pain/pressure. He reported dyspnea on exer tion with occasional cough, no orthopnea, PND or lower extremity edema. He noted occasional dizziness but no lightheadedness/syncope. He initially presented to [facility] 10/31/2019 with those complaints. Laboratory evaluation was [...] wa s discharged. He then presented to [facility] 12/15/2019 with altered mental stat [...] NSR with a rate of 97, short [place] and PACs. A repeat echo at [facility] showed preserved LV systolic function with a large mobile vegetation attached to the posterior siria flet of the mitral valve with severe eccentric anterior MR. There is also a small ASD with mild bzsk-kq-zgmeb atrial shunting, as well as mild TR [...] CV LHC; Surgeon: Jeet Tejeda MD; [place] [facility] [place] CARDIAC [place]ATH[place] N/A 12/19/2019 Procedure: CV COR ANGIO; Surgeon: Jeet Tejeda MD; [place] [facility] [place] LAB CARDIAC CATHERIZATION Left 12/19/2019 Procedure: CV LV; Surgeon: Jeet Tejeda MD; [place] [facility] [place] TOOTH EXTRACTION N/A 12/20/2019 Procedure: EXTRACTION TEETH; Surgeon: Job Menjivar DMD; [place] [facility] [place] Allergies Allergen [...] 2. 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 SET ILLUSTRATOR territory including a 1.1 x 2.6 cm [...] regurgitation due to endocarditis. ECHOs (12/16/19 - [facility]): 1. EF 65%. 2. Normal RV size [...] No evidence of pericardial effusion. (10/31/19 - [facility]): EF 55-60%. Impaired relaxation compatible with diastolic [...] kidney injury) ASSESSMENT & PLAN 1. 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 [...] Status: Full Code Sheree Rowan M S CCC-MANAGING MANAGER - 12/24/2019 7:52 AM PDTMISSED THERAPY VISIT Speech Therapy attempted to see the following patient today: Reilly Hamm (P) Missed Visit (patient unavailable)- receiving procedure at this time. ST to check back at another time census permitting. Kevin Rodriguez Chaplain - 12/24/2019 6:54 AM PDTF/u continue [...] better as a result of CP visit. ehr, Jeet Aaron MD - 12/23/2019 5:42 PM PDTFormatting of this no te might be different from the original. [facility] Service: Cardiology Progress Note Date of Admission: 12/16/2019 BRIEF CLINICAL HISTORY: 69 y.o. male transferred from [facility] for iqugmiut dari ral valve endocarditis with severe mitral [...] but no lightheadedness/syncope. He initially presented to [facility] 10/31/2019 with those complaints. Laboratory evaluation was [...] wa s discharged. He then presented to [facility] 12/15/2019 with altered mental stat [...] NSR with a rate of 97, short [place] and PACs. A repeat echo at [facility] showed preserved LV systolic function with a large mobile vegetation attached to the posterior siria flet of the mitral valve with severe eccentric anterior MR. There is also a small ASD with mild clio-mu-kihum atrial shunting, as well as mild TR [...] CV LHC; Surgeon: Jeet Tejeda MD; [place] [facility] [place] CARDIAC CATHERIZATION N/A 12/19/2019 Procedure: CV COR ANGIO; Surgeon: Jeet Tejeda MD; [place] [facility] [place] CARDIAC CATHERIZATION Left 12/19/2019 Procedure: CV LV; Surgeon: Jeet Tejeda MD; [place] [facility] [place] TOOTH EXTRACTION N/A 12/20/2019 Procedure: EXTRACTION TEETH; Surgeon: Job Menjivar DMD; [place] [facility] [place] Allergies Allergen [...] valorie Daily 30 tablet 0 Scheduled Medications atorvaSTATin [...] 2. 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 (10/31/19 - [facility]): EF 55-60%. Impaired relaxation compatible with diastolic [...] kidney injury) ASSESSMENT & PLAN 1. 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 [...] Code Status: Full Code Oswaldo Bowman C haplain - 12/23/2019 3:26 PM PDTSPIRITUAL CARE ASSESSMENT [...] might be different fro m the original. [facility] Service: Infectious Diseases Progress [...] O POSITIVE Antibody Screen NEGATIVE BB BAND [id number] BB BAND Testing performed [place] [facility] [place] [place] [address] Microbiology Results (Last 14 Days by Collected Date with Culture/Sensitivity) Procedure Component Value Units Date/Time Coronavirus (COVID-19) NAAT [[id number]] Collected: 12/16/19 2314 Order Status: Completed Lab Status: Final result Updated: 12/17/19 0022 SARS-CoV-2, NAAT (COVID-19) NEGATIVE Comment: This test was developed and its performance characteristics determined by [employer]. It has not been cleared or approved by the [place] FDA. This test has been authorized by FDA under an Emergency Use Authorization (EUA). Clinicians should be advised to consider a patients signs, symptoms, history, and results of other diagnostic tests when interpreting results. Testing performed at [facility] [place] [place] [address] Coronavirus (COVID-19) NAAT [[id number]] Collected: 12/16/192135 Order Status: Canceled Lab Status: No result Specimen: Tissue from Nasopharynx Culture, Blood [[id number]] Collected: 12/16/191924 Order Status: Completed Lab Status: Final result Updated: 12/23/19706 Specimen: Peripheral Blood Special Requests RIGHT HAND Special Requests Testing performed at [facility] [place] [place] [address] RESULT NO GROWTH 6 DAYS RESULT Testing performed at [facility], [address] [place] [address] Comment: Testing performed at [facility], [address] [place] [address] Culture, Blood [[id number]] Collected: 12/16/191924 Order Status: Completed Lab Status: Final result Updated: 12/23/19706 Specimen: Peripheral Blood Special Requests LEFT HAND Special Requests Testing performed at [facility] [place] [place] [address] RESULT NO GROWTH 6 DAYS RESULT Testing performed at [facility], [address] [place] [address] Comment: Testing performed at [facility], [address] [place] [address]10 Microbiology Results (72 hrs) No results found [...] of microhemorrhage. High-dose twice daily ceftriaxone for CLINICAL APPLICATIONS MANAGER coverage. Timing of cardiothoracic surgery to be [...] might be different from bon pelletier original. [facility] Service: Cardiothoracic Surgery Progress Note ROOM: [address] [place] [address] Hospital Day: LOS: 7 days SUBJECTIVE Events [...] -- 5.50 4.30 Recent Labs Lab 12/23/19 0612/22/19 0546 12/21/19 0502 NA 136 137 136 [...] hours. No results for input(s): PHART, PO2ART, VAF7VLJ, H8VOULIC, BEART in the last 168 hours. Recent [...] Mr. Hamm is a 69-year-old gentleman with iqugmiut mitral valve endocarditis with severe dari ral [...] Full Code Reilly Galvan MD PhD FACS [facility] 12/23/2019 Gareth Villar MD - 12/23/2019 7:58 AM PDTFormatting of this note might be different from the or iginal. [facility] Service: Hospitalist Progress Note Pt: Reilly Hamm AGE/SEX: 69 y.o. male ROOM: 9107/9107-01 : 1950 PCP: No Physician on file ADMIT DATE: 12/16/2019 TODAY'S DATE: 12/23/2019 Hospital Day/Hospital Course: LOS: 7 days Mr. Hamm is a 69-year-old male with no significant past medical history who originally pr esented to [facility] on 12/14 with progressive weakness for the last few months an d intermittent fevers for the last 1 month, found to have GPC bacteremia and mitral valve en docarditis, transferred to [facility] on 12/15 for further evaluation. Further [...] Component Value Units Date/Time Coronavirus (COVID-19) NAAT [[id number]] Collected: 12/16/19 2314 Order Status: Completed Lab Status: Final result Updated: 12/17/19 0022 SARS-CoV-2, NAAT (COVID-19) NEGATIVE Comment: This test was developed and its performance characteristics determined by [employer]. It has not been cleared or approved by the [place] FDA. This test has been authorized by FDA under an Emergency Use Authorization (EUA). Clinicians should be advised to consider a patients signs, symptoms, history, and results of other diagnostic tests when interpreting results. Testing performed at [facility] [place] [place] [address];[place] [address] Culture, Blood [[id number]] Collected: 12/16/191924 Order Status: Completed Lab Status: Preliminary result Updated: 12/18/19716 Specimen: Peripheral Blood Special Requests RIGHT HAND Special Requests Testing performed at [facility] [place] [place] [address];[place] [address] RESULT NO GROWTH AT THIS TIME RESULT Testing performed at [facility], [address] [place] [address] Comment: Testing performed at [facility], [address] [place] [address], [place] [address] Culture, Blood [[id number]] Collected: 12/16/195 Order Status: Completed Lab Status: Preliminary result Updated: 12/18/19 0717 Specimen: Peripheral Blood Special Requests LEFT HAND Special Requests Testing performed at [facility] [place] [place] [address];[place] [address] RESULT NO GROWTH AT THIS TIME RESULT Testing performed at [facility], [address] [place] [address] Comment: Testing performed at [facility], [address] [place] [address], [place] [address] IMAGING: Reviewed in EPIC, no new results. [...] for surgery with bioprosthetic valve replacement tomas consuelo -cardiology, Dr. Tejeda consulted -ID, Dr. Noble [...] 2. 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 Dictation software, Valneva, used which may contain error for similar sounding words even af ter review. Portions of this chart may have been copied from previous notes for continuity of care. Aki Youssef MD 7:58 AM PDT 12/23/2019 Portions of this chart may have been copied from previous notes for continuity of care purp ose dmarylu-Alden mirza, Alisia Eldridge RN - 12/22/2019 6:[id number] Noble at bedside. Pt appears to have lab ored breathing and scattered crackles in bases. Pt became very flushed in the cheek. Stat ch est x-ray ordered and complete. Pt afebrile. 1814 Pt states feeling even more warm and diaphoretic. Temp 100.2 Ice pack placed under arm s. 184 Dr. Noble aware of chest x-ray. Order for 20 mg IV lasix. Alisia Bello, RN Alexi Squires MD - 12/22/2019 5:13 PM PDT [facility] Service: Infectious Diseases Progress [...] Component Value Units Date/Time Coronavirus (COVID-19) NAAT [[id number]] Collected: 12/16/19 6553 Order Status: Completed Lab Status: Final result Updated: 12/17/1921 SARS-CoV-2, NAAT (COVID-19) NEGATIVE Comment: This test was developed and its performance characteristics determined by [employer]. It has not been cleared or approved by the [place] FDA. This test has been authorized by FDA under an Emergency Use Authorization (EUA). Clinicians should be advised to consider a patients signs, symptoms, history, and results of other diagnostic tests when interpreting results. Testing performed at [facility] [place] [place] [address] Coronavirus (COVID-19) NAAT [[id number]] Collected: 12/16/192135 Order Status: Canceled Lab Status: No result Specimen: Tissue from Nasopharynx Culture, Blood [[id number]] Collected: 12/16/191924 Order Status: Completed Lab Status: Preliminary result Updated: 12/18/19 0717 Specimen: Peripheral Blood Special Requests RIGHT HAND Special Requests Testing performed at [facility] [place] [place] [address] RESULT NO GROWTH AT THIS TIME RESULT Testing performed at [facility], [address] [place] [address] Comment: Testing performed at [facility], [address] [place] [address] Culture, Blood [[id number]] Collected: 12/16/191924 Order Status: Completed Lab Status: Preliminary result Updated: 12/18/19 0717 Specimen: Peripheral Blood Special Requests LEFT HAND Special Requests Testing performed at [facility] [place] [place] [address] RESULT NO GROWTH AT THIS TIME RESULT Testing performed at [facility], [address] [place] [address] Comment: Testing performed at [facility], [address] [place] [address] Microbiology Results (72 hrs) No results found [...] of microhemorrhage. High-dose twice daily ceftriaxone for CLINICAL APPLICATIONS MANAGER coverage. Timing of cardiothoracic surgery to be [...] appears tired. Digestive System (Mouth to Rectum): MANAGING MANAGER following. Anthropometrics Current Weight: 59.4 kg (130 [...] general diet as ordered with texture/liquids per MANAGING MANAGER. Encourage high protein, nutr ient dense foods foods. Send chocolate magic cups TID at snack times to optimize oral intake . Consider appetite stimulant or TF if oral intake continues to be inadequate. RD staff to leonor mcgee per protocol. Nutritional Risk Required Follow Up: 3 days(12/24 H.) Jeet Keating RD,CD 12/22/2019 Problem: Malnutrition Goal: Improved Nutritional Intake Outcome: Ongoing, not progressing Note: Pt will consume at least 50% of meals/snacks/supplements. 1:10 PM PDT Monty Gunter MD - 12/22/2019 10:59 AM PDT [facility] Service: Hospitalist Progress Note Pt: Reilly Hamm AGE/SEX: 69 y.o. male ROOM: [facility]9107-01 : 1950 PCP: No Physician on file ADMIT DATE: 12/16/2019 TODAY'S DATE: 12/22/2019 Hospital Day/Hospital Course: LOS: 6 days Mr. Hamm is a 69-year-old male with no significant past medical history who originally pr esented to [facility] on 12/14 with progressive weakness for the last few months an d intermittent fevers for the last 1 month, found to have GPC bacteremia and mitral valve en docarditis, transferred to [facility] on 12/15 for further evaluation. Further [...] Component Value Units Date/Time Coronavirus (COVID-19) NAAT [[id number]] Collected: 12/16/19 2314 Order Status: Completed Lab Status: Final result Updated: 12/17/19 0022 SARS-CoV-2, NAAT (COVID-19) NEGATIVE Comment: This test was developed and its performance characteristics determined by [employer]. It has not been cleared or approved by the [place] FDA. This test has been authorized by FDA under an Emergency Use Authorization (EUA). Clinicians should be advised to consider a patients signs, symptoms, history, and results of other diagnostic tests when interpreting results. Testing performed at [facility] [place] [place] [address];[place] [address] Culture, Blood [[id number]] Collected: 12/16/19 1925 Order Status: Completed Lab Status: Preliminary result Updated: 12/18/19 0717 Specimen: Peripheral Blood Special Requests RIGHT HAND Special Requests Testing performed at [facility] [place] [place] [address];[place] [address] RESULT NO GROWTH AT THIS TIME RESULT Testing performed at [facility], [address] [place] [address] Comment: Testing performed at [facility], [address] [place] [address], [place] [address] Culture, Blood [[id number]] Collected: 12/16/19 1925 Order Status: Completed Lab Status: Preliminary result Updated: 12/18/19 0717 Specimen: Peripheral Blood Special Requests LEFT HAND Special Requests Testing performed [place] [facility] [place] [place] [address];[place] [address] RESULT NO GROWTH AT THIS TIME RESULT Testing performed at [facility], [address] [place] [address] Comment: Testing performed at [facility], [address] [place] [address], [place] [address] IMAGING: Reviewed in EPIC, no new results. [...] 2. 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 male transferred from [facility] for iqugmiut dari ral valve endocarditis with severe mitral [...] but no lightheadedness/syncope. He initially presented to [facility] 10/31/2019 with those complaints. Laboratory evaluation was [...] wa s discharged. He then presented to [facility] 12/15/2019 with altered mental stat [...] NSR with a rate of 97, short [place] and PACs. A repeat echo at [facility] showed preserved LV systolic function with a large mobile vegetation attached to the posterior siria flet of the mitral valve with severe eccentric anterior MR. There is also a small ASD with mild uolc-qf-yqcjk atrial shunting, as well as mild TR [...] CV LHC; Surgeon: Jeet Tejeda MD; [place] [facility] [place] CARDIAC CATHERIZATION N/A 12/19/2019 Procedure: CV COR ANGIO; Surgeon: Jeet Tejeda MD; [place] [facility] [place] LAB CARDIAC CATHERIZATION Left 12/19/2019 Procedure: CV LV; Surgeon: Jeet Tejeda MD; [place] [facility] [place] LAB TOOTH EXTRACTION N/A 12/20/2019 Procedure: EXTRACTION TEETH; Surgeon: Job Menjivar DMD; [place] [facility] [place] Allergies Allergen [...] 2. 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 (10/31/19 - [facility]): EF 55-60%. Impaired relaxation compatible with diastolic [...] kidney injury) ASSESSMENT & PLAN 1. 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 [...] Alisia Bennett RN - 12/21/2019 6:57 PM [id number] Assumed care of pt. Assessment unchange d from am. Pt has decreased appetite only ate a few bites of dinner. Some dried bloody drain age to mouth, no bleeding. Sutures intact. Alisia Bello RN Alexi Squires MD - 12/21/2019 1:11 PM PDT [facility] Service: Infectious Diseases Progress [...] Component Value Units Date/Time Coronavirus (COVID-19) NAAT [[id number]] Collected: 12/16/19 2314 Order Status: Completed Lab Status: Final result Updated: 12/17/19 0022 SARS-CoV-2, NAAT (COVID-19) NEGATIVE Comment: This test was developed and its performance characteristics determined by [employer]. It has not been cleared or approved by the [place] FDA. This test has been authorized by FDA under an Emergency Use Authorization (EUA). Clinicians should be advised to consider a patients signs, symptoms, history, and results of other diagnostic tests when interpreting results. Testing performed at [facility] [place] [place] [address] Coronavirus (COVID-19) NAAT [[id number]] Collected: 12/16/192135 Order Status: Canceled Lab Status: No result Specimen: Tissue from Nasopharynx Culture, Blood [[id number]] Collected: 12/16/191924 Order Status: Completed Lab Status: Preliminary result Updated: 12/18/19716 Specimen: Peripheral Blood Special Requests RIGHT HAND Special Requests Testing performed at [facility] [place] [place] [address] RESULT NO GROWTH AT THIS TIME RESULT Testing performed at [facility], [address] [place] [address] Comment: Testing performed at [facility], [address] [place] [address] Culture, Blood [[id number]] Collected: 12/16/191924 Order Status: Completed Lab Status: Preliminary result Updated: 12/18/19716 Specimen: Peripheral Blood Special Requests LEFT HAND Special Requests Testing performed at [facility] [place] [place] [address] RESULT NO GROWTH AT THIS TIME RESULT Testing performed at [facility], [address] [place] [address] Comment: Testing performed at [facility], [address] [place] [address] Microbiology Results (72 hrs) No results found [...] of microhemorrhage. High-dose twice daily ceftriaxone for CLINICAL APPLICATIONS MANAGER coverage. Timing of cardiothoracic surgery to be [...] might be different from the willie smith. [facility] Service: Cardiology Progress Note Date of Admission: 12/16/2019 BRIEF CLINICAL HISTORY: 69 y.o. male transferred from [facility] for iqugmiut m itral valve endocarditis with severe mitral [...] no lighthe adedness/syncope. He initially presented to [facility] 10/31/2019 with those complaints. Laboratory evaluation was [...] wa s discharged. He then presented to [facility] 12/15/2019 with altered mental stat [...] R with a rate of 97, short [place] and PACs. A repeat echo at [facility] showed preserved LV systolic f unction with [...] EXTRACTION TEETH; Surgeon: Job Menjivar DMD; [place] [facility] [place] Allergies Allergen [...] 2. 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 (10/31/19 - [facility]): EF 55-60%. Impaired relaxation compatible with diastolic [...] kidney injury) ASSESSMENT & PLAN 1. 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 [...] MD - 0 12/21/2019 9:53 AM PDT [facility] Service: Hospitalist Progress Note Pt: Reilly Hamm AGE/SEX: 69 y.o. male ROOM: 91/9107-01 : 1950 PCP: No Physician on file ADMIT DATE: 12/16/2019 TODAY'S DATE: 12/21/2019 Hospital Day/Hospital Course: LOS: 5 days Mr. Hamm is a 69-year-old male with no significant past medical history who originally pr esented to [facility] on 12/14 with progressive weakness for the last few months an d intermittent fevers for the last 1 month, found to have GPC bacteremia and mitral valve en docarditis, transferred to [facility] on 12/15 for further evaluation. Further [...] Intake/Output Summary (Last 24 hours) at 12/21/2019 0959 Last data filed at 12/20/2019 1546 Gross [...] Component Value Units Date/Time Coronavirus (COVID-19) NAAT [[id number]] Collected: 12/16/19 2314 Order Status: Completed Lab Status: Final result Updated: 12/17/19 0022 SARS-CoV-2, NAAT (COVID-19) NEGATIVE Comment: This test was developed and its performance characteristics determined by [employer]. It has not been cleared or approved by the [place] FDA. This test has been authorized by FDA under an Emergency Use Authorization (EUA). Clinicians should be advised to consider a patients signs, symptoms, history, and results of other diagnostic tests when interpreting results. Testing performed at [facility] [place] [place] [address];[place] [address] Culture, Blood [[id number]] Collected: 12/16/19 1925 Order Status: Completed Lab Status: Preliminary result Updated: 12/18/19 0717 Specimen: Peripheral Blood Special Requests RIGHT HAND Special Requests Testing performed at [facility] [place] [place] [address] RESULT NO GROWTH AT THIS TIME RESULT Testing performed at [facility] [facility], [address] [place] [address] Comment: Testing performed at [facility], [address] [place] [address] 15008 Culture, Blood [[id number]] Collected: 12/16/195 Order Status: Completed Lab Status: Preliminary result Updated: 12/18/19 0717 Specimen: Peripheral Blood Special Requests LEFT HAND Special Requests [place] [facility] [place] [place] [address] 35355 RESULT NO GROWTH AT THIS TIME RESULT Testing performed at [facility], [address] [facility], [place] [address] Comment: Testing performed at [facility], [address] [place] [address] 03487 IMAGING: Reviewed in EPIC, no new results. [...] 2. 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 SET ILLUSTRATOR territory including a 1.1 x 2.6 cm [...] 1 month Muscle Mass: Severe depletion PPx: [facility] Code status: Full Contacts: Nathalie, , , called and updated 12/20 Dispo: pending final ID recs and MV surgery, no clear timeline at this time Monty Major MD 9:53 AM PDT 12/21/2019 Portions of this chart may have been copied from previous notes for continuity of care purp ose echarlie, Reilly Umaña MD PhD - 12/21/2019 9:45 AM PDT [facility] Service: Cardiothoracic Surgery Progress Note ROOM: 07/91- SUBJECTIVE Events Overnight: Mr. Hamm is relatively [...] hours. No results for input(s): PHART, PO2ART, QJX9QKY, F3ERXQSY, BEART in the last 168 hours. Recent [...] might be different from the o riginal. [facility] Service: Infectious Diseases Progress [...] OR for teeth extraction. ARNOLDO with severe MR. Afebrile. He continues to seem to always [...] ECGs available Confirmed by JEET TEJEDA MD ([id number]) on 12/20/2019 2:45:08 PM Microbiology Results (Last 14 Days by Collected Date with Culture/Sensitivity) Procedure Component Value Units Date/Time Coronavirus (COVID-19) NAAT [[id number]] Collected: 12/16/19 2314 Order Status: Completed Lab Status: Final result Updated: 12/17/19 0022 SARS-CoV-2, NAAT (COVID-19) NEGATIVE Comment: This test was developed and its performance characteristics determined by [employer]. It has not been cleared or approved by the [place] FDA. This test has been authorized by FDA under an Emergency Use Authorization (EUA). Clinicians should be advised to consider a patients signs, symptoms, history, and results of other diagnostic tests when interpreting results. Testing performed at [facility] [place] [place] [address] 46046 Coronavirus (COVID-19) NAAT [[id number]] Collected: 12/16/192135 Order Status: Canceled Lab Status: No result Specimen: Tissue from Nasopharynx Culture, Blood [[id number]] Collected: 12/16/191924 Order Status: Completed Lab Status: Preliminary result Updated: 12/18/19716 Specimen: Peripheral Blood Special Requests RIGHT HAND Special Requests Testing [place] [facility] [place] [place] [address] 21662 RESULT NO GROWTH AT THIS TIME RESULT Testing performed at [facility], [address] [place] [address] 12409 Comment: Testing performed at [facility], [address] [place] [address] 81847 Culture, Blood [[id number]] Collected: 12/16/191924 Order Status: Completed Lab Status: Preliminary result Updated: 12/18/19716 Specimen: Peripheral Blood Special Requests LEFT HAND Special Requests Testing [place] [facility] [place] [place] [address] 64889 RESULT NO GROWTH AT THIS TIME RESULT Testing performed at [facility], [address] [place] [address] 32272 Comment: Testing performed at [facility], [address] [place] [address] 33882 Microbiology Results (72 hrs) No results found [...] of microhemorrhage. High-dose twice daily ceftriaxone for CLINICAL APPLICATIONS MANAGER coverage. Timing of cardiothoracic surgery to be determined by CTS specialist in view of stroke. Continue current antibiotic regimen. Patient updated on his/her condition today. Discussed with attending provider: Monty Major MD . Alexi Noble MD, MPH Infectious Diseases 12/20/19 Bree Gunter MD - 12/20/2019 1:31 PM PDTFormatting of this note might be different from the origi nal. [facility] Service: Hospitalist Progress Note Pt: Reilly Hamm AGE/SEX: 69 y.o. male ROOM: [facility]- : 1950 PCP: No Physician on file ADMIT DATE: 12/16/2019 TODAY'S DATE: 12/20/2019 Hospital Day/Hospital Course: LOS: 4 days Mr. Hamm is a 69-year-old male with no significant past medical history who originally pr esented to [facility] on 12/14 with progressive weakness for the last few months an d intermittent fevers for the last 1 month, found to have GPC bacteremia and mitral valve en docarditis, transferred to [facility] on 12/15 for further evaluation. Further [...] Component Value Units Date/Time Coronavirus (COVID-19) NAAT [[id number]] Collected: 12/16/19 2314 Order Status: Completed Lab Status: Final result Updated: 12/17/19 0022 SARS-CoV-2, NAAT (COVID-19) NEGATIVE Comment: This test was developed and its performance characteristics determined by [employer]. It has not been cleared or approved by the [place] FDA. This test has been authorized by FDA under an Emergency Use Authorization (EUA). Clinicians should be advised to consider a patients signs, symptoms, history, and results of other diagnostic tests when interpreting results. Testing performed at [facility] [place] [place] [address] 23715 Culture, Blood [[id number]] Collected: 12/16/191924 Order Status: Completed Lab Status: Preliminary result Updated: 12/18/19716 Specimen: Peripheral Blood Special Requests RIGHT HAND Special Requests Testing performed [place] [facility] [place] [place] [address] 15980 RESULT NO GROWTH AT THIS TIME RESULT Testing performed at [facility], [address] [place] [address] 89120 Comment: Testing performed at [facility], [address] [place] [address] 09743 Culture, Blood [[id number]] Collected: 12/16/191924 Order Status: Completed Lab Status: Preliminary result Updated: 12/18/19716 Specimen: Peripheral Blood Special Requests LEFT HAND Special Requests Testing performed at [facility] [place] [place] [address] 45827 RESULT NO GROWTH AT THIS TIME RESULT Testing performed at [facility], [address] [place] [address] 15793 Comment: Testing performed at [facility], [address] [place] [address] 53409 IMAGING: Reviewed in EPIC, no new results. [...] 2. 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 male transferred from [facility] for iqugmiut m itral valve endocarditis with severe mitral [...] no lighthe adedness/syncope. He initially presented to [facility] 10/31/2019 with those complaints. Laboratory evaluation was [...] wa s discharged. He then presented to [facility] 12/15/2019 with altered mental stat [...] R with a rate of 97, short [place] and PACs. A repeat echo at [facility] showed preserved LV systolic f unction with [...] 1%-EPINEPHrine 1:100,000, nitroglycerin, [JUL Hold] ond ansetron, [Jul] sodium chloride (PF) 0.9% injection PHYSICAL EXAM [...] 2. 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 (10/31/19 - [facility]): EF 55-60%. Impaired relaxation compatible with diastolic [...] mitral valve ASSESSMENT & PLAN 1. 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 [...] Aaron MD - 12/19/2019 10:41 AM PDT [facility] Service: Cardiology Progress Note Date of Admission: 12/16/2019 BRIEF CLINICAL HISTORY: 69 y.o. male transferred from [facility] for iqugmiut m itral valve endocarditis with severe mitral [...] no lighthe adedness/syncope. He initially presented to [facility] 10/31/2019 with those complaints. Laboratory evaluation was [...] wa s discharged. He then presented to [facility] 12/15/2019 with altered mental stat [...] R with a rate of 97, short [place] and PACs. A repeat echo at [facility] showed preserved LV systolic f unction with [...] 2. 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 (10/31/19 - [facility]): EF 55-60%. Impaired relaxation compatible with diastolic [...] mitral valve ASSESSMENT & PLAN 1. 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 [...] this note might be different from the [facility] Service: Infectious Diseases Progress Note Hospital [...] as multiple acute infarcts in the right SET ILLUSTRATOR territory, with num erous areas of microhemorrhage [...] Component Value Units Date/Time Coronavirus (COVID-19) NAAT [[id number]] Collected: 12/16/194 Order Status: Completed Lab Status: Final result Updated: 12/17/1921 SARS-CoV-2, NAAT (COVID-19) NEGATIVE Comment: This test was developed and its performance characteristics determined by [employer]. It has not been cleared or approved by the [place] FDA. This test has been authorized by FDA under an Emergency Use Authorization (EUA). Clinicians should be advised to consider a patients signs, symptoms, history, and results of other diagnostic tests when interpreting results. Testing performed at [facility] [place] [place] [address] 80105 Coronavirus (COVID-19) NAAT [[id number]] Collected: 12/16/192135 Order Status: Canceled Lab Status: No result Specimen: Tissue from Nasopharynx Culture, Blood [[id number]] Collected: 12/16/191924 Order Status: Completed Lab Status: Preliminary result Updated: 12/18/19716 Specimen: Peripheral Blood Special Requests RIGHT HAND Special Requests Testing performed at [facility] [place] [place] [address] 72575 RESULT NO GROWTH AT THIS TIME RESULT Testing performed at [facility], [address] [place] [address] Comment: Testing performed at [facility], [address] [place] [address] 79325 Culture, Blood [[id number]] Collected: 12/16/191924 Order Status: Completed Lab Status: Preliminary result Updated: 12/18/19716 Specimen: Peripheral Blood Special Requests LEFT HAND Special Requests Testing performed at [facility] [place] [place] [address] 45262 RESULT NO GROWTH AT THIS TIME RESULT Testing performed at [facility], [address] [place] [address] 66283 Comment: Testing performed at [facility], [address] [place] [address] 73792 Microbiology Results (72 hrs) Procedure Component Value Units Date/Time Coronavirus (COVID-19) NAAT [[id number]] Collected: 12/16/19 2314 Order Status: Completed Lab Status: Final result Updated: 12/17/19 0022 SARS-CoV-2, NAAT (COVID-19) NEGATIVE Comment: This test was developed and its performance characteristics determined by [employer]. It has not been cleared or approved by the [place] FDA. This test has been authorized by FDA under an Emergency Use Authorization (EUA). Clinicians should be advised to consider a patients signs, symptoms, history, and results of other diagnostic tests when interpreting results. Testing performed at [facility] [place] [place] [address] 08055 Culture, Blood [[id number]] Collected: 12/16/191924 Order Status: Completed Lab Status: Preliminary result Updated: 12/18/19716 Specimen: Peripheral Blood Special Requests RIGHT HAND Special Requests Testing performed at [facility] [place] [place] [address] 90712 RESULT NO GROWTH AT THIS TIME RESULT Testing performed at [facility], [address] [place] [address] 82291 Comment: Testing performed at [facility], [address] [place] [address] 48263 Culture, Blood [[id number]] Collected: 12/16/191924 Order Status: Completed Lab Status: Preliminary result Updated: 12/18/19716 Specimen: Peripheral Blood Special Requests LEFT HAND Special Requests Testing performed at [facility] [place] [place] [address] 21288 RESULT NO GROWTH AT THIS TIME RESULT Testing performed at [facility], [address] [place] [address] 54014 Comment: Testing performed at [facility], [address] [place] [address] 02715 IMAGING: No new images for review today. [...] of microhemorrhage. High-dose twice daily ceftriaxone for CLINICAL APPLICATIONS MANAGER coverage. Repeat CBC and CMP in the am. Patient updated on his/her condition today. Discussed with attending provider: Monty Major MD . Alexi Noble MD, MPH Infectious Diseases 12/19/19 Bree Gunter MD - 12/19/2019 8:24 AM PDTFormatting of this note might be different from the [facility] Service: Hospitalist Progress Note Pt: Reilly Hamm AGE/SEX: 69 y.o. male ROOM: 91/9107-01 : 1950 PCP: No Physician on file ADMIT DATE: 12/16/2019 TODAY'S DATE: 12/19/2019 Hospital Day/Hospital Course: LOS: 3 days Mr. Hamm is a 69-year-old male with no significant past medical history who originally pr esented to [facility] on 12/14 with progressive weakness for the last few months an d intermittent fevers for the last 1 month, found to have GPC bacteremia and mitral valve en docarditis, transferred to [facility] on 12/15 for further evaluation. Further [...] Component Value Units Date/Time Coronavirus (COVID-19) NAAT [[id number]] Collected: 12/16/19 2314 Order Status: Completed Lab Status: Final result Updated: 12/17/19 0022 SARS-CoV-2, NAAT (COVID-19) NEGATIVE Comment: This test was developed and its performance characteristics determined by [employer]. It has not been cleared or approved by the [place] FDA. This test has been authorized by FDA under an Emergency Use Authorization (EUA). Clinicians should be advised to consider a patients signs, symptoms, history, and results of other diagnostic tests when interpreting results. Testing performed at [facility] [place] [place] [address] 98083 Culture, Blood [[id number]] Collected: 12/16/191924 Order Status: Completed Lab Status: Preliminary result Updated: 12/18/1917 Specimen: Peripheral Blood Special Requests RIGHT HAND Special Requests Testing performed at [facility] [place] [place] [address] 34701 RESULT NO GROWTH AT THIS TIME RESULT Testing performed at [facility], [address] [place] [address] Comment: Testing performed at [facility], [address] [place] [address] 06760 Culture, Blood [[id number]] Collected: 12/16/191924 Order Status: Completed Lab Status: Preliminary result Updated: 12/18/19 0717 Specimen: Peripheral Blood Special Requests LEFT HAND Special Requests Testing performed at [facility] [place];[address] [place] [address];[place] [address] RESULT NO GROWTH AT THIS TIME RESULT Testing performed at [facility], [address], [place] [address] Comment: Testing performed at [facility], [address] [facility], [place] [address] IMAGING: Reviewed in EPIC, no new results. [...] 2. 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 Bed alarm remains on for safety. Frequent reorientation provided, NPO since OR for scheduled ARNOLDO/cath today. VSS. Hourly rounding otherwise uneventful. Adi Goode RN Alexi Squires MD - 12/18/2019 3:13 PM PDTFormatting of this note might be different from the o riginal. [facility] Service: Infectious Diseases Progress [...] O POSITIVE Antibody Screen NEGATIVE BB BAND [id number] UNIT # [id number] Product Code LEUKODEPLETED PC Unit Division 00 Unit Status ISSUED Transfusion Status OK TO TRANSFUSE CROSSMATCH RESULT COMPATIBLE UNIT # [id number] Product Code LEUKODEPLETED PC Unit Division 00 Unit Status ISSUED Transfusion Status OK TO TRANSFUSE CROSSMATCH RESULT COMPATIBLE Testing performed at [facility] [place] [place] [address] 47569 UNIT # [id number] Product Code LEUKODEPLETED PC Unit Division 00 Unit Status ALLOCATED Transfusion Status OK TO TRANSFUSE CROSSMATCH RESULT COMPATIBLE Red Blood Cells (PRBC) - Crossmatch Result Value Ref Range Product Code RED CELL GROUP Units ordered 1 BLOOD BANK COMMENT ORDER RECEIVED IN BLOOD BANK. BLOOD BANK COMMENT Testing performed at [facility] [place] [place] [address] Red Blood Cells (PRBC) - Crossmatch Result Value Ref Range Product Code RED CELL GROUP Units ordered 2 BLOOD BANK COMMENT ORDER RECEIVED IN BLOOD BANK. BLOOD BANK COMMENT Testing performed at [facility] [place] [place] [address] 66545 Lactate Dehydrogenase Result Value Ref Range LDH TOTAL 244 120 - 246 U/L Retic Count Result Value Ref Range % Reticulocyte Count 4.7 (H) 0.4 - 2.7 % TSH, Reflex Free T4 Result Value Ref Range TSH 1.380 0.450 - 5.100 uIU/mL Microbiology Results (Last 14 Days by Collected Date with Culture/Sensitivity) Procedure Component Value Units Date/Time Coronavirus (COVID-19) NAAT [[id number]] Collected: 12/16/194 Order Status: Completed Lab Status: Final result Updated: 12/17/1921 SARS-CoV-2, NAAT (COVID-19) NEGATIVE Comment: This test was developed and its performance characteristics determined by [employer]. It has not been cleared or approved by the [place] FDA. This test has been authorized by FDA under an Emergency Use Authorization (EUA). Clinicians should be advised to consider a patients signs, symptoms, history, and results of other diagnostic tests when interpreting results. Testing performed at [facility] [place] [place] [address] 15148 Coronavirus (COVID-19) NAAT [[id number]] Collected: 12/16/192135 Order Status: Canceled Lab Status: No result Specimen: Tissue from Nasopharynx Culture, Blood [[id number]] Collected: 12/16/191924 Order Status: Completed Lab Status: Preliminary result Updated: 12/18/19716 Specimen: Peripheral Blood Special Requests RIGHT HAND Special Requests Testing performed at [facility] [place] [place] [address] 58940 RESULT NO GROWTH AT THIS TIME RESULT Testing performed at [facility], [address] [place] [address] Comment: Testing performed at [facility], [address] [place] [address] 27506 Culture, Blood [[id number]] Collected: 12/16/191924 Order Status: Completed Lab Status: Preliminary result Updated: 12/18/19716 Specimen: Peripheral Blood Special Requests LEFT HAND Special Requests Testing performed at [facility] [place] [place] [address] 31938 RESULT NO GROWTH AT THIS TIME RESULT Testing performed at [facility], [address] [place] [address] 40204 Comment: Testing performed at [facility], [address] [place] [address] 50375 Microbiology Results (72 hrs) Procedure Component Value Units Date/Time Coronavirus (COVID-19) NAAT [[id number]] Collected: 12/16/19 2314 Order Status: Completed Lab Status: Final result Updated: 12/17/19 0022 SARS-CoV-2, NAAT (COVID-19) NEGATIVE Comment: This test was developed and its performance characteristics determined by [employer]. It has not been cleared or approved by the [place] FDA. This test has been authorized by FDA under an Emergency Use Authorization (EUA). Clinicians should be advised to consider a patients signs, symptoms, history, and results of other diagnostic tests when interpreting results. Testing performed at [facility] [place] [place] [address] 27180 Culture, Blood [[id number]] Collected: 12/16/191924 Order Status: Completed Lab Status: Preliminary result Updated: 12/18/19716 Specimen: Peripheral Blood Special Requests RIGHT HAND Special Requests Testing performed at [facility] [place] [place] [address] 24573 RESULT NO GROWTH AT THIS TIME RESULT Testing performed at [facility], [address] [place] [address] 08104 Comment: Testing performed at [facility], [address] [place] [address] 95827 Culture, Blood [[id number]] Collected: 12/16/191924 Order Status: Completed Lab Status: Preliminary result Updated: 12/18/19716 Specimen: Peripheral Blood Special Requests LEFT HAND Special Requests Testing performed at [facility] [place] [place] [address] 65356 RESULT NO GROWTH AT THIS TIME RESULT Testing performed at [facility], [address] [place] [address] 28211 Comment: Testing performed at [facility], [address] [place] [address] 09127 IMAGING: No new images for review today. [...] Noble MD, MPH Infectious Diseases 12/18/19 Danielle Hardwick, PharmD - 12/18/2019 11:03 AM PDT Vancomycin [...] therapy as indicated. Thank You, Jose Alberto SwanD, 12/18/2019, 10:47 AM PDT onty Major MD - 12/18/2019 10:49 AM PDT [facility] Service: Hospitalist Progress Note Pt: Reilly Hamm AGE/SEX: 69 y.o. male ROOM: [facility]- : 1950 PCP: No Physician on file ADMIT DATE: 12/16/2019 TODAY'S DATE: 12/18/2019 Hospital Day/Hospital Course: LOS: 2 days Mr. Hamm is a 69-year-old male with no significant past medical history who originally pr esented to [facility] on 12/14 with progressive weakness for the last few months an d intermittent fevers for the last 1 month, found to have GPC bacteremia and mitral valve en docarditis, transferred to [facility] on 12/15 for further evaluation. Further [...] Component Value Units Date/Time Coronavirus (COVID-19) NAAT [[id number]] Collected: 12/16/19 2314 Order Status: Completed Lab Status: Final result Updated: 12/17/19 0022 SARS-CoV-2, NAAT (COVID-19) NEGATIVE Comment: This test was developed and its performance characteristics determined by [employer]. It has not been cleared or approved by the [place] FDA. This test has been authorized by FDA under an Emergency Use Authorization (EUA). Clinicians should be advised to consider a patients signs, symptoms, history, and results of other diagnostic tests when interpreting results. Testing performed at [facility] [place] [place] [address] 12563 Culture, Blood [[id number]] Collected: 12/16/191924 Order Status: Completed Lab Status: Preliminary result Updated: 12/18/19716 Specimen: Peripheral Blood Special Requests RIGHT HAND Special Requests [place] [facility] [place] [address] RESULT NO GROWTH AT THIS TIME RESULT Testing performed at [facility], [address] [place] [address] Comment: Testing performed at [facility], [address] [place] [address] Culture, Blood [[id number]] Collected: 12/16/191924 Order Status: Completed Lab Status: Preliminary result Updated: 12/18/19716 Specimen: Peripheral Blood Special Requests LEFT HAND Special Requests Testing performed at [facility];[address] [place] [address] RESULT NO GROWTH AT THIS TIME RESULT Testing performed at [facility], [address] [place] [address] Comment: Testing performed at [facility], [address] [facility], [place] [address] IMAGING: Reviewed in EPIC, no new results. [...] consulted -cardiology, Dr. Tejeda consulted, NPO at OR for possible cath and ARNOLDO tomorrow -ID, [...] 1 month Muscle Mass: Severe depletion PPx: [facility] Code status: Full Contacts: Nathalie, , [...] Tejeda MD - 12/18/2019 8:16 AM PDT [facility] Service: Cardiology Progress Note Date of Admission: 12/16/2019 BRIEF CLINICAL HISTORY: 69 y.o. male transferred from [facility] for iqugmiut m itral valve endocarditis with severe mitral [...] no lighthe adedness/syncope. He initially presented to [facility] 10/31/2019 with those complaints. Laboratory evaluation was [...] wa s discharged. He then presented to [facility] 12/15/2019 with altered mental stat [...] R with a rate of 97, short [place] and PACs. A repeat echo at [facility] showed preserved LV systolic f unction with [...] No evidence of pericardial effusion. (10/31/19 - [facility]): EF 55-60%. Impaired relaxation compatible with diastolic [...] mitral regurgitation ASSESSMENT & PLAN 1. 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 8. Type II diabetes mellitus - HgbA1C 6.2% on 10/31/19 admission and type II diabetes mellit us was diagnosed. ?Typically the cutoff for [...] more than one vascular access site, , [place], CVA, bleeding (including the need for blood [...] includi ng but not limited to , eua-eftourfuei-nwysmcp tear or rupture, risks of moderate anest hesia/sedation, vomiting and/or aspiration of gastric contents, etc. were discussed in detai l. No guarantees were given. All questions were answered. The patient verbalized underst anding and gave informed consent for the procedure. ASA 3 Mallampati 1 Code Status: Full Code j Curtis RN - 12/17/2019 6:25 PM PDTA/O, forgetful at times, afebrile, SR on tele with PACs (HR 70-90s), BP 120-130, voids QS, SBA to BR, denies pain throughout shift, lungs clear, on room air, PIV x3, plan for ARNOLDO and heart cath, no acute events this shift Electronically signed by: Nj Curtis RN 12/17/2019 6:30 PM PDT Nj Mlies RN - 0 12/17/2019 3:47 PM PDTAssumed care at 1530, bedside report received from Sarika DE LA CRUZ Electronically signed by: Nj Curtis RN 12/17/2019 3:48 PM PDT' eyna Neil H - 12/17/2019 2:55 PM PDT Aminoglycoside [...] Component Value Units Date/Time Coronavirus (COVID-19) NAAT [[id number]] Collected: 12/16/19 2314 Order Status: Completed Lab Status: Final result Updated: 12/17/19 0022 SARS-CoV-2, NAAT (COVID-19) NEGATIVE Comment: This test was developed and its performance characteristics determined by [employer]. It has not been cleared or approved by the US FDA. This test has been authorized by FDA under an Emergency Use Authorization (EUA). Clinicians should be advised to consider a patients signs, symptoms, history, and results of other diagnostic tests when interpreting results. Testing performed at [facility] [place] [address];[place] [address] Culture, Blood [[id number]] Collected: 12/16/191924 Order Status: Sent Lab Status: In process Updated: 12/16/192036 Specimen: Peripheral Blood Culture, Blood [[id number]] Collected: 12/16/191924 Order Status: Sent Lab Status: [...] indicate d. Thank You, Reyna Neil, PharmD, [facility] 12/17/19 2:51 PM PDT eyna Neil [facility] - 12/17/2019 2:42 PM PDT [...] as indicated. Thank You, Reyna Neil, PharmD, BCCCP 12/17/19 2:41 PM PDT erry, Jeet Herndon RD - 12/17/2019 9:21 AM PDT NUTRITION [...] Neil MD - 12/17/2019 9:05 AM PDT [facility] Adult Hospitalist Progress Note Hospital Day: 1 [...] cefepime and zosyn 2/2 BC from [facility] grew out gram positive cocci [...] consult in am Pt was admitted to [facility] on with fatigue and poor appetite. Pt [...] H/H of 12/03 with normal MCV (was on 10/31/19) If hct drops further will need transfusion ? Due to chronic illness Med surg bundle DVT prophylaxis: lovenox Code status: Full code per discussion with pt on 12/16/19 Med rec:Done with pt on 12/16/19 Family Contact: Nathalie [phone], updated on 12/17/19, wants daily update which [...] SpO2 95% | BMI 21.64 kg/m , [place] body weight: 61.5 kg (135 lb 9.3 oz) Weight used for dosing: Total Body Weight No results for input(s): WBC, CREA in the last 168 hours. Invalid input(s): PROCALCITONIN CrCl cannot be calculated (Patient's most recent lab result is older than the maximum 3 day s allowed.). Microbiology Results (72 hrs) Procedure Component Value Units Date/Time Coronavirus (COVID-19) NAAT [[id number]] Collected: 12/16/192135 Order Status: Sent Lab Status: In process Updated: 12/16/192143 Specimen: Tissue from Nasopharynx Culture, Blood [[id number]] Collected: 12/16/191924 Order Status: Sent Lab Status: In process Updated: 12/16/192036 Specimen: Peripheral Blood Culture, Blood [[id number]] Collected: 12/16/191924 Order Status: Sent Lab Status: [...] Tayler Posey PharmD 12/16/2019 9:50 PM PDT ayler Posey [...] Procedure Component Value Units Date/Time Culture, Blood [[id number]] Collected: 12/16/191924 Order Status: Sent Lab Status: In process Updated: 12/16/192036 Specimen: Peripheral Blood Culture, Blood [[id number]] Collected: 12/16/191924 Order Status: Sent Lab Status: In process Updated: 12/16/192035 Specimen: Peripheral Blood Vancomycin Dosing History Date Dosing Regimen Admin Times Trough SCr Comments Day 1 12/15 1500mg 2 12/14 1.16 Day 2 Day 3 (check [...] - 12/16/2019 6:39 PM PDTPt arrived from [facility] at 1800. Cardiazem stopped upon a rrival. Pt saline locked. This nurse tried to contact MD regarding pt's arrival to get orders. Able to get ahold of t susan MD at 1820. MD stating that he is not the admitting MD and to try another MD. PCC contact ed. MD not on the floor at this time. Pt placed in contact droplet precuautions d/t COVID test pending with [facility].Electron ically signed by Sarika Pinedo RN at [...] Galvan MD PhD, 12/24/2019 7:27 AM PDT [facility] Electronically signed by Reilly Galvan MD PhD at 12/12 7:27 AM Rashaad Espinoza MD - 12/17/2019 2:40 PM PDTAugust 2019 [...] An echocardiogram was performed on 15 December [facility] showed evidence of a vegetation on [...] report. The patient has been transferred to [facility] for further treatment and evaluation. He has [...] male with no significant PMH admitted to [facility] on 12/15/19 wit h weakness for [...] cocci in chains. Pt was transferred to [facility] on 12/15 for further treatment and [...] Affect: Mood normal. Behavior: Behavior normal. Labs: BMP CaMgPhos LFT CBC Coag Last labs from [...] cefepime and zosyn 2/2 BC from [facility] grew out gram positive cocci [...] consult in am Pt was admitted to [facility] on with fatigue and poor appetite. Pt [...] with pt on 12/16/19 Family Contact: Nathalie [phone] Something about patient:Pt lives with , they [...] note might be different from the original. [facility] Neurodiagnostic Dept [address] [place] [address] Patient: Reilly Hamm ID: [id number] : 1950 Age: 69 Gender: male Room #: 27601 Physician: Luis E [place] Blending Plant Operator: Josh Montoya Ref. Physician: Carolin MCGEE [...] Mckeon MD - 12/29/2019 2:23 PM PDT [facility] Service: Cardiology Initial Consult Note Name of Hand I Tube Bender: Olvin Mcekon MD Date of Admission: 12/16/2019 Reason for [...] CV LHC; Surgeon: Jeet Tejeda MD; [place] [facility] [place] LAB CARDIAC CATHERIZATION N/A 12/19/2019 Procedure: CV COR ANGIO; Surgeon: Jeet Tejeda MD; [place] [facility] [place] LAB CARDIAC CATHERIZATION Left 12/19/2019 Procedure: CV LV; Surgeon: Jeet Tejeda MD; [place] [facility] CV LAB MITRAL VALVE REPLACEMENT N/A 12/24/2019 Procedure: MITRAL VALVE REPLACEMENT; Surgeon: Reilly Galvan MD PhD; [place] [facility] CHRISTI N OR TOOTH EXTRACTION N/A 12/20/2019 Procedure: EXTRACTION TEETH; Surgeon: Job Menjivar DMD; [place] [facility] MAIN [place] MEDICATIONS Home [...] file Gets together: Not on file Attends hindu service: Not on file Active member of [...] measuring only 2.5 mm, with min imal zpsk-ay-lfwlv shunting. There is no evidence of zdqvt-lx-zyly shunting on the intraveno us bubble contrast [...] Physician on file Olvin Mckeon MD 12/29/2019 erryJeet, RD - 12/25/2019 2:06 PM PDTAssociated Order(s): IP CONSULT TO NUTRITION SERVICES NUTRITION NOTE Summary Reason For Assessment: per organizational policy, nurse/nurse practitioner consult(H risk follow up. Consult - TF recs per RD.) Pt is POD # 1 MVR, is intubated, sedated. Per discussion in rounds plan is to start TF. Diet Experience Self-Selected Diet: Pt in [facility] has food allergy/intolerance to soybean oil and canola oil. Spoke with pt's Nathalie at [phone]. Nathalie states pt does not have a [...] syndrome. Nutritional Risk Required Follow Up: 3 days(816 H) Jeet Keating RD,CD 12/25/2019 2:15 PM PDT Problem: Malnutrition Goal: Improved Nutritional Intake Outcome: Ongoing, progressing Note: Pt will tolerate TF at goal. arolin Lang A RNP - 12/24/2019 12:48 PM PDT [facility] Service: Citrus Fruit Colorer Initial Consult Note Reilly Hamm 69 y.o. Date of Admission: 12/16/2019 Reason for Consultation: bacterial endocarditis Requesting Physician: Dr. Galvan, Cardiothoracic Surgery History Obtained From: chart review, reason patient could not give history: intubated/sedat ed CHIEF COMPLAINT: weakness Subjective HISTORY OF PRESENT ILLNESS The patient is a 69 y.o. male with significant past medical history of diabetes mellitus wh o presented to [facility] 12/14 due to a 4 month history of weakness and 1 month hist ory of fevers. Echocardiogram was perfromed which revealed mitral valve endocarditis with mi tral valve regurgitation. He was started on zosyn and cefipime. Blood cultures obtained on a dmission grew out GPC in chains in 2/2 bottles. He was transferred to [facility] for further manag ement on 12/16 [...] was maintained on 2g ceftriaxone Q12 for CLINICAL APPLICATIONS MANAGER coverage . His carious teeth were removed [...] CV LHC; Surgeon: Jeet Tejeda MD; [place] [facility] [place] [place] LAB CARDIAC CATHERIZATION N/A 12/19/2019 Procedure: CV COR ANGIO; Surgeon: Jeet Tejeda MD; [place] [facility] [place] [place] LAB CARDIAC CATHERIZATION Left 12/19/2019 Procedure: CV LV; Surgeon: Jeet Tejeda MD; [place] [facility] [place] CV LAB TOOTH EXTRACTION N/A 12/20/2019 Procedure: EXTRACTION TEETH; Surgeon: Job Menjivar DMD; [place] [facility] MAIN [place] ALLERGIES Allergies [...] file Gets together: Not on file Attends hindu service: Not on file Active member of [...] ID. Has been on ceftriaxone 2gm for CLINICAL APPLICATIONS MANAGER coverage. Source of Infection: endocarditis and bacteremia [...] PM PDTAssociated Order(s): PROVIDER TO PROVIDER CONSULT [facility] Service: Neurology Initial Consult Note Date of Admission: 12/16/2019 Reason for Consultation: stroke Requesting Physician: Monty Major MD, Hospitalist History Obtained From: patient and chart review CHIEF COMPLAINT: confusion HISTORY OF PRESENT ILLNESS The patient is a 69 y.o. male with no significant past medical history who was admitted fro [facility] due to mitral valve endocarditis. I was [...] 2. 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 SET ILLUSTRATOR territory includ ing a 1.1 x 2.6 [...] reactive process Final Report Signed by: Fernando Bennett Timothy S ign Date/Time: 12/17/2019 4:[address] Maxillofacial Wo [...] valorie Daily 30 tablet 0 Scheduled Medications aspirin 81 mg Oral Daily atorvaSTATin 80 mg Oral Nightly cefTRIAXone 2 g Intravenous Q24H dilTIAZem 120 mg Oral Daily diphenhydrAMINE 25 mg Oral [employer] famotidine 20 mg Intravenous [employer] heparin 5,000 Units Subcutaneous Q12H melatonin 3 mg Oral Nightly probiotic formula 1 capsule Oral Daily with breakfast [START ON 12/20/2019] sodium chloride 0.9% Intravenous [employer] Continuous Infusions PRN Medications acetaminophen, ondansetron, sodium [...] RIGHT HAND Special Requests Testing performed at [facility] [place] [address] RESULT NO GROWTH AT THIS TIME RESULT Testing performed at [facility], [address] [place] [address] Culture, Blood Specimen: Peripheral Blood Result Value Ref Range Special Requests LEFT HAND Special Requests Testing performed at [facility];[address] [place] [address] RESULT NO GROWTH AT THIS TIME RESULT Testing performed at [facility], [address] [place] [address] Coronavirus (COVID-19) NAAT Result Value Ref Range [...] O POSITIVE Antibody Screen NEGATIVE BB BAND [id number] UNIT # [id number] Product Code LEUKODEPLETED PC Unit Division 00 Unit Status ISSUED,FINAL Transfusion Status OK TO TRANSFUSE CROSSMATCH RESULT COMPATIBLE UNIT # [id number] Product Code LEUKODEPLETED PC Unit Division 00 Unit Status ISSUED,FINAL Transfusion Status OK TO TRANSFUSE CROSSMATCH RESULT COMPATIBLE Testing performed at [facility];[address] [place] [address];[place] [address] UNIT # [id number] Product Code LEUKODEPLETED PC Unit Division 00 Unit Status ALLOCATED Transfusion Status OK TO TRANSFUSE CROSSMATCH RESULT COMPATIBLE Red Blood Cells (PRBC) - Crossmatch Result Value Ref Range Product Code RED CELL GROUP Units ordered 1 BLOOD BANK COMMENT ORDER RECEIVED IN BLOOD BANK. BLOOD BANK COMMENT Testing performed at [facility];[address] [place] [address];[place] [address] Red Blood Cells (PRBC) - Crossmatch Result Value Ref Range Product Code RED CELL GROUP Units ordered 2 BLOOD BANK COMMENT ORDER RECEIVED IN BLOOD BANK. BLOOD BANK COMMENT Testing performed at [facility];[address] [facility];[place] [address] PROBLEM LIST Principal Problem: Acute bacterial endocarditis [...] m ight be different from the original. [facility] Department of radar technician Consult Note Date of Admission: 12/16/2019 Reason for Consultation: Endocarditis; carious/fractured teeth Requesting Physician: Dr. Major, Hospitalist History Obtained From: Dr. Major CHIEF COMPLAINT: Carious/fractured teeth; endocarditis HISTORY OF PRESENT ILLNESS The patient is a 69 y.o. male with no significant PMH admitted to [facility] on 12/15/19 with weakness for 4 [...] cocci in chains. Pt was transferred to [facility] on 12/16/19 for further treatment and evaluation. [...] for further evaluation to a different hospita l where apparently it was noted he had altered mental status and a fever of 104 F. He had a slightly elevated troponin at the time. An echocardiogram was performed on 15 December [facility] showed evidence of a vegetation on [...] of the abdomen showing possible emboli to pa s spleen and liver although I have not seen these x-rays myself nor read the actual report. The patient has been transferred to [facility] for further treatment and evaluation. He has [...] endocarditis possibly present for months at this int. He has been noted on echocardiogram [...] PM PDTAssociated Order(s): PROVIDER TO PROVIDER CONSULT [facility] Service: Cardiology Initial Consult Note Name of Hand I Tube Bender: Martha Wolfe. LEA Dougherty/Dr. Daryl Tejeda Primary Auto Service Writer: None prior Reason for Consultation: [place] mitral valve endocarditis with severe MR, SVT Requesting Physician: Dr. Hart, Hospitalist History Obtained From: Patient (poor historian), Chart Review CHIEF COMPLAINT: Confusion, fever HISTORY OF PRESENT ILLNESS: Reilly Hamm is a 69 y.o. male who was transferred from [facility] fo r iqugmiut mitral valve endocarditis with severe mitral regurgitation [...] lightheadedness/syncope. In summary, he initially presented to [facility] 10/31/2019 with those complaints. Laboratory evaluation significant [...] to wors en, he then presented to [facility] 12/15/2019 with altered mental status and fe [...] pulmonary hypertension. He was subsequently transferred [place] [facility] [place]. Card iology is [...] but he is now a dmitted with iqugmiut mitral valve endocarditis with severe MR. No [...] file Gets together: Not on file Attends hindu service: Not on file Active member of [...] DIGLEVEL:3)@ ECGs reviewed: None since transfer to [facility] ECGs from admission at [place] and [facility] reviewed and as documented in HPI Echocardiogram: TTE 12/16/19 ([facility]): 1. Normal LV cavity, normal [...] No evidence of pericardial effusion. TTE 10/31/19 ([facility]): Summary Left ventricle is normal in size [...] None prior ASSESSMENT & PLAN 1. Infective iqugmiut mitral valve endocarditis with large mobile vegetation [...] AM PDTAssociated Order(s): PROVIDER TO PROVIDER CONSULT [facility] Service: Infectious Diseases Initial Consult Note Date [...] file Gets together: Not on file Attends hindu service: Not on file Active member of [...] 1,000 mg 1,000 mg Intravenous Once Tayler Posey, PharmD vancomycin per pharmacy Other Pharmacy Consult [...] Component Value Units Date/Time Coronavirus (COVID-19) NAAT [[id number]] Collected: 12/16/192313 Order Status: Completed Lab Status: Final result Updated: 12/17/19 0022 SARS-CoV-2, NAAT (COVID-19) NEGATIVE Comment: This test was developed and its performance characteristics determined by [employer]. It has not been cleared or approved by the [place] FDA. This test has been authorized by FDA under an Emergency Use Authorization (EUA). Clinicians should be advised to consider a patients signs, symptoms, history, and results of other diagnostic tests when interpreting results. Testing performed at [address];[place] [address] Coronavirus (COVID-19) NAAT [[id number]] Collected: 12/16/192135 Order Status: Canceled Lab Status: No result Specimen: Tissue from Nasopharynx Culture, Blood [[id number]] Collected: 12/16/191924 Order Status: Sent Lab Status: In process Updated: 12/16/192036 Specimen: Peripheral Blood Culture, Blood [[id number]] Collected: 12/16/191924 Order Status: Sent Lab Status: In process Updated: 12/16/192035 Specimen: Peripheral Blood Microbiology Results (72 hrs) Procedure Component Value Units Date/Time Coronavirus (COVID-19) NAAT [[id number]] Collected: 12/16/192313 Order Status: Completed Lab Status: Final result Updated: 12/17/19 0022 SARS-CoV-2, NAAT (COVID-19) NEGATIVE Comment: This test was developed and its performance characteristics determined by [employer]. It has not been cleared or approved by the US FDA. This test has been authorized by FDA under an Emergency Use Authorization (EUA). Clinicians should be advised to consider a patients signs, symptoms, history, and results of other diagnostic tests when interpreting results. Testing performed at [facility];[address] [place] [address];[place] [address] Culture, Blood [[id number]] Collected: 12/16/191924 Order Status: Sent Lab Status: In process Updated: 12/16/192036 Specimen: Peripheral Blood Culture, Blood [[id number]] Collected: 12/16/191924 Order Status: Sent Lab Status: [...] Bed Mobility Supine to Sit, Level of [place]: minimal assist (75% patient effort), moderate assist (50% patient effort) Transfers Sit-Stand, Level of [place]: stand by assist Gait Level of [place]: stand by assist Assistive Device: 4 wheeled [...] Bed Mobility Goal Most Recent Value LTG [place] Level minimum assist (75% patient effort) at 12/25/2019 1022 All Transfers Goal Most Recent Value LTG [place] Level stand by assist, contact guard assist at 12/25/2019 1022 Gait Goal Most Recent Value LTG [place] Level stand by assist, contact guard assist at 12/25/2019 1022 LTG Assistive Device 2 wheeled walker (FWW), 4 wheeled walker (4WW) at 12/25/2019 1022 LTG Distance (feet) 150 at 12/25/2019 1022 lan of Care - Sheila Pillai MA, CCC-MANAGING MANAGER - 12/30/2019 1:16 PM PDT Speech Therapy [...] to discharge - pt is discharging the hospita ) for 7 days with reassessment due [...] Pt will tolerate LRD at 12/30/2019 1259 MANAGING MANAGER Time Calculation MANAGING MANAGER Individual Start Time: 1259 MANAGING MANAGER Individual Stop Time: 1322 MANAGING MANAGER Individual Total Time: 23 MANAGING MANAGER Total Treatment Time: 23 SHEILA PILLAI MA, [facility]-MANAGING MANAGER 12/30/2019 lan of Job Jara MSW - 12/30/2019 10:22 AM PDTDISCHARGE PLANNING COPIER OPERATOR p/c with Renetta with Dr. Combs office with [facility], obtain ed upcoming brand new appt ([phone] fax, phone) for SundayJan 05. Dr. Combs will follow NOT follow new Coumadin or new Home Health orders until after new appt on Jan 05. COPIER OPERATOR p/c with Pilar with [facility], set up teaching today at 2pm in room with Pt and Pt daughter with Pt, unfortunately they are unable to leather softener medications to Pt by next 9pm dose, so Pt will stay another night in hospital, (avoidable day documented), Pt funmilayo l receive his 9:00am dose on Sunday then leave here at approx. 9:30am. Rosa sheriff RN. Pt already has discharge medications filled by [facility]. New Coumadin Clinic appt for 12/31 with Kenroy MCCOY at [facility], appt added to AVS. Transportation: Pt will transport Pt home tomorrow morning. DCP: Home with IV Abx - Sunday 9:30am YOBANY HOLGUIN [phone] [id number] lan of Darling Dover OTR/Chivo - 12/30/2019 9:00 AM PDT Occupational Therapy Treatment Note Recommended discharge disposition: home with assist Post discharge occupational therapy recommendation: family involved/supportive, home health Equipment Recommendations: hand held shower head, long handled sponge, chain person, sock aide, toilet tongs, shower chair Barriers [...] sternal ADLs Grooming Assessment/Training Grooming, Level of [place]: set up required Assistive Device: none Grooming Assess/Train, Position: sitting Upper Body Dressing Assessment/Training UB Dressing Assess/Train, Comment: Instructions provided for technique and tactile cueing t o maintain UEs close to chest when donning shirt overhead UB Dressing, Level of Camden: minimal assist (75% patient effort), verbal cues requir ed Assistive Device: none UB Dressing Assess/Train, Position: sitting UB Dressing Impairments: (precautions) Lower Body Dressing Assessment/Training LB Dressing Assess/Train, Comment: Pt was able to safetly bring feet up in order to don ryan ts over feet. LB Dressing, Level of Cam[place]: minimal assist (75% patient effort), verbal cues requir ed Assistive Device: none LB Dressing Assess/Train, Position: sitting, standing LB Dressing Impairments: (precautions) Transfers Sit-Stand, Level of [place]: stand by assist Stand-Sit, Level of Cam[place]: stand by assist [id number], Assistive Device: 4 wheeled walker (4WW) Impairments: strength decreased Balance Sitting Balance: Static: good balance Sitting Balance: Dynamic: good balance Standing Balance: Static: fair balance Goals Reflects last filed data and may be from multiple contributors. UB Dressing Goal Most Recent Value LTG Status new at 12/29/2019 1425 LTG Cam[place] Level minimum assist (75% patient effort) at 12/29/2019 1425 LTG Adaptive Equipment none at 12/29/2019 1425 LTG Comments Maintaining sternal precautions at 12/29/2019 1425 LB Dressing Goal Most Recent Value LTG Status new at 12/29/2019 1425 LTG [place] Level minimum assist (75% patient effort), verbal cues required at 2019 1425 LTG Adaptive Equipment chain person, shoe horn, long handled, sock-aid at 12/29/2019 [...] Bed Mobility Supine to Sit, Level of Camden: minimal assist (75% patient effort), moderate assist (50% patient effort) Transfers Sit-Stand, Level of Cam[place]: stand by assist Gait Level of Camden: stand by assist Assistive Device: 4 wheeled walker (4WW) Distance (feet): 350 Gait Pattern Analysis: swing-through gait Gait Deviations: yeison decreased Goals Reflects last filed data and may be from multiple contributors. All Bed Mobility Goal Most Recent Value LTG Cam[place] Level minimum assist (75% patient effort) at 12/25/2019 1022 All Transfers Goal Most Recent Value LTG [place] Level stand by assist, contact guard assist at 12/25/2019 1022 Gait Goal Most Recent Value LTG [place] Level stand by assist, contact guard assist [...] MSW - 12/29/2019 5:18 PM PDTDISCHARGE PLANNING COPIER OPERATOR met with Pt regarding choice for home infusion, states preference is [facility] COPIER OPERATOR p/c Pilar with [facility], needs IV Abx order, discussed with Pt . COPIER OPERATOR faxed referral to [facility], faxed referral to [facility] for PT and RN. Need Home health order for PT and RN Pt states Pt has new PCP - Dr. LILLIAN ACOSTA MD - [address] [place] [address], [facility] [place] [address] - Need to call Office on Sunday morning for Coumadin Follow up appt. DCP: Home YOBANY HOLGUIN [phone] cell lan of Papa Osuna PT - [...] oriented x 4 Transfers Sit-Stand, Level of Camden: stand by assist Stand-Sit, Level of Camden: stand by assist Qhs-Iosgk-Agk, Assistive Device: 4 wheeled walker (4WW) Toilet, Level of Camden: stand by assist Toilet, Assistive Device: 4 wheeled walker (4WW) Safety Issues: step length decreased Impairments: impaired balance, strength decreased Gait Level of Camden: stand by assist Assistive Device: 4 wheeled walker (4WW) Distance (feet): 350 Goals Reflects last filed data and may be from multiple contributors. All Bed Mobility Goal Most Recent Value LTG [place] Level minimum assist (75% patient effort) at 12/25/2019 1022 All Transfers Goal Most Recent Value LTG [place] Level stand by assist, contact guard assist at 12/25/2019 1022 Gait Goal Most Recent Value LTG [place] Level stand by assist, contact guard assist [...] VSS Sonia Brown RN 12/29/19 lan of [place] pelletier - Darling Terrell, OTR/L - 12/29/2019 2:25 PM PDTFormatting of this note might be differen t from the original. Occupational Therapy Initial Evaluation Note Recommended discharge disposition: home with assist Post discharge occupational therapy recommendation: family involved/supportive, home healt h Equipment Recommendations: hand held shower head, long handled sponge, chain person, sock aide, toilet tongs, shower chair Barriers [...] pull shirt down. LB dressing: use of chain person, sock aid, or bringing foot up to [...] LTG Status new at 12/29/2019 1425 LTG [place] Level minimum assist (75% patient effort) at 12/29/2019 1425 LTG Adaptive Equipment none at 12/29/2019 1425 LTG Comments Maintaining sternal precautions at 12/29/2019 1425 LB Dressing Goal Most Recent Value LTG Status new at 12/29/2019 1425 LTG [place] Level minimum assist (75% patient effort), verbal cues required at 2019 1425 LTG Adaptive Equipment chain person, shoe horn, long handled, sock-aid at 12/29/2019 1425 LTG Comments Maintaining sternal precautions at 12/29/2019 1425 lan of Care - Papa Mclaughlin Mildred, PT - 12/29/2019 12:24 PM PDT Physical [...] Speech: clear, logical Transfers Sit-Stand, Level of Cam[place]: stand by assist Stand-Sit, Level of Cam[place]: stand by assist Toilet, Level of Cam[place]: stand by assist Safety Issues: step length decreased Impairments: impaired balance, strength decreased Gait Level of Cam[place]: stand by assist, contact guard assist Assistive Device: 4 wheeled walker (4WW) Distance (feet): 350 Goals Reflects last filed data and may be from multiple contributors. All Bed Mobility Goal Most Recent Value LTG [place] Level minimum assist (75% patient effort) at 12/25/2019 1022 All Transfers Goal Most Recent Value LTG [place] Level stand by assist, contact guard assist at 12/25/2019 1022 Gait Goal Most Recent Value LTG [place] Level stand by assist, contact guard assist at 12/25/2019 1022 LTG Assistive Device 2 wheeled walker (FWW), 4 wheeled walker (4WW) at 12/25/2019 1022 LTG Distance (feet) 150 at 12/25/2019 1022 lan of Job Breg RN - 12/29/2019 6:22 AM PDT Problem: [...] toilet, sit to/from stand Sit-Stand, Level of Cam[place]: contact guard assist Stand-Sit, Level of Cam[place]: contact guard assist [id number], Assistive Device: 4 wheeled walker (4WW) Toilet, Level of Camden: contact guard assist Toilet, Assistive Device: 4 wheeled walker (4WW) Impairments: impaired balance, strength decreased Gait Level of Camden: contact guard assist Assistive Device: 4 wheeled walker (4WW), gait belt Distance (feet): 200 Gait Deviations: yeison decreased, stride length decreased Safety Issues: balance decreased during turns Goals Reflects last filed data and may be from multiple contributors. All Bed Mobility Goal Most Recent Value LTG [place] Level minimum assist (75% patient effort) at 12/25/2019 1022 All Transfers Goal Most Recent Value LTG [place] Level stand by assist, contact guard assist at 12/25/2019 1022 Gait Goal Most Recent Value LTG [place] Level stand by assist, contact guard assist [...] Documentation: sit to/from stand Sit-Stand, Level of Cam[place]: contact guard assist Stand-Sit, Level of Cam[place]: contact guard assist Oix-Havsn-Zyr, Assistive Device: gait belt, other (see comments)(HPW) Safety Issues: step length decreased Impairments: impaired balance, strength decreased Gait Level of Cam[place]: contact guard assist Assistive Device: gait belt, other (see comments)(HPW) Distance (feet): 120 Gait Deviations: yeison decreased, double stance time increased, limb motion velocity decr eased Safety Issues: balance decreased during turns, sequencing ability decreased, step length de creased, weight-shifting ability decreased Goals Reflects last filed data and may be from multiple contributors. All Bed Mobility Goal Most Recent Value LTG [place] Level minimum assist (75% patient effort) at 12/25/2019 1022 All Transfers Goal Most Recent Value LTG [place] Level stand by assist, contact guard assist at 12/25/2019 1022 Gait Goal Most Recent Value LTG [place] Level stand by assist, contact guard assist at 12/25/2019 1022 LTG Assistive Device 2 wheeled walker (FWW), 4 wheeled walker (4WW) at 12/25/2019 1022 LTG Distance (feet) 150 at 12/25/2019 1022 PT Time Calculation Individual Start Time: 0810 Individual Stop Time: 0840 Individual Total Time: 30 PT Total Treatment Time: 30 lan of Rima Smith RN - 12/28/2019 6:50 AM PDT Problem: [...] Documentation: sit to/from stand Sit-Stand, Level of Camden: minimal assist (75% patient effort) Stand-Sit, Level of [place]: moderate assist (50% patient effort) [id number]-[id number]-Qiq, Assistive Device: gait belt, other (see comments)(HPW) Safety Issues: loses balance backward, step length decreased Impairments: impaired balance, strength decreased Gait Level of Camden: minimal assist (75% patient effort) Assistive Device: [...] Bed Mobility Goal Most Recent Value LTG [place] Level minimum assist (75% patient effort) at 12/25/2019 1022 All Transfers Goal Most Recent Value LTG [place] Level stand by assist, contact guard assist at 12/25/2019 1022 Gait Goal Most Recent Value LTG [place] Level stand by assist, contact guard assist [...] Pt will tolerate LRD at 12/21/2019 1224 MANAGING MANAGER Time Calculation MANAGING MANAGER Individual Start Time: 1420 MANAGING MANAGER Individual Stop Time: 1432 MANAGING MANAGER Individual Total Time: 12 MANAGING MANAGER Total Treatment Time: 12 lan of Rima [...] and Safety Maintained Outcome: Met lan of Yelena Hermosillo MS [facility]-MANAGING MANAGER - 12/26/2019 3:28 PM PDTFormatting of this [...] Pt will tolerate LRD at 12/21/2019 1224 MANAGING MANAGER Time Calculation MANAGING MANAGER Individual Start Time: 1528 MANAGING MANAGER Individual Stop Time: 1551 MANAGING MANAGER Individual Total Time: 23 MANAGING MANAGER Total Treatment Time: 23 lan of Aki [...] Bed Mobility Supine to Sit, Level of Cam[place]: moderate assist (50% patient effort), 2 person assist required Transfers Sit-Stand, Level of Cam[place]: moderate assist (50% patient effort), 2 person assist req uired Gait Level of Cam[place]: moderate assist (50% patient effort), 1 person [...] Bed Mobility Goal Most Recent Value LTG [place] Level minimum assist (75% patient effort) at 12/25/2019 1022 All Transfers Goal Most Recent Value LTG [place] Level stand by assist, contact guard assist at 12/25/2019 1022 Gait Goal Most Recent Value LTG [place] Level stand by assist, contact guard assist at 12/25/2019 1022 LTG Assistive Device 2 wheeled walker (FWW), 4 wheeled walker (4WW) at 12/25/2019 1022 LTG Distance (feet) 150 at 12/25/2019 1022 lan of Care - Lillie Patle MSW - 12/26/2019 9:47 AM PDTAttended daily rounding. Pt was extuba prasanna this morning and is confused, per RN. At baseline, pt resides with his spouse in [place], [place]. CM to follow for discharge planning. YOBANY VAUGHN [...] Trevor Coombs ARNP - 12/25/2019 10:22 PM [facility] Service: Citrus Fruit Colorer Restraint for Medical Interference: Face to Face [...] Prevent or Manage Infection Flowsheets (Taken 12/25/2019 5368) Infection Management: aseptic technique maintained Note: Patient remains afebrile; WBC trending down from 12/23. No signs or symptoms of new i nfection. Patient remains on antibiotics esearch Note - Fadumo Williamson DO - 12/25/2019 12:53 PM PDTBRAVE STUDY CONSENT Title: Biomedical Resilience & Readiness in [employer] Operating Environments (BRAVE)-- Sampling Molecular Effectors of COVID-19 in Exhaled Breath Condensate (EBC) Partner Study with [facility] ([facility]) You are being asked to provide verbal consent of behalf of a participant to participate in this study as their legally authorized sales service representative (LAR). The goal of the [...] has received study information from the Primary Therapeutic Activities Services Worker or an authorized Sub-I nvestigator and have [...] opportunity to ask questions. He/She voluntarily gives [facility] permission to collect the specimens and send de-identified specimens a nd data to [facility]. He/She understands that participation is voluntary, and that he/she is shameka e to withdraw the participant at any time, without giving a reason and without penalty. He/She voluntarily agrees/ or does not consent as a legally authorized sales service representative on be half of a participant to participate in this study, as documented below: Do you consent for the patient to participate in this research study? __X___ Yes, I consent No, I do not consent Do you consent to use specimens and data for future research? __X___ Yes, I consent No, I do not consent Participant name: Reilly Hamm Legally authorized sales service representative's name: Nathalie Goara () Principle Therapeutic Activities Services Worker: Fadumo Rodriguez DO Date: 12/25/2019 [facility] IRB IRB Number: [id number] IRB Approval Date: 12/17/2019 lan of Diann [...] need for 6 weeks IV abx and 04/12 care for 2 wee ks after d/c. 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 Contact Information Family Contact Information: Name: Nathalie Hamm(spouse); [phone] Phone: spouse additonal contact: Alvaro Newton, daughter, Jlitromaoospkv signed by Da Thomas ch, COPIER OPERATOR at 12/25/2019 10:34 AM PDTPlan of [...] to/from sit Supine to Sit, Level of Cam[place]: moderate assist (50% patient effort), maximal assist (25% patient effort), 2 person assist required Transfers Additional Documentation: sit to/from stand Sit-Stand, Level of Cam[place]: moderate assist (50% patient effort), 1 person + 1 person to manage equipment Gait Level of Cam[place]: moderate assist (50% patient effort), maximal assist (25% patient ef fort), 1 person + 1 person to manage equipment Assistive Device: none, gait belt Distance (feet): 2 Additional Documentation: pattern, deviations, safety, impairments Gait Pattern Analysis: swing-to gait Gait Deviations: yeison decreased, limb motion velocity decreased, step length decreased, anoyk-xs-yxzlyi ratio decreased, weight-shifting ability decreased Safety Issues: [...] Bed Mobility Goal Most Recent Value LTG [place] Level minimum assist (75% patient effort) at 12/25/2019 1022 All Transfers Goal Most Recent Value LTG [place] Level stand by assist, contact guard assist at 12/25/2019 1022 Gait Goal Most Recent Value LTG [place] Level stand by assist, contact guard assist at 12/25/2019 1022 LTG Assistive Device 2 wheeled walker (FWW), 4 wheeled walker (4WW) at 12/25/2019 1022 LTG Distance (feet) 150 at 12/25/2019 1022 lan of Car e - Karina Engle MD - 12/25/2019 12:17 AM [facility] Service: Citrus Fruit Colorer Restraint for Medical Interference: Face to Face [...] Karina Engle MD 12/25/2019 12:17 AM PDT p Note - Reilly Galvan MD PhD - 12/24/2019 12:56 PM PDT [...] Anesthesiologist: Nimesh Castillo MD Anesthesia Type: General Brokerage Coordinator: Len Felipe RN; Hang Walker RN Ditcher: Trevon Bob, OR Tech Registered Nurse Relocation Director: Ingrid Delvalle, CROZE CUTTER HELPER; Ayana Parsons, CROZE CUTTER HELPER Scrub: Kaycee Pina, OR Tech; Alisia Monk, OR Tech; Dianne Caballero, OR Tech ; Antoinette Baca, OR Tech Relief Ditcher: Jaxon Beckman [facility] Fish Farmer: Bernadette Price [facility] INTRAOPERATIVE DATA: Cross-clamp time: 110 min CPB [...] Surgery 12/24/2019 12:56 PM PDT lan of Care - Denise Wade RN - 12/23/2019 9:35 [...] lan of Care - Sheree Miguel, MS [facility]-MANAGING MANAGER - 12/23/2019 4:41 PM PDT Speech Therapy [...] spee ch reevaluate swallow post teeth extraction. Production Proofreader at bedside to see pre-op. Pt expressed that he is nervous about surg. Discussed course of care post-op. End of shift chart review complete. lan of Care - Denise Harry RN - 12/22/2019 7:48 [...] Intake Outcome: Ongoing, progressing Pt seen by lithographic platemaker. Pt has decreased appetite. Encouraging food that seem appetizing and with each interaction. Chart check complete. Alisia Bello RN lan of Lillie Dill MSW - 12/22/2019 11:40 AM PDTCare Management Follow-Up Readmission Risk: HIGH Current Discharge Plan Anticipated Discharge Disposition: home Expected DC Date: 12/29/2019 Steps Taken Toward Discharge: COPIER OPERATOR attended daily rounding. Pt will have [...] answered, agreed to continue care. lan of [facility] - Brooke Huitron V, Speech Pathologist - [...] Pt will tolerate LRD at 12/21/2019 1224 MANAGING MANAGER Time Calculation MANAGING MANAGER Individual Start Time: 1224 MANAGING MANAGER Individual Stop Time: 1246 MANAGING MANAGER Individual Total Time: 22 MANAGING MANAGER Total Treatment Time: 22 12: 46 PM PDTPlan of Care - Mallory Rodriguez RN - 12/20/2019 7:27 [...] Job kohler DMD - 12/20/2019 12:05 PM [facility] Service: radar technician Operative Note Pre-operative Diagnosis: Bacterial endocarditis; carious [...] midline palatal torus Surgeon: Job Menjivar DMD Lift Manager(s): OR staff Anesthesia: General Estimated Blood Loss: less than 100 mL Indications: The patient is a 69 y.o. year-old male who was referred to [facility] for evaluation [...] was taken to [facility] and was placed on the operating room [...] stable Job Menjivar DMD 12/20/2019 lan of [facility] Adi Charlton RN - 12/19/2019 9:28 PM [...] Prior to Admission or Illness Arrival From: home([place], [place]) Lives With: spouse Living Arrangements: house Functional Status: indep at baseline Home Accessibility: no concerns Transportation Available: family or friend will provide Able to return to prior living: yes Care Management Concerns Last discharge date: Readmission Within Last 30 Days: no previous admission in last 30 days PCP: Cathi casillas, Dr Trinh? Contact Information Family Contact Information: Name: Nathalie Hamm(spouse); [phone] Phone: spouse additonal contact: Alvaro Newton, daughter, [...] RN 12/18/2019 3:14 PM PDT lan of [facility] Annika Ruiz RN - 12/18/2019 12:58 AM [...] check complete. Sarika Pinedo RN lan of [facility] Bulmaro Spring RN - 12/17/2019 5:38 AM PDTAntibiotics initiated last night per order. Pt is A and O x 4, but is forgetful and impulsive. At 2300 Pt pulled his villa out with balloon inf lated, and had bleeding from the site which tapered to a slow ooze and has mostly stopped. H e has voided several times since then, starting [...] | 2019 | Visit | | [address] [facility] [address] | | | | | | [place] | | | | | | [address] | | | | | | | | +--------+---------+ + + + | 01/15/ | Office | Cardiothoracic | Keaton Ernandez, | | 2019 | Visit | Surgery | [address] | | | | | | [place], | | | | | | [place] [address] | | | | | | [phone] | | | | | | | | +--------+---------+ + + + | 01/20/ | Office | Cardiology | Valarie, | | | 2019 | Visit | | [address] | | | | | | [address] | | | | | | [place] | | | | | | [address] | | | | | | | | +--------+---------+ + + + | 01/20/ | Office | Infectious Diseases | Josh Mckeon DO | | | 2019 | Visit | | [address] | | | | | | [place] [address] | | | | | | [phone] | | | | | | | [...] + +--------+ + + + | POC SHARITA PADILLA, | Routin | 12/24/2019 | | Results for this | | ARTERIAL | e | 11:40 AM | | procedure are in the | | | | PDT | | results section. | + +--------+ + + + | POC SHARITA PADILLA, | Routin | 12/24/2019 | | Results [...] | + +--------+ + + + | KAROL ABAD8, | Routin | 12/24/2019 | | Results [...] + +--------+ + + + | POC ISTROYT, CG8, | Routin | 12/24/2019 | | [...] Procedure Note | + + | Juan, [id number] - 12/31/2019 6:04 AM PDT | | [...] | | | | | performed at [facility] [place] | | | | | | [address];[place], [place] | | | | | | [address] | | | | + + + + + + + + | Specimen | + + | Blood | + + + + + + + | Performing | Address | City/State/Zipcode | Phone Number | | Organization | | | | + + + + + | [facility] | [address] | [place] [address] | [phone] | + + + + + Magnesium (12/31/2019 5:36 AM PDT) + + + + + + | Component | Value | Ref Range | Performed | Pathologist | | | | | At | Signature | + + + + + + | Magnesium | 1.5 (L)Comment: Testing | 1.7 - 2.4 mg/dL | NIGA | | | | performed at [facility] [place] [place] | | LABORATORY | | | | [address];[place] | | | | | | [address] | | | | + + + + + + + + | Specimen | + + | Blood | + + + + + + + | Performing | Address | City/State/Zipcode | Phone Number | | Organization | | | | + + + + + | [facility] | [address] | [place] [address] | [phone] | + + + + + CBC [...] | | | Absolute | performed at [facility], [address] | [address] | LABORATORY | | | [facility] | | | | | | [place] [address] | | | | + + + + + + + + | Specimen | + + | Blood | + + + + + + + | Performing | Address | City/State/Zipcode | Phone Number | | Organization | | | | + + + + + | [facility] | [address] | [place] [address] | [phone] | + + + + + Basic [...] | >60Comment: GFR <60: | >60 | [facility] | | | GFR | CHRONIC [...] | | | | | | MDRD [facility] traceable | | | | | | equation.Testing | | | | | | performed at [facility] [place] | | | | | | [facility];[place], [place] | | | | | | [address] | | | | + + + + + + + + | Specimen | + + | Blood | + + + + + + + | Performing | Address | City/State/Zipcode | Phone Number | | Organization | | | | + + + + + | [facility] | [address] | [place] [address] | [phone] | + + + + + POC Glucose (12/30/2019 8:34 PM PDT) + + + + + + | Component | Value | Ref Range | Performed | Pathologist | | | | | At | Signature | + + + + + + | Glucose, | 110 (H)Comment: Testing | 65 - 99 mg/dL | [facility] | | | POC | performed at [facility];[address] | | LABORATORY | | | | [address];[place] | | | | | | [address] | | | | + + + + + + + + | Specimen | + + | | + + + + + + + | Performing | Address | City/State/Zipcode | Phone Number | | Organization | | | | + + + + + | [facility] | [address] | [place] [address] | [phone] | + + + + + POC Glucose (12/30/2019 4:42 PM PDT) + + + + + + | Component | Value | Ref Range | Performed | Pathologist | | | | | At | Signature | + + + + + + | Glucose, | 99Comment: Testing | 65 - 99 mg/dL | [place] | | | POC | performed at [facility] [place] [place];[address] | | LABORATORY | | | | [address];[place] | | | | | | [address] | | | | + + + + + + + + | Specimen | + + | | + + + + + + + | Performing | Address | City/State/Zipcode | Phone Number | | Organization | | | | + + + + + | [facility] | [address] | [place] [address] | [phone] | + + + + + POC [...] | | | POC | performed at [facility];[address] | | LABORATORY | | | | [address];[place], [place] | | | | | | [address] | | | | + + + + + + + + | Specimen | + + | | + + + + + + + | Performing | Address | City/State/Zipcode | Phone Number | | Organization | | | | + + + + + | [facility] | [address] | [place] [address] | [phone] | + + + + + XR [...] | | pneumothorax. Final Report Signed by: Le, M.D., | | | Rachna Sign Date/Time: 12/30/2019 5:52 AM | | + + + + + + | Narrative | Performed At | + + + | [facility] CLINICAL INFORMATION: Post open | [facility] | | heart surgery COMPARISON: X-ray yesterday. | | + + + + + | Procedure Note | + + | Juan, [id number] - 12/30/2019 5:56 AM PDT | | [...] | | | | | performed at [facility] [place] | | | | | | [address] [facility];[place], [place] | | | | | | [address] | | | | + + + + + + + + | Specimen | + + | Blood | + + + + + + + | Performing | Address | City/State/Zipcode | Phone Number | | Organization | | | | + + + + + | [facility] | [address] | [place] [address] | [phone] | + + + + + Magnesium (12/30/2019 4:50 AM PDT) + + + + + + | Component | Value | Ref Range | Performed | Pathologist | | | | | At | Signature | + + + + + + | Magnesium | 1.7Comment: Testing | 1.7 - 2.4 mg/dL | [facility] | | | | performed at [facility] | | LABORATORY | | | | [address];[place], [place] | | | | | | [address] | | | | + + + + + + + + | Specimen | + + | Blood | + + + + + + + | Performing | Address | City/State/Zipcode | Phone Number | | Organization | | | | + + + + + | [facility] | [address] [facility] | [place] [address] | [phone] | + + + + + CBC [...] | | | Absolute | performed at [facility] | K/uL | LABORATORY | | | | [address];[place], [place] | | | | | | [address] | | | | + + + + + + + + | Specimen | + + | Blood | + + + + + + + | Performing | Address | City/State/Zipcode | Phone Number | | Organization | | | | + + + + + | [facility] | [address] | [place] [address] | [phone] | + + + + + Basic [...] 8.4 (L) | 8.5 - 10.5 | [facility] | | | | | mg/dL | LABORATORY | | + + + + + + | Estimated | >60Comment: GFR <60: | >60 | [facility] | | | GFR | CHRONIC [...] | | | | | | MDRD [facility] traceable | | | | | | equation.Testing | | | | | | performed at [facility] | | | | | | [facility];[place], [place] | | | | | | [address] | | | | + + + + + + + + | Specimen | + + | Blood | + + + + + + + | Performing | Address | City/State/[facility] | Phone Number | | Organization | | | | + + + + + | [facility] | [address] | [place] [address] | [phone] | + + + + + POC Glucose (12/29/2019 8:11 PM PDT) + + + + + + | Component | Value | Ref Range | Performed | Pathologist | | | | | At | Signature | + + + + + + | Glucose, | 106 (H)Comment: Testing | 65 - 99 mg/dL | [facility] | | | POC | performed at [facility] | | LABORATORY | | | | [address];[place] | | | | | | [address] | | | | + + + + + + + + | Specimen | + + | | + + + + + + + | Performing | Address | City/State/Zipcode | Phone Number | | Organization | | | | + + + + + | [facility] | [address] | [place] [address] | [phone] | + + + + + POC Glucose (12/29/2019 4:44 PM PDT) + + + + + + | Component | Value | Ref Range | Performed | Pathologist | | | | | At | Signature | + + + + + + | Glucose, | 102 (H)Comment: Testing | 65 - 99 mg/dL | [facility] | | | POC | performed at [facility] | | LABORATORY | | | | [address];[place], [place] | | | | | | [address] | | | | + + + + + + + + | Specimen | + + | | + + + + + + + | Performing | Address | City/State/Zipcode | Phone Number | | Organization | | | | + + + + + | [facility] | [address] | [place] [address] | [phone] | + + + + + POC [...] | | | POC | performed at [facility] | | LABORATORY | | | | [address];[place], [place] | | | | | | [address] | | | | + + + + + + + + | Specimen | + + | | + + + + + + + | Performing | Address | City/State/Zipcode | Phone Number | | Organization | | | | + + + + + | [facility] | [address] | [place] [address] | [phone] | + + + + + POC Glucose (12/29/2019 8:51 AM PDT) + + + + + + | Component | Value | Ref Range | Performed | Pathologist | | | | | At | Signature | + + + + + + | Glucose, | 93Comment: Testing | 65 - 99 mg/dL | [facility] | | | POC | performed at [facility];[address] | | LABORATORY | | | | [address];[place] | | | | | | [address] | | | | + + + + + + + + | Specimen | + + | | + + + + + + + | Performing | Address | City/State/Zipcode | Phone Number | | Organization | | | | + + + + + | [facility] | [address] | [place] [address] | [phone] | + + + + + ECG [...] MD | | | | | | ([id number]) on 12/29/2019 | | | | | [...] Procedure Note | + + | Juan, [id number] - 12/29/2019 6:31 AM PDT | | [...] | | Final Report Signed by: Fernando Dumont, Aki | | Sign Date/Time: 12/29/2019 6:28 AM [...] | | | | | performed at [facility] | | | | | | [address];[place] | | | | | | [address] | | | | + + + + + + + + | Specimen | + + | Blood | + + + + + + + | Performing | Address | City/State/Zipcode | Phone Number | | Organization | | | | + + + + + | [facility] | [address] | [place] [address] | [phone] | + + + + + Magnesium (12/29/2019 5:36 AM PDT) + + + + + + | Component | Value | Ref Range | Performed | Pathologist | | | | | At | Signature | + + + + + + | Magnesium | 1.8Comment: Testing | 1.7 - 2.4 mg/dL | [facility] | | | | performed at [facility];[address] | | LABORATORY | | | | [address];[place], [place] | | | | | | [address] | | | | + + + + + + + + | Specimen | + + | Blood | + + + + + + + | Performing | Address | City/State/Zipcode | Phone Number | | Organization | | | | + + + + + | [facility] | [address] | [place] [address] | [phone] | + + + + + CBC [...] | | | Absolute | performed at [facility] | K/uL | LABORATORY | | | | [address];[place], [place] | | | | | | [address] | | | | + + + + + + + + | Specimen | + + | Blood | + + + + + + + | Performing | Address | City/State/Zipcode | Phone Number | | Organization | | | | + + + + + | [facility] | [address] [facility] | [place] [address] | [phone] | + + + + + Basic [...] | | | | | performed at [facility] | | | | | | [facility];[place], [place] | | | | | | [address] | | | | + + + + + + + + | Specimen | + + | Blood | + + + + + + + | Performing | Address | City/State/Zipcode | Phone Number | | Organization | | | | + + + + + | [facility] | [address] | [place] [address] | [phone] | + + + + + MRI [...] Procedure Note | + + | Juan, [id number] - 12/28/2019 11:01 PM PDT | | [...] | | | POC | performed at [facility] | | LABORATORY | | | | [address];[place] | | | | | | [address] | | | | + + + + + + + + | Specimen | + + | | + + + + + + + | Performing | Address | City/State/Zipcode | Phone Number | | Organization | | | | + + + + + | [facility] | [address] | [place] [address] | [phone] | + + + + + POC Glucose (12/28/2019 4:24 PM PDT) + + + + + + | Component | Value | Ref Range | Performed | Pathologist | | | | | At | Signature | + + + + + + | Glucose, | 114 (H)Comment: Testing | 65 - 99 mg/dL | [facility] | | | POC | performed at [facility];[address] | | LABORATORY | | | | [address];[place] | | | | | | [address] | | | | + + + + + + + + | Specimen | + + | | + + + + + + + | Performing | Address | City/State/Zipcode | Phone Number | | Organization | | | | + + + + + | [facility] | [address] | [place] [address] | [phone] | + + + + + Protime [...] | | | | | performed at [facility] | | | | | | [address] [facility];[place], [place] | | | | | | [address] | | | | + + + + + + + + | Specimen | + + | Blood | + + + + + + + | Performing | Address | City/State/Zipcode | Phone Number | | Organization | | | | + + + + + | [facility] | [address] | [place] [address] | [phone] | + + + + + POC [...] | | | POC | performed at [facility] | | LABORATORY | | | | [address];[place], [place] | | | | | | [address] | | | | + + + + + + + + | Specimen | + + | | + + + + + + + | Performing | Address | City/State/Zipcode | Phone Number | | Organization | | | | + + + + + | [facility] | [address] [facility] | [place] [address] | [phone] | + + + + + ECG [...] | | | | | EARNESTINE THOMAS ([id number]) on | | | | | | [...] | | | POC | performed at [facility];[address] | | LABORATORY | | | | [address];[place] | | | | | | [address] | | | | + + + + + + + + | Specimen | + + | | + + + + + + + | Performing | Address | City/State/Zipcode | Phone Number | | Organization | | | | + + + + + | [facility] | [address] | [place] [address] | [phone] | + + + + + XR [...] Procedure Note | + + | Juan, [id number] - 12/28/2019 6:01 AM PDT | | [...] [facility] | | | | performed at [facility] | | LABORATORY | | | | [address] [facility];[place], [place] | | | | | | [address] | | | | + + + + + + + + | Specimen | + + | Blood | + + + + + + + | Performing | Address | City/State/Zipcode | Phone Number | | Organization | | | | + + + + + | [facility] | [address] | [place] [address] | [phone] | + + + + + CBC [...] | | | Absolute | performed at [facility] | K/uL | LABORATORY | | | | [address];[place] | | | | | | [address] | | | | + + + + + + + + | Specimen | + + | Blood | + + + + + + + | Performing | Address | City/State/Zipcode | Phone Number | | Organization | | | | + + + + + | [facility] | [address] | [place] [address] | [phone] | + + + + + Basic [...] | >60Comment: GFR <60: | >60 | [facility] | | | GFR | CHRONIC [...] | | | | | | MDRD [facility] traceable | | | | | | equation.Testing | | | | | | performed at [facility] | | | | | | [facility];[place], [place] | | | | | | [address] | | | | + + + + + + + + | Specimen | + + | Blood | + + + + + + + | Performing | Address | City/State/Zipcode | Phone Number | | Organization | | | | + + + + + | [facility] | [address] [facility] | [place] [address] | [phone] | + + + + + POC [...] | | | POC | performed at [facility];[address] | | LABORATORY | | | | [address];[place] | | | | | | [address] | | | | + + + + + + + + | Specimen | + + | | + + + + + + + | Performing | Address | City/State/Zipcode | Phone Number | | Organization | | | | + + + + + | [facility] | [address] | [place] [address] | [phone] | + + + + + POC Glucose (12/27/2019 5:10 PM PDT) + + + + + + | Component | Value | Ref Range | Performed | Pathologist | | | | | At | Signature | + + + + + + | Glucose, | 106 (H)Comment: Testing | 65 - 99 mg/dL | [facility] | | | POC | performed at [facility];[address] | | LABORATORY | | | | [address];[place] | | | | | | [address] | | | | + + + + + + + + | Specimen | + + | | + + + + + + + | Performing | Address | City/State/Zipcode | Phone Number | | Organization | | | | + + + + + | [facility] | [address] | [place] [address] | [phone] | + + + + + Potassium (12/27/2019 12:39 PM PDT) + + + + + + | Component | Value | Ref Range | Performed | Pathologist | | | | | At | Signature | + + + + + + | K | 4.4Comment: Testing | 3.5 - 4.9 | [facility] | | | | performed at [facility] | mmol/L | LABORATORY | | | | [address] [facility];[place], [place] | | | | | | [address] | | | | + + + + + + + + | Specimen | + + | Blood | + + + + + + + | Performing | Address | City/State/Zipcode | Phone Number | | Organization | | | | + + + + + | [facility] | [address] | [place] [address] | [phone] | + + + + + POC [...] | | | POC | performed at [facility];[address] | | LABORATORY | | | | [address];[place] | | | | | | [address] | | | | + + + + + + + + | Specimen | + + | | + + + + + + + | Performing | Address | City/State/Zipcode | Phone Number | | Organization | | | | + + + + + | [facility] | [address] | [place] [address] | [phone] | + + + + + XR [...] Procedure Note | + + | Juan, [id number] - 12/27/2019 10:00 AM PDT | | [...] | | Final Report Signed by: Fernando Collier, Rishi | | Sign Date/Time: 12/27/2019 9:56 AM [...] Procedure Note | + + | Juan, [id number] - 12/27/2019 9:33 AM PDT | | [...] | | | POC | performed at [facility] | | LABORATORY | | | | [address];[place], [place] | | | | | | [address] | | | | + + + + + + + + | Specimen | + + | | + + + + + + + | Performing | Address | City/State/Zipcode | Phone Number | | Organization | | | | + + + + + | [facility] | [address] | [place] [address] | [phone] | + + + + + XR [...] Procedure Note | + + | Juan, [id number] - 12/27/2019 6:04 AM PDT | | [...] Testing | 1.7 - 2.4 mg/dL | [facility] | | | | performed at [facility] | | LABORATORY | | | | [address];[place], [place] | | | | | | [address] | | | | + + + + + + + + | Specimen | + + | Blood | + + + + + + + | Performing | Address | City/State/Zipcode | Phone Number | | Organization | | | | + + + + + | [facility] | [address] | [place] [address] | [phone] | + + + + + CBC [...] | | | Absolute | performed at [facility];[address] | K/uL | LABORATORY | | | | [address];[place], [place] | | | | | | [address] | | | | + + + + + + + + | Specimen | + + | Blood | + + + + + + + | Performing | Address | City/State/Zipcode | Phone Number | | Organization | | | | + + + + + | [facility] | [address] | [place] [address] | [phone] | + + + + + Basic [...] | | | | | performed at [facility];[address] | | | | | | [facility];[place], [place] | | | | | | [address] | | | | + + + + + + + + | Specimen | + + | Blood | + + + + + + + | Performing | Address | City/State/Zipcode | Phone Number | | Organization | | | | + + + + + | [facility] | [address] | [place] [address] | [phone] | + + + + + POC [...] | | | POC | performed at [facility];[address] | | LABORATORY | | | | [address];[place], [place] | | | | | | [address] | | | | + + + + + + + + | Specimen | + + | | + + + + + + + | Performing | Address | City/State/Zipcode | Phone Number | | Organization | | | | + + + + + | [facility] | [address] | [place] [address] | [phone] | + + + + + POC Glucose (12/26/2019 5:30 PM PDT) + + + + + + | Component | Value | Ref Range | Performed | Pathologist | | | | | At | Signature | + + + + + + | Glucose, | 121 (H)Comment: Testing | 65 - 99 mg/dL | [facility] | | | POC | performed at [facility];[address] | | LABORATORY | | | | [address];[place] | | | | | | [address] | | | | + + + + + + + + | Specimen | + + | | + + + + + + + | Performing | Address | City/State/Zipcode | Phone Number | | Organization | | | | + + + + + | [facility] | [address] | [place] [address] | [phone] | + + + + + POC [...] | | | POC | performed at [facility];[address] | | LABORATORY | | | | [address];[place] | | | | | | [address] | | | | + + + + + + + + | Specimen | + + | | + + + + + + + | Performing | Address | City/State/Zipcode | Phone Number | | Organization | | | | + + + + + | [facility] | [address] | [place] [address] | [phone] | + + + + + Echo [...] done 12/16/2019 | | | at [facility]. | | |12/16/[address] [facility]. | | | | | + + [...] | | | POC | performed at [facility];[address] | | LABORATORY | | | | [address];[place], [place] | | | | | | [address] | | | | + + + + + + + + | Specimen | + + | | + + + + + + + | Performing | Address | City/State/Zipcode | Phone Number | | Organization | | | | + + + + + | [facility] | [address] | [place] [address] | [phone] | + + + + + ECG [...] of | | | | | | -DEC-2019 | | | | | | 08:04,Premature [...] | | | | | EARNESTINE THOMAS ([id number]) on | | | | | | [...] Procedure Note | + + | Juan, [id number] - 12/26/2019 6:22 AM PDT | | [...] | | | POC | performed at [facility];[address] | | LABORATORY | | | | [address];[place] | | | | | | [address] | | | | + + + + + + + + | Specimen | + + | | + + + + + + + | Performing | Address | City/State/Zipcode | Phone Number | | Organization | | | | + + + + + | [facility] | [address] | [place] [address] | [phone] | + + + + + Magnesium (12/26/2019 3:15 AM PDT) + + + + + + | Component | Value | Ref Range | Performed | Pathologist | | | | | At | Signature | + + + + + + | Magnesium | 2.3Comment: Testing | 1.7 - 2.4 mg/dL | [facility] | | | | performed at [facility];[address] | | LABORATORY | | | | [address];[place] | | | | | | [address] | | | | + + + + + + + + | Specimen | + + | Blood | + + + + + + + | Performing | Address | City/State/Zipcode | Phone Number | | Organization | | | | + + + + + | [facility] | [address] | [place] [address] | [phone] | + + + + + CBC [...] | | | Absolute | performed at [facility];[address] | K/uL | LABORATORY | | | | [address];[place], [place] | | | | | | [address] | | | | + + + + + + + + | Specimen | + + | Blood | + + + + + + + | Performing | Address | City/State/Zipcode | Phone Number | | Organization | | | | + + + + + | [facility] | [address] | [place] [address] | [phone] | + + + + + Basic [...] | | | | | performed at [facility];[address] | | | | | | [facility], [place] | | | | | | [address] | | | | + + + + + + + + | Specimen | + + | Blood | + + + + + + + | Performing | Address | City/State/Zipcode | Phone Number | | Organization | | | | + + + + + | [facility] | [address] | [place] [address] | [phone] | + + + + + POC Glucose (12/25/2019 9:10 PM PDT) + + + + + + | Component | Value | Ref Range | Performed | Pathologist | | | | | At | Signature | + + + + + + | Glucose, | 157 (H)Comment: Testing | 65 - 99 mg/dL | [facility] | | | POC | performed at [facility];[address] | | LABORATORY | | | | [address];[place] | | | | | | [address] | | | | + + + + + + + + | Specimen | + + | | + + + + + + + | Performing | Address | City/State/Zipcode | Phone Number | | Organization | | | | + + + + + | [facility] | [address] | [place] [address] | [phone] | + + + + + POC [...] | | | POC | performed at [facility];[address] | | LABORATORY | | | | [address];[place], [place] | | | | | | [address] | | | | + + + + + + + + | Specimen | + + | | + + + + + + + | Performing | Address | City/State/Zipcode | Phone Number | | Organization | | | | + + + + + | [facility] | [address] | [place] [address] | [phone] | + + + + + EEG (12/25/2019 3:04 PM PDT) + + + | Narrative | Performed At | + + + | Josh Montoya, Neurodiagnostic Tech 12/25/2019 3:04 PM | | | [facility]ostic [facility] [address] | | | [place] [address] Patient: Reilly Hamm ID: | | | [id number] : 1950 Age: 69 Gender: male Room #: 27994 | | | Physician: Luis E Malcolm [employer]ending [employer] Operator: Josh Montoya | | | Ref. [...] Testing | 65 - 99 mg/dL | [facility] | | | POC | performed at [facility];[address] | | LABORATORY | | | | [address];[place] | | | | | | [address] | | | | + + + + + + + + | Specimen | + + | | + + + + + + + | Performing | Address | City/State/Zipcode | Phone Number | | Organization | | | | + + + + + | [facility] | [address] | [place] [address] | [phone] | + + + + + POC [...] | | | POC | performed at [facility];[address] | | LABORATORY | | | | [address];[place], [place] | | | | | | [address] | | | | + + + + + + + + | Specimen | + + | | + + + + + + + | Performing | Address | City/State/Zipcode | Phone Number | | Organization | | | | + + + + + | [facility] | [address] | [place] [address] | [phone] | + + + + + Potassium (12/25/2019 12:31 PM PDT) + + + + + + | Component | Value | Ref Range | Performed | Pathologist | | | | | At | Signature | + + + + + + | K | 3.9Comment: Testing | 3.5 - 4.9 | [facility] | | | | performed at [facility] | mmol/L | LABORATORY | | | | [address];[place], [place] | | | | | | [address] | | | | + + + + + + + + | Specimen | + + | Blood | + + + + + + + | Performing | Address | City/State/Zipcode | Phone Number | | Organization | | | | + + + + + | [facility] | [address] | [place] [address] | [phone] | + + + + + POC Glucose (12/25/2019 10:39 AM PDT) + + + + + + | Component | Value | Ref Range | Performed | Pathologist | | | | | At | Signature | + + + + + + | Glucose, | 104 (H)Comment: Testing | 65 - 99 mg/dL | [facility] | | | POC | performed at [facility];[address] | | LABORATORY | | | | [address];[place] | | | | | | [address] | | | | + + + + + + + + | Specimen | + + | | + + + + + + + | Performing | Address | City/State/Zipcode | Phone Number | | Organization | | | | + + + + + | [facility] | [address] | [place] [address] | [phone] | + + + + + POC [...] | | | POC | performed at [facility];[address] | | LABORATORY | | | | [address];[place], [place] | | | | | | [address] | | | | + + + + + + + + | Specimen | + + | | + + + + + + + | Performing | Address | City/State/Zipcode | Phone Number | | Organization | | | | + + + + + | [facility] | [address] | [place] [address] | [phone] | + + + + + Potassium (12/25/2019 7:49 AM PDT) + + + + + + | Component | Value | Ref Range | Performed | Pathologist | | | | | At | Signature | + + + + + + | K | 4.0Comment: Testing | 3.5 - 4.9 | KR | | | | performed at [facility] [place] | mmol/L | LABORATORY | | | | [address];[place] | | | | | | [address] | | | | + + + + + + + + | Specimen | + + | Blood | + + + + + + + | Performing | Address | City/State/Zipcode | Phone Number | | Organization | | | | + + + + + | [facility] | [address] | [place] [address] | [phone] | + + + + + POC Glucose (12/25/2019 7:35 AM PDT) + + + + + + | Component | Value | Ref Range | Performed | Pathologist | | | | | At | Signature | + + + + + + | Glucose, | 105 (H)Comment: Testing | 65 - 99 mg/dL | [facility] | | | POC | performed at [facility] [place] | | LABORATORY | | | | [address];[place] | | | | | | [address] | | | | + + + + + + + + | Specimen | + + | | + + + + + + + | Performing | Address | City/State/Zipcode | Phone Number | | Organization | | | | + + + + + | [facility] | [address] | [place] [address] | [phone] | + + + + + POC [...] | | | POC | performed at [facility] [place] | | LABORATORY | | | | [address];[place] | | | | | | [address] | | | | + + + + + + + + | Specimen | + + | | + + + + + + + | Performing | Address | City/State/Zipcode | Phone Number | | Organization | | | | + + + + + | [facility] | [address] | [place] [address] | [phone] | + + + + + XR [...] Procedure Note | + + | Juan, [id number] - 12/25/2019 6:12 AM PDT | | [...] Fernando Grewal, Reilly | | Sign Date/Time: 12/25/2019 6:09 AM [...] | | | POC | performed at [facility] | | LABORATORY | | | | [address];[place], [place] | | | | | | [address] | | | | + + + + + + + + | Specimen | + + | | + + + + + + + | Performing | Address | City/State/Zipcode | Phone Number | | Organization | | | | + + + + + | [facility] | [address] | [place] [address] | [phone] | + + + + + Magnesium (12/25/2019 4:18 AM PDT) + + + + + + | Component | Value | Ref Range | Performed | Pathologist | | | | | At | Signature | + + + + + + | Magnesium | 2.6 (H)Comment: Testing | 1.7 - 2.4 mg/dL | [facility] | | | | performed at [facility] | | LABORATORY | | | | [address];[place] | | | | | | [address] | | | | + + + + + + + + | Specimen | + + | Blood | + + + + + + + | Performing | Address | City/State/Zipcode | Phone Number | | Organization | | | | + + + + + | [facility] | [address] | [place] [address] | [phone] | + + + + + CBC [...] | | | Absolute | performed at [facility] | K/uL | LABORATORY | | | | [address];[place], [place] | | | | | | [address] | | | | + + + + + + + + | Specimen | + + | Blood | + + + + + + + | Performing | Address | City/State/Zipcode | Phone Number | | Organization | | | | + + + + + | [facility] | [address] | [place] [address] | [phone] | + + + + + Basic [...] | | | | | | [facility]D [facility] traceable | | | | | | equation.Testing | | | | | | performed at [facility] | | | | | | [facility];[place], [place] | | | | | | [address] | | | | + + + + + + + + | Specimen | + + | Blood | + + + + + + + | Performing | Address | City/State/Zipcode | Phone Number | | Organization | | | | + + + + + | [facility] | [address] [facility] | [place] [address] | [phone] | + + + + + POC [...] | | | POC | performed at [facility] | | LABORATORY | | | | [address];[place], [place] | | | | | | [address] | | | | + + + + + + + + | Specimen | + + | | + + + + + + + | Performing | Address | City/State/Zipcode | Phone Number | | Organization | | | | + + + + + | [facility] | [address] | [place] [address] | [phone] | + + + + + POC Glucose (12/25/2019 3:07 AM PDT) + + + + + + | Component | Value | Ref Range | Performed | Pathologist | | | | | At | Signature | + + + + + + | Glucose, | 98Comment: Testing | 65 - 99 mg/dL | [facility] | | | POC | performed at [facility];[address] | | LABORATORY | | | | [address];[place], [place] | | | | | | [address] | | | | + + + + + + + + | Specimen | + + | | + + + + + + + | Performing | Address | City/State/Zipcode | Phone Number | | Organization | | | | + + + + + | [facility] | [address] [facility] | [place] [address] | [phone] | + + + + + POC Glucose (12/25/2019 1:56 AM PDT) + + + + + + | Component | Value | Ref Range | Performed | Pathologist | | | | | At | Signature | + + + + + + | Glucose, | 99Comment: Testing | 65 - 99 mg/dL | [facility] | | | POC | performed at [facility] | | LABORATORY | | | | [address];[place] | | | | | | [address] | | | | + + + + + + + + | Specimen | + + | | + + + + + + + | Performing | Address | City/State/Zipcode | Phone Number | | Organization | | | | + + + + + | [facility] | [address] | [place] [address] | [phone] | + + + + + Potassium (12/24/2019 11:55 PM PDT) + + + + + + | Component | Value | Ref Range | Performed | Pathologist | | | | | At | Signature | + + + + + + | K | 4.2Comment: Testing | 3.5 - 4.9 | [facility] | | | | performed at [facility] | mmol/L | LABORATORY | | | | [address];[place] | | | | | | [address] | | | | + + + + + + + + | Specimen | + + | Blood | + + + + + + + | Performing | Address | City/State/Zipcode | Phone Number | | Organization | | | | + + + + + | [facility] | [address] | [place] [address] | [phone] | + + + + + POC [...] | | | POC | performed at [facility];[address] | | LABORATORY | | | | [address];[place], [place] | | | | | | [address] | | | | + + + + + + + + | Specimen | + + | | + + + + + + + | Performing | Address | City/State/Zipcode | Phone Number | | Organization | | | | + + + + + | [facility] | [address] [facility] | [place] [address] | [phone] | + + + + + POC [...] | | | POC | performed at [facility] | | LABORATORY | | | | [address];[place] | | | | | | [address] | | | | + + + + + + + + | Specimen | + + | | + + + + + + + | Performing | Address | City/State/Zipcode | Phone Number | | Organization | | | | + + + + + | [facility] | [address] | [place] [address] | [phone] | + + + + + CT [...] Final Report Signed by: Terri, | | | Prosper King Date/Time: 12/25/2019 [...] Procedure Note | + + | Juan, [id number] - 12/25/2019 2:10 AM PDT | | [...] Testing | 65 - 99 mg/dL | [facility] | | | POC | performed at [facility];[address] | | LABORATORY | | | | [address];[place], [place] | | | | | | [address] | | | | + + + + + + + + | Specimen | + + | | + + + + + + + | Performing | Address | City/State/Zipcode | Phone Number | | Organization | | | | + + + + + | [facility] | [address] | [place] [address] | [phone] | + + + + + Potassium (12/24/2019 7:59 PM PDT) + + + + + + | Component | Value | Ref Range | Performed | Pathologist | | | | | At | Signature | + + + + + + | K | 4.5Comment: Testing | 3.5 - 4.9 | [facility] | | | | performed at [facility];[address] | mmol/L | LABORATORY | | | | [facility];[place], [place] | | | | | | [address] | | | | + + + + + + + + | Specimen | + + | Blood | + + + + + + + | Performing | Address | City/State/Zipcode | Phone Number | | Organization | | | | + + + + + | [facility] | [address] | [place] [address] | [phone] | + + + + + POC Glucose (12/24/2019 7:52 PM PDT) + + + + + + | Component | Value | Ref Range | Performed | Pathologist | | | | | At | Signature | + + + + + + | Glucose, | 106 (H)Comment: Testing | 65 - 99 mg/dL | [facility] | | | POC | performed at [facility];[address] | | LABORATORY | | | | [address];[place] | | | | | | [address] | | | | + + + + + + + + | Specimen | + + | | + + + + + + + | Performing | Address | City/State/Zipcode | Phone Number | | Organization | | | | + + + + + | [facility] | [address] | [place] [address] | [phone] | + + + + + POC Glucose (12/24/2019 6:49 PM PDT) + + + + + + | Component | Value | Ref Range | Performed | Pathologist | | | | | At | Signature | + + + + + + | Glucose, | 96Comment: Testing | 65 - 99 mg/dL | [facility] | | | POC | performed at [facility];[address] | | LABORATORY | | | | [address];[place] | | | | | | [address] | | | | + + + + + + + + | Specimen | + + | | + + + + + + + | Performing | Address | City/State/Zipcode | Phone Number | | Organization | | | | + + + + + | [facility] | [address] | [place] [address] | [phone] | + + + + + Blood [...] | | | Arterial, | performed at [facility] | | LABORATORY | | | POC | [address];[place], [place] | | | | | | [address] | | | | + + + + + + + + | Specimen | + + | | + + + + + + + | Performing | Address | City/State/Zipcode | Phone Number | | Organization | | | | + + + + + | [facility] | [address] | [place] [address] | [phone] | + + + + + POC Glucose (12/24/2019 5:54 PM PDT) + + + + + + | Component | Value | Ref Range | Performed | Pathologist | | | | | At | Signature | + + + + + + | Glucose, | 99Comment: Testing | 65 - 99 mg/dL | [facility] | | | POC | performed at [facility];[address] | | LABORATORY | | | | [address];[place], [place] | | | | | | [address] | | | | + + + + + + + + | Specimen | + + | | + + + + + + + | Performing | Address | City/State/Zipcode | Phone Number | | Organization | | | | + + + + + | [facility] | [address] | [place] [address] | [phone] | + + + + + POC Glucose (12/24/2019 5:03 PM PDT) + + + + + + | Component | Value | Ref Range | Performed | Pathologist | | | | | At | Signature | + + + + + + | Glucose, | 119 (H)Comment: Testing | 65 - 99 mg/dL | [facility] | | | POC | performed at [facility];[address] | | LABORATORY | | | | [address];[place] | | | | | | [address] | | | | + + + + + + + + | Specimen | + + | | + + + + + + + | Performing | Address | City/State/Zipcode | Phone Number | | Organization | | | | + + + + + | [facility] | [address] | [place] [address] | [phone] | + + + + + Potassium (12/24/2019 3:57 PM PDT) + + + + + + | Component | Value | Ref Range | Performed | Pathologist | | | | | At | Signature | + + + + + + | K | 4.3Comment: Testing | 3.5 - 4.9 | [facility] | | | | performed at [facility];[address] | mmol/L | LABORATORY | | | | [facility];[place], [place] | | | | | | [address] | | | | + + + + + + + + | Specimen | + + | Blood | + + + + + + + | Performing | Address | City/State/Zipcode | Phone Number | | Organization | | | | + + + + + | [facility] | [address] | [place] [address] | [phone] | + + + + + POC [...] | | | POC | performed at [facility];[address] | | LABORATORY | | | | [address];[place] | | | | | | [address] | | | | + + + + + + + + | Specimen | + + | | + + + + + + + | Performing | Address | City/State/Zipcode | Phone Number | | Organization | | | | + + + + + | [facility] | [address] | [place] [address] | [phone] | + + + + + Activated clotting time (12/24/2019 3:26 PM PDT) + + + + + + | Component | Value | Ref Range | Performed | Pathologist | | | | | At | Signature | + + + + + + | Activated | 257 (H)Comment: Testing | 74 - 137 | [facility] | | | Clotting | performed at [facility] | seconds | LABORATORY | | | Time, POC | [address];[place] | | | | | | [address] | | | | + + + + + + + + | Specimen | + + | | + + + + + + + | Performing | Address | City/State/Zipcode | Phone Number | | Organization | | | | + + + + + | [facility] | [address] | [place] [address] | [phone] | + + + + + Blood [...] | | | Arterial, | performed at [facility] | | LABORATORY | | | POC | [address];[place], [place] | | | | | | [address] | | | | + + + + + + + + | Specimen | + + | | + + + + + + + | Performing | Address | City/State/Zipcode | Phone Number | | Organization | | | | + + + + + | [facility] | [address] | [place] [address] | [phone] | + + + + + POC Glucose (12/24/2019 2:44 PM PDT) + + + + + + | Component | Value | Ref Range | Performed | Pathologist | | | | | At | Signature | + + + + + + | Glucose, | 127 (H)Comment: Testing | 65 - 99 mg/dL | [facility] | | | POC | performed at [facility];[address] | | LABORATORY | | | | [address];[place] | | | | | | [address] | | | | + + + + + + + + | Specimen | + + | | + + + + + + + | Performing | Address | City/State/Zipcode | Phone Number | | Organization | | | | + + + + + | [facility] | [address] | [place] [address] | [phone] | + + + + + XR [...] Procedure Note | + + | Juan, [id number] - 12/24/2019 1:58 PM PDT | | [...] | | | Arterial, | performed at [facility];[address] | | LABORATORY | | | POC | [address];[place] | | | | | | [address] | | | | + + + + + + + + | Specimen | + + | | + + + + + + + | Performing | Address | City/State/Zipcode | Phone Number | | Organization | | | | + + + + + | [facility] | [address] [facility] | [place] [address] | [phone] | + + + + + POC Glucose (12/24/2019 1:29 PM PDT) + + + + + + | Component | Value | Ref Range | Performed | Pathologist | | | | | At | Signature | + + + + + + | Glucose, | 128 (H)Comment: Testing | 65 - 99 mg/dL | [facility] | | | POC | performed at [facility];[address] | | LABORATORY | | | | [address];[place] | | | | | | [address] | | | | + + + + + + + + | Specimen | + + | | + + + + + + + | Performing | Address | City/State/Zipcode | Phone Number | | Organization | | | | + + + + + | [facility] | [address] | [place] [address] | [phone] | + + + + + PTT (12/24/2019 1:28 PM PDT) + + + + + + | Component | Value | Ref Range | Performed | Pathologist | | | | | At | Signature | + + + + + + | PTT | 32Comment: Testing | 23 - 32 seconds | [facility] | | | | performed at [facility];[address] | | LABORATORY | | | | [address];[place] | | | | | | [address] | | | | + + + + + + + + | Specimen | + + | Blood | + + + + + + + | Performing | Address | City/State/Zipcode | Phone Number | | Organization | | | | + + + + + | [facility] | [address] | [place] [address] | [phone] | + + + + + Protime [...] | | | | | performed at [facility] | | | | | | [facility], [place] | | | | | | [address] | | | | + + + + + + + + | Specimen | + + | Blood | + + + + + + + | Performing | Address | City/State/Zipcode | Phone Number | | Organization | | | | + + + + + | [facility] | [address] | [place] [address] | [phone] | + + + + + Magnesium (12/24/2019 1:28 PM PDT) + + + + + + | Component | Value | Ref Range | Performed | Pathologist | | | | | At | Signature | + + + + + + | Magnesium | 3.1 (H)Comment: Testing | 1.7 - 2.4 mg/dL | [facility] | | | | performed at [facility];[address] | | LABORATORY | | | | [address];[place], [place] | | | | | | [address] | | | | + + + + + + + + | Specimen | + + | Blood | + + + + + + + | Performing | Address | City/State/Zipcode | Phone Number | | Organization | | | | + + + + + | [facility] | [address] [facility] | [place] [address] | [phone] | + + + + + Fibrinogen (12/24/2019 1:28 PM PDT) + + + + + + | Component | Value | Ref Range | Performed | Pathologist | | | | | At | Signature | + + + + + + | Fibrinogen | 292Comment: Testing | 200 - 450 mg/dL | [facility] | | | | performed at [facility];[address] | | LABORATORY | | | | [address];[place], [place] | | | | | | [address] | | | | + + + + + + + + | Specimen | + + | Blood | + + + + + + + | Performing | Address | City/State/Zipcode | Phone Number | | Organization | | | | + + + + + | [facility] | [address] | [place] [address] | [phone] | + + + + + CBC with Differential (12/24/2019 1:28 PM PDT) + + + + + + | Component | Value | Ref Range | Performed | Pathologist | | | | | At | Signature | + + + + + + | WBC | 41.65 ()Comment: | 3.80 - 11.00 | [facility] | | | | CALLED RESULTSREAD BACK [...] at | | | | | | [facility] | | | | | | [address];[place] [address] | | | | + + + + + + + + | Specimen | + + | Blood | + + + + + + + | Performing | Address | City/State/Zipcode | Phone Number | | Organization | | | | + + + + + | [facility] | [address] | [place] [address] | [phone] | + + + + + Basic [...] | | | | | performed at [facility] | | | | | | [facility];[place], [place] | | | | | | [address] | | | | + + + + + + + + | Specimen | + + | Blood | + + + + + + + | Performing | Address | City/State/Zipcode | Phone Number | | Organization | | | | + + + + + | [facility] | [address] | [place] [address] | [phone] | + + + + + ECHO [...] SUSHIL | | | JARAD Patient Number [id number] Date of Study | | | 12/24/2019 Visit Number [id number] Referring | | | Physician SAMUEL Gracia | | | Senior Benefits Specialist Number Date of 1950 | | | Interpreting Nimesh Castillo MD | | | Physician Age 69 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 Procedure DateDate: | | | 12/24/2019 Start: 08:34 AM Study Location: [facility] Quality: | | | Adequate visualization Patient [...] LAE. At least | | | moderate iqugmiut MR with (+)vegetation on P2 scallop. Mild AI. Trace | | | TR. Mild PI. 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 | | | Signature | | | | | | Electronically signed by Nimesh Castilol MD (Interpreting physician) on | | | [...] | demonstrates lipomatous hypertrophy. (+)small PFO with hptj-ds-roovx | | | shunt via CFM. Left [...] Aorta: 2.48 cm | | | Miscellaneous PbespjlzEjzm-ab-nsdsganb atherosclerosis of thoracic | | | aorta. [...] Pleura Pleural Effusion Findings | | | Dxuhp-ci-sfjprrms left pleural effusion noted. Valves Mitral Valve [...] Valve Findings AV annulus = 21mm. Tri-cuspid iqugmiut valve. Mild cusp & | | | [...] | | | |Miscellaneous Findings | | |Xcxo-oo-xqhdijhq atherosclerosis of thoracic aorta. | | | [...] | Pleural Effusion Findings | | | Vderx-yr-qqnvkljg left pleural effusion noted. | | | [...] | | AV annulus = 21mm. Tri-cuspid iqugmiut valve. 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 At | | least moderate iqugmiut MR with (+)vegetation on P2 scallop. Mild AI. Trace | | TR. Mild PI. s/p satisfactory 29mm [facility] Epic bioprosthetic MVR. | | | | [...] lipomatous hypertrophy. | | (+)small PFO with urxo-sc-abrcx shunt via CFM. | | | | [...] | | | Miscellaneous Findings | | Thmv-fw-ddpqkoyp atherosclerosis of thoracic aorta. | | | [...] | | Pleural Effusion Findings | | Akcej-ft-zouudnsx left pleural effusion noted. | | | [...] | | AV annulus = 21mm. Tri-cuspid iqugmiut valve. Mild cusp & annular | | [...] | | | Arterial, | performed at [facility] | | LABORATORY | | | POC | [address];[place], [place] | | | | | | [address] | | | | + + + + + + + + | Specimen | + + | | + + + + + + + | Performing | Address | City/State/Zipcode | Phone Number | | Organization | | | | + + + + + | [facility] | [address] | [place] [address] | [phone] | + + + + + POC ISTAT, CG8, Arterial (12/24/2019 12:14 PM PDT) + + + + + + | Component | Value | Ref Range | Performed | Pathologist | | | | | At | Signature | + + + + + + | pH, | 7.358 | 7.350 - 7.450 | [facility] | | | Arterial, | | [...] | | | POC | performed at [facility]888 | g/dL | LABORATORY | | | | [address];[place] | | | | | | [address] | | | | + + + + + + + + | Specimen | + + | | + + + + + + + | Performing | Address | City/State/Zipcode | Phone Number | | Organization | | | | + + + + + | [facility] | [address] | [place] [address] | [phone] | + + + + + POC [...] Testing | 95 - 98 % | [facility] | | | Arterial, | performed at [facility];[address] | | LABORATORY | | | POC | [address];[place] | | | | | | [address] | | | | + + + + + + + + | Specimen | + + | | + + + + + + + | Performing | Address | City/State/Zipcode | Phone Number | | Organization | | | | + + + + + | [facility] | [address] | [place] [address] | [phone] | + + + + + POC [...] | | | POC | performed at [facility];888 | g/dL | LABORATORY | | | | [address];[place] | | | | | | [address] | | | | + + + + + + + + | Specimen | + + | | + + + + + + + | Performing | Address | City/State/Zipcode | Phone Number | | Organization | | | | + + + + + | [facility] | [address] | [place] [address] | [phone] | + + + + + POC [...] | | | POC | performed at [facility];888 | g/dL | LABORATORY | | | | [address];[place], [place] | | | | | | [address] | | | | + + + + + + + + | Specimen | + + | | + + + + + + + | Performing | Address | City/State/Zipcode | Phone Number | | Organization | | | | + + + + + | [facility] | [address] | [place] [address] | [phone] | + + + + + POC CG 4, ISTAT Arterial (12/24/2019 10:42 AM PDT) + + + + + + | Component | Value | Ref Range | Performed | Pathologist | | | | | At | Signature | + + + + + + | pH, | 7.364Comment: This test | 7.350 - 7.450 | [facility] | | | Arterial, | was [...] | | | Arterial, | performed at [facility];[address] | | LABORATORY | | | POC | [facility];[place], [place] | | | | | | [address] | | | | + + + + + + + + | Specimen | + + | | + + + + + + + | Performing | Address | City/State/Zipcode | Phone Number | | Organization | | | | + + + + + | [facility] | [address] | [place] [address] | [phone] | + + + + + POC RANDY CG8, Arterial (12/24/2019 10:38 AM PDT) + [...] (L)Comment: Testing | 13.7 - 16.7 | [facility] | | | POC | performed at [facility] [place] | g/dL | LABORATORY | | | | [address];[place], [place] | | | | | | [address] | | | | + + + + + + + + | Specimen | + + | | + + + + + + + | Performing | Address | City/State/Zipcode | Phone Number | | Organization | | | | + + + + + | [facility] | [address] | [place] [address] | [phone] | + + + + + Surgical [...] brown-brothers to hemorrhagic area. | | | Hand Packager sections of each are submitted in cassette [...] | | professional interpretation was performed by [facility], | | | [address] (Medical | | | Director: Josh Bob M.D.; CLIA#: [id number]).The technical | | | component was performed by [facility], [address] [place] [address], | | | [place] [address] (Ad Trafficker: Fadumo Triana MD; CLIA# | | | [id number]). Diagnostician: Josh Bob | | | MDPathologistElectronically [...] RESULT | Testing performed at | | [facility] | | | | L, [address] | | LABORATORY | | | | [address], [place], [place] | | | | | | [id number]: Testing | | | | | | performed at [facility], [address] | | [address] | | [facility] [address] [address], | | | | | | [place] [address] | | | | + + + + + + + + | Specimen | + + | Tissue - Heart valve | | tissue (specimen) | + + + + + + + | Performing | Address | City/State/Zipcode | Phone Number | | Organization | | | | + + + + + | [facility] | [address] | [place] [address] | [phone] | + + + + + POC [...] | | | POC | performed at [facility]888 | g/dL | LABORATORY | | | | [address]it [address];[place] | | | | | | [address] | | | | + + + + + + + + | Specimen | + + | | + + + + + + + | Performing | Address | City/State/Zipcode | Phone Number | | Organization | | | | + + + + + | [facility] | [address] | [place] [address] | [phone] | + + + + + POC [...] | | | POC | performed at [facility]888 | g/dL | LABORATORY | | | | [address]jit Jin;[place], [place] | | | | | | [address] | | | | + + + + + + + + | Specimen | + + | | + + + + + + + | Performing | Address | City/State/Zipcode | Phone Number | | Organization | | | | + + + + + | [facility] | [address] | [place] [address] | [phone] | + + + + + POC [...] (LL)Comment: Testing | 13.7 - 16.7 | [facility] | | | POC | performed at [facility]888 | g/dL | LABORATORY | | | | [address];[place] | | | | | | [address] | | | | + + + + + + + + | Specimen | + + | | + + + + + + + | Performing | Address | City/State/Zipcode | Phone Number | | Organization | | | | + + + + + | [facility] | [address] | [place] [address] | [phone] | + + + + + POC [...] | | | POC | performed at [facility]888 | g/dL | LABORATORY | | | | [address];[place], [place] | | | | | | [address] | | | | + + + + + + + + | Specimen | + + | | + + + + + + + | Performing | Address | City/State/Zipcode | Phone Number | | Organization | | | | + + + + + | [facility] | [address] | [place] [address] | [phone] | + + + + + POC CG 4, ISTAT Arterial (12/24/2019 8:37 AM PDT) + + + + + + | Component | Value | Ref Range | Performed | Pathologist | | | | | At | Signature | + + + + + + | pH, | 7.447Comment: This test | 7.350 - 7.450 | [facility] | | | Arterial, | was [...] | | | Arterial, | performed at [facility]888 | | LABORATORY | | | POC | [facility] | | | | | | [address] | | | | + + + + + + + + | Specimen | + + | | + + + + + + + | Performing | Address | City/State/Zipcode | Phone Number | | Organization | | | | + + + + + | [facility] | [address] | [place] [address] | [phone] | + + + + + POC RANDY CG8, Arterial (12/24/2019 8:34 AM PDT) + [...] | | | POC | performed at [facility]888 | g/dL | LABORATORY | | | | [address]it [address];[place] | | | | | | [address] | | | | + + + + + + + + | Specimen | + + | | + + + + + + + | Performing | Address | City/State/Zipcode | Phone Number | | Organization | | | | + + + + + | [facility] | [address] | [place] [address] | [phone] | + + + + + POC Glucose (12/24/2019 7:22 AM PDT) + + + + + + | Component | Value | Ref Range | Performed | Pathologist | | | | | At | Signature | + + + + + + | Glucose, | 119 (H)Comment: Testing | 65 - 99 mg/dL | [facility] | | | POC | performed at [facility];888 | | LABORATORY | | | | [address];[place] | | | | | | [address] | | | | + + + + + + + + | Specimen | + + | | + + + + + + + | Performing | Address | City/State/Zipcode | Phone Number | | Organization | | | | + + + + + | [facility] | [address] | [place] [address] | [phone] | + + + + + Red [...] | ORDER RECEIVED IN BLOOD | | [facility] | | | COMMENT | BANK. | | LABORATORY | | + + + + + + | BLOOD BANK | Testing performed at | | [facility] | | | COMMENT | [facility];[address] | | LABORATORY | | | | [address];[place] [address] | | | | + + + + + + + + | Specimen | + + | | + + + + + + + | Performing | Address | City/State/Zipcode | Phone Number | | Organization | | | | + + + + + | [facility] | [address] | [place] [address] | [phone] | + + + + + Coronavirus [...] | | | | | performed at [facility] | | | | | | [facility];[place] | | | | | | [address] | | | | + + + + + + + + | Specimen | + + | Tissue - Entire | | nasopharynx (body | | structure) | + + + + + + + | Performing | Address | City/State/Zipcode | Phone Number | | Organization | | | | + + + + + | [facility] | [address] | [place] [address] | [phone] | + + + + + Basic [...] | >60Comment: GFR <60: | >60 | [facility] | | | GFR | CHRONIC [...] | | | | | performed at [facility], [address] | | | | | | [facility], | | | | | | [place] [address] | | | | + + + + + + + + | Specimen | + + | Blood | + + + + + + + | Performing | Address | City/State/Zipcode | Phone Number | | Organization | | | | + + + + + | [facility] | [address] | [place] [address] | [phone] | + + + + + CBC [...] | | | Absolute | performed at [facility], [address] | K/uL | LABORATORY | | | | [address], | | | | | | [place] [address] | | | | + + + + + + + + | Specimen | + + | Blood | + + + + + + + | Performing | Address | City/State/Zipcode | Phone Number | | Organization | | | | + + + + + | [facility] | [address] | [place] [address] | [phone] | + + + + + Urinalysis [...] - 1.030 | [facility] | | | [place], | | | LABORATORY | | | [...] | | | Urine | performed at [facility];888 | | LABORATORY | | | | [address];[place], [place] | | | | | | [address] | | | | + + + + + + + + | Specimen | + + | Urine | + + + + + + + | Performing | Address | City/State/Zipcode | Phone Number | | Organization | | | | + + + + + | [facility] | [address] | [place] [address] | [phone] | + + + + + XR [...] Procedure Note | + + | Juan, [id number] - 12/23/2019 10:03 AM PDT | | [...] + + + | BB BAND | [id number] | | [facility] | | | | | | LABORATORY | | + + + + + + | UNIT # | [id number] | | [facility] | | | | [...] + + + | UNIT # | [id number] | | [facility] | | | | [...] + + + | UNIT # | [id number] | | [facility] | | | | [...] + + + | UNIT # | [id number] | | [facility] | | | | [...] + | CROSSMATCH | COMPATIBLETesting | | [facility] | | | RESULT | performed at [facility];888 | | LABORATORY | | | | [address];[place], [place] | | | | | | [address] | | | | + + + + + + + + | Specimen | + + | Blood | + + + + + + + | Performing | Address | City/State/Zipcode | Phone Number | | Organization | | | | + + + + + | [facility] | [address] | [place] [address] | [phone] | + + + + + Protime [...] | | | | | performed at [facility] | | | | | | [address];[place], [place] | | | | | | [address] | | | | + + + + + + + + | Specimen | + + | Blood | + + + + + + + | Performing | Address | City/State/Zipcode | Phone Number | | Organization | | | | + + + + + | [facility] | [address] | [place] [address] | [phone] | + + + + + Basic [...] | >60Comment: GFR <60: | >60 | [facility] | | | GFR | CHRONIC [...] | | | | | | MDRD [facility] traceable | | | | | | equation.Testing | | | | | | performed at [facility] | | | | | | [facility];[place], [place] | | | | | | [address] | | | | + + + + + + + + | Specimen | + + | Blood | + + + + + + + | Performing | Address | City/State/Zipcode | Phone Number | | Organization | | | | + + + + + | [facility] | [address] | [place] [address] | [phone] | + + + + + CBC [...] 0.02Comment: Testing | 0.00 - 0.10 | [facility] | | | Absolute | performed at [facility];888 | K/uL | LABORATORY | | | | [address]it [address];[place], [place] | | | | | | [address] | | | | + + + + + + + + | Specimen | + + | Blood | + + + + + + + | Performing | Address | City/State/Zipcode | Phone Number | | Organization | | | | + + + + + | [facility] | [address] | [place] [address] | [phone] | + + + + + XR [...] Procedure Note | + + | Juan, [id number] - 12/22/2019 6:25 PM PDT | | [...] | | | | | performed at [facility], [address] | | | | | | [facility], | | | | | | [place] [address] | | | | + + + + + + + + | Specimen | + + | Blood | + + + + + + + | Performing | Address | City/State/Zipcode | Phone Number | | Organization | | | | + + + + + | [facility] | [address] | [place] [address] | [phone] | + + + + + CBC [...] at | | | | | | [facility], [address] [facility] | | | | | | [place] | | | | | | [address] | | | | + + + + + + + + | Specimen | + + | Blood | + + + + + + + | Performing | Address | City/State/Zipcode | Phone Number | | Organization | | | | + + + + + | [facility] | [address] | [place] [address] | [phone] | + + + + + Basic [...] 50 (L)Comment: GFR <60: | >60 | [facility] | | | GFR | CHRONIC [...] | | | | | | MDRD [facility] traceable | | | | | | equation.Testing | | | | | | performed at [facility], [address] | | | | | | [facility], | | | | | | [place] [address] | | | | + + + + + + + + | Specimen | + + | Blood | + + + + + + + | Performing | Address | City/State/Zipcode | Phone Number | | Organization | | | | + + + + + | [facility] | [address] | [place] [address] | [phone] | + + + + + CBC [...] | | | | | performed at [facility], [address] | | | | | [address], | | | | | | [place] [address] | | | | + + + + + + + + | Specimen | + + | Blood | + + + + + + + | Performing | Address | City/State/Zipcode | Phone Number | | Organization | | | | + + + + + | [facility] | [address] | [place] [address] | [phone] | + + + + + CT [...] Procedure Note | + + | Juan, [id number] - 12/20/2019 2:58 PM PDT | | [...] | | | POC | performed at [facility];[address] | | LABORATORY | | | | [address];[place], [place] | | | | | | [address] | | | | + + + + + + + + | Specimen | + + | | + + + + + + + | Performing | Address | City/State/Zipcode | Phone Number | | Organization | | | | + + + + + | [facility] | [address] | [place] [address] | [phone] | + + + + + ECG [...] | | | | JEET TEJEDA MD ([id number]) | | | | | | on [...] | | | Absolute | performed at [facility] | K/uL | LABORATORY | | | | [address];[place] | | | | | | [address] | | | | + + + + + + + + | Specimen | + + | Blood | + + + + + + + | Performing | Address | City/State/Zipcode | Phone Number | | Organization | | | | + + + + + | [facility] | [address] | [place] [address] | [phone] | + + + + + Basic [...] 8.4 (L) | 8.5 - 10.5 | [facility] | | | | | mg/dL | LABORATORY | | + + + + + + | Estimated | >60Comment: GFR <60: | >60 | [facility] | | | GFR | CHRONIC [...] | | | | | performed at [facility];88 | | | | | | [facility];[place], [place] | | | | | | [address] | | | | + + + + + + + + | Specimen | + + | Blood | + + + + + + + | Performing | Address | City/State/Zipcode | Phone Number | | Organization | | | | + + + + + | [facility] | [address] | [place] [address] | [phone] | + + + + + CV [...] | | Procedures Performed Left heart catheterization (33792.26) with | | | selective bilateral coronary angiography, left ventricular angiograpy. | | | Procedure Summary Access site: right radial artery | | | Anticoagulation: heparin Antiplatelet therapy: aspirin 81 mg | | | Closure: Radial band/closure device Clinical IndicationsThijustine is a 69 | | | y.o. year old male transferred to [facility] from [facility] in | | | [place] due to mitral endocarditis, blood cultures positive [...] (ASD), measuring only 2.5 mm, with minimal owyn-ld-fskqn | | | shunting. There is no evidence of lgwim-ky-wnwk shunting on the | | | intravenous bubble contrast study. | | |gemxy-ue-udts shunting on the intravenous bubble contrast study. [...] Testing | 0.7 - 1.5 ng/dL | [facility] | | | | performed at [facility] | | LABORATORY | | | | [address];[place] | | | | | | [address] | | | | + + + + + + + + | Specimen | + + | Blood | + + + + + + + | Performing | Address | City/State/Zipcode | Phone Number | | Organization | | | | + + + + + | [facility] | [address] | [place] [address] | [phone] | + + + + + Seble Granados (12/19/2019 9:37 AM PDT) + + + + + + | Component | Value | Ref Range | Performed | Pathologist | | | | | At | Signature | + + + + + + | GENTAMICIN | 0.6Comment: Testing | <2.0 ug/mL | [facility] | | | TROUGH | performed at [facility];[address] | | LABORATORY | | | | [address];[place] | | | | | | [address] | | | | + + + + + + + + | Specimen | + + | Blood | + + + + + + + | Performing | Address | City/State/Zipcode | Phone Number | | Organization | | | | + + + + + | [facility] | [address] | [place] [address] | [phone] | + + + + + CBC [...] | | | Absolute | performed at [facility];[address] | K/uL | LABORATORY | | | | [facility] | | | | | | [address] | | | | + + + + + + + + | Specimen | + + | Blood | + + + + + + + | Performing | Address | City/State/Zipcode | Phone Number | | Organization | | | | + + + + + | [facility] | [address] | [place] [address] | [phone] | + + + + + Basic [...] | | | | | performed at [facility];[address] | | | | | | [address] [facility];[place], [place] | | | | | | [address] | | | | + + + + + + + + | Specimen | + + | Blood | + + + + + + + | Performing | Address | City/State/Zipcode | Phone Number | | Organization | | | | + + + + + | [facility] | [address] | [place] [address] | [phone] | + + + + + MRI [...] 2. 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 [...] 2. 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 SET ILLUSTRATOR territory including a 1.1 x | | [...] Testing | 30 - 400 ng/mL | [facility] | | | | performed at [facility], | | LABORATORY | | | | [address], [address], | | | | | | [facility] [address] | | | | + + + + + + + + | Specimen | + + | Blood | + + + + + + + | Performing | Address | City/State/Zipcode | Phone Number | | Organization | | | | + + + + + | [facility] | [address] | [place] [address] | [phone] | + + + + + Iron [...] | LABORATORY | | | | [address], | | | | | | [place] [address] | | | | + + + + + + + + | Specimen | + + | Blood | + + + + + + + | Performing | Address | City/State/Zipcode | Phone Number | | Organization | | | | + + + + + | [facility] | [address] | [place] [address] | [phone] | + + + + + Haptoglobin (12/18/2019 5:52 PM PDT) + + + + + + | Component | Value | Ref Range | Performed | Pathologist | | | | | At | Signature | + + + + + + | Haptoglobin | 281Comment: Testing | 34 - 355 mg/dL | [facility] | | | | performed at [facility], | | LABORATORY | | | | [address], [address], | | | | | | [place] [address] | | | | + + + + + + + + | Specimen | + + | Blood | + + + + + + + | Performing | Address | City/State/Zipcode | Phone Number | | Organization | | | | + + + + + | [facility] | [address] | [place] [address] | [phone] | + + + + + Hemoglobin [...] [facility] | | | | performed at [facility];[address] | | LABORATORY | | | | [address];[place], [place] | | | | | | [address] | | | | + + + + + + + + | Specimen | + + | Blood | + + + + + + + | Performing | Address | City/State/Zipcode | Phone Number | | Organization | | | | + + + + + | [facility] | [address] | [place] [address] | [phone] | + + + + + Fecal Hemoglobin (12/18/2019 5:30 PM PDT) + + + + + + | Component | Value | Ref Range | Performed | Pathologist | | | | | At | Signature | + + + + + + | FECAL | NEGATIVEComment: Testing | NEG | [facility] | | | OCCULT BLD | performed at [facility];888 | | LABORATORY | | | | [address];[place] | | | | | | [address] | | | | + + + + + + + + | Specimen | + + | | + + + + + + + | Performing | Address | City/State/Zipcode | Phone Number | | Organization | | | | + + + + + | [facility] | [address] | [place] [address] | [phone] | + + + + + CT [...] Procedure Note | + + | Juan, [id number] - 12/18/2019 6:01 PM PDT | | [...] | LABORATORY | | | | MD Brani, Pathologist | | | | | | [facility]- | | | | | | [id number] | | | | | | [facility] | | | | | | [facility] | | | | | | [place] [address] | | | | + + + [...] | | | | | | reported [facility] | | | | | | [address], | | | | | | [place].Testing performed at | | | | | | [facility], [address], | | | | | | [address], [facility] | | | | | | [address] | | | | + + + + + + + + | Specimen | + + | | + + + + + + + | Performing | Address | City/State/Zipcode | Phone Number | | Organization | | | | + + + + + | [facility] | [address] | [place] [address] | [phone] | + + + + + TSH, Reflex Free T4 (12/18/2019 11:52 AM PDT) + + + + + + | Component | Value | Ref Range | Performed | Pathologist | | | | | At | Signature | + + + + + + | TSH | 1.380Comment: Testing | 0.450 - 5.100 | [facility] | | | | performed at [facility]888 | uIU/mL | LABORATORY | | | | [address];[place], [place] | | | | | | [address] | | | | + + + + + + + + | Specimen | + + | Blood | + + + + + + + | Performing | Address | City/State/Zipcode | Phone Number | | Organization | | | | + + + + + | [facility] | [address] | [place] [address] | [phone] | + + + + + Retic Count (12/18/2019 11:52 AM PDT) + + + + + + | Component | Value | Ref Range | Performed | Pathologist | | | | | At | Signature | + + + + + + | % | 4.7 (H)Comment: Testing | 0.4 - 2.7 % | [facility] | | | Reticulocyt | performed at [facility], [address] | | LABORATORY | | | e Count | [address], | | | | | | [place] [address] | | | | + + + + + + + + | Specimen | + + | Blood | + + + + + + + | Performing | Address | City/State/Zipcode | Phone Number | | Organization | | | | + + + + + | [facility] | [address] | [place] [address] | [phone] | + + + + + Lactate Dehydrogenase (12/18/2019 11:52 AM PDT) + + + + + + | Component | Value | Ref Range | Performed | Pathologist | | | | | At | Signature | + + + + + + | LDH TOTAL | 244Comment: Testing | 120 - 246 U/L | [facility] | | | | performed at [facility];[address] | | LABORATORY | | | | [address];[place], [place] | | | | | | [address] | | | | + + + + + + + + | Specimen | + + | Blood | + + + + + + + | Performing | Address | City/State/Zipcode | Phone Number | | Organization | | | | + + + + + | [facility] | [address] | [place] [address] | [phone] | + + + + + Red [...] BANK | Testing performed at | | [facility] | | | COMMENT | [facility] | | LABORATORY | | | | [address];[place] [address] | | | | + + + + + + + + | Specimen | + + | | + + + + + + + | Performing | Address | City/State/Zipcode | Phone Number | | Organization | | | | + + + + + | [facility] | [address] | [place] [address] | [phone] | + + + + + Red [...] BANK | Testing performed at | | [facility] | | | COMMENT | [facility] | | LABORATORY | | | | [address];[place] [address] | | | | + + + + + + + + | Specimen | + + | | + + + + + + + | Performing | Address | City/State/Zipcode | Phone Number | | Organization | | | | + + + + + | [facility] | [address] | [place] [address] | [phone] | + + + + + Type [...] + + + | BB BAND | [id number] | | [facility] | | | | | | LABORATORY | | + + + + + + | UNIT # | [id number] | | [facility] | | | | [...] + + + | UNIT # | [id number] | | [facility] | | | | [...] + + + | UNIT # | [id number] | | [facility] | | | | [...] | | | RESULT | performed at [facility] | | LABORATORY | | | | [address];[place], [place] | | | | | | [address] | | | | + + + + + + + + | Specimen | + + | Blood | + + + + + + + | Performing | Address | City/State/Zipcode | Phone Number | | Organization | | | | + + + + + | [facility] | [address] | [place] [address] | [phone] | + + + + + Protime INR (12/18/2019 5:54 AM PDT) + + + + + + | Component | Value | Ref Range | Performed | Pathologist | | | | | At | Signature | + + + + + + | INR | 1.0Comment: REFERENCE | | [facility] | | | | RANGE:0.9 - [...] | | | | | performed at [facility];[address] | | | | | | [facility];[place] | | | | | | [address] | | | | + + + + + + + + | Specimen | + + | Blood | + + + + + + + | Performing | Address | City/State/Zipcode | Phone Number | | Organization | | | | + + + + + | [facility] | [address] | [place] [address] | [phone] | + + + + + CBC [...] | | READ BACK BY: JIMMY | katty/dL | LABORATORY | | | | D./[id number] VL | | | | | | [...] LABORATORY | | | | performed at [facility], [address] | | | | | [address] [facility], | | | | | | [place] [address] | | | | + + + + + + + + | Specimen | + + | Blood | + + + + + + + | Performing | Address | City/State/Zipcode | Phone Number | | Organization | | | | + + + + + | [facility] | [address] | [place] [address] | [phone] | + + + + + Basic [...] | >60Comment: GFR <60: | >60 | [facility] | | | GFR | CHRONIC [...] | | | | | | MDRD IDNH traceable | | | | | | equation.Testing | | | | | | performed at [facility], [address] | | | | | | [facility], | | | | | | [place] [address] | | | | + + + + + + + + | Specimen | + + | Blood | + + + + + + + | Performing | Address | City/State/Zipcode | Phone Number | | Organization | | | | + + + + + | [facility] | [address] | [place] [address] | [phone] | + + + + + Vancomycin Level (12/18/2019 5:54 AM PDT) + + + + + + | Component | Value | Ref Range | Performed | Pathologist | | | | | At | Signature | + + + + + + | Vancomycin | 11.1Comment: Testing | ug/mL | [facility] | | | Random, | performed at [facility] [place] | | LABORATORY | | | Serum [address];[place], [place] | | | | | | [address] | | | | + + + + + + + + | Specimen | + + | Blood | + + + + + + + | Performing | Address | City/State/Zipcode | Phone Number | | Organization | | | | + + + + + | [facility] | [address] | [place] [address] | [phone] | + + + + + CBC [...] | | | Absolute | [place] [facility] [place] | LABORATORY | | | | [address];[place], [place] | | | | | | [address] | | | | + + + + + + + + | Specimen | + + | Blood | + + + + + + + | Performing | Address | City/State/Zipcode | Phone Number | | Organization | | | | + + + + + | [facility] | [address] | [place] [address] | [phone] | + + + + + XR [...] Procedure Note | + + | Juan, [id number] - 12/17/2019 4:34 PM PDT | | [...] | >60Comment: GFR <60: | >60 | [facility] | | | GFR | CHRONIC [...] | | | | | | MDRD [facility] traceable | | | | | | equation.Testing | | | | | | performed at [facility], [address] | | | | | | [facility], | | | | | | [place] [address] | | | | + + + + + + + + | Specimen | + + | Blood | + + + + + + + | Performing | Address | City/State/Zipcode | Phone Number | | Organization | | | | + + + + + | [facility] | [address] | [place] [address] | [phone] | + + + + + Coronavirus (COVID-19) NAAT (12/16/2019 11:14 PM PDT) + + + + + + | Component | Value | Ref Range | Performed | Pathologist | | | | | At | Signature | + + + + + + | SARS-CoV-2, | NEGATIVEComment: This | NEG | [facility] | | | NAAT | test [...] | | | | | performed at [facility] [place] | | | | | | [address];[place], [place] | | | | | | [address] | | | | + + + + + + + + | Specimen | + + | | + + + + + + + | Performing | Address | City/State/Zipcode | Phone Number | | Organization | | | | + + + + + | [facility] | [address] | [place] [address] | [phone] | + + + + + Culture, [...] [facility] | | | Requests | [facility] | LABORATORY | | | | [address];[place] [address] | | | | + + + + + + | RESULT | NO GROWTH 6 DAYS | | [facility] | | | | | | LABORATORY | | + + + + + + | RESULT | Testing performed at | | [facility] | | | | [facility], [address] [facility] | | LABORATORY | | | | [address], [place], [place] | | | | | | [address]Amafkln: Testing | | | | | | performed at [facility], [address] | [address] | [address], [place], [place] | | | | | | [address] | | | | + + + + + + + + | Specimen | + + | Blood - Peripheral | | blood specimen | | (specimen) | + + + + + + + | Performing | Address | City/State/Zipcode | Phone Number | | Organization | | | | + + + + + | [facility] | [address] | [place] [address] | [phone] | + + + + + Culture, [...] | [facility] | | | Requests | [facility] [place] | | LABORATORY | | | | [address];[place] [address] | | | | + + + + + + | RESULT | NO GROWTH 6 DAYS | | [facility] | | | | | | LABORATORY | | + + + + + + | RESULT | Testing performed at | | [facility] | | | | [facility], [address] | | LABORATORY | | | | [place], [place] | | | | | | [address]Eajnjfj: Testing | | | | | | performed at [facility], [address] | | | | | | [place], [place] | | | | | | [address] | | | | + + + + + + + + | Specimen | + + | Blood - Peripheral | | blood specimen | | (specimen) | + + + + + + + | Performing | Address | City/State/Zipcode | Phone Number | | Organization | | | | + + + + + | [facility] | [address] | [place] [address] | [phone] | + + + + + documented in this encounter Visit Diagnoses + + | Diagnosis | + + | Status post mitral valve replacement - Primary Heart valve replaced by other means | + + | Acute bacterial endocarditis Acute and subacute bacterial endocarditis | + + | Diet-controlled diabetes mellitus (HCC) | + + | Subacute bacterial endocarditis | + + | Endocarditis of mitral valve | + + | Gram positive bacterial infection Infection due to other specified bacteria in | | conditions classified elsewhere and of unspecified site | + + | Infarction of spleen | + + | Weight loss Loss of weight | + + | Poor dentition Unspecified disorder of the teeth and supporting structures | + + | Severe mitral regurgitation Mitral valve disorders | + + | Severe protein-calorie malnutrition (HCC) Other severe protein-calorie malnutrition | + + | 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) | + + | Viridans streptococci infection Other streptococcus infection in conditions | | classified elsewhere and of unspecified site | + + | Splenic infarct Other diseases of spleen | + + | Mitral valve replaced Heart valve replaced by other means | + + | S/P MVR (mitral valve repair) Other postprocedural status | + + | S/P MVR (mitral valve replacement) Heart valve replaced by other means | + + | First degree AV block First degree atrioventricular block | + + | ASD (atrial septal defect) Ostium secundum type atrial septal defect | + + | Septic embolism (HCC) Septic pulmonary embolism | + + | Bacterial endocarditis, unspecified chronicity | + + | Streptococcal bacteremia Bacteremia | + + | Infectious endocarditis Acute and subacute bacterial endocarditis | + + | DUNIA (acute kidney injury) (HCC) Acute kidney failure, unspecified | + + documented in this encounter [...] +---+---+ +---+---+ | | | +---+---+ + +---------+ +------+-------+---+ | albumin 5% IVPB 25 g 25 g, | New Bag | 12/24/19 | 25 g | 500 | | | Intravenous, Administer over 1 | | 20 4:49 | | mL/hr | | | Hours, PRN, see PRN parameter, | | PM PDT | | | | | Starting 12/24/19 at 1309, For | | | | | | | 3 doses, Give PRN SBP Less than: | | | | | | | 90, Post-op/Phase II, | | | | | | | Indications: Cardiac Surgery | | | | | | + +---------+ +------+-------+---+ +---------+ +------+-------+---+ | New Bag | 12/24/19 | 25 g | 500 | | | | 20 2:51 | | mL/hr | | | | PM PDT | | | | +---------+ +------+-------+---+ +---+---+ | | | +---+---+ + +-------+ [...] | | +---+---+ + +-------+ +-------+---+---+ | aspirin chewable tablet 81 mg | Given | 12/24/19 | 81 mg | | | | 81 mg, Oral, DAILY, First dose on | | 20 2:37 | | | | | 12/24/19 at 1400, Initiated | | PM PDT | | | | | within 6 hours of arrival in the | | | | | | | intensive care unit if aspirin | | | | | | | was not administered | | | | | | | preoperatively. If unable to take | | | | | | | po tablet - may give rectal | | | | | | | aspirin, if ordered., | | | | | | | Post-op/Phase II | | | | | | + +-------+ +-------+---+---+ +---+---+ | | | +---+---+ + +-------+ +-------+---+---+ | aspirin EC tablet 81 mg 81 mg, | Given | 12/20/19 | 81 mg | | | | Oral, DAILY, First dose on Sun | | 20 8:05 | | | | | 12/17/19 at 0900 | | AM PDT | | | | + +-------+ +-------+---+---+ +-------+ +-------+---+---+ | Given | 12/19/19 | 81 mg | | | | | 20 8:18 | | | | | | AM PDT | | | | +-------+ +-------+---+---+ | Given | 12/18/19 | 81 mg | | | | | 20 9:02 | | | | | | AM PDT | | | | +-------+ +-------+---+---+ +---+---+ | | | +---+---+ + +-------+ +-------+---+---+ | atorvaSTATin (LIPITOR) tablet | Given | 12/23/19 | 40 mg | | | | 40 mg 40 mg, Oral, NIGHTLY, | | 20 9:18 | | | | | First dose (after last | | PM PDT | | | | | modification) on 12/20/19 at | | | | | | | 2100 | | | | | | + +-------+ +-------+---+---+ +-------+ +-------+---+---+ | Given | 12/22/19 | 40 mg | | | | | 20 8:14 | | | | | | PM PDT | | | | +-------+ +-------+---+---+ | Given | 12/21/19 | 40 mg | | | | | 20 8:09 | | | | | | PM [...] | atorvaSTATin (LIPITOR) tablet | Given | 12/19/19 | 80 mg | | | | 80 mg 80 mg, Oral, NIGHTLY, | | 20 9:02 | | | | | First dose on Sun12/17/19 at 2100 | | PM PDT | | | | + +-------+ +-------+---+---+ +-------+ +-------+---+---+ | Given | 12/18/19 | 80 mg | | | | | 20 9:15 | | | | | | PM PDT | | | | +-------+ +-------+---+---+ | Given | 12/17/19 | 80 mg | | | | | 20 7:48 | | | | | | PM PDT | | | | +-------+ +-------+---+---+ +---+---+ | | | +---+---+ + +---------+ +---+-------+---+ | balanced electrolytes in water | New Bag | 12/20/19 | | 100 | | | (PLASMALYTE-148/NORMOSOL-R) | | 20 12:52 | | mL/hr | | | infusion at 100 mL/hr, | | PM PDT | | | | | Intravenous, CONTINUOUS, Starting | | | | | | | 12/20/19 at 0915, Pre-op | | | | | | + +---------+ +---+-------+---+ + + +---+---+---+ | Continued by Anesthesia | 12/20/19 | | | | | | 20 9:11 | | | | | | AM PDT | | | | + + +---+---+---+ | New Bag | 12/20/19 | | | | | | 20 9:09 | | | | | | AM PDT | | | | + + +---+---+---+ +---+---+ | | | +---+---+ + +---------+ +---+-------+---+ | balanced electrolytes in water | New Bag | 12/24/19 | | 100 | | | (PLASMALYTE-148/NORMOSOL-R) | | 20 7:37 | | mL/hr | | | infusion at 100 mL/hr, | | AM PDT | | | | | Intravenous, CONTINUOUS, Starting | | | | | | | 12/24/19 at 0800, | | | | | | | Recovery/Phase I | | | | | | + +---------+ +---+-------+---+ +---+---+ | | | +---+---+ + +---------+ +-----+-------+---+ | cefTRIAXone (ROCEPHIN) IVPB 2 g | New Bag | 12/23/19 | 2 g | 100 | | | 2 g, Intravenous, Administer | | 20 9:20 | | mL/hr | | | over 30 Minutes, EVERY 12 HOURS | | PM PDT | | | | | INTERVAL, First dose (after last | | | | | | | modification) on 12/20/19 at | | | | | | | 2130, Keep in refrigerator., | | | | | | | Indications: Endocarditis | | | | | | + +---------+ +-----+-------+---+ +---------+ +-----+-------+---+ | New Bag | 12/23/19 | 2 g | 100 | | | | 20 8:32 | | mL/hr | | | | AM PDT | | | | +---------+ +-----+-------+---+ | New Bag | 12/22/19 | 2 g | 100 | | | | 20 8:14 | | mL/hr | | | | PM PDT | | | | +---------+ +-----+-------+---+ +---+---+ | | | +---+---+ + +---------+ [...] PDT | | | | +---------+ +-----+-------+---+ +---+---+ | | | +---+---+ + +-------+ +--------+---+---+ | chlorhexidine (PERIDEX) 0.12% | Given | 12/25/19 | 15 mLs | | | | solution 15 mL 15 mL, | | 20 8:56 | | | | | Mouth/Throat, 2 TIMES DAILY, | | PM PDT | | | | | First dose on [place] 12/25/19 at | | | | | | | 1045, Swab mouth while intubated, | | | | | | | | | | | | | + +-------+ +--------+---+---+ +-------+ +--------+---+---+ | Given | 12/25/19 | 15 mLs | | | | | 20 11:21 | | | | | | AM PDT | | | | +-------+ +--------+---+---+ +---+---+ | | | +---+---+ + + + + +-------+---+ | dexmedetomidine in saline | Rate/Dos | 12/26/19 | 0.8 | 12.6 | | | (PRECEDEX) 4 mcg/mL infusion | e Verify | 20 4:00 | mcg/kg/h | mL/hr | | | 0-1.5 mcg/kg/hr | | AM PDT | r | | | | 63 kg (0-23.625 mL/hr, rounded | | | | | | | to 0-23.6 mL/hr), at 0-23.6 | | | | | | | mL/hr, Intravenous, CONTINUOUS, | | | | | | | Starting 8/12/20 at 1330, Use | | | | | | | intra-op during cardiac | | | | | | | surgery., Titration Instruction: | | | | | | | Do not titrate | | | | | | + + + + +-------+---+ + + + +-------+---+ | New Bag | 12/26/19 | 0.8 | 12.6 | | | | 20 3:31 | mcg/kg/h | mL/hr | | | | AM PDT | r | | | + + + +-------+---+ | Rate/Dose Verify | 12/26/19 | 0.8 | 12.6 | | | | 20 12:00 | mcg/kg/h | mL/hr | | | | AM PDT | r | | | + + + +-------+---+ + +---+ | | | + +---+ [...] +---+ | | | + +---+ + +---------+ +---+ +---+ | dextrose 5% and sodium chloride | New Bag | 12/25/19 | | 50 mL/hr | | | 0.45% (D5 1/2 NS) infusion at | | 20 9:49 | | | | | 50 mL/hr, Intravenous, | | AM PDT | | | | | CONTINUOUS, Starting 12/24/19 | | | | | | | at 1445 | | | | | | + +---------+ +---+ +---+ +---------+ +---+ +---+ | New Bag | 12/24/19 | | 50 mL/hr | | | | 20 2:25 | | | | | | PM PDT | | | | +---------+ +---+ +---+ + +---+ | | | + +---+ [...] | + +---+ + +-------+ +--------+---+---+ | dilTIAZem (CARDIZEM CD) 24 hr | Given | 12/22/19 | 120 mg | | | | capsule 120 mg 120 mg, Oral, | | 20 8:28 | | | | | DAILY, First dose on Sun12/16/19 | | AM PDT | | | | | at 1915 | | | | | | + +-------+ +--------+---+---+ +-------+ +--------+---+---+ | Given | 12/21/19 | 120 mg | | | | | 20 8:42 | | | | | | AM PDT | | | | +-------+ +--------+---+---+ | Given | 12/20/19 | 120 mg | | | | | 20 8:05 | | | | | | AM PDT | | | | +-------+ +--------+---+---+ +---+---+ | | | +---+---+ + +-------+ +--------+---+---+ | docusate sodium (COLACE) 50 | Given | 12/26/19 | 100 mg | | | | mg/5 mL liquid 100 mg 100 mg, | | 20 9:29 | | | | | Oral, 2 TIMES DAILY, First dose | | AM PDT | | | | | on [facility] 12/25/19 at 1045 | | | | | | + +-------+ +--------+---+---+ +-------+ +--------+---+---+ | Given | 12/25/19 | 100 mg | | | | | 20 8:57 | | | | | | PM PDT | | | | +-------+ +--------+---+---+ | Given | 12/25/19 | 100 mg | | | | | 20 11:21 | | | | | | AM PDT | | | | +-------+ +--------+---+---+ +---+---+ | | | +---+---+ + + + +---------+---------+---+ | EPINEPHrine 20 mcg/mL in sodium | Continue | 12/24/19 | 1 | 3 mL/hr | | | chloride 0.9% 500 mL infusion | d Bag | 20 1:52 | mcg/min | | | | 1-10 mcg/min (3-30 mL/hr), at | | PM PDT | | | | | 3-30 mL/hr, Intravenous, | | | | | | | TITRATED, Starting 12/24/19 at | | | | | | | 1330, Titration Instruction: See | | | | | | | below, Goal: MAP 65 and greater, | | | | | | | SBP greater than 90, Initial | | | | | | | dose: 1 mcg/min, Increase rate | | | | | | | by: 1 mcg/min every 5 minutes., | | | | | | | Decrease rate by: 1 mcg/min every | | | | | | | 5 minutes., *: Titrate drug per | | | | | | | order as tolerated. Titration may | | | | | | | vary based on the patient | | | | | | | | | | | | | | s critical condition., | | | | | | | Post-op/Phase II | | | | | | + + + +---------+---------+---+ +---+---+ | | | +---+---+ + +-------+ +-------+---+---+ | famotidine (PEPCID) tablet 20 | Given | 12/26/19 | 20 mg | | | | mg 20 mg, Oral, DAILY, First | | 20 9:30 | | | | | dose on [place] 12/25/19 at 0900, Dose | | AM PDT | | | | | adjustment per renal dosing | | | | | | | protocol., Post-op/Phase II | | | | | | + +-------+ +-------+---+---+ +---+---+ | | | +---+---+ + +---------+ +-------+-------+---+ | famotidine in saline (PEPCID) | New Bag | 12/25/19 | 20 mg | 100 | | | IVPB 20 mg 20 mg, Intravenous, | | 20 8:24 | | mL/hr | | | Administer over 30 Minutes, | | AM PDT | | | | | DAILY, First dose on [place] 12/25/19 | | | | | | | at 0900, While NPO Dose | | | | | | | adjustment per renal dosing | | | | | | | protocol, Post-op/Phase II | | | | | | + +---------+ +-------+-------+---+ +---+---+ | | | +---+---+ + +-------+ +--------+---+---+ | ferrous sulfate tablet [...] +---+ | | | + +---+ | furosemide (LASIX) 10 mg/mL | | | injection Starting 12/26/19 | | | at 1347, For 1 dose, Still, | | | Emaline: antione montez, | | + +---+ | | | + +---+ + +-------+ +-------+---+---+ | furosemide (LASIX) injection 20 | Given | 12/22/19 | 20 mg | | | | mg 20 mg, Intravenous, ONCE, | | 20 6:48 | | | | | 12/22/19 at 1900, For 1 dose | | PM PDT | | | | + +-------+ +-------+---+---+ +---+---+ | | | +---+---+ + +-------+ +-------+---+---+ | furosemide (LASIX) injection 20 | Given | 12/26/19 | 20 mg | | | | mg 20 mg, Intravenous, ONCE, | | 20 8:44 | | | | | 12/26/19 at 0845, For 1 dose | | AM PDT | | | | + +-------+ +-------+---+---+ +---+---+ | | | +---+---+ + +-------+ +-------+---+---+ | furosemide (LASIX) injection 20 | Given | 12/26/19 | 20 mg | | | | mg 20 mg, Intravenous, ONCE, | | 20 2:00 | | | | | 12/26/19 at 1400, For 1 dose | | PM PDT | | | | + +-------+ +-------+---+---+ +---+---+ | | | +---+---+ + +-------+ +-------+---+---+ | furosemide (LASIX) injection 20 | Given | 12/27/19 | 20 mg | | | | mg 20 mg, Intravenous, ONCE, | | 20 9:46 | | | | | 12/27/19 at 0845, For 1 dose | | AM PDT | | | [...] | | +---+---+ + +-------+ +-------+---+---+ | gadobutrol (GADAVIST) injection | Given | 12/18/19 | 5 mLs | | | | 5 mL 5 mL, Intravenous, ONCE | | 20 7:33 | | | | | PRN, Other, Starting [facility] 12/18/19 | | PM PDT | | | | | at 1917, For 1 dose, MRI | | | | | | + +-------+ +-------+---+---+ + +---+ | | | + +---+ | gadobutrol (GADAVIST) injection | | | 6 mL 6 mL, Intravenous, ONCE | | | PRN, Other, Starting [place] 12/28/19 | | | at 2140, For 1 dose, MRI | | + +---+ | | | + +---+ + +---------+ +-------+-------+---+ | gentamicin 60 mg in sodium | New Bag | 12/16/19 | 60 mg | 103 | | | chloride 0.9% 50 mL IVPB 60 mg, | | 20 11:57 | | mL/hr | | | Intravenous, Administer over 30 | | PM PDT | | | | | Minutes, ONCE, Sun12/16/19 at | | | | | | | 2115, For 1 dose, Indications: | | | | | | | Endocarditis, synergy | | | | | | + +---------+ +-------+-------+---+ +---+---+ | | | +---+---+ + +---------+ +-------+-------+---+ | gentamicin 60 mg in sodium | New Bag | 12/19/19 | 60 mg | 103 | | | chloride 0.9% 50 mL IVPB 60 mg, | | 20 10:12 | | mL/hr | | | Intravenous, Administer over 30 | | AM PDT | | | | | Minutes, EVERY 12 HOURS INTERVAL, | | | | | | | First dose on Sun12/17/19 at | | | | | | | 1000, Indications: Endocarditis | | | | | | + +---------+ +-------+-------+---+ +---------+ +-------+-------+---+ | New Bag | 12/18/19 | 60 mg | 103 | | | | 20 9:57 | | mL/hr | | | | PM PDT | | | | +---------+ +-------+-------+---+ | New Bag | 12/18/19 | 60 mg | 103 | | | | 20 10:33 | | mL/hr | | | | AM PDT | | | | +---------+ +-------+-------+---+ +---+---+ | | | +---+---+ + +-------+ +--------+---+ + | heparin 5,000 units/mL | Given | 12/23/19 | 5,000 | | Abdomen- | | injection 5,000 Units 5,000 | | 20 8:22 | Units | | RLQ | | Units, Subcutaneous, EVERY 12 | | AM PDT | | | | | HOURS, First dose on Sun12/16/19 | | | | | | | at 2100 | | | | | | + +-------+ +--------+---+ + +-------+ +--------+---+ + | Given | 12/22/19 | 5,000 | | Abdomen- | | | 20 8:14 | Units | | RUQ | | | PM PDT | | | | +-------+ +--------+---+ + | Given | 12/22/19 | 5,000 | | Abdomen- | | | 20 8:28 | Units | | RUQ | | | AM PDT | | [...] | | | | | | | [id number] Use NIGHT DOSE for | | | | | | | doses scheduled: HS, | | | | | | | Nighttime [id number] If the BG is | | | [...] + +---+---+ | | | +---+---+ + + + + +-------+---+ | insulin regular (humuLIN R, | Rate/Dos | 12/25/19 | 0.8 | 0.8 | | | novoLIN R) 1 Units/mL in sodium | e Change | 20 2:36 | Units/hr | mL/hr | | | chloride 0.9% 100 mL infusion | | PM PDT | | | | | (Open Heart Protocol) 0-140.8 | | | | | | | Units/hr (0-140.8 mL/hr), at | | | | | | | 0-140.8 mL/hr, Intravenous, | | | | | | | TITRATED, Starting 12/24/19 at | | | | | | | 1330, See link for Heart | | | | | | | Columnar Insulin Infusion (on | | | | | | | MAR) and Heart surgery insulin | | | | | | | infusion management order for | | | | | | | administration instructions., | | | | | | | Post-op/Phase II | | | | | | + + + + +-------+---+ + + + +---------+---+ | Rate/Dose Verify | 12/25/19 | 1 | 1 mL/hr | | | | 20 12:32 | Units/hr | | | | | PM PDT | | | | + + + +---------+---+ | Rate/Dose Change | 12/25/19 | 1 | 1 mL/hr | | | | 20 10:40 | Units/hr | | | | | AM PDT | | | | + + + +---------+---+ +---+---+ | | | +---+---+ + +-------+ +---------+---+---+ | iohexol (OMNIPAQUE 350) 350 | Given | 12/20/19 | 100 mLs | | | | mg/mL injection 100 mL 100 mL, | | 20 2:30 | | | | | Intravenous, ONCE PRN, Other, | | PM PDT | | | | | Starting 12/20/19 at 1416, For | | | | | | | 1 dose, Cat Scanner | | | | | | + +-------+ +---------+---+---+ +---+---+ | | | +---+---+ + +---------+ +---+-------+---+ | lactated ringers (LR) infusion | New Bag | 12/22/19 | | 100 | | | at 100 mL/hr, Intravenous, | | 20 4:08 | | mL/hr | | | CONTINUOUS, Starting 12/21/19 | | PM PDT | | | | | at 0800 | | | | | | + +---------+ +---+-------+---+ +---------+ +---+-------+---+ | New Bag | 12/21/19 | | 100 | | | | 20 8:52 | | mL/hr | | | | AM PDT | | | | +---------+ +---+-------+---+ +---+---+ | | | +---+---+ + +---------+ + +-------+---+ | levETIRAcetam (KEPPRA) 1,500 mg | New Bag | 12/24/19 | 1,500 mg | 460 | | | in sodium chloride 0.9% 100 mL | | 20 5:10 | | mL/hr | | | IVPB 1,500 mg, Intravenous, | | PM PDT | | | | | Administer over 15 Minutes, ONCE, | | | | | | | [facility] 12/24/19 at 1700, For 1 dose | | | | | | + +---------+ + +-------+---+ +---+---+ | | | +---+---+ + +---------+ +--------+-------+---+ | levETIRAcetam (KEPPRA) 500 mg | New | 12/31/19 | 500 mg | 420 [...] | | | | | | | [facility] 12/25/19 at 0500 | | | [...] | | + +---+ | LORazepam (ATIVAN) 2 mg/mL | | | injection Starting Sun12/24/19 | | | at 1627, For 1 dose, Dominic, | | | [place]: antione montez, | | + +---+ | | | + +---+ | LORazepam (ATIVAN) injection | | | 1-4 mg 1-4 mg, Intravenous, | | | EVERY 1 HOUR PRN, Seizures, | | | Starting Sun12/24/19 at 1641 | | + +---+ | | | + +---+ + +-------+ +------+---+---+ | LORazepam (ATIVAN) injection 2 | Given | 12/24/19 | 2 mg | | | | mg 2 mg, Intravenous, ONCE, Sun | | 20 4:32 | | | | | 12/24/19 at 1700, For 1 dose | | PM PDT | | | | + +-------+ +------+---+---+ +---+---+ | | | +---+---+ + +-------+ +--------+---+---+ | magnesium hydroxide (MILK [...] +---+---+ | | | +---+---+ + +---------+ +-----+ +---+ | magnesium sulfate 2 g/50 mL | New Bag | 12/31/19 | 2 g | 25 mL/hr | | | IVPB 2 g 2 g, Intravenous, | | 20 7:44 | | | | | Administer over 120 Minutes, | | AM PDT | | | | | ONCE, Sun12/31/19 at 0715, For 1 | | | | | | | dose, Maximum recommended | | | | | | | infusion rate = 1 gram/hour., | | | | | | + +---------+ +-----+ +---+ +---+---+ | | | +---+---+ + +-------+ +------+---+---+ | melatonin tablet 3 mg 3 mg, | Given | 12/23/19 | 3 mg | | | | Oral, NIGHTLY, First dose (after | | 20 9:18 | | | | | last modification) on Sun12/17/19 | | PM PDT | | | | | at 2230 | | | | | | + +-------+ +------+---+---+ +-------+ +------+---+---+ | Given | 12/22/19 | 3 mg | | | | | 20 8:14 | | | | | | PM PDT | | | | +-------+ +------+---+---+ | Given | 12/21/19 | 3 mg | | | | | 20 8:09 | | | | | | PM [...] | | +---+---+ + +-------+ +-------+---+---+ | metoprolol succinate | Given | 12/23/19 | 50 mg | | | | (TOPROL-XL) ER tablet 50 mg 50 | | 20 8:22 | | | | | mg, Oral, DAILY, First dose on | | AM PDT | | | | | 12/22/19 at 1000, Tablet may | | | | | | | be cut where scored but do not | | | | | | | crush., | | | | | | + +-------+ +-------+---+---+ +-------+ +-------+---+---+ | Given | 12/22/19 | 50 mg | | | | | 20 11:56 | | | | | | AM PDT | | | | +-------+ +-------+---+---+ +---+---+ | | | +---+---+ + +-------+ +---------+---+---+ | metoprolol tartrate (LOPRESSOR) | Given | 12/26/19 | 12.5 mg | | | | tablet 12.5 mg 12.5 mg, Oral, 2 | | 20 8:06 | | | | | TIMES DAILY, First dose on Sun | | PM PDT | | | | | 12/24/19 at 2100, Hold if SBP < | | | | | | | 100, or HR < 50, Post-op/Phase II | | | | | | + +-------+ +---------+---+---+ +-------+ +---------+---+---+ | Given | 12/26/19 | 12.5 mg | | | | | 20 9:29 | | | | | | AM PDT | | | | +-------+ +---------+---+---+ +---+---+ | | | +---+---+ + + + +---------+ +---+ | niCARdipine in saline (CARDENE) | Restarte | 12/27/19 | 5 mg/hr | 25 mL/hr | | | 0.2 mg/mL infusion 0-15 mg/hr | d | 20 8:15 | | | | | (0-75 mL/hr), at 0-75 mL/hr, | | AM PDT | | | | | Intravenous, TITRATED, Starting | | | | | | | 12/26/19 at 1430, Protect from | | | | | | | light., Titration Instruction: | | | | | | | See below, Goal: Other, Other | | | | | | | goal: 120, Initial dose: 5 mg/hr, | | | | | | | Increase rate by: 2.5 mg/hr | | | | | | | every 5 minutes., Decrease rate | | | | | | | by: 2.5 mg/hr every 5 minutes., | | | | | | | *: Titrate drug per order as | | | | | | | tolerated. Titration may vary | | | | | | | based on the patient | | | | | | | | | | | | | | s critical condition. | | | | | | + + + +---------+ +---+ + + +---------+ +---+ | Rate/Dose Change | 12/26/19 | 2.5 | 12.5 | | | | 20 10:31 | mg/hr | mL/hr | | | | PM PDT | | | | + + +---------+ +---+ | New Bag | 12/26/19 | 5 mg/hr | 25 mL/hr | | | | 20 9:44 | | | | | | PM PDT | | | | + + +---------+ +---+ +---+---+ | | | +---+---+ + +-------+ [...] +------+---+---+ +---+---+ | | | +---+---+ + + + +---------+---------+---+ | phenylephrine (ROJAS-SYNEPHRINE, | Restarte | 12/25/19 | 10 | 6 mL/hr | | | VAZCULEP) 100 mcg/mL in sodium | d | 20 2:40 | mcg/min | | | | chloride 0.9% 500 mL infusion | | PM PDT | | | | | 20-260 mcg/min (12-156 mL/hr), at | | | | | | | 12-156 mL/hr, Intravenous, | | | | | | | TITRATED, Starting 12/24/19 at | | | | | | | 1330, Titration Instruction: See | | | | | | | below, Goal: MAP 65 and greater, | | | | | | | SBP greater than 90, Initial | | | | | | | dose: 100 mcg/min, Increase rate | | | | | | | by: 20 mcg/min every 5 minutes., | | | | | | | Decrease rate by: 20 mcg/min | | | | | | | every 5 minutes., *: Titrate drug | | | | | | | per order as tolerated. | | | | | | | Titration may vary based on the | | | | | | | patient | | | | | | | | | | | | | | s critical condition., | | | | | | | Post-op/Phase II | | | | | | + + + +---------+---------+---+ + + +---------+---------+---+ | Restarted | 12/25/19 | 10 | 6 mL/hr | | | | 20 9:00 | mcg/min | | | | | AM PDT | | | | + + +---------+---------+---+ | Rate/Dose Change | 12/25/19 | 10 | 6 mL/hr | | | | 20 4:21 | mcg/min | | | | | AM PDT | | | | + + +---------+---------+---+ +---+---+ | | | +---+---+ + +-------+ [...] | potassium chloride (KLOR-CON) | Given | 12/27/19 | 40 mEq | | | | packet 40-60 mEq 40-60 mEq, | | 20 9:47 | | | | | Feeding Tube, PRN, Per Protocol, | | AM PDT | | | | | Starting 12/24/19 at 1705, | | | | | | | ICU Use Only Protocol NOT | | | | | | | recommended if Scr > 1.8, | | | | | | | dialysis patients or CrCl < 50 | | | | | | | mL/min [K+] =3.6 - 4 mEql/L | | | | | | | Give 40 mEq KCl PO/FT x 1 dose | | | | | | | [K+] =3 - 3.5 mEql/L Give 60 | | | | | | | mEq KCl PO/FT x 1 dose [K+] < | | | | | | | 3.0 mEql/L Give 40 mEq KCl | | | | | | | Q2H PO/FT x 2 doses for total | | | | | | | of 80 meq. * Obtain K+ level 4 | | | | | | | hours after replacement is | | | | | | | done. If K+ still < 3.6 mEq/L, | | | | | | | repeat replacement as | | | | | | | indicated per protocol. Give | | | | | | | either tablet, liquid, or IV but | | | | | | | never more than one form., | | | | | | + +-------+ +--------+---+---+ +-------+ +--------+---+---+ | Given | 12/25/19 | 40 mEq | | | | | 20 2:36 | | | | | | PM PDT | | | | +-------+ +--------+---+---+ +---+---+ | | | +---+---+ + +---------+ +--------+ +---+ | potassium chloride 20 mEq in | New Bag | 12/27/19 | 20 mEq | 50 mL/hr | | | sterile water 50 mL IVPB 20 mEq, | | 20 5:39 | | | | | Intravenous, Administer over 1 | | AM PDT | | | | | Hours, PRN, Per protocol, | | | | | | | Starting 12/24/19 at 1705, | | | | | | | ICU Use Only For Central | | | | | | | Line use Only Protocol NOT | | | | | | | recommended if Scr > 1.8, | | | | | | | dialysis patients or CrCl < 50 | | | | | | | mL/min [K+] =3.6 - 4 mEql/L | | | | | | | Give 20 mEq KCl Q1H IV x 2 doses | | | | | | | For a total of 40 mEq [K+] =3 | | | | | | | - 3.5 mEql/L Give 20 meq KCl | | | | | | | Q1H IV x 3 doses For a total | | | | | | | of 60 mEq [K+] < 3.0 mEql/L | | | | | | | Give 20 mEq KCl Q1H IV x 4 doses | | | | | | | For a total of 80 mEq. * | | | | | | | Obtain K+ level 2 hours after | | | | | | | replacement is done. If K+ | | | | | | | still < 3.6 mEq/L, repeat | | | | | | | replacement as indicated per | | | | | | | protocol. Give either tablet, | | | | | | | liquid, or IV but never more than | | | | | | | one form., | | | | | | + +---------+ +--------+ +---+ +---+---+ | | | +---+---+ + +-------+ +---------+---+---+ | probiotic capsule 1 capsule 1 | Given | 12/23/19 | 1 | | | | capsule, Oral, DAILY WITH | | 20 8:26 | capsule | | | | BREAKFAST, First dose on Sun | | AM PDT | | | | | 12/18/19 at 0800, Do not open or | | | | | | | crush., | | | | | | + +-------+ +---------+---+---+ +-------+ +---------+---+---+ | Given | 12/22/19 | 1 | | | | | 20 8:28 | capsule | | | | | AM PDT | | | | +-------+ +---------+---+---+ +---+---+ | | | +---+---+ + +-------+ +---------+---+---+ | senna (SENOKOT) tablet 17.2 mg | Given | 12/23/19 | 17.2 mg | | | | 17.2 mg, Oral, 2 TIMES DAILY, | | 20 9:18 | | | | | First dose on 12/21/19 at 1115 | | PM PDT | | | | + +-------+ +---------+---+---+ +-------+ +---------+---+---+ | Given | 12/23/19 | 17.2 mg | | | | | 20 8:22 | | | | | | AM PDT | | | | +-------+ +---------+---+---+ | Given | 12/22/19 | 17.2 mg | | | | | 20 8:14 | | | | | | PM PDT | | | | +-------+ +---------+---+---+ +---+---+ | | | +---+---+ + +---------+ +--------+-------+---+ | sodium chloride 0.9% (NS) bolus | New Bag | 12/19/19 | 356.5 | 89.1 | | | 356.5 mL 356.5 mL (rounded from | | 20 3:29 | mLs | mL/hr | | | 356.4 mL = 6 mL/kg | | PM PDT | | | | | 59.4 kg), Intravenous, | | | | | | | Administer over 4 Hours, ONCE, | | | | | | | 12/19/19 at 1545, For 1 dose, | | | | | | | Post-op/Phase II | | | | | | + +---------+ +--------+-------+---+ +---+---+ | | | +---+---+ + +---------+ + +--------+---+ | vancomycin in NS (VANCOCIN) | New Bag | 12/16/19 | 1,500 mg | 166.7 | | | IVPB 1,500 mg 1,500 mg (rounded | | 20 9:22 | | mL/hr | | | from 1,475 mg = 25 mg/kg | | PM PDT | | | | | 59 kg), Intravenous, Administer | | | | | | | over 90 Minutes, ONCE, 12/16/19 | | | | | | | at 2045, For 1 dose, Keep in | | | | | | | refrigerator., Indications: | | | | | | | Bacteremia | | | | | | + +---------+ + +--------+---+ +---+---+ | | | +---+---+ + +---------+ + +--------+---+ | vancomycin in NS (VANCOCIN) | New Bag | 12/18/19 | 1,500 mg | 166.7 | | | IVPB 1,500 mg 1,500 mg, | | 20 12:27 | | mL/hr | | | Intravenous, Administer over 90 | | PM PDT | | | | | Minutes, EVERY 24 HOURS INTERVAL, | | | | | | | First dose (after last | | | | | | | modification) on [facility] 12/18/19 at | | | | | | | 1000, Please call pharmacy with | | | | | | | random vanco level prior to | | | | | | | administering 12/18/19 1000 dose. | | | | | | | Keep in refrigerator., | | | | | | | Indications: Bacteremia | | | | | | + +---------+ + +--------+---+ +---+---+ | | | +---+---+ + +---------+ + +-------+---+ | vancomycin in saline IVPB 1,000 | New Bag | 12/17/19 | 1,000 mg | 250 | | | mg 1,000 mg, Intravenous, | | 20 9:50 | | mL/hr | | | Administer over 60 Minutes, ONCE, | | AM PDT | | | | | 12/17/19 at 1000, For 1 dose, | | | | | | | Keep in refrigerator., | | | | | | | Indications: Bacteremia | | | | | | + +---------+ + +-------+---+ + +---+ | | | + +---+ [...] | + +---+ + +-------+ +--------+---+---+ | warfarin (COUMADIN) tablet 2.5 | Given | 12/28/19 | 2.5 mg | | | | mg 2.5 mg, Oral, Daily - | | 20 6:11 | | | | | Warfarin, First dose on Sun | | PM PDT | | | | | 12/28/19 at 1830, Reproductive | | | | | | | Risk: Use appropriate handling | | | | | | | precautions. Drug education | | | | | | | required., | | | | | | + +-------+ +--------+---+---+ +---+---+ | | | +---+---+ + +-------+ +------+---+---+ | warfarin (COUMADIN) tablet 5 mg | Given | 12/30/19 | 5 mg | | | | 5 mg, Oral, Daily - Warfarin, | | 20 5:02 | | | | | First dose (after last | | PM PDT | | | | | modification) on Sun12/29/19 at | | | | | | | 1800, Reproductive Risk: Use | | | | | | | appropriate handling precautions. | | | | | | | Drug education required., | | | | | | + +-------+ +------+---+---+ +-------+ +------+---+---+ | Given | 12/29/19 | 5 mg | | | | | 20 5:26 | | | | | | PM PDT | | | | +-------+ +------+---+---+ +---+---+ | | | +---+---+ documented in this encounter Additional Health Concerns [...]
--- OUTSIDE RECORDS SUMMARY | ~2020-01-05 | XMS | Encounter Summary ---
Demographics + + + | Address | [address] | | | [place] [address] | + + + | Home Phone | | + + + | Preferred Language | Unknown | + + + | Marital Status | | + + + | Temple Affiliation | Unknown | + + + | Race | Unknown | + + + | Ethnic Group | Not or | + + + Author + + + | Author | [facility] | | | and [place] | + + + | Organization | [facility] | | [...] | | | | | [place] [address] | | + + + + + | Alvaro Newton | ECON | Unknown | | + + + + + Care Team Providers + +------+ + | Care Bark Scaler Name | Role | Phone | + +------+ + | Sheng Combs MD | PCP | | + +------+ + Reason for Visit + +--------+ + | Reason | Onset | Comments | | | Date | | + +--------+ + | Follow-up(Procedure) | 12/31/ | [facility] f/u post 1 day discharge | | | 2020 | | + +--------+ + Encounter Details +--------+ + + + + | Date | Type | Department | Care Team | Description | +--------+ + + + + | 12/31/ | Telephone | [facility] | Reilly Galvan, | Follow-up(Procedure) | | 2019 | | CARDIOTHORACIC | PhD [address] | ([facility] f/u post 1 day | | | | SURGERY [address] | [address] | discharge) | | | | [address] | [place] [address] | | | | | [place], [place] | [phone] | | | | | [address] | | | | | | [phone] | | | +--------+ + + + [...] Telephone Encounter - Elda Whitmore RN - 01/01/2020 4:07 PM PDTCall Date: 12/31 [facility] Cardiothoracic Procedure Date: 12/24/2019, Dr. Galvan Procedure: Mitral valve replacement with a 29 mm Saint JudeEpic bioprosthetic valve Exploration of aortic valve Post-op appointment: 01/16/2020 at 1330 Cardiology appointment: (Oh) 01/21/2020 Other appointment: ID (Yuliya) pending, PCP (Lauryn) 01/06/2020, [facility] 01/01/20 20 1 day post discharge Spoke with spouse Nathalie verified two patient identifiers Cardiac Symptoms Chest pain: none Fainting/dizzy: none Sweating: none Weight: 136 lb Discharge weight: 61 kg, 134 lb 7.7 Edema: none Incision site Chest redness: none Chest swelling: none Chest drainage: none Chest warmth: none Surgical Pain Surgical pain: c/o "sore" Location: sternal incision area Medication: no medications needed for pain mangement Vital Signs Diabetic: yes Glucose: diet controlled Fever/temp: afebrile Pulse: 85, denies heart palpitations Blood Pressure: systolic 118-133, diastolic 56-74 Oxygen/breathing: room air, denies SOB, and using IS as instructed Activity of Daily Living Appetite: improving Sleeping difficulties: none Sternal precautions: reinforced Leg elevation: reinforced Exercise: walking frequently Patient Concerns: none at this time, states "he is doing fine", continues daily IV abx ther apy, and is schedule for nurse home visit tomorrow. Spouse reports patient is eating, urinat ing, and having bowel movements without difficulty. Reviewed medications along with discharge instructions, spouse states "he's not taking stat ins, just not doing it". Encouraged to schedule f/u appointments as instructed and call clin ic if incisions develop new redness, swelling, or drainage. Nathalie verbalized understanding a nd agreed with plan of care. Dr. Galvan notified of patients progress.Electronically signed by Elda Whitmore RN at 12/13 5:27 PM PDTdocumented in this encounter Plan of Treatment +--------+---------+ + + + | Date | Type | Specialty | Care Team | Description | +--------+---------+ + + + | 01/07/ | Office | Anticoagulation | Kenroy Greenberg, | | 2019 | Visit | | [address] | | | | | | [place] | | | | | | [id number] | | | | | | | | +--------+---------+ + + + | 01/15/ | Office | Cardiothoracic | Keaton Ernandez, | | | 2019 | Visit | Surgery | [address] | | | | | | [place] | | | | | | [place] [address] | | | | | | [phone] | | | | | | | | +--------+---------+ + + + | 01/20/ | Office | Cardiology | Valarie, | | | 2019 | Visit | | [address] | | | | | | [address] | | | | | | [place] | | | | | | [address] | | | | | | | | +--------+---------+ + + + | 01/20/ | Office | Infectious Diseases | Josh Mckeon DO | | | 2019 | Visit | | [address] | | | | | | [place] [address] | | | | | | [phone] | | | | | | | | +--------+---------+ + + + documented as of this encounter Visit Diagnoses Not on filedocumented in this encounter
--- OUTSIDE RECORDS SUMMARY | ~2020-01-05 | XMS | Clinical Summary ---
Demographics + + + | Address | [address] | | | [place] [address] | + + + | Home Phone | | + + + | Preferred Language | Unknown | + + + | Marital Status | | + + + | Christian Affiliation | Unknown | + + + | Race | Unknown | + + + | Ethnic Group | Not or | + + + Author + + + | Author | [facility] | | | and [place] | + + + | Organization | [facility] | | | [...] | | | | | [place] [address] | | + + + + + | Alvaro Newton | ECON | Unknown | | + + + + + Care Team Providers + +------+ + | Care Macaroni Maker Name | Role | Phone | + +------+ + | Sheng Combs MD | PCP | | + +------+ + Allergies + + [...] (81 mg | 30 | 0 | 06/2 | | Activ | | ADULT LOW STRENGTH) | total) by mouth | tablet | | 0/20 | | e | | 81 MG EC tablet | Daily | | | 20 | | | + + + +---------+------+------+-------+ | acetaminophen | Take 2 tablets by | | 0 | 08/1 | | Activ | | (TYLENOL) 500 mg | mouth EVERY 6 TO 8 | | | 8/20 | | e | | tablet | HOURS NEEDED for | | | 20 | | | | | Pain. | | | | | | + + + +---------+------+------+-------+ | ascorbic acid | Take 1 tablet by | 30 | 1 | 08/1 | 10/1 | Activ | | (VITAMIN C) 500 mg | mouth Daily for 60 | tablet | | 8/20 | 7/20 | e | | tablet | days. | | | 20 | 20 | | + + + +---------+------+------+-------+ | atorvaSTATin | Take 1 tablet by | 30 | 1 | 08/1 | | Activ | | (LIPITOR) 40 mg | mouth nightly. | tablet | | 8/20 | | e | | tablet | | | | 20 | | | + + + +---------+------+------+-------+ | ferrous sulfate | Take 1 tablet by | 60 | 1 | 08/1 | | Activ | | 325 mg tablet | mouth 2 times daily | tablet | | 8/20 | | e | | | (with breakfast & | | | 20 | | | | | dinner). | | | | | | + + + +---------+------+------+-------+ | lisinopril | Take 1 tablet by | 30 | 1 | 08/1 | | Activ | | (PRINIVIL,ZESTRIL) | mouth Daily. | tablet | | 8/20 | | e | | 2.5 MG tablet | | | | 20 | | | + + + +---------+------+------+-------+ | oxyCODONE | Take 1 tablet by | 30 | 0 | 08/1 | | Activ | | (ROXICODONE) 5 mg | mouth every 6 hours | tablet | | 8/20 | | e | | tablet | as needed for Pain. | | | 20 | | | + + + +---------+------+------+-------+ | warfarin | Take 1 tablet by | 30 | 1 | 12/12 | | Activ | | (COUMADIN) 3 MG | mouth Daily. | tablet | | 12/31 | | e | | tablet | | | | 20 | | | + + + +---------+------+------+-------+ | cefTRIAXone | Inject 2 g into the | 1 each | 0 | 08/2 | 01/12 | Activ | | (ROCEPHIN) IVPB | vein Daily for 27 | | | 3 | 9 | e | | (custom dose) 2 | days. Indications: | | | 20 | 20 | | | gIndications: | Bacteria in the | | | | | | | Bacteremia, | Blood, endocarditis | | | | | | | endocarditis | | | | | | | + + + +---------+------+------+-------+ | cefTRIAXone | Inject 50 mLs into | 400 mL | 0 | 08/1 | 08/2 | Expir | | (ROCEPHIN) 40 MG/ML | the vein every 12 | | | 8/20 | 2/20 | ed | | IVPBIndications: | hours for 4 days. | | | 20 | 20 | | | Bacteremia | Indications: | | | | | | | | Bacteria in the | | | | | | | | Blood | | | | | | + + + +---------+------+------+-------+ Active Problems + + + | Problem | Noted Date | + + + | Status post mitral valve replacement | 12/24/2019 | + + + | Mitral valve replaced | 12/24/2019 | + + + + + | Overview: 29 mm [place] Epic bioprosthetic valve | + + + + + | DUNIA (acute kidney injury) | 12/21/2019 | + + + | Severe protein-calorie malnutrition | 12/17/2019 | + + + | Acute bacterial endocarditis | 12/16/2019 | + + + | Diet-controlled diabetes mellitus | 12/16/2019 | + + + | 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 | + + + + + | Overview: Added automatically from request for surgery | | [id number] | + + + +---+ | Infectious endocarditis | | + +---+ Resolved Problems + +--------+ + | Problem | Noted | Resolved | | | Date | Date | + +--------+ + | Severe mitral regurgitation | | | | | | 0 | + +--------+ + Encounters +--------+ + + + + | Date | Type | Specialty | Care Team | Description | +--------+ + + + + | 01/04/ | Office | Anticoagulation | Kenroy Greenberg, | Arrived | | 2019 | Visit | | FRONT LINE SUPERVISOR | | +--------+ + + + + | 01/04/ | Telephone | Cardiothoracic | Reilly Galvan, | Follow-up(Procedure) | 2019 | | Surgery | MD Tovar | (MVR - tachycardia) | +--------+ + + + + | 01/04/ | Telephone | Infectious Diseases | Joana Guevara, | Care Coordination | | 2019 | | | Respite Coordinator | (Lab result f/u) | +--------+ + + + + | 01/03/ | Telephone | Infusion Therapy | Isaac Rocha, | | 2019 | | | PharmD | | +--------+ + + + + | 01/01/ | Home | Infusion Therapy | Janessa Macdonald RN | | 2019 | Infusion | | | | | | Visit | | | | +--------+ + + + + | 01/01/ | Orders Only | Infusion Therapy | Janessa Macdonald RN | | | 2019 | | | | | +--------+ + + + + | 01/01/ | Telephone | Infectious Diseases | Yuliya | Abnormal Lab | | 2019 | | | MD Maddi | | +--------+ + + + + | 01/01/ | Orders Only | | Amanda Dunn, | Acute bacterial | | 2019 | | | Loop Puller | endocarditis | +--------+ + + + + | 12/31/ | Office | Anticoagulation | Kenroy Greenberg, | | | 2019 | Visit | | [place] | | +--------+ + + + + | 12/31/ | Telephone | Cardiothoracic | Reilly Galvan, | Follow-up(Procedure) | | 2019 | | Surgery | MD Tovar | (MVR f/u post 1 day | | | | | | discharge) | +--------+ + + + + | 12/29/ | Home | Infusion Therapy | Rubia Brewster, | | | 2019 | Infusion | | RN | | | | Visit | | | | +--------+ + + + + | 12/23/ | Anesthesia | | Nimesh Castillo MD | | | 2019 | Event | | | | +--------+ + + + + | 12/23/ | Surgery | | Reilly Galvan, | MITRAL VALVE | | 2019 | | | MD Tovar | REPLACEMENT | +--------+ + + + + | 12/19/ | Anesthesia | | Osmin Man | | | 2019 | Event | | CADEN Chandra | | +--------+ + + + + | 12/19/ | Surgery | | Job Menjivar, | EXTRACTION TEETH | | 2019 | | | DMD | | +--------+ + + + + | 12/18/ | Surgery | Cardiology | Jeet Casiano, | CV LHC | | 2019 | | | | | +--------+ + + + + | 12/18/ | Anesthesia | Cardiology | Cam Nagel | | | 2019 | Event | | MD Sebastian | | +--------+ + + + + | 12/16/ | Documentati | Cardiology | Aimee Vides, | | | 2020 | on | | MD | | +--------+ + + + + | 12/15/ | Hospital | Internal Medicine | Reilly Hart MD | S/P MVR (mitral | | 2019 - | Encounter | | Monty Major MD | valve repair) | | | | | Aki Youssef | (Primary Dx); Acute | | 12/30/ | | | Yao Aaron MD Cole, | bacterial | | 2019 | | | Reilly Umaña MD PhD | endocarditis; | | | | | | Diet-controlled | | | | | | diabetes mellitus | | | | | | ([facility]); Subacute | | | | | | bacterial | | | | | | endocarditis; | | | | | | Endocarditis of | | | | | | mitral valve; Gram | | | | | | positive bacterial | | | | | | infection; | | | | | | 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; Weight loss; | | | | | | Poor dentition; | | | | | | Severe mitral | | | | | | regurgitation; | | | | | | Severe | | | | | | protein-calorie | | | | | | malnutrition ([facility]); | | | | | | Endocarditis [...] | | | | | | embolism ([facility]); | | | | | | Bacterial | | | | | | endocarditis, | | | | | | unspecified | | | | | | chronicity; | | | | | | Streptococcal | | | | | | bacteremia | +--------+ + + + + | [...] + + + from Last 3 Months Family History + + +------+ + | Medical History | Relation | Name | Comments | + + +------+ + | Asthma | Father | | | + + +------+ + + +------+--------+ + | Relation | Name | Status | Comments | + +------+--------+ + | Father | | | | + +------+--------+ + Social History + +-------+ +--------+ + [...] + + + + Plan of Treatment +--------+---------+ + + + | Date | Type | Specialty | Care Team | Description | +--------+---------+ + + + | 01/07/ | Office | Anticoagulation | Kenroy Greenberg, | | | 2019 | Visit | | [place] [address] | | | | | | [place] | | | | | | [address] | | | | | | | | +--------+---------+ + + + | 01/15/ | Office | Cardiothoracic | Keaton Ernandez, | | | 2019 | Visit | Surgery | [address] | | | | | | [place] | | | | | [place] [address] | | | | | | [phone] | | | | | | | | +--------+---------+ + + + | 01/20/ | Office | Cardiology | Valarie, | | | 2019 | Visit | | [place] [address] | | | | | | [address] | | | | | | [place] | | | | | | [address] | | | | | | | | +--------+---------+ + + + | 01/20/ | Office | Infectious Diseases | Josh Mckeon DO | | | 2019 | Visit | | [address] | | | | | | [place] [address] | | | | | | [phone] | | | | | | | | +--------+---------+ + + + + + + + + | Health Maintenance | Due Date | Last | Comments | | | | Done | | + + + + + | Hepatitis C | | | | | Screening | 9 | | | + + + + + | Diabetic Eye Exam | | | | | | 7 | | | + + + + + | Diabetic Foot Exam | | | | | | 7 | | | + + + + + | Vaccine: | | | | | Dtap/Tdap/Td (1 - | 8 | | | | Tdap) | | | | + + + + + | Vaccine: Zoster (1 | | | | | of 2) | 9 | | | + + + + + | AAA Screening | | | | | | 4 | | | + + + + [...] | + + + + + | Med Mgmt: INR | | 01/01/20 | | | | 0 | 20, | | | | | 12/31/19 | | | | | 20, | | | | | 12/30/19 | | | | | 20, | | | | | Addition | | | | | al | | | | | history | | | | | exists | | + + + + + | Hemoglobin A1c | | 10/31/19 | | | Screening | 0 | 20 | | + + + + + | Colorectal Cancer | | 12/18/19 | | | Screening (FIT) | 1 | 20 | | + + + + + | Med Mgmt: Cr | | 12/31/19 | | | | 1 | 20, | | | | | 12/30/19 | | | | | 20, | | | | | 12/29/19 | | | | | 20, | | | | | Addition | | | | | al | | | | | history | | | | | exists | | + + + + + | Med Mgmt: K | | 12/31/19 | | | | 1 | 20, | | | | | 12/30/19 | | | | | 20, | | | | | 12/29/19 | | | | | 20, | | | | | Addition | | | | | al | | | | | history | | | | | exists | | + + + + + | Medication | | 01/01/20 | | | Management | 1 | 20 | | + + + + + Implants + +--------+-------+ +--------+--------+--------+ | Implanted | Type | Area | Manufacture | Device | Shelf | Model | | | | | r | | Expira | / | | | | | | Identi | tion | Serial | | | | | | fier | Date | / Lot | + +--------+-------+ +--------+--------+--------+ | Valve Mtrl Epic Stnt 29mm - | Tissue | N/A: | [facility] | | 06/09/ | [id number] | | [id number]: Qty: 1 | Heart | Heart | MEDICAL - | | 2023 | 9M-00 | | on 12/24/2019 by Cole, | Valve | | STJU | | | /[id number] | | Reilly Umaña MD PhD at [facility] | | | | | | [address] | | [facility] | | | | | | /NA | | CENTER | | | | | | | + +--------+-------+ +--------+--------+--------+ Procedures + +--------+ + + + | [...] + | POC PT/INR | Routin | 01/01/2020 | | Results for this | | FINGERSTICK | e | 12:24 PM | | procedure are in the [...] | | Results for this | | TRANSESOPHAGEAL(ADALI) | e | 1:14 PM | | [...] + + + | POC KAROL 4, ISKYLEIGH | Routin | 12/24/2019 | | Results [...] | ANE AIRWAY NOTE | Routin | 12/20/2019 | | Results for this | | | e | 9:36 AM | | procedure are in the [...] | | Results for this | | (ADALI) | | 1:29 PM | | procedure [...] + | ECHO COMPLETE | Routin | 12/16/2019 | | Results for this | | | e | 9:35 AM | | procedure are in the [...] + + from Last 3 Months Results POCT PT/INR fingerstick (01/05/2020 1:45 PM PDT)Only the most recent of 2 results within t he time period is included. + +-------+ + + + | Component | Value | Ref Range | Performed | Pathologist | | | | | At | Signature | + +-------+ + + + | INR, POC | 1.2 | 0.9 - 1.2 | | | + +-------+ + + + + + | Specimen | + + | Blood | + + LABS - EXTERNAL SCAN (01/01/2020 12:00 AM PDT)Only the most recent of 2 results within the time period is included. + + + | Narrative | Performed At | + + + | Ordered by an | | | unspecified provider. | | + + + XR Chest AP Portable (12/31/2019 5:53 AM PDT)Only the most recent of 13 results within the time period is included. + + | Specimen | + + [...] Procedure Note | + + | Juan, [id number] - 12/31/2019 6:04 AM PDT | | [...] + + Protime INR (12/31/2019 5:36 AM PDT)Only the most recent of 9 results within the time tomás od is [...] | | | | | performed at [facility] | | | | | | [address];[place], [place] | | | | | | [address] | | | | + + + + + + + + | Specimen | + + | Blood | + + + + + + + | Performing | Address | City/State/Zipcode | Phone Number | | Organization | | | | + + + + + | [facility] | [address] | [place] [address] | [phone] | + + + + + CBC with Differential (12/31/2019 5:36 AM PDT)Only the most recent of 16 results within time period is included. + + + + + [...] 0.02Comment: Testing | 0.00 - 0.10 | [facility] | | | Absolute | performed at [facility], [address] | [address] | LABORATORY | | | | [address], | | | | | | [place] [address] | | | | + + + + + + + + | Specimen | + + | Blood | + + + + + + + | Performing | Address | City/State/Zipcode | Phone Number | | Organization | | | | + + + + + | [facility] | [address] | [place] [address] | [phone] | + + + + + Magnesium (12/31/2019 5:36 AM PDT)Only the most recent of 10 results within the time perio d is included. + + + + + + | Component | Value | Ref Range | Performed | Pathologist | | | | | At | Signature | + + + + + + | Magnesium | 1.5 (L)Comment: Testing | 1.7 - 2.4 mg/dL | [facility] | | | | performed at [facility];[address] | | LABORATORY | | | | [address];[place], [place] | | | | | | [address] | | | | + + + + + + + + | Specimen | + + | Blood | + + + + + + + | Performing | Address | City/State/Zipcode | Phone Number | | Organization | | | | + + + + + | [facility] | [address] | [place] [address] | [phone] | + + + + + Basic Metabolic Panel (12/31/2019 5:36 AM PDT)Only the most recent of 17 results within time period is included. + + + + + [...] 8.4 (L) | 8.5 - 10.5 | [facility] | | | | | mg/dL [...] | | | | | performed at [facility] | | | | | | [facility];[place], [place] | | | | | | [address] | | | | + + + + + + + + | Specimen | + + | Blood | + + + + + + + | Performing | Address | City/State/Zipcode | Phone Number | | Organization | | | | + + + + + | [facility] | [address] | [place] [address] | [phone] | + + + + + POC Glucose (12/30/2019 8:34 PM PDT)Only the most recent of 44 results within the time per iod is included. + + + + + + | Component | Value | Ref Range | Performed | Pathologist | | | | | At | Signature | + + + + + + | Glucose, | 110 (H)Comment: Testing | 65 - 99 mg/dL | [facility] | | | POC | performed at [facility];[address] | | LABORATORY | | | | [address];[place], [place] | | | | | | [address] | | | | + + + + + + + + | Specimen | + + | | + + + + + + + | Performing | Address | City/State/Zipcode | Phone Number | | Organization | | | | + + + + + | [facility] | [address] | [place] [address] | [phone] | + + + + + ECG 12 lead (12/29/2019 8:09 AM PDT)Only the most recent of 7 results within the time tomás od is [...] MD | | | | | | ([id number]) on 12/29/2019 | | | | | [...] | | | + +---------+ + + MRI Brain wo Contrast (12/28/2019 [...] Procedure Note | + + | Juan, [id number] - 12/28/2019 11:01 PM PDT | | [...] | | | + +---------+ + + Potassium (12/27/2019 12:39 PM PDT)Only the most recent of 6 results within the time period is included. + + + + + + | Component | Value | Ref Range | Performed | Pathologist | | | | | At | Signature | + + + + + + | K | 4.4Comment: Testing | 3.5 - 4.9 | [facility] | | | | performed at [facility];[address] | mmol/L | LABORATORY | | | | [address];[place], [place] | | | | | | [address] | | | | + + + + + + + + | Specimen | + + | Blood | + + + + + + + | Performing | Address | City/State/Zipcode | Phone Number | | Organization | | | | + + + + + | [facility] | [address] | [place] [address] | [phone] | + + + + + Echo [...] study, done 12/16/2019 | | | at [facility]. | | |12/16/2019 at [facility]. | | | | | + + + + +---------+ + + | Performing | Address | City/State/Zipcode | Phone Number | | Organization | | | | + +---------+ + + | [facility] | | | | + +---------+ + + EEG (12/25/2019 3:04 PM PDT) + + + | Narrative | Performed At | + + + | Josh Montoya Neurodiagnostic Tech 12/25/2019 3:04 PM | | | [facility] [address] | | | [place] [address] Patient: Reilly Hamm ID: | | | [id number] : 1950 Age: 69 Gender: male Room #: 23524 | | | Physician: uLis E Malcolm Extractor Operator Helper: Jsoh Montoya | | | Ref. Physician: Carolin [...] | | | | + + + CT Head wo Contrast [...] Procedure Note | + + | Juan, [id number] - 12/25/2019 2:10 AM PDT | | [...] + | Performing | Address | City/State/[facility] | Phone Number | | Organization | | | | + +---------+ + + | [facility] | | | | + +---------+ + + Blood gas, Arterial (12/24/2019 5:56 PM PDT)Only the most recent of 3 results within the period is included. + + + + + [...] | | | | | | determined by[place], it | | | | | | [...] | | | Arterial, | performed at [facility];[address] | | LABORATORY | | | POC | [address] [facility];[place], [place] | | | | | | [address] | | | | + + + + + + + + | Specimen | + + | | + + + + + + + | Performing | Address | City/State/Zipcode | Phone Number | | Organization | | | | + + + + + | [facility] | [address] | [place] [address] | [phone] | + + + + + Activated clotting time (12/24/2019 3:26 PM PDT) + + + + + + | Component | Value | Ref Range | Performed | Pathologist | | | | | At | Signature | + + + + + + | Activated | 257 (H)Comment: Testing | 74 - 137 | [facility] | | | Clotting | performed at [facility];[address] | seconds | LABORATORY | | | Time, POC | [address];[place] | | | | | | [address] | | | | + + + + + + + + | Specimen | + + | | + + + + + + + | Performing | Address | City/State/Zipcode | Phone Number | | Organization | | | | + + + + + | [facility] | [address] | [place] [address] | [phone] | + + + + + PTT (12/24/2019 1:28 PM PDT) + + + + + + | Component | Value | Ref Range | Performed | Pathologist | | | | | At | Signature | + + + + + + | PTT | 32Comment: Testing | 23 - 32 seconds | [facility] | | | | performed at [facility];[address] | | LABORATORY | | | | [address];[place] | | | | | | [address] | | | | + + + + + + + + | Specimen | + + | Blood | + + + + + + + | Performing | Address | City/State/Zipcode | Phone Number | | Organization | | | | + + + + + | [facility] | [address] | [place] [address] | [phone] | + + + + + Fibrinogen (12/24/2019 1:28 PM PDT) + + + + + + | Component | Value | Ref Range | Performed | Pathologist | | | | | At | Signature | + + + + + + | Fibrinogen | 292Comment: Testing | 200 - 450 mg/dL | [facility] | | | | performed at [facility];[address] | | LABORATORY | | | | [address];[place] | | | | | | [address] | | | | + + + + + + + + | Specimen | + + | Blood | + + + + + + + | Performing | Address | City/State/Zipcode | Phone Number | | Organization | | | | + + + + + | [facility] | [address] | [place] [address] | [phone] | + + + + + ECHO Transesophageal (ADALI) - Perivonnie (12/24/2019 1:14 PM PDT) + +-------+ + + + | Component | Value | Ref Range | Performed | Pathologist | | | | | At | Signature | + +-------+ + + + | LVEF-ADALI | 55 | | [facility] | | | TRANSESOPHA | | | | | | GEAL ECHO | | | | | + +-------+ + + + + + | Specimen | + + | | + + + +--- + | Narrative | Pe rformed At | + +--- + | | [facility] | | Transesophageal Echocardiography Report (ADALI) Demographics Patient | | | Name CHEYANNE SIMMS Room Number [facility] INTRA OP | | | SUSHIL | | | POOL Patient Number [id number] Date of Study | | | 12/24/2019 Visit Number [id number] Referring | | | Physician SAMUEL Waldron | | | Flatlock Sewing Machine Operator Number Date of 1950 | | | Interpreting Nimesh Castillo MD | | | Physician Age 69 year(s) | | | Nurse Gender Male | | | Stress Extractor Operator Helper Procedure Type of Study ADALI | | | procedure:TRANSESOPHAGEAL(ADALI) - PERIOPERATIVE. Procedure DateDate: | | | [...] LAE. At least | | | moderate kletsel dehe wintun MR with (+)vegetation on P2 scallop. Mild AI. Trace | | | TR. Mild PI. s/p satisfactory 29mm SJM Epic bioprosthetic MVR. | | | Signature | | | | | | Electronically signed by Nimesh Castillo MD (Interpreting physician) on | | | 12/24/2019 at 04:01 PM | | | ADALI | | | Performed By: Dr. Reddy [...] | demonstrates lipomatous hypertrophy. (+)small PFO with dkar-ej-rmxsr | | | shunt via CFM. Left [...] Aorta: 2.48 cm | | | Miscellaneous UexwjtzaApiw-cb-whydznfa atherosclerosis of thoracic | | | aorta. [...] Pleura Pleural Effusion Findings | | | Gkeix-iq-lleqdtwa left pleural effusion noted. Valves Mitral Valve [...] Valve Findings AV annulus = 21mm. Tri-cuspid kletsel dehe wintun valve. Mild cusp & | | | annular calcification. Mild aortic insufficiency with jet originating | | | near annulus between noncoronary- and left coronary cusps. No | | | evidence of vegetation or fistula tract identified. Absent aortic | | | stenosis (FLORENTINO = 2.3cm2 via planimetry vs. 2.5cm2 via [...] | | | |Miscellaneous Findings | | |Djcf-pk-fexgozkm atherosclerosis of thoracic aorta. | | | [...] | Pleural Effusion Findings | | | Aklzh-ll-esshpwif left pleural effusion noted. | | | [...] | | AV annulus = 21mm. Tri-cuspid kletsel dehe wintun valve. Mild cusp & annular | | | calcification. Mild aortic insufficiency with jet originating near | | | annulus between noncoronary- and left coronary cusps. No evidence of | | | vegetation or fistula tract identified. 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 | | | | Procedure [...] Severe LAE. At | | least moderate kletsel dehe wintun MR with (+)vegetation on P2 scallop. Mild AI. Trace | | TR. Mild PI. s/p satisfactory 29mm SJM Epic bioprosthetic MVR. | | | | Signature | | | | | | | | | | | | ADALI Performed By: Dr. Reddy | | | [...] lipomatous hypertrophy. | | (+)small PFO with kutn-ox-gdgfq shunt via CFM. | | | | [...] | | | Miscellaneous Findings | | Pfxv-gj-pndtkaux atherosclerosis of thoracic aorta. | | | [...] | | Pleural Effusion Findings | | Rnhlc-af-aqofwxwy left pleural effusion noted. | | | [...] | | AV annulus = 21mm. Tri-cuspid kletsel dehe wintun valve. Mild cusp & annular | | calcification. Mild aortic insufficiency with jet originating near | | annulus between noncoronary- and left coronary cusps. No evidence of | | vegetation or fistula tract identified. Absent aortic stenosis (FLORENTINO = | | 2.3cm2 via planimetry vs. [...] CG 4, ISTAT Arterial (12/24/2019 12:18 PM PDT)Only the most recent of 4 results within the time period is included. + + + + + [...] Testing | 95 - 98 % | [facility] | | | Arterial, | performed at [facility] [place] [facility];[address] | | LABORATORY | | | POC | [address];[place] | | | | | | [id number] | | | | + + + + + + + + | Specimen | + + | | + + + + + + + | Performing | Address | City/State/Zipcode | Phone Number | | Organization | | | | + + + + + | [facility] | [address] | [place] [address] | [phone] | + + + + + POC ISTAT, CG8, Arterial (12/24/2019 12:14 PM PDT)Only the most recent of 8 results within the time period is included. + + + + + [...] | | | POC | performed at [facility];888 | g/dL | LABORATORY | | | | [address];[place], [place] | | | | | | [address] | | | | + + + + + + + + | Specimen | + + | | + + + + + + + | Performing | Address | City/State/Zipcode | Phone Number | | Organization | | | | + + + + + | [facility] | [address] | [place] [address] | [phone] | + + + + + Surgical [...] brown-brothers to hemorrhagic area. | | | Substation Supervisor sections of each are submitted in cassette [...] | | professional interpretation was performed by [facility], | | | [facility], [address] [place] [address], [place], [place] (Medical | | | Director: Josh Bob M.D.; CLIA#: [id number]).The technical | | | component was performed by [facility], [address] [facility], | | | [place] [address] (Flatbed Stitcher: Fadumo Triana MD; CLIA# | | | [id number]). Diagnostician: Josh Bob | | | MDPathologistElectronically [...] RESULT | Testing performed at | | [facility] | | | | [facility], [address] | | LABORATORY | | | | [place] | | | | | | [id number]: Testing | | | | | | performed at [facility], [address] | | | | | | [facility] [place], | | | | | | [place] [address] | | | | + + + + + + + + | Specimen | + + | Tissue - Heart valve | | tissue (specimen) | + + + + + + + | Performing | Address | City/State/Zipcode | Phone Number | | Organization | | | | + + + + + | [facility] | [address] | [place] [address] | [phone] | + + + + + POC SHARITA PADILLA Venous (12/24/2019 10:04 AM PDT) + + [...] | | | POC | performed at [facility];888 | g/dL | LABORATORY | | | | [address];[place], [place] | | | | | | [address] | | | | + + + + + + + + | Specimen | + + | | + + + + + + + | Performing | Address | City/State/Zipcode | Phone Number | | Organization | | | | + + + + + | [facility] | [address] | [place] [address] | [phone] | + + + + + CVC (12/24/2019 9:18 AM PDT) + + + [...] complications noted at this time 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 | | + + + Red Blood Cells (RBC) - Crossmatch and Hold (12/24/2019 6:59 AM PDT)Only the most recent o f 3 results within the time period is included. + + + + + [...] BANK | Testing performed at | | [facility] | | | COMMENT | [facility];[address] | | LABORATORY | | | | Dav[place] [address] | | | | + + + + + + + + | Specimen | + + | | + + + + + + + | Performing | Address | City/State/Zipcode | Phone Number | | Organization | | | | + + + + + | [facility] | [address] | [place] [address] | [phone] | + + + + + Coronavirus (COVID-19) NAAT (12/24/2019 6:46 AM PDT)Only the most recent of 2 results with in the time period is included. + + + + + + | Component | Value | Ref Range | Performed | Pathologist | | | | | At | Signature | + + + + + + | SARS-CoV-2, | NEGATIVEComment: This | NEG | [facility] | | | NAAT | test [...] | | | | | performed at [facility];88 | | | | | | [address];[place] | | | | | | [address] | | | | + + + + + + + + | Specimen | + + | Tissue - Entire | | nasopharynx (body | | structure) | + + + + + + + | Performing | Address | City/State/Zipcode | Phone Number | | Organization | | | | + + + + + | [facility] | [address] | [place] [address] | [phone] | + + + + + Urinalysis [...] - 1.030 | [facility] | | | [place], | | | LABORATORY | | | [...] | | | Urine | performed at [facility];888 | | LABORATORY | | | | [address];[place] | | | | | | [address] | | | | + + + + + + + + | Specimen | + + | Urine | + + + + + + + | Performing | Address | City/State/Zipcode | Phone Number | | Organization | | | | + + + + + | [facility] | [address] | [place] [address] | [phone] | + + + + + XR [...] Procedure Note | + + | Juan, [id number] - 12/23/2019 10:03 AM PDT | | [...] + Type and Screen (12/23/2019 8:40 AM PDT)Only the most recent of 2 results within the time period is included. + + + + + [...] + + + | BB BAND | [id number] | | [facility] | | | | | | LABORATORY | | + + + + + + | UNIT # | [id number] | | [facility] | | | | [...] + + + | UNIT # | [id number] | | [facility] | | | | [...] + + + | UNIT # | [id number] | | [facility] | | | | [...] + + + | UNIT # | [id number] | | [facility] | | | | [...] | | | RESULT | performed at [facility] | | LABORATORY | | | | [address];[place], [place] | | | | | | [address] | | | | + + + + + + + + | Specimen | + + | Blood | + + + + + + + | Performing | Address | City/State/Zipcode | Phone Number | | Organization | | | | + + + + + | [facility] | [address] | [place] [address] | [phone] | + + + + + CT [...] | | Signed by: Fernando Grullon, Benjamín Loo Date/Time: 12/20/2019 2:54 PM | | + [...] Procedure Note | + + | Juan, [id number] - 12/20/2019 2:58 PM PDT | | [...] | | | + +---------+ + + Airway (12/20/2019 9:36 AM PDT) + + + | Narrative | Performed At | + + + | Osmin Man CRNA 12/20/2019 9:36 AM Anesthesia | | | Airway Placement 12/20/2019 9:14 AM Preprocedure check: patient | | | identified, oxygen, airway assessed, patient reassessment prior to | | | induction, airway equipment checked and suction Mask ventilation: | | | easy Successful technique: Mac Laryngoscope blade size: 3 | | | Airway grade: 2a (Partial view of glottis) Other equipment: stylette | | | Attempts: 1 Airway type: endotracheal and oral REAL Size: 8 Cuffed: | | | cuffed Route, reference point: center of mouth Tube secured with: | | | adhesive tape Trauma: none Tube placement verification: bilateral | | | chest rise and carbon dioxide detection Performing provider: | | | Osmin Man CRNA Authorizing provider: Osmin Chandra | | | CADEN Man Please see intraoperative grid for any | | | additional medication documentation. | | + + + CV CARDIAC PROCEDURE (12/19/2019 [...] | | Procedures Performed Left heart catheterization (25431.26) with | | | selective bilateral coronary angiography, left ventricular angiograpy. | | | Procedure Summary Access site: right radial artery | | | Anticoagulation: heparin Antiplatelet therapy: aspirin 81 mg | | | Closure: Radial band/closure device Clinical IndicationsJyothi is a 69 | | | y.o. year old male transferred to [facility] from [facility] in | | | Cathi due to mitral endocarditis, blood cultures positive [...] | | + + -+ ECHO Transesophageal (ADALI) (12/19/2019 1:29 PM PDT) + +-------+ + [...] (ASD), measuring only 2.5 mm, with minimal ydmy-ll-wdciu | | | shunting. There is no evidence of pujlp-gq-gkwm shunting on the | | | intravenous bubble contrast study. | | |adzof-ad-oiag shunting on the intravenous bubble contrast study. [...] Testing | 0.7 - 1.5 ng/dL | [facility] | | | | performed at [facility];[address] | | LABORATORY | | | | [address] [place] | | | | | | [address] | | | | + + + + + + + + | Specimen | + + | Blood | + + + + + + + | Performing | Address | City/State/Zipcode | Phone Number | | Organization | | | | + + + + + | [facility] | [address] | [place] [address] | [phone] | + + + + + Gentamicin, Trough (12/19/2019 9:37 AM PDT) + + + + + + | Component | Value | Ref Range | Performed | Pathologist | | | | | At | Signature | + + + + + + | GENTAMICIN | 0.6Comment: Testing | <2.0 ug/mL | [facility] | | | TROUGH | performed at [facility];[address] | | LABORATORY | | | | [address];[place], [place] | | | | | | [address] | | | | + + + + + + + + | Specimen | + + | Blood | + + + + + + + | Performing | Address | City/State/Zipcode | Phone Number | | Organization | | | | + + + + + | [facility] | [address] | [place] [address] | [phone] | + + + + + MRI [...] 2. 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 [...] 2. 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 CHIEF CREW SCHEDULER territory including a 1.1 x | | [...] | | | + +---------+ + + Iron and Iron Binding Capacity [...] Testing | 20 - 50 % | [facility] | | | Saturation | performed at [facility], [address] | | LABORATORY | | | | [address], | | | | | | [place] [address] | | | | + + + + + + + + | Specimen | + + | Blood | + + + + + + + | Performing | Address | City/State/Zipcode | Phone Number | | Organization | | | | + + + + + | [facility] | [address] | [place] [address] | [phone] | + + + + + Haptoglobin (12/18/2019 5:52 PM PDT) + + + + + + | Component | Value | Ref Range | Performed | Pathologist | | | | | At | Signature | + + + + + + | Haptoglobin | 281Comment: Testing | 34 - 355 mg/dL | [facility] | | | | performed at [facility], | | LABORATORY | | | | [address], [address], | | | | | | [place] [address] | | | | + + + + + + + + | Specimen | + + | Blood | + + + + + + + | Performing | Address | City/State/Zipcode | Phone Number | | Organization | | | | + + + + + | [facility] | [address] | [place] [address] | [phone] | + + + + + Ferritin (12/18/2019 5:52 PM PDT) + + + + + + | Component | Value | Ref Range | Performed | Pathologist | | | | | At | Signature | + + + + + + | Ferritin | 705 (H)Comment: Testing | 30 - 400 ng/mL | [facility] | | | | performed at [facility], | | LABORATORY | | | | [address], | | | | | | [facility] [address] | | | | + + + + + + + + | Specimen | + + | Blood | + + + + + + + | Performing | Address | City/State/Zipcode | Phone Number | | Organization | | | | + + + + + | [facility] | [address] | [place] [address] | [phone] | + + + + + Hemoglobin [...] [facility] | | | | performed at [facility] | | LABORATORY | | | | [facility];[place], [place] | | | | | | [address] | | | | + + + + + + + + | Specimen | + + | Blood | + + + + + + + | Performing | Address | City/State/Zipcode | Phone Number | | Organization | | | | + + + + + | [facility] | [address] | [place] [address] | [phone] | + + + + + Fecal Hemoglobin (12/18/2019 5:30 PM PDT) + + + + + + | Component | Value | Ref Range | Performed | Pathologist | | | | | At | Signature | + + + + + + | FECAL | NEGATIVEComment: Testing | NEG | [facility] | | | OCCULT BLD | performed at [facility];[address] | | LABORATORY | | | | [address];[place] | | | | | | [address] | | | | + + + + + + + + | Specimen | + + | | + + + + + + + | Performing | Address | City/State/Zipcode | Phone Number | | Organization | | | | + + + + + | [facility] | [address] | [place] [address] | [phone] | + + + + + Red Blood Cells (PRBC) - Transfuse (12/18/2019 4:35 PM PDT)CT Maxillofacial wo Contrast (0 12/18/2019 2:37 PM PDT) + + | Specimen [...] Procedure Note | + + | Juan, [id number] - 12/18/2019 6:01 PM PDT | | [...] | | | + +---------+ + + Red Blood Cells (PRBC) - Transfuse (12/18/2019 1:08 PM PDT)TSH, Reflex Free T4 (12/18/2019 11:52 AM PDT) + + + + + + | Component | Value | Ref Range | Performed | Pathologist | | | | | At | Signature | + + + + + + | TSH | 1.380Comment: Testing | 0.450 - 5.100 | [facility] | | | | performed at [facility];888 | uIU/mL | LABORATORY | | | | [place] | | | | | | [address] | | | | + + + + + + + + | Specimen | + + | Blood | + + + + + + + | Performing | Address | City/State/Zipcode | Phone Number | | Organization | | | | + + + + + | [facility] | [address] | [place] [address] | [phone] | + + + + + PATHOLOGY CONSULT REQUEST (12/18/2019 11:52 [...] [facility]- | | | | | | [id number] | | | | | | [facility] | | | | | | [facility] | | | | | | [place] [address] | | | | + + + [...] [place], | | | | | | [place].Testing performed at | | | | | | [facility], [address], | | | | | | [facility] [address], [facility] | | | | | | [address] | | | | + + + + + + + + | Specimen | + + | | + + + + + + + | Performing | Address | City/State/Zipcode | Phone Number | | Organization | | | | + + + + + | [facility] | [address] | [place] [address] | [phone] | + + + + + Retic [...] | | | Reticulocyt | performed at [facility], [address] | | LABORATORY | | | [address] Count | [place], | | | | | | [place] [address] | | | | + + + + + + + + | Specimen | + + | Blood | + + + + + + + | Performing | Address | City/State/Zipcode | Phone Number | | Organization | | | | + + + + + | [facility] | [address] | [place] [address] | [phone] | + + + + + Lactate Dehydrogenase (12/18/2019 11:52 AM PDT) + + + + + + | Component | Value | Ref Range | Performed | Pathologist | | | | | At | Signature | + + + + + + | LDH TOTAL | 244Comment: Testing | 120 - 246 U/L | [facility] | | | | performed at [facility];[address] | | LABORATORY | | | | [address];[place] | | | | | | [address] | | | | + + + + + + + + | Specimen | + + | Blood | + + + + + + + | Performing | Address | City/State/Zipcode | Phone Number | | Organization | | | | + + + + + | [facility] | [address] | [place] [address] | [phone] | + + + + + CBC no Differential (12/18/2019 5:54 AM PDT)Only the most recent of 2 results within the period is included. + + + + + [...] | | | READ BACK BY: JIMMY alaniz/dL | LABORATORY | | | | D./9RP [id number] VL | | | | | | [...] LABORATORY | | | | performed at [facility], [address] | | | | | [address], | | | | | | [place] [address] | | | | + + + + + + + + | Specimen | + + | Blood | + + + + + + + | Performing | Address | City/State/Zipcode | Phone Number | | Organization | | | | + + + + + | [facility] | [address] | [place] [address] | [phone] | + + + + + Vancomycin Level (12/18/2019 5:54 AM PDT) + + + + + + | Component | Value | Ref Range | Performed | Pathologist | | | | | At | Signature | + + + + + + | Vancomycin | 11.1Comment: Testing | ug/mL | [facility] | | | Random, | performed at [facility];[address] | | LABORATORY | | | Serum | [address];[place] | | | | | | [address] | | | | + + + + + + + + | Specimen | + + | Blood | + + + + + + + | Performing | Address | City/State/Zipcode | Phone Number | | Organization | | | | + + + + + | [facility] | [address] | [place] [address] | [phone] | + + + + + Culture, Blood (12/16/2019 7:25 PM PDT)Only the most recent of 2 results within the time dinesh payne is included. + + + + + [...] Special | Testing performed at | | [facility] | | | Requests | [facility];[address] | | LABORATORY | | | | [place] [address] | | | | + + + + + + | RESULT | NO GROWTH 6 DAYS | | [facility] | | | | | | LABORATORY | | + + + + + + | RESULT | Testing performed at | | [facility] | | | | [facility], [address] | | LABORATORY | | | | [place] | | | | | | [id number]: Testing | | | | | | performed at [facility], [address] | | | | | [address] [place] | | | | | | [address] | | | | + + + + + + + + | Specimen | + + | Blood - Peripheral | | blood specimen | | (specimen) | + + + + + + + | Performing | Address | City/State/Zipcode | Phone Number | | Organization | | | | + + + + + | [facility] | [address] | [place] [address] | [phone] | + + + + + ECHO Complete (12/16/2019 9:35 AM PDT)Only the most recent of 2 results within the time margarette maier is included. + + + | Narrative | Performed At | + + + | ECHO DONE AT | | | [facility] | | + + + Troponin I (11/01/2019 11:54 AM PDT)Only the most recent of 5 results within the time federica craig is included. + + + + + [...] | | | | | | [employer] | | | | | [...] [address] | [place] | [phone] | | [facility] | | [address] | | | - LABORATORY | | [...] | | A1c | | | [facility] | | [...] + | [facility] | [address] | [place] | [phone] | | [facility] | | [address] | | | - LABORATORY | | | | + + + + + Procalcitonin (10/31/2019 12:08 PM PDT) + + + + + + | Component | Value | Ref Range | Performed | Pathologist | | | | | At | Signature | + + + + + + | Procalciton | 0.68 (H) | <=0.50 ng/mL | [facility] | | | in | | | [facility] | | [...] + | [facility] | [address] | [place] | [phone] | | [facility] | | [address] | | | - LABORATORY | | | | + + + + + Ammonia (10/31/2019 11:53 AM PDT) + +---------+ + + + | Component | Value | Ref Range | Performed | Pathologist | | | | | At | Signature | + +---------+ + + + | Ammonia | <10 (L) | 11 - 32 umol/L | [facility] | | | | | | [facility] [...] [address] | [place] | [phone] | | [facility] | | [address] | | | - LABORATORY | | [...] + | [facility] | [address] | [place] | [phone] | | [facility] | | [address] | | | - LABORATORY | | | | + + + + + C-Reactive Protein (10/31/2019 11:48 AM PDT) + + + + + + | Component | Value | Ref Range | Performed | Pathologist | | | | | At | Signature | + + + + + + | CRP | 80.90 (H) | <10.00 mg/L | [facility] | | | | | | [facility]. [...] [address] | [place] | [phone] | | [facility] | | [address] | | | - LABORATORY | | [...] [address] | [place] | [phone] | | [facility] | | [address] | | | - LABORATORY | | [...] 238 (H)Comment: New | <100 pg/mL | [facility] | | | | method in use as of | | [facility] | | | | July 10, 2018. [...] [address] | [place] | [phone] | | [facility] | | [address] | | | - LABORATORY | | [...] in | 12 - 53 U/L | [facility] | | | | use as of July 10 | | [facility] | | | | 2018. Check reference [...] + | [facility] | [address] | [place], [place] | [phone] | | [facility] | | [address] | | | - LABORATORY | | [...] [address] | [place] | [phone] | | [facility] | | [address] | | | - LABORATORY | | [...] | | | | | mmol/L | [facility] | | | | | | MEDICAL | | | | | | CENTER - | | | | | | LABORATORY | | + + + + + + | K | 4.1 | 3.4 - 5.1 | [facility] | | | | | mmol/L | [facility] | | | | [...] 20 | 9 - 23 mg/dL | [facility] | | | | | | [facility] | | | | | | MEDICAL | | | | | | CENTER - | | | | | | LABORATORY | | + + + + + + | Creatinine | 1.16 | 0.70 - 1.30 | [facility] | | | | | mg/dL | [facility] | | | | | | MEDICAL | | | | | | CENTER - | | | | | | LABORATORY | | + + + + + + | eGFR, | >60Comment: GLOMERULAR | >=60 | [facility] | | | non- | FILTRATION | mL/min/1.73m2 | [facility] | | | [place] | RATE,ESTIMATED | | MEDICAL | | | | mL/min/1.52o5Ahhh than | | CENTER - | | [...] | | bulin Ratio | | | [facility] | [...] ST. | [address] | [place] | [phone] | | [facility] | | [address] | | | - LABORATORY | | | | + + + + + RHYTHM ECG, REPORT (10/31/2019 11:30 AM PDT)Only the most recent of 2 results within the ti nc period is included. + + + | Narrative | Performed At | + + + | Aki Capone MD 10/31/2019 1:02 PM ECG Rhythm Report | | | Date/Time: 10/31/2019 11:47 AM Performed by: Aki Capone MD | | | Authorized by: Aki Capone MD ECG reviewed by ED Physician | | | in the absence of a legal intern: yes Previous ECG: Previous | | | [...] +--------+ +---------+--------+ | MEDICARE | MEDICA | [id number] | 10/13/19 | [phone] | | Medica | | | RE | | 14-Pre | 5 | | re | | | PART A | | sent | | | | | | AND B | | | | | | + +--------+ +--------+ +---------+--------+ | MEDICARE | MEDICA | [id number] | 10/13/19 | [phone] | | Medica [...] | | [address] | | [place] | al/Fam | | 1951 | [phone] | [place] [address] | | | juice | | | 0 (Home) | | + +--------+ +--------+ + + | Reilly Hamm | Person | Self | [birth year] | [address] | | [place] | al/Fam | | 1951 | [phone] | [place] [address] | | | juiec | | | 0 (Home) | | + +--------+ +--------+ + + Advance Directives + + + + + | Type | Date Recorded | Patient | Explanation | | | | 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
--- OUTSIDE RECORDS SUMMARY | ~2020-01-05 | XMS | Encounter Summary ---
Demographics + + + | Address | [address] | | | [place] [address] | + + + | Home Phone | | + + + | Preferred Language | Unknown | + + + | Marital Status | | + + + | Congregation Affiliation | Unknown | + + + | Race | Unknown | + + + | Ethnic Group | Not or | + + + Author + + + | Author | [facility] | | | and Paulinoana | + + + | Organization | [facility] | | | [...] | | | | | [place] [address] | | + + + + + | Alvaro Newton | ECON | Unknown | | + + + + + Care Team Providers + +------+ + | Care Exceptional Children Teacher Name | Role | Phone | + [...] | | | | Diagnoses | | [place], | | | | | Acute | | Jeet Aaron MD | | | | | bacterial | | [address] | | | | | endocarditis | | [address] | | | | | | | [place] | | | | | Endocarditis | | [place] | | | | | of mitral | | [address] Phone: | | | | | valve | | [phone] | | | | | Severe | | Fax: | | | | | mitral | | [phone] | | | | | regurgitatio | [...] + + | 12/18/ | Anesthesia | [facility] | Cam Nagel | | | 2020 | Event | [facility] | MD [address] | | | | | ECHOCARDIOGRAPHY | Varinder Horowitz | | | | | [address] | [place] [address] | | | | | [place], [place] | [phone] | | | | | [address] | | | | | | [phone] | | | +--------+ + + + + Anesthesia Record + + + + + | Procedure Name | Responsible | Anesthesia Start | Anesthesia Stop Time | | | Anesthesiologist | Time | | + + + + + | ECHO TRANSESOPHAGEAL | Cam Nagel, | 12/19/19 1307 | 12/19/19 0573 | | (ADALI) | | | | + + + + + +----+---+ + + | Da | T | Event | Comment | | te | i | | | | | m | | | | | e | | | +----+---+ + + | 08 | 1 | An Start | Reassessment prior to anesthesia induction/procedure. | | /0 | 3 | | | | 7/ | 0 | | | | 20 | 7 | | | | 20 | | | | +----+---+ + + | | 1 | First | | | | 3 | Inc/Proc St | | | | 1 | | | | | 5 | | | +----+---+ + + | | 1 | Quick Note | | | | 3 | | | | | 2 | | | | | 9 | | | +----+---+ + + | | 1 | an stop | | | | 3 | data | | | | 3 | | | | | 2 | | | +----+---+ + + | | 1 | An Stop | Patient handed off to recovery nurse. | | | 3 | | | | | 3 | | | +----+---+ + + +------+ | Meds | +------+ + + + | Name | Total | + + + | propofol | 60 mg | + + + | propofol infusion | 30.59 mg | + + + | ePHEDrine | 15 mg | + + + + + | Name | + + | Secondary O2 Flow Rate | + + + + | No blood administrations on file. | + + +--------+ + + + | Type | Details | Placement | Removal | +--------+ + + + | Periph | 12/17/19; 1212; Left; Posterior | 12/17/19 1212 by | 12/25/19 0915 by | | agusto | (dorsal); Forearm; 20 gauge; | Sarika [...] Marcie Bennett RN | | IV | [id number] catheter system; | | | | | [...] encounter OR Notes Anesthesia Postprocedure Evaluation - Cam Nagel MD - 12/19/2019 1:34 PM PDTFor matting of this note might be different from the original. ANESTHESIA POSTANESTHESIA EVALUATION Reilly Hamm 69 y.o. male 1950 [id number] Procedure(s) ECHO TRANSESOPHAGEAL (ADALI) Cooperates? Yes Mental Status Performs simple tasks. Respiratory Satisfactory - Airway patent (self maintained). Cardiovascular Satisfactory - Blood pressure and heart rate acceptable Temperature Satisfactory Pain Satisfactory N/V Control Satisfactory Hydration Satisfactory - No signs of dehydration Adverse Events ADVERSE EVENTS: No adverse events Vitals Value Taken Time Temp 98.9 1334 12/19/2019 Pulse 104 Resp 25 BP 120/56 Arterial Line BP Arterial Line BP 2 SpO2 97 % on RA Electronically signed by Cam Nagel MD 12/19/2019 1:34 PM PDT [facility] Cam Nagel MD at 12/18 1:35 PM PDTAnesthesia Preprocedure Evaluation - Cam Nagel MD - 12/19/2019 12:08 PM PDT ANESTHESIA PREANESTHESIA EVALUATION Reilly Hamm 69 y.o. male 1950 [id number] Procedure(s): ECHO TRANSESOPHAGEAL (ADALI) Medical,anesthesia, drug, allergy histories reviewed, NPO status verified. ECG reviewed. Labs reviewed. (-) perioperative beta-rip/statin not given/taken, Review of Systems / Med History Anesthesia History No anesthesia complications except where noted below. Family Anesthesia History Family Anesthesia Negative except where noted below. Cardiovascular (+) valvular problems/murmurs (severe mitral regurg) : [facility] (+) tobacco use.(+) ex-smoker: 2018. Endocrine (+) Diabetes: type 2. Additional Comments: Hospitalist progress note: Mr. 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 Further work-up has revealed splenic infarcts/emboli on CT imaging. Hospital course has been complicated by acute delir ium and anemia of unclear etiology. Infectious disease has been consulted and patient is no w on broad-spectrum antibiotics. Cardiology has been consulted and is planning for cardiac catheterization and possibly ADALI tomorrow, 12/18. CT surgery has also been consulted for eval uation of mitral valve and possible surgery needed. Physical Exam Airway MP III, TM >3 FB, Mouth opening >2 FB. Neck: limited ROM, extends >30 degrees. Jaw pro trusion normal. Facial hair present: Yes Dental CV Rhythm regular. Rate normal. Pulm Clear to auscultation bilaterally. (+) decreased breath sounds. Neuro grossly normal. Other October 2019: ECG Value Ref Range & Units Status VENTRICULAR RATE EKG 91 BPM ATRIAL RATE 91 BPM P-R INTERVAL 110 ms QRS DURATION 80 ms Q-T INTERVAL 384 ms Q-T INTERVAL (CORRECTED) 472 ms P WAVE AXIS -19 degrees QRS AXIS -20 degrees T AXIS 44 degrees INTERPRETATION TEXT Unusual P axis with short [place] interval, possible ectopic atrial rhythm w ith premature atrial complexes Possible Inferior infarct , age undetermined Long QTc Otherwise normal ECG Today: BMP unremarkable. CBC: 16>10/33<339 Echo: Summary Left ventricle is normal in size [...] enlarged. No previous studies available for comparison. Anesthesia Plan ASA: 3 Type: MAC. Elevated WBC count, concern for bacterial endocardititis Induction: Intravenous. Potential problems: None anticipated. Monitors: Standard ASA monitors. Consent statement: Anesthetic plan, alternatives, risks and benefits discussed with patient. discussed risks t o teeth, drug reaction, heart problems, nausea, respiratory events, sore throat Consenting person understands and agrees to proceed. Electronically Signed by: Cam Nagel MD ESig date/time: 12/19/2019 12:08 PM PDT documented in th is encounter Miscellaneous Notes Anesthesia Post-op Handoff - Cam Nagel MD - 12/19/2019 1:33 PM PDTFormatting o f this note might be different from the original. ANESTHESIA HANDOFF NOTE Reilly Hamm 69 y.o. male 1950 [id number] ECHO TRANSESOPHAGEAL (ADALI) HANDOFF NOTE Handoff Protocol Used: post-procedure handoff [...] of report from receiving team Patient Location: Phase II Condition: alert, awake and oriented Airway/O2: no supplemental O2 The significant anesthesia concerns and VS in Epic were reviewed with the receiving team. Cam Nagel MD 12/19/2019 1:33 PM PDT [facility] Cam Nagel MD at 12/18 1:33 PM PDTdocumented in this encounter Plan of Treatment +--------+---------+ + + + | Date | Type | Specialty | Care Team | Description | +--------+---------+ + + + | 01/07/ | Office | Anticoagulation | Kenroy Greenberg, | | | 2019 | Visit | | [address] | | | | | | [place] | | | | | | [address] | | | | | | | | +--------+---------+ + + + | 01/15/ | Office | Cardiothoracic | Keaton Ernandez, | | | 2019 | Visit | Surgery | [address] | | | | | | [place] | | | | | | [place] [address] | | | | | | [phone] | | | | | | | | +--------+---------+ + + + | 01/20/ | Office | Cardiology | Valarie, | | | 2019 | Visit | | [address] | | | | | | [address] | | | | | | [place] | | | | | | [address] | | | | | | | | +--------+---------+ + + + | 01/20/ | Office | Infectious Diseases | Josh Mckeon DO | | | 2019 | Visit | | [address] | | | | | | [place] [address] | | | | | | [phone] | | | | | | | | +--------+---------+ + + + documented as of this encounter Visit Diagnoses Not on filedocumented in this encounter Administered Medications + +--------+ +-------+------+------+ | Medication Order | MAR | Action | Dose | Rate | Site | | | Action | Date | | | | + +--------+ +-------+------+------+ | ePHEDrine 5 mg/mL injection | Given | 12/19/19 | 15 mg | | | | Intravenous, PRN, Starting Fri | | 20 1:21 | | | | | 12/19/19 at 1321, Anesthesia | | PM PDT | | | | | Intra-op | | | | | | + +--------+ +-------+------+------+ +---+---+ | | | +---+---+ + +-------+ +-------+---+---+ | propofol (DIPRIVAN) injection | Given | 12/19/19 | 20 mg | | | | Intravenous, PRN, Starting Fri | | 20 1:18 | | | | | 12/19/19 at 1316, Anesthesia | | PM PDT | | | | | Intra-op | | | | | | + +-------+ +-------+---+---+ +-------+ +-------+---+---+ | Given | 12/19/19 | 20 mg | | | | | 20 1:17 | | | | | | PM PDT | | | | +-------+ +-------+---+---+ | Given | 12/19/19 | 20 mg | | | | | 20 1:16 | | | | | | PM PDT | | | | +-------+ +-------+---+---+ +---+---+ | | | +---+---+ + + + + +-------+---+ | propofol infusion (DIPRIVAN) 10 | Rate/Dos | 08/07/20 | 25 | 8.9 | | | mg/mL infusion Intravenous, | e Change | 20 1:20 | mcg/kg/m | mL/hr | | | CONTINUOUS PRN, Starting Fri | | PM PDT | in | | | | 12/19/19 at 1313, Anesthesia | | | | | | | Intra-op | | | | | | + + + + +-------+---+ + + + +-------+---+ | Rate/Dose Change | 12/19/19 | 40 | 14.3 | | | | 20 1:19 | mcg/kg/m | mL/hr | | | | PM PDT | in | | | + + + +-------+---+ | New Bag | 12/19/19 | 50 | 17.8 | | | | 20 1:13 | mcg/kg/m | mL/hr | | | | PM PDT | in | | | + + + +-------+---+ +---+---+ | | | +---+---+ documented in this encounter"
--- OUTSIDE RECORDS SUMMARY | ~2020-01-05 | XMS | Encounter Summary ---
Demographics + + + | Address | [address] | | | [place] [address] | + + + | Home Phone [...] Author + + + | Author | [facility] | | | and Paulinoana | + + + | Organization | [facility] | | | [...] | | | | | [place] [address] | | + + + + + | Alvaro Newton | ECON | Unknown | | + + + + + Care Team Providers + +------+ + | Care Meat Counter Clerk Name | Role | Phone | + +------+ + | Sheng Combs MD | PCP | | + +------+ + Encounter Details +--------+ + + + + | Date | Type | Department | Care Team | Description | +--------+ + + + + | 01/01/ | Orders Only | [facility] | Janessa Macdonald RN | | | 2019 | | PHARMACY SERVICES | | | | | | [address] | | | | | | [address] | | | | | | [place], [place] | | | | | | [address] | | | | | | [phone] | | | +--------+ + + + [...] [place] | | | | | | [address] | | | | | | | | +--------+---------+ + + + | 01/15/ | Office | Cardiothoracic | Keaton Ernandez, | | | 2019 | Visit | Surgery | [address] | | | | | | [place] | | | | | | [place] [address] | | | | | | [phone] | | | | | | | | +--------+---------+ + + + | 01/20/ | Office | Cardiology | Valarie, | | | 2019 | Visit | | [address] | | | | | | [address] | | | | | | [place] | | | | | | [address] | | | | | | | | +--------+---------+ + + + | 01/20/ | Office | Infectious Diseases | Josh Mckeon DO | | | 2019 | Visit | | [address] | | | | | | [place] [address] | | | | | | [phone] | | | | | | | | +--------+---------+ + + + documented as of this encounter Visit Diagnoses Not on filedocumented in this encounter"
--- OUTSIDE RECORDS SUMMARY | ~2020-01-05 | XMS | Encounter Summary ---
Demographics + + + | Address | [address] | | | [place] [address] | + + + | Home Phone | | + + + | Preferred Language | Unknown | + + + | Marital Status | | + + + | Mandaen Affiliation | Unknown | + + + | Race | Unknown | + + + | Ethnic Group | Not or | + + + Author + + + | Author | [facility] | | | and Paulinoana | + + + | Organization | [facility] | | [...] | | | | | [place] [address] | | + + + + + | Alvaro Newton | ECON | Unknown | | + + + + + Care Team Providers + +------+ + | Care Landscaper Name | Role | Phone | + +------+ + | No Physician | PCP | Unavailable | + [...] + + | 10/30/ | Office | [facility] | Alex Frias | Dizziness (Primary | | 2020 | Visit | [facility] [address] | [address] | Dx) | | | | [place] | [address] [place] | | | | | [address] | [place] [address] | | | | | [phone] | [phone] | | | | | | | [...] for this patient. The patient has chosen: [facility]x] [facility].-- [] Other: Reason for triage recommendation: Out of Scope of Practice or Complex Medical Needs Suspected Cardiac: [] Seizures: [] Advanced Respiratory Condition: [] Head Injury with LOC: [] Pre- Problems: [] Victim of Crime: [] Child/Elder Abuse: [] Severe Abdominal Pain: [] "Worst pain in life": [] Need for IV Medication: [] After-hours Radiology Reading needs by [facility]: [] Patient with complex workup needs [...] in this e ncounter Plan of Treatment +--------+---------+ + + + | Date | Type | Specialty | Care Team | Description | +--------+---------+ + + + | 01/07/ | Office | Anticoagulation | Kenroy Greenberg, | | | 2019 | Visit | | [address] | | | | | | [place] | | | | | | [address] | | | | | | | | +--------+---------+ + + + | 01/15/ | Office | Cardiothoracic | Keaton Ernandez, | | | 2019 | Visit | Surgery | [address] | | | | | | [place] | | | | | | [place] [address] | | | | | | [phone] | | | | | | | | +--------+---------+ + + + | 01/20/ | Office | Cardiology | Valarie, | | | 2019 | Visit | | [address] | | | | | | [address] | | | | | | [place] | | | | | | [address] | | | | | | | | +--------+---------+ + + + | 01/20/ | Office | Infectious Diseases | Mike JoshDO | | | 2019 | Visit | | [address] | | | | | | [place] [address] | | | | | | [phone] | | | | | | | [...] | | | ION TEXT | short [place], , possible | | | | | [...] | | | | NICKOLAS ROMERO MD ([id number]) | | | | | | on [...]
--- OUTSIDE RECORDS SUMMARY | ~2020-01-05 | XMS | Encounter Summary ---
Demographics + + + | Address | [address] | | | [place] [address] | + + + | Home Phone | | + + + | Preferred Language | Unknown | + + + | Marital Status | | + + + | Roman Catholic Affiliation | Unknown | + + + | Race | Unknown | + + + | Ethnic Group | Not or | + + + Author + + + | Author | [facility] | | | and Paulinoana | + + + | Organization | [facility] | | | and [...] | | | | | [place] [address] | | + + + + + | Alvaro Newton | ECON | Unknown | | + + + + + Care Team Providers + +------+ + | Care Ground Support Equipment Assembler Name | Role | Phone | + +------+ + | Kandace Physician | PCP | Unavailable | + +------+ + Encounter Details +--------+ + + + + | Date | Type | Department | Care Team | Description | +--------+ + + + + | 12/16/ | Documentati | [facility] | Aimee Vides Chivo, | | | 2020 | on | CARDIOLOGY [place] | [address] | | | | | [address] | [place], [place] | | | | | [place], [place] | [address] | | | | | [address] | | | | | | [phone] | | | +--------+ + + + [...] [place] | | | | | | [address] | | | | | | | | +--------+---------+ + + + | 01/15/ | Office | Cardiothoracic | Keaton Ernandez, | | | 2019 | Visit | Surgery | [address] | | | | | | [place] | | | | | | [place] [address] | | | | | | [phone] | | | | | | | | +--------+---------+ + + + | 01/20/ | Office | Cardiology | Valarie, | | | 2019 | Visit | | [address] | | | | | | [address] | | | | | | [place] | | | | | | [address] | | | | | | | | +--------+---------+ + + + | 01/20/ | Office | Infectious Diseases | Josh Mckeon DO | | | 2019 | Visit | | [address] | | | | | | [place] [id number] | | | | | | [phone] | | | | | | | [...] + + documented in this encounter Results ECHO Complete (12/16/2019 9:35 AM PDT) + + + | Narrative | Performed At | + + + | ECHO DONE AT | | | [facility] | | + + + documented in this encounter Visit Diagnoses Not on filedocumented in this encounter Additional Health Concerns + + + + + | Infection | Onset Date | Last Indicated | Resolved Time | + + + + + | Rule out COVID-19 | 12/16/2019 | 12/16/2019 | 12/17/2019 12:22 AM | | | | | PDT | + + + + + documented as of this encounter"
--- OUTSIDE RECORDS SUMMARY | ~2020-01-05 | XMS | Encounter Summary ---
Demographics + + + | Address | [address] | | | [place] [address] | + + + | Home Phone | | + + + | Preferred Language | Unknown | + + + | Marital Status | | + + + | Druze Affiliation | Unknown | + + + | Race | Unknown | + + + | Ethnic Group | Not or | + + + Author + + + | Author | [facility] | | | and Paulinoana | + + + | Organization | [facility] | | | and [...] | | | | | [place] [address] | | + + + + + | Alvaro Newton | ECON | Unknown | | + + + + + Care Team Providers + +------+ + | Care E Learning Coordinator Name | Role | Phone | + [...] + + | 10/30/ | Hospital | [facility] | Aki Capone, | Elevated troponin I | | 2019 - | Encounter | [facility] | [address] | level (Primary Dx); | | | | [address] | [place] | Abnormal ECG; | | 10/31/ | | [place] [id number] | [address] | Fatigue, unspecified | | 2019 | | [phone] | | type; Generalized | | | | | Denzel Pryor MD | weakness | | | | | [address] | | | | | | [place] | | | | | | [address] | | | | | | | [...] Pryor MD - 11/01/2019 1:44 PM PDT [facility] [place] HOSPITALIST DISCHARGE SUMMARY Pt. Name/Age/: Reilly Hamm [...] months. He was prescribed low-dose aspirin at [facility]. Otherwise he was stable clinically at [...] Denzel Pryor MD, 11/01/2019 1:44 PM PDT [facility] Portions of this chart may have been created with [employer] voice recognition software. Occasi onal wrong-word or sound-alike substitutions may have occurred due to the inherent mcgee itations of voice recognition software. Please read the chart carefully and recognize, using context, where these substitutions have occurred documented in this enco unter Discharge Instructions AttachmentsThe following attachments cannot be sent through Care Everywhere.Weakness (Uncer tain Cause) (Sammarinese)documented in this encounter Medications at Time of [...] Pryor MD - 10/31/2019 2:14 PM PDT [place], [place] HOSPITALIST HISTORY & PHYSICAL Patient: Reilly Hamm : 1950: Age: 69 y.o. MedRec: [id number] Admission date: 10/31/2019 Hospital day # : [...] skin brakes Neuro: Face symmetric, tongue midline, lacing string cutter equal, no pronator drift, motor and sensory [...] FULL CODE Disposition: admit to inpatient care [facility] Documentation I expect this patient will be hospitalized for greater than 2 midnights and expect the post -hospital plan to be discharged to home. Electronically signed by: Denzel Pryor MD 10/31/2019 2:14 PM PDT [facility] Portions of this chart may have been created with Buf[employer] voice recognition software. Occasi onal wrong-word or sound-alike substitutions may have occurred due to the inherent mcgee itations of voice recognition software. Please read the chart carefully and recognize, using context, where these substitutions have occurred documented in this enco unter ED Notes Irene Lyles RN - 10/31/2019 11:58 AM PDTThis RN assumed care of the pt at this time a fter receiving report from Perla DE LA CRUZ Perla Hanson RN - 10/31/2019 11:33 AM PDTWeakness for [...] 5 weeks. The patient was seen at [facility] and sent to the emergency department for further work-up. Apparently the patient does not regularly receive medical care and has not seen a doctor in over 40 years. 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 About 1 month prior to a rrival, he was out helping his son Flakita hickey. He was working outside and intense hot [...] chest. Medical Decision Making EMS notes and senior care records if applicable/available. Pertinent labs and imaging stud ies were reviewed (see above). Medication and allergy lists reviewed in [facility]. Nursing notes and old records were reviewed if available within [facility]. ER course: 11:30 AM PDT - [...] of Cardiology who recommends admission to the [facility] and trending of his troponin ECG Rhythm Report Date/Time: 10/31/2019 10:56 AM Performed by: Aki Capone MD Authorized by: Aki Capone MD ECG reviewed by ED Physician in the absence of a admissions clerk: yes Previous ECG: Previous ECG: Unavailable Interpretation: [...] ED Physician in the absence of a admissions clerk: yes Previous ECG: Previous ECG: Compared to [...] on file Discharge References/Attachments Weakness (Uncertain Cause) (Sammarinese) Aki Capone MD 10/31/19 1302 documented in this e ncounter Miscellaneous Notes Plan of Care - Lilliana Lutz RN - 11/01/2019 1:36 PM PDTFree from falls/injury, ani ls appropriately to make needs known, alert/oriented x4. Pt signed ama form. IV removed. Bel ongings sent with pt. lan of Angy Rizzo - 11/01/2019 10:32 AM PDTDischarge Planning: This Asst spoke with Rafael and his daughter Alvaro Hoang at his bedside regarding discharge p lans. Rafael reports he lives in [place] with his Nathalie. He reports no steps [...] with one either. His pharmacy preference is [facility]. Rafael does not anticipate any discharge needs. [...] [place] | | | | | | [address] | | | | | | | | +--------+---------+ + + + | 01/15/ | Office | Cardiothoracic | Keaton Ernandez, | | | 2019 | Visit | Surgery | [address] | | | | | | [address] | | | | | | [place] [address] | | | | | | [phone] | | | | | | | | +--------+---------+ + + + | 01/20/ | Office | Cardiology | Valarie, | | | 2019 | Visit | | [address] | | | | | | [address] | | | | | [place] | | | | | | [address] | | | | | | | | +--------+---------+ + + + | 01/20/ | Office | Infectious Diseases | Josh Mckeon DO | | | 2019 | Visit | | [address] | | | | | | [place] [address] | | | | | | [phone] | | | | | | | [...] | | | | | | [employer] | | | | | [...] [address] | [place] | [phone] | | [facility] | | [address] | | | - LABORATORY | | [...] | | | | | | [employer] | | | | | [...] + + | [facility] | [address] | [place] | [phone] | | [facility] | | [address] | | | - LABORATORY | | [...] [address] | [place] | [phone] | | [facility] | | [address] | | | - LABORATORY | | | | + + + + + Magnesium (11/01/2019 4:34 AM PDT) + +-------+ + + + | Component | Value | Ref Range | Performed | Pathologist | | | | | At | Signature | + +-------+ + + + | Magnesium | 2.1 | 1.6 - 2.6 mg/dL | [facility] | | | | | | ST. [...] + | [facility] | [address] | [place] | [phone] | | [facility] | | [address] | | | - LABORATORY | | [...] [facility] | | | | | [facility] | | | | | | [facility]ICAL | | | | | | CENTER - | | | | | | LABORATORY | | + + + + + + | MCV | 85.2 | 83.0 - 101.0 fL | [facility] | | | | | | [facility] [...] | nRBC | | K/uL | [facility] | [...] + | [facility] | [address] | [place] | [phone] | | [facility] | | [address] | | | - LABORATORY | | [...] | | | | mmol/L | [facility] | | | | [...] | non- | FILTRATION | mL/min/1.73m2 | [facility] | | | [employer] | RATE,ESTIMATED | | MEDICAL | | | | mL/min/1.11p9Vglo than | | CENTER - | | [...] | | | | | mg/dL | [facility] | | | | | | MEDICAL | | | | | | CENTER - | | | | | | LABORATORY | | + + + + + + | BUN/Creatin | 17.9 | | [facility] | | | ine Ratio | | | . [facility] | | | | | | [...] [address] | [place] | [phone] | | [facility] | | [address] | | | - LABORATORY | | [...] | | | | | | [employer] | | | | | [...] [address] | [place] | [phone] | | [facility] | | [address] | | | - LABORATORY | | [...] | [address] | [place] | [phone] | | [facility] | | [address] | | | - LABORATORY | | [...] | | | | | | [employer] | | | | | [...] 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 | | | Procedure Type of Study [...] Number 428 | | SUSHIL Patient Number [id number] Date of Study 10/31/2019 Visit | | Number [id number] Referring Physician ALICE BATES Accession | | [id number] Auto Rental Clerk KARIME AVITIA Number Date of | | 1950 Interpreting SAMUEL BLAKELY MD | | Physician Age 69 year(s) 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 | [place] | [phone] | | [facility] | | [address] | | | - LABORATORY | | [...] + | [facility] | [address] | [place] | [phone] | | [facility] | | [address] | | | - LABORATORY | | [...] | | Cells | | M/uL | [facility] | | | | [...] | Immature | | K/uL | [facility] | | | Granulocyte | | | [...] [address] | [place] | [phone] | | [facility] | | [address] | | | - LABORATORY | | [...] LDL, | 110 | <=130 mg/dL | [facility] | | | Calculated | | | [facility] | | [...] [address] | [place] | [phone] | | [facility] | | [address] | | | - LABORATORY | | [...] [facility] | | | | | | ST. [...] | + + + + + | [facility] | [address] | [place] | [phone] | | [facility] | | [address] | | | - LABORATORY | | [...] use as of July 10, | | [facility] | | | | 2018. Check reference [...] | + + + + + | [facility] | [address] | [place] | [phone] | | [facility] | | [address] | | | - LABORATORY | | | | + + + + + CK Total (10/31/2019 11:48 AM PDT) + +--------+ + + + | Component | Value | Ref Range | Performed | Pathologist | | | | | At | Signature | + +--------+ + + + | CK TOTAL | 25 (L) | 46 - 171 U/L | [facility] | | | | | | ST. [...] [address] | [place] | [phone] | | [facility] | | [address] | | | - LABORATORY | | [...] 238 (H)Comment: New | <100 pg/mL | [facility] | | | | method in use as of | | [facility] | | | | July 10, 2018. [...] + | [facility] | [address] | [place] | [phone] | | [facility] | | [address] | | | - LABORATORY | | | | + + + + + Magnesium (10/31/2019 11:48 AM PDT) + +-------+ + + + | Component | Value | Ref Range | Performed | Pathologist | | | | | At | Signature | + +-------+ + + + | Magnesium | 2.2 | 1.6 - 2.6 mg/dL | [facility] | | | | | | [facility]. [...] [address] | [place] | [phone] | | [facility] | | [address] | | | - LABORATORY | | [...] | | | | uIU/mL | [facility] | | | | [...] ST. | [address] | [place], [place] | [phone] | | [facility] | | [address] | | | - LABORATORY | | [...] [address] | [place] | [phone] | | [facility] | | [address] | | | - LABORATORY | | [...] | | | | | | [employer] | | | | | [...] [address] | [place] | [phone] | | [facility] | | [address] | | | - LABORATORY | | [...] | | | | mmol/L | [facility] | | | | | | MEDICAL | | | | | | CENTER - | | | | | | LABORATORY | | + + + + + + | K | 4.1 | 3.4 - 5.1 | [facility] | | | | | mmol/L | [facility] | | | | [...] mL/min/1.73m2 | [facility] | | | [employer] | RATE,ESTIMATED | | MEDICAL | | | | mL/min/1.84l5Bigr than | | CENTER - | | [...] 3.9 | 3.2 - 4.8 g/dL | [facility] | | | | | | [facility] | | | | | | MEDICAL | | | | | | CENTER - | | | | | | LABORATORY | | + + + + + + | Bilirubin | 0.7 | 0.3 - 1.2 mg/dL | [facility] | | | Total | | | [facility] | | [...] [address] | [place] | [phone] | | [facility] | | [address] | | | - LABORATORY | | [...] | | | ION TEXT | short AR, , possible | | | | | [...] | | | | NICKOLAS ROMERO MD ([id number]) | | | | | | on [...] | | in the absence of a admissions clerk: yes Previous ECG: Previous | | | [...] | | in the absence of a admissions clerk: yes Previous ECG: Previous | | | [...] | | | 324 mg, Oral, ONCE, 10/31/19 | | 20 1:43 | | | [...]
--- OUTSIDE RECORDS SUMMARY | ~2020-01-05 | XMS | Encounter Summary ---
Demographics + + + | Address | [address] | | | [place] [address] | + + + | Home Phone | | + + + | Preferred Language | Unknown | + + + | Marital Status | | + + + | Presybeterian Affiliation | Unknown | + + + | Race | Unknown | + + + | Ethnic Group | Not or | + + + Author + + + | Author | [facility] | | | and Paulinoana | + + + | Organization | [facility] | | | [...] | | | | | [place] [address] | | + + + + + | Alvaro Newton | ECON | Unknown | | + + + + + Care Team Providers + +------+ + | Care Application Integration Engineer Name | Role | Phone | + [...] | | | | Diagnoses | | [place], | | | | | Acute | | Jeet Aaron MD | | | | | bacterial | | [address] | | | | | endocarditis | | [address] | | | | | | | [place] | | | | | Endocarditis | | [place] | | | | | of mitral | | [address] Phone: | | | | | valve | | [phone] | | | | | Severe | | Fax: | | | | | mitral | | [phone] | | | | | regurgitatio | | | | | | | n | | | | | | | Procedures | | | | | | | CT L HRT | | | | | [...] + + | 12/19/ | Anesthesia | [facility] | Osmin Man | | | 2019 | Event | [facility] | CDAEN Chandra [address] | | | | | [address] | [address] | | | | | [address] | [place], [place] | | | | | [place], [place] | [address] | | | | | [address] | [phone] | | | | | [phone] | | | +--------+ + + + + Anesthesia Record + + + + + | Procedure Name | Responsible | Anesthesia Start | Anesthesia Stop Time | | | Anesthesiologist | Time | | + + + + + | EXTRACTION TEETH | Osmin Chandra | 12/20/19 0910 | 12/20/19 1206 | | (N/A Mouth) | CADEN Man | | | + + + + + +----+---+ + + | Da | T | Event | Comment | | te | i | | | | | m | | | | | e | | | +----+---+ + + | 08 | 0 | | | | /0 | 8 | | | | 8/ | 5 | | | | 20 | 6 | | | | 20 | | | | +----+---+ + + | | 0 | An Start | Reassessment prior to anesthesia induction/procedure. | | | 9 | | | | | 1 | | | | | 0 | | | +----+---+ + + | | 0 | An | | | | 9 | Induction | | | | 1 | | | | | 4 | | | +----+---+ + + | | 0 | An | | | | 9 | Intubation | | | | 1 | | | | | 4 | | | +----+---+ + + | | 0 | Anesthesia | | | | 9 | Ready | | | | 1 | | | | | 7 | | | +----+---+ + + | | 0 | [place] | | | | 9 | 43-degrees | | | | 2 | | | | | 8 | | | +----+---+ + + | | 0 | First | | | | 9 | Inc/Proc St | | | | 3 | | | | | 2 | | | +----+---+ + + | | 1 | Extubation/ | | | | 2 | Airway LDA | | | | 0 | Removal | | | | 4 | | | +----+---+ + + | | 1 | an stop | | | | 2 | data | | | | 0 | | | | | 6 | | | +----+---+ + + | | 1 | An Stop | Patient handed off to recovery nurse. | | | 0 | | | | | 6 | | | +----+---+ + + +------+ | Meds | +------+ + +---------+ | Name | Total | + +---------+ | fentaNYL | 100 mcg | + +---------+ | lidocaine 2% | 40 mg | + +---------+ | propofol | 70 mg | + +---------+ | rocuronium | 40 mg | + +---------+ | succinylcholine | 100 mg | + +---------+ | dexamethasone | 4 mg | + +---------+ | ondansetron | 4 mg | + +---------+ | ePHEDrine | 5 mg | + +---------+ | phenylephrine | 100 mcg | + +---------+ | neostigmine | 3 mg | + +---------+ | glycopyrrolate | 0.4 mg | + +---------+ | cefTRIAXone (ROCEPHIN) IVPB 2 g | 2 g | + +---------+ | EPINEPHrine 0.1 mg/mL | 0.07 mg | + +---------+ | balanced electrolytes in water | 850 mL | | (PLASMALYTE-148/NORMOSOL-R) | | | infusion | | + +---------+ + + | Name | + + | N2O Flow Rate (L/Min) | + + | O2 Flow Rate (L/Min) | + + | Insp O2 | + + | Exp N2O | + + | Exp SEV | + + | Air Flow Rate [...] Marcie Bennett RN | | IV | zoux-hwe-hyrfsq catheter system; | | | | | 22 gauge; 1; right dorsal wrist; | | | | | lumen/catheter not patent, | | | | | catheter/device intact; 12/24/19; | | | | | 1429 | | | +--------+ + + + | Airway | Placement Date: 12/20/19; | 12/20/19 09 by | 12/20/19 1204 by | | | Placement Time: 913 (created via | Osmin Chandra | Osmin Chandra | | | procedure documentation); Mask | CADEN Man | CADEN Man | | | Ventilation: EZ; Airway Grade: | | | | | 2a; Successful Technique: Mac; | | | | | Laryngoscope Blade Size: 3; | | | | | Attempts: 1; Airway Type: | | | | | endotracheal, oral; Size: 8; | | | | | Trauma: none; Other Equipment: | | | | | stylette; Placement Check: | | | | | exhaled CO2 detection device, | | | | | bilateral chest rise; Removal | | | | | Date: 12/20/19; Removal Time: | | | | | 1204 | | | +--------+ + + + [...] encounter OR Notes Anesthesia Postprocedure Evaluation - Osmin Man CRNA - 12/20/2019 1:07 PM P DT ANESTHESIA POSTANESTHESIA EVALUATION Reilly Hamm 69 y.o. male 1950 [id number] Procedure(s) EXTRACTION TEETH (N/A Mouth) Cooperates? Yes Mental Status Performs simple tasks. Respiratory Satisfactory - Airway patent (self maintained). Cardiovascular Satisfactory - Blood pressure and heart rate acceptable Temperature Satisfactory Pain Satisfactory N/V Control Satisfactory Hydration Satisfactory - No signs of dehydration Adverse Events ADVERSE EVENTS: No adverse events Vitals Value Taken Time Temp 36.7 C (98.1 F) 12/20/19 1240 Pulse 97 12/20/19 1301 Resp 34 12/20/19 1301 BP 121/63 12/20/19 1300 Arterial Line BP Arterial Line BP 2 SpO2 95 % 12/20/19 1301 Vitals shown include unvalidated device data. Electronically signed by Osmin Man CRNA 12/20/2019 1:07 PM PDT [facility] nesthesia Procedure Notes - Osmin Man CRNA - 12/20/19 20 9:36 AM PDTAssociated Order(s): AirwayAnesthesia Airway Placement 12/20/2019 9:14 AM Preprocedure check: patient identified, oxygen, airway assessed, patient reassessment prior to induction, airway equipment checked and suction Mask ventilation: easy Successful technique: Mac Laryngoscope blade size: 3 Airway grade: 2a (Partial view of glottis) Other equipment: stylette Attempts: 1 Airway type: endotracheal and oral REAL Size: 8 Cuffed: cuffed Route, reference point: center of mouth Tube secured with: adhesive tape Trauma: none Tube placement verification: bilateral chest rise and carbon dioxide detection Performing provider: Osmin Man CRNA Authorizing provider: Osmin Man CRNA Please see intraoperative grid for any additional medication documentation. nesthesia Preprocedure Evaluation - Osmin Man CRNA - 12/20/2019 6:29 AM PDT ANESTHESIA PREANESTHESIA EVALUATION Reilly Hamm 69 y.o. male 1950 [id number] Procedure(s): EXTRACTION TEETH (N/A Mouth) Medical,anesthesia, drug, allergy histories reviewed, NPO status verified. ECG reviewed. Labs reviewed. (-) perioperative beta-rip/statin not given/taken, Review of Systems / Med History Anesthesia History No anesthesia complications except where noted below. Family Anesthesia History Family Anesthesia Negative except where noted below. Cardiovascular ADALI from 12/19/2019 found: There is a vegetation on the mitral valve, attached to the atrial surface of the P2 segm ent of the posterior leaflet, measuring 3.1 cm. It is shaggy and irregular, and highly mobil e. There is also a smaller vegetation attached to the ventricular surface of the leaflet. Severe eccentric mitral regurgitation. It causes reversal of systolic flow in the pulmon vikas veins. There is normal left ventricular systolic function. The left ventricular ejection fracti on is 70%. Normal size right ventricle, with normal right ventricular systolic function. Moderately dilated left atrium. There is a small secundum atrial septal defect (ASD), measuring only 2.5 mm, with minima l soff-dc-wznay shunting. There is no evidence of rwink-ny-tuso shunting on the intravenous bubble contrast study. A subsequent coronary angiogram did not find significant coronary artery disease.. Exercise tolerance <4 METS(+) valvular problems/murmurs (severe mitral regurg) : MR . Pulmonary (+) tobacco use.(+) ex-smoker: 2018. Gastrointestinal/Hepatic Negative except where noted below. Renal Negative except where noted below. Endocrine (+) Diabetes: type 2. Hematology/Other Negative except where noted below. Cancer Negative except where noted below. Neuromuscular (+) CVA. 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 Today he will have de ntal extractions in preparation for mitral valve replacement. Physical Exam Airway MP III, TM >3 FB, Mouth opening >2 FB. Neck: full ROM, extends >30 degrees. Jaw protru daniel normal. Dental grossly normal except where noted below. CV cardiovascular normal Rhythm regular. Rate normal. Pulm Clear to auscultation bilaterally. Neuro grossly normal. Anesthesia Plan ASA: 4 Type: General. High risk due to acute severe mitral valve regurgitation and significant ve getations in the setting of multiple strokes. Induction: Intravenous. Potential problems: Ongoing infection, other. Monitors: Standard ASA monitors. documented in this encounter Miscellaneous Notes Anesthesia Post-op Handoff - Osmin Man CRNA - 12/20/2019 12:10 PM PDTFormatt ing of this note might be different from the original. ANESTHESIA HANDOFF NOTE Reilly Hamm 69 y.o. male 1950 [id number] EXTRACTION TEETH (N/A Mouth) HANDOFF NOTE Handoff Protocol Used: post-procedure handoff [...] report from receiving team Patient Location: Phase I Condition: responds to stimuli and sedated Airway/O2: face mask with O2 Multimodal analgesia: multimodal analgesia used between 6 hours prior to anesthesia start t o PACU discharge The significant anesthesia concerns and VS in Epic were reviewed with the receiving team. Osmin Man CRNA 12/20/2019 12:10 PM PDT [facility] documented in this encounter Plan of Treatment +--------+---------+ + + + | Date | Type | Specialty | Care Team | Description | +--------+---------+ + + + | 01/07/ | Office | Anticoagulation | Kenroy Greenberg, | | 2019 | Visit | | [facility] [address] [place] [address] | | | | | | [place] [...] | | | | | | [place] [address] | | | | | | [phone] | | | | | | | | +--------+---------+ + + + | 01/20/ | Office | Cardiology | Valarie, | | | 2019 | Visit | | [address] | | | | | | [address] | | | | | | [place] | | | | | | [address] | | | | | | | | +--------+---------+ + + + | 01/20/ | Office | Infectious Diseases | Josh Mckeon DO | | | 2019 | Visit | | [address] | | | | | | [place] [address] | | | | | | [phone] | | | | | | | [...] + + documented in this encounter Results Airway (12/20/2019 9:36 AM PDT) + + [...] medication documentation. | | + + + documented in this encounter Visit Diagnoses Not on filedocumented in this encounter Administered Medications + +---------+ +------+-------+------+ | Medication Order | MAR | Action | Dose | Rate | Site | | | Action | Date | | | | + +---------+ +------+-------+------+ | balanced electrolytes in water | New Bag | 12/20/19 | | 100 | | | (PLASMALYTE-148/NORMOSOL-R) | | 20 12:52 | | mL/hr | | | infusion at 100 mL/hr, | | PM PDT | | | | | Intravenous, CONTINUOUS, Starting | | | | | | | 12/20/19 at 0915, Pre-op | | | | | | + +---------+ +------+-------+------+ + + +---+---+---+ | Continued by Anesthesia [...] | | +---+---+ + +-------+ +------+---+---+ | dexamethasone (DECADRON) 4 | Given | 12/20/19 | 4 mg | | | | mg/mL injection Intravenous, | | 20 9:19 | | | | | PRN, Starting 12/20/19 at 0919, | | AM PDT | | | | | Anesthesia Intra-op | | | | | | + +-------+ +------+---+---+ +---+---+ | | | +---+---+ + +-------+ +------+---+---+ | ePHEDrine 5 mg/mL injection | Given | 12/20/19 | 5 mg | | | | Intravenous, PRN, Starting Sat | | 20 9:40 | | | | | 12/20/19 at 0940, Anesthesia | | AM PDT | | | | | Intra-op | | | | | | + +-------+ +------+---+---+ +---+---+ | | | +---+---+ + +-------+ +---------+---+---+ | EPINEPHrine 0.1 mg/mL syringe | Given | 12/20/19 | 0.01 mg | | | | Intravenous, PRN, Starting Sat | | 20 11:12 | | | | | 12/20/19 at 1021, Anesthesia | | AM PDT | | | | | Intra-op | | | | | | + +-------+ +---------+---+---+ +-------+ +---------+---+---+ | Given | 12/20/19 | 0.01 mg | | | | | 20 10:30 | | | | | | AM PDT | | | | +-------+ +---------+---+---+ | Given | 12/20/19 | 0.05 mg | | | | | 20 10:21 | | | | | | AM PDT | | | | +-------+ +---------+---+---+ +---+---+ | | | +---+---+ + +-------+ +--------+---+---+ | fentaNYL (PF) injection | Given | 12/20/19 | 50 mcg | | | | Intravenous, PRN, Starting Sat | | 20 11:47 | | | | | 12/20/19 at 1122, Anesthesia | | AM PDT | | | | | Intra-op | | | | | | + +-------+ +--------+---+---+ +-------+ +--------+---+---+ | Given | 12/20/19 | 50 mcg | | | | | 20 11:22 | | | | | | AM PDT | | | | +-------+ +--------+---+---+ +---+---+ | | | +---+---+ + +-------+ +--------+---+---+ | glycopyrrolate (FRANCISCO J) | Given | 12/20/19 | 0.4 mg | | | | injection Intravenous, PRN, | | 20 11:33 | | | | | Starting 12/20/19 at 1133, | | AM PDT | | | | | Anesthesia Intra-op | | | | | | + +-------+ +--------+---+---+ +---+---+ | | | +---+---+ + +-------+ +-------+---+---+ | lidocaine (PF) 2% injection | Given | 12/20/19 | 40 mg | | | | Intravenous, PRN, Starting Sat | | 20 9:14 | | | | | 12/20/19 at 0914, Anesthesia | | AM PDT | | | | | Intra-op | | | | | | + +-------+ +-------+---+---+ +---+---+ | | | +---+---+ + +-------+ +------+---+---+ | neostigmine (BLOXIVERZ) 1 mg/mL | Given | 12/20/19 | 3 mg | | | | injection Intravenous, PRN, | | 20 11:33 | | | | | Starting 12/20/19 at 1133, | | AM PDT | | | | | Anesthesia Intra-op | | | | | | + +-------+ +------+---+---+ +---+---+ | | | +---+---+ + +-------+ +------+---+---+ | ondansetron (ZOFRAN) injection | Given | 12/20/19 | 4 mg | | | | Intravenous, PRN, Starting Sat | | 20 9:19 | | | | | 12/20/19 at 0919, Anesthesia | | AM PDT | | | | | Intra-op | | | | | | + +-------+ +------+---+---+ +---+---+ | | | +---+---+ + +-------+ +---------+---+---+ | phenylephrine (DESTIN-SYNEPHRINE, | Given | 12/20/19 | 100 mcg | | | | VAZCULEP) 10 mg per mL injection | | 20 11:12 | | | | | Intravenous, PRN, Starting Sat | | AM PDT | | | | | 12/20/19 at 1112, Anesthesia | | | | | | | Intra-op | | | | | | + +-------+ +---------+---+---+ +---+---+ | | | +---+---+ + +-------+ +-------+---+---+ | propofol (DIPRIVAN) injection | Given | 12/20/19 | 70 mg | | | | Intravenous, PRN, Starting Sat | | 20 9:14 | | | | | 12/20/19 at 0914, Anesthesia | | AM PDT | | | | | Intra-op | | | | | | + +-------+ +-------+---+---+ +---+---+ | | | +---+---+ + +-------+ +-------+---+---+ | rocuronium (ZEMURON) injection | Given | 12/20/19 | 10 mg | | | | Intravenous, PRN, Starting Sat | | 20 10:25 | | | | | 12/20/19 at 0925, Anesthesia | | AM PDT | | | | | Intra-op | | | | | | + +-------+ +-------+---+---+ +-------+ +-------+---+---+ | Given | 12/20/19 | 30 mg | | | | | 20 9:25 | | | | | | AM PDT | | | | +-------+ +-------+---+---+ +---+---+ | | | +---+---+ + +-------+ +--------+---+---+ | succinylcholine (ANECTINE) | Given | 12/20/19 | 100 mg | | | | injection Intravenous, PRN, | | 20 9:14 | | | | | Starting 12/20/19 at 0914, | | AM PDT | | | | | Anesthesia Intra-op | | | | | | + +-------+ +--------+---+---+ +---+---+ | | | +---+---+ documented in this encounter"
--- OUTSIDE RECORDS SUMMARY | ~2020-01-05 | XMS | Encounter Summary ---
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 Name | Role | Phone | [...] Description | +--------+---------+ + + + | 12/31/ | Office | [facility] | Kenroy Greenberg, | | | 2019 | Visit | [address] | [employer]IDENTIAL BUILDER [address] | | | | | [place] | [place] | | | | | [address] | [address] | | | | | [phone] | | | +--------+---------+ + + + [...] + + + | Blood Pressure | 118/58 | 01/01/2020 12:20 PM | | | | | PDT | | + + + + + | Pulse | 87 | 01/01/2020 12:20 PM | | | | | PDT | | + + + + + | Temperature | 36.6 C (97.9 F) | 01/01/2020 12:20 PM | | | | | PDT | | + + + + + | Respiratory Rate | - | - | | + + + + + | Oxygen Saturation | 98% | 01/01/2020 12:20 PM | | | | | PDT [...] encounter Progress Notes Kenroy Greenberg ARNP - 01/01/2020 12:00 PM PDTFormatting of this note might be different f rom the original. [facility] Patient Name: Reilly Hamm | Age: 69 y.o. | : 1950 | Medical Record Deloris r:[id number] | Author: ARELY Hou | Date of Encounter: 01/01/2020 Subjective: HPI: Anticoagulation: Patient here for followup [...] as appropriate. ROS: See HPI Objective: BP 118/58 | Pulse 87 | Temp 36.6 C (97.9 F) | SpO2 98% Physical Exam Constitutional: He is oriented to [...] warm and dry. Anticoagulation Summary As of 01/01/2020 INR goal: 1.5-2.5 TTR: INR used for dosin.4 (01/01/2020) Warfarin maintenance plan: 1.5 mg (3 mg x 0.5) every Sat; 3 mg (3 mg x 1) all other days Weekly warfarin total: 19.5 mg Plan last modified: ARELY Agustin (01/01/2020) Next INR check: 01/05/2020 Target end date: 04/12/2020 Anticoagulation Episode Summary INR check location: Preferred lab: Send INR reminders to: Comments: Anticoagulation Care Providers Provider Role Specialty Phone number LEA Cavanaugh Referring Cardiothoracic Surgery [phone] Assessment/Plan: There are no diagnoses linked to this encounter. See Anticoagulation Summary above. Warfarin schedule adjusted. [id number] I spent 30 minutes face to face with the patient, with over 50% spent in counseling and/or coordination of care regarding TEACHING General Information: Coumadin booklet and information sheet provided Reason for taking drug (warfarin vs coumadin) and notify if change Dose and time to take Do not "make up" missed dose instructed to call us Medications and Food: Medication interactions, kody ABX, herbs,vitamins Use tylenol only for pain relief; no extra ASA, Motrin, Aleve, read labels on cold medicati ons Vitamin K food interactions and moderation of these foods Signs and Symptoms of Hyper-Coagulation: Nose bleeds > 5 minutes, bleeding gums, blood in urine or stool,unexplained bruising, traum a or fall,stroke symptoms Importance of calling when: Scheduled for dental work or medical procedures Medical Alert . Calendar and Anticoagulant instructions reviewed with the patient. Electronically signed by: ARELY Hou 01/01/2020 at 12:31 PM PDT Portions of this chart may have been created with [employer] voice recognition software. Occasi onal wrong-word or [...] [place] | | | | | | [address] | | | | | | | | +--------+---------+ + + + | 01/15/ | Office | Cardiothoracic | Keaton Ernandez, | | | 2019 | Visit | Surgery | [facility] [address] | | | | | | [place] | | | | | | [place] [address] | | | | | | [phone] | | | | | | | | +--------+---------+ + + + | 01/20/ | Office | Cardiology | Valarie, | | | 2019 | Visit | | [address] | | | | | | [address] | | | | | | [place] | | | | | | [address] | | | | | | | | +--------+---------+ + + + | 01/20/ | Office | Infectious Diseases | Sidra MckeonianDO | | | 2019 | Visit | | [address] | | | | | | [place] [address] | | | | | | [phone] | | | | | | | [...] in this encounter Results POCT PT/INR fingerstick (01/01/2020 12:24 PM PDT) + +---------+ + + + | Component | Value | Ref Range | Performed | Pathologist | | | | | At | Signature | + +---------+ + + + | INR, POC | 2.4 (A) | 0.9 - 1.2 | | | + +---------+ + + + + + | Specimen | + + | Blood | + + documented in this encounter Visit Diagnoses Not on filedocumented in this encounter
--- OUTSIDE RECORDS SUMMARY | 2020-01-05 22:16 | XMS ---
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 Marv has no Care Guidelines for this patient. [facility] (12 MO.) [facility] T[facility] NOTE: Visits indicate total known visits. ED/C VISIT TRACKING (12 MO.) 01/05/2020 22:13 [facility] [place] TYPE: Emergency COMPLAINT: - RAPID HEART RATE 12/15/2019 13:05 [facility] TYPE: Emergency COMPLAINT: - POSS HEAT STROKE 10/31/2019 11:[address] [facility] TYPE: Emergency DIAGNOSES: - Other specified abnormal findings of blood chemistry - Abnormal electrocardiogram [ECG] [EKG] - Weakness - Other fatigue - weakness INPATIENT VISIT TRACKING (12 MO.) [facility] DIAGNOSES: - Disorder of teeth and supporting structures, unspecified - Other specified postprocedural states - Presence of prosthetic heart valve - endocarditis - Nonrheumatic mitral (valve) insufficiency - Atrioventricular block, first degree - Streptococcal infection, unspecified site - Unspecified streptococcus as the cause of diseases classified - Abnormal weight loss - Bacteremia - Acute and subacute infective endocarditis - Other rheumatic mitral valve diseases - 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 - Bacterial infection, unspecified - Atrial septal defect - Type 2 diabetes mellitus without complications - Infarction of spleen - Unspecified severe protein-calorie malnutrition - Septic arterial embolism 12/15/2019 16:47 [facility] Bat[facility] TYPE: Critical Care COMPLAINT: - SEPSIS DIAGNOSES: - Other specified sepsis - Disease of spleen, unspecified - Metabolic encephalopathy - Contact with and (suspected) exposure to other viral communic - Urinary tract infection, site not specified - Sepsis, unspecified organism - Acute rheumatic endocarditis - Metabolic encephalopathy - Acute rheumatic endocarditis - Disease of spleen, unspecified - Urinary tract infection, site not specified - Other specified sepsis - Contact with and (suspected) exposure to other viral communic 10/31/2019 11:15 [facility] Davina C[facility] TYPE: Medical Surgical DIAGNOSES: - Other fatigue - Abnormal electrocardiogram [ECG] [EKG] - Other specified abnormal findings of blood chemistry - Weakness [email or web address]
[2020-01-05] MEDS ORDERED: FERROUS SULFAT325 MG PO (22:58)
[2020-01-05] MEDS ORDERED: LISINOPRIL2.5 MG PO (22:59)
[2020-01-05] MEDS ORDERED: WARFARIN SODIUM3 MG PO (23:00)
[2020-01-05] MEDS ORDERED: ADULT ASPIRIN R81 MG PO (23:00)
[2020-01-05] MEDS ORDERED: VITAMIN C500 M1 PO (23:00)
--- NOTE | 2020-01-06 11:01 | EKG ---
[facility] [address] [facility] [place] [address] Signed Atrial fibrillation Left axis deviation ST \T\ T wave abnormality, consider anterolateral ischemia Abnormal ECG When compared with ECG of 05-JAN-2020 22:22, (Unconfirmed) Atrial fibrillation has replaced Atrial flutter Vent. rate has decreased BY [address] now depressed in Inferior leads Nonspecific T wave abnormality has replaced inverted T waves in Inferior leads Confirmed by SUMANTH SANDOVAL MD ([id number]) on 01/06/2020 11:01:00 AM Electronically Signed By: SUMANTH SANDOVAL MD 01/06/20 1101 PATIENT NAME: DEMI EDWARD Electrocardiogram DATE OF : 46 PHYSICIAN: SUMANTH SANDOVAL MD REPORT #: [id number] REPORT IS CONFIDENTIAL AND NOT TO BE RELEASED WITHOUT AUTHORIZATION
--- NOTE | 2020-01-06 11:01 | EKG ---
[facility] [address] [facility] [place] [address] Signed Atrial flutter with 2:1 AV conduction Left axis deviation Inferior infarct , age undetermined ST \T\ T wave abnormality, consider anterolateral ischemia Abnormal ECG When compared with ECG of 16-DEC-2019 01:15, Significant changes have occurred Confirmed by SUMANTH SANDOVAL MD ([id number]) on 01/06/2020 11:00:51 AM Electronically Signed By: SUMANTH SANDOVAL MD 01/06/20 1101 PATIENT NAME: DEMI EDWARD Electrocardiogram DATE OF : 46 PHYSICIAN: SUMANTH SANDOVAL MD REPORT #: [id number] REPORT IS CONFIDENTIAL AND NOT TO BE RELEASED WITHOUT AUTHORIZATION
== END 2020-01-06 01:50 | disposition short-term general hospital (02) ==
LOC: ED 22:12
DX: I48.91 Unspecified atrial fibrillation (principal); I48.92 Unspecified atrial flutter; Z87.891 Personal history of nicotine dependence; Z79.899 Other long term (current) drug therapy
CPT/HCPCS: 71045; 80053; 81001; 83605; 85025; 85610; 85730; 93005; 93010; 96361; 96374; 96375; 96376; 99285-25; J7030

== ENCOUNTER 2020-01-24 11:29 | Emergency (ER) | payer MEDICARE ==
[~2020-01-24] VITALS: Ht 165.1 cm; Wt 61.5 kg
[~2020-01-24 11:29] MED LIST: ADULT ASPIRIN R81 MG PO; FERROUS SULFAT325 MG PO; LISINOPRIL2.5 MG PO; VITAMIN C500 M1 PO; WARFARIN SODIUM3 MG PO
--- OUTSIDE RECORDS SUMMARY | 2020-01-24 11:34 | XMS ---
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 Marv has no Care Guidelines for this patient. Clement VISIT COUNT (12 MO.) 1 [facility] 1 [facility] 3 [facility] TOTAL 5 NOTE: Visits indicate total known visits. ED/C VISIT TRACKING (12 MO.) 01/24/2020 11:31 [facility] [place] TYPE: Emergency COMPLAINT: - RAPID HEART RATE 01/06/2020 03:10 [facility] TYPE: Emergency DIAGNOSES: - Afib with RVR - Presence of prosthetic heart valve - Unspecified atrial flutter - Anemia, unspecified - Tachycardia - Acute kidney failure, unspecified - Unspecified atrial fibrillation 01/05/2020 22:13 [facility] [place] TYPE: Emergency COMPLAINT: - RAPID HEART RATE DIAGNOSES: - Tachycardia, unspecified - Unspecified atrial fibrillation - Unspecified atrial flutter - Personal history of nicotine dependence - Other long-term (current) drug therapy 12/15/2019 13:05 [facility] [place] TYPE: Emergency COMPLAINT: - POSS HEAT STROKE 10/31/2019 11:15 [facility] DIAGNOSES: - Other specified abnormal findings of blood chemistry - Abnormal electrocardiogram [ECG] [EKG] - Weakness - Other fatigue - weakness INPATIENT VISIT TRACKING (12 MO.) 01/06/2020 03:10 [facility] TYPE: Internal Medicine DIAGNOSES: - Atrial septal defect - Acute kidney failure, unspecified - Acute and subacute infective endocarditis - Unspecified atrial flutter - Other rheumatic mitral valve diseases - Other acute kidney failure - Unspecified atrial fibrillation - Type 2 diabetes mellitus without complications - Dehydration - Other specified abnormal findings of blood chemistry - Presence of prosthetic heart valve - Anemia, unspecified 12/16/2019 17:49 [facility] TYPE: Internal Medicine DIAGNOSES: - Disorder of [...] exposure to other viral communic 10/31/2019 11:15 [facility] TYPE: Medical Surgical DIAGNOSES: - Other fatigue - Abnormal electrocardiogram [ECG] [EKG] - Other specified abnormal findings of blood chemistry - Weakness [id number]
[2020-01-24] MEDS ORDERED: LISINOPRIL10 MG PO (11:56)
[2020-01-24] MEDS ORDERED: WARFARIN SODIUM3 MG NG (11:57)
[2020-01-24] MEDS ORDERED: METOPROLOL SUC200 MG PO (11:58)
[2020-01-24] MEDS ORDERED: LOVENOX100 MG/1 M SUB-Q (11:59)
[2020-01-24] MEDS ORDERED: CEFTRIAXONE2 G2 IM (11:59)
--- NOTE | 2020-01-25 16:30 | EKG ---
[facility] [address] [place], [place] [address] Signed Normal sinus rhythm Left axis deviation Nonspecific T wave abnormality Abnormal ECG No previous ECGs available Confirmed by BRAIN ROSE DO ([id number]) on 01/25/2020 4:30:20 PM Electronically Signed By: BRAIN ROES DO 01/25/20 1630 PATIENT NAME: DEMI EDWARD Electrocardiogram DATE OF : 46 PHYSICIAN: BRAIN ROSE DO REPORT #: [id number] REPORT IS CONFIDENTIAL AND NOT TO BE RELEASED WITHOUT AUTHORIZATION
== END 2020-01-24 13:23 | disposition home or self-care (01) ==
LOC: ED 11:29
DX: R00.0 Tachycardia, unspecified (principal); Z88.8 Allergy status to other drugs, medicaments and biological substances; Z79.899 Other long term (current) drug therapy; Z79.82 Long term (current) use of aspirin; Z79.01 Long term (current) use of anticoagulants
CPT/HCPCS: 93005; 93010; 99284

== ENCOUNTER 2020-01-26 01:08 | Emergency (ER) | payer MEDICARE ==
[~2020-01-26] VITALS: Ht 165.1 cm; Wt 61.7 kg
[~2020-01-26 01:08] MED LIST changes: +CEFTRIAXONE2 G2 IM; +LISINOPRIL10 MG PO; +LOVENOX100 MG/1 M SUB-Q; +METOPROLOL SUC200 MG PO; +WARFARIN SODIUM3 MG NG
--- OUTSIDE RECORDS SUMMARY | 2020-01-26 01:12 | XMS ---
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 Marv has no Care Guidelines for this patient. EGadiel VISIT COUNT (12 MO.) 1 [facility] 1 [facility] 4 [facility] TOTAL 6 NOTE: Visits indicate total known visits. ED/C VISIT TRACKING (12 MO.) 01/26/2020 01:09 [facility] TYPE: Emergency COMPLAINT: - RAPID HEART RATE 01/24/2020 11:31 [facility] [place] TYPE: Emergency COMPLAINT: - RAPID HEART RATE 01/06/2020 03:10 [facility] TYPE: Emergency DIAGNOSES: - Afib with RVR - Presence of prosthetic heart valve - Unspecified atrial flutter - Anemia, unspecified - Tachycardia - Acute kidney failure, unspecified - Unspecified atrial fibrillation 01/05/2020 22:13 [facility] TYPE: Emergency COMPLAINT: - RAPID HEART RATE DIAGNOSES: - Tachycardia, unspecified - Unspecified atrial fibrillation - Unspecified atrial flutter - Personal history of nicotine dependence - 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 12/15/2019 13:05 [facility] TYPE: Emergency COMPLAINT: - POSS HEAT STROKE [facility] DIAGNOSES: - Other specified abnormal findings of blood chemistry - Abnormal electrocardiogram [ECG] [EKG] - Weakness - Other fatigue - weakness INPATIENT VISIT TRACKING (12 MO.) [facility] DIAGNOSES: - Atrial septal [...] heart valve - Anemia, unspecified [facility]16[facility]2019 17[facility] DIAGNOSES: - Disorder of [...] exposure to other viral communic [facility]2019 [facility] DIAGNOSES: - Other fatigue - Abnormal electrocardiogram [ECG] [EKG] - Other specified abnormal findings of blood chemistry - Weakness [email or web address]
--- NOTE | 2020-01-27 14:01 | EKG ---
[facility] [address] [facility] [facility] [place] [address] Signed Sinus tachycardia Left axis deviation Nonspecific ST and T wave abnormality Abnormal ECG When compared with ECG of 24-JAN-2020 11:39, Vent. rate has increased BY [address] now depressed in Anterior leads Nonspecific T wave abnormality no longer evident in Inferior leads Confirmed by BRAIN ROSE DO ([id number]) on 01/27/2020 2:01:03 PM Electronically Signed By: BRAIN ROSE DO 01/27/20 1401 PATIENT NAME: DEMI EDWARD Electrocardiogram DATE OF : 46 PHYSICIAN: BRAIN ROSE DO REPORT #: [id number] REPORT IS CONFIDENTIAL AND NOT TO BE RELEASED WITHOUT AUTHORIZATION
== END 2020-01-26 03:12 | disposition home or self-care (01) ==
LOC: ED 01:08
DX: I48.92 Unspecified atrial flutter (principal); Z87.891 Personal history of nicotine dependence; Z91.048 Other nonmedicinal substance allergy status; Z79.899 Other long term (current) drug therapy; Z79.82 Long term (current) use of aspirin; Z79.01 Long term (current) use of anticoagulants
CPT/HCPCS: 80053; 83735; 84484; 85025; 85610; 85730; 93005; 93010; 96374; 96375; 99285-25